=== PATIENT | female | born 1935 | race Caucasian/White ===

== ENCOUNTER 2019-08-03 08:54 | Outpatient (RCR) | payer MEDICARE, OTHER, SELFPAY ==
[2019-05-31 11:25] LABS: Basophils Percent Auto 0.6 % (0.2-1.2); Eosinophils Absolute Auto 0.3 K/mm3 (0-0.3); Eosinophils Percent Auto 3.8 % (0-4.4); Hematocrit 42.1 % (37.0-47.0); Hemoglobin 13.4 g/dL (12.0-15.0); Immature Granulocyte Absolute 0.04 K/mm3 (0.00-0.031); Immature Granulocyte Percent A 0.6 % (0-0.5); Lymphocytes Absolute Auto 0.43 K/mm3 (0.9-3.2); Lymphocytes Percent Auto 6.3 % (18.3-44.2); Mean Corpuscular HGB Conc 31.8 g/dl (32-36); Mean Corpuscular Hemoglobin 32.2 pg (26-34); Mean Corpuscular Volume 101.2 fl (80-100); Mean Platelet Volume 10.7 fl (7.4-10.4); Monocytes Absolute Auto 0.5 K/mm3 (0.1-0.6); Monocytes Percent Auto 7.6 % (2.6-8.5); Neutrophils Absolute Auto 5.6 K/mm3 (1.3-6.7); Neutrophils Percent Auto 81.1 % (45.5-73.1); Platelet Count Result 146 k/mm3 (150-375); Red Blood Count 4.16 M/mm3 (4.2-5.4); Red Cell Distribution Width 12.3 % (11.5-14.5); White Blood Count 6.9 K/mm3 (4.5-10.0)
[2019-05-31 11:32] LABS: Add Urine Microscopic? YES; Appearance Urine Cloudy (Clear); Bacteria Urine Trace /hpf; Bilirubin Urine Negative (Negative); Blood Urine Negative (Negative); Color Urine Yellow (Yellow); Glucose Urine UA Negative (Negative); Ketones Urine Negative (Negative); Leukocyte Esterase Ur 2+ LEU/UL (NEGATIVE); Mucus Urine Rare /lpf; Nitrate Urine Negative (Negative); Protein Urine 2+ mg/dL (Negative); Specific Grav Ur 1.023 (1.001-1.035); Squamous Epithelial Cell Urine Few /hpf (Few); Urobilinogen Urine Negative mg/dL (<2.0); WBC Urine >75 /hpf (0-3)
[2019-05-31 11:44] LABS: Albumin Level 3.9 g/dL (3.5-5.1); Blood Urea Nitrogen 22 mg/dL (7-17); Carbon Dioxide 28 mmol/L (22-30); Chloride 103 mmol/L (98-107); Estimated Glomerular Filt Rate > 60; Glucose 106 mg/dL (65-105); Phosphorus 3.6 mg/dL (2.5-4.5); Potassium 4.4 mmol/L (3.4-5.0); Sodium 138 mmol/L (137-145)
[2019-06-02 01:25] LABS: Tacrolimus Prograf 7.9 mcg/L
[2019-07-05 09:37] LABS: Basophils Percent Auto 0.6 % (0.2-1.2); Eosinophils Absolute Auto 0.2 K/mm3 (0-0.3); Eosinophils Percent Auto 2.4 % (0-4.4); Hemoglobin 13.5 g/dL (12.0-15.0); Immature Granulocyte Absolute 0.03 K/mm3 (0.00-0.031); Immature Granulocyte Percent A 0.4 % (0-0.5); Lymphocytes Absolute Auto 0.72 K/mm3 (0.9-3.2); Lymphocytes Percent Auto 10.3 % (18.3-44.2); Mean Corpuscular HGB Conc 32.1 g/dl (32-36); Mean Corpuscular Hemoglobin 32.8 pg (26-34); Mean Corpuscular Volume 101.9 fl (80-100); Mean Platelet Volume 10.9 fl (7.4-10.4); Monocytes Absolute Auto 0.7 K/mm3 (0.1-0.6); Monocytes Percent Auto 10.3 % (2.6-8.5); Neutrophils Absolute Auto 5.3 K/mm3 (1.3-6.7); Platelet Count Result 144 k/mm3 (150-375); Red Blood Count 4.12 M/mm3 (4.2-5.4); Red Cell Distribution Width 12.4 % (11.5-14.5)
[2019-07-05 09:52] LABS: Alanine Aminotransferase 15 U/L (4-35); Albumin Level 4.1 g/dL (3.5-5.1); Alkaline Phosphatase 164 U/L (38-126); Aspartate Amino Transferase 25 U/L (14-36); Bilirubin,Total 0.5 mg/dL (0.2-1.3); Blood Urea Nitrogen 23 mg/dL (7-17); Carbon Dioxide 25 mmol/L (22-30); Chloride 104 mmol/L (98-107); Cholesterol 140 mg/dL (0-200); Estimated Glomerular Filt Rate > 60; Glucose 88 mg/dL (65-105); HDL Direct 62 mg/dL; Phosphorus 3.3 mg/dL (2.5-4.5); Sodium 139 mmol/L (137-145); Triglycerides 126 mg/dL (<150)
[2019-07-05 10:04] LABS: LDL Cholesterol Direct 59 mg/dL
[2019-07-07 16:52] LABS: Tacrolimus Prograf 7.2 mcg/L
[2019-08-03 09:23] LABS: Basophils Absolute Auto 0.1 K/mm3 (0.0-0.1); Basophils Percent Auto 0.8 % (0.2-1.2); Eosinophils Absolute Auto 0.1 K/mm3 (0-0.3); Eosinophils Percent Auto 2.2 % (0-4.4); Hematocrit 41.1 % (37.0-47.0); Immature Granulocyte Absolute 0.03 K/mm3 (0.00-0.031); Immature Granulocyte Percent A 0.5 % (0-0.5); Lymphocytes Absolute Auto 0.75 K/mm3 (0.9-3.2); Lymphocytes Percent Auto 11.9 % (18.3-44.2); Mean Corpuscular HGB Conc 31.6 g/dl (32-36); Mean Corpuscular Hemoglobin 32.2 pg (26-34); Mean Corpuscular Volume 101.7 fl (80-100); Mean Platelet Volume 10.7 fl (7.4-10.4); Monocytes Absolute Auto 0.6 K/mm3 (0.1-0.6); Monocytes Percent Auto 9.4 % (2.6-8.5); Neutrophils Absolute Auto 4.7 K/mm3 (1.3-6.7); Neutrophils Percent Auto 75.2 % (45.5-73.1); Platelet Count Result 147 k/mm3 (150-375); Red Blood Count 4.04 M/mm3 (4.2-5.4); Red Cell Distribution Width 12.4 % (11.5-14.5); White Blood Count 6.3 K/mm3 (4.5-10.0)
[2019-08-03 09:43] LABS: Alanine Aminotransferase 14 U/L (4-35); Albumin Level 4.1 g/dL (3.5-5.1); Alkaline Phosphatase 133 U/L (38-126); Aspartate Amino Transferase 21 U/L (14-36); Bilirubin,Total 0.7 mg/dL (0.2-1.3); Blood Urea Nitrogen 25 mg/dL (7-17); Calcium 10.1 mg/dL (8.4-10.2); Carbon Dioxide 28 mmol/L (22-30); Chloride 103 mmol/L (98-107); Cholesterol 137 mg/dL (0-200); Estimated Glomerular Filt Rate > 60; Glucose 98 mg/dL (65-105); HDL Direct 61 mg/dL; Phosphorus 3.3 mg/dL (2.5-4.5); Potassium 4.5 mmol/L (3.4-5.0); Sodium 140 mmol/L (137-145); Triglycerides 107 mg/dL (<150)
[2019-08-03 09:54] LABS: LDL Cholesterol Direct 63 mg/dL
== END 2019-08-29 23:59 | disposition home or self-care (01) ==
LOC: ANHLAB 08:54
DX: Z94.0 Kidney transplant status (principal); Z79.899 Other long term (current) drug therapy; N30.80 Other cystitis without hematuria
CPT/HCPCS: 36415; 80053; 80061; 80069; 80197; 81001; 84100; 85025; 87077; 87086; 87088; 87186

== ENCOUNTER 2019-08-30 10:34 | Outpatient (RCR) | payer MEDICARE, OTHER, SELFPAY ==
[2019-08-30 11:33] LABS: Basophils Percent Auto 0.6 % (0.2-1.2); Eosinophils Absolute Auto 0.1 K/mm3 (0-0.3); Eosinophils Percent Auto 2.7 % (0-4.4); Hematocrit 39.5 % (37.0-47.0); Hemoglobin 12.7 g/dL (12.0-15.0); Immature Granulocyte Absolute 0.03 K/mm3 (0.00-0.031); Immature Granulocyte Percent A 0.6 % (0-0.5); Lymphocytes Absolute Auto 0.66 K/mm3 (0.9-3.2); Lymphocytes Percent Auto 12.9 % (18.3-44.2); Mean Corpuscular HGB Conc 32.2 g/dl (32-36); Mean Corpuscular Hemoglobin 32.3 pg (26-34); Mean Corpuscular Volume 100.5 fl (80-100); Mean Platelet Volume 11.1 fl (7.4-10.4); Monocytes Absolute Auto 0.6 K/mm3 (0.1-0.6); Monocytes Percent Auto 11.4 % (2.6-8.5); Neutrophils Absolute Auto 3.7 K/mm3 (1.3-6.7); Neutrophils Percent Auto 71.8 % (45.5-73.1); Platelet Count Result 143 k/mm3 (150-375); Red Blood Count 3.93 M/mm3 (4.2-5.4); Red Cell Distribution Width 12.8 % (11.5-14.5); White Blood Count 5.1 K/mm3 (4.5-10.0)
[2019-08-30 11:46] LABS: Albumin Level 4.1 g/dL (3.5-5.1); Blood Urea Nitrogen 26 mg/dL (7-17); Calcium 9.8 mg/dL (8.4-10.2); Carbon Dioxide 23 mmol/L (22-30); Chloride 103 mmol/L (98-107); Estimated Glomerular Filt Rate 53; Glucose 89 mg/dL (65-105); Phosphorus 3.7 mg/dL (2.5-4.5); Potassium 4.9 mmol/L (3.4-5.0); Sodium 137 mmol/L (137-145)
[2019-08-31 18:41] LABS: Tacrolimus Prograf 5.4 mcg/L
== END 2019-11-28 23:59 | disposition home or self-care (01) ==
LOC: ANHLAB 10:34
DX: E78.5 Hyperlipidemia, unspecified (principal); Z94.0 Kidney transplant status; Z79.899 Other long term (current) drug therapy
CPT/HCPCS: 36415; 80069; 80197; 85025

== ENCOUNTER 2020-01-31 09:54 | Outpatient (RCR) | payer MEDICARE, OTHER, SELFPAY ==
[2019-12-03 09:53] LABS: Basophils Percent Auto 0.6 % (0.2-1.2); Eosinophils Absolute Auto 0.2 K/mm3 (0-0.3); Eosinophils Percent Auto 3.3 % (0-4.4); Hematocrit 42.1 % (37.0-47.0); Hemoglobin 13.6 g/dL (12.0-15.0); Immature Granulocyte Absolute 0.02 K/mm3 (0.00-0.031); Immature Granulocyte Percent A 0.4 % (0-0.5); Lymphocytes Absolute Auto 0.53 K/mm3 (0.9-3.2); Lymphocytes Percent Auto 10.4 % (18.3-44.2); Mean Corpuscular HGB Conc 32.3 g/dl (32-36); Mean Corpuscular Hemoglobin 33.2 pg (26-34); Mean Corpuscular Volume 102.7 fl (80-100); Monocytes Absolute Auto 0.5 K/mm3 (0.1-0.6); Monocytes Percent Auto 10.2 % (2.6-8.5); Neutrophils Absolute Auto 3.8 K/mm3 (1.3-6.7); Neutrophils Percent Auto 75.1 % (45.5-73.1); White Blood Count 5.1 K/mm3 (4.5-10.0)
[2019-12-03 09:59] LABS: Alanine Aminotransferase 15 U/L (4-35); Alkaline Phosphatase 167 U/L (38-126); Aspartate Amino Transferase 27 U/L (14-36); Bilirubin,Total 0.7 mg/dL (0.2-1.3); Blood Urea Nitrogen 22 mg/dL (7-17); Calcium 9.7 mg/dL (8.4-10.2); Carbon Dioxide 24 mmol/L (22-30); Chloride 107 mmol/L (98-107); Cholesterol 141 mg/dL (0-200); Estimated Glomerular Filt Rate > 60; Glucose 87 mg/dL (65-105); HDL Direct 62 mg/dL; Phosphorus 2.8 mg/dL (2.5-4.5); Potassium 4.3 mmol/L (3.4-5.0); Sodium 138 mmol/L (137-145); Triglycerides 143 mg/dL (<150)
[2019-12-03 10:10] LABS: LDL Cholesterol Direct 56 mg/dL
[2019-12-06 06:29] LABS: Tacrolimus Prograf 5.5 mcg/L
[2019-12-31 10:23] LABS: Basophils Percent Auto 0.7 % (0.2-1.2); Eosinophils Absolute Auto 0.1 K/mm3 (0-0.3); Eosinophils Percent Auto 2.3 % (0-4.4); Hematocrit 40.2 % (37.0-47.0); Immature Granulocyte Absolute 0.03 K/mm3 (0.00-0.031); Immature Granulocyte Percent A 0.5 % (0-0.5); Lymphocytes Percent Auto 13.3 % (18.3-44.2); Mean Corpuscular HGB Conc 32.3 g/dl (32-36); Mean Corpuscular Hemoglobin 32.6 pg (26-34); Mean Corpuscular Volume 100.8 fl (80-100); Mean Platelet Volume 10.5 fl (7.4-10.4); Monocytes Absolute Auto 0.7 K/mm3 (0.1-0.6); Monocytes Percent Auto 11.3 % (2.6-8.5); Neutrophils Absolute Auto 4.3 K/mm3 (1.3-6.7); Neutrophils Percent Auto 71.9 % (45.5-73.1); Platelet Count Result 140 k/mm3 (150-375); Red Blood Count 3.99 M/mm3 (4.2-5.4); Red Cell Distribution Width 11.9 % (11.5-14.5)
[2019-12-31 10:32] LABS: Alanine Aminotransferase 13 U/L (4-35); Albumin Level 3.9 g/dL (3.5-5.1); Alkaline Phosphatase 135 U/L (38-126); Aspartate Amino Transferase 24 U/L (14-36); Bilirubin,Total 0.5 mg/dL (0.2-1.3); Blood Urea Nitrogen 27 mg/dL (7-17); Calcium 9.4 mg/dL (8.4-10.2); Carbon Dioxide 28 mmol/L (22-30); Chloride 105 mmol/L (98-107); Cholesterol 136 mg/dL (0-200); Estimated Glomerular Filt Rate 60; Glucose 96 mg/dL (65-105); HDL Direct 60 mg/dL; Phosphorus 3.4 mg/dL (2.5-4.5); Potassium 4.6 mmol/L (3.4-5.0); Sodium 136 mmol/L (137-145); Triglycerides 143 mg/dL (<150)
[2019-12-31 10:43] LABS: LDL Cholesterol Direct 56 mg/dL
[2020-01-04 00:10] LABS: Tacrolimus Prograf 5.2 mcg/L
[2020-01-31 10:37] LABS: Basophils Absolute Auto 0.1 K/mm3 (0.0-0.1); Basophils Percent Auto 1.4 % (0.2-1.2); Eosinophils Absolute Auto 0.1 K/mm3 (0-0.3); Eosinophils Percent Auto 2.3 % (0-4.4); Hematocrit 40.5 % (37.0-47.0); Hemoglobin 13.2 g/dL (12.0-15.0); Immature Granulocyte Absolute 0.03 K/mm3 (0.00-0.031); Immature Granulocyte Percent A 0.6 % (0-0.5); Immature Platelet Fraction Pct 3.3 % (0.9-11.2); Lymphocytes Absolute Auto 0.88 K/mm3 (0.9-3.2); Lymphocytes Percent Auto 17.1 % (18.3-44.2); Mean Corpuscular HGB Conc 32.6 g/dl (32-36); Mean Corpuscular Hemoglobin 32.9 pg (26-34); Monocytes Absolute Auto 0.6 K/mm3 (0.1-0.6); Monocytes Percent Auto 12.2 % (2.6-8.5); Neutrophils Absolute Auto 3.4 K/mm3 (1.3-6.7); Neutrophils Percent Auto 66.4 % (45.5-73.1); Platelet Count Result 137 k/mm3 (150-375); Red Blood Count 4.01 M/mm3 (4.2-5.4); Red Cell Distribution Width 12.2 % (11.5-14.5); White Blood Count 5.2 K/mm3 (4.5-10.0)
[2020-01-31 10:49] LABS: Alanine Aminotransferase 16 U/L (4-35); Albumin Level 3.8 g/dL (3.5-5.1); Alkaline Phosphatase 137 U/L (38-126); Anion Gap 10.3 mmol/L (7-16); Aspartate Amino Transferase 27 U/L (14-36); Bilirubin,Total 0.6 mg/dL (0.2-1.3); Blood Urea Nitrogen 27 mg/dL (7-17); Calcium 9.7 mg/dL (8.4-10.2); Carbon Dioxide 24 mmol/L (22-30); Chloride 106 mmol/L (98-107); Cholesterol 134 mg/dL (0-200); Estimated Glomerular Filt Rate > 60; Glucose 90 mg/dL (65-105); HDL Direct 61 mg/dL; Phosphorus 3.6 mg/dL (2.5-4.5); Potassium 4.3 mmol/L (3.4-5.0); Sodium 136 mmol/L (137-145); Triglycerides 117 mg/dL (<150)
[2020-01-31 11:00] LABS: LDL Cholesterol Direct 54 mg/dL
[2020-02-05 11:35] LABS: Tacrolimus Prograf 6.1 mcg/L
== END 2020-03-02 23:59 | disposition home or self-care (01) ==
LOC: ANHLAB 09:54
DX: E78.5 Hyperlipidemia, unspecified (principal); Z94.0 Kidney transplant status; Z79.899 Other long term (current) drug therapy
CPT/HCPCS: 36415; 80053; 80061; 80069; 80197; 84100; 85025; 85055

== ENCOUNTER 2020-03-03 09:13 | Outpatient (RCR) | payer MEDICARE, OTHER, SELFPAY ==
[2020-03-03 10:14] LABS: Basophils Percent Auto 0.7 % (0.2-1.2); Eosinophils Absolute Auto 0.2 K/mm3 (0-0.3); Immature Granulocyte Absolute 0.03 K/mm3 (0.00-0.031); Immature Granulocyte Percent A 0.5 % (0-0.5); Lymphocytes Absolute Auto 0.71 K/mm3 (0.9-3.2); Lymphocytes Percent Auto 12.5 % (18.3-44.2); Mean Corpuscular HGB Conc 33.3 g/dl (32-36); Mean Corpuscular Hemoglobin 33.5 pg (26-34); Mean Corpuscular Volume 100.5 fl (80-100); Mean Platelet Volume 9.9 fl (7.4-10.4); Monocytes Absolute Auto 0.7 K/mm3 (0.1-0.6); Monocytes Percent Auto 11.8 % (2.6-8.5); Neutrophils Percent Auto 71.5 % (45.5-73.1); Platelet Count Result 183 k/mm3 (150-375); Red Blood Count 3.88 M/mm3 (4.2-5.4); Red Cell Distribution Width 11.9 % (11.5-14.5); White Blood Count 5.7 K/mm3 (4.5-10.0)
[2020-03-03 10:26] LABS: Albumin Level 3.6 g/dL (3.5-5.1); Anion Gap 7 mmol/L (8-16); Blood Urea Nitrogen 24 mg/dL (7-17); Calcium 9.5 mg/dL (8.4-10.2); Carbon Dioxide 25 mmol/L (22-30); Chloride 105 mmol/L (98-107); Estimated Glomerular Filt Rate 60; Glucose 105 mg/dL (65-105); Phosphorus 3.1 mg/dL (2.5-4.5); Potassium 4.1 mmol/L (3.4-5.0); Sodium 137 mmol/L (137-145)
[2020-03-06 08:33] LABS: Tacrolimus Prograf 5.3 mcg/L
== END 2020-06-01 23:59 | disposition home or self-care (01) ==
LOC: ANHLAB 09:13
PROVIDERS: PCP Internal Medicine
DX: E78.5 Hyperlipidemia, unspecified (principal); Z94.0 Kidney transplant status; Z79.899 Other long term (current) drug therapy
CPT/HCPCS: 36415; 80069; 80197; 85025

== ENCOUNTER 2020-03-19 14:59 | Emergency (ER) | payer MEDICARE, OTHER, SELFPAY ==
--- NOTE | ~2020-03-19 | CT_ITS ---
EXAMINATION: CT cervical spine wo con EXAM DATE: 03/19/2020 15:49 INDICATION: Fall, neck pain. TECHNIQUE: Spiral CT of the cervical spine was performed without contrast. Axial images were reviewe d. Coronal and sagittal reformatted images were also reviewed. The dose-length product (DLP) for thi s examination was 151.29 mGy-cm. The exposure was tailored according to patient size (auto mA exposu re control), and iterative reconstruction (ASIR) was used as additional dose reduction technique. ere is no prior study for comparison. FINDINGS: There is acute C2 fracture extending from the left lateral mass inferiorly to the right proctor gustavo, with about 5 mm distraction at the left lateral mass. Fracture extends into the C2 right transve rse foramen, for which a CT angiogram carotid arteries is indicated to exclude vertebral artery injur y/dissection. C1 is intact, and there are no other cervical fractures identified. This is a closed po sttraumatic finding, unstable and neurosurgical consult is indicated. IMPRESSION: Acute C2 fracture from left lateral mass through the right lamina and into the right oquendo sverse foramina; unstable type injury. Neurosurgical consult and carotid CT angiogram indicated. I discussed these findings with Daisy Faith MD at 03/19/2020 16:01 CDT. Reviewed, dictated and finalized at location A. IMPRESSION: Acute C2 fracture from left lateral mass through the right lamina a nd into the right transverse foramina; unstable type injury. Neurosurgical cons ult and carotid CT angiogram indicated. I discussed these findings with Daisy Faith MD at 03/19/2020 16:01 CDT.
--- NOTE | ~2020-03-19 | CT_ITS ---
EXAMINATION: CT brain wo con DATE: 03/19/2020 15:49 INDICATION: Head and neck pain. Fall. TECHNIQUE: Computed tomography (CT) of the head was performed without intravenous contrast. The mA wa s adjusted according to patient size. Iterative reconstruction technique was employed. The dose-lengt h product was 605.33 mGy-cm. COMPARISON: Head CT 07/08/2012 FINDINGS: There is an old lacunar infarct in left caudate nucleus. There are scattered areas of low a ttenuation in the cerebral white matter. There is no intracranial hemorrhage, acute infarction, or ab normal intracranial mass lesion. The ventricles are normal in size. There are likely changes of ocula r lens replacement surgeries. There are bilateral optic nerve drusen. The paranasal sinuses are clear . The mastoid air cells are normal. IMPRESSION: 1. 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 2. Worsened moderate nonspecific cerebral white matter disease, which likely represents chronic small vessel ischemic disease. Reviewed, dictated and finalized at location A. IMPRESSION: 1. 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 2. Worsened moderate nonspecific cerebral white matter disease, which likely re presents chronic small vessel ischemic disease.
[2020-03-19 15:07] VITALS: BP 208/89; PULSE 68; RESP 20; TEMP 36.1; O2SAT 98
--- NOTE | 2020-03-19 16:27 | ED.GENADULT ---
HPI - General Adult General Chief complaint: Head Injury Stated complaint: fall/neck pain Time Seen by Provider: 03/19/20 15:59 Source: patient History of Present Illness HPI narrative: Patient is a 85 y/o female complaining of fall approximately 2 hours ago. She states that she fell in the bed room. She has some headache, neck pain and left hand pain. She describes her pain as aching and rates it as 7/10. There is no alleviating or exacerbating factor. She has has no focal weakness or numbness. She is able to ambulate after the fall. Related Data Home Medications Medication Instructions Recorded Confirmed acyclovir 200 mg capsule 200 mg PO DAILY cap 12/22/19 02/07/20 amlodipine 10 mg tablet 10 mg PO DAILY 12/22/19 02/07/20 ascorbic acid (vitamin C) 1,000 mg 1 gm PO DAILY 12/22/19 02/07/20 tablet aspirin 81 mg tablet,delayed 81 mg PO DAILY 12/22/19 02/07/20 release biotin 1,000 mcg chewable tablet 2,000 mcg PO DAILY tablet 12/22/19 02/07/20 cephalexin 500 mg tablet 500 mg PO DAILY tablet 12/22/19 02/07/20 denosumab 60 mg/mL subcutaneous 60 mg SUB-Q [id number] 12/22/19 02/07/20 syringe ergocalciferol (vitamin D2) 50 mcg 50 mcg PO DAILY 12/22/19 02/07/20 (2,000 unit) capsule levothyroxine 100 mcg tablet 100 mcg PO DAILY 12/22/19 02/07/20 lisinopril 10 mg tablet 10 mg PO DAILY 12/22/19 02/07/20 mecobalamin (vitamin B12) 1,000 1,000 mcg PO DAILY 12/22/19 02/07/20 mcg chewable tablet metoprolol tartrate 25 mg tablet 25 mg PO BID tablet 12/22/19 02/07/20 metoprolol tartrate 50 mg tablet 50 mg PO Q12H 12/22/19 02/07/20 oxybutynin chloride 10 mg 10 mg PO DAILY 12/22/19 02/07/20 tablet,extended release 24 hr prednisone 5 mg tablet 5 mg PO DAILY 12/22/19 02/07/20 sodium bicarbonate 325 mg tablet 325 mg PO DAILY 12/22/19 02/07/20 sulfamethoxazole 800 1 tablet PO DAILY tablet 12/22/19 02/07/20 mg-trimethoprim 160 mg tablet tacrolimus 1 mg capsule 2 mg PO DAILY cap 12/22/19 02/07/20 Allergies Allergy/AdvReac Type Severity Reaction Status Date / Time codeine Allergy Unknown Unknown Verified 03/19/20 15:59 nitrofurantoin Allergy Unknown Unknown Verified 03/19/20 15:59 tetracycline Allergy Unknown Dizziness Verified 03/19/20 15:59 CEPHALEXIN MONOHYDRATE Allergy Unknown Unknown Uncoded 03/19/20 15:59 NITROFURANTOIN MACROCRYSTAL Allergy Unknown Unknown Uncoded 03/19/20 15:59 Review of Systems Constitutional: Constitutional: Denies chills, Denies fever(s), Reports headache(s) and Denies weakness Eyes: Eyes: Denies blurry vision ENT: Reports headache(s) and Denies neck pain Cardiovascular: Cardiovascular: Denies chest pain and Denies dyspnea Respiratory: Respiratory: Denies cough and Denies dyspnea Gastrointestinal: Gastrointestinal: Denies abdominal pain, Denies diarrhea, Denies nausea and Denies vomiting Genitourinary: Genitourinary: Denies hematuria and Denies dysuria Musculoskeletal: Musculoskeletal: Denies back pain and Reports neck pain Neurologic: Reports headache(s) and Denies weakness PMFSH Past Medical History Medical History Blood clotting disorder Hyperlipidemia Hypertension Osteoporosis Surgical History Surgical History H/O cataract extraction Kidney replaced by transplant Family History Family History Mother , Age 67 Pancreatic Cancer No problems noted. Father , Age 63 OR No problems noted. Grandparent , Renal Disease No problems noted. Grandparent , Unknown No problems noted. Grandparent , Age 85 Stroke No problems noted. Grandparent , Age 84 Unknown Cause No problems noted. Sibling , Age 86 Stroke. No problems noted. Social History Social History (Reviewed 03/19/20
[2020-03-19 16:50] VITALS: BP 206/101; PULSE 88; RESP 22; O2SAT 98
[2020-03-19 16:59] LABS: Basophils Percent Auto 0.3 % (0.2-1.2); Eosinophils Percent Auto 0.3 % (0-4.4); Hematocrit 40.5 % (37.0-47.0); Hemoglobin 13.6 g/dL (12.0-15.0); Immature Granulocyte Absolute 0.04 K/mm3 (0.00-0.031); Immature Granulocyte Percent A 0.5 % (0-0.5); Lymphocytes Absolute Auto 0.43 K/mm3 (0.9-3.2); Lymphocytes Percent Auto 5.5 % (18.3-44.2); Mean Corpuscular HGB Conc 33.6 g/dl (32-36); Mean Corpuscular Hemoglobin 33.3 pg (26-34); Mean Platelet Volume 10.8 fl (7.4-10.4); Monocytes Absolute Auto 0.5 K/mm3 (0.1-0.6); Monocytes Percent Auto 5.7 % (2.6-8.5); Neutrophils Absolute Auto 6.9 K/mm3 (1.3-6.7); Neutrophils Percent Auto 87.7 % (45.5-73.1); Platelet Count Result 141 k/mm3 (150-375); Red Blood Count 4.09 M/mm3 (4.2-5.4); Red Cell Distribution Width 12.2 % (11.5-14.5); White Blood Count 7.8 K/mm3 (4.5-10.0)
[2020-03-19 17:08] LABS: INR 1.1
[2020-03-19 17:09] LABS: Partial Thromboplastin Time 27.7 SECONDS (22.3-36.8)
[2020-03-19 17:13] VITALS: BP 179/101; PULSE 81; RESP 14; O2SAT 97
[2020-03-19 17:13] LABS: Anion Gap 6 mmol/L (8-16); Blood Urea Nitrogen 27 mg/dL (7-17); Calcium 9.8 mg/dL (8.4-10.2); Carbon Dioxide 24 mmol/L (22-30); Chloride 105 mmol/L (98-107); Estimated CRCL calculation 37 ml/min; Estimated Glomerular Filt Rate > 60; Glucose 148 mg/dL (65-105); Potassium 4.7 mmol/L (3.4-5.0); Sodium 135 mmol/L (137-145)
--- NOTE | 2020-03-19 17:27 | PC.NURSE ---
contacted [facility] and [facility] for transportation. both declined. [facility] accepted and has an eta of 1830
[2020-03-19 17:53] VITALS: BP 189/75; PULSE 80; RESP 17; O2SAT 98
--- NOTE | 2020-03-19 18:16 | PC.NURSE ---
PT FAMILY AT DESK ASKING FOR MORE PAIN MEDICATION, SPOKE WITH OFE HERNANDEZ, VERBAL ORDER GIVEN FOR 25 MCG FENTANYL STAT.
[2020-03-19 18:54] VITALS: BP 180/83; PULSE 83; RESP 17; O2SAT 98
[2020-03-19 19:34] VITALS: BP 180/88; PULSE 87; RESP 17; O2SAT 98
== END 2020-03-19 20:05 | disposition short-term general hospital (02) ==
PROVIDERS: Emergency Provider Emergency Medicine; PCP Internal Medicine
DX: S12.101A Unspecified nondisplaced fracture of second cervical vertebra, initial encounter for closed fracture (principal); W19.XXXA Unspecified fall, initial encounter; S60.512A Abrasion of left hand, initial encounter; E78.5 Hyperlipidemia, unspecified; I10 Essential (primary) hypertension; M81.0 Age-related osteoporosis without current pathological fracture; D75.9 Disease of blood and blood-forming organs, unspecified; Z94.0 Kidney transplant status; Z98.49 Cataract extraction status, unspecified eye; Z79.82 Long term (current) use of aspirin
CPT/HCPCS: 36415; 70450; 72125; 80048; 85025; 85610; 85730; 96374; 96376; 99285; J3010; L0140

== ENCOUNTER 2020-03-28 14:55 | IRF | payer MEDICARE, OTHER, SELFPAY ==
--- NOTE | ~2020-03-28 | CT_ITS ---
EXAMINATION: CT cervical spine wo con DATE: 03/31/2020 10:42 INDICATION: Follow-up fracture TECHNIQUE: Computed tomography (CT) of the cervical spine was performed without intravenous contrast. The dose-length product was 100.44 mGy-cm. Automated exposure control and iterative reconstruction t echnique were employed. COMPARISON: CT dated 03/19/2020 FINDINGS: There is a subacute C2 fracture extending from the left lateral mass inferiorly into the ri ght lamina. Fracture extends into the right C2 transverse foramen. No significant change to alignment For differences of technique there is mild-moderate multilevel left-sided facet hypertrophy. C1 is in tact. Moderate degenerative changes at C5-6. Lung apices are unremarkable. Craniovertebral junction w ithin normal limits. IMPRESSION: 1. Stable alignment of subacute C2 fracture allowing for differences of technique. This is an unstabl e fracture. Consider correlation with carotid CT angiogram as clinically warranted. Reviewed, dictated and finalized at location A. IMPRESSION: 1. Stable alignment of subacute C2 fracture allowing for differences of techniq ue. This is an unstable fracture. Consider correlation with carotid CT angiogra m as clinically warranted.
--- NOTE | 2020-03-28 15:26 | ADMGEN ---
This patient, Juliet Dunlap, was admitted to [facility] Room 225-01. Patient/family oriented to hospital policies and general routines including ID bracelet, bed and alarms, visiting hours, pain management, procedures, bathroom and other care routines, personal items, smoking policy, room service/diet, and visiting hours. Valuables list has been completed. Information on how to activate the Rapid Response Team has been discussed. Patient/Family are encouraged to report perceived risks to care and to ask questions if they do not understand what they are told or what they should do. arrived via ambulance, report from drivers, patient stable during transport last b/p
[2020-03-28 16:12] VITALS: BP 144/65; PULSE 78; RESP 20; TEMP 36.2; O2SAT 97; BMI 24.7
[2020-03-28 20:05] VITALS: BMI 24.7
[2020-03-28 20:15] VITALS: PULSE 75; RESP 18; O2SAT 96
[2020-03-28] MEDS: ENOXAPARIN 30 MG/0.3 ML SYRINGE SUB-Q (21:06)
[2020-03-28 21:07] VITALS: PULSE 76
[2020-03-28] MEDS: METOPROLOL TARTRATE 25 MG TABLET 75 MG PO (21:07)
[2020-03-28] MEDS: PRAVASTATIN SODIUM 20 MG TABLET PO (21:09)
[2020-03-28] MEDS: TRIMETHOPRIM 100 MG TABLET PO (21:11)
[2020-03-28] MEDS: traMADol HCL (*CRX) 50 MG TABLET PO (21:17)
[2020-03-28 22:00] VITALS: BP 150/67; PULSE 75; RESP 18; TEMP 36.1; O2SAT 96
[2020-03-29] MEDS: ACETAMINOPHEN 500 MG TABLET 1000 MG PO ×4 (00:09→17:37)
[2020-03-29] MEDS: traMADol HCL (*CRX) 50 MG TABLET PO (02:44)
[2020-03-29 05:21] LABS: Basophils Absolute Auto 0.1 K/mm3 (0.0-0.1); Basophils Percent Auto 0.9 % (0.2-1.2); Eosinophils Absolute Auto 0.2 K/mm3 (0-0.3); Eosinophils Percent Auto 3.4 % (0-4.4); Hematocrit 43.6 % (37.0-47.0); Hemoglobin 14.3 g/dL (12.0-15.0); Immature Granulocyte Absolute 0.09 K/mm3 (0.00-0.031); Immature Granulocyte Percent A 1.4 % (0-0.5); Lymphocytes Absolute Auto 0.63 K/mm3 (0.9-3.2); Lymphocytes Percent Auto 9.9 % (18.3-44.2); Mean Corpuscular HGB Conc 32.8 g/dl (32-36); Mean Corpuscular Hemoglobin 33.3 pg (26-34); Mean Corpuscular Volume 101.4 fl (80-100); Mean Platelet Volume 10.6 fl (7.4-10.4); Monocytes Absolute Auto 0.8 K/mm3 (0.1-0.6); Monocytes Percent Auto 11.9 % (2.6-8.5); Neutrophils Absolute Auto 4.6 K/mm3 (1.3-6.7); Neutrophils Percent Auto 72.5 % (45.5-73.1); Platelet Count Result 161 k/mm3 (150-375); Red Cell Distribution Width 12.2 % (11.5-14.5); White Blood Count 6.4 K/mm3 (4.5-10.0)
[2020-03-29 05:39] LABS: Anion Gap 7 mmol/L (8-16); Blood Urea Nitrogen 35 mg/dL (7-17); Calcium 9.8 mg/dL (8.4-10.2); Carbon Dioxide 21 mmol/L (22-30); Chloride 104 mmol/L (98-107); Estimated CRCL calculation 33 ml/min; Estimated Glomerular Filt Rate 60; Glucose 90 mg/dL (65-105); Potassium 4.9 mmol/L (3.4-5.0); Sodium 132 mmol/L (137-145)
[2020-03-29 06:00] VITALS: BP 149/78; PULSE 74; RESP 20; TEMP 36.5; O2SAT 100
[2020-03-29] MEDS: LEVOTHYROXINE SODIUM 100 MCG TABLET PO (06:44)
[2020-03-29 09:30] VITALS: PULSE 86; RESP 18; O2SAT 96
[2020-03-29 09:35] VITALS: PULSE 72
[2020-03-29] MEDS: GABAPENTIN 300 MG CAPSULE PO ×2 (09:35→17:37)
[2020-03-29] MEDS: METOPROLOL TARTRATE 25 MG TABLET 75 MG PO ×2 (09:35→21:05)
[2020-03-29] MEDS: SENNA/DOCUSATE SODIUM TABLET 2 TAB PO ×2 (09:36→17:37)
[2020-03-29] MEDS: CHOLECALCIFEROL 1,000 UNITS TABLET 2000 UNITS PO (09:36)
[2020-03-29] MEDS: ENOXAPARIN 30 MG/0.3 ML SYRINGE SUB-Q ×2 (09:36→21:05)
[2020-03-29] MEDS: ACYCLOVIR 200 MG CAPSULE PO ×2 (09:37→17:36)
[2020-03-29] MEDS: lisinopriL 10 MG TABLET PO (09:37)
[2020-03-29] MEDS: ASPIRIN 81 MG ENTERIC TABLET PO (09:37)
[2020-03-29] MEDS: predniSONE 5 MG TABLET PO (09:37)
[2020-03-29] MEDS: LIDOCAINE 5% PATCH 2 PATCH TOPICAL (09:37)
[2020-03-29] MEDS: polyethylene glycoL 3350 17 GM POWD.PACK PO (09:38)
--- NOTE | 2020-03-29 11:02 | PM.IMHP ---
H&P: HPI History of Present Illness Date/Time: 03/29/20 11:02 Chief complaint: Cervical fracture Narrative: Juliet Dunlap is a 85 year old female very pleasant right-handed woman who is admitted because of spinal cord dysfunction/traumatic The etiologic diagnosis traumatic C2 comminuted vertebral body fracture with extension to bilateral masses and right pedicle. The patient was seen [id number] on March 29, 2020 at 10:00 a.m. 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 She was noted to be neurologically intact. Head CT reported no acute abnormality. Upon presentation the patient was evaluated by the orthopedic spine surgeon who recommended non operative management with a [place] J collar. She has been placed on strict cervical precautions. CTA demonstrated no large vessel occlusion or vascular injury. Renal transplant was consulted and home medications were continued. Medical complication including hypertension, hypoxemia, shortness of breath, positive urine culture / UTI in acute pain. Patient remains awake alert her well oriented and quite with it she will be discharged to [facility] on Lovenox for DVT prophylaxis. The patient is to follow up with the ortho spine in approximately 1 week for repeat his cervical spine CT. The patient has not traveled outside the [place] or had contact with someone who is ill that has traveled outside the use of the planned post past 21 days. The patient has not traveled an area of the [place] that is experiencing no transmission of the Coronavirus and has not had close personal contact with anyone that has. The patient does not have a fever. The patient is not experiencing lower respiratory symptoms. The therapy was initiated at the acute care facility and the patient transferred to from [facility] on March 28, 2020 The patient has had no major surgery in the 100 days prior to admission. The patient has had a fall in the past year. The patient has had fall with injury in the past year. Next Past medical history end-stage renal disease due to vasculitis status post donor transplant in February of 2013, coronary artery disease, hypertension, hyperlipidemia, hypothyroidism, and hepatitis-B. Past surgical history donor renal transplant in February of 2013 next Social history Patient lives with spouse in a 2 story home with the bed bath upstairs. There is to steps without 0s to enter the home and told to 15 steps to 2nd floor. Patient was independent with all ADLs and IADLs less and mobility without assistive device. The patient and her shared home making tasks. Have hired a clinic services twice a month. The patient patient was able to drive. 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 Patient had 1 fall out of bed resulting in current admission. Family history It will be obtained from talking to the family members at this time is not available Prior level function was independent in all spheres of life the patient is walking more than 100 more than 750 feet and walked independently stairs at home Current level function. Eating is set up, oral care is partial moderate, toileting hygiene is partial moderate, shower bath is partial moderate, Sineff bodies partial moderate, lower body substantial maximal, foot very substantial maximal, rolling left and right is partial moderate, sit to lying is partial moderate, lying to sitting is partial moderate, sit to stand is partial moderate, with to chair transfers is partial moderate, toilet transfers are partial moderate, the patien
[2020-03-29] MEDS: CYANOCOBALAMIN 250 MCG TABLET PO (12:54)
[2020-03-29 14:00] VITALS: BP 151/69; PULSE 89; RESP 18; TEMP 36.3; O2SAT 96
[2020-03-29 14:24] VITALS: BMI 24.7
[2020-03-29 21:05] VITALS: PULSE 88
[2020-03-29] MEDS: TRIMETHOPRIM 100 MG TABLET PO (21:06)
[2020-03-29] MEDS: PRAVASTATIN SODIUM 20 MG TABLET PO (21:06)
[2020-03-29 22:00] VITALS: BP 141/73; PULSE 70; RESP 16; TEMP 36.2; O2SAT 100
--- NOTE | 2020-03-29 23:40 | PC.NURSE ---
pt refused midnight tylenol at this time. states she is not hurting at this time. md updated. will continue to monitor.
[2020-03-30] MEDS: traMADol HCL (*CRX) 50 MG TABLET PO ×2 (02:59→09:10)
[2020-03-30] MEDS: LEVOTHYROXINE SODIUM 100 MCG TABLET PO (05:44)
[2020-03-30] MEDS: ACETAMINOPHEN 500 MG TABLET 1000 MG PO ×3 (05:44→17:44)
[2020-03-30 05:51] VITALS: BP 151/86; PULSE 80; RESP 16; TEMP 35.9; O2SAT 97
[2020-03-30] MEDS: ENOXAPARIN 30 MG/0.3 ML SYRINGE SUB-Q ×2 (09:06→20:01)
[2020-03-30 09:07] VITALS: PULSE 76
[2020-03-30] MEDS: polyethylene glycoL 3350 17 GM POWD.PACK PO (09:07)
[2020-03-30] MEDS: METOPROLOL TARTRATE 25 MG TABLET 75 MG PO ×2 (09:07→20:02)
[2020-03-30] MEDS: LIDOCAINE 5% PATCH 2 PATCH TOPICAL (09:07)
[2020-03-30] MEDS: SENNA/DOCUSATE SODIUM TABLET 2 TAB PO ×2 (09:07→17:44)
[2020-03-30] MEDS: ACYCLOVIR 200 MG CAPSULE PO ×2 (09:07→17:43)
[2020-03-30] MEDS: lisinopriL 10 MG TABLET PO (09:08)
[2020-03-30] MEDS: ASPIRIN 81 MG ENTERIC TABLET PO (09:08)
[2020-03-30] MEDS: predniSONE 5 MG TABLET PO (09:08)
[2020-03-30] MEDS: GABAPENTIN 300 MG CAPSULE PO ×2 (09:08→17:44)
[2020-03-30] MEDS: CYANOCOBALAMIN 250 MCG TABLET PO (09:08)
[2020-03-30] MEDS: CHOLECALCIFEROL 1,000 UNITS TABLET 2000 UNITS PO (09:08)
--- NOTE | 2020-03-30 10:35 | RPD ---
INDIVIDUALIZED PLAN OF CARE FOR Juliet Dunlap Brief Synthesis of Pre-Admission Screen, Post-Admission Evaluation and Therapy Evaluations: The patient presents to rehab with a traumatic C2 comminuted vertebral body fracture with extension to bilateral masses and right pedicle. Comorbidities include C1-C2 facet injury, C1-C2 interspinous ligament injury, T2/T3 vertebral body fracture, s/p fall, trace epidural hematoma, acute pain due to trauma, end-stage renal disease, history of p-ANCA vasculitis s/p -donor renal transplant (02/2013), UTI, hypertension, CAD, HLD, hypothyroidism, hepatitis B (HBV). The complexity of the patient's medical management, nursing, and therapy needs require an inpatient rehab hospital stay with a physician-led interdisciplinary team approach. The patient?s needs will be best met in an intensive program vs. at a lower level of care. The patient requires physician services for medical oversight, management of medical complications in setting of present comorbidities, and pain management. The patient requires nursing services for DVT prophylactics, infection protection, medication management and education, pressure relief, and wound care. Deficits include:ADLs, Balance, Endurance, Family Training/Education, Mobility, Pain Management, ROM, Safety, Strength, and Transfers. Aquac[employer] Worker Supervisor/Case Management for: Discharge Planning and Patient/Family Counseling Physical Therapy: 5 days per week for 75 minutes. Treatments may include: Therapeutic Exercise, Gait Training, Neuromuscular Re-education, Transfer Training, Community Reintegration, Bed Mobility, Patient/Family Education, Wheelchair Mobility Group Therapy/Concurrent Therapy Rationales: -Improve attention span during functional activities in a distracted environment. -Enhance problem solving and/or adequate judgment skills during functional activities in a distracted environment. -Promote increased safety awareness in a distracted environment to reduce fall risk with functional tasks, transfers, and ambulation to allow a more safe, self-sufficient return to the home environment. -Improve dynamic balance skills to promote safety and independence with functional activities in a distracted environment for maximum gain. Occupational Therapy: 5 days per week for 75 minutes. Treatments may include: Therapeutic Exercise, Therapeutic Activity, Cognitive Training, Self-Care Transfer Training, Community Reintegration, Home Management, Patient/Family Education, Wheelchair Mobility Training, Energy Conservation Training Group Therapy/Concurrent Therapy Rationales: -Allow therapist to observe and teach generalization and carry-over of skills learned in individual therapy. -Enhance problem solving and sequencing skills during therapeutic activities in a distracted environment. -Promote increased safety awareness in a realistic setting to reduce fall risk with functional tasks due to visual and verbal distractions. -Increase functional level with ADLs, ADL transfers and use of adaptive equipment through therapeutic activities with others while promoting safety to allow a more safe, self-sufficient return home. Speech Therapy: 5 days per week for 30 minutes. Treatments may include: Dysphasia Therapy, Speech/Language/Communication Therapy, Cognitive Training, Patient/Family Education Group Therapy/Concurrent Therapy - Rationale: -Allow therapist to observe and teach generalization and carry-over of skills learned in individual therapy. -Improve comprehension skills with complex or abstract ideas through discussion in a realistic setting. -Enhance problem solving skills with complex issues during activities in a distracted environment. -Promote increased memory skills and concentration in a distracted environment for a safe transition home. -Improve attention and focus with language/communication skills in a realistic and supportive therapeutic setting. -Allow for practice of expression of basic
--- NOTE | 2020-03-30 12:13 | PHAR ---
HOME MED VERIFIED TACROLIMUS 1MG CAPSULE TWICE DAILY
--- NOTE | 2020-03-30 12:38 | WPDNEURORHBP ---
Subjective Date/time seen: 03/30/20 12:38 Interval history: this 85-year-old woman is here status post cervical vertebral fractures with [place] J collar she is doing fairly decently and rehab The patient is status post renal transplant and is on immunosuppressive therapy including prednisone and Tacrolimus Our nurse has checked with [facility] they would like us to do the level of the immunosuppressive drug as above and go from there The patient denies any headache nausea vomiting chest pain shortness of breath she denies any paresthesias in upper lower extremities her weakness is improving and she is cooperative quite alert and engage in therapy Review of Systems Review of Systems: All systems reviewed & are unremarkable except as noted in HPI and below Functional Status Ambulation Ability Ability to Ambulate 10 Feet: Standby Assistance Ability to Ambulate 50 Feet With 2 Turns: Standby Assistance Ability to Ambulate 150 Feet: Contact Guard Ambulation Assistive Devices: Walker, Wheeled Transfers Ability Ability to Transfer In/Out of Chair: Contact Guard Exam Const: General: comfortable and no acute distress HENMT: General nose exam: Normal nares present Mouth: Yes moist mucous membranes Eyes: General: appearance normal, both eyes and all related structures Neck: Neck: supple and no JVD Other: she has a [place] J collar on and of course the limited range of motions of the neck as it is desirable and in fact imperative Resp: Effort & Inspection: normal respiratory effort Auscultation: clear to auscultation bilaterally Cardio: Rate: regular rate Rhythm: regular rhythm GI: GI Palp: Yes Soft to palpation Auscultation: normal bowel sounds Skin: General skin exam: normal color and no rashes or lesions noted Neuro: Other: patient is awake and alert well oriented follows all commands and apart from limited range of motions of the neck related to the cervical fractures mentioned above and generalized weakness she has decently intact from the neurological standpoint Extrem: General: normal to inspection Psych: Mental Status: mental status grossly normal Objective Data Vital Signs Vital Signs: Vital Signs - 24 hr 03/29/20 14:00 03/29/20 21:05 03/29/20 22:00 Temperature 36.3 C L 36.2 C L Pulse Rate 89 88 70 Respiratory Rate 18 16 Blood Pressure 151/69 H 141/73 H Pulse Oximetry 96 100 03/30/20 05:51 03/30/20 09:07 Temperature 35.9 C L Pulse Rate 80 76 Respiratory Rate 16 Blood Pressure 151/86 H Pulse Oximetry 97 Intake/Output Intake/Output: Intake & Output 03/27/20 03/28/20 03/29/20 03/30/20 23:59 23:59 23:59 23:59 Intake Total 240 720 240 Balance 240 720 240 Meds/Results Medications: Active Medications Generic Name Dose Route Start Last Admin Trade Name Freq PRN Reason Stop Dose Admin Acetaminophen 1,000 mg 03/29/20 00:00 03/30/20 12:06 Tylenol Tablet PO 1,000 mg Q6HR [facility] Administration Acyclovir 200 mg 03/29/20 09:00 03/30/20 09:07 Zovirax Po PO 200 mg BID [facility] Administration Aspirin 81 mg 03/29/20 09:00 03/30/20 09:08 Aspirin Ec PO 81 mg DAILY [facility] Administration Benzocaine 1 applic 03/28/20 20:47 Anbesol Maximum Strength Gel BY MOUTH TID PRN MOUTH IRRITATION Cyanocobalamin 250 mcg 03/29/20 12:05 03/30/20 09:08 Vitamin B-12 Tab PO 250 mcg QAM [facility] Administration Cyclobenzaprine HCl 5 mg 03/28/20 20:00 Flexeril PO TID PRN Muscle Spasm Enoxaparin Sodium 30 mg 03/28/20 21:00 03/30/20 09:06 Lovenox SUB-Q 30 mg Q12HR [facility] Administration Gabapentin 300 mg 03/29/20 09:00 03/30/20 09:08 Neurontin PO 300 mg BID [facility] Administration Levothyroxine Sodium 100 mcg 03/29/20 06:30 03/30/20 05:44 Synthroid PO 100 mcg DAILY@0630 [facility] Administration Lidocaine 2 patch 03/29/20 09:00 03/30/20 09:07 Lidoderm TOPICAL 2 patch DAILY [facility] Administration Lisinopril 1
[2020-03-30 14:00] VITALS: BP 178/81; PULSE 72; RESP 20; TEMP 37.1; O2SAT 97
[2020-03-30 20:02] VITALS: PULSE 72
[2020-03-30] MEDS: PRAVASTATIN SODIUM 20 MG TABLET PO (20:03)
[2020-03-30] MEDS: TRIMETHOPRIM 100 MG TABLET PO (20:03)
[2020-03-30 21:22] VITALS: BP 153/80; PULSE 71; RESP 18; TEMP 36.1; O2SAT 98
[2020-03-31] MEDS: ACETAMINOPHEN 500 MG TABLET 1000 MG PO ×5 (00:03→23:33)
[2020-03-31 05:52] VITALS: BP 150/69; PULSE 74; RESP 18; TEMP 35.9; O2SAT 98
[2020-03-31] MEDS: LEVOTHYROXINE SODIUM 100 MCG TABLET PO (05:59)
[2020-03-31] MEDS: traMADol HCL (*CRX) 50 MG TABLET PO (07:24)
[2020-03-31] MEDS: GABAPENTIN 300 MG CAPSULE PO ×2 (09:37→18:02)
[2020-03-31] MEDS: CYANOCOBALAMIN 250 MCG TABLET PO (09:37)
[2020-03-31] MEDS: SENNA/DOCUSATE SODIUM TABLET 2 TAB PO ×2 (09:37→18:01)
[2020-03-31] MEDS: CHOLECALCIFEROL 1,000 UNITS TABLET 2000 UNITS PO (09:37)
[2020-03-31] MEDS: lisinopriL 10 MG TABLET PO (09:37)
[2020-03-31] MEDS: ACYCLOVIR 200 MG CAPSULE PO ×2 (09:37→18:02)
[2020-03-31] MEDS: predniSONE 5 MG TABLET PO (09:37)
[2020-03-31 09:38] VITALS: PULSE 74
[2020-03-31] MEDS: ENOXAPARIN 30 MG/0.3 ML SYRINGE SUB-Q ×2 (09:38→20:51)
[2020-03-31] MEDS: ASPIRIN 81 MG ENTERIC TABLET PO (09:38)
[2020-03-31] MEDS: METOPROLOL TARTRATE 25 MG TABLET 75 MG PO ×2 (09:38→20:51)
[2020-03-31] MEDS: LIDOCAINE 5% PATCH 2 PATCH TOPICAL (09:38)
[2020-03-31] MEDS: polyethylene glycoL 3350 17 GM POWD.PACK PO (09:38)
--- NOTE | 2020-03-31 12:52 | WPDNEURORHBP ---
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, is status post donor renal transplant in February of 2013, coronary artery disease, hypertension, hyperlipidemia, hypothyroidism, and hepatitis B initially she was found to be neurologically intact was advised to have non operative management with Fisher J collar with strict cervical precautions CTA negative for large vessel occlusion or injury she be followed by the Ortho Spine surgeon in 1 week Review of Systems Review of Systems: All systems reviewed & are unremarkable except as noted in HPI and below Functional Status Ambulation Ability Ability to Ambulate 10 Feet: Standby Assistance Ability to Ambulate 50 Feet With 2 Turns: Standby Assistance Ability to Ambulate 150 Feet: Contact Guard Ambulation Assistive Devices: Walker, Wheeled Transfers Ability Ability to Transfer In/Out of Chair: Contact Guard Exam Narrative: Exam Narrative: examination reveals her to be awake alert in no obvious acute distress ear nose throat examination normal neck with no JVD Fisher J collar in place complains of no paresthesia or numbness but obviously she is weak in both upper and lower extremities respiration clear rhonchi or crepitation heart regular with no murmur abdomen is soft no tenderness normal bowel sounds neurologically she is awake alert oriented,cranial nerves examination is normal motor examination revealed decreased strength in the lower extremities more so than the upper mental status normal Objective Data Vital Signs Vital Signs: Vital Signs - 24 hr 03/30/20 14:00 03/30/20 20:02 03/30/20 21:22 Temperature 37.1 C 36.1 C L Pulse Rate 72 72 71 Respiratory Rate 20 18 Blood Pressure 178/81 H 153/80 H Pulse Oximetry 97 98 03/31/20 05:52 03/31/20 09:38 Temperature 35.9 C L Pulse Rate 74 74 Respiratory Rate 18 Blood Pressure 150/69 H Pulse Oximetry 98 Intake/Output Intake/Output: Intake & Output 03/28/20 03/29/20 03/30/20 03/31/20 23:59 23:59 23:59 23:59 Intake Total 240 720 720 240 Balance 240 720 720 240 Meds/Results Medications: Active Medications Generic Name Dose Route Start Last Admin Trade Name Freq PRN Reason Stop Dose Admin Acetaminophen 1,000 mg 03/29/20 00:00 03/31/20 05:58 Tylenol Tablet PO 1,000 mg Q6HR [facility] Administration Acyclovir 200 mg 03/29/20 09:00 03/31/20 09:37 Zovirax Po PO 200 mg BID [facility] Administration Aspirin 81 mg 03/29/20 09:00 03/31/20 09:38 Aspirin Ec PO 81 mg DAILY [facility] Administration Benzocaine 1 applic 03/28/20 20:47 Anbesol Maximum Strength Gel BY MOUTH TID PRN MOUTH IRRITATION Cyanocobalamin 250 mcg 03/29/20 12:05 03/31/20 09:37 Vitamin B-12 Tab PO 250 mcg QAM [facility] Administration Cyclobenzaprine HCl 5 mg 03/28/20 20:00 Flexeril PO TID PRN Muscle Spasm Enoxaparin Sodium 30 mg 03/28/20 21:00 03/31/20 09:38 Lovenox SUB-Q 30 mg Q12HR [facility] Administration Gabapentin 300 mg 03/29/20 09:00 03/31/20 09:37 Neurontin PO 300 mg BID [facility] Administration Levothyroxine Sodium 100 mcg 03/29/20 06:30 03/31/20 05:59 Synthroid PO 100 mcg DAILY@0630 [facility] Administration Lidocaine 2 patch 03/29/20 09:00 03/31/20 09:38 Lidoderm TOPICAL 2 patch DAILY [facility] Administration Lisinopril 10 mg 03/29/20 09:00 03/31/20 09:37 Prinivil PO 10 mg DAILY [facility] Administration Metoprolol Tartrate 75 mg 03/28/20 21:00 03/31/20 09:38 Lopressor PO 75 mg Q12HR [facility] Administration Polyethylene Glycol 17 gm 03/29/20 09:00 03/31/20 09:38 Miralax PO 17 gm DAILY [facility] Administration Pravastatin Sodium 20 mg 03/28/20 21:00
[2020-03-31 14:00] VITALS: BP 116/52; PULSE 70; RESP 14; TEMP 36.2; O2SAT 98
[2020-03-31 20:51] VITALS: PULSE 70
[2020-03-31] MEDS: PRAVASTATIN SODIUM 20 MG TABLET PO (20:51)
[2020-03-31] MEDS: TRIMETHOPRIM 100 MG TABLET PO (20:51)
[2020-03-31 21:09] VITALS: BP 138/63; PULSE 74; RESP 18; TEMP 36; O2SAT 98
[2020-04-01 05:14] VITALS: BP 150/54; PULSE 65; RESP 18; TEMP 35.8; O2SAT 98
[2020-04-01] MEDS: LEVOTHYROXINE SODIUM 100 MCG TABLET PO (06:17)
[2020-04-01] MEDS: ACETAMINOPHEN 500 MG TABLET 1000 MG PO ×3 (06:17→18:26)
[2020-04-01] MEDS: ACYCLOVIR 200 MG CAPSULE PO ×2 (09:09→18:27)
[2020-04-01] MEDS: traMADol HCL (*CRX) 50 MG TABLET PO ×2 (09:09→21:38)
[2020-04-01] MEDS: SENNA/DOCUSATE SODIUM TABLET 2 TAB PO ×2 (09:09→18:26)
[2020-04-01] MEDS: lisinopriL 10 MG TABLET PO (09:09)
[2020-04-01 09:11] VITALS: PULSE 65
[2020-04-01] MEDS: GABAPENTIN 300 MG CAPSULE PO ×2 (09:11→18:27)
[2020-04-01] MEDS: CYANOCOBALAMIN 250 MCG TABLET PO (09:11)
[2020-04-01] MEDS: METOPROLOL TARTRATE 25 MG TABLET 75 MG PO ×2 (09:11→21:41)
[2020-04-01] MEDS: predniSONE 5 MG TABLET PO (09:11)
[2020-04-01] MEDS: CHOLECALCIFEROL 1,000 UNITS TABLET 2000 UNITS PO (09:11)
[2020-04-01] MEDS: ASPIRIN 81 MG ENTERIC TABLET PO (09:11)
[2020-04-01] MEDS: LIDOCAINE 5% PATCH 2 PATCH TOPICAL (09:13)
[2020-04-01] MEDS: polyethylene glycoL 3350 17 GM POWD.PACK PO (09:14)
[2020-04-01] MEDS: ENOXAPARIN 30 MG/0.3 ML SYRINGE SUB-Q ×2 (09:15→21:43)
[2020-04-01 14:00] VITALS: BP 123/57; PULSE 64; RESP 18; TEMP 36.3; O2SAT 96
[2020-04-01] MEDS: TRIMETHOPRIM 100 MG TABLET PO (21:40)
[2020-04-01] MEDS: PRAVASTATIN SODIUM 20 MG TABLET PO (21:41)
[2020-04-01 22:00] VITALS: BP 147/70; PULSE 70; RESP 14; TEMP 36.1; O2SAT 98
[2020-04-02 06:00] VITALS: BP 151/60; PULSE 67; RESP 16; TEMP 36.1; O2SAT 99
[2020-04-02] MEDS: ACETAMINOPHEN 500 MG TABLET 1000 MG PO ×3 (06:13→17:45)
[2020-04-02] MEDS: LEVOTHYROXINE SODIUM 100 MCG TABLET PO (06:14)
[2020-04-02] MEDS: predniSONE 5 MG TABLET PO (09:56)
[2020-04-02] MEDS: ASPIRIN 81 MG ENTERIC TABLET PO (09:56)
[2020-04-02] MEDS: ACYCLOVIR 200 MG CAPSULE PO ×2 (09:56→17:45)
[2020-04-02] MEDS: GABAPENTIN 300 MG CAPSULE PO ×2 (09:57→17:45)
[2020-04-02] MEDS: CYANOCOBALAMIN 250 MCG TABLET PO (09:57)
[2020-04-02] MEDS: CHOLECALCIFEROL 1,000 UNITS TABLET 2000 UNITS PO (09:57)
[2020-04-02] MEDS: SENNA/DOCUSATE SODIUM TABLET 2 TAB PO ×2 (09:57→17:45)
[2020-04-02] MEDS: lisinopriL 10 MG TABLET PO (09:58)
--- NOTE | 2020-04-02 10:28 | WPDNEURORHBP ---
Subjective Date/time seen: 04/02/20 10:28 85 years old with spinal cord dysfunction traumatic in nature with etiological diagnosis of C2 Mayur muted vertebral body fracture extending to bilateral masses right pedicle in addition to comorbid condition of end-stage renal disease secondary to vasculitis also with history of donor renal transplant in February of 2013 coronary artery disease hypertension hyperlipidemia hypothyroidism and hepatitis B involving the physical therapy and occupational therapy is walking up to 150ft with a contact guard is standby assistance with a wheeled walker Review of Systems Review of Systems: All systems reviewed & are unremarkable except as noted in HPI and below Functional Status Ambulation Ability Ability to Ambulate 10 Feet: Standby Assistance Ability to Ambulate 50 Feet With 2 Turns: Standby Assistance Ability to Ambulate 150 Feet: Standby Assistance Ambulation Assistive Devices: Walker, Wheeled Transfers Ability Ability to Transfer In/Out of Chair: Contact Guard Exam Narrative: Exam Narrative: on examination today she is awake cooperative his speech nor dysphasic no dysarthric no dysphonic very pleasant complains of mild discomfort in the right paracervical area for which we discussed her neurological examination remains unchanged heart is regular lungs clear Objective Data Vital Signs Vital Signs: Vital Signs - 24 hr 04/01/20 14:00 04/01/20 22:00 04/02/20 06:00 Temperature 36.3 C L 36.1 C L 36.1 C L Pulse Rate 64 70 67 Respiratory Rate 18 14 16 Blood Pressure 123/57 L 147/70 H 151/60 H Pulse Oximetry 96 98 99 Intake/Output Intake/Output: Intake & Output 03/30/20 03/31/20 04/01/20 04/02/20 23:59 23:59 23:59 23:59 Intake Total 720 720 720 240 Balance 720 720 720 240 Meds/Results Medications: Active Medications Generic Name Dose Route Start Last Admin Trade Name Freq PRN Reason Stop Dose Admin Acetaminophen 1,000 mg 03/29/20 00:00 04/02/20 06:13 Tylenol Tablet PO 1,000 mg Q6HR [facility] Administration Acyclovir 200 mg 03/29/20 09:00 04/02/20 09:56 Zovirax Po PO 200 mg BID [facility] Administration Aspirin 81 mg 03/29/20 09:00 04/02/20 09:56 Aspirin Ec PO 81 mg DAILY [facility] Administration Benzocaine 1 applic 03/28/20 20:47 Anbesol Maximum Strength Gel BY MOUTH TID PRN MOUTH IRRITATION Cyanocobalamin 250 mcg 03/29/20 12:05 04/02/20 09:57 Vitamin B-12 Tab PO 250 mcg QAM [facility] Administration Cyclobenzaprine HCl 5 mg 03/28/20 20:00 Flexeril PO TID PRN Muscle Spasm Enoxaparin Sodium 30 mg 03/28/20 21:00 04/01/20 21:43 Lovenox SUB-Q 30 mg Q12HR [facility] Administration Gabapentin 300 mg 03/29/20 09:00 04/02/20 09:57 Neurontin PO 300 mg BID [facility] Administration Levothyroxine Sodium 100 mcg 03/29/20 06:30 04/02/20 06:14 Synthroid PO 100 mcg DAILY@0630 [facility] Administration Lidocaine 2 patch 03/29/20 09:00 04/01/20 09:13 Lidoderm TOPICAL 2 patch DAILY [facility] Administration Lisinopril 10 mg 03/29/20 09:00 04/02/20 09:58 Prinivil PO 10 mg DAILY [facility] Administration Metoprolol Tartrate 75 mg 03/28/20 21:00 04/01/20 21:41 Lopressor PO 75 mg Q12HR [facility] Administration Polyethylene Glycol 17 gm 03/29/20 09:00 04/01/20 09:14 Miralax PO 17 gm DAILY [facility] Administration Pravastatin Sodium 20 mg 03/28/20 21:00 04/01/20 21:41 Pravastatin Sodium PO 20 mg HS [facility] Administration Prednisone 5 mg 03/29/20 08:00 04/02/20 09:56 Prednisone PO 5 mg DAILY@0800 [facility] Administration Senna/Docusate Sodium 2 tab 03/29/20 09:00 04/02/20 09:57 Senokot S Tablet PO 2 tab BID [facility] Administration Tramadol HCl 50 mg 03/28/20 20:00 04/01/20 21:38 Ultram PO 50 mg Q6H PRN Administration Pain (Scale Score 4-6) Trimethoprim 100 mg 03/28/20 21:00 04/01/20 21:40 Proloprim PO 100 mg HS [facility] Administration Vitamin D 2,000 un
[2020-04-02] MEDS: LIDOCAINE 5% PATCH 2 PATCH TOPICAL (11:04)
[2020-04-02 11:05] VITALS: PULSE 67
[2020-04-02] MEDS: METOPROLOL TARTRATE 25 MG TABLET 75 MG PO ×2 (11:05→21:21)
[2020-04-02] MEDS: ENOXAPARIN 30 MG/0.3 ML SYRINGE SUB-Q ×2 (11:05→21:21)
[2020-04-02] MEDS: polyethylene glycoL 3350 17 GM POWD.PACK PO (11:05)
[2020-04-02 14:00] VITALS: BP 137/52; PULSE 60; RESP 16; TEMP 35.8; O2SAT 99
[2020-04-02 21:21] VITALS: PULSE 68
[2020-04-02] MEDS: TRIMETHOPRIM 100 MG TABLET PO (21:21)
[2020-04-02] MEDS: PRAVASTATIN SODIUM 20 MG TABLET PO (21:21)
[2020-04-02] MEDS: CYCLOBENZAPRINE HCL 5 MG TABLET PO (21:21)
[2020-04-02] MEDS: traMADol HCL (*CRX) 50 MG TABLET PO (21:22)
[2020-04-02 21:26] VITALS: BP 144/58; PULSE 69; RESP 18; TEMP 36.1; O2SAT 100
[2020-04-03 05:12] VITALS: BP 149/80; PULSE 69; RESP 18; TEMP 36.1; O2SAT 97
[2020-04-03] MEDS: LEVOTHYROXINE SODIUM 100 MCG TABLET PO (06:00)
[2020-04-03] MEDS: ACETAMINOPHEN 500 MG TABLET 1000 MG PO ×3 (06:00→17:39)
[2020-04-03] MEDS: traMADol HCL (*CRX) 50 MG TABLET PO ×2 (07:41→20:03)
[2020-04-03] MEDS: ASPIRIN 81 MG ENTERIC TABLET PO (07:42)
[2020-04-03] MEDS: predniSONE 5 MG TABLET PO (07:42)
[2020-04-03 07:43] VITALS: PULSE 69
[2020-04-03] MEDS: METOPROLOL TARTRATE 25 MG TABLET 75 MG PO ×2 (07:43→20:02)
[2020-04-03] MEDS: ACYCLOVIR 200 MG CAPSULE PO ×2 (07:43→17:39)
[2020-04-03] MEDS: GABAPENTIN 300 MG CAPSULE PO ×2 (07:44→17:39)
[2020-04-03] MEDS: CHOLECALCIFEROL 1,000 UNITS TABLET 2000 UNITS PO (07:44)
[2020-04-03] MEDS: LIDOCAINE 5% PATCH 2 PATCH TOPICAL (07:44)
[2020-04-03] MEDS: CYANOCOBALAMIN 250 MCG TABLET PO (07:45)
[2020-04-03] MEDS: ENOXAPARIN 30 MG/0.3 ML SYRINGE SUB-Q ×2 (07:45→20:08)
[2020-04-03] MEDS: lisinopriL 10 MG TABLET PO (07:46)
[2020-04-03] MEDS: SENNA/DOCUSATE SODIUM TABLET 2 TAB PO ×2 (07:46→17:39)
[2020-04-03] MEDS: polyethylene glycoL 3350 17 GM POWD.PACK PO (07:47)
[2020-04-03 14:00] VITALS: BP 149/80; PULSE 65; RESP 18; TEMP 36.2; O2SAT 100
--- NOTE | 2020-04-03 14:11 | PCDIET ---
Nutrition Follow-Up Complete: No nutrition diagnosis at this time. Nutrition Goal: Patient to consume 75% of meals or greater. Goal met. Patient consumed average of 86% of meals since 03/30/20. Diet is regular with Ensure Enlive TID. Last recorded weight is 61.3 kg. Recommend obtaining new weight. Bowel Motility: Last documented BM on 03/30/20. Labs Reviewed: No new labs available. Meds Noted: Acyclovir, Vitamin B12, Synthroid, Lisinopril, Miralax, Prednisone, Senna, Vitamin D Additional Notes: No documented skin breakdown. Will continue to monitor with same goal. Nutrition Monitoring and Evaluation: Follow up every 5 days.
--- NOTE | 2020-04-03 14:43 | WPDNEURORHBP ---
Subjective Date/time seen: 04/03/20 14:43 Interval history: this 85-year-old woman is here because of C2 cervical fracture wearing the collar she is doing fairly well CT scan of her neck was performed and it was sent to the Neurosurgery and we are waiting for their response she is making excellent progress in over rehab arm and walking more than 150 feet and we will discontinue the Lovenox which was for the DVT prophylaxis she denies any headache nausea vomiting chest pain shortness of breath fever chills or sore throat Review of Systems Review of Systems: All systems reviewed & are unremarkable except as noted in HPI and below Functional Status Ambulation Ability Ability to Ambulate 10 Feet: Standby Assistance Ability to Ambulate 50 Feet With 2 Turns: Standby Assistance Ability to Ambulate 150 Feet: Standby Assistance Ambulation Assistive Devices: Walker, Wheeled Transfers Ability Ability to Transfer In/Out of Chair: Contact Guard Exam Const: General: comfortable and no acute distress HENMT: General nose exam: Normal nares present Mouth: Yes moist mucous membranes Eyes: General: appearance normal, both eyes and all related structures Neck: Neck: supple and no JVD Other: wearing cervical, collar Resp: Effort & Inspection: normal respiratory effort Auscultation: clear to auscultation bilaterally Cardio: Rate: regular rate Rhythm: regular rhythm GI: GI Palp: Yes Soft to palpation Auscultation: normal bowel sounds Skin: General skin exam: normal color and no rashes or lesions noted Neuro: Other: patient is awake alert will mild short-term memory deficit making progress in the rehab walking quite a bit about 150 feet with a walker and making progress Extrem: General: normal to inspection Psych: Mental Status: mental status grossly normal Objective Data Vital Signs Vital Signs: Vital Signs - 24 hr 04/02/20 21:21 04/02/20 21:26 04/03/20 05:12 Temperature 36.1 C L 36.1 C L Pulse Rate 68 69 69 Respiratory Rate 18 18 Blood Pressure 144/58 H 149/80 H Pulse Oximetry 100 97 04/03/20 07:43 04/03/20 14:00 Temperature 36.2 C L Pulse Rate 69 65 Respiratory Rate 18 Blood Pressure 149/80 H Pulse Oximetry 100 Intake/Output Intake/Output: Intake & Output 09/26/20 09/27/20 09/28/20 09/29/20 23:59 23:59 23:59 23:59 Intake Total 720 720 720 440 Balance 720 720 720 440 Meds/Results Medications: Active Medications Generic Name Dose Route Start Last Admin Trade Name Freq PRN Reason Stop Dose Admin Acetaminophen 1,000 mg 03/29/20 00:00 04/03/20 12:49 Tylenol Tablet PO 1,000 mg Q6HR [facility] Administration Acyclovir 200 mg 03/29/20 09:00 04/03/20 07:43 Zovirax Po PO 200 mg BID [facility] Administration Aspirin 81 mg 03/29/20 09:00 04/03/20 07:42 Aspirin Ec PO 81 mg DAILY [facility] Administration Benzocaine 1 applic 03/28/20 20:47 Anbesol Maximum Strength Gel BY MOUTH TID PRN MOUTH IRRITATION Cyanocobalamin 250 mcg 03/29/20 12:05 04/03/20 07:45 Vitamin B-12 Tab PO 250 mcg QAM [facility] Administration Cyclobenzaprine HCl 5 mg 03/28/20 20:00 04/02/20 21:21 Flexeril PO 5 mg TID PRN Administration Muscle Spasm Enoxaparin Sodium 30 mg 03/28/20 21:00 04/03/20 07:45 Lovenox SUB-Q 30 mg Q12HR [facility] Administration Gabapentin 300 mg 03/29/20 09:00 04/03/20 07:44 Neurontin PO 300 mg BID [facility] Administration Levothyroxine Sodium 100 mcg 03/29/20 06:30 04/03/20 06:00 Synthroid PO 100 mcg DAILY@0630 [facility] Administration Lidocaine 2 patch 03/29/20 09:00 04/03/20 07:44 Lidoderm TOPICAL 2 patch DAILY [facility] Administration Lisinopril 10 mg 03/29/20 09:00 04/03/20 07:46 Prinivil PO 10 mg DAILY [facility] Administration Metoprolol Tartrate 75 mg 03/28/20 21:00 04/03/20 07:43 Lopressor PO 75 mg Q12HR [facility] Administration Polyethylene Glycol 17 gm 03/29/20 09:00 04/03/20 07:47 Miralax PO 17
[2020-04-03 20:02] VITALS: PULSE 68
[2020-04-03] MEDS: TRIMETHOPRIM 100 MG TABLET PO (20:02)
[2020-04-03] MEDS: PRAVASTATIN SODIUM 20 MG TABLET PO (20:02)
[2020-04-03] MEDS: CYCLOBENZAPRINE HCL 5 MG TABLET PO (20:03)
[2020-04-03 21:18] VITALS: BP 132/67; PULSE 73; RESP 18; TEMP 35.9; O2SAT 98
[2020-04-04] MEDS: LEVOTHYROXINE SODIUM 100 MCG TABLET PO (05:41)
[2020-04-04] MEDS: ACETAMINOPHEN 500 MG TABLET 1000 MG PO ×3 (05:41→17:57)
[2020-04-04 06:00] VITALS: BP 143/65; PULSE 63; RESP 18; TEMP 35.9; O2SAT 99
[2020-04-04] MEDS: ASPIRIN 81 MG ENTERIC TABLET PO (10:44)
[2020-04-04] MEDS: CHOLECALCIFEROL 1,000 UNITS TABLET 2000 UNITS PO (10:44)
[2020-04-04] MEDS: ACYCLOVIR 200 MG CAPSULE PO ×2 (10:44→17:57)
[2020-04-04] MEDS: predniSONE 5 MG TABLET PO (10:45)
[2020-04-04] MEDS: CYANOCOBALAMIN 250 MCG TABLET PO (10:45)
[2020-04-04] MEDS: ENOXAPARIN 30 MG/0.3 ML SYRINGE SUB-Q ×2 (10:45→21:15)
[2020-04-04] MEDS: SENNA/DOCUSATE SODIUM TABLET 2 TAB PO ×2 (10:45→17:57)
[2020-04-04] MEDS: GABAPENTIN 300 MG CAPSULE PO ×2 (10:46→17:57)
[2020-04-04] MEDS: LIDOCAINE 5% PATCH 2 PATCH TOPICAL (10:46)
[2020-04-04] MEDS: lisinopriL 10 MG TABLET PO (10:46)
[2020-04-04 10:48] VITALS: PULSE 63
[2020-04-04] MEDS: METOPROLOL TARTRATE 25 MG TABLET 75 MG PO ×2 (10:48→21:17)
[2020-04-04] MEDS: traMADol HCL (*CRX) 50 MG TABLET PO ×2 (10:49→21:17)
[2020-04-04 14:00] VITALS: BP 142/77; PULSE 67; RESP 18; TEMP 35.9; O2SAT 97
--- NOTE | 2020-04-04 15:12 | WPDNEURORHBP ---
Subjective Date/time seen: 04/04/20 15:12 Interval history: this 85-year-old woman is here with C2 fracture and [place] J collar she denies having any paresthesias either in the hands or the feet feet and as for as the fracture is consult she is doing her work very well we have received a note from the Neurosurgery at [facility] for her to be evaluated for probable surgery on her spine I shared this with her and they have given her appointment April 18 as I understand the patient has been neurologically intact throughout the course I have followed her here on the acute rehab and she has been doing very well and has improved overall as for as the weakness in the upper lower extremities are concerned but for the sake of fall prevention we need to keep her on the walker Review of Systems Review of Systems: All systems reviewed & are unremarkable except as noted in HPI and below Functional Status Ambulation Ability Ability to Ambulate 10 Feet: Independent Ability to Ambulate 50 Feet With 2 Turns: Independent Ability to Ambulate 150 Feet: Independent Ambulation Assistive Devices: Walker, Wheeled Transfers Ability Ability to Transfer In/Out of Chair: Contact Guard Exam Const: General: comfortable and no acute distress HENMT: General nose exam: Normal nares present Mouth: Yes moist mucous membranes Eyes: General: appearance normal, both eyes and all related structures Neck: Neck: supple and no JVD Other: wearing [place] J collar Resp: Effort & Inspection: normal respiratory effort Auscultation: clear to auscultation bilaterally Cardio: Rate: regular rate Rhythm: regular rhythm GI: GI Palp: Yes Soft to palpation Auscultation: normal bowel sounds Skin: General skin exam: normal color and no rashes or lesions noted Neuro: Other: patient is awake alert well oriented and has improvement overall as for the generalized weakness is concerned she has not regressed or showed any signs of worsening in her neurological state particularly denies any paresthesias and feels good Extrem: General: normal to inspection Psych: Mental Status: mental status grossly normal Objective Data Vital Signs Vital Signs: Vital Signs - 24 hr 04/03/20 20:02 04/03/20 21:18 04/04/20 06:00 Temperature 35.9 C L 35.9 C L Pulse Rate 68 73 63 Respiratory Rate 18 18 Blood Pressure 132/67 143/65 H Pulse Oximetry 98 99 04/04/20 10:48 Temperature Pulse Rate 63 Respiratory Rate Blood Pressure Pulse Oximetry Intake/Output Intake/Output: Intake & Output 04/01/20 04/02/20 04/03/20 04/04/20 23:59 23:59 23:59 23:59 Intake Total 720 720 680 480 Balance 720 720 680 480 Meds/Results Medications: Active Medications Generic Name Dose Route Start Last Admin Trade Name Freq PRN Reason Stop Dose Admin Acetaminophen 1,000 mg 03/29/20 00:00 04/04/20 15:08 Tylenol Tablet PO 1,000 mg Q6HR [facility] Administration Acyclovir 200 mg 03/29/20 09:00 04/04/20 10:44 Zovirax Po PO 200 mg BID [facility] Administration Aspirin 81 mg 03/29/20 09:00 04/04/20 10:44 Aspirin Ec PO 81 mg DAILY [facility] Administration Benzocaine 1 applic 03/28/20 20:47 Anbesol Maximum Strength Gel BY MOUTH TID PRN MOUTH IRRITATION Cyanocobalamin 250 mcg 03/29/20 12:05 04/04/20 10:45 Vitamin B-12 Tab PO 250 mcg QAM [facility] Administration Cyclobenzaprine HCl 5 mg 03/28/20 20:00 04/03/20 20:03 Flexeril PO 5 mg TID PRN Administration Muscle Spasm Enoxaparin Sodium 30 mg 03/28/20 21:00 04/04/20 10:45 Lovenox SUB-Q 30 mg Q12HR [facility] Administration Gabapentin 300 mg 03/29/20 09:00 04/04/20 10:46 Neurontin PO 300 mg BID [facility] Administration Levothyroxine Sodium 100 mcg 03/29/20 06:30 04/04/20 05:41 Synthroid PO 100 mcg DAILY@0630 [facility] Administration Lidocaine 2 patch 03/29/20 09:00 04/04/20 10:46 Lidoderm TOPICAL 2 patch DAILY [facility] Administration Li
[2020-04-04] MEDS: PRAVASTATIN SODIUM 20 MG TABLET PO (21:21)
[2020-04-04] MEDS: TRIMETHOPRIM 100 MG TABLET PO (21:21)
[2020-04-04 21:47] VITALS: BP 131/58; PULSE 69; RESP 18; TEMP 36; O2SAT 97
[2020-04-05 05:09] LABS: Basophils Absolute Auto 0.1 K/mm3 (0.0-0.1); Eosinophils Absolute Auto 0.2 K/mm3 (0-0.3); Eosinophils Percent Auto 3.9 % (0-4.4); Hematocrit 41.5 % (37.0-47.0); Hemoglobin 13.3 g/dL (12.0-15.0); Immature Granulocyte Absolute 0.06 K/mm3 (0.00-0.031); Lymphocytes Absolute Auto 0.77 K/mm3 (0.9-3.2); Lymphocytes Percent Auto 12.6 % (18.3-44.2); Mean Corpuscular Hemoglobin 33.3 pg (26-34); Mean Platelet Volume 10.4 fl (7.4-10.4); Monocytes Absolute Auto 0.6 K/mm3 (0.1-0.6); Monocytes Percent Auto 9.2 % (2.6-8.5); Neutrophils Absolute Auto 4.4 K/mm3 (1.3-6.7); Neutrophils Percent Auto 72.3 % (45.5-73.1); Platelet Count Result 203 k/mm3 (150-375); Red Blood Count 3.99 M/mm3 (4.2-5.4); Red Cell Distribution Width 12.6 % (11.5-14.5); White Blood Count 6.1 K/mm3 (4.5-10.0)
[2020-04-05 05:17] VITALS: BP 147/67; PULSE 63; RESP 18; TEMP 35.9; O2SAT 99
[2020-04-05 05:32] LABS: Anion Gap 7 mmol/L (8-16); Blood Urea Nitrogen 41 mg/dL (7-17); Calcium 9.9 mg/dL (8.4-10.2); Carbon Dioxide 23 mmol/L (22-30); Chloride 106 mmol/L (98-107); Estimated CRCL calculation 30 ml/min; Estimated Glomerular Filt Rate 53; Glucose 88 mg/dL (65-105); Potassium 5.3 mmol/L (3.4-5.0); Sodium 136 mmol/L (137-145)
[2020-04-05] MEDS: ACETAMINOPHEN 500 MG TABLET 1000 MG PO ×3 (06:20→17:22)
[2020-04-05] MEDS: LEVOTHYROXINE SODIUM 100 MCG TABLET PO (06:20)
[2020-04-05] MEDS: predniSONE 5 MG TABLET PO (10:50)
[2020-04-05] MEDS: ASPIRIN 81 MG ENTERIC TABLET PO (10:50)
[2020-04-05] MEDS: ACYCLOVIR 200 MG CAPSULE PO ×2 (10:50→17:21)
[2020-04-05] MEDS: CYANOCOBALAMIN 250 MCG TABLET PO (10:51)
[2020-04-05] MEDS: CHOLECALCIFEROL 1,000 UNITS TABLET 2000 UNITS PO (10:51)
[2020-04-05] MEDS: ENOXAPARIN 30 MG/0.3 ML SYRINGE SUB-Q ×2 (10:51→20:33)
[2020-04-05] MEDS: SENNA/DOCUSATE SODIUM TABLET 2 TAB PO (10:52)
[2020-04-05] MEDS: LIDOCAINE 5% PATCH 2 PATCH TOPICAL (10:52)
[2020-04-05] MEDS: GABAPENTIN 300 MG CAPSULE PO ×2 (10:52→17:22)
[2020-04-05] MEDS: lisinopriL 10 MG TABLET PO (10:53)
[2020-04-05] MEDS: polyethylene glycoL 3350 17 GM POWD.PACK PO (10:53)
[2020-04-05 10:54] VITALS: PULSE 63
[2020-04-05] MEDS: METOPROLOL TARTRATE 25 MG TABLET 75 MG PO ×2 (10:54→20:33)
[2020-04-05 14:00] VITALS: BP 145/63; PULSE 64; RESP 16; TEMP 37.1; O2SAT 98
[2020-04-05 17:09] LABS: Tacrolimus Prograf 7.2 mcg/L
[2020-04-05] MEDS: traMADol HCL (*CRX) 50 MG TABLET PO (20:32)
[2020-04-05 20:33] VITALS: PULSE 68
[2020-04-05] MEDS: PRAVASTATIN SODIUM 20 MG TABLET PO (20:35)
[2020-04-05] MEDS: TRIMETHOPRIM 100 MG TABLET PO (20:35)
[2020-04-05 22:00] VITALS: BP 137/73; PULSE 73; RESP 18; TEMP 36; O2SAT 96
[2020-04-06] MEDS: LEVOTHYROXINE SODIUM 100 MCG TABLET PO (05:50)
[2020-04-06] MEDS: ACETAMINOPHEN 500 MG TABLET 1000 MG PO ×4 (05:51→23:31)
[2020-04-06] MEDS: lisinopriL 10 MG TABLET PO (05:53)
[2020-04-06 06:00] VITALS: BP 184/72; PULSE 69; RESP 17; TEMP 36; O2SAT 99
[2020-04-06] MEDS: LIDOCAINE 5% PATCH 2 PATCH TOPICAL (09:32)
[2020-04-06] MEDS: ASPIRIN 81 MG ENTERIC TABLET PO (09:33)
[2020-04-06] MEDS: CYANOCOBALAMIN 250 MCG TABLET PO (09:33)
[2020-04-06] MEDS: ACYCLOVIR 200 MG CAPSULE PO ×2 (09:33→17:15)
[2020-04-06] MEDS: predniSONE 5 MG TABLET PO (09:33)
[2020-04-06] MEDS: CHOLECALCIFEROL 1,000 UNITS TABLET 2000 UNITS PO (09:33)
[2020-04-06] MEDS: GABAPENTIN 300 MG CAPSULE PO ×2 (09:33→17:15)
[2020-04-06 09:34] VITALS: PULSE 69
[2020-04-06] MEDS: ENOXAPARIN 30 MG/0.3 ML SYRINGE SUB-Q (09:34)
[2020-04-06] MEDS: METOPROLOL TARTRATE 25 MG TABLET 75 MG PO ×2 (09:34→21:14)
--- NOTE | 2020-04-06 12:58 | WPDNEURORHBP ---
Subjective Date/time seen: 04/06/20 12:58 Interval history: this 85-year-old woman status post kidney transplant primarily came because of C2 fracture with a [place] J collar she has done well in the rehab and is going to be discharged tomorrow with follow-up appointment with neurosurgeon to be evaluated for possible surgery for the above fracture In the past few days the patient's BUN has been trending up with creatinine being relatively stable I am little concerned about this and have requested our colleague Dr. Crawley to just see her and make sure prior to her discharge she goes on the same medication list she is already on The patient denies any headache nausea vomiting chest pain shortness of breath fever chills sore throat Review of Systems Review of Systems: All systems reviewed & are unremarkable except as noted in HPI and below Functional Status Ambulation Ability Ability to Ambulate 10 Feet: Independent Ability to Ambulate 50 Feet With 2 Turns: Independent Ability to Ambulate 150 Feet: Independent Ambulation Assistive Devices: Walker, Wheeled Transfers Ability Ability to Transfer In/Out of Chair: Contact Guard Exam Const: General: comfortable and no acute distress HENMT: General nose exam: Normal nares present Mouth: Yes moist mucous membranes Eyes: General: appearance normal, both eyes and all related structures Neck: Neck: supple and no JVD Other: the [place] J collar is on Resp: Effort & Inspection: normal respiratory effort Auscultation: clear to auscultation bilaterally Cardio: Rate: regular rate Rhythm: regular rhythm GI: GI Palp: Yes Soft to palpation Auscultation: normal bowel sounds Skin: General skin exam: normal color and no rashes or lesions noted Neuro: Other: the patient remains awake alert and well oriented follows all commands does not have any neurological symptoms in her arms and legs she is walking more than 150 feet couple of times a day and she would not require any DVT prophylaxis at this time Extrem: General: normal to inspection Psych: Mental Status: mental status grossly normal Objective Data Vital Signs Vital Signs: Vital Signs - 24 hr 04/05/20 14:00 04/05/20 20:33 04/05/20 22:00 Temperature 37.1 C 36.0 C L Pulse Rate 64 68 73 Respiratory Rate 16 18 Blood Pressure 145/63 H 137/73 Pulse Oximetry 98 96 04/06/20 06:00 04/06/20 09:34 Temperature 36.0 C L Pulse Rate 69 69 Respiratory Rate 17 Blood Pressure 184/72 H Pulse Oximetry 99 Intake/Output Intake/Output: Intake & Output 04/03/20 04/04/20 04/05/20 04/06/20 23:59 23:59 23:59 23:59 Intake Total 680 720 400 240 Balance 680 720 400 240 Meds/Results Medications: Active Medications Generic Name Dose Route Start Last Admin Trade Name Freq PRN Reason Stop Dose Admin Acetaminophen 1,000 mg 03/29/20 00:00 04/06/20 11:51 Tylenol Tablet PO 1,000 mg Q6HR [facility] Administration Acyclovir 200 mg 03/29/20 09:00 04/06/20 09:33 Zovirax Po PO 200 mg BID [facility] Administration Aspirin 81 mg 03/29/20 09:00 04/06/20 09:33 Aspirin Ec PO 81 mg DAILY [facility] Administration Benzocaine 1 applic 03/28/20 20:47 Anbesol Maximum Strength Gel BY MOUTH TID PRN MOUTH IRRITATION Cyanocobalamin 250 mcg 03/29/20 12:05 04/06/20 09:33 Vitamin B-12 Tab PO 250 mcg QAM [facility] Administration Cyclobenzaprine HCl 5 mg 03/28/20 20:00 04/03/20 20:03 Flexeril PO 5 mg TID PRN Administration Muscle Spasm Gabapentin 300 mg 03/29/20 09:00 04/06/20 09:33 Neurontin PO 300 mg BID [facility] Administration Levothyroxine Sodium 100 mcg 03/29/20 06:30 04/06/20 05:50 Synthroid PO 100 mcg DAILY@0630 [facility] Administration Lidocaine 2 patch 03/29/20 09:00 04/06/20 09:32 Lidoderm TOPICAL 2 patch DAILY [facility] Administration Lisinopril 10 mg 03/29/20 09:00 04/06/20 05:53 Prinivil PO 10 mg DAILY [facility] Administration Metoprolol Tartrate 75 mg
[2020-04-06 13:26] LABS: Anion Gap 9 mmol/L (8-16); Blood Urea Nitrogen 37 mg/dL (7-17); Calcium 10.6 mg/dL (8.4-10.2); Carbon Dioxide 25 mmol/L (22-30); Chloride 103 mmol/L (98-107); Estimated CRCL calculation 30 ml/min; Estimated Glomerular Filt Rate 53; Glucose 116 mg/dL (65-105); Potassium 4.8 mmol/L (3.4-5.0); Sodium 137 mmol/L (137-145)
--- NOTE | 2020-04-06 13:26 | PCDIET ---
Nutrition Follow-Up Complete: No nutrition diagnosis at this time. Nutrition Goal: Patient to consume 75% of meals or greater. Goal met. Patient consuming 75-100% of most meals on regular diet. Reports ordering smaller portions at times due to decreased appetite. Likes Ensure Enlive, but feels it is too much. Recommend changing to Ensure Compact (220kcal, 9g protein, 4oz fluid) at meals; patient feels this is a more appropriate size for her. Last recorded weight is 61.3 kg. Recommend obtaining new weight. Bowel Motility: +BM on 04/05/20. Labs Reviewed: BUN (41), K (5.3), Na (136) Meds Noted: Vitamin B12, Zovirax, Lisinopril, Lopressor, Prednisone, Vitamin D, Miralax Additional Notes: No documented skin breakdown. Will continue to monitor with same goal. Nutrition Monitoring and Evaluation: Follow up every 5 days.
[2020-04-06 14:00] VITALS: BP 111/59; PULSE 68; RESP 16; TEMP 36.3; O2SAT 100
--- NOTE | 2020-04-06 15:27 | PM.CNNEP ---
Assessment and Plan Assessment and plan (1) Renal transplant, status post: Code(s): Z94.0 - Kidney transplant status Status: Acute (2) Azotemia: Code(s): R79.89 - Other specified abnormal findings of blood chemistry Status: Acute (3) Hyperkalemia: Code(s): E87.5 - Hyperkalemia Status: Acute (4) Hypertension: Qualifiers: Hypertension type: essential hypertension Qualified Code(s): I10 - Essential (primary) hypertension Code(s): I10 - Essential (primary) hypertension Status: Acute (5) C2 cervical fracture: Code(s): S12.100A - Unspecified displaced fracture of second cervical vertebra, initial encounter for closed fracture Status: Acute Assessment and Plan: . Additional Plan Juliet has an elevated BUN/azotemia as noted by her recent labs. Next She is also status post renal transplant approximately seven years ago with relative stable kidney function with her creatinine running anywhere from 0.9-1.0 mg/dL. From review of her records, she has always had an elevated BUN to some degree ranging anywhere from 19-30 in the last two years. Her BUN was little higher in the last few days but I suspect is probably secondary to poor oral intake, particularly with regard to fluids, as she is somewhat limited by what she can do given the management of her cervical fracture with the use of a J collar in place. She freely admits that it is difficult to drink fluids with this device in place. I do not think her medications need to be adjusted and I suspect that her elevated BUN is somewhat appropriate in this setting and I suspect it will probably improve with time once she gets back to her normal ability to eat and drink despite the fact that she has the aforemention J collar in place. I discussed the case with the patient and her at bedside and she will try to push more oral fluid intake in the next few days. I will recheck a renal function panel tomorrow just to ensure that at least her kidney function BUN are relatively stable. I suspect her previous elevated potassium level also manifestation of her inability to take in adequate oral hydration as well. I will continue to follow patient with you while she remains hospitalized to make further recommendations during hospital course. Thank you for allowing me to participate in care this patient. History of Present Illness Reason for Consult Consult date: 04/06/20 Reason for consult: Other (1. History of renal transplant. 2.Azotemia) Chief Complaint Chief complaint: Cervical fracture History of Present Illness Narrative: The patient is a 85-year-old female with a past medical history as outlined below who was transferred from [facility] to the [facility] for ongoing physical/ occupational, rehab therapy. She was admitted to [facility] after sustaining an injury that led to the discovery of cervical and thoracic lumbar fractures. Ortho Spine was consulted during her hospital stay and recommended nonsurgical management and ongoing conservative therapy. I am I am e.g. a collar was placed on her neck to stabilize her cervical fracture and once she was medically stable, she was transferred to the rehab center [facility] for ongoing rehabilitative purposes. Since her admission to the [facility], she has been doing fairly well and is tensely scheduled for discharge tomorrow given her significant progress improvement with ongoing therapy. However, it was noted in the last few days that her BUN was running a bit higher than normal associated with some mild fluctuations in her potassium level. Renal consultation was requested due these laboratory abnormalities as well as the fact that she is status post renal transplant approximately seven years ago. From review of her records, her overall kidney function appears to be fairly well p
[2020-04-06 21:14] VITALS: PULSE 68
[2020-04-06] MEDS: CYCLOBENZAPRINE HCL 5 MG TABLET PO (21:14)
[2020-04-06] MEDS: TRIMETHOPRIM 100 MG TABLET PO (21:14)
[2020-04-06] MEDS: PRAVASTATIN SODIUM 20 MG TABLET PO (21:14)
[2020-04-06 22:00] VITALS: BP 131/57; PULSE 75; RESP 19; TEMP 36.1; O2SAT 98
[2020-04-06] MEDS: traMADol HCL (*CRX) 50 MG TABLET PO (23:31)
[2020-04-07 00:24] LABS: Creatinine Urine 97.4 mg/dL; Total Protein Urine Random 14 mg/dL
[2020-04-07 00:29] LABS: Sodium Urine Random 87 meq/L
[2020-04-07] MEDS: ACETAMINOPHEN 500 MG TABLET 1000 MG PO (05:43)
[2020-04-07] MEDS: LEVOTHYROXINE SODIUM 100 MCG TABLET PO (05:43)
[2020-04-07 06:00] VITALS: BP 156/59; PULSE 59; RESP 17; TEMP 36.4; O2SAT 98
[2020-04-07 07:12] LABS: Albumin Level 3.5 g/dL (3.5-5.1); Anion Gap 4 mmol/L (8-16); Blood Urea Nitrogen 41 mg/dL (7-17); Carbon Dioxide 26 mmol/L (22-30); Chloride 105 mmol/L (98-107); Estimated CRCL calculation 30 ml/min; Estimated Glomerular Filt Rate 53; Glucose 90 mg/dL (65-105); Phosphorus 3.6 mg/dL (2.5-4.5); Potassium 5.2 mmol/L (3.4-5.0); Sodium 135 mmol/L (137-145)
[2020-04-07] MEDS: predniSONE 5 MG TABLET PO (08:35)
[2020-04-07] MEDS: CHOLECALCIFEROL 1,000 UNITS TABLET 2000 UNITS PO (08:35)
[2020-04-07] MEDS: ACYCLOVIR 200 MG CAPSULE PO (08:35)
[2020-04-07] MEDS: ASPIRIN 81 MG ENTERIC TABLET PO (08:35)
[2020-04-07] MEDS: CYANOCOBALAMIN 250 MCG TABLET PO (08:36)
[2020-04-07] MEDS: lisinopriL 10 MG TABLET PO (08:36)
[2020-04-07] MEDS: GABAPENTIN 300 MG CAPSULE PO (08:36)
[2020-04-07 08:37] VITALS: PULSE 59
[2020-04-07] MEDS: METOPROLOL TARTRATE 25 MG TABLET 75 MG PO (08:37)
--- NOTE | 2020-04-09 12:26 | PM.DS ---
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 she was also seen by heavy truck driver during this hospitalization just prior to the discharge she was able to ambulate up to 150ft independently with the wheeled walker and was able to transfer in and out of chair with a contact guard most recent examination revealed her to be awake alert cooperative , head normocephalic, ears nose throat examination normal, Neck is supple with [place] J collar on, heart regular with no murmur. Lungs clear to auscultation with no rhonchi or crepitation, Abdomen soft with normal bowel sounds no hepatomegaly no tenderness and neurological E, she was quite normal walking more than 150ft 2l times a day. Most recent CBC revealed WBC 6.1 hemoglobin 13.3 but MCV of 104.0 basic metabolic panel fairly normal except GFR of only 53 BUN of 41 and creatinine of 1.0, was seen by the nephrologistwho attributed her elevated BUN somewhat appropriate in this setting and advised her to drink fluid over the next few days and elevated potassium was attributed to decreased oral hydration as well. At the time of discharge she was independent in eating, oral hygiene, toileting, bathing was setup, upper body dressing was partial assistance, lower body dressing was supervision, footwear was independent, rolling in bed, sit to lying independent lying to sit independent, [id number] independent ,chair transfer, toilet transfer, car transfer, walking 10ft 50ft, 2 turns walking 150ft 10ftonuneven surfaces, 4 steps 12 steps everything was independent and so as the picking up .wheelchair 50ft required only supervision and wheelchair 150ft she was unable to do so DS: Summary Time Spent with Patient Time attestation: Total time spent providing and/or coordinating discharge services: DS: Data Data Completed and Pending Labs on day of discharge: Labs from last 24 hours 04/06/20 23:33 Urine Eosinophils TNP Discharge Plan Discharge Attending physician on discharge: Jez Casanova Consulting providers: Brooklyn Crawley Discharging Clinician: Jez Casanova Anticipated Discharge Date/Time: 04/07/20 13:02 Patient Disposition: Home, Self-Care Activity: may shower and no driving Diet: as tolerated Wound Care Instructions: follow printed instructions Discharge Instructions: Per Care Coordination: Home Health services were arranged through [facility]. [facility] can be contacted at [phone]. Patient Instructions: Antibiotic Form, Enoxaparin (By injection) Stand Alone Forms: General Discharge Information Follow-up/Referrals: Kalyan [Other] ( follow up within one to two weeks after d/c from [facility]) Js Barahona MD [Other] (Call to reschedule Spine CT Scan With Contrast with [facility]. Previously scheduled for 03/30/2020 but cancelled due to rehabilitation hospitalization per [facility] Radiology Office [phone]) Discharge Medications: Continued Anbesol (benzocaine) 10 % Gel 1 applic MUCOUS MEMBRANE TID PRN (Reason: Mouth Irritation) RF: 0 cyanocobalamin (vitamin B-12) 100 mcg Tablet 100 mcg PO DAILY RF: 0 prednisone 5 mg Tablet 5 mg PO DAILY RF: 0 aspirin [Adult Low Dose Aspirin] 81 mg Tablet,Delayed Release (Dr/Ec) 81 mg PO DAILY RF: 0 acetaminophen [Tylenol Extra Strength] 500 mg Tablet 1,000 mg PO Q6H RF: 0 acyclovir 200 mg Capsule 200 mg PO BID RF: 0 tacrolimus 0.5 mg Capsule 0.5 mg PO Q12H RF: 0
[2020-04-11 23:25] LABS: Chloride Rand Ur 70 mmol/L (32-290); Chloride/Creatinine Rand Ur 69 (38-318); Creatinine Random Urine 102 mg/dL (20-275)
== END 2020-04-07 11:10 | disposition home health service (06) | DRG 559 ==
PROVIDERS: Internal Medicine Nephrology; Admitting Provider Psychiatry & Neurology Neurology; PCP Internal Medicine; Visit Provider Psychiatry & Neurology Neurology
DX: S12.100D Unspecified displaced fracture of second cervical vertebra, subsequent encounter for fracture with routine healing (principal); N18.6 End stage renal disease; I12.0 Hypertensive chronic kidney disease with stage 5 chronic kidney disease or end stage renal disease; Z94.0 Kidney transplant status; S22.029D Unspecified fracture of second thoracic vertebra, subsequent encounter for fracture with routine healing; S22.039D Unspecified fracture of third thoracic vertebra, subsequent encounter for fracture with routine healing; E87.5 Hyperkalemia; R79.89 Other specified abnormal findings of blood chemistry; D89.9 Disorder involving the immune mechanism, unspecified; E78.5 Hyperlipidemia, unspecified; E03.9 Hypothyroidism, unspecified; I77.6 Arteritis, unspecified; I25.10 Atherosclerotic heart disease of native coronary artery without angina pectoris; M43.12 Spondylolisthesis, cervical region; M81.8 Other osteoporosis without current pathological fracture; Z86.19 Personal history of other infectious and parasitic diseases; W19.XXXD Unspecified fall, subsequent encounter; Z92.25 Personal history of immunosuppression therapy
CPT/HCPCS: 36415; 72125; 80048; 80069; 80197; 81050; 82436; 82570; 84156; 84300; 85025; 85999; 92507; 92523; 97110; 97116; 97162; 97166; 97530; 97535; 97542; A9270; J1650; J7512

== ENCOUNTER 2020-04-13 10:29 | Outpatient (NON) | payer MEDICARE, OTHER, SELFPAY ==
[2020-04-13 11:20] LABS: Anion Gap 10 mmol/L (8-16); Blood Urea Nitrogen 31 mg/dL (7-17); Calcium 10.3 mg/dL (8.4-10.2); Carbon Dioxide 22 mmol/L (22-30); Chloride 107 mmol/L (98-107); Estimated Glomerular Filt Rate > 60; Glucose 99 mg/dL (65-105); Potassium 4.6 mmol/L (3.4-5.0); Sodium 139 mmol/L (137-145)
== END 2020-04-13 10:30 ==
LOC: HOME HLTH 10:42
PROVIDERS: PCP Internal Medicine; Visit Provider Internal Medicine
DX: I12.0 Hypertensive chronic kidney disease with stage 5 chronic kidney disease or end stage renal disease (principal); N18.5 Chronic kidney disease, stage 5; S22.029D Unspecified fracture of second thoracic vertebra, subsequent encounter for fracture with routine healing; S12.100D Unspecified displaced fracture of second cervical vertebra, subsequent encounter for fracture with routine healing; Z94.0 Kidney transplant status; X58.XXXD Exposure to other specified factors, subsequent encounter
CPT/HCPCS: 80048

== ENCOUNTER 2020-04-23 10:05 | Outpatient (NON) | payer MEDICARE, OTHER, SELFPAY ==
[2020-04-23 11:15] LABS: Anion Gap 6 mmol/L (8-16); Blood Urea Nitrogen 23 mg/dL (7-17); Calcium 9.8 mg/dL (8.4-10.2); Carbon Dioxide 26 mmol/L (22-30); Chloride 107 mmol/L (98-107); Cholesterol 122 mg/dL (0-200); Estimated Glomerular Filt Rate > 60; Glucose 94 mg/dL (65-105); HDL Direct 42 mg/dL; LDL Cholesterol Direct 55 mg/dL; Phosphorus 2.7 mg/dL (2.5-4.5); Potassium 3.9 mmol/L (3.4-5.0); Sodium 139 mmol/L (137-145); Triglycerides 166 mg/dL (<150)
[2020-04-23 11:16] LABS: Hematocrit 37.3 % (37.0-47.0); Immature Platelet Fraction Pct 3.4 % (0.9-11.2); Mean Corpuscular HGB Conc 32.2 g/dl (32-36); Mean Corpuscular Hemoglobin 33.2 pg (26-34); Mean Corpuscular Volume 103.3 fl (80-100); Mean Platelet Volume 11.3 fl (7.4-10.4); Platelet Count Result 131 k/mm3 (150-375); Red Blood Count 3.61 M/mm3 (4.2-5.4); Red Cell Distribution Width 13.6 % (11.5-14.5); White Blood Count 5.9 K/mm3 (4.5-10.0)
[2020-04-23 11:30] LABS: Alanine Aminotransferase 14 U/L (4-35); Albumin Level 3.4 g/dL (3.5-5.1); Alkaline Phosphatase 86 U/L (38-126); Aspartate Amino Transferase 21 U/L (14-36); Bilirubin,Total 0.6 mg/dL (0.2-1.3)
[2020-04-26 10:54] LABS: Tacrolimus Prograf 6.4 mcg/L
== END 2020-04-23 10:06 ==
PROVIDERS: PCP Internal Medicine; Visit Provider Internal Medicine
DX: I12.0 Hypertensive chronic kidney disease with stage 5 chronic kidney disease or end stage renal disease (principal); S22.039D Unspecified fracture of third thoracic vertebra, subsequent encounter for fracture with routine healing; S12.100D Unspecified displaced fracture of second cervical vertebra, subsequent encounter for fracture with routine healing; S22.029D Unspecified fracture of second thoracic vertebra, subsequent encounter for fracture with routine healing; X58.XXXD Exposure to other specified factors, subsequent encounter
CPT/HCPCS: 80053; 80061; 80197; 84100; 85027; 85055

== ENCOUNTER 2020-06-18 12:37 | Outpatient (CLI) | payer MEDICARE, OTHER, SELFPAY ==
--- NOTE | ~2020-06-18 | CT_ITS ---
EXAMINATION: CT cervical spine wo con EXAM DATE: 06/18/2020 13:09 INDICATION: Closed posttraumatic minimally displaced cervical spine fracture. Follow-up exam. TECHNIQUE: Spiral CT of the cervical spine was performed without contrast. Axial images were reviewe d. Coronal and sagittal reformatted images were also reviewed. The dose-length product (DLP) for thi s examination was 108.96 mGy-cm. The exposure was tailored according to patient size (auto mA exposu re control), and iterative reconstruction (ASIR) was used as additional dose reduction technique. Com parison is made to prior examination from 03/31/2020. FINDINGS: Again there is a fracture through the base of the odontoid process, but there is been devel opment of sclerosis of the fracture margin and evidence of routine healing. It is essentially nondisp laced and position unchanged. No other acute findings. Moderate to severe disc disease at C5-6. 3 mm anterolisthesis C4 on C5. Some advanced left-sided predominant cervical arthropathy. IMPRESSION: Subacute C2 fracture with continued evidence of routine healing. Cervical spondylosis un changed. Reviewed, dictated and finalized at location A. ALL FINISHER IMPRESSION: Subacute C2 fracture with continued evidence of routine healing. C ervical spondylosis unchanged.
== END 2020-06-18 12:38 | disposition home or self-care (01) ==
PROVIDERS: PCP Internal Medicine
DX: S12.100D Unspecified displaced fracture of second cervical vertebra, subsequent encounter for fracture with routine healing (principal)
CPT/HCPCS: 72125

== ENCOUNTER 2020-08-04 11:13 | Outpatient (RCR) | payer MEDICARE, OTHER, SELFPAY ==
[2020-07-03 10:54] LABS: Basophils Percent Auto 0.5 % (0.2-1.2); Eosinophils Absolute Auto 0.1 K/mm3 (0-0.3); Eosinophils Percent Auto 2.4 % (0-4.4); Hematocrit 41.4 % (37.0-47.0); Hemoglobin 13.4 g/dL (12.0-15.0); Immature Granulocyte Absolute 0.02 K/mm3 (0.00-0.031); Immature Granulocyte Percent A 0.3 % (0-0.5); Lymphocytes Absolute Auto 0.62 K/mm3 (0.9-3.2); Lymphocytes Percent Auto 10.8 % (18.3-44.2); Mean Corpuscular HGB Conc 32.4 g/dl (32-36); Mean Corpuscular Hemoglobin 33.4 pg (26-34); Mean Corpuscular Volume 103.2 fl (80-100); Mean Platelet Volume 10.6 fl (7.4-10.4); Monocytes Absolute Auto 0.7 K/mm3 (0.1-0.6); Monocytes Percent Auto 11.9 % (2.6-8.5); Neutrophils Absolute Auto 4.2 K/mm3 (1.3-6.7); Neutrophils Percent Auto 74.1 % (45.5-73.1); Platelet Count Result 128 k/mm3 (150-375); Red Blood Count 4.01 M/mm3 (4.2-5.4); White Blood Count 5.7 K/mm3 (4.5-10.0)
[2020-07-03 11:09] LABS: Alanine Aminotransferase 15 U/L (4-35); Albumin Level 3.8 g/dL (3.5-5.1); Alkaline Phosphatase 102 U/L (38-126); Anion Gap 8 mmol/L (8-16); Aspartate Amino Transferase 25 U/L (14-36); Bilirubin,Total 0.6 mg/dL (0.2-1.3); Blood Urea Nitrogen 25 mg/dL (7-17); Calcium 9.7 mg/dL (8.4-10.2); Carbon Dioxide 24 mmol/L (22-30); Chloride 107 mmol/L (98-107); Cholesterol 143 mg/dL (0-200); Estimated Glomerular Filt Rate 60; Glucose 99 mg/dL (65-105); HDL Direct 59 mg/dL; Phosphorus 3.9 mg/dL (2.5-4.5); Potassium 4.2 mmol/L (3.4-5.0); Sodium 139 mmol/L (137-145); Triglycerides 184 mg/dL (<150)
[2020-07-03 11:20] LABS: LDL Cholesterol Direct 55 mg/dL
[2020-07-06 00:05] LABS: Tacrolimus Prograf 5.2 mcg/L
[2020-08-04 11:44] LABS: Basophils Percent Auto 0.8 % (0.2-1.2); Eosinophils Absolute Auto 0.2 K/mm3 (0-0.3); Hematocrit 40.9 % (37.0-47.0); Hemoglobin 13.3 g/dL (12.0-15.0); Immature Granulocyte Absolute 0.02 K/mm3 (0.00-0.031); Immature Granulocyte Percent A 0.4 % (0-0.5); Immature Platelet Fraction Pct 3.4 % (0.9-11.2); Lymphocytes Absolute Auto 0.69 K/mm3 (0.9-3.2); Lymphocytes Percent Auto 13.8 % (18.3-44.2); Mean Corpuscular HGB Conc 32.5 g/dl (32-36); Mean Corpuscular Hemoglobin 33.5 pg (26-34); Mean Platelet Volume 10.6 fl (7.4-10.4); Monocytes Absolute Auto 0.6 K/mm3 (0.1-0.6); Monocytes Percent Auto 11.2 % (2.6-8.5); Neutrophils Absolute Auto 3.6 K/mm3 (1.3-6.7); Neutrophils Percent Auto 70.8 % (45.5-73.1); Platelet Count Result 128 k/mm3 (150-375); Red Blood Count 3.97 M/mm3 (4.2-5.4); Red Cell Distribution Width 12.1 % (11.5-14.5)
[2020-08-04 12:01] LABS: Alanine Aminotransferase 16 U/L (4-35); Albumin Level 3.8 g/dL (3.5-5.1); Alkaline Phosphatase 122 U/L (38-126); Anion Gap 1 mmol/L (8-16); Aspartate Amino Transferase 25 U/L (14-36); Bilirubin,Total 0.7 mg/dL (0.2-1.3); Blood Urea Nitrogen 26 mg/dL (7-17); Calcium 9.8 mg/dL (8.4-10.2); Carbon Dioxide 29 mmol/L (22-30); Chloride 107 mmol/L (98-107); Cholesterol 131 mg/dL (0-200); Estimated Glomerular Filt Rate > 60; Glucose 98 mg/dL (65-105); HDL Direct 69 mg/dL; Phosphorus 3.3 mg/dL (2.5-4.5); Potassium 4.2 mmol/L (3.4-5.0); Sodium 137 mmol/L (137-145); Triglycerides 121 mg/dL (<150)
[2020-08-04 12:11] LABS: LDL Cholesterol Direct 44 mg/dL
[2020-08-07 23:08] LABS: Tacrolimus Prograf 5.9 mcg/L
== END 2020-10-01 23:59 | disposition home or self-care (01) ==
LOC: ANHLAB 11:13
PROVIDERS: Internal Medicine Nephrology; PCP Internal Medicine
DX: E78.5 Hyperlipidemia, unspecified (principal); Z94.0 Kidney transplant status; Z79.899 Other long term (current) drug therapy
CPT/HCPCS: 36415; 80053; 80061; 80197; 84100; 85025; 85055

== ENCOUNTER 2020-10-23 09:39 | Outpatient (CLI) | payer MEDICARE, OTHER, SELFPAY ==
[2020-10-23 10:28] LABS: Basophils Percent Auto 0.7 % (0.2-1.2); Eosinophils Absolute Auto 0.1 K/mm3 (0-0.3); Eosinophils Percent Auto 2.5 % (0-4.4); Hematocrit 41.4 % (37.0-47.0); Hemoglobin 13.5 g/dL (12.0-15.0); Immature Granulocyte Absolute 0.02 K/mm3 (0.00-0.031); Immature Granulocyte Percent A 0.4 % (0-0.5); Immature Platelet Fraction Pct 3.7 % (0.9-11.2); Lymphocytes Absolute Auto 0.73 K/mm3 (0.9-3.2); Lymphocytes Percent Auto 12.8 % (18.3-44.2); Mean Corpuscular HGB Conc 32.6 g/dl (32-36); Mean Corpuscular Hemoglobin 33.2 pg (26-34); Mean Corpuscular Volume 101.7 fl (80-100); Mean Platelet Volume 10.3 fl (7.4-10.4); Monocytes Absolute Auto 0.6 K/mm3 (0.1-0.6); Monocytes Percent Auto 10.9 % (2.6-8.5); Neutrophils Absolute Auto 4.2 K/mm3 (1.3-6.7); Neutrophils Percent Auto 72.7 % (45.5-73.1); Platelet Count Result 147 k/mm3 (150-375); Red Blood Count 4.07 M/mm3 (4.2-5.4); Red Cell Distribution Width 12.2 % (11.5-14.5); White Blood Count 5.7 K/mm3 (4.5-10.0)
[2020-10-23 10:33] LABS: Alanine Aminotransferase 17 U/L (4-35); Albumin Level 4.2 g/dL (3.5-5.1); Alkaline Phosphatase 129 U/L (38-126); Anion Gap 7 mmol/L (8-16); Aspartate Amino Transferase 34 U/L (14-36); Bilirubin,Total 0.6 mg/dL (0.2-1.3); Blood Urea Nitrogen 24 mg/dL (7-17); Carbon Dioxide 27 mmol/L (22-30); Chloride 105 mmol/L (98-107); Cholesterol 138 mg/dL (0-200); Estimated Glomerular Filt Rate > 60; Glucose 86 mg/dL (65-105); HDL Direct 68 mg/dL; Phosphorus 3.2 mg/dL (2.5-4.5); Potassium 4.3 mmol/L (3.4-5.0); Sodium 139 mmol/L (137-145); Triglycerides 109 mg/dL (<150)
[2020-10-23 10:44] LABS: LDL Cholesterol Direct 54 mg/dL
[2020-10-25 16:07] LABS: Tacrolimus Prograf 5.2 mcg/L
== END 2020-10-23 09:40 | disposition home or self-care (01) ==
PROVIDERS: PCP Internal Medicine; Visit Provider Internal Medicine Nephrology
DX: Z94.0 Kidney transplant status (principal)
CPT/HCPCS: 36415; 80053; 80061; 80197; 84100; 85025; 85055

== ENCOUNTER 2021-01-22 10:56 | Outpatient (RCR) | payer MEDICARE, OTHER, SELFPAY ==
[2021-01-22 11:39] LABS: Basophils Absolute Auto 0.1 K/mm3 (0.0-0.1); Basophils Percent Auto 0.7 % (0.2-1.2); Eosinophils Absolute Auto 0.3 K/mm3 (0-0.3); Eosinophils Percent Auto 4.4 % (0-4.4); Hematocrit 40.1 % (37.0-47.0); Hemoglobin 12.8 g/dL (12.0-15.0); Immature Granulocyte Absolute 0.03 K/mm3 (0.00-0.031); Immature Granulocyte Percent A 0.4 % (0-0.5); Lymphocytes Absolute Auto 0.57 K/mm3 (0.9-3.2); Lymphocytes Percent Auto 8.1 % (18.3-44.2); Mean Corpuscular HGB Conc 31.9 g/dl (32-36); Mean Corpuscular Hemoglobin 31.4 pg (26-34); Mean Corpuscular Volume 98.5 fl (80-100); Mean Platelet Volume 10.4 fl (7.4-10.4); Monocytes Absolute Auto 0.7 K/mm3 (0.1-0.6); Monocytes Percent Auto 9.8 % (2.6-8.5); Neutrophils Absolute Auto 5.4 K/mm3 (1.3-6.7); Neutrophils Percent Auto 76.6 % (45.5-73.1); Platelet Count Result 156 k/mm3 (150-375); Red Blood Count 4.07 M/mm3 (4.2-5.4); Red Cell Distribution Width 12.1 % (11.5-14.5)
[2021-01-22 11:53] LABS: Alanine Aminotransferase 13 U/L (4-35); Albumin Level 4.1 g/dL (3.5-5.1); Alkaline Phosphatase 127 U/L (38-126); Anion Gap 8 mmol/L (8-16); Aspartate Amino Transferase 23 U/L (14-36); Bilirubin,Total 0.9 mg/dL (0.2-1.3); Blood Urea Nitrogen 24 mg/dL (7-17); Calcium 10.3 mg/dL (8.4-10.2); Carbon Dioxide 26 mmol/L (22-30); Chloride 104 mmol/L (98-107); Cholesterol 130 mg/dL (0-200); Estimated Glomerular Filt Rate > 60; Glucose 94 mg/dL (65-110); HDL Direct 57 mg/dL; Phosphorus 3.4 mg/dL (2.5-4.5); Potassium 4.5 mmol/L (3.4-5.0); Sodium 138 mmol/L (137-145); Triglycerides 89 mg/dL (<150)
[2021-01-22 12:03] LABS: LDL Cholesterol Direct 49 mg/dL
[2021-01-24 22:08] LABS: Tacrolimus Prograf 5.6 mcg/L
== END 2021-04-22 23:59 | disposition home or self-care (01) ==
LOC: ANHLAB 10:56
PROVIDERS: PCP Internal Medicine; Visit Provider Internal Medicine Nephrology
DX: E78.5 Hyperlipidemia, unspecified (principal); Z94.0 Kidney transplant status; Z79.899 Other long term (current) drug therapy
CPT/HCPCS: 36415; 80053; 80061; 80197; 84100; 85025

== ENCOUNTER 2021-03-20 13:44 | Outpatient (CLI) | payer MEDICARE, OTHER, SELFPAY | END 2021-03-20 13:45 | disposition home or self-care (01) | LOC: ANHLAB 15:59 | PROVIDERS: PCP Internal Medicine; Visit Provider Nurse Practitioner Adult Health | DX: R30.0 Dysuria (principal) | CPT/HCPCS: 87077; 87086; 87088; 87186 ==

== ENCOUNTER 2021-05-02 11:00 | Outpatient (RCR) | payer MEDICARE, OTHER, SELFPAY ==
[2021-05-02 12:10] LABS: Alanine Aminotransferase 22 U/L (4-35); Alkaline Phosphatase 100 U/L (38-126); Anion Gap 6 mmol/L (8-16); Aspartate Amino Transferase 26 U/L (14-36); Bilirubin,Total 0.8 mg/dL (0.2-1.3); Blood Urea Nitrogen 25 mg/dL (7-17); Calcium 9.9 mg/dL (8.4-10.2); Carbon Dioxide 26 mmol/L (22-30); Chloride 106 mmol/L (98-107); Cholesterol 127 mg/dL (0-200); Estimated Glomerular Filt Rate > 60; Glucose 99 mg/dL (65-110); HDL Direct 59 mg/dL; Phosphorus 3.6 mg/dL (2.5-4.5); Potassium 4.1 mmol/L (3.4-5.0); Sodium 138 mmol/L (137-145); Triglycerides 107 mg/dL (<150)
[2021-05-02 12:18] LABS: Basophils Percent Auto 0.7 % (0.2-1.2); Eosinophils Absolute Auto 0.1 K/mm3 (0-0.3); Eosinophils Percent Auto 2.4 % (0-4.4); Hematocrit 39.1 % (37.0-47.0); Hemoglobin 12.6 g/dL (12.0-15.0); Immature Granulocyte Absolute 0.01 K/mm3 (0.00-0.031); Immature Granulocyte Percent A 0.2 % (0-0.5); Immature Platelet Fraction Pct 4.5 % (0.9-11.2); Lymphocytes Absolute Auto 0.67 K/mm3 (0.9-3.2); Lymphocytes Percent Auto 12.5 % (18.3-44.2); Mean Corpuscular HGB Conc 32.2 g/dl (32-36); Mean Corpuscular Hemoglobin 32.5 pg (26-34); Mean Corpuscular Volume 100.8 fl (80-100); Monocytes Absolute Auto 0.6 K/mm3 (0.1-0.6); Monocytes Percent Auto 11.7 % (2.6-8.5); Neutrophils Absolute Auto 3.9 K/mm3 (1.3-6.7); Neutrophils Percent Auto 72.5 % (45.5-73.1); Platelet Count Result 118 k/mm3 (150-375); Red Blood Count 3.88 M/mm3 (4.2-5.4); White Blood Count 5.4 K/mm3 (4.5-10.0)
[2021-05-02 12:21] LABS: LDL Cholesterol Direct 47 mg/dL
[2021-05-06 08:59] LABS: Tacrolimus Prograf 5.3 mcg/L
== END 2021-07-31 23:59 | disposition home or self-care (01) ==
LOC: ANHLAB 11:00
PROVIDERS: PCP Internal Medicine; Visit Provider Internal Medicine Nephrology
DX: E78.5 Hyperlipidemia, unspecified (principal); Z94.0 Kidney transplant status; Z79.899 Other long term (current) drug therapy
CPT/HCPCS: 36415; 80053; 80061; 80197; 84100; 85025; 85055

== ENCOUNTER 2021-07-23 11:28 | Outpatient (RCR) | payer MEDICARE, OTHER, SELFPAY ==
[2021-07-23 12:33] LABS: Basophils Percent Auto 0.6 % (0.2-1.2); Eosinophils Absolute Auto 0.1 K/mm3 (0-0.3); Eosinophils Percent Auto 2.3 % (0-4.4); Hematocrit 42.2 % (37.0-47.0); Hemoglobin 13.6 g/dL (12.0-15.0); Immature Granulocyte Absolute 0.01 K/mm3 (0.00-0.031); Immature Granulocyte Percent A 0.2 % (0-0.5); Immature Platelet Fraction Pct 4.2 % (0.9-11.2); Lymphocytes Absolute Auto 0.61 K/mm3 (0.9-3.2); Lymphocytes Percent Auto 11.5 % (18.3-44.2); Mean Corpuscular HGB Conc 32.2 g/dl (32-36); Mean Corpuscular Volume 102.4 fl (80-100); Monocytes Absolute Auto 0.6 K/mm3 (0.1-0.6); Monocytes Percent Auto 11.3 % (2.6-8.5); Neutrophils Absolute Auto 3.9 K/mm3 (1.3-6.7); Neutrophils Percent Auto 74.1 % (45.5-73.1); Platelet Count Result 129 k/mm3 (150-375); Red Blood Count 4.12 M/mm3 (4.2-5.4); Red Cell Distribution Width 12.3 % (11.5-14.5); White Blood Count 5.3 K/mm3 (4.5-10.0)
[2021-07-23 12:48] LABS: Alanine Aminotransferase 18 U/L (4-35); Albumin Level 4.2 g/dL (3.5-5.1); Alkaline Phosphatase 118 U/L (38-126); Anion Gap 9 mmol/L (8-16); Aspartate Amino Transferase 26 U/L (14-36); Blood Urea Nitrogen 22 mg/dL (7-17); Calcium 10.2 mg/dL (8.4-10.2); Carbon Dioxide 24 mmol/L (22-30); Chloride 104 mmol/L (98-107); Cholesterol 146 mg/dL (0-200); Estimated Glomerular Filt Rate > 60; Glucose 108 mg/dL (65-110); HDL Direct 70 mg/dL; Phosphorus 3.2 mg/dL (2.5-4.5); Potassium 4.3 mmol/L (3.4-5.0); Sodium 137 mmol/L (137-145); Triglycerides 95 mg/dL (<150)
[2021-07-23 12:59] LABS: LDL Cholesterol Direct 54 mg/dL
[2021-07-26 01:07] LABS: Tacrolimus Prograf 5.4 mcg/L
== END 2021-10-21 23:59 | disposition home or self-care (01) ==
LOC: ANHLAB 11:28
PROVIDERS: PCP Internal Medicine; Visit Provider Internal Medicine Nephrology
DX: Z51.81 Encounter for therapeutic drug level monitoring (principal); E78.5 Hyperlipidemia, unspecified; Z94.0 Kidney transplant status; Z79.899 Other long term (current) drug therapy
CPT/HCPCS: 36415; 80061; 80069; 80076; 80197; 85025; 85055

== ENCOUNTER 2021-10-18 13:27 | Outpatient (CLI) | payer MEDICARE, OTHER, SELFPAY | END 2021-10-18 13:28 | disposition home or self-care (01) | PROVIDERS: PCP Internal Medicine; Visit Provider Nurse Practitioner Adult Health | DX: R30.0 Dysuria (principal) | CPT/HCPCS: 87086; 87147; 87181; 87186 ==

== ENCOUNTER 2021-11-09 10:32 | Outpatient (CLI) | payer MEDICARE, OTHER, SELFPAY ==
[2021-11-09 11:44] LABS: Albumin Level 3.7 g/dL (3.5-5.1); Anion Gap 5 mmol/L (8-16); Blood Urea Nitrogen 28 mg/dL (7-17); Calcium 9.6 mg/dL (8.4-10.2); Carbon Dioxide 27 mmol/L (22-30); Chloride 107 mmol/L (98-107); Estimated Glomerular Filt Rate > 60; Glucose 120 mg/dL (65-110); Phosphorus 3.9 mg/dL (2.5-4.5); Potassium 4.4 mmol/L (3.4-5.0); Sodium 139 mmol/L (137-145)
== END 2021-11-09 10:33 | disposition home or self-care (01) ==
LOC: ANHLAB 10:40
PROVIDERS: PCP Internal Medicine
DX: Z94.0 Kidney transplant status (principal)
CPT/HCPCS: 36415; 80069

== ENCOUNTER 2021-12-14 11:21 | Outpatient (CLI) | payer MEDICARE, OTHER, SELFPAY ==
[2021-12-14 12:36] LABS: Anion Gap 4 mmol/L (8-16); Blood Urea Nitrogen 21 mg/dL (7-17); Calcium 9.3 mg/dL (8.4-10.2); Carbon Dioxide 26 mmol/L (22-30); Chloride 109 mmol/L (98-107); Estimated Glomerular Filt Rate > 60; Glucose 92 mg/dL (65-110); Potassium 4.1 mmol/L (3.4-5.0); Sodium 139 mmol/L (137-145)
[2021-12-14 12:44] LABS: NT Pro B Type Natriuretic Pept 1130 pg/mL (5-100)
== END 2021-12-14 11:22 | disposition home or self-care (01) ==
LOC: ANHLAB 11:24
PROVIDERS: PCP Internal Medicine
DX: I82.90 Acute embolism and thrombosis of unspecified vein (principal); I70.203 Unspecified atherosclerosis of native arteries of extremities, bilateral legs; I50.32 Chronic diastolic (congestive) heart failure; I25.10 Atherosclerotic heart disease of native coronary artery without angina pectoris; I27.20 Pulmonary hypertension, unspecified; E78.5 Hyperlipidemia, unspecified; E03.9 Hypothyroidism, unspecified; I10 Essential (primary) hypertension; Z94.0 Kidney transplant status
CPT/HCPCS: 36415; 80048; 83880

== ENCOUNTER 2022-01-30 11:50 | Outpatient (RCR) | payer MEDICARE, OTHER, SELFPAY ==
[2021-11-02 11:45] LABS: Basophils Percent Auto 0.6 % (0.2-1.2); Eosinophils Absolute Auto 0.2 K/mm3 (0-0.3); Eosinophils Percent Auto 3.4 % (0-4.4); Hematocrit 40.3 % (37.0-47.0); Hemoglobin 12.6 g/dL (12.0-15.0); Immature Granulocyte Absolute 0.02 K/mm3 (0.00-0.031); Immature Granulocyte Percent A 0.4 % (0-0.5); Lymphocytes Absolute Auto 0.59 K/mm3 (0.9-3.2); Lymphocytes Percent Auto 11.6 % (18.3-44.2); Mean Corpuscular HGB Conc 31.3 g/dl (32-36); Mean Corpuscular Hemoglobin 32.7 pg (26-34); Mean Corpuscular Volume 104.7 fl (80-100); Mean Platelet Volume 10.4 fl (7.4-10.4); Monocytes Absolute Auto 0.6 K/mm3 (0.1-0.6); Monocytes Percent Auto 12.4 % (2.6-8.5); Neutrophils Absolute Auto 3.6 K/mm3 (1.3-6.7); Neutrophils Percent Auto 71.6 % (45.5-73.1); Platelet Count Result 140 k/mm3 (150-375); Red Blood Count 3.85 M/mm3 (4.2-5.4); Red Cell Distribution Width 12.5 % (11.5-14.5); White Blood Count 5.1 K/mm3 (4.5-10.0)
[2021-11-02 11:55] LABS: Alanine Aminotransferase 15 U/L (4-35); Albumin Level 4.1 g/dL (3.5-5.1); Alkaline Phosphatase 128 U/L (38-126); Anion Gap 7 mmol/L (8-16); Aspartate Amino Transferase 27 U/L (14-36); Bilirubin,Total 0.6 mg/dL (0.2-1.3); Blood Urea Nitrogen 27 mg/dL (7-17); Calcium 9.6 mg/dL (8.4-10.2); Carbon Dioxide 23 mmol/L (22-30); Chloride 108 mmol/L (98-107); Cholesterol 120 mg/dL (0-200); Estimated Glomerular Filt Rate 47; Glucose 94 mg/dL (65-110); HDL Direct 63 mg/dL; Phosphorus 3.8 mg/dL (2.5-4.5); Potassium 4.9 mmol/L (3.4-5.0); Sodium 138 mmol/L (137-145); Triglycerides 81 mg/dL (<150)
[2021-11-02 12:05] LABS: LDL Cholesterol Direct 37 mg/dL
[2021-11-05 21:05] LABS: Tacrolimus Prograf 5.3 mcg/L
[2022-01-30 12:53] LABS: Alanine Aminotransferase 15 U/L (6-35); Albumin Level 4.2 g/dL (3.5-5.1); Alkaline Phosphatase 116 U/L (38-126); Anion Gap 11 mmol/L (8-16); Aspartate Amino Transferase 25 U/L (14-36); Bilirubin,Total 0.8 mg/dL (0.2-1.3); Blood Urea Nitrogen 26 mg/dL (7-17); Calcium 9.5 mg/dL (8.4-10.2); Carbon Dioxide 22 mmol/L (22-30); Chloride 108 mmol/L (98-107); Cholesterol 141 mg/dL (0-200); Estimated Glomerular Filt Rate 53; Glucose 97 mg/dL (65-110); HDL Direct 57 mg/dL; Phosphorus 3.2 mg/dL (2.5-4.5); Potassium 4.5 mmol/L (3.4-5.0); Sodium 141 mmol/L (137-145); Triglycerides 170 mg/dL (<150)
[2022-01-30 12:54] LABS: Basophils Absolute Auto 0.1 K/mm3 (0.0-0.1); Basophils Percent Auto 1.2 % (0.2-1.2); Eosinophils Absolute Auto 0.2 K/mm3 (0-0.3); Eosinophils Percent Auto 2.8 % (0-4.4); Hematocrit 42.8 % (37.0-47.0); Hemoglobin 13.5 g/dL (12.0-15.0); Immature Granulocyte Absolute 0.02 K/mm3 (0.00-0.031); Immature Granulocyte Percent A 0.3 % (0-0.5); Lymphocytes Percent Auto 13.3 % (18.3-44.2); Mean Corpuscular HGB Conc 31.5 g/dl (32-36); Mean Corpuscular Hemoglobin 32.9 pg (26-34); Mean Corpuscular Volume 104.4 fl (80-100); Mean Platelet Volume 10.9 fl (7.4-10.4); Monocytes Absolute Auto 0.7 K/mm3 (0.1-0.6); Monocytes Percent Auto 11.4 % (2.6-8.5); Neutrophils Absolute Auto 4.3 K/mm3 (1.3-6.7); Platelet Count Result 137 k/mm3 (150-375); Red Cell Distribution Width 12.5 % (11.5-14.5)
[2022-01-30 13:04] LABS: LDL Cholesterol Direct 44 mg/dL
[2022-02-02 01:31] LABS: Tacrolimus Prograf 6.2 mcg/L
== END 2022-01-31 23:59 | disposition home or self-care (01) ==
LOC: ANHLAB 11:50
PROVIDERS: PCP Internal Medicine; Visit Provider Internal Medicine Nephrology
DX: E78.5 Hyperlipidemia, unspecified (principal); Z94.0 Kidney transplant status; Z79.899 Other long term (current) drug therapy
CPT/HCPCS: 36415; 80061; 80069; 80076; 80197; 85025

== ENCOUNTER 2022-02-11 09:34 | Outpatient (RCR) | payer MEDICARE, OTHER, SELFPAY ==
[2022-02-11] MEDS: ACETAMINOPHEN 325 MG TABLET 650 MG PO (14:25)
[2022-02-11] MEDS: diphenhydrAMINE HCl CAP 25 MG CAPSULE PO (14:25)
[2022-02-11] MEDS: FAMOTIDINE 20 MG TABLET PO (14:25)
[2022-02-11 14:28] VITALS: BP 114/55; PULSE 75; TEMP 36.2; O2SAT 100
[2022-02-11] MEDS: BEBTELOVIMAB 175 MG/2 ML VIAL IV PUSH (14:49)
[2022-02-11 15:32] VITALS: BP 145/57; PULSE 70; O2SAT 100
== END 2022-02-11 16:00 ==
LOC: AMCINF 09:34
PROVIDERS: PCP Family Medicine; Referring Provider Family Medicine; Visit Provider Internal Medicine Hematology & Oncology
DX: U07.1 COVID-19 (principal); I10 Essential (primary) hypertension; N18.9 Chronic kidney disease, unspecified; D84.9 Immunodeficiency, unspecified
CPT/HCPCS: A9270; M0222; Q0222

== ENCOUNTER → 2022-02-27 11:46 | Outpatient (CLI) | payer MEDICARE, OTHER, SELFPAY ==
--- NOTE | ~2022-02-27 | XR_ITS ---
XR hip LT min 2V 02/27/2022 12:05 Indication: Left hip pain Procedure: 2 views left hip Comparison: No prior studies for comparison. Findings: There is mild osteoarthritis of the left hip. No fracture or traumatic malalignment. No sig nificant soft tissue abnormality. There are vascular calcifications. Impression: 1: Mild osteoarthritis of the left hip. Reviewed, dictated and finalized at location A. Impression: 1: Mild osteoarthritis of the left hip.
== END ==
PROVIDERS: PCP Family Medicine; Visit Provider Family Medicine
DX: M25.552 Pain in left hip (principal); M16.12 Unilateral primary osteoarthritis, left hip
CPT/HCPCS: 73502

== ENCOUNTER 2022-05-08 13:15 | Outpatient (RCR) | payer MEDICARE, OTHER, SELFPAY ==
--- NOTE | 2022-04-24 11:39 | PTOPEVAL1 ---
Assessment and note entered by Vik Bhakta, PT Evaluation Information Assessment Status Evaluation Diagnosis L hip pain Onset 3 months ago Subjective Information Patient reports 3 months ago she started to have L hip pain which would radiate down from her low back to her knee. She has reported this last week to feeling better. Reported Pain Level Pain Score 1: Self Report Assessment PT Clinical Summary Magda is an 87 year old female coming into the clinic today for L hip pain. She has a positive scouring test, along with weakness in both hips and core, and tightness in YADIRA hamstrings and quads. Patient could benefit from skilled physical therapy to allow her to increase her strength of core and hips which may take pressure off her hip and back to minimize pain. Stretching should also put her body in better alignment. Plan of Care Interventions Electrical Stimulation,Gait Training,Hot Pack/Cold Pack,Manual Therapy,Mechanical Traction,Neuro Re- education,Patient/Caregiver Education,Therapeutic Activities,Therapeutic Exercise,Ultrasound PT Services Indicated Yes Treatment Frequency and 1x/wk for 4 weeks Duration These treatments will address the objective and functional deficits as defined above. The patient will be advanced safely and appropriately in order for the patient to progress towards his/her prior level of function. Additional exercises will be introduced and as well as a comprehensive home exercise program upon discharge, if needed, ?to ensure carryover of functional gains achieved in the clinic. This treatment plan has been reviewed and agreement upon by the patient.
--- NOTE | 2022-05-01 13:21 | PCPTNOTE ---
Patient called to cancel this date due to illness.
--- NOTE | 2022-05-15 11:06 | PCPTNOTE ---
Patient cancel due to having appointment with MD about kidneys.
--- NOTE | 2022-05-22 10:13 | PCPTNOTE ---
Patient called & cancelled scheduled appointment this date due to having to get a test done at the hospital.
--- NOTE | 2022-05-22 10:24 | PTOPDC ---
Assessment and note entered by Dacia Hay, PT, DPT Evaluation Information Assessment Status Discharge - Pt Not Present Diagnosis L hip pain Onset 3 months ago Subjective Information Pt called her scheduled re-evaluation this date due to getting test done at the hospital. Called patient to follow up on hip pain. She states she is doing better and has been doing her exercises at home. She states she is doing well and can continue her exercises at home without returning to therapy. Assessment PT Clinical Summary Juliet Man has completed 2 physical therapy visits from 04/24/22 to 05/08/22. She will be discharged from therapy services at this time. If she is to return to therapy at a later date, she will need a new order.
== END 2022-05-22 15:48 | disposition home or self-care (01) ==
LOC: ANHGOSHPT 13:15
PROVIDERS: PCP Family Medicine; Visit Provider Family Medicine
DX: M25.552 Pain in left hip (principal)
CPT/HCPCS: 97110; 97161

== ENCOUNTER 2022-05-22 14:15 | Outpatient (CLI) | payer MEDICARE, OTHER, SELFPAY ==
[2022-05-22 15:32] LABS: Appearance Urine Clear (Clear); Bilirubin Urine Negative (Negative); Blood Urine Negative (Negative); Color Urine Yellow (Yellow); Glucose Urine UA 3+ mg/dL (Negative); Ketones Urine Negative (Negative); Leukocyte Esterase Ur Negative LEU/UL (Negative); Nitrate Urine Negative (Negative); Protein Urine Negative (Negative); Urobilinogen Urine 0.2 mg/dL (<2.0)
[2022-05-22 15:35] LABS: Bacteria Urine Trace /hpf; Mucus Urine Rare /lpf; Squamous Epithelial Cell Urine Occasional /hpf (Few); WBC Urine 16-20 /hpf
[2022-05-22 15:36] LABS: Add Urine Microscopic? YES
[2022-05-22 15:51] LABS: Albumin Level 4.1 g/dL (3.5-5.1); Anion Gap 8 mmol/L (8-16); Blood Urea Nitrogen 29 mg/dL (7-17); Calcium 9.9 mg/dL (8.4-10.2); Carbon Dioxide 27 mmol/L (22-30); Chloride 102 mmol/L (98-107); Estimated Glomerular Filt Rate > 60; Glucose 113 mg/dL (65-110); Phosphorus 3.6 mg/dL (2.5-4.5); Potassium 4.3 mmol/L (3.4-5.0); Sodium 137 mmol/L (137-145)
== END 2022-05-22 14:16 | disposition home or self-care (01) ==
LOC: ANHLAB 14:17
PROVIDERS: PCP Family Medicine; Visit Provider Internal Medicine Nephrology
DX: Z94.0 Kidney transplant status (principal)
CPT/HCPCS: 36415; 80069; 81001; 87077; 87086; 87186

== ENCOUNTER 2022-07-05 10:39 | Outpatient (RCR) | payer MEDICARE, OTHER, SELFPAY ==
[2022-04-28 10:25] LABS: Basophils Percent Auto 0.5 % (0.2-1.2); Eosinophils Absolute Auto 0.3 K/mm3 (0-0.3); Hematocrit 38.5 % (37.0-47.0); Hemoglobin 12.6 g/dL (12.0-15.0); Immature Granulocyte Absolute 0.02 K/mm3 (0.00-0.031); Immature Granulocyte Percent A 0.3 % (0-0.5); Lymphocytes Absolute Auto 0.46 K/mm3 (0.9-3.2); Lymphocytes Percent Auto 7.4 % (18.3-44.2); Mean Corpuscular HGB Conc 32.7 g/dl (32-36); Mean Corpuscular Hemoglobin 33.2 pg (26-34); Mean Corpuscular Volume 101.6 fl (80-100); Mean Platelet Volume 10.4 fl (7.4-10.4); Monocytes Absolute Auto 0.8 K/mm3 (0.1-0.6); Monocytes Percent Auto 12.7 % (2.6-8.5); Neutrophils Absolute Auto 4.7 K/mm3 (1.3-6.7); Neutrophils Percent Auto 75.1 % (45.5-73.1); Platelet Count Result 145 k/mm3 (150-375); Red Blood Count 3.79 M/mm3 (4.2-5.4); Red Cell Distribution Width 12.5 % (11.5-14.5); White Blood Count 6.2 K/mm3 (4.5-10.0)
[2022-04-28 10:40] LABS: Alanine Aminotransferase 16 U/L (6-35); Albumin Level 3.9 g/dL (3.5-5.1); Alkaline Phosphatase 106 U/L (38-126); Anion Gap 11 mmol/L (8-16); Aspartate Amino Transferase 26 U/L (14-36); Bilirubin,Total 0.9 mg/dL (0.2-1.3); Blood Urea Nitrogen 23 mg/dL (7-17); Calcium 9.8 mg/dL (8.4-10.2); Carbon Dioxide 25 mmol/L (22-30); Chloride 103 mmol/L (98-107); Cholesterol 121 mg/dL (0-200); Estimated Glomerular Filt Rate 60; Glucose 97 mg/dL (65-110); HDL Direct 53 mg/dL; Phosphorus 3.2 mg/dL (2.5-4.5); Potassium 4.3 mmol/L (3.4-5.0); Sodium 139 mmol/L (137-145); Triglycerides 91 mg/dL (<150)
[2022-04-28 10:51] LABS: LDL Cholesterol Direct 51 mg/dL
[2022-05-01 07:07] LABS: Tacrolimus Prograf 6.8 mcg/L
[2022-07-05 11:27] LABS: Basophils Percent Auto 0.7 % (0.2-1.2); Eosinophils Absolute Auto 0.2 K/mm3 (0-0.3); Eosinophils Percent Auto 3.2 % (0-4.4); Hemoglobin 12.7 g/dL (12.0-15.0); Immature Granulocyte Absolute 0.02 K/mm3 (0.00-0.031); Immature Granulocyte Percent A 0.4 % (0-0.5); Lymphocytes Absolute Auto 0.66 K/mm3 (0.9-3.2); Lymphocytes Percent Auto 11.9 % (18.3-44.2); Mean Corpuscular HGB Conc 31.8 g/dl (32-36); Mean Corpuscular Hemoglobin 32.3 pg (26-34); Mean Corpuscular Volume 101.8 fl (80-100); Mean Platelet Volume 10.5 fl (7.4-10.4); Monocytes Absolute Auto 0.6 K/mm3 (0.1-0.6); Monocytes Percent Auto 11.2 % (2.6-8.5); Neutrophils Percent Auto 72.6 % (45.5-73.1); Platelet Count Result 150 k/mm3 (150-375); Red Blood Count 3.93 M/mm3 (4.2-5.4); Red Cell Distribution Width 12.4 % (11.5-14.5); White Blood Count 5.5 K/mm3 (4.5-10.0)
[2022-07-05 11:45] LABS: Alanine Aminotransferase 18 U/L (6-35); Albumin Level 3.8 g/dL (3.5-5.1); Alkaline Phosphatase 129 U/L (38-126); Anion Gap 3 mmol/L (8-16); Aspartate Amino Transferase 25 U/L (14-36); Bilirubin,Total 0.7 mg/dL (0.2-1.3); Blood Urea Nitrogen 21 mg/dL (7-17); Calcium 9.4 mg/dL (8.4-10.2); Carbon Dioxide 27 mmol/L (22-30); Chloride 107 mmol/L (98-107); Cholesterol 132 mg/dL (0-200); Estimated Glomerular Filt Rate > 60; Glucose 96 mg/dL (65-110); HDL Direct 55 mg/dL; Phosphorus 3.1 mg/dL (2.5-4.5); Potassium 4.1 mmol/L (3.4-5.0); Sodium 137 mmol/L (137-145); Triglycerides 109 mg/dL (<150)
[2022-07-05 11:56] LABS: LDL Cholesterol Direct 51 mg/dL
[2022-07-09 09:09] LABS: Tacrolimus Prograf 5.2 mcg/L
== END 2022-07-27 23:59 | disposition home or self-care (01) ==
LOC: ANHLAB 10:39
PROVIDERS: PCP Family Medicine; Visit Provider Internal Medicine Nephrology
DX: E78.5 Hyperlipidemia, unspecified (principal); Z94.0 Kidney transplant status; Z79.899 Other long term (current) drug therapy
CPT/HCPCS: 36415; 80061; 80069; 80076; 80197; 85025

== ENCOUNTER 2022-10-04 10:40 | Outpatient (RCR) | payer MEDICARE, OTHER, SELFPAY ==
[2022-09-06 12:21] LABS: Alanine Aminotransferase 20 U/L (6-35); Albumin Level 3.9 g/dL (3.5-5.1); Alkaline Phosphatase 123 U/L (38-126); Aspartate Amino Transferase 26 U/L (14-36); Bilirubin,Total 0.9 mg/dL (0.2-1.3)
[2022-10-04 11:57] LABS: Alanine Aminotransferase 18 U/L (6-35); Alkaline Phosphatase 99 U/L (38-126); Aspartate Amino Transferase 27 U/L (14-36); Bilirubin,Total 1.2 mg/dL (0.2-1.3)
== END 2022-12-05 23:59 | disposition home or self-care (01) ==
LOC: ANHLAB 10:40
PROVIDERS: PCP Family Medicine; Visit Provider Internal Medicine Nephrology
DX: Z94.0 Kidney transplant status (principal)
CPT/HCPCS: 36415; 80076

== ENCOUNTER 2022-11-07 01:37 | Inpatient (IN) | payer MEDICARE, OTHER, SELFPAY ==
[2022-11-07] VITALS (17 sets, daily range): BP systolic 134–199; BP diastolic 76–95; PULSE 68–82; RESP 18–28; TEMP 36.1–37; O2SAT 91–100; BMI 21.7
--- NOTE | 2022-11-07 | ECHO_ITS ---
Patient Info Name: Juliet Dunlap Age: 87 years : 1935 Gender: Female Ht: 67 in Wt: 119 lbs BSA: 1.59 m2 HR: 74 bpm BP: 141 / 84 mmHg Technical Quality: Poor Exam Date: 11/07/2022 11:34 AM Exam Location: [facility] Pulmonary Exam Room: 248 Patient Status: Inpatient Admit Date: 11/07/2022 Staff Ordering Physician: Albaro Richter Ball Winder: Bety Johnson RDCS Attending Provider: Adore Osborne MD Referring Physician: Rober LOCK; Exam Type: CA echo doppler color flow Study Info Indications - sob edema Complete two-dimensional, color flow and Doppler transthoracic echocardiogram is performed. Summary 1. Complete two-dimensional, color flow and Doppler transthoracic echocardiogram is performed. 2. Technically suboptimal study due to poor sonographic images. 3. Left ventricular chamber dimension is normal. 4. Left ventricular systolic function is normal, estimated at 60-65%. 5. There is moderate concentric increased left ventricular wall thickness. 6. The left ventricular diastolic function is abnormal. 7. E/e' 26 is elevated. 8. Global longitudinal strain is normal at -17.9%. 9. Left atrial chamber dimension is severely enlarged. 10. Right atrial chamber dimension is mildly enlarged. 11. The aortic valve is not well visualized. Cannot determine number of aortic valve leaflets. 12. There is mild aortic valve stenosis based on a peak velocity of 194 cm/s, mean gradient of 7 mmHg, and aortic valve area of 2.1 cm2. 13. There is moderate aortic valve sclerosis. 14. The mitral valve has not well visualized and severely calcified annulus. 15. There is mild tricuspid valve regurgitation. 16. Moderate pulmonary hypertension, estimated pulmonary arterial systolic pressure is 50 mmHg. Left Ventricle E/e' 26 is elevated. Global longitudinal strain is normal at -17.9%. Technically suboptimal study due to poor sonographic images. Left ventricular chamber dimension is normal. Left ventricular systolic function is normal, estimated at 60-65%. There is moderate concentric increased left ventricular wall thickness. The left ventricular diastolic function is abnormal. Right Ventricle Right ventricular systolic function is normal and with normal TAPSE 2.3 cm. Right ventricular chamber dimension is normal. Left Atria Left atrial chamber dimension is severely enlarged. Right Atria Right atrial chamber dimension is mildly enlarged. Aortic Valve The aortic valve is not well visualized. Cannot determine number of aortic valve leaflets. There is mild aortic valve stenosis based on a peak velocity of 194 cm/s, mean gradient of 7 mmHg, and aortic valve area of 2.1 cm2. There is moderate aortic valve sclerosis. There is no aortic valve regurgitation. Pulmonic Valve There is no pulmonic regurgitation. Mitral Valve The mitral valve has not well visualized and severely calcified annulus. There is no mitral valve stenosis. There is no mitral valve regurgitation. Tricuspid Valve There is mild tricuspid valve regurgitation. Moderate pulmonary hypertension, estimated pulmonary arterial systolic pressure is 50 mmHg. Pericardium/Pleural There is no pericardial effusion. Inferior Vena Cava Normal inferior vena cava with >50% collapse upon inspiration consistent with normal right atrial pressure, 5 mmHg. Aorta The aortic root size at the sinus of Valsalva is normal. Left Ventricular Outflow Tract Name Value Normal
--- NOTE | ~2022-11-07 | XR_ITS ---
XR chest 1V portable 11/13/2022 08:21 Indication: Covid pneumonia Procedure: AP portable chest Comparison: Comparison to multiple prior studies sequentially, with oldest reviewed study dated 11/2022. Findings: Cardiomegaly. Mild interstitial edema. Small pleural effusions. No pneumothorax. No acute o sseous abnormality. Impression: 1: Cardiomegaly with interstitial edema. 2: Small pleural effusions. Reviewed, dictated and finalized at location L. Impression: 1: Cardiomegaly with interstitial edema. 2: Small pleural effusions.
--- NOTE | ~2022-11-07 | CT_ITS ---
EXAMINATION: CTA chest PE protocol DATE: 11/08/2022 14:29 INDICATION: Shortness of breath. TECHNIQUE: Computed tomography angiography (CTA) of the chest was performed with 100 mL Omnipaque-350 intravenous contrast timed to evaluate the pulmonary arteries. Coronal maximum intensity projection 3D-reconstructions were created by the technologist. Automated exposure control and iterative reconst ruction technique were employed. The dose-length product was 290.85 mGy-cm. COMPARISON: None. FINDINGS: There is septal thickening in the lungs, consistent with pulmonary edema. There is a modera te-sized left pleural effusion. There is dependent atelectasis on the left. Cardiomegaly is noted. Th ere are coronary artery calcifications. No pericardial effusion. The central pulmonary arteries are e nlarged, consistent with pulmonary arterial hypertension. There is no pulmonary embolus. There is an umbilical hernia containing fat. There is severe atrophy of the kidneys. There is moderate thoracic s pondylosis and severe cervical spondylosis. There is a chronic compression fracture of T3. IMPRESSION: 1. No pulmonary embolus. 2. Mild pulmonary edema. 3. Moderate-sized left pleural effusion. Reviewed, dictated and finalized at location A.
--- NOTE | ~2022-11-07 | US_ITS ---
EXAMINATION: US venous doppler [facility] DATE: 11/10/2022 17:52 INDICATION: Right lower limb pain. Covid positive. TECHNIQUE: Grayscale images without and with compression and Doppler images of the bilateral lower ex tremity veins were obtained. COMPARISON: None FINDINGS: Acute deep venous thrombosis in the right mid peroneal veins. Greater saphenous vein not visualized. The right common femoral vein, profunda (deep) femoral vein, femoral vein, popliteal vein, posterior tibial veins, and gastrocnemius vein vein are patent. Greater saphenous vein not visualized. The left common femoral vein, profunda (deep) femoral vein, f emoral vein, popliteal vein, peroneal vein, posterior tibial veins, and gastrocnemius vein vein are p atent. IMPRESSION: 1. Acute deep venous thrombosis involving the peroneal veins in the right lower extremity. 2. Bilateral greater saphenous veins not visualized, presumably surgically absent. 3. Otherwise patent bilateral lower extremity veins. No evidence of deep venous thrombosis. Results reported telephonically to Debora Hernandez RN by Dr. Pleitez at 6:49 PM on 11/10/2022. Reviewed, dictated and finalized at location K. IMPRESSION: 1. Acute deep venous thrombosis involving the peroneal veins in the right lowe r extremity. 2. Bilateral greater saphenous veins not visualized, presumably surgically abse nt. 3. Otherwise patent bilateral lower extremity veins. No evidence of deep venous thrombosis. Results reported telephonically to Debora Hernandez RN by Dr. Pleitez at 6:49 PM on 11/10/2022.
--- NOTE | ~2022-11-07 | CT_ITS ---
EXAMINATION: CT brain wo con DATE: 11/08/2022 23:36 INDICATION: Headache. TECHNIQUE: Computed tomography (CT) of the head was performed without intravenous contrast. The mA wa s adjusted according to patient size. Iterative reconstruction technique was employed. The dose-lengt h product was 605.33 mGy-cm. COMPARISON: Head CT 03/19/2020 FINDINGS: There is a small old infarct in left cerebellum. There is an old lacunar infarct in the lef t caudate nucleus. There are scattered areas of low attenuation in the cerebral white matter. There i s no intracranial hemorrhage, acute infarction, or abnormal intracranial mass lesion. The ventricles are normal in size. There are likely changes of ocular lens replacement surgeries. 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 There is mild mucosal thickening in the ethmoid sinuses. The mastoid air cells are normal. IMPRESSION: 1. 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 2. Stable moderate nonspecific cerebral white matter disease, which likely represents chronic small v essel ischemic disease. Reviewed, dictated and finalized at location A. IMPRESSION: 1. 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 2. Stable moderate nonspecific cerebral white matter disease, which likely repr esents chronic small vessel ischemic disease.
--- NOTE | ~2022-11-07 | US_ITS ---
EXAMINATION: US renal BI DATE: 11/10/2022 13:22 INDICATION: Worsening kidney disease TECHNIQUE: Multiple ultrasound grayscale images of the kidneys were obtained. COMPARISON: None. FINDINGS: The [place] kidneys are not visualized at either the left or right renal fossae and appear severely at rophic on chest CT dated 11/08/2022. There is a transplant kidney in the right renal pelvis which measu res 8.9 x 4.7 x 4.4 cm. The transplant kidney demonstrates normal echogenicity. There is no hydroneph rosis or evident shadowing nephrolithiasis. Small amount of hyperechoic and shadowing likely intralum inal gas within the decompressed bladder with a Rosales catheter reportedly in place. The bladder decom pression limits further evaluation. IMPRESSION: 1. Normal right pelvic transplant kidney. 2. Severely atrophic bilateral [place] kidneys seen on prior CT are unable to be identified on ultraso und imaging. Reviewed, dictated and finalized at location A. IMPRESSION: 1. Normal right pelvic transplant kidney. 2. Severely atrophic bilateral [place] kidneys seen on prior CT are unable to be identified on ultrasound imaging.
--- NOTE | ~2022-11-07 | XR_ITS ---
Portable chest x-ray Comparison: 11/10/2022 Clinical History: Shortness of breath Findings: Small bilateral pleural effusions are present. There is mild pulmonary edema pattern. Poss ible underlying COPD. Cardiomediastinal silhouette is stable. Bones and soft tissues are unremarkabl e. Impression: Small bilateral pleural effusions with mild pulmonary edema pattern. Possible underlying COPD. Reviewed, dictated and finalized at location . Impression: Small bilateral pleural effusions with mild pulmonary edema pattern. Possible underlying COPD.
--- NOTE | ~2022-11-07 | US_ITS ---
EXAMINATION: US venous doppler [facility] DATE: 11/10/2022 17:52 INDICATION: Left humeral fistula. Covid positive. TECHNIQUE: Grayscale ultrasound images without and with compression and Doppler ultrasound images of the bilateral upper extremity veins were obtained. COMPARISON: None. FINDINGS: The visualized portions of the bilateral internal jugular vein, subclavian vein, axillary vein, brach ial veins, basilic vein, cephalic vein, radial vein, and ulnar vein are patent. Left upper extremity fistula is patent. IMPRESSION: 1. No deep venous thrombosis. Reviewed, dictated and finalized at location K.
--- NOTE | ~2022-11-07 | XR_ITS ---
EXAMINATION: XR chest 1V portable DATE: 11/08/2022 22:09 INDICATION: Shortness of breath. Increased oxygen requirement. TECHNIQUE: A single frontal view of the chest was obtained. COMPARISON: Chest 2 views 11/07/2022, chest CT 11/08/2022 FINDINGS: There is a moderate-sized left pleural effusion. There is a diffuse interstitial pattern in the lungs, consistent with pulmonary edema. No pneumothorax. Cardiomegaly is noted. IMPRESSION: 1. Mild pulmonary edema. 2. Stable moderate-sized left pleural effusion. 3. Cardiomegaly. Reviewed, dictated and finalized at location A.
--- NOTE | ~2022-11-07 | US_ITS ---
EXAMINATION: US thoracentesis DATE: 11/09/2022 16:02 INDICATION: pleural effusion TECHNIQUE: The procedure and its risks, benefits, and alternatives were discussed with the patient. P otential risks discussed included bleeding, infection, and pneumothorax. The patient understood the r isks and agreed to proceed. The skin was prepped and draped in sterile fashion. 1% lidocaine was used for local anesthesia. Under ultrasound guidance, a 5 Fr catheter with trochar was advanced into the left pleural effusion. Fluid was aspirated. The catheter was removed, and a dressing was applied. The re were no immediate complications. FINDINGS: Ultrasound images demonstrate a left pleural effusion and the catheter within the fluid. IMPRESSION: 1. Successful ultrasound-guided thoracentesis yielding 500 mL of yellow fluid. Reviewed, dictated and finalized at location A.
--- NOTE | ~2022-11-07 | XR_ITS ---
EXAMINATION: XR_[id number]_CR DATE: 11/09/2022 14:53 INDICATION: Left pleural effusion status post thoracentesis. TECHNIQUE: Frontal and lateral views of the chest were obtained. COMPARISON: Chest single view 11/08/2022 FINDINGS: There is mild atelectasis in left lower lung zone. No pleural effusion or pneumothorax. Car diomegaly is noted. IMPRESSION: 1. Mild atelectasis in left lower lung zone. 2. Cardiomegaly. Reviewed, dictated and finalized at location A.
--- NOTE | ~2022-11-07 | XR_ITS ---
Clinical Indication: Shortness of breath PA and lateral views of the chest: Comparison: None Findings: Moderate left pleural effusion is present. Probable COPD pattern of the lungs. Cardiomedia stinal silhouette is mildly prominent. Bones and soft tissues are unremarkable. Impression: Moderate left pleural effusion. COPD. Reviewed, dictated and finalized at [facility]. Impression: Moderate left pleural effusion. COPD.
--- NOTE | ~2022-11-07 | XR_ITS ---
EXAMINATION: XR chest 1V portable DATE: 11/10/2022 11:38 INDICATION: Shortness of breath. TECHNIQUE: A single frontal view of the chest was obtained. COMPARISON: Chest 2 views 11/09/22 FINDINGS: The patient is rotated to her right. There are airspace opacities in left mid and lower kaylah g zones and right lung base. Jillian B-lines are noted, consistent with pulmonary edema. There are sma ll pleural effusions. No pneumothorax. Cardiomegaly is noted. IMPRESSION: 1. Worsened diffuse lung disease, likely mild pulmonary edema and basilar atelectasis. Pneumonia cierra ot be excluded. 2. Worsened small pleural effusions. 3. Cardiomegaly. Reviewed, dictated and finalized at location A. IMPRESSION: 1. Worsened diffuse lung disease, likely mild pulmonary edema and basilar atele ctasis. Pneumonia cannot be excluded. 2. Worsened small pleural effusions. 3. Cardiomegaly.
--- NOTE | 2022-11-07 01:43 | ECG_ITS ---
Measurements Intervals [place] Rate: 77 P: 21 NE: 204 QRS: 3 QRSD: 90 T: 3 QT: 371 QTc: 422 Interpretive Statements SINUS RHYTHM WITH SINUS ARRHYTHMIA BORDERLINE AV CONDUCTION DELAY BORDERLINE R WAVE PROGRESSION, ANTERIOR LEADS BASELINE ARTIFACT- I, II, III, AVR, AVL, AVF, V6 BORDERLINE ECG NO PREVIOUS ECG AVAILABLE FOR COMPARISON Electronically Signed On 11-07-2022 6:48:54 CDT by Kyler Wright D.O.
--- NOTE | 2022-11-07 02:12 | ED.SOB ---
HPI - SOB/Dyspnea General Chief Complaint: Shortness of Breath/Dyspnea Stated Complaint: sob Time Seen by Provider: 11/07/22 01:44 History of Present Illness HPI Narrative: Patient is an 87-year-old female with a history of renal transplant, hypertension, hypothyroidism presenting with shortness of breath. Patient states that tonight she was unable to breathe while lying flat. States that her breathing improved if she sat up or stood up. States that she became concerned that she would worsen. She denies chest pain. Denies significant leg swelling. States that she has been feeling rundown since having COVID a couple months ago. States that she has been on ciprofloxacin for the last 10 days for a kidney infection. She denies headache, fevers, abdominal pain, nausea or vomiting, diarrhea, dysuria. Related Data Home Medications Medication Instructions Recorded Confirmed acyclovir 200 mg capsule 200 mg PO BID 03/28/20 11/07/22 aspirin 81 mg tablet,delayed 81 mg PO DAILY 03/28/20 11/07/22 release (Adult Low Dose Aspirin) cholecalciferol (vitamin D3) 50 50 mcg PO DAILY 03/28/20 11/07/22 mcg (2,000 unit) tablet cyanocobalamin (vitamin B-12) 100 1,000 mcg PO DAILY 03/28/20 11/07/22 mcg tablet levothyroxine 100 mcg tablet 100 mcg PO DAILY 03/28/20 11/07/22 lisinopril 10 mg tablet 10 mg PO DAILY 03/28/20 11/07/22 metoprolol tartrate 75 mg tablet 75 mg PO Q12H 03/28/20 11/07/22 prednisone 5 mg tablet 5 mg PO DAILY 03/28/20 11/07/22 tacrolimus 0.5 mg capsule, 1 mg PO Q12H 02/27/22 11/10/22 immediate-release amlodipine 10 mg tablet 10 mg PO DAILY 11/07/22 11/07/22 cephalexin 500 mg capsule 500 mg PO DAILY 11/07/22 11/07/22 Allergies Allergy/AdvReac Type Severity Reaction Status Date / Time codeine Allergy Intermediate Flushing Verified 02/27/22 11:35 nitrofurantoin Allergy Intermediate Rash on Verified 02/27/22 11:35 legs tetracycline Allergy Intermediate Rash Verified 02/27/22 11:35 CEPHALEXIN MONOHYDRATE Allergy Unknown Unknown Uncoded 02/27/22 11:02 NITROFURANTOIN MACROCRYSTAL Allergy Unknown Unknown Uncoded 02/27/22 11:02 Review of Systems Review of Systems: All systems reviewed & are unremarkable except as noted in HPI and below PMFSH Past Medical History Medical History Azotemia Blood clotting disorder C2 cervical fracture Contusion of right chest wall COVID-19 Fall down stairs Hyperkalemia Hyperlipidemia Hypertension Hypothyroidism (acquired) Immunosuppressed status Lack of appetite Osteoporosis Renal insufficiency Shingles Stage 5 chronic kidney disease Surgical History Surgical History H/O cataract extraction H/O parathyroidectomy Kidney replaced by transplant Renal transplant recipient Family History Family History Mother , Age 67 Pancreatic Cancer No problems noted. Father , Age 63 [place] Acute myocardial infarction Hypertension Grandparent , Renal Disease No problems noted. Grandparent , Unknown No problems noted. Grandparent , Age 85 Stroke No problems noted. Grandparent , Age 84 Unknown Cause No problems noted. Sibling , Age 86 Stroke. Diabetes mellitus Social History Social History Social History: patient currently lives with her Luis E. They had 2 daughters. Patient elects her son-in-law Tima who is a radiology resident to be her surrogate. 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 patient wishes to be a full code at this time however wants no heroic measures when it comes to length of time and does not want to live on machines Smoking status: Never smoker Alcohol intake: nev
[2022-11-07 02:18] LABS: Basophils Percent Auto 0.5 % (0.2-1.2); Eosinophils Absolute Auto 0.1 K/mm3 (0-0.3); Hematocrit 41.8 % (37.0-47.0); Hemoglobin 13.3 g/dL (12.0-15.0); Immature Granulocyte Absolute 0.02 K/mm3 (0.00-0.031); Immature Granulocyte Percent A 0.3 % (0-0.5); Immature Platelet Fraction Pct 4.3 % (0.9-11.2); Lymphocytes Absolute Auto 0.49 K/mm3 (0.9-3.2); Lymphocytes Percent Auto 8.3 % (18.3-44.2); Mean Corpuscular HGB Conc 31.8 g/dl (32-36); Mean Corpuscular Hemoglobin 33.5 pg (26-34); Mean Corpuscular Volume 105.3 fl (80-100); Mean Platelet Volume 10.6 fl (7.4-10.4); Monocytes Absolute Auto 0.7 K/mm3 (0.1-0.6); Monocytes Percent Auto 11.5 % (2.6-8.5); Neutrophils Absolute Auto 4.6 K/mm3 (1.3-6.7); Neutrophils Percent Auto 77.4 % (45.5-73.1); Platelet Count Result 138 k/mm3 (150-375); Red Blood Count 3.97 M/mm3 (4.2-5.4); Red Cell Distribution Width 13.6 % (11.5-14.5); White Blood Count 5.9 K/mm3 (4.5-10.0)
[2022-11-07 02:28] LABS: Alanine Aminotransferase 20 U/L (6-35); Alkaline Phosphatase 127 U/L (38-126); Anion Gap 8 mmol/L (8-16); Aspartate Amino Transferase 27 U/L (14-36); Bilirubin,Total 0.9 mg/dL (0.2-1.3); Blood Urea Nitrogen 27 mg/dL (7-17); Calcium 9.3 mg/dL (8.4-10.2); Carbon Dioxide 26 mmol/L (22-30); Chloride 104 mmol/L (98-107); Estimated CRCL calculation 37 ml/min; Estimated Glomerular Filt Rate > 60; Glucose 98 mg/dL (65-110); Potassium 4.2 mmol/L (3.4-5.0); Sodium 138 mmol/L (137-145)
[2022-11-07 02:54] LABS: Platelet Estimate Adequate (Adequate)
[2022-11-07 02:55] LABS: Poikilocytosis 2+ (NORMAL)
[2022-11-07 02:56] LABS: Anisocytosis 1+ (NORMAL); Crenated RBC 2+ (NORMAL)
[2022-11-07 02:57] LABS: Acanthocytes 1+ (NORMAL); Burr Cells 2+ (NORMAL); Schistocytes None Seen (NORMAL)
[2022-11-07 03:03] LABS: INR 1.2
[2022-11-07 03:04] LABS: Partial Thromboplastin Time 29.1 SECONDS (22.3-36.8)
[2022-11-07 03:05] LABS: Troponin I < 0.012 ng/mL (0.000-0.034)
--- NOTE | 2022-11-07 04:16 | PC.NURSE ---
Called Chemistry to add a BNP. Spoke with Maryann in the lab.
[2022-11-07 04:19] LABS: Influenza A QL RT-PCR Negative (Negative); Influenza B QL RT-PCR Negative (Negative); RSV RNA, RT-PCR Negative (Negative); SARS-CoV-2 RNA PCR Negative (Negative)
[2022-11-07 04:36] LABS: NT Pro B Type Natriuretic Pept 3420 pg/mL (19.9-100)
[2022-11-07 05:07] LABS: Troponin I < 0.012 ng/mL (0.000-0.034)
[2022-11-07] MEDS: FUROSEMIDE INJ 40 MG/4 ML VIAL IV PUSH ×2 (05:20→08:43)
[2022-11-07] MEDS: lisinopriL 10 MG TABLET PO ×2 (05:25→08:44)
[2022-11-07] MEDS: METOPROLOL TARTRATE TAB 25 MG, METOPROLOL TARTRATE TAB 50 MG 75 MG PO (05:25)
--- NOTE | 2022-11-07 06:37 | ADMGEN ---
This patient, Juliet Dunlap, was admitted to Medical Room 248-. Patient/family oriented to hospital policies and general routines including ID bracelet, bed and alarms, visiting hours, pain management, procedures, bathroom and other care routines, personal items, smoking policy, room service/diet, and visiting hours. Information on how to activate the Rapid Response Team has been discussed. Patient/Family are encouraged to report perceived risks to care and to ask questions if they do not understand what they are told or what they should do.
[2022-11-07] MEDS: TACROLIMUS 0.5 MG CAPSULE 2 MG PO ×2 (08:43→20:50)
[2022-11-07] MEDS: predniSONE 5 MG TABLET PO (08:44)
[2022-11-07] MEDS: ACYCLOVIR 200 MG CAPSULE PO ×2 (08:44→17:37)
[2022-11-07] MEDS: SERTRALINE HCL 50 MG TABLET PO (08:44)
[2022-11-07] MEDS: CHOLECALCIFEROL 1,000 UNITS TABLET 2000 UNITS PO (08:44)
[2022-11-07] MEDS: METOPROLOL TARTRATE 25 MG TABLET 75 MG PO ×2 (08:44→20:50)
[2022-11-07] MEDS: ASPIRIN 81 MG ENTERIC TABLET PO (08:44)
[2022-11-07] MEDS: amLODIPine BESYLATE 5 MG TABLET 10 MG PO (08:45)
[2022-11-07] MEDS: CYANOCOBALAMIN 1,000 MCG TABLET 1000 MCG PO (08:45)
[2022-11-07 09:13] LABS: Troponin I 0.016 ng/mL (0.000-0.034)
--- NOTE | 2022-11-07 10:00 | PM.IMHP ---
H&P: HPI History of Present Illness Date/Time: 11/07/22999 Chief Complaint: shortness of breath when laying flat Narrative: Patient is an 87 year old female with a past medical history of kidney transplant, HTN, HLD, hypothyroidism who presented to the ED with complaints of shortness of breath while laying flat, and urinary dysfunction. Patient stated that it all started around Smith time when she was noted to have a positive urine culture and the patient was given option of the infusion or ciprofloxacin or waited out as she was not having any symptoms. The patient did decide to have the ciprofloxacin even though she does have an allergy to it. Patient also stated that she in August had COVID and got an infusion or fluids on September 19. Upon review of her medical record and medicines patient was prescribed ciprofloxacin on 10/28/2022 for 5 days. However patient states that her last day of taking a pill was yesterday. Which would have been 10 days. Patient also stated that she is not able to urinate has not been able to urinate as much as she should for a really long time which she claims it to have started the end of August beginning of September. Patient did state that she leaks, however she stated that she does not feel that she is urinating enough like a normal person should or like she is used to. Patient stated that every morning when she wakes up that she is very weak and very tired does have any strength. She stated that she has felt like this and she has had COVID. Patient denies measuring her urine or even knowing what her output really is. patient also stated that she has been having some issues lying flat as she is unable to breathe. She stated that when she sits up the breathing gets better and she is able to do more. She also stated when she sits up she has been coughing up a thick white sputum. She has also been experiencing some dizziness lately and has had a recent fall but has been trying to be careful. She denies any chest pain, nausea, vomiting, headaches, lightheadedness, abnormal swelling the bilateral lower extremities. she did state that she has intermittent constipation intermittent diarrhea and goes either way at times. Upon arrival to the ED it was noted that the patient had a BNP of 3420. Chest x-ray showed a left moderate pleural effusion. BUN and creatinine are 27/0.80. Echo has been ordered and pending. Patient is being admitted to the hospitalist service and patient this time Review of Systems Review of Systems: All systems reviewed & are unremarkable except as noted in HPI and below PMFSH Past Medical History Medical History Azotemia Blood clotting disorder C2 cervical fracture Contusion of right chest wall COVID-19 Fall down stairs Hyperkalemia Hyperlipidemia Hypertension Hypothyroidism (acquired) Immunosuppressed status Lack of appetite Osteoporosis Renal insufficiency Shingles Stage 5 chronic kidney disease Surgical History Surgical History H/O cataract extraction H/O parathyroidectomy Kidney replaced by transplant Renal transplant recipient Family History Family History Mother , Age 67 Pancreatic Cancer No problems noted. Father , Age 63 [place] Acute myocardial infarction Hypertension Grandparent , Renal Disease No problems noted. Grandparent , Unknown No problems noted. Grandparent , Age 85 Stroke No problems noted. Grandparent , Age 84 Unknown Cause No problems noted. Sibling , Age 86 Stroke. Diabetes mellitus Social History Social History Social History: patient currently lives with her hus
[2022-11-07] MEDS: ACETAMINOPHEN 500 MG TABLET 1000 MG PO (12:31)
[2022-11-07] MEDS: DOCUSATE SODIUM 100 MG CAPSULE PO (17:37)
[2022-11-07] MEDS: PRAVASTATIN SODIUM 20 MG TABLET PO (20:50)
[2022-11-08] VITALS (13 sets, daily range): BP systolic 118–167; BP diastolic 57–73; PULSE 67–85; RESP 16–18; TEMP 36.4–36.7; O2SAT 90–98
[2022-11-08 05:16] LABS: Basophils Percent Auto 0.4 % (0.2-1.2); Eosinophils Absolute Auto 0.1 K/mm3 (0-0.3); Eosinophils Percent Auto 0.9 % (0-4.4); Hematocrit 41.1 % (37.0-47.0); Hemoglobin 13.2 g/dL (12.0-15.0); Immature Granulocyte Absolute 0.02 K/mm3 (0.00-0.031); Immature Granulocyte Percent A 0.4 % (0-0.5); Immature Platelet Fraction Pct 3.1 % (0.9-11.2); Lymphocytes Absolute Auto 0.34 K/mm3 (0.9-3.2); Lymphocytes Percent Auto 6.1 % (18.3-44.2); Mean Corpuscular HGB Conc 32.1 g/dl (32-36); Mean Corpuscular Hemoglobin 32.4 pg (26-34); Mean Platelet Volume 10.3 fl (7.4-10.4); Monocytes Absolute Auto 0.6 K/mm3 (0.1-0.6); Monocytes Percent Auto 10.4 % (2.6-8.5); Neutrophils Absolute Auto 4.6 K/mm3 (1.3-6.7); Neutrophils Percent Auto 81.8 % (45.5-73.1); Platelet Count Result 126 k/mm3 (150-375); Red Blood Count 4.07 M/mm3 (4.2-5.4); Red Cell Distribution Width 13.2 % (11.5-14.5); White Blood Count 5.6 K/mm3 (4.5-10.0)
[2022-11-08 05:38] LABS: Alanine Aminotransferase 17 U/L (6-35); Albumin Level 4.1 g/dL (3.5-5.1); Alkaline Phosphatase 75 U/L (38-126); Anion Gap 9 mmol/L (8-16); Aspartate Amino Transferase 26 U/L (14-36); Bilirubin,Total 1.3 mg/dL (0.2-1.3); Blood Urea Nitrogen 27 mg/dL (7-17); Calcium 9.5 mg/dL (8.4-10.2); Carbon Dioxide 26 mmol/L (22-30); Chloride 101 mmol/L (98-107); Estimated CRCL calculation 46 ml/min; Estimated Glomerular Filt Rate > 60; Glucose 105 mg/dL (65-110); Magnesium 1.3 mg/dL (1.6-2.3); Potassium 3.9 mmol/L (3.4-5.0); Sodium 136 mmol/L (137-145)
[2022-11-08] MEDS: LEVOTHYROXINE SODIUM 100 MCG TABLET PO (05:44)
[2022-11-08] MEDS: MAGNESIUM SULF 4 GM/WATER100ML 4 GM/100 ML BAG IVPB (07:49)
[2022-11-08] MEDS: amLODIPine BESYLATE 5 MG TABLET 10 MG PO (09:16)
[2022-11-08] MEDS: ENOXAPARIN 40 MG/0.4 ML SYRINGE SUB-Q (09:16)
[2022-11-08] MEDS: predniSONE 5 MG TABLET PO (09:17)
[2022-11-08] MEDS: ASPIRIN 81 MG ENTERIC TABLET PO (09:17)
[2022-11-08] MEDS: CYANOCOBALAMIN 1,000 MCG TABLET 1000 MCG PO (09:17)
[2022-11-08] MEDS: SERTRALINE HCL 50 MG TABLET PO (09:17)
[2022-11-08] MEDS: ACYCLOVIR 200 MG CAPSULE PO ×2 (09:17→16:55)
[2022-11-08] MEDS: CHOLECALCIFEROL 1,000 UNITS TABLET 2000 UNITS PO (09:17)
[2022-11-08] MEDS: METOPROLOL TARTRATE 25 MG TABLET 75 MG PO ×2 (09:18→20:54)
[2022-11-08] MEDS: TACROLIMUS 0.5 MG CAPSULE 2 MG PO ×2 (09:18→20:54)
[2022-11-08] MEDS: lisinopriL 10 MG TABLET PO (09:18)
[2022-11-08] MEDS: FUROSEMIDE INJ 40 MG/4 ML VIAL IV PUSH ×3 (09:19→22:52)
[2022-11-08 09:27] LABS: Vitamin D 25 Hydroxy 52.1 ng/mL
[2022-11-08 09:43] LABS: Folic Acid 16.8 ng/mL (2.76->20)
--- NOTE | 2022-11-08 10:15 | PM.IMPN ---
Progress Note: A&P Assessment and Plan (1) Diastolic heart failure: Qualifiers: Heart failure chronicity: acute on chronic Qualified Code(s): I50.33 - Acute on chronic diastolic (congestive) heart failure Code(s): I50.30 - Unspecified diastolic (congestive) heart failure Status: Acute Assessment and Plan: Presented to the ED with complaints of shortness of breath with laying flat and relieved with elevation Echo from 2021 showed EF of 70% appears to be an acute exacerbation of diastolic heart failure Echo EF of 60-65%, abnormal diastolic function H2FPEF score is 91.1% BNP elevated at 3420 trace edema noted daily weights Continue Lasix at 40mg IV intermittently need to trend renal function to avoid damage trend urine output Continue metoprolol, lisinopril CTA showed pulmonary edema and moderate size left pleural effusion family did provide me with the old echo which did pretty much match up with the echo done here. (2) Pulmonary hypertension: Code(s): I27.20 - Pulmonary hypertension, unspecified Status: Acute Assessment and Plan: Echo showed pulmonary hypertension at 50 Consult cardiology for further advise could be related to the heart failure D.Dimer 2.90 CTA no pulmonary embolus noted (3) Generalized weakness: Code(s): R53.1 - Weakness Status: Acute Assessment and Plan: Describes weakness as body aches, general malaise, lack of energy could be from a long stent covid B12 >1000, Folic acid 16.8, and Vit D 52.1 heart failure and pulmonary hypertension could also be contributing Encourage PO intake supplement changes as indicated (4) Dysuria: Code(s): R30.0 - Dysuria Status: Acute Assessment and Plan: Complaints of not being able to urinate trend urine output UA was neg Awaiting to be collected Trend symptoms (5) Renal transplant, status post: Code(s): Z94.0 - Kidney transplant status Status: Acute Assessment and Plan: S/P renal transplant in Feb 2013 Trend urine output continue home tacrolimus Consider pure wick to get accurate urine output (6) Hypertension: Qualifiers: Hypertension type: essential hypertension Qualified Code(s): I10 - Essential (primary) hypertension Code(s): I10 - Essential (primary) hypertension Status: Acute Assessment and Plan: Current blood pressure is 118/61 Could be elevated related to CHF, fluid overload Continue home lisinopril, metoprolol, amlodipine adjust therapy as indicated (7) Hyperlipidemia: Qualifiers: Hyperlipidemia type: pure hypercholesterolemia Qualified Code(s): E78.00 - Pure hypercholesterolemia, unspecified Code(s): E78.5 - Hyperlipidemia, unspecified Status: Acute Assessment and Plan: Continue simvastatin (8) Severe protein-calorie malnutrition: Code(s): E43 - Unspecified severe protein-calorie malnutrition Status: Acute Assessment and Plan: Lost about 30lbs since July she has no appetite eats possibly a meal daily will add supplement Unix Analyst consult (9) Pleural effusion on left: Code(s): J90 - Pleural effusion, not elsewhere classified Status: Acute Assessment and Plan: Chest xray and CTA take note of moderate left sided pleural effusion Most likely contributing to the shortness of breath Most likely related and collecting from the CHF exacerbation Consider thoracentesis, along with respective labs and testing Continue treatments as stated above Plan Family was present today when talking with the patient. They did provide me with records for [facility]. Echo did not appear to be much different. Upon walking into the room questions were made about the echo here being done and rep
--- NOTE | 2022-11-08 10:15 | P.PNIM_ITS ---
Progress Note: A&P Assessment and Plan (1) Diastolic heart failure: Qualifiers: Heart failure chronicity: acute on chronic Qualified Code(s): I50.33 - Acute on chronic diastolic (congestive) heart failure Code(s): I50.30 - Unspecified diastolic (congestive) heart failure Status: Acute Assessment and Plan: * Presented to the ED with complaints of shortness of breath with laying flat and relieved with elevation * Echo from 2021 showed EF of 70% * appears to be an acute exacerbation of diastolic heart failure * Echo EF of 60-65%, abnormal diastolic function * H2FPEF score is 91.1% * BNP elevated at 3420 * trace edema noted * daily weights * Continue Lasix at 40mg IV intermittently * need to trend renal function to avoid damage * trend urine output * Continue metoprolol, lisinopril * CTA showed pulmonary edema and moderate size left pleural effusion family did provide me with the old echo which did pretty much match up with the echo done here. (2) Pulmonary hypertension: Code(s): I27.20 - Pulmonary hypertension, unspecified Status: Acute Assessment and Plan: * Echo showed pulmonary hypertension at 50 * Consult cardiology for further advise * could be related to the heart failure * D.Dimer 2.90 * CTA no pulmonary embolus noted (3) Generalized weakness: Code(s): R53.1 - Weakness Status: Acute Assessment and Plan: * Describes weakness as body aches, general malaise, lack of energy * could be from a long stent covid * B12 >1000, Folic acid 16.8, and Vit D 52.1 * heart failure and pulmonary hypertension could also be contributing * Encourage PO intake * supplement changes as indicated (4) Dysuria: Code(s): R30.0 - Dysuria Status: Acute Assessment and Plan: * Complaints of not being able to urinate * trend urine output * UA was neg * Awaiting to be collected * Trend symptoms (5) Renal transplant, status post: Code(s): Z94.0 - Kidney transplant status Status: Acute Assessment and Plan: * S/P renal transplant in Feb 2013 * Trend urine output * continue home tacrolimus * Consider pure wick to get accurate urine output (6) Hypertension: Qualifiers: Hypertension type: essential hypertension Qualified Code(s): I10 - Essential (primary) hypertension Code(s): I10 - Essential (primary) hypertension Status: Acute Assessment and Plan: * Current blood pressure is 118/61 * Could be elevated related to CHF, fluid overload * Continue home lisinopril, metoprolol, amlodipine * adjust therapy as indicated (7) Hyperlipidemia: Qualifiers: Hyperlipidemia type: pure hypercholesterolemia Qualified Code(s): E78.00 - Pure hypercholesterolemia, unspecified Code(s): E78.5 - Hyperlipidemia, unspecified Status: Acute Assessment and Plan: * Continue simvastatin (8) Severe protein-calorie malnutrition: Code(s): E43 - Unspecified severe protein-calorie malnutrition Status: Acute Assessment and Plan: * Lost about 30lbs since July * she has no appetite * eats possibly a meal daily * will add supplement * Solar Power Installer consult (9) Pleural effusion on left: Code(s): J90
[2022-11-08 11:17] LABS: Vitamin B12 > 1000.0 pg/mL (239-931)
[2022-11-08 11:17] LABS: Appearance Urine Clear (Clear); Bilirubin Urine Negative (Negative); Blood Urine Negative (Negative); Color Urine Yellow (Yellow); Glucose Urine UA Negative (Negative); Ketones Urine Trace mg/dL (Negative); Leukocyte Esterase Ur Negative LEU/UL (Negative); Nitrate Urine Negative (Negative); Protein Urine Negative (Negative); Specific Grav Ur 1.012 (1.001-1.035); Urobilinogen Urine 0.2 mg/dL (<2.0); pH Urine 5.5 (5.0-9.0)
[2022-11-08 11:23] LABS: Add Urine Microscopic? NO
--- NOTE | 2022-11-08 16:05 | PM.CNCAR ---
Assessment and Plan Assessment and plan (1) Diastolic heart failure: Qualifiers: Heart failure chronicity: acute on chronic Qualified Code(s): I50.33 - Acute on chronic diastolic (congestive) heart failure Code(s): I50.30 - Unspecified diastolic (congestive) heart failure Status: Acute Plan Assesment Acute on chronic diastolic heart failure Left sided pleural effusion Frailty Possible chest infection Hx of kidney transplant HTN controlled Plan Lasix 40 mg IV BID Cont amlodipine, lisinopril and metoprolol F/U renal function History of Present Illness History of Present Illness Consult date/time: 11/08/22 16:05 Reason For Visit: CHF Narrative: patient presented with gradually but progressive worsening SOB that has been present for last 3 months. her SOB is worse with mild activity and lying flat. She also has cough but cant bring up any secrestions out. She had COVID infection in September and has been doing poorly since then. She noted decrease urine out put recently. work up revealed pulm congestion and left side effusion. Review of Systems Review of Systems: all negative except for stated above [facility] Past Medical History Medical History Azotemia Blood clotting disorder C2 cervical fracture Contusion of right chest wall COVID-19 Fall down stairs Hyperkalemia Hyperlipidemia Hypertension Hypothyroidism (acquired) Immunosuppressed status Lack of appetite Osteoporosis Renal insufficiency Shingles Stage 5 chronic kidney disease Surgical History Surgical History H/O cataract extraction H/O parathyroidectomy Kidney replaced by transplant Renal transplant recipient Family History Family History Mother , Age 67 Pancreatic Cancer No problems noted. Father , Age 63 [place] Acute myocardial infarction Hypertension Grandparent , Renal Disease No problems noted. Grandparent , Unknown No problems noted. Grandparent , Age 85 Stroke No problems noted. Grandparent , Age 84 Unknown Cause No problems noted. Sibling , Age 86 Stroke. Diabetes mellitus Social History Social History Social History: patient currently lives with her Luis E. They had 2 daughters. Patient elects her son-in-law Tima who is a compo caster to be her surrogate. 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 patient wishes to be a full code at this time however wants no heroic measures when it comes to length of time and does not want to live on machines Smoking status: Never smoker Alcohol intake: never Substance use: never Substance use type: does not use Lack of Transportation: No Lack of Food: Never True Current Housing: I Have Housing Concerned About Future Housing: No Difficulty Paying Gas/Electric Bills: No Difficulty Paying for Meds: No Currently Unemployed: No Education: Master's Degree or Higher Difficulty w/ Childcare or Family Care: No Living arrangements: with family Occupation/Education: retired 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
[2022-11-08] MEDS: DOCUSATE SODIUM 100 MG CAPSULE PO (16:59)
[2022-11-08] MEDS: PRAVASTATIN SODIUM 20 MG TABLET PO (20:54)
--- NOTE | 2022-11-08 21:51 | ECG_ITS ---
Measurements Intervals [place] Rate: 71 P: 63 [place]: 226 QRS: -6 QRSD: 94 T: 21 QT: 437 QTc: 478 Interpretive Statements SINUS RHYTHM WITH FIRST DEGREE AV BLOCK DELAYED PRECORDIAL R/S TRANSITION BASELINE ARTIFACT- I, II, AVR, AVL, AVF, V1-V6 BORDERLINE ECG COMPARED TO ECG 11/07/2022 01:47:11 NO SIGNIFICANT CHANGES Electronically Signed On 11-09-2022 7:58:59 CDT by Kyler Wright D.O.
[2022-11-08 22:17] LABS: Hematocrit 43.1 % (37.0-47.0); Hemoglobin 14.1 g/dL (12.0-15.0); Mean Corpuscular HGB Conc 32.7 g/dl (32-36); Mean Corpuscular Hemoglobin 33.1 pg (26-34); Mean Corpuscular Volume 101.2 fl (80-100); Mean Platelet Volume 10.1 fl (7.4-10.4); Platelet Count Result 137 k/mm3 (150-375); Red Blood Count 4.26 M/mm3 (4.2-5.4); Red Cell Distribution Width 13.3 % (11.5-14.5); White Blood Count 5.5 K/mm3 (4.5-10.0)
[2022-11-08 22:29] LABS: Anion Gap 10 mmol/L (8-16); Blood Urea Nitrogen 31 mg/dL (7-17); Calcium 9.8 mg/dL (8.4-10.2); Carbon Dioxide 26 mmol/L (22-30); Chloride 99 mmol/L (98-107); Estimated CRCL calculation 35 ml/min; Estimated Glomerular Filt Rate > 60; Glucose 133 mg/dL (65-110); Magnesium 2.2 mg/dL (1.6-2.3); Phosphorus 4.6 mg/dL (2.5-4.5); Potassium 3.9 mmol/L (3.4-5.0); Sodium 135 mmol/L (137-145)
[2022-11-08 22:41] LABS: Troponin I < 0.012 ng/mL (0.000-0.034)
[2022-11-08] MEDS: LEVALBUTEROL NEB 1.25 MG/3 ML INHALATION (22:41)
[2022-11-08] MEDS: IPRATROPIUM BR 0.02% INH SOLN 0.5 MG/2.5 ML VIAL INHALATION (22:41)
[2022-11-08] MEDS: PIPERACILLN/TAZ 3.375GM/NS50ML 3.375 GM/50 ML BAG IVPB (22:52)
[2022-11-09] VITALS (18 sets, daily range): BP systolic 65–123; BP diastolic 37–60; PULSE 52–78; RESP 12–18; TEMP 36.1–36.4; O2SAT 86–96
[2022-11-09] MEDS: PIPERACILLN/TAZ 3.375GM/NS50ML 3.375 GM/50 ML BAG IVPB (05:31)
[2022-11-09] MEDS: LEVOTHYROXINE SODIUM 100 MCG TABLET PO (05:31)
[2022-11-09 05:47] LABS: Basophils Percent Auto 0.3 % (0.2-1.2); Eosinophils Percent Auto 0.2 % (0-4.4); Hematocrit 42.1 % (37.0-47.0); Hemoglobin 13.6 g/dL (12.0-15.0); Immature Granulocyte Absolute 0.02 K/mm3 (0.00-0.031); Immature Granulocyte Percent A 0.3 % (0-0.5); Lymphocytes Absolute Auto 0.45 K/mm3 (0.9-3.2); Lymphocytes Percent Auto 6.9 % (18.3-44.2); Mean Corpuscular HGB Conc 32.3 g/dl (32-36); Mean Corpuscular Hemoglobin 33.1 pg (26-34); Mean Corpuscular Volume 102.4 fl (80-100); Mean Platelet Volume 10.7 fl (7.4-10.4); Monocytes Absolute Auto 0.6 K/mm3 (0.1-0.6); Monocytes Percent Auto 8.9 % (2.6-8.5); Neutrophils Absolute Auto 5.4 K/mm3 (1.3-6.7); Neutrophils Percent Auto 83.4 % (45.5-73.1); Platelet Count Result 137 k/mm3 (150-375); Red Blood Count 4.11 M/mm3 (4.2-5.4); Red Cell Distribution Width 13.3 % (11.5-14.5); White Blood Count 6.5 K/mm3 (4.5-10.0)
[2022-11-09] MEDS: ONDANSETRON INJ 4 MG/2 ML VIAL IV PUSH ×3 (05:51→23:13)
[2022-11-09 06:00] LABS: INR 1.1; Prothrombin Time 15.1 Seconds (11.1-14.7)
[2022-11-09 06:01] LABS: Partial Thromboplastin Time 30.1 SECONDS (22.3-36.8)
[2022-11-09 06:03] LABS: Alanine Aminotransferase 16 U/L (6-35); Albumin Level 4.3 g/dL (3.5-5.1); Alkaline Phosphatase 75 U/L (38-126); Anion Gap 9 mmol/L (8-16); Aspartate Amino Transferase 25 U/L (14-36); Bilirubin,Total 1.2 mg/dL (0.2-1.3); Blood Urea Nitrogen 34 mg/dL (7-17); Calcium 9.3 mg/dL (8.4-10.2); Carbon Dioxide 26 mmol/L (22-30); Chloride 99 mmol/L (98-107); Estimated CRCL calculation 32 ml/min; Estimated Glomerular Filt Rate 60; Glucose 115 mg/dL (65-110); Magnesium 2.1 mg/dL (1.6-2.3); Potassium 3.8 mmol/L (3.4-5.0); Sodium 134 mmol/L (137-145)
--- NOTE | 2022-11-09 09:30 | P.PNIM_ITS ---
Progress Note: A&P Assessment and Plan (1) Diastolic heart failure: Qualifiers: Heart failure chronicity: acute on chronic Qualified Code(s): I50.33 - Acute on chronic diastolic (congestive) heart failure Code(s): I50.30 - Unspecified diastolic (congestive) heart failure Status: Acute Assessment and Plan: * Presented to the ED with complaints of shortness of breath with laying flat and relieved with elevation * Echo from 2021 showed EF of 70% * appears to be an acute exacerbation of diastolic heart failure * Echo EF of 60-65%, abnormal diastolic function * H2FPEF score is 91.1% * BNP elevated at 3420 * trace edema noted * daily weights * Lasix changed to PO 20mg Daily per cardiology * need to trend renal function to avoid damage * trend urine output * Continue metoprolol, lisinopril * CTA showed pulmonary edema and moderate size left pleural effusion * Supplemental oxygen, wean to maintain saturation >90% family did provide me with the old echo which did pretty much match up with the echo done here. (2) Pleural effusion on left: Code(s): J90 - Pleural effusion, not elsewhere classified Status: Acute Assessment and Plan: * Chest xray and CTA take note of moderate left sided pleural effusion * Most likely contributing to the shortness of breath * Most likely related and collecting from the CHF exacerbation * Thoracentesis obtained, 500ml removed of clear yellow fluid * Gram stain found, few WBC, no organisms * Other lab testing pending (3) Pulmonary hypertension: Code(s): I27.20 - Pulmonary hypertension, unspecified Status: Acute Assessment and Plan: * Echo showed pulmonary hypertension at 50 * Consult cardiology for further advise * could be related to the heart failure * D.Dimer 2.90 * CTA no pulmonary embolus noted (4) Generalized weakness: Code(s): R53.1 - Weakness Status: Acute Assessment and Plan: * Describes weakness as body aches, general malaise, lack of energy * could be from a long stent covid * B12 >1000, Folic acid 16.8, and Vit D 52.1 * heart failure and pulmonary hypertension could also be contributing * Encourage PO intake * supplement changes as indicated (5) Dysuria: Code(s): R30.0 - Dysuria Status: Acute Assessment and Plan: * Complaints of not being able to urinate * trend urine output * UA was neg * Trend symptoms * Urinary catheter in place (6) Renal transplant, status post: Code(s): Z94.0 - Kidney transplant status Status: Acute Assessment and Plan: * S/P renal transplant in Feb 2013 * Trend urine output * continue home tacrolimus * Consider pure wick to get accurate urine output (7) Hypertension: Qualifiers: Hypertension type: essential hypertension Qualified Code(s): I10 - Essential (primary) hypertension Code(s): I10 - Essential (primary) hypertension Status: Acute Assessment and Plan: * Current blood pressure is 113/51 * Could be elevated related to CHF, fluid overload * Continue home lisinopril, metoprolol, amlodipine * adjust therapy as indicated (8) Hyperlipidemia: Qualifiers: Hyperlipidemia type: pure hypercholesterolemia Qualified Code(s): E78.00 - Pure hypercholesterolemia, unspecif
--- NOTE | 2022-11-09 09:30 | PM.IMPN ---
Progress Note: A&P Assessment and Plan (1) Diastolic heart failure: Qualifiers: Heart failure chronicity: acute on chronic Qualified Code(s): I50.33 - Acute on chronic diastolic (congestive) heart failure Code(s): I50.30 - Unspecified diastolic (congestive) heart failure Status: Acute Assessment and Plan: Presented to the ED with complaints of shortness of breath with laying flat and relieved with elevation Echo from 2021 showed EF of 70% appears to be an acute exacerbation of diastolic heart failure Echo EF of 60-65%, abnormal diastolic function H2FPEF score is 91.1% BNP elevated at 3420 trace edema noted daily weights Lasix changed to PO 20mg Daily per cardiology need to trend renal function to avoid damage trend urine output Continue metoprolol, lisinopril CTA showed pulmonary edema and moderate size left pleural effusion Supplemental oxygen, wean to maintain saturation >90% family did provide me with the old echo which did pretty much match up with the echo done here. (2) Pleural effusion on left: Code(s): J90 - Pleural effusion, not elsewhere classified Status: Acute Assessment and Plan: Chest xray and CTA take note of moderate left sided pleural effusion Most likely contributing to the shortness of breath Most likely related and collecting from the CHF exacerbation Thoracentesis obtained, 500ml removed of clear yellow fluid Gram stain found, few WBC, no organisms Other lab testing pending (3) Pulmonary hypertension: Code(s): I27.20 - Pulmonary hypertension, unspecified Status: Acute Assessment and Plan: Echo showed pulmonary hypertension at 50 Consult cardiology for further advise could be related to the heart failure D.Dimer 2.90 CTA no pulmonary embolus noted (4) Generalized weakness: Code(s): R53.1 - Weakness Status: Acute Assessment and Plan: Describes weakness as body aches, general malaise, lack of energy could be from a long stent covid B12 >1000, Folic acid 16.8, and Vit D 52.1 heart failure and pulmonary hypertension could also be contributing Encourage PO intake supplement changes as indicated (5) Dysuria: Code(s): R30.0 - Dysuria Status: Acute Assessment and Plan: Complaints of not being able to urinate trend urine output UA was neg Trend symptoms Urinary catheter in place (6) Renal transplant, status post: Code(s): Z94.0 - Kidney transplant status Status: Acute Assessment and Plan: S/P renal transplant in Feb 2013 Trend urine output continue home tacrolimus Consider pure wick to get accurate urine output (7) Hypertension: Qualifiers: Hypertension type: essential hypertension Qualified Code(s): I10 - Essential (primary) hypertension Code(s): I10 - Essential (primary) hypertension Status: Acute Assessment and Plan: Current blood pressure is 113/51 Could be elevated related to CHF, fluid overload Continue home lisinopril, metoprolol, amlodipine adjust therapy as indicated (8) Hyperlipidemia: Qualifiers: Hyperlipidemia type: pure hypercholesterolemia Qualified Code(s): E78.00 - Pure hypercholesterolemia, unspecified Code(s): E78.5 - Hyperlipidemia, unspecified Status: Acute Assessment and Plan: Continue simvastatin (9) Severe protein-calorie malnutrition: Code(s): E43 - Unspecified severe protein-calorie malnutrition Status: Acute Assessment and Plan: Lost about 30lbs since July she has no appetite eats possibly a meal daily will add supplement [employer] Glue Maker consult Plan Antibiotics were added at this time overnight, as there is thought of possible PNA, however, current results do not appear to point in
[2022-11-09] MEDS: CEFEPIME 1 GM/NS 50 ML 1 GM/50 ML BAG IVPB ×2 (09:37→21:46)
[2022-11-09] MEDS: FUROSEMIDE INJ 40 MG/4 ML VIAL IV PUSH (09:42)
[2022-11-09] MEDS: DOCUSATE SODIUM 100 MG CAPSULE PO ×2 (09:43→17:06)
[2022-11-09] MEDS: ENOXAPARIN 40 MG/0.4 ML SYRINGE SUB-Q (09:43)
[2022-11-09] MEDS: METOPROLOL TARTRATE 25 MG TABLET 75 MG PO ×2 (09:58→21:48)
[2022-11-09] MEDS: ASPIRIN 81 MG ENTERIC TABLET PO (09:58)
[2022-11-09] MEDS: SERTRALINE HCL 50 MG TABLET PO (09:59)
[2022-11-09] MEDS: predniSONE 5 MG TABLET PO (10:00)
[2022-11-09] MEDS: ACYCLOVIR 200 MG CAPSULE PO ×2 (10:00→17:06)
[2022-11-09] MEDS: TACROLIMUS 0.5 MG CAPSULE 2 MG PO ×2 (10:01→21:47)
--- NOTE | 2022-11-09 12:09 | PM.PNCARD ---
Progress Note: A&P Assessment and Plan (1) Diastolic heart failure: Qualifiers: Heart failure chronicity: acute on chronic Qualified Code(s): I50.33 - Acute on chronic diastolic (congestive) heart failure Code(s): I50.30 - Unspecified diastolic (congestive) heart failure Status: Acute Plan Assessment acute on chronic diastolic heart failure left side pleural effusion hx of renal transplant Plan D/C IV diuretic and start 20 mg daily Cont amlodipine and metoprolol Subjective Date/time seen: 11/09/22 12:09 Interval history: no acute events SOB improved but feels more dizzy standing today Review of Systems Review of Systems: 12 points review of system is negative except for stated above Objective Data Vital Signs Vital Signs: Vital Signs - 24 hr 11/08/22 14:00 11/08/22 16:00 11/08/22 20:45 Temperature 36.7 C 36.4 C L Pulse Rate 71 71 72 Respiratory Rate 16 18 Blood Pressure 118/61 129/57 L Pulse Oximetry 91 90 Oxygen Delivery Oxygen Flow Rate 11/08/22 20:54 11/08/22 22:45 11/08/22 22:43 Temperature Pulse Rate 71 85 Respiratory Rate 16 Blood Pressure Pulse Oximetry 98 Oxygen Delivery Nasal Cannula Oxygen Flow Rate 4 11/08/22 20:00 11/08/22 20:00 11/09/22 00:00 Temperature Pulse Rate 67 69 Respiratory Rate Blood Pressure Pulse Oximetry Oxygen Delivery Nasal Cannula Oxygen Flow Rate 2 11/09/22 04:00 11/09/22 05:33 11/09/22 08:00 Temperature 36.1 C L Pulse Rate 65 52 L 68 Respiratory Rate 18 Blood Pressure 113/51 L Pulse Oximetry 96 Oxygen Delivery Oxygen Flow Rate 11/09/22 09:58 11/09/22 10:06 Temperature Pulse Rate 73 71 Respiratory Rate 18 Blood Pressure 113/53 L Pulse Oximetry 90 Oxygen Delivery Oxygen Flow Rate Intake/Output Intake/Output: Intake & Output 11/06/22 11/07/22 11/08/22 11/09/22 23:59 23:59 23:59 23:59 Intake Total 610 570 600 Output Total 320 550 Balance 610 250 50 Meds/Results Medications: Active Medications Generic Name Dose Route Start Last Admin Trade Name Freq PRN Reason Stop Dose Admin Acetaminophen 1,000 mg 11/07/22 12:18 11/07/22 12:31 Acetaminophen 500 Mg Tablet PO 1,000 mg Q6H PRN Administration Mild Pain (1-3) or Fever Acyclovir 200 mg 11/07/22 09:00 11/09/22 10:00 Acyclovir 200 Mg Capsule PO 200 mg BID [facility] Administration Amlodipine Besylate 10 mg 11/07/22 09:00 11/09/22 10:08 Amlodipine Besylate 5 Mg Tablet PO Not Given DAILY [facility] Aspirin 81 mg 11/07/22 09:00 11/09/22 09:58 Aspirin 81 Mg Enteric Tablet PO 81 mg DAILY [facility] Administration Cyanocobalamin 1,000 mcg 11/07/22 09:00 11/09/22 09:41 Cyanocobalamin 1,000 Mcg Tablet PO 12/07/22 08:59 Not Given DAILY [facility] Docusate Sodium 100 mg 11/07/22 17:00 11/09/22 09:43 Docusate Sodium 100 Mg Capsule PO 100 mg BID [facility] Administration Enoxaparin Sodium 40 mg 11/08/22 09:00 11/09/22 09:43 Enoxaparin 40 Mg/0.4 Ml Syringe SUB-Q 40 mg DAILY [facility] Administration Vancomycin HCl 1,000 mg in 250 mls @ 250 mls/hr 11/09/22 23:00 Vancomycin 1,000 Mg/D5w 250 Ml IVPB Q24H [facility] Cefepime HCl 1 gm in 50 mls @ 100 mls/hr 11/09/22 09:00 11/09/22 10:10 Maxipime 1 Gm/Ns 50 Ml IVPB Infused Q12H [facility] Infusion Levothyroxine Sodium 100 mcg 11/08/22 06:30 11/09/22 05:31 Levothyroxine Sodium 100 Mcg Tablet PO 100 mcg DAILY@0630 [facility] Administration Lidocaine 2 patch 11/07/22 09:00 11/09/22 09:41 Lidocaine 5% Patch TOPICAL Not Given DAILY [facility] Lisinopril 10 mg 11/07/22 09:00 11/09/22 10:08 Lisinopril 10 Mg Tablet PO Not Given DAILY [facility] Metoprolol Tartrate 75 mg 11/07/22 09:00 11/09/22 09:58 Metoprolol Tartrate 25 Mg Tablet PO 75 mg Q12HR [facility] Administration Ondansetron HCl 4 mg 11/07/22 16:05 11/09/22 05:51 Ondansetron Inj 4 Mg/2 Ml Vial IV PUSH
[2022-11-09 12:50] LABS: Triglycerides 106 mg/dL (<150)
[2022-11-09 12:53] LABS: Amylase 58 U/L (30-110); Cholesterol 129 mg/dL (0-200); Lactate Dehydrogenase 242 U/L (120-246)
--- NOTE | 2022-11-09 14:05 | PC.NURSE ---
To ultrasound via bed for thoracentesis. Family at bedside.
[2022-11-09 16:05] LABS: Appearance Pleural Fluid Hazy (Clear); Color Pleural Fluid Yellow (Colorless); Lymphocytes Pleural Fluid 71 %; Neutrophils Pleural Fluid 21 % (0-25); Nucleated Cell Pleural Fluid 99 /uL (0-1000); Pleural fluid source Pleural fluid; RBC Pleural Fluid < 2000 /uL (0-0)
[2022-11-09 16:06] LABS: Macrophages Pleural Fluid 7 %; Mesothelial Cells Pleural Flui 1 %
[2022-11-09] MEDS: SODIUM CHLORIDE 0.9% IV 250 ML IV CONT (16:37)
[2022-11-09] MEDS: PRAVASTATIN SODIUM 20 MG TABLET PO (21:47)
[2022-11-10] VITALS (20 sets, daily range): BP systolic 131–150; BP diastolic 53–69; PULSE 52–79; RESP 16–24; TEMP 36.1–37.1; O2SAT 93–100; BMI 21.7
[2022-11-10] MEDS: SODIUM CHLORIDE 0.9% IV 1,000 ML 999 ML IV CONT (05:40)
[2022-11-10] MEDS: LEVOTHYROXINE SODIUM 100 MCG TABLET PO (05:41)
[2022-11-10 05:49] LABS: Estimated CRCL calculation 26 ml/min; Estimated Glomerular Filt Rate 47
--- NOTE | 2022-11-10 09:00 | PM.IMPN ---
Progress Note: A&P Assessment and Plan (1) Diastolic heart failure: Qualifiers: Heart failure chronicity: acute on chronic Qualified Code(s): I50.33 - Acute on chronic diastolic (congestive) heart failure Code(s): I50.30 - Unspecified diastolic (congestive) heart failure Status: Acute Assessment and Plan: Presented to the ED with complaints of shortness of breath with laying flat and relieved with elevation Echo from 2021 showed EF of 70% appears to be an acute exacerbation of diastolic heart failure Echo EF of 60-65%, abnormal diastolic function H2FPEF score is 91.1% BNP elevated at 3420 repeat BNP was 4090 trace edema noted daily weights Lasix changed to PO 20mg Daily per cardiology need to trend renal function to avoid damage trend urine output Continue metoprolol, lisinopril CTA showed pulmonary edema and moderate size left pleural effusion Supplemental oxygen, wean to maintain saturation >90% family did provide me with the old echo which did pretty much match up with the echo done here. (2) Pleural effusion on left: Code(s): J90 - Pleural effusion, not elsewhere classified Status: Acute Assessment and Plan: Chest xray and CTA take note of moderate left sided pleural effusion Most likely contributing to the shortness of breath Most likely related and collecting from the CHF exacerbation Thoracentesis obtained, 500ml removed of clear yellow fluid Gram stain found, few WBC, no organisms Other lab testing pending (3) Pulmonary hypertension: Code(s): I27.20 - Pulmonary hypertension, unspecified Status: Acute Assessment and Plan: Echo showed pulmonary hypertension at 50 Consult cardiology for further advise could be related to the heart failure D.Dimer 2.90 CTA no pulmonary embolus noted Pulmonology consulted (4) Generalized weakness: Code(s): R53.1 - Weakness Status: Acute Assessment and Plan: Describes weakness as body aches, general malaise, lack of energy could be from a long stent covid B12 >1000, Folic acid 16.8, and Vit D 52.1 heart failure and pulmonary hypertension could also be contributing Encourage PO intake supplement changes as indicated (5) Dysuria: Code(s): R30.0 - Dysuria Status: Acute Assessment and Plan: Complaints of not being able to urinate trend urine output UA was neg Trend symptoms Urinary catheter in place (6) Renal transplant, status post: Code(s): Z94.0 - Kidney transplant status Status: Acute Assessment and Plan: S/P renal transplant in Feb 2013 Trend urine output continue home tacrolimus Consider pure wick to get accurate urine output (7) Hypertension: Qualifiers: Hypertension type: essential hypertension Qualified Code(s): I10 - Essential (primary) hypertension Code(s): I10 - Essential (primary) hypertension Status: Acute Assessment and Plan: Current blood pressure is 113/51 Could be elevated related to CHF, fluid overload Continue home lisinopril, metoprolol, amlodipine adjust therapy as indicated (8) Hyperlipidemia: Qualifiers: Hyperlipidemia type: pure hypercholesterolemia Qualified Code(s): E78.00 - Pure hypercholesterolemia, unspecified Code(s): E78.5 - Hyperlipidemia, unspecified Status: Acute Assessment and Plan: Continue simvastatin (9) Severe protein-calorie malnutrition: Code(s): E43 - Unspecified severe protein-calorie malnutrition Status: Acute Assessment and Plan: Lost about 30lbs since July she has no appetite eats possibly a meal daily will add supplement [employer] consult (10) Respiratory failure with hypoxia: Code(s): J96.91 - Respiratory failure, unspe
--- NOTE | 2022-11-10 09:00 | P.PNIM_ITS ---
Progress Note: A&P Assessment and Plan (1) Diastolic heart failure: Qualifiers: Heart failure chronicity: acute on chronic Qualified Code(s): I50.33 - Acute on chronic diastolic (congestive) heart failure Code(s): I50.30 - Unspecified diastolic (congestive) heart failure Status: Acute Assessment and Plan: * Presented to the ED with complaints of shortness of breath with laying flat and relieved with elevation * Echo from 2021 showed EF of 70% * appears to be an acute exacerbation of diastolic heart failure * Echo EF of 60-65%, abnormal diastolic function * H2FPEF score is 91.1% * BNP elevated at 3420 repeat BNP was 4090 * trace edema noted * daily weights * Lasix changed to PO 20mg Daily per cardiology * need to trend renal function to avoid damage * trend urine output * Continue metoprolol, lisinopril * CTA showed pulmonary edema and moderate size left pleural effusion * Supplemental oxygen, wean to maintain saturation >90% family did provide me with the old echo which did pretty much match up with the echo done here. (2) Pleural effusion on left: Code(s): J90 - Pleural effusion, not elsewhere classified Status: Acute Assessment and Plan: * Chest xray and CTA take note of moderate left sided pleural effusion * Most likely contributing to the shortness of breath * Most likely related and collecting from the CHF exacerbation * Thoracentesis obtained, 500ml removed of clear yellow fluid * Gram stain found, few WBC, no organisms * Other lab testing pending (3) Pulmonary hypertension: Code(s): I27.20 - Pulmonary hypertension, unspecified Status: Acute Assessment and Plan: * Echo showed pulmonary hypertension at 50 * Consult cardiology for further advise * could be related to the heart failure * D.Dimer 2.90 * CTA no pulmonary embolus noted * Pulmonology consulted (4) Generalized weakness: Code(s): R53.1 - Weakness Status: Acute Assessment and Plan: * Describes weakness as body aches, general malaise, lack of energy * could be from a long stent covid * B12 >1000, Folic acid 16.8, and Vit D 52.1 * heart failure and pulmonary hypertension could also be contributing * Encourage PO intake * supplement changes as indicated (5) Dysuria: Code(s): R30.0 - Dysuria Status: Acute Assessment and Plan: * Complaints of not being able to urinate * trend urine output * UA was neg * Trend symptoms * Urinary catheter in place (6) Renal transplant, status post: Code(s): Z94.0 - Kidney transplant status Status: Acute Assessment and Plan: * S/P renal transplant in Feb 2013 * Trend urine output * continue home tacrolimus * Consider pure wick to get accurate urine output (7) Hypertension: Qualifiers: Hypertension type: essential hypertension Qualified Code(s): I10 - Essential (primary) hypertension Code(s): I10 - Essential (primary) hypertension Status: Acute Assessment and Plan: * Current blood pressure is 113/51 * Could be elevated related to CHF, fluid overload * Continue home lisinopril, metoprolol, amlodipine * adjust therapy as indicated (8) Hyperlipidemia: Qualifiers: Hyperlipidemia type: pure hypercholesterolemia
[2022-11-10 09:43] LABS: Basophils Percent Auto 0.2 % (0.2-1.2); Eosinophils Percent Auto 0.1 % (0-4.4); Hematocrit 44.5 % (37.0-47.0); Hemoglobin 14.1 g/dL (12.0-15.0); Immature Granulocyte Absolute 0.02 K/mm3 (0.00-0.031); Immature Granulocyte Percent A 0.2 % (0-0.5); Lymphocytes Absolute Auto 0.37 K/mm3 (0.9-3.2); Lymphocytes Percent Auto 4.5 % (18.3-44.2); Mean Corpuscular HGB Conc 31.7 g/dl (32-36); Mean Corpuscular Volume 104.2 fl (80-100); Mean Platelet Volume 11.2 fl (7.4-10.4); Monocytes Absolute Auto 0.7 K/mm3 (0.1-0.6); Monocytes Percent Auto 8.7 % (2.6-8.5); Neutrophils Absolute Auto 7.2 K/mm3 (1.3-6.7); Neutrophils Percent Auto 86.3 % (45.5-73.1); Platelet Count Result 142 k/mm3 (150-375); Red Blood Count 4.27 M/mm3 (4.2-5.4); Red Cell Distribution Width 13.4 % (11.5-14.5); White Blood Count 8.3 K/mm3 (4.5-10.0)
[2022-11-10 09:53] LABS: Alanine Aminotransferase 15 U/L (6-35); Alkaline Phosphatase 68 U/L (38-126); Anion Gap 9 mmol/L (8-16); Aspartate Amino Transferase 27 U/L (14-36); Blood Urea Nitrogen 47 mg/dL (7-17); Calcium 9.3 mg/dL (8.4-10.2); Carbon Dioxide 26 mmol/L (22-30); Chloride 100 mmol/L (98-107); Estimated CRCL calculation 26 ml/min; Estimated Glomerular Filt Rate 47; Glucose 119 mg/dL (65-110); Magnesium 2.1 mg/dL (1.6-2.3); Potassium 4.4 mmol/L (3.4-5.0); Sodium 135 mmol/L (137-145)
[2022-11-10] MEDS: predniSONE 5 MG TABLET PO (09:56)
[2022-11-10] MEDS: ASPIRIN 81 MG ENTERIC TABLET PO (09:56)
[2022-11-10] MEDS: CYANOCOBALAMIN 1,000 MCG TABLET 1000 MCG PO (09:56)
[2022-11-10] MEDS: DOCUSATE SODIUM 100 MG CAPSULE PO (09:56)
[2022-11-10] MEDS: CHOLECALCIFEROL 1,000 UNITS TABLET 2000 UNITS PO (09:56)
[2022-11-10] MEDS: TACROLIMUS 0.5 MG CAPSULE 2 MG PO (09:56)
[2022-11-10] MEDS: ACYCLOVIR 200 MG CAPSULE PO (09:56)
[2022-11-10] MEDS: METOPROLOL TARTRATE 25 MG TABLET 75 MG PO ×2 (09:57→21:55)
[2022-11-10] MEDS: SERTRALINE HCL 50 MG TABLET PO (09:57)
[2022-11-10] MEDS: ENOXAPARIN 40 MG/0.4 ML SYRINGE SUB-Q (09:58)
--- NOTE | 2022-11-10 10:36 | PM.PNCARD ---
Progress Note: A&P Assessment and Plan (1) Diastolic heart failure: Qualifiers: Heart failure chronicity: acute on chronic Qualified Code(s): I50.33 - Acute on chronic diastolic (congestive) heart failure Code(s): I50.30 - Unspecified diastolic (congestive) heart failure Status: Acute Assessment and Plan: Acute diastolic CHF. Bilateral pleural effusions status post thoracentesis. Feeling better from a respiratory perspective s/p thoracentesis. She has been shifted to p.o. furosemide at this point. Continue strict I&O Daily weights CHF counseling Subjective Date/time seen: 11/10/22 10:36 Cardiology follow up for CHF Interval history: She reports overall feeling worse today, non-specific complaint. She does state that her breathing has improved following thoracentesis yesterday. Review of Systems Review of Systems: 12 points review of system is negative except for stated above Exam Const: General: comfortable and no acute distress Other: Able to lie flat HENMT: Face/Nose/Sinus: Normal nares present and no epistaxis Mouth: Yes moist mucous membranes Eyes: Sclera: sclerae normal Pupils: Equal, round and reactive pupils present Neck: Neck: supple and JVD Carotids: no bruits Resp: Auscultation: rales bilateral and diffuse, rhonchi left lower and diminished lung sounds on the left and localized (basal) Other: No chest wall tenderness Cardio: Rate: regular rate Rhythm: regular rhythm Heart sounds: no gallops, no murmurs and no rubs GI: Auscultation: normal bowel sounds Skin: General skin exam: normal color, rashes and/or lesions noted and no erythema Other: Warm Neuro: Cranial nerves: Yes Equal, round and reactive pupils present Speech: normal speech Other: No obvious focal deficit or facial asymmetry Extrem: General: no edema Other: Normal capillary refills Intact distal pulses. Objective Data Vital Signs Vital Signs: Vital Signs - 24 hr 11/09/22 12:00 11/09/22 13:58 11/09/22 15:59 Temperature 36.4 C Pulse Rate 70 71 69 Respiratory Rate 16 Blood Pressure 112/53 L 121/53 L Pulse Oximetry 86 L 87 L Oxygen Delivery Oxygen Flow Rate 11/09/22 16:00 11/09/22 16:26 11/09/22 18:01 Temperature 36.4 C Pulse Rate 70 68 73 Respiratory Rate 16 Blood Pressure 111/57 L 118/50 L Pulse Oximetry 93 86 L Oxygen Delivery Oxygen Flow Rate 11/09/22 18:04 11/09/22 18:08 11/09/22 20:35 Temperature 36.4 C 36.4 C 36.4 C L Pulse Rate 78 78 71 Respiratory Rate 12 16 18 Blood Pressure 65/37 L 98/48 L 123/60 Pulse Oximetry 89 L 88 L 92 Oxygen Delivery Oxygen Flow Rate 11/09/22 21:48 11/09/22 20:00 11/09/22 20:00 Temperature Pulse Rate 75 68 Respiratory Rate Blood Pressure Pulse Oximetry 92 Oxygen Delivery Nasal Cannula Oxygen Flow Rate 2 11/10/22 00:00 11/10/22 04:00 11/10/22 05:15 Temperature 37.1 C Pulse Rate 66 68 70 Respiratory Rate 16 Blood Pressure 136/53 L Pulse Oximetry 96 Oxygen Delivery Oxygen Flow Rate 11/10/22 09:57 Temperature Pulse Rate 72 Respiratory Rate Blood Pressure Pulse Oximetry Oxygen Delivery Oxygen Flow Rate Intake/Output Intake/Output: Intake & Output 11/07/22 11/08/22 11/09/22 11/10/22 23:59 23:59 23:59 23:59 Intake Total 610 382 414 5602 Output Total 320 1400 100 Balance 610 250 -510 1150 Meds/Results Medications: Active Medications Generic Name Dose Route Start Last Admin Trade Name Brianq PRN Reason Stop Dose Admin Acetaminophen 1,000 mg 11/07/22 12:18 11/07/22 12:31 Acetaminophen 500 Mg Tablet PO 1,000 mg Q6H PRN Administration Mild Pain (1-3) or Fever Acyclovir 200 mg 11/07/22 09:00 11/10/22 09:56 Acyclovir 200 Mg Capsule PO 200 mg BID BLAINE Administration Amlodipine Besylate 10 mg 11/07/22 09:00 11/10/22 10:00 Amlodipine Besylate 5 Mg Tablet PO No
[2022-11-10 11:23] LABS: SARS-CoV-2 RNA PCR Positive (Negative)
--- NOTE | 2022-11-10 11:35 | ECG_ITS ---
Measurements Intervals [place] Rate: 71 P: 78 IA: 193 QRS: 7 QRSD: 98 T: 21 QT: 434 QTc: 472 Interpretive Statements SINUS RHYTHM ATRIAL COUPLET DELAYED PRECORDIAL R/S TRANSITION PEAKED T WAVES- CONSIDER HYPERKALEMIA BASELINE ARTIFACT- I, II, III, AVF ABNORMAL ECG COMPARED TO ECG 11/08/2022 22:08:21 PEAKED T WAVES NOW PRESENT Electronically Signed On 11-10-2022 12:19:30 CDT by Kyler Wright D.O.
[2022-11-10 11:42] LABS: Alveolar/Arterial O2 Gradient 617.5 mmHg; Base Excess ABG -1.7 mEq/l (+/-2.0); Fractional Inspired Oxygen 100 %; HCO3 ABG 24.5 mEq/l (22.0-26.0); Oxygen Content ABG 16.2 %vol (16.0-22.0); PCO2 ABG 47.4 mmHg (35.0-45.0); PO2 FiO2 Ratio Arterial Blood 0.48 %; Total Hemoglobin 14.3 g/dL (12.0-18.0); pH ABG 7.332 (7.350-7.450)
[2022-11-10 11:43] LABS: PO2 ABG 48.1 mmHg (80.0-100.0)
[2022-11-10 11:44] LABS: Device NON-REBREATHER MASK; Modified Allen's Test Unable to perform; Oxygen Saturation ABG 80.9 % (95.0-100.0); Oxyhemoglobin 80.9 % THb (90.0-100.0); Site Drawn RIGHT RADIAL
[2022-11-10] MEDS: FUROSEMIDE INJ 40 MG/4 ML VIAL IV PUSH (11:45)
[2022-11-10] MEDS: ONDANSETRON INJ 4 MG/2 ML VIAL IV PUSH (12:02)
[2022-11-10 12:15] LABS: Alanine Aminotransferase 14 U/L (6-35); Albumin Level 3.9 g/dL (3.5-5.1); Alkaline Phosphatase 62 U/L (38-126); Anion Gap 9 mmol/L (8-16); Aspartate Amino Transferase 29 U/L (14-36); Bilirubin,Total 1.3 mg/dL (0.2-1.3); Blood Urea Nitrogen 44 mg/dL (7-17); Calcium 9.1 mg/dL (8.4-10.2); Carbon Dioxide 23 mmol/L (22-30); Chloride 104 mmol/L (98-107); Estimated CRCL calculation 32 ml/min; Estimated Glomerular Filt Rate 60; Glucose 155 mg/dL (65-110); Potassium 4.3 mmol/L (3.4-5.0); Sodium 136 mmol/L (137-145)
[2022-11-10 12:26] LABS: NT Pro B Type Natriuretic Pept 4090 pg/mL (19.9-100); Troponin I 0.043 ng/mL (0.000-0.034)
[2022-11-10] MEDS: FAMOTIDINE 20 MG/2 ML VIAL IV PUSH (12:40)
[2022-11-10 13:00] LABS: Alanine Aminotransferase 15 U/L (6-35)
[2022-11-10 13:30] LABS: INR 1.2; Prothrombin Time 15.3 Seconds (11.1-14.7)
--- NOTE | 2022-11-10 13:44 | PC.NURSE ---
This patient, Juliet Trotteryer, was received from [[id number] ] on 11/10/22 at 1344. Patient/family oriented to unit policies and routines. Report received from DEREK Alexander @ [phone]
[2022-11-10] MEDS: REMDESIVIR 200 MG/NS 250 ML 200 MG/250 ML BAG 250 MG IVPB (13:50)
[2022-11-10 14:02] LABS: Alveolar/Arterial O2 Gradient 116.3 mmHg; Base Excess ABG -2.5 mEq/l (+/-2.0); Carboxyhemoglobin 0.2 % THb (0-2.0); Fractional Inspired Oxygen 40 %; HCO3 ABG 21.7 mEq/l (22.0-26.0); Methemoglobin ABG 0.4 %THb (0-1.5); Oxygen Content ABG 20.2 %vol (16.0-22.0); Oxygen Saturation ABG 98.5 % (95.0-100.0); Oxyhemoglobin 97.5 % THb (90.0-100.0); PCO2 ABG 36.2 mmHg (35.0-45.0); PO2 ABG 127.3 mmHg (80.0-100.0); PO2 FiO2 Ratio Arterial Blood 3.18 %; Reduced Hemoglobin 1.9 %THb (0-5.0); Total Hemoglobin 14.6 g/dL (12.0-18.0); pH ABG 7.396 (7.350-7.450)
[2022-11-10 14:03] LABS: Device NON-INVASIVE VENT; Modified Allen's Test Pass; Non-Invasive Vent Rate 12 /MIN; Site Drawn RIGHT RADIAL
[2022-11-10 14:04] LABS: Non-Invasive Expiratory Pressure 5 CMH2O; Non-Invasive Inspiratory Pressure 10 CMH2O
[2022-11-10 15:10] LABS: Troponin I 0.017 ng/mL (0.000-0.034)
--- NOTE | 2022-11-10 15:29 | PCRCNOTE ---
1440- RT called that Dr. Mejias was in pt's room wanting to switch pt from Vision to V60 unit so AVAPS could be initiated. 1450- RT switched Vision for V60, placed on pt and MD titrated AVAPS settings with pt. MD ended on AVAPS settings of VT 450/EPAP 5/RR 20/Min P 6/Max P 25/Fi02 100%. 1445- Pt was satting 100%, so MD asked for her to be switched to 15L NRB 1500- Still satting 100% on 15L NRB. MD asked for her to be switched to 10L HFNC. Pt satting 100%. 1510- MD titrated pt to 5L HFNC when pt suddenly dropped into the low 80's. Pt could not recover. 1515- AVAPS placed back on pt. Pt came up to 95%. RT titrated to 90%. Pt is currently satting 98% on 90%. Dr. Mejias wants to start pt on AIRVO 60L/90%. RT to start it MARYLOU.
--- NOTE | 2022-11-10 16:09 | PM.CNPUL ---
Assessment and Plan Assessment and plan (1) Pneumonia due to COVID-19 virus: Code(s): U07.1 - COVID-19; J12.82 - Pneumonia due to coronavirus disease 2018 Status: Acute Assessment and Plan: Patient tested positive for COVID-19 on 11/10/22 and started on remdesivir, dexamethasone on 11/10/22 and given tocilizumab on 11/10/22 as she required BiPAP support. The patient was initially treated with vancomycin 11/08/22 and Zosyn from 11/08/2022 through 11/09/2022 and placed on cefepime on 11/09. Remdesivir for 10 days unless he should recover and tolerate room air with rest, ambulation and while sleeping. - Dexamethasone 6 mg IV for 10 days - Continuous pulse oximetry - Avoid any fluid overload. - emperic Vancomycin (day 4) and cefepime (day 2). - Albuterol inhaler Q 4 for now, no wheezes. - influenza and RSV negative on 11/07/2022 - I have discontinue the tacrolimus to avoid additional immunosuppression. - I have ordered upper and lower extremity Dopplers to exclude DVT. Keep saturations are 90-94% with BiPAP. I did attempt to place her on 15 L nasal cannula with an overlying 15 L non-rebreather mask but she had desaturations into the mid 80s. We placed her back on BiPAP. We will try high-flow nasal cannula 60 L and 90% FiO2 to see if this can provide adequate oxygenation. The patient states the BiPAP mask is very uncomfortable. I asked the patient what her wishes were should she deteriorate regarding mechanical ventilation and she said she would like to speak with her about this. I spoke with the and the son-in-law who is a stock layer regarding mechanical ventilation and they will discuss this as a family. I told the that she has severe Covid pneumonia and that currently she is not doing well requiring very high levels of respiratory support and oxygent. Discussed with Albaro Richter, will follow with you (2) Respiratory failure with hypoxia: Code(s): J96.91 - Respiratory failure, unspecified with hypoxia Status: Acute Assessment and Plan: Etiology of hypoxic respiratory failure is likely COVID pneumonia. patient may also have a component of fluid overload and she has received Lasix. 11/07 1:45 a.m., room air saturation 99% 11/07 6:30 a.m. room air saturation 93% 11/08 7:30 a.m. room air saturation 93% 11/08 8:00 p.m. 2 L nasal cannula saturation 90%. 11/09 9:30 a.m. 2 L saturation 90%. 11/09 8:00 p.m. 2 L nasal cannula 92%. 11/10 5:15 a.m. 2 L nasal cannula saturation 96%. 11/10 12:20 BiPAP 10/5, 40% saturation 94%. 11/10 3:00 p.m. 15 L nasal cannula with overlying 15 L non-rebreather saturation 85% 11/10 3:20 p.m. a VATS rate of 20, tidal volume 450, EPAP 5, minimal inspiratory pressure 6, maximal inspiratory pressure 25 100% FiO2 with saturations 96% Keep saturations 90-94% with BiPAP for now and attempt Airvo high flow nasal cannula. if needed, intubation was discussed with patient, and son-in-law and they would like to discuss this prior to making further decisions. (3) Renal transplant, status post: Code(s): Z94.0 - Kidney transplant status Status: Acute Assessment and Plan: The hospitalist team has spoken with [facility] transfer center early during this hospitalization and the patient was not accepted for transfer. I have discontinue the tacrolimus to avoid further immunosuppression in the setting of an acute COVID infection. The hospitalist did reach out to local equipment sales specialist who had no further recommendations at this time. Creatinine today is 0.9. She diuresed 510 mL over last 24 hours and cumulative she is 1.5 L positive since admission. History of Present Illness History of Present Illness Consult date: 11/10/22 Chief complaint: CHF Narrative: 11/10/2022: This is a new pulmonary consult for [place] id pneumonia with respiratory failure. 87-year-old with a history of hypertension, hyperlipidemia, CKD status post renal transplant in February
[2022-11-10] MEDS: CEFEPIME 1 GM/NS 50 ML 1 GM/50 ML BAG IVPB (17:33)
--- NOTE | 2022-11-10 19:15 | PC.NURSE ---
This RN called Dr. Green to inform him of US results of: Acute deep venous thrombosis involving the peroneal veins in the right lower extremity. MD didn't answer phone. Message was left and results were passed onto night RN. Night RN stated he will pass it onto the accounts receivable specialist.
--- NOTE | 2022-11-10 20:55 | PC.NURSE ---
2044 Kristin Benjamin NP informed of venous doppler study results. Orders received.
[2022-11-10 21:54] LABS: Vancomycin Trough 14.2 ug/mL (10.0-20.0)
[2022-11-10] MEDS: PRAVASTATIN SODIUM 20 MG TABLET PO (21:55)
[2022-11-10] MEDS: ENOXAPARIN 60 MG/0.6 ML SYRINGE 54 MG SUB-Q (21:55)
[2022-11-10] MEDS: TACROLIMUS 0.5 MG CAPSULE 1 MG PO (22:21)
[2022-11-11] VITALS (31 sets, daily range): BP systolic 131–147; BP diastolic 63–82; PULSE 70–92; RESP 18–24; TEMP 36.8–37.1; O2SAT 72–100
[2022-11-11 05:06] LABS: INR 1.2; Prothrombin Time 15.6 Seconds (11.1-14.7)
[2022-11-11 05:08] LABS: Alanine Aminotransferase 14 U/L (6-35); Estimated CRCL calculation 26 ml/min; Estimated Glomerular Filt Rate 47
[2022-11-11] MEDS: LEVOTHYROXINE SODIUM 100 MCG TABLET PO (06:10)
[2022-11-11] MEDS: CEFEPIME 1 GM/NS 50 ML 1 GM/50 ML BAG IVPB ×2 (06:10→17:16)
[2022-11-11 07:15] LABS: Basophils Percent Auto 0.2 % (0.2-1.2); Hematocrit 44.4 % (37.0-47.0); Hemoglobin 14.1 g/dL (12.0-15.0); Immature Granulocyte Absolute 0.03 K/mm3 (0.00-0.031); Immature Granulocyte Percent A 0.6 % (0-0.5); Lymphocytes Absolute Auto 0.31 K/mm3 (0.9-3.2); Lymphocytes Percent Auto 6.1 % (18.3-44.2); Mean Corpuscular HGB Conc 31.8 g/dl (32-36); Monocytes Absolute Auto 0.3 K/mm3 (0.1-0.6); Monocytes Percent Auto 6.1 % (2.6-8.5); Neutrophils Absolute Auto 4.5 K/mm3 (1.3-6.7); Platelet Count Result 145 k/mm3 (150-375); Red Blood Count 4.27 M/mm3 (4.2-5.4); Red Cell Distribution Width 13.3 % (11.5-14.5); White Blood Count 5.1 K/mm3 (4.5-10.0)
[2022-11-11 07:36] LABS: Alanine Aminotransferase 14 U/L (6-35); Albumin Level 4.2 g/dL (3.5-5.1); Alkaline Phosphatase 69 U/L (38-126); Anion Gap 13 mmol/L (8-16); Aspartate Amino Transferase 24 U/L (14-36); Bilirubin,Total 0.8 mg/dL (0.2-1.3); Blood Urea Nitrogen 52 mg/dL (7-17); Calcium 9.7 mg/dL (8.4-10.2); Carbon Dioxide 21 mmol/L (22-30); Chloride 103 mmol/L (98-107); Estimated CRCL calculation 29 ml/min; Estimated Glomerular Filt Rate 53; Glucose 150 mg/dL (65-110); Potassium 4.4 mmol/L (3.4-5.0); Sodium 137 mmol/L (137-145)
--- NOTE | 2022-11-11 08:20 | PM.PNPUL ---
Progress Note: A&P Assessment and Plan (1) Pneumonia due to COVID-19 virus: Code(s): U07.1 - COVID-19; J12.82 - Pneumonia due to coronavirus disease 2019 Status: Acute Assessment and Plan: Patient tested positive for COVID-19 on 11/10/22 and started on remdesivir, dexamethasone on 11/10/22 and given tocilizumab on 11/10/22 as she required BiPAP support. The patient was initially treated with vancomycin 11/08/22 and Zosyn from 11/08/2022 through 11/09/2022 and placed on cefepime on 11/09. Remdesivir for 10 days unless he should recover and tolerate room air with rest, ambulation and while sleeping. - Dexamethasone 6 mg IV for 10 days - Continuous pulse oximetry - Avoid any fluid overload. - emperic Vancomycin (day 3) and cefepime (day 2). - Albuterol inhaler Q 4 for now, no wheezes. - influenza and RSV negative on 11/07/2022 - I have discontinue the tacrolimus to avoid additional immunosuppression. - I have ordered upper and lower extremity Dopplers to exclude DVT. Keep saturations are 90-94% with BiPAP. I did attempt to place her on 15 L nasal cannula with an overlying 15 L non-rebreather mask but she had desaturations into the mid 80s. We placed her back on BiPAP. We will try high-flow nasal cannula 60 L and 90% FiO2 to see if this can provide adequate oxygenation. The patient states the BiPAP mask is very uncomfortable. I asked the patient what her wishes were should she deteriorate regarding mechanical ventilation and she said she would like to speak with her about this. I spoke with the and the son-in-law who is a arrow point attacher regarding mechanical ventilation and they will discuss this as a family. I told the that she has severe Covid pneumonia and that currently she is not doing well requiring very high levels of respiratory support and oxygen. 11/11 Overall the patient states she feels slightly worse than yesterday. The mask is difficult to tolerate. She does have a cough with no wheezes. White blood cell count is 5.1, creatinine is 1.10. made 900 mL of urine yesterday. Per the bedside nurse the patient has been accepted for transfer to [facility] and we are awaiting a bed. Plan: continue remdesivir and dexamethasone both day 2. S/P tocilizumab on 11/10. empiric vancomycin, day 4 and cefepime, day 3. status post Zosyn from 11/08 through 11/09. Discussed with Albaro Richter, will follow with you (2) Respiratory failure with hypoxia: Code(s): J96.91 - Respiratory failure, unspecified with hypoxia Status: Acute Assessment and Plan: Etiology of hypoxic respiratory failure is likely COVID pneumonia. patient may also have a component of fluid overload and she has received Lasix. 11/10 blood gas on 100% non-rebreather was 7.33/47/48. Repeat blood gas on BiPAP 04/09 was 7.40/36/127. 11/07 1:45 a.m., room air saturation 99% 11/07 6:30 a.m. room air saturation 93% 11/08 7:30 a.m. room air saturation 93% 11/08 8:00 p.m. 2 L nasal cannula saturation 90%. 11/09 9:30 a.m. 2 L saturation 90%. 11/09 8:00 p.m. 2 L nasal cannula 92%. 11/10 5:15 a.m. 2 L nasal cannula saturation 96%. 11/10 12:20 BiPAP 04/09, 40% saturation 94%. 11/10 3:00 p.m. 15 L nasal cannula with overlying 15 L non-rebreather saturation 85% 11/10 3:20 p.m. AVAPS rate of 20, tidal volume 450, EPAP 5, minimal inspiratory pressure 6, maximal inspiratory pressure 25 100% FiO2 with saturations 96% 11/10 4:00 p.m. high-flow nasal cannula 60 L, 90% sats 100%. 11/10 8:00 p.m. high-flow nasal cannula 60 L, 75% sats 98%. 11/11 4:00 a.m. high-flow nasal cannula 35 L, 45% sats 95% 11/11 8:00 a.m. AVAPS rate of 20, tidal volume 450, EPAP 4, minimal inspiratory pressure 5, maximal inspiratory pressure 25 60% FiO2 with saturations 99% Keep saturations 90-94% with NIV for now and attempt Airvo high flow nasal cannula. if needed, intubation was discussed with patient, and son-in-law and they would like to discuss this prior to making furt
[2022-11-11] MEDS: SERTRALINE HCL 50 MG TABLET PO (09:09)
[2022-11-11] MEDS: ONDANSETRON INJ 4 MG/2 ML VIAL IV PUSH (09:09)
[2022-11-11] MEDS: METOPROLOL TARTRATE 25 MG TABLET 75 MG PO ×2 (09:09→20:56)
[2022-11-11] MEDS: TACROLIMUS 0.5 MG CAPSULE 1 MG PO ×2 (09:09→21:00)
[2022-11-11] MEDS: ENOXAPARIN 60 MG/0.6 ML SYRINGE 54 MG SUB-Q ×2 (09:09→20:56)
[2022-11-11] MEDS: ACYCLOVIR 200 MG CAPSULE PO ×2 (09:10→17:16)
[2022-11-11] MEDS: REMDESIVIR 100 MG/NS 250 ML 100 MG/250 ML BAG 250 MG IVPB (09:12)
--- NOTE | 2022-11-11 09:30 | PC.NURSE ---
0745: Pt oxygen dropping on monitor. This RN to room. Airvo in placed and working appropriately. Settings are 35L, 45%. RN increased O2 to 90% and called RT. RT to bedside to adjust flow on Airvo. Pt's oxygen still sating in the 80's, with increase of flow and FiO2 on Airvo. Airvo settings now are 60L 90%. RN and RT unable to get patient's oxygen sats above 84%. Pt placed on BiPAP with AVAPS settings, increased FiO2 to 100%. 0815: Dr. Mejias at bedside to assess patient. Dr. Mejias changed settings on BiPAP. New orders placed by . 0915: RN to room to reassess patient and administer morning medications. Pt states That machine makes me nausea. Can I keep it off? Pt not in distress at this time and O2 sats are 100%. RN placed patient back on Airvo with settings of 60L 70%. Pt's sats are 98% at this time. Will continue to monitor and titrate O2 as appropriate to maintain SpO2 of 90-94%
--- NOTE | 2022-11-11 09:46 | PC.NURSE ---
Pt oxygen sats dropping into the 70's. RN and RT to room. Pt placed on 60L 90% on Airvo. Oxygen sats remain in the 80's. Unable to get O2 sats above 82%. Pt placed back on BiPAP at this time with FiO2 increased to 80%
[2022-11-11] MEDS: FUROSEMIDE INJ 40 MG/4 ML VIAL IV PUSH (12:17)
--- NOTE | 2022-11-11 14:08 | PM.PNCARD ---
Progress Note: A&P Assessment and Plan (1) Diastolic heart failure: Qualifiers: Heart failure chronicity: acute on chronic Qualified Code(s): I50.33 - Acute on chronic diastolic (congestive) heart failure Code(s): I50.30 - Unspecified diastolic (congestive) heart failure Status: Acute Assessment and Plan: Acute diastolic CHF. Bilateral pleural effusions status post thoracentesis. Feeling better from a respiratory perspective s/p thoracentesis. She has been shifted to p.o. furosemide at this point. Continue strict I&O Daily weights Now on BiPAP, respiratory failure secondary to COVID [place]. Pulmonology is following. Diurese cautiously as able. Monitor renal function closely. Subjective Date/time seen: 11/11/22 11:45 Interval history: She has tested positive for COVID and is now in the IMU on BiPAP unable to answer any questions. Review of Systems Review of Systems: All systems reviewed & are unremarkable except as noted in HPI and below Neurologic: Denies confusion Psychiatric: Psychiatric: Denies confusion Exam Const: General: cooperative, comfortable and no acute distress; No healthy appearing or confusion Orientation/consciousness: oriented to person, patient oriented x3 and No confusion Other: Frail-appearing On BiPAP HENMT: Face/Nose/Sinus: Normal nares present and no epistaxis Mouth: Yes moist mucous membranes and Yes dry mucous membranes Eyes: Sclera: sclerae normal Pupils: Equal, round and reactive pupils present EOM: EOMs intact bilaterally Neck: Neck: supple, JVD and no JVD Carotids: no bruits Resp: Effort & Inspection: abnormal respiratory effort and other (noninvasive support with BiPAP) Auscultation: rales bilateral and diffuse, rhonchi left lower and diminished lung sounds on the left and localized (basal) Cardio: Rate: regular rate Rhythm: regular rhythm Heart sounds: no gallops, no murmurs and no rubs GI: Inspection: normal to inspection Auscultation: normal bowel sounds Skin: General skin exam: normal color, rashes and/or lesions noted and no erythema Other: Warm Neuro: General: oriented to person, patient oriented x3 and No confusion Cranial nerves: Yes Equal, round and reactive pupils present Speech: normal speech Other: No obvious focal deficit or facial asymmetry Extrem: General: no edema Right lower extremity: no edema Left lower extremity: no edema Psych: Appearance: grossly normal Mental Status: mental status grossly normal Objective Data Vital Signs Vital Signs: Vital Signs - 24 hr 11/10/22 14:15 11/10/22 15:26 11/10/22 16:00 Temperature Pulse Rate 78 71 69 Respiratory Rate 22 H Blood Pressure Pulse Oximetry 95 Oxygen Delivery BiPAP Oxygen Flow Rate Fraction of Inspired Oxygen 11/10/22 16:00 11/10/22 15:15 11/10/22 16:45 Temperature Pulse Rate Respiratory Rate Blood Pressure Pulse Oximetry 100 98 100 Oxygen Delivery High Flow Therapy with Na BiPAP High Flow Therapy with Na Oxygen Flow Rate 60 60 Fraction of Inspired Oxygen 90 90 90 11/10/22 17:57 11/10/22 17:59 11/10/22 18:00 Temperature Pulse Rate 77 Respiratory Rate Blood Pressure Pulse Oximetry 99 97 Oxygen Delivery High Flow Therapy with Na High Flow Therapy with Na Oxygen Flow Rate 60 60 Fraction of Inspired Oxygen 75 75 11/10/22 16:00 11/10/22 20:00 11/10/22 20:00 Temperature 36.8 C 36.8 C Pulse Rate 52 L 73 79 Respiratory Rate 22 H 20 Blood Pressure 135/66 140/56 L Pulse Oximetry 97 99 Oxygen Delivery Oxygen Flow Rate Fraction of Inspired Oxygen 11/10/22 20:00 11/10/22 22:00 11/10/22 21:55 Temperature Pulse Rate 79 79 Respiratory Rate Blood Pressure Pulse Oximetry 98 Oxygen Delivery High Flow Therapy with Na Oxygen Flow Rate 60 Fraction of Inspired Oxygen 75 11/10/22 23:43 11/11/22 00:00 11/11/22 00:00 [facility]
[2022-11-11] MEDS: IPRATROPIUM BR 0.02% INH SOLN 0.5 MG/2.5 ML VIAL INHALATION ×2 (14:17→19:56)
[2022-11-11] MEDS: LEVALBUTEROL NEB 1.25 MG/3 ML INHALATION ×2 (14:17→19:56)
--- NOTE | 2022-11-11 16:40 | P.PNIM_ITS ---
Progress Note: A&P Assessment and Plan (1) Diastolic heart failure: Qualifiers: Heart failure chronicity: acute on chronic Qualified Code(s): I50.33 - Acute on chronic diastolic (congestive) heart failure Code(s): I50.30 - Unspecified diastolic (congestive) heart failure Status: Acute Assessment and Plan: * Presented to the ED with complaints of shortness of breath with laying flat and relieved with elevation * Echo from 2021 showed EF of 70% * appears to be an acute exacerbation of diastolic heart failure with left pleural effusion * Echo EF of 60-65%, abnormal diastolic function * H2FPEF score is 91.1% * BNP elevated at 3420 repeat BNP was 4090 * trace edema noted * daily weights * Lasix changed to PO 20mg Daily per cardiology * need to trend renal function to avoid damage * trend urine output * Continue metoprolol, lisinopril * CTA showed pulmonary edema and moderate size left pleural effusion * Supplemental oxygen, wean to maintain saturation >90% Escalated oxygen need along with noninvasive ventilation. Suspected to be related to acute on chronic congestive heart failure versus PE versus COVID pneumonia Received tocilizumab x1 11/10/2022 Continue diuresis re-dose Lasix 40 mg IV x1 today (2) Pleural effusion on left: Code(s): J90 - Pleural effusion, not elsewhere classified Status: Acute Assessment and Plan: * Chest xray and CTA take note of moderate left sided pleural effusion * Most likely contributing to the shortness of breath * Most likely related and collecting from the CHF exacerbation * Thoracentesis obtained, 500ml removed of clear yellow fluid * Gram stain found, few WBC, no organisms * Other lab testing pending Continues to have left pleural effusion Continue IV diuresis as tolerated (3) Pulmonary hypertension: Code(s): I27.20 - Pulmonary hypertension, unspecified Status: Acute Assessment and Plan: * Echo showed pulmonary hypertension at 50 * Consult cardiology for further advise * could be related to the heart failure * D.Dimer 2.90 * CTA no pulmonary embolus noted * Pulmonology consulted (4) Generalized weakness: Code(s): R53.1 - Weakness Status: Acute Assessment and Plan: * Describes weakness as body aches, general malaise, lack of energy * could be from a long stent covid * B12 >1000, Folic acid 16.8, and Vit D 52.1 * heart failure and pulmonary hypertension could also be contributing * Encourage PO intake * supplement changes as indicated (5) Dysuria: Code(s): R30.0 - Dysuria Status: Acute Assessment and Plan: * Complaints of not being able to urinate * trend urine output * UA was neg * Trend symptoms * Urinary catheter in place (6) Renal transplant, status post: Code(s): Z94.0 - Kidney transplant status Status: Acute Assessment and Plan: * S/P renal transplant in Feb 2013 * Trend urine output * continue home tacrolimus * Consider pure wick to get accurate urine output (7) Hypertension: Qualifiers: Hypertension type: essential hypertension Qualified Code(s): I10 - Essential (primary) hypertension Code(s): I10 - Essential (primary) hypertension Status: Acute Assessment and Plan: * Current blood pressure is 113/51 * Could be elevated related to CHF,
--- NOTE | 2022-11-11 16:40 | PM.IMPN ---
Progress Note: A&P Assessment and Plan (1) Diastolic heart failure: Qualifiers: Heart failure chronicity: acute on chronic Qualified Code(s): I50.33 - Acute on chronic diastolic (congestive) heart failure Code(s): I50.30 - Unspecified diastolic (congestive) heart failure Status: Acute Assessment and Plan: Presented to the ED with complaints of shortness of breath with laying flat and relieved with elevation Echo from 2021 showed EF of 70% appears to be an acute exacerbation of diastolic heart failure with left pleural effusion Echo EF of 60-65%, abnormal diastolic function H2FPEF score is 91.1% BNP elevated at 3420 repeat BNP was 4090 trace edema noted daily weights Lasix changed to PO 20mg Daily per cardiology need to trend renal function to avoid damage trend urine output Continue metoprolol, lisinopril CTA showed pulmonary edema and moderate size left pleural effusion Supplemental oxygen, wean to maintain saturation >90% Escalated oxygen need along with noninvasive ventilation. Suspected to be related to acute on chronic congestive heart failure versus PE versus COVID pneumonia Received tocilizumab x1 11/10/2022 Continue diuresis re-dose Lasix 40 mg IV x1 today (2) Pleural effusion on left: Code(s): J90 - Pleural effusion, not elsewhere classified Status: Acute Assessment and Plan: Chest xray and CTA take note of moderate left sided pleural effusion Most likely contributing to the shortness of breath Most likely related and collecting from the CHF exacerbation Thoracentesis obtained, 500ml removed of clear yellow fluid Gram stain found, few WBC, no organisms Other lab testing pending Continues to have left pleural effusion Continue IV diuresis as tolerated (3) Pulmonary hypertension: Code(s): I27.20 - Pulmonary hypertension, unspecified Status: Acute Assessment and Plan: Echo showed pulmonary hypertension at 50 Consult cardiology for further advise could be related to the heart failure D.Dimer 2.90 CTA no pulmonary embolus noted Pulmonology consulted (4) Generalized weakness: Code(s): R53.1 - Weakness Status: Acute Assessment and Plan: Describes weakness as body aches, general malaise, lack of energy could be from a long stent covid B12 >1000, Folic acid 16.8, and Vit D 52.1 heart failure and pulmonary hypertension could also be contributing Encourage PO intake supplement changes as indicated (5) Dysuria: Code(s): R30.0 - Dysuria Status: Acute Assessment and Plan: Complaints of not being able to urinate trend urine output UA was neg Trend symptoms Urinary catheter in place (6) Renal transplant, status post: Code(s): Z94.0 - Kidney transplant status Status: Acute Assessment and Plan: S/P renal transplant in Feb 2013 Trend urine output continue home tacrolimus Consider pure wick to get accurate urine output (7) Hypertension: Qualifiers: Hypertension type: essential hypertension Qualified Code(s): I10 - Essential (primary) hypertension Code(s): I10 - Essential (primary) hypertension Status: Acute Assessment and Plan: Current blood pressure is 113/51 Could be elevated related to CHF, fluid overload Continue home lisinopril, metoprolol, amlodipine adjust therapy as indicated (8) Hyperlipidemia: Qualifiers: Hyperlipidemia type: pure hypercholesterolemia Qualified Code(s): E78.00 - Pure hypercholesterolemia, unspecified Code(s): E78.5 - Hyperlipidemia, unspecified Status: Acute Assessment and Plan: Continue simvastatin (9) Severe protein-calorie malnutrition: Code(s): E43 - Unspecified severe protein-calorie malnutrition Status: Acute Ass
[2022-11-11] MEDS: PRAVASTATIN SODIUM 20 MG TABLET PO (21:00)
[2022-11-12] VITALS (22 sets, daily range): BP systolic 121–159; BP diastolic 56–76; PULSE 71–86; RESP 16–20; TEMP 36.4–36.8; O2SAT 96–100
--- NOTE | 2022-11-12 06:32 | PC.NURSE ---
Paper documentation exists on this patient due to [facility] downtime on 11/12/22 from to [11/11/22 at 2000 to 11/12/22 at 0600] .
--- NOTE | 2022-11-12 06:40 | PCRCNOTE ---
RT did administer 0200 updraft treatment, someone else charted not given
--- NOTE | 2022-11-12 06:43 | PCRCNOTE ---
Patient refused use of the bipap last night. RT encouraged use several times along with the RN.
[2022-11-12] MEDS: LEVALBUTEROL NEB 1.25 MG/3 ML INHALATION (07:25)
[2022-11-12] MEDS: IPRATROPIUM BR 0.02% INH SOLN 0.5 MG/2.5 ML VIAL INHALATION (07:25)
[2022-11-12 07:30] LABS: Hematocrit 45.2 % (37.0-47.0); Hemoglobin 14.7 g/dL (12.0-15.0); Immature Granulocyte Absolute 0.05 K/mm3 (0.00-0.031); Immature Granulocyte Percent A 0.6 % (0-0.5); Lymphocytes Absolute Auto 0.32 K/mm3 (0.9-3.2); Lymphocytes Percent Auto 3.7 % (18.3-44.2); Mean Corpuscular HGB Conc 32.5 g/dl (32-36); Mean Corpuscular Volume 101.6 fl (80-100); Monocytes Absolute Auto 0.7 K/mm3 (0.1-0.6); Monocytes Percent Auto 7.6 % (2.6-8.5); Neutrophils Absolute Auto 7.5 K/mm3 (1.3-6.7); Neutrophils Percent Auto 88.1 % (45.5-73.1); Platelet Count Result 162 k/mm3 (150-375); Red Blood Count 4.45 M/mm3 (4.2-5.4); Red Cell Distribution Width 13.3 % (11.5-14.5); White Blood Count 8.6 K/mm3 (4.5-10.0)
[2022-11-12 07:46] LABS: Alanine Aminotransferase 14 U/L (6-35); Estimated CRCL calculation 26 ml/min; Estimated Glomerular Filt Rate 47
[2022-11-12 07:54] LABS: Alanine Aminotransferase 14 U/L (6-35); Albumin Level 4.1 g/dL (3.5-5.1); Alkaline Phosphatase 68 U/L (38-126); Anion Gap 11 mmol/L (8-16); Aspartate Amino Transferase 25 U/L (14-36); Bilirubin,Total 0.9 mg/dL (0.2-1.3); Blood Urea Nitrogen 71 mg/dL (7-17); Calcium 9.9 mg/dL (8.4-10.2); Carbon Dioxide 23 mmol/L (22-30); Chloride 103 mmol/L (98-107); Estimated CRCL calculation 22 ml/min; Estimated Glomerular Filt Rate 39; Glucose 138 mg/dL (65-110); Magnesium 2.3 mg/dL (1.6-2.3); Potassium 3.9 mmol/L (3.4-5.0); Sodium 137 mmol/L (137-145)
[2022-11-12] MEDS: ASPIRIN 81 MG ENTERIC TABLET PO (08:35)
[2022-11-12] MEDS: ENOXAPARIN 60 MG/0.6 ML SYRINGE 54 MG SUB-Q ×2 (08:35→20:50)
[2022-11-12] MEDS: DOCUSATE SODIUM 100 MG CAPSULE PO (08:36)
[2022-11-12] MEDS: SERTRALINE HCL 50 MG TABLET PO (08:36)
[2022-11-12 08:37] LABS: INR 1.2; Prothrombin Time 16.1 Seconds (11.1-14.7)
[2022-11-12] MEDS: CYANOCOBALAMIN 1,000 MCG TABLET 1000 MCG PO (08:37)
[2022-11-12] MEDS: CHOLECALCIFEROL 1,000 UNITS TABLET 2000 UNITS PO (08:37)
[2022-11-12] MEDS: METOPROLOL TARTRATE 25 MG TABLET 75 MG PO ×2 (08:37→20:49)
[2022-11-12] MEDS: ACYCLOVIR 200 MG CAPSULE PO ×2 (08:39→17:43)
--- NOTE | 2022-11-12 08:59 | PM.PNPUL ---
Progress Note: A&P Assessment and Plan (1) Pneumonia due to COVID-19 virus: Code(s): U07.1 - COVID-19; J12.82 - Pneumonia due to coronavirus disease 2019 Status: Acute Assessment and Plan: Patient tested positive for COVID-19 on 11/10/22 and started on remdesivir, dexamethasone on 11/10/22 and given tocilizumab on 11/10/22 as she required BiPAP support. The patient was initially treated with vancomycin 11/08/22 and Zosyn from 11/08/2022 through 11/09/2022 and placed on cefepime on 11/09. Remdesivir for 10 days unless he should recover and tolerate room air with rest, ambulation and while sleeping. - Dexamethasone 6 mg IV for 10 days - Continuous pulse oximetry - Avoid any fluid overload. - emperic Vancomycin (day 3) and cefepime (day 2). - Albuterol inhaler Q 4 for now, no wheezes. - influenza and RSV negative on 11/07/2022 - I have discontinue the tacrolimus to avoid additional immunosuppression. - I have ordered upper and lower extremity Dopplers to exclude DVT. Keep saturations are 90-94% with BiPAP. I did attempt to place her on 15 L nasal cannula with an overlying 15 L non-rebreather mask but she had desaturations into the mid 80s. We placed her back on BiPAP. We will try high-flow nasal cannula 60 L and 90% FiO2 to see if this can provide adequate oxygenation. The patient states the BiPAP mask is very uncomfortable. I asked the patient what her wishes were should she deteriorate regarding mechanical ventilation and she said she would like to speak with her about this. I spoke with the and the son-in-law who is a pararescue craftsman regarding mechanical ventilation and they will discuss this as a family. I told the that she has severe Covid pneumonia and that currently she is not doing well requiring very high levels of respiratory support and oxygen. 11/11 Overall the patient states she feels slightly worse than yesterday. The mask is difficult to tolerate. She does have a cough with no wheezes. White blood cell count is 5.1, creatinine is 1.10. made 900 mL of urine yesterday. tacrolimus restarted per hospitalist team. Per the bedside nurse the patient has been accepted for transfer to [facility] and we are awaiting a bed. Plan: continue remdesivir and dexamethasone both day 2. S/P tocilizumab on 11/10. empiric vancomycin, day 4 and cefepime, day 3. status post Zosyn from 11/08 through 11/09. 11/12 Patient states that her breathing is normal. She still has a cough with phlegm production. She still has fatigue and says that she just feels horrible. Plan: continue remdesivir and dexamethasone both day 3. S/P tocilizumab on 11/10. status post Zosyn from 11/08 through 11/09. empiric vancomycin, day 5 and cefepime, day 4. I will discontinue vancomycin with worsening renal function. I have discontinued tacrolimus as the patient has an acute Covid infection and possibly bacterial infection. Discussed with Dr. Scott, will follow with you (2) Respiratory failure with hypoxia: Code(s): J96.91 - Respiratory failure, unspecified with hypoxia Status: Acute Assessment and Plan: Etiology of hypoxic respiratory failure is likely COVID pneumonia. patient may also have a component of fluid overload and she has received Lasix. 11/10 blood gas on 100% non-rebreather was 7.33/47/48. Repeat blood gas on BiPAP 04/09 was 7.40/36/127. 11/07 1:45 a.m., room air saturation 99% 11/07 6:30 a.m. room air saturation 93% 11/08 7:30 a.m. room air saturation 93% 11/08 8:00 p.m. 2 L nasal cannula saturation 90%. 11/09 9:30 a.m. 2 L saturation 90%. 11/09 8:00 p.m. 2 L nasal cannula 92%. 11/10 5:15 a.m. 2 L nasal cannula saturation 96%. 11/10 12:20 BiPAP 04/09, 40% saturation 94%. 11/10 3:00 p.m. 15 L nasal cannula with overlying 15 L non-rebreather saturation 85% 11/10 3:20 p.m. AVAPS rate of 20, tidal volume 450, EPAP 5, minimal inspiratory pressure 6, maximal inspiratory pressure 25 100% FiO2 with saturations 96%
[2022-11-12 09:15] LABS: Burr Cells 2+ (NORMAL); Platelet Estimate Adequate (Adequate); Schistocytes None Seen (NORMAL)
[2022-11-12] MEDS: ONDANSETRON INJ 4 MG/2 ML VIAL IV PUSH (09:30)
[2022-11-12] MEDS: REMDESIVIR 100 MG/NS 250 ML 100 MG/250 ML BAG 250 MG IVPB (10:29)
--- NOTE | 2022-11-12 10:59 | PC.NURSE ---
Dr Mejias stopped the anti rejection medication while taking steroids due to immunosuppressant effects and Dr Scott made aware of this as well, family is demanding that pt stay on the drugs
[2022-11-12 11:33] LABS: Vancomycin Trough 23.6 ug/mL (10.0-20.0)
--- NOTE | 2022-11-12 12:57 | PM.IMPN ---
Progress Note: A&P Assessment and Plan (1) Diastolic heart failure: Qualifiers: Heart failure chronicity: acute on chronic Qualified Code(s): I50.33 - Acute on chronic diastolic (congestive) heart failure Code(s): I50.30 - Unspecified diastolic (congestive) heart failure Status: Acute Assessment and Plan: Appreciate cardiology and pulmonary input Received tocilizumab x1 11/10/2022 Continue diuresis (2) Pneumonia due to COVID-19 virus: Code(s): U07.1 - COVID-19; J12.82 - Pneumonia due to coronavirus disease 2018 Status: Acute Assessment and Plan: Covid retested and was positive Chest xray indicated pulmonary opacities Bipap added Remdesivir started Prednisone changed to dexamethasone Continue with supplemental oxygen Pulmonology consulted (3) Pleural effusion on left: Code(s): J90 - Pleural effusion, not elsewhere classified Status: Acute Assessment and Plan: Chest xray and CTA take note of moderate left sided pleural effusion Continues to have left pleural effusion Continue IV diuresis as tolerated (4) Pulmonary hypertension: Code(s): I27.20 - Pulmonary hypertension, unspecified Status: Acute Assessment and Plan: Echo showed pulmonary hypertension at 50 Consult cardiology for further advise could be related to the heart failure D.Dimer 2.90 CTA no pulmonary embolus noted Pulmonology consulted (5) Renal transplant, status post: Code(s): Z94.0 - Kidney transplant status Status: Acute Assessment and Plan: S/P renal transplant in Feb 2013 Trend urine output Hold tacrolimus to avoid further immune suppression since patient is already on steroids Consider pure wick to get accurate urine output (6) Hyperlipidemia: Qualifiers: Hyperlipidemia type: pure hypercholesterolemia Qualified Code(s): E78.00 - Pure hypercholesterolemia, unspecified Code(s): E78.5 - Hyperlipidemia, unspecified Status: Acute Assessment and Plan: Continue simvastatin Plan Patient accepted at [place] awaiting bed placement. Continue pulmonary treatment delineated above. Subjective Date/time seen: 11/12/22 12:57 Interval history: No changes overnight Review of Systems Review of Systems: All systems reviewed & are unremarkable except as noted in HPI and below Exam Narrative: General: well-nourished, frail appearing 87-year-old female, Lying in bed, not in acute distress Neuro: awake, alert and oriented x4, speech clear, no focal neuro deficits noted HEENMT: normocephalic, atraumatic, EOMI, sclerae anicteric, moist oral mucosa Respiratory: Diminished breath sounds bilaterally without wheezes, rhonchi, and crackles, nonlabored breathing Cardio: regular rate, regular rhythm with S1-S2 Abdomen: nondistended, normoactive bowel sounds, soft, nontender to palpation Extremities: 1+ pitting edema, erythema, or tenderness to palpation, DP pulses 2+ bilaterally Skin: no rashes or lesions, warm and dry Psych: appropriate mood and affect, judgment and insight intact Objective Data Vital Signs Vital Signs: Vital Signs - 24 hr 11/11/22 14:00 11/11/22 14:20 11/11/22 14:00 Temperature Pulse Rate 78 74 Respiratory Rate 18 18 Blood Pressure Pulse Oximetry 98 Oxygen Delivery High Flow Therapy with Na Oxygen Flow Rate 50 Fraction of Inspired Oxygen 55 11/11/22 14:00 11/11/22 13:00 11/11/22 14:53 Temperature Pulse Rate 77 Respiratory Rate Blood Pressure Pulse Oximetry 98 98 Oxygen Delivery High Flow Therapy with Na High Flow Therapy with Na Oxygen Flow Rate 55 50 Fraction of Inspired Oxygen 55 45 11/11/22 14:53 11/11/22 17:12 11/11/22 16:00 Temperature Pulse Rate Respiratory Rate Blood Pressure Pulse Oximetry 98 97 98 Oxygen Delivery High Flow Therapy with Na High
--- NOTE | 2022-11-12 14:38 | PM.PNCARD ---
Progress Note: A&P Assessment and Plan (1) Diastolic heart failure: Qualifiers: Heart failure chronicity: acute on chronic Qualified Code(s): I50.33 - Acute on chronic diastolic (congestive) heart failure Code(s): I50.30 - Unspecified diastolic (congestive) heart failure Status: Acute Assessment and Plan: Acute diastolic CHF. Bilateral pleural effusions status post thoracentesis. Diuretics on hold due to worsening renal function (though I wonder if some of the azotemia may be due to the steroids? ). Overall patient is improving, no longer short of breath and with less oxygen needs. Chest x-ray improved. --resume diuretics when renal function improves --wonder if patient may be a little intravascular depleted, since she has poor p.o. intake? Thus will not start an SGLT-2 inhibitor for her diastolic CHF at this point. (2) Hypertension: Qualifiers: Hypertension type: essential hypertension Qualified Code(s): I10 - Essential (primary) hypertension Code(s): I10 - Essential (primary) hypertension Status: Acute Assessment and Plan: Continue metoprolol and amlodipine. (3) Pneumonia due to COVID-19 virus: Code(s): U07.1 - COVID-19; J12.82 - Pneumonia due to coronavirus disease 2018 Status: Acute Assessment and Plan: On usual treatment. waiting for bed at [facility]. (4) Renal transplant, status post: Code(s): Z94.0 - Kidney transplant status Status: Acute Assessment and Plan: Waiting for a bed at [facility]. Subjective Date/time seen: 11/12/22 14:38 Interval history: Follow-up for diastolic CHF. Admitted with shortness of breath, positive for COVID pneumonia, on usual tx. Initially on BiPAP, now high-flow nasal oxygen. ProBNP 4100 on admission. H/O renal transplant. 11/07/2022 echo: EF 60-65%, diastolic dysfunction. RVSP 50 mmHg. 11/09/2022: Thoracentesis Date of service 11/12/2022: Patient complains of weakness but no shortness of breath. Patient feels she got sick because of the stress of having her daughter of cancer in September. Diuretics remain on hold; BUN up to 71 and creatinine up to 1.3. Blood pressure stable, 120-140 systolic. On 3 L high-flow nasal cannula. Chest x-ray yesterday showed bilateral infiltrates and mild to moderate effusions, but on my personal review it appeared improved.. Waiting for a bed at [facility]. Review of Systems Review of Systems: Patient's main complaint is that she is very weak, and not able to get out of bed. Poor appetite. No pain, no shortness of breath, not much of a cough, no chest pain. Exam Const: General: cooperative and comfortable; No healthy appearing or confusion Orientation/consciousness: oriented to person, patient oriented x3 and No confusion Other: Frail-appearing HENMT: Mouth: Yes dry mucous membranes Eyes: EOM: EOMs intact bilaterally Neck: Neck: no JVD Resp: Effort & Inspection: normal respiratory effort Auscultation: diminished lung sounds Cardio: Rate: regular rate Rhythm: regular rhythm Heart sounds: no murmurs GI: Inspection: normal to inspection GI Palp: No abdominal tenderness Skin: General skin exam: normal color Neuro: General: oriented to person, patient oriented x3 and No confusion Extrem: Right lower extremity: no edema Left lower extremity: no edema Psych: Appearance: grossly normal Mental Status: mental status grossly normal Objective Data Vital Signs Vital Signs: Vital Signs - 24 hr 11/11/22 14:53 11/11/22 14:53 11/11/22 17:12 Temperature Pulse Rate Respiratory Rate Blood Pressure Pulse Oximetry 98 98 97 Oxygen Delivery High Flow Therapy with Na High Flow Therapy with Na High Flow Nasal Cannula Oxygen Flow Rate 50 50 45 Fraction of Inspired Oxygen 45 45 40 11/11/22 16:00 11/11/22 17:15 11/11/22 16:00 Temperature 98.4 F Pulse Rate 78 Respir
[2022-11-12] MEDS: CEFEPIME 1 GM/NS 50 ML 1 GM/50 ML BAG IVPB (17:42)
[2022-11-12] MEDS: PRAVASTATIN SODIUM 20 MG TABLET PO (20:50)
[2022-11-13] VITALS (16 sets, daily range): BP systolic 128–173; BP diastolic 59–79; PULSE 52–85; RESP 16–20; TEMP 36.4–36.8; O2SAT 91–100
[2022-11-13 05:42] LABS: Alanine Aminotransferase 14 U/L (6-35); Estimated CRCL calculation 26 ml/min; Estimated Glomerular Filt Rate 47
[2022-11-13 05:46] LABS: INR 1.3; Prothrombin Time 16.7 Seconds (11.1-14.7)
[2022-11-13] MEDS: LEVOTHYROXINE SODIUM 100 MCG TABLET PO (05:47)
--- NOTE | 2022-11-13 06:03 | PC.NURSE ---
patient lost last vascular access. lt arm cannot be used, rt arm is black and blue . called alec gilliland who is covering for vascular access, dr palmer is aware and it is ok to wait on antibiotics until vascular access can be obtained.
[2022-11-13] MEDS: ACYCLOVIR 200 MG CAPSULE PO ×2 (08:55→17:37)
[2022-11-13] MEDS: ASPIRIN 81 MG ENTERIC TABLET PO (08:55)
[2022-11-13] MEDS: DOCUSATE SODIUM 100 MG CAPSULE PO ×2 (08:56→17:37)
[2022-11-13] MEDS: ENOXAPARIN 60 MG/0.6 ML SYRINGE 54 MG SUB-Q ×2 (08:56→20:41)
[2022-11-13] MEDS: CYANOCOBALAMIN 1,000 MCG TABLET 1000 MCG PO (08:56)
[2022-11-13] MEDS: METOPROLOL TARTRATE 25 MG TABLET 75 MG PO ×2 (08:56→20:42)
[2022-11-13] MEDS: SERTRALINE HCL 50 MG TABLET PO (08:56)
[2022-11-13] MEDS: CHOLECALCIFEROL 1,000 UNITS TABLET 2000 UNITS PO (08:56)
--- NOTE | 2022-11-13 11:29 | PM.IMPN ---
Progress Note: A&P Assessment and Plan (1) Diastolic heart failure: Qualifiers: Heart failure chronicity: acute on chronic Qualified Code(s): I50.33 - Acute on chronic diastolic (congestive) heart failure Code(s): I50.30 - Unspecified diastolic (congestive) heart failure Status: Acute Assessment and Plan: Appreciate cardiology and pulmonary input Received tocilizumab x1 11/10/2022 Continue diuresis (2) Pneumonia due to COVID-19 virus: Code(s): U07.1 - COVID-19; J12.82 - Pneumonia due to coronavirus disease 2018 Status: Acute Assessment and Plan: Covid retested and was positive Chest xray indicated pulmonary opacities Bipap added Remdesivir started Prednisone changed to dexamethasone Continue with supplemental oxygen Pulmonology consulted Oxygen recommend coming down (3) Pleural effusion on left: Code(s): J90 - Pleural effusion, not elsewhere classified Status: Acute Assessment and Plan: Chest xray and CTA take note of moderate left sided pleural effusion Continues to have left pleural effusion Continue IV diuresis as tolerated (4) Pulmonary hypertension: Code(s): I27.20 - Pulmonary hypertension, unspecified Status: Acute Assessment and Plan: Echo showed pulmonary hypertension at 50 Consult cardiology for further advise could be related to the heart failure D.Dimer 2.90 CTA no pulmonary embolus noted Pulmonology consulted (5) Renal transplant, status post: Code(s): Z94.0 - Kidney transplant status Status: Acute Assessment and Plan: S/P renal transplant in Feb 2013 Hold tacrolimus to avoid further immune suppression since patient is already on steroids (6) Hyperlipidemia: Qualifiers: Hyperlipidemia type: pure hypercholesterolemia Qualified Code(s): E78.00 - Pure hypercholesterolemia, unspecified Code(s): E78.5 - Hyperlipidemia, unspecified Status: Acute Assessment and Plan: Continue simvastatin Plan Transfer to [place] canceled since patient does not meet criteria to be admitted to the ICU anymore over there and they have a waiting list of 5 days for her to be admitted to medical bed Subjective Date/time seen: 11/13/22 11:29 Interval history: Patient states she is short of breath. Having difficulty breathing. Even though she is only on 2 L oxygen. Review of Systems Review of Systems: All systems reviewed & are unremarkable except as noted in HPI and below Exam Narrative: General: frail appearing 87-year-old female, Lying in bed, Neuro: awake, alert and oriented x4, speech clear, no focal neuro deficits noted HEENMT: normocephalic, atraumatic, EOMI, sclerae anicteric, moist oral mucosa Respiratory: Diminished breath sounds bilaterally without wheezes, rhonchi, and crackles, nonlabored breathing Cardio: regular rate, regular rhythm with S1-S2 Abdomen: nondistended, normoactive bowel sounds, soft, nontender to palpation Extremities: 1+ pitting edema, erythema, or tenderness to palpation, DP pulses 2+ bilaterally Skin: no rashes or lesions, warm and dry Psych: appropriate mood and affect, judgment and insight intact Objective Data Vital Signs Vital Signs: Vital Signs - 24 hr 11/12/22 12:00 11/12/22 12:38 11/12/22 12:00 Temperature 98.2 F Pulse Rate 75 Respiratory Rate 20 Blood Pressure 144/65 H Pulse Oximetry 96 100 Oxygen Delivery Nasal Cannula High Flow Nasal Cannula Oxygen Flow Rate 4 4 Fraction of Inspired Oxygen 30 11/12/22 12:00 11/12/22 13:30 11/12/22 14:00 Temperature Pulse Rate 81 72 72 Respiratory Rate 16 Blood Pressure Pulse Oximetry 97 Oxygen Delivery High Flow Nasal Cannula Oxygen Flow Rate 3 Fraction of Inspired Oxygen 11/12/22 16:00 11/12/22 16:00 11/12/22 18:00 Temperature 97.8 F Pulse Rate 76 85 Respiratory Rate 18 Blood Pressure 159/69 H Pu
--- NOTE | 2022-11-13 12:09 | PM.PNPUL ---
Progress Note: A&P Assessment and Plan (1) Pneumonia due to COVID-19 virus: Code(s): U07.1 - COVID-19; J12.82 - Pneumonia due to coronavirus disease 2019 Status: Acute Assessment and Plan: Patient tested positive for COVID-19 on 11/10/22 and started on remdesivir, dexamethasone on 11/10/22 and given tocilizumab on 11/10/22 as she required BiPAP support. The patient was initially treated with vancomycin 11/08/22 and Zosyn from 11/08/2022 through 11/09/2022 and placed on cefepime on 11/09. Remdesivir for 10 days unless he should recover and tolerate room air with rest, ambulation and while sleeping. - Dexamethasone 6 mg IV for 10 days - Continuous pulse oximetry - Avoid any fluid overload. - emperic Vancomycin (day 3) and cefepime (day 2). - Albuterol inhaler Q 4 for now, no wheezes. - influenza and RSV negative on 11/07/2022 - I have discontinue the tacrolimus to avoid additional immunosuppression. - I have ordered upper and lower extremity Dopplers to exclude DVT. Keep saturations are 90-94% with BiPAP. I did attempt to place her on 15 L nasal cannula with an overlying 15 L non-rebreather mask but she had desaturations into the mid 80s. We placed her back on BiPAP. We will try high-flow nasal cannula 60 L and 90% FiO2 to see if this can provide adequate oxygenation. The patient states the BiPAP mask is very uncomfortable. I asked the patient what her wishes were should she deteriorate regarding mechanical ventilation and she said she would like to speak with her about this. I spoke with the and the son-in-law who is a florist regarding mechanical ventilation and they will discuss this as a family. I told the that she has severe Covid pneumonia and that currently she is not doing well requiring very high levels of respiratory support and oxygen. 11/11 Overall the patient states she feels slightly worse than yesterday. The mask is difficult to tolerate. She does have a cough with no wheezes. White blood cell count is 5.1, creatinine is 1.10. made 900 mL of urine yesterday. tacrolimus restarted per hospitalist team. Per the bedside nurse the patient has been accepted for transfer to [facility] and we are awaiting a bed. Plan: continue remdesivir and dexamethasone both day 2. S/P tocilizumab on 11/10. empiric vancomycin, day 4 and cefepime, day 3. status post Zosyn from 11/08 through 11/09. 11/12 Patient states that her breathing is normal. She still has a cough with phlegm production. She still has fatigue and says that she just feels horrible. Plan: continue remdesivir and dexamethasone both day 3. S/P tocilizumab on 11/10. status post Zosyn from 11/08 through 11/09. empiric vancomycin, day 5 and cefepime, day 4. I will discontinue vancomycin with worsening renal function. I have discontinued tacrolimus as the patient has an acute Covid infection and possibly bacterial infection. 11/13 patient states she is having minimal shortness of breath but that she feels tired, aching and overall very very sick. She still has a cough with minimal phlegm production. Patient had a chest x-ray today with cardiomegaly, mild interstitial infiltrates and small pleural effusions left greater than right. Plan: continue remdesivir and dexamethasone both day 4. S/P tocilizumab on 11/10. I would continue Remdesivir and dexamethasone for 10 days or until the patient is on room air at rest, sitting and at night. status post Zosyn from 11/08 through 11/09. empiric vancomycin, day 5 and cefepime, day 4. I will discontinue vancomycin with worsening renal function. I have discontinued tacrolimus as the patient has an acute Covid infection and possibly bacterial infection. Today is day 5 of cefepime and day 6 total of antibiotics. I would discontinue the cefepime after her dose on 11/14/2022. patient should have a chest x-ray prior to discharge to serve as a new baseline. Patient should have a home O2 assessm
[2022-11-13] MEDS: REMDESIVIR 100 MG/NS 250 ML 100 MG/250 ML BAG 250 MG IVPB (13:02)
[2022-11-13] MEDS: guaiFENesin 12 HR 600 MG TABCR 1200 MG PO ×2 (13:02→20:41)
[2022-11-13] MEDS: ONDANSETRON INJ 4 MG/2 ML VIAL IV PUSH (13:03)
--- NOTE | 2022-11-13 14:07 | PCPTNOTE ---
Patient refused treatment this session. Attempted to see patient however patient declined PT stating she did not feel well. PT will continue to follow per plan of care.
[2022-11-13] MEDS: CEFEPIME 1 GM/NS 50 ML 1 GM/50 ML BAG IVPB (15:35)
--- NOTE | 2022-11-13 16:29 | PM.PNCARD ---
Progress Note: A&P Assessment and Plan (1) Diastolic heart failure: Qualifiers: Heart failure chronicity: acute on chronic Qualified Code(s): I50.33 - Acute on chronic diastolic (congestive) heart failure Code(s): I50.30 - Unspecified diastolic (congestive) heart failure Status: Acute Assessment and Plan: Acute diastolic CHF. Bilateral pleural effusions status post thoracentesis. Improving, now on room air. Diuretics on hold due to worsening renal function. Resume when renal function improves (worse today BUN/Cr 71/1.10) Can add SGLT-2 inhibitor for her diastolic CHF when renal function improves Will follow along on an as needed basis, please call with questions. Subjective Date/time seen: 11/13/22 16:29 Cardiology follow up for CHF Interval history: States she felt awful this morning but is doing better this afternoon. Unable to describe specifically how she was feeling earlier. She does note improved shortness of breath. Now on room air. No swelling. No chest pain. Review of Systems Neurologic: Denies confusion Psychiatric: Psychiatric: Denies confusion Exam Const: General: cooperative, comfortable and no acute distress; No healthy appearing or confusion Orientation/consciousness: oriented to person, patient oriented x3 and No confusion Other: Frail-appearing HENMT: Face/Nose/Sinus: Normal nares present and no epistaxis Mouth: Yes moist mucous membranes and Yes dry mucous membranes Eyes: Sclera: sclerae normal Pupils: Equal, round and reactive pupils present EOM: EOMs intact bilaterally Neck: Neck: supple, JVD and no JVD Carotids: no bruits Resp: Effort & Inspection: normal respiratory effort Auscultation: rales bilateral and diffuse, rhonchi left lower and diminished lung sounds on the left and localized (basal) Other: No chest wall tenderness Cardio: Rate: regular rate Rhythm: regular rhythm Heart sounds: no gallops, no murmurs and no rubs GI: Inspection: normal to inspection Auscultation: normal bowel sounds Skin: General skin exam: normal color, rashes and/or lesions noted and no erythema Other: Warm Neuro: General: oriented to person, patient oriented x3 and No confusion Cranial nerves: Yes Equal, round and reactive pupils present Speech: normal speech Other: No obvious focal deficit or facial asymmetry Extrem: General: no edema Right lower extremity: no edema Left lower extremity: no edema Other: Normal capillary refills Intact distal pulses. Psych: Appearance: grossly normal Mental Status: mental status grossly normal Objective Data Vital Signs Vital Signs: Vital Signs - 24 hr 11/12/22 18:00 11/12/22 19:56 11/12/22 20:49 Temperature 36.8 C Pulse Rate 85 86 80 Respiratory Rate 18 Blood Pressure 134/66 Pulse Oximetry 99 Oxygen Delivery Oxygen Flow Rate Fraction of Inspired Oxygen 11/12/22 20:00 11/12/22 20:00 11/12/22 22:00 Temperature Pulse Rate 80 80 73 Respiratory Rate 18 Blood Pressure Pulse Oximetry 99 Oxygen Delivery High Flow Nasal Cannula Oxygen Flow Rate 3 Fraction of Inspired Oxygen 30 11/12/22 23:47 11/13/22 00:00 11/13/22 00:00 Temperature 36.4 C Pulse Rate 76 75 75 Respiratory Rate 18 18 Blood Pressure 131/62 Pulse Oximetry 100 100 Oxygen Delivery High Flow Nasal Cannula Oxygen Flow Rate 3 Fraction of Inspired Oxygen 30 11/13/22 02:00 11/13/22 03:59 11/13/22 04:00 Temperature 36.8 C Pulse Rate 52 L 83 83 Respiratory Rate 18 18 Blood Pressure 128/65 Pulse Oximetry 97 97 Oxygen Delivery High Flow Nasal Cannula Oxygen Flow Rate 3 Fraction of Inspired Oxygen 30 11/13/22 04:00 11/13/22 06:00 11/13/22 08:56 Temperature Pulse Rate 80 80 80 Respiratory Rate Blood Pressure Pulse Oximetry Oxygen Delivery Oxygen Flow Rate Fraction of Inspired Oxygen 11/13/22 08:00 11/13/22 08:0
[2022-11-13 16:58] LABS: Tacrolimus Prograf 34.3 mcg/L
[2022-11-13 20:00] LABS: Glucose Pleural Fluid 129 mg/dL; LDH Pleural Fluid 67 U/L; Total Protein Pleural Fluid <3.0 g/dL
--- NOTE | 2022-11-13 20:20 | PC.NURSE ---
Family arrived to IMU nurses station this evening requesting improved communication between hospital providers and family. Patient son-in-law, Tima Chavez [phone], is patient's primary contact. Family requests daily phone calls from provider/hospitalist for improved communication regarding patient progress, plan, and medication administration - specifically regarding antirejection medication for renal transplant. Family expressed frustration at not receiving updates since Thursday or Thursday, and the decision by Dr. Mejias to discontinue Tacrolimus without advising the family. Family also requests removing patient from isolation as soon as possible, for improved patient mental well-being.
[2022-11-13] MEDS: TACROLIMUS 0.5 MG CAPSULE 1 MG PO (20:41)
[2022-11-13] MEDS: PRAVASTATIN SODIUM 20 MG TABLET PO (20:41)
[2022-11-13] MEDS: SALINE LOCK FLUSH 10 ML IV PUSH (23:10)
[2022-11-14] VITALS (19 sets, daily range): BP systolic 120–201; BP diastolic 57–92; PULSE 69–95; RESP 16–22; TEMP 35.9–36.8; O2SAT 88–100
[2022-11-14] MEDS: CEFEPIME 1 GM/NS 50 ML 1 GM/50 ML BAG IVPB (03:00)
[2022-11-14] MEDS: SALINE LOCK FLUSH 10 ML IV PUSH ×3 (05:45→23:01)
[2022-11-14 06:42] LABS: INR 1.3
[2022-11-14 06:45] LABS: Alanine Aminotransferase 16 U/L (6-35); Estimated CRCL calculation 29 ml/min; Estimated Glomerular Filt Rate 53
--- NOTE | 2022-11-14 08:56 | PCNFU ---
Nutrition Follow-Up Complete: Severe Protein Caloric Malnutrition as related to inadequate protein-energy intake with increased protein energy needs in setting of chronic disease (kidney transplant)as evidence by minimal oral intake > 1-2 months and significant weight loss of 20% in 4 months. Goal: Adequate intake of at least 75% of meals/supplements Patient is not progressing towards goal. We will continue current goal. Pt current nutrition is Heart Healthy. Last recorded weight is 54.2 kg. Bowel Motility: +Bm reported 11/10 Labs Reviewed:GFR 53 Meds Noted:Vit B 12, Vit D, Lopressor, Lovenox Skin:WNL Additional Notes: Patient COVID positive. Nursing states patient is lethargic today. No oral intake reported. Diet supplements of Ensure Enlive TID providing an additional 350 kcals and 20 gms protein. Agree with diet orders. PO intake encouraged. Monitoring: RD will monitor every 3 days.
[2022-11-14] MEDS: TACROLIMUS 0.5 MG CAPSULE 1 MG PO ×2 (09:27→22:59)
[2022-11-14] MEDS: METOPROLOL TARTRATE 25 MG TABLET 75 MG PO ×2 (09:28→22:59)
[2022-11-14] MEDS: CYANOCOBALAMIN 1,000 MCG TABLET 1000 MCG PO (09:29)
[2022-11-14] MEDS: guaiFENesin 12 HR 600 MG TABCR 1200 MG PO ×2 (09:29→22:59)
[2022-11-14] MEDS: ASPIRIN 81 MG ENTERIC TABLET PO (09:29)
[2022-11-14] MEDS: ENOXAPARIN 60 MG/0.6 ML SYRINGE 54 MG SUB-Q ×2 (09:29→22:56)
[2022-11-14] MEDS: DOCUSATE SODIUM 100 MG CAPSULE PO ×2 (09:30→19:33)
[2022-11-14] MEDS: CHOLECALCIFEROL 1,000 UNITS TABLET 2000 UNITS PO (09:31)
[2022-11-14] MEDS: ACYCLOVIR 200 MG CAPSULE PO ×2 (09:31→19:33)
[2022-11-14] MEDS: LIDOCAINE 5% PATCH 2 PATCH TOPICAL (09:31)
[2022-11-14] MEDS: SERTRALINE HCL 50 MG TABLET PO (09:31)
[2022-11-14] MEDS: REMDESIVIR 100 MG/NS 250 ML 100 MG/250 ML BAG 250 MG IVPB (10:38)
--- NOTE | 2022-11-14 11:16 | PM.IMPN ---
Progress Note: A&P Assessment and Plan (1) Diastolic heart failure: Qualifiers: Heart failure chronicity: acute on chronic Qualified Code(s): I50.33 - Acute on chronic diastolic (congestive) heart failure Code(s): I50.30 - Unspecified diastolic (congestive) heart failure Status: Acute Assessment and Plan: Appreciate cardiology and pulmonary input Received tocilizumab x1 11/10/2022 Continue diuresis with Lasix p.o.. Renal function normalizing (2) Pneumonia due to COVID-19 virus: Code(s): U07.1 - COVID-19; J12.82 - Pneumonia due to coronavirus disease 2019 Status: Acute Assessment and Plan: Covid retested and was positive Chest xray indicated pulmonary opacities Bipap added Remdesivir started Prednisone changed to dexamethasone Continue with supplemental oxygen Pulmonology consulted. They have signed off Oxygen requirement coming down. Now on 2 L oxygen Will do home O2 eval (3) Pleural effusion on left: Code(s): J90 - Pleural effusion, not elsewhere classified Status: Acute Assessment and Plan: Chest x-ray shows mild pulmonary edema Continue diuresis as tolerated (4) Pulmonary hypertension: Code(s): I27.20 - Pulmonary hypertension, unspecified Status: Acute Assessment and Plan: Echo showed pulmonary hypertension at 50 Consulted cardiology for further advise could be related to the heart failure D.Dimer 2.90 CTA no pulmonary embolus noted Pulmonology consulted (5) Renal transplant, status post: Code(s): Z94.0 - Kidney transplant status Status: Acute Assessment and Plan: S/P renal transplant in Feb 2013 Resumed tacrolimus (6) Hyperlipidemia: Qualifiers: Hyperlipidemia type: pure hypercholesterolemia Qualified Code(s): E78.00 - Pure hypercholesterolemia, unspecified Code(s): E78.5 - Hyperlipidemia, unspecified Status: Acute Assessment and Plan: Continue simvastatin Plan Transfer to [place] canceled since patient does not meet criteria to be admitted to the ICU anymore over there and they have a waiting list of 5 days for her to be admitted to medical bed Subjective Date/time seen: 11/14/22 11:16 Interval history: Patient states she feels weak and short of breath although she is saturating well on 2 L oxygen Patient's son-in-law luis Chavez [phone], would like daily communication from the medical team Review of Systems Review of Systems: All systems reviewed & are unremarkable except as noted in HPI and below Exam Narrative: General: frail appearing 87-year-old female, Lying in bed, Neuro: awake, alert and oriented x4, speech clear, no focal neuro deficits noted HEENMT: normocephalic, atraumatic, EOMI, sclerae anicteric, moist oral mucosa Respiratory: Diminished breath sounds bilaterally without wheezes, rhonchi, and crackles, nonlabored breathing Cardio: regular rate, regular rhythm with S1-S2 Abdomen: nondistended, normoactive bowel sounds, soft, nontender to palpation Extremities: 1+ pitting edema, erythema, or tenderness to palpation, DP pulses 2+ bilaterally Skin: no rashes or lesions, warm and dry Psych: appropriate mood and affect, judgment and insight intact Objective Data Vital Signs Vital Signs: Vital Signs - 24 hr 11/13/22 12:00 11/13/22 12:00 11/13/22 12:00 Temperature 97.5 F L Pulse Rate 77 77 Respiratory Rate 16 Blood Pressure 155/59 H Pulse Oximetry 93 94 Oxygen Delivery Room Air Oxygen Flow Rate 11/13/22 14:00 11/13/22 16:00 11/13/22 16:00 Temperature 98.0 F Pulse Rate 78 81 83 Respiratory Rate 16 Blood Pressure 142/67 H Pulse Oximetry 91 Oxygen Delivery Oxygen Flow Rate 11/13/22 18:00 11/13/22 16:00 11/13/22 20:00 Temperature 98.0 F Pulse Rate 77 85 Respiratory Rate 18 Blood Pressure Pulse Oximetry 95 93 Oxygen Delivery Room Air Oxygen Flow R
--- NOTE | 2022-11-14 13:48 | HOMEO2EVAL ---
Evaluation was performed at [facility] Home Oxygen Evaluation RC: Home Oxygen (O2) Evaluation Start: 11/14/22 09:18 Freq: ONCE Status: Active Protocol: RPE Activity Type Activity Date Activity User E-sign Co-sign Detail Recorded Client Recorded Date Recorded By Document 11/14/22 13:00 [email or web address] [email or web address] 11/14/22 13:48 DJO Document 11/14/22 13:05 [email or web address] [email or web address] 11/14/22 13:48 DJO Document 11/14/22 13:10 [email or web address] [email or web address] 11/14/22 13:48 DJO Document 11/14/22 13:15 [email or web address] [email or web address] 11/14/22 13:48 DJO Document 11/14/22 13:25 [email or web address] [email or web address] 11/14/22 13:48 DJO 11/14/22 11/14/22 11/14/22 13:00 13:05 13:10 Home O2 Evaluation [Oxygen] -Test Phase Resting Resting Exercise -Oxygen Delivery Room Air Nasal Cannula Nasal Cannula -Oxygen Flow Rate (L/min) 1 1 [Pulse Oximetry] -Pulse Oximetry (90-100 %) 88 L 90 88 L [Pulse Rate] -Pulse Rate (60-100 beats/min) 82 82 92 [Charges] -Treatment Charges O2 Evaluation - Inpatient 11/14/22 11/14/22 13:15 13:25 Home O2 Evaluation [Oxygen] -Test Phase Exercise Resting -Oxygen Delivery Nasal Cannula Nasal Cannula -Oxygen Flow Rate (L/min) 2 1 [Pulse Oximetry] -Pulse Oximetry (90-100 %) 91 90 [Pulse Rate] -Pulse Rate (60-100 beats/min) 95 84 [Charges] -Treatment Charges
--- NOTE | 2022-11-14 14:13 | PCRCNOTE ---
HOME O2 EVAL COMPLETE, 1 L AT REST AND 2 L WITH ACTIVITY. SET UP WITH IV& RESP CARE. PHONE NUMBER . TANK IN ROOM FOR DISCHARGE
[2022-11-14 16:35] LABS: Tacrolimus Prograf 31.4 mcg/L
[2022-11-14] MEDS: FUROSEMIDE 20 MG TABLET PO (19:33)
[2022-11-14] MEDS: PRAVASTATIN SODIUM 20 MG TABLET PO (22:59)
[2022-11-15] VITALS (11 sets, daily range): BP systolic 175–193; BP diastolic 64–98; PULSE 79–92; RESP 16–24; TEMP 35.9–36.4; O2SAT 96–100
[2022-11-15] MEDS: SALINE LOCK FLUSH 10 ML IV PUSH (04:23)
[2022-11-15] MEDS: SALINE LOCK FLUSH 20 ML IV PUSH (04:38)
[2022-11-15 05:22] LABS: Estimated CRCL calculation 26 ml/min; Estimated Glomerular Filt Rate 47
[2022-11-15] MEDS: LEVOTHYROXINE SODIUM 100 MCG TABLET PO (07:02)
--- NOTE | 2022-11-15 09:47 | PM.DS ---
DS: Admitting Diagnosis Discharge Date 11/15/22 Admitting Diagnosis COVID acute hypoxic respiratory failure DS: Discharge Diagnosis Discharge Diagnosis (1) Respiratory failure with hypoxia: Code(s): J96.91 - Respiratory failure, unspecified with hypoxia Status: Acute (2) Pneumonia due to COVID-19 virus: Code(s): U07.1 - COVID-19; J12.82 - Pneumonia due to coronavirus disease 2019 Status: Acute (3) Renal transplant, status post: Code(s): Z94.0 - Kidney transplant status Status: Acute (4) Hypertension: Qualifiers: Hypertension type: essential hypertension Qualified Code(s): I10 - Essential (primary) hypertension Code(s): I10 - Essential (primary) hypertension Status: Acute (5) Hyperlipidemia: Qualifiers: Hyperlipidemia type: pure hypercholesterolemia Qualified Code(s): E78.00 - Pure hypercholesterolemia, unspecified Code(s): E78.5 - Hyperlipidemia, unspecified Status: Acute DS: Summary Hospital Course Hospital Course: Assessment and Plan (1) Pneumonia due to COVID-19 virus: ?Code(s): U07.1 - COVID-19; J12.82 - Pneumonia due to coronavirus disease 2019 ?Status:?Acute ?Assessment and Plan: ?Patient tested positive for COVID-19 on 11/10/22 and started on remdesivir, dexamethasone on 11/10/22 and given tocilizumab on 11/10/22 as she required BiPAP support. ? The patient was initially treated with vancomycin 11/08/22 and Zosyn from 11/08/2022 through 11/09/2022 and placed on cefepime on 11/09. Remdesivir for 10 days unless he should recover and tolerate room air with rest, ambulation and while sleeping. - Dexamethasone 6 mg IV for 10 days - Continuous pulse oximetry - Avoid any fluid overload. - emperic ? Vancomycin (day 3) and cefepime (day 2). - Albuterol inhaler? Q 4 for now, no wheezes. -? influenza and RSV negative on 11/07/2022 -? I have discontinue the tacrolimus to avoid additional immunosuppression. -? I have ordered upper and lower extremity Dopplers to exclude DVT. Keep saturations are 90-94% with? BiPAP.? I did attempt to place her on 15 L nasal cannula with an overlying 15 L non-rebreather mask but she had desaturations into the mid 80s.? We placed her back on BiPAP.? We will try high-flow nasal cannula 60 L and 90% FiO2 to see if this can provide adequate oxygenation.? The patient states the BiPAP mask is very uncomfortable.? I asked the patient what her wishes were should she deteriorate regarding mechanical ventilation and she said she would like to speak with her about this.? I spoke with the and the son-in-law who is a ice rink attendant regarding mechanical ventilation and they will discuss this as a family. I told the ? that she has severe Covid pneumonia? and that currently she is not doing well requiring very high levels of? respiratory support and oxygen. 11/11 ? Overall the patient states she feels slightly worse than yesterday.? The mask is difficult to tolerate.? She does have a cough with no wheezes.? White blood cell count is 5.1, creatinine is 1.10.? made 900 mL of urine yesterday.? tacrolimus? restarted per hospitalist team.? Plan:? continue remdesivir and dexamethasone both day 2. S/P tocilizumab on 11/10.? empiric vancomycin, day 4 and cefepime, day 3.? status post Zosyn from 11/08 through 11/09. 11/12 ? Patient states that her breathing is normal.? She still has a cough with phlegm production.? She still has fatigue and says that she just feels horrible.? Plan: continue remdesivir and dexamethasone both day 3. S/P tocilizumab on 11/10.? status post Zosyn from 11/08 through 11/09. empiric vancomycin, day 5 and cefepime, day 4. ? I will discontinue vancomycin with worsening renal function. ? I have discontinued tacrolimus as the patient has an acute Covid infection and possibly bacterial infection. 11/13? patient states she is having minimal shortness of breath but that she feels tired, aching and overall very very
[2022-11-15] MEDS: FUROSEMIDE 20 MG TABLET PO ×2 (11:01→19:48)
[2022-11-15] MEDS: TACROLIMUS 0.5 MG CAPSULE 1 MG PO ×2 (11:01→21:09)
[2022-11-15] MEDS: SERTRALINE HCL 50 MG TABLET PO (11:01)
[2022-11-15] MEDS: ENOXAPARIN 60 MG/0.6 ML SYRINGE 54 MG SUB-Q ×2 (11:01→21:10)
[2022-11-15] MEDS: guaiFENesin 12 HR 600 MG TABCR 1200 MG PO ×2 (11:02→21:07)
[2022-11-15] MEDS: METOPROLOL TARTRATE 25 MG TABLET 75 MG PO ×2 (11:02→21:07)
[2022-11-15] MEDS: lisinopriL 10 MG TABLET PO (11:04)
[2022-11-15] MEDS: ASPIRIN 81 MG ENTERIC TABLET PO (11:04)
[2022-11-15] MEDS: CHOLECALCIFEROL 1,000 UNITS TABLET 2000 UNITS PO (11:04)
[2022-11-15] MEDS: ACYCLOVIR 200 MG CAPSULE PO ×2 (11:04→19:48)
[2022-11-15] MEDS: DOCUSATE SODIUM 100 MG CAPSULE PO ×2 (11:04→19:48)
[2022-11-15] MEDS: amLODIPine BESYLATE 5 MG TABLET 10 MG PO (11:06)
[2022-11-15] MEDS: CYANOCOBALAMIN 1,000 MCG TABLET 1000 MCG PO (11:06)
[2022-11-15] MEDS: PRAVASTATIN SODIUM 20 MG TABLET PO (21:08)
--- NOTE | 2022-11-15 22:26 | PC.NURSE ---
1999-Awaiting discharge until Pt can urinate. Discharge already completed and discharge instructions given to the family per previous RN. Right cephalic midline IV and urinary catheter previously removed per day shift RN. Rt upper arm found wrapped in a gauze dressing and remains dry and intact. 2119-Pt was incontinent of a large amount of urine. Pt cleaned up and dry linens provided. 2201-Pt discharged to home with provided home O2 tank. Personal belongings returned with family. Family states that they have previously received the discharge paperwork. Pt assisted to personal vehicle in a WC, accompanied by DENEEN Choi and family.
[2022-11-16 13:52] LABS: Amylase, Pleural Fluid 12 U/L
== END 2022-11-15 22:02 | disposition home health service (06) | DRG 177 ==
LOC: ANHED 02:31 → ANH2MED 05:50 → ANHIMU 11-10 13:50
PROVIDERS: Internal Medicine; Nurse Practitioner; Admitting Provider Internal Medicine; Emergency Provider Emergency Medicine; PCP Family Medicine; Visit Provider Hospitalist
DX: U07.1 COVID-19 (principal); E43 Unspecified severe protein-calorie malnutrition; J12.82 Pneumonia due to coronavirus disease 2019; I50.31 Acute diastolic (congestive) heart failure; J96.01 Acute respiratory failure with hypoxia; I82.451 Acute embolism and thrombosis of right peroneal vein; Z94.0 Kidney transplant status; I11.0 Hypertensive heart disease with heart failure; I27.20 Pulmonary hypertension, unspecified; R30.0 Dysuria; E03.9 Hypothyroidism, unspecified; E78.5 Hyperlipidemia, unspecified; M81.0 Age-related osteoporosis without current pathological fracture; Z79.82 Long term (current) use of aspirin; Z68.21 Body mass index [BMI] 21.0-21.9, adult
CPT/HCPCS: 32555; 36415; 36569; 36600; 70450; 71045; 71046; 71275; 76775; 80048; 80053; 80197; 80202; 81003; 82042; 82150; 82306; 82375; 82465; 82565; 82607; 82746; 82805; 82945; 83050; 83615; 83735; 83880; 84100; 84155; 84157; 84311; 84460; 84478; 84484; 85025; 85027; 85055; 85380; 85610; 85730; 87015; 87040; 87070; 87075; 87081; 87102; 87116; 87205; 87206; 87637; 88108; 88184; 88305; 89051; 93005; 93306; 93970; 94002; 94618; 94640; 96374; 97161; 97165; 97530; 99285; A9270; C1751; J0248; J0692; J1100; J1650; J1940; J2405; J2543; J3370; J3475; J7030; J7050; J7512; Q0249; Q9967; U0003; U0005

== ENCOUNTER 2023-01-01 10:31 | Outpatient (CLI) | payer MEDICARE, OTHER, SELFPAY ==
[2023-01-01 20:41] LABS: Thyroid Stimulating Hormone Reflex 0.043 uIU/mL (0.465-4.68)
[2023-01-01 21:28] LABS: Free T4 Free Thyroxine Reflex 1.69 ng/dL (0.78-2.19)
== END 2023-01-01 10:32 | disposition home or self-care (01) ==
LOC: ANHGOSHLAB 10:33
PROVIDERS: PCP Family Medicine; Visit Provider Family Medicine
DX: Z13.29 Encounter for screening for other suspected endocrine disorder (principal); Z09 Encounter for follow-up examination after completed treatment for conditions other than malignant neoplasm
CPT/HCPCS: 36415; 84439; 84443; 84480

== ENCOUNTER 2023-04-23 14:09 | Outpatient (CLI) | payer MEDICARE, OTHER, SELFPAY ==
[2023-04-23 19:40] LABS: Thyroid Stimulating Hormone Reflex 0.105 uIU/mL (0.465-4.68)
[2023-04-23 20:44] LABS: Free T4 Free Thyroxine Reflex 1.81 ng/dL (0.78-2.19)
[2023-04-23 22:22] LABS: Total Triiodothyronine (T3) 0.97 NG/ML (0.97-1.69)
== END 2023-04-23 14:10 | disposition home or self-care (01) ==
LOC: ANHGOSHLAB 14:10
PROVIDERS: PCP Family Medicine; Visit Provider Family Medicine
DX: E03.9 Hypothyroidism, unspecified (principal)
CPT/HCPCS: 36415; 84439; 84443; 84480

== ENCOUNTER 2023-05-06 21:36 | Outpatient (NON) | payer MEDICARE, OTHER, SELFPAY | END 2023-05-06 21:37 | disposition home or self-care (01) | LOC: ANHLAB 21:37 | PROVIDERS: PCP Family Medicine; Visit Provider Nurse Practitioner | DX: R82.90 Unspecified abnormal findings in urine (principal) | CPT/HCPCS: 87077; 87086; 87186 ==

== ENCOUNTER 2023-05-22 09:52 | Outpatient (RCR) | payer MEDICARE, OTHER, SELFPAY ==
[2023-05-22 10:44] LABS: Basophils Absolute Auto 0.1 K/mm3 (0.0-0.1); Eosinophils Absolute Auto 0.4 K/mm3 (0-0.3); Eosinophils Percent Auto 6.4 % (0-4.4); Hematocrit 37.9 % (37.0-47.0); Hemoglobin 11.8 g/dL (12.0-15.0); Immature Granulocyte Absolute 0.02 K/mm3 (0.00-0.031); Immature Granulocyte Percent A 0.3 % (0-0.5); Lymphocytes Absolute Auto 0.58 K/mm3 (0.9-3.2); Lymphocytes Percent Auto 9.7 % (18.3-44.2); Mean Corpuscular HGB Conc 31.1 g/dl (32-36); Mean Corpuscular Hemoglobin 32.6 pg (26-34); Mean Corpuscular Volume 104.7 fl (80-100); Mean Platelet Volume 10.1 fl (7.4-10.4); Monocytes Absolute Auto 0.8 K/mm3 (0.1-0.6); Monocytes Percent Auto 12.6 % (2.6-8.5); Neutrophils Absolute Auto 4.2 K/mm3 (1.3-6.7); Platelet Count Result 142 k/mm3 (150-375); Red Blood Count 3.62 M/mm3 (4.2-5.4); Red Cell Distribution Width 13.3 % (11.5-14.5)
[2023-05-22 11:01] LABS: Alanine Aminotransferase 17 U/L (6-35); Alkaline Phosphatase 125 U/L (38-126); Anion Gap 10 mmol/L (8-16); Aspartate Amino Transferase 25 U/L (14-36); Bilirubin,Total 0.6 mg/dL (0.2-1.3); Blood Urea Nitrogen 47 mg/dL (7-17); Calcium 10.1 mg/dL (8.4-10.2); Carbon Dioxide 24 mmol/L (22-30); Chloride 105 mmol/L (98-107); Cholesterol 146 mg/dL (0-200); Estimated Glomerular Filt Rate 39; Glucose 93 mg/dL (65-110); HDL Direct 55 mg/dL; Phosphorus 3.3 mg/dL (2.5-4.5); Potassium 4.8 mmol/L (3.4-5.0); Sodium 139 mmol/L (137-145); Triglycerides 96 mg/dL (<150)
[2023-05-22 11:12] LABS: LDL Cholesterol Direct 67 mg/dL
== END 2023-08-20 23:59 | disposition home or self-care (01) ==
LOC: ANHLAB 09:52
PROVIDERS: PCP Family Medicine; Visit Provider Internal Medicine Nephrology
DX: E78.5 Hyperlipidemia, unspecified (principal); Z94.0 Kidney transplant status; Z79.899 Other long term (current) drug therapy
CPT/HCPCS: 36415; 80061; 80069; 80076; 80197; 85025

== ENCOUNTER 2023-07-14 14:44 | Outpatient (CLI) | payer MEDICARE, OTHER, SELFPAY ==
[2023-07-14 19:26] LABS: Alanine Aminotransferase 17 U/L (6-35); Alkaline Phosphatase 115 U/L (38-126); Anion Gap 6 mmol/L (8-16); Aspartate Amino Transferase 27 U/L (14-36); Bilirubin,Total 0.8 mg/dL (0.2-1.3); Blood Urea Nitrogen 23 mg/dL (7-17); Calcium 9.7 mg/dL (8.4-10.2); Carbon Dioxide 29 mmol/L (22-30); Chloride 104 mmol/L (98-107); Estimated Glomerular Filt Rate 53; Glucose 103 mg/dL (65-110); Potassium 4.3 mmol/L (3.4-5.0); Sodium 139 mmol/L (137-145)
[2023-07-14 20:16] LABS: Basophils Absolute Auto 0.1 K/mm3 (0.0-0.1); Basophils Percent Auto 0.6 % (0.2-1.2); Eosinophils Absolute Auto 0.1 K/mm3 (0-0.3); Eosinophils Percent Auto 1.4 % (0-4.4); Hemoglobin 12.9 g/dL (12.0-15.0); Immature Granulocyte Absolute 0.02 K/mm3 (0.00-0.031); Immature Granulocyte Percent A 0.3 % (0-0.5); Lymphocytes Absolute Auto 0.35 K/mm3 (0.9-3.2); Lymphocytes Percent Auto 4.4 % (18.3-44.2); Mean Corpuscular HGB Conc 30.7 g/dl (32-36); Mean Corpuscular Hemoglobin 33.1 pg (26-34); Mean Corpuscular Volume 107.7 fl (80-100); Mean Platelet Volume 11.4 fl (7.4-10.4); Monocytes Absolute Auto 0.5 K/mm3 (0.1-0.6); Monocytes Percent Auto 6.2 % (2.6-8.5); Neutrophils Absolute Auto 6.9 K/mm3 (1.3-6.7); Neutrophils Percent Auto 87.1 % (45.5-73.1); Platelet Count Result 149 k/mm3 (150-375); Red Cell Distribution Width 12.4 % (11.5-14.5); White Blood Count 7.9 K/mm3 (4.5-10.0)
[2023-07-14 20:56] LABS: Macrocytosis 1+ (NORMAL); Ovalocytes 1+ (NORMAL); Platelet Estimate Adequate (Adequate); Schistocytes None Seen (NORMAL)
[2023-07-14 22:40] LABS: Add Urine Microscopic? YES
[2023-07-14 22:41] LABS: Bacteria Urine 1+ /hpf; RBC Urine 0-2 /hpf (0-2); Squamous Epithelial Cell Urine Few /hpf (Few)
[2023-07-14 22:42] LABS: Appearance Urine Clear (Clear); Blood Urine Trace-Intact (Negative); Color Urine Dark Yellow (Yellow); Glucose Urine UA Negative (Negative); Ketones Urine Trace mg/dL (Negative); Protein Urine Negative (Negative); Specific Grav Ur >= 1.030 (1.001-1.035)
[2023-07-14 22:43] LABS: Bilirubin Urine 1+ (Negative); Leukocyte Esterase Ur 1+ LEU/UL (Negative); Nitrate Urine Negative (Negative); Urobilinogen Urine 0.2 mg/dL (<2.0)
[2023-07-15 06:09] LABS: Free T4 Free Thyroxine Reflex 1.38 ng/dL (0.78-2.19)
[2023-07-15 07:17] LABS: Total Triiodothyronine (T3) 0.87 NG/ML (0.97-1.69)
== END 2023-07-14 14:45 | disposition home or self-care (01) ==
LOC: ANHGOSHLAB 14:45
PROVIDERS: PCP Family Medicine; Visit Provider Family Medicine
DX: R53.83 Other fatigue (principal); Z13.228 Encounter for screening for other metabolic disorders; Z13.29 Encounter for screening for other suspected endocrine disorder
CPT/HCPCS: 36415; 80053; 81001; 84439; 84443; 84480; 85025; 87086

== ENCOUNTER → 2023-07-14 15:14 | Outpatient (CLI) | payer MEDICARE, OTHER, SELFPAY ==
--- NOTE | ~2023-07-14 | XR_ITS ---
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 RESULT: Lines, tubes, and devices: None. Lungs and pleura: Moderate diffuse reticular opacities with vascular congestion. Moderate left costo phrenic angle blunting. Senescent/emphysematous change. Cardiomediastinal silhouette: Stable. Other: No acute osseous or upper abdominal finding. IMPRESSION: Moderate interstitial edema. Moderate left pleural effusion. Reviewed, dictated and finalized at location K. BILITATION ENGINEER
== END ==
PROVIDERS: PCP Family Medicine; Visit Provider Family Medicine
DX: J39.8 Other specified diseases of upper respiratory tract (principal)
CPT/HCPCS: 71046

== ENCOUNTER 2024-03-14 15:37 | Outpatient (CLI) | payer MEDICARE, OTHER, SELFPAY ==
--- NOTE | ~2024-03-14 | XR_ITS ---
EXAMINATION: XR chest 2V Exam Date/Time: 03/14/2024 15:40 CDT HISTORY: sob hx of chf Comparison: 07/14/2023. RESULT: Lines, tubes, and devices: None. Lungs and pleura: Emphysematous and senescent changes. Chronic moderate left costophrenic angle blun ting with chronic basilar airspace disease. Cardiomediastinal silhouette: Stable. Dilated central pulmonary arteries. Mitral annulus calcificati on Other: No acute osseous or upper abdominal finding. IMPRESSION: No acute cardiopulmonary process. Chronic moderate left pleural effusion with left basilar atelectasi s/consolidation. Emphysematous change. Findings suggestive of pulmonary arterial hypertension. Reviewed, dictated and finalized at location K. IMPRESSION: No acute cardiopulmonary process. Chronic moderate left pleural effusion with l eft basilar atelectasis/consolidation. Emphysematous change. Findings suggestiv e of pulmonary arterial hypertension.
== END 2024-03-14 15:38 | disposition home or self-care (01) ==
PROVIDERS: PCP Family Medicine; Visit Provider Family Medicine
DX: J39.8 Other specified diseases of upper respiratory tract (principal); J90 Pleural effusion, not elsewhere classified; J98.11 Atelectasis
CPT/HCPCS: 71046

== ENCOUNTER 2024-03-14 22:32 | Outpatient (NON) | payer MEDICARE, OTHER, SELFPAY | END 2024-03-14 22:33 | disposition home or self-care (01) | LOC: ANHLAB 22:36 | PROVIDERS: PCP Family Medicine; Visit Provider Family Medicine | DX: R30.0 Dysuria (principal) | CPT/HCPCS: 87077; 87086; 87088; 87186 ==

== ENCOUNTER 2024-04-26 11:31 | Outpatient (CLI) | payer MEDICARE, OTHER, SELFPAY ==
[2024-04-26 12:16] LABS: Basophils Percent Auto 0.6 % (0.2-1.2); Eosinophils Absolute Auto 0.1 K/mm3 (0-0.3); Eosinophils Percent Auto 1.5 % (0-4.4); Hematocrit 39.7 % (37.0-47.0); Hemoglobin 12.3 g/dL (12.0-15.0); Immature Granulocyte Absolute 0.03 K/mm3 (0.00-0.031); Immature Granulocyte Percent A 0.4 % (0-0.5); Immature Platelet Fraction Pct 4.3 % (0.9-11.2); Lymphocytes Absolute Auto 0.45 K/mm3 (0.9-3.2); Lymphocytes Percent Auto 6.6 % (18.3-44.2); Mean Corpuscular Volume 106.4 fl (80-100); Monocytes Absolute Auto 0.4 K/mm3 (0.1-0.6); Monocytes Percent Auto 6.5 % (2.6-8.5); Neutrophils Absolute Auto 5.7 K/mm3 (1.3-6.7); Neutrophils Percent Auto 84.4 % (45.5-73.1); Platelet Count Result 123 k/mm3 (150-375); Red Blood Count 3.73 M/mm3 (4.2-5.4); Red Cell Distribution Width 12.8 % (11.5-14.5); White Blood Count 6.8 K/mm3 (4.5-10.0)
[2024-04-26 12:43] LABS: Alanine Aminotransferase 23 U/L (6-35); Albumin Level 3.9 g/dL (3.5-5.1); Alkaline Phosphatase 136 U/L (38-126); Anion Gap 8 mmol/L (4-12); Aspartate Amino Transferase 28 U/L (14-36); Bilirubin,Total 1.2 mg/dL (0.2-1.3); Blood Urea Nitrogen 30 mg/dL (7-17); Calcium 9.7 mg/dL (8.4-10.2); Carbon Dioxide 25 mmol/L (22-30); Chloride 107 mmol/L (98-107); Estimated Glomerular Filt Rate 59; Glucose 100 mg/dL (65-110); Potassium 4.3 mmol/L (3.4-5.0); Sodium 140 mmol/L (137-145)
[2024-04-26 13:33] LABS: Macrocytosis 2+ (NORMAL); Platelet Estimate Slightly Decreased (Adequate); Schistocytes None Seen
[2024-04-26 14:22] LABS: Free T4 Free Thyroxine 1.87 ng/mL (0.78-2.19)
[2024-04-27 16:33] LABS: Tacrolimus Prograf 5.4 mcg/L
== END 2024-04-26 11:32 | disposition home or self-care (01) ==
PROVIDERS: PCP Family Medicine; Visit Provider Family Medicine
DX: E03.9 Hypothyroidism, unspecified (principal); R53.83 Other fatigue; Z94.0 Kidney transplant status; Z13.228 Encounter for screening for other metabolic disorders
CPT/HCPCS: 36415; 80053; 80197; 84439; 84443; 85025; 85055

== ENCOUNTER 2024-06-16 09:06 | Outpatient (CLI) | payer MEDICARE, OTHER, SELFPAY ==
--- NOTE | ~2024-06-16 | CT_ITS ---
CT Scan of the Chest without Contrast: Clinical Indication: Pleural effusion Technique: Contiguous sections were acquired throughout the chest without intravenous contrast. Dose reduction technique was used on this scan by utilizing automated exposure control and iterative recon struction technique. The dose-length product (DLP) was 146.06 mGy-cm. COMPARISON: 11/08/2022 Findings: There is no evidence of any significant mediastinal, hilar or axillary lymphadenopathy. There is card iomegaly with extensive coronary artery calcification. No pericardial effusion. No right pleural effusion. Moderate left pleural effusion present. There is extensive left lower lobe atelectasis. No other significant pulmonary abnormality seen. Images through the upper abdomen reveal no abnormalities. Impression: Moderate left pleural effusion with extensive left lower lobe atelectasis. Reviewed, dictated and finalized at [facility]. E INSURANCE SALES REPRESENTATIVE Impression: Moderate left pleural effusion with extensive left lower lobe atelectasis.
== END 2024-06-16 09:07 | disposition home or self-care (01) ==
PROVIDERS: PCP Family Medicine; Visit Provider Internal Medicine
DX: J90 Pleural effusion, not elsewhere classified (principal); J98.11 Atelectasis
CPT/HCPCS: 71250

== ENCOUNTER 2024-06-20 09:07 | Outpatient (CLI) | payer MEDICARE, OTHER, SELFPAY ==
[2024-06-20 09:47] LABS: Basophils Percent Auto 0.5 % (0.2-1.2); Eosinophils Absolute Auto 0.2 K/mm3 (0-0.3); Eosinophils Percent Auto 2.2 % (0-4.4); Hematocrit 41.1 % (37.0-47.0); Hemoglobin 13.2 g/dL (12.0-15.0); Immature Granulocyte Absolute 0.02 K/mm3 (0.00-0.031); Immature Granulocyte Percent A 0.3 % (0-0.5); Lymphocytes Absolute Auto 0.43 K/mm3 (0.9-3.2); Lymphocytes Percent Auto 5.9 % (18.3-44.2); Mean Corpuscular HGB Conc 32.1 g/dl (32-36); Mean Corpuscular Hemoglobin 33.4 pg (26-34); Mean Corpuscular Volume 104.1 fl (80-100); Mean Platelet Volume 10.3 fl (7.4-10.4); Monocytes Absolute Auto 0.6 K/mm3 (0.1-0.6); Neutrophils Absolute Auto 6.1 K/mm3 (1.3-6.7); Neutrophils Percent Auto 83.1 % (45.5-73.1); Platelet Count Result 133 k/mm3 (150-375); Red Blood Count 3.95 M/mm3 (4.2-5.4); Red Cell Distribution Width 13.3 % (11.5-14.5); White Blood Count 7.3 K/mm3 (4.5-10.0)
[2024-06-20 10:00] LABS: INR 1.1; Prothrombin Time 14.7 Seconds (11.1-14.7)
[2024-06-20 10:05] LABS: Anion Gap 4 mmol/L (4-12); Blood Urea Nitrogen 28 mg/dL (7-17); Calcium 9.9 mg/dL (8.4-10.2); Carbon Dioxide 29 mmol/L (22-30); Chloride 105 mmol/L (98-107); Estimated Glomerular Filt Rate 59; Glucose 102 mg/dL (65-110); Potassium 4.4 mmol/L (3.4-5.0); Sodium 138 mmol/L (137-145)
[2024-06-20 10:08] LABS: NT Pro B Type Natriuretic Pept 2240 pg/mL (19.9-100)
[2024-06-20 10:29] LABS: Total Triiodothyronine (T3) 0.82 NG/ML (0.97-1.69)
[2024-06-20 11:31] LABS: Free T4 Free Thyroxine 1.24 ng/dL (0.78-2.19)
--- OUTSIDE RECORDS SUMMARY | 2024-06-27 01:49 | XMS_ITS | Referral Summary ---
Author Organization [facility] Address [address] [place] [address] Care Team Providers Care Graduate Assistant Name Role Phone Fadi Clemons DO Primary Care Provider [phone] Source Comments [facility],non-owned Affiliates and Associated Physician Practices is amultiple site organization consisting of ambulatory clinics and hospital sitesin [place], [place], [place] and [place]. This disclosure is being madepursuant to the Care Everywhere program and may not contain all information available regarding this patient. Last updated 18.[facility] [employer] Allergies Active Allergy Reactions Criticality Noted Date Comments Cephalexin Other,Rash High 04/14/2011 Trouble with bladder Ciprofloxacin Unknown 06/03/2022 Levofloxacin Unknown 04/29/2018 Wound Dressing Adhesive Rash High 08/19/2018 Tetracyclines Rash High 04/30/2011 Medications * Be aware that medications may not be up to date on this document. Alwaysverify current medications with the patient. Medication Sig Dispensed Refills Start Date End Date Status metoprolol tartrate IR (Lopressor) 50 MG tabletIndications:Hy pertension Take 1.5 (one and one-half) tablets by mouth 2 times daily Reasons: High Blood Pressure Disorder Active lisinopril (Prinivil; Zestril) 10 MG tabletIndications:Hy pertension Take 1 (one) tablet by mouth once daily Reasons: High Blood Pressure Disorder Active aspirin EC (Ecotrin) 81 MG tablet Take 1 (one) tablet by mouth once Active predniSONE (Deltasone) 5 MG tablet Take 1 (one) tablet by mouth once daily 05/23/2022 Active levothyroxine (Synthroid) 100 MCG tablet Take 1 (one) tablet by mouth once daily 06/20/2021 Active cyanocobalamin 100 MCG tablet Take 1 (one) tablet by mouth once daily Active Cholecalciferol 50 MCG (2000 UT) Take 1 (one) tablet by mouth once daily 05/15/2022 Active biotin 2.5 MG capsule Take 1 (one) capsule by mouth once daily Active acyclovir (Zovirax) 200 MG capsule Take 1 (one) capsule by mouth 2 times daily 05/16/2022 Active trimethoprim (Trimpex) 100 MG tablet Take 0.5 (one-half) tablet by mouth at bedtime 07/03/2021 Active HYDROcodone-acetamin ophen (Tillson) 5-325 MG tabletIndications: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 Take 1 (one) tablet by mouth every 6 hours as needed for Pain 12 tablet 08/05/2022 Active docusate sodium (Colace) 100 MG capsule Take 1 (one) capsule by mouth 2 times daily 30 capsule 08/05/2022 Active Social History Tobacco Use Types Packs/Day Years Used Date Smoking Tobacco: Never Smokeless Tobacco: Never Tobacco Cessation:Counseling Given: Not Answered Alcohol Use Standard Drinks/Week Comments Never 0 (1 standard drink = 0.6 oz pur e alcohol) Sex and Gender Information Value Date Recorded Sex Assigned at Not on file Gender Identity Not on file Sexual Orientation Not on file Last Filed Vital Signs Vital Sign Reading Time Taken Comments Blood Pressure 128/74 08/05/2022 2:00 PM HAND LEATHER TRIMMER Pulse 94 08/05/2022 1:30 PM HAND LEATHER TRIMMER Temperature 36.3 ??C (97.3 ??F) 08/05/2022 2:00 PM CS T Respiratory Rate 17 08/05/2022 12:15 PM HAND LEATHER TRIMMER Oxygen Saturation 95% 08/05/2022 1:50 PM HAND LEATHER TRIMMER Inhaled Oxygen Concentration - - Weight 56.7 kg (125 lb) 08/05/2022 8:55 AM HAND LEATHER TRIMMER Height 158.8 cm (5' 2.5 ) 08/05/2022 8:55 AM HAND LEATHER TRIMMER Body Mass Index 22.5 08/05/2022 8:55 AM HAND LEATHER TRIMMER Functional Status Functional Status Response Date of Assess ment Is person deaf or have serious hearing difficult y? No 08/05/2022 Is person blind or have serious difficulty seein g? No 08/05/2022 Does person have serious dif ficulty walking/climbing stairs? No 08/05/2022 Does person have difficulty dressing/bathing? No 08/05/2022 Does person have difficulty doing errands alone? Yes 08/05/2022 Cognitive Status Response Date of Assessm ent Does person have difficulty concentrating/remembering/making decisions? No 08/05/2022 Plan of Treatment Not on file Care Teams Graduate Assistant Relationship Specialty Start Date End Date Fadi Clemons DO [facility] [place] [address] PCP - General Family Medicine 08/05/22
--- OUTSIDE RECORDS SUMMARY | 2024-06-27 01:49 | XMS_ITS | Clinical Summary ---
Author Organization [facility] Address [address] [place] [address] Care Team Providers Care Data Examination Clerk Name Role Phone Fadi Clemons DO Primary Care Provider [phone] Source Comments [facility] [employer],non-owned Affiliates and Associated Physician Practices is amultiple site organization consisting of ambulatory clinics and hospital sitesin [place], [place], [place]. This disclosure is being madepursuant to the Care Everywhere program and may not contain all information available regarding this patient. Last updated 18.[facility] [employer] Allergies Active Allergy Reactions Criticality Noted Date [...] mouth at bedtime 07/03/2021 Active HYDROcodone-acetamin ophen (Loda) 5-325 MG tabletIndications:Ba ute cell carcinoma (BCC) [...] Comments Blood Pressure 128/74 08/05/2022 2:00 PM OPEN DEVELOPER OPERATOR Pulse 94 08/05/2022 1:30 PM OPEN DEVELOPER OPERATOR Temperature 36.3 ??C (97.3 ??F) 08/05/2022 2:00 PM CS T Respiratory Rate 17 08/05/2022 12:15 PM OPEN DEVELOPER OPERATOR Oxygen Saturation 95% 08/05/2022 1:50 PM OPEN DEVELOPER OPERATOR Inhaled Oxygen Concentration - - Weight 56.7 kg (125 lb) 08/05/2022 8:55 AM OPEN DEVELOPER OPERATOR Height 158.8 cm (5' 2.5 ) 08/05/2022 8:55 AM OPEN DEVELOPER OPERATOR Body Mass Index 22.5 08/05/2022 8:55 AM OPEN DEVELOPER OPERATOR Plan of Treatment Health Maintenance Due Date Last Done Comments BONE DENSITY TESTING 1935 MEDICARE AWV ? 12 MONTHS 1935 PNEUMOCOCCAL VACCINE 65+ (1 of 2 - PCV) 1943 DTAP/TDAP/TD VACCINES (1 - Tdap) 1956 ZOSTER VACCINE (1 of 2) 1956 Respiratory Syncytial Virus (RSV) Vaccine Pt: or over 60 yrs (1 - 1-dose 75+ series) 2012 DEPRESSION SCREENING 07/06/2023 COVID-19 VACCINE (3 - 2023-2 5 season) 2024 07/01/2021, 09/07/2020 INFLUENZA VACCINE (#1) 2024 05/15/2022 HEPATITIS B VACCINE Aged Out No longe r eligible based on patient's age to complete this topic HIB VACCINE Aged Out No longer eligi ble based on patient's age to complete this topic HPV VACCINE Aged Out No longer eligi ble based on patient's age to complete this topic MENINGOCOCCAL VACCINE Aged Out No stefanie andrez eligible based on patient's age to complete this topic Care Teams Data Examination Clerk Relationship Specialty Start Date End Date Fadi Clemons DO [address] [place] [address] PCP - General Family Medicine 08/05/22
--- OUTSIDE RECORDS SUMMARY | 2024-06-27 01:49 | XMS_ITS | Patient Health Summary ---
Author Organization [facility] Address [address] [place] [place] [address] Care Team Providers Care Guzzler Builder Name Role Phone Fadi Clemons DO Primary Care Provider [phone] Note from [facility][note 3],non-owned Affiliates and Associated Physician Practices is amultiple site organization consisting of ambulatory clinics and hospital sitesin [place], [place], [place] and [place]. This disclosure is being madepursuant to the Care Everywhere program and may not contain all information available regarding this patient. Last updated 18.[facility] Allergies * Cephalexin(Other,Rash) -High Criticality * Ciprofloxacin(Unknown) * Levofloxacin(Unknown) * Wound Dressing Adhesive(Rash) -High Criticality * Tetracyclines(Rash) -High Criticality Medications * Be aware that medications may not be up to date on this document. Alwaysverify current medications with the patient. * metoprolol tartrate IR (Lopressor) 50 MG tablet Take 1.5 (one and one-half) tablets by mouth 2 times daily Reasons: High Blood Pressure Disorder * lisinopril (Prinivil; Zestril) 10 MG tablet Take 1 (one) tablet by mouth once daily Reasons: High Blood Pressure Disorder * aspirin EC (Ecotrin) 81 MG tablet Take 1 (one) tablet by mouth once * predniSONE (Deltasone) 5 MG tablet(Started 05/23/2022) Take 1 (one) tablet by mouth once daily * levothyroxine (Synthroid) 100 MCG tablet(Started 06/20/2021) Take 1 (one) tablet by mouth once daily * cyanocobalamin 100 MCG tablet Take 1 (one) tablet by mouth once daily * Cholecalciferol 50 MCG (2000 UT)(Started 05/15/2022) Take 1 (one) tablet by mouth once daily * biotin 2.5 MG capsule Take 1 (one) capsule by mouth once daily * acyclovir (Zovirax) 200 MG capsule(Started 05/16/2022) Take 1 (one) capsule by mouth 2 times daily * trimethoprim (Trimpex) 100 MG tablet(Started 07/03/2021) Take 0.5 (one-half) tablet by mouth at bedtime * HYDROcodone-acetaminophen ([place]) 5-325 MG tablet(Started 08/05/2022) Take 1 (one) tablet by mouth every 6 hours as needed for Pain * docusate sodium (Colace) 100 MG capsule(Started 08/05/2022) Take 1 (one) capsule by mouth 2 times daily Social History Tobacco Use Types Packs/Day Years [...] Comments Blood Pressure 128/74 08/05/2022 2:00 PM OPERATIONS MANAGER/COORDINATOR Pulse 94 08/05/2022 1:30 PM OPERATIONS MANAGER/COORDINATOR Temperature 36.3 ??C (97.3 ??F) 08/05/2022 2:00 PM CS T Respiratory Rate 17 08/05/2022 12:15 PM OPERATIONS MANAGER/COORDINATOR Oxygen Saturation 95% 08/05/2022 1:50 PM OPERATIONS MANAGER/COORDINATOR Inhaled Oxygen Concentration - - Weight 56.7 kg (125 lb) 08/05/2022 8:55 AM OPERATIONS MANAGER/COORDINATOR Height 158.8 cm (5' 2.5 ) 08/05/2022 8:55 AM OPERATIONS MANAGER/COORDINATOR Body Mass Index 22.5 08/05/2022 8:55 AM OPERATIONS MANAGER/COORDINATOR Procedures * FLAP TRANSFER ADJACENT TISSUE COMPLEX (ANY AREA)(Performed 08/05/2022) * DERMATOPATHOLOGY(Performed 08/28/2016) * DERMATOPATHOLOGY(Performed 07/17/2016) * CULTURE URINE(Performed 01/11/2014) * CULTURE URINE(Performed 12/10/2013) Results * PATHOLOGY TISSUE FOR DERMATOLOGY (08/28/2016 12:00 AM OPERATIONS MANAGER/COORDINATOR) Only the most recent of2 resultswithin the time period is included. 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 Check margins. Previous Bx: [id number]. GROSS DESCRIPTION: Received is one formalin filled container labeled with the patients name and designated right nasolabial. The specimen consists of a [id number] excision of skin. The margin is inked green. The specimen is bisected lengthwise and submitted in 1 cassette. Jar 0. MICROSCOPIC DESCRIPTION: Within the dermis there are aggregates of basaloid cells with a high nuclear to cytoplasmic ratio and peripheral palisading. This lesion is not present at the sampled margin of the specimen. There are fibroblasts and collagen bundles oriented parallel to the skin surface with elongated blood vessels, some of which are oriented perpendicular to the skin surface. Electronically signed out by Vanessa Ontiveros M.D. 09/01/2016 11:04:07AM [facility] Comment: Performed at: Dermatopathology Laboratory [facility] - Department of Dermatology [address] [place] [address] 5th [place] [address] Phone number: [phone] FAX: [phone] 08/28/2016 08/29/2016 Garth Ch MD LAB - PATHOLOGY/CYTO LOGY ORDERABLES [facility] [address] [place] [address]. 5th Floor Lab [address] [phone] * (ABNORMAL) CULTURE URINE (01/11/2014 12:00 PM CDT) Only the most recent of2 resultswithin the time period is included. Culture Urine ESCHERICHIA COLI(A) [facility] Comment:Greater than 1,000,0 00 CFU/ML Escherichia Coli Urine specimen (specimen) URINE SPECIMEN OBTAINED BY CLEAN CATCH PROCEDURE / Unknown 01/11/2014 12:00 PM CDT 01/12/2014 5:31 PM CDT Narrative [facility] - 01/15/2014 1:01 PM CDT AndersonSpecimen#[id number] [place] Loc/Rm/Bed: NONPATLAB// CLN CATCH U FAX TO DR FREEDMAN [phone] Organism Antibiotic Method Susceptibility Escherichia coli Amikacin SUSCEPTIBILITY <=2: Sensitive Escherichia coli Ampicillin SUSCEPTIBILITY 16: Intermediate Escherichia coli Ampicillin-sulbactam SUSCEPTIBILITY 4: Sensitive Escherichia coli Cefazolin SUSCEPTIBILITY <=4: Sensitive Escherichia coli Cefepime SUSCEPTIBILITY <=1: Sensitive Escherichia coli Ceftazidime SUSCEPTIBILITY <=1: Sensitive Escherichia coli Ceftriaxone SUSCEPTIBILITY <=1: Sensitive Escherichia coli Gentamicin SUSCEPTIBILITY <=1: Sensitive Escherichia coli Imipenem SUSCEPTIBILITY <=0.25: Sensitive Escherichia coli Levofloxacin SUSCEPTIBILITY <=0.12: Sensitive Escherichia coli Nitrofurantoin SUSCEPTIBILITY 32: Sensitive Escherichia coli Piperacillin-tazobactam SUSCEPTIBILIT Y <=4: Sensitive Escherichia coli Tobramycin SUSCEPTIBILITY <=1: Sensitive Escherichia coli Trimethoprim-sulfamethoxazole SUSCEPT IBILITY <=20: Sensitive Escherichia coli Extended-Spectrum Beta-Lactamase SUSC EPTIBILITY Neg: - Historical Provider MD LAB - MICROBIOLOG Y ORDERABLES [facility] [address] [phone] Care Teams Guzzler Builder Relationship Specialty Start Date End Date Fadi Clemons DO [address] [place] [address] PCP - General Family Medicine 08/05/22
--- OUTSIDE RECORDS SUMMARY | 2024-06-27 01:50 | XMS_ITS | Encounter Summary ---
Author Organization [facility] Healthcare Address [address] [place] [address] Care Team Providers Care Harness Fitter Name Role Phone Regina Contreras RN Unavailable [phone] Charly Biggs MD Unavailable [phone] Fadi Clemons DO Primary Care Provider [phone] Encounter Details Date Type Department Care Team (Late st Contact Info) Description 05/26/2024 Telephone [facility] and [facility] Transplant Kidney [address] [facility] [address] [phone] [place] [address] Regina Contreras, DEREK Social History Tobacco Use Types Packs/Day Years Used Date Smoking Tobacco: Never Smokeless Tobacco: Never Alcohol Use Standard Drinks/Week Comments No 0 (1 standard drink = 0.6 oz pur e alcohol) AUDIT-C Answer Date Recorded Q1: How often do you have a drink containing alcohol? Never 01/09/2023 Q2: How many drinks containi ng alcohol do you have on a typical day when you are drinking? Patient does not drink Q3: How often do you have si x or more drinks on one occasion? Never 01/09/2023 PHQ-2 Answer Date Recorded PHQ-2 Total Score 0 07/16/2023 Personal Safety Answer Date Recorded Have you ever been in or are you currently in a harmful physical or emotional relationship or is someone making you feel afraid or unsafe? Denies 07/16/2023 Comments No Sex and Gender Information Value Date Recorded Sex Assigned at Not on file Legal Sex 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 MOTOR BRAKEMAN Gender Identity Not on file Sexual Orientation Not on file documented as of this encounter Miscellaneous Notes * Telephone Encounter - Galina Sanchez - 05/27/2024 8:27 AM CST Updated SO, lab protocols, and faxed to [facility] [phone]. Lab results from 04/2024 will be sent via fax for processing, per Vika Butts in HIM at [facility]. Thank you R BRAKEMAN * Telephone Encounter - Regina Contreras RN - 05/26/2024 10:[address] Riya Mares requested me to call pt to discuss what meds she can take for a cold. Called pt todiscuss. Went through the list with her. Please reach out to [facility] for her labs from 2 weeks ago. Pt would like her orders updated for [facility] instead of [facility]. Thank you! R BRAKEMAN R BRAKEMAN documented in this encounter Plan of Treatment Not on file documented as of this encounter Visit Diagnoses Not on filedocumented in this encounter Care Teams Harness Fitter Relationship Specialty Start Date End Date Fadi Clemons DO [address] [address] PCP - General Family Medicine 11/03/22 Regina Contreras, RN Etched Circuit Processor 12/07/19 Charly Biggs MD [address] [address] Consulting Physician Internal Medicine 03/28/20 documented as of this encounter
--- OUTSIDE RECORDS SUMMARY | 2024-06-27 01:50 | XMS_ITS | Encounter Summary ---
Author Organization [facility] Healthcare Address [address] [place] [address] Care Team Providers Care Accounting Auditor Name Role Phone Regina Contrears RN Unavailable [phone] Charly Biggs MD Unavailable [phone] Fadi Clemons DO Primary Care Provider [phone] Encounter Details Date Type Department Care Team (Late st Contact Info) Description 05/22/2023 Telephone [facility] Transplant Kidney [address] [facility] [address] [phone] [place] [address] Regina Contreras, RN Social History Tobacco Use Types Packs/Day Years [...] more drinks on one occasion? Never 01/09/2023 Comments No Sex and Gender Information Value Date Recorded Sex Assigned at Not on file Legal Sex 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 LIQUEFACTION SUPERVISOR Gender Identity Not on file Sexual Orientation Not on file documented as of this encounter Ordered Prescriptions Prescription Sig Dispense Quantity Refills Last Filled Start Date End Date tacrolimus 0.5 mg immediate-release capsuleIndications :Kidney replaced by transplant Take 1 capsule (0.5 mg total) by mouth nightly 30 capsule 11 05/25/2023 tacrolimus 1 mg immediate-release capsuleIndications :Kidney replaced by transplant Take 1 capsule (1 mg total) by mouth every morning 30 capsule 11 05/25/2023 ciprofloxacin (Cipro) 500 mg tablet Take 1 tablet (500 mg total) by mouth daily for 7 days 7 tablet 05/25/2023 acyclovir (ZOVIRAX) 400 mg tablet Take 2 tablets (800 mg total) by mouth every 8 (eight) hours for 10 days 60 tablet 05/25/2023 3 documented in this encounter Miscellaneous Notes * Telephone Encounter - Regina Contreras RN - 05/22/2023 11:47 AM LIQUEFACTION SUPERVISOR Noted UA positive. Discussed with Dr. Hawkins who would like to wait for UC since pt was having no symptoms and is allergic to many abx. Will F/U on culture once resulted. Pt also having labs drawn today at local lab. Will F/U on this to determine treatment plan for ongoing Shingles. Dr. Hawkins: Acyclovir 800mg q8 hours for 10 days. For the UA, If she is having symptoms or very worried we can certainly treat. I've had a couple of tendon ruptures with cipro in elderly folk so if she's feeling perfectly fine otherwise I'm also ok holding off, but I've got a feeling she'll want something. thanks Cipro 500mg daily for 7 days. Decrease tacro to 1mg in am and 0.5mg nightly. Elida Contreras RN: Called pt to discuss. Is having burning on urination. Will send scripts to [facility]. Pt verbalizedunderstanding about meds. 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 documented in this encounter Discontinued Medications Medication Sig Discontinue Reason Start Date End Da te tacrolimus (PROGRAF) 1 mg immediate-release capsuleIndications:Billy y replaced by transplant Take 1 capsule (1 mg total) by mouth 2 (two) times a day 05/27/2022 05/25/2023 documented as of this encounter Care Teams Accounting Auditor Relationship Specialty Start Date End Date Fadi Clemons DO [address] [address] PCP - General Family Medicine 11/03/22 Regina Contreras, RN Biological Sciences Professor 12/07/19 Charly Biggs MD [address] [address] Consulting Physician Internal Medicine 03/28/20 documented as of this encounter
--- OUTSIDE RECORDS SUMMARY | 2024-06-27 01:50 | XMS_ITS | Encounter Summary ---
Author Organization [facility] Healthcare Address [address] [place] [address] Care Team Providers Care Structural Steel Painter Name Role Phone Regina Contreras RN Unavailable [phone] Charly Biggs MD Unavailable [phone] Fadi Clemons DO Primary Care Provider [phone] Encounter Details Date Type Department Care Team (Latest Contact Info) Description 05/21/2023 1:33 PM CLINICAL ALLERGIST - 05/21/2023 11:59 PM CLINICAL ALLERGIST Hospital Encounter [address] [address] Encounter for aftercare following kidney transplant Discharge Disposition: Discharge to home or self care Social History Tobacco Use Types Packs/Day Years [...] on file Legal Sex 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 CLINICAL ALLERGIST Gender Identity Not on file Sexual Orientation Not on file documented as of this encounter Medications at Time of Discharge cholecalciferol (VITAMIN D-3) 2000 unit tablet Take 1 tablet (2,000 Units total) by mouth daily 30 tablet 11 05/15/2022 cyanocobalamin (Vitamin B-12) 100 mcg tablet Take 1 tablet (100 mcg total) by mouth daily acyclovir (ZOVIRAX) 200 mg capsule Take 1 capsule (200 mg total) by mouth 2 (two) times a day 60 capsule 11 04/10/2023 4 sodium bicarbonate 650 mg tablet Take 1 tablet (650 mg total) by mouth daily 30 tablet 11 12/26/2022 4 biotin 2,500 mcg capsule Take 1 capsule by mouth daily 4 Eliquis 5 mg tablet Take 1 tablet (5 mg total) by mouth 2 (two) times a day 12/23/2022 4 levothyroxine (SYNTHROID) 100 mcg tablet Take 1 tablet (100 mcg total) by mouth rn call center before breakfast 30 tablet 11 10/17/2022 4 lisinopriL (PRINIVIL,ZESTRIL ) 10 mg tablet TAKE 1 TABLET(10 MG) BY MOUTH DAILY 90 tablet 3 05/07/2023 4 metoprolol tartrate (LOPRESSOR) 75 mg tablet immediate release tablet TAKE 1 TABLET(75 MG) BY MOUTH TWICE DAILY 180 tablet 3 09/25/2022 4 pravastatin (PRAVACHOL) 20 mg tablet Take 1 tablet (20 mg total) by mouth nightly 12/16/2016 4 predniSONE (DELTASONE) 5 mg tabletIndications :Kidney replaced by transplant Take 1 tablet (5 mg) by mouth daily 30 tablet 11 05/23/2022 4 tacrolimus (PROGRAF) 1 mg immediate-release capsuleIndication s:Kidney replaced by transplant Take 1 capsule (1 mg total) by mouth 2 (two) times a day 60 capsule 11 05/27/2022 3 trimethoprim (TRIMPEX) 100 mg tablet Take 0.5 tablets (50 mg total) by mouth nightly 07/03/2021 4 documented as of this encounter Discharge Disposition Disposition Code Departure Means Destination Discharge to home or self care documented in this encounter Plan of Treatment Not on file documented as of this encounter Procedures Procedure Name Priority Date/Time Associated Diagnosis Comments URINALYSIS AND REFLEX TO MICROSCOPIC AND CULTURE Routine 05/21/2023 11:35 AM CLINICAL ALLERGIST Encounter for aftercare following kidney transplant URINALYSIS, MICROSCOPIC ONLY Routine 05/21/2023 11:35 AM CLINICAL ALLERGIST Encounter for aftercare following kidney transplant URINE CULTURE Routine 05/21/2023 11:35 AM CLINICAL ALLERGIST documented in this encounter Results * (ABNORMAL) Urine culture Urine (05/21/2023 11:35 AM CLINICAL ALLERGIST) Report Final Report: Greater than or equal to 100,000 colonies/mL of Enterobacter cloacae complex (.) [facility] Organism ENTEROBACTER CLOACAE COMPLEX [facility] Urine 05/21/2023 11:3 5 AM CLINICAL ALLERGIST 05/21/2023 4:18 PM CLINICAL ALLERGIST Narrative [facility] - 05/23/2023 10:03 AM CLINICAL ALLERGIST Urine culture reflexed based upon urinalysis results. Testing performed by [facility] ([phone]) Organism Antibiotic Method Susceptibility Enterobacter cloacae complex Ampicillin INTERPRETATION Resistant Enterobacter cloacae complex Cefazolin INTERPRETATION Resistant Enterobacter cloacae complex Nitrofurantoin INTERPRETATION Intermediate Enterobacter cloacae complex Gentamicin INTERPRETATION Susceptible Enterobacter cloacae complex Trimethoprim with Sulfamethoxazole INTERPRETATION Resistant Enterobacter cloacae complex Meropenem INTERPRETATION Susceptible Enterobacter cloacae complex Cefepime INTERPRETATION Susceptible Enterobacter cloacae complex Ciprofloxacin INTERPRETATION Susceptible Enterobacter cloacae complex Ceftazidime INTERPRETATION Resistant Enterobacter cloacae complex Ceftriaxone INTERPRETATION Resistant Enterobacter cloacae complex Piperacillin/Tazobactam INTERPRETATION Resistant us Nixon Hawkins MD LAB MICROBIOLOGY - GENERAL O RDERABLES Final Result [facility] Department [place] [address] * (ABNORMAL) Urinalysis, microscopic only (05/21/2023 11:35 AM CLINICAL ALLERGIST) WBC, ur >50(A) 0 - 5 /HPF [facility] RBC, ur 21-50(A) 0 - 2 /HPF [facility] Epithelial cells, squamous, ur 1-5 0 - 5 /HPF [facility] Bacteria, ur 4+(A) [facility] Mucous, ur Present(A) [facility] Culture Reflex Comment Reflex to urine culture will be performed. [facility] Urine 05/21/2023 11:3 5 AM CLINICAL ALLERGIST 05/21/2023 2:30 PM CLINICAL ALLERGIST us Nixon Hawkins MD LAB URINE ORDERABLES Final R esult [facility] Department [place] [address] * (ABNORMAL) Urinalysis reflex to microscopic and culture Urine (05/21/2023 11:35 AM CLINICAL ALLERGIST) Color, ur Yellow Yellow [facility] Clarity, ur Turbid(A) Clear [facility] Specific gravity, ur 1.013 1.003 - 1.030 [facility] pH, urine 6.0 [facility] Comment: Interpretive Data ? Urine pH is affected by diet, medications, systemic acid-base disturbances, and renal tubular function. ??pH may affect urinary stone formation. ??For example, urine pH below 6.0 may help reduce the tendency for calcium phosphate stones and pH greater than 6.0 may reduce the tendency for uric acid stone formation. Source: [facility] Phytel Current Interpretive Data was last revised on 2017 Protein, ur ql 1+(A) Negative [facility] Glucose, ur ql Negative Negative [facility] Ketones, ur Negative Negative [facility] Bilirubin, ur Negative Negative [facility] Blood, ur 1+(A) Negative [facility] Urobilinogen, ur <2.0 <2.0 mg/dL [facility] Nitrite, ur Negative Negative [facility] Leukocyte esterase, ur 3+(A) Negative [facility] UA reflex comment Reflex to microscopic UA will be performed. [facility] Urine 05/21/2023 11:3 5 AM CLINICAL ALLERGIST 05/21/2023 2:30 PM CLINICAL ALLERGIST Nixon Hawkins MD LAB MICROBIOLOGY - GENERAL O RDERABLES Final Result [facility] Department [place] [address] documented in this encounter Visit Diagnoses Diagnosis Encounter for aftercare following kidney transplant documented in this encounter Care Teams Structural Steel Painter Relationship Specialty Start Date End Date Fadi Clemons DO [address] [address] PCP - General Family Medicine 11/03/22 Regina Contreras, DEREK Network Contract Manager 12/07/19 Charly Biggs MD [address] [address] Consulting Physician Internal Medicine 03/28/20 documented as of this encounter
--- OUTSIDE RECORDS SUMMARY | 2024-06-27 01:50 | XMS_ITS | Encounter Summary ---
Author Organization [facility] Healthcare Address [address] [place] [address] Care Team Providers Care Lead Qa Analyst Name Role Phone Regina Contreras RN Unavailable [phone] Charly Biggs MD Unavailable [phone] Fadi Clemons DO Primary Care Provider [phone] Encounter Details Date Type Department Care Team (Late st Contact Info) Description 05/26/2023 Telephone [facility] Transplant Kidney [address] [facility] [phone] [place] [address] Hernando Davila Social History Tobacco Use Types Packs/Day Years [...] on file 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 Please call to discuss. Is asking if form was rec'd. Elida Contreras RN: Called back to discuss, did not receive CMN form. They will call Medicare dept and ask them to sendit. I will look out for this. E BUILDER E BUILDER documented in this encounter Plan of Treatment Not on file documented as of this encounter Visit Diagnoses Not on filedocumented in this encounter Care Teams Lead Qa Analyst Relationship Specialty Start Date End Date Fadi Clemons DO [address] [address] PCP - General Family Medicine 11/03/22 Regina Contreras, DEREK Meat Inspector 12/07/19 Charly Biggs MD [address] [address] Consulting Physician Internal Medicine 03/28/20 documented as of this encounter
--- OUTSIDE RECORDS SUMMARY | 2024-06-27 01:50 | XMS_ITS | Encounter Summary ---
Author Organization [facility] Address [address] [place] [address] Phone Care Team Providers Care Getter Operator Name Role Phone Regina Contreras RN Unavailable [phone] Charly Biggs MD Unavailable [phone] Fadi Clemons DO Primary Care Provider [phone] Encounter Details Date Type Department Care Team (Late st Contact Info) Description 02/20/2023 Telephone 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 Gender Identity Not on file Sexual Orientation Not on file documented as of this encounter Miscellaneous Notes * Telephone Encounter - Galina Guevara RMA - 02/20/2023 2:01 PM CDT Spoke with Patient - patient states that she already was seen early and did not need to see SS documented in this encounter Plan of Treatment Not on file documented as of this encounter Visit Diagnoses Not on filedocumented in this encounter Care Teams Getter Operator Relationship Specialty Start Date End Date Fadi Clemons DO [address] [address] PCP - General Family Medicine 11/03/22 Regina Contreras RN Supervisor Concrete Block Plant 12/07/19 Charly Biggs MD [address] [address] Consulting Physician Internal Medicine 03/28/20 documented as of this encounter
--- OUTSIDE RECORDS SUMMARY | 2024-06-27 01:50 | XMS_ITS | Encounter Summary ---
Author Organization [facility] Address [address] [place] [address] Care Team Providers Care Lathe Operator Contact Lens Name Role Phone Fadi Clemons DO Primary Care Provider [phone] Reason for Visit * Auth/Cert (Routine) Specialty Diagnoses / Procedures Referred By Contac t Referred To Contact Procedures PROCEDURE NOT LISTED Referral ID Status Reason Start Date Expiration Date Visits Re quested Visits Authorized [id number] 1 1 Encounter Details Date Type Department Care Team (Late st Contact Info) Description 08/05/2022 9:21 AM DIVERSITY MANAGER Anesthesia Event [facility] - [facility] Op [address] [place] [address] [place] [address] [place] [address] Angelika Hope, METEOROLOGICAL TECHNICIAN-DIE FITTER [address] [place] [address] Anesthesia Record Procedure Summary Procedure Name Responsible Anesthesiologist Anesthesia Start Time Anesthesia Stop Time WOUND BED PREPARATION OF LEFT UPPER LIP, ADJACENT TISSUE TRANSFER OF LIP (Left: Mouth) Keshawn Jackson DO 08/05/22 0921 08/05/22 1212 Events Date Time Event Comment 08/05/2022 0909 0921 An Start 0921 An Start Data 0928 PT Reassessment 0928 An Induction 0928 An Intubation 0936 Timeout Anesthesia part icipated in timeout at the time documented in the record by nursing. 0950 Local Infiltration by Surgeo n 1021 Local Infiltration by Surgeo n 1156 An Emergence 1205 Extubation 1205 Electnc Sig This record is electronically signed by the providers listed under staff. 1205 PACU Orders Reviewed 1205 an stop data 1205 Handoff 1205 ANPTO2 1212 An Stop Meds Name Total fentaNYL 100 mcg/2mL injection 100 mcg lidocaine PF 1% injection (10 mg/mL) 50 mg propofol 200mg/20mL injection 80 mg rocuronium 10 mg/mL injection 40 mg ondansetron 2 mg/mL injection 8 mg dexamethasone 4 mg/mL injection 8 mg ceFAZolin (Ancef) 2,000 mg in 50 ml IVPB 2 g famotidine (Pepcid) injection 20 mg labetalol injection 5 mg/mL 10 mg sugammadex injection 200 mg/2 mL 200 mg lactated ringers infusion 100 mL 0.9% NaCl infusion 0 mL * Agents Name Insp. N2O Exp. Sevoflurane Exp. N2O O2 Air Insp. Sevoflurane N2O * Blood No blood administrations on file. Lines, Drains, and Airways Type Details Placement Removal Lower extremity ulcer wound Anterior, Left; [place]; 08/05/22; 203408/05/22 0859 by 08/05/222034 by Generic, Auto Release Peripheral IV Date: 08/05/22; Time : 0902; Orientation: Left, Posterior; Placed By: Dr Jackson 08/05/22 09 by Joycelyn Han, DEREK 08/05/22 143 by Denny Faustin, DEREK ETT Date: 08/05/22; Time : 0943; Placed By: Nikia Kramer CRNA; Vent: easy mask; Induction: Standard IV; Blade Type: Video; Blade Size: 3; Laryngoscopy View: Grade 1 (full cords); Tube: Marielle tube; Placement: Oral; Tube Type: Cuffed-inflated; Tube Size(mm): 6.5 MM; Depth of Insertion: 22 CM; Measured From: lips; Attempts: 1; Cuff Infated: Air; Cuff Vol(mL): 8 mL; Verified By: Direct visualization, Bilateral breath sounds, Chest Auscultation 08/05/22 0943 by Nikia Kramer APRN-CRNA 08/05/22 1205 by Nikia Kramer APRN-CRNA Procedural Site (Incision) 08/05/22; 0955; Left, Upper; Other (Comments) (lip); 08/05/22; 203408/05/22 0955 by Millie Flores RN 08/05/222034 by [place], Auto Release documented in this encounter Social History Tobacco Use Types Packs/Day Years Used Date Smoking Tobacco: Never Smokeless Tobacco: Never Alcohol Use Standard Drinks/Week Comments Never 0 (1 standard drink = 0.6 oz pur e alcohol) Sex and Gender Information Value Date Recorded Sex Assigned at Not on file Gender Identity Not on file Sexual Orientation Not on file documented as of this encounter Progress Notes * WilliamsNikia graham, METEOROLOGICAL TECHNICIAN-DIE FITTER - 08/05/2022 12:58 PM CST ANESTHESIA POSTOP EVALUATION NOTE Procedure: ADJACENT TISSUE TRANSFER OR REARRANGEMENT LIP 10.1 SQ CM- 30.0 SQ CM, ADJACENT TISSUE TRANSFER TO REARRANGEMENT L IP 30.1 SQ CM- 60.0 SQ CM, WOUND BED PREPARATION EXCISION OF LIP, FULL THICKNESS, RECONSTRUCTION WITH LOCAL FLAP (Left: Mouth) Juliet Dunlap is a 87 year old female Patient Vitals for the past 6 hrs: BP Temp Pulse Resp SpO2 Pain Rating Score #1 Pain Scale/Observation 08/05/22 0855 162/77 97.8 ??F (36.6 ??C) 65 16 99 % 3 N 08/05/22 1210 112/65 97.1 ??F (36.2 ??C) 79 19 97 % 0 N;B 08/05/22 1215 138/85 -- 94 17 (!) 89 % -- -- Anesthesia Type: general ETT * No Diagnosis Codes entered * Mental Status: awake, alert, oriented, sufficiently recovered from acute administration of anesthesia to participate in the evaluation, neurologic status has returned to preoperative level and neurologic status has returned to expected level of consciousness Neuro Status: No numbness, tingling or visual disturbances Respiratory Function: natural Cardiac Function: stable Postop Pain: adequate Postop Hydration: adequate Postop Nausea: none Assessment: no apparent anesthetic complications, patient tolerated procedure well and no evidence of recall Patient Disposition: Release from Anesthesia Care NOTABLE EVENTS: No notable events documented. RSITY MANAGER * Keshawn Jackson DO - 08/05/2022 9:08 AM CST ANESTHESIA PREOPERATIVE EVALUATION NOTE Procedure: ADJACENT TISSUE TRANSFER OR REARRANGEMENT LIP 10.1 SQ CM- 30.0 SQ CM, ADJACENT TISSUE TRANSFER TO REARRANGEMENT L IP 30.1 SQ CM- 60.0 SQ CM, WOUND BED PREPARATION EXCISION OF LIP, FULL THICKNESS, RECONSTRUCTION WITH LOCAL FLAP (Left) Vitals: Patient Vitals for the past 6 hrs: BP Temp Pulse Resp SpO2 Pain Rating Score #1 08/05/22 0855 162/77 97.8 ??F (36.6 ??C) 65 16 99 % 3 LMP: No LMP recorded. OB Status: unknown ANESTHESIA PRE-EVALUATION NOTE Physical Exam: Orientation X3 Airway/Mallampati Score: III Mouth Opening Distance: 2.5 fingerwidths Neck ROM: full TM Distance: > 3 FB Teeth: normal Heart: normal - S1 S2 Lungs: clear to ausculation bilaterally Physical Exam Additional Comments: S/p Kidney transplant ANESTHESIA PLAN ASA Score: 3 NPO Status: No solids since midnight Anesthesia Plan: general ETT Planned Induction: intravenous Planned Postop Destination: PACU Anesthetic plan was discussed with: patient Anesthetic Plan discussion was: Consented The patient's procedural Anesthetic Plan was discussed with the DIE FITTER. BMI, Height, Weight Tobacco History Estimated body mass index is 22.5 kg/m?? as calculated from the following: Height as of this encounter: 1.588 m (5' 2.5 ). Weight as of this encounter: 56.7 kg (125 lb). Social History Tobacco Use Smoking Status Never Smokeless Tobacco Never Alcohol History Drug History Social History Substance and Sexual Activity Alcohol Use Never Social History Substance and Sexual Activity Drug Use Never Outpatient Medications: Inpatient Medications: Outpatient Medications Marked as Taking for the 08/05/22 encounter (Hospital Encounter) Medication Sig Last Dose ??? acyclovir Take 1 (one) capsule by mouth 2 times daily 08/04/2022 ??? aspirin EC Take 1 (one) tablet by mouth once 08/03/2022 ??? biotin Take 1 (one) capsule by mouth once daily 08/04/2022 ??? Cholecalciferol Take 1 (one) tablet by mouth once daily 08/04/2022 ??? cyanocobalamin Take 1 (one) tablet by mouth once daily 08/04/2022 ??? levothyroxine Take 1 (one) tablet by mouth once daily 08/04/2022 ??? lisinopril Take 1 (one) tablet by mouth once daily Reasons: High Blood Pressure Disorder 08/04/2022 ??? metoprolol tartrate IR Take 1.5 (one and one-half) tablets by mouth 2 times daily Reasons: HighBlood Pressure Disorder 08/05/2022 at 530 ??? predniSONE Take 1 (one) tablet by mouth once daily 08/04/2022 ??? sodium bicarbonate Take 1 (one) tablet by mouth once daily 08/04/2022 ??? tacrolimus Take 1 (one) capsule by mouth 2 times daily 08/04/2022 ??? trimethoprim Take 0.5 (one-half) tablet by mouth at bedtime 08/03/2022 Current Facility-Administered Medications Medication Dose Last Admin ??? 0.9% NaCl IV ??? ceFAZolin 2 g ??? lactated ringers ??? lidocaine 0.2 mL Allergies: Allergies Allergen Reactions ??? Cephalexin Other and Rash Trouble with bladder ??? Tetracyclines Rash ??? Levofloxacin Unknown ??? Pedi-Pre Tape [place] [Wound Dressing Adhesive] Rash ??? Ciprofloxacin Unknown Relevant Problems No relevant active problems Problem List: There are no problems to display for this patient. Medical History: Past Medical History: Diagnosis Date ??? Chronic kidney disease ??? Disorder of thyroid ??? Kidney transplant recipient 2012 Surgical History: Past Surgical History: Procedure Laterality Date ??? Kidney Transplant Bilateral 2012 ??? 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 unknown OB History No obstetric history on file. Covid Vaccine: Lab Results: No results found for requested labs within last 120 days. No results found for requested labs within last 120 days. RSITY MANAGER documented in this encounter Miscellaneous Notes * Anesthesia Transfer of Care - Angelika Hope APRN-FLAKITA - 08/05/2022 12:12 PM CST ANESTHESIA TRANSFER OF CARE NOTE Today's Date: 08/05/2022 Date of : 1935 Patient: Juliet Dunlap Procedure(s): ADJACENT TISSUE TRANSFER OR REARRANGEMENT LIP 10.1 SQ CM- 30.0 SQ CM, ADJACENT TISSUE TRANSFER TO REARRANGEMENT L IP 30.1 SQ CM- 60.0 SQ CM, WOUND BED PREPARATION EXCISION OF LIP, FULL THICKNESS, RECONSTRUCTION WITH LOCAL FLAP Surgeon(s): Primary: Lety Rogers MD Preop Diagnosis: * No Diagnosis Codes entered * Pre-op Meds (From admission, onward) Start Stop Status Route Frequency Ordered 08/05/22 0845 0.9% NaCl infusion -- Verified IV PRE-OP CONTINUOUS 08/05/22 0837 08/05/22 0936 0.9% NaCl infusion -- Sent IV CONTINUOUS PRN 08/05/22 0947 08/05/22 1023 0.9% nacl irrigation solution 08/05 1023 Completed CONTINUOUS PRN 08/05/22 1023 08/05/22 0731 ceFAZolin (Ancef) 2,000 mg in 50 ml IVPB -- Dispensed IV PRE-OP MULTIPLE 08/05/22 0731 08/05/22 0928 dexAMETHasone (Decadron) injection -- Sent IV PRN 08/05/22 0946 08/05/22 0953 famotidine (Pepcid) injection -- Sent IV PRN 08/05/22 0954 08/05/22 0928 fentaNYL (PF) (Sublimaze) injection -- Sent IV PRN 08/05/22 0946 08/05/22 1206 fentaNYL (PF) (Sublimaze) injection 25 mcg -- Verified IV EVERY 10 MIN PRN 08/05/22 1206 08/05/22 1206 fentaNYL (PF) (Sublimaze) injection 37.5 mcg -- Verified IV EVERY 10 MIN PRN 08/05/22 1206 08/05/22 1047 labetalol (Normodyne; Trandate) injection -- Sent IV PRN 08/05/22 1047 08/05/22 0845 lactated ringers infusion -- Verified IV PRE-OP CONTINUOUS 08/05/22 0837 08/05/22 0836 lidocaine (Xylocaine) 1 % injection 0.2 mL -- Verified INFILTRATION PRE-OP MULTIPLE 08/05/22 0837 08/05/22 0928 lidocaine PF (Xylocaine MPF) 1 % injection -- Sent IV PRN 08/05/22 0946 08/05/22 1206 naloxone (Narcan) injection 0.04 mg -- Verified IV POST-OP MULTIPLE 08/05/22 1206 08/05/22 0953 ondansetron (Zofran) injection -- Sent IV PRN 08/05/22 0953 08/05/22 0928 propofol (Diprivan) injection -- Sent IV PRN 08/05/22 0946 08/05/22 0928 rocuronium (Zemuron) injection -- Sent IV PRN 08/05/22 0946 08/05/22 1157 sugammadex (Bridion) injection -- Sent IV PRN 08/05/22 1157 * No Diagnosis Codes entered * . Allergies Allergen Reactions ??? Cephalexin Other and Rash Trouble with bladder ??? Tetracyclines Rash ??? Levofloxacin Unknown ??? Pedi-Pre Tape [place] [Wound Dressing Adhesive] Rash ??? Ciprofloxacin Unknown Vitals: No data found. Lines, Drains, and Airways Type Details Placement Removal Peripheral IV Date: 08/05/22; Time: 901; Orientation: Left, Posterior; Location: Hand; Placed By: Dr Jackson; Gauge: 22 Gauge 08/05/22901 by Joycelyn Han RN ETT Date: 08/05/22; Time: 942; Placed By: Nikia Kramer CRNA; Vent: easy mask; Induction: Standard IV; Blade Type: Video; Blade Size: 3; Laryngoscopy View: Grade 1 (full cords); Tube: Marielle tube; Placement: Oral; Tube Type: Cuffed- inflated; Tube Size(mm): 6.5 MM; Depth of Insertion: 22 CM; MeasuredFrom: lips; Attempts: 1; Cuff Infated: Air; Cuff Vol(mL): 8 mL; Verified By: Direct visualization, Bilateral breath sounds, Chest Auscultation 08/05/22942 by Nikia Kramer APRN-CRNA 08/05/221204 by Nikia Kramer APRN-CRNA Intraprocedure I/O Totals Intake lactated ringers infusion 100.00 mL Total Intake 100 mL Patient Transfer Location: PACU Transport Airway: spontaneous respirations and supplemental O2 Complications: None Handoff Given? Yes Checklist or Protocol - The desouza handoff elements that must be included in the transfer of care checklist include: 1. Identification of patient. 2. Identification of responsible practitioner (PACU nurse or advanced practitioner). 3. Discussion of pertinent medical history. 4. Discussion of the surgical/procedure course (procedure, reason for surgery, procedure performed). 5. Intraoperative anesthetic management and issue/concerns. 6. Expectations/Plans for the early post-procedure period. 7. Opportunity for questions and acknowledgement of understanding of report from the receiving PACUteam. THOMPSON Chen RSITY MANAGER documented in this encounter Plan of Treatment Not on file documented as of this encounter Visit Diagnoses Not on filedocumented in this encounter Administered Medications Inactive Administered Medications - up to 3 most recent administrations Medication Order MAR Action Action Date Dose Rate Site 0.9% NaCl infusion Intravenous, CONTINUOUS PRN, Starting on Thu08/05/22 at 0936, Until Thu08/05/22 at 1212, Anesthesia Intra-op $ New Bag/Syringe 08/05/2022 9:36 AM DIVERSITY MANAGER ceFAZolin (Ancef) 2,000 mg in 50 ml IVPB 2,000 mg (2 g), at 100 mL/hr, Intravenous, PRE-OP MULTIPLE, Starting on Thu08/05/22 at 0731, Until Thu08/05/22 at 1535, Administer 30 minutes prior to surgical incision., Indication for anti-infective therapy: Surgical prophylaxis, Pre-op $ Given 08/05/2022 9:28 AM DIVERSITY MANAGER 2 g dexAMETHasone (Decadron) injection Intravenous, PRN, Starting on Thu08/05/22 at 0928, Until Thu08/05/22 at 1212, Anesthesia Intra-op $ Given 08/05/2022 9:28 AM DIVERSITY MANAGER 8 mg famotidine (Pepcid) injection Intravenous, PRN, Starting on Thu08/05/22 at 0953, Until Thu08/05/22 at 1212, Anesthesia Intra-op $ Given 08/05/2022 9:53 AM DIVERSITY MANAGER 20 mg fentaNYL (PF) (Sublimaze) injection Intravenous, PRN, Starting on Thu08/05/22 at 0928, Until Thu08/05/22 at 1212, Anesthesia Intra-op $ Given 08/05/2022 11:02 AM DIVERSITY MANAGER 25 mcg $ Given 08/05/2022 10:54 AM DIVERSITY MANAGER 25 mcg $ Given 08/05/2022 9:50 AM DIVERSITY MANAGER 25 mcg labetalol (Normodyne; Trandate) injection Intravenous, PRN, Starting on Thu08/05/22 at 1047, Until Thu08/05/22 at 1212, Anesthesia Intra-op $ Given 08/05/2022 11:16 AM DIVERSITY MANAGER 5 mg $ Given 08/05/2022 10:47 AM DIVERSITY MANAGER 5 mg lactated ringers infusion at 20 mL/hr, Intravenous, PRE-OP CONTINUOUS, Starting on Thu08/05/22 at 0845, Until Thu08/05/22 at 1535, Pre-op $ New Bag/Syringe 08/05/2022 9:21 AM DIVERSITY MANAGER lidocaine PF (Xylocaine MPF) 1 % injection Intravenous, PRN, Starting on Thu08/05/22 at 0928, Until Thu08/05/22 at 1212, Anesthesia Intra-op $ Given 08/05/2022 9:28 AM DIVERSITY MANAGER 50 mg ondansetron (Zofran) injection Intravenous, PRN, Starting on Thu08/05/22 at 0953, Until Thu08/05/22 at 1212, Anesthesia Intra-op $ Given 08/05/2022 11:57 AM DIVERSITY MANAGER 4 mg $ Given 08/05/2022 9:53 AM DIVERSITY MANAGER 4 mg propofol (Diprivan) injection Intravenous, PRN, Starting on Thu08/05/22 at 0928, Until Thu08/05/22 at 1212, Anesthesia Intra-op $ Given 08/05/2022 9:28 AM DIVERSITY MANAGER 80 mg rocuronium (Zemuron) injection Intravenous, PRN, Starting on Thu08/05/22 at 0928, Until Thu08/05/22 at 1212, Anesthesia Intra-op $ Given 08/05/2022 9:28 AM DIVERSITY MANAGER 40 mg sugammadex (Bridion) injection Intravenous, PRN, Starting on Thu08/05/22 at 1157, Until Thu08/05/22 at 1212, Anesthesia Intra-op $ Given 08/05/2022 11:57 AM DIVERSITY MANAGER 200 mg documented in this encounter Care Teams Lathe Operator Contact Lens Relationship Specialty Start Date End Date Fadi Clemons DO [address] [place] [address] PCP - General Family Medicine 08/05/22 documented as of this encounter
--- OUTSIDE RECORDS SUMMARY | 2024-06-27 01:50 | XMS_ITS | Encounter Summary ---
Author Organization [facility] Address [address] [place] [address] Phone Care Team Providers Care Process Engineer Name Role Phone Regina Contreras RN Unavailable [phone] Charly Biggs MD Unavailable [phone] Fadi Clemons DO Primary Care Provider [phone] Reason for Visit * Consultation (Routine) - Closed Specialty Diagnoses / Procedures Referred By Jairo t Referred To Contact Neurology Diagnoses Cerebrovascular accident (CVA), unspecified mechanism (HCC) Joann Garcia MD [address] [place] [address] Phone: tel: fax: [facility] [address] [facility] [address] [place] [phone] Phone: tel: fax: Referral ID Status Reason Start Date Expiration Date V isits Requested Visits Authorized [id number] Closed Specialty Services Required 07/18/2023 08/16/2024 1 1 Encounter Details Date Type Department Care Team (Late st Contact Info) Description 11/03/2023 9:30 AM CDT Office Visit [facility] [address] [facility] [address] [place] [phone] Adeline Colón MD [address] [place] [address] Late effect of stroke (Primary Dx); Hypertension, unspecified type; Lipid screening Social History Tobacco Use Types Packs/Day Years Used Date Smoking Tobacco: Never Smokeless Tobacco: Never Tobacco Cessation:Counseling Given: Not Answered Alcohol Use Standard Drinks/Week Comments No 0 [...] on file Legal Sex 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 [employer] Gender Identity Not on file Sexual Orientation Not on file documented as of this encounter Last Filed Vital Signs Vital Sign Reading Time Taken Comments Blood Pressure 157/86 11/03/2023 9:10 AM CDT Pulse 85 11/03/2023 9:10 AM CDT Temperature - - Respiratory Rate - - Oxygen Saturation - - Inhaled Oxygen Concentration - - Weight 56.7 kg (125 lb) 11/03/2023 9:10 AM CDT Height 157.5 cm (5' 2 ) 11/03/2023 9:10 AM CDT Body Mass Index 22.86 11/03/2023 9:10 AM CDT documented in this encounter Patient Instructions * Patient Instructions* Chi Akhtar MD - 11/03/2023 9:30 AM CDT We discussed the following plan: - Continue taking ASA 81 mg daily [with a full glass of water to minimize GI distress]. - Continue taking Lipitor daily. - Follow-up with register in chancery regarding the findings in the event monitor, heart rhythm, and blood pressure. - Follow-up with PCP and other specialists for management of comorbid conditions, including blood pressure (maintain BP normotensive with goal < 130/80 mmHg in accordance with AHA guidelines), dyslipidemia (maintain LDL-C < 70 mg/dl in accordance with AHA guidelines). - Exercise regularly (30 minutes three or more times per week), Minimize alcohol consumption, Eat healthy, Optimize weight, Learn how to cope with stress. - Call 911 immediately if any of these symptoms of stroke appear: Numbness or weakness in the face/arm/leg; Confusion or trouble speaking or understanding speech; Trouble seeing in one or both eyes; Trouble walking, dizziness, or problems with balance; severe headache with no known cause. - Feel free to contact our office with any questions or concerns. documented in this encounter Progress Notes * Chi Akhtar MD - 11/03/2023 9:30 AM CDT Images from the original note were not included. [facility] Patient Name: AMANDA MAKI Medical Record Number (MRN): [id number] Date of (): 1935 Encounter Date: 11/03/2023 Today, patient is accompanied by . Chief Complaint Amanda Maki is a 88 y.o. 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 Hx obtained via patient and (both reliable), and chart review. At baseline, patient is independent in ADLs/IADLs (does not need assistance with eating or getting dressed), ambulates without assistance, and has no baseline Neurologic deficits. Patient was LKN on Tuesday 07/11 in evening. On 07/12 upon awakening to go to bathroom she felt full body weakness and felt like her body going the opposite direction when she was trying to walk resulting in a fall and hurting her right hip. Her legs felt weak. She got up and stood, but continued to feelweakness then had another fall of similar occurrence later that day. She does not localize her weakness to one particular side. Denies lightheadedness, room spinning sensation. She has had falls in the past but they were from tripping over objects. She denies head strike. She reports she felt better the next day. She went to see her PCP. On 07/16 she woke up and finished eating breakfast with her when she suddenly had 10 minutes of difficulty speaking (words made no sense) but had no difficulty understanding her who was talking to her at the time. No other associated weakness or numbness or shaking at that time. They decided to go to [facility] and on the way had another episode lasting a few minutes. Denies history of stroke, seizures, heart attack. Reports family history of heart disease on father side but denies history of stroke, seizures, heart attack. Denies smoking, alcohol, drugs. She reports she used to be on Eliquis 5 BID until a few weeks prior to arrival when she was told tostop the Eliquis and restart taking Aspirin 81mg. Reports compliance with her medications. Upon arrival to [facility] ED, BP 164/82, BG 85. Initial NIHSS 1 (chronic asymmetric smile). Neurologic exam on presentation to [facility] significant for normal neurologic exam. HCT showed no acute hemorrhage. CTA demonstrated possible L M2 occlusion. Patient was a NOGO x2 due to no disabling deficits. Upon arrival to the floor, BP 181/78. NIHSS 2 (1 right facial droop, 1 right arm drift). Patient reports feeling back to baseline. She then reported right hand minor difficulty with fine hand movements. Workup was as the following: LDL 66, A1C 5.8, HCT/CTA showed left proximal M2 occlusion with [id number] cc perfusion defect (Tmax >4 seconds) within the left MCA territory in the frontal lobe measuring 14 mL. TTE revealed LA is markedly dilated. LV systolic function is normal without regional wall motion abnormalities. LVEF=71%. The mitral valve aparatusis thickened/calcified. No intrcardiac masses or thrombi were detected. The patient was started on atorvastatin 40 mg PO qHS. Additionally, the patient was given ASA 81 and Plavix 300 mg, and continued on aspirin 81 mg PO qD indefinitely andPlavix 75 mg PO qD x21 days for secondary prevention. The patient was discharged to home in Jul 18 with home health PT/OT. Interval History: This is the first post-hospital follow-up - Patient has been feeling tired since she had COVID infection in November 2022. Patient and denies speech issues, weakness, or any other neurological symptoms. - Patient denies any hospital admission since discharge. - Blood pressure is high in this encounter. Patient will contact her PCP regarding that. - Patient denies palpitations. Event monitor: Sinus Rhythm w/1st Degree AV Block The patient's monitoring period was 07/18/2023 - 07/20/2023. Patient mentions that she is following up with register in chancery, Dr. Mckeon. Last visit was 3 months ago. - Regarding the current medications for secondary stroke prevention: Patient is compliant with ASA 81 mg and Lipitor 40 mg and denies side effects (including bruising, bleeding, myalgia). Records Review: Allergies Allergen Reactions Cephalexin Other (See comments), Rash and Unknown Trouble with bladder Trouble with bladder Tape [Adhesive] Rash Tetracyclines Rash Nitrofurantoin Rash and Unknown Tetracycline Rash Levofloxacin Unknown Codeine Dizziness, Nausea & Vomiting, Nausea Only and Unknown Current Outpatient Medications on File Prior to Visit Medication Sig Dispense Refill acyclovir (ZOVIRAX) 200 mg capsule Take 1 capsule (200 mg total) by mouth 2 (two) times a day 60 capsule 11 aspirin 81 mg enteric coated tablet Take 1 tablet (81 mg total) by mouth daily atorvastatin (LIPITOR) 40 mg tablet Take 1 tablet (40 mg total) by mouth daily 30 tablet 11 cholecalciferol (VITAMIN D-3) 2000 unit tablet Take 1 tablet (2,000 Units total) by mouth daily 30 tablet 11 cyanocobalamin (Vitamin B-12) 100 mcg tablet Take 1 tablet (100 mcg total) by mouth daily furosemide (LASIX) 20 mg tablet Take 1 tablet (20 mg total) by mouth daily levothyroxine (SYNTHROID) 75 mcg tablet Take 1 tablet (75 mcg total) by mouth student union consultant before breakfast lisinopriL (PRINIVIL,ZESTRIL) 10 mg tablet TAKE 1 TABLET(10 MG) BY MOUTH DAILY 90 tablet 3 metoprolol tartrate (LOPRESSOR) 75 mg tablet immediate release tablet TAKE 1 TABLET(75 MG) BY MOUTHTWICE DAILY 180 tablet 3 predniSONE (DELTASONE) 5 mg tablet TAKE 1 TABLET(5 MG) BY MOUTH DAILY 30 tablet 11 sodium bicarbonate 650 mg tablet Take 1 tablet (650 mg total) by mouth daily 30 tablet 11 tacrolimus 0.5 mg immediate-release capsule Take 1 capsule (0.5 mg total) by mouth nightly 30 capsule 11 tacrolimus 1 mg immediate-release capsule Take 1 capsule (1 mg total) by mouth every morning 30 capsule 11 [DISCONTINUED] clopidogreL (PLAVIX) 75 mg tablet Take 1 tablet (75 mg total) by mouth daily for 19 doses 19 tablet 0 No current facility-administered medications on file prior to visit. Patient Active Problem List Diagnosis Vasculitis (CMS/HCC) ([facility]) History of kidney transplant Pseudophakia of both eyes Traumatic closed fracture of C2 vertebra with minimal displacement ([facility]) Injury to ligament of cervical spine Acute pain due to trauma HTN (hypertension) CAD (coronary artery disease) Hypothyroidism Chronic UTI Hordeolum internum of left lower eyelid Drusen of both optic discs Preseptal cellulitis of left upper eyelid Cerebrovascular accident (CVA), unspecified mechanism ([facility]) Past Medical History: Diagnosis Date Abdominal pain Bruising CAD (coronary artery disease) CAD (coronary artery disease) 03/21/2020 Chronic UTI 03/21/2020 Drusen of optic disc, bilateral Fatigue Frequent urination GERD (gastroesophageal reflux disease) Gout Heart murmur Hiatal hernia schatzki ring HL (hearing loss) Hyperlipidemia Hypertension Hypothyroidism Migraines Peritoneal dialysis status ([facility]) From 2009 to 2012 prior to transplant Postoperative delirium 02/2013 hallucinations s/p kidney transplant, saw flashes of color and puffs of smoke Renal failure received 1 episode chemo to try to save Kidney in 2008 [place]2008 Past Surgical History: Procedure Laterality Date AV FISTULA PLACEMENT Left with declotting CARDIAC CATHETERIZATION 10/2008 CATARACT EXTRACTION Left 05/05/2018 CATARACT EXTRACTION W/ INTRAOCULAR LENS IMPLANT Right CENTRAL LINE PLACEMENT > 5 YEARS N/A 02/16/2013 CYSTOSCOPY 08/2013 with placement of TVT-O midurethral ring HERNIA REPAIR 09/2008 with Schatzki's ring KIDNEY TRANSPLANT 02/2013 PARATHYROIDECTOMY 1994 RHINOPLASTY STRABISMUS SURGERY TONSILLECTOMY 194 VEIN LIGATION AND STRIPPING 1992 Family History Problem Relation Age of Onset Cancer Other Family history of Cancer; Kidney disease Other Family history of Renal disease; Stroke Other Family history of Stroke; Pancreatic cancer Mother Heart disease Father Social History Tobacco Use Smoking status: Never Smokeless tobacco: Never Substance and Sexual Activity Drug use: No Sexual activity: Defer Alcohol Use: Not At Risk (01/09/2023) AUDIT-C Frequency of Alcohol Consumption: Never Average Number of Drinks: Patient does not drink Frequency of Binge Drinking: Never Review of Systems Review of systems per HPI and otherwise all systems are negative Vital Signs Vitals: 11/03/23 0910 BP: 157/86 BP Location: Right arm Patient Position: Sitting Pulse: 85 Weight: 56.7 kg (125 lb) Height: 157.5 cm (5' 2 ) Physical Exam: GENERAL: Calm, cooperative, no acute distress Neck: Supple CARDIOVASCULAR: Regular rate and rhythm. RESPIRATORY: Normal work of breathing. EXTREMITIES: No edema or calf tenderness SKIN: No rashes, bruising or lesions. Neurologic Examination: MENTAL STATUS: -Level of alertness: Awake, Alert -Oriented to: person, place, time, situation, POTUS. -Attention: intact -Calculations: NL. -Follows simple and complex commands. LANGUAGE: -Naming: intact. -Fluency: normal rate, number of words in the sentence, ease of production, and use of grammar. -Comprehension: intact to conversation, following verbal and written commands. -Content: no paraphasic errors. -Repetition: intact. -Reading: intact. -Writing: intact. CRANIAL NERVES: -II: Pupils are equal and reactive, VF full to confrontation, -III, IV, : Exotropia since she was young, without having diplopia. -V1-3: SILT -VII: Face: asymmetry secondary to Mohs surgery on the left and there is very slight weakness in the right face of UMN pattern. -VIII: Hearing intact to finger rub bilaterally -IX,X: Palate elevates symmetrically -XI: SCMs and shoulder shrug strong bilaterally -XII: Tongue protrudes midline, no fasciculations or atrophy -Speech (including VII, IX, X, XII): intact MOTOR: Tone was normal throughout. No Drift. Forearm rolling test shows lesser excursion on the right. Strength testing: Right Left Shoulder Abduction 4+ 5 Elbow Flexion 5 5 Elbow Extension 5 5 Wrist Extension 5 5 Wrist Flexion 5 5 Hip Flexion 4+ 5 Hip Adduction 4+ 5 Hip Extension 4+ 5 Knee Extension 4+ 5 Knee Flexion 4+ 5 Ankle Dorsiflexion 4+ 5 Ankle Plantar Flexion 4+ 5 REFLEXES: Right Left Biceps 3 2 Brachioradialis 3 2 Triceps 3 2 Patella 3 2 Achilles 2 2 Plantars Mute DG SENSORY: -Temperature: Intact BL. CEREBELLAR/VESTIBULAR: -No Primary position or Gaze-evoked nystagmus. -Smooth pursuit, accurate saccades. -Intact Yyognl-Ywfa-Ugdsyw bilaterally. Intact Meow-Ricz-Qvog bilaterally. -No evidence of Truncal ataxia. GAIT: Slow narrow-based without ataxia and normal arm swing. Pertinent Investigations: See under HPI Impression/Plan: # Left MCA territory ischemic stroke in setting of Left M2 occlusion in July 2023 - Continue antithrombotic therapy with ASA 81 mg daily [with a full glass of water to minimize GI distress]. Benefits (secondary stroke prevention), risks (including but not limited to bleeding), andalternatives were discussed with the patient. - Continue antiatherogenic/lipid modifying agent: Lipitor daily. Benefits (including secondary stroke prevention - SPARCL study), risks (including but not limited to liver and muscle injury), and alternatives were discussed with the patient. - Follow-up with register in chancery regarding the findings in the event monitor, heart rhythm, and blood pressure. - Follow-up with PCP and other specialists for management of comorbid conditions, including blood pressure (maintain BP normotensive with goal < 130/80 mmHg in accordance with AHA guidelines), blood glucose (maintain A1c < 7.0%), dyslipidemia (maintain LDL-C < 70 mg/dl in accordance with AHA guidelines). Counseling: -Patient is counseled to: Exercise regularly (30 minutes three or more times per week) with fall precautions, Minimize alcohol consumption, Eat healthy, Optimize weight, Learn how to cope with stress, and medication compliance. -Patient is counseled on alarming neurological symptoms that should prompt urgent medical evaluation and informed to call 911 immediately if any of these symptoms of stroke appear: Numbness or weakness in the face/arm/leg; Confusion or trouble speaking or understanding speech; Trouble seeing in oneor both eyes; Trouble walking, dizziness, or problems with balance; severe headache with no known cause. Return to the clinic in 12 months (or sooner if any changes) to monitor symptoms and determine if additional medical management or diagnostic testing are necessary at that time. The patient expressed understanding, was comfortable and agreed with the overall plan, and all questions were answered to the patient's satisfaction. Thank you for the opportunity to participate in patient's care. Please feel free to contact my office with any questions, concerns, or input into patient's care. Sincerely, Chi kAhtar MD, MSc Vascular Neurology Fellow Case was discussed and seen in person with Dr. Adeline Colón MD Cosigned by Adeline Colón MD at 11/06/2023 10:29 AM CDT Associated attestation - Adeline Colón MD - 11/06/2023 10:29 AM CDT I have seen and examined the patient. I agree with the findings and plan of care as discussed with the resident/fellow. My total encounter time on 11/03/2023 was 25 minutes which was spent in the activities documented in the note. This includes time spent prior to the visit and after the visit in direct care of the patient. This time does not include time spent in any separately reportable services. documented in this encounter Plan of Treatment Not on file documented as of this encounter Visit Diagnoses Diagnosis Late effect of stroke- Primary Hypertension, unspecified type Lipid screening Screening for lipoid disorders documented in this encounter Discontinued Medications Medication Sig Discontinue Reason Start Date End Da te clopidogreL (PLAVIX) 75 mg tablet Take 1 tablet (75 mg total) by mouth daily for 19 doses No longer clinically indicated 07/19/2023 11/03/2023 documented as of this encounter Orders Outpatient Referral Count Last Ordered Date Fir st Ordered Date AMB REFERRAL TO NEUROLOGY 1 11/03/2023 documented in this encounter Care Teams Process Engineer Relationship Specialty Start Date End Date Fadi Clemons DO [address] [address] PCP - General Family Medicine 11/03/22 Regina Contreras, DEREK Captain/Check Airman 12/07/19 Charly Biggs MD [address] [address] Consulting Physician Internal Medicine 03/28/20 documented as of this encounter
--- OUTSIDE RECORDS SUMMARY | 2024-06-27 01:50 | XMS_ITS | Referral Summary ---
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); Immunosuppressive management encounter following kidney transplant; Hyperlipidemia, unspecified hyperlipidemia type 05/26/2024 Telephone [facility] Transplant Kidney [address] [facility] [address] [id number] [place] [address] Regina Contreras RN 05/25/2024 10:45 AM PST SUPERVISOR Office Visit [facility] 5th [place] [address] [place] [address] Layla Malloy MD Encounter for aftercare following kidney transplant (Primary Dx); Encounter for long-term (current) use of high-risk medication; Skin lesion of left lower extremity; Primary hypertension from Last 3 Months Allergies Active Allergy Reactions Criticality Noted Date Comments Cephalexin Other (See comments),Rash,Unknown High 04/14/2011 Trouble with bladder Trouble with bladder Codeine Dizziness,Nausea & Vomiting,Nausea Only,Unknown Low 04/30/2011 Levofloxacin Unknown 04/29/2018 Nitrofurantoin Rash,Unknown Medium 04/30/2011 Adhesive Rash High 08/19/2018 Tetracycline Rash Medium 04/30/2011 Tetracyclines Rash High 04/30/2011 Medications cyanocobalamin (Vitamin B-12) 100 mcg tablet Take 1 tablet (100 mcg total) by mouth daily Active cholecalciferol (VITAMIN D-3) 2000 unit tablet Take 1 tablet (2,000 Units total) by mouth daily 30 tablet 2 Active tacrolimus 1 mg immediate-relea se capsuleIndicati ons:Kidney replaced by transplant Take 1 capsule (1 mg total) by mouth every morning 30 capsule 3 Active tacrolimus 0.5 mg immediate-relea se capsuleIndicati ons:Kidney replaced by transplant Take 1 capsule (0.5 mg total) by mouth nightly 30 capsule 3 Active predniSONE (DELTASONE) 5 mg tabletIndicatio ns:Kidney replaced by transplant TAKE 1 TABLET(5 MG) BY MOUTH DAILY 30 tablet 4 Active furosemide (LASIX) 20 mg tablet Take 1 tablet (20 mg total) by mouth daily Active aspirin 81 mg enteric coated tablet Take 1 tablet (81 mg total) by mouth daily Active levothyroxine (SYNTHROID) 75 mcg tablet Take 1 tablet (75 mcg total) by mouth manager of tax before breakfast Active atorvastatin (LIPITOR) 40 mg tablet Take 1 tablet (40 mg total) by mouth daily 30 tablet 08/19/19 25 Active metoprolol tartrate (LOPRESSOR) 75 mg tablet immediate release tablet TAKE 1 TABLET(75 MG) BY MOUTH TWICE DAILY 180 tablet 4 Active sodium bicarbonate 650 mg tablet Take 1 tablet (650 mg total) by mouth daily 30 tablet 02/04/20 25 Active acyclovir (ZOVIRAX) 200 mg capsule Take 1 capsule (200 mg total) by mouth 2 (two) times a day 60 capsule 11 11/01/202 4 11/01/20 25 Active lisinopriL (PRINIVIL,ZESTR IL) 10 mg tablet Take 1 tablet (10 mg total) by mouth daily 90 tablet 3 4 06/13/20 25 Active lisinopriL (PRINIVIL,ZESTR IL) 10 mg tablet TAKE 1 TABLET(10 MG) BY MOUTH DAILY 90 tablet 3 3 06/13/20 24 Discontinu ed(Reorder ) Active Problems Patient Care Coordination No te Formatting of this note migh t be different from the original. Lab: 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 Exam is concerning for pre-septal cellulitis and warrants treatment. Pt has been prescribed PO cipro for a persistent UTI. This should be sufficient to treat her eyelid. It was also recommended last week that she be admitted for IV antibiotics for her UTI. I think her eyelid will clear with either of these treatments. I have recommended she reach out to her kidney specialist to get inpatient care as recommended in their note. 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 Observe. F/u annually. Assessment & Plan (11/03/2022 1:15 PM CDT): Stable exam and acuity OU. Observe. Hordeolum internum of left lower eyelid 07/04/20 20 Assessment & Plan (07/04/2020 12:10 PM PST SUPERVISOR): Start hot compresses bid OS. Start maxitrol pietro to eyelid bid x 2 weeks then stop. Call with any persistence at 2 weeks or any worsening. Keep annual f/u with [facility]. Traumatic closed fracture of C2 vertebra with minimal displacement 03/21/2020 Injury to ligament of cervical spine 03/21/2020 Acute pain due to trauma 03/21/2020 HTN (hypertension) 03/21/2020 CAD (coronary artery disease) 03/21/2020 Hypothyroidism 03/21/2020 Chronic UTI 03/21/2020 Pseudophakia of both eyes 04/11/2019 Assessment & Plan (11/09/2023 10:36 AM CDT): Stable. Observe. Assessment & Plan (11/03/2022 1:15 PM CDT): Stable. Observe. History of kidney transplant 05/17/2013 Overview (10/10/2016): Kidney transplanted Immunizations Name Administration Dates Next Due Influenza, Quadrivalent, Charmaine l Culture-based MDCK, Preservative Free, Antibiotic Free, Intramuscular 05/15/2022 [place] (J&J) SARS-CoV-2 Vaccination 09/07/2020 Pfizer SARS-CoV-2 Monovalent Vaccination (12+ Yrs) PURPLE 07/01/2021 Social History Tobacco Use Types Packs/Day Years [...] on file Legal Sex 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 PST SUPERVISOR Gender Identity Not on file Sexual Orientation Not on file Last Filed Vital Signs Vital Sign Reading Time Taken Comments Blood Pressure 148/83 05/25/2024 10:37 AM PST SUPERVISOR Pulse 75 05/25/2024 10:37 AM PST SUPERVISOR Temperature 36.4 ??C (97.6 ??F) 05/25/2024 10:[address] Respiratory Rate 16 07/18/2023 3:00 PM PST SUPERVISOR Oxygen Saturation 95% 07/18/2023 2:00 PM PST SUPERVISOR Inhaled Oxygen Concentration - - Weight 56.7 kg (125 lb) 05/25/2024 10:37 AM PST SUPERVISOR Height 157.5 cm (5' 2 ) 05/25/2024 10:37 AM PST SUPERVISOR Body Mass Index 22.86 05/25/2024 10:37 AM PST SUPERVISOR Plan of Treatment Not on file Medical Devices Implanted Type Area Research Associate Device Identifier Shelf Expiration Date Model / Serial / Lot Son Surgical [id number].295 Acrysof Iq Natural Stableforce Acrysert 6mm 13mm 1 Piece Foldable - [id number] - [id number] Implanted:Qty: 1 on 05/05/2018 by Butch Maria MD at [facility] Lens Left: Eye [employer] [id number] 05/05/2020 SN60WF.295 / [id number] 1 / 0 S[employer] [id number] .285 Acrysof Iq Natural Stableforce Acrysert 6mm 13mm 1 Piece Foldable - [id number] - [id number] Implanted:Qty: 1 on 04/11/2019 by Butch Maria MD at [facility] Right: Eye [employer] 01/02/2022 [id number] .285 / [id number] / Procedures Procedure Name Priority Date/Time Associated Diagnosis Comments POCT URINALYSIS DIPSTICK Routine 05/25/2024 11:42 AM PST SUPERVISOR Encounter for aftercare following kidney transplant CBC WITH AUTO DIFFERENTIAL Routine 04/26/2024 RENAL FUNCTION PANEL Routine 04/26/2024 HEPATIC FUNCTION PANEL Routine 04/26/2024 TSH Routine 04/26/2024 T4, FREE Routine 04/26/2024 TACROLIMUS LEVEL, TROUGH Routine 04/26/2024 from Last 3 Months Results * (ABNORMAL) POCT urinalysis dipstick (05/25/2024 11:42 AM PST SUPERVISOR) Glucose, ur, POC Negative Negative MG/DL Bilirubin, ur, POC Negative Negative, Small, Moderate, Large Ketones, ur, POC Negative Negative Specific [place], POC 1.020 1.003 - 1.030 Blood, ur, POC Small(A) Negative pH, ur, POC 6.0 5.0 - 8.0 Protein, ur, POC Negative Negative Urobilinogen, urine, POC 0.2 0.2 - 1.0 mg/dL Nitrite, ur, POC Negative Negative Leukocytes, ur, POC Small(A) Negative Lot Number [id number] Urine 05/25/2024 11:4 2 AM PST SUPERVISOR Layla Mares MD POINT OF CARE YAA T ORDERABLES Final Result * Tacrolimus level trough (04/26/2024) SCRIBED Tacrolimus, trough 5.4 5 - 20 mcg/L TXP NO LAB FOUND Blood 04/26/2024 Historical Provider LAB BLOOD ORDERABLES Paty l Result TXP NO LAB FOUND * (ABNORMAL) CBC with auto differential (04/26/2024) SCRIBED WBC 6.8 4.5 - 10 k/cumm TXP NO LAB FOUND SCRIBED Hemoglobin 12.3 12 - 15 g/dL TXP NO LAB FOUND SCRIBED Hematocrit 39.7 37 - 47 % TXP NO LAB FOUND SCRIBED Platelets 123(A) 150 - 375 k/cumm TXP NO LAB FOUND SCRIBED Lymphocytes Abs 0.45(A) 0.9 - 3.2 k/cumm TXP NO LAB FOUND Blood 04/26/2024 Result [facility] Provider LAB BLOOD ORDERABLES Edit ed Result - Final Performing Organization Address [facility] de Phone Number TXP NO LAB FOUND * TSH (04/26/2024) Scribed TSH 3.78 0.47 - 4.68 mcU/mL TXP NO LAB FOUND Blood 04/26/2024 Result [facility] Provider LAB BLOOD ORDERABLES Paty l Result Performing Organization Address [facility] de Phone Number TXP NO LAB FOUND * T4, free (04/26/2024) SCRIBED T4, Free 1.87 0.78 - 2.19 mcg/dL TXP NO LAB FOUND Blood 04/26/2024 Result [facility] Provider LAB BLOOD ORDERABLES Paty l Result Performing Organization Address [facility] de Phone Number TXP NO LAB FOUND * (ABNORMAL) Hepatic function panel (04/26/2024) SCRIBED Protein, Total, Serum 7 6.3 - 8.2 g/dL TXP NO LAB FOUND SCRIBED Albumin 3.9 3.5 - 5.1 g/dl TXP NO LAB FOUND SCRIBED Bilirubin, Total 1.2 0.2 - 1.3 mg/dL TXP NO LAB FOUND SCRIBED Alkaline Phosphatase 136(A) 38 - 126 Units/L TXP NO LAB FOUND SCRIBED Aspartate Transaminase (AST) 28 14 - 36 Units/L TXP NO LAB FOUND SCRIBED Alanine Transaminase (ALT) 23 6 - 35 Units/L TXP NO LAB FOUND Blood 04/26/2024 Result [facility] Provider LAB BLOOD ORDERABLES Paty l Result Performing Organization Address [facility] de Phone Number TXP NO LAB FOUND * (ABNORMAL) Renal function panel (04/26/2024) SCRIBED Calcium 9.7 8.4 - 10.2 mg/dl TXP NO LAB FOUND SCRIBED Albumin 3.9 3.5 - 5.1 g/dl TXP NO LAB FOUND SCRIBED Glucose 100 65 - 100 mg/dl TXP NO LAB FOUND SCRIBED Creatinine 0.90 0.7 - 1.0 mg/dl TXP NO LAB FOUND SCRIBED Sodium 140 137 - 145 mmol/L TXP NO LAB FOUND SCRIBED Potassium 4.3 3.4 - 5 mmol/L TXP NO LAB FOUND SCRIBED Chloride 107 98 - 107 mmol/L TXP NO LAB FOUND SCRIBED Carbon Dioxide 25 22 - 30 mmol/L TXP NO LAB FOUND SCRIBED eGFR in NonAfrican Welsh 59 N/A mL/min TXP NO LAB FOUND SCRIBED Urea Nitrogen (BUN) 30(A) 7 - 17 mg/dl TXP NO LAB FOUND Blood 04/26/2024 us Historical Provider LAB BLOOD ORDERABLES Edit ed Result - Final TXP NO LAB FOUND from Last 3 Months Insurance MEDICARE [facility] MEDICARE [facility] MEDICARE [facility] Advance Directives For more information, please contact: [phone] Documents on File Type Date Recorded Patient Shot Peening Operator Expl anation ADVANCE DIRECTIVE 08/27/2023 11:20 AM [facility] RN - MEDICAL * Full Code (Latest Code Status on File) Date Activated Date Inactivated Comments 07/16/2023 5:58 PM 07/18/2023 8:38 PM * Full Code Date Activated Date Inactivated Comments 01/26/2023 7:13 AM 01/27/2023 4:49 AM * Full Code Date Activated Date Inactivated Comments 01/01/2021 10:17 AM 01/01/2021 6:28 PM * LIMITED - No CPR Date Activated Date Inactivated Comments 03/20/2020 4:16 PM 03/28/2020 7:22 PM Question Answer Comments Provide aggressive medical m anagement before a full cardiopulmonary arrest occurs. Use antibiotics, IV Fluids, and medical treatment unless specifically selected below: No intubation * Full Code Date Activated Date Inactivated Comments 03/20/2020 2:39 PM 03/20/2020 4:16 PM Care Teams Preschool Assistant Teacher Relationship Specialty Start Date End Date Fadi Clemons DO [address] [address] PCP - General Family Medicine 11/03/22 Regina Contreras RN Electronic Parts Salesperson 12/07/19 Charly Biggs MD [address] [address] Consulting Physician Internal Medicine 03/28/20
--- OUTSIDE RECORDS SUMMARY | 2024-06-27 01:50 | XMS_ITS | Encounter Summary ---
Author Organization [facility] Healthcare Address [address] [place] [address] Care Team Providers Care Computer Applications Engineer Name Role Phone Regina Contreras RN Unavailable [phone] Charly Biggs MD Unavailable [phone] Fadi Clemons DO Primary Care Provider [phone] Encounter Details Date Type Department Care Team (Late st Contact Info) Description 05/04/2023 Orders Only [facility] Transplant Kidney [address] [facility] [address] [phone] [place] [address] Paola Guillory Kidney transplanted (Primary Dx); Hyperlipidemia, unspecified hyperlipidemia type; Encounter for long-term (current) use of medications Social History Tobacco Use Types Packs/Day Years [...] on file Legal Sex 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 QUALITY CONTROL HEAD Gender Identity Not on file Sexual Orientation Not on file documented as of this encounter Miscellaneous Notes * Addendum Note - Renetta Huynh - 05/04/2023 3:15 PM CDTAddended by: RENETTA HUYNH on: 11/20/2023 04:18 PM Modules accepted: Orders documented in this encounter Plan of Treatment Not on file documented as of this encounter Visit Diagnoses Diagnosis Kidney transplanted- Primary Kidney replaced by transplant Hyperlipidemia, unspecified hyperlipidemia type Encounter for long-term (current) use of medications Encounter for long-term (current) use of other medications documented in this encounter Care Teams Computer Applications Engineer Relationship Specialty Start Date End Date Fadi Clemons DO [address] [address] PCP - General Family Medicine 11/03/22 Regina Contreras, RN Assistant Public Defender 12/07/19 Charly Biggs MD [address] [address] Consulting Physician Internal Medicine 03/28/20 documented as of this encounter
--- OUTSIDE RECORDS SUMMARY | 2024-06-27 01:50 | XMS_ITS | Encounter Summary ---
Author Organization [facility] Address [address] [place] [address] Phone Care Team Providers Care Brim Molder Name Role Phone Regina Contreras RN Unavailable [phone] Charly Biggs MD Unavailable [phone] Fadi Clemons DO Primary Care Provider [phone] Reason for Visit * Reason Comments Blurred Vision Encounter Details Date Type Department Care Team (Late st Contact Info) Description 11/09/2023 10:00 AM CDT Office Visit [facility] Ophthalmology [address] [facility] 2nd Floor [address] [place] [address] Paul Bradley, OD [address] [facility] [address] [place] [address] Drusen of both optic discs (Primary Dx); Pseudophakia of both eyes Social History Tobacco Use Types Packs/Day Years [...] on file Legal Sex 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 Observe. F/u annually. Pseudophakia of both eyes Assessment & Plan: Stable. Observe. documented in this encounter Miscellaneous Notes * Assessment & Plan Note - Paul Bradley OD - 11/09/2023 10:36 AM CDT Associated Problem(s): Pseudophakia of both eyes Stable. Observe. * Assessment & Plan Note - Paul Bradley OD - 11/09/2023 10:36 AM CDT Associated Problem(s): Drusen of both optic discs Stable exam and acuity. Observe. F/u annually. documented in this encounter Plan of Treatment Not on file documented as of this encounter Visit Diagnoses Diagnosis Drusen of both optic discs- Primary Pseudophakia of both eyes Lens replaced by other means documented in this encounter Eye Exam Visual Acuity (Snellen - Linear) Right eye Left eye Dist cc 20/20 -2 20/20 -2 Correction: Glasses Tonometry (Applanation, 10:35 AM) Right eye Left eye Pressure 12 14 Pupils Dark Light Shape React APD Right eye 3 2 Round Minimal None Left eye 3 2 Round Minimal None Visual Hills (Counting fingers) Right eye Left eye Full Full Extraocular Movement Right eye Left eye Full Full Neuro/Psych Oriented x3: Yes Mood/Affect: Normal Dilation Both eyes: 1.0% Mydriacyl @ 10:05 AM External Exam Right eye Left eye External Normal Normal Slit Lamp Exam Right eye Left eye Lids/Lashes Dermatochalasis - up per lid w/hooding Dermatochalasis - upper lid w/hooding Conjunctiva/Sclera White and quiet White and lisandro et Cornea Clear Clear Anterior Chamber Deep and quiet Deep and quiet Iris Round and reactive Round and billy ctive Lens Posterior chamber in traocular lens, no Posterior capsular opacification Posterior chamber intraocular lens Anterior Vitreous Normal Normal Fundus Exam Right eye Left eye Posterior Vitreous Normal Normal Disc full rims, possible drusen full rims, possible drusen C/D Ratio 0.0 0.0 Macula Normal Normal Vessels Arteriolar narrowing Arteriolar narrowing Periphery RPE changes RPE changes Care Teams Brim Molder Relationship Specialty Start Date End Date Fadi Clemons DO [address] [address] PCP - General Family Medicine 11/03/22 Regina Contreras, RN Broom Machine Operator 12/07/19 Charly Biggs MD [address] [address] Consulting Physician Internal Medicine 03/28/20 documented as of this encounter
--- OUTSIDE RECORDS SUMMARY | 2024-06-27 01:50 | XMS_ITS | Encounter Summary ---
Author Organization [facility] Address [facility] [place] [address] Care Team Providers Care Composition Weatherboard Applier Name Role Phone Unavailable Primary Care Provider Unavailabl e Encounter Details Date Type Department Care Team (Latest Contact Info) Description 11/20/2020 Travel Social History Tobacco Use Types Packs/Day Years Used Date Smoking Tobacco: Never Assessed Sex and Gender Information Value Date Recorded Sex Assigned at Not on file Gender Identity Not on file Sexual Orientation Not on file COVID-19 Exposure Response Date Recorded In the last month, have you been in contact with someone who was confirmed or suspected to have Coronavirus / COVID-19? No / Unsure 11/20/2020 1:52 PM CDT documented as of this encounter Plan of Treatment Not on file documented as of this encounter Visit Diagnoses Not on filedocumented in this encounter
--- OUTSIDE RECORDS SUMMARY | 2024-06-27 01:50 | XMS_ITS | Encounter Summary ---
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) Social History Tobacco Use Types Packs/Day Years [...] on file Legal Sex 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 TABLE TENDER SLUDGE Gender Identity Not on file Sexual Orientation Not on file documented as of this encounter Plan of Treatment Not on file documented as of this encounter Visit Diagnoses Diagnosis Kidney replaced by transplant- Primary documented in this encounter Care Teams Swine Nutritionist Relationship Specialty Start Date End Date Fadi Clemons DO [address] [address] PCP - General Family Medicine 11/03/22 Regina Contreras, RN Corporate Auditor 12/07/19 Charly Biggs MD [address] [address] Consulting Physician Internal Medicine 03/28/20 documented as of this encounter
--- OUTSIDE RECORDS SUMMARY | 2024-06-27 01:50 | XMS_ITS | Encounter Summary ---
Author Organization [facility] Healthcare Address [address] [place] [address] Care Team Providers Care Auto Wrecker Name Role Phone Regina Contreras RN Unavailable [phone] Charly Biggs MD Unavailable [phone] Fadi Clemons DO Primary Care Provider [phone] Encounter Details Date Type Department Care Team (Late st Contact Info) Description 07/24/2023 [facility] Post Discharge Follow up phone call 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
--- OUTSIDE RECORDS SUMMARY | 2024-06-27 01:50 | XMS_ITS | CONTINUITY OF CARE DOCUMENT ---
Author Name southsebastienhenry Address Unknown Organization 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 Pablo Mckeon DO Dyspnea on exertion completed - Pablo Mckeon DO Ulcer, leg left non arterial completed 201 03/07/14 - Pablo Mckeon DO CAD active Pablo Mckeon DO CHF - diastolic active Pablo Mckeon DO PVD - unspecified active Pablo Mckeon DO Aortic atherosclerosis completed 3 - Pablo Mckeon DO DVT;left arm active Pablo Mckeon DO Pleural effusion active Pablo Mckeon DO CVA active Pablo Mckeon DO Balance problem check caroti d duplex completed - Pablo Mckeon DO Diastolic heart failure completed - Pablo Mckeon DO ENCOUNTERS Date Type Provider Location Encounter Diag nosis 06/13 - 06/13 In-person encounter Office Visit Pablo Mckeon DO [facility] 12/09 - 12/09 In-person encounter Office Visit Pablo Mckeon DO [facility] CVA 06/11 - 06/11 In-person encounter Office Visit Pablo Mckeon DO [facility] 03/02 - 03/02 In-person encounter Office Visit Pablo Mckeon DO [facility] Pleural effusion 02/05 - 02/05 [facility] encounter [facility] 10[facility]09 - 10/09 In-person encounter Office Visit Pablo Mckeon DO [facility] 04/08 - 04/08 In-person encounter Office Visit Pablo Mckeon DO [facility] 01/07 - 01/07 In-person encounter Office Visit Pablo Mckeon DO [facility] Balance problem check carotid duplex 12/10 - 12/10 In-person encounter Office Visit Pablo Mckeon DO [facility] 11/20 - 11/20 In-person encounter Office Visit Pablo Mckeon DO [facility] 01/03 - 01/03 In-person encounter Office Visit Pablo Mckeon DO [facility] 07/26 - 07/26 In-person encounter Office Visit Pablo Mckeon DO [facility] Ulcer, leg left non arterial 06/30 - 06/30 In-person encounter Office Visit Pablo Mckeon DO [facility] Aortic atherosclerosisDVT;left arm 06/27 - 06/27 In-person encounter Office Visit David Del Rio MD [facility] DVT;left arm 02/08 - 02/08 In-person encounter [facility] Visit [facility] Diastolic heart failure 09/30 - 09/30 In-person encounter Office Visit [facility] Cardiology examinationDyspnea on exertio nCHF - diastolicPVD - unspecified 09/14 - 09/14 In-person encounter Office Visit Pablo [facility] 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 08/19 - 08/19 In-person encounter Office Visit [facility] Kidney transplant 2013 BarnesHTN essentialHypothyroidismHypercholesterolemiaPulmonar y HTN secondary who 2Ulcer, leg left non arterialCAD VITAL SIGNS Date Observation Value Provider Body Mass Index (Ratio) 22.49 kg/m2 Prad thomas Shlomo Mike blood pressure, diastolic 85 mm[Hg[facility] systolic 165 mm[Hg] [facility], oximetry 95 % [facility] rate E&M 12 /min [facility] pulse rate 69 /min [facility] weight E&M 127 [lb_av] [facility] height E&M 63 [in_i] [facility] blood [facility], cuff size regular [facility] Body Mass Index (Ratio) 22.02 kg/m2 Prad eethomas Mckeon DO blood pressure, diastolic 70 mm[Hg] Li nkLogic blood pressure, systolic 110 mm[Hg] Lani kLogsuyapa blood pressure, cuff size regular Co ri Jerad blood pressure, diastolic 70 mm[Hg] Co ri Jerad blood pressure, systolic 110 mm[Hg] Cor i Jerad pulse rate 70 /min Ivis Mars oxygen saturation, oximetry 96 % Ivis Mars weight E&M 124.3 [lb_av] Ivis Mars respiratory rate E&M 18 /min Ivis Cunningham height E&M 63 [in_i] Ivis Mars Body Mass Index (Ratio) 21.25 kg/m2 Prad ee Shlomo Mike DO blood pressure, diastolic 77 mm[Hg] Li nkLogic blood pressure, systolic 119 mm[Hg] Lani kLogic blood pressure, diastolic 77 mm[Hg] Darleen orlando Yunior blood pressure, systolic 119 mm[Hg] Sonu henning Yunior oxygen saturation, oximetry 98 % Darlin Mojica pulse rate 75 /min Darlin lau weight E&M 120 [lb_av] Darlin lau blood pressure, cuff size large Darleen orlando Yunior respiratory rate E&M 14 /min Kalyn Mojica height E&M 63 [in_i] Darlin lau Body Mass Index (Ratio) 19.84 kg/m2 Prad thomas Mckeon DO blood pressure, diastolic 68 mm[Hg] St acdorina Lin blood pressure, systolic 127 mm[Hg] Paulo Lin oxygen saturation, oximetry 97 % Rhodaneelam Lin pulse rate 63 /min Rhoda Lin respiratory rate E&M 12 /min hRoda Lau geraldine weight E&M 112 [lb_av] Rhodaneelam Lin height E&M 63 [in_i] Rhodaneelam Lin Body Mass Index (Ratio) 20.37 kg/m2 Prad thomas Mckeon DO blood pressure, diastolic 73 mm[Hg] St acy Riley blood pressure, systolic 135 mm[Hg] Paulo Lin oxygen saturation, oximetry 90 % Rhoda Lin pulse rate 72 /min Rhoda Riley weight E&M 115 [lb_av] Rhoda Riley respiratory rate E&M 16 /min Rhoda Lau geraldine height E&M 63 [in_i] Rhoda Riley Body Mass Index (Ratio) 21.25 kg/m2 Prad [facility] Shlomo [facility] blood pressure, cuff size regular Ke rri Gruenenfelder blood pressure, diastolic 84 mm[Hg] Ke rri Gruenenfelder blood pressure, systolic 160 mm[Hg] Ker ri Gruenenfelder oxygen saturation, oximetry 96 % Debra Gruenenfelder respiratory rate E&M 14 /min Debra G ruenenfelder pulse rate 73 /min Debra Gruenenfe lder weight E&M 120 [lb_av] Debra Gruenenfe lder height E&M 63 [in_i] Debra Gruenenfe lder Body Mass Index (Ratio) 23.20 kg/m2 [facility] blood pressure, diastolic 80 mm[Hg] Tamanna nkLog blood pressure, systolic 130 mm[Hg] Lani kLogic blood pressure, cuff size regular Ke rri Gruenenfelder blood pressure, diastolic 80 mm[Hg] Ke rri Gruenenfelder blood pressure, systolic 130 mm[Hg] Ker ri Gruenenfelder oxygen saturation, oximetry 96 % Debra Gruenenfelder weight E&M 131 [lb_av] Debra Gruenenfe lder respiratory rate E&M 14 /min Debra G ruenenfelder pulse rate 74 /min Debra Gruenenfe lder height E&M 63 [in_i] Debra Gruenenfe lder Body Mass Index (Ratio) 23.03 kg/m2 Prad [facility] [place]lomo Mckeon DO blood pressure, diastolic 80 mm[Hg] Li nkLogic blood pressure, systolic 165 mm[Hg] Lani kLogic blood pressure, cuff size large Mi johanny [place] blood pressure, diastolic 80 mm[Hg] Mi johanny [place] blood pressure, systolic 165 mm[Hg] Sonu milady [place] oxygen saturation, oximetry 96 % Darlin Mojica respiratory rate E&M 16 /min Kalyn cesar [place] pulse rate 80 /min Darlin lau weight E&M 130 [lb_av] Darlin lau height E&M 63 [in_i] Darlin lau Body Mass Index (Ratio) 23.56 kg/m2 Prad ee Shlomo Mckeon DO blood pressure, cuff size regular Ke rri Gruenenfelder blood pressure, diastolic 85 mm[Hg] Ke rri Gruenenfelder blood pressure, systolic 165 mm[Hg] Ker ri Gruenenfelder oxygen saturation, oximetry 97 % Debra Gruenenfelder respiratory rate E&M 14 /min Debra G ruenenfelder pulse rate 69 /min Debra Gruenenfe lder weight E&M 133 [lb_av] Debra Gruenenfe lder height E&M 63 [in_i] Debra Gruenenfe lder Body Mass Index (Ratio) 23.73 kg/m2 Prad ee Shlomo Mckeon blood pressure, cuff size regular Medardo Hercules blood pressure, diastolic 70 mm[Hg] Medardo Pintoby blood pressure, systolic 140 mm[Hg] Mora Pintoby pulse rate 77 /min Cristiana Hercules oxygen saturation, oximetry 99 % Cristiana Hercules respiratory rate E&M 18 /min Cristiana Pintoby weight E&M 134 [lb_av] Cristiana Pintoby height E&M 63 [in_i] Cristiana Diomedes Body Mass Index (Ratio) 23.20 kg/m2 Prad [facility] [place]lomo Mckeon DO blood pressure, diastolic 73 mm[Hg] astity Tuan blood pressure, systolic 144 mm[Hg] Zainab stity Tuan oxygen saturation, oximetry 96 % [facility] rate E&M 16 /min Chastit y Tuan pulse rate 72 /min Chastity Tuan weight E&M 131 [lb_av] Chastity Tuan height E&M 63 [in_i] [facility] Body Mass Index (Ratio) 22.67 kg/m2 Prad [facility] Shlomo Mckeon pulse rate 74 /min Camille Block blood pressure, diastolic 80 mm[Hg] Annette it[facility]formerly [facility] Block blood pressure, systolic 130 mm[Hg] Tegan ttamt Block oxygen saturation, oximetry 97 % Camille Block weight E&M 128 [lb_av] Camille Block respiratory rate E&M 16 /min [facility] height E&M 63 [in_i] Camille Block Body Mass Index (Ratio) 23.20 kg/m2 [facility] Shlomo Mckeon blood pressure, diastolic 80 mm[Hg] Medardo Pintoby blood pressure, systolic 120 mm[Hg] Kri sty [place] oxygen saturation, oximetry 97 % Cristiana Diomedes pulse rate 70 /min Cristiana [place] respiratory rate E&M 18 /min Cristiana Diomedes blood pressure, cuff size regular Medardo jamilty Diomedes weight E&M 131 [lb_av] Cristiana Diomedes height E&M 63 [in_i] Cristiana [place] Body Mass Index (Ratio) 23.38 kg/m2 Shant Del Rio MD blood pressure, diastolic 80 mm[Hg] Medardo jamilty [place] blood pressure, systolic 142 mm[Hg] Medardoi sty Diomedes pulse rate 78 /min Cristiana [place] oxygen saturation, oximetry 95 % Cristiana Diomedes weight E&M 132 [lb_av] Cristiana [place] respiratory rate E&M 17 /min Cristiana Diomedes height E&M 63 [in_i] Cristiana [place] Body Mass Index (Ratio) 22.53 kg/m2 Krish Alason Mike MALDONADO blood pressure, diastolic 70 mm[Hg] Medardo jamilty [place] blood pressure, systolic 110 mm[Hg] Medardoi sty [place] oxygen saturation, oximetry 98 % Cristiana [place] pulse rate 75 /min Cristiana [place] respiratory rate E&M 18 /min Cristiana [place] weight E&M 127.2 [lb_av] Cristiana [place] blood pressure, cuff size regular Medardo jamilty Diomedes height E&M 63 [in_i] Cristiana Diomedes Body Mass Index (Ratio) 22.67 kg/m2 Krish Mckeon DO blood pressure, diastolic 80 mm[Hg] Medardo Pinto blood pressure, systolic 132 mm[Hg] Mora Pinto oxygen saturation, oximetry 96 % Cristiana Pinto pulse rate 76 /min Cristiana Pinto respiratory rate E&M 17 /min Cristiana blood pressure, cuff size regular Medardo knight weight E&M 128 [lb_av] Cristiana height E&M 63 [in_i] Cristiana Diomedes Body Mass Index (Ratio) 22.67 kg/m2 Prad eep Shlomo Mckeon DO blood pressure, resting Yes Emiliano tity Tuan oxygen saturation, oximetry 97 % Zainabadri Tuan respiratory rate E&M 16 /min Zainabstit y Tuan blood pressure, diastolic 72 mm[Hg] Ch astity Tuan blood pressure, systolic 142 mm[Hg] Zainab stity Tuan pulse rate 76 /min Zainabstity Tuan weight E&M 128 [lb_av] Zainabstity Tuan height E&M 63 [in_i] Zainabity Tuan ALLERGIES Allergy Name Onset Date Reaction Criticality Status CEPHALEXIN High Criticality active TETRACYCLINE High Criticality active CODEINE High Criticality active ADHESIVE TAPE High Criticality activ e RESULTS Date Observation Value Provider Reference Range Interpretation Location 4 prothrombin time (patient) 11.3 s [facility] 9.1-12.0 4 international normalized ratio (INR) 1.1 [facility] 0.8-1.2 4 lipoprotein, beta, serum, point, quantitative, calculated 49 mg/dL [facility] 0-99 4 very low density lipoproteins 14 mg/dL [facility] 5-40 4 HDL cholesterol, serum 62 mg/dL [facility] >39 4 triglyceride, serum, random 72 mg/dL [facility] 0-149 4 cholesterol, serum 125 mg/dL [facility] [phone]/12/2 4 calcium, serum 10.2 mg/dL [facility] 8.7-10.3 4 carbon dioxide, venous blood 22 mmol/L [facility] 20-29 4 chloride, serum 106 mmol/L [facility] 96-106 4 potassium, serum 4.8 mmol/L [facility] 3.5-5.2 4 sodium, serum 142 mmol/L [facility] 592-570 9040/12/2 4 urea nitrogen/creatinin e ratio, serum 26 [facility] 12-28 4 eGFR if 66 mL/min/{1. 73_m2} [facility] >59 4 eGFR if not 57 mL/min/{1. 73_m2} [facility] >59 Low 4 creatinine, serum 0.93 mg/dL [facility] 0.57-1.00 4 urea nitrogen, blood 24 mg/dL [facility] 8-27 4 blood glucose, random 112 mg/dL [facility] 65-99 High 4 basophil count, absolute 0.0 x10E3/uL [facility] 0.0-0.2 4 Eosinophil Absolute Count 0.2 X10E3/UL [facility] 0.0-0.4 4 monocyte count, blood, automated 0.4 X10E3/UL [facility] 0.1-0.9 4 lymphocyte count, blood, automated 0.4 X10E3/UL [facility] 0.7-3.1 Low 4 Absolute Neutrophils 6.2 X10E3/UL [facility] 1.4-7.0 4 basophils as percent of blood leukocytes 1 % [facility] Not Estab. 4 eosinophils as percent of blood leukocytes 3 % [facility] Not Estab. 4 monocytes as percent of blood leukocytes 6 % [facility] Not Estab. 4 lymphocytes as percent of blood leukocytes 6 % [facility] Not Estab. 2019/12/2 4 neutrophils as percent of blood leukocytes 84 % [facility] Not Estab. 4 platelet count 151 X10E3/UL [facility] [phone]/12/2 4 red blood cell distribution width 13.0 % [facility] 12.3-15.4 4 mean corpuscular hemoglobin concentration, RBC 32.4 G/DL [facility] 31.5-35.7 4 mean corpuscular hemoglobin, RBC 31.5 pg [facility] 26.6-33.0 4 mean corpuscular volume, RBC 97 fL [facility] 79-97 4 hematocrit, blood 39.2 % [facility] 34.0-46.6 4 hemoglobin, blood 12.7 g/dL [facility] 11.1-15.9 4 erythrocyte (RBC) count 4.03 X10E6/UL [facility] 3.77-5.28 4 leukocyte count, blood 7.3 X10E3/UL [facility] 3.4-10.8 5 pro brain natriuretic peptide 969 pg/mL [facility] 0-738 High 5 hemoglobin A1C, blood, as % of total hemoglobin 5.9 % [facility] 4.8-5.6 High 5 prothrombin time (patient) 10.7 s [facility] 9.1-12.0 5 international normalized ratio (INR) 1.0 [facility] 0.8-1.2 5 lipoprotein, beta, serum, point, quantitative, calculated 53 mg/dL [facility] 0-99 5 very low density lipoproteins 23 mg/dL [facility] 5-40 5 HDL cholesterol, serum 57 mg/dL [facility] >39 5 triglyceride, serum, random 113 mg/dL [facility] 0-149 5 cholesterol, serum 133 mg/dL [facility] 063-141 4070/02/1 5 calcium, serum 10.3 mg/dL [facility] 8.7-10.3 5 carbon dioxide, venous blood 24 mmol/L [facility] 20-29 5 chloride, serum 103 mmol/L [facility] 96-106 5 potassium, serum 4.9 mmol/L [facility] 3.5-5.2 5 sodium, serum 140 mmol/L [facility] [phone]/02/1 5 urea nitrogen/creatinin e ratio, serum 28 [facility] 12-28 5 eGFR if 78 mL/min/{1. 73_m2} [facility] >59 5 eGFR if not 67 mL/min/{1. 73_m2} [facility] >59 5 creatinine, serum 0.82 mg/dL [facility] 0.57-1.00 5 urea nitrogen, blood 23 mg/dL [facility] 8-27 5 blood glucose, random 111 mg/dL [facility] 65-99 High 5 basophil count, absolute 0.1 x10E3/uL [facility] 0.0-0.2 5 Eosinophil Absolute Count 0.1 X10E3/UL [facility] 0.0-0.4 5 monocyte count, blood, automated 0.6 X10E3/UL [facility] 0.1-0.9 5 lymphocyte count, blood, automated 0.4 X10E3/UL [facility] 0.7-3.1 Low 5 Absolute Neutrophils 6.4 X10E3/UL [facility] 1.4-7.0 5 basophils as percent of blood leukocytes 1 % [facility] Not Estab. 5 eosinophils as percent of blood leukocytes 2 % [facility] Not Estab. 5 monocytes as percent of blood leukocytes 7 % [facility] Not Estab. 5 lymphocytes as percent of blood leukocytes 6 % [facility] Not Estab. 5 neutrophils as percent of blood leukocytes 84 % [facility] Not Estab. 5 platelet count 215 X10E3/UL [facility] [phone]/02/1 5 red blood cell distribution width 13.2 % [facility] 12.3-15.4 5 mean corpuscular hemoglobin concentration, RBC 31.0 G/DL [facility] 31.5-35.7 Low 5 mean corpuscular hemoglobin, RBC 31.0 pg [facility] 26.6-33.0 5 mean corpuscular volume, RBC 100 fL [facility] 79-97 High 5 hematocrit, blood 41.9 % [facility] 34.0-46.6 5 hemoglobin, blood 13.0 g/dL [facility] 11.1-15.9 5 erythrocyte (RBC) count 4.20 X10E6/UL [facility] 3.77-5.28 5 leukocyte count, blood 7.5 X10E3/UL [facility] 3.4-10.8 HISTORY OF MEDICATION USE Medication Status Instructions Dates Provider Indications Com ments Jardiance 10 mg tablet active Take 1 tablet by mouth once a day Pablo Mckeon DO atorvastatin 40 mg tablet active Take 1 tablet by mouth once a day Ivis Mars Aspirin Childrens 81 mg tablet,chewable active Take 1 tablet by mouth once a day Pablo Mckeon DO Lasix 20 mg tablet active Take 1 tablet by mouth once a day Pablo Mckeon DO Eliquis 5 mg tablet completed Take 1 tablet by mouth twice a day - Pablo Mckeon DO trimethoprim 100 mg tablet active take a half at bedtime Rhoda Lin Jardiance 10 mg tablet completed Take 1 tablet by mouth once a day - Debra Molina Jardiance 10 mg tablet completed Take 1 tablet by mouth once a day - Debra Molina XARELTO 20 MG ORAL TABLET completed take one tablet once daily - Pablo Mckeon DO aspirin 81 mg tablet,delayed release (/EC) completed 1 once a day - Rhoda Lin 08/18/2019- XARELTO STARTER PACK 15 & 20 MG ORAL TABLET THERAPY PACK completed as directed - Pablo Mckeon DO LASIX 20 MG ORAL TABLET completed Take 1 Tab Daily as needed for fluid retention - Cristiana Hercules ASPIRIN EC 81 MG ORAL TABLET DELAYED RELEASE completed ONE TAB. DAILY - David Del Rio MD VITAMIN C TABLET completed Take 1 tablet by mouth once a day - Debra Molina biotin 1 mg tablet active Take 2 tablet by mouth once a day Debra Molina cyanocobalamin (vitamin B-12) 1,000 mcg tablet active Take 1 tablet by mouth once a day Cristiana Hrecules AMLODIPINE BESYLATE 10 MG ORAL TABLET completed take one tablet by mouth once daily - David Del Rio MD metoprolol tartrate 75 mg tablet active 1 tablet twice a day Pablo Mckeon DO Calcium 600 + D(3) 600 mg-5 mcg (200 unit) tablet completed Take 1 tablet by mouth once a day - Debra Molina ASPIRIN 81 MG ORAL TABLET (ASPIRIN) completed ONE TAB. DAILY - David Del Rio MD lisinopril 10 mg tablet active Take 1 tablet by mouth once a day Cristiana Hercules #90, 90 days supply, Prescribed by NATIVIDAD CALABRESE, Filled 06/11/2018 sodium bicarbonate 650 mg tablet active Take 1 tablet by mouth once a day Cristiana Hercules #90, 90 days supply, Filled 06/24/2018 pravastatin 20 mg tablet completed Take 1 tablet by mouth once a day - Ivis Mars #90, 90 days supply, Prescribed by MOHIT BARAHONA, Filled 06/24/2018 levothyroxine 100 mcg tablet active Take 1 tablet by mouth once a day Cristiana Hercules #30, 30 days supply, Prescribed by REUBEN TRACY, Filled 07/10/2018 tacrolimus 1 mg capsule active Take 1 capsule by mouth twice a day 2mg and 1mg evening Pablo Shlomo Mckeon DO #60, 30 days supply, Prescribed by NADEEM LAFLEUR, Filled 08/16/2018 ACYCLOVIR 200 MG CAPS active Take 1 capsule by mouth twice a day Cristiana Hercules #60, 30 days supply, Prescribed by NATIVIDAD CALABRESE, Filled 06/17/2018 prednisone 5 mg tablet active Take 1 tablet by mouth once a day Cristiana Pintoby #30, 30 days supply, Filled 07/22/2018 SOCIAL HISTORY Date Observation Value Provider smoking status Never smoker Pablo Shlomo Mckeon smoking status Never smoker Darlin Gibson and smoking status Never smoker Rhoda Lin smoking status Never smoker Rhoda Lin smoking status Never smoker Debra todd smoking status Never smoker Debra todd smoking status Never smoker Darlin Gibson and smoking status Never smoker Debra todd smoking status Never smoker Shani cesar smoking status Never smoker Camille hernandez smoking status Never smoker Cristiana Diomedes social history E&M S moking History: Thomas madrid has never smoked. David Del Rio MD social history revie wed E&M reviewed - no changes required David Del Rio MD smoking status Never smoker Cristianaeugene Hercules smoking status Never smoker Cristiana Diomedes smoking status Never smoker Shani Hernandez e FUNCTIONAL STATUS Date Observation Value Provider HRA, CV Assess/Plan, Angina (inactive) Management Plan continue current therapy Pablo Shlomo Mckeon DO HRA, CV Assess/Plan, Angina (inactive) Management Plan continue current therapy Pablo Shlomo Mckeon DO HRA, CV Assess/Plan, Angina (inactive) Management Plan continue current therapy Pablo Shlomo Singhra MALDONADO HRA, CV Assess/Plan, Angina (inactive) Management Plan continue current therapy Pabol Mckeon DO HRA, CV Assess/Plan, Angina (inactive) Management Plan continue current therapy David Del Rio MD HRA, CV Assess/Plan, Angina (inactive) Management Plan continue current therapy Pablo Mckeon DO HRA, CV Assess/Plan, Angina (inactive) Management Plan continue current therapy Pablo Mckeon DO HRA, CV Assess/Plan, Angina (inactive) Management Plan continue current therapy Pablo Shlomo Mckeon DO INSURANCE PROVIDERS Payer name Policy type / Coverage type [place] [employer] party ID [id number] [place] MEDICARE PART B Medicare [id number] ADVANCE DIRECTIVES Name Date 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 w as on jardiance but unable to afford so now off. l ow na diet. r estarted lasix summer i f lasix doesn't help will retry jardiance which she is comfortable with. currently clinically improved on lasix 20. Pablo Mckeon [id number],C, n ow on lasix p a on rhc 09/21 Pablo Mckeon [id number],C, m ild on cath 08/24 n ml lvef Pablo Mckeon [id number],C, a t goal LDL < 70 Her updated medication list for this problem includes: Pravastatin 20 Mg Tablet (Pravastatin) ..... Take 1 tablet by mouth once a day Pablo Mckeon [id number],C,l eft moderate 02/25 r epeat cxr post diuresis i f still present may need thoracentesis Pablo Mckeon [id number],C, H er updated medication list for this problem includes: Lasix 20 Mg Tablet (Furosemide) ..... Take 1 tablet by mouth once a day Metoprolol Tartrate 75 Mg Tablet (Metoprolol tartrate) ..... 1 tablet twice a day Lisinopril 10 Mg Tablet (Lisinopril) ..... Take 1 tablet by mouth once a day BP today: 127/68 P rior BP: 135/73 (02/05/2023) Labs Reviewed: C reat: 0.93 (06/28/2019) C hol: 125 (06/28/2019) HDL: 62 (06/28/2019) [facility] [id number],[facility], n ow on lasix p a 42 on rhc 09/21 [facility] Shlomo Mckeon [id number],C, [facility] Shlomo [facility] [id number],C, a t goal LDL < 70 Her updated medication list for this problem includes: Pravastatin 20 Mg Tablet (Pravastatin) ..... Take 1 tablet by mouth once a day Pabloramón Mckeon [id number],C, Her updated medication list for this problem includes: Metoprolol Tartrate 75 Mg Tablet (Metoprolol tartrate) ..... 1 tablet twice a day Lisinopril 10 Mg Tablet (Lisinopril) ..... Take 1 tablet by mouth once a day BP today: 135/73 P rior BP: 160/84 (10/09/2022) Labs Reviewed: C reat: 0.93 (06/28/2019) C hol: 125 (06/28/2019) HDL: 62 (06/28/2019) Pablo Shlomo Mckeon [id number],C, m ild on cath 08/24 n ml lvef [facility] Shlomo [facility] [id number],C, n yha2 s table volume status i n past struggles to take diuretic d/t incontinence w as on jardiance but unable to afford so now off. l ow na diet. i f lasix doesn't help will retry jardiance which she is comfortable with. The following medications were removed from the medication list: Aspirin 81 Mg Tablet,delayed Release (dr/ec) (Aspirin) ..... 1 once a day Her updated medication list for this problem includes: Lasix 20 Mg Tablet (Furosemide) ..... Take 1 tablet by mouth once a day Metoprolol Tartrate 75 Mg Tablet (Metoprolol tartrate) ..... 1 tablet twice a day Lisinopril 10 Mg Tablet (Lisinopril) ..... 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 nonocclusive on fu duplex 11/2020 h ad persistent swelling, better after dr morelos worked on it at [place] (fistulogram with user acceptance tester) b ack on oac eliquis due to dvt again in 23 range. Pablo Shlomo Mckeon [id number],C, m ild on angio 09/21 Pabloterrell Mckeon [id number],C, n yha2 s table volume status s truggles to take diuretic d/t incontinence w as on jardiance but unable to afford so now off. will get back on if no other option. l ow na diet. Her updated medication list for this problem includes: Metoprolol Tartrate 75 Mg Tablet (Metoprolol tartrate) ..... 1 tablet twice a day Lisinopril 10 Mg Tablet (Lisinopril) ..... Take 1 tablet by mouth once a day Aspirin 81 Mg Tablet,delayed Release (dr/ec) (Aspirin) ..... 1 once a day Pabloterrell Mckeon [id number],C, H er updated medication list for this problem includes: Metoprolol Tartrate 75 Mg Tablet (Metoprolol tartrate) ..... 1 tablet twice a day Lisinopril 10 Mg Tablet (Lisinopril) ..... Take 1 tablet by mouth once a day Aspirin 81 Mg Tablet,delayed Release (dr/ec) (Aspirin) ..... 1 once a day BP today: 160/84 P rior BP: 130/80 (04/08/2022) Labs Reviewed: C reat: 0.93 (06/28/2019) C hol: 125 (06/28/2019) HDL: 62 (06/28/2019) [facility] [id number],C, a t goal LDL < 70 H er updated medication list for this problem includes: Pravastatin Sodium 20 Mg Oral Tablet (Pravastatin sodium) ..... Take one tablet by mouth once daily C HOL: 125 (06/28/2019) HDL: 62 (06/28/2019) [facility] [id number],C, n ow on lasix p a on rhc 09/21 [facility] [id number],C, m ild on cath 08/24 n ml lvef [facility] [id number],C, m ild on angio 09/21 [facility] [id number],C, a t goal LDL < 70 H er updated medication list for this problem includes: Pravastatin Sodium 20 Mg Oral Tablet (Pravastatin sodium) ..... 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 off oac now n onocclusive on fu duplex 11/2020 h ad persistent swelling, better after dr morelos worked on it at [place] (fistulogram with user acceptance tester) Pablo Mckeon [id number],C, H er updated medication list for this problem includes: Metoprolol Tartrate 75 Mg Tablet (Metoprolol tartrate) ..... 1 tablet twice a day Lisinopril 10 Mg Tablet (Lisinopril) ..... Take 1 tablet by mouth once a day Aspirin 81 Mg Tablet,delayed Release (/ec) (Aspirin) ..... 1 once a day BP today: 130/80 P rior BP: 165/80 (01/07/2022) Labs Reviewed: C reat: 0.93 (06/28/2019) C hol: 125 (06/28/2019) HDL: 62 (06/28/2019) Pablo Mckeon [id number],C, m ild on cath 08/24 n ml lvef Pabloramón Keenan [facility] [id number],C, n yha2 s table volume status s truggles to take diuretic d/t incontinence on jardiance 10mg once a day, improved sx will cont to monitor. Pablo Mckeon [id number],C, n yha2 s table volume status s truggles to take diuretic d/t incontinence on jardiance 10mg once a day, improved sx will cont to monitor. await bmp. Pablo Mckeon [id number],C, a t goal LDL < 70 H er updated medication list for this problem includes: Pravastatin Sodium 20 Mg Oral Tablet (Pravastatin sodium) ..... Take one tablet by mouth once daily C HOL: 125 (06/28/2019) HDL: 62 (06/28/2019) Pablo Mckeon [id number],C, H er updated medication list for this problem includes: Metoprolol Tartrate 50 Mg Tablet (Metoprolol tartrate) ..... 1 tablet twice a day Lisinopril 10 Mg Tablet (Lisinopril) ..... Take 1 tablet by mouth once a day Aspirin 81 Mg Tablet,delayed Release (dr/ec) (Aspirin) ..... 1 once a day Metoprolol Tartrate 25 Mg Tablet (Metoprolol tartrate) ..... 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 off oac now n onocclusive on fu duplex 11/2020 h ad persistent swelling, better after dr morelos worked on it at [place] (fistulogram with user acceptance tester) Pablo Keenan [facility] [id number],C, a t goal LDL < 70 H er updated medication list for this problem includes: Pravastatin Sodium 20 Mg Oral Tablet (Pravastatin sodium) ..... Take one tablet by mouth once daily C HOL: 125 (06/28/2019) HDL: 62 (06/28/2019) Pablo Mckeon [id number],C, H er updated medication list for this problem includes: Metoprolol Tartrate 50 Mg Tablet (Metoprolol tartrate) ..... 1 tablet twice a day Lisinopril 10 Mg Tablet (Lisinopril) ..... Take 1 tablet by mouth once a day Aspirin 81 Mg Tablet,delayed Release (dr/ec) (Aspirin) ..... 1 once a day Metoprolol Tartrate 25 Mg Tablet (Metoprolol tartrate) ..... 1 tablet twice a day BP today: 165/85 P rior BP: 140/70 (11/20/2020) Labs Reviewed: C reat: 0.93 (06/28/2019) C hol: 125 (06/28/2019) HDL: 62 (06/28/2019) [facility] [id number],C, n ow on lasix p a on rhc 09/21 [facility] [id number],C, m ild on cath 08/24 n ml lvef [facility] [id number],C, n yha2 s table volume status s truggles to take diuretic d/t incontinence try jardiance 10mg once a day and see me back 1 mo [facility] [id number],C, m ild on angio 09/21 [facility] Cardiology: H er updated medication list for this problem includes: Aspirin Childrens 81 Mg Tablet,chewable (Aspirin) ..... Take 1 tablet by mouth once a day Lasix 20 Mg Tablet (Furosemide) ..... Take 1 tablet by mouth once a day Metoprolol Tartrate 75 Mg Tablet (Metoprolol tartrate) ..... 1 tablet twice a day Lisinopril 10 Mg Tablet (Lisinopril) ..... Take 1 tablet by mouth once a day BP today: 165/85 P rior BP: 110/70 (12/10/2023) Labs Reviewed: C reat: 0.93 (06/28/2019) C hol: 125 (06/28/2019) HDL: 62 (06/28/2019) LDL: 49 (06/28/2019) T (06/28/2019) Pablo Mckeon Cardiology: n ow on lasix p a 42/22 on rhc 09/21 Pablo Mckeon Cardiology: m ild on cath 08/24 n ml lvef Pablo Mckeon Cardiology: n yha2 volume status i n past struggles to take diuretic d/t incontinence but does well on lasix daily now, may de-escalalte to prn. w as on jardiance but unable to afford so now off. l ow na diet. r estarted lasix summer g et back on jardiance bc can't take lasix daily This visit has been a part of the consistent, comprehensive, and ongoing management of the chronic medical condition(s) listed above for patient. 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 o n atorva 40 (instead of prava) w as on short term plavix (CHANCE trial), now aspirin monotherpay Had a small cva in 07/29, hospitalized at [place]. Given short term plavix, now on aspirin 81 monotherpay. 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 o n atorva 40 (instead of prava) w as on short term plavix (CHANCE trial), no aspirin monotherpay I spent >40 minutes of direct professional time reviewing previous records, test results, patient histroy and review of systems, physical examination, formulating a plan and providing written correspondance to physicians on the care team. Medical decision making is complex due to the number of high acuity diagnoses and test review. Pablo Mckeon Cardiology: a t goal LDL < 70 L abs 07/29: LDL 66 The following medications were removed from the medication list: Pravastatin 20 Mg Tablet (Pravastatin) ..... Take 1 tablet by mouth once a day Her updated medication list for this problem includes: Atorvastatin 40 Mg Tablet (Atorvastatin) ..... Take 1 tablet by mouth once a day Pabloramón Mckeon Cardiology:remains o n tacrolimus/bactrim prophylaxis [facility]: H er updated medication list for this problem includes: Aspirin Childrens 81 Mg Tablet,chewable (Aspirin) ..... Take 1 tablet by mouth once a day Lasix 20 Mg Tablet (Furosemide) ..... Take 1 tablet by mouth once a day Metoprolol Tartrate 75 Mg Tablet (Metoprolol tartrate) ..... 1 tablet twice a day Lisinopril 10 Mg Tablet (Lisinopril) ..... Take 1 tablet by mouth once a day BP today: 110/70 P rior BP: 119/77 (06/11/2023) This visit has been a part of the consistent, comprehensive, and ongoing management of the chronic medical condition(s) listed above for patient. Labs Reviewed: C reat: 0.93 (06/28/2019) C hol: 125 (06/28/2019) HDL: 62 (06/28/2019) LDL: 49 (06/28/2019) T (06/28/2019) [facility] Shlomo Mckeon Cardiology: n ow on lasix p a 42/22 on rhc 09/21 [facility] Shlomo Mckeon Cardiology: m ild on cath 08/24 n ml lvef [facility] Shlomo Mckeon Cardiology: l eft moderate 02/25 r epeat cxr 03/02 improvement p ersistent moderate 06/27 cxr s mall on cxr 07/29 l asix daily Pabloramón Mckeon Cardiology: n yha2 volume status i n past struggles to take diuretic d/t incontinence but does well on lasix daily now, may de-escalalte to prn. w as on jardiance but unable to afford so now off. l ow na diet. r estarted lasix summer i f lasix doesn't help will retry jardiance which she is comfortable with. currently clinically improved on lasix 20 ok to not take on days when out and about. This visit has been a part of the consistent, comprehensive, and ongoing management of the chronic medical condition(s) listed above for patient. Pablo Mckeon DO Cardiology: H er updated medication list for this problem includes: Lasix 20 Mg Tablet (Furosemide) ..... Take 1 tablet by mouth once a day Metoprolol Tartrate 75 Mg Tablet (Metoprolol tartrate) ..... 1 tablet twice a day Lisinopril 10 Mg Tablet (Lisinopril) ..... Take 1 tablet by mouth once a day BP today: 119/77 P rior BP: 127/68 (03/02/2023) Labs Reviewed: C reat: 0.93 (06/28/2019) C hol: 125 (06/28/2019) HDL: 62 (06/28/2019) LDL: 49 (06/28/2019) T (06/28/2019) Pabloterrell Mckeon Cardiology: a t goal LDL < 70 Her updated medication list for this problem includes: Pravastatin 20 Mg Tablet (Pravastatin) ..... Take 1 tablet by mouth once a day Pablo Shlomo Mike MALDONADO Cardiology: n ow on lasix p a 42/ on rhc 09/21 Pablo Shlomo Mckeon DO Cardiology: n yha2 volume status i n past struggles to take diuretic d/t incontinence but does well on lasix daily now, may de-escalalte to prn. w as on jardiance but unable to afford so now off. l ow na diet. r estarted lasix summer i f lasix doesn't help will retry jardiance which she is comfortable with. currently clinically improved on lasix 20. 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 n onocclusive on fu duplex 11/2020 h ad persistent swelling, better after dr morelos worked on it at [place] (fistulogram with user acceptance tester) b ack on oac eliquis due to dvt again in 23 range. ok to stop eliquis. to aspirin daliy. Pablo Mckeon Cardiology: l eft moderate 02/25 r epeat cxr 03/02 improvement r epeat again today Pablo Mckeon Cardiology: n yha2 volume status i n past struggles to take diuretic d/t incontinence but does well on lasix daily now, may de-escalalte to prn. w as on jardiance but unable to afford so now off. l ow na diet. r estarted lasix summer i f lasix doesn't help will retry jardiance which she is comfortable with. currently clinically improved on lasix 20. Pablo Mckeon Cardiology: n ow on lasix p a on rhc 09/21 Pablo Mckeon Cardiology: m ild on cath 08/24 n ml lvef Pabloramón Mckeon Cardiology: a t goal LDL < 70 Her updated medication list for this problem includes: Pravastatin 20 Mg Tablet (Pravastatin) ..... Take 1 tablet by mouth once a day Pablo Mckeon Cardiology:left mode rate 02/25 r epeat cxr post diuresis i f still present may need thoracentesis Pablo Mckeon Cardiology: H er updated medication list for this problem includes: Lasix 20 Mg Tablet (Furosemide) ..... Take 1 tablet by mouth once a day Metoprolol Tartrate 75 Mg Tablet (Metoprolol tartrate) ..... 1 tablet twice a day Lisinopril 10 Mg Tablet (Lisinopril) ..... Take 1 tablet by mouth once a day BP today: 127/68 P rior BP: 135/73 (02/05/2023) Labs Reviewed: C reat: 0.93 (06/28/2019) C hol: 125 (06/28/2019) HDL: 62 (06/28/2019) Pablo Mckeon Cardiology: n ow on lasix p a 42/22 on rhc 09/21 [facility] Shlomo Mckeon Cardiology [facility] Shlomo maher Cardiology: a t goal LDL < 70 Her updated medication list for this problem includes: Pravastatin 20 Mg Tablet (Pravastatin) ..... Take 1 tablet by mouth once a day [facility]: Her updated medication list for this problem includes: Metoprolol Tartrate 75 Mg Tablet (Metoprolol tartrate) ..... 1 tablet twice a day Lisinopril 10 Mg Tablet (Lisinopril) ..... Take 1 tablet by mouth once a day BP today: 135/73 P rior BP: 160/84 (10/09/2022) Labs Reviewed: C reat: 0.93 (06/28/2019) C hol: 125 (06/28/2019) HDL: 62 (06/28/2019) [facility]: m ild on cath 08/24 n ml lvef [facility] Shlomo [facility] Cardiology: n yha2 s table volume status i n past struggles to take diuretic d/t incontinence w as on jardiance but unable to afford so now off. l ow na diet. i f lasix doesn't help will retry jardiance which she is comfortable with. The following medications were removed from the medication list: Aspirin 81 Mg Tablet,delayed Release (dr/ec) (Aspirin) ..... 1 once a day Her updated medication list for this problem includes: Lasix 20 Mg Tablet (Furosemide) ..... Take 1 tablet by mouth once a day Metoprolol Tartrate 75 Mg Tablet (Metoprolol tartrate) ..... 1 tablet twice a day Lisinopril 10 Mg Tablet (Lisinopril) ..... 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 n onocclusive on fu duplex 11/2020 h ad persistent swelling, better after dr morelos worked on it at [place] (fistulogram with user acceptance tester) b ack on oac eliquis due to dvt again in 23 range. Pabloterrell Mckeon Cardiology: m ild on angio 09/21 Pablo Shlomo Mckeon Cardiology: n yha2 s table volume status s truggles to take diuretic d/t incontinence w as on jardiance but unable to afford so now off. will get back on if no other option. l ow na diet. Her updated medication list for this problem includes: Metoprolol Tartrate 75 Mg Tablet (Metoprolol tartrate) ..... 1 tablet twice a day Lisinopril 10 Mg Tablet (Lisinopril) ..... Take 1 tablet by mouth once a day Aspirin 81 Mg Tablet,delayed Release (dr/ec) (Aspirin) ..... 1 once a day Pablo Mckeon Cardiology: H er updated medication list for this problem includes: Metoprolol Tartrate 75 Mg Tablet (Metoprolol tartrate) ..... 1 tablet twice a day Lisinopril 10 Mg Tablet (Lisinopril) ..... Take 1 tablet by mouth once a day Aspirin 81 Mg Tablet,delayed Release (dr/ec) (Aspirin) ..... 1 once a day BP today: 160/84 P rior BP: 130/80 (04/08/2022) Labs Reviewed: C reat: 0.93 (06/28/2019) C hol: 125 (06/28/2019) HDL: 62 (06/28/2019) Pabloterrell Mckeon Cardiology: a t goal LDL < 70 H er updated medication list for this problem includes: Pravastatin Sodium 20 Mg Oral Tablet (Pravastatin sodium) ..... Take one tablet by mouth once daily C HOL: 125 (06/28/2019) HDL: 62 (06/28/2019) Pablo Mckeon Cardiology: n ow on lasix p a 42 on rhc 09/21 Pablo Mckeon Cardiology: m ild on cath 08/24 n ml lvef [facility] Shlomo Mckeon Cardiology: m ild on angio 09/21 [facility] Shlomo Mckeon Cardiology: a t goal LDL < 70 H er updated medication list for this problem includes: Pravastatin Sodium 20 Mg Oral Tablet (Pravastatin sodium) ..... 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 off oac now n onocclusive on fu duplex 11/2020 h ad persistent swelling, better after dr morelos worked on it at [place] (fistulogram with user acceptance tester) Pablo Shlomo Mckeon Cardiology: H er updated medication list for this problem includes: Metoprolol Tartrate 75 Mg Tablet (Metoprolol tartrate) ..... 1 tablet twice a day Lisinopril 10 Mg Tablet (Lisinopril) ..... Take 1 tablet by mouth once a day Aspirin 81 Mg Tablet,delayed Release (dr/ec) (Aspirin) ..... 1 once a day BP today: 130/80 P rior BP: 165/80 (01/07/2022) Labs Reviewed: C reat: 0.93 (06/28/2019) C hol: 125 (06/28/2019) HDL: 62 (06/28/2019) Pabloramón Mckeon Cardiology: m ild on cath 08/24 n ml lvef Pabloramón Mckeon Cardiology: n yha2 s table volume status s truggles to take diuretic d/t incontinence on jardiance 10mg once a day, improved sx will cont to monitor. Pabloramón Mckeon Cardiology: n yha2 s table volume status s truggles to take diuretic d/t incontinence on jardiance 10mg once a day, improved sx will cont to monitor. await bmp. [facility]: a t goal LDL < 70 H er updated medication list for this problem includes: Pravastatin Sodium 20 Mg Oral Tablet (Pravastatin sodium) ..... Take one tablet by mouth once daily C HOL: 125 (06/28/2019) HDL: 62 (06/28/2019) [facility] Shlomo Mckeon Cardiology: H er updated medication list for this problem includes: Metoprolol Tartrate 50 Mg Tablet (Metoprolol tartrate) ..... 1 tablet twice a day Lisinopril 10 Mg Tablet (Lisinopril) ..... Take 1 tablet by mouth once a day Aspirin 81 Mg Tablet,delayed Release (dr/ec) (Aspirin) ..... 1 once a day Metoprolol Tartrate 25 Mg Tablet (Metoprolol tartrate) ..... 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 off oac now n onocclusive on fu duplex 11/2020 h ad persistent swelling, better after dr morelos worked on it at [place] (fistulogram with user acceptance tester) Pablo Mckeon Cardiology: a t goal LDL < 70 H er updated medication list for this problem includes: Pravastatin Sodium 20 Mg Oral Tablet (Pravastatin sodium) ..... Take one tablet by mouth once daily C HOL: 125 (06/28/2019) HDL: 62 (06/28/2019) Pabloramón Mckeon Cardiology: H er updated medication list for this problem includes: Metoprolol Tartrate 50 Mg Tablet (Metoprolol tartrate) ..... 1 tablet twice a day Lisinopril 10 Mg Tablet (Lisinopril) ..... Take 1 tablet by mouth once a day Aspirin 81 Mg Tablet,delayed Release (dr/ec) (Aspirin) ..... 1 once a day Metoprolol Tartrate 25 Mg Tablet (Metoprolol tartrate) ..... 1 tablet twice a day BP today: 165/85 P rior BP: 140/70 (11/20/2020) Labs Reviewed: C reat: 0.93 (06/28/2019) C hol: 125 (06/28/2019) HDL: 62 (06/28/2019) Pabloramón Mckeon Cardiology: n ow on lasix p a on rhc 09/21 [facility] Shlomo Mike Cardiology: m ild on cath 08/24 n ml lvef [facility] Shlomo [facility] Cardiology: n yha2 s table volume status s truggles to take diuretic d/t incontinence try jardiance 10mg once a day and see me back 1 mo Pablo Shlomo Mckeon Cardiology: m ild on angio 09/21 [facility] Shlomo Mckeon Cardiology: was found on venogram to have 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 off oac now n onocclusive on fu duplex 11/2020 h as persistent swelling again-needs fistulogram, dr morelos used to do whom she liked rec she see him again. Pabloramón Mckeon Cardiology: n ow on lasix p a 42 on c 09/21 Pablo Shlomo Mckeon Cardiology: H er updated medication list for this problem includes: Aspirin Ec 81 Mg Oral Tablet Delayed Release (Aspirin) ..... One daily Metoprolol Tartrate 25 Mg Oral Tablet (Metoprolol tartrate) ..... One tab. twice daily Lisinopril 10 Mg Oral Tablet (Lisinopril) ..... Take one tablet by mouth once daily Metoprolol Tartrate 50 Mg Oral Tablet (Metoprolol tartrate) ..... One tab. twice daily BP today: 140/70 P rior BP: 144/73 (01/04/2020) Labs Reviewed: C reat: 0.93 (06/28/2019) C hol: 125 (06/28/2019) HDL: 62 (06/28/2019) [facility] Shlomo [facility] Cardiology: n yha2 s table volume status s truggles to take diuretic d/t incontinence [facility]: m ild on cath 08/24 n [facility] Cardiology: m ild on angio 09/21 [facility] Shlomo [facility] Cardiology: n ow on lasix p a on c 09/21 [facility] Shlomo [facility] Cardiology: H er updated medication list for this problem includes: Aspirin Ec 81 Mg Oral Tablet Delayed Release (Aspirin) ..... Hold while on xarelto Metoprolol Tartrate 25 Mg Oral Tablet (Metoprolol tartrate) ..... One tab. twice daily Lisinopril 10 Mg Oral Tablet (Lisinopril) ..... Take one tablet by mouth once daily Metoprolol Tartrate 50 Mg Oral Tablet (Metoprolol tartrate) ..... One tab. twice daily BP today: 144/73 P rior BP: 130/80 (07/26/2019) Labs Reviewed: C reat: 0.93 (06/28/2019) C hol: 125 (06/28/2019) HDL: 62 (06/28/2019) Pabloramón Mckeon Cardiology: a t goal LDL < 70 H er updated medication list for this problem includes: Pravastatin Sodium 20 Mg Oral Tablet (Pravastatin sodium) ..... 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 off oac now Pabloterrell Keenan [facility] Cardiology: a t goal LDL < 70 H er updated medication list for this problem includes: Pravastatin Sodium 20 Mg Oral Tablet (Pravastatin sodium) ..... Take one tablet by mouth once daily C HOL: 125 (06/28/2019) HDL: 62 (06/28/2019) [facility] Shlomo [facility] Cardiology: H er updated medication list for this problem includes: Metoprolol Tartrate 25 Mg Oral Tablet (Metoprolol tartrate) ..... One tab. twice daily Lisinopril 10 Mg Oral Tablet (Lisinopril) ..... Take one tablet by mouth once daily Metoprolol Tartrate 50 Mg Oral Tablet (Metoprolol tartrate) ..... One tab. twice daily BP today: 130/80 P rior BP: 120/80 (06/30/2019) Labs Reviewed: C reat: 0.93 (06/28/2019) C hol: 125 (06/28/2019) HDL: 62 (06/28/2019) [facility] Cardiology: n ow on lasix p a on rhc 09/21 Pablo Mckeon DO Cardiology: n yha2 s table volume status s truggles to take diuretic d/t incontinence c onsidering hfpef trial wants to hold off deliver would prefer to go back on lasix once bladder issues better. 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 will recheck duplex stop oac if clot gone Pabloramón Mckeon Cardiology:at goal L DL < 70 H er updated medication list for this problem includes: Pravastatin Sodium 20 Mg Oral Tablet (Pravastatin sodium) ..... Take one tablet by mouth once daily C HOL: 125 (06/28/2019) HDL: 62 (06/28/2019) Pabloramón Mckeon Cardiology: H er updated medication list for this problem includes: Metoprolol Tartrate 25 Mg Oral Tablet (Metoprolol tartrate) ..... One tab. twice daily Lisinopril 10 Mg Oral Tablet (Lisinopril) ..... Take one tablet by mouth once daily Metoprolol Tartrate 50 Mg Oral Tablet (Metoprolol tartrate) ..... One tab. twice daily BP today: 120/80 P rior BP: 142/80 (06/27/2019) Labs Reviewed: C reat: 0.93 (06/28/2019) C hol: 125 (06/28/2019) HDL: 62 (06/28/2019) Pabloramón Mckeon Cardiology: n ow on lasix p a on rhc 09/21 Pablo Mckeon Cardiology: n yha2 s table volume status s truggles to take diuretic d/t incontinence c onsidering hfpef trial wants to hold off deliver would prefer to go back on lasix once bladder issues better. Pablo Shlomo Mike MALDONADO Cardiology: m ild on cath 08/24 n ml lvef [place] Mckeon Cardiology: m ild on angio 09/21 Pablo Shlomo Mike MALDONADO Cardiology:on oac xa relto 3 months but due to discomort and swelling will recommend a venogram to r/o more central obstruction. Pablo Mckeon DO Cardiology David Del Rio MD Cardiology: m ild on angio 09/21 David Del Rio MD Cardiology: H er updated medication list for this problem includes: Pravastatin Sodium 20 Mg Oral Tablet (Pravastatin sodium) ..... Take one tablet by mouth once daily C HOL: 133 (08/20/2018) HDL: 57 (08/20/2018) David Del Rio MD Cardiology:LEFT ARM LIKELY DUE T O VEINOUS STENOIS David Del Rio MD Cardiology: m ild on cath 08/24 n ml lvef David Del Rio MD Cardiology David Del Rio MD Cardiology:nyha2 s table volume status s truggles to take diuretic d/t incontinence c onsidering hfpef trial wants to hold off deliver would prefer to go back on lasix once bladder issues better. Pablo Mckeon DO Cardiology: T he following medications were removed from the medication list: Lasix 20 Mg Oral Tablet (Furosemide) ..... Take 1 tab daily as needed for fluid retention Her updated medication list for this problem includes: Aspirin Ec 81 Mg Oral Tablet Delayed Release (Aspirin) ..... One tab. daily Amlodipine Besylate 10 Mg Oral Tablet (Amlodipine besylate) ..... Take one tablet by mouth once daily Metoprolol Tartrate 25 Mg Oral Tablet (Metoprolol tartrate) ..... One tab. twice daily Lisinopril 10 Mg Oral Tablet (Lisinopril) ..... Take one tablet by mouth once daily Metoprolol Tartrate 50 Mg Oral Tablet (Metoprolol tartrate) ..... One tab. twice daily BP today: 110/70 P rior BP: 132/80 (09/30/2018) Labs Reviewed: C reat: 0.82 (08/20/2018) C hol: 133 (08/20/2018) HDL: 57 (08/20/2018) [facility] n [facility] on lasix p a 42/22 on rhc 09/21 [facility] Cardiology: m ild on cath 08/[facility]: [facility]:stable vo lume status s truggles to take diuretic d/t incontinence c onsidering emperor preserved or other research wants to wait for daughter to get better who injured her leg & #13;Her updated medication list for this problem includes: Lasix 20 Mg Oral Tablet (Furosemide) ..... Take 1 tab daily Aspirin Ec 81 Mg Oral Tablet Delayed Release (Aspirin) ..... One tab. daily Amlodipine Besylate 10 Mg Oral Tablet (Amlodipine besylate) ..... Take one tablet by mouth once daily Metoprolol Succinate Er 25 Mg Oral Tablet Extended Release 24 Hour (Metoprolol succinate) ..... Take one tablet by mouth once daily Lisinopril 10 Mg Oral Tablet (Lisinopril) ..... Take one tablet by mouth once daily Metoprolol Tartrate 50 Mg Oral Tablet (Metoprolol tartrate) ..... Take one tablet by mouth once daily Pablo [facility] Cardiology: o n immunosuppress[facility]ants [facility]:LDL 53 in 08/24 H er updated medication list for this problem includes: Pravastatin Sodium 20 Mg Oral Tablet (Pravastatin sodium) ..... Take one tablet by mouth once daily [facility] Cardiology: H er updated medication list for this problem includes: Lasix 20 Mg Oral Tablet (Furosemide) ..... Take 1 tab daily Aspirin Ec 81 Mg Oral Tablet Delayed Release (Aspirin) ..... One tab. daily Amlodipine Besylate 10 Mg Oral Tablet (Amlodipine besylate) ..... Take one tablet by mouth once daily Metoprolol Succinate Er 25 Mg Oral Tablet Extended Release 24 Hour (Metoprolol succinate) ..... Take one tablet by mouth once daily Lisinopril 10 Mg Oral Tablet (Lisinopril) ..... Take one tablet by mouth once daily Metoprolol Tartrate 50 Mg Oral Tablet (Metoprolol tartrate) ..... Take one tablet by mouth once daily BP today: 132/80 P rior BP: 142/72 (08/19/2018) Labs Reviewed: C reat: 0.82 (08/20/2018) C hol: 133 (08/20/2018) HDL: 57 (08/20/2018) Pablo [facility] Cardiology:now on la six p a on rhc 09/21 Pablo [facility] Cardiology:mild on angio 09/21 Pr adeep [facility] Cardiology:mild on c ath 08/24 n ml lvef [facility] Cardiology:moderate cad up to 40 % cath 2009 cne [facility] Cardiology:on immunosuppresssant s Pablo Shl[facility] Cardiology: H er updated medication list for this problem includes: Amlodipine Besylate 10 Mg Oral Tablet (Amlodipine besylate) ..... Take one tablet by mouth once daily Metoprolol Succinate Er 25 Mg Oral Tablet Extended Release 24 Hour (Metoprolol succinate) ..... Take one tablet by mouth once daily Lisinopril 10 Mg Oral Tablet (Lisinopril) ..... Take one tablet by mouth once daily Metoprolol Tartrate 50 Mg Oral Tablet (Metoprolol tartrate) ..... Take one tablet by mouth once daily BP today: 142/72 Pablo [facility] Cardiology: H er updated medication list for this problem includes: Pravastatin Sodium 20 Mg Oral Tablet (Pravastatin sodium) ..... Take one tablet by mouth once daily Pablo Shlomo Mike Cardiology:cardiac cath will be done. Pablo Shl[facility] Cardiology:unclear e tiology w ill recommend cath for hemodynamic assesment. Pablo Mckeon DO Date Name X-Ray, Chest 2 View TSH, free T4, total T3 PROTHROMBIN TIME WIT H INR CBC (INCLUDES DIFF/P LT) PROBNP, N TERMINAL BASIC METABOLIC PANE L W/EGFR Complete Echo X-Ray, Chest - Routi ne X-Ray, Chest - Routi ne X-Ray, Chest - Routi ne PROBNP, N TERMINAL BASIC METABOLIC PANE L W/EGFR Complete Echo Complete Echo Carotid Duplex Bilat eral PROBNP, N TERMINAL BASIC METABOLIC PANE L W/EGFR Complete Echo Venous Doppler Unila teral LUE Arterial Duplex LUE Venous Doppler Unila teral LUE PROTHROMBIN TIME WIT H INR LIPID PANEL CBC (INCLUDES DIFF/P LT) BASIC METABOLIC PANE L W/EGFR PROTHROMBIN TIME WIT H INR LIPID PANEL CBC (INCLUDES DIFF/P LT) BASIC METABOLIC PANE L W/EGFR CXR- PA/Lat Venous Doppler Unila teral LUE Complete Echo Arterial Duplex Bi-L ower EX X-Ray, Chest - Routi ne PROTHROMBIN TIME WIT H INR LIPID PANEL CBC (INCLUDES DIFF/P LT) HEMOGLOBIN A1c PROBNP, N TERMINAL BASIC METABOLIC PANE L W/EGFR Cardiac Cath - L/R- [facility] HISTORY OF PROCEDURES Procedure Date Procedure Name Provider Procedure Notes S tatus Complex e/m visit ad d on Pablo Shlomo Mike DO completed Complex e/m visit ad d on Pablo Shlomo Mike DO completed EKG Pablo Shlomo gunnar DO completed EKG Pablo Shlomo gunnar DO completed EKG Pablo Shlomo gunnar DO completed EKG Pablo Shlomo gunnar DO completed EKG Pablo Shlomo gunnar DO completed EKG Pablo Shlomo gunnar DO completed EKG Pablo Shlomo gunnar DO completed EKG Pablo Shlomo gunnar DO completed EKG Pablo Shlomo gunnar DO completed EKG Pablo Shlomo gunnar DO completed EKG Pablo Shlomo gunnar DO completed EKG Pablo Shlomo gunnar DO completed EKG Pablo Shlomo gunnar DO completed
--- OUTSIDE RECORDS SUMMARY | 2024-06-27 01:50 | XMS_ITS | Encounter Summary ---
Author Organization [facility] Address [address] [place] [address] Phone Care Team Providers Care Echo Tech Name Role Phone Regina Contreras RN Unavailable [phone] Charly Biggs MD Unavailable [phone] Fadi Clemons DO Primary Care Provider [phone] Reason for Referral * Consultation (Urgent) - Authorized Specialty Diagnoses / Procedures Referred By Jairo t Referred To Contact Dermatology Diagnoses Skin lesion of left lower extremity Layla Malloy MD [address] [facility] [address] [place] [address] Phone: tel: fax: [facility] Dermatology [address] [facility] [address] [place] [address] Phone: tel: fax: Referral ID Status Reason Start Date Expiration Date Visits Requested Visits Authorized [id number] Authorized Specialty Services Required 4 06/24/2025 1 1 Question Answer Please select the performing region: [facility] (All Locations) [[id number]] Please select the performing department: [facility] [id number] [[id number]] # of visits: 1 Comments Post kidney transplant patient, with lesions on the left leg that are recurrent. Please evaluate for possible infection vs other lesions. IGURATION MANAGEMENT ADVISOR Encounter Details Date Type Department Care Team (Late st Contact Info) Description 05/25/2024 10:45 AM CONFIGURATION MANAGEMENT ADVISOR Office Visit [facility] Nephrology [address] [facility] 5[address] [place] [address] [place] [address] Layla Malloy MD [address] [facility] [address] [place] [address] Encounter for aftercare following kidney transplant (Primary Dx); Encounter for long-term (current) use of high-risk medication; Skin lesion of left lower extremity; Primary hypertension Social History Tobacco Use Types Packs/Day Years [...] on file Legal Sex 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 CONFIGURATION MANAGEMENT ADVISOR Gender Identity Not on file Sexual Orientation Not on file documented as of this encounter Last Filed Vital Signs Vital Sign Reading Time Taken Comments Blood Pressure 148/83 05/25/2024 10:37 AM CONFIGURATION MANAGEMENT ADVISOR Pulse 75 05/25/2024 10:37 AM CONFIGURATION MANAGEMENT ADVISOR Temperature 36.4 ??C (97.6 ??F) 05/25/2024 10:[address] Respiratory Rate - - Oxygen Saturation - - Inhaled Oxygen Concentration - - Weight 56.7 kg (125 lb) 05/25/2024 10:37 AM CONFIGURATION MANAGEMENT ADVISOR Height 157.5 cm (5' 2 ) 05/25/2024 10:37 AM CONFIGURATION MANAGEMENT ADVISOR Body Mass Index 22.86 05/25/2024 10:37 AM CONFIGURATION MANAGEMENT ADVISOR documented in this encounter Patient Instructions * Patient Instructions* Layla Malloy MD - 05/25/2024 10:45 AM CONFIGURATION MANAGEMENT ADVISOR Shingrix vaccine is the only safe one to get for shingles. Check out your leg to make sure your legis not shingles IGURATION MANAGEMENT ADVISOR documented in this encounter Progress Notes * Layla Malloy MD - 05/25/2024 10:45 AM CST POST KIDNEY TRANSPLANT NOTE HISTORY OF PRESENT ILLNESS: Ms. Dunlap is an 89 y.o. 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 The patient is seen in clinic today for continued follow-up of her renal allograft, immunosuppression management, and other related medical issues. RENAL PROBLEM LIST: 1. 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 2. Status post a -donor renal transplant on February 10, 2013, pediatric kidney; 2A, 1B, 1DR mismatch; CMV positive into negative. Surgeon was Dr. Matheus Mahmood. Induction immunosuppression with Thymoglobulin 50 mg in the OR followed by 100 mg on postop days 1 and 2. She received CellCept one gram preoperatively as well as prednisone. She was transitioned to triple immunosuppression therapy with prednisone taper, tacrolimus and Myfortic. She had delayed graft function and post operative pneumonia. Her postop course was also complicated by acute anemia. 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 It was thought that hypertension, cefepime and/or Prograf could be contributingso cefepime was switched to moxifloxacin and Prograf was stopped. She was commenced on Belatacept. She did receive hemodialysis postoperatively, on February 23, 2013 for hyperkalemia, and plasmapheresis x 1 on February 24, 2013. Her first dose of Belatacept was February 22, 2013. She also received two units of fresh, frozen plasma with plasmapheresis. She received to units of packed red blood cells on A ug2012. She was discharged on February 25, 2013 with a creatinine of 1.29. At that time, she had good urine output. Stent removed 03/10/13. 3. Readmission to [facility] on March 08, 2013 for orthostatic hypertension and failure to thrive. She was found to have metabolic acidosis and commenced on sodium bicarbonate. Her urine pH was greater than 7 and she was thought to have some distal renal tubular acidosis. During her second hospitalization, the Belatacept was discontinued and she was commenced on Prograf. LDH was monitored closely with no evidence of hemolysis and no schistocytes appreciated. 4. Hypertension with significant hypertension during hospitalization post renal transplant. 5. Hypothyroidism, on levothyroxine replacement therapy. 6. Varicella zoster at the S1 dermatome with subsequent post-herpetic neuralgia for which she continues to take amitriptyline. 7. Coronary artery disease with a 30% circumflex lesion and 40% right coronary artery lesion per catheterization in October 2008 with normal ejection fraction. 8. Primary hyperparathyroidism, status post parathyroidectomy in 1994. 9. Left upper extremity AV graft, complicated by thrombosis, requiring thrombectomy and venous angioplasty. 10. Right lower leg vein ligation. 11. Plastic surgery for a fractured nose. 12. Positive Mycoplasma IgA antibody found during hospitalization for transplant. She received azithromycin. 13. Serologic evidence of prior hepatitis B infection per labs with positive hepatitis B core antibody. 14. Schatzki's ring and hiatal hernia per upper endoscopy September 2008 15. UTI with E. coli in December and January 2014. 16. 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 CVA July 2023. Ischemic stroke M2 18. Shingles 04/2023 -in the back/shoulder area and leg CURRENT VISIT/REVIEW OF SYSTEMS: Since our last clinic visit, Juliet Dunlap was having issues with CHF, and requires lasix for her volume. Has had shingles in 04/2023, back and left leg. Shewas on acyclovir for treatment, and continues on prophylaxis. She has had some CHF symptoms, and follows with cardiology for this. Somewhat limiting her activities, though takes lasix. No nausea, vomiting, diarrhea, abdominal pain, LUTS, swelling, fevers/chills/rigors. No side-effects of IMS reported such as tremors, headaches or insomnia. Reports compliance with immunosuppression. All other systems negative. CURRENT MEDICATIONS: Current Outpatient Medications: acyclovir (ZOVIRAX) 200 mg capsule, Take 1 capsule (200 mg total) by mouth 2 (two) times a day, Disp: 60 capsule, Rfl: 11 aspirin 81 mg enteric coated tablet, Take 1 tablet (81 mg total) by mouth daily, Disp: , Rfl: atorvastatin (LIPITOR) 40 mg tablet, Take 1 tablet (40 mg total) by mouth daily, Disp: 30 tablet, Rfl: 11 cholecalciferol (VITAMIN D-3) 2000 unit tablet, Take 1 tablet (2,000 Units total) by mouth daily, Disp: 30 tablet, Rfl: 11 cyanocobalamin (Vitamin B-12) 100 mcg tablet, Take 1 tablet (100 mcg total) by mouth daily, Disp: ,Rfl: furosemide (LASIX) 20 mg tablet, Take 1 tablet (20 mg total) by mouth daily, Disp: , Rfl: levothyroxine (SYNTHROID) 75 mcg tablet, Take 1 tablet (75 mcg total) by mouth waste management recycling technician beforebreakfast, Disp: , Rfl: lisinopriL (PRINIVIL,ZESTRIL) 10 mg tablet, TAKE 1 TABLET(10 MG) BY MOUTH DAILY, Disp: 90 tablet, Rfl: 3 metoprolol tartrate (LOPRESSOR) 75 mg tablet immediate release tablet, TAKE 1 TABLET(75 MG) BY MOUTH TWICE DAILY, Disp: 180 tablet, Rfl: 3 predniSONE (DELTASONE) 5 mg tablet, TAKE 1 TABLET(5 MG) BY MOUTH DAILY, Disp: 30 tablet, Rfl: 11 sodium bicarbonate 650 mg tablet, Take 1 tablet (650 mg total) by mouth daily, Disp: 30 tablet, Rfl: 11 tacrolimus 0.5 mg immediate-release capsule, Take 1 capsule (0.5 mg total) by mouth nightly, Disp: 30 capsule, Rfl: 11 tacrolimus 1 mg immediate-release capsule, Take 1 capsule (1 mg total) by mouth every morning, Disp: 30 capsule, Rfl: 11 Vitals BP 148/83 (BP Location: Right arm, Patient Position: Sitting) Pulse 75 Temp 36.4 ??C (97.6 ??F) (Oral) Ht 157.5 cm (5' 2 ) Wt 56.7 kg (125 lb) BMI 22.86 kg/m?? PHYSICAL EXAM Generally: no acute distress; breathing comfortably HEENT: sclera anicteric, mucus membranes moist, oropharynx no lesions or thrush. Neck: is supple, full range of motion without lymphadenopathy or thyromegaly. Lungs: clear bilaterally without wheezes, rales or rhonchi. Cardiovascular: regular rate and rhythm, normal S1S2 no rubs or gallops. Abdomen: soft and not tender, not distended, normal active bowel sounds. No rebound/guarding. Allograft is in the right lower quadrant without tenderness or bruit over the allograft site. Extremities are without clubbing, cyanosis or edema. Neurologically without significant tremor on exam. Psych: appropriate mood and affect. AV Fistula left upper extremity functional with positive bruit and thrill LLE with punctate 1-2 mm skin lesions present scattered throughout the pretibial surface, none in the back. Not tender no increased warmth LABORATORY VALUES Chemistries Lab Results Component Value Date SODIUM 141 12/18/2023 SCRNA 139 05/22/2023 POTASSIUM 5.3 (H) 12/18/2023 SCRK 4.8 05/22/2023 CHLORIDE 103 12/18/2023 CL 104 03/21/2013 SCRCL 105 05/22/2023 CO2 29 12/18/2023 SCRCO2 24 05/22/2023 Anemia eval: Lab Results Component Value Date WBC 6.3 12/18/2023 SCRWBC 6.0 05/22/2023 HGB 12.9 12/18/2023 SCRHGB 11.8 (A) 05/22/2023 LABPLAT 140 (L) 12/18/2023 SCRPLT 142 (A) 05/22/2023 SCRLAA 0.58 (A) 05/22/2023 RETIC 0.091 02/20/2013 IRON 46 08/30/2013 TRANSFERSAT 20 08/30/2013 FERRITIN 700 (H) 02/09/2013 FOLATE 12.6 02/20/2013 Renal Function Lab Results Component Value Date BUNSER 35 (H) 12/18/2023 BUNSER 21 07/17/2023 BUNSER 23 07/16/2023 SCRBUN 47 (A) 05/22/2023 SCRBUN 21 (A) 07/05/2022 SCRBUN 29 (A) 05/22/2022 CREATININE 0.95 12/18/2023 CREATININE 0.85 07/17/2023 CREATININE 0.84 07/16/2023 GFRAA 48 (L) 03/21/2013 Renal osteo eval: Lab Results Component Value Date CALCIUM 10.3 12/18/2023 SCRCA 10.1 05/22/2023 PHOS 3.4 05/15/2022 25HYDROVITD 42 05/15/2022 ALBUMIN 4.0 07/16/2023 SCRALB 4.0 05/22/2023 SCRALB 4.0 05/22/2023 Serologies: Lab Results Component Value Date HGBA1C 5.8 (H) 07/16/2023 HGBA1C 4.7 02/09/2013 LIGHTCHAIN 0.73 03/10/2013 HEPBSAG Negative 01/26/2013 HEPBSAB Positive (A) 01/26/2013 HEPBSAB 1047 01/26/2013 HEPBCAB Positive (A) 02/09/2013 HEPCAB Negative 02/09/2013 C3 110.0 02/21/2013 C4 23.3 02/21/2013 Lab Results Component Value Date TACRORDM 18.5 09/19/2022 TACRORDM 10.5 05/15/2022 SCRTACROTR 6.0 05/22/2023 SCRTACROTR 5.2 07/05/2022 SCRTACROTR 6.8 04/28/2022 TACROTR 4.4 12/18/2023 TACROTR 6.5 07/18/2023 TACROTR 6.3 03/28/2020 URINALYSIS: Lab Results Component Value Date PHURINE 6.0 12/18/2023 PROTURQL Negative 12/18/2023 GLUCOSEUR Negative 12/18/2023 BLOODUR Negative 12/18/2023 Spot Lab Results Component Value Date PROTUR Negative 11/19/2023 PROTUR Trace (A) 05/21/2023 PROTUR Trace (A) 10/23/2022 PROTCREAT 0.2 04/27/2013 No results found for: OSMOUR , UREAUR , SODIUMURR , KUR , CLUR , CALCIUMUR Lipids: Lab Results Component Value Date CHOL 146 07/16/2023 SCRTCHOL 146 05/22/2023 HDL 60 07/16/2023 SCRHDL 55 05/22/2023 LDL 70 02/09/2013 SCRLDL 67 05/22/2023 TRIG 99 07/16/2023 SCRTRIG 96 05/22/2023 LFTs: Lab Results Component Value Date SCRAST 25 05/22/2023 SCRALT 17 05/22/2023 SCRBILI 0.9 01/22/2021 Coags: Lab Results Component Value Date INR 0.9 07/16/2023 ASSESSMENT & PLAN: 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 Will ask our office staff to obtain for our records. Last labs in our system from December 2023 - At this time there does not appear to be recurrence of disease in the kidney transplant. - Continue to follow labs Qmonthly - We discussed with the patient the importance of medication compliance to decrease the risk of rejection. High risk immunosuppression medication for organ transplantation, requiring regular intensive follow-up and monitoring: Last FKL 4.4 on 12/18/23 -Needs updated labs. (Target 3-5 ng/ml) - To take Tacrolimus (Prograf) 1 mg BID, Prednisone 5 mg every day and MPA on- hold d/t infections and skin cancer - Patient is aware that tacrolimus levels significantly below the patient's target goal may increase the risk of rejection and may impose a risk of losing the kidney transplant graft. High risk immunosuppression medication for organ transplantation, requiring regular intensive follow-up and monitoring for toxicity. 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 S/p angioplasty with images showing a good response per report. 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 Continues on vitamin D Hyperlipidemia - Continue atorvastatin 40 mg daily CHF - follows with cardiology - continues on lasix H/o Shingles, now skin lesions persistent on L leg - Continue acyclovir prophylaxis - I referred to dermatology as the lesions on her left leg have been recurring over the last year. She remains on prophylaxis dose for shingles. Once cleared from dermatologic standpoint for these lesions, she can have shingrix vaccine History of Basal Cell Ca: - Continue follow up with dermatology - Given her overall stability on current immunosuppressive regimen and lack of recurrent SCC, will defer transitioning to mTORi based therapy at this time Hypertension BP Readings from Last 1 Encounters: 05/25/24 148/83 - BP normally controlled at home - To take Lisinopril 10 mg QD - continues on metoprolol 75mg bid Healthcare Maintenance - Annual dermatology visits advised , advised to stay up to date with influenza vaccine (NON-live vaccine) , and advised to stay up to date with Covid vaccination series and booster Has had flu vaccine this year. Ok to have covid vaccine as well. Disposition: Return to Clinic in 1 year, sooner if needed. F/u with pcp / pbx inspector / sap portal consultant every 3-6 months or as scheduled Communicated with [facility] transplant nurse coordinator regarding plan noted above. IGURATION MANAGEMENT ADVISOR documented in this encounter Plan of Treatment Scheduled Referrals Name Type Priority Associated Diagnoses Order Schedule Ambulatory referral to Dermatology Outpatient Referral Urgent Skin lesion of left lower extremity Expected: 06/08/2024 (Approximate), Expires: 05/25/2025 documented as of this encounter Procedures Procedure Name Priority Date/Time Associated Diagnosis Comments POCT URINALYSIS DIPSTICK Routine 05/25/2024 11:42 AM CONFIGURATION MANAGEMENT ADVISOR Encounter for aftercare following kidney transplant documented in this encounter Results * (ABNORMAL) POCT urinalysis dipstick (05/25/2024 11:42 AM CONFIGURATION MANAGEMENT ADVISOR) Glucose, ur, POC Negative Negative MG/DL Bilirubin, ur, POC Negative Negative, Small, Moderate, Large Ketones, ur, POC Negative Negative Specific [place], POC 1.020 1.003 - 1.030 Blood, ur, POC Small(A) Negative pH, ur, POC 6.0 5.0 - 8.0 Protein, ur, POC Negative Negative Urobilinogen, urine, POC 0.2 0.2 - 1.0 mg/dL Nitrite, ur, POC Negative Negative Leukocytes, ur, POC Small(A) Negative Lot Number [id number] Urine 05/25/2024 11:4 2 AM CONFIGURATION MANAGEMENT ADVISOR us Layla Mares MD POINT OF CARE YAA T ORDERABLES Final Result documented in this encounter Visit Diagnoses Diagnosis Encounter for aftercare following kidney transplant- Primary Encounter for long-term (current) use of high-risk medication Encounter for long-term (current) use of other medications Skin lesion of left lower extremity Primary hypertension Unspecified essential hypertension documented in this encounter Care Teams Echo Tech Relationship Specialty Start Date End Date Fadi Clemons DO [address] [address] PCP - General Family Medicine 11/03/22 Regina Contreras RN Wood S[employer] And Frame Carpenter 12/07/19 Charly Biggs MD [address] [address] Consulting Physician Internal Medicine 03/28/20 documented as of this encounter
--- OUTSIDE RECORDS SUMMARY | 2024-06-27 01:50 | XMS_ITS | Encounter Summary ---
Author Organization [facility] Address [address] [place] [address] Care Team Providers Care Mechanical Artist Name Role Phone Regina Calabrese RN Unavailable [phone] Charly Biggs MD Unavailable [phone] Fadi Clemons DO Primary Care Provider [phone] Encounter Details Date Type Department Care Team (Late st Contact Info) Description 03/26/2023 Telephone [facility] Transplant Kidney [address] [facility] [phone] [place] [address] Hernando Davila Social History Tobacco Use Types [...] on file 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 Gender Identity Not on file Sexual Orientation Not on file documented as of this encounter Ordered Prescriptions Prescription Sig Dispense Quantity Refills Last Filled Start Date End Date acyclovir (ZOVIRAX) 200 mg capsule Take 4 capsules (800 mg total) by mouth 5 (five) times a day for 7 days 140 capsule 03/26/2023 documented in this encounter Miscellaneous Notes * Addendum Note - Regina Calabrese RN - 03/26/2023 2:55 PM CDTAddended by: REGINA CALABRESE on: 03/26/2023 02:55 PM Modules accepted: Orders * Telephone Encounter - Hernando Davila - 03/26/2023 2:34 PM CDT Pt has been diagnosed with shingles on Thursday. PCP did not prescribe any medications. Pt cannot reach hearing aid technician and is asking if our office can increase acyclovir. Please advise. Elida Calabrese RN: Reviewed with team. Dr. Riya Mares: dose would be acyclovir 800mg 5x/day for 7 days. if she cannot take that much in a day, then it would be valacyclovir 1gm TID x 7 days. Elida Calabrese RN: Called pt to let her know, would like this sent to [facility], did this will start tomorrow. documented in this encounter Plan of Treatment Not on file documented as of this encounter Visit Diagnoses Not on filedocumented in this encounter Care Teams Mechanical Artist Relationship Specialty Start Date End Date Fadi Clemons DO [address] [address] PCP - General Family Medicine 11/03/22 Regina Calabrese, DEREK Coremaker Experimental 12/07/19 Charly Biggs MD [address] [address] Consulting Physician Internal Medicine 03/28/20 documented as of this encounter
--- OUTSIDE RECORDS SUMMARY | 2024-06-27 01:50 | XMS_ITS | Encounter Summary ---
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 Gender Identity Not on file Sexual Orientation Not on file documented as of this encounter Medications at Time of Discharge aspirin 81 mg enteric coated tablet Take 1 tablet (81 mg total) by mouth daily atorvastatin (LIPITOR) 40 mg tablet Take 1 tablet (40 mg total) by mouth daily 30 tablet 11 08/20/2023 5 cholecalciferol (VITAMIN D-3) 2000 unit tablet Take 1 tablet (2,000 Units total) by mouth daily 30 tablet 11 05/15/2022 cyanocobalamin (Vitamin B-12) 100 mcg tablet Take 1 tablet (100 mcg total) by mouth daily furosemide (LASIX) 20 mg tablet Take 1 tablet (20 mg total) by mouth daily levothyroxine (SYNTHROID) 75 mcg tablet Take 1 tablet (75 mcg total) by mouth cyber defense incident responder before breakfast metoprolol tartrate (LOPRESSOR) 75 mg tablet immediate release tablet TAKE 1 TABLET(75 MG) BY MOUTH TWICE DAILY 180 tablet 3 11/10/2023 predniSONE (DELTASONE) 5 mg tabletIndications :Kidney replaced by transplant TAKE 1 TABLET(5 MG) BY MOUTH DAILY 30 tablet 11 07/07/2023 tacrolimus 0.5 mg immediate-release capsuleIndication s:Kidney replaced by transplant Take 1 capsule (0.5 mg total) by mouth nightly 30 capsule 11 05/25/2023 tacrolimus 1 mg immediate-release capsuleIndication s:Kidney replaced by transplant Take 1 capsule (1 mg total) by mouth every morning 30 capsule 11 05/25/2023 acyclovir (ZOVIRAX) 200 mg capsule Take 1 capsule (200 mg total) by mouth 2 (two) times a day 60 capsule 11 04/10/2023 4 sodium bicarbonate 650 mg tablet Take 1 tablet (650 mg total) by mouth daily 30 tablet 11 12/26/2022 4 lisinopriL (PRINIVIL,ZESTRIL ) 10 mg tablet TAKE 1 TABLET(10 MG) BY MOUTH DAILY 90 tablet 3 05/07/2023 4 documented as of this encounter Discharge Disposition Disposition Code Departure Means Destination Discharge to home or self care documented in this encounter Plan of Treatment Not on file documented as of this encounter Procedures Procedure Name Priority Date/Time Associated Diagnosis Comments EGFR Routine 12/18/2023 8:15 PM CDT Kidney transplanted DIFFERENTIAL AUTO Routine 12/18/2023 8:1 5 PM CDT Kidney transplanted CBC WITH AUTO DIFFERENTIAL Routine 12/18/2023 8:15 PM CDT Kidney transplanted BASIC METABOLIC PANEL Routine 12/18/2023 8:15 PM CDT Kidney transplanted URINALYSIS AND REFLEX TO MICROSCOPIC Routine 12/18/2023 7:55 PM CDT Kidney transplanted URINALYSIS, MICROSCOPIC ONLY Routine 12/18/2023 7:55 PM CDT Kidney transplanted TACROLIMUS LEVEL, TROUGH Routine 12/18/2023 7:54 PM CDT Kidney transplanted documented in this encounter Results * (ABNORMAL) eGFR (12/18/2023 8:15 PM CDT) eGFR 58(L) >=60 mL/min/1. 73 m2 Comment: Interpretive Data Reference Interval Normal ?>/= 90 mL/min/1.73m2 Mildly decreased* ? 60 - 89 mL/min/1.73m2 Mildly to moderately decreased ?45 - 59 mL/min/1.73m2 Moderately to severely decreased ??30 - 44 mL/min/1.73m2 Severely decreased ?15 - 29 mL/min/1.73m2 Kidney Failure ?< 15 ??mL/min/1.73m2 *Relative to young adult level Estimated glomerular filtration rate is determined by the 2020 CKD-EPI equation recommended by the National Kid[employer] (A Unifying Approach to GFR Estimation: Recommendations of the NKF-ASK Task Force on Reassessing the Inclusion of Race in Diagnosing Kidney Disease, JASN 202). The CKD-EPI equation should not be used for patients with unstable renal function and has not been validated in children and those over 70. Current interpretive data was last reviewed 2021. Blood 12/18/2023 8:15 PM CDT 12/18/2023 8:15 PM CDT us Kirstin Mcqueen MD LAB BLOOD ORDERABLE S Final Result [facility] [id number] Department [place] [address] * (ABNORMAL) Differential, auto (12/18/2023 8:15 PM CDT) Neutrophil abs 4.9 1.5 - 6.5 K/cumm Imm gran abs 0.0 0.0 - 0.1 K/cumm [facility] Lymphocyte abs 0.5(L) 0.8 - 3.3 K/cumm [facility] Monocyte abs 0.5 0.2 - 0.8 K/cumm [facility] Eosinophil abs 0.2 0.0 - 0.5 K/cumm [facility] Basophil abs 0.1 0.0 - 0.1 K/cumm [facility] Neutrophil pct 78.7 % [facility] Comment: Interpretive Data Percent cell count reference ranges are not reported, since discordance with absolute values may lead to misinterpretation of CBC data. Current Interpretive Data was last revised on 2017. Imm gran pct 0.3 % [facility] Comment: Interpretive Data Percent cell count reference ranges are not reported, since discordance with absolute values may lead to misinterpretation of CBC data. Current Interpretive Data was last revised on 2017. Lymphocyte pct 8.6 % [facility] Comment: Interpretive Data Percent cell count reference ranges are not reported, since discordance with absolute values may lead to misinterpretation of CBC data. Current Interpretive Data was last revised on 2017. Monocyte pct 8.6 % [facility] Comment: Interpretive Data Percent cell count reference ranges are not reported, since discordance with absolute values may lead to misinterpretation of CBC data. Current Interpretive Data was last revised on 2017. Eosinophil pct 3.0 % [facility] Comment: Interpretive Data Percent cell count reference ranges are not reported, since discordance with absolute values may lead to misinterpretation of CBC data. Current Interpretive Data was last revised on 2017. Basophil pct 0.8 % [facility] Comment: Interpretive Data Percent cell count reference ranges are not reported, since discordance with absolute values may lead to misinterpretation of CBC data. Current Interpretive Data was last revised on 2017. Blood 12/18/2023 8:15 PM CDT 12/18/2023 8:15 PM CDT us Kirstin Mcqueen MD LAB BLOOD ORDERABLE S Final Result [facility] [address] Department [place] [address] * (ABNORMAL) Basic metabolic panel (12/18/2023 8:15 PM CDT) Sodium 141 135 - 145 mmol/L Potassium, pl 5.3(H) 3.3 - 4.9 mmol/L [facility] Chloride 103 97 - 110 mmol/L [facility] CO2 29 22 - 32 mmol/L [facility] Anion gap 9 2 - 15 mmol/L [facility] BUN 35(H) 6 - 25 mg/dL [facility] Creatinine 0.95 0.60 - 1.10 mg/dL [facility] Glucose 99 70 - 199 mg/dL [facility] Comment: Interpretive Data Fasting glucose >/= 126 mg/dl is diagnostic for diabetes. ?? Fasting is defined as no caloric intake for at least 8 hours. Fasting glucose between 100 mg/dl to 125 mg/dl is diagnostic of prediabetes. In a patient with classic symptoms of hyperglycemia or hyperglycemic crisis, a random glucose >/= 200 mg/dl is diagnostic for diabetes. In the absence of unequivocal hyperglycemia, results should be confirmed by repeat testing. The classification and Diagnosis of Diabetes Diabetes Care 2022; 46: S19-S40. Current interpretive data was last revised 2022. Calcium 10.3 8.5 - 10.3 mg/dL [facility] Blood 12/18/2023 8:15 PM CDT 12/18/2023 8:15 PM CDT Kirstin Mcqueen MD LAB BLOOD ORDERABLE S Final Result Performing Organization Address City/[facility]/ZIP Co de Phone Number STEVE WATSON [phone] [place] [address] * (ABNORMAL) CBC with auto differential (12/18/2023 8:15 PM CDT) WBC 6.3 3.8 - 9.9 K/cumm Hgb 12.9 11.9 - 15.5 g/dL [facility] Hct 40.8 35.6 - 45.5 % [facility] Plt 140(L) 150 - 400 K/cumm [facility] MPV 11.5 9.1 - 12.3 fL [facility] RBC 3.88(L) 3.90 - 5.20 M/cumm [facility] MCV 105.2(H) 81.3 - 96.4 fL [facility] MCH 33.2 27.1 - 33.3 pg [facility] MCHC 31.6(L) 32.3 - 35.7 g/dL [facility] RDW CV 12.9 11.1 - 14.9 % [facility] RDW SD 49.5(H) 35.7 - 48.1 fL [facility] NRBC abs 0.00 0.00 - 0.01 K/cumm [facility] Blood 12/18/2023 8:15 PM CDT 12/18/2023 8:15 PM CDT Kirstin Mcqueen MD LAB BLOOD ORDERABLE S Final Result Performing Organization Address City/[facility]/ZIP Co de Phone Number STEVE WATSON [address] [place] [address] * (ABNORMAL) Urinalysis, microscopic only (12/18/2023 7:55 PM CDT) WBC, ur >50(A) 0 - 5 /HPF RBC, ur 3-5(A) 0 - 2 /HPF [facility] Epithelial cells, squamous, ur 1-5 0 - 5 /HPF [facility] Bacteria, ur 3+(A) [facility] Urine 12/18/2023 7:55 PM CDT 12/18/2023 8:40 PM CDT us Kirstin Mcqueen MD LAB URINE ORDERABLE S Final Result [facility] [address] Department [place] [address] * (ABNORMAL) Urinalysis reflex to microscopic (12/18/2023 7:55 PM CDT) Color, ur Yellow Yellow Clarity, ur Cloudy(A) Clear [facility] Specific gravity, ur 1.020 1.003 - 1.030 [facility] pH, urine 6.0 [facility] Comment: Interpretive Data ? Urine pH is affected by diet, medications, systemic acid-base disturbances, and renal tubular function. ??pH may affect urinary stone formation. ??For example, urine pH below 6.0 may help reduce the tendency for calcium phosphate stones and pH greater than 6.0 may reduce the tendency for uric acid stone formation. Source: [facility] Current Interpretive Data was last revised on 2017 Protein, ur ql Negative Negative [facility] Glucose, ur ql Negative Negative [facility] Ketones, ur Negative Negative [facility] Bilirubin, ur Negative Negative [facility] Blood, ur Negative Negative [facility] Comment:Ascorbic acid identi fied in urine; possible false negative blood result. A microscopic exam will be added to identify RBCs. Urobilinogen, ur <2.0 <2.0 mg/dL [facility] Nitrite, ur Negative Negative [facility] Leukocyte esterase, ur 4+(A) Negative [facility] UA reflex comment Reflex to microscopic UA will be performed. [facility] Urine 12/18/2023 7:55 PM CDT 12/18/2023 8:40 PM CDT us Kirstin Mcqueen MD LAB URINE ORDERABLE S Final Result [facility] [address] Department [place] [address] * Tacrolimus level trough (12/18/2023 7:54 PM CDT) [facility] Signature Tacrolimus trough 4.4 ng/mL Comment: Interpretive Data Testing performed by liquid chromatography-tandem mass spectrometry. ??Therapeutic concentrations vary depending on type of transplanted organ and time elapsed since transplant. ??Typical trough concentrations range from 5-15 ng/mL. ??This test was developed and its performance characteristics determined by the [facility] consistent with CLIA requirements. ??This test has not been cleared or approved by the [place] Food and Drug administration. ??Current interpretive data last reviewed 2019. Testing performed by: 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
--- OUTSIDE RECORDS SUMMARY | 2024-06-27 01:50 | XMS_ITS | Encounter Summary ---
Author Organization [facility] Address [address] [place] [address] Care Team Providers Care Cream Maker Name Role Phone Regina Contreras RN Unavailable [phone] Charly Biggs MD Unavailable [phone] Fadi Clemons DO Primary Care Provider [phone] Reason for Referral * Diagnostic Imaging (Routine) - Closed Specialty Diagnoses / Procedures Referred By Contac t Referred To Contact Radiology Diagnoses ESRD (end stage renal disease) (CMS/HCC) (HCC) Procedures IR Dialysis Fistulagram W CAST IRON DRAIN PIPE LAYER Peripheral Segment Arturo Khan MD PhD [address] [address] Phone: tel: fax: [address] [phone] Referral ID Status Reason Start Date Expiration Date Visits Re quested Visits Authorized [id number] Closed 01/12/2023 02/11/2024 1 1 Reason for Visit * Diagnostic Imaging (Routine) - Closed Specialty Diagnoses / Procedures Referred By Contac t Referred To Contact Radiology Diagnoses ESRD (end stage renal disease) ([facility]/HCC) (HCC) Procedures IR Dialysis Fistulagram W CAST IRON DRAIN PIPE LAYER Peripheral Segment Arturo Khan MD PhD [address] [place] [address] Phone: tel: fax: [facility] [address] [place] [address] Referral ID Status Reason Start Date Expiration Date Visits Re quested Visits Authorized [id number] Closed 01/12/2023 02/11/2024 1 1 Encounter Details Date Type Department Care Team (Late st Contact Info) Description 01/26/2023 6:35 AM CDT - 01/26/2023 11:59 PM CDT Hospital Encounter 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 Gender Identity Not on file Sexual Orientation Not on file documented as of this encounter Last Filed Vital Signs Vital Sign Reading Time Taken Comments Blood Pressure 154/70 01/26/2023 9:35 AM CDT Pulse 55 01/26/2023 9:35 AM CDT Temperature 36.4 ??C (97.6 ??F) 01/26/2023 7:00 AM CD T Respiratory Rate 18 01/26/2023 9:35 AM CDT Oxygen Saturation 100% 01/26/2023 9:35 AM CDT Inhaled Oxygen Concentration - - Weight - - Height - - Body Mass Index - - documented in this encounter Discharge Instructions * Discharge Instructions* Saurabh Jordan MD - 01/26/2023 9:46 AM CDT Interventional Radiology Outpatient Discharge Instructions/Note Diagnosis:Left upper extremity swelling - central and peripheral stenoses Procedure:Fistulagram with angioplasty of central and peripheral stenoses Limitations: [] No lifting greater than 5 pounds with [] Right [] Left arm for 7 days. [] You received medication that may affect your judgement. Stay with a responsible person today. Do not drive, operate machinery, make any legal or important decisions, or drink alcohol until tomorrow. No smoking unless another adult is present. Other Diet: You may resume your previous diet. Medication: [x] Usual medications; check with your regular doctor for any questions. Do not take any new pain medicine, sleeping pills or sedatives unless approved by your doctor. [] Prescriptions given for: Procedure Site Care: [] teaching sheet given [x] Skin glue was used to close your incision. See teaching sheet. [x] You may shower tomorrow. [x] The dressing may be removed after 24 hours and you can shower and gently wash the area. Apply anew dressing or Band-aid daily until the site is healed. [x] If a suture was used to close the procedure site, it will dissolve with time and does not need to be removed. [] The suture at your dialysis access site may be removed by the dialysis staff on ___/___/___ (date). To contact an Interventional Radiologist at [facility] call [phone] Thursday through Thursday from 7:30am-4:30pm. At all other times call [phone] and ask that the Interventional Radiologist be paged. To contact an Interventional Radiologist at [facility] call [phone] Thursday through Thursday from 7:30am-3:30pm. To contact an Interventional Radiologist RN at [facility] call [phone] Thursday through Thursday from 7:00 am-5:00 pm. To schedule an appointment with Interventional Radiology at [facility] call [phone] Thursday through Thursday from 7:30 am-4:00 pm. For after hours, follow the telephone recording prompts to reach the on-call Interventional Radiology physician. Special instructions: Please call Interventional Radiology for any procedure related questions or problems including: Extreme swelling or bruising at the site. Unusual drainage or bleeding from procedure site. Fever of 101.5 F for more than 24 hours. Severe procedure related pain. Follow up care: [] Return to Interventional Radiology on at Please come to: [] 3rd Floor [facility] [] 4th floor [facility] [] [facility] [] [facility] Please call [phone] if you need to schedule a follow up appointment. documented in this encounter Medications at Time of Discharge cholecalciferol (VITAMIN D-3) 2000 unit tablet Take 1 tablet (2,000 Units total) by mouth daily 30 tablet 05/15/2022 cyanocobalamin (Vitamin B-12) 100 mcg tablet Take 1 tablet (100 mcg total) by mouth daily sodium bicarbonate 650 mg tablet Take 1 tablet (650 mg total) by mouth daily 30 tablet 12/26/2022 4 acyclovir (ZOVIRAX) 200 mg capsule Take 1 capsule (200 mg total) by mouth 2 (two) times a day 60 capsule 05/16/2022 3 biotin 2,500 mcg capsule Take 1 capsule by mouth daily 4 Eliquis 5 mg tablet Take 1 tablet (5 mg total) by mouth 2 (two) times a day 12/23/2022 4 levothyroxine (SYNTHROID) 100 mcg tablet Take 1 tablet (100 mcg total) by mouth meat cutting teacher before breakfast 30 tablet 11 10/17/2022 4 lisinopriL (PRINIVIL,ZESTRIL ) 10 mg tablet Take 1 tablet (10 mg total) by mouth daily 90 tablet 3 03/28/2022 3 metoprolol tartrate (LOPRESSOR) 75 mg tablet [...] or self care documented in this encounter Miscellaneous Notes * Post-Procedure Note - Saurabh Jordan MD - 01/26/2023 8:00 AM CDT Radiology Brief Post Procedure Note Attending: Carey Metal Tank Erector: Julian Sedation/Anesthesia: Min Sedation Pre-Op/Pre-Procedure Diagnosis: AV Graft with central stenosis Post-Op/Post-Procedure Diagnosis: Same as well as peripheral stenosis in the outflow vein Procedure Performed: Fistulagram with central and peripheral angioplasty Procedure Findings: 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 Successful balloon angioplasty of both centraland peripheral stenoses. Complications: None Estimated Blood Loss: < 30 ml Specimens: None Condition: Stable Full report to follow. * Pre-Procedure Note - Saurabh Jordan MD - 01/26/2023 8:00 AM CDT Radiology Long Sedation Form Indication: Left upper extremity edema, intermittent Planned Procedure: Fistulagram and angioplasty Planned Sedation/Anesthesia: minimal sedation History: 87F with ESRD s/p renal transplant (02/10/2013) with left upper arm AVG (2009) with previous angioplasty of central stenosis, presenting with left arm edema. Per Dr. Khan's note, dilation of AVG venous anastomotic stenosis should be avoided if present, asgraft flow volume is approximately 1L and is adequate. 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, bilateral Fatigue Frequent urination GERD (gastroesophageal reflux disease) Gout Heart murmur Hiatal hernia schatzki ring HL (hearing loss) Hyperlipidemia Hypertension Hypothyroidism Migraines Peritoneal dialysis status ([facility]) ([facility]) From 2009 to 2012 prior to transplant Postoperative delirium 02/2013 hallucinations s/p kidney transplant, saw flashes of color and puffs of smoke Renal failure received 1 episode chemo to try to save Kidney in 2008 [place] 2008 Past Surgical History: Procedure Laterality Date AV FISTULA PLACEMENT Left with declotting CARDIAC CATHETERIZATION 10/2008 CATARACT EXTRACTION Left 05/05/2018 CATARACT EXTRACTION W/ INTRAOCULAR LENS IMPLANT Right CENTRAL LINE PLACEMENT > 5 YEARS N/A 02/16/2013 CYSTOSCOPY 08/2013 with placement of TVT-O midurethral ring HERNIA REPAIR 09/2008 with Schatzki's ring KIDNEY TRANSPLANT 02/2013 PARATHYROIDECTOMY 1994 RHINOPLASTY STRABISMUS SURGERY TONSILLECTOMY 1943 VEIN LIGATION AND STRIPPING 1992 ROS: Review of systems per HPI and otherwise all other systems are negative Allergies: Cephalexin, Tape [adhesive], Tetracyclines, Nitrofurantoin, Tetracycline, Levofloxacin, and Codeine Current Meds: Current Outpatient Medications: acyclovir (ZOVIRAX) 200 mg capsule, Take 1 capsule (200 mg total) by mouth 2 (two) times a day, Disp: 60 capsule, Rfl: 11 biotin 2,500 mcg capsule, Take 1 capsule by mouth daily, Disp: , Rfl: cholecalciferol (VITAMIN D-3) 2000 unit tablet, Take 1 tablet (2,000 Units total) by mouth daily, Disp: 30 tablet, Rfl: 11 cyanocobalamin (Vitamin B-12) 100 mcg tablet, Take 1 tablet (100 mcg total) by mouth daily, Disp: ,Rfl: Eliquis 5 mg tablet, Take 1 tablet (5 mg total) by mouth 2 (two) times a day, Disp: , Rfl: levothyroxine (SYNTHROID) 100 mcg tablet, Take 1 tablet (100 mcg total) by mouth meat cutting teacher before breakfast, Disp: 30 tablet, Rfl: 11 lisinopriL (PRINIVIL,ZESTRIL) 10 mg tablet, Take 1 tablet (10 mg total) by mouth daily, Disp: 90 tablet, Rfl: 3 metoprolol tartrate (LOPRESSOR) 75 mg tablet immediate release tablet, TAKE 1 TABLET(75 MG) BY MOUTH TWICE DAILY, Disp: 180 tablet, Rfl: 3 pravastatin (PRAVACHOL) 20 mg tablet, Take 1 tablet (20 mg total) by mouth nightly, Disp: , Rfl: predniSONE (DELTASONE) 5 mg tablet, Take 1 tablet (5 mg) by mouth daily, Disp: 30 tablet, Rfl: 11 sodium bicarbonate 650 mg tablet, Take 1 tablet (650 mg total) by mouth daily, Disp: 30 tablet, Rfl: 11 tacrolimus (PROGRAF) 1 mg immediate-release capsule, Take 1 capsule (1 mg total) by mouth 2 (two) times a day, Disp: 60 capsule, Rfl: 11 trimethoprim (TRIMPEX) 100 mg tablet, Take 0.5 tablets (50 mg total) by mouth nightly, Disp: , Rfl: Current Facility-Administered Medications: Carrier Fluids for Secondary Infusion - 0.9% Sodium Chloride, 30 mL, intravenous, PRN, Saurabh Jordan MD sodium chloride 0.9% flush 0.5-20 mL, 0.5-20 mL, intra-catheter, Q8H BLAINE, Saurabh Jordan MD sodium chloride 0.9% flush 0.5-20 mL, 0.5-20 mL, intra-catheter, PRN, Saurabh Jordan MD sodium chloride 0.9% flush 10-20 mL, 10-20 mL, intra-catheter, PRN, Saurabh Jordan MD sodium chloride 0.9% flush 5-10 mL, 5-10 mL, intra-catheter, Q12H [facility], Saurabh Jordan MD sodium chloride 0.9% infusion, 30 mL/hr, intravenous, Continuous, Saurabh Jordan MD Physical exam: Gen: NAD CV: Regular rate, normal rhythm Pulm: Clear bilaterally Ext: LUE AV graft with thrill. 2+ pitting edema in left upper extremity, most pronounced over the dorsal aspect of the wrist. Most Recent Vitals: Vitals: 01/26/23 0717 BP: 170/73 Pulse: 71 Resp: 18 Temp: SpO2: 97% Airway Assessment: normal Labs/Imaging: Reviewed. Assessment: Appropriate candidate for minimal sedation. Plan for fistulagram with percutaneous transluminal angioplasty of central stenosis. Patient has been NPO since midnight. ASA Score: 2 NPO time: after midnight Benefits, risks and alternatives of procedure and planned sedation have been discussed with the patient and/or their technical support representative. All questions answered and they agree to proceed. documented in this encounter Plan of Treatment Not on file documented as of this encounter Procedures Procedure Name Priority Date/Time Associated Diagnosis Comments DIALYSIS FISTULAGRAM W CAST IRON DRAIN PIPE LAYER PERIPHERAL SEGMENT Schedule Routine, Read Routine (OP Routine) 01/26/2023 9:20 AM CDT ESRD (end stage renal disease) ([facility]) ([facility]) documented in this encounter Results * IR Dialysis Fistulagram W CAST IRON DRAIN PIPE LAYER Peripheral Segment (01/26/2023 9:20 AM CDT) Anatomical Region Laterality Modality N/A X-Ray Angiograph y 01/26/2023 9:44 AM CDT Impressions 01/26/2023 11:00 AM CDT 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 Successful angioplasty and drug coated balloon angioplasty as above. PLAN: The sutures are absorbable and do not need to be removed. ??Flow within the dialysis access should be monitored and used to guide decisions about the need for repeat intervention Dictated by: Saurabh Jordan M.D. The radiology attending physician has personally reviewed this study, and had reviewed and/or edited this written report and agrees with it. Electronically signed by: Stewart Patino M.D. Narrative 01/26/2023 11:00 AM CDT EXAMINATION: ??DIALYSIS FISTULAGRAM AND ANGIOPLASTY, Central CAST IRON DRAIN PIPE LAYER HISTORY/INDICATION: ??87F with ESRD s/p renal transplant (02/10/2013) with left upper arm AVG (2009) with previous angioplasty of central stenosis, presenting with left arm edema. ATTENDING PRESENCE: Stewart Patino M.D., the attending radiologist, was present from the beginning to the end of the procedure. SEDATION: Procedural sedation was administered under the attending physician's direction and continuous monitoring by a trained nurse specialist who was independent from those actually performing the procedure. ??Total monitored sedation time was 59 minutes. TECHNIQUE: ??The risks, benefits and alternatives were discussed and informed consent was obtained. Prior to beginning the procedure, [place] Protocol was performed to confirm the patient's identity and the planned procedure. ??The fluoroscopy time has been recorded in the electronic medical record. ??Maximum sterile barriers including cap, mask, hand hygiene, sterile gloves, sterile gown, large sterile drape and 2% chlorhexidine for cutaneous antisepsis were used. The skin over the left upper arm dialysis graft was infiltrated with 1% lidocaine. The graft was examined with ultrasound and an image of the patent vein was recorded. ??Using realtime ultrasound guidance a needle was advanced into the graft followed by placement of a 5 peruvian catheter. Fluoroscopy was used for all catheter and guidewire manipulations. Multiple DSA images were obtained to visualize the dialysis access from the arterial anastomosis through the vena cava. After identifying a stenosis a 8Fr sheath was placed. The patient was given 3000 units of heparin intravenously. The stenosis at the confluence of the left brachiocephalic vein and superior vena cava was sequentially dilated using a 10 mm and 12 mm high pressure balloon followed by a 12 mm drug-eluting balloon. Repeat venography was performed. The stenosis at the outflow vein was dilated using a 10 mm high-pressure balloon followed by a 10 mm drug-eluting balloon. Repeat venography was performed. At the end of the procedure, a purse string suture was placed around the entry site with overlying Dermabond and hemostasis was achieved. ESTIMATED BLOOD LOSS: Minimal. CONDITION: Stable DISCHARGED TO: ??outpatient recovery. 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 Post angioplasty images show a good response with a patent vein.. Reflux angiogram shows a patent anastomotic and proximal arterial segment. Procedure Note Stewart Patino MD - 01/26/2023 EXAMINATION: DIALYSIS FISTULAGRAM AND ANGIOPLASTY, Central CAST IRON DRAIN PIPE LAYER HISTORY/INDICATION: 87F with ESRD s/p renal transplant (02/10/2013) with left upper arm AVG (2009) with previous angioplasty of central stenosis, presenting with left arm edema. ATTENDING PRESENCE: Stewart Patino M.D., the attending radiologist, was present from the beginning to the end of the procedure. SEDATION: Procedural sedation was administered under the attending physician's direction and continuous monitoring by a trained nurse specialist who was independent from those actually performing the procedure. Total monitored sedation time was 59 minutes. TECHNIQUE: The risks, benefits and alternatives were discussed and informed consent was obtained. Prior to beginning the procedure, [place] Protocol was performed to confirm the patient's identity and the planned procedure. The fluoroscopy time has been recorded in the electronic medical record. Maximum sterile barriers including cap, mask, hand hygiene, sterile gloves, sterile gown, large sterile drape and 2% chlorhexidine for cutaneous antisepsis were used. The skin over the left upper arm dialysis graft was infiltrated with 1% lidocaine. The graft was examined with ultrasound and an image of the patent vein was recorded. Using realtime ultrasound guidance a needle was advanced into the graft followed by placement of a 5 peruvian catheter. Fluoroscopy was used for all catheter and guidewire manipulations. Multiple DSA images were obtained to visualize the dialysis access from the arterial anastomosis through the vena cava. After identifying a stenosis a 8Fr sheath was placed. The patient was given 3000 units of heparin intravenously. The stenosis at the confluence of the left brachiocephalic vein and superior vena cava was sequentially dilated using a 10 mm and 12 mm high pressure balloon followed by a 12 mm drug-eluting balloon. Repeat venography was performed. The stenosis at the outflow vein was dilated using a 10 mm high-pressure balloon followed by a 10 mm drug-eluting balloon. Repeat venography was performed. At the end of the procedure, a purse string suture was placed around the entry site with overlying Dermabond and hemostasis was achieved. ESTIMATED BLOOD LOSS: Minimal. CONDITION: Stable DISCHARGED TO: outpatient recovery. 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 Post angioplasty images show a good response with a patent vein.. Reflux angiogram shows a patent anastomotic and proximal arterial segment. 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 Successful angioplasty and drug coated balloon angioplasty as above. PLAN: The sutures are absorbable and do not need to be removed. Flow within the dialysis access should be monitored and used to guide decisions about the need for repeat intervention Dictated by: Saurabh Jordan M.D. The radiology attending physician has personally reviewed this study, and had reviewed and/or edited this written report and agrees with it. Electronically signed by: Stewart Patino M.D. Arturo Khan MD PhD IMG IR PROCEDURES Final R esult documented in this encounter Visit Diagnoses Diagnosis ESRD (end stage renal disease) ([facility]) ([facility]) End stage renal disease documented in this encounter Administered Medications Inactive Administered Medications - up to 3 most recent administrations Medication Order MAR Action Action Date Dose Rate Site fentaNYL (SUBLIMAZE) preservative free injection intravenous, As needed, Starting on Thu01/26/23 at 0835, Intra-Op Given 01/26/2023 8:35 AM CDT 25 mcg fentaNYL (SUBLIMAZE) preservative free injection intravenous, As needed, Starting on Thu01/26/23 at 0840, Intra-Op Given 01/26/2023 8:40 AM CDT 25 mcg fentaNYL (SUBLIMAZE) preservative free injection intravenous, As needed, Starting on Thu01/26/23 at 0846, Intra-Op Given 01/26/2023 8:46 AM CDT 25 mcg fentaNYL (SUBLIMAZE) preservative free injection intravenous, As needed, Starting on Thu01/26/23 at 0850, Intra-Op Given 01/26/2023 8:50 AM CDT 25 mcg heparin 1,000 unit/mL injection As needed, Starting on Thu01/26/23 at 0841, Intra-Op Given 01/26/2023 8:41 AM CDT 3,000 Units iodixanoL (VISIPAQUE) 320 mg iodine/mL injection As needed, Starting on Thu01/26/23 at 0927, Intra-Op Given 01/26/2023 9:27 AM CDT 80 mL lidocaine (XYLOCAINE) 10 mg/mL (1 %) injection As needed, Starting on Thu01/26/23 at 0835, Intra-Procedure (IR), Indications: Administration of Local AnesthesiaIndications:Admini stration of Local Anesthesia Given 01/26/2023 8:35 AM CDT 5 mL Left Arm lidocaine (XYLOCAINE) 10 mg/mL (1 %) injection As needed, Starting on Thu01/26/23 at 0915, Intra-Procedure (IR), Indications: Administration of Local AnesthesiaIndications:Admini stration of Local Anesthesia Given 01/26/2023 9:15 AM CDT 5 mL Left Arm midazolam (VERSED) 1 mg/mL injection As needed, Starting on Thu01/26/23 at 0835, Intra-Op Given 01/26/2023 8:35 AM CDT 0.5 mg midazolam (VERSED) 1 mg/mL injection As needed, Starting on Thu01/26/23 at 0840, Intra-Op Given 01/26/2023 8:40 AM CDT 0.5 mg midazolam (VERSED) 1 mg/mL injection As needed, Starting on Thu01/26/23 at 0845, Intra-Op Given 01/26/2023 8:45 AM CDT 0.5 mg midazolam (VERSED) 1 mg/mL injection As needed, Starting on Thu01/26/23 at 0850, Intra-Op Given 01/26/2023 8:50 AM CDT 0.5 mg documented in this encounter Orders Medications Ordered That Taras ht Not Have Been Administered Count Last Ordered Date First Ordered Date Carrier Fluids for Secondary Infusion - 0.9% Sodium Chloride 1 01/26/2023 sodium chloride 0.9% flush 0.5-20 mL 2 07/2 10/2022 sodium chloride 0.9% flush 10-20 mL 1 01/26 sodium chloride 0.9% flush 5-10 mL 1 2022 sodium chloride 0.9% infusion 1 01/26/2023 Discharge Count Last Ordered Date First Orde red Date DISCHARGE PATIENT 1 01/26/2023 documented in this encounter Care Teams Cream Maker Relationship Specialty Start Date End Date Fadi Clemons DO [address] [address] PCP - General Family Medicine 11/03/22 Regina Contreras, RN Liquefier 12/07/19 Charly Biggs MD [address] [address] Consulting Physician Internal Medicine 03/28/20 documented as of this encounter
--- OUTSIDE RECORDS SUMMARY | 2024-06-27 01:50 | XMS_ITS | Encounter Summary ---
Author Organization [facility] Healthcare Address [address] [place] [address] Care Team Providers Care Attorney Name Role Phone Regina Contreras RN Unavailable [phone] Charly Biggs MD Unavailable [phone] Fadi Clemons DO Primary Care Provider [phone] Encounter Details Date Type Department Care Team (Late st Contact Info) Description 05/27/2024 Orders Only 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 Gender Identity Not on file Sexual Orientation Not on file documented as of this encounter Plan of Treatment Scheduled Orders Name Type Priority Associated Diagnoses Orde r Schedule CBC with auto differential Lab Routine Kidney replaced by transplant Monthly for 12 Occurrences starting 05/27/2024 until 05/27/2025 Renal function panel Lab Routine Kidney replaced by transplant Monthly for 12 Occurrences starting 05/27/2024 until 05/27/2025 Tacrolimus level trough Lab Routine Kidney replaced by transplant Immunosuppressive management encounter following kidney transplant Monthly for 12 Occurrences starting 05/27/2024 until 05/27/2025 Hepatic function panel Lab Routine Kidney replaced by transplant Quarterly for 4 Occurrences starting 05/27/2024 until 05/27/2025 Lipid panel Lab Routine Kidney replaced by transplant Hyperlipidemia, unspecified hyperlipidemia type Quarterly for 4 Occurrences starting 05/27/2024 until 05/27/2025 documented as of this encounter Visit Diagnoses Diagnosis Kidney replaced by transplant- Primary Immunosuppressive management encounter following kidney transplant Encounter for long-term (current) use of other medications Hyperlipidemia, unspecified hyperlipidemia type documented in this encounter Care Teams Attorney Relationship Specialty Start Date End Date Fadi Clemons DO [address] [address] PCP - General Family Medicine 11/03/22 Regina Contreras RN Financial Assistance Specialist 12/07/19 Charly Biggs MD [address] [address] Consulting Physician Internal Medicine 03/28/20 documented as of this encounter
--- OUTSIDE RECORDS SUMMARY | 2024-06-27 01:50 | XMS_ITS | Encounter Summary ---
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 Name Role Phone Regina Contreras RN Unavailable [phone] Charly Biggs MD Unavailable [phone] Fadi Clemons DO Primary Care Provider [phone] Encounter Details Date Type Department Care Team (Late st Contact Info) Description 08/13/2023 Telephone [facility] Scheduling [address] [place] [address] Albert Valdez CMA Social History Tobacco Use Types Packs/Day Years [...] on file Legal Sex 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 HANDLER documented in this encounter Plan of Treatment Not on file documented as of this encounter Visit Diagnoses Not on filedocumented in this encounter Care Teams Machine Setter Sheet Metal Relationship Specialty Start Date End Date Fadi Clemons DO [address] [address] PCP - General Family Medicine 11/03/22 Regina Contreras RN Data Entry 12/07/19 Charly Biggs MD [address] [address] Consulting Physician Internal Medicine 03/28/20 documented as of this encounter
--- OUTSIDE RECORDS SUMMARY | 2024-06-27 01:50 | XMS_ITS | Encounter Summary ---
Author Organization [facility] Healthcare Address [address] [place] [address] Care Team Providers Care Deli/Bakery Associate Name Role Phone Regina Contreras RN Unavailable [phone] Charly Biggs MD Unavailable [phone] Fadi Clemons DO Primary Care Provider [phone] Reason for Referral * Consultation (Routine) - Closed Specialty Diagnoses / Procedures Referred By Contac t Referred To Contact Neurology Diagnoses Cerebrovascular accident (CVA), unspecified mechanism (HCC) Joann Garcia MD [address] [place] [address] Phone: tel: fax: [facility] Stroke [address] [place] [address] Phone: tel: fax: Referral ID Status Reason Start Date Expiration Date V isits Requested Visits Authorized [id number] Closed Specialty Services Required 07/18/2023 08/16/2024 1 1 Question Answer Please select the performing region: [facility] (All Locations) [167] # of visits: 1 Comments Please schedule patient for follow up appointment. Section: Stroke Provider: First available Time Frame: First available ONDITIONING ENGINEER Reason for Visit * Reason Comments Dizziness Fall * Auth/Cert (Routine) Specialty Diagnoses / Procedures Referred By Contac t Referred To Contact Diagnoses Cerebrovascular accident (CVA), unspecified mechanism (HCC) Procedures NA Referral ID Status Reason Start Date Expiration Date Visits Re quested Visits Authorized [id number] 1 1 Encounter Details Date Type Department Care Team (Latest Contact Info) Description 07/16/2023 12:34 PM AIRCONDITIONING ENGINEER - 07/18/2023 4:32 PM AIRCONDITIONING ENGINEER Hospital Encounter [facility] [address] [place] [address] Joann Garcia MD [address] [place], [place] [id number] Vik Shaver MD [address] [place], [place] [id number] Cerebrovascular accident (CVA), unspecified mechanism (HCC) (Primary Dx) Discharge Disposition: Discharge to home, home health skilled care Social History Tobacco Use Types Packs/Day [...] on file Legal Sex 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 AIRCONDITIONING ENGINEER Gender Identity Not on file Sexual Orientation Not on file documented as of this encounter Last Filed Vital Signs Vital Sign Reading Time Taken Comments Blood Pressure 126/98 07/18/2023 1:00 PM AIRCONDITIONING ENGINEER Pulse 93 07/18/2023 3:00 PM AIRCONDITIONING ENGINEER Temperature 36.5 ??C (97.7 ??F) 07/18/2023 1:24 PM CS T Respiratory Rate 16 07/18/2023 3:00 PM AIRCONDITIONING ENGINEER Oxygen Saturation 95% 07/18/2023 2:00 PM AIRCONDITIONING ENGINEER Inhaled Oxygen Concentration - - Weight 54.9 kg (121 lb 2 oz) 07/16/2023 5:17 PM AIRCONDITIONING ENGINEER Height 157.5 cm (5' 2 ) 07/16/2023 5:17 PM AIRCONDITIONING ENGINEER Body Mass Index 22.15 07/16/2023 5:17 PM AIRCONDITIONING ENGINEER documented in this encounter Discharge Summaries * Lex William MD - 07/18/2023 11:55 AM CST Inpatient Discharge Summary BRIEF OVERVIEW Admitting Provider: Vik Shaver MD Discharge Provider: Joann Garcia MD Primary Care Physician at Discharge: Fadi Clemons DO [phone] Admission Date: 07/16/2023 Discharge Date: 07/18/2023 Admission Location: [facility] Problems/Diagnoses: Principal Problem: Cerebrovascular accident (CVA), unspecified mechanism (HCC) Resolved Problems: No resolved hospital problems. DETAILS OF HOSPITAL STAY Presenting Problem/History of Present Illness: Juliet Dunlap is a 88 y.o. 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 Hx [...] She got up and stood, but continued tofeel weakness then had another fall of similar occurrence later that day. She does not localize herweakness to one particular side. Denies lightheadedness, room spinning sensation. She has had fallsin the past but they were from tripping [...] that time. They decided to go to [facility] and on the way had another episode lasting a few minutes. Denies history of stroke, seizures, heart attack. Reports family history ofheart disease on father side but denies history of stroke, seizures, heart attack. Denies smoking, alcohol, drugs. She reports she used to be on Eliquis 5 BID until a few weeks ago when she was told to stop the Eliquis and restart taking Aspirin 81mg. Reports compliance with her medications. Upon arrival to [facility] ED, BP 164/82, BG 85. Initial NIHSS 1 (chronicasymmetric smile). Neurologic exam on presentation to [facility] significant for normal neurologic exam. HCT showed no acute hemorrhage. CTAdemonstrated possible L M2 occlusion. Patient was a NOGO x2 due to no disabling deficits. Upon arrival to the floor, BP 181/78. NIHSS 2 (1 right facial droop, 1 right arm drift). Patient reports feeling back to baseline. She then reported right hand minor difficulty with fine hand movements. Hospital Course: #Acute Ischemic Stroke (Territory: Left M2) Juliet Dunlap was admitted with acute ischemic stroke attributed to Embolism affecting Middle Cerebral. Etiology: ESUS (favor cardioembolism) Neurologic exam on admission: Mental Status:The patient is alert and oriented to person, place, time and reason for visit. Attention is intact. DOTW backward without error. 7 quarters in $1.75. Language: The patient has fluent speech and follows commands. Cranial Nerves II-XII: Visual hidalgo are full to confrontation. R eyelid droop. PERRL. Extraocular movements are full and without sustained nystagmus. V1-3 is intact to light touch bilaterally. Face is asymmetric with right lower face NLFF, hearing is intact bilaterally to finger rub (L>R) and palate is up-going bilaterally. There is no dysarthria. Motor: Strength is 4+/5 BUE and 4+/5 RLE, 5/5 LLE. Paratonia BUE. There is right arm pronator drift. Left arm orbiting around right. Reflexes: Reflexes are 2+ at the biceps, brachioradialis and patellae. Sensation: Light touch is normal in all four extremities. Coordination: Finger to nose is normal bilaterally. HKS normal bilaterally. Ambulation:Gait is narrow-based with normal arm swing. 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 The current [place] Stroke Association guidelines recommend long-term treatment with a high-intensity statin even in patient's with LDL level <100, if tolerated. (The SPARCL trial, Prashanth et al. 2010, showed that statin treatment should not be titrated to LDL level.) Additionally, the patient was given ASA 81 and Plavix 300 mg, and continued on aspirin 81 mg PO qD indefinitely and Plavix 75 mg PO qD x21 days for secondary prevention (CHANCE trial: minor stroke NIHSS =< 3 or high-risk TIA ABCD2 >= 4). After the end-date (specified below), the patient should NOT be on dual- antiplatelet therapy. Accordingly her stroke regimen is summarized as the following: Medication Dosage Duration Clopidogrel (Plavix) 75 mg daily 21 days (end date 08/06/2023) Aspirin 81 mg daily Indefinitely, starting 07/16 Atorvastatin (Lipitor) 40 mg daily Indefinitely *Eliza SHEPPARD et al. Comparison of warfarin and aspirin for symptomatic intracranial arterial stenosis. N. Engl. J. Med. 2005. 352:1305-16. SMART Consult was performed and PT/OT recommended discharge to with family with PT/OT. Risk factors were optimized on discharge. Patient and family were advised regarding the risks of new stroke, signs and symptoms of stroke, and how best to avoid a further event. Disposition: Per PT/OT evaluation, the patient was discharged to home with family with home health PT/OT. Follow-up: The patient will follow-up in the outpatient [facility]. 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 s/p renal transplant - Prednisone 5 daily - Tacrolimus 1mg in morning, 0.5mg in evening - Acyclovir 200 BID - Renal transplant #HTN Restarted home medications Test Results Pending at Discharge: Pending Labs Order Current Status Tacrolimus level trough In process aPTT In process Discharge Details Physical Exam at Discharge: Discharge Condition: good Pulse: 76 Resp: 15 BP: 146/64 Temp: 36.3 ??C (97.4 ??F) Weight: 54.9 kg (121 lb 2 oz) Pertinent Exam Findings at Discharge: See progress note from day of discharge Discharge Disposition: Code Status at Discharge: Full Discharge Instructions: General Instructions: - Instructions as provided and reviewed in the After Visit Summary provided at discharge. - It is recommended that you follow up with your primary care provider within one week for further coordination and optimization of care and medication regimen. - It is recommended that you take your medications as prescribed and that you discuss any new medications with your outpatient providers.. Please reach out to your outpatient Providers with questionsor concerns or if you have any symptoms concerning for side-effects. Do not discontinue any medications without first speaking to your doctor. - If you have questions about your hospitalization after discharge then please contact us at [phone] and ask for Karishma Cruz MD MSc. Medication additions: - Atorvastatin 40 mg daily - Plavix 75 mg daily until you run out of pills (no need to continue after) Follow Ups: - You have been referred for follow-up at the: Stroke [facility]: [phone] located at [facility] ([facility]): [address] [place] [address], [place]. You can find more information about our Neurology Specialty Clinics here: [email or web address] Patientshould expect to be contacted with appointment details within the next week if their appointment has not already been finalized. If you have not heard from the office or if you need to change/cancel your appointment please contact the office at the telephone number provided. - It is recommended that you have a primary care provider for further coordination of care in the outpatient setting. If you do not have a primary care provider you could consider calling our PrimaryCare Clinic to schedule an appointment at [phone] OR reach out to the Community [facility]arinets at [facility] (Minal Fernandez [phone] ) if you would like assistance getting an appointment with a primary care provider. Diet Instructions You should follow a low salt diet meaning adding no salt to food and seeking out low salt food products in the grocery store. You should have plenty of vegetables, fruits, whole grains, and fat-free or low- fat dairy products.These foods contain nutrients that can help keep blood pressure under control. You should eat heart-healthy kinds of fat to reduce the buildup of plaque in your blood vessels. Salt: 1. Do not salt food at the table. Use very little salt, if any, when you cook. (This includes all forms of sodium chloride such as garlic salt, pink Himalayan salt, sea salt, kosher salt etc) 2. Choose carefully when you eat away from home. Restaurant foods can be very high in sodium. 3. Look at the back of labels and choose foods <240mg of sodium for the serving you would eat. 4. Eat plenty of fruits and vegetables that are high in potassium. Good fruit choices include bananas, apricots, oranges, cantaloupe, and apples. High- potassium vegetables include potatoes, sweet potatoes, spinach, zucchini, and tomatoes. Cholesterol 1. Eat very little saturated fat and trans fat. These types of fat can raise the low-density lipoprotein, or LDL (???bad?? ), cholesterol in your blood. Saturated fat is found in foods from animals, such as fatty meats, whole milk, butter, cream, and other dairy foods made with whole milk. It is also in tropical oils (palm, palm kernel, and coconut). It may be in fried foods, crackers, and chips so best to avoid these foods. 2. Choose unsaturated fats (heart-healthy fats), such as soybean, canola, olive, or sunflower oil. Liquid or soft tub margarines are also fine. Other Instructions Ambulatory referral to Home Health Service Line: Home Health Primary disciplines requested: Physical Therapy Secondary disciplines requested: Occupational Therapy Home Health Services: Therapy to Eval/Tx Therapy instructions: ADL/ ladl management Evaluation/treatment Home safety evaluation Requested Start of Care Date: 24-48 hours Physician to follow patient's care (the person listed here will be responsible for signing ongoing orders): PCP I attest that I or another qualified licensed provider saw the patient 90 days prior to or 30 days post admission and this face to face encounter meets the necessary Home Health requirements. The face to face encounter occurred on (date): 07/18/2023 The encounter with the patient was in whole, or in part, for the following medical condition, whichis the primary reason for home health care. (List medical condition): Stroke I certify that, based on my findings, the following services are medically necessary skilled home health services: Therapy to Eval/Tx Clinical findings that support the need for home care: Medical condition requiring skilled assessment/education Frequent falls requiring safety eval/therapy I certify that my clinical findings support patient's homebound status. Homebound criteria met because: Poor endurance Abnormal gait/unsteady balance resulting in fall risk Home Health: [facility] Contact number: [phone] Services: Physical therapy, occupational therapy, and Nursing The [employer] will be contacting you to set up a start of care date. If you have any questions, please contact the [employer] directly. The contact number is listed above. Thank you! Discharge Medications: Current Medications TAKE these medications predniSONE 5 mg tablet TAKE 1 TABLET(5 MG) BY MOUTH DAILY Commonly known as: DELTASONE This medication is very important: It prevents organ rejection. * tacrolimus 1 mg immediate-release capsule Take 1 capsule (1 mg total) by mouth every morning This medication is very important: It prevents organ rejection. * tacrolimus 0.5 mg immediate-release capsule Take 1 capsule (0.5 mg total) by mouth nightly This medication is very important: It prevents organ rejection. acyclovir 200 mg capsule Take 1 capsule (200 mg total) by mouth 2 (two) times a day Commonly known as: ZOVIRAX This medication is very important: It prevents dangerous infection. aspirin 81 mg enteric coated tablet Take 1 tablet (81 mg total) by mouth daily cholecalciferol 2000 unit tablet Take 1 tablet (2,000 Units total) by mouth daily Commonly known as: VITAMIN D-3 cyanocobalamin 100 mcg tablet Take 1 tablet (100 mcg total) by mouth daily For: prevention of vitamin B12 deficiency Commonly known as: Vitamin B-12 furosemide 20 mg tablet Take 1 tablet (20 mg total) by mouth daily Commonly known as: LASIX lisinopriL 10 mg tablet TAKE 1 TABLET(10 MG) BY MOUTH DAILY Commonly known as: PRINIVIL,ZESTRIL metoprolol tartrate 75 mg tablet immediate release tablet TAKE 1 TABLET(75 MG) BY MOUTH TWICE DAILY Commonly known as: LOPRESSOR sodium bicarbonate 650 mg tablet Take 1 tablet (650 mg total) by mouth daily * This list has 2 medication(s) that are the same as other medications prescribed for you. Read the directions carefully, and ask your doctor or other care provider to review them with you. ASK your doctor about these medications levothyroxine 75 mcg tablet Take 1 tablet (75 mcg total) by mouth cork floor installer before breakfast Commonly known as: SYNTHROID Ask about: Which instructions should I use? Outpatient Follow-Up: Future Appointments Date Time Provider Department Center 11/09/2023 10:00 AM Paul Bradley OD [facility] OP 11/19/2023 10:45 AM [facility]NAL [facility] Renal [facility] Contact Information for Follow-ups Fadi Clemons DO Specialty: Family Medicine Relationship: PCP - General [address] [place] [address] DR TORRES [address] [place] [id number] Next Steps: Schedule an appointment as soon as possible for a visit Instructions: It is important you call to schedule a follow up appointment once you get home from the hospital. [facility] Home Care Services Specialty: Home Health and Hospice [address] [address] Next Steps: Follow up Questions: Service Line: Home Health Primary disciplines requested: Physical Therapy Secondary disciplines requested: Occupational Therapy Home Health Services: Therapy to Eval/Tx Therapy instructions: ADL/ ladl management Evaluation/treatment Home safety evaluation Requested Start of Care Date: 24-48 hours Physician to follow patient's care (the person listed here will be responsible for signing ongoing orders): PCP I attest that I or another qualified licensed provider saw the patient 90 days prior to or 30 days post admission and this face to face encounter meets the necessary Home Health requirements. The face to face encounter occurred on (date): 07/18/2023 The encounter with the patient was in whole, or in part, for the following medical condition, whichis the primary reason for home health care. (List medical condition): Stroke I certify that, based on my findings, the following services are medically necessary skilled home health services: Therapy to Eval/Tx Clinical findings that support the need for home care: Medical condition requiring skilled assessment/education Frequent falls requiring safety eval/therapy I certify that my clinical findings support patient's homebound status. Homebound criteria met because: Poor endurance Abnormal gait/unsteady balance resulting in fall risk Referral Status: Pending Authorization Cosigned by Rashard Wilkes MD at 07/18/2023 3:13 PM AIRCONDITIONING ENGINEER ONDITIONING ENGINEER ONDITIONING ENGINEER Associated attestation - Rashard Wilkes MD - 07/18/2023 3:13 PM AIRCONDITIONING ENGINEER I have seen and examined the patient on 07/18/23. I agree with the findings and plan of care as documented in the resident's/fellow's note.. documented in this encounter Discharge Instructions * Discharge Instructions* Lex William MD - 07/17/2023 7:58 AM AIRCONDITIONING ENGINEER Thank you for choosing us for your care. You were admitted to the Stroke Service for acute stroke of the left side of your brain. You were started on medications for prevention of stroke. During your hospitalization you received Aspirin to help prevent new clot formation,, Plavix to help prevent new clot formation,, and a statin for lowering of your cholesterol. General Instructions: - Instructions as provided and reviewed in the After Visit Summary provided at discharge. - It is recommended that you follow up with your primary care provider within one week for further coordination and optimization of care and medication regimen. - It is recommended that you take your medications as prescribed and that you discuss any new medications with your outpatient providers.. Please reach out to your outpatient Providers with questionsor concerns or if you have any symptoms concerning for side-effects. Do not discontinue any medications without first speaking to your doctor. - If you have questions about your hospitalization after discharge then please contact us at [phone] and ask for Karishma Cruz MD MSc. Medication additions: - Atorvastatin 40 mg daily - Plavix 75 mg daily until you run out of pills (no need to continue after) Follow Ups: - You have been referred for follow-up at the: Stroke [facility]: [phone] located at [facility]): [address] [place] [address]. You can find more information about our Neurology Specialty Clinics here: [email or web address] Patientshould expect to be contacted with appointment details within the next week if their appointment has not already been finalized. If you have not heard from the office or if you need to change/cancel your appointment please contact the office at the telephone number provided. - It is recommended that you have a primary care provider for further coordination of care in the outpatient setting. If you do not have a primary care provider you could consider calling our PrimaryCare Clinic to schedule an appointment at [phone] OR reach out to the Community [employer] at [facility] ([place] Jim [phone] ) if you would like assistance getting an appointment with a primary care provider. Call Your Doctor If: CALL [phone] IF YOU HAVE NEW SIGNS OF A STROKE, SUCH : * Your arm, leg or face suddenly becomes weak; especially on one side of your body. * Your arm, leg or face suddenly becomes numb; especially on one side of your body. * You suddenly become confused or have a hard time talking. * You began having double vision or are not able to see in one or both eyes. * You have a hard time walking, become dizzy or feel like you may fall. * Your head begins to hurt very badly. Activity: Follow the instructions given to you by Physical Therapy and Occupational Therapy. Additional Information: LIFESTYLE CHANGES TO REDUCE STROKE / TIA RISK: * If you are a smoker, you are advised to stop - smoking doubles your risk of stroke. Discuss aids to quit smoking with your primary care doctor. * If you drink alcohol, no more than one drink per day - more than this increases your risk of stroke. (One drink means 1.5 ounces of hard liquor, 4 ounces of wine or 12 ounces of beer.) * High blood pressure is a leading cause of stroke. If you have hypertension, work with your doctorto optimize blood pressure control * Include exercise in your daily routine. Check with your primary doctor regarding exercise restrictions. * If you are overweight, please discuss weight loss with you primary doctor. This also helps control stroke risk factors: high blood pressure, diabetes, and high cholesterol. * Diet: Mediterranean or DASH diet is recommended Resources: Stroke Family Warmline: The Warmline connects stroke survivors and their families with an ASA project manager/team coach who can provide support, helpful information or just a listening ear. Call our Stroke Family Warmline at 4-345-6-STROKE ( ). [place] Stroke Association: They provide comprehensive resources and support for stroke survivors,including online support communities. Website: www.stroke.org National Stroke Association: They offer stroke support groups in various cities across the [place] andonline resources. Website: www.stroke.org Find local or online support groups here: https://www.stroke.org/en/mund-nmg-lveakdw/hmebfgq-ktwfj-y eader-resources/zavggdl-bkbdnuy-jufbvw or [employer]/strokeassist Stroke Support Group Finder: This online tool helps you find stroke support groups in any area. Website: www.strokesupport.org Stroke Club: This is a support group hosted by the [facility]. They meetmonthly and provide education and support for stroke survivors and their families. Contact: [facility] Stroke Support Group: This group provides monthly meetings for stroke survivors, their families, and caregivers. Contact: [facility] Stroke Support Group: This group is designed to provide emotional and educational support for stroke survivors and their families. Contact: ONDITIONING ENGINEER ONDITIONING ENGINEER ONDITIONING ENGINEER ONDITIONING ENGINEER ONDITIONING ENGINEER ONDITIONING ENGINEER * Discharge Instr - Diet* Amisha Larsen RD - 07/17/2023 1:11 PM AIRCONDITIONING ENGINEER You should follow a low salt diet meaning adding no salt to food and seeking out low salt food products in the grocery store. You should have plenty of vegetables, fruits, whole grains, and fat-free or low- fat dairy products.These foods contain nutrients that can help keep blood pressure under control. You should eat heart-healthy kinds of fat to reduce the buildup of plaque in your blood vessels. Salt: 1. Do not salt food at the table. Use very little salt, if any, when you cook. (This includes all forms of sodium chloride such as garlic salt, pink Himalayan salt, sea salt, kosher salt etc) 2. Choose carefully when you eat away from home. Restaurant foods can be very high in sodium. 3. Look at the back of labels and choose foods <240mg of sodium for the serving you would eat. 4. Eat plenty of fruits and vegetables that are high in potassium. Good fruit choices include bananas, apricots, oranges, cantaloupe, and apples. High- potassium vegetables include potatoes, sweet potatoes, spinach, zucchini, and tomatoes. Cholesterol 1. Eat very little saturated fat and trans fat. These types of fat can raise the low-density lipoprotein, or LDL (???bad?? ), cholesterol in your blood. Saturated fat is found in foods from animals, such as fatty meats, whole milk, butter, cream, and other dairy foods made with whole milk. It is also in tropical oils (palm, palm kernel, and coconut). It may be in fried foods, crackers, and chips so best to avoid these foods. 2. Choose unsaturated fats (heart-healthy fats), such as soybean, canola, olive, or sunflower oil. Liquid or soft tub margarines are also fine. ONDITIONING ENGINEER * Discharge Instr - Other Orders* Severino Teran RN - 07/18/2023 10:18 AM AIRCONDITIONING ENGINEER [facility]: Jose Guadalupe [facility] Contact number: [phone] Services: Physical therapy, occupational therapy, and Nursing The [employer] will be contacting you to set up a start of care date. If you have any questions, please contact the [employer] directly. The contact number is listed above. Thank you! It is important you call to schedule a follow up appointment once you get home from the hospital. Fadi Clemons DO [phone] ONDITIONING ENGINEER ONDITIONING ENGINEER ONDITIONING ENGINEER documented in this encounter Medications at Time of Discharge aspirin 81 mg enteric coated tablet Take 1 tablet (81 mg total) by mouth daily cholecalciferol (VITAMIN D-3) 2000 unit tablet Take 1 tablet (2,000 Units total) by mouth daily 30 tablet 11 05/15/2022 cyanocobalamin (Vitamin B-12) 100 mcg tablet Take 1 tablet (100 mcg total) by mouth daily furosemide (LASIX) 20 mg tablet Take 1 tablet (20 mg total) by mouth daily levothyroxine (SYNTHROID) 75 mcg tablet Take 1 tablet (75 mcg total) by mouth cork floor installer before breakfast predniSONE (DELTASONE) 5 mg tabletIndications :Kidney replaced by transplant TAKE 1 TABLET(5 MG) BY MOUTH DAILY 30 tablet 11 07/07/2023 tacrolimus 0.5 mg immediate-release capsuleIndication s:Kidney replaced by transplant Take 1 capsule (0.5 mg total) by mouth nightly 30 capsule 05/25/2023 tacrolimus 1 mg immediate-release capsuleIndication s:Kidney replaced by transplant Take 1 capsule (1 mg total) by mouth every morning 30 capsule 05/25/2023 acyclovir (ZOVIRAX) 200 mg capsule Take 1 capsule (200 mg total) by mouth 2 (two) times a day 60 capsule 11 04/10/2023 4 sodium bicarbonate 650 mg tablet Take 1 tablet (650 mg total) by mouth daily 30 tablet 11 12/26/2022 4 atorvastatin (LIPITOR) 40 mg tablet Take 1 tablet (40 mg total) by mouth daily 30 tablet 1 07/19/2023 4 clopidogreL (PLAVIX) 75 mg tablet Take 1 tablet (75 mg total) by mouth daily for 19 doses 19 tablet 07/19/2023 4 lisinopriL (PRINIVIL,ZESTRIL ) 10 mg tablet TAKE 1 TABLET(10 MG) BY MOUTH DAILY 90 tablet 3 05/07/2023 4 metoprolol tartrate (LOPRESSOR) 75 mg tablet immediate release tablet TAKE 1 TABLET(75 MG) BY MOUTH TWICE DAILY 180 tablet 3 09/25/2022 4 documented as of this encounter Ordered Prescriptions Prescription Sig Dispense Quantity Refills Last Filled Start Date End Date clopidogreL (PLAVIX) 75 mg tablet Take 1 tablet (75 mg total) by mouth daily for 19 doses 19 tablet 07/19/2023 11/03/2023 atorvastatin (LIPITOR) 40 mg tablet Take 1 tablet (40 mg total) by mouth daily 30 tablet 1 07/19/2023 08/20/2023 documented in this encounter Discharge Disposition Disposition Code Departure Means Destination Comment s Discharge to home, home health skilled care documented in this encounter Progress Notes * Severino Teran RN - 07/18/2023 12:11 PM CST 07/17/23 1234 Discharge Summary Discharge Disposition Private residence Equipment/Provider Needs Home Provider Services Needs Identified Home Care Agency Information Home Care Agency Type #1: Occupational Therapy;Physical Therapy;Long-Term Home Care Agency Name [facility] Home Care Agency Order Faxed to [facility] Home Care Agency Used? Not Needed Discharge Additional Assistance Does the patient need discharge transport arranged? No Post Discharge Care Provider Post Discharge Care Plan Next level of care provider has access to complete EMR Patient is medically stable to discharge home today. Patient will have transportation provided by the patient's family. CM made note in patient instructions to call PCP for follow up, and to call [facility] to inquire about referral. CM sent order/dc summary via [employer]. Referral not conf irmed accepted at this time. No additional needs noted at this time. ADELINA Quarles, signal intelligence analyst ONDITIONING ENGINEER * Lex William MD - 07/18/2023 9:04 AM CST Stroke Progress Note Patient Name: Juliet Dunlap Date of / Age: 9 1935 / 88 y.o. Gender: female Date of Service: 07/18/2023 SUBJECTIVE CHIEF COMPLAINT: Juliet Dunlap is a 88 y.o. 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 Interval History: - NAEON, intermittently hypertensive - Patient feels she is doing well, improving - Labs stable - TTE - EF 71%, no thrombi Plan: - Will restart Lisinopril 10 mg daily and Metoprolol 75 mg BID - Event monitor placement - Discharge with home health Medications Scheduled Medications: acyclovir, 200 mg, oral, BID aspirin, 81 mg, oral, Daily atorvastatin, 40 mg, oral, Daily clopidogreL, 75 mg, oral, Daily enoxaparin, 40 mg, subcutaneous, Daily-2100 furosemide, 20 mg, oral, Daily levothyroxine, 75 mcg, oral, Daily - 0600 lisinopriL, 10 mg, oral, Daily metoprolol tartrate, 75 mg, oral, BID predniSONE, 5 mg, oral, Daily tacrolimus, 0.5 mg, oral, Nightly tacrolimus, 1 mg, oral, QAM Continuous Medications: PRN Medications: acetaminophen perflutren lipid (DEFINITY) 1.5 mL in sodium chloride 0.9% 10 mL syringe Objective 24hr Min/Max: Temp Min: 36.4 ??C (97.5 ??F) Max: 36.9 ??C (98.4 ??F) Pulse Min: 76 Max: 95 BP Min: 135/72 Max: 180/80 Resp Min: 13 Max: 18 SpO2 Min: 93 % Max: 98 % I/O: Intake/Output Summary (Last 24 hours) at 07/18/2023 0908 Last data filed at 07/18/2023 0525 Gross per 24 hour Intake 150 ml Output 475 ml Net -325 ml Physical Exam GENERAL: appears stated age, sitting up comfortably in bed HEENT: NC/AT, MMM CV: regular rate and rhythm LUNGS: no increased work of breathing ABDOMEN: soft, nontender, nondistended EXTREMITIES: warm and well-perfused SKIN: warm and dry : incontinent Mental Status:The patient is alert and oriented to person, place, time and reason for visit. Attention is intact. DOTW backward without error. 7 quarters in $1.75. Language: The patient has fluent speech and follows commands. Cranial Nerves II-XII: Visual hidalgo are full to confrontation. R eyelid droop. PERRL. Extraocular movements are full and without sustained nystagmus. V1-3 is intact to light touch bilaterally. Face is asymmetric with right lower face NLFF, hearing is intact bilaterally to finger rub (L>R) and palate is up-going bilaterally. There is no dysarthria. Motor: Strength is 4+/5 BUE and 4+/5 RLE, 5/5 LLE. [place] BUE. There is right arm pronator drift. Left arm orbiting around right. Reflexes: Reflexes are 2+ at the biceps, brachioradialis and patellae. Sensation: Light touch is normal in all four extremities. Coordination: Finger to nose is normal bilaterally. HKS normal bilaterally. Ambulation:Gait is narrow-based with normal arm swing. Lab/Radiology/Diagnostic Review: Recent Labs Lab Units 07/17/232108 WBC K/cumm 5.9 HEMOGLOBIN g/dL 12.8 HEMATOCRIT % 39.2 PLATELETS K/cumm 129* Recent Labs Lab Units 07/16/23 1133 07/16/23 1108 APTT sec 28 -- INR -- 0.9 Recent Labs Lab Units 07/17/23 2109 07/16/23 2320 07/16/23 1133 SODIUM mmol/L 135 < > 139 POTASSIUM PLASMA mmol/L See Comment < > 4.7 CHLORIDE mmol/L 104 < > 104 CO2 mmol/L 23 < > 27 ANIONGAP mmol/L 8 < > 8 GLUCOSE mg/dL 101 < > 90 BUN SERUM mg/dL 21 < > 28* CREATININE mg/dL 0.85 < > 0.94 CALCIUM mg/dL 9.6 < > 9.9 ALBUMIN g/dL -- -- 4.0 ALK PHOS Units/L -- -- 113 ALT Units/L -- -- 16 AST Units/L -- -- 28 BILIRUBIN TOTAL mg/dL -- -- 0.6 < > = values in this interval not displayed. Recent Labs Lab Units 07/16/23 2320 HEMOGLOBIN A1C % 5.8* Recent Labs Lab Units 07/16/23 2320 CHOLESTEROL mg/dL 146 TRIGLYCERIDES mg/dL 99 HDL mg/dL 60 Neuro Imaging XR Chest 1 View Result Date: 07/17/2023 The patient is rotated. Small left-sided pleural effusion with associated partial left lower lobe collapse is slightly increased from prior radiograph. No pneumothorax. Cardiac silhouette is stable from prior radiograph. Mitral annular calcifications again noted. Dictated by: Ivan Rosado MD The radiology attending physician has personally reviewed this study, and had reviewed and/or edited thiswritten report and agrees with it. Electronically signed by: David Rubio M.D. CTA/CTP Rapid Stroke (C) Result Date: 07/16/2023 1. Acute left proximal M2 occlusion with subtle 14 cc perfusion defect (Tmax >4 seconds) within the left MCA territory in the frontal lobe measuring 14 mL. 2. No evidence of acute stroke or intracranial hemorrhage on noncontrast head CT. Periventricular white matter disease likely represent sequela of chronic small vessel disease. The Critical results were discussed with Dr Verduzco by Dr. Elinor martinez on 07/16/2023 at 11:[address] head CT 11:48 AM for CTA. Dictated by: Elinor Alford MD The radiology attending physician has personally reviewed this study, and had reviewed and/or edited this written report and agrees with it. Electronically signed by: Danna Ying M.D. I have reviewed the above imaging/diagnostic results and discussed with my attending. Assessment and Plan Juliet Dunlap is a 88 y.o. 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 Last known at baseline at on 07/16. NIHSS 1 (chronic facial droop) on initial assessment. NOGO for thrombolytics/thrombectomy. Impression/etiology: ESUS (favor cardioembolism) # Left M2 Ischemic Stroke Etiology: cardioembolism Risk Factors: Age > 55, hypertension, and coronary artery disease Work up: - LDL 66, a1C 5.8 - Troponins 8 -> 10 then stopped - Anti Xa <0.10 - EKG with twi lead III, sinus rhythm - HCT NAIA, a few small chronic lacunes - CTA shows L M2 occlusion - TTE - EF 71%, no thrombi - CXR with small pleural effusion and partial LLL collapse slightly increased - Loop on discharge: Yes Secondary Prevention: - ASA 81mg and Plavix 75mg for 21d per POINT/CHANCE - Atorvastatin 40mg Daily Blood Pressure: - Stroke BP Goal: SBP <220, DBP <120 for 24 hours, then gradual normotension - as managed under HTN Risk Factor/Etiology Work-up: - Monitor on telemetry Lifestyle modifications: Encourage smoking cessation if applicable, regular exercise, a healthy diet, and limited alcohol intake. 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 - Prednisone 5 daily - Tacrolimus 1mg in morning, 0.5mg in evening - Acyclovir 200 BID - Renal transplant c/s #HTN - Restarting home Lisinopril 10 mg daily and Metoprolol 75 mg BID - Lasix 20 #Hypothyroidism - Levothyroxine 0.75mcg Disposition: Home with Home Health Code Status: Full Code Diet: Adult Diet Regular, Restricted; 2 GM Sodium DVT Prophylaxis: Lovenox Lines/Tubes: Peripheral IV 07/17/23 22 G Left;Posterior Forearm (Active) Number of days: 1 Lex William MD Neurology Resident Physician, PGY-2 [facility] Stroke Neurology [phone] Cosigned by Rashard Wilkes MD at 07/18/2023 12:31 PM AIRCONDITIONING ENGINEER ONDITIONING ENGINEER ONDITIONING ENGINEER Associated attestation - Rashard Wilkes MD - 07/18/2023 12:31 PM AIRCONDITIONING ENGINEER I have seen and examined the patient on 07/18/23. I agree with the findings and plan of care as documented in the resident's/fellow's note.. * Darby Pride, OT - 07/17/2023 11:23 AM CST Occupational Therapy Occupational Therapy Initial Assessment NOTE:This is a summary note for the desouza assessments completed during the evaluation session. For full details, review chart review for all flowsheets documented on by this Occupational Therapist on this date. Vital signs documented in vital signs flowsheet. Assessment Plan Plan Plan: If this is the last note, consider this the discharge summary OT Recommendation and Plan Recommendation/Plan OT Recommendation: Home with family, Home with intermittent assist, Home Health OT OT Frequency during current admission: One-time visit (Discharge from this service) (0) OT - OK to Discharge: Yes OT Evaluation Complete: Yes General Information General Chart Reviewed: Yes Session Type: Evaluation (initial discharge) OT Received On: 07/17/23 Safe Environment: Arm band checked, Patient found in supine Subjective: Agreeable to Therapy Family/Caregiver Present: Yes Occupational Therapy-Patient Goal: pt indicate hopes her R hand returns to usual function Precautions Precautions Precautions: Fall risk Home Living Home Living Type of Home: House Home Layout: Bed/bath upstairs Bathroom Shower/Tub: Tub/shower unit Prior Function Prior Function Level of [place]: Independent functional transfers, Needs assistance with ADLs, Needs assistance with homemaking Lives With: Spouse Receives Help From: Spouse/Significant other Driving: Yes Vocational/Occupation: Retired Fall within the last 6 months: Yes Fall within the last 6 months comment: 2 falls in the past week Prior Function Comments: Pt. reports assists her in/out of shower for safety. Pt. reports that she does some cooking and homemaking; sets up her medication in a reminder box. Activities of Daily Living Grooming Grooming: Where assessed: Standing at sink Grooming: Level of assistance: Distant Supervision LE Dressing LE Dressing: Where assessed: Edge of bed LE Dressing: Level of assistance: Independent Toileting Toileting: Where assessed: Toilet Toileting: Level of assistance: Modified Independent Toilet Transfers Toilet Transfer From: Bed Toilet Transfer Type: To and from Toilet Transfer to: Standard toilet Toilet Transfers: Supervision Pain Pain Assessment Pain Assessment: No/denies pain Cognition Cognition Arousal/Alertness: Alert, Appropriate responses to stimuli Attention Span: Appears intact Memory: Appears intact Orientation : Oriented X4 (person, place, time, situation) Following Commands: Follows all commands and directions without difficulty Compliance/Behavior: Easy to engage Short Blessed Test What year is it now?: Correct What month is it now?: Correct Repeat this name and address after me: Sixto Long [address] [place] [address] Without looking at the clock, tell me what time it is: Correct-within one hour Count aloud backwards from 20-1: 0 Errors Say the months of the year backwards in reverse order: 0 Errors Repeat the name and address I asked you to remember: 0 Errors Short Blessed Total Score: 0 Trails A & B ([place] Making Test) Unable to complete Trails A due to: Does not have glasses (and dominant hand weakness) Unable to complete Trails B due to: Does not have glasses (and dominant hand weakness) Patient completed Trails B Verbal in (seconds): 35 Trails B Verbal # of errors: 0 Trails B Verbal score evaluation: WNL 6 Clicks Daily Activity - 6 Clicks Putting on and taking off regular lower body clothing: None Bathing: A little Toileting: None Putting on and taking off upper body clothing: None Personal Grooming: None Eating Meals: None Total Score (range 6-24): 23 Score Interpretation: 23 Balance Transfers Transfer 1 Transfer From 1: Sit Transfer Type 1: To and from Transfer to 1: Stand Transfer Level of Assistance 1: Distant supervision Bed Mobility Bed Mobility 1 Bed Mobility From 1: Supine Bed Mobility Type 1: To and from Bed Mobility to 1: Edge of bed Level of Assistance 1: Independent RUE Assessment RUE Assessment RUE Assessment: Exceptions to WFL (AROM WFL; incoordination as noted above) LUE Assessment LUE Assessment LUE Assessment: Within Functional Limits Safe Environment End of Session Safe Environment End of Therapy Session: Patient left supine in bed, Call light within reach, Overbed table within reach Other Comments OT Goals Multi-Disciplinary Problems (from Occupational Therapy) Active Problems Not on file ONDITIONING ENGINEER * Sal Leigh - 07/17/2023 9:20 AM CST Spiritual Care Note Post Tensioning Ironworker DONNA Durand, [facility] 07/17/23 0920 Time Spent Start Time 0920 Stop Time 0940 Time Calculation (min) 20 min Patient Spiritual Assessment Spirituality Assessed Focus of Care Clinical Encounter Type Visited With Patient Response Type Routine visit Routine Visit Introduction Reason for visit SMART (stroke team);Support Referral To Post Tensioning Ironworker Outcomes and Progress Demonstrating care and respect Achieved Establish rapport and connectedness Achieved Interventions Interventions Offer emotional support;Offer spiritual/anglican support;Prayer ONDITIONING ENGINEER * Kesha Farnsworth, PT - 07/17/2023 8:44 AM CST Physical Therapy Physical Therapy Initial Discharge NOTE: This is a summary note for the desouza assessments completed during the evaluation session. For full details, review chart review for all flowsheets documented on by this physical therapist on thisdate. Vital signs documented in vital signs flowsheet. Assessment Assessment Prognosis: Good Problem List: Decreased mobility Problem List Comments: PT Diagnosis: increased falls and intermittent aphasia results in above listed activity deficits and impairments which prevent full participation in home and community mobility Barriers to Discharge: None Plan Plan Plan : Discharge, If this is the last note, consider this the discharge summary PT Recommendation and Plan Recommendation/Plan PT Recommendation/Plan: Home with family, Home with intermittent assist, Home Health PT Patient at high risk for: Falls, Injury due to reduced functional status PT Recommendation/Plan Comments: Patient in agreement with current dispo. No further acute care PT indicated. PT Frequency during current admission: Discharge from this Service Treatment/Interventions during current admission: Balance Training, Bed mobility, Endurance training, Equipment eval/education, Functional activity, Functional transfer training, Gait training, Neuromuscular re-education, Stair training, Strengthening, Therapeutic activity, Therapeutic exercise, Transfer training PT Equipment Recommended: None Progress during current admission: Discontinue PT PT Evaluation Complete: Yes General Information General Chart Reviewed: Yes Session Type: Evaluation (Initial discharge) PT Received On: 07/17/23 Safe Environment: Arm band checked, Patient found sitting at edge of bed, Gait belt utilized for all out of bed mobility Subjective: Agreeable to Therapy Family/Caregiver Present: No Physical Therapy-Patient Goal: Move around and get stronger. Prior Function Prior Function Level of [place]: Independent functional transfers, Independent with ambulation, Needs assistance with ADLs, Needs assistance with homemaking Lives With: Spouse Receives Help From: Spouse/Significant other (time stamp assembler assist) Driving: Yes Fall within the last 6 months: Yes Fall within the last 6 months comment: 2; reports falling twice on Wednesday 07/12 when she stated mel was not doing what she told it to. Home Living Home Living Type of Home: House Home Layout: Two level, Bed/bath upstairs, Stairs with rails # of Steps-Railed: 12 (R railing) Home Access: Stairs to enter without rails Entrance Stairs-Rails: None Entrance Stairs-Number of Steps: 2 Home Mobility Equipment-Available: Wheeled walker Home Mobility Equipment-Currently Using: None Precautions Precautions Precautions: Fall risk, Obstructive sleep apnea Precaution Handout Issued: No Precaution Comments: Verbally reviewed precautions with patient prior to mobility Pain Pain Assessment Pain Assessment: 0-10 Pain Score: 3 Pain Location: Hip Pain Orientation: Right Pain Interventions: Repositioned, Rest Cognition Cognition Arousal/Alertness: Alert, Appropriate responses to stimuli Orientation : Oriented X4 (person, place, time, situation) Following Commands: Follows all commands and directions without difficulty Safety Judgment: Good awareness of safety precautions Compliance/Behavior: Easy to engage 6 Clicks Basic Mobility - 6 Click How much difficulty does the patient have: Turning over in bed: None How much difficulty does the patient currently have: Sitting down and standing up from a chair witharms?: None How much difficulty does the patient have: Moving from lying on back to sitting on the side of the bed?: None How much difficulty does the patient have: Moving to and from a bed to a chair including wheelchair?: None How much help does the patient currently need: Walk in hospital room?: None How much help from another person does the patient currently need: Climbing 3-5 steps with a railing?: A little Total 6 Click Score (range 6-24): 23 Score Interpretation: 23 Bed Mobility Bed Mobility Bed Mobility: Yes Bed Mobility 1 Bed Mobility From 1: Supine Bed Mobility Type 1: To and from Bed Mobility to 1: Edge of bed Level of Assistance 1: Modified Independent (increased time to complete transfer) Bed Mobility Comments 1: safety Transfers Transfers Transfer: Yes Transfer 1 Transfer From 1: Sit Transfer Type 1: To and from Transfer to 1: Stand Technique 1: Sit to stand, Stand to sit Transfer Device 1: No device Transfer Level of Assistance 1: Distant supervision Trials/Comments 1: safety Transfers 2 Transfer From 2: Bed Transfer Type 2: To Transfer to 2: Toilet Technique 2: Ambulation Transfer Device 2: No device Transfer Level of Assistance 2: Distant supervision Trials/Comments 2: safety Balance Static Sitting Balance Static Sitting-Balance Support: No upper extremity supported, Feet supported Static Sitting-Sitting Surface: Bed Static Sitting-Level of Assistance: Independent Dynamic Sitting Balance Dynamic Sitting-Balance Support: No upper extremity supported, Feet supported Dynamic Sitting-Balance: Lateral lean, Forward lean, Reaching for objects Dynamic Sitting-Sitting Surface: Bed Dynamic Sitting-Level of Assistance: Independent Static Standing Balance Static Standing-Balance Support: No upper extremity supported Static Standing-Standing Surface: Floor Static Standing-Level of Assistance: Distant supervision Static Standing-Comment/# of Minutes: safety Dynamic Standing Balance Dynamic Standing-Balance Support: No upper extremity supported Dynamic Standing-Balance: Lateral lean, Forward lean Dynamic Standing-Standing Surface: Floor Dynamic Standing-Level of Assistance: Distant supervision Dynamic Standing-Comments: safety Ambulation Ambulation Ambulation: Yes Ambulation 1 Distance (ft) 1: 150 Surface 1: Level tile Device 1: Wheeled walker Assistance 1: Distant supervision, Standby Assist Gait: Requires verbal cues to 1: Use assistive device safely, Pace activity Gait Deviations 1: Posture - flexed, Turns - difficulty Quality of Gait 1: Patient needed frequent verbal cueing to improve negotiation of WW. Ambulation 2 Distance (ft) 2: 100 Surface 2: Level tile Device 2: No device Assistance 2: Distant supervision Gait: Requires verbal cues to 2: Pace activity Quality of Gait 2: Patient demonstrates improvements in gait without use of WW. Demonstrates improved trunk posture. Verbal cueing given for patient to pace activity and slow down. Stairs Stairs Stairs: Yes Stairs Number of Stairs 1: 12 Rails 1: Right Device 1: No device Assistance 1: Standby Assist RLE Assessment RLE Assessment RLE Assessment: Exceptions to WFL Strength RLE R Hip Flexion: 4/5 R Knee Flexion: 3+/5 R Knee Extension: 4+/5 R Ankle Dorsiflexion: 3+/5 R Ankle Plantar Flexion: 3+/5 LLE Assessment LLE Assessment LLE Assessment: Exceptions to WFL Strength LLE L Hip Flexion: 4/5 L Knee Flexion: 4/5 L Knee Extension: 4+/5 L Ankle Dorsiflexion: 4-/5 L Ankle Plantar Flexion: 4-/5 Safe Environment End of Session Safe Environment End of Therapy Session: Patient left supine in bed, Call light within reach, Overbed table within reach PT Goals Multi-Disciplinary Problems (from Physical Therapy) Active Problems Not on file ONDITIONING ENGINEER * Fiona Khalil, [facility] - 07/16/2023 6:03 PM CST Images from the original note were not included. Transplant Pharmacist Medication Reconciliation The transplant clinical nanofabrication specialist has completed a medication review with the patient/caregiver and has made the following edits to the medication list Medication additions - Furosemide Medication deletions - Trimethoprim - Pravastatin - Biotin - Eliquis Medication alterations - Levothyroxine from 100 mcg to 75 mcg daily Additional Information - None Home medications - following pharmacist reconciliation Medication List TAKE these medications predniSONE 5 mg tablet Important: It prevents organ rejection. Commonly known as: DELTASONE TAKE 1 TABLET(5 MG) BY MOUTH DAILY Pharmacy Comments * tacrolimus 1 mg immediate-release capsule Important: It prevents organ rejection. Take 1 capsule (1 mg total) by mouth every morning Pharmacy Comments * tacrolimus 0.5 mg immediate-release capsule Important: It prevents organ rejection. Take 1 capsule (0.5 mg total) by mouth nightly Pharmacy Comments acyclovir 200 mg capsule Important: It prevents dangerous infection. Commonly known as: ZOVIRAX Take 1 capsule (200 mg total) by mouth 2 (two) times a day Pharmacy Comments cholecalciferol 2000 unit tablet Commonly known as: VITAMIN D-3 Take 1 tablet (2,000 Units total) by mouth daily Pharmacy Comments cyanocobalamin 100 mcg tablet Commonly known as: Vitamin B-12 Take 1 tablet (100 mcg total) by mouth daily Pharmacy Comments furosemide 20 mg tablet Commonly known as: LASIX Take 1 tablet (20 mg total) by mouth daily Pharmacy Comments levothyroxine 100 mcg tablet Commonly known as: SYNTHROID Take 1 tablet (100 mcg total) by mouth cork floor installer before breakfast Pharmacy Comments lisinopriL 10 mg tablet Commonly known as: PRINIVIL,ZESTRIL TAKE 1 TABLET(10 MG) BY MOUTH DAILY Pharmacy Comments metoprolol tartrate 75 mg tablet immediate release tablet Commonly known as: LOPRESSOR TAKE 1 TABLET(75 MG) BY MOUTH TWICE DAILY Pharmacy Comments sodium bicarbonate 650 mg tablet Take 1 tablet (650 mg total) by mouth daily Pharmacy Comments * This list has 2 medication(s) that are the same as other medications prescribed for you. Read thedirections carefully, and ask your doctor or other care provider to review them with you. Allergies - following pharmacist reconciliation Cephalexin, Tape [adhesive], Tetracyclines, Nitrofurantoin, Tetracycline, Levofloxacin, and Codeine Fiona Khalil, PharmD, BCPS, BCTXP Solid Organ Transplant Clinical Hydrogen Power Plant Manager ONDITIONING ENGINEER documented in this encounter H&P Notes * Manjula Portillo MD - 07/17/2023 7:54 AM CST Images from the original note were not included. STROKE ADMISSION HISTORY AND PHYSICAL Date: 07/16/23 CARE TEAM Patient: Juliet Dunlap Primary Care Physician: Fadi Clemons DO Room: [id number] Attending Physician: @ATTENDING@ Subjective SUBJECTIVE Juliet Dunlap is a 88 y.o. 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 Hx [...] She got up and stood, but continued tofeel weakness then had another fall of similar occurrence later that day. She does not localize herweakness to one particular side. Denies lightheadedness, room spinning sensation. She has had fallsin the past but they were from tripping [...] that time. They decided to go to [facility] and on the way had another episode lasting a few minutes. Denies history of stroke, seizures, heart attack. Reports family history ofheart disease on father side but denies history of stroke, seizures, heart attack. Denies smoking, alcohol, drugs. She reports she used to be on Eliquis 5 BID until a few weeks ago when she was told to stop the Eliquis and restart taking Aspirin 81mg. Reports compliance with her medications. Upon arrival to [facility] ED, BP 164/82, BG 85. Initial NIHSS 1 (chronicasymmetric smile). Neurologic exam on presentation to [facility] significant for normal neurologic exam. HCT showed no acute hemorrhage. CTAdemonstrated possible L M2 occlusion. Patient was a NOGO x2 due to no disabling deficits. Upon arrival to the floor, BP 181/78. NIHSS 2 (1 right facial droop, 1 right arm drift). Patient reports feeling back to baseline. Past Medical/Surgical History Past Medical History: Diagnosis Date Abdominal pain Bruising CAD (coronary artery disease) CAD (coronary artery disease) 03/21/2020 Chronic UTI 03/21/2020 Drusen of optic disc, bilateral Fatigue Frequent urination GERD (gastroesophageal reflux disease) Gout Heart murmur Hiatal hernia schatzki ring HL (hearing loss) Hyperlipidemia Hypertension Hypothyroidism Migraines Peritoneal dialysis status (HCC) From 2009 to 2012 prior to transplant Postoperative delirium 02/2013 hallucinations s/p kidney transplant, saw flashes of color and puffs of smoke Renal failure received 1 episode chemo to try to save Kidney in 2008 [place] 2008 Past Surgical History: Procedure Laterality Date AV FISTULA PLACEMENT Left with declotting CARDIAC CATHETERIZATION 10/2008 CATARACT EXTRACTION Left 05/05/2018 CATARACT EXTRACTION W/ INTRAOCULAR LENS IMPLANT Right CENTRAL LINE PLACEMENT > 5 YEARS N/A 02/16/2013 CYSTOSCOPY 08/2013 with placement of TVT-O midurethral ring HERNIA REPAIR 09/2008 with Schatzki's ring KIDNEY TRANSPLANT 02/2013 PARATHYROIDECTOMY 1995 RHINOPLASTY STRABISMUS SURGERY TONSILLECTOMY 1943 VEIN LIGATION AND STRIPPING 1992 Home Medications HOME MEDICATIONS : acyclovir (ZOVIRAX) 200 mg capsule biotin 2,500 mcg capsule cholecalciferol (VITAMIN D-3) 2000 unit tablet cyanocobalamin (Vitamin B-12) 100 mcg tablet Eliquis 5 mg tablet levothyroxine (SYNTHROID) 100 mcg tablet lisinopriL (PRINIVIL,ZESTRIL) 10 mg tablet metoprolol tartrate (LOPRESSOR) 75 mg tablet immediate release tablet pravastatin (PRAVACHOL) 20 mg tablet predniSONE (DELTASONE) 5 mg tablet sodium bicarbonate 650 mg tablet tacrolimus 0.5 mg immediate-release capsule tacrolimus 1 mg immediate-release capsule trimethoprim (TRIMPEX) 100 mg tablet No current facility-administered medications for this encounter. Allergies: Allergies Allergen Reactions Cephalexin Other (See comments), Rash and Unknown Trouble with bladder Trouble with bladder Tape [Adhesive] Rash Tetracyclines Rash Nitrofurantoin Rash and Unknown Tetracycline Rash Levofloxacin Unknown Codeine Dizziness, Nausea & Vomiting, Nausea Only and Unknown Social History Social History Tobacco Use Smoking status: Never Smokeless tobacco: Never Substance and Sexual Activity Drug use: No Sexual activity: Defer Alcohol Use: Not At Risk (01/09/2023) AUDIT-C Frequency of Alcohol Consumption: Never Average Number of Drinks: Patient does not drink Frequency of Binge Drinking: Never Family History Family History Problem Relation Age of Onset Cancer Other Family history of Cancer; Kidney disease Other Family history of Renal disease; Stroke Other Family history of Stroke; Pancreatic cancer Mother Heart disease Father Review of Systems All symptoms negative except as per HPI. Objective OBJECTIVE Vitals: Arrival Vitals Temp 07/16/23 1129 36.9 ??C (98.4 ??F) Pulse 07/16/23 1129 77 Resp 07/16/23 1129 18 BP 07/16/23 1105 164/82 SpO2 07/16/23 1129 95 % Temp src -- Heart Rate Source -- Patient Position -- BP Location -- FiO2 (%) -- 24hr Min/Max: Temp Min: 36.9 ??C (98.4 ??F) Max: 36.9 ??C (98.4 ??F) Pulse Min: 71 Max: 80 BP Min: 164/82 Max: 184/80 Resp Min: 16 Max: 20 SpO2 Min: 94 % Max: 96 % Most Recent : Vitals: 07/16/23 1630 BP: 167/76 Pulse: 71 Resp: 20 Temp: SpO2: 95% No intake or output data in the 24 hours ending 07/16/23 1714 Physical Exam GENERAL: appears stated age, sitting up comfortably in bed HEENT: NC/AT, MMM CV: regular rate and rhythm LUNGS: no increased work of breathing ABDOMEN: soft, nontender, nondistended EXTREMITIES: warm and well-perfused SKIN: warm and dry : incontinent Mental Status:The patient is alert and oriented to person, place, time and reason for visit. Attention is intact. DOTW backward without error. 7 quarters in $1.75. Language: The patient has fluent speech and follows commands. Cranial Nerves II-XII: Visual hidalgo are full to confrontation. R eyelid droop. PERRL. Extraocular movements are full and without sustained nystagmus. V1-3 is intact to light touch bilaterally. Face is asymmetric with right lower face NLFF, hearing is intact bilaterally to finger rub (L>R) and palate is up-going bilaterally. There is no dysarthria. Motor: Strength is 4+/5 BUE and 4+/5 RLE, 5/5 LLE. [place] BUE. There is right arm pronator drift. Left arm orbiting around right. Reflexes: Reflexes are 2+ at the biceps, brachioradialis and patellae. Sensation: Light touch is normal in all four extremities. Coordination: Finger to nose is normal bilaterally. HKS normal bilaterally. Ambulation:Gait is narrow-based with normal arm swing. Lab/Radiology/Diagnostic Review: Hematology Lab History Latest Ref Rng & Units 09/19/2022 12:40 01/23/2023 13:30 05/22/2023 00:00 07/16/2023 11:33 Labs - Hematology WBC 3.8 - 9.9 K/cumm 3.7 5.4 6.3 Total Hb, POC 11.9 - 15.5 g/dL 12.6 12.4 13.0 Hct 35.6 - 45.5 % 39.1 39.1 39.6 Plt 150 - 400 K/cumm 95 144 142 Neutrophil abs 1.5 - 6.5 K/cumm 3.1 3.9 4.8 Lymphocytes, abs 0.8 - 3.3 K/cumm 0.3 0.7 0.6 SCRIBED Hematocrit 37.0 - 47.0 % 37.9 SCRIBED Hemoglobin 12.0 - 15.0 g/dL 11.8 SCRIBED WBC 4.5 - 10.0 k/cumm 6.0 SCRIBED Platelets 150 - 375 k/cumm 142 Details This result is from an external source. Chem/LFT Lab History Latest Ref Rng & Units 10/04/2022 00:00 01/23/2023 13:30 05/22/2023 00:00 07/16/2023 11:33 Labs-Chem/LFT Sodium 135 - 145 mmol/L 141 139 Creatinine 0.60 - 1.10 mg/dL 1.01 0.94 Bilirubin, total 0.1 - 1.2 mg/dL 0.6 AST 10 - 45 Units/L 28 ALT 7 - 45 Units/L 16 Alk phos 40 - 130 Units/L 113 SCRIBED Alkaline Phosphatase 38 - 126 Units/L 99 125 SCRIBED Alanine Transaminase (ALT) 6 - 35 Units/L 18 17 SCRIBED Potassium 3.4 - 5.0 mmol/L 4.8 SCRIBED Creatinine 0.7 - 1.0 mg/dl 1.30 CrCl- Actual Body Weight (Cockcroft-Gault) 34.3 26.2 37.4 Details This result is from an external source. Results for orders placed or performed during the hospital encounter of 03/14/21 XR Spine Cervical Complete 4 or 5 Views Narrative EXAMINATION: Cervical spine 4 views HISTORY: C2 fracture FINDINGS: AP, lateral, flexion-extension and open-mouth views of the cervical spine were performed with comparison made to 09/14/2020. There is no prevertebral soft tissue swelling. The patient's C2 fracture is partially obscured. Alignment at C1-C3 is normal with flexion and extension without listhesis. Mild anterolisthesis of C3 on C4 and C4 on C5 develops with flexion and partially reduces on extension. There is severe C5-6 degenerative disc disease. Atherosclerosis of the carotids is redemonstrated. There is unchanged mild alignment of the left lateral mass of C1 on C2. Impression Partially obscured nondisplaced dens fracture. 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 Electronically signed by: Parvez Connor M.D. Results for orders placed or performed during the hospital encounter of 06/19/20 XR Spine Cervical 2 or 3 Views Narrative EXAMINATION: XR SPINE CERVICAL 2 OR 3 VIEWS HISTORY: C2 fracture FINDINGS: 2 views of the cervical spine are compared to radiographs dated 06/19/2020. There is an unchanged nondisplaced dens fracture. There is normal motion with bending. 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 Multiple facet and uncovertebral joint arthropathy is unchanged. No prevertebral soft tissue swelling. Impression Healing nondisplaced dens fracture. Electronically signed by: George Vicente M.D. Assessment/Plan ASSESSMENT AND PLAN Juliet Dunlap is a 88 y.o. 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 Last known at baseline at on 07/16. NIHSS 1 (chronic facial droop) on initial assessment. NOGO for thrombolytics/thrombectomy. Impression/etiology: ESUS (favor cardioembolism) # Left M2 Ischemic Stroke Etiology: cardioembolism Risk Factors: Age > 55, hypertension, and coronary artery disease Work up: - LDL 66, a1C 5.8 - Troponins 8 -> 10 then stopped - Anti Xa <0.10 - EKG with twi lead III, sinus rhythm - HCT NAIA, a few small chronic lacunes - CTA shows L M2 occlusion - TTE pending - CXR with small pleural effusion and partial LLL collapse slightly increased - Loop on discharge: Yes Secondary Prevention: - ASA 81mg and Plavix 75mg for 21d per POINT/CHANCE - Atorvastatin 40mg Daily Blood Pressure: - Stroke BP Goal: SBP <220, DBP <120 for 24 hours, then gradual normotension - as managed under HTN Risk Factor/Etiology Work-up: - Monitor on telemetry Lifestyle modifications: Encourage smoking cessation if applicable, regular exercise, a healthy diet, and limited alcohol intake. 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 Will pursue full code pending ACP documents which says he will bring in. Diet: Adult Diet Regular, Restricted; 2 GM Sodium DVT Prophylaxis: Lovenox Manjula Portillo MD Neurology PGY2 Cosigned by Joann Garcia MD at 07/17/2023 5:05 PM AIRCONDITIONING ENGINEER ONDITIONING ENGINEER ONDITIONING ENGINEER ONDITIONING ENGINEER ONDITIONING ENGINEER ONDITIONING ENGINEER ONDITIONING ENGINEER ONDITIONING ENGINEER ONDITIONING ENGINEER ONDITIONING ENGINEER ONDITIONING ENGINEER Associated attestation - Joann Garcia MD - 07/17/2023 5:05 PM AIRCONDITIONING ENGINEER I have seen and examined the patient on 07/17/23. I agree with the findings and plan of care as documented in the resident's/fellow's note.. Monitor neurological exam closely for further fluctuations. Secondary stroke prevention with maximal medical management. documented in this encounter Consult Notes * Amisha Larsen RD - 07/17/2023 1:11 PM CSTAssociated Order(s): IP CONSULT TO NUTRITION SERVICES NUTRITION ASSESSMENT Nutrition Status: Patient appears adequately nourished at this time. REASON FOR ASSESSMENT: Consult/Referral - Stroke Protocol Encounter Date: 07/17/23 1:11 PM Admission Date: 07/16/2023 LOS: 1 days HPI: Patient is a 88 y.o. 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 Objective Past Medical History: Diagnosis Date Abdominal pain Bruising CAD (coronary artery disease) CAD (coronary artery disease) 03/21/2020 Chronic UTI 03/21/2020 Drusen of optic disc, bilateral Fatigue Frequent urination GERD (gastroesophageal reflux disease) Gout Heart murmur Hiatal hernia schatzki ring HL (hearing loss) Hyperlipidemia Hypertension Hypothyroidism Migraines Peritoneal dialysis status (HCC) From 2009 to 2012 prior to transplant Postoperative delirium 02/2013 hallucinations s/p kidney transplant, saw flashes of color and puffs of smoke Renal failure received 1 episode chemo to try to save Kidney in 2008 [place] 2008 Past Surgical History: Procedure Laterality Date [...] TONSILLECTOMY 194 VEIN LIGATION AND STRIPPING 1992 Social History Tobacco Use Smoking status: Never Smokeless tobacco: Never Substance and Sexual Activity Drug use: No Sexual activity: Defer Alcohol Use: Not At Risk (01/09/2023) AUDIT-C Frequency of Alcohol Consumption: Never Average Number of Drinks: Patient does not drink Frequency of Binge Drinking: Never MEDICATION/LAB REVIEW: Scheduled Meds: acyclovir, 200 mg, oral, BID aspirin, 81 mg, oral, Daily atorvastatin, 40 mg, oral, Daily clopidogreL, 75 mg, oral, Daily enoxaparin, 40 mg, subcutaneous, Daily-2100 furosemide, 20 mg, oral, Daily levothyroxine, 75 mcg, oral, Daily - 0600 predniSONE, 5 mg, oral, Daily tacrolimus, 0.5 mg, oral, Nightly tacrolimus, 1 mg, oral, QAM Continuous Infusions: PRN Meds: acetaminophen Recent Labs Lab Units 07/16/230 07/16/23 1133 SODIUM mmol/L 141 139 POTASSIUM PLASMA mmol/L 4.3 4.7 CHLORIDE mmol/L 108 104 CO2 mmol/L 25 27 BUN SERUM mg/dL 23 28* CREATININE mg/dL 0.84 0.94 [id number] mL/min/1.73 m2 68 59* CALCIUM mg/dL 10.0 9.9 ALBUMIN g/dL -- 4.0 Recent Labs Lab Units 07/16/23 2320 07/16/23 1133 07/16/23 1106 GLUCOSE mg/dL 109 90 -- POC GLUCOSE MONITOR mg/dL -- -- 85 ALT Date Value Ref Range Status 07/16/2023 16 7 - 45 Units/L Final Comment: Code Blue Specimen AST Date Value Ref Range Status 07/16/2023 28 10 - 45 Units/L Final Comment: Code Blue Specimen Alk phos Date Value Ref Range Status 07/16/2023 113 40 - 130 Units/L Final Comment: Code Blue Specimen Lab Results Component Value Date HGBA1C 5.8 (H) 07/16/2023 HDL 60 07/16/2023 LDLCALC 66 07/16/2023 CHOL 146 07/16/2023 TRIG 99 07/16/2023 NURSING ASSESSMENT: Last BM Date: 07/16/23 Bowel Sounds (All Quadrants): Present Rafael Scale Score: 19 Skin Integrity: Scaling (healing scabs lle and mid lower back ; previous shingles outbreak) Vital Signs BP: 156/73 Temp: 36.4 ??C (97.5 ??F) Pulse: 88 Resp: 18 SpO2: 97 % No intake or output data in the 24 hours ending 07/17/23 1311 Adult Malnutrition Scoring Tool (MST) What diet do you follow at home?: regular Have You Recently Lost Weight Without Trying?: No Have you been eating poorly because of a decreased appetite?: No Malnutrition Screening Tool (MST) Score: 0 Anthropometrics Weight: 54.9 kg (121 lb 2 oz) Admission Weight : 54.9 kg Weight Change: -0.25 kg (-0.56 lbs) IBW/kg (Calculated) : 49.9 kg Height: 157.5 cm (5' 2 ) Weight in (lb) to have BMI = 25: 136.4 BMI (Calculated): 22.1 Wt Readings from Last 10 Encounters: 07/16/23 54.9 kg (121 lb 2 oz) 05/21/23 53.4 kg (117 lb 12.8 oz) 01/09/23 53.3 kg (117 lb 9.6 oz) 10/23/22 54.9 kg (121 lb) 05/15/22 57.2 kg (126 lb) 09/19/21 60.3 kg (133 lb) 06/06/21 60.6 kg (133 lb 9.6 oz) 01/01/21 59.9 kg (132 lb) 12/20/20 61.7 kg (136 lb) 09/14/20 56.7 kg (125 lb) ESTIMATED NEEDS: . Dietary Orders (From admission, onward) Start Ordered 07/16/231802 Adult Diet Regular, Restricted; 2 GM Sodium Diet effective now Question Answer Comment ([facility]) Diet type Regular ([facility]) Diet type Restricted Fat / Sodium Restriction: 2 GM Sodium 07/16/231801 Allergies: Reviewed. IMPRESSION: Patient states her appetite has always been minimal at home, she does not eat much (confirmed with patient's ) but she has not lost weight, and her clothes fit the same. Patient has remained on prednisone s/p her kidney transplant but A1c is 5.8. Patient ate about 1/3 of her lunch. Patient denies any difficulty chewing or swallowing. Patient last BM was last night. Patient otherwise eats avariety of foods at home. ASPEN MALNUTRITION ASSESSMENT: Date of completion: 07/17/2023 NUTRITION FOCUSED PHYSICAL EXAM: Completed, no signs of wasting noted.-appropriate for age NUTRITION DIAGNOSIS: Nutrition Diagnosis 1: No nutrition issue at this time INTERVENTION(S): Summary: Assess for nutrition changes Deferred stroke nutrition therapy at this time. Relayed stroke labs of A1c 5.8 and LDL 66. Patient does not meet for malnutrition Monitor for adequate PO intake GOAL(S): Adequate nutrition to meet estimated needs by next assessment MONITORING/EVALUATION: Appetite, PO intake, Discharge plans, I/O, Labs, Plan of care Diet Instructions You should follow a low salt diet meaning adding no salt to food and seeking out low salt food products in the grocery store. You should have plenty of vegetables, fruits, whole grains, and fat-free or low- fat dairy products.These foods contain nutrients that can help keep blood pressure under control. You should eat heart-healthy kinds of fat to reduce the buildup of plaque in your blood vessels. Salt: 1. Do not salt food at the table. Use very little salt, if any, when you cook. (This includes all forms of sodium chloride such as garlic salt, pink Himalayan salt, sea salt, kosher salt etc) 2. Choose carefully when you eat away from home. Restaurant foods can be very high in sodium. 3. Look at the back of labels and choose foods <240mg of sodium for the serving you would eat. 4. Eat plenty of fruits and vegetables that are high in potassium. Good fruit choices include bananas, apricots, oranges, cantaloupe, and apples. High- potassium vegetables include potatoes, sweet potatoes, spinach, zucchini, and tomatoes. Cholesterol 1. Eat very little saturated fat and trans fat. These types of fat can raise the low-density lipoprotein, or LDL (???bad?? ), cholesterol in your blood. Saturated fat is found in foods from animals, such as fatty meats, whole milk, butter, cream, and other dairy foods made with whole milk. It is also in tropical oils (palm, palm kernel, and coconut). It may be in fried foods, crackers, and chips so best to avoid these foods. 2. Choose unsaturated fats (heart-healthy fats), such as soybean, canola, olive, or sunflower oil. Liquid or soft tub margarines are also fine. ONDITIONING ENGINEER * Johnathon Orlando RN - 07/17/2023 10:10 AM CSTAssociated Order(s): COMBATANT DIVER OFFICER CONSULT Smart Note for Stroke Patient presents from: home Arriving by: private transportation To: ED Patient is an inpatient in division [id number] with a clinical stroke diagnosis of left ischemic Patient was last known well at July 16, 2023 when he/she was noted with symptoms starting on July 16, 2023 of: falls and speech disturbances IV TPA given: No Location: [place] intervention: No Patient stated goals: to be able to go home Recommendations: SMART to evaluate and develop appropriate rehabilitation plan SMART Education Stroke warning signs , Patient instructed regarding how to activate EMS/911 and voice understanding: Yes, Discussed need to follow up after discharge for , Taught about prescribed medications: , Discussed risk factors: , and Secondary stroke prevention instructions including: Discussed risk factors: hypertension inactivity/obesity age greater than 55 CAD Secondary stroke prevention instruction includes:Medication compliance Appropriate diet (diabetic, heart, renal etc.) Blood pressure monitoring Maintain regular physician appointments Stroke education provided to: patient DVT prophylaxis includes:heparinoid To contact the SMART nurse call [phone] Business cards left with education packet for additional questions Database consent information: asked, declined ONDITIONING ENGINEER * Kasie Guevara MD - 07/17/2023 9:06 AM CSTAssociated Order(s): IP CONSULT TO RENAL TRANSPLANT NEPHROLOGY INITIAL CONSULTATION NOTE REASON FOR CONSULT: No data found REQUESTING PROVIDER: Vik Shaver MD CHIEF COMPLAINT: HPI: Patient is 88 y.o. 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 Renal consultation is requested for the management of immunosuppression. Patient denies any shortness of breath, chest pain, nausea or vomiting. Past Medical History: Diagnosis Date Abdominal pain Bruising CAD (coronary artery disease) CAD (coronary artery disease) 03/21/2020 Chronic UTI 03/21/2020 Drusen of optic disc, bilateral Fatigue Frequent urination GERD (gastroesophageal reflux disease) Gout Heart murmur Hiatal hernia schatzki ring HL (hearing loss) Hyperlipidemia Hypertension Hypothyroidism Migraines Peritoneal dialysis status (HCC) From 2009 to 2012 prior to transplant Postoperative delirium 02/2013 hallucinations s/p kidney transplant, saw flashes of color and puffs of smoke Renal failure received 1 episode chemo to try to save Kidney in 2008 Shingles 2008 Past Surgical History: Procedure Laterality Date [...] TONSILLECTOMY 1943 VEIN LIGATION AND STRIPPING 1992 Medications Prior to Admission Medication Sig Dispense Refill Last Dose acyclovir (ZOVIRAX) 200 mg capsule Take 1 capsule (200 mg total) by mouth 2 (two) times a day 60 capsule 11 07/15/2023 cholecalciferol (VITAMIN D-3) 2000 unit tablet Take 1 tablet (2,000 Units total) by mouth daily 30 tablet 11 07/15/2023 cyanocobalamin (Vitamin B-12) 100 mcg tablet Take 1 tablet (100 mcg total) by mouth daily 07/15/2023 furosemide (LASIX) 20 mg tablet Take 1 tablet (20 mg total) by mouth daily 07/15/2023 levothyroxine (SYNTHROID) 100 mcg tablet Take 1 tablet (100 mcg total) by mouth cork floor installer before breakfast (Patient taking differently: Take 75 mcg by mouth cork floor installer before breakfast) 30 tablet 11 07/15/2023 lisinopriL (PRINIVIL,ZESTRIL) 10 mg tablet TAKE 1 TABLET(10 MG) BY MOUTH DAILY 90 tablet 3 07/15/2023 metoprolol tartrate (LOPRESSOR) 75 mg tablet immediate release tablet TAKE 1 TABLET(75 MG) BY MOUTHTWICE DAILY 180 tablet 3 07/15/2023 predniSONE (DELTASONE) 5 mg tablet TAKE 1 TABLET(5 MG) BY MOUTH DAILY 30 tablet 11 07/15/2023 sodium bicarbonate 650 mg tablet Take 1 tablet (650 mg total) by mouth daily 30 tablet 11 07/15/2023 tacrolimus 0.5 mg immediate-release capsule Take 1 capsule (0.5 mg total) by mouth nightly 30 capsule 11 07/15/2023 tacrolimus 1 mg immediate-release capsule Take 1 capsule (1 mg total) by mouth every morning 30 capsule 11 07/15/2023 acyclovir, 200 mg, oral, BID aspirin, 81 mg, oral, Daily atorvastatin, 40 mg, oral, Daily clopidogreL, 75 mg, oral, Daily enoxaparin, 40 mg, subcutaneous, Daily-2100 furosemide, 20 mg, oral, Daily levothyroxine, 75 mcg, oral, Daily - 0600 lisinopriL, 10 mg, oral, Daily predniSONE, 5 mg, oral, Daily tacrolimus, 0.5 mg, oral, Nightly tacrolimus, 1 mg, oral, QAM Allergies Allergen Reactions Cephalexin Other (See comments), Rash and Unknown Trouble with bladder Trouble with bladder Tape [Adhesive] Rash Tetracyclines Rash Nitrofurantoin Rash and Unknown Tetracycline Rash Levofloxacin Unknown Codeine Dizziness, Nausea & Vomiting, Nausea Only and Unknown Social History Socioeconomic History Marital status: Spouse name: Not on file Number of children: Not on file Years of education: Not on file Highest education level: Not on file Occupational History Not on file Tobacco Use Smoking status: Never Smokeless tobacco: Never Substance and Sexual Activity Alcohol use: No Drug use: No Sexual activity: Defer Other Topics Concern Not on file Social History Narrative Not on file Social Determinants of Health Financial Resource Strain: Not on file Food Insecurity: Not on file Transportation Needs: Not on file Physical Activity: Not on file Stress: Not on file Social Connections: Not on file Intimate Partner Violence: Not on file Housing Stability: Not on file Family History Problem Relation Age of Onset Cancer Other Family history of Cancer; Kidney disease Other Family history of Renal disease; Stroke Other Family history of Stroke; Pancreatic cancer Mother Heart disease Father REVIEW OF SYSTEMS: As per HPI. All other systems are negative. PHYSICAL EXAM: Vitals: 24hr Min/Max: Temp Min: 36.3 ??C (97.3 ??F) Max: 36.9 ??C (98.4 ??F) Pulse Min: 71 Max: 88 BP Min: 150/67 Max: 184/80 Resp Min: 16 Max: 20 SpO2 Min: 94 % Max: 100 % Most Recent: BP 156/73 (BP Location: Right arm, Patient Position: Sitting) Pulse 88 Temp 36.4 ??C (97.5 ??F)(Oral) Resp 18 Ht 157.5 cm (5' 2 ) Wt 54.9 kg (121 lb 2 oz) SpO2 97% BMI 22.15 kg/m?? No intake/output data recorded. No intake/output data recorded. General Awake, alert sitting in chair HEENT: moist oral mucosa CV: heart sounds RRR, no murmurs PULM: clear to auscultation, no rales. Abdomen: Soft, non-tender, BS present. MSK: no edema, symmetric LE SKIN: no rashes Neuro: AOx3, right facial droop possible Psych: appropriate affect Labs, vitas and imaging are reviewed Recent Labs Lab Units 07/16/23231907/16/23 1133 SODIUM mmol/L 141 139 POTASSIUM PLASMA mmol/L 4.3 4.7 CHLORIDE mmol/L 108 104 CO2 mmol/L 25 27 BUN SERUM mg/dL 23 28* CREATININE mg/dL 0.84 0.94 [id number] mL/min/1.73 m2 68 59* GLUCOSE mg/dL 109 90 CALCIUM mg/dL 10.0 9.9 ALBUMIN g/dL -- 4.0 Recent Labs Lab Units 07/16/23 23207/16/23 1133 WBC K/cumm 5.8 6.3 HEMOGLOBIN g/dL 12.6 13.0 HEMATOCRIT % 38.2 39.6 PLATELETS K/cumm 150 142* No results found for this or any previous visit. No results found for this or any previous visit. No results found for this or any previous visit. 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 Creatinine has been 0.84 stable with baseline around 0.9-1.0. We will continue to monitor. High risk immunosuppression medication for organ transplantation, requiring regular intensive follow-up and monitoring. Home regimen includes tacrolimus 1mg AM and 0.5mg PM (recently lowered in last couple months per patient and confirmed as was 1mg BID 05/2023), and prednisone 5mg. MPA on-hold d/t infections and skin cancer Trough level target of 3 to 5. Continue home regimen Attain a daily tacrolimus trough level around 5am ideally. Will adjust accordingly. H/o Shingles and Prophylaxis against opportunistic infections post-transplant - On 05/2023 Transplant Neph clinic note stated Depending on renal function on tomorrow's labs will contemplate another round of acyclovir 800 mg five times a day for 10 days (instead of 7 days) given that she still has some residual evidence of shingles and then subsequently continue acyclovir 200 mg BID preventatively pending shingrix vaccination - Previously referred to [facility] for recurrent UTIs, currently awaiting appt Hypertension Will defer to Neurology goals in first few days due to stroke eval BP 156/73 this AM History of Basal Cell Ca: - Continue follow up with dermatology per documentation - Given her overall stability on current immunosuppressive regimen and lack of recurrent cancer, wepreviously deferred transitioning to mTORi based therapy at this time 07/17/23 Kasie Rivers MD Nephrology Fellow, PGY-5 Transplant Nephrology Service Contact (phone): [phone] from 7am- 5pm Mon-Fri After hours and weekends: please page [phone] Cosigned by Nixon Hawkins MD at 07/17/2023 5:14 PM AIRCONDITIONING ENGINEER ONDITIONING ENGINEER ONDITIONING ENGINEER Associated attestation - Nixon Hawkins MD - 07/17/2023 5:14 PM AIRCONDITIONING ENGINEER I have seen and examined the patient on 07/17/2023. I agree with the findings and plan of care as documented in the resident's/fellow's note. Kidney function is stable. Kidney transplant recipient on 02/10/2013 (Kidney) on high risk immunosuppression medication for organ transplantation, requiring regular intensive follow-up and monitoring for toxicity including tacrolimus. Denies tremor We discussed the case with [facility] transplant pharmacist about the dosing and level of immunosuppression medications. We will continue prednisone 5 mg PO daily and holding MPA Continue tacrolimus 1mg AM and 0.5mg PM pending level. Goal tac level ( 3-5) ng/mL Tacrolimus levels significantly below the patient's target goal may increase the risk of rejection and may impose a risk of losing the kidney transplant graft. Supplemental Attestation: Today, I am treating the patient for immunosuppression management which is/are in severe exacerbation, progression, or experiencing treatment side effects as evidenced by recent concern for CVA, as described in the note. Nixon Hawkins MD * Caren Verduzco MD - 07/16/2023 11:27 AM CST Hyperacute Stroke Team - [facility] Consult Note Initial information: Narrative: Ms. Dunlap is a 88 y.o. female who presents as an acute stroke page. 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 Per , pt was in usual state of health until Thursday, when she had several falls and was not quite steady on her feet. In the interim, she returned to her baseline. Today on 07/16 at approx 0830, he noted that she had an episode of garbled speech to which pt had no insight. They called her doctor who recommended presentation to emergency department. En route to ED, pt had another episode of garbled speech that self-resolved. On arrival to ED, pt VSS in NAD. She was able to walk from wheelchair to scanner and lay down. NIHSS 1 for facial droop, at baseline. Given recurrent new symptoms, decision made to pursue CTA/CTP. Ptotherwise asymptomatic. Stroke risk factors: CAD, Hypertension, and transplant, vasculitis Notable home meds (i.e., anticoagulation): na (previously on apixaban, stopped in May per transplant team) Past medical history, past surgical history, current medications, allergies, family history and social history were reviewed, and are noted at the end of this note. Vitals: 07/16/23 1105 BP: 164/82 Desouza labs (FSBG, INR, platelets, Xa): Lab Results Lab Value Date/Time GLUCOSE 85 07/16/2023 1106 GLUCOSE 103 01/23/2023 1330 INR 1.1 01/01/2021 0937 HCT findings: 1. Acute left proximal M2 occlusion with subtle 14 cc perfusion defect (Tmax >4 seconds) within the left MCA territory in the frontal lobe measuring 14 mL. 2. No evidence of acute stroke or intracranial hemorrhage on noncontrast head CT. Periventricular white matter disease likely represent sequela of chronic small vessel disease. Thrombolytic (alteplase/tenecteplase) decision: Thrombolytic decision: NO GO. Rationale: Other low NIHSS, symptoms not clearly disabling Thrombolytic decision time (24 hour format): 1210 Thrombolytic bolus time (24 hour format): N/A, thrombolytics not given BP prior to thrombolytic bolus: N/A, thrombolytics not given Reason for thrombolytic delay (>30 mins [id number], if applicable): N/A, patient did not receive thrombolytics Thrombectomy decision: LVO on CTA?: Yes, Location: MCA, M2 segment CTA read time/fellow: time: 1114, fellow: Dr. Elinor Alford CTP: Core volume: 0 mL Penumbra volume: 0 mL Mismatch ratio: na Baseline functional status: MRS 1: The patient has symptoms but no significant disability; able to carry out all activities. Intervention: NO-GO: Rationale: NIHSS <6 Neuro-IR contact time: N/A, Patient NO-GO for intervention Reason for thrombectomy attempt delay (>90 minutes [id number], if applicable): N/A: Patient did not receive thrombectomy or no significant delays Hyperacute MRI: Hyperacute MRI Indication: Not performed Findings: N/A, not performed Wake-up stroke: Time of symptom discovery (24h format): N/A, patient not a candidate for WAKE-UP protocol DWI-FLAIR mismatch: N/A, patient not a candidate for protocol MRI read time/fellow: N/A, patient was not a candidate for protocol Physical Examination: BP 164/82 GEN: NAD HEENT: NC/AT, MMM CV: Regular rate and rhythm PULM: No increased work of breathing ABD: Soft, nontender, nondistended EXT: Warm and well-perfused SKIN: Warm and dry Neurologic Examination: Mental status: Awake, Alert, Oriented x 3 (person, place and time) Speech: Normal fluency, repetition, and comprehension. Cranial Nerves: CN II-XII intact and slight R NLFF, at baseline Motor: Normal bulk and tone of the four extremities. 5/5 strength in the bilateral upper and lower extremities, no pronator drift Reflexes: deferred Sensory: Normal sensation to light touch in the four extremities Coordination Gait: Finger to nose intact bilaterally without ataxia, Heel to pacheco intact bilaterally without ataxia, Normal gait and station Inattention: No extinction/inattention to double simultaneous tactile stimulation Other: pt asymptomatic on evaluation, not clearly positional Assessment & Plan: Ms. Dunlap is a 88 y.o. year old female w PMHx of renal transplant / p- ANCA vasculitis, HTN, CAD, previous DVT on apixaban discontinued 05/28 presenting with two distinct episodes of speech disturbances that self-resolved in the setting of recent gait instability found to have L M2 occlusion.NO GO for acute intervention due to lack of persistent deficits and low NIHSS. Given concern for possible progression of symptoms and interim resolution of symptoms, will recommend admission to Stroke service for further monitoring and evaluation for stroke etiology. Disposition: Stroke Neurology under Dr. Joann Garcia Case discussed with [facility] attending: Todd Flores MD The [facility] team will sign off due to patient admission to the stroke/NNICU service. For acute neurologic change and repeat stroke assessment, please activate the acute stroke pager at [phone]. For a non-emergent questions please call the inpatient stroke phone at [phone]. Caren Verduzco MD 07/16/2023, 11:28 AM Subjective Past Medical History: Past Medical History: Diagnosis Date Abdominal pain Bruising CAD (coronary artery disease) CAD (coronary artery disease) 03/21/2020 Drusen of optic disc, bilateral Fatigue Frequent urination GERD (gastroesophageal reflux disease) Gout Heart murmur Hiatal hernia schatzki ring HL (hearing loss) Hyperlipidemia Hypertension Hypothyroidism Migraines Peritoneal dialysis status (HCC) From 2009 to 2012 prior to transplant Postoperative delirium 02/2013 hallucinations s/p kidney transplant, saw flashes of color and puffs of smoke Renal failure received 1 episode chemo to try to save Kidney in 2008 Shingles 2008 Past Surgical History: Past Surgical History: Procedure Laterality Date AV FISTULA PLACEMENT Left with declotting CARDIAC CATHETERIZATION 10/2008 CATARACT EXTRACTION Left 05/05/2018 CATARACT EXTRACTION W/ INTRAOCULAR LENS IMPLANT Right CENTRAL LINE PLACEMENT > 5 YEARS N/A 02/16/2013 CYSTOSCOPY 08/2013 with placement of TVT-O midurethral ring HERNIA REPAIR 09/2008 with Schatzki's ring KIDNEY TRANSPLANT 02/2013 PARATHYROIDECTOMY 1994 RHINOPLASTY STRABISMUS SURGERY TONSILLECTOMY 1943 VEIN LIGATION AND STRIPPING 1992 Medications: No current facility-administered medications on file prior to encounter. Current Outpatient Medications on File Prior to Encounter Medication Sig Dispense Refill acyclovir (ZOVIRAX) 200 mg capsule Take 1 capsule (200 mg total) by mouth 2 (two) times a day 60 capsule 11 biotin 2,500 mcg capsule Take 1 capsule by mouth daily cholecalciferol (VITAMIN D-3) 2000 unit tablet Take 1 tablet (2,000 Units total) by mouth daily 30 tablet 11 cyanocobalamin (Vitamin B-12) 100 mcg tablet Take 1 tablet (100 mcg total) by mouth daily Eliquis 5 mg tablet Take 1 tablet (5 mg total) by mouth 2 (two) times a day levothyroxine (SYNTHROID) 100 mcg tablet Take 1 tablet (100 mcg total) by mouth cork floor installer before breakfast 30 tablet 11 lisinopriL (PRINIVIL,ZESTRIL) 10 mg tablet TAKE 1 TABLET(10 MG) BY MOUTH DAILY 90 tablet 3 metoprolol tartrate (LOPRESSOR) 75 mg tablet immediate release tablet TAKE 1 TABLET(75 MG) BY MOUTHTWICE DAILY 180 tablet 3 pravastatin (PRAVACHOL) 20 mg tablet Take 1 tablet (20 mg total) by mouth nightly predniSONE (DELTASONE) 5 mg tablet TAKE 1 [...] by mouth every morning 30 capsule 11 trimethoprim (TRIMPEX) 100 mg tablet Take 0.5 tablets (50 mg total) by mouth nightly Allergies: Allergies Allergen Reactions Cephalexin Other (See comments), Rash and Unknown Trouble with bladder Trouble with bladder Tape [Adhesive] Rash Tetracyclines Rash Nitrofurantoin Rash and Unknown Tetracycline Rash Levofloxacin Unknown Codeine Dizziness, Nausea & Vomiting, Nausea Only and Unknown Family History: Family History Problem Relation Age of Onset Cancer Other Family history of Cancer; Kidney disease Other Family history of Renal disease; Stroke Other Family history of Stroke; Pancreatic cancer Mother Heart disease Father Social History: Social History Tobacco Use Smoking status: Never Smokeless tobacco: Never Substance and Sexual Activity Drug use: No Sexual activity: Defer Alcohol Use: Not At Risk (01/09/2023) AUDIT-C Frequency of Alcohol Consumption: Never Average Number of Drinks: Patient does not drink Frequency of Binge Drinking: Never Review of Systems: A complete review of systems was performed including symptoms pertaining to the following systems: constitutional, cardiovascular, respiratory, gastrointestinal, genitourinary, musculoskeletal, neurological, psychiatric, endocrine, immunologic, integumentary, hematological, eyes, and ears, nose, ollie th, and throat. All systems were negative except as noted in the History of Presenting Illness (HPI). Cosigned by Todd Flores MD at 07/16/2023 2:46 PM AIRCONDITIONING ENGINEER ONDITIONING ENGINEER ONDITIONING ENGINEER Associated attestation - Flores, Todd Nathan MD - 07/16/2023 2:46 PM AIRCONDITIONING ENGINEER I have seen and examined the patient on 07/16/23. I agree with the findings and plan of care as documented in the resident's/fellow's note. Patient with several falls 4 days ago, unclear etiology (query in hindsight subtle right leg weakness in setting of left M2 occlusion?) now with transient speech deficits this morning before returning to speech baseline. NIHSS 1 for chronic left facial droop, no deficits in speech noted. CT head with no acute hemorrhage; CTA obtained given fluctuations shows possible left M2 occlusion (patient appears to have 3-4 M2 branches that are tortuous, there is also subtle hypoperfusion of the superior left MCA territory, not meeting criteria for Tmax >6 seconds. Query whether she had an occlusion 4 days ago that has had stuttering symptoms. In any event no disabling deficits to warrant lytics. Pa tient will benefit from admission to the stroke service for further workup. Recommend permissive hypertension. Recommend aspirin 81 and plavix 300 mg loading dose x 1 given low NIHSS (though questionable LKN possibly more than 72 hours) in absence of ipsilateral carotid stenosis. documented in this encounter Nursing Notes * Joann Guzman RN - 07/18/2023 4:32 PM CST PT discharged home with . Discharge paperwork covered with patient. PT left with coat, jeans, socks, shoes, sweatshirt, cell phone, cell phone workday director, lip stick, and person comb. ONDITIONING ENGINEER * Sixto Veras RN - 07/16/2023 6:[address] Chavez son in law [phone] ONDITIONING ENGINEER documented in this encounter ED Notes * Sangeetha Ward NP - 07/16/2023 12:33 PM CST HPI Chief Complaint Patient presents with Dizziness Fall 88 yr f with PMH of CAD, htn, kidney transplant in 2012 secondary to p-ANCA vasculitis, RLE DVT in 11/2022 presents to the ED after having balance issues yesterday and word finding issues today. Pt states that yesterday she was ambulating and felt like she couldn't control her body to go in the direction she wanted to go but that resolved. This AM, she noticed at 0800 word finding issues that resolved and then her spouse noted slurred speech on the way to the ED that resolved prior to arrival in the ED. Currently, denies any weakness, numbness or tingling, pain, shortness of breath. Pt was noted to have a DVT to the RLE during an admission 11/2022 for Covid. States that she was on Eliquis for a couple months and then was transitioned to an 81 mg ASA. History provided by: Patient, spouse and relative Patient History: Patient Active Problem List Diagnosis Date Noted Cerebrovascular accident (CVA), unspecified mechanism ([facility]) 07/16/2023 Preseptal cellulitis of left upper eyelid 11/03/2022 Drusen of both optic discs 09/14/2020 Hordeolum internum of left lower eyelid 07/04/2020 Traumatic closed fracture of C2 vertebra with minimal displacement ([facility]) 03/21/2020 Injury to ligament of cervical spine 03/21/2020 Acute pain due to trauma 03/21/2020 HTN (hypertension) 03/21/2020 CAD (coronary artery disease) 03/21/2020 Hypothyroidism 03/21/2020 Chronic UTI 03/21/2020 Pseudophakia of both eyes 04/11/2019 Vasculitis ([facility]) ([facility]) 11/19/2013 History of kidney transplant 05/17/2013 Past Medical History: Diagnosis Date Abdominal pain Bruising CAD (coronary artery disease) CAD (coronary artery disease) 03/21/2020 Chronic UTI 03/21/2020 Drusen of optic disc, bilateral Fatigue Frequent urination GERD (gastroesophageal reflux disease) Gout Heart murmur Hiatal hernia schatzki ring HL (hearing loss) Hyperlipidemia Hypertension Hypothyroidism Migraines Peritoneal dialysis status ([facility]) From 2009 to 2012 prior to transplant Postoperative delirium 02/2013 hallucinations s/p kidney transplant, saw flashes of color and puffs of smoke Renal failure received 1 episode chemo to try to save Kidney in 2008 Shingles 2008 Past Surgical History: Procedure Laterality Date [...] Smokeless tobacco: Never Substance and Sexual Activity Alcohol use: No Drug use: No Sexual activity: Defer Social History Social History Narrative Not on file Review of Systems Review of Systems Constitutional: Negative for chills and fever. Respiratory: Negative for cough and shortness of breath. Cardiovascular: Negative for chest pain and leg swelling. Gastrointestinal: Negative for abdominal pain, constipation, diarrhea, nausea and vomiting. Endocrine: Negative. Genitourinary: Negative for dysuria and urgency. Allergic/Immunologic: Negative. Neurological: Positive for speech difficulty. Negative for headaches. All other systems reviewed and are negative. Physical Exam ED Triage Vitals Temp Pulse Resp BP SpO2 07/16/23 1129 07/16/23 1129 07/16/23 1129 07/16/23 1105 07/16/23 1129 36.9 ??C (98.4 ??F) 77 18 164/82 95 % Temp src Heart Rate Source Patient Position BP Location FiO2 (%) 07/16/23 1721 07/16/23 1721 07/16/23 1717 07/16/23 1721 -- Oral Monitor Lying Right arm Height Height Method Weight Weight Method 07/16/23 1135 07/16/23 1135 07/16/23 1135 07/16/23 1135 1.575 m (5' 2 ) Stated 55.2 kg (121 lb 11.1 oz) Stated Physical Exam Vitals and nursing note reviewed. Constitutional: Appearance: Normal appearance. HENT: Head: Normocephalic and atraumatic. Mouth/Throat: Mouth: Mucous membranes are moist. Pharynx: Oropharynx is clear. Eyes: Extraocular Movements: Extraocular movements intact. Cardiovascular: Rate and Rhythm: Normal rate and regular rhythm. Pulses: Normal pulses. Heart sounds: Normal heart sounds. Pulmonary: Effort: Pulmonary effort is normal. Breath sounds: Normal breath sounds. Abdominal: Palpations: Abdomen is soft. Tenderness: There is no abdominal tenderness. There is no right CVA tenderness, left CVA tendernessor guarding. Musculoskeletal: General: Normal range of motion. Cervical back: Normal range of motion and neck supple. Right lower leg: No edema. Left lower leg: No edema. Skin: General: Skin is warm and dry. Capillary Refill: Capillary refill takes less than 2 seconds. Neurological: General: No focal deficit present. Mental Status: She is alert and oriented to person, place, and time. Mental status is at baseline. GCS: GCS eye subscore is 4. GCS verbal subscore is 5. GCS motor subscore is 6. Cranial Nerves: Cranial nerves 2-12 are intact. Sensory: Sensation is intact. Motor: Motor function is intact. No weakness. Coordination: Eqtkju-Ngrw-Szxtuj Test and Heel to Pacheco Test normal. Comments: Flattened nasolabial fold which is her baseline. Able to transfer from chair to stretcherwithout difficulty. Psychiatric: Mood and Affect: Mood normal. Behavior: Behavior normal. 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 Pt states that yesterday she was ambulating and felt like she couldn't control her body to go in the direction she wanted to go but that resolved. This AM, she noticed at 0800 word finding issues that resolved and then her spouse noted slurred speech on the way to the ED that resolved priorto arrival in the ED. Currently, denies any weakness, numbness or tingling, pain, shortness of breath. Pt was noted to have a DVT to the RLE during an admission 11/2022 for Covid. States that she was on Eliquis for a couple months and then was transitioned to an 81 mg ASA. On exam, pt is afebrile,a/o x 4. Lungs CTA. Respirations unlabored. Heart sounds normal. Good radial pulses. Abd soft, round, nontender. Cranial nerves 2-12 intact. Yadira sensation intact. Normal heel to pacheco. Normal finger to nose. Noted flattening to nasolabial fold which is her baseline. Plan: stroke pager activated from triage. Pt received labs, CTA, and rapid neurology evaluation. Concern for distal M2 occlusion. Plan for admission to neurology service. Pt and family in agreement with plan. Plan: Amount and/or Complexity of Data Reviewed Labs: Decision-making details documented in ED Course. Radiology: Decision-making details documented in ED Course. ECG/medicine tests: independent interpretation performed. Risk Decision regarding hospitalization. ED Course as of 07/16/23 1924 Time: 07/16 1110 Comment: LUIS 0800. NIHSS 1 for nasolabial fold flattening (which is baseline). Was having difficulty walking and was slurring speech this AM. Was falling on Thursday but resolved. Reports she otherwisehas felt like her normal self. Slurred speech resolved. No gait abnormality noted here. Per review of dedicated regional driver's license, nasolabial fold flattening is chronic. Neurology and I agree pt would not benefit from TNK and thrombectomy at this time as exam appears consistent with baseline. By: Les Winston MD Time: 07/16 1113 Comment: After review of CT head, neurology attending requesting CTA/CTP in light of concern for potential left MCA territory ischemic changes. By: Les Winston MD Time: 07/16 1211 Comment: Spoke with neurology. They see a distal left M2 occlusion. They will admit to their service. They do not feel thrombectomy or TNK are indicated at this time since pt is not symptomatic. By: Les Winston MD Time: 07/16 1505 Value: Trop I hs: 10 Comment: Insignificant By: Sangeetha Ward NP Final diagnoses: Cerebrovascular accident (CVA), unspecified mechanism (HCC) Sangeetha Ward NP 07/16/231923 ONDITIONING ENGINEER * Mihaela Conroy RN - 07/16/2023 10:51 AM CST Pt to ED from home with c/o increased falls and intermittent aphasia this morning starting around 0830. Pt states she could think of the word she was trying to say, but could not get it out. Pt's endorses she had slurred speech en route. Pt also endorsing that her gait is not normal but that has been that way since Thursday. PmHx: HTN, CAD, renal failure On arrival pt is A&Ox4, denies any CP/SOB/N/V/D. ONDITIONING ENGINEER documented in this encounter Miscellaneous Notes * Plan of Care - Ceci Ralph MD - 07/18/2023 3:52 PM AIRCONDITIONING ENGINEER Transplant nephrology note: Hemodynamically stable UOP 475 mL charted Cr 0.8 [place] trough 6.5 Plan: Decrease Tacrolimus to 0.5 mg BID Obtain Tacrolimus trough level tomorrow AM Discussed with the attending Dr. Hawkins. Ceci Ralph MD Transplant fellow PGY6 Cosigned by Nixon Hawkins MD at 07/18/2023 4:46 PM AIRCONDITIONING ENGINEER ONDITIONING ENGINEER ONDITIONING ENGINEER ONDITIONING ENGINEER * ECIN Note - Severino Teran RN - 07/18/2023 12:09 PM CST Patient Information: Referral Order Details (96h ago through 96h from now) Ordered Start 07/18/23 1144 Ambulatory referral to Home Health Electronically Signed By: Rashard Wilkes MD Question Answer Comment Service Line Home Health Primary disciplines requested: Physical Therapy Secondary disciplines requested: Occupational Therapy Home Health Services Therapy to Eval/Tx Therapy instructions: ADL/ ladl management Therapy instructions: Evaluation/treatment Therapy instructions: Home safety evaluation Requested Start of Care Date: 24-48 hours Physician to follow patient's care (the person listed here will be responsible for signing ongoing orders): PCP I attest that I or another qualified licensed provider saw the patient 90 days prior to or 30 days post admission and this face to face encounter meets the necessary Home Health requirements. The face to face encounter occurred on (date): 07/18/2023 The encounter with the patient was in whole, or in part, for the following medical condition, whichis the primary reason for home health care. (List medical condition): Stroke I certify that, based on my findings, the following services are medically necessary skilled home health services: Therapy to Eval/Tx Clinical findings that support the need for home care: Medical condition requiring skilled assessment/education Clinical findings that support the need for home care: Frequent falls requiring safety eval/therapy I certify that my clinical findings support patient's homebound status. Homebound criteria met because: Poor endurance I certify that my clinical findings support patient's homebound status. Homebound criteria met because: Abnormal gait/unsteady balance resulting in fall risk 07/18/23 0000 ONDITIONING ENGINEER * Plan of Care - Joann Guzman RN - 07/18/2023 10:44 AM CST Goals: Clinical Goals for the Shift: monitor vital signs and neuro exam, get out of bed to chair, promote comfort and saftey, remain free from falls, pain management Summary: Problem: Lack of Knowledge: Goal: Ability to state ways to decrease the risk of falls will improve Outcome: Progressing Problem: Safety: Goal: Will remain free from falls Outcome: Progressing Goal: Will remain free from injury from falls Outcome: Progressing Problem: Health Behavior: Goal: Understanding of discharge needs will improve Outcome: Progressing Problem: Lack of Knowledge: Goal: Ability to develop a pain control plan will improve Outcome: Progressing Goal: Ability to identify pain intensity on a pain scale and rate it consistently will improve Outcome: Progressing Problem: Medication: Goal: Satisfaction with pain management regimen will improve Outcome: Progressing Problem: Activity: Goal: Mobility will improve Outcome: Progressing Problem: Lack of Knowledge: Goal: Verbalization of understanding the information provided will improve Outcome: Progressing Problem: Nutritional: Goal: Dietary intake will improve Outcome: Progressing Problem: Self-Care: Goal: Ability to participate in self-care as condition permits will improve Outcome: Progressing Problem: Skin Integrity: Goal: Risk for impaired skin integrity will decrease Outcome: Progressing Problem: Physical Regulation: Goal: Ability to maintain continence will improve Outcome: Ongoing ONDITIONING ENGINEER * Plan of Care - Pranav Guerra RN - 07/17/2023 11:10 PM CST Problem: Lack of Knowledge: Goal: Ability to state ways to decrease the risk of falls will improve Outcome: Progressing Problem: Safety: Goal: Will remain free from falls Outcome: Progressing Goal: Will remain free from injury from falls Outcome: Progressing Goal: Will remain free from falls and injury in home environment Outcome: Progressing Problem: Health Behavior: Goal: Understanding of discharge needs will improve Outcome: Progressing Goals: Clinical Goals for the Shift: VSS, Q4 NC, comfort and safety ONDITIONING ENGINEER * Plan of Care - Umesh Berry RN - 07/17/2023 2:44 PM CST PT/OT rec HH. Patient is agreeable. Stated she used [facility] in past and would like to use again. Referral placed. ADD 07/18 ONDITIONING ENGINEER * ECIN Note - Umesh Berry RN - 07/17/2023 2:40 PM CST Images from the original note were not included. Patient Information: OT Eval and Treat Last 72 Hours OT Evaluation Row Name 07/17/23 1123 Chart Reviewed Yes -KG Session Type Evaluation initial discharge -KG OT Received On 07/17/23 -KG Safe Environment Arm band checked;Patient found in supine -KG Subjective Agreeable to Therapy -KG Family/Caregiver Present Yes -KG Occupational Therapy-Patient Goal pt indicate hopes her R hand returns to usual function -KG Precautions Fall risk -KG Type of Home House -KG Home Layout Bed/bath upstairs -KG Bathroom Shower/Tub Tub/shower unit -KG Level of [place] Independent functional transfers;Needs assistance with ADLs;Needs assistance with homemaking -KG Lives With Spouse -KG Receives Help From Spouse/Significant other -KG Driving Yes -KG Vocational/Occupation Retired -KG Fall within the last 6 months Yes -KG Fall within the last 6 months comment 2 falls in the past week -KG Prior Function Comments Pt. reports assists her in/out of shower for safety. Pt. reports that she does some cooking and homemaking; sets up her medication in a reminder box. -KG Grooming: Where assessed Standing at sink -KG Grooming: Level of assistance Distant Supervision -KG LE Dressing: Where assessed Edge of bed -KG LE Dressing: Level of assistance Independent -KG Toileting: Where assessed Toilet -KG Toileting: Level of assistance Modified Independent -KG Room Mobility: Level of Assistance Standby Assist -KG Toilet Transfer From Bed -KG Toilet Transfer Type To and from -KG Toilet Transfer to Standard toilet -KG Toilet Transfers Supervision -KG Pain Assessment No/denies pain -KG Current Vision Other (Comment) wears reading glasses which are not here -KG Arousal/Alertness Alert;Appropriate responses to stimuli -KG Attention Span Appears intact -KG Memory Appears intact -KG Orientation Oriented X4 (person, place, time, situation) -KG Following Commands Follows all commands and directions without difficulty -KG Compliance/Behavior Easy to engage -KG Light Touch WFL BUE -KG Numbness/Tingling Yes reports some tingling in L hand -KG Fine Motor -- Pt able to write name with fair legibility but very small. Some difficulty targeting with pen with right hand; some difficulty manipulating items in right hand -KG Serial Opposition -- good left, fair right -KG Hand Preference Right -KG Bed Mobility From 1 Supine -KG Bed Mobility Type 1 To and from -KG Bed Mobility to 1 Edge of bed -KG Level of Assistance 1 Independent -KG Transfer From 1 Sit -KG Transfer Type 1 To and from -KG Transfer to 1 Stand -KG Transfer Level of Assistance 1 Distant supervision -KG RUE Assessment X AROM WFL; incoordination as noted above -KG LUE Assessment WFL -KG Putting on and taking off regular lower body clothing 4 -KG Bathing 3 -KG Toileting 4 -KG Putting on and taking off upper body clothing 4 -KG Personal Grooming 4 -KG Eating Meals 4 -KG Total Score (range 6-24) 23 -KG Score Interpretation 51.12 -KG Safe Environment End of Therapy Session Patient left supine in bed;Call light within reach;Overbed table within reach -KG Plan If this is the last note, consider this the discharge summary -KG OT Recommendation Home with family;Home with intermittent assist;Home Health OT -KG OT Frequency during current admission One-time visit (Discharge from this service) 0 -KG OT - OK to Discharge Yes -KG OT Evaluation Complete Yes -KG User Desouza (r) = Recorded By, (t) = Taken By, (c) = Cosigned By Initials Name Effective Dates KG Darby Pride, OT 03/28/19 - OT Treatment No documentation. OT Notes 07/17/2023 12:56 PM Progress Notes signed by Darby Pride, OT , PT Eval and Treat Last 72 Hours PT Evaluation Row Name 07/17/23 0844 Chart Reviewed Yes -AR Session Type Evaluation Initial discharge -AR Safe Environment Arm band checked;Patient found sitting at edge of bed;Gait belt utilized for all out of bed mobility -AR Subjective Agreeable to Therapy -AR Family/Caregiver Present No -AR Physical Therapy-Patient Goal Move around and get stronger. -AR Precautions Fall risk;DANGELO -AR Precaution Handout Issued No -AR Precaution Comments Verbally reviewed precautions with patient prior to mobility -AR Type of Home House -AR Home Layout Two level;Bed/bath upstairs;Stairs with rails -AR # of Steps-Railed 12 R railing -AR Home Access Stairs to enter without rails -AR Entrance Stairs-Rails None -AR Entrance Stairs-Number of Steps 2 -AR Home Mobility Equipment-Available Wheeled walker -AR Home Mobility Equipment-Currently Using None -AR Level of [place] Independent functional transfers;Independent with ambulation;Needs assistancewith ADLs;Needs assistance with homemaking -AR Lives With Spouse -AR Receives Help From Spouse/Significant other time stamp assembler assist -AR Driving Yes -AR Fall within the last 6 months Yes -AR Fall within the last 6 months comment 2; reports falling twice on Wednesday 07/12 when she stated her body was not doing what she told it to. -AR Activity Tolerance Comments Meme: somewhat easy -AR Pain Assessment 0-10 -AR Pain Score 3 -AR Pain Location Hip -AR Pain Orientation Right -AR Pain Interventions Repositioned;Rest -AR Arousal/Alertness Alert;Appropriate responses to stimuli -AR Orientation Oriented X4 (person, place, time, situation) -AR Following Commands Follows all commands and directions without difficulty -AR Safety Judgment Good awareness of safety precautions -AR Compliance/Behavior Easy to engage -AR Light Touch WFL B LEs -AR Deep Pressure WFL B LEs -AR Numbness/Tingling Yes reports tingling in L hand -AR Balance Yes -AR Static Sitting-Balance Support No upper extremity supported;Feet supported -AR Static Sitting-Sitting Surface Bed -AR Static Sitting-Level of Assistance Independent -AR Dynamic Sitting-Balance Support No upper extremity supported;Feet supported -AR Dynamic Sitting-Balance Lateral lean;Forward lean;Reaching for objects -AR Dynamic Sitting-Sitting Surface Bed -AR Dynamic Sitting-Level of Assistance Independent -AR Static Standing-Balance Support No upper extremity supported -AR Static Standing-Standing Surface Floor -AR Static Standing-Level of Assistance Distant supervision -AR Static Standing-Comment/# of Minutes safety -AR Dynamic Standing-Balance Support No upper extremity supported -AR Dynamic Standing-Balance Lateral lean;Forward lean -AR Dynamic Standing-Standing Surface Floor -AR Dynamic Standing-Level of Assistance Distant supervision -AR Dynamic Standing-Comments safety -AR Bed Mobility Yes -AR Bed Mobility From 1 Supine -AR Bed Mobility Type 1 To and from -AR Bed Mobility to 1 Edge of bed -AR Level of Assistance 1 Modified Independent increased time to complete transfer -AR Bed Mobility Comments 1 safety -AR Transfer Yes -AR Transfer From 1 Sit -AR Transfer Type 1 To and from -AR Transfer to 1 Stand -AR Technique 1 Sit to stand;Stand to sit -AR Transfer Device 1 No device -AR Transfer Level of Assistance 1 Distant supervision -AR Trials/Comments 1 safety -AR Transfer From 2 Bed -AR Transfer Type 2 To -AR Transfer to 2 Toilet -AR Technique 2 Ambulation -AR Transfer Device 2 No device -AR Transfer Level of Assistance 2 Distant supervision -AR Trials/Comments 2 safety -AR Ambulation Yes -AR Distance (ft) 1 150 -AR Surface 1 Level tile -AR Device 1 Wheeled walker -AR Assistance 1 Distant supervision;Standby Assist -AR Gait: Requires verbal cues to 1 Use assistive device safely;Pace activity -AR Gait Deviations 1 Posture - flexed;Turns - difficulty -AR Quality of Gait 1 Patient needed frequent verbal cueing to improve negotiation of WW. -AR Distance (ft) 2 100 -AR Surface 2 Level tile -AR Device 2 No device -AR Assistance 2 Distant supervision -AR Gait: Requires verbal cues to 2 Pace activity -AR Quality of Gait 2 Patient demonstrates improvements in gait without use of WW. Demonstrates improved trunk posture. Verbal cueing given for patient to pace activity and slow down. -AR Stairs Yes -AR Number of Stairs 1 12 -AR Rails 1 Right -AR Device 1 No device -AR Assistance 1 Standby Assist -AR RLE Assessment X -AR R Hip Flexion 4/5 -AR R Knee Flexion 3+/5 -AR R Knee Extension 4+/5 -AR R Ankle Dorsiflexion 3+/5 -AR R Ankle Plantar Flexion 3+/5 -AR LLE Assessment X -AR L Hip Flexion 4/5 -AR L Knee Flexion 4/5 -AR L Knee Extension 4+/5 -AR L Ankle Dorsiflexion 4-/5 -AR L Ankle Plantar Flexion 4-/5 -AR How much difficulty does the patient have: Turning over in bed 4 -AR How much difficulty does the patient currently have: Sitting down and standing up from a chair witharms? 4 -AR How much difficulty does the patient have: Moving from lying on back to sitting on the side of the bed? 4 -AR How much difficulty does the patient have: Moving to and from a bed to a chair including wheelchair? 4 -AR How much help does the patient currently need: Walk in hospital room? 4 -AR How much help from another person does the patient currently need: Climbing 3-5 steps with a railing? 3 -AR Total 6 Click Score (range 6-24) 23 -AR Score Interpretation 50.88 -AR Safe Environment End of Therapy Session Patient left supine in bed;Call light within reach;Overbed table within reach -AR Prognosis Good -AR Problem List Decreased mobility -AR Problem List Comments PT Diagnosis: increased falls and intermittent aphasia results in above listed activity deficits and impairments which prevent full participation in home and community mobility -AR Barriers to Discharge None -AR Plan Discharge;If this is the last note, consider this the discharge summary -AR PT Recommendation/Plan Home with family;Home with intermittent assist;Home Health PT -AR Patient at high risk for Falls;Injury due to reduced functional status -AR PT Recommendation/Plan Comments Patient in agreement with current dispo. No further acute care PT indicated. -AR PT Frequency during current admission Discharge from this Service -AR Treatment/Interventions during current admission Balance Training;Bed mobility;Endurance training;Equipment eval/education;Functional activity;Functional transfer training;Gait training;Neuromuscularre- education;Stair training;Strengthening;Therapeutic activity;Therapeutic exercise;Transfer training -AR PT Equipment Recommended None -AR Progress during current admission Discontinue PT -AR PT Evaluation Complete Yes -AR User Desouza (r) = Recorded By, (t) = Taken By, (c) = Cosigned By Initials Name Effective Dates Kesha Garcia, PT 05/25/23 - PT TREATMENT (last 168 hours) PT Treatment No documentation. PT Notes 07/17/2023 1:34 PM Progress Notes signed by Kesha Farnsworth, PT ONDITIONING ENGINEER * Initial Assessments - Umesh Berry RN - 07/17/2023 12:36 PM AIRCONDITIONING ENGINEER CM Initial Assessment Interview Note Information Obtained From: Patient (07/17/231233) Admission Source: home, presented to ED Impression: 88 y/o female here for stroke Plan Includes: evaluation by medical team and in coordination with PT/OT, any other appropriate disciplines, will develop a safe dc plan to appropriate setting. Primary Source of Transportation: Does the patient need discharge transport arranged?: No (07/17/231233) Health Insurance Coverage: Medicare A/B Prescription Coverage: yes Pharmacy: [id number] [place], [place] - [address] & [address] [facility] [id number] [facility] [address] [place] [address] [id number] Primary Care Provider: Fadi Clemons DO Prior to Admission: Functional Status: Independent with ADLs Primary Caregiver: Self Support System: Spouse/Significant Other Home Care Services: No Durable Medical Equipment: None Living Arrangements: Spouse/significant other Type of Residence: Private residence Steps in home?: Yes, Outside of home, Yes, Inside home Number of steps inside: 12 steps Number of steps outside: 2 steps Medication management: Independent (07/17/231233) Potential discharge needs include: Home Health: [facility], Physical therapy, Occupational therapy (07/17/231233) Dialysis: Dialysis History Start End Type Center Comments 08/09/2009 02/10/2013 Hemo [facility] Information [facility] Address: [address] [place] [id number] Behavioral Health Services: Behavioral Health Services: No (07/17/23 1234) Patient expects to be Discharged to: Private residence, (07/17/23 1234) Additional Information: CM met with patient at bedside to complete initial assessment. Verified address, contact info., emergency contact info., insurance coverage, pharmacy, any DME use, current HH use, stairs outside and inside home, living arrangement, if needing a ride home and PCP. Patient's Identified Problem/Goal Problem: Ensure acute medical needs are met and that patient has a safe discharge plan. Goal: Secure a discharge plan that patient/family are agreeable with and ensure patient has continuum of care. Case management will follow for discharge planning and send referrals as needed. Goals include: To assure continuity of care, To maximize coping skills, To assure patient is in a safe environment and To assure access to community resources. Plan includes: 1. Collaboration with patient, MD, direct care nurse, Ticket Dispatcher, and other members of the health care team to assure needed interventions completed. 2. Return patient to optimal level of self-care post discharge. 3. Knock Up Assembler will follow for Discharge Planning - interventions as needed 4. Anticipated level of care at discharge 5. Planned Discharge Disposition Based on a comprehensive family assessment, assistance with instrumental activities of daily livingafter discharge will be provided by patient and family Through the course of our work I determined that the patient and family possesses the skill and ability to provide and monitor the care of the patient when he or she returns home. patient and family has the capacity to provide/monitor/arrange for the care of the patient. Finally, we determined that patient and family has the knowledge of available resources and that combining them with their existing resources will suffice to sustain and care for the patient when he or she returns home. The treatment team is aware of this information. All are in agreement with the aftercare plan. Umesh Berry RN ONDITIONING ENGINEER * Hospital Course - Lex William MD - 07/17/2023 7:59 AM AIRCONDITIONING ENGINEER Juliet Dunlap is a 88 y.o. 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 Hx [...] She got up and stood, but continued tofeel weakness then had another fall of similar occurrence later that day. She does not localize herweakness to one particular side. Denies lightheadedness, room spinning sensation. She has had fallsin the past but they were from tripping [...] that time. They decided to go to [facility] and on the way had another episode lasting a few minutes. Denies history of stroke, seizures, heart attack. Reports family history ofheart disease on father side but denies history of stroke, seizures, heart attack. Denies smoking, alcohol, drugs. She reports she used to be on Eliquis 5 BID until a few weeks ago when she was told to stop the Eliquis and restart taking Aspirin 81mg. Reports compliance with her medications. Upon arrival to [facility] ED, BP 164/82, BG 85. Initial NIHSS 1 (chronicasymmetric smile). Neurologic exam on presentation to [facility] significant for normal neurologic exam. HCT showed no acute hemorrhage. CTAdemonstrated possible L M2 occlusion. Patient was a NOGO x2 due to no disabling deficits. Upon arrival to the floor, BP 181/78. NIHSS 2 (1 right facial droop, 1 right arm drift). Patient reports feeling back to baseline. She then reported right hand minor difficulty with fine hand movements. Subsequently, the patient underwent TTE which showed an EF of 71% and no thrombi. Stroke risk factors: hypertension age greater than 55 CAD Notable home medications (i.e., anticoagulation): Aspirin 81 #Acute Ischemic Stroke (Territory: Left M2) Juliet Ashlee Mendesmeyer was admitted with acute ischemic stroke attributed to Embolism affecting Middle Cerebral. Etiology: ESUS (favor cardioembolism) Neurologic exam on admission: Mental Status:The patient is alert and oriented to person, place, time and reason for visit. Attention is intact. DOTW backward without error. 7 quarters in $1.75. Language: The patient has fluent speech and follows commands. Cranial Nerves II-XII: Visual hidalgo are full to confrontation. R eyelid droop. PERRL. Extraocular movements are full and without sustained nystagmus. V1-3 is intact to light touch bilaterally. Face is asymmetric with right lower face NLFF, hearing is intact bilaterally to finger rub (L>R) and palate is up-going bilaterally. There is no dysarthria. Motor: Strength is 4+/5 BUE and 4+/5 RLE, 5/5 LLE. [place] BUE. There is right arm pronator drift. Left arm orbiting around right. Reflexes: Reflexes are 2+ at the biceps, brachioradialis and patellae. Sensation: Light touch is normal in all four extremities. Coordination: Finger to nose is normal bilaterally. HKS normal bilaterally. Ambulation:Gait is narrow-based with normal arm swing. 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 The current [place] Stroke Association guidelines recommend long-term treatment with a high-intensity statin even in patient's with LDL level <100, if tolerated. (The SPARCL trial, Prashanth et al. 2010, showed that statin treatment should not be titrated to LDL level.) Additionally, the patient was given ASA 81 and Plavix 300 mg, and continued on aspirin 81 mg PO qD indefinitely and Plavix 75 mg PO qD x21 days for secondary prevention (CHANCE trial: minor stroke NIHSS =< 3 or high-risk TIA ABCD2 >= 4). After the end-date (specified below), the patient should NOT be on dual- antiplatelet therapy. Accordingly her stroke regimen is summarized as the following: Medication Dosage Duration Clopidogrel (Plavix) 75 mg daily 21 days (end date 08/06/2023) Aspirin 81 mg daily Indefinitely, starting 07/16 Atorvastatin (Lipitor) 40 mg daily Indefinitely *Eliza SHEPPARD et al. Comparison of warfarin and aspirin for symptomatic intracranial arterial stenosis. N. Engl. J. Med. 2005. 352:1305-16. SMART Consult was performed and PT/OT recommended discharge to with family with PT/OT. Risk factors were optimized on discharge. Patient and family were advised regarding the risks of new stroke, signs and symptoms of stroke, and how best to avoid a further event. Disposition: Per PT/OT evaluation, the patient was discharged to home with family with home health PT/OT. Follow-up: The patient will follow-up in the outpatient [facility]. 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 - Prednisone 5 daily - Tacrolimus 1mg in morning, 0.5mg in evening - Acyclovir 200 BID - Renal transplant #HTN Restarted home medications ONDITIONING ENGINEER ONDITIONING ENGINEER ONDITIONING ENGINEER ONDITIONING ENGINEER ONDITIONING ENGINEER ONDITIONING ENGINEER ONDITIONING ENGINEER ONDITIONING ENGINEER ONDITIONING ENGINEER ONDITIONING ENGINEER * Plan of Care - Sheri Hilliard RN - 07/17/2023 4:40 AM CST Goals: Clinical Goals for the Shift: Monitoring of neurological status, VS, comfort and safety Summary: Problem: Lack of Knowledge: Goal: Ability to state ways to decrease the risk of falls will improve Outcome: Ongoing Problem: Safety: Goal: Will remain free from falls Outcome: Ongoing Goal: Will remain free from injury from falls Outcome: Ongoing Goal: Will remain free from falls and injury in home environment Outcome: Ongoing Problem: Health Behavior: Goal: Understanding of discharge needs will improve Outcome: Ongoing ONDITIONING ENGINEER * Plan of Care - Sixto Veras RN - 07/16/2023 6:11 PM CST Problem: Lack of Knowledge: Goal: Ability to state ways to decrease the risk of falls will improve Outcome: Progressing Problem: Safety: Goal: Will remain free from falls Outcome: Progressing Goal: Will remain free from injury from falls Outcome: Progressing Goal: Will remain free from falls and injury in home environment Outcome: Progressing Problem: Health Behavior: Goal: Understanding of discharge needs will improve Outcome: Progressing Goals: further workup, keep safe and comfortable ONDITIONING ENGINEER * ED Procedure Note - Garth Vargas MD - 07/16/2023 11:56 AM AIRCONDITIONING ENGINEER Associated Order(s): ECG 12 lead Procedure ECG 12 lead Date/Time: 07/16/2023 11:56 AM Performed by: Garth Vargas MD Authorized by: Garth Vargas MD Rate: ECG rate: 74 ECG rate assessment: normal Rhythm: Rhythm: sinus rhythm Ectopy: Ectopy: none QRS: QRS axis: Normal QRS intervals: Normal Conduction: Conduction: normal ST segments: ST segments: Normal T waves: T waves: inverted Inverted: III Previous ECG: Previous ECG: Compared to current Date of previous EC09/19/2022 Similarity: No change Interpretation: Interpretation: No significant change Garth Vargas MD 07/16/23 1157 ONDITIONING ENGINEER documented in this encounter Plan of Treatment Pending Results Name Type Priority Associated Diagnoses Date /Time aPTT Lab STAT 07/16/2023 11: 33 AM AIRCONDITIONING ENGINEER Scheduled Orders Name Type Priority Associated Diagnoses Orde r Schedule aPTT Lab STAT Once for 1 Occurrences starting 07/16/2023 until 07/16/2023 Urinalysis reflex to microscopic and culture Urine Microbiology Routine Once for 1 Occurrences starting 07/16/2023 until 07/16/2023 Scheduled Referrals Name Type Priority Associated Diagnoses Orde r Schedule Ambulatory referral to Neurology Outpatient Referral Routine Cerebrovascular accident (CVA), unspecified mechanism (HCC) Expected: 08/01/2023 (Approximate), Expires: 07/18/2024 documented as of this encounter Procedures Procedure Name Priority Date/Time Associated Diagnosis Comments EVENT MONITOR Routine 07/18/2023 11:44 AM AIRCONDITIONING ENGINEER TACROLIMUS LEVEL, TROUGH Routine 07/18/2023 5:08 AM AIRCONDITIONING ENGINEER EGFR Routine 07/17/2023 9:09 PM AIRCONDITIONING ENGINEER DIFFERENTIAL AUTO Routine 07/17/2023 9:0 9 PM AIRCONDITIONING ENGINEER CBC WITH AUTO DIFFERENTIAL Routine 07/17/2023 9:09 PM AIRCONDITIONING ENGINEER BASIC METABOLIC PANEL Routine 07/17/2023 9:09 PM AIRCONDITIONING ENGINEER TRANSTHORACIC ECHO (TTE) COMPLETE W DOPPLER/CF WO CONTRAST Routine 07/17/2023 4:01 PM AIRCONDITIONING ENGINEER EGFR Routine 07/16/2023 11:20 PM AIRCONDITIONING ENGINEER DIFFERENTIAL AUTO Routine 07/16/2023 11: 20 PM AIRCONDITIONING ENGINEER CBC WITH AUTO DIFFERENTIAL Routine 07/16/2023 11:20 PM AIRCONDITIONING ENGINEER HEMOGLOBIN A1C Routine 07/16/2023 11:20 PM AIRCONDITIONING ENGINEER LIPID PANEL Routine 07/16/2023 11:20 PM AIRCONDITIONING ENGINEER BASIC METABOLIC PANEL Routine 07/16/2023 11:20 PM AIRCONDITIONING ENGINEER XR CHEST 1 VIEW IP Routine 07/16/2023 10:12 PM AIRCONDITIONING ENGINEER TROPONIN I HIGH-SENSITIVITY 2-HOUR Timed 07/16/2023 1:51 PM AIRCONDITIONING ENGINEER ECG 12-LEAD STAT 07/16/2023 11:56 AM AIRCONDITIONING ENGINEER TROPONIN I HIGH-SENSITIVITY SERIES (BASELINE, 2HR, 4HR, 6HR) STAT 07/16/2023 11:33 AM AIRCONDITIONING ENGINEER EGFR STAT 07/16/2023 11:33 AM AIRCONDITIONING ENGINEER DIFFERENTIAL AUTO STAT 07/16/2023 11: 33 AM AIRCONDITIONING ENGINEER HEPARIN ANTI FACTOR XA ACTIVITY STAT 07/16/2023 11:33 AM AIRCONDITIONING ENGINEER CBC WITH AUTO DIFFERENTIAL STAT 07/16/2023 11:33 AM AIRCONDITIONING ENGINEER APTT STAT 07/16/2023 11:33 AM AIRCONDITIONING ENGINEER COMPREHENSIVE METABOLIC PANEL STAT 07/16/2023 11:33 AM AIRCONDITIONING ENGINEER CTA/CTP RAPID STROKE Critical/Life-T hreatening 07/16/2023 11:29 AM AIRCONDITIONING ENGINEER POCT PROTHROMBIN TIME, WHOLE BLOOD Routine 07/16/2023 11:08 AM AIRCONDITIONING ENGINEER POCT PROTHROMBIN TIME, WHOLE BLOOD Routine 07/16/2023 11:07 AM AIRCONDITIONING ENGINEER POCT GLUCOSE DEVICE Routine 07/16/2023 1 1:06 AM AIRCONDITIONING ENGINEER documented in this encounter Results * Event Monitor (07/18/2023 11:44 AM AIRCONDITIONING ENGINEER) Anatomical Region Laterality Modality Electrocardiogra phy 07/18/2023 11:1 0 AM AIRCONDITIONING ENGINEER Narrative 07/26/2023 11:55 PM AIRCONDITIONING ENGINEER Patient name: Juliet Dunlap Date of test: 07/18/2023 Type of Test: Event Monitor ([facility]) [facility] #: 0 ?Location: [facility] : 1935 ??Age: 88 ??Sex: F Ref Physician(s): JOANN GARCIA MD Interpreted by: Adonis Castro MD Hook-Up Tech: Jaquelin Castellano Diagnosis: Monitoring Service: Preventice Reason for Test: R00.2: Palpitations Monitor Used: Body Guardian Heart ([facility]) ??[id number] Enrollment Period: Jul 18 - Jul 20, 2023 Hook-Up Tech comments: Patient Instructions: Understood directions and use of equipment. Number of Transmissions Sent During Enrollment Period: 1 To obtain transmission tracing contact: Rhythm Summary: Mean heart rate: 81 Pauses >= 3 seconds: 0 Tachycardia avg rate: 108 Tachycardia longest duration: 00:37:47 Tachycardia longest episode: 07/19/2023 07:34:00 Tachycardia shortest duration: 00:00:06 Tachycardia shortest episode: 07/18/2023 17:44:00 Cardiologis Review of Transmissions: 3 day study of 121,943 beats. 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 There were 0 critical, 0 serious, and 1 stable events that occurred. , I have reviewed the findings on the individual tracings for the dates noted below and I agree., The full scanned/data report is available in [employer]. labeled MONITOR STRIPS PDF . This study was interpreted by Adonis Castro MD Confirmed on ??07/26/2023 - 23:55:16 by Adonis Castro MD Summary of Transmitted Events: # ??Date ? Time ?HR ?Symptoms/Rhythm ? 1 ??07/18/23 11:35 ?? 72.8 ?Auto Trigger-Baseline ? 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 I have personally reviewed and interpreted this study. Procedure Note Adonis Castro MD PhD - 07/26/2023 Patient name: Juliet Dunlap Date of test: 07/18/2023 Type of Test: Event Monitor ([facility]) Hospital #: 0 Location: [facility] : 1935 Age: 88 Sex: F Ref Physician(s): JOANN GARCIA MD Interpreted by: Adonis Castro MD [employer] Tech: Jaquelin Castellano Diagnosis: Monitoring Service: Preventice Reason for Test: R00.2: Palpitations Monitor Used: Body Guardian Heart ([facility]) [id number] Enrollment Period: Jul 18 - Jul 20, 2023 AFTER-MOUSEUp VIPTALON comments: Patient Instructions: Understood directions and use of equipment. Number of Transmissions Sent During Enrollment Period: 1 To obtain transmission tracing contact: Rhythm Summary: Mean heart rate: 81 Pauses >= 3 seconds: 0 Tachycardia avg rate: 108 Tachycardia longest duration: 00:37:47 Tachycardia longest episode: 07/19/2023 07:34:00 Tachycardia shortest duration: 00:00:06 Tachycardia shortest episode: 07/18/2023 17:44:00 Cardiologis Review of Transmissions: 3 day study of 121,943 beats. 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 There were 0 critical, 0 serious, and 1 stable events that occurred. , I have reviewed the findings on the individual tracings for the dates noted below and I agree., The full scanned/data report is available in [employer]. labeled MONITOR STRIPS PDF . 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 us Joann Garcia MD CV CARDIAC SERVICES PROCEDURE S Final Result * Tacrolimus level trough (07/18/2023 5:08 AM AIRCONDITIONING ENGINEER) Pathologist [facility] [place] Tacrolimus trough 6.5 ng/mL STEVE RAY Comment: Interpretive Data Testing performed by liquid chromatography-tandem mass spectrometry. ??Therapeutic concentrations vary depending on type of transplanted organ and time elapsed since transplant. ??Typical trough concentrations range from 5-15 ng/mL. ??This test was developed and its performance characteristics determined by the [facility] consistent with CLIA requirements. ??This test has not been cleared or approved by the [place] Food and Drug administration. ??Current interpretive data last reviewed 2019. Blood 07/18/2023 5:08 AM AIRCONDITIONING ENGINEER 07/18/2023 6:35 AM AIRCONDITIONING ENGINEER Kasie Rivers MD LAB BLOOD ORDERABLES Fin al Result [facility] Department [place] [address] * eGFR (07/17/2023 9:09 PM AIRCONDITIONING ENGINEER) Pathologist [facility] [place] eGFR 67 >=60 mL/min/1. 73 m2 STEVE RAY Comment: Interpretive Data Reference Interval Normal ?>/= [...] of Race in Diagnosing Kidney Disease, JASN 2020). The CKD-EPI equation should not be used for patients with unstable renal function and has not been validated in children and those over 70. Current interpretive data was last reviewed 2021. Blood 07/17/2023 9:09 PM AIRCONDITIONING ENGINEER 07/17/2023 9:51 PM AIRCONDITIONING ENGINEER us Joann Garcia MD LAB BLOOD ORDERABLES Final Re sult [facility] Department [place] [address] * (ABNORMAL) Differential, auto (07/17/2023 9:09 PM AIRCONDITIONING ENGINEER) Neutrophil abs 4.8 1.5 - 6.5 K/cumm [facility] Imm gran abs 0.0 0.0 - 0.1 K/cumm [facility] Lymphocyte abs 0.5(L) 0.8 - 3.3 K/cumm [facility] Monocyte abs 0.5 0.2 - 0.8 K/cumm [facility] Eosinophil abs 0.1 0.0 - 0.5 K/cumm [facility] Basophil abs 0.0 0.0 - 0.1 K/cumm [facility] Neutrophil pct 81.6 % [facility] Comment: Interpretive Data Percent cell count reference ranges are not reported, since discordance with absolute values may lead to misinterpretation of CBC data. Current Interpretive Data was last revised on 2017. Imm gran pct 0.3 % [facility] Comment: Interpretive Data Percent cell count reference ranges are not reported, since discordance with absolute values may lead to misinterpretation of CBC data. Current Interpretive Data was last revised on 2017. Lymphocyte pct 7.6 % [facility] Comment: Interpretive Data Percent cell count reference ranges are not reported, since discordance with absolute values may lead to misinterpretation of CBC data. Current Interpretive Data was last revised on 2017. Monocyte pct 9.0 % [facility] Comment: Interpretive Data Percent cell count reference ranges are not reported, since discordance with absolute values may lead to misinterpretation of CBC data. Current Interpretive Data was last revised on 2017. Eosinophil pct 0.8 % [facility] Comment: Interpretive Data Percent cell count reference ranges are not reported, since discordance with absolute values may lead to misinterpretation of CBC data. Current Interpretive Data was last revised on 2017. Basophil pct 0.7 % [facility] Comment: Interpretive Data Percent cell count reference ranges are not reported, since discordance with absolute values may lead to misinterpretation of CBC data. Current Interpretive Data was last revised on 2017. Blood 07/17/2023 9:09 PM AIRCONDITIONING ENGINEER 07/17/2023 9:51 PM AIRCONDITIONING ENGINEER us Joann Garcia MD LAB BLOOD ORDERABLES Final Re sult [facility] Department [place] [address] * Basic metabolic panel (07/17/2023 9:09 PM AIRCONDITIONING ENGINEER) Sodium 135 135 - 145 mmol/L [facility] Potassium, pl See Comment 3.3 - 4.9 mmol/L [facility] Comment:Credited; Hemolyzed Specimen Chloride 104 97 - 110 mmol/L [facility] CO2 23 22 - 32 mmol/L [facility] Anion gap 8 2 - 15 mmol/L [facility] BUN 21 6 - 25 mg/dL [facility] Creatinine 0.85 0.60 - 1.10 mg/dL [facility] Glucose 101 70 - 199 mg/dL [facility] Comment: Interpretive Data Fasting glucose >/= 126 [...] classification and Diagnosis of Diabetes Diabetes Care 2021; 46: S19-S40. Current interpretive data was last revised 2022. Calcium 9.6 8.5 - 10.3 mg/dL [facility] Blood 07/17/2023 9:09 PM AIRCONDITIONING ENGINEER 07/17/2023 9:51 PM AIRCONDITIONING ENGINEER us Joann Garcia MD LAB BLOOD ORDERABLES Final Re sult [facility] Department [place] [address] * (ABNORMAL) CBC with auto differential (07/17/2023 9:09 PM AIRCONDITIONING ENGINEER) Pathologist [facility] [place] WBC 5.9 3.8 - 9.9 K/cumm [facility] Hgb 12.8 11.9 - 15.5 g/dL [facility] Hct 39.2 35.6 - 45.5 % [facility] Plt 129(L) 150 - 400 K/cumm [facility] MPV 10.9 9.1 - 12.3 fL [facility] RBC 3.87(L) 3.90 - 5.20 M/cumm [facility] MCV 101.3(H) 81.3 - 96.4 fL [facility] MCH 33.1 27.1 - 33.3 pg [facility] MCHC 32.7 32.3 - 35.7 g/dL [facility] RDW CV 12.7 11.1 - 14.9 % [facility] RDW SD 47.0 35.7 - 48.1 fL [facility] NRBC abs 0.00 0.00 - 0.01 K/cumm [facility] Blood 07/17/2023 9:09 PM AIRCONDITIONING ENGINEER 07/17/2023 9:51 PM AIRCONDITIONING ENGINEER us Joann Garcia MD LAB BLOOD ORDERABLES Final Re sult [facility] Department [place] [address] * TRANSTHORACIC ECHO (TTE) COMPLETE W DOPPLER/CF WO CONTRAST (07/17/2023 4:01 PM AIRCONDITIONING ENGINEER) LV EF 71 % CARDIOREPORT Anatomical Region Laterality Modality Ultrasound 07/17/2023 2:00 PM AIRCONDITIONING ENGINEER Narrative 07/17/2023 6:57 PM AIRCONDITIONING ENGINEER Patient name: Juliet Dunlap Date of test: 07/17/2023 Type of test: TTE w/Doppler Hospital #: 0 Date of : 1935 (F) Protective Signal Installer: Fadi Stearns RDCS Referring Physician: JOANN GARCIA MD Contrast Agent: Unable to obtain IV access for contrast administration. Contrast Administered by: Supervised/Interpreted by: Chaparro Wen MD Diagnosis: Location: [facility] Reason for test: post stroke evaluation MV Structure: moderately thickened, ?MV Motion: mildly restricted, ?? Mitral Annulus: markedly calcified AV Structure: tricuspid and is moderately thickened, ?? AV Motion: minimally restricted Aotic root: normal, ?TM: normal, ?? PV: Valvular Vegetations: none seen, ?Mass/Thrombi: not seen RA: normal Measurements: ?M-Mode ?Normal ? Aotic Root: ? <3.8 ? LA: ? <3.8 ? RV: ? <2.8 ? LV(ED): ? <5.7 ? LV(ES): ? Variable ?2D Linear Normal ? Aotic Root: ? <3.6 ? Ao Indexed: ? <2.0 ? LA: ? <3.8 ? RV: ? 3.7 cm ?<4.2 ? LV(ED): ? 3.3 cm ?<5.3 ? LV(ES): ? 2.0 cm ?<3.5 ?2D Vol. ?? Normal ?Indexed ?? Indexed Normal RA: ? 38.0 ml ? 24.6 ml/M2 ?9-33 ? LA: ? 75.0 ml ? 48.6 ml/M2 ?16-34 ? RV: ? <11.6 ? LV(ED): ? 38.0 ml ?? 46-106 ?24.6 ml/M2 ?<62 ? LV(ES): ? 11.0 ml ?? 14-42 ? 7.1 ml/M2 ? <25 ?3D Vol. ? Indexed Normal LV(ED): ?<62 ? LV(ES): ?<24 ? LV EF: 71 % ?? (Normal: >=54%) ?? LV Septum: 1.1 cm ?(Normal: <0.9 cm) Wall Motion Scoring (1=Normal 2=Hypo 3=Akinetic 4=Dyskin./Aneurysm 0=Not visualized) Parasternal Long [place]:MAS=1 BAS=1 MIL=1 YADIRA=1 Parasternal Short [place]:MAS=1 MIS=1 ID=1 MIL=1 MAL=1 MA=1 Apical 4 Chambers:=1 MIS=1 BIS=1 BAL=1 MAL=1 AL=1 AC=1 Apical 2 Chambers:AI=1 ID=1 BI=1 BA=1 MA=1 AA=1 AC=1 LV Global Longitudinal Strain: -13% ??(Normal <-17%) RV Global Longitudinal Strain: -20% ??(Normal <-17%) LV Function: Normal LV Ejection Fraction, ??(EF=54-74%) RV Function: Normal Septal Motion: normal Pericardial Effusion: none seen Atrial Septum: Normal DOPPLER/COLOR FLOW DOPPLER RESULTS: Diastolic Function: indeterminate Tricuspid Valve: mild TV regurgitation Pulmonic Valve: AV Regurgitation: No AR seen AV Stenosis: no AV Area: ??cm2 AV Pressure Gradient (mmHg): Mean: 10, Peak:16 MV Regurgitation: No MR seen MV Stenosis: mild MS MV Area: ??cm2 MV Pressure Gradient (mmHg): Mean: 5.8 MV ERO: ??cm Regurg. Vol.: ??ml/beat Regurg. Frac.: ??% PA Pressure: 38 mmHg DOPPLER/COLOR FOLOW DOPPLER COMMENTS: No AR seen, No MR seen, no , mild MS, mild TV regurgitation, . Diastolic function: indeterminate ??30 mmHg sub aortic gradient which incrdases to 59 with Valsalva LVOT VTI=23.0 30 mmHg sub aortic gradient which incrdases to 59 with Valsalva LVOT VTI=23.0 ?? CONTRAST: Unable to obtain IV access for contrast administration. SUMMARY: LA is markedly dilated. Normal RV cavity size. LV cavity size is normal. Mild concentric LV hypertrophy. Normal aorta. ??LV systolic function is normal without regional wall motion abnormalities. ??LVEF=71%. ??RV systolic function is normal. ??The aortic valve is mildy thicked but not stenotic. ??There is a mid to sub valvular systolic gradient of 30 mm baseline that increases to 60 mmHg with Valsalva. The mitral valve aparatusis thickened/calcifiedwith a mean gradient of 5.8 mmHg. No intrcardiac masses or thrombi were detected. Confirmed on ??07/17/2023 - 18:57:41 by Chaparro Wen MD By signing this report, the attending director style certifies that he or she has personally supervised and interpreted the echocardiogram and has reviewed and or edited and agrees with the written comments contained within the report. Procedure Note Chaparro Wen MD - 07/17/2023 Patient name: Juliet Dunlap Date of test: 07/17/2023 Type of test: TTE w/Doppler [facility] #: [id number] Date of : 1935 (F) Protective Signal Installer: Fadi Stearns RDCS Referring Physician: JOANN GARCIA MD Contrast Agent: Unable to obtain IV access for contrast administration. Contrast Administered by: Supervised/Interpreted by: Chaparro Wen MD Diagnosis: Location: [facility] Reason for test: post stroke evaluation MV Structure: moderately thickened, MV Motion: mildly restricted, Mitral Annulus: markedly calcified AV Structure: tricuspid and is moderately thickened, AV Motion: minimally restricted Aotic root: normal, TM: normal, PV: Valvular Vegetations: none seen, Mass/Thrombi: not seen RA: normal Measurements: M-Mode Normal Aotic Root: <3.8 LA: <3.8 RV: <2.8 LV(ED): <5.7 LV(ES): Variable 2D Linear Normal Aotic Root: <3.6 Ao Indexed: <2.0 LA: <3.8 RV: 3.7 cm <4.2 LV(ED): 3.3 cm <5.3 LV(ES): 2.0 cm <3.5 2D Vol. Normal Indexed Indexed Normal RA: 38.0 ml 24.6 ml/M2 9-33 LA: 75.0 ml 48.6 ml/M2 16-34 RV: <11.6 LV(ED): 38.0 ml 46-106 24.6 ml/M2 <62 LV(ES): 11.0 ml 14-42 7.1 ml/M2 <25 3D Vol. Indexed Normal LV(ED): <62 LV(ES): <24 LV EF: 71 % (Normal: >=54%) LV Septum: 1.1 cm (Normal: <0.9 cm) Wall Motion Scoring (1=Normal 2=Hypo 3=Akinetic 4=Dyskin./Aneurysm 0=Not visualized) Parasternal Long [place]:MAS=1 BAS=1 MIL=1 YADIRA=1 Parasternal Short [place]:MAS=1 MIS=1 ID=1 MIL=1 MAL=1 MA=1 Apical 4 Chambers:=1 MIS=1 BIS=1 BAL=1 MAL=1 AL=1 AC=1 Apical 2 Chambers:AI=1 ID=1 BI=1 BA=1 MA=1 AA=1 AC=1 LV Global Longitudinal Strain: -13% (Normal <-17%) RV Global Longitudinal Strain: -20% (Normal <-17%) LV Function: Normal LV Ejection Fraction, (EF=54-74%) RV Function: Normal Septal Motion: normal Pericardial Effusion: none seen Atrial Septum: Normal DOPPLER/COLOR FLOW DOPPLER RESULTS: Diastolic Function: indeterminate Tricuspid Valve: mild TV regurgitation Pulmonic Valve: AV Regurgitation: No AR seen AV Stenosis: no AV Area: cm2 AV Pressure Gradient (mmHg): Mean: 10, Peak:16 MV Regurgitation: No MR seen MV Stenosis: mild MS MV Area: cm2 MV Pressure Gradient (mmHg): Mean: 5.8 MV ERO: cm Regurg. Vol.: ml/beat Regurg. Frac.: % PA Pressure: 38 mmHg DOPPLER/COLOR FOLOW DOPPLER COMMENTS: No AR seen, No MR seen, no , mild MS, mild TV regurgitation, . Diastolic function: indeterminate 30 mmHg sub aortic gradient which incrdases to 59 with Valsalva LVOT VTI=23.0 30 mmHg sub aortic gradient which incrdases to 59 with Valsalva LVOT VTI=23.0 CONTRAST: Unable to obtain IV access for contrast administration. SUMMARY: LA is markedly dilated. Normal RV cavity size. LV cavity size is normal. Mild concentric LV hypertrophy. Normal aorta. LV systolic function is normal without regional wall motion abnormalities. LVEF=71%. RV systolic function is normal. The aortic valve is mildy thicked but not stenotic. There is a mid to sub valvular systolic gradient of 30 mm baseline that increases to 60 mmHg with Valsalva. The mitral valve aparatusis thickened/calcifiedwith a mean gradient of 5.8 mmHg. No intrcardiac masses or thrombi were detected. Confirmed on 07/17/2023 - 18:57:41 by Chaparro Wen MD By signing this report, the attending director style certifies that he or she has personally supervised and interpreted the echocardiogram and has reviewed and or edited and agrees with the written comments contained within the report. us Joann Garcia MD CV ECHO PROCEDURES Final Resu lt * eGFR (07/16/2023 11:20 PM AIRCONDITIONING ENGINEER) eGFR 68 >=60 mL/min/1. 73 m2 [facility] Comment: Interpretive Data Reference Interval Normal ?>/= [...] interpretive data was last reviewed 2021. Blood 07/16/2023 11:2 0 PM AIRCONDITIONING ENGINEER 07/16/2023 11:47 PM AIRCONDITIONING ENGINEER us Joann Garcia MD LAB BLOOD ORDERABLES Final Re sult [facility] Department [place] [address] * (ABNORMAL) Differential, auto (07/16/2023 11:20 PM AIRCONDITIONING ENGINEER) Neutrophil abs 4.3 1.5 - 6.5 K/cumm [facility] Imm gran abs 0.0 0.0 - 0.1 K/cumm [facility] Lymphocyte abs 0.5(L) 0.8 - 3.3 K/cumm [facility] Monocyte abs 0.6 0.2 - 0.8 K/cumm [facility] Eosinophil abs 0.2 0.0 - 0.5 K/cumm [facility] Basophil abs 0.0 0.0 - 0.1 K/cumm [facility] Neutrophil pct 75.1 % [facility] Comment: Interpretive Data Percent cell count reference ranges are not reported, since discordance with absolute values may lead to misinterpretation of CBC data. Current Interpretive Data was last revised on 2017. Imm gran pct 0.5 % [facility] Comment: Interpretive Data Percent cell count reference ranges are not reported, since discordance with absolute values may lead to misinterpretation of CBC data. Current Interpretive Data was last revised on 2017. Lymphocyte pct 9.2 % [facility] Comment: Interpretive Data Percent cell count reference ranges are not reported, since discordance with absolute values may lead to misinterpretation of CBC data. Current Interpretive Data was last revised on 2017. Monocyte pct 11.0 % [facility] Comment: Interpretive Data Percent cell count reference ranges are not reported, since discordance with absolute values may lead to misinterpretation of CBC data. Current Interpretive Data was last revised on 2017. Eosinophil pct 3.7 % [facility] Comment: Interpretive Data Percent cell count reference ranges are not reported, since discordance with absolute values may lead to misinterpretation of CBC data. Current Interpretive Data was last revised on 2017. Basophil pct 0.5 % [facility] Comment: Interpretive Data Percent cell count reference ranges are not reported, since discordance with absolute values may lead to misinterpretation of CBC data. Current Interpretive Data was last revised on 2017. Blood 07/16/2023 11:2 0 PM AIRCONDITIONING ENGINEER 07/16/2023 11:48 PM AIRCONDITIONING ENGINEER us Joann Garcia MD LAB BLOOD ORDERABLES Final Re sult [facility] Department [place] [address] * Basic metabolic panel (07/16/2023 11:20 PM AIRCONDITIONING ENGINEER) Sodium 141 135 - 145 mmol/L [facility] Potassium, pl 4.3 3.3 - 4.9 mmol/L [facility] Chloride 108 97 - 110 mmol/L [facility] CO2 25 22 - 32 mmol/L [facility] Anion gap 8 2 - 15 mmol/L [facility] BUN 23 6 - 25 mg/dL [facility] Creatinine 0.84 0.60 - 1.10 mg/dL [facility] Glucose 109 70 - 199 mg/dL [facility] Comment: Interpretive Data Fasting glucose >/= 126 [...] classification and Diagnosis of Diabetes Diabetes Care 2021; 46: S19-S40. Current interpretive data was last revised 2022. Calcium 10.0 8.5 - 10.3 mg/dL [facility] Blood 07/16/2023 11:2 0 PM AIRCONDITIONING ENGINEER 07/16/2023 11:47 PM AIRCONDITIONING ENGINEER Joann Garcia MD LAB BLOOD ORDERABLES Final Re sult Performing Organization Address City/[facility]/ZIP Co de Phone Number [facility] Department [place] [address] * (ABNORMAL) CBC with auto differential (07/16/2023 11:20 PM AIRCONDITIONING ENGINEER) Pathologist [facility] [place] WBC 5.8 3.8 - 9.9 K/cumm [facility] Hgb 12.6 11.9 - 15.5 g/dL [facility] Hct 38.2 35.6 - 45.5 % [facility] Plt 150 150 - 400 K/cumm [facility] MPV 10.8 9.1 - 12.3 fL [facility] RBC 3.77(L) 3.90 - 5.20 M/cumm [facility] MCV 101.3(H) 81.3 - 96.4 fL [facility] MCH 33.4(H) 27.1 - 33.3 pg [facility] MCHC 33.0 32.3 - 35.7 g/dL [facility] RDW CV 12.6 11.1 - 14.9 % [facility] RDW SD 46.8 35.7 - 48.1 fL [facility] NRBC abs 0.00 0.00 - 0.01 K/cumm [facility] Blood 07/16/2023 11:2 0 PM AIRCONDITIONING ENGINEER 07/16/2023 11:48 PM AIRCONDITIONING ENGINEER us Joann Garcia MD LAB BLOOD ORDERABLES Final Re sult [facility] Department [place] [address] * Lipid panel (07/16/2023 11:20 PM AIRCONDITIONING ENGINEER) Pathologist [facility] [place] Cholesterol 146 30 - 199 mg/dL [facility] Comment: Interpretive Data Ages < or = 19 years ??Acceptable: ? <170 mg/dL ??Borderline high: ??170-199 mg/dL ??High: ? >or= 200 mg/dL Ages > or = 20 years ??Desirable: ?<200 mg/dL ??Borderline high: ??200-239 mg/dL ??High: ? >or= 240 mg/dL Literature References: 1. Expert Panel on Integrated Guidelines for Cardiovascular Health and Risk Reduction in Children and Adolescents. Pediatrics 2011;128:S213 2. NCEP Expert Panel. Circulation 2004;110:227 Current Interpretive Data was last revised on 2018. Triglycerides 99 <=149 mg/dL [facility] Comment: Interpretive Data Ages < or = 9 years ??Acceptable: ? <75 mg/dL ??Borderline high: ??75-99 mg/dL ??High: ? >or= 100 mg/dL Ages 10 to 20 years ??Acceptable: ? <90 mg/dL ??Borderline high: ??90-129 mg/dL ??High: ? >or= 130 mg/dL Ages > or = 20 years ??Desirable: ?<150 mg/dL ??Borderline high: ??150-199 mg/dL ??High: ? 200-499 mg/dL ?Very high: ?? >or= 499 mg/dL Literature References: 1. Expert Panel on Integrated Guidelines for Cardiovascular Health and Risk Reduction in Children and Adolescents. Pediatrics 2011;128:S213 2. NCEP Expert Panel. Circulation 2004;110:227 Current Interpretive Data was last revised on 2018. HDL 60 >=40 mg/dL [facility] Comment: Interpretive Data Ages < or = 19 years ??Acceptable: ? >45 mg/dL ??Borderline low: ?? 40-45 mg/dL ??Low: ? <40 mg/dL Ages > or = 20 years ??Desirable: ?>or= 60 mg/dL ??Low: ? <40 mg/dL Literature References: 1. Expert Panel on Integrated Guidelines for Cardiovascular Health and Risk Reduction in Children and Adolescents. Pediatrics 2011;128:S213 2. NCEP Expert Panel. Circulation 2004;110:227 Current Interpretive Data was last revised on 2018. LDL, calculated 66 <=129 mg/dL [facility] Comment: Interpretive Data Ages < or = 19 years ??Acceptable: ? <110 mg/dL ??Borderline high: ??110-129 mg/dL ??High: ?>or= 130 mg/dL Ages > or = 20 years ??Optimal: ? <100 mg/dL ??Near optimal: ?100-129 mg/dL ??Borderline high: ?? 130-159 mg/dL ??High: ?>160 mg/dL Literature References: 1. Expert Panel on Integrated Guidelines for Cardiovascular Health and Risk Reduction in Children and Adolescents. Pediatrics 2011;128:S213 2. NCEP Expert Panel. Circulation 2004;110:227 Current Interpretive Data was last revised on 2018. Non-HDL Cholesterol 86 mg/dL [facility] Comment: Interpretive Data Ages < or = 19 years ??Acceptable: ?<120 mg/dL ??Borderline high: ??120-144 mg/dL ??High: ?>145 mg/dL Ages > or = 20 years ??When triglycerides are >200 mg/dL, Non-HDL cholesterol is a secondary target of ? therapy with treatment goals that are 30 mg/dL greater than the LDL cholesterol target. ? Literature References: 1. Expert Panel on Integrated Guidelines for Cardiovascular Health and Risk Reduction in Children and Adolescents. Pediatrics 2011;128:S213 2. NCEP Expert Panel. Circulation 2004;110:227 Current Interpretive Data was last revised on 2018. Chol/HDL ratio 2 [facility] Blood 07/16/2023 11:2 0 PM AIRCONDITIONING ENGINEER 07/16/2023 11:47 PM AIRCONDITIONING ENGINEER us Joann Garcia MD LAB BLOOD ORDERABLES Final Re sult [facility] Department [place] [address] * (ABNORMAL) Hemoglobin A1c (07/16/2023 11:20 PM AIRCONDITIONING ENGINEER) Hgb A1C 5.8(H) 4.0 - 5.6 % [facility] Estimated Average Glucose 120 mg/dL [facility] Comment: The ADA recommends reporting an estimated Average Glucose (eAG) with all Hemoglobin A1c results using the equation derived from a study of 507 normal and diabetic adults. ??Minority populations were underrepresented and children were not included. ?? (Diabetes Care 2020; 43(S1): S66-S76). ??The eAG is not equivalent to a fasting glucose. Blood 07/16/2023 11:2 0 PM AIRCONDITIONING ENGINEER 07/16/2023 11:47 PM AIRCONDITIONING ENGINEER us Joann Garcia MD LAB BLOOD ORDERABLES Final Re sult [facility] Department [place] [address] * XR Chest 1 View (07/16/2023 10:12 PM AIRCONDITIONING ENGINEER) Anatomical Region Laterality Modality Body, Chest N/A Computed Radiogr aphy 07/17/2023 9:01 AM AIRCONDITIONING ENGINEER Impressions 07/17/2023 9:23 AM AIRCONDITIONING ENGINEER The patient is rotated. ??Small left-sided pleural effusion with associated partial left lower lobe collapse is slightly increased from prior radiograph. ??No pneumothorax. Cardiac silhouette is stable from prior radiograph. ??Mitral annular calcifications again noted. Dictated by: Ivan Rosado MD The radiology attending physician has personally reviewed this study, and had reviewed and/or edited this written report and agrees with it. Electronically signed by: David Rubio M.D. Narrative 07/17/2023 9:23 AM AIRCONDITIONING ENGINEER EXAMINATION: 1 view chest radiograph Comparison to chest radiograph from 09/13/2022 at 3:24 PM Procedure Note David Rubio MD - 07/17/2023 EXAMINATION: 1 view chest radiograph Comparison to chest radiograph from 09/13/2022 at 3:24 PM IMPRESSION: The patient is rotated. Small left-sided pleural effusion with associated partial left lower lobe collapse is slightly increased from prior radiograph. No pneumothorax. Cardiac silhouette is stable from prior radiograph. Mitral annular calcifications again noted. Dictated by: Ivan Rosado MD The radiology attending physician has personally reviewed this study, and had reviewed and/or edited this written report and agrees with it. Electronically signed by: David Rubio M.D. us Joann Garcia MD IMG XR PROCEDURES Final Resul t * Troponin I high-sensitivity 2-hour (07/16/2023 1:51 PM AIRCONDITIONING ENGINEER) Trop I hs 10 <=17 ng/L [facility] Comment: Interpretive Data For further hscTnI resources including the diagnostic algorithm and an aid in interpretation, copy and paste this link: https://bjhlab.testcatalog.org/show/[email or web address] Current Interpretive Data last revised 2020. Trop I hs delta 2 ng/L [facility] Trop I hs interp Insignificant [facility] Blood 07/16/2023 1:51 PM AIRCONDITIONING ENGINEER 07/16/2023 2:14 PM AIRCONDITIONING ENGINEER us Garth Vargas MD LAB BLOOD ORDERABLES Final Result [facility] [place] [address] * ECG 12-LEAD (07/16/2023 11:56 AM AIRCONDITIONING ENGINEER) Narrative [facility] - 07/16/2023 11:56 AM AIRCONDITIONING ENGINEER Garth Vargas MD ? 07/16/2023 11:57 AM ECG 12 lead Date/Time: 07/16/2023 11:56 AM Performed by: Garth Vargas MD Authorized by: Garth Vargas MD ?? Rate: ??ECG rate: ??74 ??ECG rate assessment: normal ?? Rhythm: ??Rhythm: sinus rhythm ?? Ectopy: ??Ectopy: none ?? QRS: ??QRS axis: ??Normal ??QRS intervals: ??Normal Conduction: ??Conduction: normal ?? ST segments: ??ST segments: ??Normal T waves: ??T waves: inverted ?Inverted: ??III Previous ECG: ??Previous ECG: ??Compared to current ??Date of previous ECG: ??09/19/2022 ??Similarity: ??No change Interpretation: ??Interpretation: No significant change ?? Joann Garcia MD ECG ORDERABLES Final Result [facility] * (ABNORMAL) eGFR (07/16/2023 11:33 AM AIRCONDITIONING ENGINEER) eGFR 59(L) >=60 mL/min/1. 73 m2 [facility] Comment: Interpretive Data Reference Interval Normal ?>/= [...] of Race in Diagnosing Kidney Disease, JASN 2020). The CKD-EPI equation should not be used for patients with unstable renal function and has not been validated in children and those over 70. Current interpretive data was last reviewed 2021. Blood 07/16/2023 11:3 3 AM AIRCONDITIONING ENGINEER 07/16/2023 11:40 AM AIRCONDITIONING ENGINEER Joann Garcia MD LAB BLOOD ORDERABLES Final Re sult Performing Organization Address [facility] Co de Phone Number [facility] Department [place] [address] * aPTT (07/16/2023 11:33 AM AIRCONDITIONING ENGINEER) aPTT 28 28 - 38 sec [facility] Comment: Code Blue Specimen Interpretive Data Heparin therapeutic range: 66.0 - 100.0 seconds. Range based on correlation with therapeutic heparin activity range of 0.3 - 0.7 Units/mL. Current interpretive data was last revised on 2023. Blood 07/16/2023 11:3 3 AM AIRCONDITIONING ENGINEER 07/16/2023 11:40 AM AIRCONDITIONING ENGINEER [facility] LAB BLOOD ORDERABLES Edited Resu lt - Final Performing Organization Address [facility] de Phone Number [facility] Department [place] [address] * (ABNORMAL) Differential, auto (07/16/2023 11:33 AM AIRCONDITIONING ENGINEER) Neutrophil abs 4.8 1.5 - 6.5 K/cumm [facility] Imm gran abs 0.0 0.0 - 0.1 K/cumm [facility] Lymphocyte abs 0.6(L) 0.8 - 3.3 K/cumm [facility] Monocyte abs 0.6 0.2 - 0.8 K/cumm [facility] Eosinophil abs 0.2 0.0 - 0.5 K/cumm [facility] Basophil abs 0.1 0.0 - 0.1 K/cumm [facility] Neutrophil pct 77.0 % [facility] Comment: Interpretive Data Percent cell count reference ranges are not reported, since discordance with absolute values may lead to misinterpretation of CBC data. Current Interpretive Data was last revised on 2017. Imm gran pct 0.3 % [facility] Comment: Interpretive Data Percent cell count reference ranges are not reported, since discordance with absolute values may lead to misinterpretation of CBC data. Current Interpretive Data was last revised on 2017. Lymphocyte pct 9.4 % [facility] Comment: Interpretive Data Percent cell count reference ranges are not reported, since discordance with absolute values may lead to misinterpretation of CBC data. Current Interpretive Data was last revised on 2017. Monocyte pct 9.9 % [facility] Comment: Interpretive Data Percent cell count reference ranges are not reported, since discordance with absolute values may lead to misinterpretation of CBC data. Current Interpretive Data was last revised on 2017. Eosinophil pct 2.6 % [facility] Comment: Interpretive Data Percent cell count reference ranges are not reported, since discordance with absolute values may lead to misinterpretation of CBC data. Current Interpretive Data was last revised on 2017. Basophil pct 0.8 % [facility] Comment: Interpretive Data Percent cell count reference ranges are not reported, since discordance with absolute values may lead to misinterpretation of CBC data. Current Interpretive Data was last revised on 2017. Blood 07/16/2023 11:3 3 AM AIRCONDITIONING ENGINEER 07/16/2023 11:40 AM AIRCONDITIONING ENGINEER us Joann Garcia MD LAB BLOOD ORDERABLES Final Re sult [facility] Department [place] [address] * Heparin anti factor Xa activity (07/16/2023 11:33 AM AIRCONDITIONING ENGINEER) Anti Factor Xa <0.10 IUnits/mL [facility] Comment: Code Blue Specimen Interpretive Data Enoxaparin therapeutic range (peak): VTE treatment, Q12hr dosin.60-1.00 IUnits/mL VTE treatment, Q24hr dosin.00-2.00 IUnits/mL Q24hr dosing for renal impairment (CrCl <30 mL/min): 0.60-1.00 IUnits/mL VTE prevention: 0.10-0.40 IUnits/mL - Anti-Xa therapeutic ranges apply to blood samples drawn 4 hours after last dose (peak). - Unfractionated heparin (UFH) therapeutic range: 0.30-0.70 IUnits/mL - Direct factor Xa inhibitors (rivaroxaban, apixaban): Results must be interpreted qualitatively. No activity detected suggests little anticoagulant activity. - In severe antithrombin deficiency, anti-Xa measurement may be inaccurate. - Interpretive guidelines developed in adult populations. Interpretive guidelines for pediatric patients have not been rigorously defined. - Current interpretive data was last revised on 2019. Blood 07/16/2023 11:3 3 AM AIRCONDITIONING ENGINEER 07/16/2023 11:40 AM AIRCONDITIONING ENGINEER us Vik Shaver MD LAB BLOOD ORDERABLES Edit ed Result - Final [facility] Department [place] [address] * Troponin I high-sensitivity series (baseline, 2hr, 4hr, 6hr) (07/16/2023 11:33 AM AIRCONDITIONING ENGINEER) Trop I hs 8 <=17 ng/L [facility] Comment: Code Blue Specimen Interpretive Data For further hscTnI resources including the diagnostic algorithm and an aid in interpretation, copy and paste this link: [email or web address]/[email or web address] Current Interpretive Data last revised 2020. Blood 07/16/2023 11:3 3 AM AIRCONDITIONING ENGINEER 07/16/2023 11:40 AM AIRCONDITIONING ENGINEER us Joann Garcia MD LAB BLOOD ORDERABLES Final Re sult [facility] Department [place] [address] * (ABNORMAL) Comprehensive metabolic panel (07/16/2023 11:33 AM AIRCONDITIONING ENGINEER) Sodium 139 135 - 145 mmol/L [facility] Comment:Code Blue Specimen Potassium, pl 4.7 3.3 - 4.9 mmol/L [facility] Comment:Code Blue Specimen Chloride 104 97 - 110 mmol/L [facility] Comment:Code Blue Specimen CO2 27 22 - 32 mmol/L [facility] Comment:Code Blue Specimen Anion gap 8 2 - 15 mmol/L [facility] Comment:Code Blue Specimen BUN 28(H) 6 - 25 mg/dL [facility] Comment:Code Blue Specimen Creatinine 0.94 0.60 - 1.10 mg/dL [facility] Comment:Code Blue Specimen Glucose 90 70 - 199 mg/dL [facility] Comment: Code Blue Specimen Interpretive Data Fasting glucose >/= 126 mg/dl [...] classification and Diagnosis of Diabetes Diabetes Care 2021; 46: S19-S40. Current interpretive data was last revised 2022. Calcium 9.9 8.5 - 10.3 mg/dL [facility] Comment:Code Blue Specimen Bilirubin, total 0.6 0.1 - 1.2 mg/dL [facility] Comment:Code Blue Specimen Protein, pl 6.9 6.5 - 8.5 g/dL [facility] Comment:Code Blue Specimen Albumin 4.0 3.5 - 5.0 g/dL [facility] Comment:Code Blue Specimen Alk phos 113 40 - 130 Units/L [facility] Comment:Code Blue Specimen ALT 16 7 - 45 Units/L [facility] Comment:Code Blue Specimen AST 28 10 - 45 Units/L [facility] Comment:Code Blue Specimen Blood (Blood, Venous) 07/16/2023 11:33 AM AIRCONDITIONING ENGINEER 07/16/2023 11:40 AM AIRCONDITIONING ENGINEER Narrative [facility] - 07/16/2023 12:00 PM AIRCONDITIONING ENGINEER Potential Stroke Patient us Joann Garcia MD LAB BLOOD ORDERABLES Final Re sult [facility] Department [place] [address] * (ABNORMAL) CBC with auto differential (07/16/2023 11:33 AM AIRCONDITIONING ENGINEER) WBC 6.3 3.8 - 9.9 K/cumm [facility] Comment:Code Blue Specimen Hgb 13.0 11.9 - 15.5 g/dL [facility] Hct 39.6 35.6 - 45.5 % [facility] [place] [address] 142(L) 150 - 400 K/cumm [facility] [place] MPV 10.6 9.1 - 12.3 fL [facility] [place] RBC 3.82(L) 3.90 - 5.20 M/cumm [facility] [place] MCV 103.7(H) 81.3 - 96.4 fL [facility] [place] MCH 34.0(H) 27.1 - 33.3 pg [facility] [place] MCHC 32.8 32.3 - 35.7 g/dL [facility] [place] RDW CV 12.4 11.1 - 14.9 % [facility] [place] RDW SD 46.5 35.7 - 48.1 fL [facility] [place] NRBC abs 0.00 0.00 - 0.01 K/cumm [facility] [place] Blood (Blood, Venous) 07/16/2023 11:33 AM AIRCONDITIONING ENGINEER 07/16/2023 11:40 AM AIRCONDITIONING ENGINEER Narrative [facility] [place] - 07/16/2023 11:46 AM AIRCONDITIONING ENGINEER Potential Stroke Patient us Joann Garcia MD LAB BLOOD ORDERABLES Final Re sult Performing Organization Address City/[facility]/ZIP Co de Phone Number [facility] Department [place] [address] * CTA/CTP Rapid Stroke (C) (07/16/2023 11:29 AM AIRCONDITIONING ENGINEER) Anatomical Region Laterality Modality Head and Neck N/A Computed Tomogra phy 07/16/2023 12:0 4 PM AIRCONDITIONING ENGINEER Impressions 07/16/2023 12:14 PM AIRCONDITIONING ENGINEER 1. ??Acute left proximal M2 occlusion with subtle 14 cc perfusion defect (Tmax >4 seconds) within the left MCA territory in the frontal lobe measuring 14 mL. 2. ??No evidence of acute stroke or intracranial hemorrhage on noncontrast head CT. ??Periventricular white matter disease likely represent sequela of chronic small vessel disease. The Critical results were discussed with Dr Verduzco by Dr. Elinor Alford on 07/16/2023 at 11:14 AM for noncontrast head CT 11:48 AM for CTA. Dictated by: Elinor Alford MD The radiology attending physician has personally reviewed this study, and had reviewed and/or edited this written report and agrees with it. Electronically signed by: Danna Ying M.D. Narrative 07/16/2023 12:14 PM AIRCONDITIONING ENGINEER EXAMINATION: 1. Computed tomography angiography (CTA) of the head without and with contrast 2. Computed tomography angiography (CTA) of the neck with contrast 3. CT perfusion imaging of the head with contrast HISTORY: Slurred speech, gait ataxia. TECHNIQUE: CT of the head was performed with images acquired from skull base to vertex without intravenous contrast. Computed tomographic angiography was then obtained from the aortic arch to the vertex following the uneventful administration of intravenous contrast. 3D images were generated on a dedicated workstation. CT perfusion of the brain was performed with intravenous contrast using a separate data acquisition. The data was transmitted to a separate workstation for processing by RAPID software ([employer]) to produce automated calculations of the estimated cerebral blood flow and Tmax. Contrast information: 120 mL Optiray-350 COMPARISON: Head CT 03/31/2020, CTA head and neck 03/20/2020 FINDINGS: HEAD CT FINDINGS: There is no acute intracranial hemorrhage. There is no noncontrast evidence of acute stroke. There is no vascular hyperdensity of the M1 segments or basilar artery. Periventricular white matter disease is noted. 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 Mild atrophy. Ventricles are of normal size and morphology. There is no mass effect or midline shift. ANGIOGRAPHIC FINDINGS: The visualized aortic arch appears normal with normal configuration of the great vessels. There is no significant stenosis of the origins of the great vessels. Left anterior circulation: L CCA: no occlusion or significant stenosis L carotid bifurcation: Mild calcified atherosclerotic disease. ??No occlusion or significant stenosis L ICA proximal: no occlusion or significant stenosis L ICA distal: no occlusion or significant stenosis L ICA terminus: no occlusion or significant stenosis L M1: no occlusion or significant stenosis L M2 branches: Occlusion of the left M2 branch. L A2: no occlusion or significant stenosis Right anterior circulation: R CCA: no occlusion or significant stenosis R carotid bifurcation: Mild calcified atherosclerotic disease. ??no occlusion or significant stenosis R ICA proximal: no occlusion or significant stenosis R ICA distal: no occlusion or significant stenosis R ICA terminus: no occlusion or significant stenosis R M1: no occlusion or significant stenosis R M2 branches: no occlusion or significant stenosis R A2: no occlusion or significant stenosis Posterior circulation: L Vertebral Artery: no occlusion or significant stenosis R Vertebral Artery: no occlusion or significant stenosis Basilar Artery: no occlusion or significant stenosis L INTERNATIONAL PROJECT ENGINEER: origin of the left INTERNATIONAL PROJECT ENGINEER. ??Mild beading of the INTERNATIONAL PROJECT ENGINEER without evidence of occlusion. R INTERNATIONAL PROJECT ENGINEER: origin of the right INTERNATIONAL PROJECT ENGINEER. ??The junction of the right posterior to indicating artery and right P2 segment is somewhat bulbous/ectatic in appearance. ??There is no focality to suggest aneurysm. ??Mild beading without evidence of occlusion. No cerebral aneurysm is seen. There is no evidence for an arteriovenous malformation. There is no suspicious cervical lymphadenopathy. Multilevel degenerative disc and joint disease. ??No evidence of high-grade neural foraminal or canal stenosis Limited views of the lung apices shows a left pleural effusion with subtle line thickening, concerning for pulmonary edema. PERFUSION FINDINGS: Estimated ischemic core volume (rCBF < 0.3): 0 mL Estimated hypoperfusion volume (Tmax > 6 sec): 0 mL Subtle perfusion defect within the left MCA territory with greater than 4 seconds to Tmax within the left MCA territory measuring 14 mL. Procedure Note Danna Ying MD - 07/16/2023 EXAMINATION: 1. Computed tomography angiography (CTA) of the head without and with contrast 2. Computed tomography angiography (CTA) of the neck with contrast 3. CT perfusion imaging of the head with contrast HISTORY: Slurred speech, gait ataxia. TECHNIQUE: CT of the head was performed with images acquired from skull base to vertex without intravenous contrast. Computed tomographic angiography was then obtained from the aortic arch to the vertex following the uneventful administration of intravenous contrast. 3D images were generated on a dedicated workstation. CT perfusion of the brain was performed with intravenous contrast using a separate data acquisition. The data was transmitted to a separate workstation for processing by RAPID software ([employer]) to produce automated calculations of the estimated cerebral blood flow and Tmax. Contrast information: 120 mL Optiray-350 COMPARISON: Head CT 03/31/2020, CTA head and neck 03/20/2020 FINDINGS: HEAD CT FINDINGS: There is no acute intracranial hemorrhage. There is no noncontrast evidence of acute stroke. There is no vascular hyperdensity of the M1 segments or basilar artery. Periventricular white matter disease is noted. 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 Mild atrophy. Ventricles are of normal size and morphology. There is no mass effect or midline shift. ANGIOGRAPHIC FINDINGS: The visualized aortic arch appears normal with normal configuration of the great vessels. There is no significant stenosis of the origins of the great vessels. Left anterior circulation: L CCA: no occlusion or significant stenosis L carotid bifurcation: Mild calcified atherosclerotic disease. No occlusion or significant stenosis L ICA proximal: no occlusion or significant stenosis L ICA distal: no occlusion or significant stenosis L ICA terminus: no occlusion or significant stenosis L M1: no occlusion or significant stenosis L M2 branches: Occlusion of the left M2 branch. L A2: no occlusion or significant stenosis Right anterior circulation: R CCA: no occlusion or significant stenosis R carotid bifurcation: Mild calcified atherosclerotic disease. no occlusion or significant stenosis R ICA proximal: no occlusion or significant stenosis R ICA distal: no occlusion or significant stenosis R ICA terminus: no occlusion or significant stenosis R M1: no occlusion or significant stenosis R M2 branches: no occlusion or significant stenosis R A2: no occlusion or significant stenosis Posterior circulation: L Vertebral Artery: no occlusion or significant stenosis R Vertebral Artery: no occlusion or significant stenosis Basilar Artery: no occlusion or significant stenosis L INTERNATIONAL PROJECT ENGINEER: origin of the left INTERNATIONAL PROJECT ENGINEER. Mild beading of the INTERNATIONAL PROJECT ENGINEER without evidence of occlusion. R INTERNATIONAL PROJECT ENGINEER: origin of the right INTERNATIONAL PROJECT ENGINEER. The junction of the right posterior to indicating artery and right P2 segment is somewhat bulbous/ectatic in appearance. There is no focality to suggest aneurysm. Mild beading without evidence of occlusion. No cerebral aneurysm is seen. There is no evidence for an arteriovenous malformation. There is no suspicious cervical lymphadenopathy. Multilevel degenerative disc and joint disease. No evidence of high-grade neural foraminal or canal stenosis Limited views of the lung apices shows a left pleural effusion with subtle line thickening, concerning for pulmonary edema. PERFUSION FINDINGS: Estimated ischemic core volume (rCBF < 0.3): 0 mL Estimated hypoperfusion volume (Tmax > 6 sec): 0 mL Subtle perfusion defect within the left MCA territory with greater than 4 seconds to Tmax within the left MCA territory measuring 14 mL. IMPRESSION: 1. Acute left proximal M2 occlusion with subtle 14 cc perfusion defect (Tmax >4 seconds) within the left MCA territory in the frontal lobe measuring 14 mL. 2. No evidence of acute stroke or intracranial hemorrhage on noncontrast head CT. Periventricular white matter disease likely represent sequela of chronic small vessel disease. The Critical results were discussed with Dr Verduzco by Dr. Elinor Alford on 07/16/2023 at 11:14 AM for noncontrast head CT 11:48 AM for CTA. Dictated by: Elinor Alford MD The radiology attending physician has personally reviewed this study, and had reviewed and/or edited this written report and agrees with it. Electronically signed by: Danna Ying M.D. Garth Vargas MD IMG CT PROCEDURES Fin al Result * POCT prothrombin time, whole blood (07/16/2023 11:08 AM AIRCONDITIONING ENGINEER) PT, POC 10.8 10.6 - 13.5 sec [facility] INR, bld, POC 0.9 0.8 - 1.2 [facility] Blood 07/16/2023 11:0 8 AM AIRCONDITIONING ENGINEER 07/16/2023 11:08 AM AIRCONDITIONING ENGINEER Notinfile Unknown LAB POCT ORDERABLES - DEVICE F inal Result [facility] Department [place] [address] * POCT prothrombin time, whole blood (07/16/2023 11:07 AM AIRCONDITIONING ENGINEER) PT, POC 10.6 10.6 - 13.5 sec [facility] [place] INR, bld, POC 0.9 0.8 - 1.2 [facility] [place] Blood 07/16/2023 11:0 7 AM AIRCONDITIONING ENGINEER 07/16/2023 11:07 AM AIRCONDITIONING ENGINEER Notinfile Unknown LAB POCT ORDERABLES - DEVICE F inal Result Performing Organization Address [facility] Co de Phone Number [facility] [place] [address] * POCT glucose (07/16/2023 11:06 AM AIRCONDITIONING ENGINEER) Glucose, POC 85 70 - 199 mg/dL [facility] [place] Blood 07/16/2023 11:0 6 AM AIRCONDITIONING ENGINEER 07/16/2023 11:06 AM AIRCONDITIONING ENGINEER Notinfile Unknown LAB POCT ORDERABLES - DEVICE F inal Result Performing Organization Address [facility] de Phone Number [facility] [place] [address] documented in this encounter Visit Diagnoses Diagnosis Cerebrovascular accident (CVA), unspecified mechanism (HCC)- Primary Cerebrovascular accident (CVA), unspecified mechanism (HCC) documented in this encounter Admitting Diagnoses Diagnosis Cerebrovascular accident (CVA), unspecified mechanism (HCC) documented in this encounter Administered Medications Inactive Administered Medications - up to 3 most recent administrations Medication Order MAR Action Action Date Dose Rate Site acetaminophen (TYLENOL) tablet 650 mg 650 mg, oral, Every 6 hours PRN, 1st line for pain, Starting on Thu07/17/23 at 0204 Given 07/17/2023 10:28 PM AIRCONDITIONING ENGINEER 650 mg Given 07/17/2023 2:27 AM AIRCONDITIONING ENGINEER 650 mg acyclovir (ZOVIRAX) capsule 200 mg 200 mg, oral, 2 times daily, First dose on Thu07/16/23 at 2100, For 268 days, Indications: Prophylaxis, MedicalIndications:Prophylaxis, Medical Given 07/18/2023 8:49 AM AIRCONDITIONING ENGINEER 200 mg Given 07/17/2023 8:08 PM AIRCONDITIONING ENGINEER 200 mg Given 07/17/2023 8:41 AM AIRCONDITIONING ENGINEER 200 mg aspirin enteric coated tablet 81 mg 81 mg, oral, Daily, First dose on Shabana 07/16/23 at 1830, Do not crush, chew, cut, dissolve, open or otherwise manipulate tablet/capsule., Indications: cerebral ischemiaIndications:cerebral ischemia Given 07/18/2023 8:50 AM AIRCONDITIONING ENGINEER 81 mg Given 07/17/2023 8:41 AM AIRCONDITIONING ENGINEER 81 mg Given 07/16/2023 6:42 PM AIRCONDITIONING ENGINEER 81 mg atorvastatin (LIPITOR) tablet 40 mg 40 mg, oral, Daily, First dose on Shabana 07/16/23 at 2045 Given 07/18/2023 8:49 AM AIRCONDITIONING ENGINEER 40 mg Given 07/17/2023 8:40 AM AIRCONDITIONING ENGINEER 40 mg Given 07/16/2023 10:20 PM AIRCONDITIONING ENGINEER 40 mg clopidogreL (PLAVIX) tablet 300 mg 300 mg, oral, Once, On Shabana 07/16/23 at 1830, For 1 dose, Indications: cerebral ischemiaIndications:cerebral ischemia Given 07/16/2023 10:20 PM AIRCONDITIONING ENGINEER 300 m g clopidogreL (PLAVIX) tablet 75 mg 75 mg, oral, Daily, First dose (after last modification) on Thu07/17/23 at 0900, For 21 doses Given 07/18/2023 8:49 AM AIRCONDITIONING ENGINEER 75 mg Given 07/17/2023 8:40 AM AIRCONDITIONING ENGINEER 75 mg enoxaparin (LOVENOX) syringe 40 mg 40 mg, subcutaneous, Daily (for enoxaparin), First dose on Shabana 07/16/23 at 2100, Indications: Deep Vein Thrombosis PreventionIndications:Deep Vein Thrombosis Prevention Given 07/17/2023 8:08 PM AIRCONDITIONING ENGINEER 40 mg Right Lower Abdomen Given 07/16/2023 10:20 PM AIRCONDITIONING ENGINEER 40 mg L eft Lower Abdomen furosemide (LASIX) tablet 20 mg 20 mg, oral, Daily, First dose on Thu07/17/23 at 0900 Given 07/18/2023 8:49 AM AIRCONDITIONING ENGINEER 20 mg Given 07/17/2023 11:14 PM AIRCONDITIONING ENGINEER 20 mg ioversoL (OPTIRAY 350) syringe 125 mL 125 mL, intravenous, Once in imaging, contrast, Starting on Shabana 07/16/23 at 1121, For 1 dose Contrast Given 07/16/2023 11:21 AM AIRCONDITIONING ENGINEER 120 mL levothyroxine (SYNTHROID) tablet 75 mcg 75 mcg, oral, Daily (early AM), First dose on Thu07/17/23 at 0600, Administer on an empty stomach, preferably 30 minutes before breakfast. Take 4 hours apart from antacids, iron and calcium products. Separate from tube feeds, if applicable. Given 07/18/2023 5:09 AM AIRCONDITIONING ENGINEER 75 mcg Given 07/17/2023 5:34 AM AIRCONDITIONING ENGINEER 75 mcg lisinopriL (PRINIVIL,ZESTRIL) tablet 10 mg 10 mg, oral, Daily, First dose on Thu07/17/23 at 0830 Given 07/17/2023 8:41 AM AIRCONDITIONING ENGINEER 10 mg lisinopriL (PRINIVIL,ZESTRIL) tablet 10 mg 10 mg, oral, Daily, First dose on 07/18/23 at 0930 Given 07/18/2023 9:02 AM AIRCONDITIONING ENGINEER 10 mg metoprolol tartrate (LOPRESSOR) immediate release tablet 75 mg 75 mg, oral, 2 times daily, First dose on 07/18/23 at 0930 Given 07/18/2023 9:02 AM AIRCONDITIONING ENGINEER 75 mg perflutren lipid (DEFINITY) 1.5 mL in sodium chloride 0.9% 10 mL syringe 1-10 mL, intravenous, Once in imaging, contrast, Starting on Thu07/17/23 at 1507, For 1 dose, Intra-Procedure (CV) predniSONE (DELTASONE) tablet 5 mg 5 mg, oral, Daily, First dose on Thu07/17/23 at 0900 Given 07/18/2023 8:49 AM AIRCONDITIONING ENGINEER 5 mg Given 07/17/2023 8:40 AM AIRCONDITIONING ENGINEER 5 mg tacrolimus immediate-release capsule 0.5 mg 0.5 mg, oral, Nightly, First dose on Thu07/16/23 at 2100, Avoid grapefruit juice Given 07/17/2023 8:07 PM AIRCONDITIONING ENGINEER 0.5 mg Given 07/17/2023 12:13 AM AIRCONDITIONING ENGINEER 0.5 mg tacrolimus immediate-release capsule 1 mg 1 mg, oral, Every morning, First dose on Thu07/17/23 at 0900, Avoid grapefruit juice Given 07/18/2023 8:48 AM AIRCONDITIONING ENGINEER 1 mg Given 07/17/2023 8:40 AM AIRCONDITIONING ENGINEER 1 mg documented in this encounter Discontinued Medications Medication Sig Discontinue Reason Start Date End Da te Eliquis 5 mg tablet Take 1 tablet (5 mg total) by mouth 2 (two) times a day 12/23/2022 07/16/2023 biotin 2,500 mcg capsule Take 1 capsule by mouth daily Error 07/16/2023 pravastatin (PRAVACHOL) 20 mg tablet Take 1 tablet (20 mg total) by mouth nightly Error 12/16/2016 07/16/2023 trimethoprim (TRIMPEX) 100 mg tablet Take 0.5 tablets (50 mg total) by mouth nightly Error 07/03/2021 07/16/2023 levothyroxine (SYNTHROID) 100 mcg tablet Take 1 tablet (100 mcg total) by mouth 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 levothyroxine (SYNTHROID) 75 mcg tablet Take 1 tablet (75 mcg total) by mouth cork floor installer before breakfast aspirin 81 mg enteric coated tablet Take 1 tablet (81 mg total) by mouth daily furosemide (LASIX) 20 mg tablet Take 1 tablet (20 mg total) by mouth daily added in this encounter Active and Recently Administered Medications Times are shown in AIRCONDITIONING ENGINEER. Scheduled Medication Order 07/16/2023 07/17/2023 07/18/2023 acyclovir (ZOVIRAX) capsule 200 mg 200 mg, oral, 2 times daily, First dose on Thu07/16/23 at 2100, For 268 days, Indications: Prophylaxis, Medical 222 (Given - Provider: Sheri Hilliard RN) 0841 (Given - Provider: Luisana London RN)2007 (Given - Provider: Sheri Hilliard RN) 0849 (Given - Provider: Joann Guzman RN) aspirin enteric coated tablet 81 mg 81 mg, oral, Daily, First dose on Shabana 07/16/23 at 1830, Do not crush, chew, cut, dissolve, open or otherwise manipulate tablet/capsule., Indications: cerebral ischemia 1841 (Given - Provider: Sixto Veras RN) 0841 (Given - Provider: Luisana London RN) 0850 (Given - Provider: Joann Guzman RN) atorvastatin (LIPITOR) tablet 40 mg 40 mg, oral, Daily, First dose on Shabana 07/16/23 at 2045 2220 (Given - Provider: Sheri Hilliard RN) 0840 (Given - Provider: Luisana London RN) 0849 (Given - Provider: Joann Guzman RN) clopidogreL (PLAVIX) tablet 300 mg (COMPLETED) 300 mg, oral, Once, On Shabana 07/16/23 at 1830, For 1 dose, Indications: cerebral ischemia 2220 (Given - Provider: Sheri Hilliard RN) clopidogreL (PLAVIX) tablet 75 mg 75 mg, oral, Daily, First dose (after last modification) on Thu07/17/23 at 0900, For 21 doses 0840 (Given - Provider: Luisana London RN) 0849 (Given - Provider: Joann Guzman RN) enoxaparin (LOVENOX) syringe 40 mg 40 mg, subcutaneous, Daily (for enoxaparin), First dose on Shabana 07/16/23 at 2100, Indications: Deep Vein Thrombosis Prevention 2220 (Given - Provider: Sheri Hilliard RN) 2007 (Given - Provider: Sheri Hilliard RN) furosemide (LASIX) tablet 20 mg 20 mg, oral, Daily, First dose on Thu07/17/23 at 0900 1130 (Not Given - Provider: Luisana London RN - Reason: Other - Comment: MEDICATION WASNT AVAILABLE)2314 (Given - Provider: Pranav Guerra RN) 0849 (Given - Provider: Joann Guzman RN) levothyroxine (SYNTHROID) tablet 75 mcg 75 mcg, oral, Daily (early AM), First dose on Thu07/17/23 at 0600, Administer on an empty stomach, preferably 30 minutes before breakfast. Take 4 hours apart from antacids, iron and calcium products. Separate from tube feeds, if applicable. 0534 (Given - Provider: Sheri Hilliard RN) 0509 (Given - Provider: Pranav Guerra, DEREK) lisinopriL (PRINIVIL,ZESTRIL) tablet 10 mg (CANCELED) 10 mg, oral, Daily, First dose on Thu07/17/23 at 0830 0841 (Given - Provider: Luisana London RN) lisinopriL (PRINIVIL,ZESTRIL) tablet 10 mg 10 mg, oral, Daily, First dose on Thu07/18/23 at 0930 0902 (Given - Provider: Joann Guzman RN) metoprolol tartrate (LOPRESSOR) immediate release tablet 75 mg 75 mg, oral, 2 times daily, First dose on 07/18/23 at 0930 0902 (Given - Provider: Joann Guzman, DEREK) predniSONE (DELTASONE) tablet 5 mg 5 mg, oral, Daily, First dose on Thu07/17/23 at 0900 0840 (Given - Provider: Luisana London RN) 0849 (Given - Provider: Joann Guzman RN) tacrolimus immediate-release capsule 0.5 mg 0.5 mg, oral, Nightly, First dose on Thu07/16/23 at 2100, Avoid grapefruit juice 0013 (Given - Provider: Sheri Hilliard RN)2007 (Given - Provider: Sheri Hilliard RN) tacrolimus immediate-release capsule 1 mg 1 mg, oral, Every morning, First dose on Thu07/17/23 at 0900, Avoid grapefruit juice 0840 (Given - Provider: Luisana London RN) 0848 (Given - Provider: Joann Guzman RN) PRN Medication Order 07/16/2023 07/17/2023 07/18/2023 acetaminophen (TYLENOL) tablet 650 mg 650 mg, oral, Every 6 hours PRN, 1st line for pain, Starting on Thu07/17/23 at 0204 0227 (Given - Provider: Sheri Hilliard RN)2228 (Given - Provider: Pranav Guerra, DEREK) ioversoL (OPTIRAY 350) syringe 125 mL (COMPLETED) 125 mL, intravenous, Once in imaging, contrast, Starting on Shabana 07/16/23 at 1121, For 1 dose 1121 (Contrast Given - Provider: Zi Velasquez RT) perflutren lipid (DEFINITY) 1.5 mL in sodium chloride 0.9% 10 mL syringe 1-10 mL, intravenous, Once in imaging, contrast, Starting on Thu07/17/23 at 1507, For 1 dose, Intra-Procedure (CV) documented in this encounter Orders Medications Ordered That Taras ht Not Have Been Administered Count Last Ordered Date First Ordered Date clopidogreL (PLAVIX) tablet 75 mg 1 024 perflutren lipid (DEFINITY) 1.5 mL in sodium chloride 0.9% 10 mL syringe 1 07/17/2023 Lab Orders Without Results Count Last Ordered D ate First Ordered Date POCT GLUCOSE DEVICE 1 07/16/2023 POCT PROTHROMBIN TIME, WHOLE BLOOD 1 2023 EKG Orders Without Results Count Last Ordered D ate First Ordered Date ECG 12-LEAD 1 07/16/2023 Nursing Count Last Ordered Date First Orde red Date APPLY EXTERNAL FEMALE CATHETER 1 07/17/2023 CARDIORESPIRATORY MONITOR 1 07/16/2023 DEPRESSION SCREENING 1 07/16/2023 NURSING COMMUNICATION 1 07/16/2023 NURSING SWALLOW ASSESSMENT 2 07/16/2023 TELEMETRY MONITORING 1 07/16/2023 WEIGH PATIENT 1 07/16/2023 Consult Count Last Ordered Date First Orde red Date IP CONSULT TO NUTRITION SERVICES 1 07/16/19 IP CONSULT TO RENAL TRANSPLANT 1 07/16/2023 IP CONSULT TO SPIRITUAL CARE 1 07/16/2023 COMBATANT DIVER OFFICER CONSULT 1 07/16/2023 IV Count Last Ordered Date First Orde red Date SALINE LOCK IV 2 07/16/2023 Admission Count Last Ordered Date First Orde red Date ADMIT TO INPATIENT 1 07/16/2023 Transfer Count Last Ordered Date First Orde red Date TRANSFER PATIENT TO NEW UNIT 1 07/17/2023 Discharge Count Last Ordered Date First Orde red Date DISCHARGE PATIENT 1 07/18/2023 CORE MEASURES Count Last Ordered Date First Ord ered Date REASON FOR NOT INITIATING IV THROMBOLYTIC 1 07/16/2023 documented in this encounter Care Teams Deli/Bakery Associate Relationship Specialty Start Date End Date Fadi Clemons DO [address] [address] PCP - General Family Medicine 11/03/22 Regina Contreras, RN [employer] Drawer 12/07/19 Charly Biggs MD [address] [address] Consulting Physician Internal Medicine 03/28/20 documented as of this encounter
--- OUTSIDE RECORDS SUMMARY | 2024-06-27 01:50 | XMS_ITS | Encounter Summary ---
Author Organization [facility] Address [address] [place] [address] Care Team Providers Care Aviation Project Manager Name Role Phone Fadi Clemons DO Primary Care Provider [phone] Reason for Visit * Auth/Cert (Routine) Specialty Diagnoses / Procedures Referred By Contac t Referred To Contact Procedures PROCEDURE NOT LISTED Referral ID Status Reason Start Date Expiration Date Visits Re quested Visits Authorized [id number] 1 1 Encounter Details Date Type Department Care Team (Latest Contact Info) Description 08/05/2022 7:00 AM SCIENTIFIC RESEARCH ASSOCIATE - 08/05/2022 2:35 PM SCIENTIFIC RESEARCH ASSOCIATE Hospital Encounter [facility] [address] [place] [address] [place] [id number] [address] Surgery General Discharge Disposition: Home or Self Care Social History Tobacco Use Types Packs/Day Years [...] Comments Blood Pressure 128/74 08/05/2022 2:00 PM SCIENTIFIC RESEARCH ASSOCIATE Pulse 94 08/05/2022 1:30 PM SCIENTIFIC RESEARCH ASSOCIATE Temperature 36.3 ??C (97.3 ??F) 08/05/2022 2:00 PM CS T Respiratory Rate 17 08/05/2022 12:15 PM SCIENTIFIC RESEARCH ASSOCIATE Oxygen Saturation 95% 08/05/2022 1:50 PM SCIENTIFIC RESEARCH ASSOCIATE Inhaled Oxygen Concentration - - Weight 56.7 kg (125 lb) 08/05/2022 8:55 AM SCIENTIFIC RESEARCH ASSOCIATE Height 158.8 cm (5' 2.5 ) 08/05/2022 8:55 AM SCIENTIFIC RESEARCH ASSOCIATE Body Mass Index 22.5 08/05/2022 8:55 AM SCIENTIFIC RESEARCH ASSOCIATE documented in this encounter Functional Status Functional Status Response Date of [...] person have difficulty concentrating/remembering/making decisions? No 08/05/2022 documented as of this encounter Medications at Time of Discharge Medication Sig Dispensed Refills Start Date End Date acyclovir (Zovirax) 200 MG capsule Take 1 (one) capsule by mouth 2 times daily 05/16/2022 aspirin EC (Ecotrin) 81 MG tablet Take 1 (one) tablet by mouth once biotin 2.5 MG capsule Take 1 (one) capsule by mouth once daily Cholecalciferol 50 MCG (2000 UT) Take 1 (one) tablet by mouth once daily 05/15/2022 cyanocobalamin 100 MCG tablet Take 1 (one) tablet by mouth once daily docusate sodium (Colace) 100 MG capsule Take 1 (one) capsule by mouth 2 times daily 30 capsule 08/05/2022 HYDROcodone-acetaminoph en (Jessup) 5-325 MG tabletIndications: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 Take 1 (one) tablet by mouth every 6 hours as needed for Pain 12 tablet 08/05/2022 levothyroxine (Synthroid) 100 MCG tablet Take 1 (one) tablet by mouth once daily 06/20/2021 lisinopril (Prinivil; Zestril) 10 MG tabletIndications:Hyper tension Take 1 (one) tablet by mouth once daily Reasons: High Blood Pressure Disorder metoprolol tartrate IR (Lopressor) 50 MG tabletIndications:Hyper tension Take 1.5 (one and one-half) tablets by mouth 2 times daily Reasons: High Blood Pressure Disorder predniSONE (Deltasone) 5 MG tablet Take 1 (one) tablet by mouth once daily 05/23/2022 trimethoprim (Trimpex) 100 MG tablet Take 0.5 (one-half) tablet by mouth at bedtime 07/03/2021 amoxicillin-clavulanate (Augmentin) 500-125 MG tablet Take 1 (one) tablet by mouth 2 times daily with morning and evening meal for 7 days 14 tablet 08/05/2022 08/12/2022 sodium bicarbonate 650 MG tablet Take 1 (one) tablet by mouth once daily 30 tablet 11 11/13/2021 11/13/2022 tacrolimus (Prograf) 1 MG capsule Take 1 (one) capsule by mouth 2 times daily 60 capsule 05/27/2022 05/27/2023 documented as of this encounter H&P Notes * Lety Rogers MD - 08/04/2022 9:31 PM CST History and Physical Patient's Primary Care Physician: No primary care provider on file. Name: Juliet Maki Age: [age] year old Sex: female Chief Complaint/History of Present Illness Pt is an 87-year-old lady with a large left upper lip defect from mohs surgery last week. She presents for repair Past Medical History: Diagnosis Date ??? Chronic kidney disease ??? Disorder of thyroid ??? Kidney transplant recipient 2012 Past Surgical History: Procedure Laterality Date ??? Kidney Transplant Bilateral 2012 No family history on file. Social History Occupational History ??? Not on file Tobacco Use ??? Smoking status: Never ??? Smokeless tobacco: Never Vaping Use ??? Vaping Use: Unknown Substance and Sexual Activity ??? Alcohol use: Never ??? Drug use: Never ??? Sexual activity: Not on file No medications prior to admission. No Known Allergies Review of Systems A comprehensive review of systems was negative except as described in HPI. Exam Vitals: 08/04/22 1654 Weight: 56.7 kg (125 lb) Height: 1.575 m (5' 2 ) General appearance: alert, cooperative, no distress Ears: canals clear, tympanic membranes normal, hearing intact to voice Nasal: midline septum, no masses, no bleeding, no pus Oral Cavity: Left upper lip defect Oropharynx: no abnormalities Neck: no masses, thyroid not enlarged, no adenopathy Heart: regular rhythm, normal S1 and S2, without murmurs, rubs or gallops Lungs: breath sounds normal and symmetric; no rales or wheezes Abdomen: soft without mass, non-tender, with normal bowel sounds Extremities: no clubbing, cyanosis or edema Data No results for input(s): WBC, HGB, HCT, PLTCOUNT in the last 68201 hours. No results for input(s): SODIUM, POTASSIUM, CHLORIDE, CO2, BUN, CREATININE, GLUCOSE, CALCIUM in thelast 63646 hours. Assessment and Plan Left upper left defect from Mohs resection -> To OR for wound bed preparation of left upper lip, possible wedge excision of lip, Adjacent tissue transfer of lip No further updates NTIFIC RESEARCH ASSOCIATE documented in this encounter OR Notes * Brief Op Note - Lety Rogers MD - 08/05/2022 12:09 PM CST Brief Op Note Procedure: ADJACENT TISSUE TRANSFER OR REARRANGEMENT LIP 10.1 SQ CM- 30.0 SQ CM, ADJACENT TISSUE TRANSFER TO REARRANGEMENT L IP 30.1 SQ CM- 60.0 SQ CM, WOUND BED PREPARATION EXCISION OF LIP, FULL THICKNESS, RECONSTRUCTION WITH LOCAL FLAP Patient Name: Juliet Maki Date of Service: 08/05/2022 Pre-Op Diagnosis:Left upper lip defect Post-Op Diagnosis: same Surgeon(s) and Role: * Lety Rogers MD - Primary Anesthesia Type: general ETT Complications: none Findings: 2.5 x 3.5 cm left upper lip defect involving jose EBL: minimal blood loss Drains: * No LDAs found * Specimen(s): * No specimens in log * Implant(s): * No implants in log * Lety Rogers MD NTIFIC RESEARCH ASSOCIATE * Operative - Lety Rogers MD - 08/05/2022 9:55 AM CST [facility] OPERATIVE REPORT PATIENT NAME: JULIET MAKI MR#: [id number] ROOM #: [facility]: [id number] : 1935 ADMIT: 08/05/2022 SURGEON: Lety Rogers MD SURGERY DATE: 08/05/2022 SURGEON: Lety Rogers MD ANESTHESIA: General. PREOPERATIVE DIAGNOSIS: Massive left upper lip defect from Mohs resection of basal cell carcinoma. POSTOPERATIVE DIAGNOSIS: Massive left upper lip defect from Mohs resection of basal cell carcinoma. OPERATIVE PROCEDURES: 1. Wound bed preparation of left upper lip. 2. Adjacent tissue transfer from left medial cheek to left upper lip defect, total area of elevation 100 sq cm. INDICATIONS: Juliet Maki is an 87-year-old lady with a history of large cutaneous malignancy of the upper lip, for which she underwent Mohs resection. This resulted in a very large defect of the left upper lip measuring 4 cm x 3 cm. This involved the vermilion as well as some of the pink lip. She was recommended to undergo adjacent tissue transfer for closure of the defect. We discussed specific risks of bleeding, infection, need for additional surgery, scar asymmetry, lip asymmetry, lip eversion, lip elevation, wound dehiscence, flap necrosis, hematoma, and need for subsequent procedures if desired. She expressed her understanding and her desire to proceed. OPERATIVE PROCEDURE IN DETAIL: The patient was identified in the holding room, informed consent was obtained. She was brought to the operating room, placed on the operating table in a supine position. The anesthesia was induced and she was intubated. Bed was rotated to 180 degrees. The face was then prepped and draped in the normal sterile fashion. 1% lidocaine with epinephrine 1:100,000 was injected diffusely into the left medial cheek, right upper lip, and around the wound. I then began by preparing the wound bed. Specifically, over the prior 14 days, there was already scar contracture occurring with healing of the peripheral edge of the wound. I did need to create the recipient site by excising the open wound and eschar as well as some subcutaneous tissue. The total area that needed to be prepared was 12 sq cm with entire depth of the wound. The orbicularis musculature was noted to be intact underneath this. I then designed a crescentic advancement flap to recruit skin laxity from the medial cheek, the nasolabial region, as well as the cheek tissue just lateral to the ala. I then sharply incised over a length of 10 cm. I excised a crescent of skin adjacent to the left alar base. I then widely undermined under the medial laterally based cheek advancement flap. The total area of elevation including the crescentic advancement was 10 cm x 10 cm for total elevation of 100 sq cm. I then advanced the flap medially into the upper lip defect carefully trimming and thinning it so as to precisely fit the defect. There had been loss of some of the pink of the upper lip. I then performed a small mucosal advancement flap using labial mucosa. I elevated along the mucosal surface and orally and then advanced this flap upward toward the junction of the skin flap. Then, I meticulously closed the wound in layers. The deep layers were secured using 4-0 Vicryl suture in the subcutaneous tissue. Along the upper lip, the flap was closed using 5-0 Monocryl suture. Along the mucosal advancement flap and mucosal surface closed using 5-0 chromic suture. Finally, the skin was closed using a combination of 6-0 nylon and 5-0 fast-absorbing gut suture. The wounds were then cleansed, dressed with bacitracin ointment, Telfa, and tape. Patient was then returned to anesthesia, extubated without incident, brought to recovery room in stable condition. COMPLICATIONS: None. BLOOD LOSS: 15 mL. 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 Use 500 ml bag and micro drip tubing, Pre-op ceFAZolin (Ancef) 2,000 mg in 50 ml IVPB 2,000 mg (2 g), at 100 mL/hr, Intravenous, PRE-OP MULTIPLE, Starting on Thu08/05/22 at 0731, Until Thu08/05/22 at 1535, Administer 30 minutes prior to surgical incision., Indication for anti-infective therapy: Surgical prophylaxis, Pre-op $ Given 08/05/2022 9:28 AM SCIENTIFIC RESEARCH ASSOCIATE 2 g fentaNYL (PF) (Sublimaze) injection 25 mcg 25 mcg, Intravenous, EVERY 10 MIN PRN, Mild Pain, 4 doses, Starting on Thu08/05/22 at 1206, Until Thu08/05/22 at 1535, Maximum total of 4 doses. If patient reaches max total dose, please consult anesthesiologist prior to further administration of pain meds. Hold pain meds if there are signs of hypoventilation. Patient preference for lesser PRN pain meds may be honored when the patient requests a less strong medication, a lower dose, or a less intrusive route of administration when the lesser drug, dose and route have been ordered for the patient. This patient request must be documented in the MAR., PACU fentaNYL (PF) (Sublimaze) injection 37.5 mcg 37.5 mcg, Intravenous, EVERY 10 MIN PRN, Moderate Pain, 4 doses, Starting on Thu08/05/22 at 1206, Until Thu08/05/22 at 1535, Maximum total of 4 doses. If patient reaches max total dose, please consult anesthesiologist prior to further administration of pain meds. Hold pain meds if there are signs of hypoventilation. Patient preference for lesser PRN pain meds may be honored when the patient requests a less strong medication, a lower dose, or a less intrusive route of administration when the lesser drug, dose and route have been ordered for the patient. This patient request must be documented in the MAR., PACU HYDROcodone-acetaminophen (Jessup) 5-325 MG tablet 1 tablet 1 tablet, Oral, POST-OP ONCE, 1 dose, On Thu08/05/22 at 1300, Patient preference for lesser PRN pain meds may be honored when the patient requests a less strong medication, a lower dose, or a less intrusive route of administration when the lesser drug, dose and route have been ordered for the patient. This patient request must be documented in the MAR., PACU $ Given 08/05/2022 1:28 PM SCIENTIFIC RESEARCH ASSOCIATE 1 tablet lactated ringers infusion at 20 mL/hr, Intravenous, PRE-OP CONTINUOUS, Starting on Thu08/05/22 at 0845, Until Thu08/05/22 at 1535, Pre-op $ New Bag/Syringe 08/05/2022 9:21 AM SCIENTIFIC RESEARCH ASSOCIATE lidocaine (Xylocaine) 1 % injection 0.2 mL 0.2 mL, Infiltration, PRE-OP MULTIPLE, 3 doses, Starting on Thu08/05/22 at 0836, Until Thu08/05/22 at 1535, May be used (0.2 ml locally to anesthetize prior to insertion)., Pre-op naloxone (Narcan) injection 0.04 mg 0.04 mg, Intravenous, POST-OP MULTIPLE, Starting on Thu08/05/22 at 1206, Until Thu08/05/22 at 1535, If respirations are less than 8 per minute and O2 sat is less than 90%, bag/mask patient and notify anesthesia immediately. If directed to administer naloxone, dilute 0.4mg in 9mL normal saline for dilution of 0.04mg/mL. Administer 1mL over 30 seconds while observing the patient response and titrating to effect. If no response, continue IV naloxone at the same rate up to a total of 0.8 mg of diluted naloxone., PACU documented in this encounter Active and Recently Administered Medications Times are shown in SCIENTIFIC RESEARCH ASSOCIATE. Scheduled Medication Order 08/03/2022 08/04/2022 08/05/2022 ceFAZolin (Ancef) 2,000 mg in 50 ml IVPB 2,000 mg (2 g), at 100 mL/hr, Intravenous, PRE-OP MULTIPLE, Starting on Thu08/05/22 at 0731, Until Thu08/05/22 at 1535, Administer 30 minutes prior to surgical incision., Indication for anti-infective therapy: Surgical prophylaxis, Pre-op 0928 ($ Given - Prov ider: Nikia Kramer, IMAGING ASSISTANT-ORGANIZATION DEVELOPMENT CONSULTANT) HYDROcodone-acetaminophen (Jessup) 5-325 MG tablet 1 tablet (COMPLETED) 1 tablet, Oral, POST-OP ONCE, 1 dose, On Thu08/05/22 at 1300, Patient preference for lesser PRN pain meds may be honored when the patient requests a less strong medication, a lower dose, or a less intrusive route of administration when the lesser drug, dose and route have been ordered for the patient. This patient request must be documented in the MAR., PACU 1328 ($ Given - Prov ider: Gabby Brian RN) lidocaine (Xylocaine) 1 % injection 0.2 mL 0.2 mL, Infiltration, PRE-OP MULTIPLE, 3 doses, Starting on Thu08/05/22 at 0836, Until Thu08/05/22 at 1535, May be used (0.2 ml locally to anesthetize prior to insertion)., Pre-op naloxone (Narcan) injection 0.04 mg 0.04 mg, Intravenous, POST-OP MULTIPLE, Starting on Thu08/05/22 at 1206, Until Thu08/05/22 at 1535, If respirations are less than 8 per minute and O2 sat is less than 90%, bag/mask patient and notify anesthesia immediately. If directed to administer naloxone, dilute 0.4mg in 9mL normal saline for dilution of 0.04mg/mL. Administer 1mL over 30 seconds while observing the patient response and titrating to effect. If no response, continue IV naloxone at the same rate up to a total of 0.8 mg of diluted naloxone., PACU Continuous Medication Order 08/03/2022 08/04/2022 08/05/2022 0.9% NaCl infusion at 20 mL/hr, Intravenous, PRE-OP CONTINUOUS, Starting on Thu08/05/22 at 0845, Until Thu08/05/22 at 1535, For Dialysis or Chronic Renal Failure patients. Use 500 ml bag and micro drip tubing, Pre-op 0845 (Due) lactated ringers infusion at 20 mL/hr, Intravenous, PRE-OP CONTINUOUS, Starting on Thu08/05/22 at 0845, Until Thu08/05/22 at 1535, Pre-op 0921 ($ New Bag/Syri nge - Provider: THOMPSON Menezes)0936 (Stopped - Provider: THOMPSON Menezes) PRN Medication Order 08/03/2022 08/04/2022 08/05/2022 0.9% nacl irrigation solution (COMPLETED) CONTINUOUS PRN, Starting on Thu08/05/22 at 1023, Until Thu08/05/22 at 1023, Intra-op 1023 ($ New Bag/Syri nge - Provider: Lety Rogers MD) bupivacaine 0.5% - EPINEPHrine 1:200,000 (PF) injection PRN, Starting on Thu08/05/22 at 1139, Until Thu08/05/22 at 1440, Intra-op 1139 ($ Given - Prov ider: Lety Rogers MD) fentaNYL (PF) (Sublimaze) injection 25 mcg 25 mcg, Intravenous, EVERY 10 MIN PRN, Mild Pain, 4 doses, Starting on Thu08/05/22 at 1206, Until Thu08/05/22 at 1535, Maximum total of 4 doses. If patient reaches max total dose, please consult anesthesiologist prior to further administration of pain meds. Hold pain meds if there are signs of hypoventilation. Patient preference for lesser PRN pain meds may be honored when the patient requests a less strong medication, a lower dose, or a less intrusive route of administration when the lesser drug, dose and route have been ordered for the patient. This patient request must be documented in the MAR., PACU fentaNYL (PF) (Sublimaze) injection 37.5 mcg 37.5 mcg, Intravenous, EVERY 10 MIN PRN, Moderate Pain, 4 doses, Starting on Thu08/05/22 at 1206, Until Thu08/05/22 at 1535, Maximum total of 4 doses. If patient reaches max total dose, please consult anesthesiologist prior to further administration of pain meds. Hold pain meds if there are signs of hypoventilation. Patient preference for lesser PRN pain meds may be honored when the patient requests a less strong medication, a lower dose, or a less intrusive route of administration when the lesser drug, dose and route have been ordered for the patient. This patient request must be documented in the MAR., PACU lidocaine 1% (Xylocaine-MPF) - EPINEPHrine 1:100,000 injection (CANCELED) PRN, Starting on Thu08/05/22 at 0937, Until Thu08/05/22 at 1202, Intra-op 0937 ($ Given - Prov ider: Lety Rogers MD - Comment: Dr. Rogers mixed epinephrine (1mg/mL) with lidocaine 1% to a concentration of 1% lidocaine with epinephrine 1:100,000. She injected 10 mL of this mixture off the sterile field after a mini timeout.) lidocaine 1% (Xylocaine-MPF) - EPINEPHrine 1:100,000 injection PRN, Starting on Thu08/05/22 at 1138, Until Thu08/05/22 at 1440, Intra-op 1138 ($ Given - Prov ider: Lety Rogers MD) [id number] (Neosporin) topical ointment PRN, Starting on Thu08/05/22 at 1437, Until Thu08/05/22 at 1438, Intra-op 1158 ($ Given - Prov ider: Lety Rogers MD) documented in this encounter Care Teams Aviation Project Manager Relationship Specialty Start Date End Date Fadi Clemons DO [facility] [place] [id number] PCP - General Family Medicine 08/05/22 documented as of this encounter
--- OUTSIDE RECORDS SUMMARY | 2024-06-27 01:50 | XMS_ITS | Encounter Summary ---
Author Organization [facility] Address [address] [place] [address] Phone Care Team Providers Care Refrigerated Cargo Clerk Name Role Phone Regina Contreras RN Unavailable [phone] Charly Biggs MD Unavailable [phone] Fadi Clemons DO Primary Care Provider [phone] Encounter Details Date Type Department Care Team (Late st Contact Info) Description 05/21/2023 10:45 AM TOBACCO WEIGHER Office Visit [facility] [address] [facility] Advanced Medicine 5th [place] [address] [place] [address] Nixon Hawkins MD [address] [place] [address] Encounter for aftercare following kidney transplant; Dysuria-frequency syndrome Social History Tobacco Use Types Packs/Day Years [...] on file Legal Sex 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 TOBACCO WEIGHER Gender Identity Not on file Sexual Orientation Not on file documented as of this encounter Last Filed Vital Signs Vital Sign Reading Time Taken Comments Blood Pressure 146/76 05/21/2023 10:59 AM TOBACCO WEIGHER Pulse 66 05/21/2023 10:59 AM TOBACCO WEIGHER Temperature 36.4 ??C (97.6 ??F) 05/21/2023 1 0:59 AM TOBACCO WEIGHER Respiratory Rate - - Oxygen Saturation - - Inhaled Oxygen Concentration - - Weight 53.4 kg (117 lb 12.8 oz) 023 10:59 AM TOBACCO WEIGHER Height 157.5 cm (5' 2 ) 05/21/2023 10:5 9 AM TOBACCO WEIGHER Body Mass Index 21.55 05/21/2023 10:59 AM TOBACCO WEIGHER documented in this encounter Patient Instructions * Patient Instructions* Nixon Hawkins MD - 05/21/2023 10:45 AM TOBACCO WEIGHER No changes to your medications as of NOW. Please get labwork tomorrow morning but don't take your tacrolimus until AFTER your blood work. We will follow-up the results of your urine culture and advise accordingly. We will get back to you regarding the Shingles vaccine. We will see you again in 6 months. CCO WEIGHER CCO WEIGHER CCO WEIGHER documented in this encounter Progress Notes * Nixon Hawkins MD - 05/21/2023 10:45 AM CST POST KIDNEY TRANSPLANT NOTE HISTORY OF PRESENT ILLNESS: Ms. Dunlap is an 88 y.o. female with end-stage renal disease secondary [...] output. Stent removed 03/10/13. 3. 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 PHYSICAL EXAM Generally: no acute distress; [...] Psych: appropriate mood and affect. AV Fistula right upper extremity functional with positive bruit and thrill LABORATORY VALUES Chemistries Lab Results Component Value Date SODIUM 141 01/23/2023 SCRNA 137 07/05/2022 POTASSIUM 5.3 (H) 01/23/2023 SCRK 4.1 07/05/2022 CHLORIDE 108 01/23/2023 CL 104 03/21/2013 SCRCL 107 07/05/2022 CO2 24 01/23/2023 SCRCO2 27 07/05/2022 Anemia eval: Lab Results Component Value Date WBC 5.4 01/23/2023 SCRWBC 5.5 07/05/2022 HGB 12.4 01/23/2023 SCRHGB 12.7 07/05/2022 LABPLAT 144 (L) 01/23/2023 SCRPLT 150 07/05/2022 SCRLAA 0.66 (A) 07/05/2022 RETIC 0.091 02/20/2013 IRON 46 08/30/2013 TRANSFERSAT 20 08/30/2013 FERRITIN 700 (H) 02/09/2013 FOLATE 12.6 02/20/2013 Renal Function Lab Results Component Value Date BUNSER 26 (H) 01/23/2023 BUNSER 25 09/19/2022 BUNSER 26 (H) 05/15/2022 SCRBUN 21 (A) 07/05/2022 SCRBUN 29 (A) 05/22/2022 SCRBUN 23 (A) 04/28/2022 CREATININE 1.01 01/23/2023 CREATININE 0.95 09/19/2022 CREATININE 0.70 07/05/2022 GFRAA 48 (L) 03/21/2013 Renal osteo eval: Lab Results Component Value Date CALCIUM 10.4 (H) 01/23/2023 SCRCA 9.4 07/05/2022 PHOS 3.4 05/15/2022 25HYDROVITD 42 05/15/2022 ALBUMIN 3.4 (L) 09/19/2022 SCRALB 4.0 10/04/2022 Serologies: Lab Results Component Value Date HGBA1C 4.7 02/09/2013 LIGHTCHAIN 0.73 03/10/2013 HEPBSAG Negative 01/26/2013 HEPBSAB Positive (A) 01/26/2013 HEPBSAB 1047 01/26/2013 HEPBCAB Positive (A) 02/09/2013 HEPCAB Negative 02/09/2013 C3 110.0 02/21/2013 C4 23.3 02/21/2013 Lab Results Component Value Date TACRORDM 18.5 09/19/2022 TACRORDM 10.5 05/15/2022 SCRTACROTR 5.2 07/05/2022 SCRTACROTR 6.8 04/28/2022 SCRTACROTR 6.2 01/30/2022 TACROTR 6.3 03/28/2020 TACROTR 5.7 03/27/2020 TACROTR 6.7 03/26/2020 URINALYSIS: Lab Results Component Value Date PHURINE 6.0 10/23/2022 PROTURQL Trace 10/23/2022 GLUCOSEUR Negative 10/23/2022 BLOODUR Negative 10/23/2022 Spot Lab Results Component Value Date PROTUR Trace (A) 10/23/2022 PROTUR Negative 05/15/2022 PROTUR 3+ (A) 06/06/2021 PROTCREAT 0.2 04/27/2013 No results found for: OSMOUR , UREAUR , SODIUMURR , KUR , CLUR , CALCIUMUR Lipids: Lab Results Component Value Date CHOL 140 03/19/2020 SCRTCHOL 132 07/05/2022 HDL 70 03/19/2020 SCRHDL 55 07/05/2022 LDL 70 02/09/2013 SCRLDL 51 07/05/2022 TRIG 64 03/19/2020 SCRTRIG 109 07/05/2022 She had COVID in September LFTs: Lab Results Component Value Date SCRAST 27 10/04/2022 SCRALT 18 10/04/2022 SCRBILI 0.9 01/22/2021 Coags: Lab Results Component Value Date INR 1.1 01/01/2021 ASSESSMENT & PLAN: 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 - UA: positive for WBC's, positive for RBC's, and positive for protein on 05/21/23 thus requested be sent for UCx as well (order placed and MA's notified to send down sample) - Offered to place orders for blood work today but patient prefers to go tomorrow as already took her tac dose which is reasonable - Continue to follow labs Qmonthly - We discussed with the patient the importance of medication compliance to decrease the risk of rejection. High risk immunosuppression medication for organ transplantation, requiring regular intensive follow-up and monitoring: - FK level to be checked tomorrow (Target 3-5 ng/ml) - To take Tacrolimus [...] images showing a good response per report. 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/23 - Will check PTH & 25-vit-D with next set of labs - Continue Vitamin D3 2000 units daily for now but if Ca still high tomorrow will need to hold Hyperlipidemia - Last cholesterol panel reviewed from 07/05/22 - Due for another fasting lipid panel with next labs, along with screening A1c - Continue Pravastatin 20 mg daily H/o Shingles and Prophylaxis against opportunistic infections post-transplant - Depending on renal function on tomorrow's labs will contemplate another round of acyclovir 800 mgfive times a day for 10 days (instead of 7 days) given that she still has some residual evidence ofshingles and then subsequently continue acyclovir 200 mg BID preventatively pending shingrix vaccination - Previously referred to [facility] for recurrent UTIs, currently awaiting appt History of Basal Cell Ca: - Continue follow up with dermatology - Given her overall stability on current immunosuppressive regimen and lack of recurrent SCC, will defer transitioning to mTORi based therapy at this time Hypertension - BP controlled at home - To take Lisinopril 10 mg QD Healthcare Maintenance - Annual dermatology visits advised , advised to stay up to date with influenza vaccine (NON-live vaccine) , and advised to stay up to date with Covid vaccination series and booster Disposition: Return to Clinic in 6 months Activities related to this clinical encounter included review of internal and external records (outside of [facility]) in the form of clinic notes, laboratory data and imaging. As part of this visit, lab tests including CBC, CMP and therapeutic drug monitoring were ordered/recommended. I have communicated my recommendations from today's visit to the patient's PCP and housekeeping coordinator. CCO WEIGHER documented in this encounter Plan of Treatment Not on file documented as of this encounter Procedures Procedure Name Priority Date/Time Associated Diagnosis Comments POCT URINALYSIS DIPSTICK Routine 05/21/2023 11:32 AM TOBACCO WEIGHER Encounter for aftercare following kidney transplant documented in this encounter Results * (ABNORMAL) Urinalysis reflex to microscopic and culture Urine (05/21/2023 11:35 AM TOBACCO WEIGHER) Color, ur Yellow Yellow [facility] Clarity, ur Turbid(A) Clear [facility] Specific gravity, ur 1.013 1.003 - 1.030 [facility] pH, urine 6.0 [facility] Comment: Interpretive Data ? Urine pH is affected by diet, medications, systemic acid-base disturbances, and renal tubular function. ??pH may affect urinary stone formation. ??For example, urine pH below 6.0 may help reduce the tendency for calcium phosphate stones and pH greater than 6.0 may reduce the tendency for uric acid stone formation. Source: [facility] [employer] Current Interpretive Data was last revised on 2017 Protein, ur ql 1+(A) Negative [facility] Glucose, ur ql Negative Negative [facility] Ketones, ur Negative Negative [facility] Bilirubin, ur Negative Negative [facility] Blood, ur 1+(A) Negative [facility] Urobilinogen, ur <2.0 <2.0 mg/dL [facility] Nitrite, ur Negative Negative [facility] Leukocyte esterase, ur 3+(A) Negative [facility] UA reflex comment Reflex to microscopic UA will be performed. [facility] Urine 05/21/2023 11:3 5 AM TOBACCO WEIGHER 05/21/2023 2:30 PM TOBACCO WEIGHER us Nixon Hawkins MD LAB MICROBIOLOGY - GENERAL O RDERABLES Final Result [facility] Department [place] [address] * (ABNORMAL) POCT urinalysis dipstick (05/21/2023 11:32 AM TOBACCO WEIGHER) Glucose, ur, POC Negative Negative MG/DL [facility] NO LAB FOUND Bilirubin, ur, POC Negative Negative, Small, Moderate, Large [facility] NO [facility] FOUND Ketones, ur, POC Negative Negative [facility] NO LAB FOUND Specific [place], POC 1.015 1.003 - 1.030 [facility] NO LAB FOUND Blood, ur, POC Small(A) Negative [facility] N O LAB FOUND pH, ur, POC 5.5 5.0 - 8.0 [facility] NO L AB FOUND Protein, ur, POC Trace(A) Negative [facility] FOUND Urobilinogen, urine, POC 0.2 0.2 - 1.0 mg/dL [facility] NO [facility] FOUND Nitrite, ur, POC Negative Negative [facility] NO LAB FOUND Leukocytes, ur, POC Negative Negative [facility] NO LAB FOUND Lot Number [id number] [facility] NO LA B FOUND Urine 05/21/2023 11:3 2 AM TOBACCO WEIGHER Alma Trevizo AUTHORIZATION REP POINT OF CARE TEST ORDERAB LES Final Result [facility] NO [facility] FOUND documented in this encounter Visit Diagnoses Diagnosis 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
--- OUTSIDE RECORDS SUMMARY | 2024-06-27 01:50 | XMS_ITS | Encounter Summary ---
Author Organization [facility] Healthcare Address [address] [place] [address] Care Team Providers Care Cold Storage Superintendent Name Role Phone Regina Contreras RN Unavailable [phone] Charly Biggs MD Unavailable [phone] Fadi Clemons DO Primary Care Provider [phone] Encounter Details Date Type Department Care Team (Late st Contact Info) Description 05/25/2023 Orders Only [facility] Health Information Management [address] [place] [address] Scanning, Provider Social History Tobacco Use Types Packs/Day Years [...] on file Legal Sex 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 TAKE DOWN INSPECTOR Gender Identity Not on file Sexual Orientation Not on file documented as of this encounter Plan of Treatment Not on file documented as of this encounter Procedures Procedure Name Priority Date/Time Associated Diagnosis Comments SCAN - LABS 05/25/2023 2:07 AM TAKE DOWN INSPECTOR documented in this encounter Results * SCAN - LABS (05/25/2023 2:07 AM TAKE DOWN INSPECTOR) us Provider Scanning Final Result documented in this encounter Visit Diagnoses Not on filedocumented in this encounter Care Teams Cold Storage Superintendent Relationship Specialty Start Date End Date Fadi Clemons DO [address] [address] PCP - General Family Medicine 11/03/22 Regina Contreras, RN Major Assembly Lineman 12/07/19 Charly Biggs MD [address] [address] Consulting Physician Internal Medicine 03/28/20 documented as of this encounter
--- OUTSIDE RECORDS SUMMARY | 2024-06-27 01:50 | XMS_ITS | Encounter Summary ---
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 Gender Identity Not on file Sexual Orientation Not on file documented as of this encounter Plan of Treatment Not on file documented as of this encounter Procedures Procedure Name Priority Date/Time Associated Diagnosis Comments SCAN - LABS 05/22/2023 2:52 PM TIMBER TREATMENT PLANT OPERATOR SCAN - LABS 05/22/2023 11:21 AM TIMBER TREATMENT PLANT OPERATOR documented in this encounter Results * SCAN - LABS (05/22/2023 2:52 PM TIMBER TREATMENT PLANT OPERATOR) us Provider Scanning Final Result * SCAN - LABS (05/22/2023 11:21 AM TIMBER TREATMENT PLANT OPERATOR) us Provider Scanning Final Result documented in this encounter Visit Diagnoses Not on filedocumented in this encounter Care Teams Hot Wort Settler Relationship Specialty Start Date End Date Fadi Clemons DO [address] [address] PCP - General Family Medicine 11/03/22 Regina Contreras, RN Food Court Team Member 12/07/19 Charly Biggs MD [address] [address] Consulting Physician Internal Medicine 03/28/20 documented as of this encounter
--- OUTSIDE RECORDS SUMMARY | 2024-06-27 01:50 | XMS_ITS | Encounter Summary ---
Author Organization [facility] Address [address] [place] [address] Phone Care Team Providers Care Regional Airline Pilot Name Role Phone Regina Contreras RN Unavailable [phone] Charly Biggs MD Unavailable [phone] Fadi Clemons DO Primary Care Provider [phone] Encounter Details Date Type Department Care Team (Late st Contact Info) Description 11/19/2023 10:45 AM CDT Office Visit [facility] Nephrology [address] [address] 5th [place] [address] [place] [address] Kirstin Mcqueen MD [address] [place] [address] Kidney transplanted (Primary Dx); Encounter for aftercare following kidney transplant; Encounter for long-term (current) use of high-risk medication Social History Tobacco Use Types Packs/Day Years [...] on file 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 Gender Identity Not on file Sexual Orientation Not on file documented as of this encounter Last Filed Vital Signs Vital Sign Reading Time Taken Comments Blood Pressure 169/87 11/19/2023 10:46 AM CDT Pulse 71 11/19/2023 10:46 AM CDT Temperature 36.3 ??C (97.3 ??F) 11/19/2023 10:46 AM C DT Respiratory Rate - - Oxygen Saturation - - Inhaled Oxygen Concentration - - Weight 56 kg (123 lb 6.4 oz) 11/19/2023 10:46 AM CDT Height 157.5 cm (5' 2 ) 11/19/2023 10:46 AM CDT Body Mass Index 22.57 11/19/2023 10:46 AM CDT documented in this encounter Patient Instructions * Patient Instructions* Kirstin Mcqueen MD - 11/19/2023 10:45 AM CDT Have your labs checked Your can ask your primary care about Shingrix See your dispatcher refinery for skin cancer screening, Shingles documented in this encounter Progress Notes * Kirstin Mcqueen MD - 11/19/2023 10:45 AM CDT POST KIDNEY TRANSPLANT NOTE HISTORY OF PRESENT [...] of packed red blood cells on A 2012. She was discharged on February 25, 2013 with a creatinine of 1.29. At that time, she had good urine output. Stent removed 03/10/13. 3. Readmission to [facility] on March 08, 2013 for orthostatic hypertension [...] 17. CVA July 2023. Ischemic stroke M2 CURRENT VISIT/REVIEW OF SYSTEMS: Since our last clinic visit, Juliet Dunlap was admitted for CVA in July 2023,. Fortunately, she has no residual deficits. Today she denies SOB, chest pain, nausea, [...] 1 tablet (75 mcg total) by mouth broacher beforebreakfast, Disp: , Rfl: lisinopriL (PRINIVIL,ZESTRIL) 10 [...] Disp: 30 capsule, Rfl: 11 Vitals BP 169/87 Pulse 71 Temp 36.3 ??C (97.3 ??F) Ht 157.5 cm (5' 2 ) Wt 56 kg (123 lb 6.4 oz) BMI 22.57 kg/m?? PHYSICAL EXAM Generally: no acute distress; [...] Chemistries Lab Results Component Value Date SODIUM 135 07/17/2023 SCRNA 139 05/22/2023 POTASSIUM See Comment 07/17/2023 SCRK 4.8 05/22/2023 CHLORIDE 104 07/17/2023 CL 104 03/21/2013 SCRCL 105 05/22/2023 CO2 23 07/17/2023 SCRCO2 24 05/22/2023 Anemia eval: Lab Results Component Value Date WBC 5.9 07/17/2023 SCRWBC 6.0 05/22/2023 HGB 12.8 07/17/2023 SCRHGB 11.8 (A) 05/22/2023 LABPLAT 129 (L) 07/17/2023 SCRPLT 142 (A) 05/22/2023 SCRLAA 0.58 (A) 05/22/2023 RETIC 0.091 02/20/2013 IRON 46 08/30/2013 TRANSFERSAT 20 08/30/2013 FERRITIN 700 (H) 02/09/2013 FOLATE 12.6 02/20/2013 Renal Function Lab Results Component Value Date BUNSER 21 07/17/2023 BUNSER 23 07/16/2023 BUNSER 28 (H) 07/16/2023 SCRBUN 47 (A) 05/22/2023 SCRBUN 21 (A) 07/05/2022 SCRBUN 29 (A) 05/22/2022 CREATININE 0.85 07/17/2023 CREATININE 0.84 07/16/2023 CREATININE 0.94 07/16/2023 GFRAA 48 (L) 03/21/2013 Renal osteo eval: Lab Results Component Value Date CALCIUM 9.6 07/17/2023 SCRCA 10.1 05/22/2023 PHOS 3.4 05/15/2022 25HYDROVITD [...] SCRTACROTR 5.2 07/05/2022 SCRTACROTR 6.8 04/28/2022 TACROTR 6.5 07/18/2023 TACROTR 6.3 03/28/2020 TACROTR 5.7 03/27/2020 URINALYSIS: Lab Results Component Value Date PHURINE 6.0 05/21/2023 PROTURQL 1+ (A) 05/21/2023 GLUCOSEUR Negative 11/19/2023 BLOODUR 1+ (A) 05/21/2023 Spot Lab Results Component Value Date PROTUR [...] 05/22/2023 TRIG 99 07/16/2023 SCRTRIG 96 05/22/2023 She had COVID in September LFTs: Lab Results Component Value Date SCRAST 25 05/22/2023 SCRALT 17 05/22/2023 SCRBILI 0.9 01/22/2021 Coags: Lab Results Component Value Date INR 0.9 07/16/2023 ASSESSMENT & PLAN: 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 Last labs were in July 2023 - At this time there does not appear to be recurrence of disease in the kidney transplant. - Continue to follow labs Qmonthly - We discussed with the patient the importance of medication compliance to decrease the risk of rejection. High risk immunosuppression medication for organ transplantation, requiring regular intensive follow-up and monitoring: Last FKL 6.5 on 07/18/23 -Needs updated labs. (Target 3-5 ng/ml) - [...] showing a good response per report. CKD-MBD Lab Results Component Value Date CALCIUM 9.6 07/17/2023 PHOS 3.4 05/15/2022 ALBUMIN 4.0 07/16/2023 MAGNESIUM 1.7 05/15/2022 Hyperlipidemia Lab Results Component Value Date LDL 70 02/09/2013 HDL 60 07/16/2023 TRIG 99 07/16/2023 CHOL 146 07/16/2023 - Continue Pravastatin 20 mg daily H/o Shingles and Prophylaxis against opportunistic infections post-transplant - Continue acyclovir prophylaxis -recommended dermatology follow up History of Basal Cell Ca: - Continue follow up with dermatology - Given her overall stability on current immunosuppressive regimen and lack of recurrent SCC, will defer transitioning to mTORi based therapy at this time Hypertension BP Readings from Last 1 Encounters: 11/19/23 169/87 - BP controlled at home - To [...] of internal and external records (outside of [facility]) in the form of clinic notes, laboratory data and imaging. As part of this visit, lab tests including CBC, CMP and therapeutic drug monitoring were ordered/recommended. I have communicated my recommendations from today's visit to the patient's PCP and marketing communications coordinator. documented in this encounter Miscellaneous Notes * Addendum Note - Ana Sands CLT - 11/19/2023 10:45 AM CDTAddended by: ANA SANDS on: 12/18/2023 01:36 PM Modules accepted: Orders documented in this encounter Plan of Treatment Not on file documented as of this encounter Procedures Procedure Name Priority Date/Time Associated Diagnosis Comments POCT URINALYSIS DIPSTICK Routine 11/19/2023 11:24 AM CDT Encounter for aftercare following kidney transplant documented in this encounter Results * (ABNORMAL) CBC with auto differential (12/18/2023 8:15 PM CDT) WBC 6.3 3.8 - 9.9 K/cumm Hgb 12.9 11.9 - 15.5 g/dL CERNER Hct 40.8 35.6 - 45.5 % CERNER Plt 140(L) 150 - 400 K/cumm CERNER MPV 11.5 9.1 - 12.3 fL CERNER RBC 3.88(L) 3.90 - 5.20 M/cumm CERNER MCV 105.2(H) 81.3 - 96.4 fL CERNER MCH 33.2 27.1 - 33.3 pg CERNER MCHC 31.6(L) 32.3 - 35.7 g/dL CERNER CH RDW CV 12.9 11.1 - 14.9 % CERNER CH RDW SD 49.5(H) 35.7 - 48.1 fL CERNER NRBC abs 0.00 0.00 - 0.01 K/cumm CERNER CH Blood 12/18/2023 8:15 PM CDT 12/18/2023 8:15 PM CDT us Kirstin Mcqueen MD LAB BLOOD ORDERABLE S Final Result [facility] [address] Department [place] [address] * (ABNORMAL) Basic metabolic panel (12/18/2023 8:15 PM CDT) Sodium 141 135 - 145 mmol/L Potassium, pl 5.3(H) 3.3 - 4.9 mmol/L C[facility]ER CH Chloride 103 97 - 110 mmol/L [facility] CH CO2 29 22 - 32 mmol/L [facility] CH Anion gap 9 2 - 15 mmol/L C[facility] CH BUN 35(H) 6 - 25 mg/dL [facility] CH Creatinine 0.95 0.60 - 1.10 mg/dL [facility] CH Glucose 99 70 - 199 mg/dL CERNER CH Comment: Interpretive Data Fasting glucose >/= 126 [...] 2022. Calcium 10.3 8.5 - 10.3 mg/dL [facility] Blood 12/18/2023 8:15 PM CDT 12/18/2023 8:15 PM CDT us Kirstin Mcqueen MD LAB BLOOD ORDERABLE S Final Result [facility] [address] Department [place] [address] * (ABNORMAL) Urinalysis reflex to microscopic (12/18/2023 [...] tendency for uric acid stone formation. Source: [facility] Current Interpretive Data was last revised on [...] to microscopic UA will be performed. CERNER Urine 12/18/2023 7:55 PM CDT 12/18/2023 8:40 PM CDT Kirstin Mcqueen MD LAB URINE ORDERABLE S Final Result [facility] [address] Department [place] [address] * Tacrolimus level trough (12/18/2023 7:54 PM CDT) Tacrolimus trough 4.4 ng/mL Comment: Interpretive Data Testing performed by liquid chromatography-tandem mass spectrometry. ??Therapeutic concentrations vary depending on type of transplanted organ and time elapsed since transplant. ??Typical trough concentrations range from 5-15 ng/mL. ??This test was developed and its performance characteristics determined by the [facility] consistent with CLIA requirements. ??This test has not been cleared or approved by the [place] Food and Drug administration. ??Current interpretive data last reviewed 2019. Testing performed by: [facility], [address] [place]., [address] Blood 12/18/2023 7:54 PM CDT 12/18/2023 9:54 PM CDT Kirstin Mcqueen MD LAB BLOOD ORDERABLE S Final Result [facility] [address] Department [place] [address] * (ABNORMAL) POCT urinalysis dipstick (11/19/2023 11:24 AM CDT) Glucose, ur, POC Negative Negative MG/DL Bilirubin, ur, POC Negative Negative, Small, Moderate, Large Ketones, ur, POC Negative Negative Specific [place], POC 1.025 1.003 - 1.030 Blood, ur, POC Small(A) Negative pH, ur, POC 6.0 5.0 - 8.0 Protein, ur, POC Negative Negative Urobilinogen, urine, POC 1.0 0.2 - 1.0 mg/dL Nitrite, ur, POC Negative Negative Leukocytes, ur, POC Small(A) Negative Lot Number [id number] Urine 11/19/2023 11:2 4 AM CDT Result [facility] Alma Trevizo NAIL SETTER POINT OF CARE TEST ORDERAB LES Final Result documented in this encounter Visit Diagnoses Diagnosis Kidney transplanted- Primary Kidney replaced by transplant Encounter for aftercare following kidney transplant Encounter for long-term (current) use of high-risk medication Encounter for long-term (current) use of other medications documented in this encounter Care Teams Regional Airline Pilot Relationship Specialty Start Date End Date Fadi Clemons DO [address] [address] PCP - General Family Medicine 11/03/22 Regina Contreras, DEREK Monomer Recovery Supervisor 12/07/19 [place] [address] [place] [address] Consulting Physician Internal Medicine 03/28/20 documented as of this encounter
--- OUTSIDE RECORDS SUMMARY | 2024-06-27 01:50 | XMS_ITS | Clinical Summary ---
Author Organization [facility] Address [address] [place] [address] Care Team Providers Care De Icer Element Winder Name Role Phone Regina Contreras RN Unavailable [phone] Charly Biggs MD Unavailable [phone] Fadi Clemons DO Primary Care Provider [phone] Allergies Active Allergy Reactions Criticality Noted Date [...] total) by mouth daily 30 tablet 11 2 Active tacrolimus 1 mg immediate-relea se capsuleIndicati ons:Kidney replaced by transplant Take 1 capsule (1 mg total) by mouth every morning 30 capsule 11 3 Active tacrolimus 0.5 mg immediate-relea se capsuleIndicati ons:Kidney replaced by transplant Take 1 capsule (0.5 mg total) by mouth nightly 30 capsule 11 3 Active predniSONE (DELTASONE) 5 mg tabletIndicatio ns:Kidney replaced by transplant TAKE 1 TABLET(5 MG) BY MOUTH DAILY 30 tablet 11 4 Active furosemide (LASIX) 20 mg tablet Take 1 tablet (20 mg total) by mouth daily Active aspirin 81 mg enteric coated tablet Take 1 tablet (81 mg total) by mouth daily Active levothyroxine (SYNTHROID) 75 mcg tablet Take 1 tablet (75 mcg total) by mouth physical therapy resident before breakfast Active atorvastatin (LIPITOR) 40 mg tablet Take 1 tablet (40 mg total) by mouth daily 30 tablet 11 4 08/19/19 25 Active metoprolol tartrate (LOPRESSOR) 75 mg tablet immediate release tablet TAKE 1 TABLET(75 MG) BY MOUTH TWICE DAILY 180 tablet 3 4 Active sodium bicarbonate 650 mg tablet Take 1 tablet (650 mg total) by mouth daily 30 tablet 11 4 02/04/20 25 Active acyclovir (ZOVIRAX) 200 mg capsule Take 1 capsule (200 mg total) by mouth 2 (two) times a day 60 capsule 11 4 05/06/20 25 Active lisinopriL (PRINIVIL,ZESTR IL) 10 mg [...] t be different from the original. 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 Start maxitrol [...] Assessment & Plan (11/03/2022 1:15 PM CDT): Audie. Observe. History of kidney transplant 05/17/2013 Overview (10/10/2016): Kidney transplanted Encounters Date Type Department Care Team Description 05/27/2024 Orders Only [facility] Transplant Kidney [address] [facility] [address] [phone] [place] [address] Galina Sanchez Kidney replaced by transplant (Primary Dx); Immunosuppressive management encounter following kidney transplant; Hyperlipidemia, unspecified hyperlipidemia type 05/26/2024 Telephone [facility] Transplant Kidney [address] [phone] [place] [address] Regina Contreras RN 05/25/2024 10:45 AM FARM MECHANIC Office Visit [facility] Nephrology [address] [place] [address] [place] [id number] Layla Malloy MD Encounter for aftercare following kidney transplant (Primary Dx); Encounter for long-term (current) use of high-risk medication; Skin lesion of left lower extremity; Primary hypertension from Last 3 Months Immunizations Name Administration Dates Next Due Influenza, Quadrivalent, Charmaine l Culture-based MDCK, Preservative Free, Antibiotic Free, Intramuscular 05/15/2022 [employer] (J&J) SARS-CoV-2 Vaccination 09/07/2020 [email or web address] SARS-CoV-2 Monovalent Vaccination (12+ Yrs) PURPLE 07/01/2021 Surgical History Surgery Date Site/Laterality Comments CENTRAL LINE PLACEMENT > 5 YEARS 02/16/2013 N/A KIDNEY TRANSPLANT 02/03/2013 - 03/05/2013 TONSILLECTOMY 07/06/1943 - 07/05/1944 VEIN LIGATION AND STRIPPING 07/06/1992 - 07/05/1993 PARATHYROIDECTOMY 07/06/1994 - 07/05/1995 AV FISTULA PLACEMENT Left with declotting CYSTOSCOPY 08/06/2013 - 09/02/2013 with placement of TVT-O midurethral ring CARDIAC CATHETERIZATION 10/04/2008 - 11/02/2008 HERNIA REPAIR 09/03/2008 - 10/03/2008 with Schatzki's ring RHINOPLASTY CATARACT EXTRACTION 05/05/2018 Left CATARACT EXTRACTION W/ INTRAOCULAR LENS IMPLANT Right STRABISMUS SURGERY Medical History Medical History Date Comments Fatigue Frequent urination Bruising Abdominal pain Renal failure received 1 episo de chemo to try to save Kidney in 2008 Peritoneal dialysis status (HCC) From 2009 to 2012 prior to transplant Migraines Shingles 2008 Postoperative delirium 02/2013 hallucina tions s/p kidney transplant, saw flashes of color and puffs of smoke GERD (gastroesophageal reflu x disease) Hypothyroidism Hiatal hernia schatzki ring Hypertension Hyperlipidemia CAD (coronary artery disease) HL (hearing loss) CAD (coronary artery disease) 03/21/2020 Gout Heart murmur Drusen of optic disc, bilateral Chronic UTI 03/21/2020 Stroke (HCC) Family History Medical History Relation Name Comments Heart disease Father Pancreatic cancer Mother Cancer Other 1 Family history of Cancer; Kidney disease Other 2 Family histor y of Renal disease; Stroke Other 3 Family history of Stroke; Relation Name Status Comments Father (Age 63) Mother (Age 67) Other 1 Other 2 Other 3 Social History Tobacco Use Types Packs/Day Years [...] on file 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 Gender Identity Not on file Sexual Orientation Not on file Obstetrics History Last Filed Vital Signs Vital Sign Reading Time Taken Comments Blood Pressure 148/83 05/25/2024 10:37 AM FARM MECHANIC Pulse 75 05/25/2024 10:37 AM FARM MECHANIC Temperature 36.4 ??C (97.6 ??F) 05/25/2024 10:[address] Respiratory Rate 16 07/18/2023 3:00 PM FARM MECHANIC Oxygen Saturation 95% 07/18/2023 2:00 PM FARM MECHANIC Inhaled Oxygen Concentration - - Weight 56.7 kg (125 lb) 05/25/2024 10:37 AM FARM MECHANIC Height 157.5 cm (5' 2 ) 05/25/2024 10:37 AM FARM MECHANIC Body Mass Index 22.86 05/25/2024 10:37 AM FARM MECHANIC Plan of Treatment Health Maintenance Due Date Last Done Comments DTaP/Tdap/Td Vaccine (1 - Tdap) 1946 Zoster Vaccine (1 of 2) 1954 Well Visit 65+ 2002 Pneumococcal vaccine 65+ (2 of 2 - PCV) 04/01/2011 04/01/2010 Covid-19 Vaccine (3 - 2023-2 5 season) 2024 07/01/2021, 09/07/2020 Depression Screening 07/16/2024 07/16/2023, 07/16/19 24 Fall Risk Assessment 07/18/2024 07/18/2023 Hepatitis B Screening Completed 08/23/2013 Influenza Vaccine Completed 04/14/2024, , 05/15/2022, Additional history exists Medical Devices Implanted Type Area Retail Administrative Assistant Device Identifier Shelf Expiration Date Model / Serial / Lot [employer] [id number].295 Acrysof Iq Natural Stableforce Acrysert 6mm 13mm 1 Piece Foldable - [id number] - [id number] Implanted:Qty: 1 on 05/05/2018 by Butch Maria MD at [facility] Lens Left: Eye [employer] [id number] 05/05/2020 [id number].295 / [id number] 1 / 0 [employer] [id number] .285 Acrysof Iq Natural Stableforce Acrysert 6mm 13mm 1 Piece Foldable - [id number] - [id number] Implanted:Qty: 1 on 04/11/2019 by Butch Maria MD at [facility] Right: Eye [employer] 01/02/2022 [id number] .285 / [id number] 1 / Procedures Procedure Name Priority Date/Time Associated Diagnosis Comments POCT URINALYSIS DIPSTICK Routine 05/25/2024 11:42 AM FARM MECHANIC Encounter for aftercare following kidney transplant CBC WITH AUTO DIFFERENTIAL Routine 04/26/2024 RENAL FUNCTION PANEL Routine 04/26/2024 HEPATIC FUNCTION PANEL Routine 04/26/2024 TSH Routine 04/26/2024 T4, FREE Routine 04/26/2024 TACROLIMUS LEVEL, TROUGH Routine 04/26/2024 from Last 3 Months Results * (ABNORMAL) POCT urinalysis dipstick (05/25/2024 11:42 AM FARM MECHANIC) Pathologist [facility] Glucose, ur, POC Negative Negative MG/DL Bilirubin, ur, POC Negative Negative, Small, Moderate, Large Ketones, ur, POC Negative Negative Specific [place], POC 1.020 1.003 - 1.030 Blood, ur, POC Small(A) Negative pH, ur, POC 6.0 5.0 - 8.0 Protein, ur, POC Negative Negative Urobilinogen, urine, POC 0.2 0.2 - 1.0 mg/dL Nitrite, ur, POC Negative Negative Leukocytes, ur, POC Small(A) Negative Lot Number [id number] Urine 05/25/2024 11:4 2 AM FARM MECHANIC Layla Mares MD POINT OF CARE YAA T ORDERABLES Final Result * Tacrolimus level trough (04/26/2024) Pathologist [facility] SCRIBED Tacrolimus, trough 5.4 5 - 20 mcg/L TXP NO LAB FOUND Blood 04/26/2024 Historical Provider LAB BLOOD ORDERABLES Paty l Result TXP NO LAB FOUND * (ABNORMAL) CBC with auto differential (04/26/2024) Pathologist [facility] SCRIBED WBC 6.8 4.5 - 10 k/cumm TXP NO LAB FOUND SCRIBED Hemoglobin 12.3 12 - 15 g/dL TXP NO LAB FOUND SCRIBED Hematocrit 39.7 37 - 47 % TXP NO LAB FOUND SCRIBED Platelets 123(A) 150 - 375 k/cumm TXP NO LAB FOUND SCRIBED Lymphocytes Abs 0.45(A) 0.9 - 3.2 k/cumm TXP NO LAB FOUND Blood 04/26/2024 Result [facility] Provider MD LAB BLOOD ORDERABLES Edit ed Result - Final Performing Organization Address [facility] de Phone Number TXP NO LAB FOUND * TSH (04/26/2024) Scribed TSH 3.78 0.47 - 4.68 mcU/mL TXP NO LAB FOUND Blood 04/26/2024 Result [facility] Provider MD LAB BLOOD ORDERABLES Paty l Result Performing Organization Address [facility] Phone Number TXP NO LAB FOUND * T4, free (04/26/2024) SCRIBED T4, Free 1.87 0.78 - 2.19 mcg/dL TXP NO LAB FOUND Blood 04/26/2024 Result [facility] Provider MD LAB BLOOD ORDERABLES Paty l Result Performing Organization Address [facility] de Phone Number TXP NO LAB FOUND [...] Units/L TXP NO LAB FOUND Blood 04/26/2024 Historical Provider LAB BLOOD ORDERABLES Paty l Result TXP NO LAB FOUND * (ABNORMAL) Renal [...] NO LAB FOUND SCRIBED eGFR in NonAfrican Maltese 59 N/A mL/min TXP NO LAB FOUND SCRIBED Urea Nitrogen (BUN) 30(A) 7 - 17 mg/dl TXP NO LAB FOUND Blood 04/26/2024 Historical Provider LAB BLOOD ORDERABLES Edit ed Result - Final TXP NO LAB FOUND from Last 3 Months Insurance MEDICARE [facility] [place] [address] [facility] [place] [address] [facility] Advance Directives For more information, please contact: [phone] Documents on File Type Date Recorded Patient Field Cane Scale Clerk Expl anation ADVANCE DIRECTIVE 08/27/2023 11:20 AM ALBERTINA R OF AGRICULTURAL EDUCATION PROFESSOR - MEDICAL * Full Code (Latest Code [...] 2:39 PM 03/20/2020 4:16 PM Care Teams De Icer Element Winder Relationship Specialty Start Date End Date Fadi Clemons DO [address] [address] PCP - General Family Medicine 11/03/22 Regina Contreras, DEREK Attendant [facility] 12/07/19 Charly Biggs MD [address] [address] Consulting Physician Internal Medicine 03/28/20
--- OUTSIDE RECORDS SUMMARY | 2024-06-27 01:50 | XMS_ITS | Encounter Summary ---
Author Organization [facility] Address [address] [place] [address] Care Team Providers Care Car Hiker Name Role Phone Fadi Clemons Primary Care Provider Reason for Visit * Auth/Cert (Routine) Specialty Diagnoses / Procedures Referred By Contac t Referred To Contact Procedures PROCEDURE NOT LISTED Referral ID Status Reason Start Date Expiration Date Visits Re quested Visits Authorized [id number] 1 1 Encounter Details Date Type Department Care Team (Late st Contact Info) Description 08/05/2022 9:00 AM CHANGE ATTENDANT - 08/05/2022 11:50 AM CHANGE ATTENDANT Surgery [facility] - [facility] Op [address] [place] [address] [place] [id number] [address] WOUND BED PREPARATION OF LEFT UPPER LIP, ADJACENT TISSUE TRANSFER OF LIP Surgery Details Date/Time Status Location OR Service Patient Class Case Class Case Type Trauma Case? 08/05/2022 9:00 AM Posted [facility] MAIN OR OR 07 ENT Surgery Day Care Work Ins >24 Hrs to 5 Days Panel 1 Procedure LRB Anes Op Region Wound Class Comments WOUND BED PREPARATION OF LEF T UPPER LIP, ADJACENT TISSUE TRANSFER OF LIP Left General Mouth Clean Contaminated Surgeon Surgeon Role Service Panel Lety Rogers MD Primary ENT 1 Special Needs 120 MINS documented in this encounter Social History Tobacco [...] Sign Reading Time Taken Comments Blood Pressure 162/77 08/05/2022 8:55 AM CHANGE ATTENDANT Pulse 65 08/05/2022 8:55 AM CHANGE ATTENDANT Temperature 36.6 ??C (97.8 ??F) 08/05/2022 8:55 AM CS T Respiratory Rate 16 08/05/2022 8:55 AM CHANGE ATTENDANT Oxygen Saturation 99% 08/05/2022 8:55 AM CHANGE ATTENDANT Inhaled Oxygen Concentration - - Weight 56.7 kg (125 lb) 08/05/2022 8:55 AM CHANGE ATTENDANT Height 158.8 cm (5' 2.5 ) 08/05/2022 8:55 AM CHANGE ATTENDANT Body Mass Index 22.5 08/05/2022 8:55 AM CHANGE ATTENDANT documented in this encounter Functional Status Functional [...] times daily 30 capsule 08/05/2022 HYDROcodone-acetaminoph en (Glencoe) 5-325 MG tabletIndications:Basal cell carcinoma (BCC) of [...] No primary care provider on file. Name: Juilet Maki Age: [age] year old Sex: female [...] WBC, HGB, HCT, PLTCOUNT in the last 07473 hours. No results for input(s): SODIUM, POTASSIUM, CHLORIDE, CO2, BUN, CREATININE, GLUCOSE, CALCIUM in thelast 53415 hours. Assessment and Plan Left upper left defect from Mohs resection -> To OR for wound bed preparation of left upper lip, possible wedge excision of lip, Adjacent tissue transfer of lip No further updates GE ATTENDANT documented in this encounter OR Notes * [...] implants in log * Lety Rogers MD GE ATTENDANT * Operative - Lety Rogers MD - 08/05/2022 9:55 AM CST [facility] OPERATIVE REPORT PATIENT NAME: JULIET MAKI MR#: [id number] ROOM #: [facility]: [id number] : 1935 ADMIT: 08/05/2022 SURGEON: Lety Rogers [...] condition. COMPLICATIONS: None. BLOOD LOSS: 15 mL. MD BEBE Ryan/YAIMA /[id number] OPERATIVE REPORT - GE ATTENDANT documented in this encounter Plan of Treatment Not on file documented as of this encounter Procedures Procedure Name Priority Date/Time Associated Diagnosis Comments FLAP TRANSFER ADJACENT TISSUE COMPLEX (ANY AREA) 08/05/2022 9:20 AM CHANGE ATTENDANT Special Needs 120 MINS documented in this encounter Visit Diagnoses Not [...] ml bag and micro drip tubing, Pre-op 0.9% nacl irrigation solution CONTINUOUS PRN, Starting on Thu08/05/22 at 1023, Until Thu08/05/22 at 1023, Intra-op $ New Bag/Syringe 08/05/2022 10:23 AM CHANGE ATTENDANT 500 mL Operative Site bupivacaine 0.5% - EPINEPHrine 1:200,000 (PF) injection PRN, Starting on Thu08/05/22 at 1139, Until Thu08/05/22 at 1440, Intra-op $ Given 08/05/2022 11:39 AM CHANGE ATTENDANT 4 mL Operative Site ceFAZolin (Ancef) 2,000 mg in 50 ml IVPB 2,000 mg (2 g), at 100 mL/hr, Intravenous, PRE-OP MULTIPLE, Starting on Thu08/05/22 at 0731, Until Thu08/05/22 at 1535, Administer 30 minutes prior to surgical incision., Indication for anti-infective therapy: Surgical prophylaxis, Pre-op $ Given 08/05/2022 9:28 AM CHANGE ATTENDANT 2 g fentaNYL (PF) (Sublimaze) injection 25 [...] be documented in the MAR., PACU HYDROcodone-acetaminophen (Glencoe) 5-325 MG tablet 1 tablet 1 tablet, [...] MAR., PACU $ Given 08/05/2022 1:28 PM CHANGE ATTENDANT 1 tablet lactated ringers infusion at 20 mL/hr, Intravenous, PRE-OP CONTINUOUS, Starting on Thu08/05/22 at 0845, Until Thu08/05/22 at 1535, Pre-op $ New Bag/Syringe 08/05/2022 9:21 AM CHANGE ATTENDANT lidocaine (Xylocaine) 1 % injection 0.2 mL 0.2 mL, Infiltration, PRE-OP MULTIPLE, 3 doses, Starting on Thu08/05/22 at 0836, Until Thu08/05/22 at 1535, May be used (0.2 ml locally to anesthetize prior to insertion)., Pre-op lidocaine 1% (Xylocaine-MPF) - EPINEPHrine 1:100,000 injection PRN, Starting on Thu08/05/22 at 0937, Until Thu08/05/22 at 1202, Intra-op $ Given 08/05/2022 9:37 AM CHANGE ATTENDANT 10 mL lidocaine 1% (Xylocaine-MPF) - EPINEPHrine 1:100,000 injection PRN, Starting on Thu08/05/22 at 1138, Until Thu08/05/22 at 1440, Intra-op $ Given 08/05/2022 11:38 AM CHANGE ATTENDANT 2 mL Operative Site naloxone (Narcan) injection 0.04 mg 0.04 mg, [...] of 0.8 mg of diluted naloxone., PACU frhohsoi-oaiqooitzp-mxmmif brennen (Neosporin) topical ointment PRN, Starting on Thu08/05/22 at 1437, Until Thu08/05/22 at 1438, Intra-op $ Given 08/05/2022 11:58 AM CHANGE ATTENDANT 1 Each Operative Site documented in this encounter Active and Recently Administered Medications Times are shown in CHANGE ATTENDANT. Scheduled Medication Order 08/03/2022 08/04/2022 08/05/2022 ceFAZolin (Ancef) 2,000 mg in 50 ml IVPB 2,000 mg (2 g), at 100 mL/hr, Intravenous, PRE-OP MULTIPLE, Starting on Thu08/05/22 at 0731, Until Thu08/05/22 at 1535, Administer 30 minutes prior to surgical incision., Indication for anti-infective therapy: Surgical prophylaxis, Pre-op 0928 ($ Given - Prov ider: Nikia Kramer, VOCATIONAL REHABILITATION TECHNICIAN-GENERAL EDUCATION PROFESSOR) HYDROcodone-acetaminophen (Glencoe) 5-325 MG tablet 1 tablet (COMPLETED) 1 [...] Given - Prov ider: Lety Rogers MD) fyaunytb-imgymzyjgl-zfkmehumq (Neosporin) topical ointment PRN, Starting on Thu08/05/22 at 1437, Until Thu08/05/22 at 1438, Intra-op 1158 ($ Given - Prov ider: Lety Rogers MD) documented in this encounter Care Teams Car Hiker Relationship Specialty Start Date End Date Fadi Clemons DO [address] [place] [phone] PCP - General Family Medicine 08/05/22 documented as of this encounter
--- OUTSIDE RECORDS SUMMARY | 2024-06-27 01:51 | XMS_ITS | Encounter Summary ---
Author Organization [facility] Address [address] [place] [address] Phone Care Team Providers Care Tractor Expert Name Role Phone Regina Contreras RN Unavailable [phone] Charly Biggs MD Unavailable [phone] Fadi Clemons DO Primary Care Provider [phone] Reason for Visit * Reason Comments possible eye infectiom Encounter Details Date Type Department Care Team (Late st Contact Info) Description 11/03/2022 9:30 AM CDT Office Visit [facility] Ophthalmology [address] 2nd [address] [place] [address] Paul Bradley, OD [address] [facility] [address] [place], [place] [id number] Preseptal cellulitis of left upper eyelid (Primary Dx); Drusen of both optic discs; Pseudophakia of both eyes Social History Tobacco Use Types Packs/Day Years Used Date Smoking Tobacco: Never Smokeless Tobacco: Never Alcohol Use Standard Drinks/Week Comments No 0 (1 standard drink = 0.6 oz pur e alcohol) Comments No Sex and Gender Information Value Date Recorded Sex Assigned at Not on file Legal Sex 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 OB NURSE Gender Identity Not on file Sexual Orientation Not on file documented as of this encounter Progress Notes * Paul Bradley, RIANNA - 11/03/2022 9:30 AM CDT Assessment/Plan Diagnoses and all orders for this visit: Preseptal cellulitis of left upper eyelid (Primary) Assessment & Plan: Pt presents with a painful swollen left [...] their note. Drusen of both optic discs Assessment & Plan: Stable exam and acuity OU. Observe. Pseudophakia of both eyes Assessment & Plan: Stable. Observe. documented in this encounter Miscellaneous Notes * Assessment & Plan Note - Paul Bradley, RIANNA - 11/03/2022 1:15 PM CDT Associated Problem(s): Drusen of both optic discs Stable exam and acuity OU. Observe. * Assessment & Plan Note - Paul Bradley, RIANNA - 11/03/2022 1:15 PM CDT Associated Problem(s): Pseudophakia of both eyes Stable. Observe. * Assessment & Plan Note - Paul Bradley OD - 11/03/2022 1:12 PM CDT Associated Problem(s): Preseptal cellulitis of left upper eyelid Pt presents with a painful swollen left [...] inpatient care as recommended in their note. 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 10/09/2022 10/17/2022 01/07/2023 3:05 AM C DT documented as of this encounter Eye Exam Visual Acuity (Snellen - Linear) Right eye Left eye Dist cc 20/25 -2 20/30 +2 Dist ph cc ni 20/25 -1 Correction: Glasses Tonometry (Applanation, 10:15 AM) Right eye Left eye Pressure [address] 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
--- OUTSIDE RECORDS SUMMARY | 2024-06-27 01:51 | XMS_ITS | Encounter Summary ---
Author Organization [facility] Address [address] [place] [address] Care Team Providers Care Emergency Room Physician Assistant Name Role Phone Regina Contreras RN Unavailable [phone] Charly Biggs MD Unavailable [phone] Fadi Clemons DO Primary Care Provider [phone] Encounter Details Date Type Department Care Team (Late st Contact Info) Description 11/12/2022 Orders Only [facility] Cardiology [address] [facility] [address] [place] [address] Jane Graff MD [address] [place] [address] Social History Tobacco Use Types Packs/Day Years Used Date Smoking Tobacco: Never Smokeless Tobacco: Never Alcohol Use Standard Drinks/Week Comments No 0 (1 standard drink = 0.6 oz pur e alcohol) Comments No Sex and Gender Information Value Date Recorded Sex Assigned at Not on file 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 Sex 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 Gender Identity Not on file Sexual Orientation Not on file documented as of this encounter Plan of Treatment Not on file documented as of this encounter Procedures Procedure Name Priority Date/Time Associated Diagnosis Comments CARDIOLOGY DOCUMENT SCAN Routine 11/12/2022 documented in this encounter Results * Cardiology Document Scan (11/12/2022) Anatomical Region Laterality Modality Other Jane Graff MD CV CARDIAC SERVICES PROCEDU RES Final Result documented in this encounter Visit Diagnoses Not on filedocumented in this encounter Additional Health Concerns Infection Onset Date Last Indicated Resolved Time COVID: Recovered Comment:Added based on recent COVID infection. 10/09/2022 10/17/2022 01/07/2023 3:05 AM C DT documented as of this encounter Care Teams Emergency Room Physician Assistant Relationship Specialty Start Date End Date Fadi Clemons DO [address] [address] PCP - General Family Medicine 11/03/22 Regina Contreras, RN Copyholder 12/07/19 Charly Biggs MD [address] [address] Consulting Physician Internal Medicine 03/28/20 documented as of this encounter
--- OUTSIDE RECORDS SUMMARY | 2024-06-27 01:51 | XMS_ITS | Encounter Summary ---
Author Organization [facility] Healthcare Address [address] [place] [address] Care Team Providers Care Manager Inpatient Name Role Phone Regina Contreras RN Unavailable [phone] Charly Biggs MD Unavailable [phone] Fadi Clemons DO Primary Care Provider [phone] Encounter Details Date Type Department Care Team (Latest Contact Info) Description 01/23/2023 1:30 PM CDT - 01/23/2023 11:59 PM CDT Hospital Encounter [id number] [place], [place] [id number] ESRD (end stage renal disease) ([facility]) ([facility]) Discharge Disposition: Discharge to home or self [...] on file 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 [employer] Gender Identity Not on file Sexual Orientation [...] mouth daily 30 tablet 11 12/26/2022 4 acyclovir (ZOVIRAX) 200 mg capsule Take 1 capsule (200 mg total) by mouth 2 (two) times a day 60 capsule 11 05/16/2022 3 biotin 2,500 mcg capsule Take 1 capsule by mouth daily 4 Eliquis 5 mg tablet Take 1 tablet (5 mg total) by mouth 2 (two) times a day 12/23/2022 4 levothyroxine (SYNTHROID) 100 mcg tablet Take 1 tablet (100 mcg total) by mouth catechist before breakfast 30 tablet 11 10/17/2022 4 [...] Priority Date/Time Associated Diagnosis Comments EGFR Routine 01/23/2023 1:30 PM CDT ESRD (end stage renal disease) ([facility]/HCC) ([facility]) DIFFERENTIAL AUTO Routine 01/23/2023 1:3 0 PM CDT ESRD (end stage renal disease) (CMS/HCC) ([facility]) CBC WITH AUTO DIFFERENTIAL Routine 01/23/2023 1:30 PM CDT ESRD (end stage renal disease) (CMS/HCC) (HCC) BASIC METABOLIC PANEL Routine 01/23/2023 1:30 PM CDT ESRD (end stage renal disease) ([facility]/HCC) ([facility]) documented in this encounter Results * eGFR (01/23/2023 1:30 PM CDT) [facility] eGFR 55 mL/min/1. 73 m2 [facility]E [facility] Comment: Interpretive Data Reference Interval Normal ?>/= [...] interpretive data was last reviewed 2021. Blood 01/23/2023 1:30 PM CDT 01/23/2023 7:27 PM CDT Stewart Patino MD LAB BLOOD ORDERABLES Final Result [facility] [address] Department [place] [address] * (ABNORMAL) Differential, auto (01/23/2023 1:30 PM CDT) Neutrophil abs 3.9 1.7 - 6.5 K/cumm [facility] Imm gran abs 0.0 0.0 - 0.1 K/cumm [facility] Lymphocyte abs 0.7(L) 0.8 - 3.3 K/cumm [facility] Monocyte abs 0.7 0.2 - 0.8 K/cumm [facility] Eosinophil abs 0.1 0.0 - 0.5 K/cumm [facility] Basophil abs 0.0 0.0 - 0.1 K/cumm [facility] Neutrophil pct 71.9 % [facility] Comment: Interpretive Data Percent cell count reference ranges are not reported, since discordance with absolute values may lead to misinterpretation of CBC data. Current Interpretive Data was last revised on 2017. Imm gran pct 0.6 % [facility] Comment: Interpretive Data Percent cell count reference ranges are not reported, since discordance with absolute values may lead to misinterpretation of CBC data. Current Interpretive Data was last revised on 2017. Lymphocyte pct 12.2 % [facility] Comment: Interpretive Data Percent cell count reference ranges are not reported, since discordance with absolute values may lead to misinterpretation of CBC data. Current Interpretive Data was last revised on 2017. Monocyte pct 12.2 % [facility] Comment: Interpretive Data Percent cell count reference ranges are not reported, since discordance with absolute values may lead to misinterpretation of CBC data. Current Interpretive Data was last revised on 2017. Eosinophil pct 2.4 % [facility] Comment: Interpretive Data Percent cell count reference ranges are not reported, since discordance with absolute values may lead to misinterpretation of CBC data. Current Interpretive Data was last revised on 2017. Basophil pct 0.7 % [facility] Comment: Interpretive Data Percent cell count reference ranges are not reported, since discordance with absolute values may lead to misinterpretation of CBC data. Current Interpretive Data was last revised on 2017. Blood 01/23/2023 1:30 PM CDT 01/23/2023 7:18 PM CDT us Stewart Patino MD LAB BLOOD ORDERABLES Final Result [facility] [address] Department [place] [address] * (ABNORMAL) Basic metabolic panel (01/23/2023 1:30 PM CDT) Sodium 141 135 - 145 mmol/L [facility] Potassium, pl 5.3(H) 3.3 - 4.9 mmol/L [facility] Chloride 108 97 - 110 mmol/L [facility] CO2 24 22 - 32 mmol/L [facility] Anion gap 9 2 - 15 mmol/L [facility] BUN 26(H) 6 - 25 mg/dL [facility] Creatinine 1.01 0.60 - 1.10 mg/dL [facility] Glucose 103 70 - 199 mg/dL [facility] Comment: Interpretive Data Fasting glucose >/= 126 [...] classification and Diagnosis of Diabetes Diabetes Care 202; 46: S19-S40. Current interpretive data was last revised 2022. Calcium 10.4(H) 8.5 - 10.3 mg/dL [facility] Blood 01/23/2023 1:30 PM CDT 01/23/2023 7:18 PM CDT Stewart Patino MD LAB BLOOD ORDERABLES Final Result Performing Organization Address City/[facility]/ZIP Co de Phone Number STEVE [address] [place] [address] * (ABNORMAL) CBC with auto differential (01/23/2023 1:30 PM CDT) Pathologist [facility] WBC 5.4 3.8 - 9.9 K/cumm [facility] Hgb 12.4 11.9 - 15.5 g/dL [facility] Hct 39.1 35.6 - 45.5 % [facility] Plt 144(L) 150 - 400 K/cumm [facility] MPV 11.0 9.1 - 12.3 fL [facility] RBC 3.67(L) 3.90 - 5.20 M/cumm [facility] MCV 106.5(H) 81.3 - 96.4 fL [facility] MCH 33.8(H) 27.1 - 33.3 pg [facility] MCHC 31.7(L) 32.3 - 35.7 g/dL [facility] RDW CV 13.2 11.1 - 14.9 % [facility] RDW SD 52.8(H) 35.7 - 48.1 fL [facility] NRBC abs 0.00 0.00 - 0.01 K/cumm [facility] Blood 01/23/2023 1:30 PM CDT 01/23/2023 7:18 PM CDT Stewart Patino MD LAB BLOOD ORDERABLES Final Result [facility] [address] [place] [address] documented in this encounter Visit Diagnoses Diagnosis ESRD (end stage renal disease) (CMS/HCC) (HCC) End stage renal disease documented in this encounter Care Teams Manager Inpatient Relationship Specialty Start Date End Date Fadi Clemons DO [address] [address] PCP - General Family Medicine 11/03/22 Regina Contreras, RN Reverse Unit Operator 12/07/19 Charly Biggs MD [address] [address] Consulting Physician Internal Medicine 03/28/20 documented as of this encounter
--- OUTSIDE RECORDS SUMMARY | 2024-06-27 01:51 | XMS_ITS | Encounter Summary ---
Author Organization [facility] Healthcare Address [address] [place] [address] Care Team Providers Care Bag Press Operator Name Role Phone Regina Contreras RN Unavailable [phone] Charly Biggs MD Unavailable [phone] Fadi Clemons DO Primary Care Provider [phone] Encounter Details Date Type Department Care Team (Late st Contact Info) Description 11/13/2022 Telephone [facility] Transplant Kidney [address] [facility] [phone] [place] [address] Liss Huynh Social History Tobacco Use Types Packs/Day Years Used Date Smoking Tobacco: Never Smokeless Tobacco: Never Alcohol Use Standard Drinks/Week Comments No 0 (1 standard drink = 0.6 oz pur e alcohol) Comments No Sex and Gender Information Value Date Recorded Sex Assigned at Not on file 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 Please call her back. Elida Contreras RN: Called pt back to discuss. States she has Covid and they took her off of [place] for a few days. States that they are going to restart her on the home dose of 1mg BID. They are waiting for a bed here at [facility]. They would like to leave AMA and come to the ER here to get better care but they know they would not have their admission covered by medicare if they do that. They are going to wait for a bed. documented in this encounter Plan of Treatment Not on file documented as of this encounter Visit Diagnoses Not on filedocumented in this encounter Additional Health Concerns Infection Onset Date Last Indicated Resolved Time COVID: Recovered Comment:Added based on recent COVID infection. 10/09/2022 10/17/2022 01/07/2023 3:05 AM C DT documented as of this encounter Care Teams Bag Press Operator Relationship Specialty Start Date End Date Fadi Clemons DO [address] [employer] [address] [address] PCP - General Family Medicine 11/03/22 Regina Contreras, RN Machine Assistant 12/07/19 Charly Biggs MD [address] [address] Consulting Physician Internal Medicine 03/28/20 documented as of this encounter
--- OUTSIDE RECORDS SUMMARY | 2024-06-27 01:51 | XMS_ITS | Encounter Summary ---
Author Organization [facility] Address [address] [place] [address] Care Team Providers Care Music Department Chair Name Role Phone Regina Contreras RN Unavailable [phone] Charly Biggs MD Unavailable [phone] Fadi Clemons DO Primary Care Provider [phone] Encounter Details Date Type Department Care Team (Late st Contact Info) Description 01/23/2023 1:30 PM CDT Lab [facility] Medical [facility] Outpatient Lab at [address] [address] HTN (hypertension) (Primary Dx) Social History Tobacco Use Types [...] on file 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 Gender Identity Not on file Sexual Orientation Not on file documented as of this encounter Plan of Treatment Not on file documented as of this encounter Visit Diagnoses Diagnosis HTN (hypertension)- Primary Unspecified essential hypertension documented in this encounter Care Teams Music Department Chair Relationship Specialty Start Date End Date Fadi Clemons DO [address] [address] PCP - General Family Medicine 11/03/22 Regina Contreras, RN Director Funds Development 12/07/19 Charly Biggs MD [address] [address] Consulting Physician Internal Medicine 03/28/20 documented as of this encounter
--- OUTSIDE RECORDS SUMMARY | 2024-06-27 01:51 | XMS_ITS | Encounter Summary ---
Author Organization [facility] Address [address] [place] [address] Phone Care Team Providers Care Family Practice Doctor Name Role Phone Regina Contreras RN Unavailable [phone] Charly Biggs MD Unavailable [phone] Fadi Clemons DO Primary Care Provider [phone] Reason for Referral * Diagnostic Imaging (Routine) - Closed Specialty Diagnoses / Procedures Referred By Jairo meyer Referred To Contact Radiology Diagnoses ESRD (end stage renal disease) (CMS/HCC) (HCC) Procedures IR Dialysis Fistulagram W WIND POWER PROJECT MANAGER Peripheral Segment Arturo Khan MD PhD 1 [facility] [address] [place] [address] Phone: tel: fax: [address] [address] Referral ID Status Reason Start Date Expiration Date Visits Re quested Visits Authorized [id number] Closed 01/12/2023 02/11/2024 1 1 Encounter Details Date Type Department Care Team (Late st Contact Info) Description 01/12/2023 Orders Only [facility] Surgery [address] [facility] 12th [place] [address] [place] [address] Arturo Khan MD PhD 1 [facility] [address] [place] [address] ESRD (end stage renal disease) (CMS/HCC) (HCC) (Primary Dx) Social History Tobacco Use Types [...] on file 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 Prior to beginning the procedure, [place] Protocol was performed to confirm the patient's [...] graft followed by placement of a 5 greek catheter. 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 Prior to beginning the procedure, [place] Protocol was performed to confirm the patient's [...] graft followed by placement of a 5 greek catheter. Fluoroscopy was used for all catheter [...] Diagnoses Diagnosis ESRD (end stage renal disease) (CMS/[facility]) ([facility])- Primary End stage renal disease ESRD (end stage renal disease) (CMS/[facility]) ([facility]) End stage renal disease documented in this encounter Care Teams Family Practice Doctor Relationship Specialty Start Date End Date Fadi Clemons DO [address] [address] PCP - General Family Medicine 11/03/22 Regina Contreras, RN Chief Mate 12/07/19 Charly Biggs MD [address] [address] Consulting Physician Internal Medicine 03/28/20 documented as of this encounter
--- OUTSIDE RECORDS SUMMARY | 2024-06-27 01:51 | XMS_ITS | Encounter Summary ---
Author Organization [facility] Healthcare Address [address] [place] [address] Care Team Providers Care Utilities And Maintenance Supervisor Name Role Phone Regina Calabrese RN Unavailable [phone] Merlin Biggs MD Primary Care Provider [phone] Charly Biggs MD Unavailable [phone] Encounter Details Date Type Department Care Team (Late st Contact Info) Description 10/27/[address] 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 Called and thinks she may have a UTI, please call her to discuss. Urgency. Not sure if she needs antibx. Elida Calabrese RN: Shared UC ordered in clinic with Dr. Mcqueen, awaiting response. Discussed with Dr. Babb: Nothing oral is an option. Pt needs IV antibiotics, she needs to be admitted for treatment if she is really allergic to all of these things. Elida Calabrese RN: Called pt back to discuss. States that since she had Covid she was dehydrated. Since then she has had issues with UTI's. States that she does have UTI symptoms, frequency and urgency. She has had this going on since she had Covid. She says that she would rather not be directly admitted, and that she is not really allergic to everything listed in her allergy list, but she is definitely allergic toCipro. She has a urologist, Dr. Natalie Mcgraw who has treated her UTIs in the past. Will reachout to her to see if she has any suggestions to avoid admission for this pt. If we prescribe something, would like a script sent to [facility]. Will await response from Urologist. Per urologist the Cipro is the only option that would be oral, unclear if pt has a true allergy to this. Discussed with pt, she states that last time she took Cipro it made her UTI worse, but she didnot have a rash or any other allergic reaction symptoms after taking it. Is agreeable to taking Cipro. Urology recommends 500mg BID for 5 days. Will verify with our team that this is okay and send topharmacy. Dr. Hawkins: I'm not thrilled with the plan but if she's refusing and if QTc is ok, then do Cipro 250 BID x 5 days. Warn her about risk of tendon rupture please. Elida Calabrese RN: Called pt back and let her know about these side effects. Sent script. documented in this encounter Plan of Treatment Not on file documented as of this encounter Visit Diagnoses Not on filedocumented in this encounter Additional Health Concerns Infection Onset Date Last Indicated Resolved Time COVID: Recovered Comment:Added based on recent COVID infection. 10/09/2022 10/17/2022 01/07/2023 3:05 AM C DT documented as of this encounter Care Teams Utilities And Maintenance Supervisor Relationship Specialty Start Date End Date Merlin Biggs MD [address] [place] [address] PCP - General Internal Medicine 02/20/20 11/02/22 Regina Calabrese RN Manufacturing Finance Manager 12/07/19 Charly Biggs MD [address] [address] Consulting Physician Internal Medicine 03/28/20 documented as of this encounter
--- OUTSIDE RECORDS SUMMARY | 2024-06-27 01:51 | XMS_ITS | Encounter Summary ---
Author Organization [facility] Healthcare Address [address] [place] [address] Care Team Providers Care Polysomnography Technician Name Role Phone Regina Conrteras RN Unavailable [phone] Charly Biggs MD Unavailable [phone] Fadi Clemons DO Primary Care Provider [phone] Encounter Details Date Type Department Care Team (Late st Contact Info) Description 11/04/2022 Telephone [facility] Transplant Kidney [address] [facility] [address] Mailstop [phone] [place] [address] Liss Huynh Social History Tobacco Use Types Packs/Day Years Used Date Smoking Tobacco: Never Smokeless Tobacco: Never Alcohol Use Standard Drinks/Week Comments No 0 (1 standard drink = 0.6 oz pur e alcohol) Comments No Sex and Gender Information Value Date Recorded Sex Assigned at Not on file 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 Is returning call regarding UTI and possible admit for IV antibx. Please call her back. Elida Contreras RN: Called pt back, states she did not finish her Cipro, she said she had swelling in her eye and so she stopped. Her pathological technician said that she should resume it, it does not appear to be a reaction to the Cipro. Pt states she has no symptoms of a UTI. Will complete the Cipro and let me know it she develops any UTI symptoms. documented in this encounter Plan of Treatment Not on file documented as of this encounter Visit Diagnoses Not on filedocumented in this encounter Additional Health Concerns Infection Onset Date Last Indicated Resolved Time COVID: Recovered Comment:Added based on recent COVID infection. 10/09/2022 10/17/2022 01/07/2023 3:05 AM C DT documented as of this encounter Care Teams Polysomnography Technician Relationship Specialty Start Date End Date Fadi Clemons DO [address] [address] PCP - General Family Medicine 11/03/22 Regina Contreras, RN Granite Block Paver 12/07/19 Charly Biggs MD [address] [address] Consulting Physician Internal Medicine 03/28/20 documented as of this encounter
--- OUTSIDE RECORDS SUMMARY | 2024-06-27 01:51 | XMS_ITS | Encounter Summary ---
Author Organization [facility] Address [address] [place] [address] Care Team Providers Care Dry Wall Sprayer Name Role Phone Regina Contreras RN Unavailable [phone] Charly Biggs MD Unavailable [phone] Fadi Clemons DO Primary Care Provider [phone] Encounter Details Date Type Department Care Team (Late st Contact Info) Description 11/11/2022 Orders Only [facility] Cardiology [address] [place] [address] Anjali Lambert NP [address] [place] [address] Social History Tobacco Use Types [...] on file 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 Gender Identity Not on file Sexual Orientation Not on file documented as of this encounter Plan of Treatment Not on file documented as of this encounter Procedures Procedure Name Priority Date/Time Associated Diagnosis Comments CARDIOLOGY DOCUMENT SCAN Routine 11/11/2022 documented in this encounter Results * Cardiology Document Scan (11/11/2022) Anatomical Region Laterality Modality Other Anjali Lambert NP CV CARDIAC SERVICES PROCEDUR ES Final Result documented in this encounter Visit Diagnoses Not on filedocumented in this encounter Additional Health Concerns Infection Onset Date Last Indicated Resolved Time COVID: Recovered Comment:Added based on recent COVID infection. 10/09/2022 10/17/2022 01/07/2023 3:05 AM C DT documented as of this encounter Care Teams Dry Wall Sprayer Relationship Specialty Start Date End Date Fadi Clemons DO [address] [address] PCP - General Family Medicine 11/03/22 Regina Contreras, DEREK Circuit Breaker Mechanic 12/07/19 Charly Biggs MD [address] [address] Consulting Physician Internal Medicine 03/28/20 documented as of this encounter
--- OUTSIDE RECORDS SUMMARY | 2024-06-27 01:51 | XMS_ITS | Encounter Summary ---
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 She was getting scheduled 3 monthly studies on the fistula prior to her transplant in January 2013. I saw her for the 1st time in March 2015 with some complaints related to the graft. She has not had a single intervention on this graft since her transplant in 2012. Her only intervention which I had requested was performed on 01/01/2021 for symptoms suggestive of venous hypertension. 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 She is not been seen in the clinic since. She was seen in the clinic today with a history of 3 week and swelling. Her symptoms are clearly suggestive of recurrence of venous hypertension though they are not very bad. Her flow volume in the access is around 1 L.. I am setting her up for a fistulogram with the intention of dilating her central stenosis. Even if you find a graft vein anastomotic site stenosis in the axillary vein please avoid dilating that as her graft flow is adequate and graft vein anastomotic site stenosis in the axilla we will not give her symptoms of venous hypertension. I will continue to follow her. Thank you Arturo Khan fistulagram / dilation central stenosis Scheduled 01/26/23 @ 0800, [facility], Dr. Patino Arrival 0700, npo, w/ delivery driver assistant. Pt aware and agreeable to plan as she doesn't have dialysis unit currently. Pt to have labs drawn prior to procedure. documented in this encounter Plan of Treatment Not on file documented as of this encounter Visit Diagnoses Not on filedocumented in this encounter Care Teams Nurse Assistant Relationship Specialty Start Date End Date Fadi Clemons DO [address] [address] PCP - General Family Medicine 11/03/22 Regina Contreras, DEREK Power House Control Room Operator 12/07/19 Charly Biggs MD [address] [address] Consulting Physician Internal Medicine 03/28/20 documented as of this encounter
--- OUTSIDE RECORDS SUMMARY | 2024-06-27 01:51 | XMS_ITS | Encounter Summary ---
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 documented in this encounter Plan of Treatment Not on file documented as of this encounter Visit Diagnoses Not on filedocumented in this encounter Care Teams Punching Machine Operator Relationship Specialty Start Date End Date Fadi Clemons DO [address] [address] PCP - General Family Medicine 11/03/22 Regina Contreras, RN Overhead Crane Inspector 12/07/19 Charly Biggs MD [address] [address] Consulting Physician Internal Medicine 03/28/20 documented as of this encounter
--- OUTSIDE RECORDS SUMMARY | 2024-06-27 01:51 | XMS_ITS | Encounter Summary ---
Author Organization [facility] Healthcare Address [address] [place] [address] Care Team Providers Care Director Corporate Security Name Role Phone Regina Contreras RN Unavailable Merlin Biggs MD Primary Care Provider [phone] Charly Biggs MD Unavailable [phone] Encounter Details Date Type Department Care Team (Late st Contact Info) Description 10/04/2022 Orders Only [facility] Health Information Management [address] [place] [address] Scanning, Provider Social History Tobacco Use Types Packs/Day Years Used Date Smoking Tobacco: Never Smokeless Tobacco: Never Alcohol Use Standard Drinks/Week Comments No 0 (1 standard drink = 0.6 oz pur e alcohol) Comments No Sex and Gender Information Value Date Recorded Sex Assigned at Not on file 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 Gender Identity Not on file Sexual Orientation Not on file documented as of this encounter Plan of Treatment Not on file documented as of this encounter Procedures Procedure Name Priority Date/Time Associated Diagnosis Comments SCAN - LABS 10/04/2022 3:41 PM CDT documented in this encounter Results * SCAN - LABS (10/04/2022 3:41 PM CDT) us Provider Scanning Final Result documented in this encounter Visit Diagnoses Not on filedocumented in this encounter Additional Health Concerns Infection Onset Date Last Indicated Resolved Time COVID19 09/19/2022 09/19/2022 10/09/2022 3:05 AM CDT documented as of this encounter Care Teams Director Corporate Security Relationship Specialty Start Date End Date Merlin iBggs MD [address] [place] [address] PCP - General Internal Medicine 02/20/20 11/02/22 Regina Contreras, DEREK Network Relay Tester 12/07/19 Charly Biggs MD [address] [address] Consulting Physician Internal Medicine 03/28/20 documented as of this encounter
--- OUTSIDE RECORDS SUMMARY | 2024-06-27 01:51 | XMS_ITS | Encounter Summary ---
Author Organization [facility] Address [address] [place] [address] Care Team Providers Care Floor Installation Mechanic Name Role Phone Regina Contreras RN Unavailable [phone] Charly Biggs MD Unavailable [phone] Fadi Clemons DO Primary Care Provider [phone] Encounter Details Date Type Department Care Team (Late st Contact Info) Description 11/13/2022 Orders Only [facility] Cardiology [address] [place] [address] Anjali Lambert NP [address] [place] [address] Social History Tobacco Use Types Packs/Day Years Used Date Smoking Tobacco: Never Smokeless Tobacco: Never Alcohol Use Standard Drinks/Week Comments No 0 (1 standard drink = 0.6 oz pur e alcohol) Comments No Sex and Gender Information Value Date Recorded Sex Assigned at Not on file 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 Gender Identity Not on file Sexual Orientation Not on file documented as of this encounter Plan of Treatment Not on file documented as of this encounter Procedures Procedure Name Priority Date/Time Associated Diagnosis Comments CARDIOLOGY DOCUMENT SCAN Routine 11/13/2022 documented in this encounter Results * Cardiology Document Scan (11/13/2022) Anatomical Region Laterality Modality Other us Anjali Lambert INFORMATION BROKER CV CARDIAC SERVICES PROCEDUR ES Final Result documented in this encounter Visit Diagnoses Not on filedocumented in this encounter Additional Health Concerns Infection Onset Date Last Indicated Resolved Time COVID: Recovered Comment:Added based on recent COVID infection. 10/09/2022 10/17/2022 01/07/2023 3:05 AM C DT documented as of this encounter Care Teams Floor Installation Mechanic Relationship Specialty Start Date End Date Fadi Clemons DO [address] [address] PCP - General Family Medicine 11/03/22 Regina Contreras, RN Cpht 12/07/19 Charly Biggs MD [address] [address] Consulting Physician Internal Medicine 03/28/20 documented as of this encounter
--- OUTSIDE RECORDS SUMMARY | 2024-06-27 01:51 | XMS_ITS | Encounter Summary ---
Author Organization [facility] Healthcare Address [address] [place] [address] Care Team Providers Care Hearing Care Practitioner Name Role Phone Regina Contreras RN Unavailable [phone] Charly Biggs MD Unavailable [phone] Fadi Clemons DO Primary Care Provider [phone] Encounter Details Date Type Department Care Team (Late st Contact Info) Description 11/07/2022 Telephone [facility] Transplant Kidney [address] [facility] [address] [phone] [place] [address] Arabella Hartman Social History Tobacco Use Types Packs/Day Years Used Date Smoking Tobacco: Never Smokeless Tobacco: Never Alcohol Use Standard Drinks/Week Comments No 0 (1 standard drink = 0.6 oz pur e alcohol) Comments No Sex and Gender Information Value Date Recorded Sex Assigned at Not on file 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 Elida Contreras RN: Called pt back to discuss. States she was admitted with CHF and SOB. Would like to transfer to [facility].Provided them DA line phone number to see if their physician team could call our team to facilitatetransfer. Let them know this is not really a transplant issue so they will more than likely have them speak with her cardiology team. documented in this encounter Plan of Treatment Not on file documented as of this encounter Visit Diagnoses Not on filedocumented in this encounter Additional Health Concerns Infection Onset Date Last Indicated Resolved Time COVID: Recovered Comment:Added based on recent COVID infection. 10/09/2022 10/17/2022 01/07/2023 3:05 AM C DT documented as of this encounter Care Teams Hearing Care Practitioner Relationship Specialty Start Date End Date Fadi Clemons DO [address] [address] PCP - General Family Medicine 11/03/22 Regina Contreras, RN Bill Distributor 12/07/19 Charly Biggs MD [address] [address] Consulting Physician Internal Medicine 03/28/20 documented as of this encounter
--- OUTSIDE RECORDS SUMMARY | 2024-06-27 01:51 | XMS_ITS | Encounter Summary ---
Author Organization [facility] Address [address] [place] [address] Phone Care Team Providers Care Quality Control Analyst Name Role Phone Regina Contreras RN Unavailable [phone] Charly Biggs MD Unavailable [phone] Fadi Clemons DO Primary Care Provider [phone] Encounter Details Date Type Department Care Team (Late st Contact Info) Description 11/10/2022 Documentation [facility] Nephrology [facility] Advanced Medicine 5th [place] [address] [place] [address] Layla Malloy MD [address] [facility] [address] [place] [address] Social History Tobacco Use Types Packs/Day Years Used Date Smoking Tobacco: Never Smokeless Tobacco: Never Alcohol Use Standard Drinks/Week Comments No 0 (1 standard drink = 0.6 oz pur e alcohol) Comments No Sex and Gender Information Value Date Recorded Sex Assigned at Not on file 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 Richter at [facility] re: patient. Initially was admitted for SOB suspected CHF exacerbation. However today, decompensated and now requiring BiPAP. Found to now have COVIDinfection. He asked if remdesivir, dex, toci are ok with transplant patients, and they would be if it is needed in the setting of COVID infection. In addition, our usual management regarding IMS is to hold the antimetabolite (she has already been off this post transplant) and to continue on FK (check trough levels) and prednisone. In her case they would like to transition to dexamethasone, which would be ok from transplant standpoint. He plans to call to discuss with our medical ICU for possible transfer. documented in this encounter Plan of Treatment Not on file documented as of this encounter Visit Diagnoses Not on filedocumented in this encounter Additional Health Concerns Infection Onset Date Last Indicated Resolved Time COVID: Recovered Comment:Added based on recent COVID infection. 10/09/2022 10/17/2022 01/07/2023 3:05 AM C DT documented as of this encounter Care Teams Quality Control Analyst Relationship Specialty Start Date End Date Fadi Clemons DO [address] [address] PCP - General Family Medicine 11/03/22 Regina Contreras, DEREK Oyster Picker 12/07/19 Charly Biggs MD [address] [address] Consulting Physician Internal Medicine 03/28/20 documented as of this encounter
--- OUTSIDE RECORDS SUMMARY | 2024-06-27 01:51 | XMS_ITS | Encounter Summary ---
Author Organization [facility] Address [address] [facility] [address] [place] [address] Care Team Providers Care Jd Edwards Name Role Phone Regina Contreras RN Unavailable [phone] Charly Biggs MD Unavailable [phone] Fadi Clemons DO Primary Care Provider [phone] Encounter Details Date Type Department Care Team (Late st Contact Info) Description 11/10/2022 Orders Only [facility] Cardiology [address] [place] [address] Anjali Lambert NP [address] [place] [address] Social History Tobacco Use Types [...] on file Legal Sex 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 Gender Identity Not on file Sexual Orientation Not on file documented as of this encounter Plan of Treatment Not on file documented as of this encounter Procedures Procedure Name Priority Date/Time Associated Diagnosis Comments CARDIOLOGY DOCUMENT SCAN Routine 11/10/2022 documented in this encounter Results * Cardiology Document Scan (11/10/2022) Anatomical Region Laterality Modality Other Anjali Lambert NP CV CARDIAC SERVICES PROCEDUR ES Final Result documented in this encounter Visit Diagnoses Not on filedocumented in this encounter Additional Health Concerns Infection Onset Date Last Indicated Resolved Time COVID: Recovered Comment:Added based on recent COVID infection. 10/09/2022 10/17/2022 01/07/2023 3:05 AM C DT documented as of this encounter Care Teams Jd Edwards Relationship Specialty Start Date End Date Fadi Clemons DO [address] [address] PCP - General Family Medicine 11/03/22 Regina Contreras, DEREK Television Program Director 12/07/19 Charly Biggs MD [address] [address] Consulting Physician Internal Medicine 03/28/20 documented as of this encounter
--- OUTSIDE RECORDS SUMMARY | 2024-06-27 01:51 | XMS_ITS | Encounter Summary ---
Author Organization [facility] Address [address] [place] [address] Phone Care Team Providers Care Nail Maker Name Role Phone Regina Contreras RN Unavailable Merlin Biggs MD Primary Care Provider [phone] Charly Biggs MD Unavailable [phone] Encounter Details Date Type Department Care Team (Late st Contact Info) Description 10/23/2022 10:45 AM CDT Office Visit [facility] Nephrology [address] [facility] Advanced Medicine 5th [place] [address] [place] [address] Kirstin Mcqueen MD [address] [place] [address] Kidney replaced by transplant (Primary Dx); Acute cystitis without hematuria; Encounter for aftercare following kidney transplant Social History Tobacco Use Types Packs/Day Years Used Date Smoking Tobacco: Never Smokeless Tobacco: Never Tobacco Cessation:Counseling Given: Not Answered Alcohol Use Standard Drinks/Week Comments No 0 (1 standard drink = 0.6 oz pur e alcohol) Comments No Sex and Gender Information Value Date Recorded Sex Assigned at Not on file 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 Gender Identity Not on file Sexual Orientation Not on file documented as of this encounter Last Filed Vital Signs Vital Sign Reading Time Taken Comments Blood Pressure 161/76 10/23/2022 10:54 AM CDT Pulse 76 10/23/2022 10:54 AM CDT Temperature 36.7 ??C (98 ??F) 10/23/2022 10:54 AM CDT Respiratory Rate - - Oxygen Saturation - - Inhaled Oxygen Concentration - - Weight 54.9 kg (121 lb) 10/23/2022 10:54 AM CDT Height 157.5 cm (5' 2 ) 10/23/2022 10:54 AM CDT Body Mass Index 22.13 10/23/2022 10:54 AM CDT documented in this encounter Patient Instructions * Patient Instructions* Kirstin Mcqueen MD - 10/23/2022 10:45 AM CDT Your offensive coordinator is Elida Contreras Will check your urine culture Will try to reach your urologist, Dr Mcgraw You will receive a call about scheduling for a visit with Transplant Infectious Disease documented in this encounter Progress Notes * Kirstin Mcqueen MD - 10/23/2022 10:45 AM CDT POST KIDNEY TRANSPLANT NOTE HISTORY OF PRESENT ILLNESS: Ms. Dunlap is an 87 y.o. female with end-stage renal disease secondary [...] output. Stent removed 03/10/13. 3. Readmission to [facility] on March 08, 2013 for [...] Since our last clinic visit, Juliet Dunlap has had no acute hospitalizations but did have COVID several months ago. She was accompanied to visit by her . She appears comfortable during visit and denies major complaints other than feeling a little more tired than usual, and mostly since her COVID infection which she otherwise recovered from subjectively. Today she denies cough, chest pain, dyspnea. Denies fevers, dysuria, urgency, or frequency. Reports compliance with immunosuppression. All other systems negative. CURRENT MEDICATIONS: Current Outpatient Medications: acyclovir (ZOVIRAX) 200 mg capsule, Take 1 capsule (200 mg total) by mouth 2 (two) times a day, Disp: 60 capsule, Rfl: 11 aspirin 81 mg tablet, Take 81 mg by mouth every morning. , Disp: , Rfl: biotin 2,500 mcg capsule, Take 1 capsule by mouth daily, Disp: , Rfl: cholecalciferol (VITAMIN D-3) 2000 unit tablet, Take 1 tablet (2,000 Units total) by mouth daily, Disp: 30 tablet, Rfl: 11 cyanocobalamin (Vitamin B-12) 100 mcg tablet, Take 100 mcg by mouth daily , Disp: , Rfl: Jardiance 10 mg tablet, Take 10 mg by mouth daily, Disp: , Rfl: levothyroxine (SYNTHROID) 100 mcg tablet, Take 1 tablet (100 mcg total) by mouth stencil typist before breakfast, Disp: 30 tablet, Rfl: 11 lisinopriL (PRINIVIL,ZESTRIL) 10 mg tablet, Take 1 tablet (10 mg total) by mouth daily, Disp: 90 tablet, Rfl: 3 metoprolol tartrate (LOPRESSOR) 75 mg tablet immediate release tablet, TAKE 1 TABLET(75 MG) BY MOUTH TWICE DAILY, Disp: 180 tablet, Rfl: 3 pravastatin (PRAVACHOL) 20 mg tablet, Take 20 mg by mouth nightly. , Disp: , Rfl: predniSONE (DELTASONE) 5 mg [...] 11 trimethoprim (TRIMPEX) 100 mg tablet, Take 50 mg by mouth nightly , Disp: , Rfl: There were no vitals taken for this visit. PHYSICAL EXAM Generally: no acute distress; breathing [...] Chemistries Lab Results Component Value Date SODIUM 138 09/19/2022 SCRNA 137 07/05/2022 POTASSIUM 4.7 09/19/2022 SCRK 4.1 07/05/2022 CHLORIDE 102 09/19/2022 CL 104 03/21/2013 SCRCL 107 07/05/2022 CO2 25 09/19/2022 SCRCO2 27 07/05/2022 Anemia eval: Lab Results Component Value Date WBC 3.7 (L) 09/19/2022 SCRWBC 5.5 07/05/2022 HGB 12.6 09/19/2022 SCRHGB 12.7 07/05/2022 LABPLAT 95 (L) 09/19/2022 SCRPLT 150 07/05/2022 RETIC 0.091 02/20/2013 IRON 46 08/30/2013 TRANSFERSAT 20 08/30/2013 FERRITIN 700 (H) 02/09/2013 FOLATE 12.6 02/20/2013 Renal Function Lab Results Component Value Date BUNSER 25 09/19/2022 BUNSER 26 (H) 05/15/2022 BUNSER 24 01/01/2021 SCRBUN 21 (A) 07/05/2022 SCRBUN 29 (A) 05/22/2022 SCRBUN 23 (A) 04/28/2022 CREATININE 0.95 09/19/2022 CREATININE 0.70 07/05/2022 CREATININE 0.80 05/22/2022 GFRAA 48 (L) 03/21/2013 Renal osteo eval: Lab Results Component Value Date CALCIUM 9.8 09/19/2022 SCRCA 9.4 07/05/2022 PHOS 3.4 05/15/2022 25HYDROVITD 42 05/15/2022 ALBUMIN 3.4 (L) 09/19/2022 SCRALB 4.0 10/04/2022 Serologies: Lab Results Component Value Date HGBA1C 4.7 02/09/2013 HEPCAB Negative 02/09/2013 Lab Results Component Value Date TACRORDM 18.5 09/19/2022 TACRORDM 10.5 05/15/2022 TACROTR 6.3 03/28/2020 TACROTR 5.7 03/27/2020 TACROTR 6.7 03/26/2020 URINALYSIS: Lab Results Component Value Date PHURINE 6.5 09/19/2022 PROTURQL Trace 09/19/2022 GLUCOSEUR Negative 09/19/2022 BLOODUR Negative 09/19/2022 Spot Lab Results Component Value Date PROTUR Negative 05/15/2022 PROTUR 3+ (A) 06/06/2021 PROTUR Negative 05/24/2020 PROTCREAT 0.2 04/27/2013 No results found for: OSMOUR, UREAUR, SODIUMURR, KUR, CLUR, CALCIUMUR Lipids: Lab Results Component Value Date CHOL 140 03/19/2020 SCRTCHOL 132 07/05/2022 HDL 70 03/19/2020 LDL 70 02/09/2013 SCRLDL 51 07/05/2022 TRIG 64 03/19/2020 SCRTRIG 109 07/05/2022 She had COVID in September LFTs: Lab Results Component Value Date SCRAST 27 10/04/2022 SCRALT 18 10/04/2022 SCRBILI 0.9 01/22/2021 Coags: Lab Results Component Value Date INR 1.1 01/01/2021 ASSESSMENT & PLAN: 1. 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 Will start course of Ciprofloxacin based on sensitivity results 2. High risk medication/Immunosuppression: - The patient remains on dual immunosuppression and most recent FK level was 18.5 - She will continue her tacrolimus and prednisone as prescribed. - She is to remain off Myfortic due to a prior history of leukopenia, and additionally her history of UTIs and shingles. 3. Infectious disease prophylaxis: - The patient is also on acyclovir 200 mg b.i.d. due to a history of shingles. -She has recurrent UTI -I referred her to Transplant Infectious Disease 5. Hypertension: - Blood pressures generally well controlled on current regimen of lisinopril 10 mg every day and metoprolol 75 mg BID. 6. Hyperlipidemia - Total cholesterol 132, HDL 55, LDL 51, TG 109 (07/05/22) - Monitor lipid panel annually - Continue pravastatin 20 mg QD 7. 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 - She reports that she has received the Flu Vaccine and Bivalent covalent vaccine 8. History of Basal Cell Ca: - Continue follow up with dermatology - Given her overall stability on current immunosuppressive regimen and lack of recurrent SCC, will defer transitioning to mTORi based therapy at this time DISPOSITION: Return to clinic in 1 year. documented in this encounter Plan of Treatment Not on file documented as of this encounter Procedures Procedure Name Priority Date/Time Associated Diagnosis Comments POCT URINALYSIS DIPSTICK Routine 10/23/2022 11:24 AM CDT Encounter for aftercare following kidney transplant documented in this encounter Results * (ABNORMAL) Urinalysis reflex to microscopic and culture Urine, clean voided (10/23/2022 12:46 PM CDT) Color, ur Yellow Yellow [facility] Clarity, ur Clear Clear [facility] Specific gravity, ur 1.025 1.003 - 1.030 [facility] pH, urine 6.0 [facility] Protein, ur ql Trace Negative [facility] Glucose, ur ql Negative Negative [facility] Ketones, ur Negative Negative [facility] Bilirubin, ur Negative Negative [facility] Blood, ur Negative Negative [facility] Urobilinogen, ur <2.0 <2.0 mg/dL [facility] Nitrite, ur Positive(A) Negative [facility] Leukocyte esterase, ur 3+(A) Negative [facility] UA reflex comment Reflex to microscopic UA will be performed. [facility] Urine, clean voided 10/23/2022 12:46 PM CDT 10/23/2022 1:36 PM CDT Narrative [facility] - 10/23/2022 1:52 PM CDT ?? Urine pH is affected by diet, medications, systemic acid-base disturbances, and renal tubular function. ??pH may affect urinary stone formation. ??For example, urine pH below 6.0 may help reduce the tendency for calcium phosphate stones and pH greater than 6.0 may reduce the tendency for uric acid stone formation. Source: [place] [employer]. Last revised 07-16-2017 us Kirstin Mcqueen MD LAB MICROBIOLOGY - GENERAL ORDERABLES Final Result [facility] Department [place] [address] * (ABNORMAL) POCT urinalysis dipstick (10/23/2022 11:24 AM CDT) Glucose, ur, POC Negative Negative MG/DL [facility]OUND Bilirubin, ur, POC Negative Negative, Small, Moderate, Large [facility] Ketones, ur, POC Trace(A) Negative [facility] Specific [place], POC 1.025 1.005 - 1.030 [facility] Blood, ur, POC Trace(A) Negative [facility] pH, ur, POC 5.0 5.0 - 8.0 [facility] NO L AB FOUND Protein, ur, POC Trace(A) Negative [facility] Urobilinogen, urine, POC 0.2 0.2 - 1.0 mg/dL [facility]OUND Nitrite, ur, POC Positive(A) Negative [facility]OUND Leukocytes, ur, POC Trace(A) Negative [facility] NO [facility] FOUND Lot Number [id number] [facility] NO LA B FOUND Urine 10/23/2022 11:2 4 AM CDT Alma Trevizo CATEGORY DIRECTOR POINT OF CARE TEST ORDERAB LES Final Result [facility] documented in this encounter Visit Diagnoses Diagnosis Kidney replaced by transplant- Primary Acute cystitis without hematuria Encounter for aftercare following kidney transplant Kidney replaced by transplant Acute cystitis without hematuria documented in this encounter Discontinued Medications Medication Sig Discontinue Reason Start Date End Da te Jardiance 10 mg tablet Take 10 mg by mouth daily 04/08/2022 10/23/2022 documented as of this encounter Orders Consult Count Last Ordered Date First Orde red Date CONSULT TO TRANSPLANT INFECTIOUS DISEASE 1 10/23/2022 documented in this encounter Additional Health Concerns Infection Onset Date Last Indicated Resolved Time COVID: Recovered Comment:Added based on recent COVID infection. 10/09/2022 10/17/2022 01/07/2023 3:05 AM C DT documented as of this encounter Care Teams Nail Maker Relationship Specialty Start Date End Date Merlin Biggs MD [address] [place] [address] PCP - General Internal Medicine 02/20/20 11/02/22 Regina Contreras, RN Clinical Psychologist 12/07/19 Charly Biggs MD [address] [address] Consulting Physician Internal Medicine 03/28/20 documented as of this encounter
--- OUTSIDE RECORDS SUMMARY | 2024-06-27 01:51 | XMS_ITS | Encounter Summary ---
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 Gender Identity Not on file Sexual Orientation Not on file documented as of this encounter Plan of Treatment Not on file documented as of this encounter Results * (ABNORMAL) CBC with auto differential (01/23/2023 1:30 PM CDT) Pathologist [facility] WBC 5.4 3.8 - 9.9 K/cumm [facility] [...] Patino MD LAB BLOOD ORDERABLES Final Result [facility] [address] [address] Department [place] [address] * (ABNORMAL) Basic metabolic panel (01/23/2023 1:30 PM CDT) Pathologist [facility] Sodium 141 135 - 145 mmol/L [facility] Potassium, pl 5.3(H) 3.3 - 4.9 mmol/L [facility] Chloride 108 97 - 110 mmol/L [facility] CO2 24 22 - 32 mmol/L [facility] Anion gap 9 2 - 15 mmol/L [facility] BUN 26(H) 6 - 25 mg/dL [facility] Creatinine 1.01 0.60 - 1.10 mg/dL [facility] Glucose 103 70 - 199 mg/dL [facility] Comment: [...] 2022. Calcium 10.4(H) 8.5 - 10.3 mg/dL [facility] Blood 01/23/2023 1:30 PM CDT 01/23/2023 7:18 PM CDT us Stewart Patino MD LAB BLOOD ORDERABLES Final Result [facility] [address] Department [place] [address] documented in this encounter Visit Diagnoses Diagnosis ESRD (end stage renal disease) (CMS/HCC) (HCC)- Primary End stage renal disease documented in this encounter Care Teams Public Finance Specialist Relationship Specialty Start Date End Date Fadi Clemons DO [address] [address] PCP - General Family Medicine 11/03/22 Regina Contreras RN Napping Machine Operator 12/07/19 Charly Biggs MD [address] [address] Consulting Physician Internal Medicine 03/28/20 documented as of this encounter
--- OUTSIDE RECORDS SUMMARY | 2024-06-27 01:51 | XMS_ITS | Encounter Summary ---
Author Organization [facility] Address [address] [place] [address] Phone Care Team Providers Care Hydraulic Assembler Name Role Phone Regina Contreras RN Unavailable [phone] Merlin Biggs MD Primary Care Provider [phone] Charly Biggs MD Unavailable [phone] Encounter Details Date Type Department Care Team (Late st Contact Info) Description 10/31/2022 Telephone [facility] Ophthalmology [address] [place] [address] Butch Maria MD [address] [place] [address] Social History Tobacco Use Types Packs/Day Years Used Date Smoking Tobacco: Never Smokeless Tobacco: Never Alcohol Use Standard Drinks/Week Comments No 0 (1 standard drink = 0.6 oz pur e alcohol) Comments No Sex and Gender Information Value Date Recorded Sex Assigned at Not on file 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 Maria or one of the shake cutter. * Telephone Encounter - EthanCeci RMA - 10/31/2022 8:49 AM CDT Pt called w/questions regarding re-establishing care. She currently has a poss bladder/kidney infection & is concerned about her eyes as there is redness around her eyelid. Please return her call w/advice. PT#: [phone] documented in this encounter Plan of Treatment Not on file documented as of this encounter Visit Diagnoses Not on filedocumented in this encounter Additional Health Concerns Infection Onset Date Last Indicated Resolved Time COVID: Recovered Comment:Added based on recent COVID infection. 10/09/2022 10/17/2022 01/07/2023 3:05 AM C DT documented as of this encounter Care Teams Hydraulic Assembler Relationship Specialty Start Date End Date Merlin Biggs MD [address] [place] [address] PCP - General Internal Medicine 02/20/20 11/02/22 Regina Contreras, RN Business Investor 12/07/19 Charly Biggs MD [address] [address] Consulting Physician Internal Medicine 03/28/20 documented as of this encounter
--- OUTSIDE RECORDS SUMMARY | 2024-06-27 01:51 | XMS_ITS | Encounter Summary ---
Author Organization [facility] Address [address] [place] [address] Care Team Providers Care Library Cataloging Technician Name Role Phone Regina Contreras RN Unavailable [phone] Charly Biggs MD Unavailable [phone] Fadi Clemons DO Primary Care Provider [phone] Encounter Details Date Type Department Care Team (Late st Contact Info) Description 01/01/2023 Telephone [facility] Transplant Kidney [address] 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 Updated her med list. documented in this encounter Plan of Treatment Not on file documented as of this encounter Visit Diagnoses Not on filedocumented in this encounter Discontinued Medications Medication Sig Discontinue Reason Start Date End Da te aspirin 81 mg tabletIndications:prevent ion of thrombosis Take 81 mg by mouth every morning. Therapy completed 01/01/2023 documented as of this encounter Additional Health Concerns Infection Onset Date Last Indicated Resolved Time COVID: Recovered Comment:Added based on recent COVID infection. 10/09/2022 10/17/2022 01/07/2023 3:05 AM C DT documented as of this encounter Care Teams Library Cataloging Technician Relationship Specialty Start Date End Date Fadi Clemons DO [address] [address] PCP - General Family Medicine 11/03/22 Regina Contreras RN Delivery Rep 12/07/19 Charly Biggs MD [address] [address] Consulting Physician Internal Medicine 03/28/20 documented as of this encounter
--- OUTSIDE RECORDS SUMMARY | 2024-06-27 01:51 | XMS_ITS | Encounter Summary ---
Author Organization [facility] Address [address] [place] [address] Phone Care Team Providers Care Engineering Operator Name Role Phone Regina Contreras RN Unavailable [phone] Charly Biggs MD Unavailable [phone] Fadi Clemons DO Primary Care Provider [phone] Encounter Details Date Type Department Care Team (Late st Contact Info) Description 01/09/2023 2:15 PM CDT Office Visit [facility] Surgery [address] [facility] Advanced Medicine 12th [place] [address] [place] [address] Social History Tobacco Use Types Packs/Day Years [...] on file 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 ??Please refer to the physician's procedure / OR operative note. us Arturo Khan MD PhD POCUS ORDERABLES Final Re sult TXP NO LAB FOUND documented in this encounter Visit Diagnoses Not on filedocumented in this encounter Care Teams Engineering Operator Relationship Specialty Start Date End Date Fadi Clemons DO [address] [address] PCP - General Family Medicine 11/03/22 Regina Contreras, DEREK Hhas 12/07/19 Charly Biggs MD [address] [address] Consulting Physician Internal Medicine 03/28/20 documented as of this encounter
--- OUTSIDE RECORDS SUMMARY | 2024-06-27 01:51 | XMS_ITS | Encounter Summary ---
Author Organization [facility] Address [address] [place] [address] Care Team Providers Care Beam Warper Name Role Phone Regina Contreras RN Unavailable [phone] Charly Biggs MD Unavailable [phone] Fadi Clemons DO Primary Care Provider [phone] Encounter Details Date Type Department Care Team (Late st Contact Info) Description 12/29/2022 Telephone [facility] Transplant Kidney [address] [facility] [address] [phone] [place] [address] Hernando Davila Social History Tobacco Use Types Packs/Day Years Used Date Smoking Tobacco: Never Smokeless Tobacco: Never Alcohol Use Standard Drinks/Week Comments No 0 (1 standard drink = 0.6 oz pur e alcohol) Comments No Sex and Gender Information Value Date Recorded Sex Assigned at Not on file 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 There is a known blockage. Pt was advised that theprocedure for relief is to be performed again. Pt doesn't know who the physician was that performedthe procedure. Please call to discuss as pt is attempting to make appt for this. Elida Contreras RN: Called pt back to discuss,looks like she saw Dr. Khan and then he referred her to IR for a fistulae in 2020. Provided her with Dr. Khan's number to call him to scheduled this procedure. Pt will call him now. documented in this encounter Plan of Treatment Not on file documented as of this encounter Visit Diagnoses Not on filedocumented in this encounter Additional Health Concerns Infection Onset Date Last Indicated Resolved Time COVID: Recovered Comment:Added based on recent COVID infection. 10/09/2022 10/17/2022 01/07/2023 3:05 AM C DT documented as of this encounter Care Teams Beam Warper Relationship Specialty Start Date End Date Fadi Clemons DO [address] [address] PCP - General Family Medicine 11/03/22 Regina Contreras, RN Internal Audit Manager 12/07/19 Charly Biggs MD [address] [address] Consulting Physician Internal Medicine 03/28/20 documented as of this encounter
--- OUTSIDE RECORDS SUMMARY | 2024-06-27 01:51 | XMS_ITS | Encounter Summary ---
Author Organization [facility] Address [address] [place] [address] Care Team Providers Care Prepress Supervisor Name Role Phone Regina Contreras RN Unavailable [phone] Charly Biggs MD Unavailable [phone] Fadi Clemons DO Primary Care Provider [phone] Encounter Details Date Type Department Care Team (Late st Contact Info) Description 01/05/2023 Telephone [facility] Transplant Kidney [address] [facility] [address] Mail[address] [phone] [place] [address] Liss Huynh Social History Tobacco Use Types Packs/Day Years Used Date Smoking Tobacco: Never Smokeless Tobacco: Never Alcohol Use Standard Drinks/Week Comments No 0 (1 standard drink = 0.6 oz pur e alcohol) Comments No Sex and Gender Information Value Date Recorded Sex Assigned at Not on file 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 Called regarding surgeon appt. Confirmed appt. Day and time. documented in this encounter Plan of Treatment Not on file documented as of this encounter Visit Diagnoses Not on filedocumented in this encounter Additional Health Concerns Infection Onset Date Last Indicated Resolved Time COVID: Recovered Comment:Added based on recent COVID infection. 10/09/2022 10/17/2022 01/07/2023 3:05 AM C DT documented as of this encounter Care Teams Prepress Supervisor Relationship Specialty Start Date End Date Fadi Clemons DO [address] [address] PCP - General Family Medicine 11/03/22 Regina Contreras, RN Multi Sensor Operator 12/07/19 Charly Biggs MD [address] [address] Consulting Physician Internal Medicine 03/28/20 documented as of this encounter
--- OUTSIDE RECORDS SUMMARY | 2024-06-27 01:51 | XMS_ITS | Encounter Summary ---
Author Organization [facility] Address [address] [place] [address] Phone Care Team Providers Care Taste Tester Name Role Phone Regina Contreras RN Unavailable [phone] Charly Biggs MD Unavailable [phone] Fadi Clemons DO Primary Care Provider [phone] Reason for Visit * Reason Comments End-Stage Renal Disease * Consultation (Routine) - Closed Specialty Diagnoses / Procedures Referred By Contac t Referred To Contact Transplant Diagnoses ESRD (end stage renal disease) ([facility]) ([facility]) Charly Biggs MD [address] [address] Phone: tel: fax: [facility] Transplant Kidney [address] [facility] [address] Mail[address] [phone] [place] [address] Phone: tel: fax: Referral ID Status Reason Start Date Expiration Date V isits Requested Visits Authorized [id number] Closed Specialty Services Required 12/29/2022 01/28/2024 1 1 Encounter Details Date Type Department Care Team (Late st Contact Info) Description 01/09/2023 2:30 PM CDT Office Visit [facility] Surgery [facility] 12th [place] [address] [place] [address] Arturo Khan MD PhD [address] [facility] [address] [place] [address] ESRD (end stage renal disease) (CMS/HCC) (HCC) Social History Tobacco Use Types Packs/Day Years [...] file 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 Gender Identity Not on file Sexual Orientation Not on file documented as of this encounter Last Filed Vital Signs Vital Sign Reading Time Taken Comments Blood Pressure 126/74 01/09/2023 2:40 PM CDT Pulse 70 01/09/2023 2:40 PM CDT Temperature 36.7 ??C (98 ??F) 01/09/2023 2:40 PM CDT Respiratory Rate - - Oxygen Saturation 96% 01/09/2023 2:40 PM CDT Inhaled Oxygen Concentration - - Weight 53.3 kg (117 lb 9.6 oz) 01/09/2023 2:40 P M CDT Height 157.5 cm (5' 2 ) 01/09/2023 2:40 PM CDT Body Mass Index 21.51 01/09/2023 2:40 PM CDT documented in this encounter Progress Notes * Arturo Khan MD PhD - 01/09/2023 2:30 PM CDT 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 Reason for visit: Patient has noticed some hand edema in the last 3-4 weeks History of present illness: Juliet Dunlap is a 87 y.o. 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 She is s/p left upper arm AVG (4-7 mm [place] graft) placement in [address] Dye, which remains open. She was 1st seen by us with nonspecific complaints of pain and discomfort on the left side on 03/29/2015. She is since was seen 1 more time in the clinic on 12/20/2020 with a history of mild edema arm edema suggestive of venous hypertension. She was set up for interventional radiology for a central vein evaluation and dilations. She was not followed up since. Patient says she started noticing some and edema which waxes and veins for last 2-3 weeks. She said she is able to do all work and it is not hurting. Past medical and surgical history, medications, allergies, family and social history have been reviewed and are part of EMR under my previous note ROS All other systems negative. Exam Vitals: There were no vitals taken for this visit. General: Appears comfortable. No acute distress. Alert and oriented x 3 Psych: Normal affect. Extremities warm and well perfused. CVS: Peripheral pulses are palpable Access evaluation Patient has a patent access. There is minimum pulsatility in the outflow. Her hand edema is suggestive of venous hypertension there is increased red issue in the hand compared to the opposite side. Color Doppler Duplex Ultra Sound Findings Her last measured flow volume was between 771 mL/min to 1029 mL/min. In December 20, 2020. I discussed and reviewed the imaging with the interventionalist involved at that time. I have also independentlyreviewed them again. 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 She also had a stenosis of the graft vein anastomosis. The central stenosis was dilated with a 12 mm balloon and the peripheral stenosis was dilated with 10 mm balloon. Her flow volume measured today is between 961-1001 mL/min. Diagnostic findings We would the Discussed above Assessment: Juliet Dunlap is a 87 y.o. female who has not been seen for quite some time. Her rested onphysical exam today suggests that she is probably has a recurrence of her central stenosis. I told her that we will plan on setting her up with the interventional radiology for evaluation soon. If she indeed has recurrence her central stenosis will be dilated at the same setting. We will plan on seeing her in the follow-up clinic thereafter. If he has any issues in the interim she needs to call our office. P.S. Voice recognition software Blaze DFM Direct was used dictate and transcribe this document. Land Management Supervisor variances may occur. Despite proofreading, typographical errors may occur. Arturo Khan MD. PhD 02/01/2023 I discussed the situation with my interventional colleagues and set her up for a procedure which was done on 01/26/2023. I discussed the procedure with the interventionalist involved and independently reviewed them. She had a stenosis of the brachiocephalic at the confluence of SVC which was successfully dilated with a 12 mm balloon and a DCB was applied. She had also a secondary stenosis at the swing point area which was dilated with a 10 mm balloon with a 10 mm DCB. The radiological imaging outcome appeared very good at the end of the procedure documented in this encounter Plan of Treatment Not on file documented as of this encounter Procedures Procedure Name Priority Date/Time Associated Diagnosis Comments POCUS DUPLEX SCAN OF HD ACCESS Schedule Routine, Read Routine (OP Routine) 01/09/2023 2:10 PM CDT ESRD (end stage renal disease) (CMS/HCC) ([facility]) documented in this encounter Results * POCUS [...] stage renal disease documented in this encounter Historical Medications * This list may reflect changes made after this encounter. Eliquis 5 mg tablet Take 1 tablet (5 mg total) by mouth 2 (two) times a day 12/23/2022 07/16/2023 added in this encounter Orders Outpatient Referral Count Last Ordered Date Fir st Ordered Date AMB REFERRAL TO ADULT KIDNEY TRANSPLANT 1 0 01/09/2023 documented in this encounter Care Teams Taste Tester Relationship Specialty Start Date End Date Fadi Clemons DO [address] [address] PCP - General Family Medicine 11/03/22 Regina Contreras, RN Port Cdl A Driver 12/07/19 Charly Biggs MD [address] [address] Consulting Physician Internal Medicine 03/28/20 documented as of this encounter
--- OUTSIDE RECORDS SUMMARY | 2024-06-27 01:51 | XMS_ITS | Encounter Summary ---
Author Organization [facility] Address [address] [place] [address] Care Team Providers Care Customer Solutions Specialist Name Role Phone Regina Contreras RN Unavailable [phone] Charly Biggs MD Unavailable [phone] Fadi Clemons DO Primary Care Provider [phone] Encounter Details Date Type Department Care Team (Late st Contact Info) Description 11/03/2022 Telephone [facility] Transplant Kidney [address] [facility] [address] Mail[address] [phone] [place] [address] Regina Contreras, DEREK Social History Tobacco Use Types Packs/Day Years Used Date Smoking Tobacco: Never Smokeless Tobacco: Never Alcohol Use Standard Drinks/Week Comments No 0 (1 standard drink = 0.6 oz pur e alcohol) Comments No Sex and Gender Information Value Date Recorded Sex Assigned at Not on file 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 She wanted me to reach out to your team and let you know she's willing to be admitted for IV antibiotics as recommended by her doctor for her UTI. She'd appreciate a call back from someone on your team to discuss how to proceed. Thank you! Elida Contreras RN: Pt should have taken Cipro for her UTI. Called pt to discuss. States she is still taking her Cipro,will complete course and let me know if she develops UTI symptoms. documented in this encounter Plan of Treatment Not on file documented as of this encounter Visit Diagnoses Not on filedocumented in this encounter Additional Health Concerns Infection Onset Date Last Indicated Resolved Time COVID: Recovered Comment:Added based on recent COVID infection. 10/09/2022 10/17/2022 01/07/2023 3:05 AM C DT documented as of this encounter Care Teams Customer Solutions Specialist Relationship Specialty Start Date End Date Fadi Clemons DO [address] [address] PCP - General Family Medicine 11/03/22 Regina Contreras RN President Trust Company 12/07/19 Charly Biggs MD [address] [address] Consulting Physician Internal Medicine 03/28/20 documented as of this encounter
--- OUTSIDE RECORDS SUMMARY | 2024-06-27 01:51 | XMS_ITS | Encounter Summary ---
Author Organization [facility] Address [address] [place] [address] Care Team Providers Care Media Job Titles Name Role Phone Regina Contreras RN Unavailable [phone] Charly Biggs MD Unavailable [phone] Fadi Clemons DO Primary Care Provider [phone] Encounter Details Date Type Department Care Team (Late st Contact Info) Description 11/18/2022 Telephone [facility] and [facility] Transplant Kidney [address] [facility] [address] Mail[address] [phone] [place] [address] Liss Huynh Social History Tobacco Use Types Packs/Day Years Used Date Smoking Tobacco: Never Smokeless Tobacco: Never Alcohol Use Standard Drinks/Week Comments No 0 (1 standard drink = 0.6 oz pur e alcohol) Comments No Sex and Gender Information Value Date Recorded Sex Assigned at Not on file 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 is now home furosemide and eliquis are both of these okay for her to use. Elida Contreras RN: Called them to let her know those were fine. Asked for her to let me know about her doses so I can add them to her med list. Will let me know once she has them in front of her. documented in this encounter Plan of Treatment Not on file documented as of this encounter Visit Diagnoses Not on filedocumented in this encounter Additional Health Concerns Infection Onset Date Last Indicated Resolved Time COVID: Recovered Comment:Added based on recent COVID infection. 10/09/2022 10/17/2022 01/07/2023 3:05 AM C DT documented as of this encounter Care Teams Media Job Titles Relationship Specialty Start Date End Date Fadi Clemons DO [address] [address] PCP - General Family Medicine 11/03/22 Regina Contreras, RN Forger Helper 12/07/19 Charly Biggs MD [address] [address] Consulting Physician Internal Medicine 03/28/20 documented as of this encounter
--- OUTSIDE RECORDS SUMMARY | 2024-06-27 01:51 | XMS_ITS | Encounter Summary ---
Author Organization [facility] Address [address] [place] [address] Care Team Providers Care Med Spa Manager Name Role Phone Regina Contreras RN Unavailable [phone] Merlin Biggs MD Primary Care Provider [phone] Charly Biggs MD Unavailable [phone] Encounter Details Date Type Department Care Team (Late st Contact Info) Description 10/06/2022 Telephone [facility] Transplant Kidney [address] [address] Mail[address] [phone] [place] [address] Paola Guillory Social History Tobacco Use Types Packs/Day Years Used Date Smoking Tobacco: Never Smokeless Tobacco: Never Alcohol Use Standard Drinks/Week Comments No 0 (1 standard drink = 0.6 oz pur e alcohol) Comments No Sex and Gender Information Value Date Recorded Sex Assigned at Not on file 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 documented in this encounter Plan of Treatment Not on file documented as of this encounter Visit Diagnoses Not on filedocumented in this encounter Additional Health Concerns Infection Onset Date Last Indicated Resolved Time COVID19 09/19/2022 09/19/2022 10/09/2022 3:05 AM CDT documented as of this encounter Care Teams Med Spa Manager Relationship Specialty Start Date End Date Merlin Biggs MD [address] [place] [address] PCP - General Internal Medicine 02/20/20 11/02/22 Regina Contreras, RN Crotch Piece Baster 12/07/19 Charly Biggs MD [address] [address] Consulting Physician Internal Medicine 03/28/20 documented as of this encounter
--- OUTSIDE RECORDS SUMMARY | 2024-06-27 01:51 | XMS_ITS | Encounter Summary ---
Author Organization [facility] Address [address] [place] [address] Care Team Providers Care Sales Representative Girls' Apparel Name Role Phone Regina Contreras RN Unavailable [phone] Merlin Biggs MD Primary Care Provider [phone] Charly Biggs MD Unavailable [phone] Encounter Details Date Type Department Care Team (Latest Contact Info) Description 10/23/2022 11:20 AM CDT - 10/23/2022 11:59 PM CDT Hospital Encounter [address] [address] Kidney replaced by transplant; Acute cystitis without hematuria Discharge Disposition: Discharge to home or self care Social History Tobacco Use Types Packs/Day Years Used Date Smoking Tobacco: Never Smokeless Tobacco: Never Alcohol Use Standard Drinks/Week Comments No 0 (1 standard drink = 0.6 oz pur e alcohol) Comments No Sex and Gender Information Value Date Recorded Sex Assigned at Not on file 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 3 biotin 2,500 mcg capsule Take 1 capsule by mouth daily 4 levothyroxine (SYNTHROID) 100 mcg tablet Take 1 tablet (100 mcg total) by mouth obstetrician gynecologist before breakfast 30 tablet 11 10/17/2022 4 [...] AND REFLEX TO MICROSCOPIC AND CULTURE Routine 10/23/2022 12:46 PM CDT Kidney replaced by transplant Acute cystitis without hematuria URINALYSIS, MICROSCOPIC ONLY Routine 10/23/2022 12:46 PM CDT Kidney replaced by transplant Acute cystitis without hematuria URINE CULTURE Routine 10/23/2022 12:46 PM CDT documented in this encounter Results * (ABNORMAL) Urine culture Urine, clean voided (10/23/2022 12:46 PM CDT) Report Final Report: Greater than or equal to 100,000 colonies/mL of Pseudomonas aeruginosa Plus growth of clinically insignificant bacterial zander. (.) [facility] Organism PSEUDOMONAS AERUGINOSA [facility] Organism PLUS GROWTH OF CLINICALLY INSIGNIFICANT ZANDER. [facility] Urine, clean voided 10/23/2022 12:46 PM CDT 10/23/2022 3:32 PM CDT Narrative [facility] - 10/26/2022 12:35 PM CDT Urine culture reflexed based upon urinalysis results. Testing performed by [facility] ([phone]) Organism Antibiotic Method Susceptibility Pseudomonas aeruginosa Aztreonam INTERPRETATION Susceptible Pseudomonas aeruginosa Ceftazidime INTERPRETATION Susceptible Pseudomonas aeruginosa Ciprofloxacin INTERPRETATION Susceptible Pseudomonas aeruginosa Cefepime INTERPRETATION Susceptible Pseudomonas aeruginosa Gentamicin INTERPRETATION Susceptible Pseudomonas aeruginosa Imipenem INTERPRETATION Susceptible Pseudomonas aeruginosa Meropenem INTERPRETATION Susceptible Pseudomonas aeruginosa Piperacillin/Tazobactam INTERPR ETATION Susceptible Pseudomonas aeruginosa Tobramycin INTERPRETATION Susceptible Pseudomonas aeruginosa Cefiderocol INTERPRETATION Intermediate us Kirstin Mcqueen MD LAB MICROBIOLOGY - GENERAL ORDERABLES Final Result [facility] Department [place] [address] * (ABNORMAL) Urinalysis, microscopic only (10/23/2022 12:46 PM CDT) WBC, ur >50(A) 0 - 5 /HPF [facility] RBC, ur 3-5(A) 0 - 2 /HPF [facility] Epithelial cells, squamous, ur 1-5 0 - 5 /HPF [facility] Mucous, ur Present(A) [facility] Culture Reflex Comment Reflex to urine culture will be performed. [facility] Urine, clean voided 10/23/2022 12:46 PM CDT 10/23/2022 1:36 PM CDT Kirstin Mcqueen MD LAB URINE ORDERABLE S Final Result Performing Organization Address [facility]/ZIP Co de Phone Number [facility] Department [place] [address] * (ABNORMAL) Urinalysis reflex to microscopic and culture Urine, clean voided (10/23/2022 12:46 PM CDT) Color, ur Yellow Yellow [facility] Clarity, ur Clear Clear [facility] Specific gravity, ur 1.025 1.003 - 1.030 [facility] pH, urine 6.0 [facility] Protein, ur ql Trace Negative [facility] Glucose, ur ql Negative Negative [facility] Ketones, ur Negative Negative [facility] Bilirubin, ur Negative Negative [facility] Blood, ur Negative Negative [facility] Urobilinogen, ur <2.0 <2.0 mg/dL [facility] Nitrite, ur Positive(A) Negative [facility] Leukocyte esterase, ur 3+(A) Negative [facility] UA reflex comment Reflex to microscopic UA will be performed. [facility] Urine, clean voided 10/23/2022 12:46 PM CDT 10/23/2022 1:36 PM CDT Narrative [facility] - 10/23/2022 1:52 PM CDT ?? Urine pH is affected by diet, medications, systemic acid-base disturbances, and renal tubular function. ??pH may affect urinary stone formation. ??For example, urine pH below 6.0 may help reduce the tendency for calcium phosphate stones and pH greater than 6.0 may reduce the tendency for uric acid stone formation. Source: [employer]. Last revised 07-16-2017 Kirstin Mcqueen MD LAB MICROBIOLOGY - GENERAL ORDERABLES Final Result Performing Organization Address [facility] Co de Phone Number [facility] Department [place] [address] documented in this encounter Visit Diagnoses Diagnosis Kidney replaced by transplant Acute cystitis without hematuria documented in this encounter Additional Health Concerns Infection Onset Date Last Indicated Resolved Time COVID: Recovered Comment:Added based on recent COVID infection. 10/09/2022 10/17/2022 01/07/2023 3:05 AM C DT documented as of this encounter Care Teams Sales Representative Girls' Apparel Relationship Specialty Start Date End Date Merlin Biggs MD [address] [place] [address] PCP - General Internal Medicine 02/20/20 11/02/22 Regina Contreras, RN Sparker And Patcher 12/07/19 Charly Biggs MD [address] [address] Consulting Physician Internal Medicine 03/28/20 documented as of this encounter
--- OUTSIDE RECORDS SUMMARY | 2024-06-27 01:52 | XMS_ITS | Encounter Summary ---
Author Organization [facility] Address [address] [place] [address] Phone Care Team Providers Care Chief Learning Officer Name Role Phone Regina Contreras RN Unavailable [phone] Merlin Biggs MD Primary Care Provider [phone] Charly Biggs MD Unavailable [phone] Encounter Details Date Type Department Care Team (Late st Contact Info) Description 05/16/2022 Documentation [facility] Nephrology [address] [facility] 5th [place] [address] [place] [address] Nixon Hawkins MD [address] [place] [address] Social History Tobacco Use Types Packs/Day Years Used Date Smoking Tobacco: Never Smokeless Tobacco: Never Alcohol Use Standard Drinks/Week Comments No 0 (1 standard drink = 0.6 oz pur e alcohol) Comments No Sex and Gender Information Value Date Recorded Sex Assigned at Not on file 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 Pt will hydrate, hold her Vit D3, and go to labfor UCx given nitrites in urine. Continues to deny LUTS or fever but as still having some JUSTYN, willwork-up for possible infection now in case the event that febrile sx evolve. Pt verbalized understanding. E LINING DRILLER documented in this encounter Plan of Treatment Not on file documented as of this encounter Visit Diagnoses Not on filedocumented in this encounter Care Teams Chief Learning Officer Relationship Specialty Start Date End Date Merlin Biggs MD [address] [place] [address] PCP - General Internal Medicine 02/20/20 11/02/22 Regina Contreras, RN Underwriting Clerk 12/07/19 Charly Biggs MD [address] [address] Consulting Physician Internal Medicine 03/28/20 documented as of this encounter
--- OUTSIDE RECORDS SUMMARY | 2024-06-27 01:52 | XMS_ITS | Encounter Summary ---
Author Organization [facility] Address [address] [place] [address] Care Team Providers Care University Internship Name Role Phone Regina Contreras RN Unavailable [phone] Merlin Biggs MD Primary Care Provider [phone] Charly Biggs MD Unavailable [phone] Encounter Details Date Type Department Care Team (Late st Contact Info) Description 07/09/2022 Orders Only [facility] Information Management [address] [place] [address] Scanning, Provider Social History Tobacco Use Types Packs/Day Years Used Date Smoking Tobacco: Never Smokeless Tobacco: Never Alcohol Use Standard Drinks/Week Comments No 0 (1 standard drink = 0.6 oz pur e alcohol) Comments No Sex and Gender Information Value Date Recorded Sex Assigned at Not on file Legal Sex 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 MEDICAL RECORDS FIELD TECHNICIAN Gender Identity Not on file Sexual Orientation Not on file documented as of this encounter Plan of Treatment Not on file documented as of this encounter Procedures Procedure Name Priority Date/Time Associated Diagnosis Comments SCAN - LABS 07/09/2022 11:08 AM MEDICAL RECORDS FIELD TECHNICIAN documented in this encounter Results * SCAN - LABS (07/09/2022 11:08 AM MEDICAL RECORDS FIELD TECHNICIAN) us Provider Scanning Final Result documented in this encounter Visit Diagnoses Not on filedocumented in this encounter Care Teams University Internship Relationship Specialty Start Date End Date Merlin Biggs MD [address] [place] [address] PCP - General Internal Medicine 02/20/20 11/02/22 Regina Contreras, RN Production Laborer 12/07/19 Charly Biggs MD [address] [address] Consulting Physician Internal Medicine 03/28/20 documented as of this encounter
--- OUTSIDE RECORDS SUMMARY | 2024-06-27 01:52 | XMS_ITS | Encounter Summary ---
Author Organization [facility] Address [address] [place] [address] Care Team Providers Care Coin Machine Assembler Name Role Phone Regina Contreras RN Unavailable [phone] Merlin Biggs MD Primary Care Provider [phone] Charly Biggs MD Unavailable [phone] Encounter Details Date Type Department Care Team (Late st Contact Info) Description 09/06/2022 Orders Only [facility] Information Management [address] [place] [address] Scanning, Provider Social History Tobacco Use Types Packs/Day Years Used Date Smoking Tobacco: Never Smokeless Tobacco: Never Alcohol Use Standard Drinks/Week Comments No 0 (1 standard drink = 0.6 oz pur e alcohol) Comments No Sex and Gender Information Value Date Recorded Sex Assigned at Not on file Legal Sex 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 PAYROLL TAX SPECIALIST Gender Identity Not on file Sexual Orientation Not on file documented as of this encounter Plan of Treatment Not on file documented as of this encounter Procedures Procedure Name Priority Date/Time Associated Diagnosis Comments SCAN - LABS 09/06/2022 3:38 PM PAYROLL TAX SPECIALIST documented in this encounter Results * SCAN - LABS (09/06/2022 3:38 PM PAYROLL TAX SPECIALIST) us Provider Scanning Final Result documented in this encounter Visit Diagnoses Not on filedocumented in this encounter Care Teams Coin Machine Assembler Relationship Specialty Start Date End Date Merlin Biggs MD [address] [place] [address] PCP - General Internal Medicine 02/20/20 11/02/22 Regina Contreras, RN Diversity Manager 12/07/19 Charly Biggs MD [address] [address] Consulting Physician Internal Medicine 03/28/20 documented as of this encounter
--- OUTSIDE RECORDS SUMMARY | 2024-06-27 01:52 | XMS_ITS | Encounter Summary ---
Author Organization [facility] Address [address] [place] [address] Care Team Providers Care Gift Manager Name Role Phone Regina Calabrese RN Unavailable Merlin Biggs MD Primary Care Provider [phone] Charly Biggs MD Unavailable [phone] Encounter Details Date Type Department Care Team (Late st Contact Info) Description 05/23/2022 Telephone [facility] Transplant Kidney [address] [address] [phone] [place] [address] Liss Huynh Social History Tobacco Use Types Packs/Day Years Used Date Smoking Tobacco: Never Smokeless Tobacco: Never Alcohol Use Standard Drinks/Week Comments No 0 (1 standard drink = 0.6 oz pur e alcohol) Comments No Sex and Gender Information Value Date Recorded Sex Assigned at Not on file Legal Sex 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 BUDGET CONSULTANT Gender Identity Not on file Sexual Orientation Not on file documented as of this encounter Ordered Prescriptions Prescription Sig Dispense Quantity Refills Last Filled Start Date End Date predniSONE (DELTASONE) 5 mg tabletIndications: Kidney replaced by transplant Take 1 tablet (5 mg) by mouth daily 30 tablet 11 05/23/2022 07/07/2023 documented in this encounter Miscellaneous Notes * Addendum Note - Regina Calabrese RN - 05/23/2022 10:49 AM CSTAddended by: REGINA CALABRESE on: 05/23/2022 10:49 AM Modules accepted: Orders ET CONSULTANT * Telephone Encounter - Liss Huynh - 05/23/2022 10:44 AM CST Alena called needing refill on Pred 5 mg, 30 day supply with refills. Please send. 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
--- OUTSIDE RECORDS SUMMARY | 2024-06-27 01:52 | XMS_ITS | Encounter Summary ---
Author Organization [facility] Address [address] [facility] [place] [address] Care Team Providers Care Clinical Services Director Name Role Phone Regina Contreras RN Unavailable [phone] Merlin Biggs MD Primary Care Provider [phone] Charly Biggs MD Unavailable [phone] Reason for Visit * Reason Onset Date Comments Covid-19 Home Monitoring 09/25/2022 Encounter Details Date Type Department Care Team (Late st Contact Info) Description 09/25/2022 Telephone [facility] Accountable Care Organization [address] [place] [address] Thelma Santos MA [address] [place] [address] [address] [place] [address] Covid-19 Home Monitoring Social History Tobacco Use Types Packs/Day Years Used Date Smoking Tobacco: Never Smokeless Tobacco: Never Alcohol Use Standard Drinks/Week Comments No 0 (1 standard drink = 0.6 oz pur e alcohol) Comments No Sex and Gender Information Value Date Recorded Sex Assigned at Not on file Legal Sex 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 ACADEMIC ADVISOR Gender Identity Not on file Sexual Orientation Not on file documented as of this encounter Miscellaneous Notes * Telephone Encounter - Thelma Santos MA - 09/25/2022 9:12 AM CDT This patient has enrolled in the PHONE ONLY version of COVID-19 Home Monitoring Program. COVID-19 Symptom questionnaire was completed today. Symptoms were addressed to be Mild. Escalation was not needed. COVID-19 Home Monitoring Flowsheet Answers: Temp/Pulse Ox Temp: (no fever) Symptom Monitoring Are you feeling short of breath today?: No Are you having a cough today?: No Are you experiencing weakness today?: Yes Weakness Details:: Better How is your appetite compared to yesterday?: Unchanged Are you vomiting?: No Are you experiencing diarrhea? : No This patient is being disenrolled from the phone-only version of the COVID-19 home monitoring program for the following reason: Complete The patient has either completed the full 14-day program or has expressed 3 days of improved or no symptoms and 7 days since initial onset. We recommend that they are scheduled for a telemedicine evaluation with a primary care provider within 3 days of completion of the program. For questions or concerns about the home monitoring program, please contact . documented in this encounter Plan of Treatment Not on file documented as of this encounter Visit Diagnoses Not on filedocumented in this encounter Additional Health Concerns Infection Onset Date Last Indicated Resolved Time COVID19 09/19/2022 09/19/2022 10/09/2022 3:05 AM CDT documented as of this encounter Care Teams Clinical Services Director Relationship Specialty Start Date End Date Merlin Biggs MD [address] [place] [address] PCP - General Internal Medicine 02/20/20 11/02/22 Regina Contreras, DEREK Automotive Painter Helper 12/07/19 Charly Biggs MD [address] [address] Consulting Physician Internal Medicine 03/28/20 documented as of this encounter
--- OUTSIDE RECORDS SUMMARY | 2024-06-27 01:52 | XMS_ITS | Encounter Summary ---
Author Organization [facility] Address [address] [place] [address] Care Team Providers Care Surgical Training Specialist Name Role Phone Regina Contreras RN Unavailable [phone] Merlin Biggs MD Primary Care Provider [phone] Charly Biggs MD Unavailable [phone] Encounter Details Date Type Department Care Team (Late st Contact Info) Description 09/08/2022 Telephone [facility] Transplant Kidney [address] [address] Mailstop [phone] [place] [address] Arabella Hartman Social History Tobacco Use Types Packs/Day Years Used Date Smoking Tobacco: Never Smokeless Tobacco: Never Alcohol Use Standard Drinks/Week Comments No 0 (1 standard drink = 0.6 oz pur e alcohol) Comments No Sex and Gender Information Value Date Recorded Sex Assigned at Not on file Legal Sex 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 FASHION COORDINATOR Gender Identity Not on file Sexual Orientation Not on file documented as of this encounter Miscellaneous Notes * Telephone Encounter - Arabella Hartman - 09/08/2022 10:34 AM CST When pt called in today and left her vitals on the machine she also advised that she had to have emergency plastic surgery and that is why she hasn't gotten her labs done the last couple of months. She hasn't felt very well. Elida Contreras RN: Called pt back to discuss. States she had labs drawn on Wednesday 09/06 and wanted to know if she needs to have labs drawn before October or if she can wait until October. Let her know she can go in October and get back on track for monthly labs. Will be on the look out for labs from Thursday pt states she was not drinking much water after her recent surgery. ION COORDINATOR ION COORDINATOR documented in this encounter Plan of Treatment Not on file documented as of this encounter Visit Diagnoses Not on filedocumented in this encounter Care Teams Surgical Training Specialist Relationship Specialty Start Date End Date Merlin Biggs MD [address] [place] [address] PCP - General Internal Medicine 02/20/20 11/02/22 Regina Contreras RN Transplanter 12/07/19 Charly Biggs MD [address] [address] Consulting Physician Internal Medicine 03/28/20 documented as of this encounter
--- OUTSIDE RECORDS SUMMARY | 2024-06-27 01:52 | XMS_ITS | Encounter Summary ---
Author Organization [facility] Address [address] [place] [address] Care Team Providers Care Income Tax Preparer Name Role Phone Regina Calabrese RN Unavailable Merlin Biggs MD Primary Care Provider [phone] Charly Biggs MD Unavailable [phone] Encounter Details Date Type Department Care Team (Late st Contact Info) Description 05/15/2022 Telephone [facility] Transplant Kidney [address] [address] Mailstop [phone] [place] [address] Hernando Davila Social History Tobacco Use Types Packs/Day Years Used Date Smoking Tobacco: Never Smokeless Tobacco: Never Alcohol Use Standard Drinks/Week Comments No 0 (1 standard drink = 0.6 oz pur e alcohol) Comments No Sex and Gender Information Value Date Recorded Sex Assigned at Not on file Legal Sex 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 RADIOLOGIC TECHNICIAN Gender Identity Not on file Sexual Orientation Not on file documented as of this encounter Ordered Prescriptions Prescription Sig Dispense Quantity Refills Last Filled Start Date End Date acyclovir (ZOVIRAX) 200 mg capsule Take 1 capsule (200 mg total) by mouth 2 (two) times a day 60 capsule 11 05/16/2022 3 documented in this encounter Miscellaneous Notes * Telephone Encounter - Paola Guillory - 05/16/2022 11:05 AM CST Standing orders updated to monthly and quarterly, faxed to [facility]. OLOGIC TECHNICIAN * Addendum Note - Regina Calabrese RN - 05/16/2022 9:13 AM CSTAddended by: REGINA CALABRESE on: 05/16/2022 09:13 AM Modules accepted: Orders OLOGIC TECHNICIAN * Telephone Encounter - Hernando Davila - 05/15/2022 3:57 PM CST Pt was advised by Manuel in [place], [place] that acyclovir has been discontinued. Was not advised to stop taking this medication. Please call to discuss. Pt has few pills remaining. Elida Calabrese RN: Called pt to discuss. Would like new script sent to Acyclovir. Pt should continue this. Pt will also return to the lab for the UA. Sent order to local lab. Pt also needs standing order updated for monthly and quarterly lab orders. 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
--- OUTSIDE RECORDS SUMMARY | 2024-06-27 01:52 | XMS_ITS | Encounter Summary ---
Author Organization [facility] Address [address] [facility] [address] [place] [address] Care Team Providers Care Sign Writer Letterer Or Painter Name Role Phone Regina Contreras RN Unavailable Merlin Biggs MD Primary Care Provider [phone] Charly Biggs MD Unavailable [phone] Reason for Visit * Reason Onset Date Comments Covid-19 Home Monitoring 09/21/2022 Encounter Details Date Type Department Care Team (Late st Contact Info) Description 09/21/2022 Telephone [facility] Accountable Care Organization [address] [place] [address] Rebecca Philip LPN [address] [place] [address] Covid-19 Home Monitoring Social History Tobacco Use Types Packs/Day Years Used Date Smoking Tobacco: Never Smokeless Tobacco: Never Alcohol Use Standard Drinks/Week Comments No 0 (1 standard drink = 0.6 oz pur e alcohol) Comments No Sex and Gender Information Value Date Recorded Sex Assigned at Not on file Legal Sex 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 OIL TRANSPORT DRIVER Gender Identity Not on file Sexual Orientation Not on file documented as of this encounter Miscellaneous Notes * Telephone Encounter - Rebecac Ortiz LPN - 09/21/2022 9:42 AM CDT COVID-19 Home Monitoring Flowsheet Answers: Temp/Pulse Ox Symptom Monitoring Are you feeling short of breath today?: No Are you having a cough today?: Yes Cough Details:: Same Are you experiencing weakness today?: Yes Weakness Details:: Same How is your appetite compared to yesterday?: Worse Are you vomiting?: No Are you experiencing diarrhea? : No This patient has enrolled in the PHONE ONLY version of COVID-19 Home Monitoring Program. COVID-19 Symptom questionnaire was completed today. Symptoms were addressed to be Mild. Escalation was not needed. Next Program Call Due: 09/22 documented in this encounter Plan of Treatment Not on file documented as of this encounter Visit Diagnoses Not on filedocumented in this encounter Additional Health Concerns Infection Onset Date Last Indicated Resolved Time COVID19 09/19/2022 09/19/2022 10/09/2022 3:05 AM CDT documented as of this encounter Care Teams Sign Writer Letterer Or Painter Relationship Specialty Start Date End Date Merlin Biggs MD [address] [place] [address] PCP - General Internal Medicine 02/20/20 11/02/22 Regina Contreras, RN Supervisor Contact Lens 12/07/19 Charly Biggs MD [address] [address] Consulting Physician Internal Medicine 03/28/20 documented as of this encounter
--- OUTSIDE RECORDS SUMMARY | 2024-06-27 01:52 | XMS_ITS | Encounter Summary ---
Author Organization [facility] Medical [facility] Address [address] [facility] [address] [place] [address] Care Team Providers Care Glass Cut Off Tender Name Role Phone Regina Contreras RN Unavailable [phone] Merlin Biggs MD Primary Care Provider [phone] Charly Biggs MD Unavailable [phone] Encounter Details Date Type Department Care Team (Late st Contact Info) Description 06/13/2022 1:45 PM ASSOCIATE BROKER Lab [facility] Medical [facility] Outpatient Lab at [address] [address] Type 2 diabetes mellitus with diabetic polyneuropathy, with long-term current use of insulin ([facility]/HCC) (HCC) Social History Tobacco Use Types Packs/Day Years Used Date Smoking Tobacco: Never Smokeless Tobacco: Never Alcohol Use Standard Drinks/Week Comments No 0 (1 standard drink = 0.6 oz pur e alcohol) Comments No Sex and Gender Information Value Date Recorded Sex Assigned at Not on file Legal Sex 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 ASSOCIATE BROKER Gender Identity Not on file Sexual Orientation Not on file documented as of this encounter Plan of Treatment Not on file documented as of this encounter Visit Diagnoses Diagnosis Type 2 diabetes mellitus with diabetic polyneuropathy, with long-term current use of insulin (HCC) documented in this encounter Care Teams Glass Cut Off Tender Relationship Specialty Start Date End Date Merlin Biggs MD [address] [place] [address] PCP - General Internal Medicine 02/20/20 11/02/22 Regina Contreras, DEREK Slip Mixer 12/07/19 Charly Biggs MD [address] [address] Consulting Physician Internal Medicine 03/28/20 documented as of this encounter
--- OUTSIDE RECORDS SUMMARY | 2024-06-27 01:52 | XMS_ITS | Encounter Summary ---
Author Organization [facility] Healthcare Address [address] [place] [address] Care Team Providers Care Fitter Machinist Name Role Phone Regina Calabrese RN Unavailable Merlin Biggs MD Primary Care Provider [phone] Charly Biggs MD Unavailable [phone] Encounter Details Date Type Department Care Team (Late st Contact Info) Description 06/03/2022 Telephone [facility] Transplant Kidney [address] [address] Mailstop [phone] [place] [address] Paola Guillory Social History Tobacco Use Types Packs/Day Years Used Date Smoking Tobacco: Never Smokeless Tobacco: Never Alcohol Use Standard Drinks/Week Comments No 0 (1 standard drink = 0.6 oz pur e alcohol) Comments No Sex and Gender Information Value Date Recorded Sex Assigned at Not on file Legal Sex 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 INHALATION THERAPY TEACHER Gender Identity Not on file Sexual Orientation Not on file documented as of this encounter Miscellaneous Notes * Addendum Note - Radha Johnson - 06/13/2022 1:44 PM CSTAddended by: RADHA JOHNSON on: 06/13/2022 01:44 PM Modules accepted: Orders LATION THERAPY TEACHER * Addendum Note - Regina Calabrese RN - 06/03/2022 11:50 AM CSTAddended by: REGINA CALABRESE on: 06/03/2022 11:50 AM Modules accepted: Orders LATION THERAPY TEACHER * Addendum Note - Regina Calabrese RN - 06/03/2022 10:28 AM CSTAddended by: REGINA CALABRESE on: 06/03/2022 10:28 AM Modules accepted: Orders LATION THERAPY TEACHER * Telephone Encounter - Paola Guillory - 06/03/2022 10:19 AM CST Patient called to speak with you. However, she stated she didn't know who her Coordinator is and hasn't spoken with you before. Although it's noted in the chart that she has. Patient also stated that she didn't know what to do about infection discussed with Dr. Hawkins. She was advised that antibiotic was sent to the pharmacy. Patient stated that she's allergic to Cipro and didn't obtain Rx. Elida Calabrese RN: Called pt back to discuss. States that she is allergic to Cipro, Alena has it on her Allergies list. Let her know that it is not listed in her allergies. States she is not having any symptoms at all of a UTI. States she usually is very sick when she has a UTI. Wanted to know how to proceed and if she needs another treatment, never started the Cipro. Will discuss with team. Will also add Ciproto allergies list. Pt is unsure what her reaction is to Cipro. Dr. Mota: Repeat UA/UC at [facility], they will be able to run for more antibiotic options. If she develops symptoms make sure she let's us know. Elida Calabrese RN: Called pt to let her know. States she will go this week. Placed order at [facility] outpatient center in [place]. Faxed order as well as entered in [employer] as I could not find this location in [employer]. Will await results. LATION THERAPY TEACHER LATION THERAPY TEACHER LATION THERAPY TEACHER LATION THERAPY TEACHER LATION THERAPY TEACHER documented in this encounter Plan of Treatment Not on file documented as of this encounter Results * (ABNORMAL) Urinalysis reflex to microscopic and culture Urine, clean voided (06/13/2022 1:44 PM INHALATION THERAPY TEACHER) Color, ur Yellow Yellow [facility] Clarity, ur Clear Clear [facility] CH Specific gravity, ur 1.027 1.003 - 1.030 CERNER CH pH, urine 5.5 [facility]ER CH Protein, ur ql Negative Negative [facility] Glucose, ur ql 3+(A) Negative [facility] CH Ketones, ur Negative Negative [facility] Bilirubin, ur Negative Negative [facility] CH Blood, ur Trace(A) Negative [facility] Urobilinogen, ur 1.0 <2.0 mg/dL [facility] Nitrite, ur Positive(A) Negative [facility] Leukocyte esterase, ur Negative Negative [facility] CH UA reflex comment Reflex to microscopic UA will be performed. CERNER Urine, clean voided 06/13/2022 1:44 PM INHALATION THERAPY TEACHER 06/13/2022 6:30 PM INHALATION THERAPY TEACHER Narrative CERNER - 06/13/2022 7:45 PM INHALATION THERAPY TEACHER ?? Urine pH is affected by diet, medications, systemic acid-base disturbances, and renal tubular function. ??pH may affect urinary stone formation. ??For example, urine pH below 6.0 may help reduce the tendency for calcium phosphate stones and pH greater than 6.0 may reduce the tendency for uric acid stone formation. Source: [employer] 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 by transplant documented in this encounter Discontinued Medications Medication Sig Discontinue Reason Start Date End Da te ciprofloxacin (Cipro) 500 mg tablet Take 1 tablet (500 mg total) by mouth 2 (two) times a day for 10 days Therapy completed 05/26/2022 06/03/2022 documented as of this encounter Care Teams Fitter Machinist Relationship Specialty Start Date End Date Merlin Biggs MD [address] [place] [address] PCP - General Internal Medicine 02/20/20 11/02/22 Regina Calabrese, RN Service Car Operator 12/07/19 Charly Biggs MD [address] [address] Consulting Physician Internal Medicine 03/28/20 documented as of this encounter
--- OUTSIDE RECORDS SUMMARY | 2024-06-27 01:52 | XMS_ITS | Encounter Summary ---
Author Organization [facility] Medical [facility] Address [address] [facility] [address] [place] [address] Care Team Providers Care Drug Enforcement Agent Name Role Phone Regina Contreras RN Unavailable [phone] Merlin Biggs MD Primary Care Provider [phone] Charly Biggs MD Unavailable [phone] Reason for Visit * Reason Onset Date Comments Covid-19 Home Monitoring 09/22/2022 Encounter Details Date Type Department Care Team (Late st Contact Info) Description 09/22/2022 Telephone [facility] Accountable Care Organization [address] [place] [address] Thelma Santos MA [address] [place] [address] [address] [place] [address] Covid-19 Home Monitoring Social History Tobacco Use Types Packs/Day Years Used Date Smoking Tobacco: Never Smokeless Tobacco: Never Alcohol Use Standard Drinks/Week Comments No 0 (1 standard drink = 0.6 oz pur e alcohol) Comments No Sex and Gender Information Value Date Recorded Sex Assigned at Not on file 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 COVID-19 Symptom questionnaire was completed today. Symptoms were addressed to be Mild. Escalation was not needed. Next Program Call Due: 09/23 COVID-19 Home Monitoring Flowsheet Answers: Temp/Pulse Ox Temp: (no fever) Symptom Monitoring Are you feeling short of breath today?: No Are you having a cough today?: No Are you experiencing weakness today?: Yes Weakness Details:: Same How is your appetite compared to yesterday?: Unchanged Are you vomiting?: No Are you experiencing diarrhea? : No Patient is concerned with her kidney function, she has been drinking lots of water but not urinating much. Advised patient to keep track of how much she is drinking and contact her transplant team with any concerns with her kidneys or urination. Patient voices understanding. documented in this encounter Plan of Treatment Not on file documented as of this encounter Visit Diagnoses Not on filedocumented in this encounter Additional Health Concerns Infection Onset Date Last Indicated Resolved Time COVID19 09/19/2022 09/19/2022 10/09/2022 3:05 AM CDT documented as of this encounter Care Teams Drug Enforcement Agent Relationship Specialty Start Date End Date Merlin Biggs MD [address] [place] [address] PCP - General Internal Medicine 02/20/20 11/02/22 Regina Contreras, DEREK Senior Pensions Administrator 12/07/19 Charly Biggs MD [address] [address] Consulting Physician Internal Medicine 03/28/20 documented as of this encounter
--- OUTSIDE RECORDS SUMMARY | 2024-06-27 01:52 | XMS_ITS | Encounter Summary ---
Author Organization 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) Social History Tobacco Use Types Packs/Day Years Used Date Smoking Tobacco: Never Smokeless Tobacco: Never Alcohol Use Standard Drinks/Week Comments No 0 (1 standard drink = 0.6 oz pur e alcohol) Comments No Sex and Gender Information Value Date Recorded Sex Assigned at Not on file 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 Gender Identity Not on file Sexual Orientation Not on file documented as of this encounter Plan of Treatment Scheduled Orders Name Type Priority Associated Diagnoses Orde r Schedule Calcium level Lab Routine Kidney replaced by transplant Expected: 05/16/2022, Expires: 05/16/2023 Renal function panel Lab Routine Kidney replaced by transplant Expected: 05/16/2022, Expires: 05/16/2023 documented as of this encounter Visit Diagnoses Diagnosis Kidney replaced by transplant- Primary documented in this encounter Care Teams Slurry Tank Operator Relationship Specialty Start Date End Date Merlin Biggs MD [address] [place] [address] PCP - General Internal Medicine 02/20/20 11/02/22 Regina Contreras, RN Solar/Renewable Energy Sales 12/07/19 Charly Biggs MD [address] [address] Consulting Physician Internal Medicine 03/28/20 documented as of this encounter
--- OUTSIDE RECORDS SUMMARY | 2024-06-27 01:52 | XMS_ITS | Encounter Summary ---
Author Organization [facility] Address [address] [place] [address] Care Team Providers Care Nursery Nurse Name Role Phone Regina Contreras RN Unavailable [phone] Merlin Biggs MD Primary Care Provider [phone] Charly Biggs MD Unavailable [phone] Encounter Details Date Type Department Care Team (Late st Contact Info) Description 07/05/2022 Orders Only [facility] Health Information Management [address] [place] [address] Scanning, Provider Social History Tobacco Use Types Packs/Day Years Used Date Smoking Tobacco: Never Smokeless Tobacco: Never Alcohol Use Standard Drinks/Week Comments No 0 (1 standard drink = 0.6 oz pur e alcohol) Comments No Sex and Gender Information Value Date Recorded Sex Assigned at Not on file Legal Sex 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 FISH AND WILDLIFE WARDEN Gender Identity Not on file Sexual Orientation Not on file documented as of this encounter Plan of Treatment Not on file documented as of this encounter Procedures Procedure Name Priority Date/Time Associated Diagnosis Comments SCAN - LABS 07/05/2022 3:37 PM FISH AND WILDLIFE WARDEN SCAN - LABS 07/05/2022 11:58 AM FISH AND WILDLIFE WARDEN documented in this encounter Results * SCAN - LABS (07/05/2022 3:37 PM FISH AND WILDLIFE WARDEN) us Provider Scanning Final Result * SCAN - LABS (07/05/2022 11:58 AM FISH AND WILDLIFE WARDEN) us Provider Scanning Final Result documented in this encounter Visit Diagnoses Not on filedocumented in this encounter Care Teams Nursery Nurse Relationship Specialty Start Date End Date Merlin Biggs MD [address] [place] [address] PCP - General Internal Medicine 02/20/20 11/02/22 Regina Contreras, RN Hospice Massage Therapist 12/07/19 Charly Biggs MD [address] [address] Consulting Physician Internal Medicine 03/28/20 documented as of this encounter
--- OUTSIDE RECORDS SUMMARY | 2024-06-27 01:52 | XMS_ITS | Encounter Summary ---
Author Organization [facility] Medical Group Address [address] [facility] [address] [place] [address] Care Team Providers Care Molding Room Supervisor Name Role Phone Regina Contreras RN Unavailable [phone] Merlin Biggs MD Primary Care Provider [phone] Charly Biggs MD Unavailable [phone] Reason for Visit * Reason Onset Date Comments Covid-19 Home Monitoring 09/23/2022 Encounter Details Date Type Department Care Team (Late st Contact Info) Description 09/23/[address] 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 COVID-19 Symptom questionnaire was completed today. Symptoms were addressed to be Mild. Escalation was not needed. Next Program Call Due: 09/24 COVID-19 Home Monitoring Flowsheet Answers: Temp/Pulse Ox Temp: (no fever) Symptom Monitoring Are you feeling short of breath today?: No Are you having a cough today?: No Are you experiencing weakness today?: Yes Weakness Details:: Better How is your appetite compared to yesterday?: Unchanged Are you vomiting?: No Are you experiencing diarrhea? : No documented in this encounter Plan of Treatment Not on file documented as of this encounter Visit Diagnoses Not on filedocumented in this encounter Additional Health Concerns Infection Onset Date Last Indicated Resolved Time COVID19 09/19/2022 09/19/2022 10/09/2022 3:05 AM CDT documented as of this encounter Care Teams Molding Room Supervisor Relationship Specialty Start Date End Date Merlin Biggs MD [address] [place] [address] PCP - General Internal Medicine 02/20/20 11/02/22 Regina Contreras, RN Nick Setter 12/07/19 Charly Biggs MD [address] [address] Consulting Physician Internal Medicine 03/28/20 documented as of this encounter
--- OUTSIDE RECORDS SUMMARY | 2024-06-27 01:52 | XMS_ITS | Encounter Summary ---
Author Organization [facility] Address [address] [place] [address] Care Team Providers Care Business Banking Officer Name Role Phone Regina Contreras RN Unavailable Merlin Biggs MD Primary Care Provider [phone] Charly Biggs MD Unavailable [phone] Encounter Details Date Type Department Care Team (Late st Contact Info) Description 05/24/2022 Orders Only [facility] Health Information Management [address] [place] [address] Scanning, Provider Social History Tobacco Use Types Packs/Day Years Used Date Smoking Tobacco: Never Smokeless Tobacco: Never Alcohol Use Standard Drinks/Week Comments No 0 (1 standard drink = 0.6 oz pur e alcohol) Comments No Sex and Gender Information Value Date Recorded Sex Assigned at Not on file 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 Sex 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 Gender Identity Not on file Sexual Orientation Not on file documented as of this encounter Plan of Treatment Not on file documented as of this encounter Procedures Procedure Name Priority Date/Time Associated Diagnosis Comments SCAN - LABS 05/24/2022 3:41 PM BUTCHER 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 documented in this encounter Results * SCAN - LABS (05/24/2022 3:41 PM BUTCHER 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) us Provider Scanning Final Result documented in this encounter Visit Diagnoses Not on filedocumented in this encounter Care Teams Business Banking Officer Relationship Specialty Start Date End Date Merlin Biggs MD [address] [place] [address] PCP - General Internal Medicine 02/20/20 11/02/22 Regina Contreras, RN Hydraulic Oil Tool Operator 12/07/19 Charly Biggs MD [address] [address] Consulting Physician Internal Medicine 03/28/20 documented as of this encounter
--- OUTSIDE RECORDS SUMMARY | 2024-06-27 01:52 | XMS_ITS | Encounter Summary ---
Author Organization [facility] Medical Group Address [address] [facility] [address] [place] [address] Care Team Providers Care Activity Therapist Name Role Phone Regina Contreras RN Unavailable Merlin Biggs MD Primary Care Provider [phone] Charly Biggs MD Unavailable [phone] Reason for Visit * Reason Onset Date Comments Covid-19 Home Monitoring 09/20/2022 Enrollm ent day 1 Encounter Details Date Type Department Care Team (Late st Contact Info) Description 09/20/2022 Telephone [facility] Accountable Care Organization [address] [place] [address] Nadine Dowd LPN [address] [place] [address] [address] [place] [address] Covid-19 Home Monitoring (Enrollment day 1 ) Social History Tobacco Use Types Packs/Day Years Used Date Smoking Tobacco: Never Smokeless Tobacco: Never Alcohol Use Standard Drinks/Week Comments No 0 (1 standard drink = 0.6 oz pur e alcohol) Comments No Sex and Gender Information Value Date Recorded Sex Assigned at Not on file 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 : Yes Diarrhea Details:: Same This patient was identified as a candidate for the [facility] COVID home monitoring program. The patient was contacted via phone for enrollment in the program. The patient has declined to participate in the automated MyChart Optometric Aide Program, but has verbally agreed to the Phone Only Home Monitoring Program, which includes being contacted for a daily phone assessment by a [facility] staff member. The patient was informed that members of the healthcare team will contact them depending on the symptoms that they report. This call could come from a variety of phone numbers depending on which member of the healthcare team is contacting the patient, and the patient should be prepared to answer calls from a variety of phone numbers. If the patient is unable to be reached for 3 days, they will be disenrolled from the program. Patient is aware that we will try and reach them at every available phone number, including HIPAA contacts. After review, the patient agreed to participate. The ???COVID19 Home Monitoring?? order was placedto enroll the patient in the phone only version of the program. documented in this encounter Plan of Treatment Not on file documented as of this encounter Visit Diagnoses Not on filedocumented in this encounter Additional Health Concerns Infection Onset Date Last Indicated Resolved Time COVID19 09/19/2022 09/19/2022 10/09/2022 3:05 AM CDT documented as of this encounter Care Teams Activity Therapist Relationship Specialty Start Date End Date Merlin Biggs MD [address] [place] [address] PCP - General Internal Medicine 02/20/20 11/02/22 Regina Contreras, RN Residential Instructor 12/07/19 Charly Biggs MD [address] [address] Consulting Physician Internal Medicine 03/28/20 documented as of this encounter
--- OUTSIDE RECORDS SUMMARY | 2024-06-27 01:52 | XMS_ITS | Encounter Summary ---
Author Organization [facility] Healthcare Address [address] [place] [address] Care Team Providers Care Brick And Block Mason Name Role Phone Regina Contreras RN Unavailable [phone] Merlin Biggs MD Primary Care Provider [phone] Charly Biggs MD Unavailable [phone] Fadi Clemons DO Primary Care Provider [phone] Encounter Details Date Type Department Care Team (Late st Contact Info) Description 05/16/2022 Orders Only [facility] Transplant Kidney [address] [facility] [address] Mailstop [id number] [place] [address] Paola Guillory Kidney transplanted (Primary Dx); Hyperlipidemia, [...] file 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 Gender Identity Not on file Sexual Orientation Not on file documented as of this encounter Miscellaneous Notes * Addendum Note - Emily Lorenz CLT - 05/16/2022 11:02 AM CSTAddended by: EMILY LORENZ on: 01/23/2023 01:29 PM Modules accepted: Orders * Addendum Note - Emily Lorenz CLT - 05/16/2022 11:02 AM CSTAddended by: EMILY LORENZ on: 01/23/2023 01:29 PM Modules accepted: Orders documented in this encounter Plan of Treatment Not on file documented as of this encounter Visit Diagnoses Diagnosis Kidney transplanted- Primary Kidney replaced by transplant Hyperlipidemia, unspecified hyperlipidemia type Encounter for long-term (current) use of medications Encounter for long-term (current) use of other medications documented in this encounter Additional Health Concerns Infection Onset Date Last Indicated Resolved Time COVID19 09/19/2022 09/19/2022 10/09/2022 3:05 AM CDT COVID: Recovered Comment:Added based on recent COVID infection. 10/09/2022 10/17/2022 01/07/2023 3:05 AM C DT documented as of this encounter Care Teams Brick And Block Mason Relationship Specialty Start Date End Date Merlin Biggs MD [address] [place] [address] PCP - General Internal Medicine 02/20/20 11/02/22 Fadi Clemons DO [address] [address] PCP - General Family Medicine 11/03/22 Regina Contreras, DEREK Semiconductor Packages Leak Tester 12/07/19 Charly Biggs MD [address] [address] Consulting Physician Internal Medicine 03/28/20 documented as of this encounter
--- OUTSIDE RECORDS SUMMARY | 2024-06-27 01:52 | XMS_ITS | Encounter Summary ---
Author Organization [facility] Address [address] [place] [address] Care Team Providers Care Ladle Filler Name Role Phone Regina Contreras RN Unavailable [phone] Merlin Biggs MD Primary Care Provider [phone] Charly Biggs MD Unavailable [phone] Encounter Details Date Type Department Care Team (Late st Contact Info) Description 07/31/2022 Telephone [facility] Transplant Kidney [address] [facility] 340 Mailstop [id number] [place], [place] [id number] Liss Huynh Social History Tobacco Use Types Packs/Day Years Used Date Smoking Tobacco: Never Smokeless Tobacco: Never Alcohol Use Standard Drinks/Week Comments No 0 (1 standard drink = 0.6 oz pur e alcohol) Comments No Sex and Gender Information Value Date Recorded Sex Assigned at Not on file Legal Sex 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 AGRICULTURAL EXTENSION OFFICER Gender Identity Not on file Sexual Orientation Not on file documented as of this encounter Miscellaneous Notes * Telephone Encounter - Liss Huynh - 07/31/2022 9:01 AM CST Pt. Called and said that she had skin cancer removed, she will have another procedure with plastic surgery. She has been give pain medication acetaminophen with codeine. She wants to make sure this is okay to use. Also She will not be able to get labs this month. Plastic surgeon is Dr. Pang. Nikia Martinez RN: Called pt back she states she had some placed on her face she had it done a week ago today, he would need some plastic surgery, she is having a lot of pain, and so they prescribed her tylenol with codeine, told her she can take this. She also states she normally gets her blood drawn the last week and because she has had so much pain she hasn't been able to go for blood work. Told her she can get them drawn when she is feeling better. She verbalized understanding. She also states when she had the surgery on her face for the skin cancer, the doctor was leaning on her fistula, and now her fingers are a little numb so she thinks she may need that looked at after all this skin cancer is taken care. Noted surgery clearance for MOHS procedure, faxed over clearance from a kidney transplant stand point. CULTURAL EXTENSION OFFICER CULTURAL EXTENSION OFFICER documented in this encounter Plan of Treatment Not on file documented as of this encounter Visit Diagnoses Not on filedocumented in this encounter Care Teams Ladle Filler Relationship Specialty Start Date End Date Merlin Biggs MD [address] [place] [address] PCP - General Internal Medicine 02/20/20 11/02/22 Regina Contreras RN Investor Relations Manager 12/07/19 Charly Biggs MD [address] [address] Consulting Physician Internal Medicine 03/28/20 documented as of this encounter
--- OUTSIDE RECORDS SUMMARY | 2024-06-27 01:52 | XMS_ITS | Encounter Summary ---
Author Organization [facility] Healthcare Address [address] [place] [address] Care Team Providers Care Clinical Unit Educator Name Role Phone Regina Contreras RN Unavailable Merlin Biggs MD Primary Care Provider [phone] Charly Biggs MD Unavailable [phone] Encounter Details Date Type Department Care Team (Late st Contact Info) Description 05/16/2022 Telephone [facility] Transplant Kidney [address] [address] Mailstop [phone] [place] [address] Regina Contreras, DEREK Social History Tobacco Use Types Packs/Day Years Used Date Smoking Tobacco: Never Smokeless Tobacco: Never Alcohol Use Standard Drinks/Week Comments No 0 (1 standard drink = 0.6 oz pur e alcohol) Comments No Sex and Gender Information Value Date Recorded Sex Assigned at Not on file Legal Sex 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 LINING LAYER Gender Identity Not on file Sexual Orientation Not on file documented as of this encounter Miscellaneous Notes * Telephone Encounter - Regina Contreras RN - 05/16/2022 8:50 AM LINING LAYER Noted FKL 10. Pt had labs drawn after taking meds/clinic apt. Will await next true level. NG LAYER documented in this encounter Plan of Treatment Not on file documented as of this encounter Visit Diagnoses Not on filedocumented in this encounter Care Teams Clinical Unit Educator Relationship Specialty Start Date End Date Merlin Biggs MD [address] [place] [address] PCP - General Internal Medicine 02/20/20 11/02/22 Regina Contreras RN Vice President Research 12/07/19 Charly Biggs MD [address] [address] Consulting Physician Internal Medicine 03/28/20 documented as of this encounter
--- OUTSIDE RECORDS SUMMARY | 2024-06-27 01:52 | XMS_ITS | Encounter Summary ---
Author Organization [facility] Healthcare Address [address] [place] [address] Care Team Providers Care Digital Account Manager Name Role Phone Regina Contreras RN Unavailable Merlin Biggs MD Primary Care Provider [phone] Charly Biggs MD Unavailable [phone] Encounter Details Date Type Department Care Team (Late st Contact Info) Description 06/16/2022 Telephone [facility] Transplant Kidney [address] [address] Mailstop [phone] [place] [address] Regina Contreras, DEREK Social History Tobacco Use Types Packs/Day Years Used Date Smoking Tobacco: Never Smokeless Tobacco: Never Alcohol Use Standard Drinks/Week Comments No 0 (1 standard drink = 0.6 oz pur e alcohol) Comments No Sex and Gender Information Value Date Recorded Sex Assigned at Not on file Legal Sex 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 PRODUCTION ASSOCIATE Gender Identity Not on file Sexual Orientation Not on file documented as of this encounter Miscellaneous Notes * Telephone Encounter - Regina Contreras RN - 06/16/2022 10:20 AM PRODUCTION ASSOCIATE Rev'd repeated urine culture and susceptibilities with team. Dr. Babb: There are no oral options that she is not allergic to. Ask her to monitor her symptoms and if she develops any to let us know. If she does not develop any symptoms then we will not treat. Elida Contreras RN: Called pt to let her know. States she does not have any symptoms at all. Will continue to monitor and if she develops any symptoms of a UTI will let me know right away. UCTION ASSOCIATE UCTION ASSOCIATE UCTION ASSOCIATE documented in this encounter Plan of Treatment Not on file documented as of this encounter Visit Diagnoses Not on filedocumented in this encounter Care Teams Digital Account Manager Relationship Specialty Start Date End Date Merlin Biggs MD [address] [place] [address] PCP - General Internal Medicine 02/20/20 11/02/22 Regina Contreras RN Mule Operator 12/07/19 Charly Biggs MD [address] [address] Consulting Physician Internal Medicine 03/28/20 documented as of this encounter
--- OUTSIDE RECORDS SUMMARY | 2024-06-27 01:52 | XMS_ITS | Encounter Summary ---
Author Organization [facility] Medical Group Address [address] [facility] [address] [place] [address] Care Team Providers Care Reed Press Feeder Name Role Phone Regina Contreras RN Unavailable [phone] Merlin Biggs MD Primary Care Provider [phone] Charly Biggs MD Unavailable [phone] Reason for Visit * Reason Onset Date Comments Covid-19 Home Monitoring 09/24/2022 Encounter Details Date Type Department Care Team (Late st Contact Info) Description 09/24/2022 Telephone [facility] Accountable Care Organization [address] [place] [address] Thelma Santos MA [address] [place] [address] [address] [place] [address] Covid-19 Home Monitoring Social History Tobacco Use Types Packs/Day Years Used Date Smoking Tobacco: Never Smokeless Tobacco: Never Alcohol Use Standard Drinks/Week Comments No 0 (1 standard drink = 0.6 oz pur e alcohol) Comments No Sex and Gender Information Value Date Recorded Sex Assigned at Not on file 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 COVID-19 Symptom questionnaire was not completed today, patient was not available at the moment, states she will call back in a bit. Next Program Call Due: 09/25 * Telephone Encounter - Thelma Santos MA - 09/24/2022 9:10 AM CDT [place] Home Monitoring Unable to Reach Called patient for home monitoring MARA assessment Unable to reach patient. Patient will receive follow up call today documented in this encounter Plan of Treatment Not on file documented as of this encounter Visit Diagnoses Not on filedocumented in this encounter Additional Health Concerns Infection Onset Date Last Indicated Resolved Time COVID19 09/19/2022 09/19/2022 10/09/2022 3:05 AM CDT documented as of this encounter Care Teams Reed Press Feeder Relationship Specialty Start Date End Date Merlin Biggs MD [address] [place] [address] PCP - General Internal Medicine 02/20/20 11/02/22 Regina Contreras, DEREK Foundry Helper 12/07/19 Charly Biggs MD [address] [address] Consulting Physician Internal Medicine 03/28/20 documented as of this encounter
--- OUTSIDE RECORDS SUMMARY | 2024-06-27 01:52 | XMS_ITS | Encounter Summary ---
Author Organization [facility] Healthcare Address [address] [place] [address] Care Team Providers Care Assembler Installer Structures Name Role Phone Regina Contreras RN Unavailable [phone] Merlin Biggs MD Primary Care Provider [phone] Charly Biggs MD Unavailable [phone] Encounter Details Date Type Department Care Team (Late st Contact Info) Description 09/19/2022 Telephone [facility] Transplant Kidney [address] [address] Mailstop [phone] [place] [address] Arabella Hartman Social History Tobacco Use Types Packs/Day Years Used Date Smoking Tobacco: Never Smokeless Tobacco: Never Alcohol Use Standard Drinks/Week Comments No 0 (1 standard drink = 0.6 oz pur e alcohol) Comments No Sex and Gender Information Value Date Recorded Sex Assigned at Not on file 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 Elida Contreras RN: Called pt back to discuss. States she has had trouble going to the bathroom. Statesshe has not urinated in one week. Feels like she has to go and then she goes to the bathroom, a fewdrops come out and then she cannot get any more out. No RFP since June 2022. Asked pt to go to ER right away. Pt agreed and will head there now. Will await update, pt may go to Local ED at [facility] or to [facility]. Will let me know where she decides to go. documented in this encounter Plan of Treatment Not on file documented as of this encounter Visit Diagnoses Not on filedocumented in this encounter Care Teams Assembler Installer Structures Relationship Specialty Start Date End Date Merlin Biggs MD [address] [place] [address] PCP - General Internal Medicine 02/20/20 11/02/22 Regina Contreras RN Director Of Safety And Security 12/07/19 Charly Biggs MD [address] [address] Consulting Physician Internal Medicine 03/28/20 documented as of this encounter
--- OUTSIDE RECORDS SUMMARY | 2024-06-27 01:52 | XMS_ITS | Encounter Summary ---
Author Organization [facility] Healthcare Address [address] [place] [address] Care Team Providers Care Manager Grant Name Role Phone Regina Contreras RN Unavailable Merlin Biggs MD Primary Care Provider [phone] Charly Biggs MD Unavailable [phone] Encounter Details Date Type Department Care Team (Late st Contact Info) Description 05/26/[address] 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 Ordered in clinic for + nitrates. Reviewed with team. Dr. Man: I would do Cipro 500 mg BID for 10 days. Thanks Elida Contreras RN: Called pt to let her know, will start Cipro today. Sent to pharmacy. CAL NURSE CAL NURSE documented in this encounter Plan of Treatment Not on file documented as of this encounter Visit Diagnoses Not on filedocumented in this encounter Care Teams Manager Grant Relationship Specialty Start Date End Date Merlin Biggs MD [address] [place] [address] PCP - General Internal Medicine 02/20/20 11/02/22 Regina Contreras RN Director Data 12/07/19 Charly Biggs MD [address] [address] Consulting Physician Internal Medicine 03/28/20 documented as of this encounter
--- OUTSIDE RECORDS SUMMARY | 2024-06-27 01:52 | XMS_ITS | Encounter Summary ---
Author Organization [facility] Address [address] [place] [address] Care Team Providers Care Lithographers Printer Name Role Phone Regina Contreras RN Unavailable [phone] Merlin Biggs MD Primary Care Provider [phone] Charly Biggs MD Unavailable Encounter Details Date Type Department Care Team (Late st Contact Info) Description 05/22/2022 Orders Only [facility] Health Information Management [address] [place] [address] Scanning, Provider Social History Tobacco Use Types Packs/Day Years Used Date Smoking Tobacco: Never Smokeless Tobacco: Never Alcohol Use Standard Drinks/Week Comments No 0 (1 standard drink = 0.6 oz pur e alcohol) Comments No Sex and Gender Information Value Date Recorded Sex Assigned at Not on file 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 Gender Identity Not on file Sexual Orientation Not on file documented as of this encounter Plan of Treatment Not on file documented as of this encounter Procedures Procedure Name Priority Date/Time Associated Diagnosis Comments SCAN - LABS 05/22/2022 4:58 PM SENIOR BEHAVIORAL SCIENTIST documented in this encounter Results * SCAN - LABS (05/22/2022 4:58 PM SENIOR BEHAVIORAL SCIENTIST) us Provider Scanning Final Result documented in this encounter Visit Diagnoses Not on filedocumented in this encounter Care Teams Lithographers Printer Relationship Specialty Start Date End Date Merlin Biggs MD [address] [place] [address] PCP - General Internal Medicine 02/20/20 11/02/22 Regina Contreras, RN Distribution Center Assistant 12/07/19 Charly Biggs MD [address] [address] Consulting Physician Internal Medicine 03/28/20 documented as of this encounter
--- OUTSIDE RECORDS SUMMARY | 2024-06-27 01:52 | XMS_ITS | Encounter Summary ---
Author Organization [facility] Address [address] [place] [address] Care Team Providers Care Mathematics Technician Name Role Phone Regina Contreras RN Unavailable [phone] Merlin Biggs MD Primary Care Provider [phone] Charly Biggs MD Unavailable [phone] Encounter Details Date Type Department Care Team (Latest Contact Info) Description 06/13/2022 1:44 PM CONTENT DESIGNER - 06/13/2022 11:59 PM CONTENT DESIGNER Hospital Encounter [address] [id number] Kidney replaced by transplant Discharge Disposition: Discharge to home or self care Social History Tobacco Use Types Packs/Day Years Used Date Smoking Tobacco: Never Smokeless Tobacco: Never Alcohol Use Standard Drinks/Week Comments No 0 (1 standard drink = 0.6 oz pur e alcohol) Comments No Sex and Gender Information Value Date Recorded Sex Assigned at Not on file 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 Gender Identity Not on file Sexual Orientation [...] Take 1 capsule by mouth daily 4 Jardiance 10 mg tablet Take 10 mg by mouth daily 04/08/2022 3 levothyroxine (SYNTHROID) 100 mcg tablet Take 1 tablet (100 mcg total) by mouth 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 30 tablet 11 06/20/2021 3 lisinopriL (PRINIVIL,ZESTRIL ) 10 mg tablet Take 1 tablet (10 mg total) by mouth daily 90 tablet 3 03/28/2022 3 metoprolol tartrate (LOPRESSOR) 75 mg tablet immediate release tablet Take 1 tablet (75 mg total) by mouth 2 (two) times a day 180 tablet 3 09/06/2021 3 pravastatin (PRAVACHOL) 20 mg tablet Take [...] AND REFLEX TO MICROSCOPIC AND CULTURE Routine 06/13/2022 1:44 PM CONTENT DESIGNER Kidney replaced by transplant URINALYSIS, MICROSCOPIC ONLY Routine 06/13/2022 1:44 PM CONTENT DESIGNER Kidney replaced by transplant URINE CULTURE Routine 06/13/2022 1:44 PM CONTENT DESIGNER documented in this encounter Results * (ABNORMAL) Urine culture Urine, clean voided (06/13/2022 1:44 PM CONTENT DESIGNER) Report Final Report: Greater than or equal to 100,000 colonies/mL of Pseudomonas aeruginosa Greater than or equal to 100,000 colonies/mL of Pseudomonas aeruginosa #2 (.) STEVE WATSON Comment:Testing performed by : [facility], [address] [place]., [address] Organism PSEUDOMONAS AERUGINOSA STEVE Organism PSEUDOMONAS AERUGINOSA STEVE Urine, clean voided 06/13/2022 1:44 PM CONTENT DESIGNER 06/14/2022 1:41 AM CONTENT DESIGNER Narrative STEVE - 06/16/2022 1:53 PM CONTENT DESIGNER Urine culture reflexed based upon urinalysis results. Testing performed by [facility] ([phone]) Organism Antibiotic Method Susceptibility Pseudomonas aeruginosa Aztreonam INTERPRETATION Susceptible Pseudomonas aeruginosa Ceftazidime INTERPRETATION Susceptible Pseudomonas aeruginosa Ciprofloxacin INTERPRETATION Susceptible Pseudomonas aeruginosa Cefepime INTERPRETATION Susceptible Pseudomonas aeruginosa Gentamicin INTERPRETATION Susceptible Pseudomonas aeruginosa Imipenem INTERPRETATION Susceptible Pseudomonas aeruginosa Meropenem INTERPRETATION Susceptible Pseudomonas aeruginosa Piperacillin/Tazobactam INTERPR ETATION Susceptible Pseudomonas aeruginosa Tobramycin INTERPRETATION Susceptible Pseudomonas aeruginosa Aztreonam INTERPRETATION Susceptible Pseudomonas aeruginosa Ceftazidime INTERPRETATION Susceptible Pseudomonas aeruginosa Ciprofloxacin INTERPRETATION Susceptible Pseudomonas aeruginosa Cefepime INTERPRETATION Susceptible Pseudomonas aeruginosa Gentamicin INTERPRETATION Susceptible Pseudomonas aeruginosa Imipenem INTERPRETATION Susceptible Pseudomonas aeruginosa Meropenem INTERPRETATION Susceptible Pseudomonas aeruginosa Piperacillin/Tazobactam INTERPR ETATION Susceptible Pseudomonas aeruginosa Tobramycin INTERPRETATION Susceptible us Jessie Man MD LAB MICROBIOLOGY - GENERAL MIKAYLA ATWOOD Final Result STEVE WATSON [address] Department [place] [address] * (ABNORMAL) Urinalysis, microscopic only (06/13/2022 1:44 PM CONTENT DESIGNER) WBC, ur >50(A) 0 - 5 /HPF CERNER CH RBC, ur 3-5(A) 0 - 2 /HPF CERNER CH Epithelial cells, squamous, ur 1-5 0 - 5 /HPF CERNER CH Mucous, ur Present(A) CERNER CH Culture Reflex Comment Reflex to urine culture will be performed. [facility] Urine, clean voided 06/13/2022 1:44 PM CONTENT DESIGNER 06/13/2022 6:36 PM CONTENT DESIGNER us Jessie Man MD LAB URINE ORDERABLES Final Resu lt [facility] [address] Department [place] [address] * (ABNORMAL) Urinalysis reflex to microscopic and culture Urine, clean voided (06/13/2022 1:44 PM CONTENT DESIGNER) Color, ur Yellow Yellow CERNER CH Clarity, ur Clear Clear CERNER Specific gravity, ur 1.027 1.003 - 1.030 CERNER CH pH, urine 5.5 CERNER Protein, ur ql Negative Negative CERNER CH Glucose, ur ql 3+(A) Negative CERNER CH Ketones, ur Negative Negative [facility]ERNER CH Bilirubin, ur Negative Negative CERNER CH Blood, ur Trace(A) Negative [facility] CH Urobilinogen, ur 1.0 <2.0 mg/dL [facility] Nitrite, ur Positive(A) Negative [facility]ERNER CH Leukocyte esterase, ur Negative Negative [facility]ER CH UA reflex comment Reflex to microscopic UA will be performed. [facility] Urine, clean voided 06/13/2022 1:44 PM CONTENT DESIGNER 06/13/2022 6:30 PM CONTENT DESIGNER Narrative CERNER CH - 06/13/2022 7:45 PM CONTENT DESIGNER ?? Urine pH is affected by diet, medications, systemic acid-base disturbances, and renal tubular function. ??pH may affect urinary stone formation. ??For example, urine pH below 6.0 may help reduce the tendency for calcium phosphate stones and pH greater than 6.0 may reduce the tendency for uric acid stone formation. Source: [employer]. Last revised 07-16-2017 us Jessie Man MD LAB MICROBIOLOGY - GENERAL MIKAYLA ATWOOD Final Result STEVE [address] Department [place] [address] documented in this encounter Visit Diagnoses Diagnosis Kidney replaced by transplant documented in this encounter Care Teams Mathematics Technician Relationship Specialty Start Date End Date Merlin Biggs MD [address] [place] [address] PCP - General Internal Medicine 02/20/20 11/02/22 Regina Contreras, RN Securities Consultant 12/07/19 Charly Biggs MD [address] [address] Consulting Physician Internal Medicine 03/28/20 documented as of this encounter
--- OUTSIDE RECORDS SUMMARY | 2024-06-27 01:52 | XMS_ITS | Encounter Summary ---
Author Organization [facility] Healthcare Address [address] [place] [address] Care Team Providers Care Security Consultant Name Role Phone Regina Contreras RN Unavailable [phone] Merlin Biggs MD Primary Care Provider [phone] Charly Biggs MD Unavailable [phone] Reason for Visit * Reason Comments Urinary Problem Encounter Details Date Type Department Care Team (Late st Contact Info) Description 09/19/2022 11:11 AM CDT - 09/19/2022 5:02 PM CDT Emergency [facility] Emergency Department [address] [place] [address] Burke Banda MD [address] [facility] [address] [place] [address] COVID-19 (Primary Dx); Urinary tract infection in female; Dehydration Discharge Disposition: Discharge to home or self care Social History Tobacco Use Types Packs/Day Years Used Date Smoking Tobacco: Never Smokeless Tobacco: Never Alcohol Use Standard Drinks/Week Comments No 0 (1 standard drink = 0.6 oz pur e alcohol) Comments No Sex and Gender Information Value Date Recorded Sex Assigned at Not on file Legal Sex 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 [employer]IE[employer] Gender Identity Not on file Sexual Orientation Not on file documented as of this encounter Last Filed Vital Signs Vital Sign Reading Time Taken Comments Blood Pressure 141/65 09/19/2022 2:00 PM CDT Pulse 75 09/19/2022 2:00 PM CDT Temperature 37.2 ??C (99 ??F) 09/19/2022 11:01 AM CDT Respiratory Rate 18 09/19/2022 11:01 AM CDT Oxygen Saturation 94% 09/19/2022 2:00 PM CDT Inhaled Oxygen Concentration - - Weight - - Height - - Body Mass Index - - documented in this encounter Discharge Instructions * Discharge Instructions* Sharyn Bradley MD - 09/19/2022 2:28 PM CDT You have COVID-19. Your symptoms are likely due to a viral illness that your body will fight off intime. Take ibuprofen or tylenol as needed for pain and/or fever, drink plenty of clear fluids and avoid any strenuous activity until you are feeling better. If you develop unbearable sore throat even with medications, change in your voice, inability to swallow fluids, severe nausea and vomiting and are unable to stay hydrated, or other concerning symptoms, you may be developing a serious infection and should call your doctor, and if he/she cannot see you the same day return to the ER. As discussed, your urine studies today were concerning for urinary tract infection. However, as youremain asymptomatic, in discussion with transplant nephrology, antibiotic treatment is deferred at this time pending your urine culture results. If you develop any of your typical UTI symptoms, fever, vomiting, or other symptom concerning for worsening infection, call your it coordinator celso to the Emergency Department. * Attachments The following attachments cannot be sent through Care Everywhere. 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 Patient reports that she has not been able to urinate forthe past several days. When she attempts to, very few drops of urine come out. No fever or chills Denies any abdominal pain, diarrhea, constipation. Denies any recent illness. Denies any genitourinary symptoms. Only reporting decreased urine. Has had increased stress recently in his had decreasedp.o. 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 Hordeolum internum of left lower eyelid 07/04/2020 Traumatic closed fracture of C2 vertebra with minimal displacement ([facility]) 03/21/2020 Injury to ligament of cervical spine 03/21/2020 Acute pain due to trauma 03/21/2020 HTN (hypertension) 03/21/2020 CAD (coronary artery disease) 03/21/2020 Hypothyroidism 03/21/2020 Chronic UTI 03/21/2020 Pseudophakia of both eyes 04/11/2019 Vasculitis ([facility]) ([facility]) 11/19/2013 History of kidney transplant 05/17/2013 Past Medical History: Diagnosis Date Abdominal pain Bruising CAD (coronary artery disease) CAD (coronary artery disease) 03/21/2020 Drusen of optic disc, bilateral Fatigue Frequent urination GERD (gastroesophageal reflux disease) Gout Heart murmur Hiatal hernia schatzki ring HL (hearing loss) Hyperlipidemia Hypertension Hypothyroidism Migraines Peritoneal dialysis status ([facility]) ([facility]) From 2009 to 2012 prior to transplant [...] ring KIDNEY TRANSPLANT 02/2013 PARATHYROIDECTOMY 1994 RHINOPLASTY TONSILLECTOMY 194 VEIN LIGATION AND STRIPPING 1992 [...] Systems Constitutional: Negative for chills and fever. HENT: Negative for ear pain and sore throat. Eyes: Negative for pain and visual disturbance. Respiratory: Negative for cough, choking and shortness of breath. Cardiovascular: Negative for chest pain, palpitations and leg swelling. Gastrointestinal: Negative for abdominal pain, blood in stool, diarrhea, nausea and vomiting. Genitourinary: Positive for decreased urine volume and vaginal bleeding. Negative for dysuria and hematuria. Musculoskeletal: Negative for arthralgias, back pain and neck pain. Skin: Negative for color change and rash. Neurological: Negative for seizures and syncope. All other systems reviewed and are negative. Physical Exam ED Triage Vitals [09/19/22 1101] Temp Pulse Resp BP SpO2 37.2 ??C (99 ??F) 79 18 135/92 99 % Temp src Heart Rate Source Patient Position BP Location FiO2 (%) Skin -- -- -- -- Height Height Method Weight Weight Method -- -- -- -- Physical Exam Vitals and nursing note reviewed. Constitutional: General: She is not in acute distress. Appearance: She is well-developed. HENT: Head: Normocephalic and atraumatic. Eyes: Conjunctiva/sclera: Conjunctivae normal. Cardiovascular: Rate and Rhythm: Normal rate and regular rhythm. Pulses: Normal pulses. Heart sounds: Normal heart sounds. No murmur heard. Pulmonary: Effort: Pulmonary effort is normal. No respiratory distress. Breath sounds: Normal breath sounds. Abdominal: General: Abdomen is flat. Bowel sounds are normal. Palpations: Abdomen is soft. Tenderness: There is no abdominal tenderness. Musculoskeletal: General: No swelling. Cervical back: Neck supple. Skin: General: Skin is warm and dry. Capillary Refill: Capillary refill takes less than 2 seconds. Neurological: General: No focal deficit present. Mental Status: She is alert and oriented to person, place, and time. Psychiatric: Mood and Affect: Mood normal. 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 Patient reports that she has not been able to urinate forthe past several days. When she attempts to, very few drops of urine come out. No fever or chills Denies any abdominal pain, diarrhea, constipation. Denies any recent illness. Denies any genitourinary symptoms. Vital signs stable. PVR of about 30 cc only. Differential diagnosis includes dehydration, renal failure,UTI, lytes imbalance Plan for labs, dispo pending workup. Amount and/or Complexity of Data Reviewed Labs: ordered. Decision-making details documented in ED Course. Radiology: ordered. ECG/medicine tests: ordered. Risk Decision regarding hospitalization. Attending Summary of Care ED Course as of 09/20/22 1439 Time: 09/19 1211 Comment: Attg note: Pt with renal transplant 10 years ago and with 5 days of decreased urine output. Also associated with decreased po intake. Does not feel full or like she needs to urinate. Will check to see if bladder is full or not and then check labs for renal failure By: Burke Banda MD Time: 09/19 1331 Value: Creatinine: 0.95 Comment: (Reviewed) By: Pam Carney MD Time: 09/19 1425 Value: COVID-19 RNA(!): Detected Comment: (Reviewed) By: Pam Carney MD Time: 09/19 1507 Comment: RESIDENT PHYSICIAN SIGN-OUT: 87 yo F with h/o kidney transplant on tacrolimus, CAD, and HTN presented with decreased UOP x4-5 days. PVR wnl. Cr at baseline. Receiving IVF hydration. Found to be covid+ but not endorsing respiratory sxs. Dispo pending UA, CXR, and ambulatory trial. By: Sharyn Bradley MD Time: 09/19 1639 Comment: Re-evaluated pt. She successfully voided after IVF hydration. She feels well enough for discharge. ED RN ambulated patient and she maintained SpO2 >96% on RA with ambulation. We discussedher positive covid-19 result and option of paxlovid given her immunocompromised state and sxs onsetabout 5 days ago. She declined paxlovid today. Her UA today is c/w UTI. Review of prior urine cxs re veals pt grew pseudomonas on urine cx in Jun 2022. Per ID transplant note from that time, there were no oral options that she is not allergic to. Pt was asked to monitor her symptoms and if she develops any to let them know. She never developed any symptoms thus was not treated. She continues to deny any of her typical lower urinary tract symptoms today, which in the past have presented as dysuria. Discussed UA results with transplant nephrology fellow over telephone today. As pt remains asymptomatic, strongly desires discharge home, and has foregone tx in past without worsening, okay with deferring tx today. Pt again should monitor for symptoms at home and call her transplant team or return to the ED if she develops any. By: Sharyn Bradley MD COVID-19 Urinary tract infection in female Dehydration Pam Carney MD Resident 09/19/22 0616 I have seen and examined the patient on 09/19/2022. I agree with the findings and plan of care as documented in the resident's note. Burke Banda MD 09/20/22 1439 * Sallie Shepherd RN - 09/19/2022 11:11 AM CDT Bed: ED1-10 Expected date: Expected time: Means of arrival: Car Comments: Sallie Shepherd RN 09/19/22 1111 * Sallie Shepherd RN - 09/19/2022 11:00 AM CDT Pt presents with several day of not being able to urinate, +dehydration d/t reduced po intake, hx of kidney transplant in 2012 documented in this encounter Miscellaneous Notes * ED Procedure Note - Burke Banda MD - 09/19/2022 12:36 PM CDTAssociated Order(s): ECG 12 lead Procedure ECG 12 lead Date/Time: 09/19/2022 12:36 PM Performed by: Burke Banda MD Authorized by: Pam Carney MD Rate: ECG rate: 79 ECG rate assessment: normal Rhythm: Rhythm: sinus rhythm Ectopy: Ectopy: none QRS: QRS axis: Normal QRS intervals: Normal Conduction: Conduction: normal ST segments: ST segments: Normal T waves: T waves: normal Previous ECG: Previous ECG: Compared to current Date of previous EC03/19/2020 Interpretation: Interpretation: normal Recommended Follow-up: Recommended follow up: further workup in the ED Burke Banda MD 09/19/22 1237 documented in this encounter Plan of Treatment Not on file documented as of this encounter Procedures Procedure Name Priority Date/Time Associated Diagnosis Comments URINALYSIS AND REFLEX TO MICROSCOPIC AND CULTURE Routine 09/19/2022 5:50 PM CDT URINALYSIS, MICROSCOPIC ONLY Routine 09/19/2022 5:50 PM CDT URINE CULTURE Routine 09/19/2022 5:50 PM CDT XR CHEST PA LATERAL 2 VIEWS ED 09/19/2022 3:27 PM CDT TROPONIN I HIGH-SENSITIVITY 2-HOUR Timed 09/19/2022 2:35 PM CDT URINALYSIS AND REFLEX TO MICROSCOPIC AND CULTURE Routine 09/19/2022 2:35 PM CDT URINALYSIS, MICROSCOPIC ONLY Routine 09/19/2022 2:35 PM CDT URINE CULTURE Routine 09/19/2022 2:35 PM CDT TROPONIN I HIGH-SENSITIVITY SERIES (BASELINE, 2HR, 4HR, 6HR) STAT 09/19/2022 12:40 PM CDT EGFR STAT 09/19/2022 12:40 PM CDT DIFFERENTIAL AUTO STAT 09/19/2022 12: 40 PM CDT RESPIRATORY PATHOGEN PANEL Routine 09/19/2022 12:40 PM CDT CBC WITH AUTO DIFFERENTIAL STAT 09/19/2022 12:40 PM CDT TACROLIMUS LEVEL, RANDOM STAT 09/19/2022 12:40 PM CDT COMPREHENSIVE METABOLIC PANEL STAT 09/19/2022 12:40 PM CDT ECG 12-LEAD Routine 09/19/2022 12:36 PM CDT documented in this encounter Results * (ABNORMAL) Urine culture Urine (09/19/2022 5:50 PM CDT) Report Final Report: Greater than or equal to 100,000 colonies/mL of Pseudomonas aeruginosa Greater than or equal to 100,000 colonies/mL of Pseudomonas aeruginosa #2 (.) [facility] Organism PSEUDOMONAS AERUGINOSA [facility] Organism PSEUDOMONAS AERUGINOSA [facility] Urine 09/19/2022 5:50 PM CDT 09/19/2022 7:01 PM CDT Narrative [facility] - 09/22/2022 2:56 PM CDT Urine culture reflexed based upon urinalysis results. Testing performed by [facility] ([phone]) Organism Antibiotic Method Susceptibility Pseudomonas aeruginosa Aztreonam [...] Susceptible Pseudomonas aeruginosa Tobramycin INTERPRETATION Susceptible us Burke Banda MD LAB MICROBIOLOGY - GENERAL ORD ERABLES Final Result [facility] Department [place] [address] * (ABNORMAL) Urinalysis, microscopic only (09/19/2022 5:50 PM CDT) WBC, ur 11-20(A) 0 - 5 /HPF [facility] RBC, ur 3-5(A) 0 - 2 /HPF [facility] Epithelial cells, squamous, ur 1-5 0 - 5 /HPF [facility] Bacteria, ur 1+(A) [facility] Mucous, ur Present(A) [facility] Culture Reflex Comment Reflex to urine culture will be performed. [facility] Urine 09/19/2022 5:50 PM CDT 09/19/2022 5:55 PM CDT Burke Banda MD LAB URINE ORDERABLES Final Res ult [facility] [address] [facility] Department [place] [address] * (ABNORMAL) Urinalysis reflex to microscopic and culture Urine (09/19/2022 5:50 PM CDT) Color, ur Yellow Yellow [facility] Clarity, ur Cloudy(A) Clear [facility] Specific gravity, ur 1.020 1.003 - 1.030 [facility] pH, urine 6.5 [facility] Protein, ur ql Trace Negative [facility] Glucose, ur ql Negative Negative [facility] Ketones, ur Trace Negative [facility] Bilirubin, ur Negative Negative [facility] Blood, ur Negative Negative [facility] Urobilinogen, ur <2.0 <2.0 mg/dL [facility] Nitrite, ur Positive(A) Negative [facility] Leukocyte esterase, ur 2+(A) Negative [facility] UA reflex comment Reflex to microscopic UA will be performed. [facility] Urine 09/19/2022 5:50 PM CDT 09/19/2022 5:55 PM CDT Narrative [facility] - 09/19/2022 6:03 PM CDT ?? Urine pH is affected by diet, medications, systemic acid-base disturbances, and renal tubular function. ??pH may affect urinary stone formation. ??For example, urine pH below 6.0 may help reduce the tendency for calcium phosphate stones and pH greater than 6.0 may reduce the tendency for uric acid stone formation. Source: [employer]. Last revised 07-16-2017 Burke Banda MD LAB MICROBIOLOGY - GENERAL ORD ERABLES Final Result [facility] Department [place] [address] * XR Chest PA Lateral 2 Views (09/19/2022 3:27 PM CDT) Anatomical Region Laterality Modality Body, Chest N/A Computed Radiogr aphy 09/19/2022 3:38 PM CDT Impressions 09/19/2022 3:41 PM CDT Comparison is made to chest radiograph dated 03/20/2020. New, mild pulmonary edema. Left ??subsegmental basilar atelectasis with small left effusion. ??No right pleural effusion. ??No pneumothorax. Stable, mildly enlarged cardiomediastinal silhouette. Dictated by: Saurabh Jordan M.D. The radiology attending physician has personally reviewed this study, and had reviewed and/or edited this written report and agrees with it. Electronically signed by: Isiah Jacome M.D. Narrative 09/19/2022 3:41 PM CDT EXAMINATION: 2 view chest radiograph Procedure Note Isiah Jacome MD - 09/19/2022 EXAMINATION: 2 view chest radiograph IMPRESSION: Comparison is made to chest radiograph dated 03/20/2020. New, mild pulmonary edema. Left subsegmental basilar atelectasis with small left effusion. No right pleural effusion. No pneumothorax. Stable, mildly enlarged cardiomediastinal silhouette. Dictated by: Saurabh Jordan M.D. The radiology attending physician has personally reviewed this study, and had reviewed and/or edited this written report and agrees with it. Electronically signed by: Isiah Jacome M.D. Pam Carney MD IMG XR PROCEDURES Final Resu lt * (ABNORMAL) Urine culture Urine (09/19/2022 2:35 PM CDT) Report Final Report: Greater than or equal to 100,000 colonies/mL of Pseudomonas aeruginosa For susceptibility results, refer to accession number [id number] on the urine culture from 09/19/2022 Plus growth of clinically insignificant bacterial momo. (.) [facility] Organism PSEUDOMONAS AERUGINOSA [facility] Organism PLUS GROWTH OF CLINICALLY INSIGNIFICANT MOMO. [facility] Urine 09/19/2022 2:35 PM CDT 09/19/2022 7:01 PM CDT Narrative [facility] - 09/21/2022 7:39 AM CDT Urine culture reflexed based upon urinalysis results. Testing performed by [facility] ([phone]) Pam Carney MD LAB MICROBIOLOGY - GENERAL O RDERABLES Final Result Performing Organization Address [facility] Co de Phone Number [facility] Department of [employer] ([employer]) [place] [address] * (ABNORMAL) Urinalysis, microscopic only (09/19/2022 2:35 PM CDT) WBC, ur 11-20(A) 0 - 5 /HPF [facility] RBC, ur 6-10(A) 0 - 2 /HPF [facility] Epithelial cells, squamous, ur 1-5 0 - 5 /HPF [facility] Bacteria, ur 1+(A) [facility] Mucous, ur Present(A) [facility] Culture Reflex Comment Reflex to urine culture will be performed. [facility] Urine 09/19/2022 2:35 PM CDT 09/19/2022 3:06 PM CDT us Pam Carney MD LAB URINE ORDERABLES Final R esult Performing Organization Address [facility]/ZIP Co de Phone Number [facility] Department [place] [address] * Troponin I high-sensitivity 2-hour (09/19/2022 2:35 PM CDT) Trop I hs 15 <=17 ng/L [facility] Comment: Interpretive Data For further hscTnI resources including the diagnostic algorithm and an aid in interpretation, copy and paste this link: [email or web address]/[email or web address] Current Interpretive Data last revised 2020. Trop I hs delta 1 ng/L [facility] Trop I hs interp Insignificant [facility] Blood 09/19/2022 2:35 PM CDT 09/19/2022 2:47 PM CDT Pam Carney MD LAB BLOOD ORDERABLES Final R esult [facility] Department [place] [address] * (ABNORMAL) Urinalysis reflex to microscopic and culture Urine (09/19/2022 2:35 PM CDT) Color, ur Yellow Yellow [facility] Clarity, ur Clear Clear [facility] Specific gravity, ur 1.020 1.003 - 1.030 [facility] pH, urine 6.5 [facility] Protein, ur ql Trace Negative [facility] Glucose, ur ql Negative Negative [facility] Ketones, ur Trace Negative [facility] Bilirubin, ur Negative Negative [facility] Blood, ur Negative Negative [facility] Urobilinogen, ur <2.0 <2.0 mg/dL [facility] Nitrite, ur Positive(A) Negative [facility] Leukocyte esterase, ur 2+(A) Negative [facility] UA reflex comment Reflex to microscopic UA will be performed. [facility] Urine 09/19/2022 2:35 PM CDT 09/19/2022 3:06 PM CDT Narrative [facility] - 09/19/2022 3:27 PM CDT ?? Urine pH is affected by diet, medications, systemic acid-base disturbances, and renal tubular function. ??pH may affect urinary stone formation. ??For example, urine pH below 6.0 may help reduce the tendency for calcium phosphate stones and pH greater than 6.0 may reduce the tendency for uric acid stone formation. Source: [employer]. Last revised 07-16-2017 Pam Carney MD LAB MICROBIOLOGY - GENERAL O RDERABLES Final Result Performing Organization Address [facility] Co de Phone Number [facility] Department [place] [address] * (ABNORMAL) eGFR (09/19/2022 12:40 PM CDT) eGFR 59(L) 90 - 130 mL/min/1. 73 m2 [facility] Comment: Interpretive Data Reference Interval Normal ?>/= [...] interpretive data was last reviewed 2021. Blood 09/19/2022 12:4 0 PM CDT 09/19/2022 12:54 PM CDT Pam Carney MD LAB BLOOD ORDERABLES Final R esult Performing Organization Address City/[facility] Co de Phone Number [facility] Department [place] [address] * (ABNORMAL) Differential, auto (09/19/2022 12:40 PM CDT) Neutrophil abs 3.1 1.7 - 6.5 K/cumm [facility] Imm gran abs 0.0 0.0 - 0.1 K/cumm [facility] Lymphocyte abs 0.3(L) 0.8 - 3.3 K/cumm [facility] Monocyte abs 0.3 0.2 - 0.8 K/cumm [facility] Eosinophil abs 0.0 0.0 - 0.5 K/cumm [facility] Basophil abs 0.0 0.0 - 0.1 K/cumm [facility] Neutrophil pct 82.9 % [facility] Comment: Interpretive Data Percent cell count reference ranges are not reported, since discordance with absolute values may lead to misinterpretation of CBC data. Current Interpretive Data was last revised on 2017. Imm gran pct 0.5 % [facility] Comment: Interpretive Data Percent cell count reference ranges are not reported, since discordance with absolute values may lead to misinterpretation of CBC data. Current Interpretive Data was last revised on 2017. Lymphocyte pct 7.2 % [facility] Comment: Interpretive Data Percent cell count reference ranges are not reported, since discordance with absolute values may lead to misinterpretation of CBC data. Current Interpretive Data was last revised on 2017. Monocyte pct 8.8 % [facility] Comment: Interpretive Data Percent cell count reference ranges are not reported, since discordance with absolute values may lead to misinterpretation of CBC data. Current Interpretive Data was last revised on 2017. Eosinophil pct 0.3 % [facility] Comment: Interpretive Data Percent cell count reference ranges are not reported, since discordance with absolute values may lead to misinterpretation of CBC data. Current Interpretive Data was last revised on 2017. Basophil pct 0.3 % [facility] Comment: Interpretive Data Percent cell count reference ranges are not reported, since discordance with absolute values may lead to misinterpretation of CBC data. Current Interpretive Data was last revised on 2017. Blood 09/19/2022 12:4 0 PM CDT 09/19/2022 12:54 PM CDT Pam Carney MD LAB BLOOD ORDERABLES Final R esult [facility] Department [place] [address] * (ABNORMAL) Respiratory pathogen panel Nasopharyngeal (09/19/2022 12:40 PM CDT) [facility] Influenza A RNA Not Detected Not Detected [facility] Influenza B RNA Not Detected Not Detected [facility] RSV RNA Not Detected Not Detected [facility] COVID-19 RNA Detected(A) Not Detected [facility] Coronavirus 229E RNA Not Detected Not Detected [facility] [facility] Coronavirus HKU1 RNA Not Detected Not Detected [facility] Coronavirus NL63 RNA Not Detected Not Detected [facility] Coronavirus OC43 RNA Not Detected Not Detected [facility] Adenovirus DNA Not Detected Not Detected [facility] Metapneumovirus RNA Not Detected Not Detected [facility] Rhinovirus/Enterov irus RNA Not Detected Not Detected [facility] Parainfluenza 1 RNA Not Detected Not Detected [facility] Parainfluenza 2 RNA Not Detected Not Detected [facility] Parainfluenza 3 RNA Not Detected Not Detected [facility] Parainfluenza 4 RNA Not Detected Not Detected [facility] B. pertussis DNA Not Detected Not Detected [facility] B. parapertussis DNA Not Detected Not Detected [facility] C. pneumoniae DNA Not Detected Not Detected [facility] M. pneumoniae DNA Not Detected Not Detected [facility] Nasopharyngeal 09/19/2022 12 :40 PM CDT 09/19/2022 12:51 PM CDT Narrative [facility] - 09/19/2022 2:02 PM CDT Is the Patient experiencing symptoms consistent with COVID?->No Reason for testing?->Bed placement or semi-private room Surveillance testing for transplant patient?->No ??Interpretive Data The [employer] FilmArray Respiratory Panel (RP2.1) assay is a multiplexed real-time PCR based nucleic acid test capable of simultaneous qualitative detection and identification of multiple respiratory viral and bacterial nucleic acids, including SARS Coronavirus 2 (the causative agent of COVID-19). The following bacteria, viruses and virus subtypes can be identified using the FilmArray RP2.1 assay: Bordetella pertussis, Bordetella parapertussis, Chlamydia pneumoniae, Mycoplasma pneumoniae, Adenovirus, SARS Coronavirus 2, seasonal coronaviruses (Coronavirus HKU1, Coronavirus NL63, Coronavirus 229E, and Coronavirus OC43), Influenza A, Influenza A subtype H1, Influenza A subtype H3, Influenza A subtype 2009 H1, Influenza B, Metapneumovirus, Parainfluenza 1, Parainfluenza 2, Parainfluenza 3, Parainfluenza 4, RSV, Rhinovirus/Enterovirus. Due to the genetic similarity between human Rhinovirus and Enterovirus, the FilmArray RP2.1 assay cannot reliably differentiate them. Coronavirus OC43 may cross-react with some isolates of Coronavirus HKU1. ??A dual positive result may be due to cross-reactivity or may indicate a co-infection. The detection and identification of specific viral and bacterial nucleic acids from individuals exhibiting signs and symptoms of a respiratory infection aids in the diagnosis of respiratory infection if used in conjunction with other clinical and epidemiological information. ??The results of this test should not be used as the sole basis for diagnosis, treatment, or other management decisions. ??Negative results in the setting of a respiratory illness may be due to infection with pathogens that are not detected by this test. ??Positive results do not rule out infection/co-infection with other organisms. ??The agent(s) detected by the FilmArray RP2.1 may not be the definite cause of disease. ??Additional testing (lab, imaging, etc.) may be necessary when evaluating a patient with possible respiratory tract infection. The FilmArray RP2.1 assay has FDA clearance for testing of SENIOR NET C DEVELOPER swabs. ??The performance of additional specimen types has been assessed by the performing laboratory. ??The performance characteristics of this assay have been determined by [facility]. Current interpretive data was last revised on 22. Pam Carney MD LAB MICROBIOLOGY - GENERAL O RDERABLES Final Result Performing Organization Address [facility] de Phone Number [facility] [place] [address] * Tacrolimus level random (09/19/2022 12:40 PM CDT) Tacrolimus random 18.5 ng/mL [facility] Comment: Interpretive Data Testing performed by liquid chromatography-tandem mass spectrometry. ??Therapeutic concentrations vary depending on type of transplanted organ and time elapsed since transplant. ??Typical trough concentrations range from 5-15 ng/mL. ??This test was developed and its performance characteristics determined by the [facility] consistent with CLIA requirements. ??This test has not been cleared or approved by the [place] Food and Drug administration. ??Current interpretive data last reviewed 2019. Blood 09/19/2022 12:4 0 PM CDT 09/19/2022 12:55 PM CDT Pam Carney MD LAB BLOOD ORDERABLES Final R esult Performing Organization Address [facility] de Phone Number [facility] Department [place] [address] * Troponin I high-sensitivity series (baseline, 2hr, 4hr, 6hr) (09/19/2022 12:40 PM CDT) Trop I hs 14 <=17 ng/L [facility] Comment: Interpretive Data For further hscTnI resources including the diagnostic algorithm and an aid in interpretation, copy and paste this link: [email or web address]://bjhlab.testcatalog.org/show/[email or web address] Current Interpretive Data last revised 2020. Blood 09/19/2022 12:4 0 PM CDT 09/19/2022 12:54 PM CDT Pam Carney MD LAB BLOOD ORDERABLES Final R esult Performing Organization Address [facility] Co de Phone Number [facility] Department [place] [address] * (ABNORMAL) Comprehensive metabolic panel (09/19/2022 12:40 PM CDT) Sodium 138 135 - 145 mmol/L [facility] Potassium, pl 4.7 3.3 - 4.9 mmol/L [facility] Chloride 102 97 - 110 mmol/L [facility] CO2 25 22 - 32 mmol/L [facility] Anion gap 11 2 - 15 mmol/L [facility] BUN 25 8 - 25 mg/dL [facility] Creatinine 0.95 0.60 - 1.10 mg/dL [facility] Glucose 114 70 - 199 mg/dL [facility] Comment: Interpretive Data Fasting glucose >/= 126 [...] interpretive data was last revised 2022. Calcium 9.8 8.5 - 10.3 mg/dL [facility] Bilirubin, total 0.7 0.1 - 1.2 mg/dL [facility] Protein, pl 6.2(L) 6.5 - 8.5 g/dL [facility] Albumin 3.4(L) 3.5 - 5.0 g/dL [facility] Alk phos 81 40 - 130 Units/L [facility] ALT 14 7 - 45 Units/L [facility] AST 27 10 - 45 Units/L [facility] Blood 09/19/2022 12:4 0 PM CDT 09/19/2022 12:54 PM CDT Pam Carney MD LAB BLOOD ORDERABLES Final R esult [facility] [place] [address] * (ABNORMAL) CBC with auto differential (09/19/2022 12:40 PM CDT) WBC 3.7(L) 3.8 - 9.9 K/cumm [facility] Hgb 12.6 11.9 - 15.5 g/dL [facility] Hct 39.1 35.6 - 45.5 % [facility] Plt 95(L) 150 - 400 K/cumm [facility] MPV 10.9 9.1 - 12.3 fL [facility] RBC 3.95 3.90 - 5.20 M/cumm [facility] MCV 99.0(H) 81.3 - 96.4 fL [facility] MCH 31.9 27.1 - 33.3 pg [facility] MCHC 32.2(L) 32.3 - 35.7 g/dL [facility] RDW CV 12.5 11.1 - 14.9 % [facility] RDW SD 45.3 35.7 - 48.1 fL [facility] NRBC abs 0.00 0.00 - 0.01 K/cumm [facility] Blood 09/19/2022 12:4 0 PM CDT 09/19/2022 12:54 PM CDT Pam Carney MD LAB BLOOD ORDERABLES Final R esult [facility] Department [place] [address] * ECG 12-LEAD (09/19/2022 12:36 PM CDT) Narrative [facility] - 09/19/2022 12:36 PM CDT Burke Banda MD ? 09/19/2022 12:37 PM ECG 12 lead Date/Time: 09/19/2022 12:36 PM Performed by: Burke Banda MD Authorized by: Pam Carney MD Rate: ??ECG rate: ??79 ??ECG rate assessment: normal ?? Rhythm: ??Rhythm: sinus rhythm ?? Ectopy: ??Ectopy: none ?? QRS: ??QRS axis: ??Normal ??QRS intervals: ??Normal Conduction: ??Conduction: normal ?? ST segments: ??ST segments: ??Normal T waves: ??T waves: normal ?? Previous ECG: ??Previous ECG: ??Compared to current ??Date of previous ECG: ??03/19/2020 Interpretation: ??Interpretation: normal ?? Recommended Follow-up: ??Recommended follow up: further workup in the ED ?? Procedure Note Burke Banda MD - 09/19/2022 12:36 PM CDT Procedure ECG 12 lead Date/Time: 09/19/2022 12:36 PM Performed by: Burke Banda MD Authorized by: Pam Carney MD Rate: ECG rate: 79 ECG rate assessment: normal Rhythm: Rhythm: sinus rhythm Ectopy: Ectopy: none QRS: QRS axis: Normal QRS intervals: Normal Conduction: Conduction: normal ST segments: ST segments: Normal T waves: T waves: normal Previous ECG: Previous ECG: Compared to current Date of previous EC03/19/2020 Interpretation: Interpretation: normal Recommended Follow-up: Recommended follow up: further workup in the ED Burke Banda MD 09/19/22 1237 Result [facility] Pam Carney MD ECG ORDERABLES Final Result Performing Organization Address City/State/ZIP Co oh Phone Number [facility] documented in this encounter Visit Diagnoses Diagnosis COVID-19- Primary Urinary tract infection in female Dehydration documented in this encounter Administered Medications Inactive Administered Medications - up to 3 most recent administrations Medication Order MAR Action Action Date Dose Rate Site Lactated Ringer's (LR) bolus 1,000 mL 1,000 mL, intravenous, Once, On Thu09/19/22 at 1428, For 1 dose New Bag 09/19/2022 2:36 PM CDT 1,000 mL documented in this encounter Active and Recently Administered Medications Times are shown in CDT. Scheduled Medication Order 09/17/2022 09/18/2022 09/19/2022 Lactated Ringer's (LR) bolus 1,000 mL (COMPLETED) 1,000 mL, intravenous, Once, On Thu09/19/22 at 1428, For 1 dose 1436 (New Bag - Prov ider: Adelina Escobedo RN)1614 (Stopped - Provider: Adelina Escobedo RN) documented in this encounter Orders Medications Ordered That Taras ht Not Have Been Administered Count Last Ordered Date First Ordered Date Lactated Ringer's (LR) bolus 1,000 mL 1 documented in this encounter Additional Health Concerns Infection Onset Date Last Indicated Resolved Time COVID19 09/19/2022 09/19/2022 10/09/2022 3:05 AM CDT documented as of this encounter Care Teams Security Consultant Relationship Specialty Start Date End Date Merlin Biggs MD [address] [place] [address] PCP - General Internal Medicine 02/20/20 11/02/22 Regina Contreras, DEREK Quality Assurance Project Manager 12/07/19 Charly Biggs MD [address] [address] Consulting Physician Internal Medicine 03/28/20 documented as of this encounter
--- OUTSIDE RECORDS SUMMARY | 2024-06-27 01:52 | XMS_ITS | Encounter Summary ---
Author Organization [facility] Address [address] [place] [address] Care Team Providers Care Manganese Heater Name Role Phone Regina Contreras RN Unavailable Merlin Biggs MD Primary Care Provider [phone] Charly Biggs MD Unavailable [phone] Encounter Details Date Type Department Care Team (Late st Contact Info) Description 05/23/2022 Orders Only [facility] Health Information Management [address] [place] [address] Scanning, Provider Social History Tobacco Use Types Packs/Day Years Used Date Smoking Tobacco: Never Smokeless Tobacco: Never Alcohol Use Standard Drinks/Week Comments No 0 (1 standard drink = 0.6 oz pur e alcohol) Comments No Sex and Gender Information Value Date Recorded Sex Assigned at Not on file 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 Gender Identity Not on file Sexual Orientation Not on file documented as of this encounter Plan of Treatment Not on file documented as of this encounter Procedures Procedure Name Priority Date/Time Associated Diagnosis Comments SCAN - LABS 05/23/2022 4:51 PM STALLION KEEPER documented in this encounter Results * SCAN - LABS (05/23/2022 4:51 PM STALLION KEEPER) us Provider Scanning Final Result documented in this encounter Visit Diagnoses Not on filedocumented in this encounter Care Teams Manganese Heater Relationship Specialty Start Date End Date Merlin Biggs MD [address] [place] [address] PCP - General Internal Medicine 02/20/20 11/02/22 Regina Contreras, RN Systems Development Consultant 12/07/19 Charly Biggs MD [address] [address] Consulting Physician Internal Medicine 03/28/20 documented as of this encounter
--- OUTSIDE RECORDS SUMMARY | 2024-06-27 01:53 | XMS_ITS | Encounter Summary ---
Author Organization [facility] Address [address] [place] [address] Phone Care Team Providers Care Transplanter Name Role Phone Gregg Peace RN Unavailable [phone] Regina Contreras RN Unavailable [phone] Merlin Biggs MD Primary Care Provider [phone] Charly Biggs MD Unavailable [phone] Reason for Referral * Diagnostic Imaging (Routine) - Closed Specialty Diagnoses / Procedures Referred By Contac t Referred To Contact Radiology Diagnoses ESRD (end stage renal disease) (CMS/HCC) (HCC) Procedures IR Dialysis Fistulagram W PRINCIPAL EXAMINER Peripheral Segment Arturo Khan MD PhD Phone: tel: fax: [address] [address] Referral ID Status Reason Start Date Expiration Date Visits Re quested Visits Authorized [id number] Closed 12/21/2020 01/20/2022 1 1 Encounter Details Date Type Department Care Team (Late st Contact Info) Description 12/21/2020 Orders Only [facility] Surgery [address] [facility] 8th [place] [address] [place] [address] Arturo Khan MD PhD [address] [facility] [address] [place] [address] ESRD (end stage renal disease) ([facility]) (Primary Dx) Social History Tobacco Use Types Packs/Day Years Used Date Smoking Tobacco: Never Smokeless Tobacco: Never Alcohol Use Standard Drinks/Week Comments No 0 (1 standard drink = 0.6 oz pur e alcohol) Comments No Sex and Gender Information Value Date Recorded Sex Assigned at Not on file 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 Successful angioplasty as described above. PLAN: The sutures are absorbable and do not need to be removed. ??Flow within the dialysis access should be monitored and used to guide decisions about the need for repeat intervention intervention on the juxta anastomotic segment was not performed as the fistula was not currently in use and the primary indication was for arm swelling. Electronically signed by: Stewart Patino M.D. 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 She presents for worsening arm swelling. The fistula is not currently in use. ATTENDING PRESENCE: Stewart Patino M.D., the attending radiologist, was present from the beginning to the end of the procedure. SEDATION: Procedural sedation was administered under the attending physician's direction and continuous monitoring by a trained nurse specialist who was independent from those actually performing the procedure. ??Total monitored sedation time was 45 minutes. TECHNIQUE: ??The risks, benefits and alternatives were discussed and informed consent was obtained. Prior to beginning the procedure, [place] Protocol was performed to confirm the patient's identity and the planned procedure. ??The fluoroscopy time has been recorded in the electronic medical record. ??Maximum sterile barriers including cap, mask, hand hygiene, sterile gloves, sterile gown, large sterile drape and 2% chlorhexidine for cutaneous antisepsis were used. The skin over the left upper arm dialysis fistula was infiltrated with 1% lidocaine. The graft was examined with ultrasound and an image of the patent vein was recorded. ??Using realtime ultrasound guidance a needle was advanced into the graft followed by placement of a 5 american catheter. Fluoroscopy was used for all catheter and guidewire manipulations. Multiple DSA images were obtained to visualize the dialysis access from the arterial anastomosis through the vena cava. After identifying a stenosis a 8 sheath was placed. The patient was given 3000 units of heparin intravenously. The stenosis of the left brachiocephalic SVC junction was dilated using a 10 followed by a 12 mm high pressure balloon. Repeat venography was performed after each angioplasty. Stenosis of the outflow vein was angioplastied with a 10 mm balloon. At the end of the procedure, a purse string suture was placed around the entry site ??and hemostasis was achieved. ESTIMATED BLOOD LOSS: Minimal. 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 The reflux run demonstrates juxta anastomotic stenosis with a widely patent anastomosis. Post angioplasty images show a good response with a patent vein and resolution of collaterals. 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 She presents for worsening arm swelling. The fistula is not currently in use. ATTENDING PRESENCE: Stewart Patino M.D., the attending radiologist, was present from the beginning to the end of the procedure. SEDATION: Procedural sedation was administered under the attending physician's direction and continuous monitoring by a trained nurse specialist who was independent from those actually performing the procedure. Total monitored sedation time was 45 minutes. TECHNIQUE: The risks, benefits and alternatives were discussed and informed consent was obtained. Prior to beginning the procedure, [place] Protocol was performed to confirm the patient's identity and the planned procedure. The fluoroscopy time has been recorded in the electronic medical record. Maximum sterile barriers including cap, mask, hand hygiene, sterile gloves, sterile gown, large sterile drape and 2% chlorhexidine for cutaneous antisepsis were used. The skin over the left upper arm dialysis fistula was infiltrated with 1% lidocaine. The graft was examined with ultrasound and an image of the patent vein was recorded. Using realtime ultrasound guidance a needle was advanced into the graft followed by placement of a 5 american catheter. Fluoroscopy was used for all catheter and guidewire manipulations. Multiple DSA images were obtained to visualize the dialysis access from the arterial anastomosis through the vena cava. After identifying a stenosis a 8 sheath was placed. The patient was given 3000 units of heparin intravenously. The stenosis of the left brachiocephalic SVC junction was dilated using a 10 followed by a 12 mm high pressure balloon. Repeat venography was performed after each angioplasty. Stenosis of the outflow vein was angioplastied with a 10 mm balloon. At the end of the procedure, a purse string suture was placed around the entry site and hemostasis was achieved. ESTIMATED BLOOD LOSS: Minimal. 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 The reflux run demonstrates juxta anastomotic stenosis with a widely patent anastomosis. Post angioplasty images show a good response with a patent vein and resolution of collaterals. 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 Successful angioplasty as described above. PLAN: The sutures are absorbable and do not need to be removed. Flow within the dialysis access should be monitored and used to guide decisions about the need for repeat intervention intervention on the juxta anastomotic segment was not performed as the fistula was not currently in use and the primary indication was for arm swelling. Electronically signed by: Stewart Patino M.D. Arturo Khan MD PhD IMG IR PROCEDURES Final R esult documented in this encounter Visit Diagnoses Diagnosis ESRD (end stage renal disease) (CMS/HCC) (HCC)- Primary End stage renal disease ESRD (end stage renal disease) ([facility]/HCC) (HCC) End stage renal disease documented in this encounter Care Teams Transplanter Relationship Specialty Start Date End Date Merlin Biggs MD [address] [place] [address] PCP - General Internal Medicine 02/20/20 11/02/22 Gregg Peace, DEREK Party Plan Sales Unit Advisor Transplant 01/26/1907/04 Regina Contreras RN Party Plan Sales Unit Advisor 12/07/19 Charly Biggs MD [address] [address] Consulting Physician Internal Medicine 03/28/20 documented as of this encounter
--- OUTSIDE RECORDS SUMMARY | 2024-06-27 01:53 | XMS_ITS | Encounter Summary ---
Author Organization [facility] Healthcare Address [address] [place] [address] Care Team Providers Care Pie Icer Machine Name Role Phone Regina Contreras RN Unavailable [phone] Merlin Biggs MD Primary Care Provider [phone] Charly Biggs MD Unavailable [phone] Encounter Details Date Type Department Care Team (Late st Contact Info) Description 05/15/2022 12:50 PM AGRICULTURAL SPECIALIST Lab [facility] Advanced [facility] Advanced [facility] ([facility]) [address] [place] [address] [phone] Other specified hypothyroidism; Kidney replaced by transplant; Chronic kidney disease-mineral and bone disorder Social History Tobacco Use Types Packs/Day Years Used Date Smoking Tobacco: Never Smokeless Tobacco: Never Alcohol Use Standard Drinks/Week Comments No 0 (1 standard drink = 0.6 oz pur e alcohol) Comments No Sex and Gender Information Value Date Recorded Sex Assigned at Not on file Legal Sex 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 AGRICULTURAL SPECIALIST Gender Identity Not on file Sexual Orientation Not on file documented as of this encounter Plan of Treatment Not on file documented as of this encounter Procedures Procedure Name Priority Date/Time Associated Diagnosis Comments EGFR Routine 05/15/2022 12:01 PM AGRICULTURAL SPECIALIST Kidney replaced by transplant DIFFERENTIAL AUTO Routine 05/15/2022 12: 01 PM AGRICULTURAL SPECIALIST Kidney replaced by transplant CBC WITH AUTO DIFFERENTIAL Routine 05/15/2022 12:01 PM AGRICULTURAL SPECIALIST Kidney replaced by transplant TACROLIMUS LEVEL, RANDOM Routine 05/15/2022 12:01 PM AGRICULTURAL SPECIALIST Kidney replaced by transplant VITAMIN D 25 HYDROXY Routine 05/15/2022 12:01 PM AGRICULTURAL SPECIALIST Chronic kidney disease-mineral and bone disorder TSH Routine 05/15/2022 12:01 PM AGRICULTURAL SPECIALIST Other specified hypothyroidism PHOSPHORUS Routine 05/15/2022 12:01 PM AGRICULTURAL SPECIALIST Chronic kidney disease-mineral and bone disorder MAGNESIUM Routine 05/15/2022 12:01 PM AGRICULTURAL SPECIALIST Kidney replaced by transplant COMPREHENSIVE METABOLIC PANEL Routine 05/15/2022 12:01 PM AGRICULTURAL SPECIALIST Kidney replaced by transplant documented in this encounter Results * (ABNORMAL) eGFR (05/15/2022 12:01 PM AGRICULTURAL SPECIALIST) [facility] eGFR 61(L) 90 - 130 mL/min/1. 73 m2 [facility] Comment: Interpretive Data Reference Interval Normal ?>/= [...] interpretive data was last reviewed 2021. Blood 05/15/2022 12:0 1 PM AGRICULTURAL SPECIALIST 05/15/2022 12:31 PM AGRICULTURAL SPECIALIST us Nixon Hawkins MD LAB BLOOD ORDERABLES Final R esult [facility] Department [place] [address] * (ABNORMAL) Differential, auto (05/15/2022 12:01 PM AGRICULTURAL SPECIALIST) Neutrophil abs 7.0(H) 1.7 - 6.5 K/cumm [facility] Imm gran abs 0.1 0.0 - 0.1 K/cumm [facility] Lymphocyte abs 0.4(L) 0.8 - 3.3 K[facility] Monocyte abs 0.6 0.2 - 0.8 K/cumm [facility] Eosinophil abs 0.2 0.0 - 0.5 K/cumm [facility] Basophil abs 0.1 0.0 - 0.1 K/cumm [facility] Neutrophil pct 84.7 % [facility] Comment: Interpretive Data Percent cell count reference ranges are not reported, since discordance with absolute values may lead to misinterpretation of CBC data. Current Interpretive Data was last revised on 2017. Imm gran pct 0.6 % [facility] Comment: Interpretive Data Percent cell count reference ranges are not reported, since discordance with absolute values may lead to misinterpretation of CBC data. Current Interpretive Data was last revised on 2017. Lymphocyte pct 4.3 % [facility] Comment: Interpretive Data Percent cell count reference ranges are not reported, since discordance with absolute values may lead to misinterpretation of CBC data. Current Interpretive Data was last revised on 2017. Monocyte pct 7.0 % [facility] Comment: Interpretive Data Percent cell count reference ranges are not reported, since discordance with absolute values may lead to misinterpretation of CBC data. Current Interpretive Data was last revised on 2017. Eosinophil pct 2.8 % [facility] Comment: Interpretive Data Percent cell count reference ranges are not reported, since discordance with absolute values may lead to misinterpretation of CBC data. Current Interpretive Data was last revised on 2017. Basophil pct 0.6 % [facility] Comment: Interpretive Data Percent cell count reference ranges are not reported, since discordance with absolute values may lead to misinterpretation of CBC data. Current Interpretive Data was last revised on 2017. Blood 05/15/2022 12:0 1 PM AGRICULTURAL SPECIALIST 05/15/2022 12:23 PM AGRICULTURAL SPECIALIST us Nixon Hawkins MD LAB BLOOD ORDERABLES Final R esult [facility] Department [place] [address] * (ABNORMAL) CBC with auto differential (05/15/2022 12:01 PM AGRICULTURAL SPECIALIST) WBC 8.2 3.8 - 9.9 K/cumm [facility] Hgb 13.6 11.9 - 15.5 g/dL [facility] Hct 42.3 35.6 - 45.5 % [facility] Plt 184 150 - 400 K/cumm [facility] MPV 10.4 9.1 - 12.[address] [facility] RBC 4.18 3.90 - 5.20 M/cumm [facility] MCV 101.2(H) 81.3 - 96.[address] [facility] MCH 32.5 27.1 - 33.[address] [facility] MCHC 32.2(L) 32.3 - 35.7 g/dL [facility] RDW CV 12.0 11.1 - 14.9 % [facility] RDW SD 45.1 35.7 - 48.[address] [facility] NRBC abs 0.00 0.00 - 0.01 K/cumm [facility] Blood 05/15/2022 12:0 1 PM AGRICULTURAL SPECIALIST 05/15/2022 12:23 PM AGRICULTURAL SPECIALIST us Nixon Hawkins MD LAB BLOOD ORDERABLES Final R esult [facility] Department [place] [address] * (ABNORMAL) Comprehensive metabolic panel (05/15/2022 12:01 PM AGRICULTURAL SPECIALIST) Pathologist [facility] Sodium 138 135 - 145 mmol/L [facility] Potassium, pl 5.2(H) 3.3 - 4.9 mmol/L [facility] Chloride 102 97 - 110 mmol/L [facility] CO2 28 22 - 32 mmol/L [facility] Anion gap 8 2 - 15 mmol/L [facility] BUN 26(H) 8 - 25 mg/dL [facility] Creatinine 0.92 0.60 - 1.10 mg/dL [facility] Glucose 129 70 - 199 mg/dL [facility] Comment: Interpretive Data Fasting glucose >/= [...] classification and Diagnosis of Diabetes Diabetes Care 2017;40 (Suppl. 1):S11. Current interpretive data was last revised 2017. Calcium 10.9(H) 8.5 - 10.3 mg/dL [facility] Bilirubin, total 0.5 0.1 - 1.2 mg/dL [facility] Protein, pl 7.4 6.5 - 8.5 g/dL [facility] Albumin 4.2 3.5 - 5.0 g/dL [facility] Alk phos 120 40 - 130 Units/L [facility] ALT 12 7 - 45 Units/L [facility] AST 19 10 - 45 Units/L [facility] Blood 05/15/2022 12:0 1 PM AGRICULTURAL SPECIALIST 05/15/2022 12:23 PM AGRICULTURAL SPECIALIST Nixon Hawkins MD LAB BLOOD ORDERABLES Final R esult Performing Organization Address [facility] Co de Phone Number [facility] Department [place] [address] * Tacrolimus level random (05/15/2022 12:01 PM AGRICULTURAL SPECIALIST) Pathologist [facility] Tacrolimus random 10.5 ng/mL [facility] Comment: Interpretive Data Testing performed by liquid chromatography-tandem mass spectrometry. ??Therapeutic concentrations vary depending on type of transplanted organ and time elapsed since transplant. ??Typical trough concentrations range from 5-15 ng/mL. ??This test was developed and its performance characteristics determined by the [facility] consistent with CLIA requirements. ??This test has not been cleared or approved by the [place] Food and Drug administration. ??Current interpretive data last reviewed 2019. Blood 05/15/2022 12:0 1 PM AGRICULTURAL SPECIALIST 05/15/2022 12:23 PM AGRICULTURAL SPECIALIST Result [facility] Nixon Hawkins MD LAB BLOOD ORDERABLES Final R esult Performing Organization Address [facility] de Phone Number [facility] Department [place] [place] [place] [address] * Vitamin D 25 hydroxy (05/15/2022 12:01 PM AGRICULTURAL SPECIALIST) Pathologist [facility] Vitamin D 25-OH 42 30 - 80 ng/mL [facility] Blood 05/15/2022 12:0 1 PM AGRICULTURAL SPECIALIST 05/15/2022 12:23 PM AGRICULTURAL SPECIALIST Result [facility] Nixon Hawkins MD LAB BLOOD ORDERABLES Final R esult Performing Organization Address [facility] Co de Phone Number [facility] Department [place] [address] * Phosphorus (05/15/2022 12:01 PM AGRICULTURAL SPECIALIST) Phosphorus, pl 3.4 2.3 - 4.5 mg/dL [facility] Blood 05/15/2022 12:0 1 PM AGRICULTURAL SPECIALIST 05/15/2022 12:23 PM AGRICULTURAL SPECIALIST us Nixon Hawkins MD LAB BLOOD ORDERABLES Final R esult [facility] [place] [address] * Magnesium (05/15/2022 12:01 PM AGRICULTURAL SPECIALIST) Magnesium 1.7 1.4 - 2.5 mg/dL [facility] Blood 05/15/2022 12:0 1 PM AGRICULTURAL SPECIALIST 05/15/2022 12:23 PM AGRICULTURAL SPECIALIST us Nixon Hawkins MD LAB BLOOD ORDERABLES Final R esult Performing Organization Address City/[facility]/ZIP Co de Phone Number [facility] [place] [address] * TSH (05/15/2022 12:01 PM AGRICULTURAL SPECIALIST) Thyroid Stimulating Hormone 0.31 0.30 - 4.20 mcIUnit/mL 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
--- OUTSIDE RECORDS SUMMARY | 2024-06-27 01:53 | XMS_ITS | Encounter Summary ---
Author Organization [facility] Healthcare Address [address] [place] [address] Care Team Providers Care Medicare Contact Specialist Name Role Phone Regina Contreras RN Unavailable Merlin Biggs MD Primary Care Provider [phone] Charly Biggs MD Unavailable [phone] Encounter Details Date Type Department Care Team (Late st Contact Info) Description 05/01/2022 Orders Only [facility] Health Information Management [address] [place] [address] Scanning, Provider Social History Tobacco Use Types Packs/Day Years Used Date Smoking Tobacco: Never Smokeless Tobacco: Never Alcohol Use Standard Drinks/Week Comments No 0 (1 standard drink = 0.6 oz pur e alcohol) Comments No Sex and Gender Information Value Date Recorded Sex Assigned at Not on file 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 Gender Identity Not on file Sexual Orientation Not on file documented as of this encounter Plan of Treatment Not on file documented as of this encounter Procedures Procedure Name Priority Date/Time Associated Diagnosis Comments SCAN - LABS 05/01/2022 8:39 AM CDT documented in this encounter Results * SCAN - LABS (05/01/2022 8:39 AM CDT) us Provider Scanning Final Result documented in this encounter Visit Diagnoses Not on filedocumented in this encounter Care Teams Medicare Contact Specialist Relationship Specialty Start Date End Date Merlin Biggs MD [address] [place] [address] PCP - General Internal Medicine 02/20/20 11/02/22 Regina Contreras, RN Outpatient Program Coordinator 12/07/19 Charly Biggs MD [address] [address] Consulting Physician Internal Medicine 03/28/20 documented as of this encounter
--- OUTSIDE RECORDS SUMMARY | 2024-06-27 01:53 | XMS_ITS | Encounter Summary ---
Author Organization [facility] Address [address] [place] [address] Phone Care Team Providers Care Icu Staff Nurse Name Role Phone Regina Conterras RN Unavailable [phone] Merlin Biggs MD Primary Care Provider [phone] Charly Biggs MD Unavailable [phone] Encounter Details Date Type Department Care Team (Late st Contact Info) Description 05/15/2022 10:15 AM CREATIVE WRITING ENGLISH PROFESSOR Office Visit [facility] [address] [facility] Advanced Medicine 5th [place] [address] [place] [address] Nixon Hawkins MD [address] [place] [address] Kidney replaced by transplant (Primary Dx); Chronic kidney disease-mineral and bone disorder; Other specified hypothyroidism; Encounter for aftercare following kidney transplant Social History Tobacco Use Types Packs/Day Years Used Date Smoking Tobacco: Never Smokeless Tobacco: Never Tobacco Cessation:Counseling Given: Not Answered Alcohol Use Standard Drinks/Week Comments No 0 (1 standard drink = 0.6 oz pur e alcohol) Comments No Sex and Gender Information Value Date Recorded Sex Assigned at Not on file Legal Sex 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 CREATIVE WRITING ENGLISH PROFESSOR Gender Identity Not on file Sexual Orientation Not on file documented as of this encounter Last Filed Vital Signs Vital Sign Reading Time Taken Comments Blood Pressure 145/84 05/15/2022 10:21 AM CREATIVE WRITING ENGLISH PROFESSOR Pulse 77 05/15/2022 10:21 AM CREATIVE WRITING ENGLISH PROFESSOR Temperature 36.4 ??C (97.5 ??F) 05/15/2022 10:[address] Respiratory Rate - - Oxygen Saturation - - Inhaled Oxygen Concentration - - Weight 57.2 kg (126 lb) 05/15/2022 10:21 AM CREATIVE WRITING ENGLISH PROFESSOR Height 157.5 cm (5' 2 ) 05/15/2022 10:21 AM CREATIVE WRITING ENGLISH PROFESSOR Body Mass Index 23.05 05/15/2022 10:21 AM CREATIVE WRITING ENGLISH PROFESSOR documented in this encounter Progress Notes * Nixon Hawkins MD - 05/15/2022 10:15 AM CST POST KIDNEY TRANSPLANT NOTE HISTORY [...] Stent removed 03/10/13. 3. Readmission to [facility] on March 08, 2013 for orthostatic [...] Outpatient Medications: acyclovir (ZOVIRAX) 200 mg capsule, TAKE 1 CAPSULE(200 MG) BY MOUTH TWICE DAILY, Disp: 60 capsule, Rfl: 11 aspirin 81 mg tablet, Take 81 mg by mouth every morning. , Disp: , Rfl: biotin 2,500 mcg capsule, Take 1 capsule by mouth daily, Disp: , Rfl: cholecalciferol (VITAMIN D-3) 2,000 unit tablet, Take 1 tablet (2,000 Units total) by mouth daily. (Patient taking differently: Take 2,000 Units by mouth table tender sludge before breakfast. ), Disp: 30 tablet, Rfl: 11 cyanocobalamin (Vitamin B-12) 100 mcg tablet, Take 100 mcg by mouth daily , Disp: , Rfl: hydrocortisone (Proctozone-HC) 2.5 % rectal cream, 1 application to affected area, Disp: , Rfl: levothyroxine (SYNTHROID) 100 mcg tablet, Take 1 tablet (100 mcg total) by mouth table tender sludge before breakfast, Disp: 30 tablet, Rfl: 11 lisinopriL (PRINIVIL,ZESTRIL) 10 mg tablet, Take 1 tablet (10 mg total) by mouth daily, Disp: 90 tablet, Rfl: 3 metoprolol tartrate (LOPRESSOR) 75 mg tablet immediate release tablet, Take 1 tablet (75 mg total) by mouth 2 (two) times a day, Disp: 180 tablet, Rfl: 3 pravastatin (PRAVACHOL) 20 mg tablet, Take 20 mg by mouth nightly. , Disp: , Rfl: predniSONE (DELTASONE) 5 mg tablet, TAKE 1 [...] 11 trimethoprim (TRIMPEX) 100 mg tablet, Take by mouth nightly, Disp: , Rfl: Vitals BP 145/84 (BP Location: Right arm, Patient Position: Sitting) Pulse 77 Temp 36.4 ??C (97.5 ??F) Ht 157.5 cm (5' 2 ) Wt 57.2 kg (126 lb) BMI 23.05 kg/m?? PHYSICAL EXAM Generally: no acute distress; [...] Chemistries Lab Results Component Value Date SODIUM 143 01/01/2021 SCRNA 139 04/28/2022 POTASSIUM 4.0 01/01/2021 SCRK 4.3 04/28/2022 CHLORIDE 108 01/01/2021 CL 104 03/21/2013 SCRCL 103 04/28/2022 CO2 25 01/01/2021 SCRCO2 25 04/28/2022 Anemia eval: Lab Results Component Value Date WBC 5.8 01/01/2021 SCRWBC 6.2 04/28/2022 HGB 13.3 01/01/2021 SCRHGB 12.6 04/28/2022 LABPLAT 137 (L) 01/01/2021 SCRPLT 145 (A) 04/28/2022 RETIC 0.091 02/20/2013 IRON 46 08/30/2013 TRANSFERSAT 20 08/30/2013 FERRITIN 700 (H) 02/09/2013 FOLATE 12.6 02/20/2013 Renal Function Lab Results Component Value Date BUNSER 24 01/01/2021 BUNSER 27 (H) 03/28/2020 BUNSER 27 (H) 03/26/2020 SCRBUN 23 (A) 04/28/2022 SCRBUN 26 (A) 01/30/2022 SCRBUN 28 (A) 11/09/2021 CREATININE 0.90 04/28/2022 CREATININE 1.00 01/30/2022 CREATININE 0.80 11/09/2021 GFRAA 48 (L) 03/21/2013 Renal osteo eval: Lab Results Component Value Date CALCIUM 10.2 01/01/2021 SCRCA 9.8 04/28/2022 PHOS 1.8 (L) 03/21/2013 ALBUMIN 4.1 03/19/2020 SCRALB 3.9 04/28/2022 SCRALB 3.9 04/28/2022 Serologies: Lab Results Component Value Date HGBA1C 4.7 02/09/2013 HEPCAB Negative 02/09/2013 Lab Results Component Value Date TACROTR 6.3 03/28/2020 TACROTR 5.7 03/27/2020 TACROTR 6.7 03/26/2020 URINALYSIS: Lab Results Component Value Date PHURINE 7 03/19/2020 PROTURQL 2+ (A) 03/19/2020 GLUCOSEUR Negative 06/06/2021 BLOODUR Negative 03/19/2020 Spot Lab Results Component Value Date PROTUR 3+ (A) 06/06/2021 PROTUR Negative 05/24/2020 PROTUR Negative 05/26/2019 PROTCREAT 0.2 04/27/2013 No results found for: OSMOUR, UREAUR, SODIUMURR, KUR, CLUR, CALCIUMUR Lipids: Lab Results Component Value Date CHOL 140 03/19/2020 SCRTCHOL 121 04/28/2022 HDL 70 03/19/2020 LDL 70 02/09/2013 SCRLDL 51 04/28/2022 TRIG 64 03/19/2020 SCRTRIG 91 04/28/2022 LFTs: Lab Results Component Value Date SCRAST 26 04/28/2022 SCRALT 16 04/28/2022 SCRBILI 0.9 01/22/2021 Coags: Lab Results Component Value Date INR 1.1 01/01/2021 ASSESSMENT & PLAN: 1. 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 High risk medication/Immunosuppression: - The patient remains on dual immunosuppression and most recent FK level was 6.8 mg/ml on 04/28/22. - She will continue her tacrolimus and prednisone as prescribed. - She is to remain off Myfortic due to a prior history of leukopenia, and additionally her history of UTIs and shingles. 3. Lack of energy - Constitutionally intact with stable weight and without B-symptoms or infectious prodrome based ontoday's assessment - Pt was recently started on Jiardiance by her truck driver teamster and advised to self- monitor for UTI like symptoms - Will check TSH, Phos level and 25-vit-D - For now, continue levothyroxine 100 mcg QD 4. Infectious disease prophylaxis: - The patient is also on acyclovir 200 mg b.i.d. due to a history of shingles. 5. Hypertension: - Blood pressures generally well controlled on current regimen of lisinopril 10 mg every day and metoprolol 75 mg BID. 6. Hyperlipidemia - Chol 121 HDL 53 LDL 57 TG 73 ~ at goal on 06/14/21 - Monitor lipid panel annually - Continue pravastatin 20 mg QD 7. 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 - Due for flu vaccine today - Patient follows with outpatient PT and denies recent falls - Will check 25-vit-D per above 8. History of Basal Cell Ca: - Continue follow up with dermatology - Given her overall stability on current immunosuppressive regimen and lack of recurrent SCC, will defer transitioning to mTORi based therapy at this time DISPOSITION: Return to clinic in 1 year. TIVE WRITING ENGLISH PROFESSOR * Bobby Shepherd, [facility] - 05/15/2022 10:15 AM CST Abdominal Transplant Pharmacist Post-Transplant Clinic Note Changes made to Medication List on reconciliation in Clinic - Removed hydrocortisone cream - Updated dose to trimethoprim (taking as 1/2 tab nightly) - Added Jardiance 10 mg daily Additional Concerns/Issues Identified and Addressed by Clinical Turbo Generator Oiler 87 yo CF ESRD 2/2 p-ANCA vasculitis s/p DDRT 02/10/2013 ( MM, pediatric, c/b DGF and TMA- switched to nereyda, changed back to tac 2012) PMH: [place], HTN, Hypothyroidism, Shingles, CAD, Parathyroidectomy 1994, Schatzki's ring hiatal hernia Tacrolimus trough 6.8 ng/mL on 1 mg BID. If next level remains above 6, consider reducing to 1 mg AM and 0.5 mg PM to target goal 3-5 ng/mL. Off Myfortic for history of recurrent UTIs, leukopenia, Shingles On acyclovir 200 mg BID prophylaxis due to history of Shingles infection. Recommended patient receive Shingrix vaccine series. Recommend annual flut shot and COVID bivalent booster. Had COVID infection 02/2022 and treated with mAB infusion. Concerned with increased fatigue and lack of energy throughout the day. She has noticed this more since having COVID. Will check thyroid studies and Vitamin D level. Reports was recently started on Jardiance 10 mg daily over the summer. Will monitoring closely for UTIs due to history, however patient states she has not had any issues with this since starting the medication. Blood pressures controlled on lisinopril 10 mg daily and metoprolol tartrate 75 mg BID. New blue card provided to patient in clinic today. Juliet Dunlap is a 87 y.o. female transplanted on 02/10/2013 who is POD [id number] from transplantation presenting to post-transplant clinic appointment on 05/15/2022 to meet with the solid organ transplant clinical pharmacy resource tech. The clinical pharmacy resource tech reviewed the current medication list, medication timing/administration, and post-transplant log sheets with the patient and caregiver(s). Additional medication education was provided where needed. Allergies Tape [adhesive], Nitrofurantoin, Tetracycline, Tetracyclines, Levofloxacin, Codeine, and Keflex [cephalexin] Current Home Medication List Prior to Admission medications Medication Sig Start Date End Date Taking? Authorizing Provider acyclovir (ZOVIRAX) 200 mg capsule Take 1 capsule (200 mg total) by mouth 2 (two) times a day 05/15/22 Nixon Hawkins MD aspirin 81 mg tablet Take 81 mg by mouth every morning. Rahul Contreras MD biotin 2,500 mcg capsule Take 1 capsule by mouth daily Provider, MD Diego cholecalciferol (VITAMIN D-3) 2000 unit tablet Take 1 tablet (2,000 Units total) by mouth daily 05/15/22 Nixon Hawkins MD cyanocobalamin (Vitamin B-12) 100 mcg tablet Take 100 mcg by mouth daily Rahul Contreras MD Jardiance 10 mg tablet Take 10 mg by mouth daily 04/08/22 Diego Perkins MD levothyroxine (SYNTHROID) 100 mcg tablet Take 1 tablet (100 mcg total) by mouth table tender sludge before breakfast 06/20/21 06/20/22 Layla Malloy MD lisinopriL (PRINIVIL,ZESTRIL) 10 mg tablet Take 1 tablet (10 mg total) by mouth daily 03/28/22 03/28/23 Jessie Man MD metoprolol tartrate (LOPRESSOR) 75 mg tablet immediate release tablet Take 1 tablet (75 mg total) by mouth 2 (two) times a day 09/06/21 09/06/22 Valeriano Mota MD pravastatin (PRAVACHOL) 20 mg tablet Take 20 mg by mouth nightly. 12/16/16 Rahul Contreras MD predniSONE (DELTASONE) 5 mg tablet Take 1 tablet (5 mg) by mouth daily 05/15/22 Nixon Hawkins MD sodium bicarbonate 650 mg tablet Take 1 tablet (650 mg total) by mouth daily 11/13/21 11/13/22 Jessie Man MD tacrolimus (PROGRAF) 1 mg immediate-release capsule Take 1 capsule (1 mg total) by mouth 2 (two) times a day 06/04/21 06/04/22 Jessie Man MD trimethoprim (TRIMPEX) 100 mg tablet Take 50 mg by mouth nightly 07/03/21 Diego Perkins MD acyclovir (ZOVIRAX) 200 mg capsule TAKE 1 CAPSULE(200 MG) BY MOUTH TWICE DAILY 06/27/21 05/15/22 Valeriano Mota MD cholecalciferol (VITAMIN D-3) 2,000 unit tablet Take 1 tablet (2,000 Units total) by mouth daily. Patient taking differently: Take 2,000 Units by mouth table tender sludge before breakfast. 02/18/18 05/15/22 Layla Malloy MD hydrocortisone (Proctozone-HC) 2.5 % rectal cream 1 application to affected area 05/15/22 Diego Perkins MD predniSONE (DELTASONE) 5 mg tablet TAKE 1 TABLET(5 MG) BY MOUTH DAILY 09/02/21 05/15/22 Valeriano Mota MD Signed, Bobby Shepherd PharmD Clinical Specialist - Solid Organ Transplant TIVE WRITING ENGLISH PROFESSOR TIVE WRITING ENGLISH PROFESSOR documented in this encounter Plan of Treatment Not on file documented as of this encounter Procedures Procedure Name Priority Date/Time Associated Diagnosis Comments POCT URINALYSIS DIPSTICK Routine 05/15/2022 11:19 AM CREATIVE WRITING ENGLISH PROFESSOR Encounter for aftercare following kidney transplant documented in this encounter Results * TSH (05/15/2022 12:01 PM CREATIVE WRITING ENGLISH PROFESSOR) Thyroid Stimulating Hormone 0.31 0.30 - 4.20 mcIUnit/mL [facility] Blood 05/15/2022 12:0 1 PM CREATIVE WRITING ENGLISH PROFESSOR 05/15/2022 12:23 PM CREATIVE WRITING ENGLISH PROFESSOR us Nixon Hawkins MD LAB BLOOD ORDERABLES Final R esult Performing Organization Address City/[facility]/ZIP Co de Phone Number [facility] [place] [address] * Magnesium (05/15/2022 12:01 PM CREATIVE WRITING ENGLISH PROFESSOR) Pathologist [facility] Magnesium 1.7 1.4 - 2.5 mg/dL [facility] Blood 05/15/2022 12:0 1 PM CREATIVE WRITING ENGLISH PROFESSOR 05/15/2022 12:23 PM CREATIVE WRITING ENGLISH PROFESSOR us Nixon Hawkins MD LAB BLOOD ORDERABLES Final R esult [facility] [place] [address] * Phosphorus (05/15/2022 12:01 PM CREATIVE WRITING ENGLISH PROFESSOR) Phosphorus, pl 3.4 2.3 - 4.5 mg/dL [facility] Blood 05/15/2022 12:0 1 PM CREATIVE WRITING ENGLISH PROFESSOR 05/15/2022 12:23 PM CREATIVE WRITING ENGLISH PROFESSOR Nixon Hawkins MD LAB BLOOD ORDERABLES Final R esult Performing Organization Address [facility] de Phone Number [facility] Department [place] [address] * Vitamin D 25 hydroxy (05/15/2022 12:01 PM CREATIVE WRITING ENGLISH PROFESSOR) Pathologist [facility] Vitamin D 25-OH 42 30 - 80 ng/mL [facility] Blood 05/15/2022 12:0 1 PM CREATIVE WRITING ENGLISH PROFESSOR 05/15/2022 12:23 PM CREATIVE WRITING ENGLISH PROFESSOR Result [facility] Nixon Hawkins MD LAB BLOOD ORDERABLES Final R esult Performing Organization Address [facility] de Phone Number [facility] Department [place] [address] * Tacrolimus level random (05/15/2022 12:01 PM CREATIVE WRITING ENGLISH PROFESSOR) Pathologist [facility] Tacrolimus random 10.5 ng/mL [facility] Comment: Interpretive Data Testing performed by liquid chromatography-tandem mass spectrometry. ??Therapeutic concentrations vary depending on type of transplanted organ and time elapsed since transplant. ??Typical trough concentrations range from 5-15 ng/mL. ??This test was developed and its performance characteristics determined by the [facility] consistent with CLIA requirements. ??This test has not been cleared or approved by the [place] Food and Drug administration. ??Current interpretive data last reviewed 2019. Blood 05/15/2022 12:0 1 PM CREATIVE WRITING ENGLISH PROFESSOR 05/15/2022 12:23 PM CREATIVE WRITING ENGLISH PROFESSOR Result [facility] Nixon Hawkins MD LAB BLOOD ORDERABLES Final R esult Performing Organization Address [facility] de Phone Number [facility]ERNER [facility] [place] [address] * (ABNORMAL) Comprehensive metabolic panel (05/15/2022 12:01 PM CREATIVE WRITING ENGLISH PROFESSOR) Sodium 138 135 - 145 mmol/L [facility] Potassium, pl 5.2(H) 3.3 - 4.9 mmol/L [facility] Chloride 102 97 - 110 mmol/L [facility] CO2 28 22 - 32 mmol/L [facility] Anion gap 8 2 - 15 mmol/L [facility] BUN 26(H) 8 - 25 mg/dL [facility] Creatinine 0.92 0.60 - 1.10 mg/dL [facility] Glucose 129 70 - 199 mg/dL [facility] Comment: Interpretive Data Fasting glucose >/= [...] 2017. Calcium 10.9(H) 8.5 - 10.3 mg/dL [facility] Bilirubin, total 0.5 0.1 - 1.2 mg/dL [facility] Protein, pl 7.4 6.5 - 8.5 g/dL [facility] Albumin 4.2 3.5 - 5.0 g/dL [facility] Alk phos 120 40 - 130 Units/L [facility] ALT 12 7 - 45 Units/L [facility] AST 19 10 - 45 Units/L [facility] Blood 05/15/2022 12:0 1 PM CREATIVE WRITING ENGLISH PROFESSOR 05/15/2022 12:23 PM CREATIVE WRITING ENGLISH PROFESSOR us Nixon Hawkins MD LAB BLOOD ORDERABLES Final R esult [facility] [place] [address] * (ABNORMAL) CBC with auto differential (05/15/2022 12:01 PM CREATIVE WRITING ENGLISH PROFESSOR) [facility] WBC 8.2 3.8 - 9.9 K/cumm [facility] Hgb 13.6 11.9 - 15.5 g/dL [facility] Hct 42.3 35.6 - 45.5 % [facility] Plt 184 150 - 400 K/cumm [facility] MPV 10.4 9.1 - 12.3 fL [facility] RBC 4.18 3.90 - 5.20 M/cumm [facility] MCV 101.2(H) 81.3 - 96.4 fL [facility] MCH 32.5 27.1 - 33.3 pg [facility] MCHC 32.2(L) 32.3 - 35.7 g/dL [facility] RDW CV 12.0 11.1 - 14.9 % [facility] RDW SD 45.1 35.7 - 48.1 fL [facility] NRBC abs 0.00 0.00 - 0.01 K/cumm [facility] Blood 05/15/2022 12:0 1 PM CREATIVE WRITING ENGLISH PROFESSOR 05/15/2022 12:23 PM CREATIVE WRITING ENGLISH PROFESSOR us Nixon Hawkins MD LAB BLOOD ORDERABLES Final R esult [facility] [place] [address] * (ABNORMAL) POCT urinalysis dipstick (05/15/2022 11:19 AM CREATIVE WRITING ENGLISH PROFESSOR) [facility] Glucose, ur, POC 500.(A) Negative MG/DL [facility] NO LAB FOUND Bilirubin, ur, POC Negative Negative, Small, Moderate, Large [facility] NO [facility] FOUND Ketones, ur, POC Negative Negative [facility] NO LAB FOUND Specific [place], POC 1.025 1.005 - 1.030 [facility] NO LAB FOUND Blood, ur, POC Trace(A) Negative [facility] NO LAB FOUND pH, ur, POC 5.5 5.0 - 8.0 TX[facility] NO L AB FOUND Protein, ur, POC Negative Negative [facility] NO LAB FOUND Urobilinogen, urine, POC 0.2 0.2 - 1.0 mg/dL [facility] NO [facility] FOUND Nitrite, ur, POC Positive(A) Negative [facility] NO LAB FOUND Leukocytes, ur, POC Negative Negative [facility] NO LAB FOUND Lot Number [id number] TX[facility] NO LA B FOUND Urine 05/15/2022 11:1 9 AM CREATIVE WRITING ENGLISH PROFESSOR us Alma Trevizo NP POINT OF CARE TEST ORDERAB LES Final Result [facility] NO LAB FOUND documented in this encounter Visit Diagnoses Diagnosis Kidney replaced by transplant- Primary Chronic kidney disease-mineral and bone disorder Other specified hypothyroidism Encounter for aftercare following kidney transplant documented in this encounter Discontinued Medications Medication Sig Discontinue Reason Start Date End Da te predniSONE (DELTASONE) 5 mg tablet TAKE 1 TABLET(5 MG) BY MOUTH DAILY 09/02/2021 05/15/2022 cholecalciferol (VITAMIN D-3) 2,000 unit tablet Take 1 tablet (2,000 Units total) by mouth daily. 02/18/2018 05/15/2022 acyclovir (ZOVIRAX) 200 mg capsule TAKE 1 CAPSULE(200 MG) BY MOUTH TWICE DAILY 06/27/2021 05/15/2022 hydrocortisone (Proctozone-HC) 2.5 % rectal cream 1 application to affected area 05/15/2022 documented as of this encounter Historical Medications * This list may reflect changes made after this encounter. cholecalciferol (VITAMIN D-3) 2000 unit tablet Take 1 tablet (2,000 Units total) by mouth daily 30 tablet 11 05/15/2022 acyclovir (ZOVIRAX) 200 mg capsule Take 1 capsule (200 mg total) by mouth 2 (two) times a day 60 capsule 05/15/2022 05/16/2022 Jardiance 10 mg tablet Take 10 mg by mouth daily 04/08/2022 10/23/2022 predniSONE (DELTASONE) 5 mg tablet Take 1 tablet (5 mg) by mouth daily 30 tablet 11 05/15/2022 05/23/2022 added in this encounter Orders Immunization/Injection Count Last Ordered Date First Ordered Date FLU VACCINE MDCK QUAD PF 2Y+ IM - FLUCELVAX 1 05/15/2022 documented in this encounter Care Teams Icu Staff Nurse Relationship Specialty Start Date End Date Merlin Biggs MD [address] [place] [address] PCP - General Internal Medicine 02/20/20 11/02/22 Regina Contreras, RN Addiction Specialist 12/07/19 Charly Biggs MD [address] [address] Consulting Physician Internal Medicine 03/28/20 documented as of this encounter
--- OUTSIDE RECORDS SUMMARY | 2024-06-27 01:53 | XMS_ITS | Encounter Summary ---
Author Organization [facility] Address [address] [place] [address] Phone Care Team Providers Care Oncology Physician Name Role Phone Gregg Peace RN Unavailable [phone] Regina Contreras RN Unavailable [phone] Merlin Biggs MD Primary Care Provider [phone] Charly Biggs MD Unavailable [phone] Reason for Referral * (Routine) - Closed Specialty Diagnoses / Procedures Referred By Contac t Referred To Contact Diagnoses Drusen of both optic discs Procedures OCT, Optic Nerve - OU - Both Eyes Butch Maria MD [address] [facility] [address] [place] [address] Phone: tel: fax: [facility] (All Locations) Referral ID Status Reason Start Date Expiration Date Visits Re quested Visits Authorized [id number] Closed 09/14/2020 10/14/2021 1 1 SH PAINTER Encounter Details Date Type Department Care Team (Late st Contact Info) Description 09/20/2020 10:30 AM CDT Office Visit [facility] Ophthalmology [address] [facility] 2nd Floor [address] [place] [id number] Butch Maria MD [address] [facility] [address] [place] [address] Pseudophakia of both eyes (Primary Dx); Drusen of both optic discs Social History Tobacco Use Types Packs/Day Years Used Date Smoking Tobacco: Never Smokeless Tobacco: Never Alcohol Use Standard Drinks/Week Comments No 0 (1 standard drink = 0.6 oz pur e alcohol) Comments No Sex and Gender Information Value Date Recorded Sex Assigned at Not on file Legal Sex 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 FINISH PAINTER Gender Identity Not on file Sexual Orientation Not on file documented as of this encounter Progress Notes * Butch Maria MD - 09/20/2020 10:30 AM CDT Impression: Stable IOLs both eyes (OU) Optic nerve drusen OU - unchanged; baseline OCT done today Plan: Continue observation. Return in one year or prn. documented in this encounter Plan of Treatment Not on file documented as of this encounter Procedures Procedure Name Priority Date/Time Associated Diagnosis Comments OCT, OPTIC NERVE - OU - BOTH EYES Routine 09/20/2020 11:07 AM CDT Drusen of both optic discs documented in this encounter Results * OCT, Optic Nerve - OU - Both Eyes (09/20/2020 11:07 AM CDT) RNFL OS 69 micrometers RNFL OD 63 micrometers Anatomical Region Laterality Modality Head Optical Coherenc e Tomography Narrative 09/20/2020 11:07 AM CDT Right Eye Reliability was borderline. Temporal thickness was normal. Superior thickness was showing abnormal thinning. Nasal thickness was normal. Inferior thickness was showing abnormal thinning. Average RNFL thickness 63 micrometers. Left Eye Reliability was borderline. Temporal thickness was normal. Superior thickness was normal. Nasal thickness was normal. Inferior thickness was showing abnormal thinning. Average RNFL thickness 69 micrometers. Notes Baseline study OU Borderline reliable OU Optic nerve drusen OU us Butch Maria MD OPHTH TOMOGRAPHY Edited Res ult - Final documented in this encounter Visit Diagnoses Diagnosis Pseudophakia of both eyes- Primary Lens replaced by other means Drusen of both optic discs documented in this encounter Eye Exam Visual Acuity (Snellen - Linear) Right eye Left eye Both eyes Dist cc 20/25 20/20 -2 20/20 Correction: Glasses Tonometry (Applanation, 10:46 AM) Right eye Left eye Pressure 13 13 Pupils Dark Light Shape APD Right eye 2 1 Round None Left eye 2 1 Round None Visual Hills (Counting fingers) Right eye Left eye Full Full Extraocular Movement Right eye Left eye Full, Ortho Full, Ortho Neuro/Psych Oriented x3: Yes Mood/Affect: Normal Dilation Both eyes: 1.0% Mydriacyl @ 10:47 AM External Exam Right eye Left eye [...] Posterior capsular opacification Posterior chamber intraocular lens Vitreous Normal Normal Fundus Exam Right eye Left eye Disc full rims, possible drusen full rims, possible drusen C/D Ratio 0.0 0.0 Macula Normal Normal Vessels Arteriolar narrowing Arteriolar narrowing Periphery RPE changes RPE changes Wearing Rx Sphere Cylinder [place] Add Right eye -0.25 +0.75 180 +2.50 Left eye -0.50 Sphere +2.50 Manifest Refraction Pt defers Care Teams Oncology Physician Relationship Specialty Start Date End Date Merlin Biggs MD [address] [place] [address] PCP - General Internal Medicine 02/20/20 11/02/22 Gregg Peace RN Medicare Sales Executive Transplant 01/26/1907/04 Regina Contreras RN Medicare Sales Executive 12/07/19 Charly Biggs MD [address] [place] [id number] Consulting Physician Internal Medicine 03/28/20 documented as of this encounter
--- OUTSIDE RECORDS SUMMARY | 2024-06-27 01:53 | XMS_ITS | Encounter Summary ---
Author Organization [facility] Healthcare Address [address] [place] [address] Care Team Providers Care Floor Covering Installer Name Role Phone Gregg Peace RN Unavailable [phone] Regina Contreras RN Unavailable [phone] Merlin Biggs MD Primary Care Provider [phone] Charly Biggs MD Unavailable [phone] Encounter Details Date Type Department Care Team (Late st Contact Info) Description 11/26/2020 Telephone [facility] Transplant Kidney [address] [facility] [phone] [place] [address] Hernando Davila Social History Tobacco Use Types Packs/Day Years Used Date Smoking Tobacco: Never Smokeless Tobacco: Never Alcohol Use Standard Drinks/Week Comments No 0 (1 standard drink = 0.6 oz pur e alcohol) Comments No Sex and Gender Information Value Date Recorded Sex Assigned at Not on file 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 Please call to discuss. Elida Contreras RN: Called pt back to discuss. 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 Went to her creative technologist and he told her she should be seen by someone at [facility] within the next month of so for Believes she needs to see someone for this. Will e-mail Erin's scheduler maintenance Eyad to ask her to get pt scheduled. Pt will be looking out for her call. Eyad: Patient wanted to do 12/27. I tried to offer something sooner but she declined. I left her with my number and told her if things get worse to call me. Elida Contreras RN: Will continue to monitor. documented in this encounter Plan of Treatment Not on file documented as of this encounter Visit Diagnoses Not on filedocumented in this encounter Care Teams Floor Covering Installer Relationship Specialty Start Date End Date Merlin Biggs MD [address] [place] [address] PCP - General Internal Medicine 02/20/20 11/02/22 Gregg Peace RN Shredding Machine Knife Changer Transplant 01/26/1907/04 Regina Contreras RN Shredding Machine Knife Changer 12/07/19 Charly Biggs MD [address] [address] Consulting Physician Internal Medicine 03/28/20 documented as of this encounter
--- OUTSIDE RECORDS SUMMARY | 2024-06-27 01:53 | XMS_ITS | Encounter Summary ---
Author Organization [facility] Healthcare Address [address] [place] [address] Care Team Providers Care Artificial Cherry Maker Name Role Phone Gregg Peace RN Unavailable [phone] Regina Calabrese RN Unavailable [phone] Merlin Biggs MD Primary Care Provider [phone] Charly Biggs MD Unavailable [phone] Encounter Details Date Type Department Care Team (Late st Contact Info) Description 06/04/2021 Telephone [facility] Kidney [address] [facility] [phone] [place] [address] Liss Huynh Social History Tobacco Use Types Packs/Day Years Used Date Smoking Tobacco: Never Smokeless Tobacco: Never Alcohol Use Standard Drinks/Week Comments No 0 (1 standard drink = 0.6 oz pur e alcohol) Comments No Sex and Gender Information Value Date Recorded Sex Assigned at Not on file Legal Sex 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 PEOPLESOFT HRMS DEVELOPER Gender Identity Not on file Sexual Orientation Not on file documented as of this encounter Ordered Prescriptions Prescription Sig Dispense Quantity Refills Last Filled Start Date End Date tacrolimus (PROGRAF) 1 mg immediate-release capsuleIndications :Kidney replaced by transplant Take 1 capsule (1 mg total) by mouth 2 (two) times a day 60 capsule 11 06/04/2021 2 documented in this encounter Miscellaneous Notes * Addendum Note - Regina Calabrese RN - 06/04/2021 9:43 AM CSTAddended by: REGINA CALABRESE on: 06/04/2021 09:43 AM Modules accepted: Orders LESOFT HRMS DEVELOPER * Telephone Encounter - Lino Liss - 06/04/2021 9:28 AM CST Alena called needing refill on Tacro 1 mg, 30 day supply with refills. Elida Calabrese RN: Done. 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 tacrolimus (PROGRAF) 1 mg immediate-release capsule Take 1 mg by mouth 2 (two) times a day 04/29/2021 06/04/2021 added in this encounter Care Teams Artificial Cherry Maker Relationship Specialty Start Date End Date Merlin Biggs MD [address] [place] [address] PCP - General Internal Medicine 02/20/20 11/02/22 Gregg Peace RN Development Expert Transplant 01/26/1907/04 Regina Calabrese RN Development Expert 12/07/19 Charly Biggs MD [address] [address] Consulting Physician Internal Medicine 03/28/20 documented as of this encounter
--- OUTSIDE RECORDS SUMMARY | 2024-06-27 01:53 | XMS_ITS | Encounter Summary ---
Author Organization [facility] Address [address] [place] [address] Care Team Providers Care Oven Worker Name Role Phone Gregg Peace RN Unavailable [phone] Regina Contreras RN Unavailable [phone] Merlin Biggs MD Primary Care Provider [phone] Charly Biggs MD Unavailable [phone] Encounter Details Date Type Department Care Team (Late st Contact Info) Description 10/23/2020 Orders Only 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 OPERATOR Gender Identity Not on file Sexual Orientation Not on file documented as of this encounter Plan of Treatment Not on file documented as of this encounter Procedures Procedure Name Priority Date/Time Associated Diagnosis Comments SCAN - LABS 10/23/2020 11:21 AM CDT documented in this encounter Results * SCAN - LABS (10/23/2020 11:21 AM CDT) us Provider Scanning Final Result documented in this encounter Visit Diagnoses Not on filedocumented in this encounter Care Teams Oven Worker Relationship Specialty Start Date End Date Merlin Biggs MD [address] [place] [address] PCP - General Internal Medicine 02/20/20 11/02/22 Gregg Peace, DEREK Watchguard Transplant 01/26/1907/04 Regina Contreras RN Watchguard 12/07/19 Charly Biggs MD [address] [address] Consulting Physician Internal Medicine 03/28/20 documented as of this encounter
--- OUTSIDE RECORDS SUMMARY | 2024-06-27 01:53 | XMS_ITS | Encounter Summary ---
Author Organization [facility] Address [address] [place] [address] Care Team Providers Care Music Engineer Name Role Phone Gregg Peace RN Unavailable [phone] Regina Contreras RN Unavailable [phone] Merlin Biggs MD Primary Care Provider [phone] Charly Biggs MD Unavailable [phone] Encounter Details Date Type Department Care Team (Late st Contact Info) Description 05/07/2021 Orders Only [facility] Health Information Management [address] [place] [address] Scanning, Provider Social History Tobacco Use Types Packs/Day Years Used Date Smoking Tobacco: Never Smokeless Tobacco: Never Alcohol Use Standard Drinks/Week Comments No 0 (1 standard drink = 0.6 oz pur e alcohol) Comments No Sex and Gender Information Value Date Recorded Sex Assigned at Not on file Legal Sex 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 CASE LINER Gender Identity Not on file Sexual Orientation Not on file documented as of this encounter Plan of Treatment Not on file documented as of this encounter Procedures Procedure Name Priority Date/Time Associated Diagnosis Comments SCAN - LABS 05/07/2021 2:46 PM CDT documented in this encounter Results * SCAN - LABS (05/07/2021 2:46 PM CDT) us Provider Scanning Final Result documented in this encounter Visit Diagnoses Not on filedocumented in this encounter Care Teams Music Engineer Relationship Specialty Start Date End Date Merlin Biggs MD [address] [place] [address] PCP - General Internal Medicine 02/20/20 11/02/22 Gregg Peace, DEREK Cordage Sales Representative Transplant 01/26/1907/04 Regina Contreras RN Cordage Sales Representative 12/07/19 Charly Biggs MD [address] [address] Consulting Physician Internal Medicine 03/28/20 documented as of this encounter
--- OUTSIDE RECORDS SUMMARY | 2024-06-27 01:53 | XMS_ITS | Encounter Summary ---
Author Organization [facility] Address [address] [place] [address] Care Team Providers Care Kitchen Food Assembler Name Role Phone Gregg Peace RN Unavailable [phone] Regina Contreras RN Unavailable [phone] Merlin Biggs MD Primary Care Provider [phone] Charly Biggs MD Unavailable [phone] Encounter Details Date Type Department Care Team (Late st Contact Info) Description 01/22/2021 Orders Only [facility] Health Information Management [address] [place] [address] Scanning, Provider Social History Tobacco Use Types Packs/Day Years Used Date Smoking Tobacco: Never Smokeless Tobacco: Never Alcohol Use Standard Drinks/Week Comments No 0 (1 standard drink = 0.6 oz pur e alcohol) Comments No Sex and Gender Information Value Date Recorded Sex Assigned at Not on file Legal Sex 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 COMPUTER ANIMATOR Gender Identity Not on file Sexual Orientation Not on file documented as of this encounter Plan of Treatment Not on file documented as of this encounter Procedures Procedure Name Priority Date/Time Associated Diagnosis Comments SCAN - LABS 01/22/2021 2:52 PM CDT documented in this encounter Results * SCAN - LABS (01/22/2021 2:52 PM CDT) us Provider Scanning Final Result documented in this encounter Visit Diagnoses Not on filedocumented in this encounter Care Teams Kitchen Food Assembler Relationship Specialty Start Date End Date Merlin Biggs MD [address] [place] [address] PCP - General Internal Medicine 02/20/20 11/02/22 Gregg Peace, DEREK Assessment Nurse Practitioner Transplant 01/26/1907/04 Regina Contreras RN Assessment Nurse Practitioner 12/07/19 Charly Biggs MD [address] [address] Consulting Physician Internal Medicine 03/28/20 documented as of this encounter
--- OUTSIDE RECORDS SUMMARY | 2024-06-27 01:53 | XMS_ITS | Encounter Summary ---
Author Organization [facility] Healthcare Address [address] [place] [address] Care Team Providers Care Covered Buckle Assembler Name Role Phone Regina Contreras RN Unavailable Merlin Biggs MD Primary Care Provider [phone] Charly Biggs MD Unavailable [phone] Encounter Details Date Type Department Care Team (Late st Contact Info) Description 11/02/2021 Orders Only [facility] Health Information Management [address] [place] [address] Scanning, Provider Social History Tobacco Use Types Packs/Day Years Used Date Smoking Tobacco: Never Smokeless Tobacco: Never Alcohol Use Standard Drinks/Week Comments No 0 (1 standard drink = 0.6 oz pur e alcohol) Comments No Sex and Gender Information Value Date Recorded Sex Assigned at Not on file Legal Sex 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 PHOTOGRAPHY 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 Gender Identity Not on file Sexual Orientation Not on file documented as of this encounter Plan of Treatment Not on file documented as of this encounter Procedures Procedure Name Priority Date/Time Associated Diagnosis Comments SCAN - LABS 11/02/2021 3:44 PM CDT documented in this encounter Results * SCAN - LABS (11/02/2021 3:44 PM CDT) us Provider Scanning Final Result documented in this encounter Visit Diagnoses Not on filedocumented in this encounter Care Teams Covered Buckle Assembler Relationship Specialty Start Date End Date Merlin Biggs MD [address] [place] [address] PCP - General Internal Medicine 02/20/20 11/02/22 Regina Contreras, RN Internet Project Manager 12/07/19 Charly Biggs MD [address] [address] Consulting Physician Internal Medicine 03/28/20 documented as of this encounter
--- OUTSIDE RECORDS SUMMARY | 2024-06-27 01:53 | XMS_ITS | Encounter Summary ---
Author Organization [facility] Address [address] [place] [address] Care Team Providers Care Filer Helper Name Role Phone Gregg Peace RN Unavailable [phone] Regina Contreras RN Unavailable [phone] Merlin Biggs MD Primary Care Provider [phone] Charly Biggs MD Unavailable [phone] Encounter Details Date Type Department Care Team (Late st Contact Info) Description 10/25/2020 Orders Only [facility] Health Information Management [address] [place] [address] Scanning, Provider Social History Tobacco Use Types Packs/Day Years Used Date Smoking Tobacco: Never Smokeless Tobacco: Never Alcohol Use Standard Drinks/Week Comments No 0 (1 standard drink = 0.6 oz pur e alcohol) Comments No Sex and Gender Information Value Date Recorded Sex Assigned at Not on file Legal Sex 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 PAINTER SHIPYARD Gender Identity Not on file Sexual Orientation Not on file documented as of this encounter Plan of Treatment Not on file documented as of this encounter Procedures Procedure Name Priority Date/Time Associated Diagnosis Comments SCAN - LABS 10/25/2020 4:55 PM CDT documented in this encounter Results * SCAN - LABS (10/25/2020 4:55 PM CDT) us Provider Scanning Final Result documented in this encounter Visit Diagnoses Not on filedocumented in this encounter Care Teams Filer Helper Relationship Specialty Start Date End Date Merlin Biggs MD [address] [place] [address] PCP - General Internal Medicine 02/20/20 11/02/22 Gregg Peace, DEREK Manager Commercial Transplant 01/26/1907/04 Regina Contreras RN Manager Commercial 12/07/19 Charly Biggs MD [address] [address] Consulting Physician Internal Medicine 03/28/20 documented as of this encounter
--- OUTSIDE RECORDS SUMMARY | 2024-06-27 01:53 | XMS_ITS | Encounter Summary ---
Author Organization [facility] Healthcare Address [address] [place] [address] Care Team Providers Care Claims Coordinator Name Role Phone Regina Contreras RN Unavailable [phone] Merlin Biggs MD Primary Care Provider [phone] Charly Biggs MD Unavailable [phone] Encounter Details Date Type Department Care Team (Late st Contact Info) Description 11/09/2021 Orders Only [facility] Health Information Management [address] [place] [address] Scanning, Provider Social History Tobacco Use Types Packs/Day Years Used Date Smoking Tobacco: Never Smokeless Tobacco: Never Alcohol Use Standard Drinks/Week Comments No 0 (1 standard drink = 0.6 oz pur e alcohol) Comments No Sex and Gender Information Value Date Recorded Sex Assigned at Not on file Legal Sex 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 FITNESS AND WELLNESS MANAGER Gender Identity Not on file Sexual Orientation Not on file documented as of this encounter Plan of Treatment Not on file documented as of this encounter Procedures Procedure Name Priority Date/Time Associated Diagnosis Comments SCAN - LABS 11/09/2021 12:08 PM CDT documented in this encounter Results * SCAN - LABS (11/09/2021 12:08 PM CDT) us Provider Scanning Final Result documented in this encounter Visit Diagnoses Not on filedocumented in this encounter Care Teams Claims Coordinator Relationship Specialty Start Date End Date Merlin Biggs MD [address] [place] [address] PCP - General Internal Medicine 02/20/20 11/02/22 Regina Contreras, RN Embroidery Worker 12/07/19 Charly Biggs MD [address] [address] Consulting Physician Internal Medicine 03/28/20 documented as of this encounter
--- OUTSIDE RECORDS SUMMARY | 2024-06-27 01:53 | XMS_ITS | Encounter Summary ---
Author Organization [facility] Healthcare Address [address] [place] [address] Care Team Providers Care Chute Builder Name Role Phone Gregg Peace RN Unavailable [phone] Regina Contreras RN Unavailable [phone] Merlin Biggs MD Primary Care Provider [phone] Charly Biggs MD Unavailable [phone] Encounter Details Date Type Department Care Team (Late st Contact Info) Description 12/27/2020 Telephone [facility] Radiology [address] [place] [address] Jazlyn Slade RN Social History Tobacco Use Types Packs/Day Years Used Date Smoking Tobacco: Never Smokeless Tobacco: Never Alcohol Use Standard Drinks/Week Comments No 0 (1 standard drink = 0.6 oz pur e alcohol) Comments No Sex and Gender Information Value Date Recorded Sex Assigned at Not on file Legal Sex 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 CUSTODIAL AIDE Gender Identity Not on file Sexual Orientation Not on file documented as of this encounter Miscellaneous Notes * Telephone Encounter - Jazlyn Slade RN - 12/27/2020 4:45 PM CDT Preprocedure Phone Call Procedure Time Verified: Yes Arrival Time Verified: Yes Procedure Location Verified: Yes Medical History Reviewed: Yes NPO Status Reinforced: Yes Ride and Caregiver Arranged: Yes Ride Caregiver Provider: Patient Knows to Bring Current Medications: Yes Patient Knows to Bring CPAP: No Is Patient on Home Ventilator?: No Is Patient on Blood Thinners?: No Discharge Planning Living Arrangements: Spouse/significant other Support Systems: Spouse/significant other Type of Residence: Private residence Patient expects to be discharged to:: Private residence Pre op phone call completed at this time. documented in this encounter Plan of Treatment Not on file documented as of this encounter Visit Diagnoses Not on filedocumented in this encounter Care Teams Chute Builder Relationship Specialty Start Date End Date Merlin Biggs MD [address] [place] [address] PCP - General Internal Medicine 02/20/20 11/02/22 Gregg Peace RN Food And Drug Research Scientist Transplant 01/26/1907/04 Regina Contreras RN Food And Drug Research Scientist 12/07/19 Charly Biggs MD [address] [address] Consulting Physician Internal Medicine 03/28/20 documented as of this encounter
--- OUTSIDE RECORDS SUMMARY | 2024-06-27 01:53 | XMS_ITS | Encounter Summary ---
Author Organization [facility] Address [address] [place] [address] Care Team Providers Care Decorative Engraver Apprentice Name Role Phone Gregg Peace RN Unavailable [phone] Regina Contreras RN Unavailable [phone] Merlin Biggs MD Primary Care Provider [phone] Charly Biggs MD Unavailable [phone] Encounter Details Date Type Department Care Team (Late st Contact Info) Description 05/13/2021 Orders Only [facility] Transplant Kidney [address] [address] Mailstop [phone] [place] [address] Paola Guillory Kidney transplanted (Primary Dx); Encounter for long-term (current) use of medications; Hyperlipidemia, unspecified hyperlipidemia type Social History Tobacco Use Types Packs/Day Years Used Date Smoking Tobacco: Never Smokeless Tobacco: Never Alcohol Use Standard Drinks/Week Comments No 0 (1 standard drink = 0.6 oz pur e alcohol) Comments No Sex and Gender Information Value Date Recorded Sex Assigned at Not on file 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 Sex 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 Gender Identity Not on file Sexual Orientation Not on file documented as of this encounter Plan of Treatment Not on file documented as of this encounter Visit Diagnoses Diagnosis Kidney transplanted- Primary Kidney replaced by transplant Encounter for long-term (current) use of medications Encounter for long-term (current) use of other medications Hyperlipidemia, unspecified hyperlipidemia type documented in this encounter Care Teams Decorative Engraver Apprentice Relationship Specialty Start Date End Date Merlin Biggs MD [address] [place] [address] PCP - General Internal Medicine 02/20/20 11/02/22 Gregg Peace, DEREK Tobacco Sizer Transplant 01/26/1907/04 Regina Contreras RN Tobacco Sizer 12/07/19 Charly Biggs MD [address] [address] Consulting Physician Internal Medicine 03/28/20 documented as of this encounter
--- OUTSIDE RECORDS SUMMARY | 2024-06-27 01:53 | XMS_ITS | Encounter Summary ---
Author Organization [facility] Healthcare Address [address] [place] [address] Care Team Providers Care Acquisition Marketing Coordinator Name Role Phone Regina Contreras RN Unavailable Merlin Biggs MD Primary Care Provider [phone] Charly Biggs MD Unavailable [phone] Encounter Details Date Type Department Care Team (Late st Contact Info) Description 07/23/2021 Orders Only [facility] Information Management [address] [place] [address] Scanning, Provider Social History Tobacco Use Types Packs/Day Years Used Date Smoking Tobacco: Never Smokeless Tobacco: Never Alcohol Use Standard Drinks/Week Comments No 0 (1 standard drink = 0.6 oz pur e alcohol) Comments No Sex and Gender Information Value Date Recorded Sex Assigned at Not on file Legal Sex 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 INK MAKER Gender Identity Not on file Sexual Orientation Not on file documented as of this encounter Plan of Treatment Not on file documented as of this encounter Procedures Procedure Name Priority Date/Time Associated Diagnosis Comments SCAN - LABS 07/23/2021 3:34 PM INK MAKER documented in this encounter Results * SCAN - LABS (07/23/2021 3:34 PM INK MAKER) us Provider Scanning Final Result documented in this encounter Visit Diagnoses Not on filedocumented in this encounter Care Teams Acquisition Marketing Coordinator Relationship Specialty Start Date End Date Merlin Biggs MD [address] [place] [address] PCP - General Internal Medicine 02/20/20 11/02/22 Regina Contreras, RN Rose Grower 12/07/19 Charly Biggs MD [address] [address] Consulting Physician Internal Medicine 03/28/20 documented as of this encounter
--- OUTSIDE RECORDS SUMMARY | 2024-06-27 01:53 | XMS_ITS | Encounter Summary ---
Author Organization [facility] Address [address] [place] [address] Phone Care Team Providers Care Quarter Doper Name Role Phone Gregg Peace RN Unavailable [phone] Regina Contreras RN Unavailable [phone] Merlin Biggs MD Primary Care Provider [phone] Charly Biggs MD Unavailable [phone] Encounter Details Date Type Department Care Team (Late st Contact Info) Description 06/06/2021 10:45 AM LAN MANAGER Office Visit [facility] Advanced Medicine 5th [place] [address] [place] [address] Encounter for aftercare following kidney transplant Social History Tobacco Use Types Packs/Day Years Used Date Smoking Tobacco: Never Smokeless Tobacco: Never Alcohol Use Standard Drinks/Week Comments No 0 (1 standard drink = 0.6 oz pur e alcohol) Comments No Sex and Gender Information Value Date Recorded Sex Assigned at Not on file Legal Sex 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 LAN MANAGER Gender Identity Not on file Sexual Orientation Not on file documented as of this encounter Last Filed Vital Signs Vital Sign Reading Time Taken Comments Blood Pressure 170/72 06/06/2021 11:01 AM LAN MANAGER Pulse 73 06/06/2021 11:01 AM LAN MANAGER Temperature 36.4 ??C (97.5 ??F) 06/06/2021 11:[address] Respiratory Rate - - Oxygen Saturation - - Inhaled Oxygen Concentration - - Weight 60.6 kg (133 lb 9.6 oz) 06/06/2021 11:01 AM LAN MANAGER Height 157.5 cm (5' 2 ) 06/06/2021 11:01 AM LAN MANAGER Body Mass Index 24.44 06/06/2021 11:01 AM LAN MANAGER documented in this encounter Progress Notes * Belle Samaniego, [facility] - 06/06/2021 10:45 AM CST Abdominal Transplant Pharmacist Post-Transplant Clinic Note 86 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 ( MM, pediatric, c/b DGF and TMA- switched to nereyda) PMH: OH, HTN, Hypothyroidism, Shingles, CAD, Parathyroidectomy 1994, Schatzki's ring hiatal hernia Changes made to Medication List on reconciliation in Clinic - DC calcium, amlodipine, B complex, Trimethoprim, Metronidazole cream, Maxitrol, Benzocaine - Add acyclovir, biotin Additional Concerns/Issues Identified and Addressed by Clinical Screedman/Laborer - Encouraged patient to get Shingrix vaccine, 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 - Patient to get COVID booster this weekend - Needs new lab work order for 2021Jose Guadalupe in [place], [place] - BPs in 140-150s in doctors office normally 130-140s, could increase lisinopril for proteinuira - Discussed safe medications to take OTC for cold/flu symptoms - Discussed non-pharmacologic options for memory - Seeing MD this month for denosumab potentially- hasn't received dose in over 2 years - Can potentially stop sodium bicarbonate- has trouble swallowing - UA looks like possible infection- could send for culture, patient not complaining of any symptoms, will watch protein in urine - Maintain tacrolimus 1 mg BID and prednisone 5 mg daily Juliet Dunlap is a 86 y.o. female transplanted on 02/10/2013 (Kidney) who is POD 3038 from transplantation presenting to post-transplant clinic appointment on @TDATE@ to meet with the solid organ transplant clinical pharmacy general manager. The clinical pharmacy general manager reviewed the current medication list, medication timing/administration, and post-transplant log sheets with the patient and caregiver(s). Additional medication education was provided where needed. Allergies Allergies Allergen Reactions ??? Nitrofurantoin Rash ??? Tetracycline Rash ??? Tetracyclines Rash ??? Levofloxacin Unknown ? ? Codeine Dizziness, Nausea & Vomiting and Nausea Only ??? Keflex [Cephalexin] Other (See comments) Trouble with bladder Current Home Medication List Prior to Admission medications Medication Sig Start Date End Date Taking? Authorizing Provider amLODIPine (NORVASC) 10 mg tablet daily Diego Perkins MD aspirin 81 mg tablet Take 81 mg by mouth every morning. Rahul Contreras MD benzocaine (ORAJEL) 10 % mucosal gel Apply to the mouth or throat 3 (three) times a day as needed for mucositis 03/28/20 Laurie Gracia MD calcium carbonate-vitamin D3 (Calcium 600 + D,3,) 1500 mg (600 mg elemental) - 200 units per tablet CALCIUM 600+D TABLET 08/19/18 Diego Perkins MD cholecalciferol (VITAMIN D-3) 2,000 unit tablet Take 1 tablet (2,000 Units total) by mouth daily. 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 02/18/18 03/29/19 Layla Malloy MD cyanocobalamin (Vitamin B-12) 100 mcg tablet Take 100 mcg by mouth daily Rahul Contreras MD levothyroxine (SYNTHROID) 100 mcg tablet Take 1 tablet (100 mcg total) by mouth fuel distribution system operator before breakfast 08/27/20 08/27/21 Valeriano Mota MD lisinopriL (PRINIVIL,ZESTRIL) 10 mg tablet TAKE 1 TABLET BY MOUTH EARLY IN THE MORNING WITH BREAKFAST 03/01/21 Patience Pfeiffer MD metoprolol tartrate (LOPRESSOR) 75 mg tablet immediate release tablet Take 1 tablet (75 mg total) by mouth 2 (two) times a day 05/22/20 05/22/21 Layla Malloy MD metroNIDAZOLE (METROCREAM) 0.75 % cream 03/07/21 ProviderDigeo MD neomycin-polymyxin B-dexAMETHasone (Maxitrol) 3.5 mg/g-10,000 unit/g-0.1 % ointment Apply a thin film to left lower eyelid twice daily. 07/04/20 Paul Bradley, RIANNA pravastatin (PRAVACHOL) 20 mg tablet Take 20 mg by mouth nightly. 12/16/16 Rahul Contreras MD predniSONE (DELTASONE) 5 mg tablet Take 1 tablet (5 mg) by mouth daily 08/23/20 Ritchie Rodriguez MD sodium bicarbonate 650 mg tablet Take 1 tablet (650 mg total) by mouth daily 11/09/20 11/09/21 Valeriano Mota MD tacrolimus (PROGRAF) 1 mg immediate-release capsule Take 1 capsule (1 mg total) by mouth 2 (two) times a day 06/04/21 06/04/22 Jessie Man MD trimethoprim (TRIMPEX) 100 mg tablet TAKE 1/2 TABLET BY MOUTH AT BEDTIME 01/02/21 ProviderDiego MD vitamin B complex with vitamin C tablet VITAMIN C TABLET 08/19/18 Diego Perkins MD Kristin Progar, PharmD, BCPS Abdominal Transplant Clinical Specialist MANAGER * Clem Valderrama MD - 06/06/2021 10:45 AM CST POST KIDNEY TRANSPLANT NOTE HISTORY OF PRESENT ILLNESS: Ms. Dunlap is an 86 y.o. female with end-stage renal disease secondary [...] output. Stent removed 03/10/13. 3. Readmission to [facility] on March 08, 2013 for orthostatic hypertension [...] clinic visit, Juliet Dunlap has had no major hospitalizations this year and no falls. She underwent a fistulogram with angioplasty after follow up with Dr Khan. No plan to tie down the fistula at this time. Denies cough, chest pain, dyspnea. Denies fevers, dysuria, urgency, or frequency. Reports compliance with immunosuppression. All other systems negative. CURRENT MEDICATIONS: Current Outpatient Medications: ??? acyclovir (ZOVIRAX) 200 mg capsule, Take 200 mg by mouth 2 (two) times a day, Disp: , Rfl: ??? biotin 2,500 mcg capsule, Take 1 capsule by mouth daily, Disp: , Rfl: ??? amLODIPine (NORVASC) 10 mg tablet, daily, Disp: , Rfl: ??? aspirin 81 mg tablet, Take 81 mg by mouth every morning. , Disp: , Rfl: ??? benzocaine (ORAJEL) 10 % mucosal gel, Apply to the mouth or throat 3 (three) times a day as needed for mucositis, Disp: 5.3 g, Rfl: 0 ??? calcium carbonate-vitamin D3 (Calcium 600 + D,3,) 1500 mg (600 mg elemental) -200 units per tablet, CALCIUM 600+D TABLET, Disp: , Rfl: ??? cholecalciferol (VITAMIN D-3) 2,000 unit tablet, Take 1 tablet (2,000 Units total) by mouth daily. 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 ), Disp: 30 tablet, Rfl: 11 ??? cyanocobalamin (Vitamin B-12) 100 mcg tablet, Take 100 mcg by mouth daily , Disp: , Rfl: ??? levothyroxine (SYNTHROID) 100 mcg tablet, Take 1 tablet (100 mcg total) by mouth fuel distribution system operator before breakfast, Disp: 30 tablet, Rfl: 11 ??? lisinopriL (PRINIVIL,ZESTRIL) 10 mg tablet, TAKE 1 TABLET BY MOUTH EARLY IN THE MORNING WITH BREAKFAST, Disp: 90 tablet, Rfl: 3 ??? metoprolol tartrate (LOPRESSOR) 75 mg tablet immediate release tablet, Take 1 tablet (75 mg total) by mouth 2 (two) times a day, Disp: 180 tablet, Rfl: 3 ??? metroNIDAZOLE (METROCREAM) 0.75 % cream, , Disp: , Rfl: ??? neomycin-polymyxin B-dexAMETHasone (Maxitrol) 3.5 mg/g-10,000 unit/g-0.1 % ointment, Apply a thin film to left lower eyelid twice daily., Disp: 1 Tube, Rfl: 0 ??? pravastatin (PRAVACHOL) 20 mg tablet, Take 20 mg by mouth nightly. , Disp: , Rfl: ??? predniSONE (DELTASONE) 5 mg tablet, Take 1 tablet (5 mg) by mouth daily, Disp: 30 tablet, Rfl: 11 ??? sodium bicarbonate 650 mg tablet, Take 1 tablet (650 mg total) by mouth daily, Disp: 90 tablet,Rfl: 3 ??? tacrolimus (PROGRAF) 1 mg immediate-release capsule, Take 1 capsule (1 mg total) by mouth 2 (two) times a day, Disp: 60 capsule, Rfl: 11 ??? trimethoprim (TRIMPEX) 100 mg tablet, TAKE 1/2 TABLET BY MOUTH AT BEDTIME, Disp: , Rfl: ??? vitamin B complex with vitamin C tablet, VITAMIN C TABLET, Disp: , Rfl: Vitals BP 170/72 Pulse 73 Temp 36.4 ??C (97.5 ??F) Ht 157.5 cm (5' 2 ) Wt 60.6 kg (133 lb 9.6 oz) BMI 24.44 kg/m?? PHYSICAL EXAM Generally: no acute distress; [...] Component Value Date SODIUM 143 01/01/2021 SCRNA 138 05/02/2021 POTASSIUM 4.0 01/01/2021 SCRK 4.1 05/02/2021 CHLORIDE 108 01/01/2021 CL 104 03/21/2013 SCRCL 106 05/02/2021 CO2 25 01/01/2021 SCRCO2 26 05/02/2021 Anemia eval: Lab Results Component Value Date WBC 5.8 01/01/2021 SCRWBC 5.4 05/02/2021 HGB 13.3 01/01/2021 SCRHGB 12.6 05/02/2021 LABPLAT 137 (L) 01/01/2021 SCRPLT 118 (A) 05/02/2021 RETIC 0.091 02/20/2013 IRON 46 08/30/2013 TRANSFERSAT 20 08/30/2013 FERRITIN 700 (H) 02/09/2013 FOLATE 12.6 02/20/2013 Renal Function Lab Results Component Value Date BUNSER 24 01/01/2021 BUNSER 27 (H) 03/28/2020 BUNSER 27 (H) 03/26/2020 SCRBUN 25 (A) 05/02/2021 SCRBUN 24 (A) 01/22/2021 SCRBUN 24 (A) 10/23/2020 CREATININE 0.70 05/02/2021 CREATININE 0.80 01/22/2021 CREATININE 0.83 01/01/2021 GFRAA 48 (L) 03/21/2013 Renal osteo eval: Lab Results Component Value Date CALCIUM 10.2 01/01/2021 SCRCA 9.9 05/02/2021 PHOS 1.8 (L) 03/21/2013 ALBUMIN 4.1 03/19/2020 SCRALB 4.0 05/02/2021 SCRALB 4.0 05/02/2021 Serologies: Lab Results Component Value Date HGBA1C [...] Component Value Date CHOL 140 03/19/2020 SCRTCHOL 127 05/02/2021 HDL 70 03/19/2020 LDL 70 02/09/2013 SCRLDL 41 05/02/2021 TRIG 64 03/19/2020 SCRTRIG 107 05/02/2021 LFTs: Lab Results Component Value Date SCRAST 26 05/02/2021 SCRALT 22 05/02/2021 SCRBILI 0.9 01/22/2021 Coags: Lab Results Component Value Date INR 1.1 01/01/2021 ASSESSMENT & PLAN: 1. 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 High risk medication/Immunosuppression: The patient is currently on dual immunosuppression therapy most recent FKL was 5.3. She will continue her tacrolimus and prednisone as prescribed. She is toremain off Myfortic due to a history of leukopenia. 3. Infectious disease prophylaxis: The patient is also on acyclovir 200 mg b.i.d. due to a history of shingles. 4. Hypertension: Blood pressures well controlled at home 130s/80s 5. Health maintenance: She received her flu shot for fall 2019, is uptodate on cancer screening, and is planning on dermatology follow up 6. History of Basal Cell Ca: Continue follow up with dertmatology 7.. Healthcare Maintenance: Patient to get COVID booster this weekend. Will follow regarding osteoporosis. Needs new lab work order for 2021Jose Guadalupe in [place], [place] DISPOSITION: Return to clinic in 1 year. MANAGER documented in this encounter Plan of Treatment Not on file documented as of this encounter Procedures Procedure Name Priority Date/Time Associated Diagnosis Comments POCT URINALYSIS DIPSTICK Routine 06/06/2021 11:09 AM LAN MANAGER Encounter for aftercare following kidney transplant documented in this encounter Results * (ABNORMAL) POCT urinalysis dipstick (06/06/2021 11:09 AM LAN MANAGER) Glucose, ur, POC Negative Negative mg/dL TXP NO LAB FOUND Bilirubin, ur, POC Negative Negative, Small, Moderate, Large TXP NO LAB FOUND Ketones, ur, POC Negative Negative TXP NO LAB FOUND Specific [place], POC 1.030 1.005 - 1.030 TXP NO LAB FOUND Blood, ur, POC Negative Negative TXP NO LAB FOUND pH, ur, POC 5.5 5.0 - 8.0 TXP NO L AB FOUND Protein, ur, POC 3+(A) Negative TXP NO LAB FOUND Urobilinogen, urine, POC 0.2 0.2 - 1.0 mg/dL TXP NO LAB FOUND Nitrite, ur, POC Positive(A) Negative TXP NO LAB FOUND Leukocytes, ur, POC Trace(A) Negative TXP NO LAB FOUND Lot Number [id number] TXP NO LA B FOUND Urine 06/06/2021 11:0 9 AM LAN MANAGER Alma Trevizo NP POINT OF CARE TEST ORDERAB LES Final Result TXP NO LAB FOUND documented in this encounter Visit Diagnoses Diagnosis Encounter for aftercare following kidney transplant documented in this encounter Discontinued Medications Medication Sig Discontinue Reason Start Date End Da te calcium carbonate-vitamin D3 (Calcium 600 + D,3,) 1500 mg (600 mg elemental) -200 units per tablet CALCIUM 600+D TABLET 08/19/2018 06/06/2021 amLODIPine (NORVASC) 10 mg tablet daily 06/06/2021 vitamin B complex with vitamin C tablet VITAMIN C TABLET 08/19/2018 06/06/2021 trimethoprim (TRIMPEX) 100 mg tablet TAKE 1/2 TABLET BY MOUTH AT BEDTIME 01/02/2021 06/06/2021 neomycin-polymyxin B-dexAMETHasone (Maxitrol) 3.5 mg/g-10,000 unit/g-0.1 % ointment Apply a thin film to left lower eyelid twice daily. 07/04/2020 06/06/2021 metroNIDAZOLE (METROCREAM) 0.75 % cream 03/07/2021 06/06/2021 benzocaine (ORAJEL) 10 % mucosal gel Apply to the mouth or throat 3 (three) times a day as needed for mucositis 03/28/2020 06/06/2021 documented as of this encounter Historical Medications * This list may reflect changes made after this encounter. biotin 2,500 mcg capsule Take 1 capsule by mouth daily 07/16/2023 acyclovir (ZOVIRAX) 200 mg capsule Take 200 mg by mouth 2 (two) times a day 06/27/2021 added in this encounter Care Teams Quarter Doper Relationship Specialty Start Date End Date Merlin Biggs MD [address] [place] [address] PCP - General Internal Medicine 02/20/20 11/02/22 Gregg Peace RN [facility] Transplant 01/26/1907/04 Regina Contreras RN [facility] 12/07/19 Charly Biggs MD [address] [address] Consulting Physician Internal Medicine 03/28/20 documented as of this encounter
--- OUTSIDE RECORDS SUMMARY | 2024-06-27 01:53 | XMS_ITS | Encounter Summary ---
Author Organization [facility] Address [address] [place] [address] Phone Care Team Providers Care Residential Youth Counselor Name Role Phone Regina Contreras RN Unavailable [phone] Merlin Biggs MD Primary Care Provider [phone] Charly Biggs MD Unavailable [phone] Reason for Referral * Diagnostic Imaging (Routine) - Closed Specialty Diagnoses / Procedures Referred By Jairo meyer Referred To Contact Diagnoses Cervical spondylosis with myelopathy Procedures XR Spine Cervical W Flexion And Extension 6 or More Views Srinivasa Gimenez MD Phone: tel: fax: [facility] [address] [place] [id number] Phone: tel: Referral ID Status Reason Start Date Expiration Date Visits Re quested Visits Authorized [id number] Closed 09/17/2021 10/17/2022 1 1 Reason for Visit * Reason Comments Follow-up Encounter Details Date Type Department Care Team (Late st Contact Info) Description 09/19/2021 11:20 AM CDT Office Visit [facility] Orthopaedic Surgery [address] [place] [address] Medical Office Building [address] [place] [id number] Srinivasa Gimenez MD [address] [facility] [address] [place] [address] Fusion of spine of cervical region (Primary Dx); Cervical spondylosis with myelopathy Social History Tobacco Use Types Packs/Day Years Used Date Smoking Tobacco: Never Smokeless Tobacco: Never Alcohol Use Standard Drinks/Week Comments No 0 (1 standard drink = 0.6 oz pur e alcohol) Comments No Sex and Gender Information Value Date Recorded Sex Assigned at Not on file Legal Sex 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 [employer] Gender Identity Not on file Sexual Orientation Not on file documented as of this encounter Last Filed Vital Signs Vital Sign Reading Time Taken Comments Blood Pressure - - Pulse - - Temperature - - Respiratory Rate - - Oxygen Saturation - - Inhaled Oxygen Concentration - - Weight 60.3 kg (133 lb) 09/19/2021 11:46 AM CDT Height 157.5 cm (5' 2 ) 09/19/2021 11:46 AM CDT Body Mass Index 24.33 09/19/2021 11:46 AM CDT documented in this encounter Patient Instructions * Patient Instructions* Leah Mcgraw RN - 09/19/2021 11:20 AM CDT Thank you for your visit today. Dr. Srinivasa Gimenez has recommended the following treatment: Follow up at needed. Please let me know if you have any questions. Leah Mcgraw RN, ONC Clinical Nurse Coordinator to Dr. Srinivasa Gimenez Visit: [email or web address] [phone] [email or web address] documented in this encounter Progress Notes * Srinivasa Gimenez MD - 09/19/2021 11:20 AM CDT Established Patient Visit Chief Complaint Follow-up for fracture History of Present Illness This is a very pleasant 85-year-old female who sustained an atypical hangman's fracture on 03/19/2020 that was treated non operatively. 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 She presents today for clinical check in. She presents today with her today. She has reports that she is actually improving. She reports that her balance is the same she is not using a cane or walker. She reports that she is better buttoning buttons. She then reports that her handwriting is still not great. Past Medical History, Past Surgical History, Initial Review of Medications, Drug Allergies, Social History, Family History, and Review of Systems Past Medical History: Diagnosis Date ??? Abdominal pain ??? Bruising ??? CAD (coronary artery disease) ??? CAD (coronary artery disease) 03/21/2020 ??? Drusen of optic disc, bilateral ??? Fatigue ??? Frequent urination ??? GERD (gastroesophageal reflux disease) ??? Gout ??? Heart murmur ??? Hiatal hernia schatzki ring ??? HL (hearing loss) ??? Hyperlipidemia ??? Hypertension ??? Hypothyroidism ??? Migraines ??? Peritoneal dialysis status ([facility] ([facility]) From 2009 to 2012 prior to transplant ??? Postoperative delirium 02/2013 hallucinations s/p kidney transplant, saw flashes of color and puffs of smoke ??? Renal failure received 1 episode chemo to try to save Kidney in 2008 ??? Shingles 2008 Past Surgical History: Procedure Laterality Date ??? AV FISTULA PLACEMENT Left with declotting ??? CARDIAC CATHETERIZATION 10/2008 ??? CATARACT EXTRACTION Left 05/05/2018 ??? CATARACT EXTRACTION W/ INTRAOCULAR LENS IMPLANT Right ? ? CENTRAL LINE PLACEMENT > 5 YEARS N/A 02/16/2013 ??? CYSTOSCOPY 08/2013 with placement of TVT-O midurethral ring ??? HERNIA REPAIR 09/2008 with Schatzki's ring ??? KIDNEY TRANSPLANT 02/2013 ??? PARATHYROIDECTOMY 1994 ??? RHINOPLASTY ??? TONSILLECTOMY 1943 ??? VEIN LIGATION AND STRIPPING 1992 Current Outpatient Medications Medication Sig Dispense Refill ??? acyclovir (ZOVIRAX) 200 mg capsule Take 1 capsule (200 mg total) by mouth 2 (two) times a day 60 capsule 11 ??? aspirin 81 mg tablet Take 81 mg by mouth every morning. ??? benzocaine (ORAJEL) 10 % mucosal gel Apply to the mouth or throat 3 (three) times a day as needed for mucositis 5.3 g 0 ??? cholecalciferol (VITAMIN D-3) 2,000 unit tablet Take 1 tablet (2,000 Units total) by mouth daily. 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 ) 30 tablet 11 ??? cyanocobalamin (Vitamin B-12) 100 mcg tablet Take 100 mcg by mouth daily ??? levothyroxine (SYNTHROID) 100 mcg tablet Take 1 tablet (100 mcg total) by mouth horse racing analyst before breakfast 30 tablet 11 ??? lisinopriL (PRINIVIL,ZESTRIL) 10 mg tablet Take 1 tablet (10 mg total) by mouth horse racing analyst before breakfast 90 tablet 3 ??? metoprolol tartrate (LOPRESSOR) 75 mg tablet immediate release tablet Take 1 tablet (75 mg total) by mouth 2 (two) times a day 180 tablet 3 ??? neomycin-polymyxin B-dexAMETHasone (Maxitrol) 3.5 mg/g-10,000 unit/g-0.1 % ointment Apply a thin film to left lower eyelid twice daily. 1 Tube 0 ??? pravastatin (PRAVACHOL) 20 mg tablet Take 20 mg by mouth nightly. ??? predniSONE (DELTASONE) 5 mg tablet Take 1 tablet (5 mg) by mouth daily 30 tablet 11 ??? tacrolimus (PROGRAF) 0.5 mg capsule Take 1 capsule (0.5 mg total) by mouth every 12 (twelve) hours 60 capsule 0 No current facility-administered medications for this visit. Allergies Allergen Reactions ??? Nitrofurantoin Rash ??? Tetracycline Rash ??? Tetracyclines Rash ??? Levofloxacin Unknown ? ? Codeine Dizziness, Nausea & Vomiting and Nausea Only ??? Keflex [Cephalexin] Other (See comments) Trouble with bladder Social History Socioeconomic History ??? Marital status: Spouse name: Not on file ??? Number of children: Not on file ??? Years of education: Not on file ??? Highest education level: Not on file Occupational History ??? Not on file Tobacco Use ??? Smoking status: Never Smoker ??? Smokeless tobacco: Never Used Substance and Sexual Activity ??? Alcohol use: No ??? Drug use: No ??? Sexual activity: Defer Other Topics Concern ??? Not on file Social History Narrative ??? Not on file Social Determinants of Health Financial Resource Strain: Not on file Food Insecurity: Not on file Transportation Needs: Not on file Physical Activity: Not on file Stress: Not on file Social Connections: Not on file Intimate Partner Violence: Not on file Housing Stability: Not on file Family History Problem Relation Age of Onset ??? Cancer Other Family history of Cancer; ??? Kidney disease Other Family history of Renal disease; ??? Stroke Other Family history of Stroke; ??? Pancreatic cancer Mother ??? Heart disease Father Review of Systems Review of Systems Physical Examination WEIGHT/BMI: Estimated body mass index is 24.33 kg/m?? as calculated from the following: Height as of this encounter: 157.5 cm (5' 2 ). Weight as of this encounter: 60.3 kg (133 lb). Constitutional: Oriented to person, place, and time and well-developed, well- nourished, and in no distress. HENT: Neck symmetric without obvious masses. Head: Normocephalic and atraumatic. Right Ear: External ear normal. Left Ear: External ear normal. Eyes: Pupils are equal, round, and reactive to light. Conjunctivae and EOM are normal. Cardiovascular: extremities WWP. Pulmonary/Chest: Effort normal. Abdominal: Soft. Exhibits no distension. Neurological: Alert and oriented to person, place, and time. Skin: Skin is warm and dry. Psychiatric: Mood, memory, affect and judgment normal. Spine Exam: The patient ambulates with a normal gait. She is able to stand on her toes, stand on her heels, andis able to stand on each leg independently. The patient can perform a tandem heel to toe gait. The patient is able to squat down and rise back up. She stands in normal coronal and sagittal alignment. Neurologic: Motor strength examination demonstrates normal motor strength throughout the upper and lower extremities. Sensation to light touch is intact. She has 2+ biceps reflexes on the right 1+ on the left. She has 3+ patellar reflexes bilaterally. Shine sign is negative bilaterally. Babinski sign is downgoing bilaterally. She has 2-3 beats of clonus bilaterally. Review of Plain Radiographs/Studies X-rays of her cervical spine demonstrate no evidence of instability on flexion- extension for prior and from today. Her prior imaging was reviewed. She has a CT scan at the time of her original injury in March of 2020 that demonstrates the atypical hangman's fracture. The report was reviewed. She has a repeat CT scan in June of 2020 that demonstrates routine healing. On 1 side the hangman's fracture looks healed. On the other side there is still persistent fracture line. The report was reviewed. MRI from 03/20/2020 was reviewed. She has mild canal stenosis C5-C6. Impression/Diagnosis Atypical hangman's fracture, treated non operatively with routine healing over 1 year out. Signs and symptoms consistent with mild cervical myelopathy without severe stenosis on imaging. Treatment Plan I discussed with the patient my impression, the imaging findings, and treatment plan in detail witha focus on the etiology, natural history, and management of her symptoms. Regarding her fracture she is doing well. I think the patient is stable. Her compression on imaging is mild. There is fluid around the thecalsac. As such I think we can follow her on a p.r.n. basis. She knows to come see me if her balance and coordination becomes worse. Srinivasa Gimenez MD Appeals Officer of Orthopaedic Vp Of Customer Experience StrategyAppeals Officer of Neurological Surgery [facility] in [facility], [place] [employer] done by [employer]; therefore, variances and inaccuracies may occur. I reviewed the patient problem list pertinent to the visit today, but the entire patient problem list was not reviewed today. documented in this encounter Plan of Treatment Not on file documented as of this encounter Results * XR Spine Cervical W Flexion And Extension 6 or More Views (09/19/2021 11:34 AM CDT) Anatomical Region Laterality Modality Spine N/A Computed Radiogr aphy 09/19/2021 11:4 2 AM CDT Impressions 09/19/2021 11:42 AM CDT Poor visualization of the patient's C2 fracture. Multilevel cervical spine degenerative disc disease worst and severe C5-6. Electronically signed by: Parvez Connor M.D. Narrative 09/19/2021 11:42 AM CDT EXAMINATION: Cervical spine 6 views HISTORY: C2 fracture, cervical spondylosis FINDINGS: 6 views of the cervical spine were performed with comparison made to 03/14/2021. There is mild anterolisthesis of C4 on C5 and C6 on C7. This does not change with flexion or extension. There is multilevel degenerative disc disease worst and severe at C5-6. Carotid atherosclerosis is noted. The patient's nondisplaced dens fracture is not well seen. No listhesis is noted at C1-C2. Procedure Note Parvez Connor MD PhD - 09/19/2021 EXAMINATION: Cervical spine 6 views HISTORY: C2 fracture, cervical spondylosis FINDINGS: 6 views of the cervical spine were performed with comparison made to 03/14/2021. There is mild anterolisthesis of C4 on C5 and C6 on C7. This does not change with flexion or extension. There is multilevel degenerative disc disease worst and severe at C5-6. Carotid atherosclerosis is noted. The patient's nondisplaced dens fracture is not well seen. No listhesis is noted at C1-C2. IMPRESSION: Poor visualization of the patient's C2 fracture. Multilevel cervical spine degenerative disc disease worst and severe C5-6. Electronically signed by: Parvez Connor M.D. 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 trimethoprim (TRIMPEX) 100 mg tablet Take 0.5 tablets (50 mg total) by mouth nightly 07/03/2021 4 hydrocortisone (Proctozone-HC) 2.5 % rectal cream 1 application to affected area 2 amLODIPine (NORVASC) 10 mg tablet 1 tablet 2 added in this encounter Care Teams Residential Youth Counselor Relationship Specialty Start Date End Date Merlin Biggs MD [address] [place] [address] PCP - General Internal Medicine 02/20/20 11/02/22 Regina Contreras, RN Knot Borer 12/07/19 Charly Biggs MD [address] [address] Consulting Physician Internal Medicine 03/28/20 documented as of this encounter
--- OUTSIDE RECORDS SUMMARY | 2024-06-27 01:53 | XMS_ITS | Encounter Summary ---
Author Organization [facility] Address [address] [place] [address] Care Team Providers Care Bleach Machine Operator Name Role Phone Gregg Peace RN Unavailable [phone] Regina Contreras RN Unavailable [phone] Merlin Biggs MD Primary Care Provider [phone] Charly Biggs MD Unavailable [phone] Reason for Referral * Diagnostic Imaging (Routine) - Closed Specialty Diagnoses / Procedures Referred By Jairo meyer Referred To Contact Radiology Diagnoses ESRD (end stage renal disease) (CMS/HCC) (HCC) Procedures IR Dialysis Fistulagram W CONTROL MANAGER Peripheral Segment Arturo Khan MD PhD Phone: tel: fax: [address] [address] Referral ID Status Reason Start Date Expiration Date Visits Re quested Visits Authorized [id number] Closed 12/21/2020 01/20/2022 1 1 Reason for Visit * Diagnostic Imaging (Routine) - Closed Specialty Diagnoses / Procedures Referred By Jairo meyer Referred To Contact Radiology Diagnoses ESRD (end stage renal disease) (CMS/HCC) (HCC) Procedures IR Dialysis Fistulagram W CONTROL MANAGER Peripheral Segment Arturo Khan MD PhD Phone: tel: fax: [facility] [address] [place] [address] Referral ID Status Reason Start Date Expiration Date Visits Re quested Visits Authorized [id number] Closed 12/21/2020 01/20/2022 1 1 Encounter Details Date Type Department Care Team (Late st Contact Info) Description 01/01/2021 9:32 AM CDT - 01/01/2021 2:27 PM CDT Hospital Encounter [facility] Radiology [address] [place] [address] Arturo Khan MD PhD 1 [facility] [address] [place] [place] [id number] Stewart Patino MD [address] [facility] [address] [place], [place] [id number] ESRD (end stage renal disease) ([facility]) Discharge Disposition: Discharge to home or self care Social History Tobacco Use Types Packs/Day Years Used Date Smoking Tobacco: Never Smokeless Tobacco: Never Alcohol Use Standard Drinks/Week Comments No 0 (1 standard drink = 0.6 oz pur e alcohol) Comments No Sex and Gender Information Value Date Recorded Sex Assigned at Not on file Legal Sex 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 Gender Identity Not on file Sexual Orientation Not on file documented as of this encounter Last Filed Vital Signs Vital Sign Reading Time Taken Comments Blood Pressure 147/73 01/01/2021 1:50 PM CDT Pulse 71 01/01/2021 1:50 PM CDT Temperature 36.6 ??C (97.8 ??F) 01/01/2021 10:19 AM C DT Respiratory Rate 18 01/01/2021 1:50 PM CDT Oxygen Saturation 92% 01/01/2021 1:50 PM CDT Inhaled Oxygen Concentration - - Weight 59.9 kg (132 lb) 01/01/2021 10:19 AM CDT Height 157.5 cm (5' 2 ) 01/01/2021 10:19 AM CDT Body Mass Index 24.14 01/01/2021 10:19 AM CDT documented in this encounter Discharge Diagnoses Diagnosis Stenosis of other vascular prosthetic devices, implants and grafts, initial encounter ([facility]) - STENOSIS OF OTHER VASCULAR PROSTHETIC DEVICES, IMPLANTS AND GRAFTS, INITIAL ENCOUNTER Surgical operation with anastomosis, bypass or graft as the cause of abnormal reaction of the patient, or of later complication, without mention of misadventure at the time of the procedure - SURGICAL OPERATION WITH ANASTOMOSIS, BYPASS OR GRAFT THE CAUSE OF ABNORMAL REACTION OF THE PATIEN Unspecified place or not applicable - UNSPECIFIED PLACE OR NOT APPLICABLE Hypertensive chronic kidney disease with stage 5 chronic kidney disease or end stage renal disease ([facility]) - HYPERTENSIVE CHRONIC KIDNEY DISEASE WITH STAGE 5 CHRONIC KIDNEY DISEASE OR END STAGE RENAL DISEASE End stage renal disease ([facility]) ([facility]) - END STAGE RENAL DISEASE End stage renal disease Kidney transplant status - KIDNEY TRANSPLANT STATUS Dependence on renal dialysis ([facility]) ([facility]) - DEPENDENCE ON RENAL DIALYSIS Renal dialysis status Atherosclerotic heart disease of [place] coronary artery without angina pectoris - ATHEROSCLEROTIC HEART DISEASE OF [place] CORONARY ARTERY WITHOUT ANGINA PECTORIS Gastro-esophageal reflux disease without esophagitis - GASTRO-ESOPHAGEAL REFLUX DISEASE WITHOUT ESOPHAGITIS Hyperlipidemia, unspecified - HYPERLIPIDEMIA, UNSPECIFIED Hypothyroidism, unspecified - HYPOTHYROIDISM, UNSPECIFIED Allergy status to other antibiotic agents - ALLERGY STATUS TO OTHER ANTIBIOTIC AGENTS Allergy status to narcotic agent - ALLERGY STATUS TO NARCOTIC AGENT documented in this encounter Discharge Instructions * Discharge Instructions* Stewart Patino MD - 01/01/2021 1:34 PM CDT Interventional Radiology Outpatient Discharge Instructions/Note Diagnosis:Fistula malfunction Procedure:Fistulagram Limitations: [] No lifting greater than 5 pounds with [] Right [] Left arm for 7 days. [x] You received medication that may affect your judgement. ?? Stay with a responsible person today. ?? Do not drive, operate machinery, make any legal or important decisions, or drink alcohol until tomorrow. ?? No smoking unless another adult is present. [...] close your incision. See teaching sheet. [x] Keep site clean and dry. [] You may bathe or shower tomorrow. [] Change the dressing daily and if it becomes wet or dirty. [] Cover entire area with plastic and tape down edges before showering to keep site clean and dry. [] The suture at your dialysis access site may be removed by the dialysis staff on ___/___/___ (date). Drainage Tube Care: [] Flush tube with [] 5ml Normal Saline [] 10 ml Normal Saline [] Other: [] Flush tube [] once a day [] Other: [] Record drainage output every day. [] Your tube is capped. Uncap the tube after or if severe pain or fever develops. (Please see teaching sheet). [] Call Interventional Radiology if there is leakage around the tube or the tube stops draining. To contact an Interventional Radiologist at [facility] call [phone] Thursday through Thursday from 7:30am-4:30pm. At all other times call [phone] and ask that the Interventional Radiologist be paged. To contact an Interventional Radiologist at [facility] call [phone] Thursday through Thursday from 7:30am-3:30pm. Special instructions: Please call Interventional Radiology for any procedure related questions or problems including: ?? Extreme swelling or bruising at the site. ?? Unusual drainage or bleeding from procedure site. ?? Fever of 101.5 F for more than 24 hours. ?? Severe procedure related pain. Follow up care: [] Return to Interventional Radiology on at Please come to: [] 3rd Floor [facility] [] 4th floor [facility] [] [facility] [] [facility] Please call [phone] to schedule a follow up appointment. You need to return in documented in this encounter Medications at Time of Discharge cyanocobalamin (Vitamin B-12) 100 mcg tablet Take 1 tablet (100 mcg total) by mouth daily acyclovir (ZOVIRAX) 200 mg capsule Take 1 capsule (200 mg total) by mouth 2 (two) times a day 60 capsule 11 06/04/2020 1 sodium bicarbonate 650 mg tablet Take 1 tablet (650 mg total) by mouth daily 90 tablet 3 11/09/2020 2 aspirin 81 mg tabletIndications :prevention of thrombosis Take 81 mg by mouth every morning. 3 benzocaine (ORAJEL) 10 % mucosal gel Apply to the mouth or throat 3 (three) times a day as needed for mucositis 5.3 g 03/28/2020 1 levothyroxine (SYNTHROID) 100 mcg tablet Take 1 tablet (100 mcg total) by mouth porter head before breakfast 30 tablet 11 08/27/2020 1 lisinopriL (PRINIVIL,ZESTRIL ) 10 mg tabletIndications :hypertension Take 1 tablet (10 mg total) by mouth porter head before breakfast 90 tablet 3 01/09/2020 1 metoprolol tartrate (LOPRESSOR) 75 mg tablet immediate release tablet Take 1 tablet (75 mg total) by mouth 2 (two) times a day 180 tablet 3 05/22/2020 2 neomycin-polymyxi n B-dexAMETHasone (Maxitrol) 3.5 mg/g-10,000 unit/g-0.1 % ointment Apply a thin film to left lower eyelid twice daily. 1 Tube 07/04/2020 1 pravastatin (PRAVACHOL) 20 mg tablet Take 1 tablet (20 mg total) by mouth nightly 12/16/2016 4 predniSONE (DELTASONE) 5 mg tabletIndications :Organ Transplant Rejection Take 1 tablet (5 mg) by mouth daily 30 tablet 11 08/23/2020 2 calcium carbonate-vitamin D3 (Calcium 600 + D,3,) 1500 mg (600 mg elemental) -200 units per tablet CALCIUM 600+D TABLET 08/19/2018 1 cholecalciferol (VITAMIN D-3) 2,000 unit tablet Take 1 tablet (2,000 Units total) by mouth daily. 30 tablet 11 02/18/2018 2 tacrolimus (PROGRAF) 0.5 mg capsuleIndication s:immunosuppressi on Take 1 capsule (0.5 mg total) by mouth every 12 (twelve) hours 60 capsule 03/28/2020 1 vitamin B complex with vitamin C tablet VITAMIN C TABLET 08/19/2018 1 documented as of this encounter Discharge Disposition Disposition Code Departure Means Destination Discharge to home or self care documented in this encounter Nursing Notes * Tram Villeda RN - 01/01/2021 2:24 PM CDT Patient awake and alert. No acute distress noted. Patient endorsed dizziness, discussed with MD, per MD Patino ok to discharge home. IV removed intact. Patient given written and verbal discharge instructions. Patient verbalized understanding. Patient wheelchair to patient drop off area, discharged to home with . Discharge instructions shared with . 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 Angioplasty of BCV to 12 mm and outflow to 10mm with improved flow. Complications: None Estimated Blood Loss: < 30 ml Specimens: None Condition: Stable Full report to follow. * Pre-Procedure Note - Gunnar Shaikh MD - 01/01/2021 11:00 AM CDT Radiology Long Sedation Form Indication: LUE swelling Planned Procedure: L AVG fistulogram Planned Sedation/Anesthesia: minimal sedation History: 85F w ESRD sp kidney transplant in 2012, who also has a LUE arteriovenous graft placed in 2007 complicated by venous hypertension. Flow in the left brachial artery is 760 mL - 1 L. She reports left arm swelling for 3-4 weeks. No discoloration. No arm pain or numbness. PMH/PSH: Past Medical History: Diagnosis Date ??? Abdominal pain ??? Bruising ??? CAD (coronary artery disease) ??? CAD (coronary artery disease) 03/21/2020 ??? Drusen of optic disc, bilateral ??? Fatigue ??? Frequent urination ??? GERD (gastroesophageal reflux disease) ??? Gout ??? Heart murmur ??? Hiatal hernia schatzki ring ??? HL (hearing loss) ??? Hyperlipidemia ??? Hypertension ??? Hypothyroidism ??? Migraines ??? Peritoneal dialysis status ([facility]) From 2009 to 2012 prior to [...] ??? PARATHYROIDECTOMY 1994 ??? RHINOPLASTY ??? TONSILLECTOMY 1944 ??? VEIN LIGATION AND STRIPPING 1992 ROS: Review of systems per HPI and otherwise all other systems are negative Allergies: Nitrofurantoin, Tetracycline, Tetracyclines, Levofloxacin, Codeine, and Keflex [cephalexin] Current Meds: No outpatient medications have been marked as taking for the 01/01/21 encounter (Appointment) with DAVID Sahu IR 404. Physical exam: Gen: AAOx3 Heart: RRR. NR&R Pulm: CTA bl GI: Soft, NT, ND, normal bowel sounds LUE: Swollen compared to left. Normal sensation. No pain. Palpable pulsatile thrill. Audible pulsatile bruit. Collateral veins noted tracking up to the central left chest. Most Recent Vitals: There were no vitals filed for this visit. Airway Assessment: normal Labs/Imaging: Laboratory review: reviewed the laboratory result(s) which demonstrate normal platelets of 147. No recent coags. Assessment: 85F w ESRD sp kidney transplant in 2012, who also has a LUE arteriovenous graft placed in 2007 complicated by venous hypertension. Flow in the left brachial artery is 760 mL - 1 L. She reports left arm swelling for 3-4 weeks. Pt cleared for procedure. ASA Score: ASA 3 - Patient with moderate systemic disease with functional limitations NPO time: after midnight Benefits, risks and alternatives of procedure and planned sedation have been discussed with the patient and/or their public health representative. All questions answered and they agree to proceed. documented in this encounter Plan of Treatment Not on file documented as of this encounter Procedures Procedure Name Priority Date/Time Associated Diagnosis Comments DIALYSIS FISTULAGRAM W CONTROL MANAGER PERIPHERAL SEGMENT Schedule Routine, Read Routine (OP Routine) 01/01/2021 1:35 PM CDT ESRD (end stage renal disease) ([facility]) documented in this encounter Results * IR Dialysis Fistulagram W CONTROL MANAGER Peripheral Segment (01/01/2021 1:35 PM CDT) Anatomical [...] was obtained. Prior to beginning the procedure, Maribel Protocol was performed to confirm the patient's [...] graft followed by placement of a 5 danish catheter. Fluoroscopy was used for all catheter [...] was obtained. Prior to beginning the procedure, Maribel Protocol was performed to confirm the patient's [...] graft followed by placement of a 5 danish catheter. Fluoroscopy was used for all catheter [...] Diagnoses Diagnosis ESRD (end stage renal disease) ([facility]) ([facility]) End stage renal disease documented in this encounter Administered Medications Inactive Administered Medications - up to 3 most recent administrations Medication Order MAR Action Action Date Dose Rate Site fentaNYL (SUBLIMAZE) preservative free injection intravenous, Code/trauma/sedation medication, Starting on Thu01/01/21 at 1245 Given 01/01/2021 1:08 PM CDT 25 mcg Given 01/01/2021 1:03 PM CDT 25 mcg Given 01/01/2021 12:56 PM CDT 25 mcg heparin 1,000 unit/mL injection Code/trauma/sedation medication, Starting on Thu01/01/21 at 1251 Given 01/01/2021 12:51 PM CDT 3,000 Units lidocaine PF (XYLOCAINE) 10 mg/mL (1 %) preservative free injection Code/trauma/sedation medication, Starting on Thu01/01/21 at 1247, Intra-Procedure (IR), Indications: Administration of Local AnesthesiaIndications:Administrati on of Local Anesthesia Given 01/01/2021 1:20 PM CDT 5 mL Left Arm Given 01/01/2021 12:47 PM CDT 5 mL L eft Arm midazolam (VERSED) 1 mg/mL preservative free injection intravenous, Administer over 2 Minutes, Code/trauma/sedation medication, Starting on Thu01/01/21 at 1245, Intra-Procedure (IR) Given 01/01/2021 1:08 PM CDT 0. 5 mg Given 01/01/2021 12:56 PM CDT 0.5 mg Given 01/01/2021 12:45 PM CDT 0.5 mg sodium chloride 0.9% flush 0.5-20 mL 0.5-20 mL, intra-catheter, Every 8 hours scheduled, First dose on Thu01/01/21 at 1400, Pre-Procedure (IR), Flush volume based on line type and size. sodium chloride 0.9% flush 0.5-20 mL 0.5-20 mL, intra-catheter, As needed, line care, Starting on Thu01/01/21 at 1017, Pre-Procedure (IR), Flush volume based on line type and size. Flush before and after each use. Given 01/01/2021 10:22 AM CDT 10 mL sodium chloride 0.9% flush 10-20 mL 10-20 mL, intra-catheter, As needed, line care, with each use, Starting on Thu01/01/21 at 1017, Pre-Procedure (IR), Flush volume based on line type, size, and protocol. sodium chloride 0.9% flush 5-10 mL 5-10 mL, intra-catheter, Every 12 hours scheduled, First dose on Thu01/01/21 at 1100, Pre-Procedure (IR), Flush volume based on line type, size, and protocol. sodium chloride 0.9% infusion 30 mL/hr, intravenous, Continuous, Starting on Thu01/01/21 at 1100, Pre-Procedure (IR) New Bag 01/01/2021 10:22 AM CDT 30 mL/hr 30 mL/hr documented in this encounter Active and Recently Administered Medications Times are shown in CDT. Scheduled Medication Order 12/30/2020 12/31/2020 01/01/2021 sodium chloride 0.9% flush 0.5-20 mL 0.5-20 mL, intra-catheter, Every 8 hours scheduled, First dose on Thu01/01/21 at 1400, Pre-Procedure (IR), Flush volume based on line type and size. 1400 (Due) sodium chloride 0.9% flush 5-10 mL 5-10 mL, intra-catheter, Every 12 hours scheduled, First dose on Thu01/01/21 at 1100, Pre-Procedure (IR), Flush volume based on line type, size, and protocol. 1100 (Due) Continuous Medication Order 12/30/2020 12/31/2020 01/01/2021 sodium chloride 0.9% infusion 30 mL/hr, intravenous, Continuous, Starting on Thu01/01/21 at 1100, Pre-Procedure (IR) 1022 (New Bag - Prov ider: Nato Vargas RN) PRN Medication Order 12/30/2020 12/31/2020 01/01/2021 fentaNYL (SUBLIMAZE) preservative free injection (COMPLETED) intravenous, Code/trauma/sedation medication, Starting on Thu01/01/21 at 1245 1245 (Given - Provid er: Katharina Gonzales RN)1256 (Given - Provider: Katharina Gonzales RN)1303 (Given - Provider: Katharina Gonzales RN)1308 (Given - Provider: Katharina Gonzales RN) heparin 1,000 unit/mL injection (COMPLETED) Code/trauma/sedation medication, Starting on Thu01/01/21 at 1251 1251 (Given - Provid er: Katharina Gonzales RN) lidocaine PF (XYLOCAINE) 10 mg/mL (1 %) preservative free injection (COMPLETED) Code/trauma/sedation medication, Starting on Thu01/01/21 at 1247, Intra-Procedure (IR), Indications: Administration of Local Anesthesia 1247 (Given - Provid er: Katharina Gonzales RN)1320 (Given - Provider: Stewart Patino MD) midazolam (VERSED) 1 mg/mL preservative free injection (COMPLETED) intravenous, Administer over 2 Minutes, Code/trauma/sedation medication, Starting on Thu01/01/21 at 1245, Intra-Procedure (IR) 1245 (Given - Provid er: Katharina Gonzales RN)1256 (Given - Provider: Katharina Gonzales RN)1308 (Given - Provider: Katharina Gonzales RN) sodium chloride 0.9% flush 0.5-20 mL 0.5-20 mL, intra-catheter, As needed, line care, Starting on 01/01/21 at 1017, Pre-Procedure (IR), Flush volume based on line type and size. Flush before and after each use. 1022 (Given - Provid er: Nato Vargas, RN) sodium chloride 0.9% flush 10-20 mL 10-20 mL, intra-catheter, As needed, line care, with each use, Starting on Thu01/01/21 at 1017, Pre-Procedure (IR), Flush volume based on line type, size, and protocol. documented in this encounter Orders Medications Ordered That Taras ht Not Have Been Administered Count Last Ordered Date First Ordered Date sodium chloride 0.9% flush 0.5-20 mL 1 12/05 sodium chloride 0.9% flush 10-20 mL 1 01/01 sodium chloride 0.9% flush 5-10 mL 1 2020 documented in this encounter Care Teams Bleach Machine Operator Relationship Specialty Start Date End Date Merlin Biggs MD [address] [place] [address] PCP - General Internal Medicine 02/20/20 11/02/22 Gregg Peace, DEREK Complex Case Manager Transplant 01/26/1907/04 Regina Contreras RN Complex Case Manager 12/07/19 Charly Biggs MD [address] [address] Consulting Physician Internal Medicine 03/28/20 documented as of this encounter
--- OUTSIDE RECORDS SUMMARY | 2024-06-27 01:53 | XMS_ITS | Encounter Summary ---
Author Organization [facility] Address [address] [place] [address] Care Team Providers Care Health Plan Specialist Name Role Phone Regina Contreras RN Unavailable [phone] Merlin Biggs MD Primary Care Provider [phone] Charly Biggs MD Unavailable [phone] Encounter Details Date Type Department Care Team (Late st Contact Info) Description 07/26/2021 Orders Only [facility] Health Information Management [address] [place] [address] Scanning, Provider Social History Tobacco Use Types Packs/Day Years Used Date Smoking Tobacco: Never Smokeless Tobacco: Never Alcohol Use Standard Drinks/Week Comments No 0 (1 standard drink = 0.6 oz pur e alcohol) Comments No Sex and Gender Information Value Date Recorded Sex Assigned at Not on file Legal Sex 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 HYPO DIPPER Gender Identity Not on file Sexual Orientation Not on file documented as of this encounter Plan of Treatment Not on file documented as of this encounter Procedures Procedure Name Priority Date/Time Associated Diagnosis Comments SCAN - LABS 07/26/2021 2:09 AM HYPO DIPPER documented in this encounter Results * SCAN - LABS (07/26/2021 2:09 AM HYPO DIPPER) us Provider Scanning Final Result documented in this encounter Visit Diagnoses Not on filedocumented in this encounter Care Teams Health Plan Specialist Relationship Specialty Start Date End Date Merlin Biggs MD [address] [place] [address] PCP - General Internal Medicine 02/20/20 11/02/22 Regina Contreras, RN Medical Educator 12/07/19 Charly Biggs MD [address] [address] Consulting Physician Internal Medicine 03/28/20 documented as of this encounter
--- OUTSIDE RECORDS SUMMARY | 2024-06-27 01:53 | XMS_ITS | Encounter Summary ---
Author Organization Formerly [facility] Address [address] [place] [address] Care Team Providers Care Spanish Professor Name Role Phone Gregg Peace RN Unavailable [phone] Regina Contreras RN Unavailable [phone] Merlin Biggs MD Primary Care Provider [phone] Charly Biggs MD Unavailable [phone] Encounter Details Date Type Department Care Team (Late st Contact Info) Description 01/01/2021 9:45 AM CDT Lab [facility] 1st [place] [address] ESRD (end stage renal disease) ([facility]) Social History Tobacco Use Types Packs/Day Years Used Date Smoking Tobacco: Never Smokeless Tobacco: Never Alcohol Use Standard Drinks/Week Comments No 0 (1 standard drink = 0.6 oz pur e alcohol) Comments No Sex and Gender Information Value Date Recorded Sex Assigned at Not on file 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 Gender Identity Not on file Sexual Orientation Not on file documented as of this encounter Plan of Treatment Not on file documented as of this encounter Procedures Procedure Name Priority Date/Time Associated Diagnosis Comments DIFFERENTIAL AUTO Routine 01/01/2021 9:3 7 AM CDT ESRD (end stage renal disease) ([facility]) CBC WITH AUTO DIFFERENTIAL Routine 01/01/2021 9:37 AM CDT ESRD (end stage renal disease) ([facility]) PROTIME-INR Routine 01/01/2021 9:37 AM CDT ESRD (end stage renal disease) ([facility]) BASIC METABOLIC PANEL Routine 01/01/2021 9:37 AM CDT ESRD (end stage renal disease) ([facility]) documented in this encounter Results * (ABNORMAL) Differential, auto (01/01/2021 9:37 AM CDT) Neutrophil abs 4.3 1.7 - 6.5 K/cumm [facility] Imm gran abs 0.0 0.0 - 0.1 K/cumm [facility] Lymphocyte abs 0.6(L) 0.8 - 3.3 K/cumm [facility] Monocyte abs 0.6 0.2 - 0.8 K/cumm [facility] Eosinophil abs 0.3 0.0 - 0.5 K/cumm [facility] Basophil abs 0.0 0.0 - 0.1 K/cumm [facility] Neutrophil pct 73.2 % [facility] Comment: Interpretive Data Percent cell count reference ranges are not reported, since discordance with absolute values may lead to misinterpretation of CBC data. Current Interpretive Data was last revised on 2017. Imm gran pct 0.3 % [facility] Comment: Interpretive Data Percent cell count reference ranges are not reported, since discordance with absolute values may lead to misinterpretation of CBC data. Current Interpretive Data was last revised on 2017. Lymphocyte pct 9.8 % [facility] Comment: Interpretive Data Percent cell count reference ranges are not reported, since discordance with absolute values may lead to misinterpretation of CBC data. Current Interpretive Data was last revised on 2017. Monocyte pct 11.0 % [facility] Comment: Interpretive Data Percent cell count reference ranges are not reported, since discordance with absolute values may lead to misinterpretation of CBC data. Current Interpretive Data was last revised on 2017. Eosinophil pct 5.0 % [facility] Comment: Interpretive Data Percent cell count reference ranges are not reported, since discordance with absolute values may lead to misinterpretation of CBC data. Current Interpretive Data was last revised on 2017. Basophil pct 0.7 % [facility] Comment: Interpretive Data Percent cell count reference ranges are not reported, since discordance with absolute values may lead to misinterpretation of CBC data. Current Interpretive Data was last revised on 2017. Blood specimen (specimen) 01/01/2021 9:37 AM CDT 01/01/2021 10:04 AM CDT Stewart Patino MD LAB BLOOD ORDERABLES Final Result Performing Organization Address [facility] Co de Phone Number [facility] [place] [address] * Protime-INR (01/01/2021 9:37 AM CDT) PT 12.4 9.5 - 13.6 sec [facility] INR 1.1 0.9 - 1.2 [facility] Comment: Interpretive data Oral anticoagulant therapeutic ranges: Venous thromboembolism prophylaxis or treatment: 2.0-3.0 CARDIOLOGY Standard range: 2.0-3.0 High-intensity range: 2.5-3.5 Refer to indication-specific guidelines for appropriate target ranges for prosthetic heart valve replacement. Current interpretive data was last revised on 2019. Blood specimen (specimen) 01/01/2021 9:37 AM CDT 01/01/2021 10:06 AM CDT Stewart Patino MD LAB BLOOD ORDERABLES Final Result Performing Organization Address [facility] Co de Phone Number [facility] [place] [place] [address] * (ABNORMAL) CBC with auto differential (01/01/2021 9:37 AM CDT) WBC 5.8 3.8 - 9.9 K/cumm [facility] Hgb 13.3 11.9 - 15.5 g/dL [facility] Hct 40.0 35.6 - 45.5 % [facility] Plt 137(L) 150 - 400 K/cumm [facility] MPV 10.6 9.1 - 12.3 fL [facility] RBC 4.00 3.90 - 5.20 M/cumm [facility] MCV 100.0(H) 81.3 - 96.4 fL [facility] MCH 33.3 27.1 - 33.3 pg [facility] MCHC 33.3 32.3 - 35.7 g/dL [facility] RDW CV 12.4 11.1 - 14.9 % [facility] RDW SD 45.1 35.7 - 48.1 fL [facility] NRBC abs 0.00 0.00 - 0.01 K/cumm [facility] Blood specimen (specimen) 01/01/2021 9:37 AM CDT 01/01/2021 10:04 AM CDT us Stewart Patino MD LAB BLOOD ORDERABLES Final Result [facility] Department [place] [address] * Basic metabolic panel (01/01/2021 9:37 AM CDT) Sodium 143 135 - 145 mmol/L [facility] Potassium, pl 4.0 3.3 - 4.9 mmol/L [facility] Chloride 108 97 - 110 mmol/L [facility] CO2 25 22 - 32 mmol/L [facility] Anion gap 10 2 - 15 mmol/L [facility] BUN 24 8 - 25 mg/dL [facility] Creatinine 0.83 0.60 - 1.10 mg/dL [facility] Glucose 87 70 - 199 mg/dL [facility] Comment: Interpretive Data Fasting glucose >/= [...] interpretive data was last revised 2017. Calcium 10.2 8.5 - 10.3 mg/dL [facility] Blood specimen (specimen) 01/01/2021 9:37 AM CDT 01/01/2021 10:04 AM CDT us Stewart Patino MD LAB BLOOD ORDERABLES Final Result [facility] Department [place] [address] documented in this encounter Visit Diagnoses Diagnosis ESRD (end stage renal disease) (CMS/HCC) ([facility]) End stage renal disease documented in this encounter Care Teams Spanish Professor Relationship Specialty Start Date End Date Merlin Biggs MD [address] [place] [address] PCP - General Internal Medicine 02/20/20 11/02/22 Gregg Peace RN Emergency Department Nurse Transplant 01/26/1907/04 Regina Contreras RN Emergency Department Nurse 12/07/19 Charly Biggs MD [address] [address] Consulting Physician Internal Medicine 03/28/20 documented as of this encounter
--- OUTSIDE RECORDS SUMMARY | 2024-06-27 01:53 | XMS_ITS | Encounter Summary ---
Author Organization [facility] Address [address] [place] [address] Care Team Providers Care Facility Manager Name Role Phone Gregg Peace RN Unavailable [phone] Regina Contreras RN Unavailable [phone] Merlin Biggs MD Primary Care Provider [phone] hCarly Biggs MD Unavailable [phone] Reason for Referral * Diagnostic Imaging (Routine) - Closed Specialty Diagnoses / Procedures Referred By Contac t Referred To Contact Diagnoses Closed traumatic minimally displaced fracture of second cervical vertebra, initial encounter (HCC) Procedures XR Spine Cervical Complete 4 or 5 Views Srinivasa Gimenez MD Phone: tel: fax: [facility] Radiology [address] [place] [address] [place] [phone] Phone: tel: Referral ID Status Reason Start Date Expiration Date Visits Re quested Visits Authorized [id number] Closed 01/25/2021 02/24/2022 1 1 Reason for Visit * Diagnostic Imaging (Routine) - Closed Specialty Diagnoses / Procedures Referred By Contac t Referred To Contact Diagnoses Closed traumatic minimally displaced fracture of second cervical vertebra, initial encounter (HCC) Procedures XR Spine Cervical Complete 4 or 5 Views Srinivasa Gimenez MD Phone: tel: fax: [facility] [address] [address] Phone: tel: Referral ID Status Reason Start Date Expiration Date Visits Re quested Visits Authorized [id number] Closed 01/25/2021 02/24/2022 1 1 Encounter Details Date Type Department Care Team (Latest Contact Info) Description 03/14/2021 9:56 AM CDT - 03/14/2021 11:59 PM CDT Hospital Encounter [id number] [address] [place] [address] [address] [address] Srinivasa Gimenez MD [address] [address] Closed traumatic minimally displaced fracture of second cervical vertebra, initial encounter (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 3 benzocaine (ORAJEL) 10 % mucosal gel Apply to the mouth or throat 3 (three) times a day as needed for mucositis 5.3 g 03/28/2020 1 calcium carbonate-vitamin D3 (Calcium 600 + D,3,) 1500 mg (600 mg elemental) -200 units per tablet CALCIUM 600+D TABLET 08/19/2018 1 cholecalciferol (VITAMIN D-3) 2,000 unit tablet Take 1 tablet (2,000 Units total) by mouth daily. 30 tablet 11 02/18/2018 2 levothyroxine (SYNTHROID) 100 mcg tablet Take 1 tablet (100 mcg total) by mouth sales marketing coordinator before breakfast 30 tablet 11 08/27/2020 1 lisinopriL (PRINIVIL,ZESTRIL ) 10 mg tablet TAKE 1 TABLET BY MOUTH EARLY IN THE MORNING WITH BREAKFAST 90 tablet 3 03/01/2021 2 metoprolol tartrate (LOPRESSOR) 75 mg tablet immediate release tablet Take 1 tablet (75 mg total) by mouth 2 (two) times a day 180 tablet 3 05/22/2020 2 metroNIDAZOLE (METROCREAM) 0.75 % cream 03/07/2021 1 neomycin-polymyxi n B-dexAMETHasone (Maxitrol) 3.5 mg/g-10,000 unit/g-0.1 % ointment Apply a thin film to left lower eyelid twice daily. 1 Tube 07/04/2020 1 pravastatin (PRAVACHOL) 20 mg tablet Take 1 tablet (20 mg total) by mouth nightly 12/16/2016 4 predniSONE (DELTASONE) 5 mg tabletIndications :Organ Transplant Rejection Take 1 tablet (5 mg) by mouth daily 30 tablet 11 08/23/2020 2 tacrolimus (PROGRAF) 0.5 mg capsuleIndication s:immunosuppressi on Take 1 capsule (0.5 mg total) by mouth every 12 (twelve) hours 60 capsule 03/28/2020 1 trimethoprim (TRIMPEX) 100 mg tablet TAKE 1/2 TABLET BY MOUTH AT BEDTIME 01/02/2021 1 vitamin B complex with vitamin C tablet VITAMIN C TABLET 08/19/2018 1 documented as of this encounter Discharge Disposition Disposition Code Departure Means Destination Discharge to home or self care documented in this encounter Plan of Treatment Not on file documented as of this encounter Procedures Procedure Name Priority Date/Time Associated Diagnosis Comments XR SPINE CERVICAL COMPLETE 4 OR 5 VW Schedule Routine, Read Routine (OP Routine) 03/14/2021 10:15 AM CDT Closed traumatic minimally displaced fracture of second cervical vertebra, initial encounter (HCC) documented in this encounter Results * XR Spine Cervical Complete 4 or 5 Views (03/14/2021 10:15 AM CDT) Anatomical Region Laterality Modality Spine N/A Computed Radiogr aphy 03/14/2021 10:3 1 AM CDT Impressions 03/14/2021 10:31 AM CDT Partially obscured nondisplaced dens fracture. 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 Electronically signed by: Parvez Connor M.D. Narrative 03/14/2021 10:31 AM CDT EXAMINATION: Cervical spine 4 views HISTORY: C2 [...] left lateral mass of C1 on C2. Procedure Note Parvez Connor MD PhD - 03/14/2021 EXAMINATION: Cervical spine 4 views HISTORY: C2 [...] left lateral mass of C1 on C2. IMPRESSION: Partially obscured nondisplaced dens fracture. 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 Electronically signed by: Parvez Connor M.D. Srinivasa Gimenez MD IMG XR PROCEDURES Final Result documented in this encounter Visit Diagnoses Diagnosis Closed traumatic minimally displaced fracture of second cervical vertebra, initial encounter (HCC) documented in this encounter Care Teams Facility Manager Relationship Specialty Start Date End Date Merlin Biggs MD [address] [place] [address] PCP - General Internal Medicine 02/20/20 11/02/22 Gregg Peace RN Recycling Director Transplant 01/26/1907/04 Regina Contreras RN Recycling Director 12/07/19 Charly Biggs MD [address] [address] Consulting Physician Internal Medicine 03/28/20 documented as of this encounter
--- OUTSIDE RECORDS SUMMARY | 2024-06-27 01:53 | XMS_ITS | Encounter Summary ---
Author Organization [facility] Address [address] [place] [address] Care Team Providers Care Buzzle Buffer Name Role Phone Gregg Peace RN Unavailable [phone] Regina Contreras RN Unavailable [phone] Merlin Biggs MD Primary Care Provider [phone] Charly Biggs MD Unavailable [phone] Reason for Referral * Diagnostic Imaging (Routine) - Closed Specialty Diagnoses / Procedures Referred By Jairo t Referred To Contact Diagnoses Closed displaced fracture of second cervical vertebra with routine healing, unspecified fracture morphology, subsequent encounter Procedures XR Spine Cervical Complete 4 or 5 Views Srinivasa Gimenez MD Phone: tel: fax: [facility] [id number] [place] [phone] Referral ID Status Reason Start Date Expiration Date Visits Re quested Visits Authorized [id number] Closed 09/13/2020 10/13/2021 1 1 GATION SYSTEM OPERATOR Reason for Visit * Diagnostic Imaging (Routine) - Closed Specialty Diagnoses / Procedures Referred By Jairo meyer Referred To Contact Diagnoses Closed displaced fracture of second cervical vertebra with routine healing, unspecified fracture morphology, subsequent encounter Procedures XR Spine Cervical Complete 4 or 5 Views Srinivasa Gimenez MD Phone: tel: fax: [facility] [address] [address] Referral ID Status Reason Start Date Expiration Date Visits Re quested Visits Authorized [id number] Closed 09/13/2020 10/13/2021 1 1 Encounter Details Date Type Department Care Team (Latest Contact Info) Description 09/14/2020 10:00 AM IRRIGATION SYSTEM OPERATOR - 09/14/2020 11:59 PM IRRIGATION SYSTEM OPERATOR Hospital Encounter [facility] [address] [facility] [address] [address] Srinivasa Gimenez MD [address] [address] Closed displaced fracture of second cervical vertebra with routine healing, unspecified fracture morphology, subsequent encounter Discharge Disposition: Discharge to home or self care Social History Tobacco Use Types Packs/Day Years Used Date Smoking Tobacco: Never Smokeless Tobacco: Never Alcohol Use Standard Drinks/Week Comments No 0 (1 standard drink = 0.6 oz pur e alcohol) Comments No Sex and Gender Information Value Date Recorded Sex Assigned at Not on file 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 Sex 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 SYSTEM 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 Gender Identity Not on file Sexual Orientation Not on file documented as of this encounter Medications at Time of Discharge cyanocobalamin (Vitamin B-12) 100 mcg tablet Take 1 tablet (100 mcg total) by mouth daily acyclovir (ZOVIRAX) 200 mg capsule Take 1 capsule (200 mg total) by mouth 2 (two) times a day 60 capsule 11 06/04/2020 1 aspirin 81 mg tabletIndications :prevention of [...] 1 tablet (100 mcg total) by mouth tutor coordinator before breakfast 30 tablet 11 08/27/2020 1 lisinopriL (PRINIVIL,ZESTRIL ) 10 mg tabletIndications :hypertension Take 1 tablet (10 mg total) by mouth tutor coordinator before breakfast 90 tablet 3 01/09/2020 1 [...] mouth daily 30 tablet 11 08/23/2020 2 sodium bicarbonate 650 mg tablet Take by mouth 06/24/2018 1 tacrolimus (PROGRAF) 0.5 mg capsuleIndication s:immunosuppressi on [...] VW Schedule Routine, Read Routine (OP Routine) 09/14/2020 10:43 AM IRRIGATION SYSTEM OPERATOR Closed displaced fracture of second cervical vertebra with routine healing, unspecified fracture morphology, subsequent encounter documented in this encounter Results * XR Spine Cervical Complete 4 or 5 Views (09/14/2020 10:43 AM IRRIGATION SYSTEM OPERATOR) Anatomical Region Laterality Modality Spine N/A Computed Radiogr aphy 09/14/2020 10:4 9 AM IRRIGATION SYSTEM OPERATOR Impressions 09/14/2020 10:49 AM IRRIGATION SYSTEM OPERATOR 1. Healing nondisplaced dens fracture. 2. Multilevel degenerative disc disease of the cervical spine. Electronically signed by: Candace Doe M.D. Narrative 09/14/2020 10:49 AM IRRIGATION SYSTEM OPERATOR EXAMINATION: XR SPINE CERVICAL COMPLETE 4 OR 5 VW HISTORY: C2 fracture FINDINGS: 6 radiographs of the cervical spine are compared to radiographs dated 06/19/2020. There is an unchanged nondisplaced dens fracture. There is normal motion with bending. 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 Multiple facet and uncovertebral joint arthropathy is unchanged. There is mild anterolisthesis of C4 on C5 and C6 on C7, which do not change with bending. There is mild anterolisthesis C3 on C4, seen only with flexion. No prevertebral soft tissue swelling. Procedure Note Candace Doe MD - 09/14/2020 EXAMINATION: XR SPINE CERVICAL COMPLETE 4 OR 5 VW HISTORY: C2 fracture FINDINGS: 6 radiographs of the cervical spine are compared to radiographs dated 06/19/2020. There is an unchanged nondisplaced dens fracture. There is normal motion with bending. 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 Multiple facet and uncovertebral joint arthropathy is unchanged. There is mild anterolisthesis of C4 on C5 and C6 on C7, which do not change with bending. There is mild anterolisthesis C3 on C4, seen only with flexion. No prevertebral soft tissue swelling. IMPRESSION: 1. Healing nondisplaced dens fracture. 2. Multilevel degenerative disc disease of the cervical spine. Electronically signed by: Candace Doe M.D. Srinivasa Gimenez MD IMG XR PROCEDURES Final Result documented in this encounter Visit Diagnoses Diagnosis Closed displaced fracture of second cervical vertebra with routine healing, unspecified fracture morphology, subsequent encounter documented in this encounter Care Teams Buzzle Buffer Relationship Specialty Start Date End Date Merlin Biggs MD [address] [place] [address] PCP - General Internal Medicine 02/20/20 11/02/22 Gregg Peace, DEREK Soft Crab Shedder Transplant 01/26/1907/04 Regina Contreras RN Soft Crab Shedder 12/07/19 Charly Biggs MD [address] [address] Consulting Physician Internal Medicine 03/28/20 documented as of this encounter
--- OUTSIDE RECORDS SUMMARY | 2024-06-27 01:53 | XMS_ITS | Encounter Summary ---
Author Organization [facility] Address [address] [place] [address] Care Team Providers Care Trader Name Role Phone Regina Contreras RN Unavailable [phone] Merlin Biggs MD Primary Care Provider [phone] Charly Biggs MD Unavailable [phone] Reason for Referral * Diagnostic Imaging (Routine) - Closed Specialty Diagnoses / Procedures Referred By Contac t Referred To Contact Diagnoses Cervical spondylosis with myelopathy Procedures XR Spine Cervical W Flexion And Extension 6 or More Views Srinivasa Gimenez MD Phone: tel: fax: [facility] Radiology [address] [place] [id number] Phone: tel: Referral ID Status Reason Start Date Expiration Date Visits Re quested Visits Authorized [id number] Closed 09/17/2021 10/17/2022 1 1 Reason for Visit * Diagnostic Imaging (Routine) - Closed Specialty Diagnoses / Procedures Referred By Contac t Referred To Contact Diagnoses Cervical spondylosis with myelopathy Procedures XR Spine Cervical W Flexion And Extension 6 or More Views Srinivasa Gimenez MD Phone: tel: fax: [facility] [address] [facility] [address] [place] [address] Phone: tel: Referral ID Status Reason Start Date Expiration Date Visits Re quested Visits Authorized [id number] Closed 09/17/2021 10/17/2022 1 1 Encounter Details Date Type Department Care Team (Latest Contact Info) Description 09/19/2021 11:25 AM CDT - 09/19/2021 11:59 PM CDT Hospital Encounter [id number] [address] [facility] [address] [place] [address] Srinivasa Gimenez MD [address] [address] Cervical spondylosis with myelopathy Discharge Disposition: Discharge to home or self care Social History Tobacco Use Types Packs/Day Years Used Date Smoking Tobacco: Never Smokeless Tobacco: Never Alcohol Use Standard Drinks/Week Comments No 0 (1 standard drink = 0.6 oz pur e alcohol) Comments No Sex and Gender Information Value Date Recorded Sex Assigned at Not on file 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 3 biotin 2,500 mcg capsule Take 1 capsule by mouth daily 4 cholecalciferol (VITAMIN D-3) 2,000 unit tablet Take 1 tablet (2,000 Units total) by mouth daily. 30 tablet 11 02/18/2018 2 hydrocortisone (Proctozone-HC) 2.5 % rectal cream 1 application to affected area 2 levothyroxine (SYNTHROID) 100 mcg tablet Take 1 tablet (100 mcg total) by mouth licensed investment sales assistant before breakfast 30 tablet 11 06/20/2021 3 lisinopriL (PRINIVIL,ZESTRIL ) 10 mg tablet TAKE [...] nightly 12/16/2016 4 predniSONE (DELTASONE) 5 mg tablet TAKE 1 TABLET(5 MG) BY MOUTH DAILY 30 tablet 11 09/02/2021 2 tacrolimus (PROGRAF) 1 mg immediate-release capsuleIndication s:Kidney replaced by transplant Take 1 capsule (1 mg total) by mouth 2 (two) times a day 60 capsule 11 06/04/2021 2 trimethoprim (TRIMPEX) 100 mg tablet Take 0.5 tablets (50 mg total) by mouth nightly 07/03/2021 4 documented as of this encounter Discharge Disposition Disposition Code Departure Means Destination Discharge to home or self care documented in this encounter Plan of Treatment Not on file documented as of this encounter Procedures Procedure Name Priority Date/Time Associated Diagnosis Comments XR SPINE CERVICAL W FLEXION AND EXTENSION 6 OR MORE VIEWS Schedule Routine, Read Routine (OP Routine) 09/19/2021 11:34 AM CDT Cervical spondylosis with myelopathy documented in this encounter Results * XR Spine Cervical W Flexion And Extension 6 or More Views (09/19/2021 11:34 AM CDT) Anatomical Region Laterality Modality Spine N/A Computed Radiogr aphy 09/19/2021 11:4 2 AM CDT Impressions 09/19/2021 11:42 AM CDT Poor visualization of the patient's C2 fracture. Multilevel cervical spine degenerative disc disease worst and severe C5-6. Electronically signed by: Areli Shaver 09/19/2021 11:42 AM CDT EXAMINATION: Cervical spine [...] documented in this encounter Visit Diagnoses Diagnosis Cervical spondylosis with myelopathy documented in this encounter Care Teams Trader Relationship Specialty Start Date End Date Merlin Biggs MD [address] [place] [address] PCP - General Internal Medicine 02/20/20 11/02/22 Regina Contreras, RN Family Nurse 12/07/19 Charly Biggs MD [address] [address] Consulting Physician Internal Medicine 03/28/20 documented as of this encounter
--- OUTSIDE RECORDS SUMMARY | 2024-06-27 01:53 | XMS_ITS | Encounter Summary ---
Author Organization [facility] Address [address] [place] [address] Care Team Providers Care Sprigger Name Role Phone Gregg Peace RN Unavailable [phone] Regina Contreras RN Unavailable [phone] Merlin Biggs MD Primary Care Provider [phone] Charly Biggs MD Unavailable [phone] Encounter Details Date Type Department Care Team (Late st Contact Info) Description 01/25/2021 Orders Only [facility] Health Information Management [address] [place] [address] Scanning, Provider Social History Tobacco Use Types Packs/Day Years Used Date Smoking Tobacco: Never Smokeless Tobacco: Never Alcohol Use Standard Drinks/Week Comments No 0 (1 standard drink = 0.6 oz pur e alcohol) Comments No Sex and Gender Information Value Date Recorded Sex Assigned at Not on file 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 Gender Identity Not on file Sexual Orientation Not on file documented as of this encounter Plan of Treatment Not on file documented as of this encounter Procedures Procedure Name Priority Date/Time Associated Diagnosis Comments SCAN - LABS 01/25/2021 8:47 AM CDT documented in this encounter Results * SCAN - LABS (01/25/2021 8:47 AM CDT) us Provider Scanning Final Result documented in this encounter Visit Diagnoses Not on filedocumented in this encounter Care Teams Sprigger Relationship Specialty Start Date End Date Merlin Biggs MD [address] [place] [address] PCP - General Internal Medicine 02/20/20 11/02/22 Gregg Peace, DEREK Upholsterer Outside Transplant 01/26/1907/04 Regina Contreras RN Upholsterer Outside 12/07/19 Charly Biggs MD [address] [address] Consulting Physician Internal Medicine 03/28/20 documented as of this encounter
--- OUTSIDE RECORDS SUMMARY | 2024-06-27 01:53 | XMS_ITS | Encounter Summary ---
Author Organization [facility] Address [address] [place] [address] Care Team Providers Care Pre Assembly Wirer Name Role Phone Regina Contreras RN Unavailable [phone] Merlin Biggs MD Primary Care Provider [phone] Charly Biggs MD Unavailable [phone] Encounter Details Date Type Department Care Team (Late st Contact Info) Description 04/28/2022 Orders Only [facility] Transplant Kidney [address] [address] [phone] [place] [address] Paola Guillory Kidney transplanted (Primary Dx); Hyperlipidemia, [...] on file 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 Gender Identity Not on file Sexual Orientation Not on file documented as of this encounter Plan of Treatment Not on file documented as of this encounter Visit Diagnoses Diagnosis Kidney transplanted- Primary Kidney replaced by transplant Hyperlipidemia, unspecified hyperlipidemia type Encounter for long-term (current) use of medications Encounter for long-term (current) use of other medications documented in this encounter Care Teams Pre Assembly Wirer Relationship Specialty Start Date End Date Merlin Biggs MD [address] [place] [address] PCP - General Internal Medicine 02/20/20 11/02/22 Regina Contreras, RN Human Resources Professional 12/07/19 Charly Biggs MD [address] [address] Consulting Physician Internal Medicine 03/28/20 documented as of this encounter
--- OUTSIDE RECORDS SUMMARY | 2024-06-27 01:53 | XMS_ITS | Encounter Summary ---
Author Organization [facility] Address [address] [place] [address] Phone Care Team Providers Care Schedule Manager Name Role Phone Gregg Peace RN Unavailable [phone] Regina Contreras RN Unavailable [phone] Merlin Biggs MD Primary Care Provider [phone] Charly Biggs MD Unavailable [phone] Reason for Referral * Diagnostic Imaging (Routine) - Closed Specialty Diagnoses / Procedures Referred By Contac t Referred To Contact Diagnoses Closed displaced fracture of second cervical vertebra with routine healing, unspecified fracture morphology, subsequent encounter Procedures XR Spine Cervical Complete 4 or 5 Views Srinivasa Gimenez MD Phone: tel: fax: [facility] [address] [place] [address] Referral ID Status Reason Start Date Expiration Date Visits Re quested Visits Authorized [id number] Closed 09/13/2020 10/13/2021 1 1 AL ARTIST Reason for Visit * Reason Comments New Patient Encounter Details Date Type Department Care Team (Late st Contact Info) Description 09/14/2020 10:40 AM VISUAL ARTIST Office Visit [facility] Orthopaedic Surgery [address] [facility] [address] [place] [address] Srinivasa Gimenez MD [address] [facility] [address] [place] [address] Closed displaced fracture of second cervical vertebra with routine healing, unspecified fracture morphology, subsequent encounter (Primary Dx) Social History Tobacco Use Types Packs/Day Years Used Date Smoking Tobacco: Never Smokeless Tobacco: Never Alcohol Use Standard Drinks/Week Comments No 0 (1 standard drink = 0.6 oz pur e alcohol) Comments No Sex and Gender Information Value Date Recorded Sex Assigned at Not on file Legal Sex 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 VISUAL ARTIST Gender Identity Not on file Sexual Orientation Not on file documented as of this encounter Last Filed Vital Signs Vital Sign Reading Time Taken Comments Blood Pressure - - Pulse - - Temperature - - Respiratory Rate - - Oxygen Saturation - - Inhaled Oxygen Concentration - - Weight 56.7 kg (125 lb) 09/14/2020 10:48 AM VISUAL ARTIST Height 157.5 cm (5' 2 ) 09/14/2020 10:48 AM VISUAL ARTIST Body Mass Index 22.86 09/14/2020 10:48 AM VISUAL ARTIST documented in this encounter Patient Instructions * Patient Instructions* Leah Mcgraw RN - 09/14/2020 10:40 AM VISUAL ARTIST Thank you for your visit today. Dr. Srinivasa Gimenez has recommended the following treatment: Follow up in 6 months for cervical myelopathy assessment. Appointment scheduled. Please let me know if you have any questions. Leah Mcgraw RN, ONC Clinical Nurse Coordinator to Dr. Srinivasa Gimenez Visit: [email or web address] [phone] [email or web address] AL ARTIST documented in this encounter Progress Notes * Srinivasa Gimenez MD - 09/14/2020 10:40 AM CST New Patient Visit Chief Complaint Follow-up for fracture History of Present Illness This is a very pleasant 85-year-old female who sustained an atypical hangman's fracture on 03/19/2020. She was treated non operatively. She was previously seen by Dr. Barahona and Marilu conrad, nurse practitioner. She presents today routine follow-up. She reports that she has very minimal neck pain.She has not been wearing a cervical collar recently. She does report that she has some minor balance issues. He does report that she has some difficultybuttoning buttons. 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 And has not been getting worse since then. She presents today with her . She takes Tylenol for pain. She has had physical therapy. Past Medical History, Past Surgical History, Initial Review of Medications, Drug Allergies, Social History, Family History, and Review of Systems Past Medical History: Diagnosis Date ??? Abdominal pain ??? Bruising ??? CAD (coronary artery disease) ??? CAD (coronary artery disease) 03/21/2020 ??? Fatigue ??? Frequent urination ??? GERD (gastroesophageal reflux disease) ??? Gout ??? Heart murmur ??? Hiatal hernia schatzki ring ??? HL (hearing loss) ??? Hyperlipidemia ??? Hypertension ??? Hypothyroidism ??? Migraines ??? Peritoneal dialysis status ([facility]) From 2009 to 2012 prior [...] CATHETERIZATION 10/2008 ??? CATARACT EXTRACTION Left 05/05/2018 ? ? CENTRAL LINE PLACEMENT > 5 [...] taking differently: Take 2,000 Units by mouth supervisor paste plant before breakfast. ) 30 tablet 11 ??? cyanocobalamin (Vitamin B-12) 100 mcg tablet Take 100 mcg by mouth daily ??? levothyroxine (SYNTHROID) 100 mcg tablet Take 1 tablet (100 mcg total) by mouth supervisor paste plant before breakfast 30 tablet 11 ??? lisinopriL (PRINIVIL,ZESTRIL) 10 mg tablet Take 1 tablet (10 mg total) by mouth supervisor paste plant before breakfast 90 tablet 3 ??? metoprolol [...] Social Determinants of Health Financial Resource Strain: ??? Difficulty of Paying Living Expenses: Food Insecurity: ??? Worried About Running Out of Food in the Last Year: ??? Ran Out of Food in the Last Year: Transportation Needs: ??? Lack of Transportation (Medical): ??? Lack of Transportation (Non-Medical): Physical Activity: ??? Days of Exercise per Week: ??? Minutes of Exercise per Session: Stress: ??? Feeling of Stress : Social Connections: ??? Frequency of Communication with Friends and Family: ??? Frequency of Social Gatherings with Friends and Family: ??? Attends [employer] Services: ??? Active Member of Clubs or Organizations: ??? Attends Club or Organization Meetings: ??? Marital Status: Intimate Partner Violence: ??? Fear of Current or Ex-Partner: ??? Emotionally Abused: ??? Physically Abused: ??? Sexually Abused: Family History Problem Relation Age of Onset ??? Cancer Other Family history of Cancer; ??? Kidney disease Other Family history of Renal disease; ??? Stroke Other Family history of Stroke; ??? Pancreatic cancer Mother ??? Heart disease Father Review of Systems Review of Systems Physical Examination WEIGHT/BMI: Estimated body mass index is 22.86 kg/m?? as calculated from the following: Height as of this encounter: 157.5 cm (5' 2 ). Weight as of this encounter: 56.7 kg (125 lb). Constitutional: Oriented to person, place, and [...] spine demonstrate no evidence of instability on flexion-extension. Her prior imaging was reviewed. She has [...] MRI from 03/20/2020 was reviewed. She has canal stenosis at C5-C6. Impression/Diagnosis Atypical hangman's fracture, treated non operatively with routine healing. 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 Treatment Plan I discussed with the patient my impression, the imaging findings, and treatment plan in detail witha focus on the etiology, natural history, and management of her symptoms. Regarding her fracture, she is doing well. There has been 6 months and she is relatively asymptomatic I think she can go on with her life regarding her C2 fracture. She does however have signs and symptoms of myelopathy. However this is mild. It is also stable. I do not think we should arevalo operate on it. She is older very medically complex. As such I think we should observe it. I will see the patient back in 6 months. Srinivasa Gimenez MD Manufacturing Supervisor of Orthopaedic Automotive PainterManufacturing Supervisor of Neurological Surgery [facility] [place] Assistant Terminal Manager done by [employer]; therefore, variances and inaccuracies may occur. I reviewed the patient problem list pertinent to the visit today, but the entire patient problem list was not reviewed today. AL ARTIST documented in this encounter Plan of Treatment Not on file documented as of this encounter Results * XR Spine Cervical Complete 4 or 5 Views (09/14/2020 10:43 AM VISUAL ARTIST) Anatomical Region Laterality Modality Spine N/A Computed Radiogr aphy 09/14/2020 10:4 9 AM VISUAL ARTIST Impressions 09/14/2020 10:49 AM VISUAL ARTIST 1. Healing nondisplaced dens fracture. 2. Multilevel degenerative disc disease of the cervical spine. Electronically signed by: Candace Doe M.D. Narrative 09/14/2020 10:49 AM VISUAL ARTIST EXAMINATION: XR SPINE CERVICAL COMPLETE 4 OR [...] with routine healing, unspecified fracture morphology, subsequent encounter- Primary Closed displaced fracture of second cervical vertebra with routine healing, unspecified fracture morphology, subsequent encounter documented in this encounter Care Teams Schedule Manager Relationship Specialty Start Date End Date Merlin Biggs MD [address] [place] [address] PCP - General Internal Medicine 02/20/20 11/02/22 Gregg Peace, RN Floor Press Operator Transplant 01/26/1907/04 Regina Contreras RN Floor Press Operator 12/07/19 Charly Biggs MD [address] [address] Consulting Physician Internal Medicine 03/28/20 documented as of this encounter
--- OUTSIDE RECORDS SUMMARY | 2024-06-27 01:53 | XMS_ITS | Encounter Summary ---
Author Organization [facility] Healthcare Address [address] [place] [address] Care Team Providers Care Chip Crusher Operator Name Role Phone Regina Contreras RN Unavailable Merlin Biggs MD Primary Care Provider [phone] Charly Biggs MD Unavailable [phone] Encounter Details Date Type Department Care Team (Late st Contact Info) Description 04/28/2022 Orders Only [facility] Health Information Management [address] [place] [address] Scanning, Provider Social History Tobacco Use Types Packs/Day Years Used Date Smoking Tobacco: Never Smokeless Tobacco: Never Alcohol Use Standard Drinks/Week Comments No 0 (1 standard drink = 0.6 oz pur e alcohol) Comments No Sex and Gender Information Value Date Recorded Sex Assigned at Not on file 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 Gender Identity Not on file Sexual Orientation Not on file documented as of this encounter Plan of Treatment Not on file documented as of this encounter Procedures Procedure Name Priority Date/Time Associated Diagnosis Comments SCAN - LABS 04/28/2022 11:23 AM CDT documented in this encounter Results * SCAN - LABS (04/28/2022 11:23 AM CDT) us Provider Scanning Final Result documented in this encounter Visit Diagnoses Not on filedocumented in this encounter Care Teams Chip Crusher Operator Relationship Specialty Start Date End Date Merlin Biggs MD [address] [place] [address] PCP - General Internal Medicine 02/20/20 11/02/22 Regina Contreras, RN Hot Box Operator 12/07/19 Charly Biggs MD [address] [address] Consulting Physician Internal Medicine 03/28/20 documented as of this encounter
--- OUTSIDE RECORDS SUMMARY | 2024-06-27 01:53 | XMS_ITS | Encounter Summary ---
Author Organization [facility] Healthcare Address [address] [place] [address] Care Team Providers Care Licensed Optician Name Role Phone Regina Contreras RN Unavailable Merlin Biggs MD Primary Care Provider [phone] Charly Biggs MD Unavailable [phone] Encounter Details Date Type Department Care Team (Late st Contact Info) Description 11/05/2021 Orders Only [facility] Health Information Management [address] [place] [address] Scanning, Provider Social History Tobacco Use Types Packs/Day Years Used Date Smoking Tobacco: Never Smokeless Tobacco: Never Alcohol Use Standard Drinks/Week Comments No 0 (1 standard drink = 0.6 oz pur e alcohol) Comments No Sex and Gender Information Value Date Recorded Sex Assigned at Not on file 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 Gender Identity Not on file Sexual Orientation Not on file documented as of this encounter Plan of Treatment Not on file documented as of this encounter Procedures Procedure Name Priority Date/Time Associated Diagnosis Comments SCAN - LABS 11/05/2021 10:09 PM CDT documented in this encounter Results * SCAN - LABS (11/05/2021 10:09 PM CDT) us Provider Scanning Final Result documented in this encounter Visit Diagnoses Not on filedocumented in this encounter Care Teams Licensed Optician Relationship Specialty Start Date End Date Merlin Biggs MD [address] [place] [address] PCP - General Internal Medicine 02/20/20 11/02/22 Regina Contreras, RN Line Tender Flakeboard 12/07/19 Charly Biggs MD [address] [address] Consulting Physician Internal Medicine 03/28/20 documented as of this encounter
--- OUTSIDE RECORDS SUMMARY | 2024-06-27 01:53 | XMS_ITS | Encounter Summary ---
Author Organization [facility] Healthcare Address [address] [place] [address] Care Team Providers Care Warp Scouring Vat Tender Name Role Phone Regina Contreras RN Unavailable Merlin Biggs MD Primary Care Provider [phone] Charly Biggs MD Unavailable Encounter Details Date Type Department Care Team (Late st Contact Info) Description 01/30/2022 Orders Only [facility] Health Information Management [address] [place] [address] Scanning, Provider Social History Tobacco Use Types Packs/Day Years Used Date Smoking Tobacco: Never Smokeless Tobacco: Never Alcohol Use Standard Drinks/Week Comments No 0 (1 standard drink = 0.6 oz pur e alcohol) Comments No Sex and Gender Information Value Date Recorded Sex Assigned at Not on file 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 Gender Identity Not on file Sexual Orientation Not on file documented as of this encounter Plan of Treatment Not on file documented as of this encounter Procedures Procedure Name Priority Date/Time Associated Diagnosis Comments SCAN - LABS 01/30/2022 4:13 PM CDT documented in this encounter Results * SCAN - LABS (01/30/2022 4:13 PM CDT) us Provider Scanning Final Result documented in this encounter Visit Diagnoses Not on filedocumented in this encounter Care Teams Warp Scouring Vat Tender Relationship Specialty Start Date End Date Merlin Biggs MD [address] [place] [address] PCP - General Internal Medicine 02/20/20 11/02/22 Regina Contreras, RN Discharge Rn 12/07/19 Charly Biggs MD [address] [address] Consulting Physician Internal Medicine 03/28/20 documented as of this encounter
--- OUTSIDE RECORDS SUMMARY | 2024-06-27 01:53 | XMS_ITS | Encounter Summary ---
Author Organization [facility] Healthcare Address [address] [place] [address] Care Team Providers Care Airline Dispatcher Name Role Phone Gregg Peace RN Unavailable [phone] Regina Contreras RN Unavailable [phone] Merlin Biggs MD Primary Care Provider [phone] Charly Biggs MD Unavailable [phone] Encounter Details Date Type Department Care Team (Late st Contact Info) Description 12/26/2020 Orders Only [facility] Radiology [address] [place] [address] Darlin Saucedo, DEREK ESRD (end stage renal disease) (CMS/HCC) (Primary Dx) Social History Tobacco Use Types Packs/Day Years Used Date Smoking Tobacco: Never Smokeless Tobacco: Never Alcohol Use Standard Drinks/Week Comments No 0 (1 standard drink = 0.6 oz pur e alcohol) Comments No Sex and Gender Information Value Date Recorded Sex Assigned at Not on file 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 Gender Identity Not on file Sexual Orientation Not on file documented as of this encounter Plan of Treatment Not on file documented as of this encounter Results * Protime-INR (01/01/2021 9:37 AM CDT) PT 12.4 9.5 - 13.6 sec [facility] INR 1.1 0.9 - 1.2 [facility] Comment: Interpretive data Oral anticoagulant therapeutic ranges: Venous thromboembolism prophylaxis or treatment: 2.0-3.0 CARDIOLOGY Standard range: 2.0-3.0 High-intensity range: 2.5-3.5 Refer to indication-specific guidelines for appropriate target ranges for prosthetic heart valve replacement. Current interpretive data was last revised on 2019. Blood specimen (specimen) 01/01/2021 9:37 AM CDT 01/01/2021 10:06 AM CDT Stewart Patino MD LAB BLOOD ORDERABLES Final Result [facility] Department [place] [address] * (ABNORMAL) CBC with auto differential (01/01/2021 9:37 AM CDT) WBC 5.8 3.8 - 9.9 K/cumm [facility] Hgb 13.3 11.9 - 15.5 g/dL [facility] Hct 40.0 35.6 - 45.5 % [facility] Plt 137(L) 150 - 400 K/cumm [facility] MPV 10.6 9.1 - 12.3 fL [facility] RBC 4.00 3.90 - 5.20 M/cumm [facility] MCV 100.0(H) 81.3 - 96.4 fL [facility] MCH 33.3 27.1 - 33.3 pg [facility] MCHC 33.3 32.3 - 35.7 g/dL [facility] RDW CV 12.4 11.1 - 14.9 % [facility] RDW SD 45.1 35.7 - 48.1 fL [facility] NRBC abs 0.00 0.00 - 0.01 K/cumm [facility] Blood specimen (specimen) 01/01/2021 9:37 AM CDT 01/01/2021 10:04 AM CDT Stewart Patino MD LAB BLOOD ORDERABLES Final Result [facility] Department [place] [address] * Basic metabolic panel (01/01/2021 9:37 AM CDT) Sodium 143 135 - 145 mmol/L [facility] Potassium, pl 4.0 3.3 - 4.9 mmol/L [facility] Chloride 108 97 - 110 mmol/L [facility] CO2 25 22 - 32 mmol/L [facility] Anion gap 10 2 - 15 mmol/L [facility] BUN 24 8 - 25 mg/dL [facility] Creatinine 0.83 0.60 - 1.10 mg/dL [facility] Glucose 87 70 - 199 mg/dL [facility] Comment: Interpretive Data Fasting glucose >/= 126 [...] 2017. Calcium 10.2 8.5 - 10.3 mg/dL [facility] Blood specimen (specimen) 01/01/2021 9:37 AM CDT 01/01/2021 10:04 AM CDT Stewart Patino MD LAB BLOOD ORDERABLES Final Result Performing Organization Address City/[facility]/ZIP Co de Phone Number [facility] Department [place] [employer] [place] [address] documented in this encounter Visit Diagnoses Diagnosis ESRD (end stage renal disease) (CMS/HCC) (HCC)- Primary End stage renal disease documented in this encounter Care Teams Airline Dispatcher Relationship Specialty Start Date End Date Merlin Biggs MD [address] [place] [address] PCP - General Internal Medicine 02/20/20 11/02/22 Gregg Peace, DEREK Workforce Services Representative Transplant 01/26/1907/04 Regina Contreras RN Workforce Services Representative 12/07/19 Charly Biggs MD [address] [address] Consulting Physician Internal Medicine 03/28/20 documented as of this encounter
--- OUTSIDE RECORDS SUMMARY | 2024-06-27 01:53 | XMS_ITS | Encounter Summary ---
Author Organization [facility] Healthcare Address [address] [place] [address] Care Team Providers Care Educational Psychology Professor Name Role Phone Regina Contreras RN Unavailable [phone] Merlin Biggs MD Primary Care Provider [phone] Charly Biggs MD Unavailable [phone] Encounter Details Date Type Department Care Team (Late st Contact Info) Description 02/10/2022 Telephone [facility] Transplant Kidney [address] [address] Mailstop [phone] [place] [address] Liss Huynh Social History Tobacco Use Types Packs/Day Years Used Date Smoking Tobacco: Never Smokeless Tobacco: Never Alcohol Use Standard Drinks/Week Comments No 0 (1 standard drink = 0.6 oz pur e alcohol) Comments No Sex and Gender Information Value Date Recorded Sex Assigned at Not on file 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 Called and said that she has tested positive for covid as of today, she has been sick since yesterday, please call her back. She is getting antibody injection tomorrow. Elida Contreras RN: Called back to discuss. States she will have the infusion tomorrow. Advised her to take tylenol andMucinex if she needs them. Pt will stay hydrated. documented in this encounter Plan of Treatment Not on file documented as of this encounter Visit Diagnoses Not on filedocumented in this encounter Care Teams Educational Psychology Professor Relationship Specialty Start Date End Date Merlin Biggs MD [address] [place] [address] PCP - General Internal Medicine 02/20/20 11/02/22 Regina Contreras, RN Entry Level Software Engineer 12/07/19 Charly Biggs MD [address] [address] Consulting Physician Internal Medicine 03/28/20 documented as of this encounter
--- OUTSIDE RECORDS SUMMARY | 2024-06-27 01:53 | XMS_ITS | Encounter Summary ---
Author Organization [facility] Healthcare Address [address] [place] [address] Care Team Providers Care Finger Buff Sewer Name Role Phone Regina Contreras RN Unavailable [phone] Merlin Biggs MD Primary Care Provider [phone] Charly Biggs MD Unavailable [phone] Encounter Details Date Type Department Care Team (Late st Contact Info) Description 04/28/2022 Telephone 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 S/O will before she comes in next month, please send new orders, fax [phone]. documented in this encounter Plan of Treatment Not on file documented as of this encounter Visit Diagnoses Not on filedocumented in this encounter Care Teams Finger Buff Sewer Relationship Specialty Start Date End Date Merlin Biggs MD [address] [place] [address] PCP - General Internal Medicine 02/20/20 11/02/22 Regina Contreras, RN Paving Bed Maker 12/07/19 Charly Biggs MD [address] [address] Consulting Physician Internal Medicine 03/28/20 documented as of this encounter
--- OUTSIDE RECORDS SUMMARY | 2024-06-27 01:53 | XMS_ITS | Encounter Summary ---
Author Organization [facility] Healthcare Address [address] [place] [address] Care Team Providers Care Brass Roller Name Role Phone Gregg Peace RN Unavailable [phone] Regina Contreras RN Unavailable [phone] Merlin Biggs MD Primary Care Provider [phone] Charly Biggs MD Unavailable [phone] Encounter Details Date Type Department Care Team (Late st Contact Info) Description 06/07/2021 Telephone [facility] Transplant Kidney [address] [address] Mailstop [phone] [place] [address] Regina Contreras, DEREK Social History Tobacco Use Types Packs/Day Years Used Date Smoking Tobacco: Never Smokeless Tobacco: Never Alcohol Use Standard Drinks/Week Comments No 0 (1 standard drink = 0.6 oz pur e alcohol) Comments No Sex and Gender Information Value Date Recorded Sex Assigned at Not on file Legal Sex 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 MINISTER HELPER Gender Identity Not on file Sexual Orientation Not on file documented as of this encounter Miscellaneous Notes * Telephone Encounter - Liss Huynh - 06/07/2021 5:42 PM CST Refaxed Standing orders to [facility]. STER HELPER * Telephone Encounter - Regina Contreras RN - 06/07/2021 11:17 AM MINISTER HELPER Pt seen in clinic and states she needs new S/Os, please update, thank you! STER HELPER documented in this encounter Plan of Treatment Not on file documented as of this encounter Visit Diagnoses Not on filedocumented in this encounter Care Teams Brass Roller Relationship Specialty Start Date End Date Merlin Biggs MD [address] [place] [address] PCP - General Internal Medicine 02/20/20 11/02/22 Gregg Peace RN Consumer Sales Representative Transplant 01/26/1907/04 Regina Contreras RN Consumer Sales Representative 12/07/19 Charly Biggs MD [address] [address] Consulting Physician Internal Medicine 03/28/20 documented as of this encounter
--- OUTSIDE RECORDS SUMMARY | 2024-06-27 01:53 | XMS_ITS | Encounter Summary ---
Author Organization [facility] Address [address] [place] [address] Care Team Providers Care Abstract Checker Name Role Phone Gregg Peace RN Unavailable [phone] Regina Contreras RN Unavailable [phone] Merlin Biggs MD Primary Care Provider [phone] Charly Biggs MD Unavailable [phone] Encounter Details Date Type Department Care Team (Late st Contact Info) Description 05/06/2021 Orders Only [facility] Health Information Management [address] [place] [address] Scanning, Provider Social History Tobacco Use Types Packs/Day Years Used Date Smoking Tobacco: Never Smokeless Tobacco: Never Alcohol Use Standard Drinks/Week Comments No 0 (1 standard drink = 0.6 oz pur e alcohol) Comments No Sex and Gender Information Value Date Recorded Sex Assigned at Not on file Legal Sex 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 DIRECTOR CHILD 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 CENTER Gender Identity Not on file Sexual Orientation Not on file documented as of this encounter Plan of Treatment Not on file documented as of this encounter Procedures Procedure Name Priority Date/Time Associated Diagnosis Comments SCAN - LABS 05/06/2021 2:05 PM CDT documented in this encounter Results * SCAN - LABS (05/06/2021 2:05 PM CDT) us Provider Scanning Final Result documented in this encounter Visit Diagnoses Not on filedocumented in this encounter Care Teams Abstract Checker Relationship Specialty Start Date End Date Merlin Biggs MD [address] [place] [address] PCP - General Internal Medicine 02/20/20 11/02/22 Gregg Peace, DEREK Pipe Finishing Supervisor Transplant 01/26/1907/04 Regina Contreras RN Pipe Finishing Supervisor 12/07/19 Charly Biggs MD [address] [address] Consulting Physician Internal Medicine 03/28/20 documented as of this encounter
--- OUTSIDE RECORDS SUMMARY | 2024-06-27 01:53 | XMS_ITS | Encounter Summary ---
Author Organization [facility] Healthcare Address [address] [place] [address] Care Team Providers Care Cigar Head Holer Name Role Phone Regina Contreras RN Unavailable Merlin Biggs MD Primary Care Provider [phone] Charly Biggs MD Unavailable [phone] Encounter Details Date Type Department Care Team (Late st Contact Info) Description 02/10/2022 Orders Only [facility] Health Information Management [address] [place] [address] Scanning, Provider Social History Tobacco Use Types Packs/Day Years Used Date Smoking Tobacco: Never Smokeless Tobacco: Never Alcohol Use Standard Drinks/Week Comments No 0 (1 standard drink = 0.6 oz pur e alcohol) Comments No Sex and Gender Information Value Date Recorded Sex Assigned at Not on file Legal Sex 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 Gender Identity Not on file Sexual Orientation Not on file documented as of this encounter Plan of Treatment Not on file documented as of this encounter Procedures Procedure Name Priority Date/Time Associated Diagnosis Comments SCAN - LABS 02/10/2022 1:34 PM CDT documented in this encounter Results * SCAN - LABS (02/10/2022 1:34 PM CDT) us Provider Scanning Final Result documented in this encounter Visit Diagnoses Not on filedocumented in this encounter Care Teams Cigar Head Holer Relationship Specialty Start Date End Date Merlin Biggs MD [address] [place] [address] PCP - General Internal Medicine 02/20/20 11/02/22 Regina Contreras, RN Gis Instructor 12/07/19 Charly Biggs MD [address] [address] Consulting Physician Internal Medicine 03/28/20 documented as of this encounter
--- OUTSIDE RECORDS SUMMARY | 2024-06-27 01:53 | XMS_ITS | Encounter Summary ---
Author Organization [facility] Healthcare Address [address] [place] [address] Care Team Providers Care Vending Machine Assembler Name Role Phone Regina Contreras RN Unavailable [phone] Merlin Biggs MD Primary Care Provider [phone] Charly Biggs MD Unavailable [phone] Encounter Details Date Type Department Care Team (Late st Contact Info) Description 11/06/2021 Telephone [facility] Transplant Kidney [address] [address] Mailstop [phone] [place] [address] Regina Contreras, DEREK Social History Tobacco Use Types Packs/Day Years Used Date Smoking Tobacco: Never Smokeless Tobacco: Never Alcohol Use Standard Drinks/Week Comments No 0 (1 standard drink = 0.6 oz pur e alcohol) Comments No Sex and Gender Information Value Date Recorded Sex Assigned at Not on file Legal Sex 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 INVERTER AND CLIPPER Gender Identity Not on file Sexual Orientation Not on file documented as of this encounter Miscellaneous Notes * Telephone Encounter - Regina Contreras RN - 11/06/2021 9:44 AM CDT Noted Scr increased to 1.1 from baseline of 0.8, will call pt to discuss. States she has been dealing with a bladder infection about 1 week before she had her labs drawn. Will ask her to repeat labs in 1 week. Sent order. Pt verbalized understanding. documented in this encounter Plan of Treatment Not on file documented as of this encounter Procedures Procedure Name Priority Date/Time Associated Diagnosis Comments RENAL FUNCTION PANEL Routine 11/09/2021 Kidney replaced by transplant documented in this encounter Results * (ABNORMAL) Renal function panel (11/09/2021) SCRIBED Calcium 9.6 8.4 - 10.2 mg/dl EXTERNAL LAB SCRIBED Phosphorus 3.9 2.5 - 4.5 mg/dl EXTERNAL LAB SCRIBED Albumin 3.7 3.5 - 5.1 g/dl EXTERNAL LAB SCRIBED Glucose 120(A) 85 - 110 mg/dl EXTERNAL LAB SCRIBED Creatinine 0.80 0.7 - 1.0 mg/dl EXTERNAL LAB SCRIBED Sodium 139 137 - 145 mmol/L EXTERNAL LAB SCRIBED Potassium 4.4 3.4 - 5.0 mmol/L EXTERNAL LAB SCRIBED Chloride 107 98 - 107 mmol/L EXTERNAL LAB SCRIBED Carbon Dioxide 27 22 - 30 mmol/L EXTERNAL LAB SCRIBED eGFR in NonAfrican [place] Citizen >60 >60 EXTERNAL LAB SCRIBED Urea Nitrogen (BUN) 28(A) 7 - 17 mg/dl EXTERNAL LAB Blood specimen (specimen) 11/09/2021 us Layla Mares MD LAB BLOOD ORDERAB LES Final Result EXTERNAL LAB documented in this encounter Visit Diagnoses Diagnosis Kidney replaced by transplant- Primary documented in this encounter Care Teams Vending Machine Assembler Relationship Specialty Start Date End Date Merlin Biggs MD [address] [place] [address] PCP - General Internal Medicine 02/20/20 11/02/22 Regina Contreras RN Technical Planner 12/07/19 Charly Biggs MD [address] [address] Consulting Physician Internal Medicine 03/28/20 documented as of this encounter
--- OUTSIDE RECORDS SUMMARY | 2024-06-27 01:53 | XMS_ITS | Encounter Summary ---
Author Organization [facility] Address [address] [place] [address] Phone Care Team Providers Care Educational Interpreter Name Role Phone Gregg Peace RN Unavailable [phone] Regina Contreras RN Unavailable [phone] Merlin Biggs MD Primary Care Provider [phone] Charly Biggs MD Unavailable [phone] Reason for Referral * Diagnostic Imaging (Routine) - Closed Specialty Diagnoses / Procedures Referred By Contac t Referred To Contact Diagnoses Closed traumatic minimally displaced fracture of second cervical vertebra, initial encounter ([facility]) Procedures XR Spine Cervical Complete 4 or 5 Views Srinivasa Gimenez MD Phone: tel: fax: [facility] [address] [facility] [address] [place] [phone] Phone: tel: Referral ID Status Reason Start Date Expiration Date Visits Re quested Visits Authorized [id number] Closed 01/25/2021 02/24/2022 1 1 Reason for Visit * Reason Comments Fracture Follow-up Encounter Details Date Type Department Care Team (Late st Contact Info) Description 03/14/2021 10:20 AM CDT Office Visit [facility] Orthopaedic Surgery [address] [address] [place] [phone] Srinivasa Gimenez MD [address] [address] Closed traumatic minimally displaced fracture of second cervical vertebra, initial encounter ([facility]) (Primary Dx); Fusion of spine of cervical region; Closed displaced fracture of second cervical vertebra with routine healing, unspecified fracture morphology, subsequent encounter Social History Tobacco Use Types Packs/Day Years Used Date Smoking Tobacco: Never Smokeless Tobacco: Never Alcohol Use Standard Drinks/Week Comments No 0 (1 standard drink = 0.6 oz pur e alcohol) Comments No Sex and Gender Information Value Date Recorded Sex Assigned at Not on file Legal Sex 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 She presents today for clinical check in. She does report that she has some minor balance issues. He does report that she has some difficultybuttoning buttons. 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 And has not been getting worse since then. She reports she has no changes since her last visit. She presents today with her . Past Medical History, Past Surgical History, Initial [...] Hypothyroidism ??? Migraines ??? Peritoneal dialysis status (CMS/HCC) (HCC) From 2009 to 2012 prior to [...] ??? PARATHYROIDECTOMY 1994 ??? RHINOPLASTY ??? TONSILLECTOMY 194 ??? VEIN LIGATION AND STRIPPING 1992 Current [...] taking differently: Take 2,000 Units by mouth show host/hostess before breakfast. ) 30 tablet 11 ??? cyanocobalamin (Vitamin B-12) 100 mcg tablet Take 100 mcg by mouth daily ??? levothyroxine (SYNTHROID) 100 mcg tablet Take 1 tablet (100 mcg total) by mouth show host/hostess before breakfast 30 tablet 11 ??? lisinopriL (PRINIVIL,ZESTRIL) 10 mg tablet Take 1 tablet (10 mg total) by mouth show host/hostess before breakfast 90 tablet 3 ??? metoprolol [...] Strain: ??? Difficulty of Paying Living Expenses: Not on file Food Insecurity: ??? Worried About Running Out of Food in the Last Year: Not on file ??? Ran Out of Food in the Last Year: Not on file Transportation Needs: ??? Lack of Transportation (Medical): Not on file ??? Lack of Transportation (Non-Medical): Not on file Physical Activity: ??? Days of Exercise per Week: Not on file ??? Minutes of Exercise per Session: Not on file Stress: ??? Feeling of Stress : Not on file Social Connections: ??? Frequency of Communication with Friends and Family: Not on file ??? Frequency of Social Gatherings with Friends and Family: Not on file ??? Attends Yazdanism Services: Not on file ??? Active Member of Clubs or Organizations: Not on file ??? Attends Club or Organization Meetings: Not on file ??? Marital Status: Not on file Intimate Partner Violence: ??? Fear of Current or Ex-Partner: Not on file ??? Emotionally Abused: Not on file ??? Physically Abused: Not on file ??? Sexually Abused: Not on file Family History Problem Relation Age of Onset ??? Cancer Other Family history of Cancer; ??? Kidney disease Other Family history of Renal disease; ??? Stroke Other Family history of Stroke; ??? Pancreatic cancer Mother ??? Heart disease Father Review of Systems Review of Systems Physical Examination WEIGHT/BMI: Estimated body mass index is 24.14 kg/m?? as calculated from the following: Height as of 01/01/21: 157.5 cm (5' 2 ). Weight as of 01/01/21: 59.9 kg (132 lb). Constitutional: Oriented to person, place, and [...] fracture, treated non operatively with routine healing now 1 year out. 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 Treatment Plan I discussed with the patient my impression, the imaging findings, and treatment plan in detail witha focus on the etiology, natural history, and management of her symptoms. Regarding her fracture she is doing well. She does however have signs and symptoms of myelopathy. However this is mild. It is also stable andshe has not progressed past 6 months. I do not think we should arevalo operate on it. She is older andvery medically complex. As such I think we should observe it. I will see the patient back in 6 months. She and her were counseled that should she develop worsening symptoms of myelopathy she should come back and see me. Srinivasa Gimenez MD Rn Cardiovascular Icu of Orthopaedic Proposal EngineerRn Cardiovascular Icu of Neurological Surgery [facility] in [place], [place] Cutting Machine Tender Decorative done by [employer]; therefore, variances and [...] mass of C1 on C2. Procedure Note aPrvez Connor MD PhD - 03/14/2021 EXAMINATION: Cervical [...] fracture of second cervical vertebra, initial encounter (HCC)- Primary Fusion of spine of cervical region Closed displaced fracture of second cervical vertebra with routine healing, unspecified fracture morphology, subsequent encounter Closed traumatic minimally displaced fracture of second cervical vertebra, initial encounter ([facility]) documented in this encounter Historical Medications * This list may reflect changes made after this encounter. trimethoprim (TRIMPEX) 100 mg tablet TAKE 1/2 TABLET BY MOUTH AT BEDTIME 01/02/2021 06/06/2021 metroNIDAZOLE (METROCREAM) 0.75 % cream 03/07/2021 06/06/2021 calcium carbonate-vitamin D3 (Calcium 600 + D,3,) 1500 mg (600 mg elemental) -200 units per tablet CALCIUM 600+D TABLET 08/19/2018 06/06/2021 amLODIPine (NORVASC) 10 mg tablet daily 06/06/2021 vitamin B complex with vitamin C tablet VITAMIN C TABLET 08/19/2018 06/06/2021 added in this encounter Care Teams Educational Interpreter Relationship Specialty Start Date End Date Merlin Biggs MD [address] [place] [address] PCP - General Internal Medicine 02/20/20 11/02/22 Gregg Peace RN Wheel Borer Transplant 01/26/1907/04 Regina Contreras RN Wheel Borer 12/07/19 Charly Biggs MD [address] [address] Consulting Physician Internal Medicine 03/28/20 documented as of this encounter
--- OUTSIDE RECORDS SUMMARY | 2024-06-27 01:53 | XMS_ITS | Encounter Summary ---
Author Organization [facility] Address [address] [place] [address] Phone Care Team Providers Care Obstetric Anaesthetist Name Role Phone Gregg Peace RN Unavailable [phone] Regina Contreras RN Unavailable [phone] Merlin Biggs MD Primary Care Provider [phone] Charly Biggs MD Unavailable [phone] Encounter Details Date Type Department Care Team (Late st Contact Info) Description 12/26/2020 Telephone [facility] Advanced Medicine 8th [place] [address] [place] [address] Adriane Genao Ashlee Social History Tobacco Use Types Packs/Day Years Used Date Smoking Tobacco: Never Smokeless Tobacco: Never Alcohol Use Standard Drinks/Week Comments No 0 (1 standard drink = 0.6 oz pur e alcohol) Comments No Sex and Gender Information Value Date Recorded Sex Assigned at Not on file 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, Dr. Hunter Arrival 0930, [facility], admitting, npo, w/driver lifter of sanitation truck. Labs ordered day of procedure as labs are >3 months. Please reach out to patient with instructions. documented in this encounter Plan of Treatment Not on file documented as of this encounter Visit Diagnoses Not on filedocumented in this encounter Care Teams Obstetric Anaesthetist Relationship Specialty Start Date End Date Merlin Biggs MD [address] [place] [address] PCP - General Internal Medicine 02/20/20 11/02/22 Gregg Peace RN Sprigger Transplant 01/26/1907/04 Regina Contreras RN Sprigger 12/07/19 Charly Biggs MD [address] [address] Consulting Physician Internal Medicine 03/28/20 documented as of this encounter
--- OUTSIDE RECORDS SUMMARY | 2024-06-27 01:53 | XMS_ITS | Encounter Summary ---
Author Organization [facility] Address [address] [place] [address] Phone Care Team Providers Care Bottom Buffer Name Role Phone Gregg Peace RN Unavailable [phone] Regina Contreras RN Unavailable [phone] Merlin Biggs MD Primary Care Provider [phone] Charly Biggs MD Unavailable [phone] Encounter Details Date Type Department Care Team (Late st Contact Info) Description 12/20/2020 1:00 PM CDT Office Visit [facility] Surgery [address] [facility] Advanced Medicine 8th [place] [address] [place] [address] Arturo Khan MD PhD [address] [facility] [address] [place] [address] Status post kidney transplant (Primary Dx) Social History Tobacco Use Types Packs/Day Years Used Date Smoking Tobacco: Never Smokeless Tobacco: Never Alcohol Use Standard Drinks/Week Comments No 0 (1 standard drink = 0.6 oz pur e alcohol) Comments No Sex and Gender Information Value Date Recorded Sex Assigned at Not on file 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 Gender Identity Not on file Sexual Orientation Not on file documented as of this encounter Last Filed Vital Signs Vital Sign Reading Time Taken Comments Blood Pressure 156/79 12/20/2020 1:30 PM CDT Pulse 88 12/20/2020 1:30 PM CDT Temperature 35.7 ??C (96.3 ??F) 12/20/2020 1:30 PM CD T Respiratory Rate - - Oxygen Saturation - - Inhaled Oxygen Concentration - - Weight 61.7 kg (136 lb) 12/20/2020 1:30 PM CDT Height 157.5 cm (5' 2 ) 12/20/2020 1:30 PM CDT Body Mass Index 24.87 12/20/2020 1:30 PM CDT documented in this encounter Progress Notes * Alma Garrett PA - 12/20/2020 1:00 PM CDT PATIENT NAME: Juliet Dunlap : 1935 12/20/2020 Requesting Physician: Merlin Biggs MD CHIEF COMPLAINT: arm swelling s/p AVG, s/p kidney transplant HISTORY OF PRESENT ILLNESS: Ms. Dunlap is a 85 y.o. 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 She is s/p left upper arm AVG placement in 2007 which remains open; however, she reports left arm swelling for the past 3-4 weeks. She reports a similar prior episode of left arm swelling in July of 2019. She reports that she underwent a fistulagram at an outside facility at that time and her swelling resolved and did not recur until recently. She denies left hand pain, but does report some discomfort secondary to her swelling. PAST MEDICAL HISTORY: Past Medical History: Diagnosis Date ??? Abdominal pain ??? Bruising ??? CAD (coronary artery disease) ??? Drusen of optic disc, bilateral ??? Fatigue ??? Frequent urination ??? GERD (gastroesophageal reflux disease) ??? Gout ??? Heart murmur ??? Hiatal hernia schatzki ring ??? HL (hearing loss) ??? Hyperlipidemia ??? Hypertension ??? Hypothyroidism ??? Migraines ??? Peritoneal dialysis status ([facility]) From 2009 to 2012 prior to transplant ??? Postoperative delirium 02/2013 hallucinations s/p kidney transplant, saw flashes of color and puffs of smoke ??? Renal failure received 1 episode chemo to try to save Kidney in 2008 ??? Shingles 2008 PAST SURGICAL HISTORY: Past Surgical History: Procedure Laterality Date ??? [...] 1943 ??? VEIN LIGATION AND STRIPPING 1992 CURRENT MEDICATIONS: Current Outpatient Medications: ??? acyclovir (ZOVIRAX) 200 mg capsule, Take 1 capsule (200 mg total) by mouth 2 (two) times a day,Disp: 60 capsule, Rfl: 11 ??? aspirin 81 mg tablet, Take 81 mg by mouth every morning. , Disp: , Rfl: ??? benzocaine (ORAJEL) 10 % mucosal gel, Apply to the mouth or throat 3 (three) times a day as needed for mucositis, Disp: 5.3 g, Rfl: 0 ??? cyanocobalamin (Vitamin B-12) 100 mcg tablet, Take 100 mcg by mouth daily , Disp: , Rfl: ??? levothyroxine (SYNTHROID) 100 mcg tablet, Take 1 tablet (100 mcg total) by mouth wharfinger chief before breakfast, Disp: 30 tablet, Rfl: 11 ??? lisinopriL (PRINIVIL,ZESTRIL) 10 mg tablet, Take 1 tablet (10 mg total) by mouth wharfinger chief before breakfast, Disp: 90 tablet, Rfl: 3 ??? metoprolol tartrate (LOPRESSOR) 75 mg tablet immediate release tablet, Take 1 tablet (75 mg total) by mouth 2 (two) times a day, Disp: 180 tablet, Rfl: 3 ??? neomycin-polymyxin B-dexAMETHasone (Maxitrol) 3.5 mg/g-10,000 [...] mouth daily, Disp: 90 tablet,Rfl: 3 ??? cholecalciferol (VITAMIN D-3) 2,000 unit tablet, Take 1 tablet (2,000 Units total) by mouth daily. (Patient taking differently: Take 2,000 Units by mouth wharfinger chief before breakfast. ), Disp: 30 tablet, Rfl: 11 ??? tacrolimus (PROGRAF) 0.5 mg capsule, Take 1 capsule (0.5 mg total) by mouth every 12 (twelve) hours, Disp: 60 capsule, Rfl: 0 ALLERGIES: Allergies Allergen Reactions ??? Nitrofurantoin Rash ??? Tetracycline Rash ??? Tetracyclines Rash ??? Levofloxacin Unknown ? ? Codeine Dizziness, Nausea & Vomiting and Nausea Only ??? Keflex [Cephalexin] Other (See comments) Trouble with bladder SOCIAL HISTORY: Social History Tobacco Use Smoking Status Never Smoker Smokeless Tobacco Never Used , presents to clinic with her today FAMILY HISTORY: Family History Problem Relation Age of Onset ??? Cancer Other Family history of Cancer; ??? Kidney disease Other Family history of Renal disease; ??? Stroke Other Family history of Stroke; ??? Pancreatic cancer Mother ??? Heart disease Father REVIEW OF SYSTEMS: Reports left arm swelling All other systems were reviewed and are negative. PHYSICAL EXAM: Constitutional: -Vitals: Patient Vital Signs for the past 24 hrs: BP Temp Pulse Height Weight 12/20/20 1330 156/79 (!) 35.7 ??C (96.3 ??F) 88 157.5 cm (5' 2 ) 61.7 kg (136 lb) -General: awake, alert, oriented x3, in no acute distress Eyes: EOMI and Sclera nonicteric Neck: supple, trachea midline Respiratory: normal respiratory effort, chest symmetrical Heart: Heart regular rate and rhythm, No lower extremity edema bilaterally. Musculoskeletal: Strength and motor function grossly intact. Gait normal. -Left upper extremity: moderate pitting edema to left upper arm, forearm and hand. Radial pulse 2+ -Right upper extremity: no edema. Skin: there are no suspicious lesions, rashes or jaundice Neurologic: Cranial nerves 2-12 grossly intact. Sensation intact. ASSESSMENT: 85 y.o. female with a history of renal failure s/p kidney transplant in 2012 with normal graft function s/p left upper arm AVG in 2007 c/b venous HTN An ultrasound was personally performed in clinic which reveals left brachial artery flow of approx 760ml-1L. The right forearm has a diminutive cephalic vein, right upper arm with decent cephalic vein. Plan: We will refer her to interventional radiology for a fistulagram in the near future. We will obtain her OSH records from her prior fistulagram. I, Alma Garrett PA-C, [facility], have personally taken a history, examined the patient, and documented the assessment and plan as noted. The patient was [facility]. lAma Garrett PA-C, [facility] Patient Care Team: Merlin Biggs MD as PCP - General (Internal Medicine) Gregg Peace RN as Crop Pest Control Specialist (Transplant) Regina Contreras RN as Crop Pest Control Specialist Charly Biggs MD as Consulting Physician (Internal Medicine) Cosigned by Arturo Khan MD PhD at 12/24/2020 6:38 PM CDT documented in this encounter Plan of Treatment Not on file documented as of this encounter Visit Diagnoses Diagnosis Status post kidney transplant- Primary documented in this encounter Care Teams Bottom Buffer Relationship Specialty Start Date End Date Merlin Biggs MD [address] [place] [address] PCP - General Internal Medicine 02/20/20 11/02/22 Gregg Peace RN Crop Pest Control Specialist Transplant 01/26/1907/04 Regina Contreras RN Crop Pest Control Specialist 12/07/19 Charly Biggs MD [address] [address] Consulting Physician Internal Medicine 03/28/20 documented as of this encounter
--- OUTSIDE RECORDS SUMMARY | 2024-06-27 01:54 | XMS_ITS | Encounter Summary ---
Author Organization [facility] Address [address] [place] [address] Care Team Providers Care Television Program Director Name Role Phone Gregg Peace RN Unavailable [phone] Regina Contreras RN Unavailable [phone] Merlin Biggs MD Primary Care Provider [phone] Charly Biggs MD Unavailable [phone] Encounter Details Date Type Department Care Team (Late st Contact Info) Description 05/24/2020 Orders Only [facility] Transplant Kidney [address] [address] [phone] [place] [address] Paola Guillory Kidney transplanted (Primary Dx); Encounter [...] on file 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 Gender Identity Not on file Sexual Orientation Not on file documented as of this encounter Plan of Treatment Not on file documented as of this encounter Visit Diagnoses Diagnosis Kidney transplanted- Primary Kidney replaced by transplant Encounter for long-term (current) use of medications Encounter for long-term (current) use of other medications Hyperlipidemia, unspecified hyperlipidemia type documented in this encounter Care Teams Television Program Director Relationship Specialty Start Date End Date Merlin Biggs MD [address] [place] [address] PCP - General Internal Medicine 02/20/20 11/02/22 Gregg Peace, DEREK Safety Admin Assistant Transplant 01/26/1907/04 Regina Contreras RN Safety Admin Assistant 12/07/19 Charly Biggs MD [address] [address] Consulting Physician Internal Medicine 03/28/20 documented as of this encounter
--- OUTSIDE RECORDS SUMMARY | 2024-06-27 01:54 | XMS_ITS | Encounter Summary ---
Author Organization [facility] Address [address] [place] [address] Care Team Providers Care Raisin Washer Name Role Phone Gregg Peace RN Unavailable [phone] Regina Contreras RN Unavailable [phone] Merlin Biggs MD Primary Care Provider [phone] Charly Biggs MD Unavailable [phone] Encounter Details Date Type Department Care Team (Late st Contact Info) Description 05/22/2020 Telephone 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 Gender Identity Not on file Sexual Orientation Not on file documented as of this encounter Ordered Prescriptions Prescription Sig Dispense Quantity Refills Last Filled Start Date End Date metoprolol tartrate (LOPRESSOR) 75 mg tablet immediate release tablet Take 1 tablet (75 mg total) by mouth 2 (two) times a day 180 tablet 3 05/22/2020 09/06/2021 documented in this encounter Miscellaneous Notes * Telephone Encounter - Diane Renee - 05/22/2020 10:03 AM CST Date/Time Type Contact Phone/Fax 05/22/2020 10:03 AM Phone (Incoming) Juliet Dunlap (Self) [phone] (H) Left message on afterhours line, Thursday 8:02pm- the message was very broken up, could not hear nature of call Elida Contreras RN: Called pt back to discuss, states that she was calling to verify her apt on at 9:45am. Said no one had called her about this. Let her know this was still scheduled. States she will be there. CARE COORDINATOR CARE COORDINATOR documented in this encounter Plan of Treatment Not on file documented as of this encounter Visit Diagnoses Not on filedocumented in this encounter Discontinued Medications Medication Sig Discontinue Reason Start Date End Da te metoprolol tartrate (LOPRESSOR) 75 mg tablet immediate release tablet Take 1 tablet (75 mg total) by mouth 2 (two) times a day Reorder 05/18/2020 05/22/2020 documented as of this encounter Care Teams Raisin Washer Relationship Specialty Start Date End Date Merlin Biggs MD [address] [place] [address] PCP - General Internal Medicine 02/20/20 11/02/22 Gregg Peace RN Cooker Sulfite Transplant 01/26/1907/04 Regina Contreras, DEREK Cooker Sulfite 12/07/19 Charly Biggs MD [address] [address] Consulting Physician Internal Medicine 03/28/20 documented as of this encounter
--- OUTSIDE RECORDS SUMMARY | 2024-06-27 01:54 | XMS_ITS | Encounter Summary ---
Author Organization [facility] Address [address] [place] [address] Care Team Providers Care Reinforcing Steel Worker Name Role Phone Gregg Peace RN Unavailable [phone] Regina Contreras RN Unavailable [phone] Merlin Biggs MD Primary Care Provider [phone] Charly Biggs MD Unavailable [phone] Encounter Details Date Type Department Care Team (Late st Contact Info) Description 09/13/2020 Telephone [facility] Transplant Kidney [address] [address] Mailstop [phone] [place] [address] Paola Guillory Social History Tobacco Use Types Packs/Day Years Used Date Smoking Tobacco: Never Smokeless Tobacco: Never Alcohol Use Standard Drinks/Week Comments No 0 (1 standard drink = 0.6 oz pur e alcohol) Comments No Sex and Gender Information Value Date Recorded Sex Assigned at Not on file 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 Elida Contreras RN: Updated immunization record. L SUPPLIES SALESPERSON L SUPPLIES SALESPERSON documented in this encounter Plan of Treatment Not on file documented as of this encounter Visit Diagnoses Not on filedocumented in this encounter Care Teams Reinforcing Steel Worker Relationship Specialty Start Date End Date Merlin Biggs MD [address] [place] [address] PCP - General Internal Medicine 02/20/20 11/02/22 Gregg Peace RN Automobile Leasing Supervisor Transplant 01/26/1907/04 Regina Contreras RN Automobile Leasing Supervisor 12/07/19 Charly Biggs MD [address] [address] Consulting Physician Internal Medicine 03/28/20 documented as of this encounter
--- OUTSIDE RECORDS SUMMARY | 2024-06-27 01:54 | XMS_ITS | Encounter Summary ---
Author Organization [facility] Address [address] [place] [address] Phone Care Team Providers Care Senior Business Development Manager Name Role Phone Gregg Peace RN Unavailable [phone] Regina Contreras RN Unavailable [phone] Merlin Biggs MD Primary Care Provider [phone] Charly Biggs MD Unavailable [phone] Reason for Visit * Reason Onset Date Comments Home Health/Cervical Collar 04/19/2020 Encounter Details Date Type Department Care Team (Late st Contact Info) Description 04/19/2020 Telephone [facility] Orthopaedic Surgery [facility] Medical Office Building [address] [place] [address] Js Barahona MD [address] [place] [address] Home Health/Cervical Collar Social History Tobacco Use Types Packs/Day Years Used Date Smoking Tobacco: Never Smokeless Tobacco: Never Alcohol Use Standard Drinks/Week Comments No 0 (1 standard drink = 0.6 oz pur e alcohol) Comments No Sex and Gender Information Value Date Recorded Sex Assigned at Not on file 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 I returned her call and told her that Dr. Barahona met with her yesterday and based on imaging (CT and radiographs) she is to continue to wear the c-collar for an additional 2months (3 mo from injury date - 03/19/20). She can remove the collar to wash/eat only. An updated CT scan will be ordered for [facility] in mid-June. Further instructions/carewill be based on the results of the CT scan. If Juliet develops any pain, weakness or gait disturbance she should contact our office. documented in this encounter Plan of Treatment Not on file documented as of this encounter Visit Diagnoses Not on filedocumented in this encounter Care Teams Senior Business Development Manager Relationship Specialty Start Date End Date Merlin Biggs MD [address] [place] [address] PCP - General Internal Medicine 02/20/20 11/02/22 Gregg Peace RN Kohinoor Operator Transplant 01/26/1907/04 Regina Contreras RN Kohinoor Operator 12/07/19 Charly Biggs MD [address] [address] Consulting Physician Internal Medicine 03/28/20 documented as of this encounter
--- OUTSIDE RECORDS SUMMARY | 2024-06-27 01:54 | XMS_ITS | Encounter Summary ---
Author Organization [facility] Address [address] [place] [address] Phone Care Team Providers Care Inshore Undersea Warfare Officer Name Role Phone Gregg Peace RN Unavailable [phone] Regina Contreras RN Unavailable [phone] Merlin Biggs MD Primary Care Provider [phone] Charly Biggs MD Unavailable [phone] Reason for Visit * Reason Onset Date Comments Cervical CT/Follow Up Apt 04/26/2020 Encounter Details Date Type Department Care Team (Late st Contact Info) Description 04/26/2020 Telephone [facility] Orthopaedic Surgery [facility] Medical Office Building [address] [place] [address] Js Barahona MD [address] [place] [address]/Follow Up Apt Social History Tobacco Use Types Packs/Day Years Used Date Smoking Tobacco: Never Smokeless Tobacco: Never Alcohol Use Standard Drinks/Week Comments No 0 (1 standard drink = 0.6 oz pur e alcohol) Comments No Sex and Gender Information Value Date Recorded Sex Assigned at Not on file 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 She needs to arrive at 12:40pm and call [phone] from the parking lot before coming into the office. She will then be seen on 06/19/2020 at 11a- (arrival 1030a) with Marilu at [facility] [address] for review and determine if she can remove the collar. 04/18/2020- Dr. Barahona Office Note She will need to remain in a cervical collar for a total of 3 months from the date of injury. In another 2 months from now, she will need to obtain a CT scan of the cervical spine closer to home. She can send that CT scan to our office, and we will evaluate it and call her regarding the results. The patient and her understood and agreed with treatment plan. They are son-in-law, who is a physician, was also on the phone today and understood and agreed with the treatment plan. All questions were answered. documented in this encounter Plan of Treatment Not on file documented as of this encounter Visit Diagnoses Not on filedocumented in this encounter Care Teams Inshore Undersea Warfare Officer Relationship Specialty Start Date End Date Merlin Biggs MD [address] [place] [address] PCP - General Internal Medicine 02/20/20 11/02/22 Gregg Peace RN Drug Abuse Social Worker Transplant 01/26/1907/04 Regina Contreras RN Drug Abuse Social Worker 12/07/19 Charly Bgigs MD [address] [address] Consulting Physician Internal Medicine 03/28/20 documented as of this encounter
--- OUTSIDE RECORDS SUMMARY | 2024-06-27 01:54 | XMS_ITS | Encounter Summary ---
Author Organization [facility] Address [address] [place] [address] Phone Care Team Providers Care Electrical Solderer Name Role Phone Gregg Peace RN Unavailable [phone] Regina Contreras RN Unavailable [phone] Merlin Biggs MD Primary Care Provider [phone] Charly Biggs MD Unavailable [phone] Encounter Details Date Type Department Care Team (Late st Contact Info) Description 05/24/2020 9:45 AM JUVENILE PROBATION OFFICER Office Visit [facility] Nephrology [address] [facility] Advanced Medicine 5th [place] [address] [place] [address] Alma Trevizo NP [address] [place] [address] Encounter for aftercare following kidney transplant (Primary Dx); Hypertension, unspecified type; Encounter for long-term (current) use of high-risk medication; ESRD (end stage renal disease) (CMS/HCC); Encounter for long-term (current) use of antibiotics Social History Tobacco Use Types Packs/Day Years Used Date Smoking Tobacco: Never Smokeless Tobacco: Never Alcohol Use Standard Drinks/Week Comments No 0 (1 standard drink = 0.6 oz pur e alcohol) Comments No Sex and Gender Information Value Date Recorded Sex Assigned at Not on file Legal Sex 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 JUVENILE PROBATION OFFICER Gender Identity Not on file Sexual Orientation Not on file documented as of this encounter Last Filed Vital Signs Vital Sign Reading Time Taken Comments Blood Pressure 152/88 05/24/2020 10:10 AM JUVENILE PROBATION OFFICER Pulse 75 05/24/2020 10:10 AM JUVENILE PROBATION OFFICER Temperature 36.6 ??C (97.8 ??F) 05/24/2020 10:[address] Respiratory Rate - - Oxygen Saturation - - Inhaled Oxygen Concentration - - Weight 57.3 kg (126 lb 6.4 oz) 05/24/2020 10:10 AM JUVENILE PROBATION OFFICER Height 158.8 cm (5' 2.5 ) 05/24/2020 10:10 AM CS T Body Mass Index 22.75 05/24/2020 10:10 AM JUVENILE PROBATION OFFICER documented in this encounter Progress Notes * Alma Trevizo, GENEVIEVE - 05/24/2020 9:45 AM CST POST KIDNEY TRANSPLANT NOTE HISTORY OF PRESENT ILLNESS: Ms. Dunlap is an 85 y.o. female with end-stage renal disease secondary [...] Stent removed 03/10/13. 3. Readmission to [facility] on March 08, 2013 for orthostatic hypertension [...] E. coli in December and January 2014. CURRENT VISIT/REVIEW OF SYSTEMS: Since our last clinic visit, Juliet uDnlap has had a recent hospitalization 03/28/20 after sustaining a fall at home and getting a C2 vertebral fracture, being followed by orthopedics. Denies cough, chest pain, dyspnea. Denies fevers, dysuria, urgency, or frequency. Reports compliance with immunosuppression. All other systems negative. CURRENT MEDICATIONS: Current Outpatient Medications: ??? acyclovir (ZOVIRAX) 200 mg capsule, Take 200 mg by mouth 2 (two) times a day, Disp: , Rfl: ??? aspirin 81 mg tablet, Take 81 mg by mouth every morning. , Disp: , Rfl: ??? benzocaine (ORAJEL) 10 % mucosal gel, Apply to the mouth or throat 3 (three) times a day as needed for mucositis, Disp: 5.3 g, Rfl: 0 ??? cholecalciferol (VITAMIN D-3) 2,000 unit tablet, Take 1 tablet (2,000 Units total) by mouth daily. (Patient taking differently: Take 2,000 Units by mouth block making machine operator before breakfast. ), Disp: 30 tablet, Rfl: 11 ??? cyanocobalamin (Vitamin B-12) 100 mcg tablet, Take 100 mcg by mouth daily , Disp: , Rfl: ??? levothyroxine (SYNTHROID) 100 mcg tablet, TAKE 1 TABLET(100 MCG) BY MOUTH HAT AND CAP PARTS CUTTER HAND AND BEFORE BREAKFAST, Disp: 30 tablet, Rfl: 11 ??? lisinopriL (PRINIVIL,ZESTRIL) 10 mg tablet, Take 1 tablet (10 mg total) by mouth block making machine operator before breakfast, Disp: 90 tablet, Rfl: 3 ??? metoprolol tartrate (LOPRESSOR) 75 mg tablet immediate release tablet, Take 1 tablet (75 mg total) by mouth 2 (two) times a day, Disp: 180 tablet, Rfl: 3 ??? pravastatin (PRAVACHOL) 20 mg tablet, Take 20 mg by mouth nightly. , Disp: , Rfl: ??? predniSONE (DELTASONE) 5 mg tablet, Take 1 tablet (5 mg) by mouth block making machine operator before breakfast, Disp: 30 tablet, Rfl: 11 ??? tacrolimus (PROGRAF) 0.5 mg capsule, Take 1 capsule (0.5 mg total) by mouth every 12 (twelve) hours, Disp: 60 capsule, Rfl: 0 There were no vitals taken for this [...] Chemistries Lab Results Component Value Date SODIUM 134 (L) 03/28/2020 SCRNA 139 04/23/2020 POTASSIUM 5.1 (H) 03/28/2020 SCRK 3.9 04/23/2020 CHLORIDE 101 03/28/2020 CL 104 03/21/2013 SCRCL 107 04/23/2020 CO2 22 03/28/2020 SCRCO2 26 04/23/2020 Anemia eval: Lab Results Component Value Date WBC 5.8 03/28/2020 SCRWBC 5.9 04/23/2020 HGB 14.2 03/28/2020 SCRHGB 12.0 04/23/2020 LABPLAT 190 03/28/2020 SCRPLT 131 (A) 04/23/2020 RETIC 0.091 02/20/2013 IRON 46 08/30/2013 TRANSFERSAT 20 08/30/2013 FERRITIN 700 (H) 02/09/2013 FOLATE 12.6 02/20/2013 Renal Function Lab Results Component Value Date BUNSER 27 (H) 03/28/2020 BUNSER 27 (H) 03/26/2020 BUNSER 32 (H) 03/21/2020 SCRBUN 23 (A) 04/23/2020 SCRBUN 31 (A) 04/13/2020 SCRBUN 24 (A) 03/03/2020 CREATININE 0.70 04/23/2020 CREATININE 0.80 04/13/2020 CREATININE 0.80 03/28/2020 GFRAA 48 (L) 03/21/2013 Renal osteo eval: Lab Results Component Value Date CALCIUM 10.2 03/28/2020 SCRCA 9.8 04/23/2020 PHOS 1.8 (L) 03/21/2013 ALBUMIN 4.1 03/19/2020 SCRALB 3.4 (A) 04/23/2020 Serologies: Lab Results Component Value Date HGBA1C 4.7 02/09/2013 HEPCAB Negative 02/09/2013 Lab Results Component Value Date TACROTR 6.3 03/28/2020 TACROTR 5.7 03/27/2020 TACROTR 6.7 03/26/2020 URINALYSIS: Lab Results Component Value Date PHURINE 7 03/19/2020 PROTURQL 2+ (A) 03/19/2020 GLUCOSEUR Negative 03/19/2020 BLOODUR Negative 03/19/2020 Spot Lab Results Component Value Date PROTUR Negative 05/26/2019 PROTUR Negative 06/09/2018 PROTUR 12.2 04/27/2013 PROTCREAT 0.2 04/27/2013 No results found for: OSMOUR, UREAUR, SODIUMURR, KUR, CLUR, CALCIUMUR Lipids: Lab Results Component Value Date CHOL 140 03/19/2020 SCRTCHOL 122 04/23/2020 HDL 70 03/19/2020 LDL 70 02/09/2013 SCRLDL 55 04/23/2020 TRIG 64 03/19/2020 SCRTRIG 166 04/23/2020 tremethozone LFTs: Lab Results Component Value Date SCRAST 21 04/23/2020 SCRALT 14 04/23/2020 SCRBILI 0.6 04/23/2020 Coags: Lab Results Component Value Date INR 1.1 03/19/2020 ASSESSMENT & PLAN: 1. End-stage renal disease [...] dual immunosuppression therapy most recent FKL was 6.4. She will continue her tacrolimus and prednisone [...] and is planning on dermatology follow up DISPOSITION: Return to clinic in 1 year. NILE PROBATION OFFICER NILE PROBATION OFFICER documented in this encounter Plan of Treatment Scheduled Orders Name Type Priority Associated Diagnoses Order Schedule POCT urinalysis dipstick Point of Care Testing Routine Encounter for aftercare following kidney transplant 8 Occurrences starting 05/24/2020 until 11/21/2024, 6 completed documented as of this encounter Procedures Procedure Name Priority Date/Time Associated Diagnosis Comments POCT URINALYSIS DIPSTICK Routine 05/24/2020 10:18 AM JUVENILE PROBATION OFFICER Encounter for aftercare following kidney transplant documented in this encounter Results * (ABNORMAL) POCT urinalysis dipstick (11/19/2023 11:24 AM CDT) Glucose, ur, POC Negative Negative MG/DL Bilirubin, ur, POC Negative Negative, Small, Moderate, Large Ketones, ur, POC Negative Negative Specific [place], POC 1.025 1.003 - 1.030 Blood, ur, POC Small(A) Negative pH, ur, POC 6.0 5.0 - 8.0 Protein, ur, POC Negative Negative Urobilinogen, urine, POC 1.0 0.2 - 1.0 mg/dL Nitrite, ur, POC Negative Negative Leukocytes, ur, POC Small(A) Negative Lot Number [id number] Urine 11/19/2023 11:2 4 AM CDT Alma Trevizo HYDROELECTRIC PLANT MECHANICAL ENGINEER POINT OF CARE TEST ORDERAB LES Final Result * (ABNORMAL) POCT urinalysis dipstick (05/21/2023 11:32 AM JUVENILE PROBATION OFFICER) Glucose, ur, POC Negative Negative MG/DL TXP NO LAB FOUND Bilirubin, ur, POC Negative Negative, Small, Moderate, Large TXP NO LAB FOUND Ketones, ur, POC Negative Negative TXP NO LAB FOUND Specific [place], POC 1.015 1.003 - 1.030 TXP NO [...] Negative TXP NO LAB FOUND Lot Number [id number] TXP NO LA B FOUND Urine 05/21/2023 11:3 2 AM JUVENILE PROBATION OFFICER Alma Trevizo HYDROELECTRIC PLANT MECHANICAL ENGINEER POINT OF CARE TEST ORDERAB LES Final Result Performing Organization Address [facility] Co de Phone Number TXP NO LAB FOUND * (ABNORMAL) POCT urinalysis dipstick (10/23/2022 11:24 AM CDT) Glucose, ur, POC Negative Negative MG/DL TXP NO LAB FOUND Bilirubin, ur, POC Negative Negative, Small, Moderate, Large TXP NO LAB FOUND Ketones, ur, POC Trace(A) Negative TXP NO LAB FOUND Specific [place], POC 1.025 1.005 - 1.030 TXP NO [...] Negative TXP NO LAB FOUND Lot Number [id number] TXP NO LA B FOUND Urine 10/23/2022 11:2 4 AM CDT Alma Bondgentry [place] POINT OF CARE TEST ORDERAB LES Final Result Performing Organization Address [facility] Co de Phone Number TXP NO LAB FOUND * (ABNORMAL) POCT urinalysis dipstick (05/15/2022 11:19 AM JUVENILE PROBATION OFFICER) Glucose, ur, POC 500.(A) Negative MG/DL TXP NO LAB FOUND Bilirubin, ur, POC Negative Negative, Small, Moderate, Large TXP NO LAB FOUND Ketones, ur, POC Negative Negative TXP NO LAB FOUND Specific [place], POC 1.025 1.005 - 1.030 TXP NO [...] Negative TXP NO LAB FOUND Lot Number [id number] TXP NO LA B FOUND Urine 05/15/2022 11:1 9 AM JUVENILE PROBATION OFFICER Alma Trevizo NP POINT OF CARE TEST ORDERAB LES Final Result Performing Organization Address City/[facility]/ZIP Co de Phone Number [place] NO LAB FOUND * (ABNORMAL) POCT urinalysis dipstick (06/06/2021 11:09 AM JUVENILE PROBATION OFFICER) [facility] Glucose, ur, POC Negative Negative mg/dL TXP NO LAB FOUND Bilirubin, ur, POC Negative Negative, Small, Moderate, Large TXP NO LAB FOUND Ketones, ur, POC Negative Negative TXP NO LAB FOUND Specific [place], POC 1.030 1.005 - 1.030 TXP NO [...] Negative TXP NO LAB FOUND Lot Number [id number] TXP NO LA B FOUND Urine 06/06/2021 11:0 9 AM JUVENILE PROBATION OFFICER Alma Trevizo NP POINT OF CARE TEST ORDERAB LES Final Result [place] NO LAB FOUND * (ABNORMAL) POCT urinalysis dipstick (05/24/2020 10:18 AM JUVENILE PROBATION OFFICER) Glucose, ur, POC Negative Negative mg/dL TXP NO LAB FOUND Bilirubin, ur, POC Negative Negative, Small, Moderate, Large TXP NO LAB FOUND Ketones, ur, POC Negative Negative TXP NO LAB FOUND Specific [place], POC TXP NO LAB FOUND Comment:>=1.030 Blood, ur, POC Negative Negative TXP N O LAB FOUND pH, ur, POC 6.0 5.0 - 8.0 TXP NO L AB FOUND Protein, ur, POC Negative Negative TXP NO LAB FOUND Urobilinogen, urine, POC 0.2 0.2 - 1.0 mg/dL TXP NO LAB FOUND Nitrite, ur, POC Negative Negative TXP NO LAB FOUND Leukocytes, ur, POC 2+(A) Negative TXP NO LAB FOUND Lot Number [id number] TXP NO LA B FOUND Urine 05/24/2020 10:1 8 AM JUVENILE PROBATION OFFICER Alma Trevizo HYDROELECTRIC PLANT MECHANICAL ENGINEER POINT OF CARE TEST ORDERAB LES Final Result TXP NO LAB FOUND documented in this encounter Visit Diagnoses Diagnosis Encounter for aftercare following kidney transplant- Primary Hypertension, unspecified type Encounter for long-term (current) use of high-risk medication Encounter for long-term (current) use of other medications ESRD (end stage renal disease) (CMS/HCC) ([facility]) End stage renal disease Encounter for long-term (current) use of antibiotics documented in this encounter Care Teams Electrical Solderer Relationship Specialty Start Date End Date Merlin Biggs MD [address] [place] [address] PCP - General Internal Medicine 02/20/20 11/02/22 Gregg Peace RN Stockroom Worker Transplant 01/26/1907/04 Regina Contreras RN Stockroom Worker 12/07/19 Charly Biggs MD [address] [address] Consulting Physician Internal Medicine 03/28/20 documented as of this encounter
--- OUTSIDE RECORDS SUMMARY | 2024-06-27 01:54 | XMS_ITS | Encounter Summary ---
Author Organization [facility] Address [address] [place] [address] Phone Care Team Providers Care Property Management Assistant Name Role Phone Gregg Peace RN Unavailable [phone] Regina Contreras RN Unavailable [phone] Merlin Biggs MD Primary Care Provider [phone] Charly Biggs MD Unavailable [phone] Encounter Details Date Type Department Care Team (Late st Contact Info) Description 07/27/2020 Orders Only [facility] Js Barahona MD [address] [address] Closed traumatic minimally displaced fracture of second cervical vertebra, initial encounter ([facility]) Social History Tobacco Use Types Packs/Day Years Used Date Smoking Tobacco: Never Smokeless Tobacco: Never Alcohol Use Standard Drinks/Week Comments No 0 (1 standard drink = 0.6 oz pur e alcohol) Comments No Sex and Gender Information Value Date Recorded Sex Assigned at Not on file Legal Sex 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 MARKETING SERVICES COORDINATOR Gender Identity Not on file Sexual Orientation Not on file documented as of this encounter Plan of Treatment Not on file documented as of this encounter Procedures Procedure Name Priority Date/Time Associated Diagnosis Comments CT CERVICAL SPINE WO CONTRAST Schedule Routine, Read Routine (OP Routine) 07/26/2020 4:28 PM MARKETING SERVICES COORDINATOR Closed traumatic minimally displaced fracture of second cervical vertebra, initial encounter ([facility]) documented in this encounter Results * CT Cervical Spine WO Contrast (07/26/2020 4:28 PM MARKETING SERVICES COORDINATOR) Anatomical Region Laterality Modality Spine N/A Computed Tomogra phy Js Barahona MD IMG CT PROCEDURES Final Re sult documented in this encounter Visit Diagnoses Diagnosis Closed traumatic minimally displaced fracture of second cervical vertebra, initial encounter ([facility]) documented in this encounter Care Teams Property Management Assistant Relationship Specialty Start Date End Date Merlin Biggs MD [address] [place] [address] PCP - General Internal Medicine 02/20/20 11/02/22 Gregg Peace RN Relay Operator Transplant 01/26/1907/04 Regina Contreras RN Relay Operator 12/07/19 Charly Biggs MD [address] [address] Consulting Physician Internal Medicine 03/28/20 documented as of this encounter
--- OUTSIDE RECORDS SUMMARY | 2024-06-27 01:54 | XMS_ITS | Encounter Summary ---
Author Organization [facility] Address [address] [place] [address] Phone Care Team Providers Care Steward/Stewardess Economy Class Name Role Phone Gregg Peace RN Unavailable [phone] Regina Contreras RN Unavailable [phone] Merlin Biggs MD Primary Care Provider [phone] Charly Biggs MD Unavailable [phone] Reason for Referral * Diagnostic Imaging (Routine) - Closed Specialty Diagnoses / Procedures Referred By Contac t Referred To Contact Diagnoses Closed traumatic minimally displaced fracture of second cervical vertebra, initial encounter (HCC) Procedures CT Cervical Spine WO Contrast Js Barahona MD Phone: tel: fax: External Order Referral ID Status Reason Start Date Expiration Date Visits Re quested Visits Authorized [id number] Closed 03/30/2020 04/29/2021 1 1 Reason for Visit * Reason Onset Date Comments Cspine CT and Apt with STEFANIA 03/29/2020 Encounter Details Date Type Department Care Team (Late st Contact Info) Description 03/29/2020 Telephone [facility] Orthopaedic Surgery [address] [place] [address] Medical Office Building [address] [place] [address] Js Barahona MD [address] [facility] [address] [place] [address] and A[address] with STEFANIA Social History Tobacco Use Types Packs/Day Years Used Date Smoking Tobacco: Never Smokeless Tobacco: Never Alcohol Use Standard Drinks/Week Comments No 0 (1 standard drink = 0.6 oz pur e alcohol) Comments No Sex and Gender Information Value Date Recorded Sex Assigned at Not on file Legal Sex 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 BOMB TECHNICIAN Gender Identity Not on file Sexual Orientation Not on file documented as of this encounter Miscellaneous Notes * Telephone Encounter - Leah Willson RN - 04/04/2020 2:16 PM CDT Suzanne returned my call at 1:24p and left a message after reviewing the letter and asked that I speak to Juliet's about coordinating an apt. She put him on the phone. He states her neck pain is intermittent. She is wearing the collar at all times. He will check his calender when he gets home and will call me back to schedule a visit. * Telephone Encounter - Leah Willson RN - 04/04/2020 12:37 PM CDT I called today and left a message for Ced () to update him on the results of the CT scan. * Telephone Encounter - Leah Willson RN - 04/04/2020 12:15 PM CDT Images from the original note were not included. MD Leah Hickey RN ?? In comparing the March [address] scan, the C2 fracture alignment looks unchanged, but is certainly a fracture pattern that we could fix with surgery based on the patient's level of pain and disability. ??At some point, she should come and be seen clinically. I called today to talk to the nurse caring for Juliet today. I spoke with Suzanne. She didn't wantthe results via phone and requested that we fax a note to her at [phone] so that she can provide the results to the onsite physician. * Telephone Encounter - Leah Willson RN - 04/03/2020 9:[address] has been received via [facility] and pushed to [facility]. I have sent a message to Dr. Barahona to review. * Telephone Encounter - Leah Willson RN - 04/03/2020 8:06 AM CDT Suzanne left a message yesterday at 4:3p that they faxed the CT report to our office and requested a return call. I called back this morning and spoke to Herbie. She states that the imaging was pushed to [facility] and I requested that she fax the report to our office at [phone]. I was not able to view the imaging in [facility]. I called radiology at [facility] - [phone] and spoke to Jun. Per their policy we have to fax a request for continuation of care . I toldhim that Dr. Barahona is the ordering provider and he states that Dr. Story is the ordering provider on the report. The only explanation that I have is that the rehab provider transcribed Dr. Barahona's order that was provided to them on 03/30/2020 and didn't give the information to have the imaging sentto our office. I have faxed this request. * Telephone Encounter - Leah Willson RN - 03/30/2020 3:41 PM CDT Gaby left a message that they have not received the CT order yet. She asked that I fax it to her [phone]. I have done that again. I also asked Herbie to try faxing it to Gaby from the office since I am working remotely. Gaby can be reached at [phone]. * Addendum Note - Leah Willson RN - 03/30/2020 1:04 PM CDTAddended by: LEAH WILLSON on: 03/30/2020 01:04 PM Modules accepted: Orders * Telephone Encounter - Leah Willson RN - 03/30/2020 12:59 PM CDT I called and spoke to Gaby, the nurse taking care of Juliet at the rehab in [place], [place] ([facility]). She reports Juliet does have her c-collar on and I explained that Dr. Barahona wantsher to have an updated cervical CT scan completed next week (okay to remove the collar for the scanas long as the patient is able to lay still). Gaby asked that I fax the order to her at [phone]. This has been completed. She will have the CT completed next week and send the images via push . * Telephone Encounter - Leah Willson RN - 03/29/2020 8:39 AM CDT Patient's left a message a moment ago and I returned his call. He states that Juliet wasdischarged from [facility] yesterday and was transferred to [facility] in [place], [place]. He is requesting to cancel the appointment with STEFANIA on 03/30 and he already called and canceled the CT scan. I told him that I can talk to Dr. Barahona and plan to order the CT scan to be completed at [facility] and have the imaging sent to our office for review to check on her cervical injury. I will reach out to Dr. Barahona and update the family with the plan. documented in this encounter Plan of Treatment Not on file documented as of this encounter Results * CT Cervical Spine WO Contrast (04/03/2020 11:59 AM CDT) Anatomical Region Laterality Modality Spine N/A Computed Tomogra phy Js Gerber Barahona MD IMG CT PROCEDURES Final Re sult documented in this encounter Visit Diagnoses Diagnosis Closed traumatic minimally displaced fracture of second cervical vertebra, initial encounter (HCC)- Primary documented in this encounter Care Teams Steward/Stewardess Economy Class Relationship Specialty Start Date End Date Merlin Biggs MD [address] [place] [address] PCP - General Internal Medicine 02/20/20 11/02/22 Gregg Peace RN Plant Mechanic Transplant 01/26/1907/04 Regina Contreras RN Plant Mechanic 12/07/19 Charly Biggs MD [address] [address] Consulting Physician Internal Medicine 03/28/20 documented as of this encounter
--- OUTSIDE RECORDS SUMMARY | 2024-06-27 01:54 | XMS_ITS | Encounter Summary ---
Author Organization [facility] Address [address] [place] [address] Care Team Providers Care Paper Finisher Name Role Phone Gregg Peace RN Unavailable [phone] Regina Contreras RN Unavailable [phone] Merlin Biggs MD Primary Care Provider [phone] Charly Biggs MD Unavailable [phone] Encounter Details Date Type Department Care Team (Latest Contact Info) Description 04/03/2020 11:50 AM CDT - 04/03/2020 11:59 PM CDT Hospital Encounter [facility] [address] [place] [address] Discharge Disposition: Discharge to home or self care Social History Tobacco Use Types Packs/Day Years Used Date Smoking Tobacco: Never Smokeless Tobacco: Never Alcohol Use Standard Drinks/Week Comments No 0 (1 standard drink = 0.6 oz pur e alcohol) Comments No Sex and Gender Information Value Date Recorded Sex Assigned at Not on file 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 Gender Identity Not on file Sexual Orientation Not on file documented as of this encounter Medications at Time of Discharge cyanocobalamin (Vitamin B-12) 100 mcg tablet Take 1 tablet (100 mcg total) by mouth daily acetaminophen 500 mg capsule Take 2 capsules (1,000 mg total) by mouth every 6 (six) hours 240 tablet 03/28/2020 0 enoxaparin (LOVENOX) 30 mg/0.3 mL syringeIndication s:Deep Vein Thrombosis Prevention Inject 0.3 mL (30 mg total) under the skin every 12 (twelve) hours 18 mL 03/28/2020 0 lidocaine (LIDODERM) 5 % Place 2 patches on the skin daily Remove & discard patch within 12 hours or as directed by . 60 patch 03/29/2020 0 polyethylene glycol (MIRALAX) 17 gram packetIndications :constipation Take 1 packet (17 g total) by mouth daily 30 packet 03/29/2020 0 predniSONE (DELTASONE) 5 mg tabletIndications :Organ Transplant Rejection Take 1 tablet (5 mg) by mouth media arts professor before breakfast 30 tablet 11 06/16/2019 0 trimethoprim (TRIMPEX) 100 mg tabletIndications :Prevention of Bacterial Urinary Tract Infection Take 1 tablet (100 mg total) by mouth nightly 30 tablet 03/28/2020 0 acyclovir (ZOVIRAX) 200 mg capsule Take 200 mg by mouth 2 (two) times a day 0 aspirin 81 mg tabletIndications :prevention of thrombosis [...] mouth daily. 30 tablet 11 02/18/2018 2 cyclobenzaprine (FLEXERIL) 5 mg tablet Take 1 tablet (5 mg total) by mouth 3 (three) times a day as needed for muscle spasms 30 tablet 03/28/2020 0 gabapentin (NEURONTIN) 300 mg capsule Take 1 capsule (300 mg total) by mouth 2 (two) times a day 60 capsule 03/28/2020 0 levothyroxine (SYNTHROID) 100 mcg tablet TAKE 1 TABLET(100 MCG) BY MOUTH PET FEEDER AND BEFORE BREAKFAST 30 tablet 11 07/11/2019 1 lisinopriL (PRINIVIL,ZESTRIL ) 10 mg tabletIndications :hypertension Take 1 tablet (10 mg total) by mouth media arts professor before breakfast 90 tablet 3 01/09/2020 1 metoprolol tartrate (LOPRESSOR) 75 mg tablet immediate release tablet Take 1 tablet (75 mg total) by mouth 2 (two) times a day 60 tablet 03/28/2020 0 pravastatin (PRAVACHOL) 20 mg tablet Take 1 tablet (20 mg total) by mouth nightly 12/16/2016 4 senna-docusate (PERICOLACE) 8.6-50 mg Take 2 tablets by mouth 2 (two) times a day 120 tablet 03/28/2020 0 sodium bicarbonate 650 mg tablet Take by mouth 06/24/2018 1 tacrolimus (PROGRAF) 0.5 mg capsuleIndication s:immunosuppressi on Take 1 capsule (0.5 mg total) by mouth every 12 (twelve) hours 60 capsule 03/28/2020 1 traMADoL (ULTRAM) 50 mg tablet Take 1 tablet (50 mg total) by mouth 4 (four) times a day as needed for pain 30 tablet 03/28/2020 0 vitamin B complex with vitamin C tablet VITAMIN C TABLET 08/19/2018 1 documented as of this encounter Discharge Disposition Disposition Code Departure Means Destination Discharge to home or self care documented in this encounter Plan of Treatment Not on file documented as of this encounter Procedures Procedure Name Priority Date/Time Associated Diagnosis Comments NEURO CT MR OUTSIDE REFERENCE Routine 04/03/2020 11:50 AM CDT Diagnosis unknown documented in this encounter Results * Neuro CT MR Outside Reference (04/03/2020 11:50 AM CDT) Impressions [facility] - 04/03/2020 11:50 AM CDT These images are for Reference purposes only and have not been reviewed by [facility] Radiology. ??There will be no report generated by a [facility] Radiologist. Narrative [facility] - 04/03/2020 11:50 AM CDT EXAMINATION: ??Images For Reference Purposes Only sJ Barahona MD IMG CT PROCEDURES Final Re sult [facility] documented in this encounter Visit Diagnoses Not on filedocumented in this encounter Care Teams Paper Finisher Relationship Specialty Start Date End Date Merlin Biggs MD [address] [place] [address] PCP - General Internal Medicine 02/20/20 11/02/22 Gregg Peace RN Vessel Manager Transplant 01/26/1907/04 Regina Contreras RN Vessel Manager 12/07/19 Charly Biggs MD [address] [address] Consulting Physician Internal Medicine 03/28/20 documented as of this encounter
--- OUTSIDE RECORDS SUMMARY | 2024-06-27 01:54 | XMS_ITS | Encounter Summary ---
Author Organization [facility] Address [address] [place] [address] Phone Care Team Providers Care Gun Striper Name Role Phone Gregg Peace RN Unavailable [phone] Regina Contreras RN Unavailable [phone] Merlin Biggs MD Primary Care Provider [phone] Charly Biggs MD Unavailable [phone] Reason for Referral * Diagnostic Imaging (Routine) - Closed Specialty Diagnoses / Procedures Referred By Contac t Referred To Contact Radiology Diagnoses Closed traumatic minimally displaced fracture of second cervical vertebra, initial encounter (HCC) Procedures CT Cervical Spine WO Contrast Js Barahona MD Phone: tel: fax: External Order Referral ID Status Reason Start Date Expiration Date Visits Re quested Visits Authorized [id number] Closed 04/18/2020 05/18/2021 1 1 * Diagnostic Imaging (Routine) - Closed Specialty Diagnoses / Procedures Referred By Contac t Referred To Contact Diagnoses Closed traumatic minimally displaced fracture of second cervical vertebra, initial encounter (HCC) Procedures XR Spine Cervical 2 or 3 Views Js Barahona MD Phone: tel: fax: [facility] [address] [place] [address] Referral ID Status Reason Start Date Expiration Date Visits Re quested Visits Authorized [id number] Closed 04/09/2020 05/09/2021 1 1 Reason for Visit * Reason Comments New Patient Pain Encounter Details Date Type Department Care Team (Late st Contact Info) Description 04/18/2020 10:30 AM CDT Office Visit [facility] Orthopaedic Surgery [address] [facility] Medical Office Building [address] [place] [address] Js Barahona MD [address] [address] Closed traumatic minimally displaced fracture of second cervical vertebra, initial encounter (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 Gender Identity Not on file Sexual Orientation Not on file documented as of this encounter Last Filed Vital Signs Vital Sign Reading Time Taken Comments Blood Pressure - - Pulse - - Temperature - - Respiratory Rate - - Oxygen Saturation - - Inhaled Oxygen Concentration - - Weight 55.3 kg (122 lb) 04/18/2020 10:28 AM CDT Height 157.5 cm (5' 2 ) 04/18/2020 10:28 AM CDT Body Mass Index 22.31 04/18/2020 10:28 AM CDT documented in this encounter Progress Notes * Js Barahona MD - 04/18/2020 10:30 AM CDT NEW PATIENT VISIT CHIEF COMPLAINT C2 fracture, date of injury: 03/19/2020 HISTORY OF PRESENT ILLNESS 85-year-old female who presents as a new patient evaluation after being seen in the [facility] ED for a A2glalmxtm sustained on 03/19/2020. Please refer to prior orthopedic spine surgery consult note for further details. Briefly, the patient sustained a fall from standing when getting out of her bed. Shewas diagnosed with an isolated C2 fracture and was evaluated by our team in the ED. She was neurologically intact. There is a plan for non operative management in a Robinson J cervical collar. She has been wearing her cervical collar at all times as instructed for the past month. She was recently discharged from a rehab facility approximately 1.5 weeks ago. She denies any weakness, numbness, tingling in her bilateral upper and bilateral lower extremities. She ambulates without an assistive device.She has returned to playing piano without any difficulties. Denies any significant neck pain. She is now 4 weeks into nonoperative management of her C2 fracture. She did have a repeat cervical spine CT done on 04/03/2020 while she was still at her rehab facility. This demonstrated no significant changes from her initial imaging and was reviewed by Dr. Barahona at that time. PAST MEDICAL HISTORY ESRD status post renal transplant 2012 Gout Vasculitis Heart murmur Parathyroidectomy 1994 PAST SURGICAL HISTORY Renal transplant, 2012 Parathyroidectomy, 1994 INITIAL REVIEW OF MEDICATIONS She has a current medication list which includes the following prescription(s): acetaminophen, acyclovir, aspirin, benzocaine, cholecalciferol, cyanocobalamin, enoxaparin, levothyroxine, lidocaine, lisinopril, metoprolol tartrate, polyethylene glycol, pravastatin, prednisone, tacrolimus, and trimethoprim. 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 Enjoys playing piano. She is . She has 2 children. She lives with her . Never smoker. Never alcohol use. Denies illicit drug use. REVIEW OF SYSTEMS Please see review of systems noted in the patient questionnaire. Reviewed and signed by me 04/18/20. Otherwise negative other than as noted in the HPI. PHYSICAL EXAMINATION Alert and oriented x3, cooperative with exam Wearing Robinson J cervical collar Ambulates with a nonantalgic gait without assist device 5/5 strength in the deltoids, biceps, triceps, wrist extensors, wrist flexors, sales service manager strength, interossei in the bilateral upper extremities Sensation intact to light touch in the C5-T1 distributions in the bilateral upper extremities Negative Saloni bilaterally Grossly intact strength in the bilateral lower extremities REVIEW OF X-RAY/STUDIES Plain films of the cervical spine were obtained in Robinson J collar today. These films were reviewed.They demonstrate no significant displacement of previously noted C2 vertebral body fracture. Degenerative changes throughout the cervical spine. CT scan of the cervical spine from 04/03/2020 was again reviewed and compared to initial CT scan ofthe cervical spine from date of injury 03/19/2020. This demonstrated no significant interval changeof previously noted C2 vertebral body fracture. The fracture involves the C2 vertebral body, bilateral lateral masses (more on the right side), and right pedicle. No central canal stenosis. ASSESSMENT AND PLAN 85-year-old female who is status post renal transplant who presents approximately 4 weeks after sustaining a C2 vertebral body fracture. She is being non operatively managed in a Robinson J cervical collar. She has been compliant with wearing her cervical collar at all times. Neurologically intact. Nolong tract signs. Plain films from today and CT scan from 2 weeks after injury were again reviewed in the office. No significant changes from her injury films. Plan will be for continued non operative management in a Robinson J cervical collar. She will need to remain in a cervical collar for a total of 3 months from the date of injury. In another 2 months from now, she will need to obtain a CT scanof the cervical spine closer to home. She can send that CT scan to our office, and we will evaluateit and call her regarding the results. The patient and her understood and agreed with treatment plan. They are son-in-law, who is a physician, was also on the phone today and understood and agreed with the treatment plan. All questions were answered. The patient was seen and examined with Dr. Barahona, who agrees with the treatment plan as stated above. --- Butch Fernandez MD Fellow, Spine Surgery Department of Orthopaedic Surgery Pager: ATTENDING ADDENDUM The patient was seen and examined with the spine fellow, and I agree with the above assessment and plan. Js Barahona MD Electrical Tester Battery [facility] Orthopedics Spine Surgery Division documented in this encounter Plan of Treatment Not on file documented as of this encounter Results * CT Cervical Spine WO Contrast (07/26/2020 4:28 PM FACULTY I ON CALL MEDICAL ASSISTANT) Anatomical Region Laterality Modality Spine N/A Computed Tomogra phy Js Barahona MD IMG CT PROCEDURES Final Re sult * XR Spine Cervical 2 or 3 Views (04/18/2020 10:22 AM CDT) Anatomical Region Laterality Modality Spine N/A Computed Radiogr aphy 04/18/2020 11:5 6 AM CDT Impressions 04/18/2020 12:19 PM CDT 1. ??Healing, nondisplaced fracture of the dens with interval resolution of mild associated prevertebral soft tissue swelling. Dictated by: Raghav Hayden M.D. The radiology attending physician has personally reviewed this study, and had reviewed and/or edited this written report and agrees with it. Electronically signed by: Juan F Lees MD, PHD Narrative 04/18/2020 12:19 PM CDT EXAMINATION: XR SPINE CERVICAL 2 OR 3 VIEWS HISTORY: ??Minimally displaced fracture of the C2. COMPARISON: Plain radiographs of the cervical spine dated 03/21/[address] of the cervical spine dated 03/31/2020. FINDINGS: 2 views of the cervical spine are submitted for interpretation. The patient is imaged and a cervical spine collar. Interval healing of a nondisplaced fracture of the dens without of bilateral dental widening. ??There is been interval resolution of the mild associated prevertebral soft tissue swelling. ??The fracture is obscured on the frontal view. There is mild anterolisthesis of C3 on C4 and C4 on C5. ??The vertebral heights are otherwise normal. ??There is multilevel cervical degenerative disc disease, greatest and severe at C5-C6. ??There is also multi segmental facet joint and uncovertebral osteoarthritis. There is calcified atherosclerosis of the carotid arteries. Procedure Note Juan F Lees MD PhD - 04/18/2020 EXAMINATION: XR SPINE CERVICAL 2 OR 3 VIEWS HISTORY: Minimally displaced fracture of the C2. COMPARISON: Plain radiographs of the cervical spine dated 03/21/[address] of the cervical spine dated 03/31/2020. FINDINGS: 2 views of the cervical spine are submitted for interpretation. The patient is imaged and a cervical spine collar. Interval healing of a nondisplaced fracture of the dens without of bilateral dental widening. There is been interval resolution of the mild associated prevertebral soft tissue swelling. The fracture is obscured on the frontal view. There is mild anterolisthesis of C3 on C4 and C4 on C5. The vertebral heights are otherwise normal. There is multilevel cervical degenerative disc disease, greatest and severe at C5-C6. There is also multi segmental facet joint and uncovertebral osteoarthritis. There is calcified atherosclerosis of the carotid arteries. IMPRESSION: 1. Healing, nondisplaced fracture of the dens with interval resolution of mild associated prevertebral soft tissue swelling. Dictated by: Raghav Hayden M.D. The radiology attending physician has personally reviewed this study, and had reviewed and/or edited this written report and agrees with it. Electronically signed by: Juan F Lees MD, PHD Js Gerber Barahona MD IMG XR PROCEDURES Final Re sult documented in this encounter Visit Diagnoses Diagnosis Closed traumatic minimally displaced fracture of second cervical vertebra, initial encounter (HCC)- Primary Closed traumatic minimally displaced fracture of second cervical vertebra, initial encounter (HCC) documented in this encounter Discontinued Medications Medication Sig Discontinue Reason Start Date End Da te traMADoL (ULTRAM) 50 mg tablet Take 1 tablet (50 mg total) by mouth 4 (four) times a day as needed for pain Therapy completed 03/28/2020 04/18/2020 senna-docusate (PERICOLACE) 8.6-50 mg Take 2 tablets by mouth 2 (two) times a day Therapy completed 03/28/2020 04/18/2020 gabapentin (NEURONTIN) 300 mg capsule Take 1 capsule (300 mg total) by mouth 2 (two) times a day Therapy completed 03/28/2020 04/18/2020 cyclobenzaprine (FLEXERIL) 5 mg tablet Take 1 tablet (5 mg total) by mouth 3 (three) times a day as needed for muscle spasms Therapy completed 03/28/2020 04/18/2020 documented as of this encounter Care Teams Gun Striper Relationship Specialty Start Date End Date Merlin Biggs MD [address] [place] [address] PCP - General Internal Medicine 02/20/20 11/02/22 Gregg Peace RN Batch Plant Supervisor Transplant 01/26/1907/04 Regina Contreras RN Batch Plant Supervisor 12/07/19 Charly Biggs MD [address] [address] Consulting Physician Internal Medicine 03/28/20 documented as of this encounter
--- OUTSIDE RECORDS SUMMARY | 2024-06-27 01:54 | XMS_ITS | Encounter Summary ---
Author Organization [facility] Address [address] [place] [address] Phone Care Team Providers Care Crozer Name Role Phone Gregg Peace RN Unavailable [phone] Regina Contreras RN Unavailable [phone] Merlin Biggs MD Primary Care Provider [phone] Charly Biggs MD Unavailable [phone] Reason for Referral * Diagnostic Imaging (Routine) - Closed Specialty Diagnoses / Procedures Referred By Contac t Referred To Contact Diagnoses Closed traumatic minimally displaced fracture of second cervical vertebra, initial encounter (HCC) Procedures XR Spine Cervical 2 or 3 Views Marilu Rosenberg CNS Phone: tel: fax: [facility] [address] [place] [address] Referral ID Status Reason Start Date Expiration Date Visits Re quested Visits Authorized [id number] Closed 06/19/2020 07/19/2021 1 1 SIFICATION OPERATOR * Diagnostic Imaging (Routine) - Closed Specialty Diagnoses / Procedures Referred By Contac t Referred To Contact Diagnoses Closed traumatic minimally displaced fracture of second cervical vertebra, initial encounter (HCC) Procedures XR Spine Cervical 2 or 3 Views Marilu Rosenberg CNS Phone: tel: fax: [facility] [address] [place] [address] Referral ID Status Reason Start Date Expiration Date Visits Re quested Visits Authorized [id number] Closed 06/15/2020 07/15/2021 1 1 SIFICATION OPERATOR Reason for Visit * Reason Comments New Patient Encounter Details Date Type Department Care Team (Late st Contact Info) Description 06/19/2020 11:00 AM EMULSIFICATION OPERATOR Office Visit [facility] Orthopaedic Surgery [address] [place] [id number] Marilu Rosenberg CNS [address] [facility] [address] [place] [address] Closed displaced fracture of second cervical vertebra [...] on file Legal Sex 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 EMULSIFICATION OPERATOR Gender Identity Not on file Sexual Orientation Not on file documented as of this encounter Last Filed Vital Signs Vital Sign Reading Time Taken Comments Blood Pressure - - Pulse - - Temperature - - Respiratory Rate - - Oxygen Saturation - - Inhaled Oxygen Concentration - - Weight 56.7 kg (125 lb) 06/19/2020 11:02 AM EMULSIFICATION OPERATOR Height 157.5 cm (5' 2 ) 06/19/2020 11:02 AM EMULSIFICATION OPERATOR Body Mass Index 22.86 06/19/2020 11:02 AM EMULSIFICATION OPERATOR documented in this encounter Progress Notes * Marilu Rosenberg CNS - 06/19/2020 11:00 AM CST ESTABLISHED PATIENT VISIT HISTORY OF PRESENT ILLNESS: Ms. Dunlap presents to office today for follow-up of her cervical fracture. She sustained a C2 fracture approximately 3 months ago following a fall. She was discharged to home in a [place] cervical collar. She saw Dr. Barahona in follow- up. He continue the [place] cervical collar and ordered a CTscan for 3 months post injury. She is here today for follow-up. She reports mild neck discomfort. She does not have any radiating arm pain. She denies hand numbness. She denies changes in hand coordination and alterations in gait. PAST MEDICAL/SURGICAL/SOCIAL/FAMILY HISTORY/DRUG ALLERIGES/MEDICATIONS/REVIEW OF SYSTEMS The patient questionnaire was updated by the patient and reviewed by me today. PHYSICAL EXAMINATION: General appearance: In no acute distress, well developed, well nourished Gait: Appears normal, no use of assist devices Head: Normocephalic, atraumatic Oral Cavity: Mucosa moist Skin: Warm and dry, normal turgor and color Vascular: Peripheral pulses palpable in both wrists and both feet Extremities: No cyanosis, clubbing or edema noted Musculoskeletal: No atrophy noted. General Neurological: Cranial Nerves: II-XII normal bilaterally Speech: Normal Involuntary movements: no tremors seen Cervical Spine Exam: Inspection: There are no skin lesions. There is no visible deformity Palpation: There is mild tenderness to palpation directly over the cervical spine Range of Motion of the Neck: We did perform gentle range of motion. She reported stiffness but no real pain Range of Motion of the Shoulders: Full and nontender bilaterally Motor Strength: 5/5 in both upper and lower extremities Reflexes: Symmetrical in both upper and lower extremities Hoffmans sign: Negative bilaterally Sensation: Intact to light touch REVIEW OF X-RAY/STUDIES: Imaging studies of the cervical spine were ordered and reviewed by me today. There is an unchanged nondisplaced dens fracture. There is normal motion with bending. 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 Multiple facet and uncovertebral joint arthropathy is unchanged. Noprevertebral soft tissue swelling. I do not see any evidence of instability on the flexion-extension x-rays. I reviewed a CT scan which was performed on June 18. It shows a nondisplaced fracture throughthe base of the odontoid process. There is sclerosis indicating evidence of routine healing. I do not think the fracture has healed completely. ASSESSMENT/PLAN: Ms. Dunlap continues to improve with conservative management of her cervical fracture. As she continues to have some discomfort to palpation I would like to transition her to a soft cervical collar to wear when she is up and out of bed. I think she can sleep without the collar. She will follow up in my office in 2 months time. I am hopeful we will wean her from the collar entirely. She voices understanding of the plan. She knows to contact my office with questions or concerns. FOLLOW-UP: 2 months and as needed Marilu Rosenberg RN, MSN, HIGH SCHOOL BIOLOGY TEACHER Spine Service [facility] Collaborative practice with Dr. Js Rosenberg RN, MSN, HIGH SCHOOL BIOLOGY TEACHER dictating using [employer] Direct Software. Rodeo Performer variances may occur. SIFICATION OPERATOR documented in this encounter Plan of Treatment Not on file documented as of this encounter Results * XR Spine Cervical 2 or 3 Views (06/19/2020 11:58 AM EMULSIFICATION OPERATOR) Anatomical Region Laterality Modality Spine N/A Computed Radiogr aphy 06/19/2020 12:1 7 PM EMULSIFICATION OPERATOR Impressions 06/19/2020 12:17 PM EMULSIFICATION OPERATOR Healing nondisplaced dens fracture. Electronically signed by: George Vicente M.D. Narrative 06/19/2020 12:17 PM EMULSIFICATION OPERATOR EXAMINATION: XR SPINE CERVICAL 2 OR 3 VIEWS HISTORY: C2 fracture FINDINGS: 2 views of the cervical spine are compared to radiographs dated 06/19/2020. There is an unchanged nondisplaced dens fracture. There is normal motion with bending. 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 Multiple facet and uncovertebral joint arthropathy is unchanged. No prevertebral soft tissue swelling. Procedure Note George Vicente MD - 06/19/2020 EXAMINATION: XR SPINE CERVICAL 2 OR 3 VIEWS HISTORY: C2 fracture FINDINGS: 2 views of the cervical spine are compared to radiographs dated 06/19/2020. There is an unchanged nondisplaced dens fracture. There is normal motion with bending. 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 Multiple facet and uncovertebral joint arthropathy is unchanged. No prevertebral soft tissue swelling. IMPRESSION: Healing nondisplaced dens fracture. Electronically signed by: George Vicente M.D. Marilu Rosenberg [facility] IMG XR PROCEDURES Final Res ult * XR Spine Cervical 2 or 3 Views (06/19/2020 11:00 AM EMULSIFICATION OPERATOR) Anatomical Region Laterality Modality Spine N/A Computed Radiogr aphy 06/19/2020 11:0 9 AM EMULSIFICATION OPERATOR Impressions 06/19/2020 11:09 AM EMULSIFICATION OPERATOR 1. ??Unchanged healing nondisplaced dens fracture. 2. 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 Electronically signed by: Lj Pina M.D. Narrative 06/19/2020 11:09 AM EMULSIFICATION OPERATOR XR SPINE CERVICAL 2 OR 3 VIEWS HISTORY: ??Cervical fracture. FINDINGS: ??2 views of the cervical spine are obtained and compared with 04/18/2020. Redemonstrated is a healing nondisplaced dens fracture. Alignment is unchanged. Multilevel degenerative disc disease is present, most severe at C5-6. Minimal anterolisthesis of C4 on 5 is present which is unchanged. Vertebral body heights are preserved. The soft tissues are normal. Procedure Note Lj Pina MD - 06/19/2020 XR SPINE CERVICAL 2 OR 3 VIEWS HISTORY: Cervical fracture. FINDINGS: 2 views of the cervical spine are obtained and compared with 04/18/2020. Redemonstrated is a healing nondisplaced dens fracture. Alignment is unchanged. Multilevel degenerative disc disease is present, most severe at C5-6. Minimal anterolisthesis of C4 on 5 is present which is unchanged. Vertebral body heights are preserved. The soft tissues are normal. IMPRESSION: 1. Unchanged healing nondisplaced dens fracture. 2. Multilevel degenerative disc and facet disease of the cervical spine. Electronically signed by: Lj Pina M.D. Marilu Rosenberg [facility] IMG XR PROCEDURES Final Res ult documented in this encounter Visit Diagnoses Diagnosis Closed displaced fracture of second cervical vertebra with routine healing, unspecified fracture morphology, subsequent encounter- Primary Closed traumatic minimally displaced fracture of second cervical vertebra, initial encounter ([facility]) Closed traumatic minimally displaced fracture of second cervical vertebra, initial encounter (HCC) documented in this encounter Care Teams Crozer Relationship Specialty Start Date End Date Merlin Biggs MD [address] [place] [address] PCP - General Internal Medicine 02/20/20 11/02/22 Gregg Peace, DEREK U.S. Commissioner Transplant 01/26/1907/04 Regina Contreras RN U.S. Commissioner 12/07/19 Charly Biggs MD [address] [address] Consulting Physician Internal Medicine 03/28/20 documented as of this encounter
--- OUTSIDE RECORDS SUMMARY | 2024-06-27 01:54 | XMS_ITS | Encounter Summary ---
Author Organization [facility] Healthcare Address [address] [place] [address] Care Team Providers Care Arborer Name Role Phone Gregg Peace RN Unavailable [phone] Regina Contreras RN Unavailable [phone] Merlin Biggs MD Primary Care Provider [phone] Charly Biggs MD Unavailable [phone] Encounter Details Date Type Department Care Team (Late st Contact Info) Description 06/13/2020 Telephone [facility] Transplant Kidney [address] [address] [phone] [place] [address] Liss Huynh Social History Tobacco Use Types Packs/Day Years Used Date Smoking Tobacco: Never Smokeless Tobacco: Never Alcohol Use Standard Drinks/Week Comments No 0 (1 standard drink = 0.6 oz pur e alcohol) Comments No Sex and Gender Information Value Date Recorded Sex Assigned at Not on file Legal Sex 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 EXPORT FREIGHT MANAGER Gender Identity Not on file Sexual Orientation Not on file documented as of this encounter Miscellaneous Notes * Telephone Encounter - Liss Huynh - 06/13/2020 9:46 AM CST Please call pt. She has a ? Regarding the COVID vaccine. Elida Contreras RN: Called pt to discuss. States that she was curious about taking the vaccine and the age of her kidney. Let her know that we do not have enough information on the vaccine at this time. Pt verbalized understanding and will not get the vaccine until she hears that is it is approved by our team. RT FREIGHT MANAGER RT FREIGHT MANAGER documented in this encounter Plan of Treatment Not on file documented as of this encounter Visit Diagnoses Not on filedocumented in this encounter Care Teams Arborer Relationship Specialty Start Date End Date Merlin Biggs MD [address] [place] [address] PCP - General Internal Medicine 02/20/20 11/02/22 Gregg Peace RN Stove Mounter Transplant 01/26/1907/04 Regina Contreras RN Stove Mounter 12/07/19 Charly Biggs MD [address] [address] Consulting Physician Internal Medicine 03/28/20 documented as of this encounter
--- OUTSIDE RECORDS SUMMARY | 2024-06-27 01:54 | XMS_ITS | Encounter Summary ---
Author Organization [facility] Address [address] [place] [address] Care Team Providers Care Well Drill Operator Name Role Phone Gregg Peace RN Unavailable [phone] Regina Contreras RN Unavailable [phone] Merlin Biggs MD Primary Care Provider [phone] Charly Biggs MD Unavailable [phone] Encounter Details Date Type Department Care Team (Late st Contact Info) Description 04/26/2020 Orders Only [facility] Health Information Management [address] [place] [address] Scanning, Provider Social History Tobacco Use Types Packs/Day Years Used Date Smoking Tobacco: Never Smokeless Tobacco: Never Alcohol Use Standard Drinks/Week Comments No 0 (1 standard drink = 0.6 oz pur e alcohol) Comments No Sex and Gender Information Value Date Recorded Sex Assigned at Not on file Legal Sex 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 SENIOR PROJECT MANAGER Gender Identity Not on file Sexual Orientation Not on file documented as of this encounter Plan of Treatment Not on file documented as of this encounter Procedures Procedure Name Priority Date/Time Associated Diagnosis Comments SCAN - LABS 04/26/2020 11:31 AM CDT documented in this encounter Results * SCAN - LABS (04/26/2020 11:31 AM CDT) us Provider Scanning Final Result documented in this encounter Visit Diagnoses Not on filedocumented in this encounter Care Teams Well Drill Operator Relationship Specialty Start Date End Date Merlin Biggs MD [address] [place] [address] PCP - General Internal Medicine 02/20/20 11/02/22 Gregg Peace, DEREK Label Rewinder Transplant 01/26/1907/04 Regina Contreras RN Label Rewinder 12/07/19 Charly Biggs MD [address] [address] Consulting Physician Internal Medicine 03/28/20 documented as of this encounter
--- OUTSIDE RECORDS SUMMARY | 2024-06-27 01:54 | XMS_ITS | Encounter Summary ---
Author Organization [facility] Address [address] [place] [address] Care Team Providers Care Retail Bakery Manager Name Role Phone Gregg Peace RN Unavailable [phone] Regina Contreras RN Unavailable [phone] Merlin Bgigs MD Primary Care Provider [phone] Charly Biggs MD Unavailable [phone] Encounter Details Date Type Department Care Team (Late st Contact Info) Description 08/08/2020 Orders Only [facility] Health Information Management [address] [place] [address] Scanning, Provider Social History Tobacco Use Types Packs/Day Years Used Date Smoking Tobacco: Never Smokeless Tobacco: Never Alcohol Use Standard Drinks/Week Comments No 0 (1 standard drink = 0.6 oz pur e alcohol) Comments No Sex and Gender Information Value Date Recorded Sex Assigned at Not on file Legal Sex 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 HOT BREAD BAKER Gender Identity Not on file Sexual Orientation Not on file documented as of this encounter Plan of Treatment Not on file documented as of this encounter Procedures Procedure Name Priority Date/Time Associated Diagnosis Comments SCAN - LABS 08/08/2020 8:39 AM HOT BREAD BAKER documented in this encounter Results * SCAN - LABS (08/08/2020 8:39 AM HOT BREAD BAKER) us Provider Scanning Final Result documented in this encounter Visit Diagnoses Not on filedocumented in this encounter Care Teams Retail Bakery Manager Relationship Specialty Start Date End Date Merlin Biggs MD [address] [place] [address] PCP - General Internal Medicine 02/20/20 11/02/22 Gregg Peace, DEREK Venetian Blind Mechanic Transplant 01/26/1907/04 Regina Contreras RN Venetian Blind Mechanic 12/07/19 Charly Biggs MD [address] [address] Consulting Physician Internal Medicine 03/28/20 documented as of this encounter
--- OUTSIDE RECORDS SUMMARY | 2024-06-27 01:54 | XMS_ITS | Encounter Summary ---
Author Organization [facility] Address [address] [place] [address] Care Team Providers Care Intervention Manager Name Role Phone Gregg Peace RN Unavailable [phone] Regina Contreras RN Unavailable [phone] Merlin Biggs MD Primary Care Provider [phone] Charly Biggs MD Unavailable [phone] Encounter Details Date Type Department Care Team (Late st Contact Info) Description 07/03/2020 Orders Only [facility] Health Information Management [address] [place] [address] Scanning, Provider Social History Tobacco Use Types Packs/Day Years Used Date Smoking Tobacco: Never Smokeless Tobacco: Never Alcohol Use Standard Drinks/Week Comments No 0 (1 standard drink = 0.6 oz pur e alcohol) Comments No Sex and Gender Information Value Date Recorded Sex Assigned at Not on file Legal Sex 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 SAMPLE STITCHER Gender Identity Not on file Sexual Orientation Not on file documented as of this encounter Plan of Treatment Not on file documented as of this encounter Procedures Procedure Name Priority Date/Time Associated Diagnosis Comments SCAN - LABS 07/03/2020 3:26 PM SAMPLE STITCHER documented in this encounter Results * SCAN - LABS (07/03/2020 3:26 PM SAMPLE STITCHER) us Provider Scanning Final Result documented in this encounter Visit Diagnoses Not on filedocumented in this encounter Care Teams Intervention Manager Relationship Specialty Start Date End Date Merlin Biggs MD [address] [place] [address] PCP - General Internal Medicine 02/20/20 11/02/22 Gregg Peace, DEREK Support Merchandiser Transplant 01/26/1907/04 Regina Contreras RN Support Merchandiser 12/07/19 Charly Biggs MD [address] [address] Consulting Physician Internal Medicine 03/28/20 documented as of this encounter
--- OUTSIDE RECORDS SUMMARY | 2024-06-27 01:54 | XMS_ITS | Encounter Summary ---
Author Organization [facility] Address [address] [place] [address] Care Team Providers Care Traffic Officer Name Role Phone Gregg Peace RN Unavailable [phone] Regina Contreras RN Unavailable [phone] Merlin Biggs MD Primary Care Provider [phone] Charly Biggs MD Unavailable [phone] Encounter Details Date Type Department Care Team (Late st Contact Info) Description 04/13/[address] [facility] Health Information Management [address] [place] [address] Scanning, Provider Social History Tobacco Use Types Packs/Day Years Used Date Smoking Tobacco: Never Smokeless Tobacco: Never Alcohol Use Standard Drinks/Week Comments No 0 (1 standard drink = 0.6 oz pur e alcohol) Comments No Sex and Gender Information Value Date Recorded Sex Assigned at Not on file Legal Sex 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 TREE DOCTOR Gender Identity Not on file Sexual Orientation Not on file documented as of this encounter Plan of Treatment Not on file documented as of this encounter Procedures Procedure Name Priority Date/Time Associated Diagnosis Comments SCAN - LABS 04/13/2020 12:22 PM CDT documented in this encounter Results * SCAN - LABS (04/13/2020 12:22 PM CDT) us Provider Scanning Final Result documented in this encounter Visit Diagnoses Not on filedocumented in this encounter Care Teams Traffic Officer Relationship Specialty Start Date End Date Merlin Biggs MD [address] [place] [address] PCP - General Internal Medicine 02/20/20 11/02/22 Gregg Peace, DEREK Pitching Coach Transplant 01/26/1907/04 Regina Contreras RN Pitching Coach 12/07/19 Charly Biggs MD [address] [address] Consulting Physician Internal Medicine 03/28/20 documented as of this encounter
--- OUTSIDE RECORDS SUMMARY | 2024-06-27 01:54 | XMS_ITS | Encounter Summary ---
Author Organization [facility] Address [address] [place] [address] Care Team Providers Care Meat Processor Name Role Phone Gregg Peace RN Unavailable [phone] Regina Contreras RN Unavailable [phone] Merlin Biggs MD Primary Care Provider [phone] Charly Biggs MD Unavailable [phone] Encounter Details Date Type Department Care Team (Late st Contact Info) Description 08/04/2020 Orders Only [facility] Health Information Management [address] [place] [address] Scanning, Provider Social History Tobacco Use Types Packs/Day Years Used Date Smoking Tobacco: Never Smokeless Tobacco: Never Alcohol Use Standard Drinks/Week Comments No 0 (1 standard drink = 0.6 oz pur e alcohol) Comments No Sex and Gender Information Value Date Recorded Sex Assigned at Not on file Legal Sex 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 NURSING HOME PHYSICIAN Gender Identity Not on file Sexual Orientation Not on file documented as of this encounter Plan of Treatment Not on file documented as of this encounter Procedures Procedure Name Priority Date/Time Associated Diagnosis Comments SCAN - LABS 08/04/2020 3:48 PM NURSING HOME PHYSICIAN SCAN - LABS 08/04/2020 12:01 PM NURSING HOME PHYSICIAN documented in this encounter Results * SCAN - LABS (08/04/2020 3:48 PM NURSING HOME PHYSICIAN) us Provider Scanning Final Result * SCAN - LABS (08/04/2020 12:01 PM NURSING HOME PHYSICIAN) us Provider Scanning Final Result documented in this encounter Visit Diagnoses Not on filedocumented in this encounter Care Teams Meat Processor Relationship Specialty Start Date End Date Merlin Biggs MD [address] [place] [address] PCP - General Internal Medicine 02/20/20 11/02/22 Gregg Peace RN Driver Recruiter Transplant 01/26/1907/04 Regina Contreras, DEREK Driver Recruiter 12/07/19 Charly Biggs MD [address] [address] Consulting Physician Internal Medicine 03/28/20 documented as of this encounter
--- OUTSIDE RECORDS SUMMARY | 2024-06-27 01:54 | XMS_ITS | Encounter Summary ---
Author Organization [facility] Address [address] [place] [address] Care Team Providers Care Maintenance And Engineering Manager Name Role Phone Gregg Peace RN Unavailable [phone] Regina Contreras RN Unavailable [phone] Merlin Biggs MD Primary Care Provider [phone] Charly Biggs MD Unavailable [phone] Encounter Details Date Type Department Care Team (Late st Contact Info) Description 04/23/2020 Orders Only [facility] Health Information Management [address] [place] [address] Scanning, Provider Social History Tobacco Use Types Packs/Day Years Used Date Smoking Tobacco: Never Smokeless Tobacco: Never Alcohol Use Standard Drinks/Week Comments No 0 (1 standard drink = 0.6 oz pur e alcohol) Comments No Sex and Gender Information Value Date Recorded Sex Assigned at Not on file Legal Sex 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 INCOME TAX ANALYST Gender Identity Not on file Sexual Orientation Not on file documented as of this encounter Plan of Treatment Not on file documented as of this encounter Procedures Procedure Name Priority Date/Time Associated Diagnosis Comments SCAN - LABS 04/23/2020 12:33 PM CDT documented in this encounter Results * SCAN - LABS (04/23/2020 12:33 PM CDT) us Provider Scanning Final Result documented in this encounter Visit Diagnoses Not on filedocumented in this encounter Care Teams Maintenance And Engineering Manager Relationship Specialty Start Date End Date Merlin Biggs MD [address] [place] [address] PCP - General Internal Medicine 02/20/20 11/02/22 Gregg Peace, DEREK Seafood Service Team Member Transplant 01/26/1907/04 Regina Contreras RN Seafood Service Team Member 12/07/19 Charly Biggs MD [address] [address] Consulting Physician Internal Medicine 03/28/20 documented as of this encounter
--- OUTSIDE RECORDS SUMMARY | 2024-06-27 01:54 | XMS_ITS | Encounter Summary ---
Author Organization [facility] Address [address] [place] [address] Care Team Providers Care Market Consultant Name Role Phone Gregg Peace RN Unavailable [phone] Regina Contreras RN Unavailable [phone] Merlin Biggs MD Primary Care Provider [phone] Charly Biggs MD Unavailable [phone] Encounter Details Date Type Department Care Team (Late st Contact Info) Description 03/30/2020 Telephone [facility] Transplant Kidney [address] [facility] [phone] [place] [address] Dianne Howard Social History Tobacco Use Types Packs/Day Years Used Date Smoking Tobacco: Never Smokeless Tobacco: Never Alcohol Use Standard Drinks/Week Comments No 0 (1 standard drink = 0.6 oz pur e alcohol) Comments No Sex and Gender Information Value Date Recorded Sex Assigned at Not on file 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 Unsure if pt was changed in hospital to 0.5 BID of FK. Pt states she has been taking 1mg BID forever. Note from 2019 has 1mg BID. Asked them to check FKL aftergiving 1mg and check FKL on Thursday. States they will. Looks like FKL has been appropriate and not too elevated. Gave my direct number to call me after FKL has resulted. States they will. documented in this encounter Plan of Treatment Not on file documented as of this encounter Visit Diagnoses Not on filedocumented in this encounter Care Teams Market Consultant Relationship Specialty Start Date End Date Merlin Biggs MD [address] [place] [address] PCP - General Internal Medicine 02/20/20 11/02/22 Gregg Peace RN Senior Care Specialist Transplant 01/26/1907/04 Regina Contreras RN Senior Care Specialist 12/07/19 Charly Biggs MD [address] [address] Consulting Physician Internal Medicine 03/28/20 documented as of this encounter
--- OUTSIDE RECORDS SUMMARY | 2024-06-27 01:54 | XMS_ITS | Encounter Summary ---
Author Organization [facility] Address [address] [place] [address] Phone Care Team Providers Care Casework Manager Name Role Phone Gregg Peace RN Unavailable [phone] Regina Contreras RN Unavailable [phone] Merlin Biggs MD Primary Care Provider [phone] Charly Biggs MD Unavailable [phone] Reason for Visit * Reason Onset Date Comments Appt Question 04/13/2020 Encounter Details Date Type Department Care Team (Late st Contact Info) Description 04/13/2020 Telephone [facility] Orthopaedic [facility] Building [address] [address] Js Barahona MD [address] [place] [address] Appt Question Social History Tobacco Use Types Packs/Day Years Used Date Smoking Tobacco: Never Smokeless Tobacco: Never Alcohol Use Standard Drinks/Week Comments No 0 (1 standard drink = 0.6 oz pur e alcohol) Comments No Sex and Gender Information Value Date Recorded Sex Assigned at Not on file 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 He had lvm asking if his daughter and soninlaw could also accompany them to Magda's appt next week. I called and spoke with the daughter, as Luis E and Magda were not available. She said her is a physician. She and he would like to attend the appt to see what Dr. Barahona says. I unfortunately explained that due to the COVID guidelines, only one visitor can accompany the patient in the building. She understands but is upset as she wants her to be there. I explained that he can come but then the others must stay out in the car. She asked if at the appointment that they call her and have him on the phone to listen to the appt? I told her that that may be possible. We would have to ask Dr. Barahona's permission at the appointment. She is fine with this plan. documented in this encounter Plan of Treatment Not on file documented as of this encounter Visit Diagnoses Not on filedocumented in this encounter Care Teams Casework Manager Relationship Specialty Start Date End Date Merlin Biggs MD [address] [place] [address] PCP - General Internal Medicine 02/20/20 11/02/22 Gregg Peace RN Engraver Hand Soft Metals Transplant 01/26/1907/04 Regina Contreras RN Engraver Hand Soft Metals 12/07/19 Charly Biggs MD [address] [address] Consulting Physician Internal Medicine 03/28/20 documented as of this encounter
--- OUTSIDE RECORDS SUMMARY | 2024-06-27 01:54 | XMS_ITS | Encounter Summary ---
Author Organization [facility] Address [address] [place] [address] Care Team Providers Care Lens Generating Machine Tender Name Role Phone Gregg Peace RN Unavailable [phone] Regina Contreras RN Unavailable [phone] Merlin Biggs MD Primary Care Provider [phone] Charly Biggs MD Unavailable [phone] Reason for Referral * Diagnostic Imaging (Routine) - Closed Specialty Diagnoses / Procedures Referred By Contac t Referred To Contact Diagnoses Closed traumatic minimally displaced fracture of second cervical vertebra, initial encounter (HCC) Procedures XR Spine Cervical 2 or 3 Views Js Barahona MD Phone: tel: fax: [facility] [id number] [place] [phone] Referral ID Status Reason Start Date Expiration Date Visits Re quested Visits Authorized [id number] Closed 04/09/2020 05/09/2021 1 1 Reason for Visit * Diagnostic Imaging (Routine) - Closed Specialty Diagnoses / Procedures Referred By Contac t Referred To Contact Diagnoses Closed traumatic minimally displaced fracture of second cervical vertebra, initial encounter (HCC) Procedures XR Spine Cervical 2 or 3 Views Js Barahona MD Phone: tel: fax: [facility] [address] [phone] Referral ID Status Reason Start Date Expiration Date Visits Re quested Visits Authorized [id number] Closed 04/09/2020 05/09/2021 1 1 Encounter Details Date Type Department Care Team (Latest Contact Info) Description 04/18/2020 9:45 AM CDT - 04/18/2020 11:59 PM CDT Hospital Encounter [id number] Radiology [address] [facility] [address] [place] [address] Js Barahona MD [address] [facility] [address] [place] [address] Closed traumatic minimally displaced fracture of second cervical vertebra, initial encounter (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 Gender Identity Not on file Sexual [...] Take 1 tablet (5 mg) by mouth third rail installer before breakfast 30 tablet 11 06/16/2019 0 [...] 02/18/2018 2 levothyroxine (SYNTHROID) 100 mcg tablet TAKE 1 TABLET(100 MCG) BY MOUTH HAIR SAMPLE MATCHER AND BEFORE BREAKFAST 30 tablet 11 07/11/2019 1 lisinopriL (PRINIVIL,ZESTRIL ) 10 mg tabletIndications :hypertension Take 1 tablet (10 mg total) by mouth third rail installer before breakfast 90 tablet 3 01/09/2020 1 metoprolol tartrate (LOPRESSOR) 75 mg tablet immediate release tablet Take 1 tablet (75 mg total) by mouth 2 (two) times a day 60 tablet 03/28/2020 0 pravastatin (PRAVACHOL) 20 mg tablet Take 1 tablet (20 mg total) by mouth nightly 12/16/2016 4 sodium bicarbonate 650 mg tablet Take by [...] Date/Time Associated Diagnosis Comments XR SPINE CERVICAL 2 OR 3 VIEWS Schedule Routine, Read Routine (OP Routine) 04/18/2020 10:22 AM CDT Closed traumatic minimally displaced fracture of second cervical vertebra, initial encounter ([facility]) documented in this encounter Results * XR [...] signed by: Juan F Lees MD, PHD [facility] Gerber Barahona MD IMG XR PROCEDURES Final Re sult documented in this encounter Visit Diagnoses Diagnosis Closed traumatic minimally displaced fracture of second cervical vertebra, initial encounter (HCC) documented in this encounter Care Teams Lens Generating Machine Tender Relationship Specialty Start Date End Date Merlin Biggs MD [address] [place] [address] PCP - General Internal Medicine 02/20/20 11/02/22 Gregg Peace RN Fig Washer Transplant 01/26/1907/04 Regina Contreras RN Fig Washer 12/07/19 Charly Biggs MD [address] [address] Consulting Physician Internal Medicine 03/28/20 documented as of this encounter
--- OUTSIDE RECORDS SUMMARY | 2024-06-27 01:54 | XMS_ITS | Encounter Summary ---
Author Organization [facility] Address [address] [place] [address] Care Team Providers Care Armhole Sewer Name Role Phone Gregg Peace RN Unavailable [phone] Regina Contreras RN Unavailable [phone] Merlin Biggs MD Primary Care Provider [phone] Charly Biggs MD Unavailable [phone] Encounter Details Date Type Department Care Team (Latest Contact Info) Description 06/19/2020 11:16 AM TECHNICAL DATA ANALYST - 06/19/2020 11:48 AM TECHNICAL DATA ANALYST Hospital Encounter [facility]iology [facility] [address] [place] [address] Discharge Disposition: Discharge to home or self care Social History Tobacco Use Types Packs/Day Years Used Date Smoking Tobacco: Never Smokeless Tobacco: Never Alcohol Use Standard Drinks/Week Comments No 0 (1 standard drink = 0.6 oz pur e alcohol) Comments No Sex and Gender Information Value Date Recorded Sex Assigned at Not on file Legal Sex 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 TECHNICAL DATA ANALYST Gender Identity Not on file Sexual [...] tablet TAKE 1 TABLET(100 MCG) BY MOUTH INSTRUMENT MAKER APPRENTICE AND BEFORE BREAKFAST 30 tablet 11 07/11/2019 1 lisinopriL (PRINIVIL,ZESTRIL ) 10 mg tabletIndications :hypertension Take 1 tablet (10 mg total) by mouth deck specialist before breakfast 90 tablet 3 01/09/2020 1 metoprolol tartrate (LOPRESSOR) 75 mg tablet immediate release tablet Take 1 tablet (75 mg total) by mouth 2 (two) times a day 180 tablet 3 05/22/2020 2 pravastatin (PRAVACHOL) 20 mg tablet Take 1 [...] Comments NEURO CT MR OUTSIDE REFERENCE Routine 06/19/2020 11:16 AM TECHNICAL DATA ANALYST Diagnosis unknown documented in this encounter Results * Neuro CT MR Outside Reference (06/19/2020 11:16 AM TECHNICAL DATA ANALYST) Impressions [facility] - 06/19/2020 11:16 AM TECHNICAL DATA ANALYST These images are for Reference purposes only and have not been reviewed by [facility]. ??There will be no report generated by a [facility]iologist. Narrative [facility] - 06/19/2020 11:16 AM TECHNICAL DATA ANALYST EXAMINATION: ??Images For Reference Purposes Only us Marilu Rosenberg RESEARCH RECRUITER IMG CT PROCEDURES Final Res ult [facility] documented in this encounter Visit Diagnoses Not on filedocumented in this encounter Care Teams Armhole Sewer Relationship Specialty Start Date End Date Merlin Biggs MD [address] [place] [address] PCP - General Internal Medicine 02/20/20 11/02/22 Gregg Peace RN Paper Grader Transplant 01/26/1907/04 Regina Contreras, RN Paper Grader 12/07/19 Charly Biggs MD [address] [address] Consulting Physician Internal Medicine 03/28/20 documented as of this encounter
--- OUTSIDE RECORDS SUMMARY | 2024-06-27 01:54 | XMS_ITS | Encounter Summary ---
Author Organization [facility] Address [address] [place] [address] Phone Care Team Providers Care Flight Test Shop Mechanic Name Role Phone Gregg Peace RN Unavailable [phone] Regina Contreras RN Unavailable [phone] Merlin Biggs MD Primary Care Provider [phone] Charly Biggs MD Unavailable [phone] Reason for Referral * (Routine) - Closed Specialty Diagnoses / Procedures Referred By Contac t Referred To Contact Diagnoses Hordeolum internum of left lower eyelid Procedures External Photography - OS - Left Eye Paul Bradley, RIANNA [address] [facility] [place] [address] Phone: tel: fax: [facility] (All Locations) Referral ID Status Reason Start Date Expiration Date Visits Re quested Visits Authorized [id number] Closed 07/04/2020 08/03/2021 1 1 ONAL RETAIL SALES MANAGER Encounter Details Date Type Department Care Team (Late st Contact Info) Description 07/04/2020 11:00 AM REGIONAL RETAIL SALES MANAGER Office Visit [facility] Ophthalmology [address] [facility] 2nd Floor [address] [place] [address] Paul Bradley, RIANNA [address] [facility] [address] [place] [address] Hordeolum internum of left lower eyelid (Primary Dx) Social History Tobacco Use Types Packs/Day Years Used Date Smoking Tobacco: Never Smokeless Tobacco: Never Alcohol Use Standard Drinks/Week Comments No 0 (1 standard drink = 0.6 oz pur e alcohol) Comments No Sex and Gender Information Value Date Recorded Sex Assigned at Not on file Legal Sex 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 REGIONAL RETAIL SALES MANAGER Gender Identity Not on file Sexual Orientation Not on file documented as of this encounter Ordered Prescriptions Prescription Sig Dispense Quantity Refills Last Filled Start Date End Date neomycin-polymyxin B-dexAMETHasone (Maxitrol) 3.5 mg/g-10,000 unit/g-0.1 % ointment Apply a thin film to left lower eyelid twice daily. 1 Tube 07/04/2020 06/06/2021 documented in this encounter Progress Notes * Paul Bradley, RIANNA - 07/04/2020 11:00 AM CST Assessment/Plan Diagnoses and all orders for this visit: Hordeolum internum of left lower eyelid (Primary) Assessment & Plan: Start hot compresses bid OS. Start maxitrol pietro to eyelid bid x 2 weeks then stop. Call with any persistence at 2 weeks or any worsening. Keep annual f/u with [facility]. Other orders - neomycin-polymyxin B-dexAMETHasone (Maxitrol) 3.5 mg/g-10,000 unit/g-0.1 % ointment; Apply a thinfilm to left lower eyelid twice daily. ONAL RETAIL SALES MANAGER documented in this encounter Miscellaneous Notes * Assessment & Plan Note - Paul Bradley OD - 07/04/2020 12:09 PM REGIONAL RETAIL SALES MANAGER Associated Problem(s): Hordeolum internum of left lower eyelid Start hot compresses bid OS. Start maxitrol pietro to eyelid bid x 2 weeks then stop. Call with any persistence at 2 weeks or any worsening. Keep annual f/u with [facility]. ONAL RETAIL SALES MANAGER documented in this encounter Plan of Treatment Not on file documented as of this encounter Procedures Procedure Name Priority Date/Time Associated Diagnosis Comments EXTERNAL PHOTOGRAPHY - OS - LEFT EYE Routine 07/04/2020 12:11 PM REGIONAL RETAIL SALES MANAGER Hordeolum internum of left lower eyelid documented in this encounter Results * External Photography - OS - Left Eye (07/04/2020 12:11 PM REGIONAL RETAIL SALES MANAGER) Anatomical Region Laterality Modality Head Other Narrative 07/04/2020 12:11 PM REGIONAL RETAIL SALES MANAGER Findings include eyelid lesion/mass. Notes Paul Bradley OD OPHTH PHOTOGRAPHY Final Res ult documented in this encounter Visit Diagnoses Diagnosis Hordeolum internum of left lower eyelid- Primary documented in this encounter Eye Exam Visual Acuity (Snellen - Linear) Right eye Left eye Dist cc 20/20 20/20 -2 Correction: Glasses Tonometry (Applanation, 11:39 AM) Right eye Left eye Pressure [address] Pupils Dark Light Shape APD Right eye 4 2 Round None Left eye 4 2 Round None Visual Hills (Counting fingers) Right eye Left eye Full Full Extraocular Movement Right eye Left eye Full , Ortho Full, Ortho Neuro/Psych Oriented x3: Yes Mood/Affect: Normal External Exam Right eye Left eye External Normal Normal Slit Lamp Exam Right eye Left eye Lids/Lashes Dermatochalasis - up per lid w/hooding Dermatochalasis - upper lid w/hooding, Hordeolum - lower lid Conjunctiva/Sclera White and quiet White and lisandro et Cornea Clear Clear Anterior Chamber Shallow, Quiet Deep and quiet Iris Round and reactive Round and billy ctive Lens Posterior chamber in traocular lens, no Posterior capsular opacification Posterior chamber intraocular lens Care Teams Flight Test Shop Mechanic Relationship Specialty Start Date End Date Merlin Biggs MD [address] [place] [address] PCP - General Internal Medicine 02/20/20 11/02/22 Gregg Peace RN Research Chemical Engineer Transplant 01/26/1907/04 Regina Contreras, DEREK Research Chemical Engineer 12/07/19 Charly Biggs MD [address] [address] Consulting Physician Internal Medicine 03/28/20 documented as of this encounter
--- OUTSIDE RECORDS SUMMARY | 2024-06-27 01:54 | XMS_ITS | Encounter Summary ---
Author Organization [facility] Address [address] [place] [address] Care Team Providers Care Automobile Mechanic Motor Name Role Phone Gregg Peace RN Unavailable [phone] Regina Contreras RN Unavailable [phone] Merlin Biggs MD Primary Care Provider [phone] Charly Biggs MD Unavailable [phone] Reason for Referral * Diagnostic Imaging (Routine) - Closed Specialty Diagnoses / Procedures Referred By Contac t Referred To Contact Diagnoses Closed traumatic minimally displaced fracture of second cervical vertebra, initial encounter (HCC) Procedures XR Spine Cervical 2 or 3 Views Marilu Rosenberg CNS Phone: tel: fax: [address] [address] Referral ID Status Reason Start Date Expiration Date Visits Re quested Visits Authorized [id number] Closed 06/15/2020 07/15/2021 1 1 [facility] Reason for Visit * Diagnostic Imaging (Routine) - Closed Specialty Diagnoses / Procedures Referred By Miac mitch Referred To Contact Diagnoses Closed traumatic minimally displaced fracture of second cervical vertebra, initial encounter (HCC) Procedures XR Spine Cervical 2 or 3 Views Marilu Rosenberg CNS Phone: tel: fax: [facility] [address] [place] [address] Referral ID Status Reason Start Date Expiration Date Visits Re quested Visits Authorized [id number] Closed 06/15/2020 07/15/2021 1 1 Encounter Details Date Type Department Care Team (Latest Contact Info) Description 06/19/2020 10:15 AM TYPE PHOTOGRAPHY SUPERVISOR - 06/19/2020 11:15 AM [facility] Hospital Encounter [id number] Radiology [address] [facility] [address] [place] [address] Js Barahona MD [address] [facility] [address] [place], [place] [id number] Marilu Rosenberg, [facility] [address] [facility] [address] [place] [address] Closed traumatic minimally displaced fracture of second cervical vertebra, initial encounter ([facility]) Discharge Disposition: Discharge to home or self care Social History Tobacco Use Types Packs/Day Years Used Date Smoking Tobacco: Never Smokeless Tobacco: Never Alcohol Use Standard Drinks/Week Comments No 0 (1 standard drink = 0.6 oz pur e alcohol) Comments No Sex and Gender Information Value Date Recorded Sex Assigned at Not on file Legal Sex 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 [facility] Gender Identity Not on file Sexual [...] tablet TAKE 1 TABLET(100 MCG) BY MOUTH ENVIRONMENTAL COMPLIANCE SPECIALIST AND BEFORE BREAKFAST 30 tablet 11 07/11/2019 1 lisinopriL (PRINIVIL,ZESTRIL ) 10 mg tabletIndications :hypertension Take 1 tablet (10 mg total) by mouth early years teacher before breakfast 90 tablet 3 01/09/2020 1 [...] VIEWS Schedule Routine, Read Routine (OP Routine) 06/19/2020 11:00 AM TYPE PHOTOGRAPHY SUPERVISOR Closed traumatic minimally displaced fracture of second cervical vertebra, initial encounter ([facility]) documented in this encounter Results * XR Spine Cervical 2 or 3 Views (06/19/2020 11:00 AM TYPE PHOTOGRAPHY SUPERVISOR) Anatomical Region Laterality Modality Spine N/A Computed Radiogr aphy 06/19/2020 11:0 9 AM TYPE PHOTOGRAPHY SUPERVISOR Impressions 06/19/2020 11:09 AM TYPE PHOTOGRAPHY SUPERVISOR 1. ??Unchanged healing nondisplaced dens fracture. 2. 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 Electronically signed by: Lj Pina M.D. Narrative 06/19/2020 11:09 AM TYPE PHOTOGRAPHY SUPERVISOR XR SPINE CERVICAL 2 OR 3 VIEWS [...] signed by: Lj Pina M.D. Marilu Rosenberg DIRECTOR OF TEACHER EDUCATION IMG XR PROCEDURES Final Res ult documented in this encounter Visit Diagnoses Diagnosis Closed traumatic minimally displaced fracture of second cervical vertebra, initial encounter (HCC) documented in this encounter Care Teams Automobile Mechanic Motor Relationship Specialty Start Date End Date Merlin Biggs MD [address] [place] [address] PCP - General Internal Medicine 02/20/20 11/02/22 Gregg Peace RN Senior Game Developer Transplant 01/26/1907/04 Regina Contreras RN Senior Game Developer 12/07/19 Charly Biggs MD [address] [address] Consulting Physician Internal Medicine 03/28/20 documented as of this encounter
--- OUTSIDE RECORDS SUMMARY | 2024-06-27 01:54 | XMS_ITS | Encounter Summary ---
Author Organization [facility] Address [address] [place] [address] Care Team Providers Care Web Assistant Name Role Phone Gregg Peace RN Unavailable [phone] Regina Contreras RN Unavailable [phone] Merlin Biggs MD Primary Care Provider [phone] Charly Biggs MD Unavailable [phone] Reason for Referral * Diagnostic Imaging (Routine) - Closed Specialty Diagnoses / Procedures Referred By Contac t Referred To Contact Diagnoses Closed traumatic minimally displaced fracture of second cervical vertebra, initial encounter (HCC) Procedures XR Spine Cervical 2 or 3 Views Marilu Rosenberg CNS Phone: tel: fax: [address] [address] Referral ID Status Reason Start Date Expiration Date Visits Re quested Visits Authorized [id number] Closed 06/19/2020 07/19/2021 1 1 SPRING WINDER Reason for Visit * Diagnostic Imaging (Routine) - Closed Specialty Diagnoses / Procedures Referred By Jairo meyer Referred To Contact Diagnoses Closed traumatic minimally displaced fracture of second cervical vertebra, initial encounter (HCC) Procedures XR Spine Cervical 2 or 3 Views Marilu Rosenberg CNS Phone: tel: fax: [facility] [address] [address] [phone] Referral ID Status Reason Start Date Expiration Date Visits Re quested Visits Authorized [id number] Closed 06/19/2020 07/19/2021 1 1 Encounter Details Date Type Department Care Team (Latest Contact Info) Description 06/19/2020 11:49 AM HAIR SPRING WINDER - 06/19/2020 11:59 PM HAIR SPRING WINDER Hospital Encounter [id number] Radiology [address] [facility] [address] [place] [id number] Js Barahona MD [address] [facility] [address] [place] [address] Marilu Rosenberg [facility] [address] [facility] [address] [place] [address] Closed traumatic minimally displaced fracture of second cervical vertebra, initial encounter ([facility]) Discharge Disposition: Discharge to home or self care Social History Tobacco Use Types Packs/Day Years Used Date Smoking Tobacco: Never Smokeless Tobacco: Never Alcohol Use Standard Drinks/Week Comments No 0 (1 standard drink = 0.6 oz pur e alcohol) Comments No Sex and Gender Information Value Date Recorded Sex Assigned at Not on file Legal Sex 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 HAIR SPRING WINDER Gender Identity Not on file Sexual Orientation [...] tablet TAKE 1 TABLET(100 MCG) BY MOUTH ELECTRONIC SCALE ASSEMBLER AND TESTER AND BEFORE BREAKFAST 30 tablet 11 07/11/2019 1 lisinopriL (PRINIVIL,ZESTRIL ) 10 mg tabletIndications :hypertension Take 1 tablet (10 mg total) by mouth neon tube bender before breakfast 90 tablet 3 01/09/2020 1 [...] Schedule Routine, Read Routine (OP Routine) 06/19/2020 11:58 AM HAIR SPRING WINDER Closed traumatic minimally displaced fracture of second cervical vertebra, initial encounter ([facility]) documented in this encounter Results * XR Spine Cervical 2 or 3 Views (06/19/2020 11:58 AM HAIR SPRING WINDER) Anatomical Region Laterality Modality Spine N/A Computed Radiogr aphy 06/19/2020 12:1 7 PM HAIR SPRING WINDER Impressions 06/19/2020 12:17 PM HAIR SPRING WINDER Healing nondisplaced dens fracture. Electronically signed by: George Vicente M.D. Narrative 06/19/2020 12:17 PM HAIR SPRING WINDER EXAMINATION: XR SPINE CERVICAL 2 OR 3 [...] signed by: George Vicente M.D. Marilu Rosenberg SILVER CLEANER IMG XR PROCEDURES Final Res ult documented in this encounter Visit Diagnoses Diagnosis Closed traumatic minimally displaced fracture of second cervical vertebra, initial encounter (HCC) documented in this encounter Care Teams Web Assistant Relationship Specialty Start Date End Date Merlin Biggs MD [address] [place] [address] PCP - General Internal Medicine 02/20/20 11/02/22 Gregg Peace RN Manager Completions Transplant 01/26/1907/04 Regina Contreras RN Manager Completions 12/07/19 Charly Biggs MD [address] [address] Consulting Physician Internal Medicine 03/28/20 documented as of this encounter
--- OUTSIDE RECORDS SUMMARY | 2024-06-27 01:54 | XMS_ITS | Encounter Summary ---
Author Organization [facility] Address [address] [place] [address] Care Team Providers Care Research Chef Name Role Phone Gregg Peace RN Unavailable [phone] Regina Contreras RN Unavailable [phone] Merlin Biggs MD Primary Care Provider [phone] Charly Biggs MD Unavailable [phone] Encounter Details Date Type Department Care Team (Late st Contact Info) Description 05/24/2020 Telephone [facility] Transplant Kidney [address] [address] Mailstop [phone] [place] [address] Regina Contreras, DEREK Social History Tobacco Use Types Packs/Day Years Used Date Smoking Tobacco: Never Smokeless Tobacco: Never Alcohol Use Standard Drinks/Week Comments No 0 (1 standard drink = 0.6 oz pur e alcohol) Comments No Sex and Gender Information Value Date Recorded Sex Assigned at Not on file Legal Sex 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 SECURITY GUARD SUPERVISOR Gender Identity Not on file Sexual Orientation Not on file documented as of this encounter Miscellaneous Notes * Telephone Encounter - Paola Guillory - 05/24/2020 3:40 PM CST Standing orders for every 3 months sent to [facility] RITY GUARD SUPERVISOR * Telephone Encounter - Regina Contreras RN - 05/24/2020 10:59 AM SECURITY GUARD SUPERVISOR Rec'd SM from [place] stating pt can to go 3 month labs. Please update S/Os thank you! RITY GUARD SUPERVISOR documented in this encounter Plan of Treatment Not on file documented as of this encounter Visit Diagnoses Not on filedocumented in this encounter Care Teams Research Chef Relationship Specialty Start Date End Date Merlin Biggs MD [address] [place] [address] PCP - General Internal Medicine 02/20/20 11/02/22 Gregg Peace RN Bullet Swaging Machine Adjuster Transplant 01/26/1907/04 Regina Contreras RN Bullet Swaging Machine Adjuster 12/07/19 Charly Biggs MD [address] [address] Consulting Physician Internal Medicine 03/28/20 documented as of this encounter
--- OUTSIDE RECORDS SUMMARY | 2024-06-27 01:54 | XMS_ITS | Encounter Summary ---
Author Organization [facility] Address [address] [place] [address] Phone Care Team Providers Care Ocean Fishing Guide Name Role Phone Gregg Peace RN Unavailable [phone] Regina Contreras RN Unavailable [phone] Merlin Biggs MD Primary Care Provider [phone] Charly Biggs MD Unavailable [phone] Encounter Details Date Type Department Care Team (Late st Contact Info) Description 04/03/2020 Orders Only [facility] Orthopaedic Surgery [address] [facility] Advanced Medicine [address]th [place] [address] [place] [address] Js Barahona MD [address] [facility] [address] [place] [address] Closed traumatic minimally displaced fracture of second cervical vertebra, initial encounter ([facility]) Social History Tobacco Use Types Packs/Day Years Used Date Smoking Tobacco: Never Smokeless Tobacco: Never Alcohol Use Standard Drinks/Week Comments No 0 (1 standard drink = 0.6 oz pur e alcohol) Comments No Sex and Gender Information Value Date Recorded Sex Assigned at Not on file Legal Sex 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 SANIPRACTIC PHYSICIAN Gender Identity Not on file Sexual Orientation Not on file documented as of this encounter Plan of Treatment Not on file documented as of this encounter Procedures Procedure Name Priority Date/Time Associated Diagnosis Comments CT CERVICAL SPINE WO CONTRAST Schedule Routine, Read Routine (OP Routine) 04/03/2020 11:59 AM CDT Closed traumatic minimally displaced fracture of second cervical vertebra, initial encounter ([facility]) documented in this encounter Results * CT Cervical Spine WO Contrast (04/03/2020 11:59 AM CDT) Anatomical Region Laterality Modality Spine N/A Computed Tomogra phy Js Barahona MD IMG CT PROCEDURES Final Re sult documented in this encounter Visit Diagnoses Diagnosis Closed traumatic minimally displaced fracture of second cervical vertebra, initial encounter ([facility]) documented in this encounter Care Teams Ocean Fishing Guide Relationship Specialty Start Date End Date Merlin Biggs MD [address] [place] [address] PCP - General Internal Medicine 02/20/20 11/02/22 Gregg Peace, RN Dining Service Supervisor Transplant 01/26/1907/04 Regina Contreras, RN Dining Service Supervisor 12/07/19 Charly Biggs MD [address] [address] Consulting Physician Internal Medicine 03/28/20 documented as of this encounter
--- OUTSIDE RECORDS SUMMARY | 2024-06-27 01:55 | XMS_ITS | Encounter Summary ---
Author Organization [facility] Address [address] [place] [address] Care Team Providers Care Academic Services Coordinator Name Role Phone Burke Rosenberg DO Primary Care Provider Gregg Peace RN Unavailable [phone] Regina Contreras RN Unavailable [phone] Encounter Details Date Type Department Care Team (Late st Contact Info) Description 12/31/2019 Orders Only [facility] Health Information Management [address] [place] [address] Scanning, Provider Social History Tobacco Use Types Packs/Day Years Used Date Smoking Tobacco: Never Smokeless Tobacco: Never Alcohol Use Standard Drinks/Week Comments No 0 (1 standard drink = 0.6 oz pur e alcohol) Comments No Sex and Gender Information Value Date Recorded Sex Assigned at Not on file Legal Sex 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 MUCK OPERATOR Gender Identity Not on file Sexual Orientation Not on file documented as of this encounter Plan of Treatment Not on file documented as of this encounter Procedures Procedure Name Priority Date/Time Associated Diagnosis Comments SCAN - LABS 12/31/2019 11:57 AM CDT documented in this encounter Results * SCAN - LABS (12/31/2019 11:57 AM CDT) us Provider Scanning Final Result documented in this encounter Visit Diagnoses Not on filedocumented in this encounter Care Teams Academic Services Coordinator Relationship Specialty Start Date End Date Burke Rosenberg, [address] [place] [address] PCP - General 10/09/16 02/19/20 Gregg Peace RN [address] [facility] [address] [place], [place] [id number] Senior Talent Management Consultant Transplant 01/26/1907/04 Regina Contreras RN Senior Talent Management Consultant 12/07/19 documented as of this encounter
--- OUTSIDE RECORDS SUMMARY | 2024-06-27 01:55 | XMS_ITS | Encounter Summary ---
Author Organization [facility] Address [address] [place] [address] Care Team Providers Care Social Worker Name Role Phone Gregg Peace RN Unavailable [phone] Regina Contreras RN Unavailable [phone] Merlin Biggs MD Primary Care Provider [phone] Encounter Details Date Type Department Care Team (Latest Contact Info) Description 03/19/2020 9:32 PM CDT - 03/19/2020 11:59 PM CDT Hospital Encounter [facility] [address] [place] [address] Discharge Disposition: Discharge to home or self care Social History Tobacco Use Types Packs/Day Years Used Date Smoking Tobacco: Never Smokeless Tobacco: Never Alcohol Use Standard Drinks/Week Comments No 0 (1 standard drink = 0.6 oz pur e alcohol) Comments No Sex and Gender Information Value Date Recorded Sex Assigned at Not on file Legal Sex 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 PHOTOGRAPHER Gender Identity Not on file Sexual Orientation [...] Take 1 tablet (5 mg) by mouth ornamental metal worker before breakfast 30 tablet 11 06/16/2019 0 [...] needed for mucositis 5.3 g 03/28/2020 1 biotin 1 mg tablet Take 2 tablets by mouth daily before breakfast 0 calcium carbonate-vitamin D3 (Calcium 600 + D,3,) [...] tablet TAKE 1 TABLET(100 MCG) BY MOUTH CHIEF OF STAFF DOCTOR AND BEFORE BREAKFAST 30 tablet 11 07/11/2019 1 lisinopriL (PRINIVIL,ZESTRIL ) 10 mg tabletIndications :hypertension Take 1 tablet (10 mg total) by mouth ornamental metal worker before breakfast 90 tablet 3 01/09/2020 1 metoprolol (LOPRESSOR) 50 mg tablet Take 1 tablet (50 mg total) by mouth 2 (two) times a day 180 tablet 3 12/09/2018 0 metoprolol tartrate (LOPRESSOR) 25 mg immediate release tablet Take 1 tablet (25 mg total) by mouth 2 (two) times a day 60 tablet 11 12/26/2019 0 metoprolol tartrate (LOPRESSOR) 75 mg tablet immediate release tablet Take 1 tablet (75 mg total) by mouth 2 (two) times a day 60 tablet 03/28/2020 0 pravastatin (PRAVACHOL) 20 mg tablet Take 1 tablet (20 mg total) by mouth nightly 12/16/2016 4 rivaroxaban (XARELTO) 10 mg tablet Take 10 mg by mouth daily 0 senna-docusate (PERICOLACE) 8.6-50 mg Take 2 tablets by mouth 2 (two) times a day 120 tablet 03/28/2020 0 sodium bicarbonate 325 mg tablet Take 2 tablets (650 mg total) by mouth daily 180 tablet 3 10/04/2019 0 sodium bicarbonate 650 mg tablet Take by mouth 06/24/2018 1 tacrolimus (PROGRAF) 0.5 mg capsuleIndication s:immunosuppressi on Take 1 capsule (0.5 mg total) by mouth every 12 (twelve) hours 60 capsule 03/28/2020 1 tacrolimus (PROGRAF) 1 mg capsuleIndication s:Kidney replaced by transplant Take 1 capsule (1 mg total) by mouth 2 (two) times a day 60 capsule 11 01/05/2019 0 tobramycin (TOBREX) 0.3 % ophthalmic solution Instill 1 drop into surgical eye three times daily starting two days before surgery 5 mL 1 03/29/2019 0 traMADoL (ULTRAM) 50 mg tablet Take 1 tablet (50 mg total) by mouth 4 (four) times a day as needed for pain 30 tablet 03/28/2020 0 trimethoprim (TRIMPEX) 100 mg tabletIndications :Prevention of Bacterial Urinary Tract Infection Take 50 mg by mouth nightly 0 vitamin B complex with vitamin C tablet VITAMIN C TABLET 08/19/2018 1 documented as of this encounter Discharge Disposition Disposition Code Departure Means Destination Discharge to home or self care documented in this encounter Plan of Treatment Not on file documented as of this encounter Procedures Procedure Name Priority Date/Time Associated Diagnosis Comments NEURO CT MR OUTSIDE CONSULT Routine 03/19/2020 9:32 PM CDT Diagnosis unknown documented in this encounter Results * Neuro CT MR Outside Consult (03/19/2020 9:32 PM CDT) Anatomical Region Laterality Modality N/A Computed Tomogra phy 03/20/2020 3:38 AM CDT Impressions 03/20/2020 9:21 AM CDT 1. ??Unstable comminuted C2 body fracture with extension into the lateral masses and probable involvement of the right foramen transversarium. ??Recommend CTA head and neck to evaluate for possible arterial injury. The Critical results were discussed with Dr. Mcelroy by Dr. Hameed on 03/20/2020 at 3:37 AM The findings, conclusions and recommendations within this report do not replace the initial findings, conclusions ??and recommendations made at the facility where the study was performed based upon the imaging and clinical condition at that time. ??Comparison with the prior report and clinical history is necessary. ??The provided images may or may not represent the [place] source data set and thus may contain changes that may lower the accuracy of this second-opinion interpretation. Dictated by: Alice Hameed M.D. The radiology attending physician has personally reviewed this study, and had reviewed and/or edited this written report and agrees with it. Electronically signed by: Danna Ying M.D. Narrative 03/20/2020 9:21 AM CDT EXAMINATION: RADIOLOGY CONSULTATION ON OUTSIDE IMAGING STUDY STUDY INITIALLY PERFORMED: 03/19/2020 at [facility]. TYPE OF STUDY: Multiple CT images of the head and cervical spine without contrast are provided at the time of this interpretation. CONTRAST ROUTE: No contrast was administered. The protocol was adequate to address the clinical question. The outside final report was not available at the time of this second opinion interpretation. TYPE OF CONSULTATION: Consult on outside imaging study with images submitted through [facility] DATE OF CONSULTATION: 03/20/2020 2:41 AM HISTORY: Trauma COMPARISON: None available. FINDINGS: Generalized cerebral atrophy with ex vacuo ventricular dilatation. Periventricular white matter hypoattenuation compatible with chronic small vessel ischemic disease. ??Chronic left basal ganglia infarct.. There is no acute intracranial hemorrhage. No mass effect or midline shift is present. The berry-white matter differentiation is normal. The visualized portions of the orbits are normal. The visualized portions of the mastoids are normal. The visualized portions of the paranasal sinuses are normal. No fractures are identified. Minimal C4 on C5 anterolisthesis. Comminuted C2 body fracture with fragmentation of the right lateral mass and possible extension into the right foramen transversarium. ??Additionally, there is a displaced oblique fracture extending between the dens and C2 left lateral mass. Severe degenerative disc disease at C5-C6. No significant spinal canal stenosis. The craniocervical junction is normal. There is bilateral uncovertebral and facet arthropathy. The uncovertebral joints are normal without foraminal stenosis. Emphysematous changes are seen in the apices of the lungs. Procedure Note VoDanna MD - 03/20/2020 EXAMINATION: RADIOLOGY CONSULTATION ON OUTSIDE IMAGING STUDY STUDY INITIALLY PERFORMED: 03/19/2020 at [facility]. TYPE OF STUDY: Multiple CT images of the head and cervical spine without contrast are provided at the time of this interpretation. CONTRAST ROUTE: No contrast was administered. The protocol was adequate to address the clinical question. The outside final report was not available at the time of this second opinion interpretation. TYPE OF CONSULTATION: Consult on outside imaging study with images submitted through [facility] DATE OF CONSULTATION: 03/20/2020 2:41 AM HISTORY: Trauma COMPARISON: None available. FINDINGS: Generalized cerebral atrophy with ex vacuo ventricular dilatation. Periventricular white matter hypoattenuation compatible with chronic small vessel ischemic disease. Chronic left basal ganglia infarct.. There is no acute intracranial hemorrhage. No mass effect or midline shift is present. The berry-white matter differentiation is normal. The visualized portions of the orbits are normal. The visualized portions of the mastoids are normal. The visualized portions of the paranasal sinuses are normal. No fractures are identified. Minimal C4 on C5 anterolisthesis. Comminuted C2 body fracture with fragmentation of the right lateral mass and possible extension into the right foramen transversarium. Additionally, there is a displaced oblique fracture extending between the dens and C2 left lateral mass. Severe degenerative disc disease at C5-C6. No significant spinal canal stenosis. The craniocervical junction is normal. There is bilateral uncovertebral and facet arthropathy. The uncovertebral joints are normal without foraminal stenosis. Emphysematous changes are seen in the apices of the lungs. IMPRESSION: 1. Unstable comminuted C2 body fracture with extension into the lateral masses and probable involvement of the right foramen transversarium. Recommend CTA head and neck to evaluate for possible arterial injury. The Critical results were discussed with Dr. Mcelroy by Dr. Hameed on 03/20/2020 at 3:37 AM The findings, conclusions and recommendations within this report do not replace the initial findings, conclusions and recommendations made at the facility where the study was performed based upon the imaging and clinical condition at that time. Comparison with the prior report and clinical history is necessary. The provided images may or may not represent the [place] source data set and thus may contain changes that may lower the accuracy of this second-opinion interpretation. Dictated by: Alice Hameed M.D. The radiology attending physician has personally reviewed this study, and had reviewed and/or edited this written report and agrees with it. Electronically signed by: Danna Ying M.D. Jessi Aldana MD IMG CT PROCEDURES Fi nal Result documented in this encounter Visit Diagnoses Not on filedocumented in this encounter Care Teams Social Worker Relationship Specialty Start Date End Date Merlin Biggs MD [address] [place] [address] PCP - General Internal Medicine 02/20/20 11/02/22 Gregg Peace RN Home Economics Teacher Transplant 01/26/1907/04 Regina Contreras, RN Home Economics Teacher 12/07/19 documented as of this encounter
--- OUTSIDE RECORDS SUMMARY | 2024-06-27 01:55 | XMS_ITS | Encounter Summary ---
Author Organization [facility] Healthcare Address [address] [place] [address] Care Team Providers Care Child Development Consultant Name Role Phone Burke Rosenberg DO Primary Care Provider [phone] Gregg Peace RN Unavailable [phone] Encounter Details Date Type Department Care Team (Late st Contact Info) Description 08/03/2019 Orders Only [facility] Health Information Management [address] [place] [address] Scanning, Provider Social History Tobacco Use Types Packs/Day Years Used Date Smoking Tobacco: Never Smokeless Tobacco: Never Alcohol Use Standard Drinks/Week Comments No 0 (1 standard drink = 0.6 oz pur e alcohol) Comments No Sex and Gender Information Value Date Recorded Sex Assigned at Not on file Legal Sex 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 TRIGONOMETRY TEACHER Gender Identity Not on file Sexual Orientation Not on file documented as of this encounter Plan of Treatment Not on file documented as of this encounter Procedures Procedure Name Priority Date/Time Associated Diagnosis Comments SCAN - LABS 08/03/2019 11:16 AM TRIGONOMETRY TEACHER documented in this encounter Results * SCAN - LABS (08/03/2019 11:16 AM TRIGONOMETRY TEACHER) us Provider Scanning Final Result documented in this encounter Visit Diagnoses Not on filedocumented in this encounter Care Teams Child Development Consultant Relationship Specialty Start Date End Date Burke Rosenberg DO [address] [address] PCP - General 10/09/16 02/19/20 Gregg Peace RN [address] [address] Journeyman Apprentice Electricians Transplant 01/26/1907/04 documented as of this encounter
--- OUTSIDE RECORDS SUMMARY | 2024-06-27 01:55 | XMS_ITS | Encounter Summary ---
Author Organization [facility] Healthcare Address [address] [place] [address] Care Team Providers Care Tin Can Feeder Name Role Phone Burke Rosenberg DO Primary Care Provider [phone] Gregg Peace RN Unavailable [phone] Encounter Details Date Type Department Care Team (Late st Contact Info) Description 07/05/2019 Orders Only [facility] Health Information Management [address] [place] [address] Scanning, Provider Social History Tobacco Use Types Packs/Day Years Used Date Smoking Tobacco: Never Smokeless Tobacco: Never Alcohol Use Standard Drinks/Week Comments No 0 (1 standard drink = 0.6 oz pur e alcohol) Comments No Sex and Gender Information Value Date Recorded Sex Assigned at Not on file Legal Sex 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 HOME CARE AND HOME HEALTH AIDES TEACHER Gender Identity Not on file Sexual Orientation Not on file documented as of this encounter Plan of Treatment Not on file documented as of this encounter Procedures Procedure Name Priority Date/Time Associated Diagnosis Comments SCAN - LABS 07/05/2019 11:20 AM HOME CARE AND HOME HEALTH AIDES TEACHER documented in this encounter Results * SCAN - LABS (07/05/2019 11:20 AM HOME CARE AND HOME HEALTH AIDES TEACHER) us Provider Scanning Final Result documented in this encounter Visit Diagnoses Not on filedocumented in this encounter Care Teams Tin Can Feeder Relationship Specialty Start Date End Date Burke Rosenberg DO [address] [address] PCP - General 10/09/16 02/19/20 Gregg Peace RN [address] [address] Rod Cup Filler Transplant 01/26/1907/04 documented as of this encounter
--- OUTSIDE RECORDS SUMMARY | 2024-06-27 01:55 | XMS_ITS | Encounter Summary ---
Author Organization [facility] Address [address] [place] [address] Phone Care Team Providers Care Position Classification Manager Name Role Phone Gregg Peace RN Unavailable Regina Contreras RN Unavailable Merlin Biggs MD Primary Care Provider [phone] Encounter Details Date Type Department Care Team (Late st Contact Info) Description 03/22/2020 Orders Only [facility] Orthopaedic Surgery [facility] Medical Office Building [address] [place] [address] Js Barahona MD [address] [address] Closed nondisplaced fracture of second cervical vertebra, unspecified fracture morphology, initial encounter ([facility]) (Primary Dx) Social History Tobacco Use Types Packs/Day Years Used Date Smoking Tobacco: Never Smokeless Tobacco: Never Alcohol Use Standard Drinks/Week Comments No 0 (1 standard drink = 0.6 oz pur e alcohol) Comments No Sex and Gender Information Value Date Recorded Sex Assigned at Not on file Legal Sex 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 POSSUM TRAPPER Gender Identity Not on file Sexual Orientation Not on file documented as of this encounter Plan of Treatment Not on file documented as of this encounter Visit Diagnoses Diagnosis Closed nondisplaced fracture of second cervical vertebra, unspecified fracture morphology, initial encounter (HCC)- Primary documented in this encounter Care Teams Position Classification Manager Relationship Specialty Start Date End Date Merlin Biggs MD [address] [place] [address] PCP - General Internal Medicine 02/20/20 11/02/22 Gregg Peace RN Supervisor Safety Deposit Transplant 01/26/1907/04 Regina Contreras RN Supervisor Safety Deposit 12/07/19 documented as of this encounter
--- OUTSIDE RECORDS SUMMARY | 2024-06-27 01:55 | XMS_ITS | Encounter Summary ---
Author Organization [facility] Healthcare Address [address] [place] [address] Care Team Providers Care Director Plans Name Role Phone Burke Rosenberg DO Primary Care Provider Gregg Peace RN Unavailable [phone] Encounter Details Date Type Department Care Team (Late st Contact Info) Description 06/03/2019 Orders Only [facility] Health Information Management 1 [place] [address] Scanning, Provider Social History Tobacco Use Types Packs/Day Years Used Date Smoking Tobacco: Never Smokeless Tobacco: Never Alcohol Use Standard Drinks/Week Comments No 0 (1 standard drink = 0.6 oz pur e alcohol) Comments No Sex and Gender Information Value Date Recorded Sex Assigned at Not on file Legal Sex 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 INSOLE DOUBLER Gender Identity Not on file Sexual Orientation Not on file documented as of this encounter Plan of Treatment Not on file documented as of this encounter Procedures Procedure Name Priority Date/Time Associated Diagnosis Comments SCAN - LABS 06/03/2019 4:55 PM INSOLE DOUBLER documented in this encounter Results * SCAN - LABS (06/03/2019 4:55 PM INSOLE DOUBLER) us Provider Scanning Final Result documented in this encounter Visit Diagnoses Not on filedocumented in this encounter Care Teams Director Plans Relationship Specialty Start Date End Date Burke Rosenberg DO [address] [address] PCP - General 10/09/16 02/19/20 Gregg Peace RN [address] [address] Antique Furniture Reproducer Transplant 01/26/1907/04 documented as of this encounter
--- OUTSIDE RECORDS SUMMARY | 2024-06-27 01:55 | XMS_ITS | Encounter Summary ---
Author Organization [facility] Healthcare Address [address] [place] [address] Care Team Providers Care Food And Beverage Director Name Role Phone Burke Rosenberg DO Primary Care Provider Gregg Peace RN Unavailable [phone] Encounter Details Date Type Department Care Team (Late st Contact Info) Description 06/02/2019 Orders Only [facility] Health Information Management 1 [place] [address] Scanning, Provider Social History Tobacco Use Types Packs/Day Years Used Date Smoking Tobacco: Never Smokeless Tobacco: Never Alcohol Use Standard Drinks/Week Comments No 0 (1 standard drink = 0.6 oz pur e alcohol) Comments No Sex and Gender Information Value Date Recorded Sex Assigned at Not on file Legal Sex 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 SPOT WASHER Gender Identity Not on file Sexual Orientation Not on file documented as of this encounter Plan of Treatment Not on file documented as of this encounter Procedures Procedure Name Priority Date/Time Associated Diagnosis Comments SCAN - LABS 06/02/2019 8:44 AM SPOT WASHER documented in this encounter Results * SCAN - LABS (06/02/2019 8:44 AM SPOT WASHER) us Provider Scanning Final Result documented in this encounter Visit Diagnoses Not on filedocumented in this encounter Care Teams Food And Beverage Director Relationship Specialty Start Date End Date Burke Rosenberg DO [address] [address] PCP - General 10/09/16 02/19/20 Gregg Peace RN [address] [address] Basin Tender Transplant 01/26/1907/04 documented as of this encounter
--- OUTSIDE RECORDS SUMMARY | 2024-06-27 01:55 | XMS_ITS | Encounter Summary ---
Author Organization [facility] Healthcare Address [address] [place] [address] Care Team Providers Care Regional Cra Name Role Phone Burke Rosenberg DO Primary Care Provider Gregg Peace RN Unavailable Encounter Details Date Type Department Care Team (Late st Contact Info) Description 08/30/2019 Orders Only [facility] Health Information Management [address] [place] [address] Scanning, Provider Social History Tobacco Use Types Packs/Day Years Used Date Smoking Tobacco: Never Smokeless Tobacco: Never Alcohol Use Standard Drinks/Week Comments No 0 (1 standard drink = 0.6 oz pur e alcohol) Comments No Sex and Gender Information Value Date Recorded Sex Assigned at Not on file Legal Sex 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 AGRICULTURAL EQUIPMENT SALESPERSON Gender Identity Not on file Sexual Orientation Not on file documented as of this encounter Plan of Treatment Not on file documented as of this encounter Procedures Procedure Name Priority Date/Time Associated Diagnosis Comments SCAN - LABS 08/30/2019 5:07 PM AGRICULTURAL EQUIPMENT SALESPERSON documented in this encounter Results * SCAN - LABS (08/30/2019 5:07 PM AGRICULTURAL EQUIPMENT SALESPERSON) us Provider Scanning Final Result documented in this encounter Visit Diagnoses Not on filedocumented in this encounter Care Teams Regional Cra Relationship Specialty Start Date End Date Burke Rosenberg DO [address] [address] PCP - General 10/09/16 02/19/20 Gregg Peace RN [address] [address] Regional Engineer Transplant 01/26/1907/04 documented as of this encounter
--- OUTSIDE RECORDS SUMMARY | 2024-06-27 01:55 | XMS_ITS | Encounter Summary ---
Author Organization [facility] Healthcare Address [address] [place] [address] Care Team Providers Care Field Counsel Name Role Phone Burke Rosenberg DO Primary Care Provider [phone] Gregg Peace RN Unavailable [phone] Regina Contreras RN Unavailable [phone] Encounter Details Date Type Department Care Team (Late st Contact Info) Description 02/08/2020 Orders Only [facility] Health Information Management [address] [place] [address] Scanning, Provider Social History Tobacco Use Types Packs/Day Years Used Date Smoking Tobacco: Never Smokeless Tobacco: Never Alcohol Use Standard Drinks/Week Comments No 0 (1 standard drink = 0.6 oz pur e alcohol) Comments No Sex and Gender Information Value Date Recorded Sex Assigned at Not on file Legal Sex 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 FLATWORK FEEDER Gender Identity Not on file Sexual Orientation Not on file documented as of this encounter Plan of Treatment Not on file documented as of this encounter Procedures Procedure Name Priority Date/Time Associated Diagnosis Comments SCAN - LABS 02/08/2020 8:33 PM CDT documented in this encounter Results * SCAN - LABS (02/08/2020 8:33 PM CDT) us Provider Scanning Final Result documented in this encounter Visit Diagnoses Not on filedocumented in this encounter Care Teams Field Counsel Relationship Specialty Start Date End Date Burke Rosenberg, [address] [place] [address] PCP - General 10/09/16 02/19/20 Gregg Peace RN [address] [facility] [address] [place], [place] [id number] Style Advisor Transplant 01/26/1907/04 Regina Contreras RN Style Advisor 12/07/19 documented as of this encounter
--- OUTSIDE RECORDS SUMMARY | 2024-06-27 01:55 | XMS_ITS | Encounter Summary ---
Author Organization [facility] Address [address] [place] [address] Care Team Providers Care Wheel Setter Name Role Phone Gregg Peace RN Unavailable [phone] Regina Contreras RN Unavailable [phone] Merlin Biggs MD Primary Care Provider [phone] Encounter Details Date Type Department Care Team (Late st Contact Info) Description 03/03/[address] [facility] Health Information Management [address] [place] [address] Scanning, Provider Social History Tobacco Use Types Packs/Day Years Used Date Smoking Tobacco: Never Smokeless Tobacco: Never Alcohol Use Standard Drinks/Week Comments No 0 (1 standard drink = 0.6 oz pur e alcohol) Comments No Sex and Gender Information Value Date Recorded Sex Assigned at Not on file 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 SAWING AND ASSEMBLY Gender Identity Not on file Sexual Orientation Not on file documented as of this encounter Plan of Treatment Not on file documented as of this encounter Procedures Procedure Name Priority Date/Time Associated Diagnosis Comments SCAN - LABS 03/03/2020 12:01 PM CDT documented in this encounter Results * SCAN - LABS (03/03/2020 12:01 PM CDT) us Provider Scanning Final Result documented in this encounter Visit Diagnoses Not on filedocumented in this encounter Care Teams Wheel Setter Relationship Specialty Start Date End Date Merlin Biggs MD [address] [place] [address] PCP - General Internal Medicine 02/20/20 11/02/22 Gregg Peace RN Director Of It Operations Transplant 01/26/1907/04 Regina Contreras RN Director Of It Operations 12/07/19 documented as of this encounter
--- OUTSIDE RECORDS SUMMARY | 2024-06-27 01:55 | XMS_ITS | Encounter Summary ---
Author Organization [facility] Healthcare Address [address] [place] [address] Care Team Providers Care Damage Assessor Name Role Phone Burke Rosenberg DO Primary Care Provider Gregg Peace RN Unavailable [phone] Encounter Details Date Type Department Care Team (Late st Contact Info) Description 05/05/2019 Orders Only [facility] Health Information Management [address] [place] [address] Scanning, Provider Social History Tobacco Use Types Packs/Day Years Used Date Smoking Tobacco: Never Smokeless Tobacco: Never Alcohol Use Standard Drinks/Week Comments No 0 (1 standard drink = 0.6 oz pur e alcohol) Comments No Sex and Gender Information Value Date Recorded Sex Assigned at Not on file Legal Sex 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 CENTRIFUGAL WAX MOLDER Gender Identity Not on file Sexual Orientation Not on file documented as of this encounter Plan of Treatment Not on file documented as of this encounter Procedures Procedure Name Priority Date/Time Associated Diagnosis Comments SCAN - LABS 05/05/2019 10:49 AM CDT documented in this encounter Results * SCAN - LABS (05/05/2019 10:49 AM CDT) us Provider Scanning Final Result documented in this encounter Visit Diagnoses Not on filedocumented in this encounter Care Teams Damage Assessor Relationship Specialty Start Date End Date Burke Rosenberg DO [address] [address] PCP - General 10/09/16 02/19/20 Gregg Peace, DEREK [address] [address] Oyster Floater Transplant 01/26/1907/04 documented as of this encounter
--- OUTSIDE RECORDS SUMMARY | 2024-06-27 01:55 | XMS_ITS | Encounter Summary ---
Author Organization [facility] Address [address] [place] [address] Care Team Providers Care Windows System Admin Name Role Phone Gregg Peace RN Unavailable [phone] Regina Contreras RN Unavailable [phone] Merlin Biggs MD Primary Care Provider [phone] Encounter Details Date Type Department Care Team (Latest Contact Info) Description 03/19/2020 9:31 PM CDT Hospital Encounter [facility] [address] [place] [address] Discharge Disposition: Discharge to home or self care Social History Tobacco Use Types Packs/Day Years Used Date Smoking Tobacco: Never Smokeless Tobacco: Never Alcohol Use Standard Drinks/Week Comments No 0 (1 standard drink = 0.6 oz pur e alcohol) Comments No Sex and Gender Information Value Date Recorded Sex Assigned at Not on file Legal Sex 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 SERVICE CENTER TECHNICIAN Gender Identity Not on file Sexual [...] Take 1 tablet (5 mg) by mouth laboratory manager before breakfast 30 tablet 11 06/16/2019 0 [...] tablet TAKE 1 TABLET(100 MCG) BY MOUTH OTHER SPORTS OFFICIAL AND BEFORE BREAKFAST 30 tablet 11 07/11/2019 1 lisinopriL (PRINIVIL,ZESTRIL ) 10 mg tabletIndications :hypertension Take 1 tablet (10 mg total) by mouth laboratory manager before breakfast 90 tablet 3 01/09/2020 1 [...] images may or may not represent the kasaan source data set and thus may contain [...] IMAGING STUDY STUDY INITIALLY PERFORMED: 03/19/2020 at [facility]. TYPE OF STUDY: Multiple CT images [...] the apices of the lungs. Procedure Note Danna Ying MD - 03/20/2020 EXAMINATION: RADIOLOGY CONSULTATION ON OUTSIDE IMAGING STUDY STUDY INITIALLY PERFORMED: 03/19/2020 at [facility]. TYPE OF STUDY: Multiple CT images [...] images may or may not represent the kasaan source data set and thus may contain [...] on filedocumented in this encounter Care Teams Windows System Admin Relationship Specialty Start Date End Date Merlin Biggs MD [address] [place] [address] PCP - General Internal Medicine 02/20/20 11/02/22 Gregg Peace RN Director Television Transplant 01/26/1907/04 Regina Contreras RN Director Television 12/07/19 documented as of this encounter
--- OUTSIDE RECORDS SUMMARY | 2024-06-27 01:55 | XMS_ITS | Encounter Summary ---
Author Organization [facility] Healthcare Address [address] [place] [address] Care Team Providers Care Manager Safe Name Role Phone Burke Rosenberg DO Primary Care Provider Gregg Peace RN Unavailable [phone] Regina Contreras RN Unavailable [phone] Encounter Details Date Type Department Care Team (Late st Contact Info) Description 01/04/2020 Orders Only [facility] Health Information Management [address] [place] [address] Scanning, Provider Social History Tobacco Use Types Packs/Day Years Used Date Smoking Tobacco: Never Smokeless Tobacco: Never Alcohol Use Standard Drinks/Week Comments No 0 (1 standard drink = 0.6 oz pur e alcohol) Comments No Sex and Gender Information Value Date Recorded Sex Assigned at Not on file Legal Sex 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 THEATRE DIRECTOR Gender Identity Not on file Sexual Orientation Not on file documented as of this encounter Plan of Treatment Not on file documented as of this encounter Procedures Procedure Name Priority Date/Time Associated Diagnosis Comments SCAN - LABS 01/04/2020 8:43 AM CDT documented in this encounter Results * SCAN - LABS (01/04/2020 8:43 AM CDT) us Provider Scanning Final Result documented in this encounter Visit Diagnoses Not on filedocumented in this encounter Care Teams Manager Safe Relationship Specialty Start Date End Date Burke Rosenberg, [address] [place] [address] PCP - General 10/09/16 02/19/20 Gregg Peace RN [address] [facility] [address] [place], [place] [id number] Quality Process Engineer Transplant 01/26/1907/04 Regina Contreras RN Quality Process Engineer 12/07/19 documented as of this encounter
--- OUTSIDE RECORDS SUMMARY | 2024-06-27 01:55 | XMS_ITS | Encounter Summary ---
Author Organization [facility] Address [address] [place] [address] Phone Care Team Providers Care Practice Advisor Name Role Phone Burke Rosenberg DO Primary Care Provider [phone] Gregg Peace RN Unavailable [phone] Encounter Details Date Type Department Care Team (Late st Contact Info) Description 06/16/2019 11:15 AM MACHINE MAINTENANCE SERVICER Office Visit [facility] Ophthalmology [address] [place] [address] Butch Maria MD [address] [facility] [address] [address] [place] [address] Pseudophakia of both eyes (Primary Dx) Social History Tobacco Use Types Packs/Day Years Used Date Smoking Tobacco: Never Smokeless Tobacco: Never Alcohol Use Standard Drinks/Week Comments No 0 (1 standard drink = 0.6 oz pur e alcohol) Comments No Sex and Gender Information Value Date Recorded Sex Assigned at Not on file Legal Sex 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 MACHINE MAINTENANCE SERVICER Gender Identity Not on file Sexual Orientation Not on file documented as of this encounter Progress Notes * Butch Maria MD - 06/16/2019 11:15 AM CST Imp: 2 months status post (s/p) phaco/IOL OD - doing well with resolved corneal edema P: Stop William 128 drops. Rx given for new bifocals. Return in 2-3 months - dilated exam. INE MAINTENANCE SERVICER documented in this encounter Plan of Treatment Not on file documented as of this encounter Visit Diagnoses Diagnosis Pseudophakia of both eyes- Primary Lens replaced by other means documented in this encounter Eye Exam Visual Acuity (Snellen - Linear) Right eye Left eye Dist sc 20/25 20/25 Tonometry (Applanation, 11:52 AM) Right eye Left eye Pressure 16 16 Pupils Pupils Dark Light Shape APD Right eye PERRL 3 2 Round None Left eye PERRL 3 2 Round None Visual Hills Right eye Left eye Full Full Extraocular Movement Right eye Left eye Full Full Neuro/Psych Oriented x3: Yes Mood/Affect: Normal Slit Lamp Exam Right eye Left eye Lids/Lashes Dermatochalasis - upper lid Conjunctiva/Sclera White and quiet Cornea Clear Anterior Chamber Deep and quiet Iris Round and reactive Lens Posterior chamber in traocular lens, no Posterior capsular opacification Manifest Refraction Sphere Cylinder [place] Dist [place] Add Right eye -0.25 +0.75 180 20/20 +2.50 Left eye -0.50 Sphere 20/20 +2.50 Final Rx Sphere Cylinder [place] Dist [place] Add Right eye -0.25 +0.75 180 20/20 +2.50 Left eye -0.50 Sphere 20/20 +2.50 Type: Bifocal Expiration Date: 06/16/2020 Comments: Cataract surgery O D - 04/11/19 Care Teams Practice Advisor Relationship Specialty Start Date End Date Burke Rosenberg DO [address] [facility] [address] [place] [address] PCP - General 10/09/16 02/19/20 Gregg Peace RN [address] [facility] [address] [place] [address] Social Work Lecturer Transplant 01/26/1907/04 documented as of this encounter
--- OUTSIDE RECORDS SUMMARY | 2024-06-27 01:55 | XMS_ITS | Encounter Summary ---
Author Organization [facility] Healthcare Address [address] [place] [address] Care Team Providers Care Speech And Hearing Clinic Director Name Role Phone Burke Rosenberg DO Primary Care Provider [phone] Gregg Peace RN Unavailable [phone] Regina Contreras RN Unavailable [phone] Encounter Details Date Type Department Care Team (Late st Contact Info) Description 12/06/2019 Orders Only Health Information Management [address] [place] [address] Scanning, Provider Social History Tobacco Use Types Packs/Day Years Used Date Smoking Tobacco: Never Smokeless Tobacco: Never Alcohol Use Standard Drinks/Week Comments No 0 (1 standard drink = 0.6 oz pur e alcohol) Comments No Sex and Gender Information Value Date Recorded Sex Assigned at Not on file Legal Sex 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 DIRECTOR OF OUTPATIENT SERVICES Gender Identity Not on file Sexual Orientation Not on file documented as of this encounter Plan of Treatment Not on file documented as of this encounter Procedures Procedure Name Priority Date/Time Associated Diagnosis Comments SCAN - LABS 12/06/2019 10:00 AM CDT documented in this encounter Results * SCAN - LABS (12/06/2019 10:00 AM CDT) us Provider Scanning Final Result documented in this encounter Visit Diagnoses Not on filedocumented in this encounter Care Teams Speech And Hearing Clinic Director Relationship Specialty Start Date End Date Burke oRsenberg, [address] [place] [address] PCP - General 10/09/16 02/19/20 Gregg Peace RN [address] [facility] [address] [place], [place] [id number] Press Operator Carbon Blocks Transplant 01/26/1907/04 Regina Contreras RN Press Operator Carbon Blocks 12/07/19 documented as of this encounter
--- OUTSIDE RECORDS SUMMARY | 2024-06-27 01:55 | XMS_ITS | Encounter Summary ---
Author Organization [facility] Healthcare Address [address] [place] [address] Care Team Providers Care Software Development Advisor Name Role Phone Burke Rosenberg DO Primary Care Provider [phone] Gregg Peace RN Unavailable [phone] Encounter Details Date Type Department Care Team (Late st Contact Info) Description 07/05/2019 Orders Only [facility] Transplant Kidney [address] [facility] [phone] [place] [address] Hernando Davila Kidney transplanted (Primary Dx); Encounter for long-term (current) use of other medications; Hyperlipidemia, unspecified hyperlipidemia type Social History Tobacco Use Types Packs/Day Years Used Date Smoking Tobacco: Never Smokeless Tobacco: Never Alcohol Use Standard Drinks/Week Comments No 0 (1 standard drink = 0.6 oz pur e alcohol) Comments No Sex and Gender Information Value Date Recorded Sex Assigned at Not on file Legal Sex 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 CUTTER OPERATOR BRICK Gender Identity Not on file Sexual Orientation Not on file documented as of this encounter Plan of Treatment Not on file documented as of this encounter Visit Diagnoses Diagnosis Kidney transplanted- Primary Kidney replaced by transplant Encounter for long-term (current) use of other medications Hyperlipidemia, unspecified hyperlipidemia type documented in this encounter Care Teams Software Development Advisor Relationship Specialty Start Date End Date Burke Rosenberg DO [address] [address] PCP - General 10/09/16 02/19/20 Gregg Peace, RN [address] [place] [id number] Gluing Machine Operator Automatic Transplant 01/26/1907/04 documented as of this encounter
--- OUTSIDE RECORDS SUMMARY | 2024-06-27 01:55 | XMS_ITS | Encounter Summary ---
Author Organization [facility] Facility Care Team Providers Care Store Mgr Name Role Phone Burke Rosenberg DO Primary Care Provider Gregg Peace RN Unavailable Encounter Details Date Type Department Care Team (Latest Contact Info) Description 09/15/2019 Travel Social History Tobacco Use Types Packs/Day Years Used Date Smoking Tobacco: Never Smokeless Tobacco: Never Alcohol Use Standard Drinks/Week Comments No 0 (1 standard drink = 0.6 oz pur e alcohol) Comments No Sex and Gender Information Value Date Recorded Sex Assigned at Not on file Legal Sex 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 DATA ENTRY ASSOCIATE Gender Identity Not on file Sexual Orientation Not on file COVID-19 Exposure Response Date Recorded In the last month, have you been in contact with someone who was confirmed or suspected to have Coronavirus / COVID-19? No / Unsure 09/15/2019 10:10 AM CDT documented as of this encounter Plan of Treatment Not on file documented as of this encounter Visit Diagnoses Not on filedocumented in this encounter Care Teams Store Mgr Relationship Specialty Start Date End Date Burke Rosenberg DO [address] [place] [address] PCP - General 10/09/16 02/19/20 Gregg Peace, DEREK [address] [place] [address] Rotary Cutter Transplant 01/26/1907/04 documented as of this encounter
--- OUTSIDE RECORDS SUMMARY | 2024-06-27 01:55 | XMS_ITS | Encounter Summary ---
Author Organization [facility] Healthcare Address [address] [place] [address] Care Team Providers Care Family Consumer Science Teacher Name Role Phone Burke Rosenberg DO Primary Care Provider [phone] Gregg Peace RN Unavailable [phone] Encounter Details Date Type Department Care Team (Late st Contact Info) Description 06/08/2019 Telephone [facility] Transplant Kidney [address] [facility] [address] [phone] [place], [place] [id number] Nikia Martinez RN [address] [facility] [address] [place], [place] [id number] Social History Tobacco Use Types Packs/Day Years Used Date Smoking Tobacco: Never Smokeless Tobacco: Never Alcohol Use Standard Drinks/Week Comments No 0 (1 standard drink = 0.6 oz pur e alcohol) Comments No Sex and Gender Information Value Date Recorded Sex Assigned at Not on file Legal Sex 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 BUTTON BREAKER OPERATOR Gender Identity Not on file Sexual Orientation Not on file documented as of this encounter Miscellaneous Notes * Telephone Encounter - Nikia Martinez RN - 06/08/2019 10:11 AM BUTTON BREAKER OPERATOR Sent UCx results to Dr. Valderrama, will wait for response on whether or not pt needs tx. Nikia Martinez RN: Rec'd email from Dr. Valderrama, if pt is not symptomatic, no need to treat. Will continue to monitor. ON BREAKER OPERATOR ON BREAKER OPERATOR documented in this encounter Plan of Treatment Not on file documented as of this encounter Visit Diagnoses Not on filedocumented in this encounter Care Teams Family Consumer Science Teacher Relationship Specialty Start Date End Date Burke Rosenberg DO [address] [address] PCP - General 10/09/16 02/19/20 Gregg Peace RN [address] [address] Golf Course Designer Transplant 01/26/1907/04 documented as of this encounter
--- OUTSIDE RECORDS SUMMARY | 2024-06-27 01:55 | XMS_ITS | Encounter Summary ---
Author Organization [facility] Healthcare Address [address] [place] [address] Care Team Providers Care Party Plan Sales Director Name Role Phone Burke Rosenberg DO Primary Care Provider [phone] Gregg Peace RN Unavailable [phone] Encounter Details Date Type Department Care Team (Late st Contact Info) Description 07/07/2019 Orders Only [facility] Health Information Management [address] [place] [address] Scanning, Provider Social History Tobacco Use Types Packs/Day Years Used Date Smoking Tobacco: Never Smokeless Tobacco: Never Alcohol Use Standard Drinks/Week Comments No 0 (1 standard drink = 0.6 oz pur e alcohol) Comments No Sex and Gender Information Value Date Recorded Sex Assigned at Not on file Legal Sex 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 ACADEMIC ADVISEMENT DIRECTOR Gender Identity Not on file Sexual Orientation Not on file documented as of this encounter Plan of Treatment Not on file documented as of this encounter Procedures Procedure Name Priority Date/Time Associated Diagnosis Comments SCAN - LABS 07/07/2019 6:03 PM ACADEMIC ADVISEMENT DIRECTOR SCAN - LABS 07/07/2019 8:44 AM ACADEMIC ADVISEMENT DIRECTOR documented in this encounter Results * SCAN - LABS (07/07/2019 6:03 PM ACADEMIC ADVISEMENT DIRECTOR) us Provider Scanning Final Result * SCAN - LABS (07/07/2019 8:44 AM ACADEMIC ADVISEMENT DIRECTOR) us Provider Scanning Final Result documented in this encounter Visit Diagnoses Not on filedocumented in this encounter Care Teams Party Plan Sales Director Relationship Specialty Start Date End Date Burke Rosenberg DO [address] [facility] [address] [place] [address] PCP - General 10/09/16 02/19/20 Gregg Peace, DEREK [address] [facility] [address] [place] [address] Yard Conductor Transplant 01/26/1907/04 documented as of this encounter
--- OUTSIDE RECORDS SUMMARY | 2024-06-27 01:55 | XMS_ITS | Encounter Summary ---
Author Organization [facility] Address [address] [place] [address] Phone Care Team Providers Care Certified Real Estate Appraiser Name Role Phone Burke Rosenberg DO Primary Care Provider [phone] Gregg Peace RN Unavailable [phone] Reason for Visit * Renal Disease (Routine) - Closed Specialty Diagnoses / Procedures Referred By Jairo t Referred To Contact Transplant Diagnoses CKD Procedures TRANSPLANT RETURN Referral, Self [facility] 5th [place] [address] [place] [address] Phone: tel: fax: Referral ID Status Reason Start Date Expiration Date Visits Re quested Visits Authorized [id number] Closed 05/20/2018 11/29/2019 50 50 Encounter Details Date Type Department Care Team (Late st Contact Info) Description 05/26/2019 9:30 AM PATROL CONDUCTOR Office Visit [facility] 5th [place] [address] [place] [address] Clem Valderrama MD [address] [place] [address] Encounter for long-term (current) use of high-risk medication (Primary Dx); Encounter for aftercare following kidney transplant Social History Tobacco Use Types Packs/Day Years Used Date Smoking Tobacco: Never Smokeless Tobacco: Never Alcohol Use Standard Drinks/Week Comments No 0 (1 standard drink = 0.6 oz pur e alcohol) Comments No Sex and Gender Information Value Date Recorded Sex Assigned at Not on file Legal Sex 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 PATROL CONDUCTOR Gender Identity Not on file Sexual Orientation Not on file documented as of this encounter Last Filed Vital Signs Vital Sign Reading Time Taken Comments Blood Pressure 146/85 05/26/2019 9:34 AM PATROL CONDUCTOR Pulse 85 05/26/2019 9:34 AM PATROL CONDUCTOR Temperature - - Respiratory Rate - - Oxygen Saturation - - Inhaled Oxygen Concentration - - Weight 59 kg (130 lb) 05/26/2019 9:34 AM PATROL CONDUCTOR Height 157.5 cm (5' 2 ) 05/26/2019 9:34 AM PATROL CONDUCTOR Body Mass Index 23.78 05/26/2019 9:34 AM PATROL CONDUCTOR documented in this encounter Progress Notes * Clem Valderrama MD - 05/26/2019 9:30 AM CST POST KIDNEY TRANSPLANT NOTE HISTORY OF PRESENT ILLNESS: Ms. Dunlap is an 84 y.o. female with end-stage renal disease secondary [...] output. Stent removed 03/10/13. 3. Readmission to [facility] on March 08, 2013 for orthostatic hypertension [...] last clinic visit, Juliet Dunlap has had cardiac cath 2018 that did not show evidence of disease that would need intervention, she was told she hassome decrease in EF and was started on diuretics however she did not tolerate them because of incontinence. She mostly notes ongoing fatigue, but denies shortness of breath, orthopnea or PND. She hasnot had recurrent falls. She recently had eye surgery after some delay for slowly healing lower extwound. Denies cough, chest pain, dyspnea. Denies fevers, dysuria, urgency, or frequency. Reports compliance with immunosuppression. All other systems negative. CURRENT MEDICATIONS: Current Outpatient Medications: ??? acyclovir (ZOVIRAX) 200 mg capsule, Take 1 capsule (200 mg total) by mouth 2 (two) times a day (Patient taking differently: Take 200 mg by mouth head animal keeper before breakfast ), Disp: 60 capsule, Rfl: 11 ??? amLODIPine (NORVASC) 10 mg tablet, daily, Disp: , Rfl: ??? aspirin 81 mg tablet, Take 81 mg by mouth every morning. , Disp: , Rfl: ??? biotin 1 mg tablet, Take 1 tablet by mouth daily before breakfast. , Disp: , Rfl: ??? cholecalciferol (VITAMIN D-3) 2,000 unit tablet, Take 1 tablet (2,000 Units total) by mouth daily. (Patient taking differently: Take 2,000 Units by mouth head animal keeper before breakfast. ), Disp: 30 tablet, Rfl: 11 ??? cyanocobalamin (Vitamin B-12) 100 mcg tablet, Take 100 mcg by mouth head animal keeper before breakfast. , Disp: , Rfl: ??? estradiol (ESTRACE) 0.01 % (0.1 mg/gram) vaginal cream, , Disp: , Rfl: 2 ??? fluticasone (FLONASE) 50 mcg/actuation nasal spray, SHAKE LQ AND U 1 SPR IEN QD, Disp: , Rfl: 3 ??? hydrocortisone (PROCTOZONE-HC) 2.5 % rectal cream, 1 application to affected area, Disp: , Rfl: ??? ketorolac (ACULAR LS) 0.4 % drops, Instill 1 drop into surgical eye three times daily starting two days before surgery, Disp: 5 mL, Rfl: 1 ??? levothyroxine (SYNTHROID) 100 mcg tablet, TAKE 1 TABLET(100 MCG) BY MOUTH SCHEDULE ANALYST AND BEFORE BREAKFAST, Disp: 90 tablet, Rfl: 7 ??? lisinopril (PRINIVIL,ZESTRIL) 10 mg tablet, Take 1 tablet (10 mg total) by mouth daily (Patienttaking differently: Take 10 mg by mouth head animal keeper before breakfast ), Disp: 90 tablet, Rfl: 3 ??? metoprolol (LOPRESSOR) 25 mg tablet, Take 1 tablet (25 mg total) by mouth 2 (two) times a day, Disp: 60 tablet, Rfl: 11 ??? metoprolol (LOPRESSOR) 50 mg tablet, Take 1 tablet (50 mg total) by mouth 2 (two) times a day, Disp: 180 tablet, Rfl: 3 ??? ondansetron ODT (ZOFRAN-ODT) 4 mg disintegrating tablet, , Disp: , Rfl: ??? oxybutynin XL (DITROPAN-XL) 10 mg 24 hr tablet, Take 10 mg by mouth daily, Disp: , Rfl: ??? pravastatin (PRAVACHOL) 20 mg tablet, Take 20 mg by mouth nightly. , Disp: , Rfl: ??? prednisoLONE acetate (PRED FORTE) 1 % ophthalmic suspension, Instill 1 drop into surgical eye three times daily starting after surgery, Disp: 5 mL, Rfl: 1 ??? sodium bicarbonate 325 mg tablet, TAKE 2 TABLET BY MOUTH ONCE DAILY, Disp: 180 tablet, Rfl: 0 ??? tacrolimus (PROGRAF) 1 mg capsule, Take 1 capsule (1 mg total) by mouth 2 (two) times a day, Disp: 60 capsule, Rfl: 11 ??? tobramycin (TOBREX) 0.3 % ophthalmic solution, Instill 1 drop into surgical eye three times daily starting two days before surgery, Disp: 5 mL, Rfl: 1 ??? trimethoprim (TRIMPEX) 100 mg tablet, Take 100 mg by mouth nightly, Disp: , Rfl: Vitals BP 146/85 Pulse 85 Ht 157.5 cm (5' 2 ) Wt 59 kg (130 lb) BMI 23.78 kg/m?? PHYSICAL EXAM Generally: no acute distress; [...] Results Component Value Date SODIUM 134 (L) 08/30/2013 SCRNA 139 05/03/2019 POTASSIUM 4.7 08/30/2013 SCRK 3.9 05/03/2019 CHLORIDE 104 08/30/2013 CL 104 03/21/2013 SCRCL 107 05/03/2019 CO2 23 08/30/2013 SCRCO2 26 05/03/2019 Anemia eval: Lab Results Component Value Date WBC 3.2 (L) 03/21/2013 SCRWBC 7.1 05/03/2019 HGB 11.0 (L) 03/21/2013 SCRHGB 12.8 05/03/2019 LABPLAT 141 03/11/2013 SCRPLT 116 (A) 05/03/2019 RETIC 0.091 02/20/2013 IRON 46 08/30/2013 TRANSFERSAT 20 08/30/2013 FERRITIN 700 (H) 02/09/2013 FOLATE 12.6 02/20/2013 Renal Function Lab Results Component Value Date BUNSER 15 08/30/2013 BUNSER 22 03/21/2013 BUNSER 20 03/11/2013 SCRBUN 23 (A) 05/03/2019 SCRBUN 26 (A) 04/02/2019 SCRBUN 21 (A) 03/02/2019 CREATININE 0.80 05/03/2019 CREATININE 0.80 04/02/2019 CREATININE 0.90 03/02/2019 GFRAA 48 (L) 03/21/2013 Renal osteo eval: Lab Results Component Value Date CALCIUM 9.1 08/30/2013 SCRCA 9.7 05/03/2019 PHOS 1.8 (L) 03/21/2013 SCRALB 3.7 05/03/2019 Serologies: Lab Results Component Value Date HGBA1C 4.7 02/09/2013 HEPCAB Negative 02/09/2013 No results found for: TACRORDM, TACROLIHS, TACROTR URINALYSIS: Lab Results Component Value Date PHURINE 6.0 08/31/2017 PROTURQL Trace 04/27/2013 GLUCOSEUR Negative 05/26/2019 BLOODUR Negative 08/31/2017 Spot Lab Results Component Value Date PROTUR Negative 05/26/2019 PROTUR Negative 06/09/2018 PROTUR 12.2 04/27/2013 PROTCREAT 0.2 04/27/2013 No results found for: OSMOUR, UREAUR, SODIUMURR, KUR, CLUR, CALCIUMUR Lipids: Lab Results Component Value Date CHOL 151 02/09/2013 HDL 69 02/09/2013 LDL 70 02/09/2013 TRIG 62 02/09/2013 LFTs: Lab Results Component Value Date SCRAST 18 08/03/2018 SCRALT 12 08/03/2018 SCRBILI 0.5 08/03/2018 Coags: Lab Results Component Value Date INR 1.00 03/08/2013 ASSESSMENT & PLAN: 1. 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 The patient's serum creatinine remains lateral and stable. Urinalysis in the office today did show 1+ leukocytes 2. High risk medication/Immunosuppression: The patient is currently on dual immunosuppression therapy and last tacrolimus trough level was not available. She will continue her tacrolimus and prednisone as prescribed. She is to remain off Myfortic due to a history of leukopenia. 3. Infectious disease prophylaxis: The patient is also on acyclovir 200 mg b.i.d. due to a history of shingles. 4. Hypertension: Patient has reasonable BP control 5. Health maintenance: She received her flu shot, is uptodate on cancer screening, and is planning on dermatology follow up DISPOSITION: Return to clinic in 1 year. OL CONDUCTOR documented in this encounter Plan of Treatment Not on file documented as of this encounter Procedures Procedure Name Priority Date/Time Associated Diagnosis Comments POCT URINALYSIS DIPSTICK Routine 05/26/2019 10:28 AM PATROL CONDUCTOR Encounter for aftercare following kidney transplant documented in this encounter Results * (ABNORMAL) POCT urinalysis dipstick (05/26/2019 10:28 AM PATROL CONDUCTOR) Glucose, ur, POC Negative Negative mg/dL Bilirubin, ur, POC Negative Negative, Small, Moderate, Large Ketones, ur, POC Negative Negative Specific [place], POC 1.025 1.005 - 1.030 Blood, ur, POC Negative Negative pH, ur, POC 7.0 5.0 - 8.0 Protein, ur, POC Negative Negative Urobilinogen, urine, POC 0.2 0.2 - 1.0 mg/dL Nitrite, ur, POC Negative Negative Leukocytes, ur, POC 1+(A) Negative Lot Number [id number] Urine 05/26/2019 10:2 8 AM PATROL CONDUCTOR Jessie Man MD POINT OF CARE TEST ORDERABLES F inal Result documented in this encounter Visit Diagnoses Diagnosis Encounter for long-term (current) use of high-risk medication- Primary Encounter for long-term (current) use of other medications Encounter for aftercare following kidney transplant documented in this encounter Discontinued Medications Medication Sig Discontinue Reason Start Date End Da te amLODIPine (NORVASC) 10 mg tablet daily 05/26/2019 estradiol (ESTRACE) 0.01 % (0.1 mg/gram) vaginal cream 12/24/2018 05/26/2019 fluticasone (FLONASE) 50 mcg/actuation nasal spray SHAKE LQ AND U 1 SPR IEN QD 03/19/2018 05/26/2019 hydrocortisone (PROCTOZONE-HC) 2.5 % rectal cream 1 application to affected area 05/26/2019 ketorolac (ACULAR LS) 0.4 % drops Instill 1 drop into surgical eye three times daily starting two days before surgery 03/29/2019 05/26/2019 metoprolol (LOPRESSOR) 25 mg tablet Take 1 tablet (25 mg total) by mouth 2 (two) times a day 12/16/2018 05/26/2019 ondansetron ODT (ZOFRAN-ODT) 4 mg disintegrating tablet 05/26/2019 oxybutynin XL (DITROPAN-XL) 10 mg 24 hr tablet Take 10 mg by mouth daily 05/26/2019 prednisoLONE acetate (PRED FORTE) 1 % ophthalmic suspension Instill 1 drop into surgical eye three times daily starting after surgery 03/29/2019 05/26/2019 documented as of this encounter Historical Medications * This list may reflect changes made after this encounter. predniSONE (DELTASONE) 5 mg tablet Take 5 mg by mouth daily 06/16/2019 metoprolol (LOPRESSOR) 25 mg tablet Take 25 mg by mouth 2 (two) times a day 12/26/2019 added in this encounter Care Teams Certified Real Estate Appraiser Relationship Specialty Start Date End Date Burke Rosenberg DO [address] [facility] [address] [place] [address] PCP - General 10/09/16 02/19/20 Gregg Peace, DEREK [address] [facility] [address] [place] [address] Curbstone Setter Transplant 01/26/1907/04 documented as of this encounter
--- OUTSIDE RECORDS SUMMARY | 2024-06-27 01:55 | XMS_ITS | Encounter Summary ---
Author Organization [facility] Healthcare Address [address] [place] [address] Care Team Providers Care Roofing Contractor Name Role Phone Burke Rosenberg DO Primary Care Provider [phone] Gregg Peace RN Unavailable [phone] Encounter Details Date Type Department Care Team (Late st Contact Info) Description 07/07/2019 Telephone [facility] Transplant Kidney [address] [facility] [address] [phone] [place], [place] [phone] Gregg ePace RN [address] [facility] [address] [place], [place] [id number] Social History Tobacco Use Types Packs/Day Years Used Date Smoking Tobacco: Never Smokeless Tobacco: Never Alcohol Use Standard Drinks/Week Comments No 0 (1 standard drink = 0.6 oz pur e alcohol) Comments No Sex and Gender Information Value Date Recorded Sex Assigned at Not on file Legal Sex 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 DELIVERY AND INSTALLATION SUBCONTRACTOR Gender Identity Not on file Sexual Orientation Not on file documented as of this encounter Ordered Prescriptions Prescription Sig Dispense Quantity Refills Last Filled Start Date End Date amoxicillin-clavul anate (AUGMENTIN) 500-125 mg per tablet Take 1 tablet by mouth 2 (two) times a day for 10 days 20 tablet 07/07/2019 07/17/2019 documented in this encounter Miscellaneous Notes * Telephone Encounter - Gregg Peace RN - 07/07/2019 4:27 PM DELIVERY AND INSTALLATION SUBCONTRACTOR Noted UCx, pt is symptomatic. Revd w/Dr. Wynn Plan for augmentin 500mg BID x10d. Spoke to pt, verbalizes understanding. VERY AND INSTALLATION SUBCONTRACTOR documented in this encounter Plan of Treatment Not on file documented as of this encounter Visit Diagnoses Not on filedocumented in this encounter Care Teams Roofing Contractor Relationship Specialty Start Date End Date Burke Rosenberg DO [address] [facility] [address] [place] [address] PCP - General 10/09/16 02/19/20 Gregg Peace RN [address] [facility] [address] [place] [address] Manager Environmental Transplant 01/26/1907/04 documented as of this encounter
--- OUTSIDE RECORDS SUMMARY | 2024-06-27 01:55 | XMS_ITS | Encounter Summary ---
Author Organization [facility] Address [address] [place] [address] Care Team Providers Care Firer Locomotive Name Role Phone Gregg Peace RN Unavailable [phone] Regina Contreras RN Unavailable [phone] Merlin Biggs MD Primary Care Provider [phone] Encounter Details Date Type Department Care Team (Late st Contact Info) Description 02/20/2020 Telephone [facility] Transplant Kidney [address] [address] [address] [phone] [place] [address] Liss Huynh Social History Tobacco Use Types Packs/Day Years Used Date Smoking Tobacco: Never Smokeless Tobacco: Never Alcohol Use Standard Drinks/Week Comments No 0 (1 standard drink = 0.6 oz pur e alcohol) Comments No Sex and Gender Information Value Date Recorded Sex Assigned at Not on file Legal Sex 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 CRITICAL CARE PHYSICIAN ASSISTANT Gender Identity Not on file Sexual Orientation Not on file documented as of this encounter Miscellaneous Notes * Telephone Encounter - Paola Guillory - 02/20/2020 1:27 PM CDT Done * Telephone Encounter - Liss Huynh - 02/20/2020 10:31 AM CDT Pt. Called said that her PCP has changed to Dr. Merlin Biggs phone no. [phone], fax [phone] please update. documented in this encounter Plan of Treatment Not on file documented as of this encounter Visit Diagnoses Not on filedocumented in this encounter Care Teams Firer Locomotive Relationship Specialty Start Date End Date Merlin Biggs MD [address] [place] [address] PCP - General Internal Medicine 02/20/20 11/02/22 Gregg Peace, RN Printed Circuit Boards Contact Printer Transplant 01/26/1907/04 Regina Contreras RN Printed Circuit Boards Contact Printer 12/07/19 documented as of this encounter
--- OUTSIDE RECORDS SUMMARY | 2024-06-27 01:55 | XMS_ITS | Encounter Summary ---
Author Organization [facility] Healthcare Address [address] [place] [address] Care Team Providers Care Web Services Professional Name Role Phone Burke Rosenberg DO Primary Care Provider [phone] Gregg Peace RN Unavailable [phone] Encounter Details Date Type Department Care Team (Late st Contact Info) Description 10/31/2019 Telephone [facility] Transplant Kidney [address] [facility] [address] [phone] [place] [address] Hernando Davila Social History Tobacco Use Types Packs/Day Years Used Date Smoking Tobacco: Never Smokeless Tobacco: Never Alcohol Use Standard Drinks/Week Comments No 0 (1 standard drink = 0.6 oz pur e alcohol) Comments No Sex and Gender Information Value Date Recorded Sex Assigned at Not on file Legal Sex 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 INSTRUCTIONAL DESIGN SPECIALIST Gender Identity Not on file Sexual Orientation Not on file documented as of this encounter Miscellaneous Notes * Telephone Encounter - Hernando Davila - 10/31/2019 1:55 PM CDT Mon 10:52 pt LM stating that she did not go to lab last month. Wants to know if she should go for October draw. Does not want to go. Please advise. Elida Contreras RN: Called pt back and let her know that she can wait until November, ask that when so go to her lab to makean appointment, ask for them to draw her quarterly labs and wear a mask. She states she will. documented in this encounter Plan of Treatment Not on file documented as of this encounter Visit Diagnoses Not on filedocumented in this encounter Care Teams Web Services Professional Relationship Specialty Start Date End Date Burke Rosenberg DO [address] [facility] [address] [place] [address] PCP - General 10/09/16 02/19/20 Gregg Peace RN [address] [facility] [address] [place] [address] Vp Of Marketing Transplant 01/26/1907/04 documented as of this encounter
--- OUTSIDE RECORDS SUMMARY | 2024-06-27 01:55 | XMS_ITS | Encounter Summary ---
Author Organization [facility] Address [address] [place] [address] Phone Care Team Providers Care Portfolio Management Marketing Name Role Phone Burke Rosenberg DO Primary Care Provider Gregg Peace RN Unavailable [phone] Reason for Visit * Reason Comments Follow-up Encounter Details Date Type Department Care Team (Late st Contact Info) Description 09/15/2019 10:15 AM CDT Office Visit [facility] Ophthalmology [address] [place] [address] Butch Maria MD [address] [place] [address] Pseudophakia of both eyes (Primary Dx) Social History Tobacco Use Types Packs/Day Years Used Date Smoking Tobacco: Never Smokeless Tobacco: Never Alcohol Use Standard Drinks/Week Comments No 0 (1 standard drink = 0.6 oz pur e alcohol) Comments No Sex and Gender Information Value Date Recorded Sex Assigned at Not on file Legal Sex 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 SEWAGE PLANT OPERATOR Gender Identity Not on file Sexual Orientation Not on file COVID-19 Exposure Response Date Recorded In the last month, have you been in contact with someone who was confirmed or suspected to have Coronavirus / COVID-19? 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 Return in 1 year or prn. documented in this encounter Plan of Treatment Not on file documented as of this encounter Visit Diagnoses Diagnosis Pseudophakia of both eyes- Primary Lens replaced by other means documented in this encounter Historical Medications * This list may reflect changes made after this encounter. rivaroxaban (XARELTO) 10 mg tablet Take 10 mg by mouth daily 03/20/2020 added in this encounter Eye Exam Visual Acuity (Snellen - Linear) Right eye Left eye Dist sc 20/25 20/20 -1 Dist cc 20/25 20/25 + Correction: Glasses Tonometry (Tonopen, 10:50 AM) Right eye Left eye Pressure 23 22 PATIENT HAS VASCULITIS HURTS TO PUT HER CHIN IN THE SLITLAMP Pupils Dark Light Shape APD Right eye 3 2 Round None Left eye 3 2 Round None Extraocular Movement Right eye Left eye Full, Ortho Full, Ortho Neuro/Psych Oriented x3: Yes Mood/Affect: Normal Dilation Both eyes: 1.0% Mydriacyl @ 10:50 AM External Exam Right eye Left eye [...] Ratio 0.0 0.0 Macula Normal Normal Vessels Normal Normal Periphery RPE changes RPE changes Care Teams Portfolio Management Marketing Relationship Specialty Start Date End Date Burke Rosenberg DO [address] [facility] [address] [place] [id number] PCP - General 10/09/16 02/19/20 Gregg Peace, RN [address] [place] [address] Channel Cementer Outsole Machine Transplant 01/26/1907/04 documented as of this encounter
--- OUTSIDE RECORDS SUMMARY | 2024-06-27 01:55 | XMS_ITS | Encounter Summary ---
Author Organization [facility] Address [address] [place] [address] Care Team Providers Care Pick Up Driver Name Role Phone Gregg Peace RN Unavailable [phone] Regina Contreras RN Unavailable Merlin Biggs MD Primary Care Provider [phone] Encounter Details Date Type Department Care Team (Late st Contact Info) Description 03/06/2020 Orders Only [facility] Health Information Management [address] [place] [address] Scanning, Provider Social History Tobacco Use Types Packs/Day Years Used Date Smoking Tobacco: Never Smokeless Tobacco: Never Alcohol Use Standard Drinks/Week Comments No 0 (1 standard drink = 0.6 oz pur e alcohol) Comments No Sex and Gender Information Value Date Recorded Sex Assigned at Not on file 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 Gender Identity Not on file Sexual Orientation Not on file documented as of this encounter Plan of Treatment Not on file documented as of this encounter Procedures Procedure Name Priority Date/Time Associated Diagnosis Comments SCAN - LABS 03/06/2020 11:10 AM CDT documented in this encounter Results * SCAN - LABS (03/06/2020 11:10 AM CDT) us Provider Scanning Final Result documented in this encounter Visit Diagnoses Not on filedocumented in this encounter Care Teams Pick Up Driver Relationship Specialty Start Date End Date Merlin Biggs MD [address] [place] [address] PCP - General Internal Medicine 02/20/20 11/02/22 Gregg Peace RN Wrist Liner Transplant 01/26/1907/04 Regina Contreras RN Wrist Liner 12/07/19 documented as of this encounter
--- OUTSIDE RECORDS SUMMARY | 2024-06-27 01:55 | XMS_ITS | Encounter Summary ---
Author Organization [facility] Healthcare Address [address] [place] [address] Care Team Providers Care Meat Carver Name Role Phone Burke Rosenberg DO Primary Care Provider Gregg Peace RN Unavailable [phone] Encounter Details Date Type Department Care Team (Late st Contact Info) Description 10/04/2019 Telephone [facility] Kidney [phone] [place] [address] Hernando Davila Social History Tobacco Use Types Packs/Day Years Used Date Smoking Tobacco: Never Smokeless Tobacco: Never Alcohol Use Standard Drinks/Week Comments No 0 (1 standard drink = 0.6 oz pur e alcohol) Comments No Sex and Gender Information Value Date Recorded Sex Assigned at Not on file Legal Sex 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 BOTTLE BLOWER Gender Identity Not on file Sexual Orientation Not on file COVID-19 Exposure Response Date Recorded In the last month, have you been in contact with someone who was confirmed or suspected to have Coronavirus / COVID-19? No / Unsure 09/15/2019 10:10 AM CDT documented as of this encounter Miscellaneous Notes * Telephone Encounter - Hernando Davila - 10/04/2019 1:46 PM CDT error documented in this encounter Plan of Treatment Not on file documented as of this encounter Visit Diagnoses Not on filedocumented in this encounter Care Teams Meat Carver Relationship Specialty Start Date End Date Burke Rosenberg DO [address] [facility] [address] [place] [address] PCP - General 10/09/16 02/19/20 Gregg Peace RN [address] [facility] [address] [place] [address] Dater Assembler Transplant 01/26/1907/04 documented as of this encounter
--- OUTSIDE RECORDS SUMMARY | 2024-06-27 01:55 | XMS_ITS | Encounter Summary ---
Author Organization [facility] Healthcare Address [address] [place] [address] Care Team Providers Care Electromagnet Crane Operator Name Role Phone Burke Rosenberg DO Primary Care Provider [phone] rGegg Peace RN Unavailable [phone] Regina Contreras RN Unavailable [phone] Encounter Details Date Type Department Care Team (Late st Contact Info) Description 12/05/2019 Telephone [facility] Transplant Kidney [phone] [place] [address] Margaret Szymanski Social History Tobacco Use Types Packs/Day Years Used Date Smoking Tobacco: Never Smokeless Tobacco: Never Alcohol Use Standard Drinks/Week Comments No 0 (1 standard drink = 0.6 oz pur e alcohol) Comments No Sex and Gender Information Value Date Recorded Sex Assigned at Not on file 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 Sex 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 REAL 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 - 12/05/2019 8:59 AM CDT Labs 12/03/2019. Vitals entered. documented in this encounter Plan of Treatment Not on file documented as of this encounter Visit Diagnoses Not on filedocumented in this encounter Care Teams Electromagnet Crane Operator Relationship Specialty Start Date End Date Burke Rosenberg DO [address] [place] [address] PCP - General 10/09/16 02/19/20 Gregg Peace RN [address] [place] [address] Gullet Slitter Transplant 01/26/1907/04 Regina Contreras, DEREK Gullet Slitter 12/07/19 documented as of this encounter
--- OUTSIDE RECORDS SUMMARY | 2024-06-27 01:55 | XMS_ITS | Encounter Summary ---
Author Organization [facility] Healthcare Address [address] [place] [address] Care Team Providers Care Electronic Video Games Servicer Name Role Phone Burke Rosenberg DO Primary Care Provider Gregg Peace RN Unavailable [phone] Encounter Details Date Type Department Care Team (Late st Contact Info) Description 09/19/2019 Orders Only [facility] Health Information Management [address] [place] [address] Scanning, Provider Social History Tobacco Use Types Packs/Day Years Used Date Smoking Tobacco: Never Smokeless Tobacco: Never Alcohol Use Standard Drinks/Week Comments No 0 (1 standard drink = 0.6 oz pur e alcohol) Comments No Sex and Gender Information Value Date Recorded Sex Assigned at Not on file 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
--- OUTSIDE RECORDS SUMMARY | 2024-06-27 01:55 | XMS_ITS | Encounter Summary ---
Author Organization [facility] Healthcare Address [address] [place] [address] Care Team Providers Care Estimator Printing Name Role Phone Burke Rosenberg DO Primary Care Provider Gregg Peace RN Unavailable [phone] Encounter Details Date Type Department Care Team (Late st Contact Info) Description 05/31/2019 Orders Only [facility] Health Information Management [address] [place] [address] Scanning, Provider Social History Tobacco Use Types Packs/Day Years Used Date Smoking Tobacco: Never Smokeless Tobacco: Never Alcohol Use Standard Drinks/Week Comments No 0 (1 standard drink = 0.6 oz pur e alcohol) Comments No Sex and Gender Information Value Date Recorded Sex Assigned at Not on file Legal Sex 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 CLAIM CLERK Gender Identity Not on file Sexual Orientation Not on file documented as of this encounter Plan of Treatment Not on file documented as of this encounter Procedures Procedure Name Priority Date/Time Associated Diagnosis Comments SCAN - LABS 05/31/2019 5:02 PM CLAIM CLERK documented in this encounter Results * SCAN - LABS (05/31/2019 5:02 PM CLAIM CLERK) us Provider Scanning Final Result documented in this encounter Visit Diagnoses Not on filedocumented in this encounter Care Teams Estimator Printing Relationship Specialty Start Date End Date Burke Rosenberg DO [address] [address] PCP - General 10/09/16 02/19/20 Gregg Peace RN [address] [address] Fish Hatchery Superintendent Transplant 01/26/1907/04 documented as of this encounter
--- OUTSIDE RECORDS SUMMARY | 2024-06-27 01:55 | XMS_ITS | Encounter Summary ---
Author Organization [facility] Healthcare Address [address] [place] [address] Care Team Providers Care Architectural Examiner Name Role Phone Burke Rosenberg DO Primary Care Provider [phone] Gregg Peace RN Unavailable [phone] Regina Contreras RN Unavailable [phone] Encounter Details Date Type Department Care Team (Late st Contact Info) Description 01/31/2020 Orders Only [facility] Health Information Management [address] [place] [address] Scanning, Provider Social History Tobacco Use Types Packs/Day Years Used Date Smoking Tobacco: Never Smokeless Tobacco: Never Alcohol Use Standard Drinks/Week Comments No 0 (1 standard drink = 0.6 oz pur e alcohol) Comments No Sex and Gender Information Value Date Recorded Sex Assigned at Not on file Legal Sex 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 CNC MILL OPERATOR Gender Identity Not on file Sexual Orientation Not on file documented as of this encounter Plan of Treatment Not on file documented as of this encounter Procedures Procedure Name Priority Date/Time Associated Diagnosis Comments SCAN - LABS 01/31/2020 2:44 PM CDT documented in this encounter Results * SCAN - LABS (01/31/2020 2:44 PM CDT) us Provider Scanning Final Result documented in this encounter Visit Diagnoses Not on filedocumented in this encounter Care Teams Architectural Examiner Relationship Specialty Start Date End Date Burke Rosenberg, [address] [place] [address] PCP - General 10/09/16 02/19/20 Gregg Peace RN [address] [facility] [address] [place], [place] [id number] Commercial Front Load Driver Transplant 01/26/1907/04 Regina Contreras RN Commercial Front Load Driver 12/07/19 documented as of this encounter
--- OUTSIDE RECORDS SUMMARY | 2024-06-27 01:55 | XMS_ITS | Encounter Summary ---
Author Organization [facility] Healthcare Address [address] [place] [address] Care Team Providers Care Bottle House Quality Control Technician Name Role Phone Burke Rosenberg DO Primary Care Provider Gregg Peace RN Unavailable [phone] Encounter Details Date Type Department Care Team (Late st Contact Info) Description 09/01/2019 Orders Only [facility] Health Information Management [address] [place] [address] Scanning, Provider Social History Tobacco Use Types Packs/Day Years Used Date Smoking Tobacco: Never Smokeless Tobacco: Never Alcohol Use Standard Drinks/Week Comments No 0 (1 standard drink = 0.6 oz pur e alcohol) Comments No Sex and Gender Information Value Date Recorded Sex Assigned at Not on file Legal Sex 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 EXECUTIVE SALES MANAGER Gender Identity Not on file Sexual Orientation Not on file documented as of this encounter Plan of Treatment Not on file documented as of this encounter Procedures Procedure Name Priority Date/Time Associated Diagnosis Comments SCAN - LABS 09/01/2019 8:43 AM EXECUTIVE SALES MANAGER documented in this encounter Results * SCAN - LABS (09/01/2019 8:43 AM EXECUTIVE SALES MANAGER) us Provider Scanning Final Result documented in this encounter Visit Diagnoses Not on filedocumented in this encounter Care Teams Bottle House Quality Control Technician Relationship Specialty Start Date End Date Burke Rosenberg DO [address] [address] PCP - General 10/09/16 02/19/20 Gregg Peace RN [address] [address] Water Treatment Operator Transplant 01/26/1907/04 documented as of this encounter
--- OUTSIDE RECORDS SUMMARY | 2024-06-27 01:55 | XMS_ITS | Encounter Summary ---
Author Organization [facility] Address [address] [place] [address] Care Team Providers Care Mortgage Field Inspector Name Role Phone Gregg Peace RN Unavailable Regina Contreras RN Unavailable Merlin Nunez MD Primary Care Provider [phone] Rosana Nunez MD Unavailable [phone] Reason for Visit * Reason Comments Fall Transfer - Unstable C2 Fracture Encounter Details Date Type Department Care Team (Latest Contact Info) Description 03/19/2020 8:19 PM CDT - 03/28/2020 2:15 AM CDT Hospital Encounter [facility] [address] [place] [address] Garth Vargas MD [address] [facility] [address] [place] [address] Giselle Wiley MD [address] [facility] [address] [place] [address] Deacon Shashi Alegre MD [address] [place] [address] Pedro Salmon MD [address] [place] [address] Fall, initial encounter (Primary Dx); Closed nondisplaced fracture of second cervical vertebra, unspecified fracture morphology, initial encounter (CMS/[facility]); Diagnosis unknown; Closed traumatic minimally displaced fracture of second cervical vertebra, initial encounter (CMS/[facility]); Injury to ligament of cervical spine, initial encounter; Acute pain due to trauma Discharge Disposition: Discharge to an Rehab facility Social History Tobacco Use Types Packs/Day Years Used Date Smoking Tobacco: Never Smokeless Tobacco: Never Alcohol Use Standard Drinks/Week Comments No 0 (1 standard drink = 0.6 oz pur e alcohol) Comments No Sex and Gender Information Value Date Recorded Sex Assigned at Not on file 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 Gender Identity Not on file Sexual Orientation Not on file documented as of this encounter Last Filed Vital Signs Vital Sign Reading Time Taken Comments Blood Pressure 162/85 03/27/2020 11:19 PM CDT Pulse 71 03/27/2020 11:19 PM CDT Temperature 36.4 ??C (97.6 ??F) 03/27/2020 11:19 PM C DT Respiratory Rate 16 03/27/2020 11:19 PM CDT Oxygen Saturation 97% 03/27/2020 11:19 PM CDT Inhaled Oxygen Concentration - - Weight 60 kg (132 lb 4.4 oz) 03/19/2020 8:28 PM CDT Height 157.5 cm (5' 2 ) 03/19/2020 8:28 PM CDT Body Mass Index 24.19 03/19/2020 8:28 PM CDT documented in this encounter Discharge Diagnoses Diagnosis Other displaced fracture of second cervical vertebra, initial encounter for closed fracture (HCC) - OTHER DISPLACED FRACTURE OF SECOND CERVICAL VERTEBRA, INITIAL ENCOUNTER FOR CLOSED FRACTURE Kidney transplant status - KIDNEY TRANSPLANT STATUS Atelectasis - ATELECTASIS Pulmonary collapse Urinary tract infection, site not specified - URINARY TRACT INFECTION, SITE NOT SPECIFIED Other fracture of second thoracic vertebra, initial encounter for closed fracture (HCC) - OTHER FRACTURE OF SECOND THORACIC VERTEBRA, INITIAL ENCOUNTER FOR CLOSED FRACTURE Other fracture of third thoracic vertebra, initial encounter for closed fracture (HCC) - OTHER FRACTURE OF THIRD THORACIC VERTEBRA, INITIAL ENCOUNTER FOR CLOSED FRACTURE Fall from bed, initial encounter - FALL FROM BED, INITIAL ENCOUNTER Do not resuscitate - DO NOT RESUSCITATE Laceration without foreign body of left hand, initial encounter - LACERATION WITHOUT FOREIGN BODY OF LEFT HAND, INITIAL ENCOUNTER Striking against other object with subsequent fall, initial encounter - STRIKING AGAINST OTHER OBJECT WITH SUBSEQUENT FALL, INITIAL ENCOUNTER Bedroom in other non-institutional residence as the place of occurrence of the external cause - BEDROOM IN OTHER NON-INSTITUTIONAL RESIDENCE THE PLACE OF OCCURRENCE OF THE EXTERNAL CAUSE Atherosclerotic heart disease of [place] coronary artery without angina pectoris - ATHEROSCLEROTIC HEART DISEASE OF [place] CORONARY ARTERY WITHOUT ANGINA PECTORIS Gastro-esophageal reflux disease without esophagitis - GASTRO-ESOPHAGEAL REFLUX DISEASE WITHOUT ESOPHAGITIS Hyperlipidemia, unspecified - HYPERLIPIDEMIA, UNSPECIFIED Hypothyroidism, unspecified - HYPOTHYROIDISM, UNSPECIFIED Essential (primary) hypertension - ESSENTIAL (PRIMARY) HYPERTENSION Unspecified essential hypertension Spinal instabilities, cervical region - SPINAL INSTABILITIES, CERVICAL REGION Hyperkalemia - HYPERKALEMIA Hyperpotassemia Acute pain due to trauma - ACUTE PAIN DUE TO TRAUMA Unspecified hearing loss, unspecified ear - UNSPECIFIED HEARING LOSS, UNSPECIFIED EAR Diaphragmatic hernia without obstruction or gangrene - DIAPHRAGMATIC HERNIA WITHOUT OBSTRUCTION OR GANGRENE Diaphragmatic hernia without mention of obstruction or gangrene 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 - OTHER CERVICAL DISC DEGENERATION AT C4-C5 LEVEL Personal history of other infectious and parasitic diseases - PERSONAL HISTORY OF OTHER INFECTIOUS AND PARASITIC DISEASES Personal history of urinary (tract) infections - PERSONAL HISTORY OF URINARY (TRACT) INFECTIONS Other intermediate frame tender (current) drug therapy - OTHER LONG-TERM (CURRENT) DRUG THERAPY Hormone replacement therapy - HORMONE REPLACEMENT THERAPY intermediate (current) use of anticoagulants - LONG-TERM (CURRENT) USE OF ANTICOAGULANTS Long-term (current) use of anticoagulants intermediate frame tender (current) use of aspirin - LONG-TERM (CURRENT) USE OF ASPIRIN intermediate (current) use of systemic steroids - MARKET DEVELOPMENT SPECIALIST (CURRENT) USE OF SYSTEMIC STEROIDS Contact with and (suspected) exposure to other viral communicable diseases - CONTACT WITH AND (SUSPECTED) EXPOSURE TO OTHER VIRAL COMMUNICABLE DISEASES documented in this encounter Discharge Summaries * Jocelynn Otero NP - 03/28/2020 1:27 PM CDT [facility] Geriatric Trauma Surgery Inpatient Discharge Summary This is a clinical resume for patient Juliet A Biesemeyer for attending Deacon Shashi Alegre MD Admission Date: 03/19/2020 Admitting Provider: Deacon Shashi Alegre MD Discharge Date: 03/28/2020 Hospitalization: Total duration of encounter: 9 days Team: Geriatric Trauma Surgery Primary Care Provider: Merlin Nunez MD Discharge Diagnosis(es): Principal Problem: Traumatic closed fracture of C2 vertebra with minimal displacement (CMS/HCC) Active Problems: History of kidney transplant Injury to ligament of cervical spine Acute pain due to trauma HTN (hypertension) CAD (coronary artery disease) Hypothyroidism Chronic UTI Resolved Problems: No resolved hospital problems. Hospital Course: Clinical Course: improved History of Present Illness: Juliet Dunlap??is a 85 y.o.??female??with a past medical history??kidney transplant in 2012,??CAD, HTN, hypothyroidism, HBV, GERD, hiatal hernia, HLD??who presented as a transfer??from[facility]??with C2 comminuted??vertebral body fracture??with extension to bilateral??masses and r ight foramen, C4/5 anterolisthesis. She??was noted to be??neuro intact. Head CT scan reportedly without acute abnormality. There was no other??concern for other injury based on exam. Patient ambulated after the??event.??Upon presentation the patient was evaluated by orthopedic spine surgery who recommended non operative management in a Alutiiq J collar. CTA demonstrated no large vessel occlusion or vascular injury.??Renal transplant was consulted and home medications were continued. Patient was admitted to the floor for therapy evaluation.??Patient progressed and now medically ready to discharge to Inpatient Rehab. Active Issues Requiring Follow Up: #C2 vertebral body fx extending into the pedicle/transverse foramen and C1-C2 facet joint #C2 anterolateral ligament injury + trace epidural hematoma - Ortho-Spine consulted - CTA Head and Neck neg for vascular injury - Nonoperative management - Strict cervical precautions- given - Alutiiq J collar placed, removed daily for skin checks and hygiene - Uprights completed - PT/OT - Pain control - Follow up with Ortho spine Dr. Barahona in 1 week for repeat C-spine CT ?? #T2/T3 vertebral body fractures - Ortho-Spine consulted - CT T/L spine- likely chronic ?? #Acute pain due to trauma - APAP q6 and - oxy PRN (decreased to 2.5mg), dc'd - started Tramadol - flexeril PRN ?? #Kidney transplant - Renal Transplant consulted - 03/21: Tacrolimus level 17.6-9.1-5.9-6.0-7.0-6.9 - 03/28 Tac level 6.3 - Daily??AM tacrolimus level - restarted Tacrolimus 0.5mg q 12hrs - Continue??prednisone??5 mg daily - Continue acyclovir 200 mg BID for history of shingles - head start coordinator to contact patient and rehab with follow appointment and labs ## Patient instructed to follow up with PCP in 1-2 weeks for hospital follow up and medication review ?? #HTN - Continue home metop 50 BID, lisinopril 10 - 03/21: Increased metoprolol to 75mg BID - vitals q4h ?? #CAD - ASA 81 - Continue home lipitor ?? #hypothyroidism - Continue home synthroid 100 ?? #h/o multiple UTIs - Continue home trimethoprim 100 - UA +, Culture from 03/19 Coag negative staph - Culture 03/21 NGTD ?? #DVT PPx: Lovenox Operative Procedures Performed: Procedure name not found. Extraction Cataract - Phacoemulsification And Lens Implant - Right Consultations: Orthopedic Spine Surgery Discharge Physical Exam: Discharge Condition: good Pulse: 71 Resp: 16 BP: 154/71 Temp: 37 ??C (98.6 ??F) Weight: 60 kg (132 lb 4.4 oz) Constitutional: well developed, well nourished, cooperative and no apparent distress Head: normocephalic, without obvious abnormality, atraumatic Neurologic: alert and oriented x4 sensation intact all extremities motor 5/5 all extremities Eyes: conjunctivae/corneas clear. PERRL, EOMs intact HENT: mucous membranes moist and lips, mucosa, and tongue normal Neck: c-collar in place Chest: normal appearance, no masses or tenderness Respiratory: clear to auscultation bilaterally and normal chest rise and fall Cardiovascular: regular rate, regular rhythm and systolic murmur Gastrointestinal: bowel sounds present, non-distended and soft non-tender Musculoskeletal: extremities normal, warm and well-perfused and no edema Pulses: radial: bilateral normal and DP: bilateral normal Skin: skin color, texture, turgor normal. No rashes or lesions or ecchymosis noted to right distal neck Diet: Diet Instructions Adult Discharge Diet Diet Type: Return to previous diet Regular diet. Add nutrition supplements (ensure, boost, instant carnation breakfast) two to three times daily until appetite returns. Discharge Disposition: Discharge to home or self care Code Status at Discharge: Partial Activity: Activity Instructions Discharge Activity: Additional Activity Restrictions: Cervical Spine Precautions- No range of motion at the neck. No pulling with upper extremities. No lifting more than 5-10lbs. No pillows causing neck flexion. Discharge Activity: Driving restrictions -Do not drive. Discharge Activity: Lifting restrictions -Do NOT lift greater than 10 pounds until cleared by orthospine . Discharge Activity: Stairs -You may climb stairs as tolerated with assist Discharge Activity: Walking -You may walk as tolerated. Keep Cervical collar on at all times. -Continue exercises and safety precaution instructed by PT/OT -Walk three times daily and as tolerated. -Up to the chair three times daily and as tolerated. -Up for all meals Weight bearing status Restrictions RUE: Weight Bearing as Tolerated Restrictions LUE: Weight Bearing as Tolerated Restrictions RLE: Weight Bearing as Tolerated Restrictions LLE: Weight Bearing as Tolerated no lifting, Driving, or Strenuous exercise for until cleared by Orthopedic Spine Right Upper ExtremityWeight bearing as tolerated Left Upper ExtremityWeight bearing as tolerated Right Lower ExtremityWeight bearing as tolerated Left Lower ExtremityWeight bearing as tolerated Wound Care: Carries out hygiene routine on a regular basis Discharge Medications: Your medication list START taking these medications acetaminophen 500 mg capsule Take 2 capsules (1,000 mg total) by mouth every 6 (six) hours benzocaine 10 % mucosal gel Apply to the mouth or throat 3 (three) times a day as needed for mucositis Commonly known as: ORAJEL cyclobenzaprine 5 mg tablet Take 1 tablet (5 mg total) by mouth 3 (three) times a day as needed for muscle spasms Commonly known as: FLEXERIL enoxaparin 30 mg/0.3 mL syringe Inject 0.3 mL (30 mg total) under the skin every 12 (twelve) hours Commonly known as: LOVENOX gabapentin 300 mg capsule Take 1 capsule (300 mg total) by mouth 2 (two) times a day Commonly known as: NEURONTIN lidocaine 5 % Place 2 patches on the skin daily Remove & discard patch within 12 hours or as directed by MD. Commonly known as: LIDODERM Start taking on: March 29, 2020 polyethylene glycol 17 gram packet Take 1 packet (17 g total) by mouth daily Commonly known as: MIRALAX Start taking on: March 29, 2020 senna-docusate 8.6-50 mg Take 2 tablets by mouth 2 (two) times a day Commonly known as: PERICOLACE traMADoL 50 mg tablet Take 1 tablet (50 mg total) by mouth 4 (four) times a day as needed for pain Commonly known as: ULTRAM CHANGE how you take these medications cholecalciferol 2000 unit tablet Take 1 tablet (2,000 Units total) by mouth daily. Commonly known as: VITAMIN D-3 What changed: when to take this metoprolol tartrate 75 mg tablet immediate release tablet Take 1 tablet (75 mg total) by mouth 2 (two) times a day Commonly known as: LOPRESSOR What changed: medication strength how much to take tacrolimus 0.5 mg capsule Take 1 capsule (0.5 mg total) by mouth every 12 (twelve) hours Commonly known as: PROGRAF What changed: medication strength how much to take when to take this trimethoprim 100 mg tablet Take 1 tablet (100 mg total) by mouth nightly Commonly known as: TRIMPEX What changed: how much to take CONTINUE taking these medications acyclovir 200 mg capsule Commonly known as: ZOVIRAX aspirin 81 mg enteric coated tablet cyanocobalamin 100 mcg tablet Commonly known as: Vitamin B-12 levothyroxine 100 mcg tablet TAKE 1 TABLET(100 MCG) BY MOUTH MACHINE OR MACHINERY MECHANIC AND BEFORE BREAKFAST Commonly known as: SYNTHROID lisinopriL 10 mg tablet Take 1 tablet (10 mg total) by mouth property management intern before breakfast Commonly known as: PRINIVIL,ZESTRIL pravastatin 20 mg tablet Commonly known as: PRAVACHOL predniSONE 5 mg tablet Take 1 tablet (5 mg) by mouth property management intern before breakfast Commonly known as: DELTASONE STOP taking these medications biotin 1 mg tablet tobramycin 0.3 % ophthalmic solution Commonly known as: TOBREX Discharge Instructions: Other Instructions Ambulatory referral to Home Health Service Line: Home Health Primary disciplines requested: [facility] Physical Therapy Home Health Services: Therapy to Eval/ Treat Wound/ Ostomy Care Evaluate Physician to follow patient's care (the person listed here will be responsible for signing ongoing orders): PCP Requested Start of Care Date: Within 2 - 3 Days I attest that I or another qualified licensed provider saw the patient 90 days prior to or 30 days post admission and this face to face encounter meets the necessary Home Health requirements. The face to face encounter occurred on (date): 03/22/2020 The encounter with the patient was in whole, or in part, for the following medical condition, whichis the primary reason for home health care. (List medical condition): cervical fracture, hx renal transplant with multiple UTI I certify that, based on my findings, the following services are medically necessary skilled home health services: Therapy to Eval/ Treat Wound/ Ostomy Care Evaluate Clinical findings that support the need for home care: Medical condition requiring skilled assessment/education Frequent falls requiring safety eval/therapy I certify that my clinical findings support patient's homebound status. Homebound criteria met because: Poor endurance Requires assistance of another to leave home safely Pain with minimal activity or rest Abnormal gait/unsteady balance resulting in fall risk Brace Brace to be on: at all times Location/type: Other Explanatory Comment: Neck Call provider for: Please contact the Trauma Department if any problems develop, please call the Trauma phone [phone] during the week or after hours, and ask to speak to the Trauma [employer] or resident trigonometry teacher. Please be aware all medications including narcotic pain medications cannot be called in over the phone. To refill, an appointment will need to be made with the appropriate medical or surgical service. You mayfollow up with your primary care physician for long-term management of medications and long-term medical conditions. For an appointment with the Trauma Clinic, Please call [phone] during normal business hours. Call provider for: increased temperature -Temperature greater than 101 degrees F Call provider for: nausea, vomiting, diarrhea -If you have persistent nausea, vomiting or diarrhea that does not stop Call provider for: redness, tenderness, or signs of infection (pain, swelling, redness, odor or green/yellow discharge around incision site) Call provider for: severe uncontrolled pain Call provider for: any other concerns or questions For any questions or concerns about Neck fracture please call Orthopedic Spine Surgery [phone] For any questions or concerns about her Kidneys, labs or immunosuppression medication [facility] [phone] Call provider if: you feel dizzy, very tired or like you may faint Care Instructions: You will need to wear your cervical collar brace on your neck for several weeks, until you have been cleared by your Neurosurgery/ Orthopedic Spine Surgery to have it removed. This may be for 6-8 weeks. Keep brace fasten properly for snug fit. Do not remove your brace for any reason other than cleaning the pads and checking the skin of the neck to assess for breakdown. To clean the pads, you mustlay flat, without a pillow under your head and have another person assist you. 1.Undue the velcro straps, and detach the front piece, keeping the back piece in place. 2. Have your partner remove the pads 3. Replace the pads with extra pad set, and then replace front piece of the collar to the frontof your neck for stability. 4. Log roll your body to the side and have your partner repeat this same process for the back piece of the brace. 5.Close velcro straps. 5. Clean soiled used pads with soap and water, allowing the pads to air dry. DO NOT PUT IN THE WASHING MACHINE OR VETERINARY MEDICINE TEACHER, IT WILL DESTROY THEM. Care Instructions: Incentive Spirometer - Continue to use your incentive spirometer Care Instructions: Incisions -Keep incisions clean and dry Care Instructions: No tub baths -No tub baths, whirlpools or swimming until your provider says it's ok. Care Instructions: Shower -You may shower in Cervical Collar. -Shower daily. Remove dressings and allow soapy water to rinse over wounds. Rinse and pat dry. Re- apply dressings as directed. Use new clean washcloth daily, and start with cleansing wounds first then the rest of body. Care order/instruction - Braces Continue cervical spine precautions Cervical collar at all times unless otherwise clarified by medical team Ok to remove for groom and hygeine NO range of motion at neck No pulling with upper extremities No pillow causing neck flexion. Pillows should be placed in cross shapr pattern to ensure the neck does not bend forward Keep brace fasten properly for snug fit. Do not remove your brace for any reason other than cleaning the pads and checking the skin of the neck to assess for breakdown. To clean the pads, you must lay flat, without a pillow under your head and have another person assist you. 1.Undue the velcro straps, and detach the front piece, keeping the back piece in place. 2. Have your partner remove the pads 3. Replace the pads with extra pad set, and then replace front piece of the collar to the front ofyour neck for stability. 4. Log roll your body to the side and have your partner repeat this same process for the back piece of the brace. 5.Close velcro straps. 5. Clean soiled used pads with soap and water, allowing the pads to air dry. DO NOT PUT IN THE WASHING MACHINE OR VETERINARY MEDICINE TEACHER, IT WILL DESTROY THEM. Dwight [phone] RN and PT. Please call for date and time of visit if you do not hear from them within 48 hours of d/c Call your Surgeon???s office from 8:00am-3:30pm at for the following: * You have a fever of more than 101.5 degrees. * You have nausea, vomiting or diarrhea that does not stop. * You have pus or bad smelling drainage from your wound. * The pain in your stomach is very bad or gets a lot worse. * You feel dizzy, very tired or like you may faint. * You have hard time breathing. * You have any other concerns or questions Follow up Contact Information for Follow-ups [facility] Home Care Services Specialty: Home Health and Hospice [address] [place] [id number] Next Steps: Follow up Questions: Service Line: Home Health Primary disciplines requested: [facility] Physical Therapy Home Health Services: Therapy to Eval/ Treat Wound/ Ostomy Care Evaluate Physician to follow patient's care (the person listed here will be responsible for signing ongoing orders): PCP Requested Start of Care Date: Within 2 - 3 Days I attest that I or another qualified licensed provider saw the patient 90 days prior to or 30 days post admission and this face to face encounter meets the necessary Home Health requirements. The face to face encounter occurred on (date): 03/22/2020 The encounter with the patient was in whole, or in part, for the following medical condition, whichis the primary reason for home health care. (List medical condition): cervical fracture, hx renal transplant with multiple UTI I certify that, based on my findings, the following services are medically necessary skilled home health services: Therapy to Eval/ Treat Wound/ Ostomy Care Evaluate Clinical findings that support the need for home care: Medical condition requiring skilled assessment/education Frequent falls requiring safety eval/therapy I certify that my clinical findings support patient's homebound status. Homebound criteria met because: Poor endurance Requires assistance of another to leave home safely Pain with minimal activity or rest Abnormal gait/unsteady balance resulting in fall risk Referral Status: Pending Authorization External Order Next Steps: Follow up Questions: Reason for Referral: OT Evaluate and Treat Therapy options discussed with patient?: Yes Location provided for therapy services is: Patient requested/Patient preferred Please select the performing region: External Order Referral Status: External - Ready to Schedule Rosana Nunez MD Specialty: Internal Medicine Relationship: Consulting Physician [address] [place] [address] Next Steps: Follow up Instructions: Call for follow up appointment with Dr. Nunez in 1-2 weeks for hospital follow up,and medication review Questions: To provider: ROSANA NUNEZ Instructions for follow-up (appointment date and time): Call for follow up appointment with Dr. Nunez in 1-2 weeks for hospital follow up, and medication review Other Follow-up Next Steps: Follow up Instructions: Please have CT Scan at 8:20am prior OrthoSpine appointment on 3rd floor CAM Questions: Instructions for follow-up (appointment date and time): Please have CT Scan at 8:20am prior OrthoSpine appointment on 3rd floor CAM Future Appointments Date Time Provider Department Center 03/30/2020 8:20 AM BJ BCT2 [facility]J N [facility] Main IMG 03/30/2020 8:45 AM Js Barahona MD OS SPN CAM6B OS 05/24/2020 9:45 AM [facility] Renal TX[facility] Ne[facility] 09/20/2020 10:30 AM Butch Maria MD GEN [facility] OP I spent 45 minutes completing this hospital discharge. Jocelynn Otero NP 03/28/20 CC: Merlin Nunez MD Cosigned by Deacon Shashi Alegre MD at 03/29/2020 8:14 AM CDT documented in this encounter Discharge Instructions * Discharge Instr - Other Orders* Idalia Verduzco RN - 03/22/2020 3:08 PM [phone] and PT. Please call for date and time of visit if you do not hear from them within 48 hours of d/c documented in this encounter Medications at Time of Discharge cyanocobalamin (Vitamin B-12) 100 mcg tablet Take 1 tablet (100 mcg total) by mouth daily acyclovir (ZOVIRAX) 200 mg capsule Take 200 mg by mouth 2 (two) times a day 0 acetaminophen 500 mg capsule Take 2 capsules [...] within 12 hours or as directed by MD. 60 patch 03/29/2020 0 polyethylene glycol (MIRALAX) 17 gram packetIndications :constipation Take 1 packet (17 g total) by mouth daily 30 packet 03/29/2020 0 predniSONE (DELTASONE) 5 mg tabletIndications :Organ Transplant Rejection Take 1 tablet (5 mg) by mouth property management intern before breakfast 30 tablet 11 06/16/2019 0 trimethoprim (TRIMPEX) 100 mg tabletIndications :Prevention of Bacterial Urinary Tract Infection Take 1 tablet (100 mg total) by mouth nightly 30 tablet 03/28/2020 0 aspirin 81 mg tabletIndications :prevention of [...] tablet TAKE 1 TABLET(100 MCG) BY MOUTH MACHINE OR MACHINERY MECHANIC AND BEFORE BREAKFAST 30 tablet 11 07/11/2019 1 lisinopriL (PRINIVIL,ZESTRIL ) 10 mg tabletIndications :hypertension Take 1 tablet (10 mg total) by mouth property management intern before breakfast 90 tablet 3 01/09/2020 1 [...] 08/19/2018 1 documented as of this encounter Ordered Prescriptions Prescription Sig Dispense Quantity Refills Last Filled Start Date End Date traMADoL (ULTRAM) 50 mg tablet Take 1 tablet (50 mg total) by mouth 4 (four) times a day as needed for pain 30 tablet 03/28/2020 0 senna-docusate (PERICOLACE) 8.6-50 mg Take 2 tablets by mouth 2 (two) times a day 120 tablet 03/28/2020 0 polyethylene glycol (MIRALAX) 17 gram packetIndications: constipation Take 1 packet (17 g total) by mouth daily 30 packet 03/29/2020 0 lidocaine (LIDODERM) 5 % Place 2 patches on the skin daily Remove & discard patch within 12 hours or as directed by . 60 patch 03/29/2020 0 gabapentin (NEURONTIN) 300 mg capsule Take 1 capsule (300 mg total) by mouth 2 (two) times a day 60 capsule 03/28/2020 0 enoxaparin (LOVENOX) 30 mg/0.3 mL syringeIndications :Deep Vein Thrombosis Prevention Inject 0.3 mL (30 mg total) under the skin every 12 (twelve) hours 18 mL 03/28/2020 0 cyclobenzaprine (FLEXERIL) 5 mg tablet Take 1 tablet (5 mg total) by mouth 3 (three) times a day as needed for muscle spasms 30 tablet 03/28/2020 0 benzocaine (ORAJEL) 10 % mucosal gel Apply to the mouth or throat 3 (three) times a day as needed for mucositis 5.3 g 03/28/2020 1 acetaminophen 500 mg capsule Take 2 capsules (1,000 mg total) by mouth every 6 (six) hours 240 tablet 03/28/2020 0 trimethoprim (TRIMPEX) 100 mg tabletIndications: Prevention of Bacterial Urinary Tract Infection Take 1 tablet (100 mg total) by mouth nightly 30 tablet 03/28/2020 0 tacrolimus (PROGRAF) 0.5 mg capsuleIndications :immunosuppression Take 1 capsule (0.5 mg total) by mouth every 12 (twelve) hours 60 capsule 03/28/2020 1 metoprolol tartrate (LOPRESSOR) 75 mg tablet immediate release tablet Take 1 tablet (75 mg total) by mouth 2 (two) times a day 60 tablet 03/28/2020 0 documented in this encounter Discharge Disposition Disposition Code Departure Means Destination Discharge to an Rehab [facility] documented in this encounter Progress Notes * Lilly Landeros LCSW - 03/28/2020 12:01 PM CDT 03/28/20 1155 Discharge Summary Chart reviewed For Medical Necessity Does patient have a planned readmission to hospital planned? No Discharge Disposition Inpatient (Acute) Rehab Hospital Specify Facility [facility] Contact Number [phone] Casanova Discharge Records Transfer Form Completed;Chart Copied Equipment/Provider Needs No Home Needs Identified Discharge Additional Assistance Does the patient need discharge transport arranged? Yes Has discharge transport been arranged? Yes Details of Transportation [facility] [phone] What day is the transport expected? 03/29/20 What time is the transport expected? 1000 Discharge Transportation Communication Mode of transport has been discussed with the patient/family. All are agreeable to the plan and understand their responsibilities to ensure the safe transfer. No further CM/SW intervention is anticipated at this time. Post Discharge Care Provider Post Discharge Care Plan DC Summary has been faxed to next level of care provider (see Follow Up Providers) Certificate of Medical necessity completed due to requires assist with transfers, a high fall risk and is frail. No further SW needs at this time. Patient/family informed that while medical team will do everything possible for Medicare to pay forthe ambulance there is a chance that Medicare will not pay, as Medicare's criteria for ambulances are often stricter than the medical team. Social work informed patient/family that even if Medicare does pay, it may not cover the full cost of the trip as Medicare is now only covering the cost to nearest available facility. Social work informed patient/family that they will be responsible for the remainder of the bill. Patient/family voiced understanding. Patient, her daughter Kristin, and spouse agreed to d/c plan. Patient accepted placement Facility accepted placement Patient is medically stable, chart copied, insurance approved, Facility willing to take patient, Transfer paperwork completed Patient agrees with placement, DPOA agrees with placement, Designated decision- maker agrees with placement Date and time of transportation: March 28 at 2pm * Natalya Frank MD - 03/28/2020 2:15 AM CDT TRANSPLANT NEPHROLOGY CONSULT SUBSEQUENT VISIT NOTE INTERVAL HISTORY: No acute overnight events. Discharge planning underway REVIEW OF SYSTEMS: As per HPI. All other systems are negative. CURRENT MEDICATIONS: acetaminophen, 1,000 mg, oral, Q6H BLAINE acyclovir, 200 mg, oral, BID enoxaparin, 30 mg, subcutaneous, Q12H BLAINE gabapentin, 300 mg, oral, BID levothyroxine, 100 mcg, oral, Daily - 0600 lidocaine, 2 patch, transdermal, Daily lisinopriL, 10 mg, oral, Daily - 0600 metoprolol tartrate, 75 mg, oral, BID polyethylene glycol, 17 g, oral, Daily pravastatin, 20 mg, oral, Nightly predniSONE, 5 mg, oral, Daily senna-docusate, 2 tablet, oral, BID tacrolimus, 0.5 mg, oral, Q12H BLAINE trimethoprim, 100 mg, oral, Nightly PHYSICAL EXAMINATION: VITALS: BP 160/78 (BP Location: Right arm, Patient Position: Lying) Pulse 76 Temp 37 ??C (98.6 ??F) (Oral) Resp 16 Ht 157.5 cm (5' 2 ) Wt 60 kg (132 lb 4.4 oz) SpO2 98% BMI 24.19 kg/m?? Temp: [36.1 ??C (96.9 ??F)-37 ??C (98.6 ??F)] 37 ??C (98.6 ??F) Pulse: [54-82] 76 BP: (153-186)/(76-94) 160/78 Resp: [16-18] 16 SpO2: [95 %-98 %] 98 % Temp Min: 36.1 ??C (96.9 ??F) Max: 37 ??C (98.6 ??F) Pulse Min: 54 Max: 82 BP Min: 153/84 Max: 186/84 Resp Min: 16 Max: 18 SpO2 Min: 95 % Max: 98 % General: No acute distress CVS: Regular rate. S1 S2 heard. Respiratory: Diminished at base.No wheeze rhonchi crackle heard. Abdomen: Soft and +ve Bowel sounds Neuro: Alert. MSK: Neck collar. Date 03/27/20699 - 03/28/20 0659 03/28/20 07 - 03/29/20 0659 Shift [id number] 7462-5917 24 Hour Total 6357-9364 8663-4792 24 Hour Total INTAKE P.O. 660 660 Shift Total(mL/kg) 660(11) 660(11) OUTPUT Urine(mL/kg/hr) 100(0.1) 100(0.1) Shift Total(mL/kg) 100(1.7) 100(1.7) NET 560 560 Weight (kg) 60 60 60 60 60 60 LABORATORY DATA: Recent Labs Lab Units 03/28/20 0500 WBC K/cumm 5.8 HEMOGLOBIN g/dL 14.2 PLATELETS K/cumm 190 Recent Labs Lab Units 03/28/20 0500 03/26/20 0346 SODIUM mmol/L 134* 138 POTASSIUM PLASMA mmol/L 5.1* 4.6 CHLORIDE mmol/L 101 105 CO2 mmol/L 22 24 BUN SERUM mg/dL 27* 27* CREATININE mg/dL 0.80 0.88 CALCIUM mg/dL 10.2 10.1 Lab Results Component Value Date CALCIUM 10.2 03/28/2020 PHOS 1.8 (L) 03/21/2013 Lab Results Component Value Date IRON 46 08/30/2013 TIBC 231 08/30/2013 TRANSFERSAT 20 08/30/2013 FERRITIN 700 (H) 02/09/2013 ASSESSMENT AND PLAN 85 YO F with 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 Renal consultation is requested for management of inpatient immunosuppression. ? 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 Graft function -baseline serum creatinine. Mild Hyperkalemia. Low K Diet. ?? Recommendations -Continue Tacrolimus at current dose -continue??prednisone??5 mg daily -continue acyclovir 200 mg BID for history of shingles ? #Acute Pain from Trauma and C2 fracture: On Flexeril and Acetaminophen. ? Natalya Frank Nephrology Fellow ?? Transplant Nephrology Service Please call [phone] from 7am- 5pm Mon-Fri After hours and weekends: please page [phone] ? Cosigned by Ritchie Rodriguez MD at 03/29/2020 1:20 PM CDT Associated attestation - Ritchie Rodriguez MD - 03/29/2020 1:20 PM CDT The resident/fellow saw and examined the patient, we discussed their findings, and I am in agreement with the plan based on the discussion with the resident/fellow. I did not personally examine the patient since she had left by the time I arrived. * Jocelynn Otero NP - 03/27/2020 9:48 AM CDT [facility] Geriatric Trauma Surgery Daily Progress Note Admit: 03/19/2020 8:19 PM Date: March 27, 2020 Length of Stay: 7 Attending: Deacon Shashi Alegre MD POD:* No surgery found * History: Juliet Dunlap is a 85 y.o. female with a past medical history kidney transplant in 2012,??CAD, HTN, hypothyroidism, HBV, GERD, hiatal hernia, HLD??who presented as a transfer from [facility] with C2 comminuted vertebral body fracture with extension to bilateral masses and right foramen, C4/5 anterolisthesis. She was noted to be neuro intact. Head CT scan reportedly without acute abnormality. There was no other concern for other injury based on exam. Patient ambulated after the event. Upon presentation the patient was evaluated by orthopedic spine surgery who recommended non operative management in a Alutiiq J collar. CTA demonstrated no large vessel occlusion or vascular injury. Renal transplant was consulted and home medications were continued. Patient was admitted to the floor for therapy evaluation. ?? Interval History: 03/27: Patient wanting to discharge to rehab. Family agreeable. Will discuss with SW placement options 03/26: Patient up and more alert. Pain controlled. PT/OT for safe home discharge. Continue dischargeplanning. 03/25: patient currently unable to ambulate or complete her ADLs. Will need to work with PT/OT. Patient may require rehab versus SNF depending on her ability to perform PT/OT. No acute events over night. 03/24: no acute events over night. tacro level yesterday was 5.9 from 9.1. follow up am level and recs from onc. dispo planning already in progress 03/23: Pending disposition. Will follow up with SW. Tacrolimus level 9.1. 03/22: Alutiiq J and uprights completed. AM tacro level 9. Increased metoprolol to 75mg BID for HTN. Added flexeril for muscle tightness. 03/21:Spoke with pt's at bedside last night. Will await Alutiiq J today and then obtain upright xrays.Rosales removed and labs pending 03/20- New admit to floor ?? Pain:controlled Nausea: No Flatus: Yes Bowel Movement: Yes Medications: Current Facility-Administered Medications: ??? acetaminophen (TYLENOL) tablet 1,000 mg, 1,000 mg, oral, Q6H [facility], Jose So MD, 1,000 mg at 03/27/20 1436 ??? acyclovir (ZOVIRAX) capsule 200 mg, 200 mg, oral, BID, Mikayla Jimenez MD, 200 mg at 03/27/20 0834 ??? benzocaine (ORAJEL) 10 % mucosal gel, , mouth/throat, TID PRN, Sammie Santiago [employer] ??? cyclobenzaprine (FLEXERIL) tablet 5 mg, 5 mg, oral, TID PRN, Jocelynn Otero NP, 5 mg at 03/26/20 2211 ??? enoxaparin (LOVENOX) syringe 30 mg, 30 mg, subcutaneous, Q12H BLAINE, Samia Thompson NP, 30 mg at 03/27/20 0834 ??? gabapentin (NEURONTIN) capsule 300 mg, 300 mg, oral, BID, Marianne Valle NP, 300mg at 03/27/20 0834 ??? levothyroxine (SYNTHROID) tablet 100 mcg, 100 mcg, oral, Daily - 0600, Jose So MD, 100 mcg at 03/27/20 0559 ??? lidocaine (LIDODERM) 5 % patch 2 patch, 2 patch, transdermal, Daily, Marianne Valle NP, Last Rate: 0 mL/hr at 03/26/202041, 2 patch at 03/27/2034 ??? lisinopriL (PRINIVIL,ZESTRIL) tablet 10 mg, 10 mg, oral, Daily - 0600, Jose So MD, 10 mg at 03/27/20 0559 ??? metoprolol tartrate (LOPRESSOR) immediate release tablet 75 mg, 75 mg, oral, BID, Kesha Maurice NP, 75 mg at 03/27/20 0834 ??? polyethylene glycol (MIRALAX) packet 17 g, 17 g, oral, Daily, Kesha Lawrence NP, 17 g at03/26/20 0826 ??? pravastatin (PRAVACHOL) tablet 20 mg, 20 mg, oral, Nightly, Jose So MD, 20 mg at03/26/202039 ??? predniSONE (DELTASONE) tablet 5 mg, 5 mg, oral, Daily, Jose So MD, 5 mg at 03/27/20 0834 ??? senna-docusate (PERICOLACE) 8.6-50 mg per tablet 2 tablet, 2 tablet, oral, BID, Kesha Lawrence NP, 2 tablet at 03/27/20 0834 ??? tacrolimus (PROGRAF) capsule 0.5 mg, 0.5 mg, oral, Q12H BLAINE, Mikayla Jimenez MD, 0.5 mg at 03/27/20 0834 ??? traMADoL (ULTRAM) tablet 50 mg, 50 mg, oral, QID PRN, Samia Thompson NP, 50 mg at 03/27/20 1722 ??? trimethoprim (TRIMPEX) tablet 100 mg, 100 mg, oral, Nightly, Jose So MD, 100 mg at 03/26/202057 Diet: Dietary Orders (From admission, onward) Start Ordered 03/26/20 1557 Oral Nutrition Supplements Select Supplement: Ensure - Van; Quantity (# of cans): 1 can All Meals Question Answer Comment Select Supplement: Ensure - Van Quantity (# of cans): 1 can 03/26/20 1556 03/20/20 1615 Adult Diet Regular Diet effective now Question: ([facility]) Diet type Answer: Regular 03/20/20 1614 Activity: As tolerated Is&Os: No intake/output data recorded. No intake/output data recorded. Physical Exam: 24hr Min/Max: Temp Min: 36.6 ??C (97.8 ??F) Max: 36.9 ??C (98.4 ??F) Pulse Min: 54 Max: 90 BP Min: 148/88 Max: 186/84 Resp Min: 16 Max: 18 SpO2 Min: 95 % Max: 98 % Vitals: 03/27/20 1509 BP: 166/82 Pulse: 68 Resp: 16 Temp: 36.8 ??C (98.3 ??F) SpO2: 97% Constitutional: well developed, well nourished, cooperative and no apparent distress Head: normocephalic, without obvious abnormality, atraumatic Neurologic: alert and oriented x4 sensation intact all extremities motor 5/5 all extremities Eyes: conjunctivae/corneas clear. PERRL, EOMs intact HENT: mucous membranes moist and lips, mucosa, and tongue normal Neck: c-collar in place Chest: normal appearance, no masses or tenderness Respiratory: clear to auscultation bilaterally and normal chest rise and fall Cardiovascular: regular rate, regular rhythm and systolic murmur Gastrointestinal: bowel sounds present, non-distended and soft non-tender Musculoskeletal: extremities normal, warm and well-perfused and no edema Pulses: radial: bilateral normal and DP: bilateral normal Skin: skin color, texture, turgor normal. No rashes or lesions or ecchymosis noted to right distal neck Labs/Imaging: Recent Results (from the past 72 hour(s)) Tacrolimus level trough Collection Time: 03/25/20 6:37 AM Result Value Ref Range Tacrolimus trough 7.0 ng/mL Tacrolimus level trough Collection Time: 03/26/20 3:46 AM Result Value Ref Range Tacrolimus trough 6.9 ng/mL Basic metabolic panel Collection Time: 03/26/20 3:46 AM Result Value Ref Range Sodium 138 135 - 145 mmol/L Potassium, pl 4.6 3.3 - 4.9 mmol/L Chloride 105 97 - 110 mmol/L CO2 24 22 - 32 mmol/L Anion gap 9 2 - 15 mmol/L BUN 27 (H) 8 - 25 mg/dL Creatinine 0.88 0.60 - 1.10 mg/dL Glucose 94 70 - 199 mg/dL Calcium 10.1 8.5 - 10.3 mg/dL POCT glucose Collection Time: 03/26/20 8:14 PM Result Value Ref Range Glucose, POC 131 70 - 199 mg/dL Tacrolimus level trough Collection Time: 03/26/20 10:33 PM Result Value Ref Range Tacrolimus trough 6.7 ng/mL POCT glucose Collection Time: 03/27/20 12:17 AM Result Value Ref Range Glucose, POC 107 70 - 199 mg/dL POCT glucose Collection Time: 03/27/20 4:05 AM Result Value Ref Range Glucose, POC 95 70 - 199 mg/dL Xr Chest 2 Views Result Date: 03/20/2020 Comparison is made to prior study performed earlier today at 3:15 AM. In the interval, there has been no change in mild blunting of the costophrenic angles which may represent tiny pleural effusions.Heart size is moderately enlarged. Mild basilar atelectasis is seen. On the lateral projection noteis made of mild basilar pulmonary edema. No pneumothorax is seen. Previously seen upper lung airspace opacities note not seen. Electronically signed by: Melecio Holland M.D. Xr Spine Cervical 2 Or 3 Views Result Date: 03/20/2020 Cervical spine: 4 views were submitted. Study is limited due to a poor open- mouth view. There is prevertebral soft tissue swelling. Patient's known C2 fracture is better demonstrated on the CT. Severe degenerative disc disease at C4-C5. Heavy calcification of the carotid bulbs is noted. Thoracic spine: 4 views were submitted. Alignment is normal. There is very mild age indeterminant wedging at the mid thoracic spine. Otherwise, the vertebral body heights are normal. Lumbar spine: 3 views were submitted. Alignment is normal. Vertebral body heights are normal. No acute fractures. Chest: There is diffuse opacity bilaterally, which are favored to be due to overlying soft tissue. However, if clinically concern for acute pulmonary processes, finding could be further evaluated with a two-view chest radiograph. There is no pneumothorax. Mediastinal contours are normal. Mitral annulus calcifications noted ADDENDUM - This addendum is being placed on the report for a time dependent finding on a p atient who is admitted to the hospital (2B). There is left upper lobe opacity, which could be due to asymmetric pulmonary edema. If clinically indicated, 2 view chest radiograph or chest CT can be ordered for further evaluation. These findings were communicated to Dr. Regina Zaldivar by Deepti Mesa at 7:21AM on 03/20/2020. Dictated by: Deepti Mesa M.D. The radiology attending physician has personally reviewed this study, and had reviewed and/or edited this written report and agrees with it. Electronically signed by: Melecio Holland M.D. Xr Spine Thoracic 3 Vw Result Date: 03/20/2020 Cervical spine: 4 views were submitted. Study is limited due to a poor open- mouth view. There is prevertebral soft tissue swelling. Patient's known C2 fracture is better demonstrated on the CT. Severe degenerative disc disease at C4-C5. Heavy calcification of the carotid bulbs is noted. Thoracic spine: 4 views were submitted. Alignment is normal. There is very mild age indeterminant wedging at the mid thoracic spine. Otherwise, the vertebral body heights are normal. Lumbar spine: 3 views were submitted. Alignment is normal. Vertebral body heights are normal. No acute fractures. Chest: There is diffuse opacity bilaterally, which are favored to be due to overlying soft tissue. However, if clinically concern for acute pulmonary processes, finding could be further evaluated with a two-view chest radiograph. There is no pneumothorax. Mediastinal contours are normal. Mitral annulus calcifications noted ADDENDUM - This addendum is being placed on the report for a time dependent finding on a p atient who is admitted to the hospital (2B). There is left upper lobe opacity, which could be due to asymmetric pulmonary edema. If clinically indicated, 2 view chest radiograph or chest CT can be ordered for further evaluation. These findings were communicated to Dr. Regina Zaldivar by Deepti Mesa at 7:21AM on 03/20/2020. Dictated by: Deepti Mesa M.D. The radiology attending physician has personally reviewed this study, and had reviewed and/or edited this written report and agrees with it. Electronically signed by: Melecio Holland M.D. Xr Spine Lumbar 2 Or 3 Views Result Date: 03/20/2020 Cervical spine: 4 views were submitted. Study is limited due to a poor open- mouth view. There is prevertebral soft tissue swelling. Patient's known C2 fracture is better demonstrated on the CT. Severe degenerative disc disease at C4-C5. Heavy calcification of the carotid bulbs is noted. Thoracic spine: 4 views were submitted. Alignment is normal. There is very mild age indeterminant wedging at the mid thoracic spine. Otherwise, the vertebral body heights are normal. Lumbar spine: 3 views were submitted. Alignment is normal. Vertebral body heights are normal. No acute fractures. Chest: There is diffuse opacity bilaterally, which are favored to be due to overlying soft tissue. However, if clinically concern for acute pulmonary processes, finding could be further evaluated with a two-view chest radiograph. There is no pneumothorax. Mediastinal contours are normal. Mitral annulus calcifications noted ADDENDUM - This addendum is being placed on the report for a time dependent finding on a p atient who is admitted to the hospital (2B). There is left upper lobe opacity, which could be due to asymmetric pulmonary edema. If clinically indicated, 2 view chest radiograph or chest CT can be ordered for further evaluation. These findings were communicated to Dr. Regina Zaldivar by Deepti Mesa at 7:21AM on 03/20/2020. Dictated by: Deepti Mesa M.D. The radiology attending physician has personally reviewed this study, and had reviewed and/or edited this written report and agrees with it. Electronically signed by: Melecio Holland M.D. Xr Chest 1 Vw Portable Result Date: 03/20/2020 Cervical spine: 4 views were submitted. Study is limited due to a poor open- mouth view. There is prevertebral soft tissue swelling. Patient's known C2 fracture is better demonstrated on the CT. Severe degenerative disc disease at C4-C5. Heavy calcification of the carotid bulbs is noted. Thoracic spine: 4 views were submitted. Alignment is normal. There is very mild age indeterminant wedging at the mid thoracic spine. Otherwise, the vertebral body heights are normal. Lumbar spine: 3 views were submitted. Alignment is normal. Vertebral body heights are normal. No acute fractures. Chest: There is diffuse opacity bilaterally, which are favored to be due to overlying soft tissue. However, if clinically concern for acute pulmonary processes, finding could be further evaluated with a two-view chest radiograph. There is no pneumothorax. Mediastinal contours are normal. Mitral annulus calcifications noted ADDENDUM - This addendum is being placed on the report for a time dependent finding on a p atient who is admitted to the hospital (2B). There is left upper lobe opacity, which could be due to asymmetric pulmonary edema. If clinically indicated, 2 view chest radiograph or chest CT can be ordered for further evaluation. These findings were communicated to Dr. Regina Zaldivar by Deepti Mesa at 7:21AM on 03/20/2020. Dictated by: Deepti Mesa M.D. The radiology attending physician has personally reviewed this study, and had reviewed and/or edited this written report and agrees with it. Electronically signed by: Melecio Holland M.D. Mri Spine Cervical And Thoracic Wo Contrast Result Date: 03/20/2020 1. Acute comminuted C2 vertebral body fracture extending to the right pedicle and transverse foramen, and left superior articular facet. Associated left C1-C2 facet joint injury and C1-C2 interspinous ligamentous injury. No cord signal abnormality. 2. Additional nondisplaced fracture versus bone contusion of the left lateral mass of C1. 3. Focal disruption of the anterolateral ligament at C2 level, with prevertebral hematoma/edema and trace epidural hematoma. 4. Acute compression fractures of T2 and T3 vertebral bodies, with mild height loss. 5. Degenerative changes of cervical spine as detailed above. Dictated by: Ari Navarro M.D. The radiology attending physician has personallyreviewed this study, and had reviewed and/or edited this written report and agrees with it. Electronically signed by: Danna Ying M.D. Cta Head Neck W Wo Contrast Result Date: 03/20/2020 1. No acute intracranial abnormality. 2. No large vessel occlusion or vascular injury. 3. C2 vertebral body fracture extending into the lateral masses and right pedicle. Dictated by: Gerber Cruz M.D. The radiology attending physician has personally reviewed this study, and had reviewed and/or edited this written report and agrees with it. Electronically signed by: Danna Ying M.D. Ct Thoracic And Lumbar Spine Wo Contrast Result Date: 03/20/2020 1. C2 comminuted vertebral body fracture with involvement of the lateral masses and right pedicle. 2. No acute fracture the thoracic or lumbar spine. Mild T3 vertebral body height loss, likely chronic given absence of edema on the contemporaneous MRI. Addendum: there is T3 edema on the MR suggestive of an acute compression fracture. AlthoughT2 vertebral body and left lateral mass of C1 have marrow edema as seen on MR, no fracture is clearly seen on the CT suggestive of occult fractures. Dictated by: Gerber Cruz M.D. The radiology attending physician has personally reviewed this study, and had reviewed and/or edited this written report and agrees with it. Electronically signed by: Danna Ying M.D. Neuro Ct Mr Outside Consult Result Date: 03/20/2020 1. Unstable comminuted C2 body fracture with [...] facility where the study was performed based uponthe imaging and clinical condition at that time. Comparison with the prior report and clinical history is necessary. The provided images may or may not represent the [place] source data set and thus may contain changes that may lower the accuracy of this second-opinion interpretation. Dictated by: Alice Hameed M.D. The radiology attending physician has personally reviewed this study, and had reviewed and/or edited this written report and agrees with it. Electronically signed by: Danna Ying M.D. Neuro Ct Mr Outside Consult Result Date: 03/20/2020 1. Unstable comminuted C2 body fracture with extension into the lateral masses and probable involvement of the right foramen transversarium. Recommend CTA head and neck to evaluate for possible arterial injury. The Critical results were discussed with Dr. Mcelroy by Dr. Hameed on 03/20/2020 at 3:37AM The findings, conclusions and recommendations within this report do not replace the initial findings, conclusions and recommendations made at the facility where the study was performed based upon the imaging and clinical condition at that time. Comparison with the prior report and clinical history is necessary. The provided images may or may not represent the [place] source data set and thus may contain changes that may lower the accuracy of this second-opinion interpretation. Dictated by: Alice Hameed M.D. The radiology attending physician has personally reviewed this study, and had reviewed and/or edited this written report and agrees with it. Electronically signed by: KatieD. Stepan M.D. Ct Recon Cervical Spine W Contrast Result Date: 03/20/2020 1. C2 comminuted vertebral body fracture with involvement of the lateral masses and right pedicle. 2. No acute fracture the thoracic or lumbar spine. Mild T3 vertebral body height loss, likely chronic given absence of edema on the contemporaneous MRI. Addendum: there is T3 edema on the MR suggestive of an acute compression fracture. AlthoughT2 vertebral body and left lateral mass of C1 have marrow edema as seen on MR, no fracture is clearly seen on the CT suggestive of occult fractures. Dictated by: Gerber Cruz M.D. The radiology attending physician has personally reviewed this study, and had reviewed and/or edited this written report and agrees with it. Electronically signed by: Danna Ying M.D. Assessment and Plan: Principal Problem: Traumatic closed fracture of C2 vertebra with minimal displacement (CMS/HCC) Active Problems: History of kidney transplant Injury to ligament of cervical spine Acute pain due to trauma HTN (hypertension) CAD (coronary artery disease) Hypothyroidism Chronic UTI #C2 vertebral body fx extending into the pedicle/transverse foramen and C1-C2 facet joint #C2 anterolateral ligament injury + trace epidural hematoma - Ortho-Spine consulted - CTA Head and Neck neg for vascular injury - Nonoperative management - Strict cervical precautions - Alutiiq J collar - Uprights completed - PT/OT - Pain control - Follow up with Ortho spine Dr. Barahona in 1 week for repeat C-spine CT #T2/T3 vertebral body fractures - Ortho-Spine consulted - CT T/L spine- likely chronic #Acute pain due to trauma - APAP q6 and - oxy PRN (decreased to 2.5mg), dc'd - started Tramadol - flexeril PRN #Kidney transplant - Renal Transplant consulted - 03/21: Tacrolimus level 17.6-9.1-5.9-6.0-7.0-6.9 - Daily AM tacrolimus level - restarted Tacrolimus 0.5mg q 12hrs - Continue prednisone 5 mg daily - Continue acyclovir 200 mg BID for history of shingles #HTN - Continue home metop 50 BID, lisinopril - 03/21: Increased metoprolol to 75mg BID - vitals q4h #CAD - Hold ASA 81 - Continue home lipitor #hypothyroidism - Continue home synthroid 100 #h/o multiple UTIs - Continue home trimethoprim 100 - UA +, Culture from 03/19 Coag negative staph - Culture 03/21 NGTD #DVT PPx: Lovenox #Dispo: Rehab vs home Jocelynn Otero NP Section of Acute and Critical Care Surgery Cosigned by Tom Bernard MD at 05/02/2020 8:16 AM CDT Associated attestation - Tom Bernard MD - 05/02/2020 8:16 AM CDT I have seen and examined the patient on 03/27/2020 in conjunction with the non- physician provider. History: Trauma Physical Exam: Awake alert Lab/Radiology/Diagnostics Review: Assessment/Plan C-spine fracture: Continue Alutiiq J collar PT OT Pain control Rehab planning * Natalya Frank MD - 03/27/2020 8:14 AM CDT TRANSPLANT NEPHROLOGY CONSULT SUBSEQUENT VISIT NOTE INTERVAL HISTORY: No acute overnight events. REVIEW OF SYSTEMS: As per HPI. All other systems are negative. CURRENT MEDICATIONS: acetaminophen, 1,000 mg, oral, Q6H BLAINE acyclovir, 200 mg, oral, BID enoxaparin, 30 mg, subcutaneous, Q12H BLAINE gabapentin, 300 mg, oral, BID levothyroxine, 100 mcg, oral, Daily - 0600 lidocaine, 2 patch, transdermal, Daily lisinopriL, 10 mg, oral, Daily - 0600 metoprolol tartrate, 75 mg, oral, BID polyethylene glycol, 17 g, oral, Daily pravastatin, 20 mg, oral, Nightly predniSONE, 5 mg, oral, Daily senna-docusate, 2 tablet, oral, BID tacrolimus, 0.5 mg, oral, Q12H BLAINE trimethoprim, 100 mg, oral, Nightly PHYSICAL EXAMINATION: VITALS: BP 160/88 (BP Location: Left arm, Patient Position: Lying) Pulse 71 Temp 36.9 ??C (98.4??F) (Oral) Resp 18 Ht 157.5 cm (5' 2 ) Wt 60 kg (132 lb 4.4 oz) SpO2 97% BMI 24.19 kg/m?? Temp: [36.6 ??C (97.8 ??F)-36.9 ??C (98.4 ??F)] 36.9 ??C (98.4 ??F) Pulse: [71-96] 71 BP: (148-178)/(76-95) 160/88 Resp: [18] 18 SpO2: [95 %-99 %] 97 % Temp Min: 36.6 ??C (97.8 ??F) Max: 36.9 ??C (98.4 ??F) Pulse Min: 71 Max: 96 BP Min: 148/88 Max: 178/88 Resp Min: 18 Max: 18 SpO2 Min: 95 % Max: 99 % General: No acute distress CVS: Regular rate. S1 S2 heard. Respiratory: Diminished at base.No wheeze rhonchi crackle heard. Abdomen: Soft and +ve Bowel sounds LABORATORY DATA: Recent Labs Lab Units 03/21/20 0505 WBC K/cumm 9.5 HEMOGLOBIN g/dL 13.2 PLATELETS K/cumm 121* Recent Labs Lab Units 03/26/20 0346 03/21/20 0505 SODIUM mmol/L 138 137 POTASSIUM PLASMA mmol/L 4.6 4.9 CHLORIDE mmol/L 105 106 CO2 mmol/L 24 21* BUN SERUM mg/dL 27* 32* CREATININE mg/dL 0.88 0.86 CALCIUM mg/dL 10.1 9.9 MAGNESIUM mg/dL -- 1.7 Lab Results Component Value Date CALCIUM 10.1 03/26/2020 PHOS 1.8 (L) 03/21/2013 Lab Results Component Value Date IRON 46 08/30/2013 TIBC 231 08/30/2013 TRANSFERSAT 20 08/30/2013 FERRITIN 700 (H) 02/09/2013 ASSESSMENT AND PLAN 85 YO F with 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 Renal consultation is requested for management of inpatient immunosuppression. ? 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 Graft function -baseline serum creatinine -caution with using NSAIDs for pain ?? Recommendations -Continue Tacrolimus at current dose -daily??AM tacrolimus level -continue??prednisone??5 mg daily -continue acyclovir 200 mg BID for history of shingles ? #Acute Pain from Trauma and C2 fracture: On Flexeril and Acetaminophen. ? Natalya Frank Nephrology Fellow ?? Transplant Nephrology Service Please call [phone] from 7am- 5pm Mon-Fri After hours and weekends: please page [phone] ? Cosigned by Ritchie Rodriguez MD at 03/27/2020 1:39 PM CDT * Mine Hand RD - 03/26/2020 9:40 PM CDT Nutrition Screen Note Pt. Screened for nutritional assessment secondary to LOS. Pt presented as a transfer??from??[facility]??with C2 comminuted??vertebral body fracture??with extension to bilateral??masses and right foramen, C4/5 anterolisthesis. past medical history??kidney transplant in 2012,??CAD, HTN, hypothyroidism, HBV, GERD, hiatal hernia, HLD?? Past Medical History: Diagnosis Date ??? Abdominal pain ??? Bruising ??? CAD (coronary artery disease) ??? CAD (coronary artery disease) 03/21/2020 ??? Fatigue ??? Frequent urination ??? GERD (gastroesophageal reflux disease) ??? Hiatal hernia schatzki ring ??? HL (hearing loss) ??? Hyperlipidemia ??? Hypertension ??? Hypothyroidism ??? Migraines ??? Peritoneal dialysis status ([facility]) From 2009 to 2012 prior to transplant [...] 194 ??? VEIN LIGATION AND STRIPPING 1992 Anthropometrics Weight: 60 kg (132 lb 4.4 oz) Admission Weight : 60 kg Weight Change: 1.03 kg (2.27 lbs) IBW/kg (Calculated) : 49.9 kg Height: 157.5 cm (5' 2 ) Weight in (lb) to have BMI = 25: 136.4 BMI (Calculated): 24.2 Dietary Orders (From admission, onward) Start Ordered 03/26/20 1557 Oral Nutrition Supplements Select Supplement: Ensure - Van; Quantity (# of cans): 1 can All Meals Question Answer Comment Select Supplement: Ensure - Van Quantity (# of cans): 1 can 03/26/20 1556 03/20/20 1615 Adult Diet Regular Diet effective now Question: ([facility]) Diet type Answer: Regular 03/20/20 1614 Assessment / Impression: Pt reports her usual weight is around 120#, currently around 130#. Pt reports no N/V. She is eating okay, consuming 50% of meals which is a little less than normal. Pt reports she is hungry now, eating better. Pt willing to drink ensure vanilla which is ordered, does not want ensure clear. +BM yesterday. Encouraged PO intake. RD following. Mine Hand MS RD LD #[phone] Wt Readings from Last 15 Encounters: 03/19/20 60 kg (132 lb 4.4 oz) 12/03/19 59 kg (130 lb) 05/26/19 59 kg (130 lb) 03/15/19 56.7 kg (125 lb) 12/16/18 57.6 kg (127 lb) 06/14/18 59 kg (130 lb) 06/09/18 59.4 kg (130 lb 14.4 oz) 04/06/18 59 kg (130 lb) 08/31/17 60.1 kg (132 lb 6.9 oz) 05/25/17 59.9 kg (132 lb 0.2 oz) 05/14/17 60.1 kg (132 lb 7.9 oz) 06/05/16 59.4 kg (131 lb) 11/15/15 58.5 kg (128 lb 15.9 oz) 05/17/15 57.7 kg (127 lb 4 oz) 03/29/15 58.1 kg (128 lb 2.1 oz) * Jocelynn Otero, [employer] - 03/26/2020 12:36 PM CDT [facility] Geriatric Trauma Surgery Daily Progress Note Admit: 03/19/2020 8:19 PM Date: March 26, 2020 Length of Stay: 6 Attending: Deacon Shashi Alegre MD POD:* No surgery found * History: Juliet Dunlap is a 85 y.o. female with a past medical history kidney transplant in 2012,??CAD, HTN, hypothyroidism, HBV, GERD, hiatal hernia, HLD??who presented as a transfer from [facility] with C2 comminuted vertebral body fracture with extension to bilateral masses and right foramen, C4/5 anterolisthesis. She was noted to be neuro intact. Head CT scan reportedly without acute abnormality. There was no other concern for other injury based on exam. Patient ambulated after the event. Upon presentation the patient was evaluated by orthopedic spine surgery who recommended non operative management in a Alutiiq J collar. CTA demonstrated no large vessel occlusion or vascular injury. Renal transplant was consulted and home medications were continued. Patient was admitted to the floor for therapy evaluation. ?? Interval History: 03/26: Patient up and more alert. Pain controlled. PT/OT for safe home discharge. Continue dischargeplanning. 03/25: patient currently unable to ambulate or complete her ADLs. Will need to work with PT/OT. Patient may require rehab versus SNF depending on her ability to perform PT/OT. No acute events over night. 03/24: no acute events over night. tacro level yesterday was 5.9 from 9.1. follow up am level and recs from onc. dispo planning already in progress 03/23: Pending disposition. Will follow up with SW. Tacrolimus level 9.1. 03/22: Alutiiq J and uprights completed. AM tacro level 9. Increased metoprolol to 75mg BID for HTN. Added flexeril for muscle tightness. 03/21:Spoke with pt's at bedside last night. Will await Alutiiq J today and then obtain upright xrays.Rosales removed and labs pending 03/20- New admit to floor ?? Pain:controlled Nausea: No Flatus: Yes Bowel Movement: No Medications: Current Facility-Administered Medications: ??? acetaminophen (TYLENOL) tablet 1,000 mg, 1,000 mg, oral, Q6H BLAINE, Jose So MD, 1,000 mg at 03/26/20 1421 ??? acyclovir (ZOVIRAX) capsule 200 mg, 200 mg, oral, BID, Mikayla Jimenez MD, 200 mg at 03/26/20 0825 ??? cyclobenzaprine (FLEXERIL) tablet 5 mg, 5 mg, oral, TID, Jocelynn Otero NP, 5 mg at 03/26/20 08 ??? enoxaparin (LOVENOX) syringe 30 mg, 30 mg, subcutaneous, Q12H BLAINE, Samia Thompson NP, 30 mg at 03/26/20 0826 ??? gabapentin (NEURONTIN) capsule 300 mg, 300 mg, oral, BID, Marianne Valle NP, 300mg at 03/26/20 0825 ??? levothyroxine (SYNTHROID) tablet 100 mcg, 100 mcg, oral, Daily - 0600, Jose So MD, 100 mcg at 03/26/20 0530 ??? lidocaine (LIDODERM) 5 % patch 2 patch, 2 patch, transdermal, Daily, Marianne Valle NP, Last Rate: 0 mL/hr at 03/25/20 0817, 2 patch at 03/26/20 08 ??? lisinopriL (PRINIVIL,ZESTRIL) tablet 10 mg, 10 mg, oral, Daily - 0600, Jose So MD, 10 mg at 03/26/20 0530 ??? metoprolol tartrate (LOPRESSOR) immediate release tablet 75 mg, 75 mg, oral, BID, Kesha Maurice NP, 75 mg at 03/26/20 0825 ??? polyethylene glycol (MIRALAX) packet 17 g, 17 g, oral, Daily, Kesha Lawrence NP, 17 g at03/26/20 0826 ??? pravastatin (PRAVACHOL) tablet 20 mg, 20 mg, oral, Nightly, Jose So MD, 20 mg at03/25/202039 ??? predniSONE (DELTASONE) tablet 5 mg, 5 mg, oral, Daily, Jose So MD, 5 mg at 03/26/20 08 ??? senna-docusate (PERICOLACE) 8.6-50 mg per tablet 2 tablet, 2 tablet, oral, BID, Kesha Lawrence NP, 2 tablet at 03/25/20 0816 ??? tacrolimus (PROGRAF) capsule 0.5 mg, 0.5 mg, oral, Q12H BLAINE, Mikayla Jimenez MD, 0.5 mg at 03/26/20 08 ??? traMADoL (ULTRAM) tablet 50 mg, 50 mg, oral, QID PRN, Samia Thompson NP ??? trimethoprim (TRIMPEX) tablet 100 mg, 100 mg, oral, Nightly, Jose So MD, 100 mg at 03/25/202039 Diet: Dietary Orders (From admission, onward) Start Ordered 03/22/20 1700 Oral Nutrition Supplements Select Supplement: Ensure - Jeffery; Quantity (# of cans): 1 can All Meals Question Answer Comment Select Supplement: Ensure - Jeffery Quantity (# of cans): 1 can 03/22/20 1634 03/22/201699 Oral Nutrition Supplements Select Supplement: Ensure Clear - Apple; Quantity (# of cans): 1 can All Meals Question Answer Comment Select Supplement: Ensure Clear - Apple Quantity (# of cans): 1 can 03/22/20 1634 03/20/20 1615 Adult Diet Regular Diet effective now Question: ([facility]) Diet type Answer: Regular 03/20/20 1614 Activity: As tolerated Is&Os: No intake/output data recorded. No intake/output data recorded. Physical Exam: 24hr Min/Max: Temp Min: 36.4 ??C (97.5 ??F) Max: 37.1 ??C (98.8 ??F) Pulse Min: 71 Max: 94 BP Min: 151/78 Max: 178/88 Resp Min: 16 Max: 19 SpO2 Min: 94 % Max: 99 % Vitals: 03/26/20 1146 BP: 151/78 Pulse: 94 Resp: 18 Temp: 36.8 ??C (98.2 ??F) SpO2: 96% Constitutional: well developed, well nourished, cooperative and no apparent distress Head: normocephalic, without obvious abnormality, atraumatic Neurologic: alert and oriented x4 sensation intact all extremities motor 5/5 all extremities Eyes: conjunctivae/corneas clear. PERRL, EOMs intact HENT: mucous membranes moist and lips, mucosa, and tongue normal Neck: c-collar in place Chest: normal appearance, no masses or tenderness Respiratory: clear to auscultation bilaterally and normal chest rise and fall Cardiovascular: regular rate, regular rhythm and systolic murmur Gastrointestinal: bowel sounds present, non-distended and soft non-tender Musculoskeletal: extremities normal, warm and well-perfused and no edema Pulses: radial: bilateral normal and DP: bilateral normal Skin: skin color, texture, turgor normal. No rashes or lesions or ecchymosis noted to right distal neck Labs/Imaging: Recent Results (from the past 72 hour(s)) Tacrolimus level trough Collection Time: 03/24/20 6:30 AM Result Value Ref Range Tacrolimus trough 6.0 ng/mL Tacrolimus level trough Collection Time: 03/25/20 6:37 AM Result Value Ref Range Tacrolimus trough 7.0 ng/mL Tacrolimus level trough Collection Time: 03/26/20 3:46 AM Result Value Ref Range Tacrolimus trough 6.9 ng/mL Basic metabolic panel Collection Time: 03/26/20 3:46 AM Result Value Ref Range Sodium 138 135 - 145 mmol/L Potassium, pl 4.6 3.3 - 4.9 mmol/L Chloride 105 97 - 110 mmol/L CO2 24 22 - 32 mmol/L Anion gap 9 2 - 15 mmol/L BUN 27 (H) 8 - 25 mg/dL Creatinine 0.88 0.60 - 1.10 mg/dL Glucose 94 70 - 199 mg/dL Calcium 10.1 8.5 - 10.3 mg/dL Xr Chest 2 Views Result Date: 03/20/2020 Comparison is made to prior study performed earlier today at 3:15 AM. In the interval, there has been no change in mild blunting of the costophrenic angles which may represent tiny pleural effusions.Heart size is moderately enlarged. Mild basilar atelectasis is seen. On the lateral projection noteis made of mild basilar pulmonary edema. No pneumothorax is seen. Previously seen upper lung airspace opacities note not seen. Electronically signed by: Melecio Holland M.D. Xr Spine Cervical 2 Or 3 Views Result Date: 03/20/2020 Cervical spine: 4 views were submitted. Study is limited due to a poor open- mouth view. There is prevertebral soft tissue swelling. Patient's known C2 fracture is better demonstrated on the CT. Severe degenerative disc disease at C4-C5. Heavy calcification of the carotid bulbs is noted. Thoracic spine: 4 views were submitted. Alignment is normal. There is very mild age indeterminant wedging at the mid thoracic spine. Otherwise, the vertebral body heights are normal. Lumbar spine: 3 views were submitted. Alignment is normal. Vertebral body heights are normal. No acute fractures. Chest: There is diffuse opacity bilaterally, which are favored to be due to overlying soft tissue. However, if clinically concern for acute pulmonary processes, finding could be further evaluated with a two-view chest radiograph. There is no pneumothorax. Mediastinal contours are normal. Mitral annulus calcifications noted ADDENDUM - This addendum is being placed on the report for a time dependent finding on a p atient who is admitted to the hospital (2B). There is left upper lobe opacity, which could be due to asymmetric pulmonary edema. If clinically indicated, 2 view chest radiograph or chest CT can be ordered for further evaluation. These findings were communicated to Dr. Regina Zaldivar by Deepti Mesa at 7:21AM on 03/20/2020. Dictated by: Deepti Mesa M.D. The radiology attending physician has personally reviewed this study, and had reviewed and/or edited this written report and agrees with it. Electronically signed by: Melecio Holland M.D. Xr Spine Thoracic 3 Vw Result Date: 03/20/2020 Cervical spine: 4 views were submitted. Study is limited due to a poor open- mouth view. There is prevertebral soft tissue swelling. Patient's known C2 fracture is better demonstrated on the CT. Severe degenerative disc disease at C4-C5. Heavy calcification of the carotid bulbs is noted. Thoracic spine: 4 views were submitted. Alignment is normal. There is very mild age indeterminant wedging at the mid thoracic spine. Otherwise, the vertebral body heights are normal. Lumbar spine: 3 views were submitted. Alignment is normal. Vertebral body heights are normal. No acute fractures. Chest: There is diffuse opacity bilaterally, which are favored to be due to overlying soft tissue. However, if clinically concern for acute pulmonary processes, finding could be further evaluated with a two-view chest radiograph. There is no pneumothorax. Mediastinal contours are normal. Mitral annulus calcifications noted ADDENDUM - This addendum is being placed on the report for a time dependent finding on a patient who is admitted to the hospital (2B). There is left upper lobe opacity, which could be due to asymmetric pulmonary edema. If clinically indicated, 2 view chest radiograph or chest CT can be ordered for further evaluation. These findings were communicated to Dr. Regina Zaldivar by Deepti Mesa at 7:21 AM on 03/20/2020. Dictated by: Deepti Mesa M.D. The radiology attending physician has personally reviewed this study, and had reviewed and/or edited this written report and agrees with it. Electronically signed by: Melecio Holland M.D. Xr Spine Lumbar 2 Or 3 Views Result Date: 03/20/2020 Cervical spine: 4 views were submitted. Study is limited due to a poor open- mouth view. There is prevertebral soft tissue swelling. Patient's known C2 fracture is better demonstrated on the CT. Severe degenerative disc disease at C4-C5. Heavy calcification of the carotid bulbs is noted. Thoracic spine: 4 views were submitted. Alignment is normal. There is very mild age indeterminant wedging at the mid thoracic spine. Otherwise, the vertebral body heights are normal. Lumbar spine: 3 views were submitted. Alignment is normal. Vertebral body heights are normal. No acute fractures. Chest: There is diffuse opacity bilaterally, which are favored to be due to overlying soft tissue. However, if clinically concern for acute pulmonary processes, finding could be further evaluated with a two-view chest radiograph. There is no pneumothorax. Mediastinal contours are normal. Mitral annulus calcifications noted ADDENDUM - This addendum is being placed on the report for a time dependent finding on a p atient who is admitted to the hospital (2B). There is left upper lobe opacity, which could be due to asymmetric pulmonary edema. If clinically indicated, 2 view chest radiograph or chest CT can be ordered for further evaluation. These findings were communicated to Dr. Regina Zaldivar by Deepti Mesa at 7:21AM on 03/20/2020. Dictated by: Deepti Mesa M.D. The radiology attending physician has personally reviewed this study, and had reviewed and/or edited this written report and agrees with it. Electronically signed by: Melecio Holland M.D. Xr Chest 1 Vw Portable Result Date: 03/20/2020 Cervical spine: 4 views were submitted. Study is limited due to a poor open- mouth view. There is prevertebral soft tissue swelling. Patient's known C2 fracture is better demonstrated on the CT. Severe degenerative disc disease at C4-C5. Heavy calcification of the carotid bulbs is noted. Thoracic spine: 4 views were submitted. Alignment is normal. There is very mild age indeterminant wedging at the mid thoracic spine. Otherwise, the vertebral body heights are normal. Lumbar spine: 3 views were submitted. Alignment is normal. Vertebral body heights are normal. No acute fractures. Chest: There is diffuse opacity bilaterally, which are favored to be due to overlying soft tissue. However, if clinically concern for acute pulmonary processes, finding could be further evaluated with a two-view chest radiograph. There is no pneumothorax. Mediastinal contours are normal. Mitral annulus calcifications noted ADDENDUM - This addendum is being placed on the report for a time dependent finding on a p atient who is admitted to the hospital (2B). There is left upper lobe opacity, which could be due to asymmetric pulmonary edema. If clinically indicated, 2 view chest radiograph or chest CT can be ordered for further evaluation. These findings were communicated to Dr. Regina Zaldivar by Deepti Mesa at 7:21AM on 03/20/2020. Dictated by: Deepti Mesa M.D. The radiology attending physician has personally reviewed this study, and had reviewed and/or edited this written report and agrees with it. Electronically signed by: Melecio Holland M.D. Mri Spine Cervical And Thoracic Wo Contrast Result Date: 03/20/2020 1. Acute comminuted C2 vertebral body fracture extending to the right pedicle and transverse foramen, and left superior articular facet. Associated left C1- C2 facet joint injury and C1-C2 interspinous ligamentous injury. No cord signal abnormality. 2. Additional nondisplaced fracture versus bone contusion of the left lateral mass of C1. 3. Focal disruption of the anterolateral ligament at C2 level, with prevertebral hematoma/edema and trace epidural hematoma. 4. Acute compression fractures of T2 and T3 vertebral bodies, with mild height loss. 5. Degenerative changes of cervical spine as detailed above. Dictated by: Ari Navarro M.D. The radiology attending physician has personally reviewed this study, and had reviewed and/or edited this written report and agrees with it. Electronically signed by: Danna Ying M.D. Cta Head Neck W Wo Contrast Result Date: 03/20/2020 1. No acute intracranial abnormality. 2. No large vessel occlusion or vascular injury. 3. C2 vertebral body fracture extending into the lateral masses and right pedicle. Dictated by: Gerber Cruz M.D. The radiology attending physician has personally reviewed this study, and had reviewed and/or edited this written report and agrees with it. Electronically signed by: Danna Ynig M.D. Ct Thoracic And Lumbar Spine Wo Contrast Result Date: 03/20/2020 1. C2 comminuted vertebral body fracture with involvement of the lateral masses and right pedicle. 2. No acute fracture the thoracic or lumbar spine. Mild T3 vertebral body height loss, likely chronic given absence of edema on the contemporaneous MRI. Addendum: there is T3 edema on the MR suggestive of an acute compression fracture. AlthoughT2 vertebral body and left lateral mass of C1 have marrow edema as seen on MR, no fracture is clearly seen on the CT suggestive of occult fractures. Dictated by: Gerber Cruz M.D. The radiology attending physician has personally reviewed this study, and had reviewed and/or edited this written report and agrees with it. Electronically signed by: Danna Ying M.D. Neuro Ct Mr Outside Consult Result Date: 03/20/2020 1. Unstable comminuted C2 body fracture with extension into the lateral masses and probable involvement of the right foramen transversarium. Recommend CTA head and neck to evaluate for possible arterial injury. The Critical results were discussed with Dr. Mcelroy by Dr. Hameed on 03/20/2020 at 3:37AM The findings, conclusions and recommendations within this report do not replace the initial findings, conclusions and recommendations made at the facility where the study was performed based upon the imaging and clinical condition at that time. Comparison with the prior report and clinical history is necessary. The provided images may or may not represent the [place] source data set and thus may contain changes that may lower the accuracy of this second-opinion interpretation. Dictated by: Alice Hameed M.D. The radiology attending physician has personally reviewed this study, and had reviewed and/or edited this written report and agrees with it. Electronically signed by: KatieD. Stepan M.D. Neuro Ct Mr Outside Consult Result Date: 03/20/2020 1. Unstable comminuted C2 body fracture with extension into the lateral masses and probable involvement of the right foramen transversarium. Recommend CTA head and neck to evaluate for possible arterial injury. The Critical results were discussed with Dr. Mcelroy by Dr. Hameed on 03/20/2020 at 3:37AM The findings, conclusions and recommendations within this report do not replace the initial findings, conclusions and recommendations made at the facility where the study was performed based upon the imaging and clinical condition at that time. Comparison with the prior report and clinical history is necessary. The provided images may or may not represent the [place] source data set and thus may contain changes that may lower the accuracy of this second-opinion interpretation. Dictated by: Alice Hameed M.D. The radiology attending physician has personally reviewed this study, and had reviewed and/or edited this written report and agrees with it. Electronically signed by: KatieD. Stepan M.D. Ct Recon Cervical Spine W Contrast Result Date: 03/20/2020 1. C2 comminuted vertebral body fracture with involvement of the lateral masses and right pedicle. 2. No acute fracture the thoracic or lumbar spine. Mild T3 vertebral body height loss, likely chronic given absence of edema on the contemporaneous MRI. Addendum: there is T3 edema on the MR suggestive of an acute compression fracture. AlthoughT2 vertebral body and left lateral mass of C1 have marrow edema as seen on MR, no fracture is clearly seen on the CT suggestive of occult fractures. Dictated by: Gerber Cruz M.D. The radiology attending physician has personally reviewed this study, and had reviewed and/or edited this written report and agrees with it. Electronically signed by: Danna Ying M.D. Assessment and Plan: Principal Problem: Traumatic closed fracture of C2 vertebra with minimal displacement (CMS/HCC) Active Problems: History of kidney transplant Injury to ligament of cervical spine Acute pain due to trauma HTN (hypertension) CAD (coronary artery disease) Hypothyroidism Chronic UTI #C2 vertebral body fx extending into the pedicle/transverse foramen and C1-C2 facet joint #C2 anterolateral ligament injury + trace epidural hematoma - Ortho-Spine consulted - CTA Head and Neck neg for vascular injury - Nonoperative management - Strict cervical precautions - Alutiiq J collar - Uprights completed - PT/OT - Pain control - Follow up with Ortho spine Dr. Barahona in 1 week for repeat C-spine CT #T2/T3 vertebral body fractures - Ortho-Spine consulted - CT T/L spine- likely chronic #Acute pain due to trauma - APAP q6 and - oxy PRN (decreased to 2.5mg), dc'd - started Tramadol #Kidney transplant - Renal Transplant consulted - 03/21: Tacrolimus level 17.6-9.1-5.9-6.0-7.0-6.9 - Daily AM tacrolimus level - restarted Tacrolimus 0.5mg q 12hrs - Continue prednisone 5 mg daily - Continue acyclovir 200 mg BID for history of shingles #HTN - Continue home metop 50 BID, lisinopril - 03/21: Increased metoprolol to 75mg BID - vitals q4h #CAD - Hold ASA 81 - Continue home lipitor #hypothyroidism - Continue home synthroid 100 #h/o multiple UTIs - Continue home trimethoprim 100 - UA +, Culture from 03/19 Coag negative staph - Culture 03/21 NGTD #DVT PPx: Lovenox #Dispo: Rehab vs home Jocelynn Otero NP Section of Acute and Critical Care Surgery Cosigned by Tom Bernard MD at 05/02/2020 8:15 AM CDT Associated attestation - Tom Bernard MD - 05/02/2020 8:15 AM CDT I have seen and examined the patient on 03/26/2020 in conjunction with the non- physician provider. History: Trauma Physical Exam: Awake alert Lab/Radiology/Diagnostics Review: Assessment/Plan C-spine fracture: Continue Alutiiq J collar PT OT Pain control Disposition planning * Natalya Frank MD - 03/26/2020 9:14 AM CDT NEPHROLOGY CONSULT SUBSEQUENT VISIT NOTE INTERVAL HISTORY: No acute overnight events.Cr stable. REVIEW OF SYSTEMS: As per HPI. All other systems are negative. CURRENT MEDICATIONS: acetaminophen, 1,000 mg, oral, Q6H BLAINE acyclovir, 200 mg, oral, BID cyclobenzaprine, 5 mg, oral, TID enoxaparin, 30 mg, subcutaneous, Q12H BLAINE gabapentin, 300 mg, oral, BID levothyroxine, 100 mcg, oral, Daily - 0600 lidocaine, 2 patch, transdermal, Daily lisinopriL, 10 mg, oral, Daily - 0600 metoprolol tartrate, 75 mg, oral, BID polyethylene glycol, 17 g, oral, Daily pravastatin, 20 mg, oral, Nightly predniSONE, 5 mg, oral, Daily senna-docusate, 2 tablet, oral, BID tacrolimus, 0.5 mg, oral, Q12H BLAINE trimethoprim, 100 mg, oral, Nightly PHYSICAL EXAMINATION: VITALS: BP (!) 178/88 (BP Location: Right arm, Patient Position: Lying) Comment: Pt reported havinghigh BP whenever getting OOB. Pulse 71 Temp 36.4 ??C (97.5 ??F) (Oral) Resp 19 Ht 157.5 cm (5' 2 ) Wt 60 kg (132 lb 4.4 oz) SpO2 96% BMI 24.19 kg/m?? Temp: [36.4 ??C (97.5 ??F)-37.1 ??C (98.8 ??F)] 36.4 ??C (97.5 ??F) Pulse: [71-86] 71 BP: (142-178)/(79-91) 178/88 Resp: [16-19] 19 SpO2: [94 %-99 %] 96 % Temp Min: 36.4 ??C (97.5 ??F) Max: 37.1 ??C (98.8 ??F) Pulse Min: 71 Max: 86 BP Min: 142/86 Max: 178/88 Resp Min: 16 Max: 19 SpO2 Min: 94 % Max: 99 % General: No acute distress CVS: Regular rate. S1 S2 heard. Respiratory: Diminished at base.No wheeze rhonchi crackle heard. Abdomen: Soft and +ve Bowel sounds LABORATORY DATA: Recent Labs Lab Units 03/21/20 0505 03/19/20 2044 WBC K/cumm 9.5 8.5 HEMOGLOBIN g/dL 13.2 13.6 PLATELETS K/cumm 121* 121* Recent Labs Lab Units 03/26/20 0346 03/21/20 0505 03/19/20 2044 SODIUM mmol/L 138 137 139 POTASSIUM PLASMA mmol/L 4.6 4.9 5.0* CHLORIDE mmol/L 105 106 105 CO2 mmol/L 24 21* 25 BUN SERUM mg/dL 27* 32* 27* CREATININE mg/dL 0.88 0.86 0.84 ALBUMIN g/dL -- -- 4.1 CALCIUM mg/dL 10.1 9.9 10.2 MAGNESIUM mg/dL -- 1.7 -- Lab Results Component Value Date CALCIUM 10.1 03/26/2020 PHOS 1.8 (L) 03/21/2013 Lab Results Component Value Date IRON 46 08/30/2013 TIBC 231 08/30/2013 TRANSFERSAT 20 08/30/2013 FERRITIN 700 (H) 02/09/2013 ASSESSMENT AND PLAN 85 YO F with 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 Renal consultation is requested for management of inpatient immunosuppression. ?? 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 #Acute Pain from Trauma and C2 fracture: On Flexeril and Acetaminophen. Natalya Frank Nephrology Fellow Transplant Nephrology Service Please call [phone] from 7am- 5pm Mon-Fri After hours and weekends: please page [phone] Cosigned by Ritchie Rodriguez MD at 03/26/2020 2:50 PM CDT Associated attestation - Ritchie Rodriguez MD - 03/26/2020 2:50 PM CDT I have seen and examined the patient on 03/26/20. I agree with the findings and plan of care as documented in the resident's/fellow's note.. Physical exam: Gen: Asleep, NAD Neck: Supple Chest: Unlabored breathing, no wheezing Cardiac: normotensive, normal HR and rhythm Abdomen: Soft, no distension, non tender Ext: No edema, no deformities Neuro: no tremors, no involuntary movements Cr stable, continue Tac 0.5mg BID * Baltazar Whitten MD - 03/25/2020 2:44 PM CDT Labs, vitas and imaging are reviewed No am lab Tac--7 Will consider to adjust tac as per tomorrow level Recommend BMP Continue current tx for now. * Marainne Valle NP - 03/25/2020 12:18 AM CDT [facility] Geriatric Trauma Surgery Daily Progress Note Admit: 03/19/2020 8:19 PM Date: March 25, 2020 Length of Stay: 5 Attending: Deacon Shashi Alegre MD POD:* No surgery found * History: Juliet Dunlap is a 85 y.o. female with a past medical history kidney transplant in 2013,??CAD, HTN, hypothyroidism, HBV, GERD, hiatal hernia, HLD??who presented as a transfer from [facility] with C2 comminuted vertebral body fracture with extension to bilateral masses and right foramen, C4/5 anterolisthesis. She was noted to be neuro intact. Head CT scan reportedly without acute abnormality. There was no other concern for other injury based on exam. Patient ambulated after the event. Upon presentation the patient was evaluated by orthopedic spine surgery who recommended non operative management in a Alutiiq J collar. CTA demonstrated no large vessel occlusion or vascular injury. Renal transplant was consulted and home medications were continued. Patient was admitted to the floor for therapy evaluation. ?? Interval History: 03/25: patient currently unable to ambulate or complete her ADLs. Will need to work with PT/OT. Patient may require rehab versus SNF depending on her ability to perform PT/OT. No acute events over night. 03/24: no acute events over night. tacro level yesterday was 5.9 from 9.1. follow up am level and recs from onc. dispo planning already in progress 03/23: Pending disposition. Will follow up with SW. Tacrolimus level 9.1. 03/22: Alutiiq J and uprights completed. AM tacro level 9. Increased metoprolol to 75mg BID for HTN. Added flexeril for muscle tightness. 03/21:Spoke with pt's at bedside last night. Will await Alutiiq J today and then obtain upright xrays.Rosales removed and labs pending 03/20- New admit to floor ?? Pain:controlled Nausea: No Flatus: Yes Bowel Movement: No Medications: Current Facility-Administered Medications: ??? acetaminophen (TYLENOL) tablet 1,000 mg, 1,000 mg, oral, Q6H [facility], Jose So MD, 1,000 mg at 03/24/202029 ??? acyclovir (ZOVIRAX) capsule 200 mg, 200 mg, oral, BID, Mikayla Jimenez MD, 200 mg at 03/24/202029 ??? cyclobenzaprine (FLEXERIL) tablet 5 mg, 5 mg, oral, TID, Jocelynn Otero NP, 5 mg at 03/24/202029 ??? enoxaparin (LOVENOX) syringe 30 mg, 30 mg, subcutaneous, Q12H BLAINE, Samia Thompson NP, 30 mg at 03/24/202029 ??? gabapentin (NEURONTIN) capsule 300 mg, 300 mg, oral, BID, Marianne Valle NP, 300mg at 03/24/202030 ??? levothyroxine (SYNTHROID) tablet 100 mcg, 100 mcg, oral, Daily - 0600, Jose oS MD, 100 mcg at 03/24/20 0531 ??? lidocaine (LIDODERM) 5 % patch 2 patch, 2 patch, transdermal, Daily, Marianne Valle NP, Last Rate: 0 mL/hr at 03/23/202041, 2 patch at 03/24/20 1011 ??? lisinopriL (PRINIVIL,ZESTRIL) tablet 10 mg, 10 mg, oral, Daily - 0600, Jose So MD, 10 mg at 03/24/20530 ??? metoprolol tartrate (LOPRESSOR) immediate release tablet 75 mg, 75 mg, oral, BID, Kesha Maurice NP, 75 mg at 03/24/202030 ??? oxyCODONE (ROXICODONE) tablet 2.5 mg, 2.5 mg, oral, Q4H PRN, Samia Thompson NP, 2.5 mg at 03/24/202029 ??? polyethylene glycol (MIRALAX) packet 17 g, 17 g, oral, Daily, Kesha Lawrence NP, 17 g at03/24/20 0957 ??? pravastatin (PRAVACHOL) tablet 20 mg, 20 mg, oral, Nightly, Jose So MD, 20 mg at03/24/202029 ??? predniSONE (DELTASONE) tablet 5 mg, 5 mg, oral, Daily, Jose So MD, 5 mg at 03/24/20 0959 ??? senna-docusate (PERICOLACE) 8.6-50 mg per tablet 2 tablet, 2 tablet, oral, BID, Kesha Lawrence NP, 2 tablet at 03/24/20 2030 ??? tacrolimus (PROGRAF) capsule 0.5 mg, 0.5 mg, oral, Q12H BLAINE, Mikayla Jimenez MD, 0.5 mg at 03/24/202029 ??? trimethoprim (TRIMPEX) tablet 100 mg, 100 mg, oral, Nightly, Jose So MD, 100 mg at 03/24/202029 Diet: Dietary Orders (From admission, onward) Start Ordered 03/22/20 1700 Oral Nutrition Supplements Select Supplement: Ensure - Jeffery; Quantity (# of cans): 1 can All Meals Question Answer Comment Select Supplement: Ensure - Jeffery Quantity (# of cans): 1 can 03/22/20 1634 03/22/20 1700 Oral Nutrition Supplements Select Supplement: Ensure Clear - Apple; Quantity (# of cans): 1 can All Meals Question Answer Comment Select Supplement: Ensure Clear - Apple Quantity (# of cans): 1 can 03/22/20 1634 03/20/20 1615 Adult Diet Regular Diet effective now Question: ([facility]) Diet type Answer: Regular 03/20/20 161 Activity: As tolerated Is&Os: I/O last 2 completed shifts: In: - Out: 250 [Urine:250] No intake/output data recorded. Physical Exam: 24hr Min/Max: Temp Min: 36.3 ??C (97.3 ??F) Max: 36.9 ??C (98.5 ??F) Pulse Min: 85 Max: 107 BP Min: 137/85 Max: 167/89 Resp Min: 16 Max: 18 SpO2 Min: 95 % Max: 97 % Vitals: 03/24/20 2337 BP: 167/89 Pulse: 85 Resp: 16 Temp: SpO2: 96% Constitutional: well developed, well nourished, cooperative and no apparent distress Head: normocephalic, without obvious abnormality, atraumatic Neurologic: alert and oriented x4 sensation intact all extremities motor 5/5 all extremities Eyes: conjunctivae/corneas clear. PERRL, EOMs intact HENT: mucous membranes moist and lips, mucosa, and tongue normal Neck: c-collar in place Chest: normal appearance, no masses or tenderness Respiratory: clear to auscultation bilaterally and normal chest rise and fall Cardiovascular: regular rate, regular rhythm and systolic murmur Gastrointestinal: bowel sounds present, non-distended and soft non-tender Musculoskeletal: extremities normal, warm and well-perfused and no edema Pulses: radial: bilateral normal and DP: bilateral normal Skin: skin color, texture, turgor normal. No rashes or lesions or ecchymosis noted to right distal neck Labs/Imaging: Recent Results (from the past 72 hour(s)) Tacrolimus level trough Collection Time: 03/22/20 6:48 AM Result Value Ref Range Tacrolimus trough 9.1 ng/mL Tacrolimus level trough Collection Time: 03/23/20 6:46 AM Result Value Ref Range Tacrolimus trough 5.9 ng/mL Tacrolimus level trough Collection Time: 03/24/20 6:30 AM Result Value Ref Range Tacrolimus trough 6.0 ng/mL Xr Chest 2 Views Result Date: 03/20/2020 Comparison is made to prior study performed earlier today at 3:15 AM. In the interval, there has been no change in mild blunting of the costophrenic angles which may represent tiny pleural effusions.Heart size is moderately enlarged. Mild basilar atelectasis is seen. On the lateral projection noteis made of mild basilar pulmonary edema. No pneumothorax is seen. Previously seen upper lung airspace opacities note not seen. Electronically signed by: Melecio Holland M.D. Xr Spine Cervical 2 Or 3 Views Result Date: 03/20/2020 Cervical spine: 4 views were submitted. Study is limited due to a poor open- mouth view. There is prevertebral soft tissue swelling. Patient's known C2 fracture is better demonstrated on the CT. Severe degenerative disc disease at C4-C5. Heavy calcification of the carotid bulbs is noted. Thoracic spine: 4 views were submitted. Alignment is normal. There is very mild age indeterminant wedging at the mid thoracic spine. Otherwise, the vertebral body heights are normal. Lumbar spine: 3 views were submitted. Alignment is normal. Vertebral body heights are normal. No acute fractures. Chest: There is diffuse opacity bilaterally, which are favored to be due to overlying soft tissue. However, if clinically concern for acute pulmonary processes, finding could be further evaluated with a two-view chest radiograph. There is no pneumothorax. Mediastinal contours are normal. Mitral annulus calcifications noted ADDENDUM - This addendum is being placed on the report for a time dependent finding on a p atient who is admitted to the hospital (2B). There is left upper lobe opacity, which could be due to asymmetric pulmonary edema. If clinically indicated, 2 view chest radiograph or chest CT can be ordered for further evaluation. These findings were communicated to Dr. Regina Zaldivar by Deepti Mesa at 7:21AM on 03/20/2020. Dictated by: Deepti Mesa M.D. The radiology attending physician has personally reviewed this study, and had reviewed and/or edited this written report and agrees with it. Electronically signed by: Melecio Holland M.D. Xr Spine Thoracic 3 Vw Result Date: 03/20/2020 Cervical spine: 4 views were submitted. Study is limited due to a poor open- mouth view. There is prevertebral soft tissue swelling. Patient's known C2 fracture is better demonstrated on the CT. Severe degenerative disc disease at C4-C5. Heavy calcification of the carotid bulbs is noted. Thoracic spine: 4 views were submitted. Alignment is normal. There is very mild age indeterminant wedging at the mid thoracic spine. Otherwise, the vertebral body heights are normal. Lumbar spine: 3 views were submitted. Alignment is normal. Vertebral body heights are normal. No acute fractures. Chest: There is diffuse opacity bilaterally, which are favored to be due to overlying soft tissue. However, if clinically concern for acute pulmonary processes, finding could be further evaluated with a two-view chest radiograph. There is no pneumothorax. Mediastinal contours are normal. Mitral annulus calcifications noted ADDENDUM - This addendum is being placed on the report for a time dependent finding on a p atient who is admitted to the hospital (2B). There is left upper lobe opacity, which could be due to asymmetric pulmonary edema. If clinically indicated, 2 view chest radiograph or chest CT can be ordered for further evaluation. These findings were communicated to Dr. eRgina Zaldivar by Deepti Mesa at 7:21AM on 03/20/2020. Dictated by: Deepti Mesa M.D. The radiology attending physician has personally reviewed this study, and had reviewed and/or edited this written report and agrees with it. Electronically signed by: Melecio Holland M.D. Xr Spine Lumbar 2 Or 3 Views Result Date: 03/20/2020 Cervical spine: 4 views were submitted. Study is limited due to a poor open- mouth view. There is prevertebral soft tissue swelling. Patient's known C2 fracture is better demonstrated on the CT. Severe degenerative disc disease at C4-C5. Heavy calcification of the carotid bulbs is noted. Thoracic spine: 4 views were submitted. Alignment is normal. There is very mild age indeterminant wedging at the mid thoracic spine. Otherwise, the vertebral body heights are normal. Lumbar spine: 3 views were submitted. Alignment is normal. Vertebral body heights are normal. No acute fractures. Chest: There is diffuse opacity bilaterally, which are favored to be due to overlying soft tissue. However, if clinically concern for acute pulmonary processes, finding could be further evaluated with a two-view chest radiograph. There is no pneumothorax. Mediastinal contours are normal. Mitral annulus calcifications noted ADDENDUM - This addendum is being placed on the report for a time dependent finding on a p atient who is admitted to the hospital (2B). There is left upper lobe opacity, which could be due to asymmetric pulmonary edema. If clinically indicated, 2 view chest radiograph or chest CT can be ordered for further evaluation. These findings were communicated to Dr. Regina Zaldivar by Deepti Mesa at 7:21AM on 03/20/2020. Dictated by: Deepti Mesa M.D. The radiology attending physician has personally reviewed this study, and had reviewed and/or edited this written report and agrees with it. Electronically signed by: Melecio Holland M.D. Xr Chest 1 Vw Portable Result Date: 03/20/2020 Cervical spine: 4 views were submitted. Study is limited due to a poor open- mouth view. There is prevertebral soft tissue swelling. Patient's known C2 fracture is better demonstrated on the CT. Severe degenerative disc disease at C4-C5. Heavy calcification of the carotid bulbs is noted. Thoracic spine: 4 views were submitted. Alignment is normal. There is very mild age indeterminant wedging at the mid thoracic spine. Otherwise, the vertebral body heights are normal. Lumbar spine: 3 views were submitted. Alignment is normal. Vertebral body heights are normal. No acute fractures. Chest: There is diffuse opacity bilaterally, which are favored to be due to overlying soft tissue. However, if clinically concern for acute pulmonary processes, finding could be further evaluated with a two-view chest radiograph. There is no pneumothorax. Mediastinal contours are normal. Mitral annulus calcifications noted ADDENDUM - This addendum is being placed on the report for a time dependent finding on a p atient who is admitted to the hospital (2B). There is left upper lobe opacity, which could be due to asymmetric pulmonary edema. If clinically indicated, 2 view chest radiograph or chest CT can be ordered for further evaluation. These findings were communicated to Dr. Regina Zaldivar by Deepti Mesa at 7:21AM on 03/20/2020. Dictated by: Deepti Mesa M.D. The radiology attending physician has personally reviewed this study, and had reviewed and/or edited this written report and agrees with it. Electronically signed by: Melecio Holland M.D. Mri Spine Cervical And Thoracic Wo Contrast Result Date: 03/20/2020 1. Acute comminuted C2 vertebral body fracture extending to the right pedicle and transverse foramen, and left superior articular facet. Associated left C1-C2 facet joint injury and C1-C2 interspinous ligamentous injury. No cord signal abnormality. 2. Additional nondisplaced fracture versus bone contusion of the left lateral mass of C1. 3. Focal disruption of the anterolateral ligament at C2 level, with prevertebral hematoma/edema and trace epidural hematoma. 4. Acute compression fractures of T2 and T3 vertebral bodies, with mild height loss. 5. Degenerative changes of cervical spine as detailed above. Dictated by: Ari Navarro M.D. The radiology attending physician has personallyreviewed this study, and had reviewed and/or edited this written report and agrees with it. Electronically signed by: Danna Ying M.D. Cta Head Neck W Wo Contrast Result Date: 03/20/2020 1. No acute intracranial abnormality. 2. No large vessel occlusion or vascular injury. 3. C2 vertebral body fracture extending into the lateral masses and right pedicle. Dictated by: Gerber Cruz M.D. The radiology attending physician has personally reviewed this study, and had reviewed and/or edited this written report and agrees with it. Electronically signed by: Danna Ying M.D. Ct Thoracic And Lumbar Spine Wo Contrast Result Date: 03/20/2020 1. C2 comminuted vertebral body fracture with involvement of the lateral masses and right pedicle. 2. No acute fracture the thoracic or lumbar spine. Mild T3 vertebral body height loss, likely chronic given absence of edema on the contemporaneous MRI. Addendum: there is T3 edema on the MR suggestive of an acute compression fracture. AlthoughT2 vertebral body and left lateral mass of C1 have marrow edema as seen on MR, no fracture is clearly seen on the CT suggestive of occult fractures. Dictated by: Gerber Cruz M.D. The radiology attending physician has personally reviewed this study, and had reviewed and/or edited this written report and agrees with it. Electronically signed by: Danna Ying M.D. Neuro Ct Mr Outside Consult Result Date: 03/20/2020 1. Unstable comminuted C2 body fracture with extension into the lateral masses and probable involvement of the right foramen transversarium. Recommend CTA head and neck to evaluate for possible arterial injury. The Critical results were discussed with Dr. Mcelroy by Dr. Hameed on 03/20/2020 at 3:37AM The findings, conclusions and recommendations within this report do not replace the initial findings, conclusions and recommendations made at the facility where the study was performed based upon the imaging and clinical condition at that time. Comparison with the prior report and clinical history is necessary. The provided images may or may not represent the [place] source data set and thus may contain changes that may lower the accuracy of this second-opinion interpretation. Dictated by: Alice Hameed M.D. The radiology attending physician has personally reviewed this study, and had reviewed and/or edited this written report and agrees with it. Electronically signed by: KatieD. Stepan M.D. Neuro Ct Mr Outside Consult Result Date: 03/20/2020 1. Unstable comminuted C2 body fracture with extension into the lateral masses and probable involvement of the right foramen transversarium. Recommend CTA head and neck to evaluate for possible arterial injury. The Critical results were discussed with Dr. Mcelroy by Dr. Hameed on 03/20/2020 at 3:37AM The findings, conclusions and recommendations within this report do not replace the initial findings, conclusions and recommendations made at the facility where the study was performed based upon the imaging and clinical condition at that time. Comparison with the prior report and clinical history is necessary. The provided images may or may not represent the [place] source data set and thus may contain changes that may lower the accuracy of this second-opinion interpretation. Dictated by: Alice Hameed M.D. The radiology attending physician has personally reviewed this study, and had reviewed and/or edited this written report and agrees with it. Electronically signed by: KatieD. Stepan M.D. Ct Recon Cervical Spine W Contrast Result Date: 03/20/2020 1. C2 comminuted vertebral body fracture with involvement of the lateral masses and right pedicle. 2. No acute fracture the thoracic or lumbar spine. Mild T3 vertebral body height loss, likely chronic given absence of edema on the contemporaneous MRI. Addendum: there is T3 edema on the MR suggestive of an acute compression fracture. AlthoughT2 vertebral body and left lateral mass of C1 have marrow edema as seen on MR, no fracture is clearly seen on the CT suggestive of occult fractures. Dictated by: Gerber Cruz M.D. The radiology attending physician has personally reviewed this study, and had reviewed and/or edited this written report and agrees with it. Electronically signed by: Danna Ying M.D. Assessment and Plan: Principal Problem: Traumatic closed fracture of C2 vertebra with minimal displacement (CMS/HCC) Active Problems: History of kidney transplant Injury to ligament of cervical spine Acute pain due to trauma HTN (hypertension) CAD (coronary artery disease) Hypothyroidism Chronic UTI #C2 vertebral body fx extending into the pedicle/transverse foramen and C1-C2 facet joint #C2 anterolateral ligament injury + trace epidural hematoma - Ortho-Spine consulted - CTA Head and Neck neg for vascular injury - Nonoperative management - Strict cervical precautions - Alutiiq J collar - Uprights completed - PT/OT - Pain control - Follow up with Ortho spine Dr. Barahona in 1 week for repeat C-spine CT #T2/T3 vertebral body fractures - Ortho-Spine consulted - CT T/L spine- likely chronic #Acute pain due to trauma - APAP q6 and oxy PRN (decreased to 2.5mg) #Kidney transplant - Renal Transplant consulted - 03/21: Tacrolimus level 17.6- hold dosing - Daily AM tacrolimus level - Continue prednisone 5 mg daily - Continue acyclovir 200 mg BID for history of shingles #HTN - Continue home metop 50 BID, lisinopril 10 - 03/21: Increased metoprolol to 75mg BID - vitals q4h #CAD - Hold ASA 81 - Continue home lipitor #hypothyroidism - Continue home synthroid 100 #h/o multiple UTIs - Continue home trimethoprim 100 - UA +, Culture from 03/19 Coag negative staph - Culture 03/21 NGTD #DVT PPx: Lovenox #Dispo: Rehab vs home Marianne Valle NP Section of Acute and Critical Care Surgery I have seen and examined this patient in conjunction with the non-physician provider on the date ofservice as documented on the NPP note and have reviewed and confirmed the history.My Exam: Patient awake and alert. Continues to complain of neck pain. Has been OOB to chair but has not ambulated Assessment and Plan: Need PT/OT eval. Suspect patient may need to discharge to inpatient facility Yenny Baugh MD Section of Acute and Critical Care Surgery Cosigned by iSxto Navarrete III, MD at 03/27/2020 8:54 AM CDT * Darlin Burgos MD PhD - 03/24/2020 10:18 AM CDT Orthopaedic Spine Surgery Daily Progress Note 85 y/o F p/w C2 comminuted vertebral body fx with extension to bilateral lateral masses and right pedicle, left C1-C2 facet injury and C1-C2 interspinous ligament injury. Subjective NAEO. Exam unchanged. Objective MOST RECENT VITALS: 24hr Min/Max: Temp Min: 36.3 ??C (97.3 ??F) Max: 36.8 ??C (98.2 ??F) Pulse Min: 84 Max: 103 BP Min: 137/85 Max: 188/99 Resp Min: 16 Max: 18 SpO2 Min: 93 % Max: 97 % Most Recent: Vitals: 03/24/20 0729 BP: 137/85 Pulse: 97 Resp: 16 Temp: 36.6 ??C (97.8 ??F) SpO2: 97% Intake/Output Summary (Last 24 hours) at 03/24/2020 1018 Last data filed at 03/23/2020 2315 Gross per 24 hour Intake -- Output 250 ml Net -250 ml Date 03/23/20699 - 03/24/20 0603/24/20699 - 03/25/20 0659 Shift 1488-4613 2547-0657 24 Hour Total 5080-7307 1113-5429 24 Hour Total INTAKE Shift Total(mL/kg) OUTPUT Urine(mL/kg/hr) 250(0.3) 250(0.2) Shift Total(mL/kg) 250(4.2) 250(4.2) NET -250 -250 Weight (kg) 60 60 60 60 60 60 Physical Exam: General: NAD, well-developed well-nourished Lungs: Unlabored breathing Cardiac: Regular rate Abdomen: Soft, nontender, nondistended Extremities: Warm and well perfused Spine: BUE: 11/07 D/B/T/WE/WF/IO/Dial Maker, SILT throughout BLE: 11/07 I/Q/H/TA/G/EHL/FHL, SILT throughout No clonus (-) Babinski (-) Shine's Lab/Diagnostic Review: Recent Labs Lab Units 03/21/20 0505 03/19/20 2044 SODIUM mmol/L 137 139 POTASSIUM PLASMA mmol/L 4.9 5.0* CHLORIDE mmol/L 106 105 CO2 mmol/L 21* 25 ANIONGAP mmol/L 10 9 GLUCOSE mg/dL 124 129 BUN SERUM mg/dL 32* 27* CREATININE mg/dL 0.86 0.84 CALCIUM mg/dL 9.9 10.2 ALBUMIN g/dL -- 4.1 ALK PHOS Units/L -- 115 ALT Units/L -- 17 AST Units/L -- 24 BILIRUBIN TOTAL mg/dL -- 0.8 WBC K/cumm 9.5 8.5 HEMOGLOBIN g/dL 13.2 13.6 HEMATOCRIT % 40.4 40.3 PLATELETS K/cumm 121* 121* NEUTROS PCT % -- 88.6 LYMPHS PCT % -- 4.7 MONOS PCT % -- 5.9 EOS PCT % -- 0.0 APTT sec -- 26 INR -- 1.1 Radiology Review: Xr Spine Cervical 2 Or 3 Views Result Date: 03/21/2020 Nondisplaced fracture of the dens, better seen on prior CT, with mild prevertebral soft tissue swelling Electronically signed by: Diane Moreno M.D. Assessment/Plan - Plan for non-operative management - Imaging studies: upright C-spine XRs in Alutiiq J completed - Brace: Alutiiq J C-collar, should be removed twice daily for skin checks and hygiene - Neurochecks: q4 hours - Spinal Precautions: strict C-spine precautions - Activity: OOB, up to chair - Diet: per primary team - DVT prophylaxis: per primary team - Follow-up scheduled w/ Dr. Barahona on 03/30 Ortho Spine signing off at this time. Please call Ortho Spine if the patient develops any concerning changes to their neurologic exam such as new weakness or loss of bowel/bladder function. Darlin Burgos MD Orthopaedic Surgery Resident [phone] ?? If you have questions, please call the Orthopaedic Spine Consult Pager [phone] to be directed to the correct Orthopaedic Surgery resident. ?? If you know the resident's name on the appropriate orthopaedic surgery team, please use [email or web address] to page resident directly. * Marianne Valle, GENEVIEVE - 03/24/2020 5:36 AM CDT [facility] Geriatric Trauma Surgery Daily Progress Note Admit: 03/19/2020 8:19 PM Date: March 24, 2020 Length of Stay: 4 Attending: Deacon Shashi Alegre MD POD:* No surgery found * History: Juliet Dunlap is a 85 y.o. female with a past medical history kidney transplant in 2012,??CAD, HTN, hypothyroidism, HBV, GERD, hiatal hernia, HLD??who presented as a transfer from [facility] with C2 comminuted vertebral body fracture with extension to bilateral masses and right foramen, C4/5 anterolisthesis. She was noted to be neuro intact. Head CT scan reportedly without acute abnormality. There was no other concern for other injury based on exam. Patient ambulated after the event. Upon presentation the patient was evaluated by orthopedic spine surgery who recommended non operative management in a Alutiiq J collar. CTA demonstrated no large vessel occlusion or vascular injury. Renal transplant was consulted and home medications were continued. Patient was admitted to the floor for therapy evaluation. ?? Interval History: 03/24: no acute events over night. tacro level yesterday was 5.9 from 9.1. follow up am level and recs from onc. dispo planning already in progress 03/23: Pending disposition. Will follow up with SW. Tacrolimus level 9.1. 03/22: Alutiiq J and uprights completed. AM tacro level 9. Increased metoprolol to 75mg BID for HTN. Added flexeril for muscle tightness. 03/21:Spoke with pt's at bedside last night. Will await Alutiiq J today and then obtain upright xrays.Rosales removed and labs pending 03/20- New admit to floor ?? Pain:controlled Nausea: No Flatus: Yes Bowel Movement: No Medications: Current Facility-Administered Medications: ??? acetaminophen (TYLENOL) tablet 1,000 mg, 1,000 mg, oral, Q6H [facility], Jose So MD, 1,000 mg at 03/24/20 0240 ??? acyclovir (ZOVIRAX) capsule 200 mg, 200 mg, oral, BID, Mikayla Jimenez MD, 200 mg at 03/23/202035 ??? cyclobenzaprine (FLEXERIL) tablet 5 mg, 5 mg, oral, TID, Jocelynn Otero NP, 5 mg at 03/23/202128 ??? enoxaparin (LOVENOX) syringe 30 mg, 30 mg, subcutaneous, Q12H [facility], Samia Thompson NP, 30 mg at 03/23/202033 ??? gabapentin (NEURONTIN) capsule 300 mg, 300 mg, oral, BID, Marianne Valle NP, 300mg at 03/23/202035 ??? levothyroxine (SYNTHROID) tablet 100 mcg, 100 mcg, oral, Daily - 0600, Jose So MD, 100 mcg at 03/24/20 0531 ??? lidocaine (LIDODERM) 5 % patch 2 patch, 2 patch, transdermal, Daily, Marianne Valle NP, Stopped at 03/23/202041 ??? lisinopriL (PRINIVIL,ZESTRIL) tablet 10 mg, 10 mg, oral, Daily - 0600, Jose So MD, 10 mg at 03/24/20 0531 ??? metoprolol tartrate (LOPRESSOR) immediate release tablet 75 mg, 75 mg, oral, BID, Kesha Maurice NP, 75 mg at 03/23/202038 ??? oxyCODONE (ROXICODONE) tablet 2.5 mg, 2.5 mg, oral, Q4H PRN, Samia Thompson NP, 2.5 mg at 03/24/20 0240 ??? polyethylene glycol (MIRALAX) packet 17 g, 17 g, oral, Daily, Kesha Lawrence NP, 17 g at03/23/20 0854 ??? pravastatin (PRAVACHOL) tablet 20 mg, 20 mg, oral, Nightly, Jose So MD, 20 mg at03/23/202035 ??? predniSONE (DELTASONE) tablet 5 mg, 5 mg, oral, Daily, Jose So MD, 5 mg at 03/23/20 0853 ??? senna-docusate (PERICOLACE) 8.6-50 mg per tablet 2 tablet, 2 tablet, oral, BID, Kesha Lawrence NP, 2 tablet at 03/23/202033 ??? tacrolimus (PROGRAF) capsule 0.5 mg, 0.5 mg, oral, Q12H BLAIEN, Mikayla Jimenez MD, 0.5 mg at 03/23/202035 ??? trimethoprim (TRIMPEX) tablet 100 mg, 100 mg, oral, Nightly, Jose So MD, 100 mg at 03/23/202034 Diet: Dietary Orders (From admission, onward) Start Ordered 03/22/20 1700 Oral Nutrition Supplements Select Supplement: Ensure - Jeffery; Quantity (# of cans): 1 can All Meals Question Answer Comment Select Supplement: Ensure - Jeffery Quantity (# of cans): 1 can 03/22/20 1634 03/22/20 1700 Oral Nutrition Supplements Select Supplement: Ensure Clear - Apple; Quantity (# of cans): 1 can All Meals Question Answer Comment Select Supplement: Ensure Clear - Apple Quantity (# of cans): 1 can 03/22/20 1634 03/20/20 1615 Adult Diet Regular Diet effective now Question: ([facility]) Diet type Answer: Regular 03/20/20 1614 Activity: As tolerated Is&Os: No intake/output data recorded. I/O this shift: In: - Out: 250 [Urine:250] Physical Exam: 24hr Min/Max: Temp Min: 36.3 ??C (97.3 ??F) Max: 36.8 ??C (98.2 ??F) Pulse Min: 84 Max: 103 BP Min: 137/95 Max: 188/99 Resp Min: 16 Max: 18 SpO2 Min: 93 % Max: 95 % Vitals: 03/24/20 0425 BP: 152/79 Pulse: 92 Resp: 16 Temp: 36.3 ??C (97.3 ??F) SpO2: 95% Constitutional: well developed, well nourished, cooperative and no apparent distress Head: normocephalic, without obvious abnormality, atraumatic Neurologic: alert and oriented x4 sensation intact all extremities motor 5/5 all extremities Eyes: conjunctivae/corneas clear. PERRL, EOMs intact HENT: mucous membranes moist and lips, mucosa, and tongue normal Neck: c-collar in place, right distal neck bruising Chest: normal appearance, no masses or tenderness Respiratory: clear to auscultation bilaterally and normal chest rise and fall Cardiovascular: regular rate, regular rhythm and systolic murmur Gastrointestinal: bowel sounds present, non-distended and soft non-tender Musculoskeletal: extremities normal, warm and well-perfused and no edema Pulses: radial: bilateral normal Skin: skin color, texture, turgor normal. No rashes or lesions Labs/Imaging: Recent Results (from the past 72 hour(s)) Urine culture Urine, clean voided Collection Time: 03/21/20 3:36 PM Specimen: Urine, clean voided Result Value Ref Range Report Final Report: Less than 100,000 colonies/mL (clinically insignificant growth based on current clinical standards) Organism (CLINICALLY INSIGNIFICANT GROWTH Tacrolimus level trough Collection Time: 03/22/20 6:48 AM Result Value Ref Range Tacrolimus trough 9.1 ng/mL Tacrolimus level trough Collection Time: 03/23/20 6:46 AM Result Value Ref Range Tacrolimus trough 5.9 ng/mL Xr Chest 2 Views Result Date: 03/20/2020 Comparison is made to prior study performed earlier today at 3:15 AM. In the interval, there has been no change in mild blunting of the costophrenic angles which may represent tiny pleural effusions.Heart size is moderately enlarged. Mild basilar atelectasis is seen. On the lateral projection noteis made of mild basilar pulmonary edema. No pneumothorax is seen. Previously seen upper lung airspace opacities note not seen. Electronically signed by: Melecio Holland M.D. Xr Spine Cervical 2 Or 3 Views Result Date: 03/20/2020 Cervical spine: 4 views were submitted. Study is limited due to a poor open- mouth view. There is prevertebral soft tissue swelling. Patient's known C2 fracture is better demonstrated on the CT. Severe degenerative disc disease at C4-C5. Heavy calcification of the carotid bulbs is noted. Thoracic spine: 4 views were submitted. Alignment is normal. There is very mild age indeterminant wedging at the mid thoracic spine. Otherwise, the vertebral body heights are normal. Lumbar spine: 3 views were submitted. Alignment is normal. Vertebral body heights are normal. No acute fractures. Chest: There is diffuse opacity bilaterally, which are favored to be due to overlying soft tissue. However, if clinically concern for acute pulmonary processes, finding could be further evaluated with a two-view chest radiograph. There is no pneumothorax. Mediastinal contours are normal. Mitral annulus calcifications noted ADDENDUM - This addendum is being placed on the report for a time dependent finding on a p atient who is admitted to the hospital (2B). There is left upper lobe opacity, which could be due to asymmetric pulmonary edema. If clinically indicated, 2 view chest radiograph or chest CT can be ordered for further evaluation. These findings were communicated to Dr. Regina Zaldivar by Deepti Mesa at 7:21AM on 03/20/2020. Dictated by: Deepti Mesa M.D. The radiology attending physician has personally reviewed this study, and had reviewed and/or edited this written report and agrees with it. Electronically signed by: Melecio Holland M.D. Xr Spine Thoracic 3 Vw Result Date: 03/20/2020 Cervical spine: 4 views were submitted. Study is limited due to a poor open- mouth view. There is prevertebral soft tissue swelling. Patient's known C2 fracture is better demonstrated on the CT. Severe degenerative disc disease at C4-C5. Heavy calcification of the carotid bulbs is noted. Thoracic spine: 4 views were submitted. Alignment is normal. There is very mild age indeterminant wedging at the mid thoracic spine. Otherwise, the vertebral body heights are normal. Lumbar spine: 3 views were submitted. Alignment is normal. Vertebral body heights are normal. No acute fractures. Chest: There is diffuse opacity bilaterally, which are favored to be due to overlying soft tissue. However, if clinically concern for acute pulmonary processes, finding could be further evaluated with a two-view chest radiograph. There is no pneumothorax. Mediastinal contours are normal. Mitral annulus calcifications noted ADDENDUM - This addendum is being placed on the report for a time dependent finding on a p atient who is admitted to the hospital (2B). There is left upper lobe opacity, which could be due to asymmetric pulmonary edema. If clinically indicated, 2 view chest radiograph or chest CT can be ordered for further evaluation. These findings were communicated to Dr. Regina Zaldivar by Deepti Mesa at 7:21AM on 03/20/2020. Dictated by: Deepti Mesa M.D. The radiology attending physician has personally reviewed this study, and had reviewed and/or edited this written report and agrees with it. Electronically signed by: Melecio Holland M.D. Xr Spine Lumbar 2 Or 3 Views Result Date: 03/20/2020 Cervical spine: 4 views were submitted. Study is limited due to a poor open- mouth view. There is prevertebral soft tissue swelling. Patient's known C2 fracture is better demonstrated on the CT. Severe degenerative disc disease at C4-C5. Heavy calcification of the carotid bulbs is noted. Thoracic spine: 4 views were submitted. Alignment is normal. There is very mild age indeterminant wedging at the mid thoracic spine. Otherwise, the vertebral body heights are normal. Lumbar spine: 3 views were submitted. Alignment is normal. Vertebral body heights are normal. No acute fractures. Chest: There is diffuse opacity bilaterally, which are favored to be due to overlying soft tissue. However, if clinically concern for acute pulmonary processes, finding could be further evaluated with a two-view chest radiograph. There is no pneumothorax. Mediastinal contours are normal. Mitral annulus calcifications noted ADDENDUM - This addendum is being placed on the report for a time dependent finding on a p atient who is admitted to the hospital (2B). There is left upper lobe opacity, which could be due to asymmetric pulmonary edema. If clinically indicated, 2 view chest radiograph or chest CT can be ordered for further evaluation. These findings were communicated to Dr. Regina Zaldivar by Deepti Mesa at 7:21AM on 03/20/2020. Dictated by: Deepti Mesa M.D. The radiology attending physician has personally reviewed this study, and had reviewed and/or edited this written report and agrees with it. Electronically signed by: Melecio Holland M.D. Xr Chest 1 Vw Portable Result Date: 03/20/2020 Cervical spine: 4 views were submitted. Study is limited due to a poor open- mouth view. There is prevertebral soft tissue swelling. Patient's known C2 fracture is better demonstrated on the CT. Severe degenerative disc disease at C4-C5. Heavy calcification of the carotid bulbs is noted. Thoracic spine: 4 views were submitted. Alignment is normal. There is very mild age indeterminant wedging at the mid thoracic spine. Otherwise, the vertebral body heights are normal. Lumbar spine: 3 views were submitted. Alignment is normal. Vertebral body heights are normal. No acute fractures. Chest: There is diffuse opacity bilaterally, which are favored to be due to overlying soft tissue. However, if clinically concern for acute pulmonary processes, finding could be further evaluated with a two-view chest radiograph. There is no pneumothorax. Mediastinal contours are normal. Mitral annulus calcifications noted ADDENDUM - This addendum is being placed on the report for a time dependent finding on a p atient who is admitted to the hospital (2B). There is left upper lobe opacity, which could be due to asymmetric pulmonary edema. If clinically indicated, 2 view chest radiograph or chest CT can be ordered for further evaluation. These findings were communicated to Dr. Regina Zaldivar by Deepti Mesa at 7:21AM on 03/20/2020. Dictated by: Deepti Mesa M.D. The radiology attending physician has personally reviewed this study, and had reviewed and/or edited this written report and agrees with it. Electronically signed by: Melecio Holland M.D. Mri Spine Cervical And Thoracic Wo Contrast Result Date: 03/20/2020 1. Acute comminuted C2 vertebral body fracture extending to the right pedicle and transverse foramen, and left superior articular facet. Associated left C1-C2 facet joint injury and C1-C2 interspinous ligamentous injury. No cord signal abnormality. 2. Additional nondisplaced fracture versus bone contusion of the left lateral mass of C1. 3. Focal disruption of the anterolateral ligament at C2 level, with prevertebral hematoma/edema and trace epidural hematoma. 4. Acute compression fractures of T2 and T3 vertebral bodies, with mild height loss. 5. Degenerative changes of cervical spine as detailed above. Dictated by: Ari Navarro M.D. The radiology attending physician has personallyreviewed this study, and had reviewed and/or edited this written report and agrees with it. Electronically signed by: Danna Ying M.D. Cta Head Neck W Wo Contrast Result Date: 03/20/2020 1. No acute intracranial abnormality. 2. No large vessel occlusion or vascular injury. 3. C2 vertebral body fracture extending into the lateral masses and right pedicle. Dictated by: Gerber Cruz M.D. The radiology attending physician has personally reviewed this study, and had reviewed and/or edited this written report and agrees with it. Electronically signed by: Danna Ying M.D. Ct Thoracic And Lumbar Spine Wo Contrast Result Date: 03/20/2020 1. C2 comminuted vertebral body fracture with involvement of the lateral masses and right pedicle. 2. No acute fracture the thoracic or lumbar spine. Mild T3 vertebral body height loss, likely chronic given absence of edema on the contemporaneous MRI. Addendum: there is T3 edema on the MR suggestive of an acute compression fracture. AlthoughT2 vertebral body and left lateral mass of C1 have marrow edema as seen on MR, no fracture is clearly seen on the CT suggestive of occult fractures. Dictated by: Gerber Cruz M.D. The radiology attending physician has personally reviewed this study, and had reviewed and/or edited this written report and agrees with it. Electronically signed by: Danna Ying M.D. Neuro Ct Mr Outside Consult Result Date: 03/20/2020 1. Unstable comminuted C2 body fracture with extension into the lateral masses and probable involvement of the right foramen transversarium. Recommend CTA head and neck to evaluate for possible arterial injury. The Critical results were discussed with Dr. Mcelroy by Dr. Hameed on 03/20/2020 at 3:37AM The findings, conclusions and recommendations within this report do not replace the initial findings, conclusions and recommendations made at the facility where the study was performed based upon the imaging and clinical condition at that time. Comparison with the prior report and clinical history is necessary. The provided images may or may not represent the [place] source data set and thus may contain changes that may lower the accuracy of this second-opinion interpretation. Dictated by: Alice Hameed M.D. The radiology attending physician has personally reviewed this study, and had reviewed and/or edited this written report and agrees with it. Electronically signed by: KatieD. Stepan M.D. Neuro Ct Mr Outside Consult Result Date: 03/20/2020 1. Unstable comminuted C2 body fracture with extension into the lateral masses and probable involvement of the right foramen transversarium. Recommend CTA head and neck to evaluate for possible arterial injury. The Critical results were discussed with Dr. Mcelroy by Dr. Hameed on 03/20/2020 at 3:37AM The findings, conclusions and recommendations within this report do not replace the initial findings, conclusions and recommendations made at the facility where the study was performed based upon the imaging and clinical condition at that time. Comparison with the prior report and clinical history is necessary. The provided images may or may not represent the [place] source data set and thus may contain changes that may lower the accuracy of this second-opinion interpretation. Dictated by: Alice Hameed M.D. The radiology attending physician has personally reviewed this study, and had reviewed and/or edited this written report and agrees with it. Electronically signed by: KatieD. Stepan M.D. Ct Recon Cervical Spine W Contrast Result Date: 03/20/2020 1. C2 comminuted vertebral body fracture with involvement of the lateral masses and right pedicle. 2. No acute fracture the thoracic or lumbar spine. Mild T3 vertebral body height loss, likely chronic given absence of edema on the contemporaneous MRI. Addendum: there is T3 edema on the MR suggestive of an acute compression fracture. AlthoughT2 vertebral body and left lateral mass of C1 have marrow edema as seen on MR, no fracture is clearly seen on the CT suggestive of occult fractures. Dictated by: Gerber Cruz M.D. The radiology attending physician has personally reviewed this study, and had reviewed and/or edited this written report and agrees with it. Electronically signed by: Danna Ying M.D. Assessment and Plan: Principal Problem: Traumatic closed fracture of C2 vertebra with minimal displacement (CMS/HCC) Active Problems: History of kidney transplant Injury to ligament of cervical spine Acute pain due to trauma HTN (hypertension) CAD (coronary artery disease) Hypothyroidism Chronic UTI #C2 vertebral body fx extending into the pedicle/transverse foramen and C1-C2 facet joint #C2 anterolateral ligament injury + trace epidural hematoma - Ortho-Spine consulted - CTA Head and Neck neg for vascular injury - Nonoperative management - Strict cervical precautions - Alutiiq J collar - Uprights completed - PT/OT - Pain control - Follow up with Ortho spine Dr. Barahona in 1 week for repeat C-spine CT #T2/T3 vertebral body fractures - Ortho-Spine consulted - CT T/L spine- likely chronic #Acute pain due to trauma - APAP q6 and oxy PRN (decreased to 2.5mg) #Kidney transplant - Renal Transplant consulted - 03/21: Tacrolimus level 17.6- hold dosing - Daily AM tacrolimus level - Continue prednisone 5 mg daily - Continue acyclovir 200 mg BID for history of shingles #HTN - Continue home metop 50 BID, lisinopril 10 - 03/21: Increased metoprolol to 75mg BID - vitals q4h #CAD - Hold ASA 81 - Continue home lipitor #hypothyroidism - Continue home synthroid 100 #h/o multiple UTIs - Continue home trimethoprim 100 - UA +, Culture from 03/19 Coag negative staph - Culture 03/21 NGTD #DVT PPx: Lovenox #Dispo: Rehab Marianne Valle NP I have seen and examined this patient in conjunction with the non-physician provider on the date ofservice as documented on the NPP note and have reviewed and confirmed the history.My Exam: Patient is awake and alert. Continues to complain of pain in her neck. She reports that she hasnt ambulated since admission due to concern for pain Assessment and Plan: Patient with C2 fracture managed with Alutiiq J collar. Patient's family would like her to return home, but may not be a safe option if patient is unable to ambulate or complete her ADLs. Will need to work with PT/OT. Patient may require rehab versus SNF depending on her ability to perform PT/OT Yenny Baugh MD Section of Acute and Critical Care Surgery Cosigned by Sixto Navarrete III, MD at 03/25/2020 8:56 AM CDT * Chaz Bedoya - 03/23/2020 4:33 PM CDT Spiritual Care Note Respiratory Physician: Eugene Kinney, [facility] Date: 03/23/2020 Time: 1450 03/23/20 1400 Time Spent Start Time 1450 Stop Time 1510 Time Calculation (min) 20 min Patient Spiritual Assessment Spirituality Assessed Yes Gnosticism Affiliation Buddhist Active in Yarsanism Yes Spiritual Needs Prayer Clinical Encounter Type Visited With Patient and family together Response Type Routine visit Routine Visit Introduction Reason for visit Support Referral From Family Outcomes and Interventions Outcomes Preserve dignity and respect;Demonstrating care and respect;Elvia affirmation;Establish rapport and connectedness Interventions Active listening;Explore cultural values;Explore elvia and values;Offer emotional support;Offer spiritual/quaker support * Mikayla Jimenez MD - 03/23/2020 1:30 PM CDT Brief TXP Nephrology Note 1) Patient remains hypertensive - recommend increasing Metoprolol to 100 mg BID this PM. 2) Continue tacrolimus 0.5 mg BID, level down from 17.6 to 9.1 this morning. 3) Urine culture negative. Continue UTI-ppx with trimethoprim 100 mg qHS. Unable to contact primary team. Additional dose of 25 mg x1 ordered for now. HR stable. D/w RN 03/23/20 Mikayla Jimenez MD Nephrology Fellow, PGY-V Transplant Nephrology Service After hours and weekends: please page [phone] * Samia Thompson NP - 03/23/2020 8:23 AM CDT [facility] Geriatric Trauma Surgery Daily Progress Note Admit: 03/19/2020 8:19 PM Date: March 23, 2020 Length of Stay: 3 Attending: Deacon Shashi Alegre MD POD:* No surgery found * History: Juliet Dunlap is a 85 y.o. female with a past medical history kidney transplant in 2012,??CAD, HTN, hypothyroidism, HBV, GERD, hiatal hernia, HLD??who presented as a transfer from [facility] with C2 comminuted vertebral body fracture with extension to bilateral masses and right foramen, C4/5 anterolisthesis. She was noted to be neuro intact. Head CT scan reportedly without acute abnormality. There was no other concern for other injury based on exam. Patient ambulated after the event. Upon presentation the patient was evaluated by orthopedic spine surgery who recommended non operative management in a Alutiiq J collar. CTA demonstrated no large vessel occlusion or vascular injury. Renal transplant was consulted and home medications were continued. Patient was admitted to the floor for therapy evaluation. ?? Interval History: 03/23: Pending disposition. Will follow up with SW. Tacrolimus level 9.1. 03/22: Alutiiq J and uprights completed. AM tacro level 9. Increased metoprolol to 75mg BID for HTN. Added flexeril for muscle tightness. 03/21:Spoke with pt's at bedside last night. Will await Alutiiq J today and then obtain upright xrays.Rosales removed and labs pending 03/20- New admit to floor ?? Pain:controlled Nausea: No Flatus: Yes Bowel Movement: No Medications: Current Facility-Administered Medications: ??? acetaminophen (TYLENOL) tablet 1,000 mg, 1,000 mg, oral, Q6H [facility], Jose So MD, 1,000 mg at 03/22/202044 ??? acyclovir (ZOVIRAX) capsule 200 mg, 200 mg, oral, BID, Mikayla Jimenez MD, 200 mg at 03/22/202045 ??? cyclobenzaprine (FLEXERIL) tablet 5 mg, 5 mg, oral, TID, Jocelynn Otero, GENEVIEVE, 5 mg at 03/22/202045 ??? enoxaparin (LOVENOX) syringe 30 mg, 30 mg, subcutaneous, Q12H BLAINE, Samia Thompson NP, 30 mg at 03/22/202044 ??? gabapentin (NEURONTIN) capsule 300 mg, 300 mg, oral, BID, Marianne Valle NP, 300mg at 03/23/20633 ??? levothyroxine (SYNTHROID) tablet 100 mcg, 100 mcg, oral, Daily - 0600, Jose So MD, 100 mcg at 03/23/20633 ??? lidocaine (LIDODERM) 5 % patch 2 patch, 2 patch, transdermal, Daily, Marianne Valle NP ??? lisinopriL (PRINIVIL,ZESTRIL) tablet 10 mg, 10 mg, oral, Daily - 0600, Jose So MD, 10 mg at 03/23/20633 ??? metoprolol tartrate (LOPRESSOR) immediate release tablet 75 mg, 75 mg, oral, BID, Kesha Maurice NP, 75 mg at 03/22/202045 ??? oxyCODONE (ROXICODONE) tablet 5 mg, 5 mg, oral, Q4H PRN, Jose So MD, 5 mg at 03/23/20456 ??? polyethylene glycol (MIRALAX) packet 17 g, 17 g, oral, Daily, Kesha Lawrence NP ??? pravastatin (PRAVACHOL) tablet 20 mg, 20 mg, oral, Nightly, Jose So MD, 20 mg at03/22/202045 ??? predniSONE (DELTASONE) tablet 5 mg, 5 mg, oral, Daily, Jose So MD, 5 mg at 03/22/20913 ??? senna-docusate (PERICOLACE) 8.6-50 mg per tablet 2 tablet, 2 tablet, oral, BID, Kesha Lawrence NP, 2 tablet at 03/22/20913 ??? tacrolimus (PROGRAF) capsule 0.5 mg, 0.5 mg, oral, Q12H BLAINE, Mikayla Jimenez MD, 0.5 mg at 03/22/202045 ??? trimethoprim (TRIMPEX) tablet 100 mg, 100 mg, oral, Nightly, Jose So MD, 100 mg at 03/22/202044 Diet: Dietary Orders (From admission, onward) Start Ordered 03/22/20 1700 Oral Nutrition Supplements Select Supplement: Ensure - Jeffery; Quantity (# of cans): 1 can All Meals Question Answer Comment Select Supplement: Ensure - Jeffery Quantity (# of cans): 1 can 03/22/20 1634 03/22/20 1700 Oral Nutrition Supplements Select Supplement: Ensure Clear - Apple; Quantity (# of cans): 1 can All Meals Question Answer Comment Select Supplement: Ensure Clear - Apple Quantity (# of cans): 1 can 03/22/20 1634 03/20/20 161 Adult Diet Regular Diet effective now Question: ([facility]) Diet type Answer: Regular 03/20/201613 Activity: As tolerated Is&Os: No intake/output data recorded. No intake/output data recorded. Physical Exam: 24hr Min/Max: Temp Min: 36.4 ??C (97.5 ??F) Max: 36.6 ??C (97.9 ??F) Pulse Min: 87 Max: 97 BP Min: 161/96 Max: 189/96 Resp Min: 16 Max: 18 SpO2 Min: 93 % Max: 96 % Vitals: 03/23/20 0739 BP: 161/96 Pulse: 95 Resp: 18 Temp: 36.6 ??C (97.9 ??F) SpO2: 95% Constitutional: well developed, well nourished, cooperative and no apparent distress Head: normocephalic, without obvious abnormality, atraumatic Neurologic: alert and oriented x4 sensation intact all extremities motor 5/5 all extremities Eyes: conjunctivae/corneas clear. PERRL, EOMs intact HENT: mucous membranes moist Neck: c-collar in place, right distal neck bruising Chest: normal appearance, no masses or tenderness Respiratory: clear to auscultation bilaterally and normal chest rise and fall Cardiovascular: regular rate, regular rhythm and systolic murmur Gastrointestinal: non-distended and soft non-tender Musculoskeletal: extremities normal, warm and well-perfused and no edema Pulses: radial: bilateral normal Skin: skin color, texture, turgor normal. No rashes or lesions Labs/Imaging: Recent Results (from the past 72 hour(s)) Basic metabolic panel Collection Time: 03/21/20 5:05 AM Result Value Ref Range Sodium 137 135 - 145 mmol/L Potassium, pl 4.9 3.3 - 4.9 mmol/L Chloride 106 97 - 110 mmol/L CO2 21 (L) 22 - 32 mmol/L Anion gap 10 2 - 15 mmol/L BUN 32 (H) 8 - 25 mg/dL Creatinine 0.86 0.60 - 1.10 mg/dL Glucose 124 70 - 199 mg/dL Calcium 9.9 8.5 - 10.3 mg/dL CBC without differential Collection Time: 03/21/20 5:05 AM Result Value Ref Range WBC 9.5 3.8 - 9.9 K/cumm Hgb 13.2 11.9 - 15.5 g/dL Hct 40.4 35.6 - 45.5 % Plt 121 (L) 150 - 400 K/cumm MPV 10.8 9.1 - 12.3 fL RBC 4.03 3.90 - 5.20 M/cumm MCV 100.2 (H) 81.3 - 96.4 fL MCH 32.8 27.1 - 33.3 pg MCHC 32.7 32.3 - 35.7 g/dL RDW CV 12.4 11.1 - 14.9 % RDW SD 46.5 35.7 - 48.1 fL NRBC abs 0.00 0.00 - 0.01 K/cumm Magnesium Collection Time: 03/21/20 5:05 AM Result Value Ref Range Magnesium 1.7 1.4 - 2.5 mg/dL Tacrolimus level trough Collection Time: 03/21/20 5:05 AM Result Value Ref Range Tacrolimus trough 17.6 ng/mL Urine culture Urine, clean voided Collection Time: 03/21/20 3:36 PM Specimen: Urine, clean voided Result Value Ref Range Report Preliminary Report - Final Review Pending: Less than 100,000 colonies/mL (clinically insignificant growth based on current clinical standards) Organism (CLINICALLY INSIGNIFICANT GROWTH Tacrolimus level trough Collection Time: 03/22/20 6:48 AM Result Value Ref Range Tacrolimus trough 9.1 ng/mL Xr Chest 2 Views Result Date: 03/20/2020 Comparison is made to prior study performed earlier today at 3:15 AM. In the interval, there has been no change in mild blunting of the costophrenic angles which may represent tiny pleural effusions.Heart size is moderately enlarged. Mild basilar atelectasis is seen. On the lateral projection noteis made of mild basilar pulmonary edema. No pneumothorax is seen. Previously seen upper lung airspace opacities note not seen. Electronically signed by: Melecio Holland M.D. Xr Spine Cervical 2 Or 3 Views Result Date: 03/20/2020 Cervical spine: 4 views were submitted. Study is limited due to a poor open- mouth view. There is prevertebral soft tissue swelling. Patient's known C2 fracture is better demonstrated on the CT. Severe degenerative disc disease at C4-C5. Heavy calcification of the carotid bulbs is noted. Thoracic spine: 4 views were submitted. Alignment is normal. There is very mild age indeterminant wedging at the mid thoracic spine. Otherwise, the vertebral body heights are normal. Lumbar spine: 3 views were submitted. Alignment is normal. Vertebral body heights are normal. No acute fractures. Chest: There is diffuse opacity bilaterally, which are favored to be due to overlying soft tissue. However, if clinically concern for acute pulmonary processes, finding could be further evaluated with a two-view chest radiograph. There is no pneumothorax. Mediastinal contours are normal. Mitral annulus calcifications noted ADDENDUM - This addendum is being placed on the report for a time dependent finding on a p atient who is admitted to the hospital (2B). There is left upper lobe opacity, which could be due to asymmetric pulmonary edema. If clinically indicated, 2 view chest radiograph or chest CT can be ordered for further evaluation. These findings were communicated to Dr. Regina Zaldivar by Deepti Mesa at 7:21AM on 03/20/2020. Dictated by: Deepti Mesa M.D. The radiology attending physician has personally reviewed this study, and had reviewed and/or edited this written report and agrees with it. Electronically signed by: Melecio Holland M.D. Xr Spine Thoracic 3 Vw Result Date: 03/20/2020 Cervical spine: 4 views were submitted. Study is limited due to a poor open- mouth view. There is prevertebral soft tissue swelling. Patient's known C2 fracture is better demonstrated on the CT. Severe degenerative disc disease at C4-C5. Heavy calcification of the carotid bulbs is noted. Thoracic spine: 4 views were submitted. Alignment is normal. There is very mild age indeterminant wedging at the mid thoracic spine. Otherwise, the vertebral body heights are normal. Lumbar spine: 3 views were submitted. Alignment is normal. Vertebral body heights are normal. No acute fractures. Chest: There is diffuse opacity bilaterally, which are favored to be due to overlying soft tissue. However, if clinically concern for acute pulmonary processes, finding could be further evaluated with a two-view chest radiograph. There is no pneumothorax. Mediastinal contours are normal. Mitral annulus calcifications noted ADDENDUM - This addendum is being placed on the report for a time dependent finding on a p atient who is admitted to the hospital (2B). There is left upper lobe opacity, which could be due to asymmetric pulmonary edema. If clinically indicated, 2 view chest radiograph or chest CT can be ordered for further evaluation. These findings were communicated to Dr. Regina Zaldivar by Deepti Mesa at 7:21AM on 03/20/2020. Dictated by: Deepti Mesa M.D. The radiology attending physician has personally reviewed this study, and had reviewed and/or edited this written report and agrees with it. Electronically signed by: Melecio Holland M.D. Xr Spine Lumbar 2 Or 3 Views Result Date: 03/20/2020 Cervical spine: 4 views were submitted. Study is limited due to a poor open- mouth view. There is prevertebral soft tissue swelling. Patient's known C2 fracture is better demonstrated on the CT. Severe degenerative disc disease at C4-C5. Heavy calcification of the carotid bulbs is noted. Thoracic spine: 4 views were submitted. Alignment is normal. There is very mild age indeterminant wedging at the mid thoracic spine. Otherwise, the vertebral body heights are normal. Lumbar spine: 3 views were submitted. Alignment is normal. Vertebral body heights are normal. No acute fractures. Chest: There is diffuse opacity bilaterally, which are favored to be due to overlying soft tissue. However, if clinically concern for acute pulmonary processes, finding could be further evaluated with a two-view chest radiograph. There is no pneumothorax. Mediastinal contours are normal. Mitral annulus calcifications noted ADDENDUM - This addendum is being placed on the report for a time dependent finding on a p atient who is admitted to the hospital (2B). There is left upper lobe opacity, which could be due to asymmetric pulmonary edema. If clinically indicated, 2 view chest radiograph or chest CT can be ordered for further evaluation. These findings were communicated to Dr. Regina Zaldivar by Deepti Mesa at 7:21AM on 03/20/2020. Dictated by: Deepti Mesa M.D. The radiology attending physician has personally reviewed this study, and had reviewed and/or edited this written report and agrees with it. Electronically signed by: Melecio Holland M.D. Xr Chest 1 Vw Portable Result Date: 03/20/2020 Cervical spine: 4 views were submitted. Study is limited due to a poor open- mouth view. There is prevertebral soft tissue swelling. Patient's known C2 fracture is better demonstrated on the CT. Severe degenerative disc disease at C4-C5. Heavy calcification of the carotid bulbs is noted. Thoracic spine: 4 views were submitted. Alignment is normal. There is very mild age indeterminant wedging at the mid thoracic spine. Otherwise, the vertebral body heights are normal. Lumbar spine: 3 views were submitted. Alignment is normal. Vertebral body heights are normal. No acute fractures. Chest: There is diffuse opacity bilaterally, which are favored to be due to overlying soft tissue. However, if clinically concern for acute pulmonary processes, finding could be further evaluated with a two-view chest radiograph. There is no pneumothorax. Mediastinal contours are normal. Mitral annulus calcifications noted ADDENDUM - This addendum is being placed on the report for a time dependent finding on a p atient who is admitted to the hospital (2B). There is left upper lobe opacity, which could be due to asymmetric pulmonary edema. If clinically indicated, 2 view chest radiograph or chest CT can be ordered for further evaluation. These findings were communicated to Dr. Regina Zaldivar by Deepti Mesa at 7:21AM on 03/20/2020. Dictated by: Deepti Mesa M.D. The radiology attending physician has personally reviewed this study, and had reviewed and/or edited this written report and agrees with it. Electronically signed by: Melecio Holland M.D. Mri Spine Cervical And Thoracic Wo Contrast Result Date: 03/20/2020 1. Acute comminuted C2 vertebral body fracture extending to the right pedicle and transverse foramen, and left superior articular facet. Associated left C1-C2 facet joint injury and C1-C2 interspinous ligamentous injury. No cord signal abnormality. 2. Additional nondisplaced fracture versus bone contusion of the left lateral mass of C1. 3. Focal disruption of the anterolateral ligament at C2 level, with prevertebral hematoma/edema and trace epidural hematoma. 4. Acute compression fractures of T2 and T3 vertebral bodies, with mild height loss. 5. Degenerative changes of cervical spine as detailed above. Dictated by: Ari Navarro M.D. The radiology attending physician has personally reviewed this study, and had reviewed and/or edited this written report and agrees with it. Electronically signed by: Danna Yign M.D. Cta Head Neck W Wo Contrast Result Date: 03/20/2020 1. No acute intracranial abnormality. 2. No large vessel occlusion or vascular injury. 3. C2 vertebral body fracture extending into the lateral masses and right pedicle. Dictated by: Gerber Cruz M.D. The radiology attending physician has personally reviewed this study, and had reviewed and/or edited this written report and agrees with it. Electronically signed by: Danna Ying M.D. Ct Thoracic And Lumbar Spine Wo Contrast Result Date: 03/20/2020 1. C2 comminuted vertebral body fracture with involvement of the lateral masses and right pedicle. 2. No acute fracture the thoracic or lumbar spine. Mild T3 vertebral body height loss, likely chronic given absence of edema on the contemporaneous MRI. Addendum: there is T3 edema on the MR suggestive of an acute compression fracture. AlthoughT2 vertebral body and left lateral mass of C1 have marrow edema as seen on MR, no fracture is clearly seen on the CT suggestive of occult fractures. Dictated by: Gerber Cruz M.D. The radiology attending physician has personally reviewed this study, and had reviewed and/or edited this written report and agrees with it. Electronically signed by: Danna Ying M.D. Neuro Ct Mr Outside Consult Result Date: 03/20/2020 1. Unstable comminuted C2 body fracture with extension into the lateral masses and probable involvement of the right foramen transversarium. Recommend CTA head and neck to evaluate for possible arterial injury. The Critical results were discussed with Dr. Mcelroy by Dr. Hameed on 03/20/2020 at 3:37AM The findings, conclusions and recommendations within this report do not replace the initial findings, conclusions and recommendations made at the facility where the study was performed based upon the imaging and clinical condition at that time. Comparison with the prior report and clinical history is necessary. The provided images may or may not represent the [place] source data set and thus may contain changes that may lower the accuracy of this second-opinion interpretation. Dictated by: Alice Hameed M.D. The radiology attending physician has personally reviewed this study, and had reviewed and/or edited this written report and agrees with it. Electronically signed by: KatieD. Stepan M.D. Neuro Ct Mr Outside Consult Result Date: 03/20/2020 1. Unstable comminuted C2 body fracture with extension into the lateral masses and probable involvement of the right foramen transversarium. Recommend CTA head and neck to evaluate for possible arterial injury. The Critical results were discussed with Dr. Mcelroy by Dr. Hameed on 03/20/2020 at 3:37AM The findings, conclusions and recommendations within this report do not replace the initial findings, conclusions and recommendations made at the facility where the study was performed based upon the imaging and clinical condition at that time. Comparison with the prior report and clinical history is necessary. The provided images may or may not represent the [place] source data set and thus may contain changes that may lower the accuracy of this second-opinion interpretation. Dictated by: Alice Hameed M.D. The radiology attending physician has personally reviewed this study, and had reviewed and/or edited this written report and agrees with it. Electronically signed by: KatieD. Stepan M.D. Ct Recon Cervical Spine W Contrast Result Date: 03/20/2020 1. C2 comminuted vertebral body fracture with involvement of the lateral masses and right pedicle. 2. No acute fracture the thoracic or lumbar spine. Mild T3 vertebral body height loss, likely chronic given absence of edema on the contemporaneous MRI. Addendum: there is T3 edema on the MR suggestive of an acute compression fracture. AlthoughT2 vertebral body and left lateral mass of C1 have marrow edema as seen on MR, no fracture is clearly seen on the CT suggestive of occult fractures. Dictated by: Gerber Cruz M.D. The radiology attending physician has personally reviewed this study, and had reviewed and/or edited this written report and agrees with it. Electronically signed by: Danna iYng M.D. Assessment and Plan: Principal Problem: Traumatic closed fracture of C2 vertebra with minimal displacement (CMS/HCC) Active Problems: History of kidney transplant Injury to ligament of cervical spine Acute pain due to trauma HTN (hypertension) CAD (coronary artery disease) Hypothyroidism Chronic UTI #C2 vertebral body fx extending into the pedicle/transverse foramen and C1-C2 facet joint #C2 anterolateral ligament injury + trace epidural hematoma - Ortho-Spine consulted - CTA Head and Neck neg for vascular injury - Nonoperative management - Strict cervical precautions - Alutiiq J collar - Uprights completed - PT/OT - Pain control - Follow up with Ortho spine Dr. Barahona in 1 week for repeat C-spine CT #T2/T3 vertebral body fractures - Ortho-Spine consulted - CT T/L spine- likely chronic #Acute pain due to trauma - APAP q6 and oxy PRN #Kidney transplant - Renal Transplant consulted - 03/21: Tacrolimus level 17.6- hold dosing - Daily AM tacrolimus level - Continue prednisone 5 mg daily - Continue acyclovir 200 mg BID for history of shingles #HTN - Continue home metop 50 BID, lisinopril 10 - 03/21: Increased metoprolol to 75mg BID #CAD - Hold ASA 81 - Continue home lipitor #hypothyroidism - Continue home synthroid 100 #h/o multiple UTIs - Continue home trimethoprim 100 - UA +, Culture from 03/19 Coag negative staph - Culture 03/21 NGTD #DVT PPx: Lovenox #Dispo: Rehab Kirstie Thompson NP Cosigned by Deacon Shashi Alegre MD at 03/23/2020 7:30 PM CDT Associated attestation - Deacon Shashi Alegre MD - 03/23/2020 7:30 PM CDT I have seen and examined the patient on 03/23/20 in conjunction with the [employer] [facility] [employer] [facility]. I agree with evaluation, assessment and plan as documented. My additions are below: History: Fall out of bed Injuries: C2 vertebral body fx extending into lateral mass & R pedicle T2/T3 vert body fx C2 ALL injury Physical Exam: Interactive, AAOx4 Alutiiq J collar in place Sclera anicteric, no jaundice Respirations even, unlabored Abdomen soft, NTND Extremities: QUINTERO, warm Labs reviewed Assessment/Plan 85 y.o female s.p fall with injuries as listed - Patient is DNR/DNI - Appreciate ortho spine recs, non-op mgmt in [facility] - Home transplant meds - HTN meds, adjusting as per renal transplant recs - DVT ppx - Dispo planning Deacon Mer Alegre MD [employer] Division of Acute and Critical Care Surgery * Natalie Majano MD - 03/23/2020 7:30 AM CDT Orthopaedic Spine Surgery Daily Progress Note 85 y/o F p/w C2 comminuted vertebral body fx with extension to bilateral lateral masses and right pedicle, left C1-C2 facet injury and C1-C2 interspinous ligament injury. Subjective AF, HTN to 160s-180s systolic, AOVSS. Exam unchanged. Objective MOST RECENT VITALS: 24hr Min/Max: Temp Min: 36.4 ??C (97.5 ??F) Max: 36.9 ??C (98.5 ??F) Pulse Min: 87 Max: 102 BP Min: 154/76 Max: 189/96 Resp Min: 16 Max: 18 SpO2 Min: 93 % Max: 96 % Most Recent: Vitals: 03/23/20 0508 BP: (!) 189/96 Pulse: Resp: Temp: SpO2: No intake or output data in the 24 hours ending 03/23/20 0730 Physical Exam: General: NAD, well-developed well-nourished Lungs: Unlabored breathing Cardiac: Regular rate Abdomen: Soft, nontender, nondistended Extremities: Warm and well perfused Spine: BUE: 11/07 D/B/T/WE/WF/IO/Dial Maker, SILT throughout BLE: 11/07 I/Q/H/TA/G/EHL/FHL, SILT throughout No clonus (-) Babinski (-) Shine's Lab/Diagnostic Review: Recent Labs Lab Units 03/21/20 0505 03/19/20 2044 SODIUM mmol/L 137 139 POTASSIUM PLASMA mmol/L 4.9 5.0* CHLORIDE mmol/L 106 105 CO2 mmol/L 21* 25 ANIONGAP mmol/L 10 9 GLUCOSE mg/dL 124 129 BUN SERUM mg/dL 32* 27* CREATININE mg/dL 0.86 0.84 CALCIUM mg/dL 9.9 10.2 ALBUMIN g/dL -- 4.1 ALK PHOS Units/L -- 115 ALT Units/L -- 17 AST Units/L -- 24 BILIRUBIN TOTAL mg/dL -- 0.8 WBC K/cumm 9.5 8.5 HEMOGLOBIN g/dL 13.2 13.6 HEMATOCRIT % 40.4 40.3 PLATELETS K/cumm 121* 121* NEUTROS PCT % -- 88.6 LYMPHS PCT % -- 4.7 MONOS PCT % -- 5.9 EOS PCT % -- 0.0 APTT sec -- 26 INR -- 1.1 Radiology Review: Xr Spine Cervical 2 Or 3 Views Result Date: 03/21/2020 Nondisplaced fracture of the dens, better seen on prior CT, with mild prevertebral soft tissue swelling Electronically signed by: Diane Moreno M.D. Assessment/Plan - Plan for non-operative management - Imaging studies: upright C-spine XRs in [facility] completed - Brace: Alutiiq J C-collar, should be removed twice daily for skin checks and hygiene - Neurochecks: q4 hours - Spinal Precautions: strict C-spine precautions - Activity: OOB, up to chair - Diet: per primary team - DVT prophylaxis: per primary team - Follow-up scheduled w/ Dr. Barahona on 03/30 Ortho Spine signing off at this time. Please call Ortho Spine if the patient develops any concerning changes to their neurologic exam such as new weakness or loss of bowel/bladder function. Natalie Majano MD Department of Orthopaedic Surgery, PGY-2 [facility] in [place] [phone] ?? If you have questions, please call the Orthopaedic Spine Consult Pager [phone] to be directed to the correct Orthopaedic Surgery resident. ?? If you know the resident's name on the appropriate orthopaedic surgery team, please use [email or web address] to page resident directly. * Kesha Lawrence NP - 03/22/2020 5:37 PM CDT [facility] Geriatric Trauma Surgery Daily Progress Note Admit: 03/19/2020 8:19 PM Date: March 21, 2020 Length of Stay: 1 Attending: Deacon Shashi Alegre MD POD:* No surgery found * History: Juliet Dunlap is a 85 y.o. female with a past medical history kidney transplant in 2012,??CAD, HTN, hypothyroidism, HBV, GERD, hiatal hernia, HLD??who presented as a transfer from [facility] with C2 comminuted vertebral body fracture with extension to bilateral masses and right foramen, C4/5 anterolisthesis. She was noted to be neuro intact. Head CT scan reportedly without acute abnormality. There was no other concern for other injury based on exam. Patient ambulated after the event. Upon presentation the patient was evaluated by orthopedic spine surgery who recommended non operative management in a Alutiiq J collar. CTA demonstrated no large vessel occlusion or vascular injury. Renal transplant was consulted and home medications were continued. Patient was admitted to the floor for therapy evaluation. ?? Interval History: Alutiiq J and uprights completed. AM tacro level 9. Increased metoprolol to 75mg BID for HTN. Added flexeril for muscle tightness. 03/21:Spoke with pt's at bedside last night. Will await Alutiiq J today and then obtain upright xrays.Rosales removed and labs pending 03/20- New admit to floor ?? Pain:controlled Nausea: No Flatus: Yes Bowel Movement: No Medications: Current Facility-Administered Medications: ??? acetaminophen (TYLENOL) tablet 1,000 mg, 1,000 mg, oral, Q6H BLAINE, Jose So MD, 1,000 mg at 03/21/202041 ??? acyclovir (ZOVIRAX) capsule 200 mg, 200 mg, oral, BID, Mikayla Jimenez MD, 200 mg at 03/21/202041 ??? enoxaparin (LOVENOX) syringe 30 mg, 30 mg, subcutaneous, Q12H BLAINE, Samia Thompson NP, 30 mg at 03/21/202040 ??? levothyroxine (SYNTHROID) tablet 100 mcg, 100 mcg, oral, Daily - 0600, Jose So MD, 100 mcg at 03/21/20 06 ??? lisinopriL (PRINIVIL,ZESTRIL) tablet 10 mg, 10 mg, oral, Daily - 0600, Jose So MD, 10 mg at 03/21/20 06 ??? metoprolol tartrate (LOPRESSOR) immediate release tablet 50 mg, 50 mg, oral, BID, Jose So MD, 50 mg at 03/21/202041 ??? oxyCODONE (ROXICODONE) tablet 5 mg, 5 mg, oral, Q4H PRN, Jose So MD, 5 mg at 03/21/20 1830 ??? pravastatin (PRAVACHOL) tablet 20 mg, 20 mg, oral, Nightly, Jose So MD, 20 mg at03/21/202041 ??? predniSONE (DELTASONE) tablet 5 mg, 5 mg, oral, Daily, Jose So MD, 5 mg at 03/21/20 0905 ??? senna-docusate (PERICOLACE) 8.6-50 mg per tablet 1 tablet, 1 tablet, oral, BID, Sammie Santiago NP, 1 tablet at 03/21/202041 ??? [Held by Provider] tacrolimus (PROGRAF) capsule 1 mg, 1 mg, oral, Q12H BLAINE, Jose So MD, 1 mg at 03/20/20 2250 ??? trimethoprim (TRIMPEX) tablet 100 mg, 100 mg, oral, Nightly, Jose So MD, 100 mg at 03/21/202041 Diet: Dietary Orders (From admission, onward) Start Ordered 03/20/20 1615 Adult Diet Regular Diet effective now Question: ([facility]) Diet type Answer: Regular 03/20/20 1614 Activity: As tolerated Is&Os: I/O last 2 completed shifts: In: - Out: 500 [Urine:500] No intake/output data recorded. Physical Exam: 24hr Min/Max: Temp Min: 36.3 ??C (97.4 ??F) Max: 36.9 ??C (98.4 ??F) Pulse Min: 79 Max: 97 BP Min: 156/82 Max: 188/82 Resp Min: 16 Max: 18 SpO2 Min: 93 % Max: 96 % Vitals: 03/21/202040 BP: 156/82 Pulse: 97 Resp: 18 Temp: 36.6 ??C (97.9 ??F) SpO2: 94% Constitutional: well developed, well nourished, cooperative and no apparent distress Head: normocephalic, without obvious abnormality, atraumatic Neurologic: alert and oriented x4 sensation intact all extremities motor 5/5 all extremities Eyes: conjunctivae/corneas clear. PERRL, EOMs intact HENT: mucous membranes moist Neck: c-collar in place, right distal neck bruising Chest: normal appearance, no masses or tenderness Respiratory: clear to auscultation bilaterally and normal chest rise and fall Cardiovascular: regular rate, regular rhythm and systolic murmur Gastrointestinal: non-distended and soft non-tender Musculoskeletal: extremities normal, warm and well-perfused and no edema Pulses: radial: bilateral normal Skin: skin color, texture, turgor normal. No rashes or lesions Labs/Imaging: Recent Results (from the past 72 hour(s)) CBC with auto differential Collection Time: 03/19/20 8:44 PM Result Value Ref Range WBC 8.5 3.8 - 9.9 K/cumm Hgb 13.6 11.9 - 15.5 g/dL Hct 40.3 35.6 - 45.5 % Plt 121 (L) 150 - 400 K/cumm MPV 10.9 9.1 - 12.3 fL RBC 4.11 3.90 - 5.20 M/cumm MCV 98.1 (H) 81.3 - 96.4 fL MCH 33.1 27.1 - 33.3 pg MCHC 33.7 32.3 - 35.7 g/dL RDW CV 12.2 11.1 - 14.9 % RDW SD 44.0 35.7 - 48.1 fL NRBC abs 0.00 0.00 - 0.01 K/cumm Comprehensive metabolic panel Collection Time: 03/19/20 8:44 PM Result Value Ref Range Sodium 139 135 - 145 mmol/L Potassium, pl 5.0 (H) 3.3 - 4.9 mmol/L Chloride 105 97 - 110 mmol/L CO2 25 22 - 32 mmol/L Anion gap 9 2 - 15 mmol/L BUN 27 (H) 8 - 25 mg/dL Creatinine 0.84 0.60 - 1.10 mg/dL Glucose 129 70 - 199 mg/dL Calcium 10.2 8.5 - 10.3 mg/dL Bilirubin, total 0.8 0.1 - 1.2 mg/dL Protein, pl 7.3 6.5 - 8.5 g/dL Albumin 4.1 3.5 - 5.0 g/dL Alk phos 115 40 - 130 Units/L ALT 17 7 - 45 Units/L AST 24 10 - 45 Units/L Protime-INR Collection Time: 03/19/20 8:44 PM Result Value Ref Range PT 11.9 8.6 - 13.0 sec INR 1.1 0.8 - 1.2 aPTT Collection Time: 03/19/20 8:44 PM Result Value Ref Range aPTT 26 25 - 37 sec Type and screen Collection Time: 03/19/20 8:44 PM Result Value Ref Range Emerita, indirect Negative ABO Rh B Positive Differential, auto Collection Time: 03/19/20 8:44 PM Result Value Ref Range Neutrophil abs 7.5 (H) 1.7 - 6.5 K/cumm Imm gran abs 0.1 0.0 - 0.1 K/cumm Lymphocyte abs 0.4 (L) 0.8 - 3.3 K/cumm Monocyte abs 0.5 0.2 - 0.8 K/cumm Eosinophil abs 0.0 0.0 - 0.5 K/cumm Basophil abs 0.0 0.0 - 0.1 K/cumm Neutrophil pct 88.6 % Imm gran pct 0.6 % Lymphocyte pct 4.7 % Monocyte pct 5.9 % Eosinophil pct 0.0 % Basophil pct 0.2 % Lipid panel Collection Time: 03/19/20 8:44 PM Result Value Ref Range Cholesterol 140 30 - 199 mg/dL Triglycerides 64 <=149 mg/dL HDL 70 >=40 mg/dL LDL, calculated 57 <=129 mg/dL Non-HDL Cholesterol 70 mg/dL Chol/HDL ratio 2 Urinalysis reflex to microscopic and culture Urine Collection Time: 03/19/20 10:46 PM Specimen: Urine Result Value Ref Range Color, ur Sangeetha Yellow Clarity, ur Cloudy (A) Clear Specific gravity, ur 1.029 (H) 1.010 - 1.025 pH, urine 7 Protein, ur ql 2+ (A) Negative Glucose, ur ql Negative Negative Ketones, ur 1+ (A) Negative Bilirubin, ur Negative Negative Blood, ur Negative Negative Urobilinogen, ur <2.0 <2.0 mg/dL Nitrite, ur Positive (A) Negative Leukocyte esterase, ur 3+ (A) Negative UA reflex comment Reflex to microscopic UA will be performed. COVID-19 Coronavirus RNA Nasopharyngeal Collection Time: 03/19/20 10:46 PM Specimen: Nasopharyngeal Result Value Ref Range COVID-19 Coronavirus RNA Not Detected Urinalysis, microscopic only Collection Time: 03/19/20 10:46 PM Result Value Ref Range WBC, ur 21-50 (A) 0 - 5 /HPF RBC, ur 0-2 0 - 2 /HPF Bacteria, ur 1+ (A) Mucous, ur Present (A) Amorphous crystals, ur 2+ (A) Culture Reflex Comment Reflex to urine culture will be performed. Urine culture Urine Collection Time: 03/19/20 10:46 PM Specimen: Urine Result Value Ref Range Report (.) Final Report: Greater than or equal to 100,000 colonies/mL of Coagulase negative Staphylococcus species not S. lugdunensis or S. saprophyticus Plus growth of clinically insignificant bacterial momo. Organism COAGULASE NEGATIVE STAPHYLOCOCCUS SPECIES Organism PLUS GROWTH OF CLINICALLY INSIGNIFICANT MOMO. Basic metabolic panel Collection Time: 03/21/20 5:05 AM Result Value Ref Range Sodium 137 135 - 145 mmol/L Potassium, pl 4.9 3.3 - 4.9 mmol/L Chloride 106 97 - 110 mmol/L CO2 21 (L) 22 - 32 mmol/L Anion gap 10 2 - 15 mmol/L BUN 32 (H) 8 - 25 mg/dL Creatinine 0.86 0.60 - 1.10 mg/dL Glucose 124 70 - 199 mg/dL Calcium 9.9 8.5 - 10.3 mg/dL CBC without differential Collection Time: 03/21/20 5:05 AM Result Value Ref Range WBC 9.5 3.8 - 9.9 K/cumm Hgb 13.2 11.9 - 15.5 g/dL Hct 40.4 35.6 - 45.5 % Plt 121 (L) 150 - 400 K/cumm MPV 10.8 9.1 - 12.3 fL RBC 4.03 3.90 - 5.20 M/cumm MCV 100.2 (H) 81.3 - 96.4 fL MCH 32.8 27.1 - 33.3 pg MCHC 32.7 32.3 - 35.7 g/dL RDW CV 12.4 11.1 - 14.9 % RDW SD 46.5 35.7 - 48.1 fL NRBC abs 0.00 0.00 - 0.01 K/cumm Magnesium Collection Time: 03/21/20 5:05 AM Result Value Ref Range Magnesium 1.7 1.4 - 2.5 mg/dL Tacrolimus level trough Collection Time: 03/21/20 5:05 AM Result Value Ref Range Tacrolimus trough 17.6 ng/mL Xr Chest 2 Views Result Date: 03/20/2020 Comparison is made to prior study performed earlier today at 3:15 AM. In the interval, there has been no change in mild blunting of the costophrenic angles which may represent tiny pleural effusions.Heart size is moderately enlarged. Mild basilar atelectasis is seen. On the lateral projection noteis made of mild basilar pulmonary edema. No pneumothorax is seen. Previously seen upper lung airspace opacities note not seen. Electronically signed by: Melecio Holland M.D. Xr Spine Cervical 2 Or 3 Views Result Date: 03/20/2020 Cervical spine: 4 views were submitted. Study is limited due to a poor open- mouth view. There is prevertebral soft tissue swelling. Patient's known C2 fracture is better demonstrated on the CT. Severe degenerative disc disease at C4-C5. Heavy calcification of the carotid bulbs is noted. Thoracic spine: 4 views were submitted. Alignment is normal. There is very mild age indeterminant wedging at the mid thoracic spine. Otherwise, the vertebral body heights are normal. Lumbar spine: 3 views were submitted. Alignment is normal. Vertebral body heights are normal. No acute fractures. Chest: There is diffuse opacity bilaterally, which are favored to be due to overlying soft tissue. However, if clinically concern for acute pulmonary processes, finding could be further evaluated with a two-view chest radiograph. There is no pneumothorax. Mediastinal contours are normal. Mitral annulus calcifications noted ADDENDUM - This addendum is being placed on the report for a time dependent finding on a p atient who is admitted to the hospital (2B). There is left upper lobe opacity, which could be due to asymmetric pulmonary edema. If clinically indicated, 2 view chest radiograph or chest CT can be ordered for further evaluation. These findings were communicated to Dr. Regina Zaldivar by Deepti Mesa at 7:21AM on 03/20/2020. Dictated by: Deepit Mesa M.D. The radiology attending physician has personally reviewed this study, and had reviewed and/or edited this written report and agrees with it. Electronically signed by: Melecio Holland M.D. Xr Spine Thoracic 3 Vw Result Date: 03/20/2020 Cervical spine: 4 views were submitted. Study is limited due to a poor open- mouth view. There is prevertebral soft tissue swelling. Patient's known C2 fracture is better demonstrated on the CT. Severe degenerative disc disease at C4-C5. Heavy calcification of the carotid bulbs is noted. Thoracic spine: 4 views were submitted. Alignment is normal. There is very mild age indeterminant wedging at the mid thoracic spine. Otherwise, the vertebral body heights are normal. Lumbar spine: 3 views were submitted. Alignment is normal. Vertebral body heights are normal. No acute fractures. Chest: There is diffuse opacity bilaterally, which are favored to be due to overlying soft tissue. However, if clinically concern for acute pulmonary processes, finding could be further evaluated with a two-view chest radiograph. There is no pneumothorax. Mediastinal contours are normal. Mitral annulus calcifications noted ADDENDUM - This addendum is being placed on the report for a time dependent finding on a p atient who is admitted to the hospital (2B). There is left upper lobe opacity, which could be due to asymmetric pulmonary edema. If clinically indicated, 2 view chest radiograph or chest CT can be ordered for further evaluation. These findings were communicated to Dr. Regina Zaldivar by Deepti Mesa at 7:21AM on 03/20/2020. Dictated by: Deepti Mesa M.D. The radiology attending physician has personally reviewed this study, and had reviewed and/or edited this written report and agrees with it. Electronically signed by: Melecio Holland M.D. Xr Spine Lumbar 2 Or 3 Views Result Date: 03/20/2020 Cervical spine: 4 views were submitted. Study is limited due to a poor open- mouth view. There is prevertebral soft tissue swelling. Patient's known C2 fracture is better demonstrated on the CT. Severe degenerative disc disease at C4-C5. Heavy calcification of the carotid bulbs is noted. Thoracic spine: 4 views were submitted. Alignment is normal. There is very mild age indeterminant wedging at the mid thoracic spine. Otherwise, the vertebral body heights are normal. Lumbar spine: 3 views were submitted. Alignment is normal. Vertebral body heights are normal. No acute fractures. Chest: There is diffuse opacity bilaterally, which are favored to be due to overlying soft tissue. However, if clinically concern for acute pulmonary processes, finding could be further evaluated with a two-view chest radiograph. There is no pneumothorax. Mediastinal contours are normal. Mitral annulus calcifications noted ADDENDUM - This addendum is being placed on the report for a time dependent finding on a patient who is admitted to the hospital (2B). There is left upper lobe opacity, which could be due to asymmetric pulmonary edema. If clinically indicated, 2 view chest radiograph or chest CT can be ordered for further evaluation. These findings were communicated to Dr. Regina Zaldivar by Deepti Mesa at 7:21 AM on 03/20/2020. Dictated by: Deepti Mesa M.D. The radiology attending physician has personally reviewed this study, and had reviewed and/or edited this written report and agrees with it. Electronically signed by: Melecio Holland M.D. Xr Chest 1 Vw Portable Result Date: 03/20/2020 Cervical spine: 4 views were submitted. Study is limited due to a poor open- mouth view. There is prevertebral soft tissue swelling. Patient's known C2 fracture is better demonstrated on the CT. Severe degenerative disc disease at C4-C5. Heavy calcification of the carotid bulbs is noted. Thoracic spine: 4 views were submitted. Alignment is normal. There is very mild age indeterminant wedging at the mid thoracic spine. Otherwise, the vertebral body heights are normal. Lumbar spine: 3 views were submitted. Alignment is normal. Vertebral body heights are normal. No acute fractures. Chest: There is diffuse opacity bilaterally, which are favored to be due to overlying soft tissue. However, if clinically concern for acute pulmonary processes, finding could be further evaluated with a two-view chest radiograph. There is no pneumothorax. Mediastinal contours are normal. Mitral annulus calcifications noted ADDENDUM - This addendum is being placed on the report for a time dependent finding on a p atient who is admitted to the hospital (2B). There is left upper lobe opacity, which could be due to asymmetric pulmonary edema. If clinically indicated, 2 view chest radiograph or chest CT can be ordered for further evaluation. These findings were communicated to Dr. Regina Zaldivar by Deepti Mesa at 7:21AM on 03/20/2020. Dictated by: Deepti eMsa M.D. The radiology attending physician has personally reviewed this study, and had reviewed and/or edited this written report and agrees with it. Electronically signed by: Melecio Hollnad M.D. Mri Spine Cervical And Thoracic Wo Contrast Result Date: 03/20/2020 1. Acute comminuted C2 vertebral body fracture extending to the right pedicle and transverse foramen, and left superior articular facet. Associated left C1-C2 facet joint injury and C1-C2 interspinous ligamentous injury. No cord signal abnormality. 2. Additional nondisplaced fracture versus bone contusion of the left lateral mass of C1. 3. Focal disruption of the anterolateral ligament at C2 level, with prevertebral hematoma/edema and trace epidural hematoma. 4. Acute compression fractures of T2 and T3 vertebral bodies, with mild height loss. 5. Degenerative changes of cervical spine as detailed above. Dictated by: Ari Navarro M.D. The radiology attending physician has personallyreviewed this study, and had reviewed and/or edited this written report and agrees with it. Electronically signed by: Danna Ying M.D. Cta Head Neck W Wo Contrast Result Date: 03/20/2020 1. No acute intracranial abnormality. 2. No large vessel occlusion or vascular injury. 3. C2 vertebral body fracture extending into the lateral masses and right pedicle. Dictated by: Gerber Cruz M.D. The radiology attending physician has personally reviewed this study, and had reviewed and/or edited this written report and agrees with it. Electronically signed by: Danna Ying M.D. Ct Thoracic And Lumbar Spine Wo Contrast Result Date: 03/20/2020 1. C2 comminuted vertebral body fracture with involvement of the lateral masses and right pedicle. 2. No acute fracture the thoracic or lumbar spine. Mild T3 vertebral body height loss, likely chronic given absence of edema on the contemporaneous MRI. Addendum: there is T3 edema on the MR suggestive of an acute compression fracture. AlthoughT2 vertebral body and left lateral mass of C1 have marrow edema as seen on MR, no fracture is clearly seen on the CT suggestive of occult fractures. Dictated by: Gerber Cruz M.D. The radiology attending physician has personally reviewed this study, and had reviewed and/or edited this written report and agrees with it. Electronically signed by: Danna Ying M.D. Neuro Ct Mr Outside Consult Result Date: 03/20/2020 1. Unstable comminuted C2 body fracture with extension into the lateral masses and probable involvement of the right foramen transversarium. Recommend CTA head and neck to evaluate for possible arterial injury. The Critical results were discussed with Dr. Mcelroy by Dr. Hameed on 03/20/2020 at 3:37AM The findings, conclusions and recommendations within this report do not replace the initial findings, conclusions and recommendations made at the facility where the study was performed based upon the imaging and clinical condition at that time. Comparison with the prior report and clinical history is necessary. The provided images may or may not represent the [place] source data set and thus may contain changes that may lower the accuracy of this second-opinion interpretation. Dictated by: Alice Hameed M.D. The radiology attending physician has personally reviewed this study, and had reviewed and/or edited this written report and agrees with it. Electronically signed by: KatieD. Stepan M.D. Neuro Ct Mr Outside Consult Result Date: 03/20/2020 1. Unstable comminuted C2 body fracture with extension into the lateral masses and probable involvement of the right foramen transversarium. Recommend CTA head and neck to evaluate for possible arterial injury. The Critical results were discussed with Dr. Mcelroy by Dr. Hameed on 03/20/2020 at 3:37AM The findings, conclusions and recommendations within this report do not replace the initial findings, conclusions and recommendations made at the facility where the study was performed based upon the imaging and clinical condition at that time. Comparison with the prior report and clinical history is necessary. The provided images may or may not represent the [place] source data set and thus may contain changes that may lower the accuracy of this second-opinion interpretation. Dictated by: Alice Hameed M.D. The radiology attending physician has personally reviewed this study, and had reviewed and/or edited this written report and agrees with it. Electronically signed by: KatieD. Stepan M.D. Ct Recon Cervical Spine W Contrast Result Date: 03/20/2020 1. C2 comminuted vertebral body fracture with involvement of the lateral masses and right pedicle. 2. No acute fracture the thoracic or lumbar spine. Mild T3 vertebral body height loss, likely chronic given absence of edema on the contemporaneous MRI. Addendum: there is T3 edema on the MR suggestive of an acute compression fracture. AlthoughT2 vertebral body and left lateral mass of C1 have marrow edema as seen on MR, no fracture is clearly seen on the CT suggestive of occult fractures. Dictated by: Gerber Cruz M.D. The radiology attending physician has personally reviewed this study, and had reviewed and/or edited this written report and agrees with it. Electronically signed by: Danna Ying M.D. Assessment and Plan: Principal Problem: Traumatic closed fracture of C2 vertebra with minimal displacement (CMS/HCC) Active Problems: History of kidney transplant Injury to ligament of cervical spine Acute pain due to trauma HTN (hypertension) CAD (coronary artery disease) Hypothyroidism Chronic UTI #C2 vertebral body fx extending into the pedicle/transverse foramen and C1-C2 facet joint #C2 anterolateral ligament injury + trace epidural hematoma - Ortho-Spine consulted - CTA Head and Neck neg for vascular injury - Nonoperative management - Strict cervical precautions - Alutiiq J collar - Uprights completed - PT/OT - Pain control #T2/T3 vertebral body fractures - Ortho-Spine consulted - CT T/L spine- likely chronic #Acute pain due to trauma - APAP q6 and oxy PRN #Kidney transplant - Renal Transplant consulted - 03/21: Tacrolimus level 17.6- hold dosing - Daily AM tacrolimus level - Continue prednisone 5 mg daily - Continue acyclovir 200 mg BID for history of shingles #HTN - Continue home metop 50 BID, lisinopril - 03/21: Increased metoprolol to 75mg BID #CAD - Hold ASA 81 - Continue home lipitor #hypothyroidism - Continue home synthroid 100 #h/o multiple UTIs - Continue home trimethoprim 100 - UA +, cx pending #DVT PPx: Lovenox #Dispo: Pending therapy baljeet Lawrence NP Cosigned by Deacon Shashi Alegre MD at 03/22/2020 11:00 PM CDT Associated attestation - Deacon Shashi Alegre MD - 03/22/2020 11:00 PM CDT I have seen and examined the patient on 03/22/20 in conjunction with the [employer]. I agree with evaluation, assessment and plan as documented. My additions are below: History: Fall out of bed Injuries: C2 vertebral body fx extending into lateral mass & R pedicle T2/T3 vert body fx C2 ALL injury Physical Exam: Interactive, AAOx4 Alutiiq J collar in place Sclera anicteric, no jaundice Respirations even, unlabored Abdomen soft, NTND Extremities: QUINTERO, warm Labs reviewed Assessment/Plan 85 y.o female s.p fall with injuries as listed - Patient is DNR/DNI - Appreciate ortho spine recs, non-op mgmt in [facility] - Home transplant meds - HTN meds - DVT ppx - Dispo planning Deacon Mer Alegre MD Adjunct Hand Straightener Division of Acute and Critical Care Surgery * Mikayla Jimenez MD - 03/22/2020 12:16 PM CDT Hypertensive, but metoprolol already increased from 50 mg BID to 75 mg BID this morning. Continue lisinopril 10 mg daily. Tacrolimus level down from 17 rto 9.1. Will resume tacrolimus at 0.5 mg BID -first dose starting this evening. Change made on Epic. Repeat urine culture is in process, will follow. 03/22/20 Mikayla Jimenez MD Nephrology Fellow, PGY-V Transplant Nephrology Service Please call [phone] from 7am- 5pm Mon-Fri After hours and weekends: please page [phone] * Natalie Majano MD - 03/22/2020 8:00 AM CDT Orthopaedic Spine Surgery Daily Progress Note 85 y/o F p/w C2 comminuted vertebral body fx with extension to bilateral lateral masses and right pedicle, left C1-C2 facet injury and C1-C2 interspinous ligament injury. Subjective No acute events overnight. AF, hypertensive to 160s-170s systolic, AOVSS. Has Alutiiq J C-collar. No new numbness/tingling/weakness in extremities. Upright x- rays in collar completed with grade 1 spondylolisthesis C4-C5, otherwise maintained alignment. Objective MOST RECENT VITALS: 24hr Min/Max: Temp Min: 36.6 ??C (97.9 ??F) Max: 36.9 ??C (98.5 ??F) Pulse Min: 79 Max: 109 BP Min: 154/76 Max: 179/80 Resp Min: 16 Max: 18 SpO2 Min: 92 % Max: 95 % Most Recent: Vitals: 03/22/20 0801 BP: 154/76 Pulse: 102 Resp: 17 Temp: 36.9 ??C (98.5 ??F) SpO2: 95% No intake or output data in the 24 hours ending 03/22/20 0859 Physical Exam: General: NAD, well-developed well-nourished Lungs: Unlabored breathing Cardiac: Regular rate Abdomen: Soft, nontender, nondistended Extremities: Warm and well perfused Spine: BUE: / D/B/T/WE/WF/IO/Dial Maker, SILT throughout BLE: 11/07 I/Q/H/TA/G/EHL/FHL, SILT throughout No clonus (-) Babinski (-) Shine's Lab/Diagnostic Review: Recent Labs Lab Units 03/21/20 0505 03/19/20 2044 SODIUM mmol/L 137 139 POTASSIUM PLASMA mmol/L 4.9 5.0* CHLORIDE mmol/L 106 105 CO2 mmol/L 21* 25 ANIONGAP mmol/L 10 9 GLUCOSE mg/dL 124 129 BUN SERUM mg/dL 32* 27* CREATININE mg/dL 0.86 0.84 CALCIUM mg/dL 9.9 10.2 ALBUMIN g/dL -- 4.1 ALK PHOS Units/L -- 115 ALT Units/L -- 17 AST Units/L -- 24 BILIRUBIN TOTAL mg/dL -- 0.8 WBC K/cumm 9.5 8.5 HEMOGLOBIN g/dL 13.2 13.6 HEMATOCRIT % 40.4 40.3 PLATELETS K/cumm 121* 121* NEUTROS PCT % -- 88.6 LYMPHS PCT % -- 4.7 MONOS PCT % -- 5.9 EOS PCT % -- 0.0 APTT sec -- 26 INR -- 1.1 Radiology Review: Xr Spine Cervical 2 Or 3 Views Result Date: 03/21/2020 Nondisplaced fracture of the dens, better seen on prior CT, with mild prevertebral soft tissue swelling Electronically signed by: Diane Moreno M.D. Assessment/Plan - Plan for non-operative management - Imaging studies: upright C-spine XRs in [facility] completed - Brace: Alutiiq J C-collar, should be removed twice daily for skin checks and hygiene - Neurochecks: q4 hours - Spinal Precautions: strict C-spine precautions - Activity: OOB, up to chair - Diet: per primary team - DVT prophylaxis: per primary team - Will plan for pt to follow up with Dr. Barahona in 1 week for repeat C-spine CT Ortho Spine signing off at this time. Please call Ortho Spine if the patient develops any concerning changes to their neurologic exam such as new weakness or loss of bowel/bladder function. Natalie Majano MD Department of Orthopaedic Surgery, PGY-2 [facility] in [place]/[facility] [phone] ?? If you have questions, please call the Orthopaedic Spine Consult Pager [phone] to be directed to the correct Orthopaedic Surgery resident. ?? If you know the resident's name on the appropriate orthopaedic surgery team, please use [email or web address] to page resident directly. * Giana Hanks, PT - 03/21/2020 1:53 PM CDT Physical Therapy As supervising physical therapist, I agree with and cosign all documentation provided on this date by TITA Cha for PT documentation/care for this patient. Giana Hanks, PT 03/21/20 * Viridiana Koo RN - 03/21/2020 9:36 AM CDT 03/21/20 0900 Information Information Obtained From Adult child Name Kristin Referral Data Referral Source Other (Comment) Referral Reason Discharge Planning Prior to Admission Primary Caregiver Self Support System Spouse/Significant Other;Children Support system contact info (name, phone, availablity) patient's Ced [phone] and daphnie's daughter Kristin [phone] Home Care Services No Durable Medical Equipment None Living Arrangements Spouse/significant other Type of Residence Private residence Steps in home? Yes, Inside home Number of steps inside: 10 steps Financial Resource Payor Source Medicare;Supplemental Potential Discharge Needs Anticipated discharge level of care Private residence Pt/Family agrees with Anticipated Level of Care Yes Patient expects to be discharged to: Private residence Dialysis No Behavioral Health Services No Chart reviewed for: Medical Necessity Patient admitted for: fall Information obtained from: patient's daughter Kristin over the phone Role of CM explained/additional information & options discussed Phone/Address Verified Plan includes: Patient to discharge from the hospital when medically stable. Discharge needs to be determined at this time. Patient's daughter requesting a medical update. CM spoke with [facility] [employer] who states she will call patient's daughter. Patient's daughter states patient lives at home with her and both are very independent. Patient's daughter states patient's works for her husbandbut hours are flexible and he can be home with patient as needed. Patient's daughter voiced concerns regarding discharge planning with [facility] since patient has a transplant history. Discharge needs mariano determined at this time Insurances verified as: Medicare A/B and [facility] Prescription coverage verified Admission Source: OSH PCP Confirmed: Merlin Nunez MD Referrals initiated to: none at this time Transportation at discharge: patient's family Plan of Care: 1. Collaboration with patient/spouse, MD, direct care nurse, Mri Assistant, and other members of the health care team to assure needed interventions completed. 2. Return patient to baseline post discharge. 3. Vocational Examiner will follow along with SW for Discharge Planning - Interventions as needed. 4. Anticipated level of care at discharge: Return home when medically stable for discharge. 5. Planned Discharge Disposition: Return home when medically stable for discharge. Patient and family agree with plan. Base on a comprehensive family assessment, assistance with instrumental activities of daily living after discharge will be provided by patient's family. Through the course of our work I determined that patient's family possesses the skill and ability to provide and monitor the care of the patient when he or she returns home. patient's family has the capacity to provide/monitor/arrange for the care of the patient. Finally, we determined that patient's family has the knowledge of available resources and that combining them with their existing resources will suffice to sustain and care for the patient when he or she returns home. The treatment team is aware of this information. All are in agreement with the aftercare plan. Case management will continue to follow for discharge planning and referrals as needed. Please call if I may be of any assistance. [phone] * Mikayla Jimenez MD - 03/21/2020 8:39 AM CDT Tacrolimus held, level of 17.6 this AM. * Darlin Burgos MD PhD - 03/21/2020 7:03 AM CDT Orthopaedic Spine Surgery Daily Progress Note March 21, 2020 7:04 AM Subjective Juliet Dunlap is a 85 y.o. female with C2 comminuted VB fx with extension to b/l lat. masses and right foramen, left C1-C2 facet injury and C1- C2 interspinous ligament injury. No acute events overnight. No new numbness or tingling in the extremities. C- collar in place. Objective MOST RECENT VITALS: 24hr Min/Max: Temp Min: 36 ??C (96.8 ??F) Max: 36.6 ??C (97.9 ??F) Pulse Min: 83 Max: 103 BP Min: 174/91 Max: 188/82 Resp Min: 16 Max: 18 SpO2 Min: 95 % Max: 98 % Most Recent: Vitals: 03/21/20 0435 BP: (!) 181/89 Pulse: 86 Resp: 16 Temp: 36.6 ??C (97.9 ??F) SpO2: 96% Intake/Output Summary (Last 24 hours) at 03/21/2020 0704 Last data filed at 03/21/2020 0050 Gross per 24 hour Intake -- Output 950 ml Net -950 ml Date 03/20/20699 - 03/21/20 0603/21/20699 - 03/22/20 0659 Shift [id number] 5039-2896 24 Hour Total 0575-7872 0079-7704 24 Hour Total INTAKE Shift Total(mL/kg) OUTPUT Urine(mL/kg/hr) 450(0.6) 500(0.7) 950(0.7) Shift Total(mL/kg) 450(7.5) 500(8.3) 950(15.8) NET -450 -500 -950 Weight (kg) 60 60 60 60 60 60 Physical Exam: General: NAD, well-developed well-nourished Eyes: sclera nonicteric ENT: NCAT, dentition intact Lungs: Unlabored breathing Cardiac: Regular rate Abdomen: Soft, nontender, nondistended. Psychiatric: Normal mood and affect. Extremities: WWP Spine: BUE: 11/07 D/B/T/WE/WF/IO/Dial Maker, SILT throughout BLE: 5/5 I/Q/H/TA/G/EHL/FHL, SILT throughout No clonus (-) Babinski (-) Shine's Lab/Diagnostic Review: Recent Labs Lab Units 03/21/20 0505 03/19/20 2044 SODIUM mmol/L 137 139 POTASSIUM PLASMA mmol/L 4.9 5.0* CHLORIDE mmol/L 106 105 CO2 mmol/L 21* 25 ANIONGAP mmol/L 10 9 GLUCOSE mg/dL 124 129 BUN SERUM mg/dL 32* 27* CREATININE mg/dL 0.86 0.84 CALCIUM mg/dL 9.9 10.2 ALBUMIN g/dL -- 4.1 ALK PHOS Units/L -- 115 ALT Units/L -- 17 AST Units/L -- 24 BILIRUBIN TOTAL mg/dL -- 0.8 WBC K/cumm 9.5 8.5 HEMOGLOBIN g/dL 13.2 13.6 HEMATOCRIT % 40.4 40.3 PLATELETS K/cumm 121* 121* NEUTROS PCT % -- 88.6 LYMPHS PCT % -- 4.7 MONOS PCT % -- 5.9 EOS PCT % -- 0.0 APTT sec -- 26 INR -- 1.1 Radiology Review: I have reviewed the imaging studies obtained to date, and agree with the official radiology reads. Assessment/Plan - Nonoperative injury - Imaging Studies Pending: Needs Upright C-spine XRs in Alutiiq J - Brace: Alutiiq J to be fitted today - Neurochecks: q4 hours - Spinal Precautions: Strict C-spine precautions - Activity: OOB, up to chair - Diet: will notify team if needs to be NPO from an Ortho Spine standpoint - DVT prophylaxis: will notify team if anticoagulation needs to be held from an Ortho Spine standpoint - Ortho Spine to follow closely. Please call ortho spine if patient develops any concerning changesto their neurologic exam such as new weakness or loss of bowel/bladder function - Will plan for pt to follow up with Dr. Barahona in 1 week for repeat C spine CT ?? If you have questions, please call the Orthopaedic Surgery Consult Pager [phone] to be directed to the correct Orthopaedic Surgery resident. ?? If you know the resident's name on the appropriate orthopaedic surgery team, please use [email or web address] to page resident directly. Darlin Burgos MD Orthopaedic Surgery Resident [phone] [facility] in [place] * Sammie Santiago NP - 03/21/2020 3:27 AM CDT [facility] Geriatric Trauma Surgery Daily Progress Note Admit: 03/19/2020 8:19 PM Date: March 21, 2020 Length of Stay: 1 Attending: Deacon Shashi Alegre MD POD:* No surgery found * History: Juliet Dunlap is a 85 y.o. female with a past medical history kidney transplant in 2012,??CAD, HTN, hypothyroidism, HBV, GERD, hiatal hernia, HLD??who presented as a transfer from [facility] with C2 comminuted vertebral body fracture with extension to bilateral masses and right foramen, C4/5 anterolisthesis. She was noted to be neuro intact. Head CT scan reportedly without acute abnormality. There was no other concern for other injury based on exam. Patient ambulated after the event. Upon presentation the patient was evaluated by orthopedic spine surgery who recommended non operative management in a Alutiiq J collar. CTA demonstrated no large vessel occlusion or vascular injury. Renal transplant was consulted and home medications were continued. Patient was admitted to the floor for therapy evaluation. ?? Interval History: 03/21:Spoke with pt's at bedside last night. Will await Alutiiq J today and then obtain upright xrays.Rosales removed and labs pending 03/20- New admit to floor ?? Pain:controlled Nausea: No Flatus: Yes Bowel Movement: No Medications: Current Facility-Administered Medications: ??? acetaminophen (TYLENOL) tablet 1,000 mg, 1,000 mg, oral, Q6H BLAINE, Jose So MD, 1,000 mg at 03/21/20213 ??? acyclovir (ZOVIRAX) capsule 200 mg, 200 mg, oral, BID, Mikayla Jimenez MD, 200 mg at 03/20/202120 ??? enoxaparin (LOVENOX) syringe 30 mg, 30 mg, subcutaneous, Q12H BLAINE, Samia Thompson NP, 30 mg at 03/20/202119 ??? levothyroxine (SYNTHROID) tablet 100 mcg, 100 mcg, oral, Daily - 0600, Jose So MD ??? lisinopriL (PRINIVIL,ZESTRIL) tablet 10 mg, 10 mg, oral, Daily - 0600, Jose So MD ??? metoprolol tartrate (LOPRESSOR) immediate release tablet 25 mg, 25 mg, oral, BID, Jose So MD, 25 mg at 03/20/202120 ??? metoprolol tartrate (LOPRESSOR) immediate release tablet 50 mg, 50 mg, oral, BID, Jose So MD, 50 mg at 03/20/202120 ??? oxyCODONE (ROXICODONE) tablet 5 mg, 5 mg, oral, Q4H PRN, Jose So MD, 5 mg at 03/21/20 0215 ??? pravastatin (PRAVACHOL) tablet 20 mg, 20 mg, oral, Nightly, Jose So MD, 20 mg at03/20/202120 ??? predniSONE (DELTASONE) tablet 5 mg, 5 mg, oral, Daily, Jose So MD, 5 mg at 03/20/20 0852 ??? senna-docusate (PERICOLACE) 8.6-50 mg per tablet 1 tablet, 1 tablet, oral, BID, Sammie Santiago, [employer], 1 tablet at 03/20/202120 ??? tacrolimus (PROGRAF) capsule 1 mg, 1 mg, oral, Q12H BLAINE, Jose So MD, 1 mg at 03/20/20 2250 ??? trimethoprim (TRIMPEX) tablet 100 mg, 100 mg, oral, Nightly, Jose So MD, 100 mg at 03/20/202120 Diet: Dietary Orders (From admission, onward) Start Ordered 03/20/20 1615 Adult Diet Regular Diet effective now Question: ([facility]) Diet type Answer: Regular 03/20/20 1614 Activity: As tolerated Is&Os: I/O last 2 completed shifts: In: - Out: 450 [Urine:450] I/O this shift: In: - Out: 500 [Urine:500] Physical Exam: 24hr Min/Max: Temp Min: 36 ??C (96.8 ??F) Max: 36.6 ??C (97.9 ??F) Pulse Min: 83 Max: 103 BP Min: 167/75 Max: 188/82 Resp Min: 15 Max: 18 SpO2 Min: 95 % Max: 100 % Vitals: 03/21/20 0048 BP: (!) 188/82 Pulse: 83 Resp: Temp: 36.3 ??C (97.4 ??F) SpO2: 95% Constitutional: well developed, well nourished, cooperative and no apparent distress Head: normocephalic, without obvious abnormality, atraumatic Neurologic: alert and oriented x4 sensation intact all extremities motor 5/5 all extremities Eyes: conjunctivae/corneas clear. PERRL, EOMs intact HENT: mucous membranes moist Neck: c-collar in place Chest: normal appearance, no masses or tenderness Respiratory: clear to auscultation bilaterally and normal chest rise and fall Cardiovascular: regular rate, regular rhythm and systolic murmur Gastrointestinal: non-distended and soft non-tender Musculoskeletal: extremities normal, warm and well-perfused and no edema Pulses: radial: bilateral normal Skin: skin color, texture, turgor normal. No rashes or lesions Labs/Imaging: Recent Results (from the past 72 hour(s)) CBC with auto differential Collection Time: 03/19/20 8:44 PM Result Value Ref Range WBC 8.5 3.8 - 9.9 K/cumm Hgb 13.6 11.9 - 15.5 g/dL Hct 40.3 35.6 - 45.5 % Plt 121 (L) 150 - 400 K/cumm MPV 10.9 9.1 - 12.3 fL RBC 4.11 3.90 - 5.20 M/cumm MCV 98.1 (H) 81.3 - 96.4 fL MCH 33.1 27.1 - 33.3 pg MCHC 33.7 32.3 - 35.7 g/dL RDW CV 12.2 11.1 - 14.9 % RDW SD 44.0 35.7 - 48.1 fL NRBC abs 0.00 0.00 - 0.01 K/cumm Comprehensive metabolic panel Collection Time: 03/19/20 8:44 PM Result Value Ref Range Sodium 139 135 - 145 mmol/L Potassium, pl 5.0 (H) 3.3 - 4.9 mmol/L Chloride 105 97 - 110 mmol/L CO2 25 22 - 32 mmol/L Anion gap 9 2 - 15 mmol/L BUN 27 (H) 8 - 25 mg/dL Creatinine 0.84 0.60 - 1.10 mg/dL Glucose 129 70 - 199 mg/dL Calcium 10.2 8.5 - 10.3 mg/dL Bilirubin, total 0.8 0.1 - 1.2 mg/dL Protein, pl 7.3 6.5 - 8.5 g/dL Albumin 4.1 3.5 - 5.0 g/dL Alk phos 115 40 - 130 Units/L ALT 17 7 - 45 Units/L AST 24 10 - 45 Units/L Protime-INR Collection Time: 03/19/20 8:44 PM Result Value Ref Range PT 11.9 8.6 - 13.0 sec INR 1.1 0.8 - 1.2 aPTT Collection Time: 03/19/20 8:44 PM Result Value Ref Range aPTT 26 25 - 37 sec Type and screen Collection Time: 03/19/20 8:44 PM Result Value Ref Range Emerita, indirect Negative ABO Rh B Positive Differential, auto Collection Time: 03/19/20 8:44 PM Result Value Ref Range Neutrophil abs 7.5 (H) 1.7 - 6.5 K/cumm Imm gran abs 0.1 0.0 - 0.1 K/cumm Lymphocyte abs 0.4 (L) 0.8 - 3.3 K/cumm Monocyte abs 0.5 0.2 - 0.8 K/cumm Eosinophil abs 0.0 0.0 - 0.5 K/cumm Basophil abs 0.0 0.0 - 0.1 K/cumm Neutrophil pct 88.6 % Imm gran pct 0.6 % Lymphocyte pct 4.7 % Monocyte pct 5.9 % Eosinophil pct 0.0 % Basophil pct 0.2 % Lipid panel Collection Time: 03/19/20 8:44 PM Result Value Ref Range Cholesterol 140 30 - 199 mg/dL Triglycerides 64 <=149 mg/dL HDL 70 >=40 mg/dL LDL, calculated 57 <=129 mg/dL Non-HDL Cholesterol 70 mg/dL Chol/HDL ratio 2 Urinalysis reflex to microscopic and culture Urine Collection Time: 03/19/20 10:46 PM Specimen: Urine Result Value Ref Range Color, ur Sangeetha Yellow Clarity, ur Cloudy (A) Clear Specific gravity, ur 1.029 (H) 1.010 - 1.025 pH, urine 7 Protein, ur ql 2+ (A) Negative Glucose, ur ql Negative Negative Ketones, ur 1+ (A) Negative Bilirubin, ur Negative Negative Blood, ur Negative Negative Urobilinogen, ur <2.0 <2.0 mg/dL Nitrite, ur Positive (A) Negative Leukocyte esterase, ur 3+ (A) Negative UA reflex comment Reflex to microscopic UA will be performed. COVID-19 Coronavirus RNA Nasopharyngeal Collection Time: 03/19/20 10:46 PM Specimen: Nasopharyngeal Result Value Ref Range COVID-19 Coronavirus RNA Not Detected Urinalysis, microscopic only Collection Time: 03/19/20 10:46 PM Result Value Ref Range WBC, ur 21-50 (A) 0 - 5 /HPF RBC, ur 0-2 0 - 2 /HPF Bacteria, ur 1+ (A) Mucous, ur Present (A) Amorphous crystals, ur 2+ (A) Culture Reflex Comment Reflex to urine culture will be performed. Urine culture Urine Collection Time: 03/19/20 10:46 PM Specimen: Urine Result Value Ref Range Report (.) Preliminary Report: Greater than or equal to 100,000 colonies/mL of Coagulase negative Staphylococcus species not S. lugdunensis or S. saprophyticus Organism COAGULASE NEGATIVE STAPHYLOCOCCUS SPECIES Xr Chest 2 Views Result Date: 03/20/2020 Comparison is made to prior study performed earlier today at 3:15 AM. In the interval, there has been no change in mild blunting of the costophrenic angles which may represent tiny pleural effusions.Heart size is moderately enlarged. Mild basilar atelectasis is seen. On the lateral projection noteis made of mild basilar pulmonary edema. No pneumothorax is seen. Previously seen upper lung airspace opacities note not seen. Electronically signed by: Melecio Holland M.D. Xr Spine Cervical 2 Or 3 Views Result Date: 03/20/2020 Cervical spine: 4 views were submitted. Study is limited due to a poor open- mouth view. There is prevertebral soft tissue swelling. Patient's known C2 fracture is better demonstrated on the CT. Severe degenerative disc disease at C4-C5. Heavy calcification of the carotid bulbs is noted. Thoracic spine: 4 views were submitted. Alignment is normal. There is very mild age indeterminant wedging at the mid thoracic spine. Otherwise, the vertebral body heights are normal. Lumbar spine: 3 views were submitted. Alignment is normal. Vertebral body heights are normal. No acute fractures. Chest: There is diffuse opacity bilaterally, which are favored to be due to overlying soft tissue. However, if clinically concern for acute pulmonary processes, finding could be further evaluated with a two-view chest radiograph. There is no pneumothorax. Mediastinal contours are normal. Mitral annulus calcifications noted ADDENDUM - This addendum is being placed on the report for a time dependent finding on a p atient who is admitted to the hospital (2B). There is left upper lobe opacity, which could be due to asymmetric pulmonary edema. If clinically indicated, 2 view chest radiograph or chest CT can be ordered for further evaluation. These findings were communicated to Dr. Regina Zaldivar by Deepti Mesa at 7:21AM on 03/20/2020. Dictated by: Deepti Mesa M.D. The radiology attending physician has personally reviewed this study, and had reviewed and/or edited this written report and agrees with it. Electronically signed by: Melecio Holland M.D. Xr Spine Thoracic 3 Vw Result Date: 03/20/2020 Cervical spine: 4 views were submitted. Study is limited due to a poor open- mouth view. There is prevertebral soft tissue swelling. Patient's known C2 fracture is better demonstrated on the CT. Severe degenerative disc disease at C4-C5. Heavy calcification of the carotid bulbs is noted. Thoracic spine: 4 views were submitted. Alignment is normal. There is very mild age indeterminant wedging at the mid thoracic spine. Otherwise, the vertebral body heights are normal. Lumbar spine: 3 views were submitted. Alignment is normal. Vertebral body heights are normal. No acute fractures. Chest: There is diffuse opacity bilaterally, which are favored to be due to overlying soft tissue. However, if clinically concern for acute pulmonary processes, finding could be further evaluated with a two-view chest radiograph. There is no pneumothorax. Mediastinal contours are normal. Mitral annulus calcifications noted ADDENDUM - This addendum is being placed on the report for a time dependent finding on a p atient who is admitted to the hospital (2B). There is left upper lobe opacity, which could be due to asymmetric pulmonary edema. If clinically indicated, 2 view chest radiograph or chest CT can be ordered for further evaluation. These findings were communicated to Dr. Regina Zaldivar by Deepti Mesa at 7:21AM on 03/20/2020. Dictated by: Deepti Mesa M.D. The radiology attending physician has personally reviewed this study, and had reviewed and/or edited this written report and agrees with it. Electronically signed by: Melecio Holland M.D. Xr Spine Lumbar 2 Or 3 Views Result Date: 03/20/2020 Cervical spine: 4 views were submitted. Study is limited due to a poor open- mouth view. There is prevertebral soft tissue swelling. Patient's known C2 fracture is better demonstrated on the CT. Severe degenerative disc disease at C4-C5. Heavy calcification of the carotid bulbs is noted. Thoracic spine: 4 views were submitted. Alignment is normal. There is very mild age indeterminant wedging at the mid thoracic spine. Otherwise, the vertebral body heights are normal. Lumbar spine: 3 views were submitted. Alignment is normal. Vertebral body heights are normal. No acute fractures. Chest: There is diffuse opacity bilaterally, which are favored to be due to overlying soft tissue. However, if clinically concern for acute pulmonary processes, finding could be further evaluated with a two-view chest radiograph. There is no pneumothorax. Mediastinal contours are normal. Mitral annulus calcifications noted ADDENDUM - This addendum is being placed on the report for a time dependent finding on a p atient who is admitted to the hospital (2B). There is left upper lobe opacity, which could be due to asymmetric pulmonary edema. If clinically indicated, 2 view chest radiograph or chest CT can be ordered for further evaluation. These findings were communicated to Dr. Regina Zaldivar by Deepti Mesa at 7:21AM on 03/20/2020. Dictated by: Deepti Mesa M.D. The radiology attending physician has personally reviewed this study, and had reviewed and/or edited this written report and agrees with it. Electronically signed by: Melecio Holland M.D. Xr Chest 1 Vw Portable Result Date: 03/20/2020 Cervical spine: 4 views were submitted. Study is limited due to a poor open- mouth view. There is prevertebral soft tissue swelling. Patient's known C2 fracture is better demonstrated on the CT. Severe degenerative disc disease at C4-C5. Heavy calcification of the carotid bulbs is noted. Thoracic spine: 4 views were submitted. Alignment is normal. There is very mild age indeterminant wedging at the mid thoracic spine. Otherwise, the vertebral body heights are normal. Lumbar spine: 3 views were submitted. Alignment is normal. Vertebral body heights are normal. No acute fractures. Chest: There is diffuse opacity bilaterally, which are favored to be due to overlying soft tissue. However, if clinically concern for acute pulmonary processes, finding could be further evaluated with a two-view chest radiograph. There is no pneumothorax. Mediastinal contours are normal. Mitral annulus calcifications noted ADDENDUM - This addendum is being placed on the report for a time dependent finding on a p atient who is admitted to the hospital (2B). There is left upper lobe opacity, which could be due to asymmetric pulmonary edema. If clinically indicated, 2 view chest radiograph or chest CT can be ordered for further evaluation. These findings were communicated to Dr. Regina Zaldivar by Deepti Mesa at 7:21AM on 03/20/2020. Dictated by: Deepti Mesa M.D. The radiology attending physician has personally reviewed this study, and had reviewed and/or edited this written report and agrees with it. Electronically signed by: Melecio Holland M.D. Mri Spine Cervical And Thoracic Wo Contrast Result Date: 03/20/2020 1. Acute comminuted C2 vertebral body fracture extending to the right pedicle and transverse foramen, and left superior articular facet. Associated left C1-C2 facet joint injury and C1-C2 interspinous ligamentous injury. No cord signal abnormality. 2. Additional nondisplaced fracture versus bone contusion of the left lateral mass of C1. 3. Focal disruption of the anterolateral ligament at C2 level, with prevertebral hematoma/edema and trace epidural hematoma. 4. Acute compression fractures of T2 and T3 vertebral bodies, with mild height loss. 5. Degenerative changes of cervical spine as detailed above. Dictated by: Ari Navarro M.D. The radiology attending physician has personallyreviewed this study, and had reviewed and/or edited this written report and agrees with it. Electronically signed by: Danna Ying M.D. Cta Head Neck W Wo Contrast Result Date: 03/20/2020 1. No acute intracranial abnormality. 2. No large vessel occlusion or vascular injury. 3. C2 vertebral body fracture extending into the lateral masses and right pedicle. Dictated by: Gerber Cruz M.D. The radiology attending physician has personally reviewed this study, and had reviewed and/or edited this written report and agrees with it. Electronically signed by: Danna Ying M.D. Ct Thoracic And Lumbar Spine Wo Contrast Result Date: 03/20/2020 1. C2 comminuted vertebral body fracture with involvement of the lateral masses and right pedicle. 2. No acute fracture the thoracic or lumbar spine. Mild T3 vertebral body height loss, likely chronic given absence of edema on the contemporaneous MRI. Addendum: there is T3 edema on the MR suggestive of an acute compression fracture. AlthoughT2 vertebral body and left lateral mass of C1 have marrow edema as seen on MR, no fracture is clearly seen on the CT suggestive of occult fractures. Dictated by: Gerber Cruz M.D. The radiology attending physician has personally reviewed this study, and had reviewed and/or edited this written report and agrees with it. Electronically signed by: Danna Ying M.D. Neuro Ct Mr Outside Consult Result Date: 03/20/2020 1. Unstable comminuted C2 body fracture with extension into the lateral masses and probable involvement of the right foramen transversarium. Recommend CTA head and neck to evaluate for possible arterial injury. The Critical results were discussed with Dr. Mcelroy by Dr. Hameed on 03/20/2020 at 3:37AM The findings, conclusions and recommendations within this report do not replace the initial findings, conclusions and recommendations made at the facility where the study was performed based upon the imaging and clinical condition at that time. Comparison with the prior report and clinical history is necessary. The provided images may or may not represent the [place] source data set and thus may contain changes that may lower the accuracy of this second-opinion interpretation. Dictated by: Alice Hameed M.D. The radiology attending physician has personally reviewed this study, and had reviewed and/or edited this written report and agrees with it. Electronically signed by: KatieD. Stepan M.D. Neuro Ct Mr Outside Consult Result Date: 03/20/2020 1. Unstable comminuted C2 body fracture with extension into the lateral masses and probable involvement of the right foramen transversarium. Recommend CTA head and neck to evaluate for possible arterial injury. The Critical results were discussed with Dr. Mcelroy by Dr. Hameed on 03/20/2020 at 3:37AM The findings, conclusions and recommendations within this report do not replace the initial findings, conclusions and recommendations made at the facility where the study was performed based upon the imaging and clinical condition at that time. Comparison with the prior report and clinical history is necessary. The provided images may or may not represent the [place] source data set and thus may contain changes that may lower the accuracy of this second-opinion interpretation. Dictated by: Alice Hameed M.D. The radiology attending physician has personally reviewed this study, and had reviewed and/or edited this written report and agrees with it. Electronically signed by: KatieD. Stepan M.D. Ct Recon Cervical Spine W Contrast Result Date: 03/20/2020 1. C2 comminuted vertebral body fracture with involvement of the lateral masses and right pedicle. 2. No acute fracture the thoracic or lumbar spine. Mild T3 vertebral body height loss, likely chronic given absence of edema on the contemporaneous MRI. Addendum: there is T3 edema on the MR suggestive of an acute compression fracture. AlthoughT2 vertebral body and left lateral mass of C1 have marrow edema as seen on MR, no fracture is clearly seen on the CT suggestive of occult fractures. Dictated by: Gerber Cruz M.D. The radiology attending physician has personally reviewed this study, and had reviewed and/or edited this written report and agrees with it. Electronically signed by: Danna Ying M.D. Assessment and Plan: Principal Problem: Traumatic closed fracture of C2 vertebra with minimal displacement (CMS/HCC) Active Problems: History of kidney transplant Injury to ligament of cervical spine Acute pain due to trauma HTN (hypertension) CAD (coronary artery disease) Hypothyroidism Chronic UTI #C2 vertebral body fx extending into the pedicle/transverse foramen and C1-C2 facet joint #C2 anterolateral ligament injury + trace epidural hematoma -ortho spine c/s -CTA Head and Neck neg for vascular injury -NON op -Alutiiq J collar (needed) -Uprights pending Alutiiq J -PT/OT -Pain control #T2/T3 vertebral body fractures -ortho spine c/s -CT T/L spine- likely chronic #Acute pain due to trauma -APAP q6 and oxy PRN #h/o kidney transplant -renal transplant c/s- She is on their list to track labs -0500 labs -continue pred 5 and tac 1 BID #HTN -continue home metop 75 BID, lisinopril 10 #CAD -hold ASA 81 -continue home lipitor #hypothyroidism -continue home synthroid 100 #h/o multiple UTIs -continue home trimethoprim 100 -UA +, cx pending---- DVT ppx -Lovenox Dispo -Pending therapy baljeet Santiago NP Cosigned by Deacon Shashi Alegre MD at 03/21/2020 5:24 PM CDT Associated attestation - Deacon Shashi Alegre MD - 03/21/2020 5:24 PM CDT I have seen and examined the patient on 03/21/20 in conjunction with the [employer]. I agree with evaluation, assessment and plan as documented. My additions are below: History: Fall out of bed Injuries: C2 vertebral body fx extending into lateral mass & R pedicle T2/T3 vert body fx C2 ALL injury Physical Exam: Interactive, AAOx4 Alutiiq J collar in place Sclera anicteric, no jaundice Respirations even, unlabored Abdomen soft, NTND Extremities: QUINTERO, warm Labs reviewed Assessment/Plan 85 y.o female s.p fall with injuries as listed - Patient is DNR/DNI - Appreciate nephro recs, tac level high - Appreciate ortho spine recs, non-op mgmt in [facility] - Home transplant meds - HTN meds - DVT ppx Deacon Mer Alegre MD Adjunct Hand Straightener Division of Acute and Critical Care Surgery * Raghav Blakely, [facility] - 03/20/2020 5:18 PM CDT Transplant Pharmacist Medication Reconciliation The transplant clinical pharmacy clinical coordinator has completed a medication review with the patient/caregiver and has made the following edits to the medication list Medication additions Acyclovir Medication deletions Metoprolol 25 mg BID (takes 50 mg BID) Medication alterations Trimethoprim 50 mg HS (previously 100 mg) Home medications - following pharmacist reconciliation Juliet Dunlap Home Medication Instructions ELOISE:[id number] Printed on:03/20/20 1408 Medication Information 08 AM 10 AM 12 Noon 06 PM 08 PM 10 PM Bed time acyclovir (ZOVIRAX) 200 mg capsule Take 200 mg by mouth 2 (two) times a day aspirin 81 mg tablet Take 81 mg by mouth every morning. biotin 1 mg tablet Take 2 tablets by mouth daily before breakfast cholecalciferol (VITAMIN D-3) 2,000 unit tablet Take 1 tablet (2,000 Units total) by mouth daily. cyanocobalamin (Vitamin B-12) 100 mcg tablet Take 100 mcg by mouth daily levothyroxine (SYNTHROID) 100 mcg tablet TAKE 1 TABLET(100 MCG) BY MOUTH MACHINE OR MACHINERY MECHANIC AND BEFORE BREAKFAST lisinopriL (PRINIVIL,ZESTRIL) 10 mg tablet Take 1 tablet (10 mg total) by mouth property management intern before breakfast metoprolol (LOPRESSOR) 50 mg tablet Take 1 tablet (50 mg total) by mouth 2 (two) times a day pravastatin (PRAVACHOL) 20 mg tablet Take 20 mg by mouth nightly. predniSONE (DELTASONE) 5 mg tablet Take 1 tablet (5 mg) by mouth property management intern before breakfast tacrolimus (PROGRAF) 1 mg capsule Take 1 capsule (1 mg total) by mouth 2 (two) times a day tobramycin (TOBREX) 0.3 % ophthalmic solution Instill 1 drop into surgical eye three times daily starting two days before surgery trimethoprim (TRIMPEX) 100 mg tablet Take 50 mg by mouth nightly Allergies - following pharmacist reconciliation Nitrofurantoin, Tetracycline, Tetracyclines, Levofloxacin, Codeine, and Keflex [cephalexin] Raghav Blakely, [facility] Clinical Commercial Driver * Mikayla Jimenez MD - 03/20/2020 4:30 PM CDT Admitted s/p fall, found to have C2 vertebral body fracture 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 -continue home IS regimen -will follow up on AM tacrolimus level -continue acyclovir 200 mg BID for history of shingles Others: -UA with proteinuria, also leukocyte esterase and nitrite positive - culture in process, will follow -hypertension, confounded by pain - home lisinopril and metoprolol resumed, can up-titrate as needed 03/20/20 Mikayla Jimenez MD Nephrology Fellow, PGY-V Transplant Nephrology Service Please call [phone] from 7am- 5pm Mon-Fri After hours and weekends: please page [phone] * Samia Thompson NP - 03/20/2020 3:40 PM CDT [facility] Geriatric Trauma Surgery Daily Progress Note Admit: 03/19/2020 8:19 PM Date: March 20, 2020 Length of Stay: 0 Attending: Deacon Shashi Alegre MD POD:* No surgery found * History: Juliet Dunlap is a 85 y.o. female with a past medical history kidney transplant in 2012, CAD, HTN, hypothyroidism, HBV, GERD, hiatal hernia, HLD who presented as a transfer from [facility] with C2 comminuted vertebral body fracture with extension to bilateral masses and right foramen, C4/5 anterolisthesis. She was noted to be neuro intact. Head CT scan reportedly without acute abnormality. There was no other concern for other injury based on exam. Patient ambulated after the event. Upon presentation the patient was evaluated by orthopedic spine surgery who recommended non operative management in a Alutiiq J collar. CTA demonstrated no large vessel occlusion or vascular injury.Renal transplant was consulted and home medications were continued. Patient was admitted to the floor for therapy evaluation. Interval History: 03/20- New admit to floor Pain:controlled Nausea: No Flatus: Yes Bowel Movement: No Medications: Current Facility-Administered Medications: ??? acetaminophen (TYLENOL) tablet 1,000 mg, 1,000 mg, oral, Q6H Jose VALLADARES MD ??? HYDROmorphone (DILAUDID) injection 0.2 mg, 0.2 mg, intravenous, Q4H PRN, Jose So MD ??? [START ON 03/21/2020] levothyroxine (SYNTHROID) tablet 100 mcg, 100 mcg, oral, Daily - 0600, Jose So MD ??? [START ON 03/21/2020] lisinopriL (PRINIVIL,ZESTRIL) tablet 10 mg, 10 mg, oral, Daily - 0600, Jose So MD ??? metoprolol tartrate (LOPRESSOR) immediate release tablet 25 mg, 25 mg, oral, BID, Jose So MD ??? metoprolol tartrate (LOPRESSOR) immediate release tablet 50 mg, 50 mg, oral, BID, Jose So MD ??? oxyCODONE (ROXICODONE) tablet 5 mg, 5 mg, oral, Q4H PRN, Jose So MD ??? pravastatin (PRAVACHOL) tablet 20 mg, 20 mg, oral, Nightly, Jose So MD ??? predniSONE (DELTASONE) tablet 5 mg, 5 mg, oral, Daily, Jose So MD, 5 mg at 03/20/20 0852 ??? sodium chloride 0.9% infusion, 50 mL/hr, intravenous, Continuous, Jose So MD, Last Rate: 50 mL/hr at 03/20/20 1510, 50 mL/hr at 03/20/20 1510 ??? tacrolimus (PROGRAF) capsule 1 mg, 1 mg, oral, Q12H BLAINE, Jose So MD, 1 mg at 03/20/20 0852 ??? trimethoprim (TRIMPEX) tablet 100 mg, 100 mg, oral, Nightly, Jose So MD Diet: Activity: As tolerated Is&Os: No intake/output data recorded. I/O this shift: In: - Out: 450 [Urine:450] Physical Exam: 24hr Min/Max: Temp Min: 36.6 ??C (97.9 ??F) Max: 36.9 ??C (98.4 ??F) Pulse Min: 87 Max: 94 BP Min: 152/106 Max: 180/86 Resp Min: 15 Max: 20 SpO2 Min: 95 % Max: 100 % Vitals: 03/20/20 1504 BP: (!) 175/87 Pulse: 94 Resp: 18 Temp: 36.6 ??C (97.9 ??F) SpO2: 98% Constitutional: well developed, well nourished and no apparent distress Head: normocephalic, without obvious abnormality Neurologic: alert and oriented x4 numbness to right index finger Eyes: lids and lashes normal, conjunctiva normal HENT: mucous membranes moist Neck: C collar in place, Ecchymosis to right lower neck Chest: normal appearance, no masses or tenderness Respiratory: normal chest rise and fall Cardiovascular: regular rate and regular rhythm Gastrointestinal: non-distended and no masses palpable Musculoskeletal: extremities normal, warm and well-perfused Skin: skin color, texture, turgor normal. No rashes or lesions Rosales- clear/yellow urine Labs/Imaging: Recent Results (from the past 72 hour(s)) CBC with auto differential Collection Time: 03/19/20 8:44 PM Result Value Ref Range WBC 8.5 3.8 - 9.9 K/cumm Hgb 13.6 11.9 - 15.5 g/dL Hct 40.3 35.6 - 45.5 % Plt 121 (L) 150 - 400 K/cumm MPV 10.9 9.1 - 12.3 fL RBC 4.11 3.90 - 5.20 M/cumm MCV 98.1 (H) 81.3 - 96.4 fL MCH 33.1 27.1 - 33.3 pg MCHC 33.7 32.3 - 35.7 g/dL RDW CV 12.2 11.1 - 14.9 % RDW SD 44.0 35.7 - 48.1 fL NRBC abs 0.00 0.00 - 0.01 K/cumm Comprehensive metabolic panel Collection Time: 03/19/20 8:44 PM Result Value Ref Range Sodium 139 135 - 145 mmol/L Potassium, pl 5.0 (H) 3.3 - 4.9 mmol/L Chloride 105 97 - 110 mmol/L CO2 25 22 - 32 mmol/L Anion gap 9 2 - 15 mmol/L BUN 27 (H) 8 - 25 mg/dL Creatinine 0.84 0.60 - 1.10 mg/dL Glucose 129 70 - 199 mg/dL Calcium 10.2 8.5 - 10.3 mg/dL Bilirubin, total 0.8 0.1 - 1.2 mg/dL Protein, pl 7.3 6.5 - 8.5 g/dL Albumin 4.1 3.5 - 5.0 g/dL Alk phos 115 40 - 130 Units/L ALT 17 7 - 45 Units/L AST 24 10 - 45 Units/L Protime-INR Collection Time: 03/19/20 8:44 PM Result Value Ref Range PT 11.9 8.6 - 13.0 sec INR 1.1 0.8 - 1.2 aPTT Collection Time: 03/19/20 8:44 PM Result Value Ref Range aPTT 26 25 - 37 sec Type and screen Collection Time: 03/19/20 8:44 PM Result Value Ref Range Emerita, indirect Negative ABO Rh B Positive Differential, auto Collection Time: 03/19/20 8:44 PM Result Value Ref Range Neutrophil abs 7.5 (H) 1.7 - 6.5 K/cumm Imm gran abs 0.1 0.0 - 0.1 K/cumm Lymphocyte abs 0.4 (L) 0.8 - 3.3 K/cumm Monocyte abs 0.5 0.2 - 0.8 K/cumm Eosinophil abs 0.0 0.0 - 0.5 K/cumm Basophil abs 0.0 0.0 - 0.1 K/cumm Neutrophil pct 88.6 % Imm gran pct 0.6 % Lymphocyte pct 4.7 % Monocyte pct 5.9 % Eosinophil pct 0.0 % Basophil pct 0.2 % Urinalysis reflex to microscopic and culture Urine Collection Time: 03/19/20 10:46 PM Specimen: Urine Result Value Ref Range Color, ur Sangeetha Yellow Clarity, ur Cloudy (A) Clear Specific gravity, ur 1.029 (H) 1.010 - 1.025 pH, urine 7 Protein, ur ql 2+ (A) Negative Glucose, ur ql Negative Negative Ketones, ur 1+ (A) Negative Bilirubin, ur Negative Negative Blood, ur Negative Negative Urobilinogen, ur <2.0 <2.0 mg/dL Nitrite, ur Positive (A) Negative Leukocyte esterase, ur 3+ (A) Negative UA reflex comment Reflex to microscopic UA will be performed. COVID-19 Coronavirus RNA Nasopharyngeal Collection Time: 03/19/20 10:46 PM Specimen: Nasopharyngeal Result Value Ref Range COVID-19 Coronavirus RNA Not Detected Urinalysis, microscopic only Collection Time: 03/19/20 10:46 PM Result Value Ref Range WBC, ur 21-50 (A) 0 - 5 /HPF RBC, ur 0-2 0 - 2 /HPF Bacteria, ur 1+ (A) Mucous, ur Present (A) Amorphous crystals, ur 2+ (A) Culture Reflex Comment Reflex to urine culture will be performed. Xr Chest 2 Views Result Date: 03/20/2020 Comparison is made to prior study performed earlier today at 3:15 AM. In the interval, there has been no change in mild blunting of the costophrenic angles which may represent tiny pleural effusions.Heart size is moderately enlarged. Mild basilar atelectasis is seen. On the lateral projection noteis made of mild basilar pulmonary edema. No pneumothorax is seen. Previously seen upper lung airspace opacities note not seen. Electronically signed by: Melecio Holland M.D. Xr Spine Cervical 2 Or 3 Views Result Date: 03/20/2020 Cervical spine: 4 views were submitted. Study is limited due to a poor open- mouth view. There is prevertebral soft tissue swelling. Patient's known C2 fracture is better demonstrated on the CT. Severe degenerative disc disease at C4-C5. Heavy calcification of the carotid bulbs is noted. Thoracic spine: 4 views were submitted. Alignment is normal. There is very mild age indeterminant wedging at the mid thoracic spine. Otherwise, the vertebral body heights are normal. Lumbar spine: 3 views were submitted. Alignment is normal. Vertebral body heights are normal. No acute fractures. Chest: There is diffuse opacity bilaterally, which are favored to be due to overlying soft tissue. However, if clinically concern for acute pulmonary processes, finding could be further evaluated with a two-view chest radiograph. There is no pneumothorax. Mediastinal contours are normal. Mitral annulus calcifications noted ADDENDUM - This addendum is being placed on the report for a time dependent finding on a p atient who is admitted to the hospital (2B). There is left upper lobe opacity, which could be due to asymmetric pulmonary edema. If clinically indicated, 2 view chest radiograph or chest CT can be ordered for further evaluation. These findings were communicated to Dr. Regina Zalidvar by Deepti Mesa at 7:21AM on 03/20/2020. Dictated by: Deepti Mesa M.D. The radiology attending physician has personally reviewed this study, and had reviewed and/or edited this written report and agrees with it. Electronically signed by: Melecio Holland M.D. Xr Spine Thoracic 3 Vw Result Date: 03/20/2020 Cervical spine: 4 views were submitted. Study is limited due to a poor open- mouth view. There is prevertebral soft tissue swelling. Patient's known C2 fracture is better demonstrated on the CT. Severe degenerative disc disease at C4-C5. Heavy calcification of the carotid bulbs is noted. Thoracic spine: 4 views were submitted. Alignment is normal. There is very mild age indeterminant wedging at the mid thoracic spine. Otherwise, the vertebral body heights are normal. Lumbar spine: 3 views were submitted. Alignment is normal. Vertebral body heights are normal. No acute fractures. Chest: There is diffuse opacity bilaterally, which are favored to be due to overlying soft tissue. However, if clinically concern for acute pulmonary processes, finding could be further evaluated with a two-view chest radiograph. There is no pneumothorax. Mediastinal contours are normal. Mitral annulus calcifications noted ADDENDUM - This addendum is being placed on the report for a time dependent finding on a p atient who is admitted to the hospital (2B). There is left upper lobe opacity, which could be due to asymmetric pulmonary edema. If clinically indicated, 2 view chest radiograph or chest CT can be ordered for further evaluation. These findings were communicated to Dr. Regina Zaldivar by Deepti Mesa at 7:21AM on 03/20/2020. Dictated by: Deepti Mesa M.D. The radiology attending physician has personally reviewed this study, and had reviewed and/or edited this written report and agrees with it. Electronically signed by: Melecio Holland M.D. Xr Spine Lumbar 2 Or 3 Views Result Date: 03/20/2020 Cervical spine: 4 views were submitted. Study is limited due to a poor open- mouth view. There is prevertebral soft tissue swelling. Patient's known C2 fracture is better demonstrated on the CT. Severe degenerative disc disease at C4-C5. Heavy calcification of the carotid bulbs is noted. Thoracic spine: 4 views were submitted. Alignment is normal. There is very mild age indeterminant wedging at the mid thoracic spine. Otherwise, the vertebral body heights are normal. Lumbar spine: 3 views were submitted. Alignment is normal. Vertebral body heights are normal. No acute fractures. Chest: There is diffuse opacity bilaterally, which are favored to be due to overlying soft tissue. However, if clinically concern for acute pulmonary processes, finding could be further evaluated with a two-view chest radiograph. There is no pneumothorax. Mediastinal contours are normal. Mitral annulus calcifications noted ADDENDUM - This addendum is being placed on the report for a time dependent finding on a p atient who is admitted to the hospital (2B). There is left upper lobe opacity, which could be due to asymmetric pulmonary edema. If clinically indicated, 2 view chest radiograph or chest CT can be ordered for further evaluation. These findings were communicated to Dr. Regina Zaldivar by Deepti Mesa at 7:21AM on 03/20/2020. Dictated by: Deepti Mesa M.D. The radiology attending physician has personally reviewed this study, and had reviewed and/or edited this written report and agrees with it. Electronically signed by: Melecio Holland M.D. Xr Chest 1 Vw Portable Result Date: 03/20/2020 Cervical spine: 4 views were submitted. Study is limited due to a poor open- mouth view. There is prevertebral soft tissue swelling. Patient's known C2 fracture is better demonstrated on the CT. Severe degenerative disc disease at C4-C5. Heavy calcification of the carotid bulbs is noted. Thoracic spine: 4 views were submitted. Alignment is normal. There is very mild age indeterminant wedging at the mid thoracic spine. Otherwise, the vertebral body heights are normal. Lumbar spine: 3 views were submitted. Alignment is normal. Vertebral body heights are normal. No acute fractures. Chest: There is diffuse opacity bilaterally, which are favored to be due to overlying soft tissue. However, if clinically concern for acute pulmonary processes, finding could be further evaluated with a two-view chest radiograph. There is no pneumothorax. Mediastinal contours are normal. Mitral annulus calcifications noted ADDENDUM - This addendum is being placed on the report for a time dependent finding on a patient who is admitted to the hospital (2B). There is left upper lobe opacity, which could be due to asymmetric pulmonary edema. If clinically indicated, 2 view chest radiograph or chest CT can be ordered for further evaluation. These findings were communicated to Dr. Regina Zaldivar by Deepti Mesa at 7:21 AM on 03/20/2020. Dictated by: Deepti Mesa M.D. The radiology attending physician has personally reviewed this study, and had reviewed and/or edited this written report and agrees with it. Electronically signed by: Melecio Holland M.D. Mri Spine Cervical And Thoracic Wo Contrast Result Date: 03/20/2020 1. Acute comminuted C2 vertebral body fracture extending to the right pedicle and transverse foramen, and left superior articular facet. Associated left C1-C2 facet joint injury and C1-C2 interspinous ligamentous injury. No cord signal abnormality. 2. Additional nondisplaced fracture versus bone contusion of the left lateral mass of C1. 3. Focal disruption of the anterolateral ligament at C2 level, with prevertebral hematoma/edema and trace epidural hematoma. 4. Acute compression fractures of T2 and T3 vertebral bodies, with mild height loss. 5. Degenerative changes of cervical spine as detailed above. Dictated by: Ari Navarro M.D. The radiology attending physician has personallyreviewed this study, and had reviewed and/or edited this written report and agrees with it. Electronically signed by: Danna Ying M.D. Cta Head Neck W Wo Contrast Result Date: 03/20/2020 1. No acute intracranial abnormality. 2. No large vessel occlusion or vascular injury. 3. C2 vertebral body fracture extending into the lateral masses and right pedicle. Dictated by: Gerber Cruz M.D. The radiology attending physician has personally reviewed this study, and had reviewed and/or edited this written report and agrees with it. Electronically signed by: Danna Ying M.D. Ct Thoracic And Lumbar Spine Wo Contrast Result Date: 03/20/2020 1. C2 comminuted vertebral body fracture with involvement of the lateral masses and right pedicle. 2. No acute fracture the thoracic or lumbar spine. Mild T3 vertebral body height loss, likely chronic given absence of edema on the contemporaneous MRI. Addendum: there is T3 edema on the MR suggestive of an acute compression fracture. AlthoughT2 vertebral body and left lateral mass of C1 have marrow edema as seen on MR, no fracture is clearly seen on the CT suggestive of occult fractures. Dictated by: Gerber Cruz M.D. The radiology attending physician has personally reviewed this study, and had reviewed and/or edited this written report and agrees with it. Electronically signed by: Danna Ying M.D. Neuro Ct Mr Outside Consult Result Date: 03/20/2020 1. Unstable comminuted C2 body fracture with extension into the lateral masses and probable involvement of the right foramen transversarium. Recommend CTA head and neck to evaluate for possible arterial injury. The Critical results were discussed with Dr. Mcelroy by Dr. Hameed on 03/20/2020 at 3:37AM The findings, conclusions and recommendations within this report do not replace the initial findings, conclusions and recommendations made at the facility where the study was performed based upon the imaging and clinical condition at that time. Comparison with the prior report and clinical history is necessary. The provided images may or may not represent the [place] source data set and thus may contain changes that may lower the accuracy of this second-opinion interpretation. Dictated by: Alice Hmaeed M.D. The radiology attending physician has personally reviewed this study, and had reviewed and/or edited this written report and agrees with it. Electronically signed by: KatieD. Stepan M.D. Neuro Ct Mr Outside Consult Result Date: 03/20/2020 1. Unstable comminuted C2 body fracture with extension into the lateral masses and probable involvement of the right foramen transversarium. Recommend CTA head and neck to evaluate for possible arterial injury. The Critical results were discussed with Dr. Mcelroy by Dr. Hameed on 03/20/2020 at 3:37AM The findings, conclusions and recommendations within this report do not replace the initial findings, conclusions and recommendations made at the facility where the study was performed based upon the imaging and clinical condition at that time. Comparison with the prior report and clinical history is necessary. The provided images may or may not represent the [place] source data set and thus may contain changes that may lower the accuracy of this second-opinion interpretation. Dictated by: Alice Hameed M.D. The radiology attending physician has personally reviewed this study, and had reviewed and/or edited this written report and agrees with it. Electronically signed by: KatieD. Stepan M.D. Ct Recon Cervical Spine W Contrast Result Date: 03/20/2020 1. C2 comminuted vertebral body fracture with involvement of the lateral masses and right pedicle. 2. No acute fracture the thoracic or lumbar spine. Mild T3 vertebral body height loss, likely chronic given absence of edema on the contemporaneous MRI. Addendum: there is T3 edema on the MR suggestive of an acute compression fracture. AlthoughT2 vertebral body and left lateral mass of C1 have marrow edema as seen on MR, no fracture is clearly seen on the CT suggestive of occult fractures. Dictated by: Gerber Cruz M.D. The radiology attending physician has personally reviewed this study, and had reviewed and/or edited this written report and agrees with it. Electronically signed by: Danna Ying M.D. Assessment and Plan: Active Problems: No Active Problems: There are no active problems currently on the Problem List. Please update the Problem List and refresh. #C2 vertebral body fx extending into the pedicle/transverse foramen and C1-C2 facet joint #C2 anterolateral ligament injury + trace epidural hematoma -ortho spine c/s -CTA Head and Neck neg for vascular injury -NON op -Alutiiq J collar -PT/OT #T2/T3 vertebral body fractures -ortho spine c/s -CT T/L spine- likely chronic #h/o kidney transplant -renal transplant c/s- She is on their list to track labs -0500 labs -continue pred 5 and tac 1 BID #HTN -continue home metop 75 BID, lisinopril 10 #CAD -hold ASA 81 -continue home lipitor #hypothyroidism -continue home synthroid 100 #h/o multiple UTIs -continue home trimethoprim 100 DVT ppx- Lovenox PT/OT pending Kirstie Thompson NP Cosigned by Deacon Shashi Alegre MD at 03/20/2020 9:00 PM CDT documented in this encounter Consult Notes * Mikayla Jimenez MD - 03/21/2020 1:02 PM CDT NEPHROLOGY INITIAL CONSULT NOTE Reason for Consult: No data found Requesting Provider: Deacon Shashi Alegre MD Chief Complaint: S/p fall History of Presenting Illness: Juliet Dunlap is 85 y.o. 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 Renal consultation is requested for management ofinpatient immunosuppression. At the time of my evaluation, the patient is resting comfortably in bed. She remains with a C-collar. Denies focal motor deficits. Is concerned about impact of pain medications on her kidney function. ROS: As per HPI. All other systems are negative. Past Medical History: Diagnosis Date ??? Abdominal pain ??? Bruising ??? CAD (coronary artery disease) ??? CAD (coronary artery disease) 03/21/2020 ??? Fatigue ??? Frequent urination ??? GERD (gastroesophageal reflux disease) ??? Hiatal hernia schatzki ring ??? HL (hearing loss) ??? Hyperlipidemia ??? Hypertension ??? Hypothyroidism ??? Migraines ??? Peritoneal dialysis status ([facility]) From 2009 to 2012 prior to transplant [...] 1941 ??? VEIN LIGATION AND STRIPPING 1992 Social History Socioeconomic History ??? Marital status: Spouse name: Not on file ??? Number of children: Not on file ??? Years of education: Not on file ??? Highest education level: Not on file Occupational History ??? Not on file Social Needs ??? Financial resource strain: Not on file ??? Food insecurity Worry: Not on file Inability: Not on file ??? Transportation needs Medical: Not on file Non-medical: Not on file Tobacco Use ??? Smoking status: Never Smoker ??? Smokeless tobacco: Never Used Substance and Sexual Activity ??? Alcohol use: No ??? Drug use: No ??? Sexual activity: Defer Lifestyle ??? Physical activity Days per week: Not on file Minutes per session: Not on file ??? Stress: Not on file Relationships ??? Social connections Talks on phone: Not on file Gets together: Not on file Attends quaker service: Not on file Active member of club or organization: Not on file Attends meetings of clubs or organizations: Not on file Relationship status: Not on file ??? Intimate partner violence Fear of current or ex partner: Not on file Emotionally abused: Not on file Physically abused: Not on file Forced sexual activity: Not on file Other Topics Concern ??? Not on file Social History Narrative ??? Not on file Family History Problem Relation Age of Onset ??? Cancer Other Family history of Cancer; ??? Kidney disease Other Family history of Renal disease; ??? Stroke Other Family history of Stroke; ??? Pancreatic cancer Mother ??? Heart disease Father Allergies Allergen Reactions ??? Nitrofurantoin Rash ??? Tetracycline Rash ??? Tetracyclines Rash ??? Levofloxacin Unknown ? ? Codeine Dizziness, Nausea & Vomiting and Nausea Only ??? Keflex [Cephalexin] Other (See comments) Trouble with bladder Medications Prior to Admission Medication Sig Dispense Refill Last Dose ??? acyclovir (ZOVIRAX) 200 mg capsule Take 200 mg by mouth 2 (two) times a day ??? aspirin 81 mg tablet Take 81 mg by mouth every morning. ??? biotin 1 mg tablet Take 2 tablets by mouth daily before breakfast ??? cholecalciferol (VITAMIN D-3) 2,000 unit tablet Take 1 tablet (2,000 Units total) by mouth daily. (Patient taking differently: Take 2,000 Units by mouth property management intern before breakfast. ) 30 tablet 11 ??? cyanocobalamin (Vitamin B-12) 100 mcg tablet Take 100 mcg by mouth daily ??? levothyroxine (SYNTHROID) 100 mcg tablet TAKE 1 TABLET(100 MCG) BY MOUTH MACHINE OR MACHINERY MECHANIC AND BEFORE BREAKFAST 30 tablet 11 ??? lisinopriL (PRINIVIL,ZESTRIL) 10 mg tablet Take 1 tablet (10 mg total) by mouth property management intern before breakfast 90 tablet 3 ??? metoprolol (LOPRESSOR) 50 mg tablet Take 1 tablet (50 mg total) by mouth 2 (two) times a day 180 tablet 3 ??? pravastatin (PRAVACHOL) 20 mg tablet Take 20 mg by mouth nightly. ??? predniSONE (DELTASONE) 5 mg tablet Take 1 tablet (5 mg) by mouth property management intern before [id number] tablet 11 ??? tacrolimus (PROGRAF) 1 mg capsule Take 1 capsule (1 mg total) by mouth 2 (two) times a day 60 capsule 11 ??? tobramycin (TOBREX) 0.3 % ophthalmic solution Instill 1 drop into surgical eye three times daily starting two days before surgery (Patient not taking: Reported on 09/15/2019) 5 mL 1 ??? trimethoprim (TRIMPEX) 100 mg tablet Take 50 mg by mouth nightly Medications A) Scheduledacetaminophen, 1,000 mg, oral, Q6H BLAINE acyclovir, 200 mg, oral, BID enoxaparin, 30 mg, subcutaneous, Q12H BLAINE levothyroxine, 100 mcg, oral, Daily - 0600 lisinopriL, 10 mg, oral, Daily - 0600 metoprolol tartrate, 50 mg, oral, BID pravastatin, 20 mg, oral, Nightly predniSONE, 5 mg, oral, Daily senna-docusate, 1 tablet, oral, BID tacrolimus, 1 mg, oral, Q12H BLAINE trimethoprim, 100 mg, oral, Nightly B) Infusions, if prescribed C) PRN, if prescribed oxyCODONE Intake and Output Intake/Output Summary (Last 24 hours) at 03/21/2020 1302 Last data filed at 03/21/2020 0050 Gross per 24 hour Intake -- Output 950 ml Net -950 ml Vital Signs Vitals: 03/21/20 1004 03/21/20 1055 03/21/20 1129 BP: (!) 176/83 Comment: DEREK Torres notified 161/82 170/81 Pulse: 93 Comment: post-mobility 79 Resp: 16 Temp: 36.9 ??C (98.4 ??F) SpO2: 93% 94% Physical Examination BP 170/81 (BP Location: Right arm, Patient Position: Lying) Pulse 79 Temp 36.9 ??C (98.4 ??F) (Oral) Resp 16 Ht 157.5 cm (5' 2 ) Wt 60 kg (132 lb 4.4 oz) SpO2 94% BMI 24.19 kg/m?? Physical Exam Constitutional: She is oriented to person, place, and time and well-developed, well-nourished, and in no distress. HENT: Head: Normocephalic and atraumatic. Mouth/Throat: Oropharynx is clear and moist. C-collar Eyes: No scleral icterus. Cardiovascular: Normal rate, regular rhythm, normal heart sounds and intact distal pulses. Exam reveals no gallop and no friction rub. No murmur heard. Pulmonary/Chest: Effort normal and breath sounds normal. No respiratory distress. She has no wheezes. She has no rales. Abdominal: Soft. She exhibits no distension. There is no abdominal tenderness. There is no rebound and no guarding. Musculoskeletal: Normal range of motion. General: No edema. Neurological: She is alert and oriented to person, place, and time. Skin: Skin is warm and dry. Psychiatric: Affect and judgment normal. Nursing note and vitals reviewed. 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 and lisinopril 10 mg daily -can uptitrate as needed -confounded by pain Thank you for your consult. 03/21/20 Mikayla Jimenez MD Nephrology Fellow, PGY-V Transplant Nephrology Service Please call [phone] from 7am- 5pm Mon-Fri After hours and weekends: please page [phone] Cosigned by Ritchie Rodriguez MD at 03/21/2020 1:30 PM CDT Associated attestation - Ritchie Rodriguez MD - 03/21/2020 1:30 PM CDT I have seen and examined the patient on 03/21/20. I agree with the findings and plan of care as documented in the resident's/fellow's note.. Agree with holding Tac, will follow tomorrows levels Please repeat a UA with reflex Cx to make sure we are not dealing with a jovanni milagro UTI * Jose So MD - 03/19/2020 10:57 PM CDTAssociated Order(s): IP CONSULT TO GENERAL SURGERY [facility] Trauma Surgery History and Physical Date of Evaluation: 03/19/20 Sex: female Date of : 1935 Consulting provider: Consult to General Surgery Consult performed by: Jose So MD Consult ordered by: Jessi Aldana MD Trauma Level Consult Assessment: 85yoF with PMH kidney transplant in 2013, CAD, HTN, hypothyroidism presenting from OSH with C2 fracture following fall today. She is neuro intact. Head CT scan reportedly without acute abnormality. Low concern for other injury based on exam. Patient ambulated after event. IP CONSULT TO ORTHO SPINE IP CONSULT TO GENERAL SURGERY Plan: -upload OSH scans and nominate for radiology read -ortho spine consult -CXR -CTA head and neck -will plan to admit to GTS, dispo pending spine recs -will consult renal transplant in the am Jose So Trauma Surgery March 19, 2020 10:57 PM Discussed with attending: Sherri Azar at 2300 (time). Physician requesting consult: Garth Vargas,* with the emergency department has asked that we see Juliet Dunlap for evaluation following traumatic injury. Method of transport: Ambulance Transported: from Outside hospital: [facility] History of Injury/Accident, Subjective: Pre Hospital (events preceding injury, mechanism, treatments, clinical course): 85yoF with history of renal transplant 2012 for ESRD 2/2 vasculitis, CAD, HTN, hypothyroidism, hyperparathyroidism s/p parathyroidectomy 1994, and hiatal hernia trasnferred from an OSH with a C2 fx following fall today. Patient fell out of bed this morning. When she went to stand up she slipped andhit her head on her night stand. She had immediate neck pain. Her had to help her up but she was able to ambulate down the stairs to the car to go to the OSH. She denies any weakness, numbness, or tingling. Xarelto listed in home meds, but she has not been on any anticoagulation since October(was being worked up for IJ clot given history of HD lines). Per OSH report, no intracranial injuryon CT scan, but does have a C2 fracture. Patient transferred to [facility] for further management. She has no complaints apart from neck pain. She has a skin tear to her left hand but no bony tenderness. She is neuro intact, A&O x4, GCS 15. No chest wall, abdomen, or pelvic pain. Allergies: Allergies Allergen Reactions ??? Nitrofurantoin Rash ??? Tetracycline Rash ??? Tetracyclines Rash ??? Levofloxacin Unknown ? ? Codeine Dizziness, Nausea & Vomiting and Nausea Only ??? Keflex [Cephalexin] Other (See comments) Trouble with bladder Medications: No current facility-administered medications on file prior to encounter. Current Outpatient Medications on File Prior to Encounter Medication Sig Dispense Refill ??? aspirin 81 mg tablet Take 81 mg by mouth every morning. ??? biotin 1 mg tablet Take 2 tablets by mouth daily before breakfast ??? cholecalciferol (VITAMIN D-3) 2,000 unit tablet Take 1 tablet (2,000 Units total) by mouth daily. (Patient taking differently: Take 2,000 Units by mouth property management intern before breakfast. ) 30 tablet 11 ??? cyanocobalamin (Vitamin B-12) 100 mcg tablet Take 100 mcg by mouth daily ??? levothyroxine (SYNTHROID) 100 mcg tablet TAKE 1 TABLET(100 MCG) BY MOUTH MACHINE OR MACHINERY MECHANIC AND BEFORE BREAKFAST 30 tablet 11 ??? lisinopriL (PRINIVIL,ZESTRIL) 10 mg tablet Take 1 tablet (10 mg total) by mouth property management intern before breakfast 90 tablet 3 ??? metoprolol (LOPRESSOR) 50 mg tablet Take 1 tablet (50 mg total) by mouth 2 (two) times a day 180 tablet 3 ??? metoprolol tartrate (LOPRESSOR) 25 mg immediate release tablet Take 1 tablet (25 mg total) by mouth 2 (two) times a day 60 tablet 11 ??? pravastatin (PRAVACHOL) 20 mg tablet Take 20 mg by mouth nightly. ??? predniSONE (DELTASONE) 5 mg tablet Take 1 tablet (5 mg) by mouth property management intern before [id number] tablet 11 ??? rivaroxaban (XARELTO) 10 mg tablet Take 10 mg by mouth daily ??? sodium bicarbonate 325 mg tablet Take 2 tablets (650 mg total) by mouth daily 180 tablet 3 ??? tacrolimus (PROGRAF) 1 mg capsule Take 1 capsule (1 mg total) by mouth 2 (two) times a day 60 capsule 11 ??? tobramycin (TOBREX) 0.3 % ophthalmic solution Instill 1 drop into surgical eye three times daily starting two days before surgery (Patient not taking: Reported on 09/15/2019) 5 mL 1 ??? trimethoprim (TRIMPEX) 100 mg tablet Take 100 mg by mouth nightly Immunizations: There is no immunization history on file for this patient. Past Medical History: Past Medical History: Diagnosis Date ??? Abdominal pain ??? Bruising ??? CAD (coronary artery disease) ??? Fatigue ??? Frequent urination ??? GERD (gastroesophageal reflux disease) ??? Hiatal hernia schatzki ring ??? HL (hearing loss) ??? Hyperlipidemia ??? Hypertension ??? Hypothyroidism ??? Migraines ??? Peritoneal dialysis status ([facility]) From 2009 to 2012 prior to transplant ??? Postoperative delirium 02/2013 hallucinations s/p kidney transplant, saw flashes of color and puffs of smoke ??? Renal failure received 1 episode chemo to try to save Kidney in 2008 ??? Shingles 2008 Surgical History: Past Surgical History: Procedure Laterality [...] 1944 ??? VEIN LIGATION AND STRIPPING 1992 Family History: Family History Problem Relation Age of Onset ??? Cancer Other Family history of Cancer; ??? Kidney disease Other Family history of Renal disease; ??? Stroke Other Family history of Stroke; ??? Pancreatic cancer Mother ??? Heart disease Father Social: Social History Socioeconomic History ??? Marital status: Spouse name: Not on file ??? Number of children: Not on file ??? Years of education: Not on file ??? Highest education level: Not on file Occupational History ??? Not on file Social Needs ??? Financial resource strain: Not on file ??? Food insecurity Worry: Not on file Inability: Not on file ??? Transportation needs Medical: Not on file Non-medical: Not on file Tobacco Use ??? Smoking status: Never Smoker ??? Smokeless tobacco: Never Used Substance and Sexual Activity ??? Alcohol use: No ??? Drug use: No ??? Sexual activity: Defer Lifestyle ??? Physical activity Days per week: Not on file Minutes per session: Not on file ??? Stress: Not on file Relationships ??? Social connections Talks on phone: Not on file Gets together: Not on file Attends quaker service: Not on file Active member of club or organization: Not on file Attends meetings of clubs or organizations: Not on file Relationship status: Not on file ??? Intimate partner violence Fear of current or ex partner: Not on file Emotionally abused: Not on file Physically abused: Not on file Forced sexual activity: Not on file Other Topics Concern ??? Not on file Social History Narrative ??? Not on file SURVEY Primary Assessment Eye Opening: Spontaneous Best Verbal Response: Oriented Best Motor Response: Obeys commands [place] Coma Scale Score: 15 Resuscitation Phase & Emergency Treatments Pt received pain medication Trauma Team: Attending: Sherri Azar Jose: Jose So Consultants: (name of attending) IP CONSULT TO ORTHO SPINE IP CONSULT TO GENERAL SURGERY REVIEW OF SYSTEMS General- no fevers, chills HEENT- no changes in vision, hearing, congestion CV- no chest pain or palpitations Resp- no shortness of breath, no cough GI- no abdominal pain, nausea, vomiting, diarrhea, constipation - no pain with urination, urinary frequency or urgency MSK- no changes in strength, extremity swelling Integument- no new rashes, lumps, or bumps Heme- no easy bruising Endo- no significant changes in weight, no heat or cold intolerance Neuro- No changes in memory or balance Psych- No changes in mood Vitals Temp: 36.9 ??C (98.4 ??F) Pulse: 88 Resp: 16 BP: (!) 172/83 SpO2: 96 % Physical Exam Constitutional: Interventions: Cervical collar in place. HENT: Head: Normocephalic and atraumatic. Mouth/Throat: Pharynx: Oropharynx is clear. Eyes: Extraocular Movements: Extraocular movements intact. Pupils: Pupils are equal, round, and reactive to light. Cardiovascular: Rate and Rhythm: Normal rate and regular rhythm. Pulses: Radial pulses are 2+ on the right side and 2+ on the left side. Dorsalis pedis pulses are 2+ on the right side and 2+ on the left side. Arteriovenous access: left arteriovenous access is present. Pulmonary: Effort: Pulmonary effort is normal. Breath sounds: Normal breath sounds. Chest: Chest wall: No tenderness. Abdominal: General: There is no distension. Palpations: Abdomen is soft. Tenderness: There is no abdominal tenderness. There is no guarding or rebound. Comments: Well healed incision from prior transplant. Musculoskeletal: Normal range of motion. General: No tenderness or deformity. Neurological: General: No focal deficit present. Mental Status: She is alert and oriented to person, place, and time. GCS: GCS eye subscore is 4. GCS verbal subscore is 5. GCS motor subscore is 6. Sensory: Sensation is intact. Motor: Motor function is intact. Data Review: Lab Results Component Value Date WBC 8.5 03/19/2020 HGB 13.6 03/19/2020 HCT 40.3 03/19/2020 MCV 98.1 (H) 03/19/2020 LABPLAT 121 (L) 03/19/2020 Lab Results Component Value Date GLUCOSE 129 03/19/2020 CALCIUM 10.2 03/19/2020 SODIUM 139 03/19/2020 POTASSIUM 5.0 (H) 03/19/2020 CO2 25 03/19/2020 CHLORIDE 105 03/19/2020 BUNSER 27 (H) 03/19/2020 CREATININE 0.84 03/19/2020 Recent Labs Lab Units 03/19/20 2044 APTT sec 26 PROTIME (PT) sec 11.9 INR 1.1 Recent Results (from the past 36 hour(s)) CBC with auto differential Collection Time: 03/19/20 8:44 PM Result Value Ref Range WBC 8.5 3.8 - 9.9 K/cumm Hgb 13.6 11.9 - 15.5 g/dL Hct 40.3 35.6 - 45.5 % Plt 121 (L) 150 - 400 K/cumm MPV 10.9 9.1 - 12.3 fL RBC 4.11 3.90 - 5.20 M/cumm MCV 98.1 (H) 81.3 - 96.4 fL MCH 33.1 27.1 - 33.3 pg MCHC 33.7 32.3 - 35.7 g/dL RDW CV 12.2 11.1 - 14.9 % RDW SD 44.0 35.7 - 48.1 fL NRBC abs 0.00 0.00 - 0.01 K/cumm Comprehensive metabolic panel Collection Time: 03/19/20 8:44 PM Result Value Ref Range Sodium 139 135 - 145 mmol/L Potassium, pl 5.0 (H) 3.3 - 4.9 mmol/L Chloride 105 97 - 110 mmol/L CO2 25 22 - 32 mmol/L Anion gap 9 2 - 15 mmol/L BUN 27 (H) 8 - 25 mg/dL Creatinine 0.84 0.60 - 1.10 mg/dL Glucose 129 70 - 199 mg/dL Calcium 10.2 8.5 - 10.3 mg/dL Bilirubin, total 0.8 0.1 - 1.2 mg/dL Protein, pl 7.3 6.5 - 8.5 g/dL Albumin 4.1 3.5 - 5.0 g/dL Alk phos 115 40 - 130 Units/L ALT 17 7 - 45 Units/L AST 24 10 - 45 Units/L Protime-INR Collection Time: 03/19/20 8:44 PM Result Value Ref Range PT 11.9 8.6 - 13.0 sec INR 1.1 0.8 - 1.2 aPTT Collection Time: 03/19/20 8:44 PM Result Value Ref Range aPTT 26 25 - 37 sec Type and screen Collection Time: 03/19/20 8:44 PM Result Value Ref Range Emerita, indirect Negative ABO Rh B Positive Differential, auto Collection Time: 03/19/20 8:44 PM Result Value Ref Range Neutrophil abs 7.5 (H) 1.7 - 6.5 K/cumm Imm gran abs 0.1 0.0 - 0.1 K/cumm Lymphocyte abs 0.4 (L) 0.8 - 3.3 K/cumm Monocyte abs 0.5 0.2 - 0.8 K/cumm Eosinophil abs 0.0 0.0 - 0.5 K/cumm Basophil abs 0.0 0.0 - 0.1 K/cumm Neutrophil pct 88.6 % Imm gran pct 0.6 % Lymphocyte pct 4.7 % Monocyte pct 5.9 % Eosinophil pct 0.0 % Basophil pct 0.2 % Imaging: No results found. Cervical Spine: C2 dens fx per OSH report Assessment: 85yoF with [facility] kidney transplant 2012, CAD, HTN, hypothyroidism presenting from OSH with C2 fracture following fall today. She is neuro intact. Head CT scan reportedly without acute abnormality. Low concern for other injury based on exam. Patient ambulated after event. IP CONSULT TO ORTHO SPINE IP CONSULT TO GENERAL SURGERY Plan: -upload OSH scans and nominate for radiology read -ortho spine consult -CXR -CTA head and neck -will plan to admit to GTS, dispo pending spine recs -will consult renal transplant in the am Jose So Trauma Surgery March 19, 2020 10:57 PM Discussed with attending: Sherri Azar at 2300 (time). Cosigned by Deacon Shashi Alegre MD at 03/21/2020 5:19 PM CDT Associated attestation - Deacon Shashi Alegre MD - 03/21/2020 5:19 PM CDT I have seen and examined the patient on 03/19/2020. I agree with the findings and plan of care as documented in the resident's/fellow's note. * Nilam Lange MD - 03/19/2020 10:43 PM CDTAssociated Order(s): IP CONSULT TO ORTHO SPINE Orthopaedic Spine Surgery Consult March 19, 2020 10:43 PM Reason for Consult: C2 comminuted VB fx with extension to b/l lat. masses and right foramen,,C4/5 anterolisthesis, Requesting Provider: ED Consulting Provider: Resident - Anisa/Attending - [place] Patient (home) Insurance: Payor: MEDICARE / Plan: MEDICARE PART B / Product Type: *No Product type* / Note: This is the primary coverage, but no account was found for this location or the patient's primary location. HPI: Juliet Dunlap is a 85 y.o. female s/p MSLF p/w CC2 comminuted VB fx with extension to b/l lat. masses and right foramen,,C4/5 anterolisthesis, Fell as she was getting in the bed. OI: none. Exam: - n/t/loss of BB fxn. Exam: 5/5 and SILT throughout. 2+ reflexes throughout. - clonus, - Babinski, - Shine's. +rectal tone. PMH: ESRD s/p kidney transplant, HTN, HLD, CAD, HBV, GERD, hiatal hernia, Hypothyroid. SH: denies tobacco, ETOH, and drugs Pain is located around site of injury, is sharp and doesn't radiate. Pain is mild in severity. Painis made worse with movement, and better with rest. Past Medical History: Diagnosis Date ??? Abdominal pain ??? Bruising ??? CAD (coronary artery disease) ??? Fatigue ??? Frequent urination ??? GERD (gastroesophageal reflux disease) ??? Hiatal hernia schatzki ring ??? HL (hearing loss) ??? Hyperlipidemia ??? Hypertension ??? Hypothyroidism ??? Migraines ??? Peritoneal dialysis status ([facility]) From 2009 to 2012 prior to transplant [...] 1943 ??? VEIN LIGATION AND STRIPPING 1992 Prior to Admission medications Medication Sig Start Date End Date Taking? Authorizing Provider aspirin 81 mg tablet Take 81 mg by mouth every morning. Rahul Contreras MD biotin 1 mg tablet Take 2 tablets by mouth daily before breakfast Rahul Contreras MD cholecalciferol (VITAMIN D-3) 2,000 unit tablet Take 1 tablet (2,000 Units total) by mouth daily. Patient taking differently: Take 2,000 Units by mouth property management intern before breakfast. 02/18/18 03/29/19 Layla Mares MD cyanocobalamin (Vitamin B-12) 100 mcg tablet Take 100 mcg by mouth daily Rahul Contreras MD levothyroxine (SYNTHROID) 100 mcg tablet TAKE 1 TABLET(100 MCG) BY MOUTH MACHINE OR MACHINERY MECHANIC AND BEFORE BREAKFAST 07/11/19 07/10/20 Jessie Man MD lisinopriL (PRINIVIL,ZESTRIL) 10 mg tablet Take 1 tablet (10 mg total) by mouth property management intern before breakfast 01/09/20 01/08/21 Peter Babb MD metoprolol (LOPRESSOR) 50 mg tablet Take 1 tablet (50 mg total) by mouth 2 (two) times a day Peter Babb MD metoprolol tartrate (LOPRESSOR) 25 mg immediate release tablet Take 1 tablet (25 mg total) by mouth2 (two) times a day 12/26/19 12/25/20 Ritchie Rodriguez MD pravastatin (PRAVACHOL) 20 mg tablet Take 20 mg by mouth nightly. 12/16/16 Rahul Contreras MD predniSONE (DELTASONE) 5 mg tablet Take 1 tablet (5 mg) by mouth property management intern before breakfast 06/16/19 06/15/20 Jessie Man MD rivaroxaban (XARELTO) 10 mg tablet Take 10 mg by mouth daily Historical Provider, sodium bicarbonate 325 mg tablet Take 2 tablets (650 mg total) by mouth daily 10/04/19 10/03/20 Trung Rodriguez MD tacrolimus (PROGRAF) 1 mg capsule Take 1 capsule (1 mg total) by mouth 2 (two) times a day 01/05/19 03/29/19 Peter Babb MD tobramycin (TOBREX) 0.3 % ophthalmic solution Instill 1 drop into surgical eye three times daily starting two days before surgery Patient not taking: Reported on 09/15/2019 03/29/19 Butch Maria MD trimethoprim (TRIMPEX) 100 mg tablet Take 100 mg by mouth nightly Historical Provider, Allergies Allergen Reactions ??? Nitrofurantoin Rash ??? Tetracycline Rash ??? Tetracyclines Rash ??? Levofloxacin Unknown ? ? Codeine Dizziness, Nausea & Vomiting and Nausea Only ??? Keflex [Cephalexin] Other (See comments) Trouble with bladder Social History Tobacco Use ??? Smoking status: Never Smoker ??? Smokeless tobacco: Never Used Substance Use Topics ??? Alcohol use: No Family History Problem Relation Age of Onset ??? Cancer Other Family history of Cancer; ??? Kidney disease Other Family history of Renal disease; ??? Stroke Other Family history of Stroke; ??? Pancreatic cancer Mother ??? Heart disease Father Review of Systems: Constitutional: Negative for chills and fever. HENT: Negative for acute hearing loss Eyes: Negative for pain and visual disturbance. Respiratory: Negative for cough and shortness of breath. Cardiovascular: Negative for chest pain and palpitations. Gastrointestinal: Negative for abdominal pain and vomiting. Genitourinary: Negative for dysuria and hematuria. Musculoskeletal: pain in injured extremity Skin: Negative for acute rash. Neurological: Negative for seizures and syncope. Review of systems per HPI and otherwise all other systems are negative. Objective Vitals: 24hr Min/Max: Temp Min: 36.9 ??C (98.4 ??F) Max: 36.9 ??C (98.4 ??F) Pulse Min: 88 Max: 89 BP Min: 172/83 Max: 180/86 Resp Min: 16 Max: 17 SpO2 Min: 95 % Max: 96 % Most Recent: Vitals: 03/19/20 2028 03/19/20 2100 03/19/20 2200 BP: (!) 179/86 (!) 180/86 (!) 172/83 BP Location: Right arm Patient Position: Lying Pulse: 89 89 88 Resp: 16 17 16 Temp: 36.9 ??C (98.4 ??F) TempSrc: Oral SpO2: 95% 95% 96% Weight: 60 kg (132 lb 4.4 oz) Height: 157.5 cm (5' 2 ) Physical Exam: Gen: NAD Neuro: A&Ox3 Resp: NLB CV: Regular rhythm Spine: General: C-spine tenderness. No skin defects. ROM deferred until further workup. No visible deformity on inspection. No appreciable muscular atrophy. Nontender, and painless ROM shoulders, elbow, wrist, digits, hips, knees, ankles. Normal muscular tone. Motor: Muscle Strength Left Right Deltoid 5/5 5/5 Biceps 5/5 5/5 Triceps 5/5 5/5 Wrist extension 5/5 5/5 Wrist flexion 5/5 5/5 Dial Maker 5/5 5/5 Interosseous of hand 5/5 5/5 Iliopsoas 5/5 5/5 Quadriceps 5/5 5/5 Tibialis anterior 5/5 5/5 Extensor hallicus longus 5/5 5/5 Gastrocsoleus complex 5/5 5/5 Sensation Left upper extremity: sensation intact to light touch in C5 to T1 dermatomes. Right upper extremity: sensation intact to light touch in C5 to T1 dermatomes. Left lower extremity: sensation intact to light touch in L2 to S1 dermatomes. Right lower extremity: sensation intact to light touch in L2 to S1 dermatomes. SILT skin over nipple line (T4), Xiphoid process (T7), Umbilicus (T10), pubis (T12) Reflexes: Left Upper Extremity: 2+ biceps (C5), 2+ brachioradialis (C6), 2+ triceps (C7). Right Upper Extremity: 2+ biceps (C5), 2+ brachioradialis (C6), 2+ triceps (C7). Left Lower Extremity: 2+patellar tendon (L4), achilles (S1) Right Lower Extremity: 2+patellar tendon (L4), achilles (S1) Rectal exam: Deferred Gait: Deferred Long-tract signs: Negative Shine's No clonus Downgoing Babinski Vascular: Bilateral Upper Extremity: 2+ radial pulse, fingers WWP Bilateral Lower Extremity 2+ pedal pulses, toes WWP with BCR Lab/Radiology/Diagnostic Review: Laboratory review: Recent Results (from the past 24 hour(s)) CBC with auto differential Collection Time: 03/19/20 8:44 PM Result Value Ref Range WBC 8.5 3.8 - 9.9 K/cumm Hgb 13.6 11.9 - 15.5 g/dL Hct 40.3 35.6 - 45.5 % Plt 121 (L) 150 - 400 K/cumm MPV 10.9 9.1 - 12.3 fL RBC 4.11 3.90 - 5.20 M/cumm MCV 98.1 (H) 81.3 - 96.4 fL MCH 33.1 27.1 - 33.3 pg MCHC 33.7 32.3 - 35.7 g/dL RDW CV 12.2 11.1 - 14.9 % RDW SD 44.0 35.7 - 48.1 fL NRBC abs 0.00 0.00 - 0.01 K/cumm Comprehensive metabolic panel Collection Time: 03/19/20 8:44 PM Result Value Ref Range Sodium 139 135 - 145 mmol/L Potassium, pl 5.0 (H) 3.3 - 4.9 mmol/L Chloride 105 97 - 110 mmol/L CO2 25 22 - 32 mmol/L Anion gap 9 2 - 15 mmol/L BUN 27 (H) 8 - 25 mg/dL Creatinine 0.84 0.60 - 1.10 mg/dL Glucose 129 70 - 199 mg/dL Calcium 10.2 8.5 - 10.3 mg/dL Bilirubin, total 0.8 0.1 - 1.2 mg/dL Protein, pl 7.3 6.5 - 8.5 g/dL Albumin 4.1 3.5 - 5.0 g/dL Alk phos 115 40 - 130 Units/L ALT 17 7 - 45 Units/L AST 24 10 - 45 Units/L Protime-INR Collection Time: 03/19/20 8:44 PM Result Value Ref Range PT 11.9 8.6 - 13.0 sec INR 1.1 0.8 - 1.2 aPTT Collection Time: 03/19/20 8:44 PM Result Value Ref Range aPTT 26 25 - 37 sec Type and screen Collection Time: 03/19/20 8:44 PM Result Value Ref Range Emerita, indirect Negative ABO Rh B Positive Differential, auto Collection Time: 03/19/20 8:44 PM Result Value Ref Range Neutrophil abs 7.5 (H) 1.7 - 6.5 K/cumm Imm gran abs 0.1 0.0 - 0.1 K/cumm Lymphocyte abs 0.4 (L) 0.8 - 3.3 K/cumm Monocyte abs 0.5 0.2 - 0.8 K/cumm Eosinophil abs 0.0 0.0 - 0.5 K/cumm Basophil abs 0.0 0.0 - 0.1 K/cumm Neutrophil pct 88.6 % Imm gran pct 0.6 % Lymphocyte pct 4.7 % Monocyte pct 5.9 % Eosinophil pct 0.0 % Basophil pct 0.2 % Imaging review: No results found. Radiology Review: I have reviewed the imaging with the following findings: C2 sup articular facet fx, T3 dens fx, C2 body fx Assessment/Plan Juliet Dunlap is a 85 y.o. female who presents with C2 sup articular facet fx, T3 dens fx,C2 body fx. PROCEDURE: N/A PLAN: 1. Likely d/c from ED. Please don't d/c before speaking with ortho- Will need [place] J collar befored/c and XR in collar 2. Plan for nonoperative management 3. C-spine precautions. C-collar at all times. HOB<30. Log roll. 4. q4h neuro checks 5. Activity as tolerated, PT/OT/OOB 6. NPO 7. Pain control 8. Abx: None 9. DVT ppx: SCDs. Please hold chemical DVT ppx. 10. Please call ortho spine if patient develops any concerning changes to their neurologic exam such as new weakness or loss of bowel/bladder function. Follow up at [facility]. Please call [phone] to make an appointment in 1 weeks. Nilam Lange M.D. Department of Orthopaedic Surgery, PGY-2 [facility] in [place] If you know the resident's name on the appropriate orthopaedic surgery team, please use [email or web address] to page resident directly. If questions arise and the appropriate resident can't be reached or you are calling overnight, please contact [phone] ([place] 6 PM - 6:30 AM - Floor Resident) or [phone] (24 hours/day - Consult Resident) Appropriate imaging and evaluation initiated within 30 minutes of consult being called. Cosigned by Js Barahona MD at 03/20/2020 11:20 AM CDT documented in this encounter Nursing Notes * Monica Camarillo RN - 03/23/2020 5:13 AM CDT Spoke with [facility] in regards to patient's BP of 189/96 and continued complaint of discomfort despite repositioning and pain medications. New orders to follow. Will give patient scheduled hypertensionmedication this am and follow-up with additional pain medication to be added to manage patient's pain level. * Asha Mcmullen RN - 03/22/2020 12:49 PM CDT Pt Bp was 174/93. Notified care team. Pt is also complaining of difficulty breathing. Care team wasnotified about this and said they would come to the bedside to see her. * Monica Camarillo RN - 03/20/2020 10:35 PM CDT Spoke with [facility]. Okay to give night dose of Tacromilus and check level in the am. * Monika Alfaro RN - 03/20/2020 5:15 PM CDT [facility] md notified of patient wish to be DNI and increased bp with no prn bp orders. Md stated they were in report and he would look over it and put in orders documented in this encounter ED Notes * Jessi Aldana MD - 03/19/2020 8:23 PM CDT HPI Chief Complaint Patient presents with ??? Fall Transfer - Unstable C2 Fracture Juliet Dunlap is a 85 y.o. female with a history of ESRD s/p kidney transplant presenting as a transfer from [facility] with an unstable C2 fracture. She does not recall the entire event but was getting out of bed when she fell and hit her head on the dresser. She does not know if she lost consciousness. Since the event she has been experiencing severe neck pain but denies numbness or weakness in her extremities. ST head and c-spine showed a C2 fracture, no intracranial abnormalities, and she was sent here for further management. Patient History Patient Active Problem List Diagnosis Date Noted ??? Pseudophakia of both eyes 04/11/2019 ??? 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 History of kidney transplant 05/17/2013 Class: Chronic Past Medical History: Diagnosis Date ??? Abdominal pain ??? Bruising ??? CAD (coronary artery disease) ??? Fatigue ??? Frequent urination ??? GERD (gastroesophageal reflux disease) ??? Hiatal hernia schatzki ring ??? HL (hearing loss) ??? Hyperlipidemia ??? Hypertension ??? Hypothyroidism ??? Migraines ??? Peritoneal dialysis status ([facility]) From 2009 to 2012 prior to transplant [...] 194 ??? VEIN LIGATION AND STRIPPING 1992 Family History Problem Relation Age of Onset ??? Cancer Other Family history of Cancer; ??? Kidney disease Other Family history of Renal disease; ??? Stroke Other Family history of Stroke; ??? Pancreatic cancer Mother ??? Heart disease Father Social History Tobacco Use ??? Smoking status: Never Smoker ??? Smokeless tobacco: Never Used Substance Use Topics ??? Alcohol use: No ??? Drug use: No Social History Social History Narrative ??? Not on file Review of Systems Review of Systems Constitutional: Negative for fever. HENT: Negative for facial swelling. Eyes: Negative for visual disturbance. Respiratory: Negative for shortness of breath. Cardiovascular: Negative for chest pain. Gastrointestinal: Negative for abdominal pain. Genitourinary: Negative for pelvic pain. Musculoskeletal: Positive for neck pain. Negative for back pain. Skin: Negative for wound. Neurological: Negative for light-headedness and headaches. Psychiatric/Behavioral: Negative for suicidal ideas. Physical Exam ED Triage Vitals Temp Pulse Resp BP SpO2 -- -- -- -- -- Temp src Heart Rate Source Patient Position BP Location FiO2 (%) -- -- -- -- -- Physical Exam Vitals signs reviewed. HENT: Head: Normocephalic and atraumatic. Right Ear: Tympanic membrane normal. Left Ear: Tympanic membrane normal. Nose: Nose normal. Mouth/Throat: Pharynx: Oropharynx is clear. Eyes: Conjunctiva/sclera: Conjunctivae normal. Pupils: Pupils are equal, round, and reactive to light. Neck: Comments: Immobilized in c-collar Cardiovascular: Rate and Rhythm: Normal rate and regular rhythm. Pulses: Normal pulses. Heart sounds: No murmur. Pulmonary: Effort: Pulmonary effort is normal. No respiratory distress. Breath sounds: Normal breath sounds. Chest: Chest wall: No tenderness. Abdominal: General: Abdomen is flat. There is no distension. Palpations: Abdomen is soft. Tenderness: There is no abdominal tenderness. Musculoskeletal: General: No tenderness or deformity. Skin: General: Skin is warm and dry. Neurological: General: No focal deficit present. Mental Status: She is alert and oriented to person, place, and time. Comments: 5/5 strength in the bilateral upper and lower extremities, sensation intact, patient denies paresthesias. [facility] Medical Decision Making Differential Diagnosis or Management Options: This is a 85 y.o. female with a history of ESRD s/p renal transplant presenting to the emergency department with C2 fracture. On exam patient is alert and well appearing, vital signs notable for hypertension, neuro intact, neck in c-collar. History and exam most concerning for c2 fracture without nerve injury. CT head reportedly negative for intracranial injury. Plan for spine consult, GTS eval, likely admission. Attending Summary of Care I have seen and examined the patient on 03/19/2020 . I agree with the findings and plan of care as documented in the resident's note. 85y F hx ESRD s/p renal transplant on chronic immunosuppression, s/p ground level fall at home resulting in neck injury. Pt unable to recount specifics of fall. Seen at OSH ED w/ unstable C2 fracture; transferred to [facility] for spine eval. Exam - heart sounds normal, lungs CTAB, abdomen soft and nontender, moving all 4 extremities w/ intact sensation throughout. C-collar in place. Complaining of neckpain. DDX: C2 unstable fracture, fall. Check labs, upload OSH imaging, consult ortho/spine, anticipate admission. ED Course as of Mar 19 2344 Time: 03/19 2028 Comment: Teaching Resident Note: 85 yo F PMH renal failure d/t vasculitis s/p 2013 kidney transplant (due for tacro) who p/f OSH with C2 fracture after falling earlier today. Getting out of bed and fell, striking head on dresser. She cannot remember where she hit her head or how the fall happened. No other injuries. Per report, HCT negative but has a C2 fx on OSH CT. She here complains of posterior head and neck pain but no weakness, numbness, or other pain or neuro Sx. Ddx: known C2 fx, but per OSH CT no ICH or other C spine fx. Plan: home meds, upload OSH images, pain control, NPO, spine consult, likely admit to [facility] By: Bettye Mcelroy MD Time: 03/19 2103 Comment: Awaiting call back from spine. By: Jessi Aldana MD Time: 03/19 2129 Comment: Awaiting spine recs. at bedside By: Bettye Mcelroy MD Time: 03/19 2226 Comment: Spine wants MRI C spine and Xrays of T and L spine which will be ordered By: Bettye Mcelroy MD Time: 03/19 2233 Comment: [facility] will come see the patient. By: Jessi Aldana MD No diagnosis found. Jessi Aldana MD Resident 03/19/20 4260 Cosigned by Giselle Wiley MD at 03/20/2020 2:50 AM CDT * Adolfo Shi RN - 03/19/2020 8:20 PM CDT EMS states Patient is coming from [facility], after she had a fall this morning. She fell out of bed and hit her head on the nightstand. She went to [place] c/o neck pain and was diagnosed with an unstable C2 fracture. Pt denies numbness/weakness, TURNER QUINTERO en route * Tisha Vitale RN - 03/19/2020 8:19 PM CDT Bed: [facility] Expected date: 03/19/20 Expected time: 4:57 PM Means of arrival: Ambulance Comments: Tisha Vitale RN 03/19/20 2019 documented in this encounter Miscellaneous Notes * Plan of Care - Aurelia Whitfield RN - 03/28/2020 11:38 AM CDT Problem: Activity: Goal: Mobility will improve Outcome: Progressing Problem: Lack of Knowledge: Goal: Understanding of ways to prevent future skin breakdown will improve Outcome: Progressing Goal: Ability to identify appropriate dietary choices will improve Outcome: Progressing Goals: Clinical Goals for the Shift: pain control * Plan of Care - Tiffany Burgos RN - 03/28/2020 1:05 AM CDT Problem: Activity: Goal: Mobility will improve Outcome: Progressing Goals: Clinical Goals for the Shift: Alutiiq J collar remains on at all times, VSS, Neurovascular checks WDL, Pain control, Free from falls, OOB with assistance 1+x/day Summary:Continue to monitor * Plan of Care - Serenity Martin, PT - 03/27/2020 2:42 PM CDT Problem: Mobility Goal: LTG - Patient will ambulate community distance Description: Of 1000 feet independently Outcome: Progressing Note: Today (03/27/20) patient ambulated 25ft x4 (with stand rest breaks between bouts) with WW andrequired min assist. Goal: STG - Patient will ambulate Description: 100 feet with supervision with wheeled walker Outcome: Progressing Note: Today (03/27/20) patient ambulated 25ft x4 (with stand rest breaks between bouts) with WW andrequired min assist. Problem: Transfers Goal: STG - Patient to transfer to and from sit to supine Description: With supervision Outcome: Progressing Note: Today (03/27/20) patient transferred with the HOB flat and required min assist and verbal cues for cervical precautions. Goal: STG - Patient will transfer sit to and from stand Description: With supervision and appropriate assistive device Outcome: Progressing Note: Today (03/27/20) patient transferred with a WW and required contact guard assist and verbal cues for safe hand placement. Problem: Precautions Goal: STG - Patient will demonstrate precautions consistently during mobility and ambulation. Outcome: Progressing Note: Today (03/27/20) PT verbally reviewed cervical precautions with patient prior to mobility. Patient required mod verbal cues to recall precautions. During mobility, patient required mod verbal cues to maintain precautions. Serenity Martin, PT 03/27/20 * [facility]IN Note - Lilly Landeros, PURCHASING MANAGER/SALES - 03/27/2020 1:28 PM CDT Patient Information: OT Eval and Treat Last 72 Hours OT Evaluation Row Name 03/23/20 1605 03/22/20 1510 03/21/20 0928 Chart Reviewed -- -- Yes -NB Session Type Treatment -NB -- Evaluation -NB OT Received On 03/23/20 -NB -- 03/21/20 -NB Safe Environment Arm Band Checked;Call Light within Reach;Notified RN;Session Completed Bedside;Patient found in Supine left supine, call light in reach -NB -- Arm Band Checked;Call Light within Reach;Notified RN;Session Completed Bedside;Patient found in Supine Left supine, call light in reach -NB Subjective Agreeable to Therapy -NB -- Agreeable to Therapy -NB Subjective Comment -- -- I just want some rest -NB OT Missed Visit Reason -- Asleep unable to maintain level of arousal for therapy x2 -NB -- Family/Caregiver Present Yes -NB -- No -NB Occupational Therapy-Patient Goal -- -- None stated; pt agreeable to OT POC -NB Precautions -- -- Fall risk;Cervical spine -NB Braces/Orthoses -- -- Cervical collar -NB Precaution Handout Issued -- -- Yes -NB Precaution Comments -- -- Verbally reviewed cervical spine precautions with pt. Pt verbalized and demonstrated understanding. -NB Type of Home -- -- House -NB Home Layout -- -- Two level;Bed/bath upstairs 12-15 steps to bed/bath - Home Access -- -- Stairs to enter without rails - Entrance Stairs-Rails -- -- None - Entrance Stairs-Number of Steps -- -- 2 - Bathroom Shower/Tub -- -- Tub/shower unit - Bathroom Toilet -- -- Standard - Bathroom Accessibility -- -- Accessible - Home Mobility Equipment -- -- None - Additional Comments -- -- Pt reports no AD/DME use prior to admission. 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 - Prior Function Comments -- -- Pt reports no concerns regarding self-care prior to admission. - ADLS (WDL) -- -- X - Grooming: Where assessed -- -- Edge of bed - Grooming: Level of assistance -- -- Moderate Assist set up task, total balance; unable to perform in standing - Grooming: Assistance with -- -- Increased time to complete;Safety balance; set up of ADL items - LE Dressing: Where assessed -- -- Edge of bed - LE Dressing: Level of assistance -- -- Maximum Assist Max A task, supervision sitting balance; declined to stand - LE Dressing: Assistance with -- -- Verbal cueing;Supervision/safety;Increased time to complete;Don/doff R sock;Don/doff L sock;Thread RLE into pants;Thread LLE into pants;Thread RLE into underwear;Thread LLE into underwear;Pull up over hips limited 2/2 pain this date - Toileting: Where assessed -- -- Bedside Commode simulated EOB - Toileting: Level of assistance -- -- Moderate Assist Mod A task, supervision sitting balance; declined to stand - Toileting: Assistance with -- -- Clothing management up;Clothing management down;Posterior -NB Toilet Transfers Comments -- -- Pt declined 2/2 pain - Pain Assessment -- -- 0-10 - Pain Score -- -- 5 - Moderate pain - Pain Type -- -- Acute pain - Pain Location -- -- Neck - Pain Orientation -- -- Right - Pain Interventions -- -- Repositioned - Current Vision -- -- Wears glasses all the time - Overall Cognitive Status -- -- [facility] - Arousal/Alertness -- -- Alert;Appropriate responses to stimuli - Attention Span -- -- Appears intact - Memory -- -- Appears intact - Current communication -- -- Appears Intact - Orientation -- -- Oriented X4 (person, place, time, situation) - Following Commands -- -- Follows all commands and directions without difficulty - Safety Judgment -- -- Good awareness of safety precautions - Awareness of Errors -- -- Good awareness of errors made - Insight -- -- Fully aware of deficits - Problem Solving -- -- Able to problem solve independently - Compliance/Behavior -- -- Easy to engage - Perseveration -- -- Not present - Numbness/Tingling -- -- Yes Pt reports numbness on R posterior neck - Fine Motor -- -- WFL - Serial Opposition -- -- WF - Hand Preference -- -- Right - Coordination -- -- Functional - Gross Grasp -- -- Functional - Balance -- -- Yes - Static Sitting-Balance Support -- -- Feet supported;Bilateral upper extremity supported - Static Sitting-Sitting Surface -- -- Bed - Static Sitting-Level of Assistance -- -- Close supervision - Static Sitting-Comment/# of Minutes -- -- supervision for safety - Dynamic Sitting-Balance Support -- -- No upper extremity supported;Feet supported - Dynamic Sitting-Balance -- -- Forward lean;Reaching for objects;Reaching across midline LE dressingEOB - Dynamic Sitting-Sitting Surface -- -- Bed - Dynamic Sitting-Level of Assistance -- -- Close supervision - Dynamic Sitting-Comments -- -- supervision for safety - Bed Mobility -- -- Yes - Bed Mobility From 1 -- -- Supine - Bed Mobility Type 1 -- -- To and from - Bed Mobility to 1 -- -- Edge of bed - Level of Assistance 1 -- -- Minimum Assist - Bed Mobility Comments 1 -- -- Min A for assist with trunk elevation using draw sheet to sit EOB. Assist with maneuvering LEs into bed when returning to supine. HOB elevated. Pt states she has a recliner to sleep in upon D/C. - Transfer -- -- No Pt declined 2/2 pain - RUE Assessment -- -- WF - LUE Assessment -- -- WF - Comments -- -- Pt provided education regarding c-spine precautions. Pt verbalized and demonstrated understanding. Functional performance limited this date 2/2 pain. Pt required assist for all ADLs and functional mobility this date. Pt declined transfers/mobility 2/2 pain. Pt would benefit from continued skilled OT to address functional deficits during acute care stay. Discussed D/C recs with pt; pt agreeable to OT POC. - Problem List -- -- Decreased endurance;Decreased balance;Decreased functional mobility;Decreased ADL independence;Decreased IADL independence;Pain - Barriers to Discharge -- -- Decreased caregiver support;Current Mobility Status - Barrier Comments -- -- Fall risk - Plan -- -- Plan of care initiated;If this is the last note, consider this the discharge summary - OT Recommendation -- -- Inpatient Rehab Facility - OT Recommendation/Plan Comments -- -- Pending further mobility assessment. - OT Frequency -- -- 5-7x/wk - Treatment/Interventions -- -- ADL/IADL retraining;Balance Training;Bed mobility;Compensatory technique education;Endurance training;Equipment eval/education;Functional activity;Functional transfer training;Functional mobility training;Strengthening;Therapeutic activity;Therapeutic exercise;Transfertraining - OT - Next Appointment -- -- 03/22/20 - OT - OK to Discharge -- -- No -NB OT Evaluation Complete -- -- Yes -NB User Polo (r) = Recorded By, (t) = Taken By, (c) = Cosigned By Initials Name Effective Dates NB Vanesas Matos, OT 06/06/19 - OT Treatment Row Name 03/27/20 1009 03/24/20 1001 03/23/20 1605 Session Type Treatment -BB Treatment -BB -- OT Received On 03/27/20 -BB 03/24/20 -BB -- Safe Environment Arm Band Checked;Bed Alarm placed and activated;Call Light within Reach;Notified RN;Patient found in Supine Pt left in supine with call light in reach -BB Arm Band Checked;Call Lightwithin Reach;Notified RN;Patient found in Supine Pt left in supine with call light in reach -BB -- Subjective Agreeable to Therapy -BB Agreeable to Therapy -BB -- Family/Caregiver Present No -BB No -BB -- Precautions Fall risk;Cervical spine -BB Fall risk;Cervical spine -BB Fall risk;Cervical spine -NB Braces/Orthoses Cervical collar Alutiiq J -BB Cervical collar Alutiiq J -BB Cervical collar Alutiiq J -NB Precaution Handout Issued No -BB No -BB -- Precaution Comments OT reviewed precautions prior to functional mobility and ADLs -BB OT reviewed cervical spine precautions prior to functional mobility and ADLS -BB Verbally reviewed C-spine precautions prior to mobility -NB Pain Assessment -- 0-10 -BB 0-10 -NB Pain Score -- 6 -BB 7 -NB Pain Type -- -- Acute pain -NB Pain Location -- Neck -BB Neck -NB Pain Orientation -- -- Right -NB Pain Interventions -- RN Notified DEREK Mathis -FREDI Repositioned;RN Notified Melissa notified -NB Balance Yes -BB Yes -BB Yes -NB Static Sitting-Balance Support Feet supported;No upper extremity supported -BB Feet supported;Bilateral upper extremity supported -BB Bilateral upper extremity supported;Feet supported -NB Static Sitting-Sitting Surface Bed -BB Bed -BB Bed -NB Static Sitting-Level of Assistance Close supervision -BB Close supervision -BB Close supervision -NB Static Sitting-Comment/# of Minutes safety -BB safety, EOB approx 3 minutes -BB supervision for safety -NB Dynamic Sitting-Balance Support Feet supported;No upper extremity supported -BB -- No upper extremity supported;Feet supported -NB Dynamic Sitting-Balance Lateral lean;Forward lean -BB -- Forward lean;Reaching for objects;Reachingacross midline -NB Dynamic Sitting-Sitting Surface -- commode -BB -- Bed -NB Dynamic Sitting-Level of Assistance Close supervision -BB -- Close supervision -NB Dynamic Sitting-Comments safety during toileting -BB -- supervision for safety -NB Static Standing-Balance Support Bilateral upper extremity supported on WW -BB -- Bilateral upper extremity supported -NB Static Standing-Standing Surface Floor -BB -- Floor -NB Static Standing-Level of Assistance Contact guard -BB -- Minimum assistance -NB Static Standing-Comment/# of Minutes CGA to ensure safety and balance -BB -- Min A for steadying assist -NB Dynamic Standing-Balance Support No upper extremity supported -BB -- Bilateral upper extremity supported on therapist -NB Dynamic Standing-Balance Forward lean;Reaching for objects -BB -- Forward lean;Reaching for objects;Reaching across midline during transfer -NB Dynamic Standing-Standing Surface Floor -BB -- Floor -NB Dynamic Standing-Level of Assistance Minimum assistance -BB -- Minimum assistance -NB Dynamic Standing-Comments min A for safety during grooming -BB -- Min A for steadying assist -NB ADLS (WDL) X -BB -- pt refused ADLs this date -BB X -NB Grooming: Where assessed Standing at sink -BB -- Edge of bed -NB Grooming: Level of assistance Minimum Assist min A balance -BB -- Moderate Assist set up task, total balance -NB Grooming: Assistance with Safety;Increased time to complete -BB -- Increased time to complete;Safety balance; set up of ADL items; unable to perform in standing -NB Toileting: Where assessed Toilet -BB -- Bedside Commode -NB Toileting: Level of assistance Minimum Assist min task, min balance -BB -- Moderate Assist Mod A task, Min A balance -NB Toileting: Assistance with Clothing management up;Clothing management down -BB -- Clothing management up;Clothing management down;Posterior balance -NB Bed Mobility Yes -BB Yes -BB Yes -NB Bed Mobility From 1 Supine -BB Supine -BB Supine -NB Bed Mobility Type 1 To and from -BB To and from -BB To and from -NB Bed Mobility to 1 Edge of bed -BB Edge of bed -BB Edge of bed -NB Level of Assistance 1 Minimum Assist -BB Minimum Assist -BB Minimum Assist -NB Bed Mobility Comments 1 min A to elevate trunk, cues for log roll technique -BB min A to maneuver LEs and elevate trunk, cues to maintain precautions -BB Min A for assist with trunk elevation using draw sheet. HOB elevated. Assist for maneuvering LEs into bed when returning to supine. HOB elevated -NB Transfer Yes gait belt used for all OOB mobility -BB No pt refused OOB mobility this date 2/2 pain -BB Yes Gait belt worn for all OOB mobility -NB Transfer From 1 Sit -BB -- Sit -NB Transfer Type 1 To and from -BB -- To and from -NB Transfer to 1 Stand -BB -- Stand -NB Technique 1 Sit to stand;Stand to sit -BB -- Sit to stand;Stand to sit -NB Transfer Device 1 Wheeled walker -BB -- No device -NB Transfer Level of Assistance 1 Contact Guard Assist -BB -- Minimum Assist -NB Trials/Comments 1 CGA to ensure balance and force production, cues for safe hand placement -BB -- Min A for assist force production, standing balance and controlled descent. -NB Trials/Comments 2 functional room mobility performed with WW and min A 2/2 decreased balance -BB ---- Toilet Transfer From Bed -BB -- Bed -NB Toilet Transfer Type To and from -BB -- To and from -NB Toilet Transfer to Standard toilet -BB -- Standard toilet -NB Toilet Transfer Technique Ambulating -BB -- Stand pivot stand step -NB Toilet Transfer: Equipment Wheeled walker -BB -- No device -NB Toilet Transfers Minimal assistance -BB -- Minimal assistance -NB Toilet Transfers Comments min A 2/2 decreased balance -BB -- Min A for force production, standing balance and controlled descent. Min verbal cues for sequencing transfer. -NB Arousal/Alertness Alert;Appropriate responses to stimuli -BB Alert;Appropriate responses to stimuli-BB Lethargic;Delayed responses to stimuli -NB Attention Span Appears intact -BB Attends with cues to redirect -BB Attends with cues to redirect -NB Memory Appears intact -BB -- -- Current communication Appears Intact -BB Appears Intact -BB Appears Intact -NB Orientation Oriented X4 (person, place, time, situation) -BB Oriented X4 (person, place, time, situation) -BB Oriented X4 (person, place, time, situation) -NB Following Commands Follows multistep commands without difficulty -BB Follows all commands and directions without difficulty -BB Follows all commands and directions without difficulty -NB Safety Judgment Good awareness of safety precautions -BB Good awareness of safety precautions -BB Good awareness of safety precautions -NB Awareness of Errors Good awareness of errors made -BB -- Assistance required to identify errors made -NB Insight Fully aware of deficits -BB Fully aware of deficits -BB Fully aware of deficits -NB Problem Solving Assistance required to generate solutions -BB Assistance required to generate solutions -BB Assistance required to identify errors made -NB Compliance/Behavior Easy to engage -BB Easy to engage;Tearful 2/2 pain -BB Easy to engage -NB Perseveration Not present -BB Not present -BB Not present -NB Comments -- Pt limited by pain this date, refused all OOB mobility. OT educated on safety concern of going home without FT assist, and pt reported being open to going to a rehab facility. OT educatedon importance of OOB activity, pt verbalized understanding. -BB Treatment this date included bed mobility in preparation for participation in self-care tasks, grooming, simulated toileting and functional transfers/mobility. Functional performance significantly limited by pain and lethargy. Pt with delayed responses to questions this date. DEREK Torres notified. Discussed ADL independence and mobility concerns with pt's . Maintaining discharge rec of inpatient rehab / decreased caregiver vasques pport and impaired balance/stability with mobility this date. Pt would benefit from continued skilled OT to address functional deficits during acute care stay. -NB Problem List Decreased upper extremity range of motion;Decreased upper extremity strength;Decreasedendurance;Decreased balance;Decreased functional mobility;Decreased ADL independence;Decreased IADLindependence;Pain -BB Decreased upper extremity strength;Decreased endurance;Decreased balance;Decre ased functional mobility;Decreased ADL independence;Decreased IADL independence;Pain -BB Decreased upper extremity strength;Decreased endurance;Decreased balance;Decreased functional mobility;Decreased ADL independence;Decreased IADL independence;Pain -NB Barriers to Discharge Current Mobility Status -BB Current Mobility Status;Decreased caregiver support -BB Current Mobility Status;Decreased caregiver support -NB Barrier Comments -- -- Fall risk -NB Plan Alter current plan;If this is the last note, consider this the discharge summary -BB Continue with current plan;If this is the last note, consider this the discharge summary -BB Continue with current plan;If this is the last note, consider this the discharge summary -NB Plan Comments update discharge rec, decrease frequency -BB -- -- OT Recommendation [facility] Facility -BB Inpatient Rehab Facility -BB Inpatient Rehab Facility -NB OT Recommendation/Plan Comments -- pending more participation -BB pending progress -NB OT Frequency 3-5x/wk -BB 5-7x/wk -BB 5-7x/wk -NB Treatment/Interventions ADL/IADL retraining;Balance Training;Bed mobility;Compensatory technique education;Endurance training;Functional activity;Functional mobility training;Functional transfer train ing;Strengthening;Therapeutic activity;Therapeutic exercise;Transfer training - BB ADL/IADL retraining;Balance Training;Bed mobility;Compensatory technique education;Endurance training;Functional activity;Functional mobility training;Functional transfer training;Strengthening;Therapeutic activity;The rapeutic exercise;Transfer training -BB ADL/IADL retraining;Balance Training;Bed mobility;Compensatory technique education;Endurance training;Equipment eval/education;Functional activity;Functional transfer training;Functional mobility training;Strengthening;Therapeutic activity;Therapeutic exercise ;Transfer training -NB Progress Progressing toward goals -BB Slow progress, decreased activity tolerance -BB Progressing toward goals -NB OT - Next Appointment 03/29/20 -BB 03/26/20 -BB 03/24/20 -NB OT - OK to Discharge No -BB No -BB No -NB User Polo (r) = Recorded By, (t) = Taken By, (c) = Cosigned By Initials Name Effective Dates BB Gardenia Hart, OT 04/28/19 - NB Vanessa Matos, OT 06/06/19 - OT Notes (Notes from 03/25/20 through 03/27/20) No notes of this type exist for this encounter. , OT Eval and Treat Last Documented OT ASSESSMENT FLOWSHEET LAST DOCUMENTED (most recent) OT Evaluation - 03/27/20 1249 Precautions Precautions Fall risk;Cervical spine OT TREATMENT FLOWSHEET LAST DOCUMENTED (most recent) OT Treatment - 03/27/20 1249 Precautions Precautions Fall risk;Cervical spine OT Notes (Notes from 03/25/20 through 03/27/20) No notes of this type exist for this encounter. , PT Eval and Treat Last 72 Hours PT Evaluation Row Name 03/23/20 1611 03/21/20 1500 Chart Reviewed -- Yes -AB (r) VR (c) Session Type -- Evaluation -AB (r) VR (c) Safe Environment -- Arm Band Checked;Call Light within Reach;Notified RN;Session Completed Bedside;Patient found in Supine;Overbed Table within Reach RN Melissa -AB (r) VR (c) Subjective -- Agreeable to Therapy -AB (r) VR (c) Subjective Comment -- Pt willing to see what she could do -AB (r) VR (c) PT Missed Visit Reason Patient declined present and wanted pt. to eat. - LJ -- Family/Caregiver Present -- Yes -AB (r) VR (c) Physical Therapy-Patient Goal -- Get back to playing music -AB (r) VR (c) PT Functional Mobility -- Interventions: pt educated in precautions and mobility within these precautions -AB (r) VR (c) Precautions -- Fall risk;Cervical spine Limited CPR -AB (r) VR (c) Braces/Orthoses -- Cervical collar Alutiiq J cervical collar -AB (r) VR (c) Precaution Handout Issued -- No -AB (r) VR (c) Precaution Comments -- Verbally reviewed precautions -AB (r) VR (c) Type of Home -- House -AB (r) VR (c) Home Layout -- Two level;Bed/bath upstairs -AB (r) VR (c) # of Steps-Railed -- 13 Handrail bilateral for first 1/3. 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 -AB (r) VR (c) Fall within the last 6 months -- Yes -AB (r) VR (c) Fall within the last 6 months comment -- 1 fall caused by getting out of bed, cause for current admission -AB (r) VR (c) Prior Function Comments -- Pt stated she was doing pretty good for my age prior to admission -AB (r) VR (c) Endurance -- Tolerates less than 10 min activity no significant change in vital signs -AB (r) VR (c) Activity Tolerance Comments -- Meme= Hard (pt very painful) -AB (r) VR (c) Pain Assessment -- 0-10 -EG (r) AB (t) VR (c) Pain Score -- 1 8-9 when sitting up -AB (r) VR (c) Pain Type -- Acute pain -AB (r) VR (c) Pain Location -- Neck -AB (r) VR (c) Pain Orientation -- Generalized -AB (r) VR (c) Pain Descriptors -- Aching;Sharp;Sore -AB (r) VR (c) Pain Frequency -- With movement/cough -AB (r) VR (c) Pain Onset -- Ongoing -AB (r) VR (c) Clinical Progression -- Gradually worsening -AB (r) VR (c) Pain Interventions -- Repositioned;RN Notified RN Melissa -AB (r) VR (c) Arousal/Alertness -- Alert;Appropriate responses to stimuli -AB (r) VR (c) Attention Span -- Appears intact;Age appropriate -AB (r) VR (c) Memory -- Appears intact -AB (r) VR (c) Current communication -- Appears Intact -AB (r) VR (c) Orientation -- Oriented X4 (person, place, time, situation) -AB (r) VR (c) Light Touch -- WFL -AB (r) VR (c) Numbness/Tingling -- No -AB (r) VR (c) Endurance Deficit -- Yes -AB (r) VR (c) Endurance Deficit Description -- Meme=Hard (due to pain) -AB (r) VR (c) Balance -- Yes -AB (r) VR (c) Static Sitting-Balance Support -- Feet supported;Bilateral upper extremity supported -AB (r) VR (c) Static Sitting-Sitting Surface -- Bed -AB (r) VR (c) Static Sitting-Level of Assistance -- Close supervision -AB (r) VR (c) Static Sitting-Comment/# of Minutes -- 5 minutes. supervision for safety -AB (r) VR (c) Bed Mobility -- Yes -AB (r) VR (c) Bed Mobility From 1 -- Supine -AB (r) VR (c) Bed Mobility Type 1 -- To and from -AB (r) VR (c) Bed Mobility to 1 -- Short sit;Edge of bed -AB (r) VR (c) Level of Assistance 1 -- Moderate Assist;Minimal verbal cues -AB (r) VR (c) Bed Mobility Comments 1 -- Mod A for decreased force production. Min Cueing for hand placement -AB (r) VR (c) Transfer -- Yes -AB (r) VR (c) Transfer From 1 -- Sit -AB (r) VR (c) Transfer Type 1 -- To and from -AB (r) VR (c) Transfer to 1 -- Stand -AB (r) VR (c) Technique 1 -- Sit to stand;Stand to sit -AB (r) VR (c) Transfer Device 1 -- Wheeled walker -AB (r) VR (c) Transfer Level of Assistance 1 -- Minimum Assist;Minimal verbal cues -AB (r) VR (c) Trials/Comments 1 -- Min A for decreased force production, min cueing for hand placement -AB (r) VR(c) Functional Ambulation Category -- 2 -AB (r) VR (c) Ambulation -- Yes -AB (r) VR (c) Distance (ft) 1 -- 2 feet laterally -AB (r) VR (c) Surface 1 -- Level tile -AB (r) VR (c) Device 1 -- Wheeled walker -AB (r) VR (c) Assistance 1 -- Minimum Assist -AB (r) VR (c) Gait: Requires assist with 1 -- Maintaining balance;Weight shifting -AB (r) VR (c) Gait: Requires verbal cues to 1 -- Improve upright posture -AB (r) VR (c) Quality of Gait 1 -- Pt with slow sidestepping and decreased step length -AB (r) VR (c) Ambulation Comments 1 -- stepped laterally to sit higher in bed -AB (r) VR (c) Stairs -- No -AB (r) VR (c) RUE Assessment -- WFL -AB (r) VR (c) LUE Assessment -- WFL -AB (r) VR (c) RLE Assessment -- WFL -AB (r) VR (c) LLE Assessment -- WFL -AB (r) VR (c) PT Treatment/Exercise Comments -- Pt tolerated therapy fair today. She was able to perform bed mobility and sitting balance, however she was in significant pain reporting 9/10 pain upon sitting up. Pt requested to be returned to supine at end of therapy per her request -AB (r) VR (c) Equipment Use Comments -- gait belt used for safety -AB (r) VR (c) How much difficulty does the patient have: Turning over in bed -- 2 -AB (r) VR (c) How much difficulty does the patient currently have: Sitting down and standing up from a chair witharms? -- 2 -AB (r) VR (c) How much difficulty does the patient have: Moving from lying on back to sitting on the side of the bed? -- 2 -AB (r) VR (c) How much difficulty does the patient have: Moving to and from a bed to a chair including wheelchair? -- 2 -AB (r) VR (c) How much help does the patient currently need: Walk in hospital room? -- 2 -AB (r) VR (c) How much help from another person does the patient currently need: Climbing 3-5 steps with a railing? -- 1 -AB (r) VR (c) Total 6 Click Score (range 6-24) -- 11 -AB Score Interpretation -- 30.25 -AB (r) VR (c) Prognosis -- Good -AB (r) VR (c) Problem List -- Decreased strength;Decreased range of motion;Decreased endurance;Impaired balance;Decreased mobility;Pain -AB (r) VR (c) Problem List Comments -- PT Diagnosis: patient with unstable C2 fracture presents with deficits in bed mobility, transfers, mobility/ambulation due to impairments in pain, ROM/strength, balance, dependent mobility without use of mobility device. These deficits prevent full participation in home andcommunity mobility for this patient. -AB (r) VR (c) Barriers to Discharge -- Current Mobility Status -AB (r) VR (c) Plan -- Plan of care initiated;If this is the last note, consider this the discharge summary -AB (r) VR (c) PT Recommendation/Plan -- Home with family;Home with caregiver;Home with intermittent assist -AB (r) VR (c) PT Frequency -- 5-7x/wk -AB (r) VR (c) Treatment/Interventions -- Balance Training;Bed mobility;Endurance training;Functional activity;Functional transfer training;Gait training;Positioning;Range of motion;Stair training;Strengthening;Therapeutic activity;Therapeutic exercise;Transfer training -AB (r) VR (c) PT Equipment Recommended -- -- To be determined -AB (r) VR (c) Progress -- Slow progress, decreased activity tolerance -AB (r) VR (c) PT - OK to Discharge -- No -AB (r) VR (c) PT Evaluation Complete -- Yes -AB (r) VR (c) User Polo (r) = Recorded By, (t) = Taken By, (c) = Cosigned By Initials Name Effective Dates AB Shlomo Porras 01/06/20 - EG Natalie Cantu, RN 06/06/19 - VR Giana Hanks, PT 06/06/19 - LJ Chayito Graham, SHREDDER OPERATOR 06/06/19 - PT TREATMENT (last 168 hours) PT Treatment Row Name 03/26/20 0746 03/24/20 1136 PT Last Visit Session Type Treatment -CT (r) NF (c) Treatment -TW Safe Environment Arm Band Checked;Notified RN;Call Light within Reach;Patient found in Supine;Overbed Table within Reach;Bed in Lowest Position with Wheels locked;Bed rails up per protocol -CT (r) NF(c) Arm Band Checked;Call Light within Reach;Patient found in Supine -TW Subjective Agreeable to Therapy -CT (r) NF (c) Agreeable to Therapy -TW Subjective Comment Pt agreeable to short-term goals. -CT (r) NF (c) -- Family/Caregiver Present No -CT (r) NF (c) No -TW Precautions Precautions Cervical spine;Fall risk -CT (r) NF (c) Fall risk;Cervical spine -TW Braces/Orthoses Cervical collar Alutiiq Coleen -CT (r) NF (c) Cervical collar Alutiiq J -TW Precaution Handout Issued No -CT (r) NF (c) -- Precaution Comments Verbally reviewed precautions prior to bed mobility; pt verbalized and demonstrated understanding. -CT (r) NF (c) -- Activity Tolerance Activity Tolerance Comments Meme: Hard -CT (r) NF (c) Meme: hard -TW Pain Assessment Pain Assessment 0-10 -CT (r) NF (c) -- Pain Score 7 Pt reports pain is 3/10 if lying flat in bed. -CT (r) NF (c) -- Pain Type Acute pain -CT (r) NF (c) -- Pain Location Back (Cervical) -CT (r) NF (c) -- Pain Orientation Right -CT (r) NF (c) -- Pain Interventions Repositioned;Physical Therapy;RN Notified -CT (r) NF (c) -- Cognition Arousal/Alertness -- Alert;Appropriate responses to stimuli -TW Orientation Oriented X4 (person, place, time, situation) -CT (r) NF (c) -- Following Commands Follows multistep commands with repetition -CT (r) NF (c) -- Safety Judgment Good awareness of safety precautions -CT (r) NF (c) -- Balance Balance Yes -CT (r) NF (c) -- Static Sitting Balance Static Sitting-Balance Support Bilateral upper extremity supported;Feet supported -CT (r) NF (c) -- Static Sitting-Sitting Surface Bed -CT (r) NF (c) -- Static Sitting-Level of Assistance Close supervision For safety. -CT (r) NF (c) -- Static Standing Balance Static Standing-Balance Support Bilateral upper extremity supported on wheeled walker -NF -- Static Standing-Standing Surface Floor -CT (r) NF (c) -- Static Standing-Level of Assistance Contact guard For safety. -CT (r) NF (c) -- Static Standing-Comment/# of Minutes Pt demonstrated decreased stability in standing. -CT (r) NF (c) -- Equipment Use Equipment Use Comments Gait belt utilized for all OOB mobility. -CT (r) NF (c) gait belt used for all mobility -TW Bed Mobility Bed Mobility Yes -CT (r) NF (c) Yes -TW Bed Mobility 1 Bed Mobility From 1 Supine -CT (r) NF (c) Supine -TW Bed Mobility Type 1 To and from -CT (r) NF (c) To and from -TW Bed Mobility to 1 Short sit -CT (r) NF (c) Short sit;Edge of bed -TW Level of Assistance 1 Minimum Assist;Minimal verbal cues -CT (r) NF (c) Minimum Assist -TW Bed Mobility Comments 1 Log-rolled supine to/from side-lying to/from sit. Required Min A for trunk elevation using draw sheet when transferring from side- lying to sit and maneuvering LE's into bed when returning to side-lying. HOB flat. -NF assist for trunk elevation -TW Transfers Transfer Yes -CT (r) NF (c) Yes -TW Transfer 1 Transfer From 1 Sit -CT (r) NF (c) Sit -TW Transfer Type 1 To and from -CT (r) NF (c) To and from -TW Transfer to 1 Stand -CT (r) NF (c) Stand -TW Technique 1 -- -NF Sit to stand;Stand to sit -TW Transfer Device 1 Wheeled walker -CT (r) NF (c) Wheeled walker -TW Transfer Level of Assistance 1 Contact Guard Assist;Minimal verbal cues For safety. -CT (r) NF (c) Minimum Assist -TW Trials/Comments 1 Verbal cues for pushing off from/reaching back for the bed. Pt confused about verbal cues and attempted to push off from the walker with both hands several times until understandingcorrectly to push off from bed. -NF assist for force production -TW Transfers 2 Transfer From 2 -- Bed -TW Transfer Type 2 -- To -TW Transfer to 2 -- Chair with arms -TW Technique 2 -- Stand pivot -TW Transfer Device 2 -- Wheeled walker -TW Transfer Level of Assistance 2 -- Minimum Assist -TW Trials/Comments 2 -- assist for force production and steadying. -TW Ambulation Functional Ambulation Category 2 -CT (r) NF (c) -- Ambulation Yes -CT (r) NF (c) Yes -TW Ambulation 1 Distance (ft) 1 20 -CT (r) NF (c) 68 -TW Surface 1 Level tile -CT (r) NF (c) Level tile -TW Device 1 Wheeled walker -CT (r) NF (c) Wheeled walker -TW Assistance 1 Contact Guard Assist;Minimal verbal cues For safety. -CT (r) NF (c) Contact Guard Assist -TW Gait: Requires assist with 1 Maintaining balance -CT (r) NF (c) Maintaining balance -TW Gait: Requires verbal cues to 1 Use assistive device safely;Utilize appropriate gait sequencing -CT(r) NF (c) Improve upright posture;Use assistive device safely -TW Quality of Gait 1 Decreased step length. -CT (r) NF (c) Decreased hao and step length with flexed trunk posture and WW too far out in front. -TW Ambulation Comments 1 Pt demonstrated decreased balance during ambulation. Required verbal cues to keep WW close during ambulation and to decrease hao for improved balance. -CT (r) NF (c) -- Stairs Stairs No -CT (r) NF (c) No -TW Other Comments Other PT Comments Pt confused and sleepy when woken up for physical therapy, but willing to participate; patient reported need to do laundry. Upon questioning, patient was alert and oriented x 4, but commented that her pain medications cause her confusion and she sometimes finds herself talking to the armstrong; however, patient reports she is able to realize that this is happening. Pt ambulated to/from restroom and then requested to go back to bed instead of ambulating more due to increased pain. RN notified of patient's pain and was coming to adminster medication when SPT left room. Pt left supine with call light within reach. Discussion regarding discharge home versus short-term placement. Patient reports that her spouse works and will not be able to provide full-time assistance. Patient does report that her daughters might be able to provide intermittent assistance. Identified concerns regarding discharge home without full-time assistance for her initial recovery due to fall risk; patient acknowledged this concern. Discharge recommendation will remain for halfway facility, but will be updated as needed pending progress or arrangement of full-time assistance. -NF -- RUE Assessment RUE Assessment WFL -CT (r) NF (c) -- LUE Assessment LUE Assessment WFL -CT (r) NF (c) -- RLE Assessment RLE Assessment WFL -CT (r) NF (c) -- LLE Assessment LLE Assessment WF -CT (r) NF (c) -- Basic Mobility - 6 Click How much difficulty does the patient have: Turning over in bed 4 -CT (r) NF (c) 3 -TW How much difficulty does the patient currently have: Sitting down and standing up from a chair witharms? 3 -CT (r) NF (c) 3 -TW How much difficulty does the patient have: Moving from lying on back to sitting on the side of the bed? 3 -CT (r) NF (c) 3 -TW How much difficulty does the patient have: Moving to and from a bed to a chair including wheelchair? 3 -CT (r) NF (c) 3 -TW How much help does the patient currently need: Walk in hospital room? 3 -CT (r) NF (c) 3 -TW How much help from another person does the patient currently need: Climbing 3-5 steps with a railing? 3 -CT (r) NF (c) 2 -TW Total 6 Click Score (range 6-24) 19 -CT 17 -TW Score Interpretation 42.48 -CT (r) NF (c) 39.67 -TW Assessment Prognosis Good -CT (r) NF (c) Good -TW Problem List Gait deviations;Decreased range of motion;Decreased endurance;Impaired balance;Pain;Orthopedic restrictions -CT (r) NF (c) Gait deviations;Decreased strength;Impaired balance;Decreased mobility;Pain -TW Problem List Comments PT Diagnosis: Patient with unstable C2 fracture presents with above listed deficits and impairments which prevent full participation in home and community mobility. -CT (r) NF (c) -- Barriers to Discharge Current Mobility Status;Inaccessible home environment;Decreased caregiver support -NF -- Plan Plan Continue with current plan -CT (r) NF (c) Continue with current plan;If this is the last note,consider this the discharge summary -TW Recommendation/Plan PT Recommendation/Plan [facility] Facility If patient/family refuse, will need 24 hour assistance/HH PT -NF [facility] Facility -TW PT Frequency 5-7x/wk -CT (r) NF (c) 5-7x/wk -TW Treatment/Interventions Balance Training;Bed mobility;Endurance training;Functional activity;Functional transfer training;Gait training;Parent/caregiver training and education;Stair training;Therapeutic activity;Therapeutic exercise;Transfer training -CT (r) NF (c) Balance Training;Bed mobility;Endurance training;Functional transfer training;Gait training;Stair training;Therapeutic activity;Therapeutic exercise -TW Progress Slow progress, decreased activity tolerance -NF Slow progress, decreased activity tolerance -TW PT - OK to Discharge No -CT (r) NF (c) -- User Polo (r) = Recorded By, (t) = Taken By, (c) = Cosigned By Initials Name Effective Dates CT Janki Trores 02/29/20 - TW Sal Del Rosario, PT 03/28/19 - NF Vanessakenton Crouch, PT 03/28/19 - PT Notes (Notes from 03/25/20 through 03/27/20) No notes of this type exist for this encounter. , PT Eval and Treat Last Documented OT ASSESSMENT FLOWSHEET LAST DOCUMENTED (most recent) PT Evaluation - 03/27/20 1249 Precautions Precautions Fall risk;Cervical spine PT TREATMENT (most recent) PT Treatment - 03/27/20 1249 Precautions Precautions Fall risk;Cervical spine PT Notes (Notes from 03/25/20 through 03/27/20) No notes of this type exist for this encounter. * [facility] Note - Lilly Landeros LCSW - 03/27/2020 1:28 PM CDT Images from the original note were not included. Patient Information: Vitals Info Only Vital Signs 03/26 0700 - 03/27 0659 03/27 07 - 03/27 1328 Most Recent Temp (??C) 36.4 - 36.8 36.9 36.9 (98.4) Pulse 71 - 96 69 - 82 78 Resp 18 - 19 18 18 SpO2 (%) 94 - 99 95 - 98 95 BP 148/88 - 178/88 153/84 - 186/84 153/84 MAP (mmHg) 94 - 116 * Plan of Care - Lilly Landeros LCSW - 03/27/2020 1:17 PM CDT SW spoke with patient via phone to discuss discharge plans and rehab placement. Patient told SW that she spoke to her last night and that they are both in [facility], however, requested that SW speak with her daughter Kristin ([phone]) to discuss further. SARAHI contacted Kristin to discuss further. Kristin told SARAHI that she and her (who is an MD) both still would like patient to return home, due to COVID concerns. Kristin asked SWif anyone told the patient that she would not be allowed any visitors, while at rehab, and that shewould never see her . SARAHI explained that rehabs are now allowing visitors, therefore, this isnot the case. 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 SARAHI told Kristin that they also have the option to take patient home, however,that she would need 24 hour care. Kristin plans to contact patient to discuss further and will contact SARAHI back. SARAHI will follow. * Plan of Care - Gardenia Hart OT - 03/27/2020 11:43 AM CDT Problem: Grooming Goal: STG - Patient will complete grooming Description: In standing with supervision Outcome: Progressing Problem: Toileting Goal: STG - Patient will complete toileting tasks with Description: Min A Outcome: Progressing Problem: Precautions Goal: STG - Patient will demonstrate precautions consistently during ADL tasks/functional mobility. Description: Without cues Outcome: Progressing Problem: Transfers Goal: STG - Patient will perform toilet transfer Description: To toilet in bathroom with min A Outcome: Progressing * Plan of Care - Tisha Maria RN - 03/27/2020 10:01 AM CDT Problem: Activity: Goal: Mobility will improve Outcome: Progressing Problem: Lack of Knowledge: Goal: Understanding of ways to prevent future skin breakdown will improve Outcome: Progressing Goal: Ability to identify appropriate dietary choices will improve Outcome: Progressing Problem: Nutritional: Goal: Dietary intake will improve Outcome: Progressing Goal: Ability to maintain a balanced intake and output will improve Outcome: Progressing Problem: Skin Integrity: Goal: Risk for impaired skin integrity will decrease Outcome: Progressing Goal: Ability to demonstrate warm and dry skin will improve Outcome: Progressing Goal: Circulation will improve to fullest extent possible Outcome: Progressing Problem: Lack of Knowledge: Goal: [...] Progressing Goals: Clinical Goals for the Shift: pain control; IS; therapy Summary: Patient is progressing towards all goals. * Plan of Care - Mariia Cabrera RN - 03/26/2020 10:25 PM CDT Problem: Activity: Goal: Mobility will improve Outcome: Progressing Problem: Lack of Knowledge: Goal: Understanding of ways to prevent future skin breakdown will improve Outcome: Progressing Goal: Ability to identify appropriate dietary choices will improve Outcome: Progressing Problem: Nutritional: Goal: Dietary intake will improve Outcome: Progressing Goal: Ability to maintain a balanced intake and output will improve Outcome: Progressing Problem: Skin Integrity: Goal: Risk for impaired skin integrity will decrease Outcome: Progressing Goal: Ability to demonstrate warm and dry skin will improve Outcome: Progressing Goal: Circulation will improve to fullest extent possible Outcome: Progressing Problem: Lack of Knowledge: Goal: [...] Progressing Goals: Clinical Goals for the Shift: pain control, rest Summary: Pt. Resting in bed. PRN flexeril and tramadol have been administered. Call light within reach. * ECIN Note - Lilly Landeros LCSW - 03/26/2020 3:35 PM CDT Images from the original note were not included. Patient Information: Wound Info Only Patient Lines/Drains/Airways Status Active Wound / Pressure ulcer / [place] / Negative Pressure Wound Wound Abrasion(s) Date First Assessed -- Site: -- Time First Assessed -- Days: Wound Type: Abrasion(s) , Vitals Info Only Vital Signs 03/25 07 - 03/26 0659 03/26 07 - 03/26 1535 Most Recent Temp (??C) 36.4 - 37.1 36.4 - 36.8 36.8 (98.2) Pulse 74 - 86 71 - 94 94 Resp 16 - 18 SpO2 (%) 94 - 100 94 - 99 96 BP 142/86 - 169/91 151/78 - 178/88 151/78 MAP (mmHg) 94 - 116 94 , Oxygen Info Only Default Flowsheet Data (most recent) Endurance Tests No documentation. Default Flowsheet Data (last 48 hours) Oxygen Row Name 03/26/20 1146 03/26/20 0816 03/26/20 0746 03/26/20 0719 03/25/20 2040 Oxygen Therapy/Pulse Ox O2 Therapy None (Room air) -- -- None (Room air) -- SpO2 96 % 96 % 94 % 99 % 97 % Row Name 03/25/20 1532 03/25/20 1050 03/25/20 0815 03/25/20 0712 03/24/20 2337 Oxygen Therapy/Pulse Ox O2 Therapy None (Room air) None (Room air) None (Room air) None (Room air) -- SpO2 96 % 94 % -- 100 % 96 % Row Name 03/24/20 1847 03/24/20 1548 Oxygen Therapy/Pulse Ox O2 Therapy -- None (Room air) SpO2 95 % 96 % * ECIN Note - Lilly Landeros LCSW - 03/26/2020 3:35 PM CDT Patient Information: OT Eval and Treat Last 72 Hours OT Evaluation Row Name 03/23/20 1605 03/22/20 1510 03/21/20 0928 Chart Reviewed -- -- Yes -NB Session Type Treatment -NB -- Evaluation -NB OT Received On 03/23/20 -NB -- 09/16/20 -NB Safe Environment Arm Band Checked;Call Light within Reach;Notified RN;Session Completed Bedside;Patient found in Supine left supine, call light in reach - -- Arm Band Checked;Call Light within Reach;Notified RN;Session Completed Bedside;Patient found in Supine Left supine, call light in reach -NB Subjective Agreeable to Therapy -NB -- Agreeable to Therapy -NB Subjective Comment -- -- I just want some rest - OT Missed Visit Reason -- Asleep unable to maintain level of arousal for therapy x2 -NB -- Family/Caregiver Present Yes -NB -- No -NB Occupational Therapy-Patient Goal -- -- None stated; pt agreeable to OT POC - Precautions -- -- Fall risk;Cervical spine - Braces/Orthoses -- -- Cervical collar - Precaution Handout Issued -- -- Yes - Precaution Comments -- -- Verbally reviewed cervical spine precautions with pt. Pt verbalized and demonstrated understanding. - Type of Home -- -- House - Home Layout -- -- Two level;Bed/bath upstairs 12-15 steps to bed/bath - Home Access -- -- Stairs to enter without rails - Entrance Stairs-Rails -- -- None - Entrance Stairs-Number of Steps -- -- 2 - Bathroom Shower/Tub -- -- Tub/shower unit - Bathroom Toilet -- -- Standard - Bathroom Accessibility -- -- Accessible - Home Mobility Equipment -- -- None - Additional Comments -- -- Pt reports no AD/DME use prior to admission. 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 - Prior Function Comments -- -- Pt reports no concerns regarding self-care prior to admission. - ADLS (WDL) -- -- X -NB Grooming: Where assessed -- -- Edge of bed - Grooming: Level of assistance -- -- Moderate Assist set up task, total balance; unable to perform in standing - Grooming: Assistance with -- -- Increased time to complete;Safety balance; set up of ADL items - LE Dressing: Where assessed -- -- Edge of bed - LE Dressing: Level of assistance -- -- Maximum Assist Max A task, supervision sitting balance; declined to stand - LE Dressing: Assistance with -- -- Verbal cueing;Supervision/safety;Increased time to complete;Don/doff R sock;Don/doff L sock;Thread RLE into pants;Thread LLE into pants;Thread RLE into underwear;Thread LLE into underwear;Pull up over hips limited 2/2 pain this date - Toileting: Where assessed -- -- Bedside Commode simulated EOB - Toileting: Level of assistance -- -- Moderate Assist Mod A task, supervision sitting balance; declined to stand - Toileting: Assistance with -- -- Clothing management up;Clothing management down;Posterior - Toilet Transfers Comments -- -- Pt declined 2/2 pain - Pain Assessment -- -- 0-10 - Pain Score -- -- 5 - Moderate pain - Pain Type -- -- Acute pain - Pain Location -- -- Neck - Pain Orientation -- -- Right - Pain Interventions -- -- Repositioned - Current Vision -- -- Wears glasses all the time - Overall Cognitive Status -- -- WFL - Arousal/Alertness -- -- Alert;Appropriate responses to stimuli - Attention Span -- -- Appears intact - Memory -- -- Appears intact - Current communication -- -- Appears Intact - Orientation -- -- Oriented X4 (person, place, time, situation) - Following Commands -- -- Follows all commands and directions without difficulty - Safety Judgment -- -- Good awareness of safety precautions - Awareness of Errors -- -- Good awareness of errors made - Insight -- -- Fully aware of deficits - Problem Solving -- -- Able to problem solve independently - Compliance/Behavior -- -- Easy to engage - Perseveration -- -- Not present - Numbness/Tingling -- -- Yes Pt reports numbness on R posterior neck - Fine Motor -- -- L - Serial Opposition -- -- L - Hand Preference -- -- Right -NB Coordination -- -- Functional - Gross Grasp -- -- Functional - Balance -- -- Yes - Static Sitting-Balance Support -- -- Feet supported;Bilateral upper extremity supported - Static Sitting-Sitting Surface -- -- Bed - Static Sitting-Level of Assistance -- -- Close supervision - Static Sitting-Comment/# of Minutes -- -- supervision for safety - Dynamic Sitting-Balance Support -- -- No upper extremity supported;Feet supported - Dynamic Sitting-Balance -- -- Forward lean;Reaching for objects;Reaching across midline LE dressingEOB - Dynamic Sitting-Sitting Surface -- -- Bed - Dynamic Sitting-Level of Assistance -- -- Close supervision - Dynamic Sitting-Comments -- -- supervision for safety - Bed Mobility -- -- Yes - Bed Mobility From 1 -- -- Supine - Bed Mobility Type 1 -- -- To and from - Bed Mobility to 1 -- -- Edge of bed - Level of Assistance 1 -- -- Minimum Assist - Bed Mobility Comments 1 -- -- Min A for assist with trunk elevation using draw sheet to sit EOB. Assist with maneuvering LEs into bed when returning to supine. HOB elevated. Pt states she has a recliner to sleep in upon D/C. - Transfer -- -- No Pt declined 2/2 pain - RUE Assessment -- -- [facility] - LUE Assessment -- -- [facility] - Comments -- -- Pt provided education regarding c-spine precautions. Pt verbalized and demonstrated understanding. Functional performance limited this date 2/2 pain. Pt required assist for all ADLs and functional mobility this date. Pt declined transfers/mobility 2/2 pain. Pt would benefit from continued skilled OT to address functional deficits during acute care stay. Discussed D/C recs with pt; pt agreeable to OT POC. - Problem List -- -- Decreased endurance;Decreased balance;Decreased functional mobility;Decreased ADL independence;Decreased IADL independence;Pain - Barriers to Discharge -- -- Decreased caregiver support;Current Mobility Status - Barrier Comments -- -- Fall risk - Plan -- -- Plan of care initiated;If this is the last note, consider this the discharge summary - OT Recommendation -- -- Inpatient Rehab Facility - OT Recommendation/Plan Comments -- -- Pending further mobility assessment. - OT Frequency -- -- 5-7x/wk - Treatment/Interventions -- -- ADL/IADL retraining;Balance Training;Bed mobility;Compensatory technique education;Endurance training;Equipment eval/education;Functional activity;Functional transfer training;Functional mobility training;Strengthening;Therapeutic activity;Therapeutic exercise;Transfertraining - OT - Next Appointment -- -- 03/22/20 - OT - OK to Discharge -- -- No - OT Evaluation Complete -- -- Yes - User Polo (r) = Recorded By, (t) = Taken By, (c) = Cosigned By Initials Name Effective Dates NB Vanessa Matos, OT 06/06/19 - OT Treatment Row Name 03/24/20 1001 03/23/20 1605 Session Type Treatment -BB -- OT Received On 03/24/20 -BB -- Safe Environment Arm Band Checked;Call Light within Reach;Notified RN;Patient found in Supine Pt left in supine with call light in reach -BB -- Subjective Agreeable to Therapy -BB -- Family/Caregiver Present No -BB -- Precautions Fall risk;Cervical spine -BB Fall risk;Cervical spine -NB Braces/Orthoses Cervical collar Alutiiq J -BB Cervical collar Alutiiq J -NB Precaution Handout Issued No -BB -- Precaution Comments OT reviewed cervical spine precautions prior to functional mobility and ADLS -BB Verbally reviewed C-spine precautions prior to mobility -NB Pain Assessment 0-10 -BB 0-10 -NB Pain Score 6 -BB 7 -NB Pain Type -- Acute pain -NB Pain Location Neck -BB Neck - Pain Orientation -- Right -NB Pain Interventions RN Notified DEREK Mathis -FREDI Repositioned;RN Notified Melissa notified -NB Balance Yes -BB Yes -NB Static Sitting-Balance Support Feet supported;Bilateral upper extremity supported -BB Bilateral upper extremity supported;Feet supported - Static Sitting-Sitting Surface Bed -BB Bed - Static Sitting-Level of Assistance Close supervision - Close supervision - Static Sitting-Comment/# of Minutes safety, EOB approx 3 minutes - supervision for safety - Dynamic Sitting-Balance Support -- No upper extremity supported;Feet supported - Dynamic Sitting-Balance -- Forward lean;Reaching for objects;Reaching across midline - Dynamic Sitting-Sitting Surface -- Bed - Dynamic Sitting-Level of Assistance -- Close supervision - Dynamic Sitting-Comments -- supervision for safety - Static Standing-Balance Support -- Bilateral upper extremity supported - Static Standing-Standing Surface -- Floor - Static Standing-Level of Assistance -- Minimum assistance - Static Standing-Comment/# of Minutes -- Min A for steadying assist - Dynamic Standing-Balance Support -- Bilateral upper extremity supported on therapist - Dynamic Standing-Balance -- Forward lean;Reaching for objects;Reaching across midline during transfer - Dynamic Standing-Standing Surface -- Floor - Dynamic Standing-Level of Assistance -- Minimum assistance - Dynamic Standing-Comments -- Min A for steadying assist - ADLS (WDL) -- pt refused ADLs this date - X -NB Grooming: Where assessed -- Edge of bed - Grooming: Level of assistance -- Moderate Assist set up task, total balance - Grooming: Assistance with -- Increased time to complete;Safety balance; set up of ADL items; unableto perform in standing - Toileting: Where assessed -- Bedside Commode - Toileting: Level of assistance -- Moderate Assist Mod A task, Min A balance - Toileting: Assistance with -- Clothing management up;Clothing management down;Posterior balance - Bed Mobility Yes -BB Yes -NB Bed Mobility From 1 Supine -BB Supine -NB Bed Mobility Type 1 To and from -BB To and from - Bed Mobility to 1 Edge of bed -BB Edge of bed - Level of Assistance 1 Minimum Assist - Minimum Assist - Bed Mobility Comments 1 min A to maneuver LEs and elevate trunk, cues to maintain precautions -BB Min A for assist with trunk elevation using draw sheet. HOB elevated. Assist for maneuvering LEs intobed when returning to supine. HOB elevated -NB Transfer No pt refused OOB mobility this date 2/2 pain -BB Yes Gait belt worn for all OOB mobility -NB Transfer From 1 -- Sit -NB Transfer Type 1 -- To and from -NB Transfer to 1 -- Stand -NB Technique 1 -- Sit to stand;Stand to sit -NB Transfer Device 1 -- No device -NB Transfer Level of Assistance 1 -- Minimum Assist -NB Trials/Comments 1 -- Min A for assist force production, standing balance and controlled descent. -NB Toilet Transfer From -- Bed -NB Toilet Transfer Type -- To and from -NB Toilet Transfer to -- Standard toilet -NB Toilet Transfer Technique -- Stand pivot stand step -NB Toilet Transfer: Equipment -- No device -NB Toilet Transfers -- Minimal assistance -NB Toilet Transfers Comments -- Min A for force production, standing balance and controlled descent. Min verbal cues for sequencing transfer. -NB Arousal/Alertness Alert;Appropriate responses to stimuli -BB Lethargic;Delayed responses to stimuli-NB Attention Span Attends with cues to redirect -BB Attends with cues to redirect -NB Current communication Appears Intact -BB Appears Intact -NB Orientation Oriented X4 (person, place, time, situation) -BB Oriented X4 (person, place, time, situation) -NB Following Commands Follows all commands and directions without difficulty -BB Follows all commands and directions without difficulty -NB Safety Judgment Good awareness of safety precautions -BB Good awareness of safety precautions -NB Awareness of Errors -- Assistance required to identify errors made -NB Insight Fully aware of deficits -BB Fully aware of deficits -NB Problem Solving Assistance required to generate solutions -BB Assistance required to identify errors made -NB Compliance/Behavior Easy to engage;Tearful 2/2 pain -BB Easy to engage -NB Perseveration Not present -BB Not present -NB Comments Pt limited by pain this date, refused all OOB mobility. OT educated on safety concern of going home without FT assist, and pt reported being open to going to a rehab facility. OT educated onimportance of OOB activity, pt verbalized understanding. -BB Treatment this date included bed mobility in preparation for participation in self-care tasks, grooming, simulated toileting and functional transfers/mobility. Functional performance significantly limited by pain and lethargy. Pt with delayed responses to questions this date. DEREK Torres notified. Discussed ADL independence and mobility concerns with pt's . Maintaining discharge rec of inpatient rehab / decreased caregiver support and impaired balance/stability with mobility this date. Pt would benefit from continued skilled OT to address functional deficits during acute care stay. -NB Problem List Decreased upper extremity strength;Decreased endurance;Decreased balance;Decreased functional mobility;Decreased ADL independence;Decreased IADL independence;Pain -BB Decreased upper extremity strength;Decreased endurance;Decreased balance;Decreased functional mobility;Decreased ADL ind ependence;Decreased IADL independence;Pain -NB Barriers to Discharge Current Mobility Status;Decreased caregiver support -BB Current Mobility Status;Decreased caregiver support -NB Barrier Comments -- Fall risk -NB Plan Continue with current plan;If this is the last note, consider this the discharge summary -BB Continue with current plan;If this is the last note, consider this the discharge summary -NB OT Recommendation Inpatient Rehab Facility -BB Inpatient Rehab Facility -NB OT Recommendation/Plan Comments pending more participation -BB pending progress -NB OT Frequency 5-7x/wk -BB 5-7x/wk -NB Treatment/Interventions ADL/IADL retraining;Balance Training;Bed mobility;Compensatory technique education;Endurance training;Functional activity;Functional mobility training;Functional transfer train ing;Strengthening;Therapeutic activity;Therapeutic exercise;Transfer training - BB ADL/IADL retraining;Balance Training;Bed mobility;Compensatory technique education;Endurance training;Equipment eval/education;Functional activity;Functional transfer training;Functional mobility training;Strengthening ;Therapeutic activity;Therapeutic exercise;Transfer training -NB Progress Slow progress, decreased activity tolerance -BB Progressing toward goals -NB OT - Next Appointment 03/26/20 -BB 03/24/20 -NB OT - OK to Discharge No -BB No -NB User Polo (r) = Recorded By, (t) = Taken By, (c) = Cosigned By Initials Name Effective Dates BB Gardenia Hart OT 04/28/19 - NB Vanessa Matos OT 06/06/19 - OT Notes (Notes from 03/24/20 through 03/26/20) No notes of this type exist for this encounter. , OT Eval and Treat Last Documented OT ASSESSMENT FLOWSHEET LAST DOCUMENTED (most recent) OT Evaluation - 03/26/20 1452 Precautions Precautions Fall risk;Cervical spine OT TREATMENT FLOWSHEET LAST DOCUMENTED (most recent) OT Treatment - 03/26/20 1452 Precautions Precautions Fall risk;Cervical spine OT Notes (Notes from 03/24/20 through 03/26/20) No notes of this type exist for this encounter. , PT Eval and Treat Last 72 Hours PT Evaluation Row Name 03/23/20 5721 03/21/20 1500 Chart Reviewed -- Yes -AB (r) VR (c) Session Type -- Evaluation -AB (r) VR (c) Safe Environment -- Arm Band Checked;Call Light within Reach;Notified RN;Session Completed Bedside;Patient found in Supine;Overbed Table within Reach RN Melissa -AB (r) VR (c) Subjective -- Agreeable to Therapy -AB (r) VR (c) Subjective Comment -- Pt willing to see what she could do -AB (r) VR (c) PT Missed Visit Reason Patient declined present and wanted pt. to eat. - LJ -- Family/Caregiver Present -- Yes -AB (r) VR (c) Physical Therapy-Patient Goal -- Get back to playing music -AB (r) VR (c) PT Functional Mobility -- Interventions: pt educated in precautions and mobility within these precautions -AB (r) VR (c) Precautions -- Fall risk;Cervical spine Limited CPR -AB (r) VR (c) Braces/Orthoses -- Cervical collar Alutiiq J cervical collar -AB (r) VR (c) Precaution Handout Issued -- No -AB (r) VR (c) Precaution Comments -- Verbally reviewed precautions -AB (r) VR (c) Type of Home -- House -AB (r) VR (c) Home Layout -- Two level;Bed/bath upstairs -AB (r) VR (c) # of Steps-Railed -- 13 Handrail bilateral for first 1/3. 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 -AB (r) VR (c) Fall within the last 6 months -- Yes -AB (r) VR (c) Fall within the last 6 months comment -- 1 fall caused by getting out of bed, cause for current admission -AB (r) VR (c) Prior Function Comments -- Pt stated she was doing pretty good for my age prior to admission -AB (r) VR (c) Endurance -- Tolerates less than 10 min activity no significant change in vital signs -AB (r) VR (c) Activity Tolerance Comments -- Meme= Hard (pt very painful) -AB (r) VR (c) Pain Assessment -- 0-10 -EG (r) AB (t) VR (c) Pain Score -- 1 8-9 when sitting up -AB (r) VR (c) Pain Type -- Acute pain -AB (r) VR (c) Pain Location -- Neck -AB (r) VR (c) Pain Orientation -- Generalized -AB (r) VR (c) Pain Descriptors -- Aching;Sharp;Sore -AB (r) VR (c) Pain Frequency -- With movement/cough -AB (r) VR (c) Pain Onset -- Ongoing -AB (r) VR (c) Clinical Progression -- Gradually worsening -AB (r) VR (c) Pain Interventions -- Repositioned;RN Notified RN Melissa -AB (r) VR (c) Arousal/Alertness -- Alert;Appropriate responses to stimuli -AB (r) VR (c) Attention Span -- Appears intact;Age appropriate -AB (r) VR (c) Memory -- Appears intact -AB (r) VR (c) Current communication -- Appears Intact -AB (r) VR (c) Orientation -- Oriented X4 (person, place, time, situation) -AB (r) VR (c) Light Touch -- WFL -AB (r) VR (c) Numbness/Tingling -- No -AB (r) VR (c) Endurance Deficit -- Yes -AB (r) VR (c) Endurance Deficit Description -- Meme=Hard (due to pain) -AB (r) VR (c) Balance -- Yes -AB (r) VR (c) Static Sitting-Balance Support -- Feet supported;Bilateral upper extremity supported -AB (r) VR (c) Static Sitting-Sitting Surface -- Bed -AB (r) VR (c) Static Sitting-Level of Assistance -- Close supervision -AB (r) VR (c) Static Sitting-Comment/# of Minutes -- 5 minutes. supervision for safety -AB (r) VR (c) Bed Mobility -- Yes -AB (r) VR (c) Bed Mobility From 1 -- Supine -AB (r) VR (c) Bed Mobility Type 1 -- To and from -AB (r) VR (c) Bed Mobility to 1 -- Short sit;Edge of bed -AB (r) VR (c) Level of Assistance 1 -- Moderate Assist;Minimal verbal cues -AB (r) VR (c) Bed Mobility Comments 1 -- Mod A for decreased force production. Min Cueing for hand placement -AB (r) VR (c) Transfer -- Yes -AB (r) VR (c) Transfer From 1 -- Sit -AB (r) VR (c) Transfer Type 1 -- To and from -AB (r) VR (c) Transfer to 1 -- Stand -AB (r) VR (c) Technique 1 -- Sit to stand;Stand to sit -AB (r) VR (c) Transfer Device 1 -- Wheeled walker -AB (r) VR (c) Transfer Level of Assistance 1 -- Minimum Assist;Minimal verbal cues -AB (r) VR (c) Trials/Comments 1 -- Min A for decreased force production, min cueing for hand placement -AB (r) VR(c) Functional Ambulation Category -- 2 -AB (r) VR (c) Ambulation -- Yes -AB (r) VR (c) Distance (ft) 1 -- 2 feet laterally -AB (r) VR (c) Surface 1 -- Level tile -AB (r) VR (c) Device 1 -- Wheeled walker -AB (r) VR (c) Assistance 1 -- Minimum Assist -AB (r) VR (c) Gait: Requires assist with 1 -- Maintaining balance;Weight shifting -AB (r) VR (c) Gait: Requires verbal cues to 1 -- Improve upright posture -AB (r) VR (c) Quality of Gait 1 -- Pt with slow sidestepping and decreased step length -AB (r) VR (c) Ambulation Comments 1 -- stepped laterally to sit higher in bed -AB (r) VR (c) Stairs -- No -AB (r) VR (c) RUE Assessment -- WFL -AB (r) VR (c) LUE Assessment -- WFL -AB (r) VR (c) RLE Assessment -- WFL -AB (r) VR (c) LLE Assessment -- WFL -AB (r) VR (c) PT Treatment/Exercise Comments -- Pt tolerated therapy fair today. She was able to perform bed mobility and sitting balance, however she was in significant pain reporting 9/10 pain upon sitting up. Pt requested to be returned to supine at end of therapy per her request -AB (r) VR (c) Equipment Use Comments -- gait belt used for safety -AB (r) VR (c) How much difficulty does the patient have: Turning over in bed -- 2 -AB (r) VR (c) How much difficulty does the patient currently have: Sitting down and standing up from a chair witharms? -- 2 -AB (r) VR (c) How much difficulty does the patient have: Moving from lying on back to sitting on the side of the bed? -- 2 -AB (r) VR (c) How much difficulty does the patient have: Moving to and from a bed to a chair including wheelchair? -- 2 -AB (r) VR (c) How much help does the patient currently need: Walk in hospital room? -- 2 -AB (r) VR (c) How much help from another person does the patient currently need: Climbing 3-5 steps with a railing? -- 1 -AB (r) VR (c) Total 6 Click Score (range 6-24) -- 11 -AB Score Interpretation -- 30.25 -AB (r) VR (c) Prognosis -- Good -AB (r) VR (c) Problem List -- Decreased strength;Decreased range of motion;Decreased endurance;Impaired balance;Decreased mobility;Pain -AB (r) VR (c) Problem List Comments -- PT Diagnosis: patient with unstable C2 fracture presents with deficits in bed mobility, transfers, mobility/ambulation due to impairments in pain, ROM/strength, balance, dependent mobility without use of mobility device. These deficits prevent full participation in home andcommunity mobility for this patient. -AB (r) VR (c) Barriers to Discharge -- Current Mobility Status -AB (r) VR (c) Plan -- Plan of care initiated;If this is the last note, consider this the discharge summary -AB (r) VR (c) PT Recommendation/Plan -- Home with family;Home with caregiver;Home with intermittent assist -AB (r) VR (c) PT Frequency -- 5-7x/wk -AB (r) VR (c) Treatment/Interventions -- Balance Training;Bed mobility;Endurance training;Functional activity;Functional transfer training;Gait training;Positioning;Range of motion;Stair training;Strengthening;Therapeutic activity;Therapeutic exercise;Transfer training -AB (r) VR (c) PT Equipment Recommended -- -- To be determined -AB (r) VR (c) Progress -- Slow progress, decreased activity tolerance -AB (r) VR (c) PT - OK to Discharge -- No -AB (r) VR (c) PT Evaluation Complete -- Yes -AB (r) VR (c) User Polo (r) = Recorded By, (t) = Taken By, (c) = Cosigned By Initials Name Effective Dates Shlomo Chiquita 01/06/20 - EG Natalie Cantu, RN 06/06/19 - VR Giana Hanks, PT 06/06/19 - MIKE Graham, SHREDDER OPERATOR 06/06/19 - PT TREATMENT (last 168 hours) PT Treatment Row Name 03/26/20 0746 03/24/20 1136 PT Last Visit Session Type Treatment -CT (r) NF (c) Treatment -TW Safe Environment Arm Band Checked;Notified RN;Call Light within Reach;Patient found in Supine;Overbed Table within Reach;Bed in Lowest Position with Wheels locked;Bed rails up per protocol -CT (r) NF(c) Arm Band Checked;Call Light within Reach;Patient found in Supine -TW Subjective Agreeable to Therapy -CT (r) NF (c) Agreeable to Therapy -TW Subjective Comment Pt agreeable to short-term goals. -CT (r) NF (c) -- Family/Caregiver Present No -CT (r) NF (c) No -TW Precautions Precautions Cervical spine;Fall risk -CT (r) NF (c) Fall risk;Cervical spine -TW Braces/Orthoses Cervical collar Alutiiq J -CT (r) NF (c) Cervical collar Alutiiq J -TW Precaution Handout Issued No -CT (r) NF (c) -- Precaution Comments Verbally reviewed precautions prior to bed mobility; pt verbalized and demonstrated understanding. -CT (r) NF (c) -- Activity Tolerance Activity Tolerance Comments Meme: Hard -CT (r) NF (c) Meme: hard -TW Pain Assessment Pain Assessment 0-10 -CT (r) NF (c) -- Pain Score 7 Pt reports pain is 3/10 if lying flat in bed. -CT (r) NF (c) -- Pain Type Acute pain -CT (r) NF (c) -- Pain Location Back (Cervical) -CT (r) NF (c) -- Pain Orientation Right -CT (r) NF (c) -- Pain Interventions Repositioned;Physical Therapy;RN Notified -CT (r) NF (c) -- Cognition Arousal/Alertness -- Alert;Appropriate responses to stimuli -TW Orientation Oriented X4 (person, place, time, situation) -CT (r) NF (c) -- Following Commands Follows multistep commands with repetition -CT (r) NF (c) -- Safety Judgment Good awareness of safety precautions -CT (r) NF (c) -- Balance Balance Yes -CT (r) NF (c) -- Static Sitting Balance Static Sitting-Balance Support Bilateral upper extremity supported;Feet supported -CT (r) NF (c) -- Static Sitting-Sitting Surface Bed -CT (r) NF (c) -- Static Sitting-Level of Assistance Close supervision For safety. -CT (r) NF (c) -- Static Standing Balance Static Standing-Balance Support Bilateral upper extremity supported on wheeled walker -NF -- Static Standing-Standing Surface Floor -CT (r) NF (c) -- Static Standing-Level of Assistance Contact guard For safety. -CT (r) NF (c) -- Static Standing-Comment/# of Minutes Pt demonstrated decreased stability in standing. -CT (r) NF (c) -- Equipment Use Equipment Use Comments Gait belt utilized for all OOB mobility. -CT (r) NF (c) gait belt used for all mobility -TW Bed Mobility Bed Mobility Yes -CT (r) NF (c) Yes -TW Bed Mobility 1 Bed Mobility From 1 Supine -CT (r) NF (c) Supine -TW Bed Mobility Type 1 To and from -CT (r) NF (c) To and from -TW Bed Mobility to 1 Short sit -CT (r) NF (c) Short sit;Edge of bed -TW Level of Assistance 1 Minimum Assist;Minimal verbal cues -CT (r) NF (c) Minimum Assist -TW Bed Mobility Comments 1 Log-rolled supine to/from side-lying to/from sit. Required Min A for trunk elevation using draw sheet when transferring from side- lying to sit and maneuvering LE's into bed when returning to side-lying. HOB flat. -NF assist for trunk elevation -TW Transfers Transfer Yes -CT (r) NF (c) Yes -TW Transfer 1 Transfer From 1 Sit -CT (r) NF (c) Sit -TW Transfer Type 1 To and from -CT (r) NF (c) To and from -TW Transfer to 1 Stand -CT (r) NF (c) Stand -TW Technique 1 -- -NF Sit to stand;Stand to sit -TW Transfer Device 1 Wheeled walker -CT (r) NF (c) Wheeled walker -TW Transfer Level of Assistance 1 Contact Guard Assist;Minimal verbal cues For safety. -CT (r) NF (c) Minimum Assist -TW Trials/Comments 1 Verbal cues for pushing off from/reaching back for the bed. Pt confused about verbal cues and attempted to push off from the walker with both hands several times until understandingcorrectly to push off from bed. -NF assist for force production -TW Transfers 2 Transfer From 2 -- Bed -TW Transfer Type 2 -- To -TW Transfer to 2 -- Chair with arms -TW Technique 2 -- Stand pivot -TW Transfer Device 2 -- Wheeled walker -TW Transfer Level of Assistance 2 -- Minimum Assist -TW Trials/Comments 2 -- assist for force production and steadying. -TW Ambulation Functional Ambulation Category 2 -CT (r) NF (c) -- Ambulation Yes -CT (r) NF (c) Yes -TW Ambulation 1 Distance (ft) 1 20 -CT (r) NF (c) 68 -TW Surface 1 Level tile -CT (r) NF (c) Level tile -TW Device 1 Wheeled walker -CT (r) NF (c) Wheeled walker -TW Assistance 1 Contact Guard Assist;Minimal verbal cues For safety. -CT (r) NF (c) Contact Guard Assist -TW Gait: Requires assist with 1 Maintaining balance -CT (r) NF (c) Maintaining balance -TW Gait: Requires verbal cues to 1 Use assistive device safely;Utilize appropriate gait sequencing -CT(r) NF (c) Improve upright posture;Use assistive device safely -TW Quality of Gait 1 Decreased step length. -CT (r) NF (c) Decreased hao and step length with flexed trunk posture and WW too far out in front. -TW Ambulation Comments 1 Pt demonstrated decreased balance during ambulation. Required verbal cues to keep WW close during ambulation and to decrease hao for improved balance. -CT (r) NF (c) -- Stairs Stairs No -CT (r) NF (c) No -TW Other Comments Other PT Comments Pt confused and sleepy when woken up for physical therapy, but willing to participate; patient reported need to do laundry. Upon questioning, patient was alert and oriented x 4, but commented that her pain medications cause her confusion and she sometimes finds herself talking to the armstrong; however, patient reports she is able to realize that this is happening. Pt ambulated to/from restroom and then requested to go back to bed instead of ambulating more due to increased pain. RN notified of patient's pain and was coming to adminster medication when SPT left room. Pt left supine with call light within reach. Discussion regarding discharge home versus short-term placement. Patient reports that her spouse works and will not be able to provide full-time assistance. Patient does report that her daughters might be able to provide intermittent assistance. Identified concerns regarding discharge home without full-time assistance for her initial recovery due to fall risk; patient acknowledged this concern. Discharge recommendation will remain for halfway facility, but will be updated as needed pending progress or arrangement of full-time assistance. -NF -- RUE Assessment RUE Assessment WFL -CT (r) NF (c) -- LUE Assessment LUE Assessment WFL -CT (r) NF (c) -- RLE Assessment RLE Assessment WFL -CT (r) NF (c) -- LLE Assessment LLE Assessment WFL -CT (r) NF (c) -- Basic Mobility - 6 Click How much difficulty does the patient have: Turning over in bed 4 -CT (r) NF (c) 3 -TW How much difficulty does the patient currently have: Sitting down and standing up from a chair witharms? 3 -CT (r) NF (c) 3 -TW How much difficulty does the patient have: Moving from lying on back to sitting on the side of the bed? 3 -CT (r) NF (c) 3 -TW How much difficulty does the patient have: Moving to and from a bed to a chair including wheelchair? 3 -CT (r) NF (c) 3 -TW How much help does the patient currently need: Walk in hospital room? 3 -CT (r) NF (c) 3 -TW How much help from another person does the patient currently need: Climbing 3-5 steps with a railing? 3 -CT (r) NF (c) 2 -TW Total 6 Click Score (range 6-24) 19 -CT 17 -TW Score Interpretation 42.48 -CT (r) NF (c) 39.67 -TW Assessment Prognosis Good -CT (r) NF (c) Good -TW Problem List Gait deviations;Decreased range of motion;Decreased endurance;Impaired balance;Pain;Orthopedic restrictions -CT (r) NF (c) Gait deviations;Decreased strength;Impaired balance;Decreased mobility;Pain -TW Problem List Comments PT Diagnosis: Patient with unstable C2 fracture presents with above listed deficits and impairments which prevent full participation in home and community mobility. -CT (r) NF (c) -- Barriers to Discharge Current Mobility Status;Inaccessible home environment;Decreased caregiver support -NF -- Plan Plan Continue with current plan -CT (r) NF (c) Continue with current plan;If this is the last note,consider this the discharge summary -TW Recommendation/Plan PT Recommendation/Plan [facility] Facility If patient/family refuse, will need 24 hour assistance/HH PT -NF [facility] Facility -TW PT Frequency 5-7x/wk -CT (r) NF (c) 5-7x/wk -TW Treatment/Interventions Balance Training;Bed mobility;Endurance training;Functional activity;Functional transfer training;Gait training;Parent/caregiver training and education;Stair training;Therapeutic activity;Therapeutic exercise;Transfer training -CT (r) NF (c) Balance Training;Bed mobility;Endurance training;Functional transfer training;Gait training;Stair training;Therapeutic activity;Therapeutic exercise -TW Progress Slow progress, decreased activity tolerance -NF Slow progress, decreased activity tolerance -TW PT - OK to Discharge No -CT (r) NF (c) -- User Polo (r) = Recorded By, (t) = Taken By, (c) = Cosigned By Initials Name Effective Dates CT Janki Torres 02/29/20 - TW Sal Del Rosario, PT 03/28/19 - NF Vanessa Crouch, PT 03/28/19 - PT Notes (Notes from 03/24/20 through 03/26/20) No notes of this type exist for this encounter. , PT Eval and Treat Last Documented OT ASSESSMENT FLOWSHEET LAST DOCUMENTED (most recent) PT Evaluation - 03/26/20 1452 Precautions Precautions Fall risk;Cervical spine PT TREATMENT (most recent) PT Treatment - 03/26/20 1452 Precautions Precautions Fall risk;Cervical spine PT Notes (Notes from 03/24/20 through 03/26/20) No notes of this type exist for this encounter. * [facility] Note - Lilly Landeros LCSW - 03/26/2020 3:35 PM CDT Patient Information: Meds and Admin Active Only All Meds/Most Recent Administrations HYDROmorphone (DILAUDID) injection 0.5 mg [[id number]] Ordering Provider: Jessi Aldana MD Status: Completed (Past End Date/Time) Ordered On: 03/19/202104 Starts/Ends: 03/19/202104 - 03/19/202111 Dose (Remaining/Total): 0.5 mg (0/1) Route: intravenous Frequency: Once Rate/Duration: -- / 2 Minutes Line Med Link Info Comment Peripheral IV 03/19/20 20 G Right Forearm 03/19/202109 by Adolfo Shi RN -- Timestamps Action Dose / Duration Route Other Information 03/19/202109 Given 0.5 mg 2 Minutes intravenous Performed by: Adolfo Shi RN Scanned Package: 7200-0308-66 ondansetron (ZOFRAN) injection 4 mg [[id number]] Ordering Provider: Jessi Aldana MD Status: Completed (Past End Date/Time) Ordered On: 03/19/202104 Starts/Ends: 03/19/202105 - 03/19/202111 Dose (Remaining/Total): 4 mg (0/1) Route: intravenous Frequency: Once Rate/Duration: -- / 2 Minutes Line Med Link Info Comment Peripheral IV 03/19/20 20 G Right Forearm 03/19/202109 by Adolfo Shi RN -- Timestamps Action Dose / Duration Route Other Information 03/19/202109 Given 4 mg 2 Minutes intravenous Performed by: Adolfo Shi RN Scanned Package: 66326-053-25 predniSONE (DELTASONE) tablet 5 mg [[id number]] Ordering Provider: Jose So MD Status: Dispensed Ordered On: 03/19/202228 Start: 03/20/20899 Dose (Remaining/Total): 5 mg (--/--) Route: oral Frequency: Daily Rate/Duration: -- / -- Timestamps Action Dose Route Other Information 03/26/20 0825 Given 5 mg oral Performed by: Tisha Maria RN Scanned Package: 4590-6048-60 morphine injection 4 mg [[id number]] Ordering Provider: Stewart Mathews MD Status: Completed (Past End Date/Time) Ordered On: 03/19/202329 Starts/Ends: 03/19/202330 - 03/19/202337 Dose (Remaining/Total): 4 mg (0/1) Route: intravenous Frequency: Once Rate/Duration: -- / 4 Minutes Line Med Link Info Comment Peripheral IV 03/19/20 20 G Right Antecubital 03/19/202333 by Adolfo Shi RN -- Timestamps Action Dose / Duration Route Other Information 03/19/202333 Given 4 mg 4 Minutes intravenous Performed by: Adolfo Shi RN ondansetron (ZOFRAN) injection 4 mg [[id number]] Ordering Provider: Stewart Mathews MD Status: Completed (Past End Date/Time) Ordered On: 03/19/202329 Starts/Ends: 03/19/202330 - 03/19/202335 Dose (Remaining/Total): 4 mg (0/1) Route: intravenous Frequency: Once Rate/Duration: -- / 2 Minutes Line Med Link Info Comment Peripheral IV 03/19/20 20 G Right Antecubital 03/19/202333 by Adolfo Shi RN -- Timestamps Action Dose / Duration Route Other Information 03/19/202333 Given 4 mg 2 Minutes intravenous Performed by: Adolfo Shi RN LORazepam (ATIVAN) injection 0.5 mg [[id number]] Ordering Provider: Stewart Mathews MD Status: Completed (Past End Date/Time) Ordered On: 03/20/20117 Starts/Ends: 03/20/20118 - 03/20/20149 Dose (Remaining/Total): 0.5 mg (0/1) Route: intravenous Frequency: Once Rate/Duration: -- / -- Admin Instructions: For IV administration, dilute with equal volume of 0.9% sodium chloride. Do not exceed a rate of 2 mg/minute Line Med Link Info Comment Peripheral IV 03/19/20 20 G Right Antecubital 03/20/20149 by Adolfo Shi RN -- Timestamps Action Dose Route Other Information 03/20/20149 Given 0.5 mg intravenous Performed by: Adolfo Shi RN Scanned Package: 9287-3471-85 ioversoL (OPTIRAY 350) syringe syringe 100 mL [[id number]] Ordering Provider: Stewart Mathews MD Status: Completed (Past End Date/Time) Ordered On: 03/20/2042 Starts/Ends: 03/20/2042 - 03/20/20614 Dose (Remaining/Total): 100 mL (0/1) Route: intravenous Frequency: Once in imaging Rate/Duration: -- / -- Line Med Link Info Comment Peripheral IV 03/19/20 20 G Right Antecubital 03/20/20614 by Ramin Burton, RT -- Timestamps Action Dose Route Other Information 03/20/20614 Given 100 mL intravenous Performed by: RT Rufina Scanned Package: 1057-8951-69 levothyroxine (SYNTHROID) tablet 100 mcg [[id number]] Ordering Provider: Jose So MD Status: Dispensed Ordered On: 03/20/201438 Start: 03/21/20 0600 Dose (Remaining/Total): 100 mcg (--/--) Route: oral Frequency: Daily (early AM) Rate/Duration: -- / -- Admin Instructions: Administer on an empty stomach, preferably 30 minutes before breakfast. Take 4 hours apart from antacids, iron and calcium products. Timestamps Action Dose Route Other Information 03/26/20 0530 Given 100 mcg oral Performed by: Flavia Beltran RN Scanned Package: 38500-025-29 lisinopriL (PRINIVIL,ZESTRIL) tablet 10 mg [[id number]] Ordering Provider: Jose So MD Status: Dispensed Ordered On: 03/20/201438 Start: 03/21/20599 Dose (Remaining/Total): 10 mg (--/--) Route: oral Frequency: Daily (early AM) Rate/Duration: -- / -- Timestamps Action Dose Route Other Information 03/26/2030 Given 10 mg oral Performed by: Flavia Beltran RN Scanned Package: 8389-9846-78 pravastatin (PRAVACHOL) tablet 20 mg [[id number]] Ordering Provider: Jose So MD Status: Dispensed Ordered On: 03/20/201438 Start: 03/20/202099 Dose (Remaining/Total): 20 mg (--/--) Route: oral Frequency: Nightly Rate/Duration: -- / -- Timestamps Action Dose Route Other Information 03/25/202039 Given 20 mg oral Performed by: Flavia Beltran RN Scanned Package: 75666-597-06 trimethoprim (TRIMPEX) tablet 100 mg [[id number]] Ordering Provider: Jose So MD Status: Dispensed Ordered On: 03/20/201438 Start: 03/20/202099 Dose (Remaining/Total): 100 mg (--/--) Route: oral Frequency: Nightly Rate/Duration: -- / -- Timestamps Action Dose Route Other Information 03/25/20 2040 Given 100 mg oral Performed by: Flavia Beltran RN Scanned Package: 93102-260-55 acetaminophen (TYLENOL) tablet 1,000 mg [[id number]] Ordering Provider: Jose So MD Status: Dispensed Ordered On: 03/20/20 1439 Start: 03/20/20 1800 Dose (Remaining/Total): 1,000 mg (--/--) Route: oral Frequency: Every 6 hours scheduled Rate/Duration: -- / -- Timestamps Action Dose Route Other Information 03/26/20 1421 Given 1,000 mg oral Performed by: Tisha Maria RN Scanned Package: 81436-515-95, 90322-079-07 HYDROmorphone (DILAUDID) injection 0.5 mg [[id number]] Ordering Provider: Regina Bernard MD Status: Completed (Past End Date/Time) Ordered On: 03/20/20 1237 Starts/Ends: 03/20/20 1238 - 03/20/20 1306 Dose (Remaining/Total): 0.5 mg (0/1) Route: intravenous Frequency: Once Rate/Duration: -- / 2 Minutes Line Med Link Info Comment Peripheral IV 03/19/20 20 G Right Antecubital 03/20/20 1304 by Renée Choe RN -- Timestamps Action Dose / Duration Route Other Information 03/20/20 1304 Given 0.5 mg 2 Minutes intravenous Performed by: Renée Choe RN Scanned Package: 4720-5559-71 enoxaparin (LOVENOX) syringe 30 mg [[id number]] Ordering Provider: Samia Thompson NP Status: Dispensed Ordered On: 03/20/20 1633 Start: 03/20/20 2100 Dose (Remaining/Total): 30 mg (--/--) Route: subcutaneous Frequency: Every 12 hours scheduled Rate/Duration: -- / -- Timestamps Action Dose Route / Site Other Information 03/26/20 0826 Given 30 mg subcutaneous Left Lower Abdomen Performed by: Tisha Maria RN Scanned Package: 8365-0985-21 acyclovir (ZOVIRAX) capsule 200 mg [[id number]] Ordering Provider: Mikayla Jimenez MD Status: Dispensed Ordered On: 03/20/201647 Start: 03/20/20 2100 Dose (Remaining/Total): 200 mg (--/--) Route: oral Frequency: 2 times daily Rate/Duration: -- / -- Timestamps Action Dose Route Other Information 03/26/20 08 Given 200 mg oral Performed by: Tisha Maria RN Scanned Package: 12597-372-81 ondansetron (ZOFRAN) injection 8 mg [[id number]] Ordering Provider: Sammie Santiago NP Status: Completed (Past End Date/Time) Ordered On: 03/21/2053 Starts/Ends: 03/21/20129 - 03/21/20226 Dose (Remaining/Total): 8 mg (0/1) Route: intravenous Frequency: Once Rate/Duration: -- / 2 Minutes Line Med Link Info Comment Peripheral IV 03/19/20 20 G Right Forearm 03/21/20224 by Angelika Ochoa RN -- Timestamps Action Dose / Duration Route Other Information 03/21/20224 Given 8 mg 2 Minutes intravenous Performed by: Angelika Ocoha RN Scanned Package: 05446-967-06, 81929-300-37 metoprolol tartrate (LOPRESSOR) immediate release tablet 75 mg [[id number]] Ordering Provider: Kesha Lawrence NP Status: Dispensed Ordered On: 03/21/202145 Start: 03/22/20899 Dose (Remaining/Total): 75 mg (--/--) Route: oral Frequency: 2 times daily Rate/Duration: -- / -- Timestamps Action Dose Route Other Information 03/26/20824 Given 75 mg oral Performed by: Tisha Maria RN Scanned Package: 16862-878-53, 99044-453-41 senna-docusate (PERICOLACE) 8.6-50 mg per tablet 2 tablet [[id number]] Ordering Provider: Kesha Lawrence NP Status: Dispensed Ordered On: 03/21/202148 Start: 03/22/20 0900 Dose (Remaining/Total): 2 tablet (--/--) Route: oral Frequency: 2 times daily Rate/Duration: -- / -- Timestamps Action Dose Route Other Information 03/25/20 0816 Given 2 tablet oral Performed by: Javon Aiken RN Scanned Package: 04157-670-74, 37346-499-36 polyethylene glycol (MIRALAX) packet 17 g [[id number]] Ordering Provider: Kesha Lawrence NP Status: Dispensed Ordered On: 03/21/202148 Start: 03/22/20899 Dose (Remaining/Total): 17 g (--/--) Route: oral Frequency: Daily Rate/Duration: -- / -- Timestamps Action Dose Route Other Information 03/26/20 08 Given 17 g oral Performed by: Tisha Maria RN Scanned Package: [address]-1 tacrolimus (PROGRAF) capsule 0.5 mg [[id number]] Ordering Provider: Mikayla Jimenez MD Status: Dispensed Ordered On: 03/22/201218 Start: 03/22/20 2100 Dose (Remaining/Total): 0.5 mg (--/--) Route: oral Frequency: Every 12 hours scheduled Rate/Duration: -- / -- Admin Instructions: Avoid grapefruit juice Timestamps Action Dose Route Other Information 03/26/20 0825 Given 0.5 mg oral Performed by: Tisha Maria RN Scanned Package: 15562-045-05 gabapentin (NEURONTIN) capsule 300 mg [[id number]] Ordering Provider: Marianne Valle NP Status: Dispensed Ordered On: 03/23/2014 Start: 03/23/20 0545 Dose (Remaining/Total): 300 mg (--/--) Route: oral Frequency: 2 times daily Rate/Duration: -- / -- Timestamps Action Dose Route Other Information 03/26/20 0825 Given 300 mg oral Performed by: Tisha Maria RN Scanned Package: [id number] lidocaine (LIDODERM) 5 % patch 2 patch [[id number]] Ordering Provider: Marianne Valle NP Status: Dispensed Ordered On: 03/23/20 0514 Start: 03/23/20 0900 Dose (Remaining/Total): 2 patch (--/--) Route: transdermal Frequency: Daily Rate/Duration: -- / 12 Hours Admin Instructions: Do not cover the holes on the top side of the patch. Question Answer Comment Apply to affected area:: back -- Timestamps Action Dose / Duration Route / Site Other Information 03/26/20 0826 Medication Applied 2 patch 12 Hours transdermal Back Performed by: Tisha Maria RN Scanned Package: 9785-8385-53, 5711-3623-65 metoprolol tartrate (LOPRESSOR) immediate release tablet 25 mg [[id number]] Ordering Provider: Mikayla Jimenez MD Status: Completed (Past End Date/Time) Ordered On: 03/23/20 1409 Starts/Ends: 03/23/20 1445 - 03/23/20 1504 Dose (Remaining/Total): 25 mg (0/1) Route: oral Frequency: Once Rate/Duration: -- / -- Timestamps Action Dose Route Other Information 03/23/20 1504 Given 25 mg oral Performed by: Melissa Calvo RN Scanned Package: [id number] traMADoL (ULTRAM) tablet 50 mg [[id number]] Ordering Provider: Samia Thompson NP Status: Verified Ordered On: 03/25/20 1247 Start: 03/25/20 1246 Dose (Remaining/Total): 50 mg (--/--) Route: oral Frequency: 4 times daily PRN Rate/Duration: -- / -- (No admins recorded for this medication) cyclobenzaprine (FLEXERIL) tablet 5 mg [[id number]] Ordering Provider: Jocelynn Otero NP Status: Verified Ordered On: 03/26/20 1439 Start: 03/26/20 1445 Dose (Remaining/Total): 5 mg (--/--) Route: oral Frequency: 3 times daily PRN Rate/Duration: -- / -- (No admins recorded for this medication) * [facility] Note - Lilly Landeros LCSW - 03/26/2020 3:34 PM CDT Images from the original note were not included. Patient Information: Comprehensive Nursing Documentation Attending Provider: Deacon Shashi Alegre MD Allergies: Nitrofurantoin, Tetracycline, Tetracyclines, Levofloxacin, Codeine, Keflex [Cephalexin] Isolation: None Infection: None Code Status: LIMITED Ht: 157.5 cm (5' 2 ) Wt: 60 kg (132 lb 4.4 oz) Admission Cmt: None Principal Problem: Traumatic closed fracture of C2 vertebra with minimal displacement ([facility]) [S12.100A] Intake/Output 03/23/20 0700 - 03/24/20 0659 Total Intake (ml) -- Output (ml) 250 Net (ml) -250 Patient Lines/Drains/Airways Status Active Airway / Central venous catheter / Drain / Epidural cathether / Intraosseous line / Peripherally inserted central catheter / Peripheral intravenous line / Arterial line None Patient Lines/Drains/Airways Status Active Wound / Pressure ulcer / [place] / Negative Pressure Wound Wound Abrasion(s) Date First Assessed -- Site: -- Time First Assessed -- Days: Wound Type: Abrasion(s) Thompson Fall Risk Most Recent Value Auto Low/High - if selected proceed to interventions Low risk-patient immobile/non-ambulatory or infant ............filed at 03/26/2020 0800 History of Falling 25 ............filed at 03/26/2020 0800 Secondary Diagnosis 15 ............filed at 03/26/2020 0800 Ambulatory Aids 15 ............filed at 03/26/2020 0800 Intravenous Therapy/Heparin/Saline Lock 0 ............filed at 03/26/2020 0800 Gait/Transferring 10 ............filed at 03/26/2020 0800 Mental Status 0 ............filed at 03/26/2020 0800 Thompson Fall Risk Score 20 ............filed at 03/26/2020 0800 Vital Signs 03/25 0700 - 03/26 0659 03/26 700 - 03/26 1534 Most Recent Temp (??C) 36.4 - 37.1 36.4 - 36.8 36.8 (98.2) Pulse 74 - 86 71 - 94 94 Resp 16 18 SpO2 (%) 94 - 100 94 - 99 96 BP 142/86 - 169/91 151/78 - 178/88 151/78 MAP (mmHg) 94 - 116 94 Non Violent Restraint Most Recent Value Restraint Alternative Less Restrictive Alternative Comfort Measures filed at 03/25/2020 1700 Restraint Reason Restraint Type (NV) Every 2 Hours Default Flowsheet Data (most recent) Endurance Tests No documentation. Default Flowsheet Data (most recent) Balance Tests - 03/21/20 0928 Tinetti Sitting Balance 1 Arises 0 Attempts to Arise 0 Immediate Standing Balance (First 5 Seconds) 0 Standing Balance 0 Nudged 0 Eyes Closed 0 Turned 360 Degrees: Steadiness 0 Turned 360 Degrees: Continuity of Steps 0 Sitting Down 0 Balance Score 1 Nursing Nutrition Feeding Level of Assistance 03/25 0920 Able to feed self 03/24 1100 Able to feed self 03/24 1038 Able to feed self Nursing Mobility Activity 03/26 1452 Resting in bed 03/26 1207 Sleeping 03/26 1017 Sleeping 03/26 0800 Resting in bed 03/26 0543 Resting in bed 03/26 0238 Sleeping 03/25 2054 Resting in bed 03/25 1700 Bathroom privileges 03/25 0815 Resting in bed 03/25 0609 Resting in bed 03/25 0445 Bathroom privileges 03/25 0200 Sleeping 03/25 0000 Sleeping 03/24 2338 Sleeping 03/24 2310 Sleeping 03/24 2047 Resting in bed 03/24 1100 Resting in bed 03/24 0526 Sleeping 03/24 0408 Sleeping 03/24 0240 Resting in bed 03/24 0022 Sleeping 03/23 2315 Resting in bed 03/23 2030 Resting in bed 03/23 170 Resting in bed Level of Assistance 03/25 1700 Minimal assist, patient does 75% or more 03/25 0815 Moderate assist, patient does 50-74% 03/24 1100 Moderate assist, patient does 50-74% 03/23 2315 Dependent, patient does less than 25% Ambulation Response 03/25 1700 Tolerated fairly well 03/24 1100 Tolerated fairly well 09/18 2315 Tolerated fairly well Repositioned 03/26 0800 Turns self 03/25 0815 Semi Britt's;Pillow support 03/24 204 Semi Britt's 03/24 1100 Supine 03/23 2315 Supine Positioning Frequency 03/26 0800 Every 2 hours 03/25 2045 Every 2 hours 03/25 0815 Every 2 hours 03/24 2047 Every 2 hours 03/24 1100 Every 2 hours 03/23 2315 Every 2 hours 03/23 2300 Every 2 hours Head of Bed Elevated 03/26 0800 Self regulated 03/25 0815 Self regulated 03/24 1100 HOB 30 03/23 2315 HOB 30 03/23 2300 HOB 30 Type of Device 03/26 0800 Mechanical compression 03/25 2000 Mechanical compression 03/25 0815 Mechanical compression 03/24 204 Mechanical compression 03/24 1100 Mechanical compression 03/23 2030 Mechanical compression Mechanical Compression Site 03/26 0800 Bilateral 03/25 2000 Bilateral 03/25 0815 Bilateral 03/24 2045 Bilateral 03/24 1100 Bilateral 03/23 2030 Bilateral Mechanical Compression Type 03/26 0800 IPC/SCD 03/25 2000 IPC/SCD 03/25 0815 IPC/SCD 03/24 2045 IPC/SCD 03/24 1100 IPC/SCD 03/23 2030 IPC/SCD Mechanical Compression Status 03/26 0800 On 03/25 2000 On 03/25 0815 On 03/24 2045 On 03/24 1100 On 03/23 2030 On * Plan of Care - Lilly Landeros LCSW - 03/26/2020 3:30 PM CDT Medical team reached out to social work and asked SW to contact patient to discuss the possibility of going to rehab. SW spoke with patient via phone and explained rehab vs SNF and the admission criteria for both. Patient was in agreement with SW sending a referral to [facility], however, asked that SW contact her back tomorrow to discuss further so she can discuss the plan with her family. [facility] referral sent to [place]. SW will follow. * Plan of Care - Idalia Verduzco RN - 03/26/2020 3:11 PM CDT Per DCAM patient is not medically ready for discharge today. Patient needs to continue to work withtherapy before she can go home. [facility] [phone] is following for RN and PT. * Plan of Care - Lilly Landeros LCSW - 03/26/2020 10:37 AM CDT Patient has recommendations for placement, however, per CM patient and family are refusing placement and plan to take patient home with home health services. SW available if needed. * Plan of Care - Tisha Maria RN - 03/26/2020 9:43 AM CDT Problem: Activity: Goal: Mobility will improve Outcome: Progressing Problem: Lack of Knowledge: Goal: Understanding of ways to prevent future skin breakdown will improve Outcome: Progressing Goal: Ability to identify appropriate dietary choices will improve Outcome: Progressing Problem: Nutritional: Goal: Dietary intake will improve Outcome: Progressing Goal: Ability to maintain a balanced intake and output will improve Outcome: Progressing Problem: Skin Integrity: Goal: Risk for impaired skin integrity will decrease Outcome: Progressing Goal: Ability to demonstrate warm and dry skin will improve Outcome: Progressing Goal: Circulation will improve to fullest extent possible Outcome: Progressing Problem: Lack of Knowledge: Goal: [...] Progressing Goals: Clinical Goals for the Shift: pain control; IS; therapy Summary: Patient is progressing towards all goals. * Plan of Care - Janki Torres - 03/26/2020 8:58 AM CDT Problem: Mobility Goal: LTG - Patient will ambulate community distance Description: Of 1000 feet independently Outcome: Progressing Goal: STG - Patient will ambulate Description: 100 feet with supervision with wheeled walker Outcome: Progressing Problem: Transfers Goal: STG - Patient to transfer to and from sit to supine Description: With supervision Outcome: Progressing Goal: STG - Patient will transfer sit to and from stand Description: With supervision and appropriate assistive device Outcome: Progressing Problem: Precautions Goal: STG - Patient will demonstrate precautions consistently during mobility and ambulation. Outcome: Progressing Problem: Mobility Goal: STG - Patient will ascend and descend four to six stairs Description: With R handrail and appropriate assistive device/min A Outcome: Defer Cosigned by Vanessa Crouch PT at 03/26/2020 9:34 AM CDT * Plan of Care - Flavia Beltran RN - 03/26/2020 3:46 AM CDT Problem: Activity: Goal: Mobility will improve Outcome: Progressing Problem: Lack of Knowledge: Goal: Understanding of ways to prevent future skin breakdown will improve Outcome: Progressing Goal: Ability to identify appropriate dietary choices will improve Outcome: Progressing Problem: Nutritional: Goal: Dietary intake will improve Outcome: Progressing Goal: Ability to maintain a balanced intake and output will improve Outcome: Progressing Problem: Skin Integrity: Goal: Risk for impaired skin integrity will decrease Outcome: Progressing Goal: Ability to demonstrate warm and dry skin will improve Outcome: Progressing Goal: Circulation will improve to fullest extent possible Outcome: Progressing Problem: Lack of Knowledge: Goal: [...] Progressing Goals: Clinical Goals for the Shift: pain management, therapy Flavia Beltran RN * Plan of Care - Kelle Wells RN - 03/25/2020 11:30 AM CDT Discharge plan discussed with nursing staff. Patient is not medically ready for discharge today. CMto follow for discharge needs. For weekend assistance, please call the on-call weekend case managerat [phone]. * Plan of Care - Javon Aiken RN - 03/25/2020 10:07 AM CDT Goals: Clinical Goals for the Shift: pain management, therapy Summary: Patient Aox4 but drowsy this morning. Patient aroused and fell back to sleep multiple times during conversation. Patient's gabapentin and flexeril held this AM due to this. Patient's miralaxheld due to BM this morning. Patient denies numbness/tingling. Will continue to monitor patient's progress. * Plan of Care - Flavia Beltran RN - 03/24/2020 10:09 PM CDT Problem: Activity: Goal: Mobility will improve Outcome: Progressing Problem: Lack of Knowledge: Goal: Understanding of ways to prevent future skin breakdown will improve Outcome: Progressing Goal: Ability to identify appropriate dietary choices will improve Outcome: Progressing Problem: Nutritional: Goal: Dietary intake will improve Outcome: Progressing Goal: Ability to maintain a balanced intake and output will improve Outcome: Progressing Problem: Skin Integrity: Goal: Risk for impaired skin integrity will decrease Outcome: Progressing Goal: Ability to demonstrate warm and dry skin will improve Outcome: Progressing Goal: Circulation will improve to fullest extent possible Outcome: Progressing Problem: Lack of Knowledge: Goal: [...] Progressing Goals: Clinical Goals for the Shift: PAIN CONTROL, POSITIONING, [place] J, ENCOURAGE FLUIDS Flavia Beltran RN * Plan of Care - Loren Caldwell RN - 03/24/2020 2:07 PM CDT Discharge plan discussed with nursing staff. Patient is not medically ready for discharge today. CMto follow for discharge needs. For weekend assistance, please call the on-call weekend case managerat [phone] * Plan of Care - Sal Del Rosario, CAROL - 03/24/2020 12:41 PM CDT Problem: Mobility Goal: STG - Patient will ambulate Description: 100 feet with supervision with wheeled walker Outcome: Progressing Problem: Transfers Goal: STG - Patient to transfer to and from sit to supine Description: With supervision Outcome: Progressing Goal: STG - Patient will transfer sit to and from stand Description: With supervision and appropriate assistive device Outcome: Progressing Problem: Precautions Goal: STG - Patient will demonstrate precautions consistently during mobility and ambulation. Outcome: Progressing * Plan of Care - Delfina Kitchen RN - 03/24/2020 12:09 PM CDT Goals: Clinical Goals for the Shift: PAIN CONTROL, POSITIONING, [place] J, ENCOURAGE FLUIDS Summary: Delfina Kitchen RN * Plan of Care - Gardenia Hart OT - 03/24/2020 11:39 AM CDT Problem: Precautions Goal: STG - Patient will demonstrate precautions consistently during ADL tasks/functional mobility. Description: Without cues Outcome: Progressing Problem: Dressings Lower Extremities Goal: STG - Patient to complete lower body dressing Description: With supervision Outcome: Not Progressing Problem: Dressing Upper Extremities Goal: STG - Patient will dress upper body Description: With min A Outcome: Not Progressing Problem: Grooming Goal: STG - Patient will complete grooming Description: In standing with supervision Outcome: Not Progressing Problem: Toileting Goal: STG - Patient will complete toileting tasks with Description: Min A Outcome: Not Progressing Problem: Transfers Goal: STG - Patient will perform toilet transfer Description: To toilet in bathroom with min A Outcome: Not Progressing * Plan of Care - Melissa Blank RN - 03/23/2020 11:42 PM CDT Goals: Clinical Goals for the Shift: PAIN CONTROL, POSITIONING, [place], ENCOURAGE FLUIDS Summary: PATIENT RESTING IN BED. PATIENT REPORTING NECK PAIN. MEDICATIONS GIVEN. PATIENT REPOSITIONED. PATIENT DIAPER CHANGED. ENCOURAGING FLUIDS. Problem: Activity: Goal: Mobility will improve Outcome: Progressing Problem: Lack of Knowledge: Goal: Understanding of ways to prevent future skin breakdown will improve Outcome: Progressing Goal: Ability to identify appropriate dietary choices will improve Outcome: Progressing Problem: Nutritional: Goal: Dietary intake will improve Outcome: Progressing Goal: Ability to maintain a balanced intake and output will improve Outcome: Progressing Problem: Skin Integrity: Goal: Risk for impaired skin integrity will decrease Outcome: Progressing Goal: Ability to demonstrate warm and dry skin will improve Outcome: Progressing Goal: Circulation will improve to fullest extent possible Outcome: Progressing Problem: Lack of Knowledge: Goal: Ability to state ways to decrease the risk of falls will improve Outcome: Progressing Problem: Safety: Goal: Will remain free from falls Outcome: Progressing Goal: Will remain free from injury from falls Outcome: Progressing Goal: Will remain free from falls and injury in home environment Outcome: Progressing * Plan of Care - Vanessa Matos OT - 03/23/2020 4:59 PM CDT Problem: Grooming Goal: STG - Patient will complete grooming Description: In standing with supervision Outcome: Not Progressing Problem: Toileting Goal: STG - Patient will complete toileting tasks with Description: Min A Outcome: Progressing Problem: Transfers Goal: STG - Patient will perform toilet transfer Description: With min A Outcome: Completed Problem: Precautions Goal: STG - Patient will demonstrate precautions consistently during ADL tasks/functional mobility. Description: Without cues Outcome: Progressing * Plan of Care - Melissa Calvo RN - 03/23/2020 3:47 PM CDT Problem: Activity: Goal: Mobility will improve Outcome: Progressing Problem: Lack of Knowledge: Goal: Understanding of ways to prevent future skin breakdown will improve Outcome: Progressing Goal: Ability to identify appropriate dietary choices will improve Outcome: Progressing Problem: Nutritional: Goal: Dietary intake will improve Outcome: Progressing Goal: Ability to maintain a balanced intake and output will improve Outcome: Progressing Problem: Skin Integrity: Goal: Risk for impaired skin integrity will decrease Outcome: Progressing Goal: Ability to demonstrate warm and dry skin will improve Outcome: Progressing Goal: Circulation will improve to fullest extent possible Outcome: Progressing Problem: Lack of Knowledge: Goal: [...] Progressing Goals: Clinical Goals for the Shift: pain control, IS, VS, rest, labs Summary: Patient is progressing towards goals * Plan of Care - Angelika Ochoa RN - 03/22/2020 11:18 PM CDT Problem: Activity: Goal: Mobility will improve Outcome: Progressing Problem: Lack of Knowledge: Goal: Understanding of ways to prevent future skin breakdown will improve Outcome: Progressing Goal: Ability to identify appropriate dietary choices will improve Outcome: Progressing Problem: Nutritional: Goal: Dietary intake will improve Outcome: Progressing Goal: Ability to maintain a balanced intake and output will improve Outcome: Progressing Problem: Skin Integrity: Goal: Risk for impaired skin integrity will decrease Outcome: Progressing Goal: Ability to demonstrate warm and dry skin will improve Outcome: Progressing Goal: Circulation will improve to fullest extent possible Outcome: Progressing Problem: Lack of Knowledge: Goal: [...] of discharge needs will improve Outcome: Progressing * Plan of Care - Asha Mcmullen RN - 03/22/2020 10:58 AM CDT Goals: Clinical Goals for the Shift: pain control, rest Problem: Activity: Goal: Mobility will improve Outcome: Progressing Problem: Lack of Knowledge: Goal: Understanding of ways to prevent future skin breakdown will improve Outcome: Progressing Goal: Ability to identify appropriate dietary choices will improve Outcome: Progressing Problem: Nutritional: Goal: Dietary intake will improve Outcome: Progressing Goal: Ability to maintain a balanced intake and output will improve Outcome: Progressing Problem: Skin Integrity: Goal: Risk for impaired skin integrity will decrease Outcome: Progressing Goal: Ability to demonstrate warm and dry skin will improve Outcome: Progressing Goal: Circulation will improve to fullest extent possible Outcome: Progressing Problem: Lack of Knowledge: Goal: Ability to state ways to decrease the risk of falls will improve Outcome: Progressing Problem: Safety: Goal: Will remain free from falls Outcome: Progressing Goal: Will remain free from injury from falls Outcome: Progressing Goal: Will remain free from falls and injury in home environment Outcome: Progressing * Plan of Care - Angelika Ochoa RN - 03/22/2020 2:33 AM CDT Goals: Clinical Goals for the Shift: pain control, rest, IS, VS, lab Summary: Patient is progressing towards established goals. * Plan of Care - Melissa Calvo RN - 03/21/2020 6:18 PM CDT Problem: Activity: Goal: Mobility will improve Outcome: Progressing Problem: Lack of Knowledge: Goal: Understanding of ways to prevent future skin breakdown will improve Outcome: Progressing Goal: Ability to identify appropriate dietary choices will improve Outcome: Progressing Problem: Nutritional: Goal: Dietary intake will improve Outcome: Progressing Goal: Ability to maintain a balanced intake and output will improve Outcome: Progressing Problem: Skin Integrity: Goal: Risk for impaired skin integrity will decrease Outcome: Progressing Goal: Ability to demonstrate warm and dry skin will improve Outcome: Progressing Goal: Circulation will improve to fullest extent possible Outcome: Progressing Problem: Lack of Knowledge: Goal: Ability to state ways to decrease the risk of falls will improve Outcome: Progressing Problem: Safety: Goal: Will remain free from falls Outcome: Progressing Goal: Will remain free from injury from falls Outcome: Progressing Goal: Will remain free from falls and injury in home environment Outcome: Progressing Goals: Clinical Goals for the Shift: pain control, remove rosales, IS, labs, VS Summary: Patient progressing towards goals * Plan of Care - Viridiana Koo RN - 03/21/2020 1:48 PM CDT CM received phone call from patient's son in law, Dr. Tima Chavez [phone] regarding patient's plan of care/discharge planning. Tima states they do not wish for patient to discharge to an acute rehab d/t covid risks and patient having a transplant history. Tima requests patient be set up with a company that does not accept Covid positive patients. JACK spoke with Suzanne at [facility] who states they cannot accept patient d/t staffing. JACK sent referrals to two other companies not accepting Covid patients, [facility] and [facility] . Tima also requesting update from patient's primaryteam. JACK notified [facility]. ADD 03/22. CM to follow for d/c planning and referrals as needed. If needed, please contact. Viridiana Fallon RN, Vocational Examiner For emergency needs from 4:31pm-7:59am, please call the sales store checker . For weekend/holiday needs from 8am-430pm, please call the Weekend Vocational Examiner . * Plan of Care - Angelika Ochoa RN - 03/21/2020 3:15 AM CDT Goals: Clinical Goals for the Shift: pain control, remove rosales, IS, labs, VS Summary: removed rosales at 0050. Waiting for first void. Patient is resting comfortably in bed. Patient is progressing towards established goals. * Plan of Care - Monika Alfaro RN - 03/20/2020 4:50 PM CDT Goals: Summary: Problem: Activity: Goal: Mobility will improve Outcome: Progressing Problem: Lack of Knowledge: Goal: Understanding of ways to prevent future skin breakdown will improve Outcome: Progressing Goal: Ability to identify appropriate dietary choices will improve Outcome: Progressing Problem: Nutritional: Goal: Dietary intake will improve Outcome: Progressing Goal: Ability to maintain a balanced intake and output will improve Outcome: Progressing Problem: Skin Integrity: Goal: Risk for impaired skin integrity will decrease Outcome: Progressing Goal: Ability to demonstrate warm and dry skin will improve Outcome: Progressing Goal: Circulation will improve to fullest extent possible Outcome: Progressing Problem: Lack of Knowledge: Goal: Ability to state ways to decrease the risk of falls will improve Outcome: Progressing Problem: Safety: Goal: Will remain free from falls Outcome: Progressing Goal: Will remain free from injury from falls Outcome: Progressing Goal: Will remain free from falls and injury in home environment Outcome: Progressing * Plan of Care - Nubia Arevalo RN - 03/20/2020 8:56 AM CDT Clinical status re/evaluated by ER case management. Pt remains in ER as a boarder,still appropriatefor IP level of care. * ED Re-evaluation Note - Pedro Salmon MD - 03/20/2020 8:41 AM CDT ED Re-evaluation Patient signed out to me by overnight TCC attending, Dr. Wiley. Please see prior documentation for full details. Briefly, patient is a: 85-year-old male with a past medical history significant for end-stage renal disease status post renal transplantation who presented status post fall. Transferred from an outside hospital. Patient with an unstable C2 fracture. Imaging including CTA pending due to concern for foramen fracture. Patient in a cervical immobilization device. Laboratory results also showed a UTI; received ceftriaxone. Plan on admission to geriatric trauma surgery. Awaiting bed assignment. A.m. meds including prednisone and Tacrolimus have been ordered. Pedro Salmon MD 03/20/20 1407 * ED Re-evaluation Note - Regina Bernard MD - 03/20/2020 7:16 AM CDT ED Re-evaluation ATTENDING TRANSITION OF CARE I, Regina Bernard MD, am taking signout from Dr. Mcelroy. I have reviewed all pertinent vital signs allergies, and history available in the chart. Summary: 85 y.o. 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 Found to have unstable C2 fx and a fracture through the foramen. CTA complete Complains of posterior TAI, no wkness, numbness, or other neuro sx. Pending: Nothing; tacro ordered for the AM Dispo: Admit to [facility]; RTR is in ED Course as of Mar 20 1448 Time: 03/19 2028 Comment: Teaching Resident Note: 85 yo F PMH renal failure d/t vasculitis s/p 2012 kidney transplant (due for ramin) who p/f OSH with C2 fracture after falling earlier today. Getting out of bed and fell, striking head on dresser. She cannot remember where she hit her head or how the fall happened. No other injuries. Per report, HCT negative but has a C2 fx on OSH CT. She here complains of posterior head and neck pain but no weakness, numbness, or other pain or neuro Sx. Ddx: known C2 fx, but per OSH CT no ICH or other C spine fx. Plan: home meds, upload OSH images, pain control, NPO, spine consult, likely admit to [facility] By: Bettye Mcelroy MD Time: 03/19 2103 Comment: Awaiting call back from spine. By: Jessi Aldana MD Time: 03/19 2129 Comment: Awaiting spine recs. at bedside By: Bettye Mcelroy MD Time: 03/19 2226 Comment: Spine wants MRI C spine and Xrays of T and L spine which will be ordered By: Bettye Mcelroy MD Time: 03/19 2233 Comment: [facility] will come see the patient. By: Jessi Aldana MD Time: 03/20 6 Comment: Pending MRIs still. at bedside By: Bettye Mcelroy MD Time: 03/20 29 Comment: Patient refused MRI. Dispo pending Spine neuro check, then will go to [facility] ([facility]) By: Stewart Mathews MD Time: 03/20 104 Comment: [facility] requested cxr By: Stewart Mathews MD Time: 03/20 121 Value: Urinalysis, microscopic only(!): WBC, ur 21-50(!) RBC, ur 0-2 Bacteria, ur 1+(!) Mucous, ur Present(!) Amorphous crystals, ur 2+(!) Culture Reflex Comment Reflex to urine culture will be performed. Comment: Will treat with ceftriaxone By: Stewart Mathews MD Time: 03/20 217 Comment: Pt now back in MRI By: Bettye Mcelroy MD Time: 03/20 333 Comment: Rads called: CT with comminuted fracture of C2 body into lateral mass on R and L and may extend to the R transverse foramen. Talking to ortho spine about plans - need to know frequency of neuro checks to determine the pt's dispo By: Bettye Mcelroy MD Time: 03/20 337 Comment: Pt back from MRI. Will get her CTX for UTI By: Bettye Mcelroy MD Time: 03/20 2211 Value: MRI Spine Cervical and Thoracic WO Contrast Comment: IMPRESSION: 1. Acute comminuted C2 vertebral body fracture extending to the right pedicle and transverse foramen, and left superior articular facet. Associated left C1-C2 facet joint injury and C1-C2 interspinous ligamentous injury. No cord signal abnormality. 2. Additional nondisplaced fracture versus bone contusion of the left lateral mass of C1. 3. Focal disruption of the anterolateral ligament at C2 level, with prevertebral hematoma/edema and trace epidural hematoma. 4. Acute compression fractures of T2 and T3 vertebral bodies, with mild height loss. 5. Degenerative changes of cervical spine as detailed above. By: Stewart Mathews MD Time: 03/20 207 Comment: Spine recommended q4 hour neuro checks as long as she remains in her current c-collar By: Stewart Mathews MD Time: 03/20 3083 Comment: Pt awaiting CTA then admit bed. She is tired but comfortable By: Bettye Mcelroy MD Time: 03/20 3356 Comment: CTA complete By: Bettye Mcelroy MD Time: 03/20 1918 Comment: Radiology called with overread from 1view CXR; ISABEL opacity concerning for possible asymmetric pulmonary edema. Recommended getting 2view CXR to further evaluate. Order placed. Patient on 2L NC presently. By: Regina Bernard MD Time: 03/20 9711 Comment: Patient reporting pain in head, neck, and back, same as prior. Will re- order dilaudid, as responded well to this earlier in the morning. Asked nurse to get CXR, as not yet performed. By: MD Regina Phan MD 03/20/20 9948 * ED Re-evaluation Note - Stewart Mathews MD - 03/19/2020 11:03 PM CDT ED Re-evaluation TRANSITION OF CARE I, Stewart Mathews MD, am taking signout and assuming care of this patient. I have reviewedall pertinent vital signs, allergies, and history available in the chart. Summary: 85 y.o. female h/o ESRD s/p transplant who presents from OSH with unstable C2 fracture. Getting out of bed and fell, hitting her head on the nightstand/dresser. Amnestic to event. Denies allother injuries. Complains of pain to posterior of head and neck, denies weakness, numbness. Pending: [facility]ushbu cadeteamelany, ortho-spine, [facility] Dispo: admit ED Course as of Mar 20 638 Time: 03/19 2028 Comment: Teaching Resident Note: 85 yo F PMH renal failure d/t vasculitis s/p 2013 kidney transplant (due for tacro) who p/f OSH with C2 fracture after falling earlier today. Getting out of bed and fell, striking head on dresser. She cannot remember where she hit her head or how the fall happened. No other injuries. Per report, HCT negative but has a C2 fx on OSH CT. She here complains of posterior head and neck pain but no weakness, numbness, or other pain or neuro Sx. Ddx: known C2 fx, but per OSH CT no ICH or other C spine fx. Plan: home meds, upload OSH images, pain control, NPO, spine consult, likely admit to [facility] By: Bettye Mcelroy MD Time: 03/19 2103 Comment: Awaiting call back from spine. By: Jessi Aldana MD Time: 03/19 2129 Comment: Awaiting spine recs. at bedside By: Bettye Mcelroy MD Time: 03/19 2226 Comment: Spine wants MRI C spine and Xrays of T and L spine which will be ordered By: Bettye Mcelroy MD Time: 03/19 2233 Comment: [facility] will come see the patient. By: Jessi Aldana MD Time: 03/20 6 Comment: Pending MRIs still. at bedside By: Bettye Mcelroy MD Time: 03/20 29 Comment: Patient refused MRI. Dispo pending Spine neuro check, then will go to [facility] ([facility]) By: Stewart Mathews MD Time: 03/20 104 Comment: [facility] requested cxr By: Stewart Mathews MD Time: 03/20 121 Value: Urinalysis, microscopic only(!): WBC, ur 21-50(!) RBC, ur 0-2 Bacteria, ur 1+(!) Mucous, ur Present(!) Amorphous crystals, ur 2+(!) Culture Reflex Comment Reflex to urine culture will be performed. Comment: Will treat with ceftriaxone By: Stewart Mathews MD Time: 03/20 217 Comment: Pt now back in MRI By: Bettye Mcelroy MD Time: 03/20 333 Comment: Rads called: CT with comminuted fracture of C2 body into lateral mass on R and L and may extend to the R transverse foramen. Talking to ortho spine about plans - need to know frequency of neuro checks to determine the pt's dispo By: Bettye Mcelroy MD Time: 03/20 337 Comment: Pt back from MRI. Will get her CTX for UTI By: Bettye Mcelroy MD Time: 03/20 436 Value: MRI Spine Cervical and Thoracic WO Contrast Comment: IMPRESSION: 1. Acute comminuted C2 vertebral body fracture extending to the right pedicle and transverse foramen, and left superior articular facet. Associated left C1-C2 facet joint injury and C1-C2 interspinous ligamentous injury. No cord signal abnormality. 2. Additional nondisplaced fracture versus bone contusion of the left lateral mass of C1. 3. Focal disruption of the anterolateral ligament at C2 level, with prevertebral hematoma/edema and trace epidural hematoma. 4. Acute compression fractures of T2 and T3 vertebral bodies, with mild height loss. 5. Degenerative changes of cervical spine as detailed above. By: Stewart Mathews MD Time: 03/20 140 Comment: Spine recommended q4 hour neuro checks as long as she remains in her current c-collar By: Stewart Mathews MD Time: 03/20 8886 Comment: Pt awaiting CTA then admit bed. She is tired but comfortable By: Bettye Mcelroy MD Final diagnoses: Fall, initial encounter Closed nondisplaced fracture of second cervical vertebra, unspecified fracture morphology, initial encounter ([facility]) Stewart Mathews MD Resident 03/20/20 0638 * ED Procedure Note - Garth Vargas MD - 03/19/2020 9:20 PM CDT Associated Order(s): ECG 12 lead Procedure ECG 12 lead Date/Time: 03/19/2020 9:20 PM Performed by: Garth Vargas MD Authorized by: Jessi Aldana MD Rate: ECG rate: 89 ECG rate assessment: normal Rhythm: Rhythm: sinus rhythm Ectopy: Ectopy: none QRS: QRS axis: Normal QRS intervals: Normal Conduction: Conduction: normal ST segments: ST segments: Normal T waves: T waves: non-specific Previous ECG: Previous ECG: Compared to current Date of previous EC08/23/2013 Similarity: No change Interpretation: Interpretation: non-specific Recommended Follow-up: Recommended follow up: further workup in the ED Comments: Biphasic T wave in V1 Garth Vargas MD 03/19/202121 * ED Pre-Arrival Note - Darlin Escalera RN - 03/19/2020 4:57 PM CDT Pre-Arrival Note 85 y/o F s/p fall with C2 fracture with possible vertebral artery involvement. PT c/o L hand pain, head and neck pain. Neuro intact at time of report. Pt accepted as Level [address] Purcell. Darlin Escalera RN documented in this encounter Plan of Treatment Not on file documented as of this encounter Procedures Procedure Name Priority Date/Time Associated Diagnosis Comments POTASSIUM, WHOLE BLOOD Routine 03/28/2020 9:38 AM CDT TACROLIMUS LEVEL, TROUGH Timed 03/28/2020 5:05 AM CDT DIFFERENTIAL AUTO Timed 03/28/2020 5:0 0 AM CDT CBC WITH AUTO DIFFERENTIAL Timed 03/28/2020 5:00 AM CDT BASIC METABOLIC PANEL Timed 03/28/2020 5:00 AM CDT TACROLIMUS LEVEL, TROUGH Routine 03/27/2020 9:07 PM CDT POCT GLUCOSE DEVICE Routine 03/27/2020 4 :05 AM CDT POCT GLUCOSE DEVICE Routine 03/27/2020 1 2:17 AM CDT TACROLIMUS LEVEL, TROUGH Routine 03/26/2020 10:33 PM CDT POCT GLUCOSE DEVICE Routine 03/26/2020 8 :14 PM CDT TACROLIMUS LEVEL, TROUGH Routine 03/26/2020 3:46 AM CDT BASIC METABOLIC PANEL Routine 03/26/2020 3:46 AM CDT TACROLIMUS LEVEL, TROUGH Routine 03/25/2020 6:37 AM CDT TACROLIMUS LEVEL, TROUGH Routine 03/24/2020 6:30 AM CDT TACROLIMUS LEVEL, TROUGH Routine 03/23/2020 6:46 AM CDT TACROLIMUS LEVEL, TROUGH Routine 03/22/2020 6:48 AM CDT XR SPINE CERVICAL 2 OR 3 VIEWS IP Routine 03/21/2020 3:58 PM CDT URINE CULTURE Routine 03/21/2020 3:36 PM CDT TACROLIMUS LEVEL, TROUGH Routine 03/21/2020 5:05 AM CDT CBC WITHOUT DIFFERENTIAL Timed 03/21/2020 5:05 AM CDT MAGNESIUM Timed 03/21/2020 5:05 AM CDT BASIC METABOLIC PANEL Timed 03/21/2020 5:05 AM CDT XR CHEST PA LATERAL 2 VIEWS ED Urgent/IP Urgent 03/20/2020 12:[address] RECON CERVICAL SPINE W CONTRAST ED 03/20/2020 6:[address] THORACIC AND LUMBAR SPINE WO CONTRAST ED 03/20/2020 6:14 AM CDT CTA HEAD NECK W WO CONTRAST ED 03/20/2020 6:14 AM CDT XR SPINE THORACIC 3 VIEWS ED Urgent/IP Urgent 03/20/2020 3:29 AM CDT XR SPINE LUMBAR 2 OR 3 VIEWS ED Urgent/IP Urgent 03/20/2020 3:28 AM CDT XR SPINE CERVICAL 2 OR 3 VIEWS ED Urgent/IP Urgent 03/20/2020 3:27 AM CDT XR CHEST 1 VIEW ED 03/20/2020 3:26 AM CDT MRI SPINE CERVICAL THORACIC WO CONTRAST ED 03/20/2020 2:45 AM CDT COVID-19 CORONAVIRUS RNA Routine 03/19/2020 10:46 PM CDT URINALYSIS AND REFLEX TO MICROSCOPIC AND CULTURE STAT 03/19/2020 10:46 PM CDT URINALYSIS, MICROSCOPIC ONLY STAT 03/19/2020 10:46 PM CDT URINE CULTURE STAT 03/19/2020 10:[address] MR OUTSIDE CONSULT Routine 03/19/2020 9:32 PM CDT Diagnosis unknown NEURO CT MR OUTSIDE CONSULT Routine 03/19/2020 9:32 PM CDT Diagnosis unknown ECG 12-LEAD STAT 03/19/2020 9:20 PM CDT DIFFERENTIAL AUTO STAT 03/19/2020 8:4 4 PM CDT CBC WITH AUTO DIFFERENTIAL STAT 03/19/2020 8:44 PM CDT APTT STAT 03/19/2020 8:44 PM CDT PROTIME-INR STAT 03/19/2020 8:44 PM CDT TYPE AND SCREEN STAT 03/19/2020 8:44 PM CDT LIPID PANEL STAT 03/19/2020 8:44 PM CDT COMPREHENSIVE METABOLIC PANEL STAT 03/19/2020 8:44 PM CDT documented in this encounter Results * Potassium, whole blood (03/28/2020 9:38 AM CDT) Potassium, bld 4.4 3.3 - 4.9 mmol/L [facility] Comment: Interpretive Data Unable to assess hemolysis. ??Invitro hemolysis causes falsely elevated potassium. Current Interpretive Data was last revised on 2020. Blood specimen (specimen) 03/28/2020 9:38 AM CDT 03/28/2020 9:49 AM CDT us Deacon Shashi Alegre MD LAB BLOOD ORDERABLES Final Result [facility] Department [place] [address] * Tacrolimus level trough (03/28/2020 5:05 AM CDT) Tacrolimus trough 6.3 ng/mL [facility] Comment: Interpretive Data Testing performed by liquid chromatography-tandem mass spectrometry. ??Therapeutic concentrations vary depending on type of transplanted organ and time elapsed since transplant. ??Typical trough concentrations range from 5-15 ng/mL. ??This test was developed and its performance characteristics determined by the [facility] consistent with CLIA requirements. ??This test has not been cleared or approved by the [place] Food and Drug administration. ??Current interpretive data last reviewed 2019. Blood specimen (specimen) 03/28/2020 5:05 AM CDT 03/28/2020 5:16 AM CDT Jameel Stacy MD LAB BLOOD ORDERABLES Fi nal Result [facility] Department [place] [address] * (ABNORMAL) Differential, auto (03/28/2020 5:00 AM CDT) Neutrophil abs 4.4 1.7 - 6.5 K/cumm [facility] Imm gran abs 0.1 0.0 - 0.1 K/cumm [facility] Lymphocyte abs 0.7(L) 0.8 - 3.3 K/cumm [facility] Monocyte abs 0.5 0.2 - 0.8 K/cumm [facility] Eosinophil abs 0.2 0.0 - 0.5 K/cumm [facility] Basophil abs 0.1 0.0 - 0.1 K/cumm [facility] Neutrophil pct 74.9 % [facility] Comment: Interpretive Data Percent cell count reference ranges are not reported, since discordance with absolute values may lead to misinterpretation of CBC data. Current Interpretive Data was last revised on 2017. Imm gran pct 1.0 % [facility] Comment: Interpretive Data Percent cell count reference ranges are not reported, since discordance with absolute values may lead to misinterpretation of CBC data. Current Interpretive Data was last revised on 2017. Lymphocyte pct 11.5 % [facility] Comment: Interpretive Data Percent cell count reference ranges are not reported, since discordance with absolute values may lead to misinterpretation of CBC data. Current Interpretive Data was last revised on 2017. Monocyte pct 9.1 % [facility] Comment: Interpretive Data Percent cell count reference ranges are not reported, since discordance with absolute values may lead to misinterpretation of CBC data. Current Interpretive Data was last revised on 2017. Eosinophil pct 2.6 % [facility] Comment: Interpretive Data Percent cell count reference ranges are not reported, since discordance with absolute values may lead to misinterpretation of CBC data. Current Interpretive Data was last revised on 2017. Basophil pct 0.9 % [facility] Comment: Interpretive Data Percent cell count reference ranges are not reported, since discordance with absolute values may lead to misinterpretation of CBC data. Current Interpretive Data was last revised on 2017. Blood specimen (specimen) 03/28/2020 5:00 AM CDT 03/28/2020 5:16 AM CDT Sammie Santiago NP LAB BLOOD ORDERABLES Final Resul t [facility] Department [place] [address] * (ABNORMAL) CBC with auto differential (03/28/2020 5:00 AM CDT) WBC 5.8 3.8 - 9.9 K/cumm [facility] Hgb 14.2 11.9 - 15.5 g/dL [facility] Hct 43.3 35.6 - 45.5 % [facility] Plt 190 150 - 400 K/cumm [facility] MPV 10.5 9.1 - 12.3 fL [facility] RBC 4.41 3.90 - 5.20 M/cumm [facility] MCV 98.2(H) 81.3 - 96.4 fL [facility] MCH 32.2 27.1 - 33.3 pg [facility] MCHC 32.8 32.3 - 35.7 g/dL [facility] RDW CV 12.4 11.1 - 14.9 % [facility] RDW SD 44.8 35.7 - 48.1 fL [facility] NRBC abs 0.00 0.00 - 0.01 K/cumm [facility] Blood specimen (specimen) 03/28/2020 5:00 AM CDT 03/28/2020 5:16 AM CDT Sammie Santiago [facility] LAB BLOOD ORDERABLES Final Resul t [facility] Department [place] [address] * (ABNORMAL) Basic metabolic panel (03/28/2020 5:00 AM CDT) Sodium 134(L) 135 - 145 mmol/L [facility] Potassium, pl 5.1(H) 3.3 - 4.9 mmol/L [facility] Chloride 101 97 - 110 mmol/L [facility] CO2 22 22 - 32 mmol/L [facility] Anion gap 11 2 - 15 mmol/L [facility] BUN 27(H) 8 - 25 mg/dL [facility] Creatinine 0.80 0.60 - 1.10 mg/dL [facility] Glucose 91 70 - 199 mg/dL [facility] Comment: Interpretive Data Fasting glucose >/= [...] 2017. Calcium 10.2 8.5 - 10.3 mg/dL [facility] Blood specimen (specimen) 03/28/2020 5:00 AM CDT 03/28/2020 5:16 AM CDT Sammie Santiago [facility] LAB BLOOD ORDERABLES Final Resul t [facility] Department [place] [address] * Tacrolimus level trough (03/27/2020 9:07 PM CDT) Tacrolimus trough 5.7 ng/mL [facility] Comment: Interpretive Data Testing performed by liquid chromatography-tandem mass spectrometry. ??Therapeutic concentrations vary depending on type of transplanted organ and time elapsed since transplant. ??Typical trough concentrations range from 5-15 ng/mL. ??This test was developed and its performance characteristics determined by the [facility] consistent with CLIA requirements. ??This test has not been cleared or approved by the [place] Food and Drug administration. ??Current interpretive data last reviewed 2019. Blood specimen (specimen) 03/27/2020 9:07 PM CDT 03/27/2020 9:29 PM CDT Sammie Santiago NP LAB BLOOD ORDERABLES Final Resul t Performing Organization Address [facility] de Phone Number [facility] [place] [address] * POCT glucose (03/27/2020 4:05 AM CDT) Glucose, POC 95 70 - 199 mg/dL [facility] Blood specimen (specimen) 03/27/2020 4:05 AM CDT 03/27/2020 4:05 AM CDT Deacon Shashi Alegre MD LAB POCT ORDERABLES - DEVIC E Final Result Performing Organization Address [facility] Co de Phone Number [facility] Department [place] [address] * POCT glucose (03/27/2020 12:17 AM CDT) Glucose, POC 107 70 - 199 mg/dL [facility] Blood specimen (specimen) 03/27/2020 12:17 AM CDT 03/27/2020 12:17 AM CDT Deacon Shashi Alegre MD LAB POCT ORDERABLES - DEVIC E Final Result Performing Organization Address [facility] Co de Phone Number [facility] Department [place] [address] * Tacrolimus level trough (03/26/2020 10:33 PM CDT) [facility] Tacrolimus trough 6.7 ng/mL [facility] Comment: Interpretive Data Testing performed by liquid chromatography-tandem mass spectrometry. ??Therapeutic concentrations vary depending on type of transplanted organ and time elapsed since transplant. ??Typical trough concentrations range from 5-15 ng/mL. ??This test was developed and its performance characteristics determined by the [facility] consistent with CLIA requirements. ??This test has not been cleared or approved by the [place] Food and Drug administration. ??Current interpretive data last reviewed 2019. Blood specimen (specimen) 03/26/2020 10:33 PM CDT 03/26/2020 11:38 PM CDT Sammie Santiago NP LAB BLOOD ORDERABLES Final Resul t Performing Organization Address City/[facility]/ZIP Co de Phone Number [facility] [place] [address] * POCT glucose (03/26/2020 8:14 PM CDT) [facility] Glucose, POC 131 70 - 199 mg/dL [facility] Blood specimen (specimen) 03/26/2020 8:14 PM CDT 03/26/2020 8:14 PM CDT Deacon Shashi Alegre MD LAB POCT ORDERABLES - DEVIC E Final Result [facility] [place] [address] * (ABNORMAL) Basic metabolic panel (03/26/2020 3:46 AM CDT) [facility] Sodium 138 135 - 145 mmol/L [facility] Potassium, pl 4.6 3.3 - 4.9 mmol/L [facility] Chloride 105 97 - 110 mmol/L [facility] CO2 24 22 - 32 mmol/L [facility] Anion gap 9 2 - 15 mmol/L [facility] BUN 27(H) 8 - 25 mg/dL [facility] Creatinine 0.88 0.60 - 1.10 mg/dL [facility] Glucose 94 70 - 199 mg/dL [facility] Comment: Interpretive Data Fasting glucose >/= [...] interpretive data was last revised 2017. Calcium 10.1 8.5 - 10.3 mg/dL [facility] Blood specimen (specimen) 03/26/2020 3:46 AM CDT 03/26/2020 4:05 AM CDT Sammie Santiago NP LAB BLOOD ORDERABLES Final Resul t [facility] Department [place] [address] * Tacrolimus level trough (03/26/2020 3:46 AM CDT) [facility] Tacrolimus trough 6.9 ng/mL [facility] Comment: Interpretive Data Testing performed by liquid chromatography-tandem mass spectrometry. ??Therapeutic concentrations vary depending on type of transplanted organ and time elapsed since transplant. ??Typical trough concentrations range from 5-15 ng/mL. ??This test was developed and its performance characteristics determined by the [facility] consistent with CLIA requirements. ??This test has not been cleared or approved by the [place] Food and Drug administration. ??Current interpretive data last reviewed 2019. Blood specimen (specimen) 03/26/2020 3:46 AM CDT 03/26/2020 4:05 AM CDT Sammie Pamela [facility] LAB BLOOD ORDERABLES Final Resul t Performing Organization Address [facility] de Phone Number [facility] [address] * Tacrolimus level trough (03/25/2020 6:37 AM CDT) Tacrolimus trough 7.0 ng/mL [facility] Comment: Interpretive Data Testing performed by liquid chromatography-tandem mass spectrometry. ??Therapeutic concentrations vary depending on type of transplanted organ and time elapsed since transplant. ??Typical trough concentrations range from 5-15 ng/mL. ??This test was developed and its performance characteristics determined by the [facility] consistent with CLIA requirements. ??This test has not been cleared or approved by the [place] Food and Drug administration. ??Current interpretive data last reviewed 2019. Blood specimen (specimen) 03/25/2020 6:37 AM CDT 03/25/2020 6:44 AM CDT Sammie Pamela LAB BLOOD ORDERABLES Final Resul t Performing Organization Address [facility] de Phone Number [facility] [place] [address] * Tacrolimus level trough (03/24/2020 6:30 AM CDT) Tacrolimus trough 6.0 ng/mL [facility] Comment: Interpretive Data Testing performed by liquid chromatography-tandem mass spectrometry. ??Therapeutic concentrations vary depending on type of transplanted organ and time elapsed since transplant. ??Typical trough concentrations range from 5-15 ng/mL. ??This test was developed and its performance characteristics determined by the [facility] consistent with CLIA requirements. ??This test has not been cleared or approved by the [place] Food and Drug administration. ??Current interpretive data last reviewed 2019. Blood specimen (specimen) 03/24/2020 6:30 AM CDT 03/24/2020 6:46 AM CDT Sammie Santiago [facility] LAB BLOOD ORDERABLES Final Resul t Performing Organization Address [facility] de Phone Number [facility] [place] [address] * Tacrolimus level trough (03/23/2020 6:46 AM CDT) Tacrolimus trough 5.9 ng/mL [facility] Comment: Interpretive Data Testing performed by liquid chromatography-tandem mass spectrometry. ??Therapeutic concentrations vary depending on type of transplanted organ and time elapsed since transplant. ??Typical trough concentrations range from 5-15 ng/mL. ??This test was developed and its performance characteristics determined by the [facility] consistent with CLIA requirements. ??This test has not been cleared or approved by the [place] Food and Drug administration. ??Current interpretive data last reviewed 2019. Blood specimen (specimen) 03/23/2020 6:46 AM CDT 03/23/2020 6:55 AM CDT Sammie Santiago LAB BLOOD ORDERABLES Final Resul t Performing Organization Address [facility] de Phone Number [facility] [address] * Tacrolimus level trough (03/22/2020 6:48 AM CDT) Tacrolimus trough 9.1 ng/mL [facility] Comment: Interpretive Data Testing performed by liquid chromatography-tandem mass spectrometry. ??Therapeutic concentrations vary depending on type of transplanted organ and time elapsed since transplant. ??Typical trough concentrations range from 5-15 ng/mL. ??This test was developed and its performance characteristics determined by the [facility] consistent with CLIA requirements. ??This test has not been cleared or approved by the [place] Food and Drug administration. ??Current interpretive data last reviewed 2019. Blood specimen (specimen) 03/22/2020 6:48 AM CDT 03/22/2020 6:59 AM CDT Sammie Santiago [facility] LAB BLOOD ORDERABLES Final Resul t [facility] Department [place] [address] * XR Spine Cervical 2 or 3 Views (03/21/2020 3:58 PM CDT) Anatomical Region Laterality Modality Spine N/A Computed Radiogr aphy 03/21/2020 4:17 PM CDT Impressions 03/21/2020 4:17 PM CDT Nondisplaced fracture of the dens, better seen on prior CT, with mild prevertebral soft tissue swelling Electronically signed by: Diane Moreno M.D. Narrative 03/21/2020 4:17 PM CDT EXAMINATION: XR SPINE CERVICAL 2 OR 3 VIEWS HISTORY: C2 fracture FINDINGS: 2 views of the cervical spine are submitted on 3 exposures with comparison to prior CT dated 03/20/2020. There is a nondisplaced fracture of the dens without atlantodental interval widening. There is mild associated prevertebral soft tissue swelling. The fracture is obscured on the frontal view. Vertebral heights are otherwise normal. Severe degenerative disc disease is present at C5-6. There is multilevel facet arthropathy. Carotid artery calcifications are noted. Procedure Note Diane Moreno MD - 03/21/2020 EXAMINATION: XR SPINE CERVICAL 2 OR 3 VIEWS HISTORY: C2 fracture FINDINGS: 2 views of the cervical spine are submitted on 3 exposures with comparison to prior CT dated 03/20/2020. There is a nondisplaced fracture of the dens without atlantodental interval widening. There is mild associated prevertebral soft tissue swelling. The fracture is obscured on the frontal view. Vertebral heights are otherwise normal. Severe degenerative disc disease is present at C5-6. There is multilevel facet arthropathy. Carotid artery calcifications are noted. IMPRESSION: Nondisplaced fracture of the dens, better seen on prior CT, with mild prevertebral soft tissue swelling Electronically signed by: Diane Moreno M.D. us Sammie Santiago [facility] IMG XR PROCEDURES Final Result * Urine culture Urine, clean voided (03/21/2020 3:36 PM CDT) Report Final Report: Less than 100,000 colonies/mL (clinically insignificant growth based on current clinical standards) [facility] Organism (CLINICALLY INSIGNIFICANT GROWTH [facility] Urine, clean voided 03/21/2020 3:36 PM CDT 03/21/2020 7:54 PM CDT Narrative [facility] - 03/23/2020 11:00 AM CDT Specimen received in a sterile container. Indications for Culture:->Recent positive UA Testing performed by [facility] Microbiology Laboratory ([phone]) Deacon Shashi Alegre MD LAB MICROBIOLOGY - GENERAL ORDERABLES Final Result Performing Organization Address [facility] de Phone Number [facility] Department [place] [address] * Tacrolimus level trough (03/21/2020 5:05 AM CDT) [facility] Tacrolimus trough 17.6 ng/mL [facility] Comment: Interpretive Data Testing performed by liquid chromatography-tandem mass spectrometry. ??Therapeutic concentrations vary depending on type of transplanted organ and time elapsed since transplant. ??Typical trough concentrations range from 5-15 ng/mL. ??This test was developed and its performance characteristics determined by the [facility] consistent with CLIA requirements. ??This test has not been cleared or approved by the [place] Food and Drug administration. ??Current interpretive data last reviewed 2019. Blood specimen (specimen) 03/21/2020 5:05 AM CDT 03/21/2020 5:34 AM CDT Sammie Santiago NP LAB BLOOD ORDERABLES Final Resul t Performing Organization Address [facility] de Phone Number [facility] Department [place] [address] * Magnesium (03/21/2020 5:05 AM CDT) Magnesium 1.7 1.4 - 2.5 mg/dL [facility] Blood specimen (specimen) 03/21/2020 5:05 AM CDT 03/21/2020 5:34 AM CDT us Sammie Santiago [facility] LAB BLOOD ORDERABLES Final Resul t Performing Organization Address [facility] de Phone Number [facility] Department [place] [address] * (ABNORMAL) CBC without differential (03/21/2020 5:05 AM CDT) [facility] WBC 9.5 3.8 - 9.9 K/cumm [facility] Hgb 13.2 11.9 - 15.5 g/dL [facility] Hct 40.4 35.6 - 45.5 % [facility] Plt 121(L) 150 - 400 K/cumm [facility] MPV 10.8 9.1 - 12.3 fL [facility] RBC 4.03 3.90 - 5.20 M/cumm [facility] MCV 100.2(H) 81.3 - 96.4 fL [facility] MCH 32.8 27.1 - 33.3 pg [facility] MCHC 32.7 32.3 - 35.7 g/dL [facility] RDW CV 12.4 11.1 - 14.9 % [facility] RDW SD 46.5 35.7 - 48.1 fL [facility] NRBC abs 0.00 0.00 - 0.01 K/cumm [facility] Blood specimen (specimen) 03/21/2020 5:05 AM CDT 03/21/2020 5:34 AM CDT us Sammie Santiago [facility] LAB BLOOD ORDERABLES Final Resul t Performing Organization Address City/[facility] Co de Phone Number [facility] Department [place] [address] * (ABNORMAL) Basic metabolic panel (03/21/2020 5:05 AM CDT) Sodium 137 135 - 145 mmol/L [facility] Potassium, pl 4.9 3.3 - 4.9 mmol/L [facility] Chloride 106 97 - 110 mmol/L [facility] CO2 21(L) 22 - 32 mmol/L [facility] Anion gap 10 2 - 15 mmol/L [facility] BUN 32(H) 8 - 25 mg/dL [facility] Creatinine 0.86 0.60 - 1.10 mg/dL [facility] Glucose 124 70 - 199 mg/dL [facility] Comment: Interpretive Data Fasting glucose >/= [...] interpretive data was last revised 2017. Calcium 9.9 8.5 - 10.3 mg/dL [facility] Blood specimen (specimen) 03/21/2020 5:05 AM CDT 03/21/2020 5:34 AM CDT us Sammie Santiago NP LAB BLOOD ORDERABLES Final Resul t [facility] Department [place] [address] * XR Chest 2 views (03/20/2020 12:49 PM CDT) Anatomical Region Laterality Modality Body, Chest N/A Computed Radiogr aphy 03/20/2020 12:5 8 PM CDT Impressions 03/20/2020 12:58 PM CDT Comparison is made to prior study performed earlier today at 3:15 AM. In the interval, there has been no change in mild blunting of the costophrenic angles which may represent tiny pleural effusions. Heart size is moderately enlarged. Mild basilar atelectasis is seen. On the lateral projection note is made of mild basilar pulmonary edema. No pneumothorax is seen. Previously seen upper lung airspace opacities note not seen. Electronically signed by: Melecio Holland M.D. Narrative 03/20/2020 12:58 PM CDT EXAMINATION: 2 view chest radiograph Procedure Note Melecio Holland MD - 03/20/2020 EXAMINATION: 2 view chest radiograph IMPRESSION: Comparison is made to prior study performed earlier today at 3:15 AM. In the interval, there has been no change in mild blunting of the costophrenic angles which may represent tiny pleural effusions. Heart size is moderately enlarged. Mild basilar atelectasis is seen. On the lateral projection note is made of mild basilar pulmonary edema. No pneumothorax is seen. Previously seen upper lung airspace opacities note not seen. Electronically signed by: Melecio Holland M.D. us Regina Bernard MD IMG XR PROCEDURE S Final Result * CT Recon Cervical Spine W Contrast (03/20/2020 6:14 AM CDT) Anatomical Region Laterality Modality Spine N/A Computed Tomogra phy 03/20/2020 8:03 AM CDT Impressions 03/20/2020 9:22 AM CDT 1. ??C2 comminuted vertebral body fracture with involvement of the lateral masses and right pedicle. 2. ??No acute fracture the thoracic or lumbar spine. ??Mild T3 vertebral body height loss, likely chronic given absence of edema on the contemporaneous MRI. Addendum: there is T3 edema on the MR suggestive of an acute compression fracture. ??AlthoughT2 vertebral body and left lateral mass of C1 have marrow edema as seen on MR, no fracture is clearly seen on the CT suggestive of occult fractures. Dictated by: Gerber Cruz M.D. The radiology attending physician has personally reviewed this study, and had reviewed and/or edited this written report and agrees with it. Electronically signed by: Danna Ying M.D. Narrative 03/20/2020 9:22 AM CDT EXAMINATION: Noncontrast head CT CT of the cervical spine with contrast CT of the thoracic spine without contrast CT of the lumbar spine without contrast HISTORY: Trauma. TECHNIQUE: Computed tomography of the thoracic and lumbar spine was performed without contrast according to standard protocol. Dedicated reconstructions of the cervical spine were generated using data from a CT of the head and neck acquired with intravenous contrast according to CT angiography protocol. COMPARISON: Prior CT dated 03/19/2020 FINDINGS: CERVICAL SPINE: Redemonstrated comminuted C2 fracture with extension into the lateral masses and right pedicle. ??There is mild anterolisthesis of C4 on C5. Vertebral bodies are normal in height without compression fractures. Multilevel degenerative disc disease is present, worst and severe at C5-C6. There is no spinal canal stenosis. The craniocervical junction is normal. The facets are normal. The uncovertebral joints are normal without foraminal stenosis. Dependent atelectasis is visualized within the visualized portions of the lungs with a small left pleural effusion. THORACIC SPINE: There are 12 rib-bearing thoracic vertebrae. The alignment of the thoracic spine is normal. There is no acute fracture. There is mild height loss of the T3 vertebral body without associated edema on the contemporaneous MRI suggesting a chronic fracture. Intervertebral disk heights are normal. There is no spinal canal stenosis. The facets are normal. The thoracic aorta is normal. No soft tissue abnormality is identified. LUMBAR SPINE: The alignment of the lumbar spine is normal. 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 Vertebral bodies are normal in height without compression fractures. Intervertebral disk heights are normal. There is no spinal canal stenosis. The facets are normal. The abdominal aorta is normal. No soft tissue abnormality is identified. Procedure Note VoDanna MD - 03/20/2020 EXAMINATION: Noncontrast head CT CT of the cervical spine with contrast CT of the thoracic spine without contrast CT of the lumbar spine without contrast HISTORY: Trauma. TECHNIQUE: Computed tomography of the thoracic and lumbar spine was performed without contrast according to standard protocol. Dedicated reconstructions of the cervical spine were generated using data from a CT of the head and neck acquired with intravenous contrast according to CT angiography protocol. COMPARISON: Prior CT dated 03/19/2020 FINDINGS: CERVICAL SPINE: Redemonstrated comminuted C2 fracture with extension into the lateral masses and right pedicle. There is mild anterolisthesis of C4 on C5. Vertebral bodies are normal in height without compression fractures. Multilevel degenerative disc disease is present, worst and severe at C5-C6. There is no spinal canal stenosis. The craniocervical junction is normal. The facets are normal. The uncovertebral joints are normal without foraminal stenosis. Dependent atelectasis is visualized within the visualized portions of the lungs with a small left pleural effusion. THORACIC SPINE: There are 12 rib-bearing thoracic vertebrae. The alignment of the thoracic spine is normal. There is no acute fracture. There is mild height loss of the T3 vertebral body without associated edema on the contemporaneous MRI suggesting a chronic fracture. Intervertebral disk heights are normal. There is no spinal canal stenosis. The facets are normal. The thoracic aorta is normal. No soft tissue abnormality is identified. LUMBAR SPINE: The alignment of the lumbar spine is normal. 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 Vertebral bodies are normal in height without compression fractures. Intervertebral disk heights are normal. There is no spinal canal stenosis. The facets are normal. The abdominal aorta is normal. No soft tissue abnormality is identified. IMPRESSION: 1. C2 comminuted vertebral body fracture with involvement of the lateral masses and right pedicle. 2. No acute fracture the thoracic or lumbar spine. Mild T3 vertebral body height loss, likely chronic given absence of edema on the contemporaneous MRI. Addendum: there is T3 edema on the MR suggestive of an acute compression fracture. AlthoughT2 vertebral body and left lateral mass of C1 have marrow edema as seen on MR, no fracture is clearly seen on the CT suggestive of occult fractures. Dictated by: Gebrer Cruz M.D. The radiology attending physician has personally reviewed this study, and had reviewed and/or edited this written report and agrees with it. Electronically signed by: Danna Ying M.D. Stewart Mathews MD IM CT PROCEDURES Paty l Result * CT Thoracic and Lumbar Spine WO Contrast (03/20/2020 6:14 AM CDT) Anatomical Region Laterality Modality Spine N/A Computed Tomogra phy 03/20/2020 8:03 AM CDT Impressions 03/20/2020 9:22 AM CDT 1. ??C2 comminuted vertebral body fracture with involvement of the lateral masses and right pedicle. 2. ??No acute fracture the thoracic or lumbar spine. ??Mild T3 vertebral body height loss, likely chronic given absence of edema on the contemporaneous MRI. Addendum: there is T3 edema on the MR suggestive of an acute compression fracture. ??AlthoughT2 vertebral body and left lateral mass of C1 have marrow edema as seen on MR, no fracture is clearly seen on the CT suggestive of occult fractures. Dictated by: Gerber Cruz M.D. The radiology attending physician has personally reviewed this study, and had reviewed and/or edited this written report and agrees with it. Electronically signed by: Danna Ying M.D. Narrative 03/20/2020 9:22 AM CDT EXAMINATION: Noncontrast head CT CT of the cervical spine with contrast CT of the thoracic spine without contrast CT of the lumbar spine without contrast HISTORY: Trauma. TECHNIQUE: Computed tomography of the thoracic and lumbar spine was performed without contrast according to standard protocol. Dedicated reconstructions of the cervical spine were generated using data from a CT of the head and neck acquired with intravenous contrast according to CT angiography protocol. COMPARISON: Prior CT dated 03/19/2020 FINDINGS: CERVICAL SPINE: Redemonstrated comminuted C2 fracture with extension into the lateral masses and right pedicle. ??There is mild anterolisthesis of C4 on C5. Vertebral bodies are normal in height without compression fractures. Multilevel degenerative disc disease is present, worst and severe at C5-C6. There is no spinal canal stenosis. The craniocervical junction is normal. The facets are normal. The uncovertebral joints are normal without foraminal stenosis. Dependent atelectasis is visualized within the visualized portions of the lungs with a small left pleural effusion. THORACIC SPINE: There are 12 rib-bearing thoracic vertebrae. The alignment of the thoracic spine is normal. There is no acute fracture. There is mild height loss of the T3 vertebral body without associated edema on the contemporaneous MRI suggesting a chronic fracture. Intervertebral disk heights are normal. There is no spinal canal stenosis. The facets are normal. The thoracic aorta is normal. No soft tissue abnormality is identified. LUMBAR SPINE: The alignment of the lumbar spine is normal. 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 Vertebral bodies are normal in height without compression fractures. Intervertebral disk heights are normal. There is no spinal canal stenosis. The facets are normal. The abdominal aorta is normal. No soft tissue abnormality is identified. Procedure Note Danna Ying MD - 03/20/2020 EXAMINATION: Noncontrast head CT CT of the cervical spine with contrast CT of the thoracic spine without contrast CT of the lumbar spine without contrast HISTORY: Trauma. TECHNIQUE: Computed tomography of the thoracic and lumbar spine was performed without contrast according to standard protocol. Dedicated reconstructions of the cervical spine were generated using data from a CT of the head and neck acquired with intravenous contrast according to CT angiography protocol. COMPARISON: Prior CT dated 03/19/2020 FINDINGS: CERVICAL SPINE: Redemonstrated comminuted C2 fracture with extension into the lateral masses and right pedicle. There is mild anterolisthesis of C4 on C5. Vertebral bodies are normal in height without compression fractures. Multilevel degenerative disc disease is present, worst and severe at C5-C6. There is no spinal canal stenosis. The craniocervical junction is normal. The facets are normal. The uncovertebral joints are normal without foraminal stenosis. Dependent atelectasis is visualized within the visualized portions of the lungs with a small left pleural effusion. THORACIC SPINE: There are 12 rib-bearing thoracic vertebrae. The alignment of the thoracic spine is normal. There is no acute fracture. There is mild height loss of the T3 vertebral body without associated edema on the contemporaneous MRI suggesting a chronic fracture. Intervertebral disk heights are normal. There is no spinal canal stenosis. The facets are normal. The thoracic aorta is normal. No soft tissue abnormality is identified. LUMBAR SPINE: The alignment of the lumbar spine is normal. 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 Vertebral bodies are normal in height without compression fractures. Intervertebral disk heights are normal. There is no spinal canal stenosis. The facets are normal. The abdominal aorta is normal. No soft tissue abnormality is identified. IMPRESSION: 1. C2 comminuted vertebral body fracture with involvement of the lateral masses and right pedicle. 2. No acute fracture the thoracic or lumbar spine. Mild T3 vertebral body height loss, likely chronic given absence of edema on the contemporaneous MRI. Addendum: there is T3 edema on the MR suggestive of an acute compression fracture. AlthoughT2 vertebral body and left lateral mass of C1 have marrow edema as seen on MR, no fracture is clearly seen on the CT suggestive of occult fractures. Dictated by: Gerber Cruz M.D. The radiology attending physician has personally reviewed this study, and had reviewed and/or edited this written report and agrees with it. Electronically signed by: Danna Ying M.D. us Stewart Mathews MD [facility] [place] PROCEDURES Paty l Result * CTA Head Neck W WO Contrast (03/20/2020 6:14 AM CDT) Anatomical Region Laterality Modality Head and Neck N/A Computed Tomogra phy 03/20/2020 7:34 AM CDT Impressions 03/20/2020 9:23 AM CDT 1. ??No acute intracranial abnormality. 2. ??No large vessel occlusion or vascular injury. 3. ??C2 vertebral body fracture extending into the lateral masses and right pedicle. Dictated by: Gerber Cruz M.D. The radiology attending physician has personally reviewed this study, and had reviewed and/or edited this written report and agrees with it. Electronically signed by: Danna Ying M.D. Narrative 03/20/2020 9:23 AM CDT EXAMINATION: Computed tomography angiography (CTA) of the head without and with contrast Computed tomography angiography (CTA) of the neck with contrast HISTORY: Fall. TECHNIQUE: Computed tomography of the head was performed without contrast according to standard protocol. Computed tomographic angiography was then obtained from the aortic arch to the vertex following the uneventful administration of intravenous contrast. 3D images were generated on a dedicated workstation. Contrast information: 100 mL Optiray-350 COMPARISON: None available. FINDINGS: Periventricular white matter hypoattenuation is present and is nonspecific but likely secondary to chronic microvascular disease. There is no acute intracranial hemorrhage . Ventricles are of normal size and morphology. No mass effect or midline shift is present. The berry-white matter differentiation is normal. The visualized portions of the orbits are normal. The visualized portions of the mastoids are normal. The visualized portions of the paranasal sinuses are normal. No fractures are identified. Scattered subcentimeter lymph nodes are seen in the neck. None are pathologically enlarged or abnormally enhancing. The muscles of the neck are normal. Fascial planes are preserved and the deep spaces of the neck are normal. The visualized airway is widely patent. A C2 vertebral body fracture is present with extension to the lateral masses of C2 and the right pedicle. ??The spinal canal is normal in caliber. Intervertebral disk heights are normal. Neural foramina are normal. A small left pleural effusion with dependent atelectasis. Angiographic findings: The visualized aortic arch appears normal with normal configuration of the great vessels. The innominate artery and both subclavian arteries are normal in course and caliber. The common carotid arteries are normal in course and caliber with normal carotid bifurcations bilaterally. The course and caliber of the internal carotid arteries are normal. There is mild calcified atherosclerotic disease of the intracranial internal carotid artery and bilateral carotid bulbs without significant stenosis. There is origin of the bilateral crown and bridge dental lab technician. The anterior and middle cerebral arteries are normal. The right vertebral artery is dominant with termination of the left vertebral artery into the posterior inferior cerebellar artery. The basilar artery is normal. The posterior cerebral arteries are normal. There is no aneurysm or vascular malformation identified. Procedure Note VoDanna MD - 03/20/2020 EXAMINATION: Computed tomography angiography (CTA) of the head without and with contrast Computed tomography angiography (CTA) of the neck with contrast HISTORY: Fall. TECHNIQUE: Computed tomography of the head was performed without contrast according to standard protocol. Computed tomographic angiography was then obtained from the aortic arch to the vertex following the uneventful administration of intravenous contrast. 3D images were generated on a dedicated workstation. Contrast information: 100 mL Optiray-350 COMPARISON: None available. FINDINGS: Periventricular white matter hypoattenuation is present and is nonspecific but likely secondary to chronic microvascular disease. There is no acute intracranial hemorrhage . Ventricles are of normal size and morphology. No mass effect or midline shift is present. The berry-white matter differentiation is normal. The visualized portions of the orbits are normal. The visualized portions of the mastoids are normal. The visualized portions of the paranasal sinuses are normal. No fractures are identified. Scattered subcentimeter lymph nodes are seen in the neck. None are pathologically enlarged or abnormally enhancing. The muscles of the neck are normal. Fascial planes are preserved and the deep spaces of the neck are normal. The visualized airway is widely patent. A C2 vertebral body fracture is present with extension to the lateral masses of C2 and the right pedicle. The spinal canal is normal in caliber. Intervertebral disk heights are normal. Neural foramina are normal. A small left pleural effusion with dependent atelectasis. Angiographic findings: The visualized aortic arch appears normal with normal configuration of the great vessels. The innominate artery and both subclavian arteries are normal in course and caliber. The common carotid arteries are normal in course and caliber with normal carotid bifurcations bilaterally. The course and caliber of the internal carotid arteries are normal. There is mild calcified atherosclerotic disease of the intracranial internal carotid artery and bilateral carotid bulbs without significant stenosis. There is origin of the bilateral crown and bridge dental lab technician. The anterior and middle cerebral arteries are normal. The right vertebral artery is dominant with termination of the left vertebral artery into the posterior inferior cerebellar artery. The basilar artery is normal. The posterior cerebral arteries are normal. There is no aneurysm or vascular malformation identified. IMPRESSION: 1. No acute intracranial abnormality. 2. No large vessel occlusion or vascular injury. 3. C2 vertebral body fracture extending into the lateral masses and right pedicle. Dictated by: Gerber Cruz M.D. The radiology attending physician has personally reviewed this study, and had reviewed and/or edited this written report and agrees with it. Electronically signed by: Danna Ying M.D. Stewart Mathews MD IMG CT PROCEDURES Paty l Result * XR Spine Thoracic 3 Vw (03/20/2020 3:29 AM CDT) Anatomical Region Laterality Modality Spine N/A Computed Radiogr aphy 03/20/2020 3:46 AM CDT Impressions 03/20/2020 10:04 AM CDT Cervical spine: 4 views were submitted. ??Study is limited due to a poor open-mouth view. ??There is prevertebral soft tissue swelling. Patient's known C2 fracture is better demonstrated on the CT. ??Severe degenerative disc disease at C4-C5. ??Heavy calcification of the carotid bulbs is noted. Thoracic spine: 4 views were submitted. ??Alignment is normal. ??There is very mild age indeterminant wedging at the mid thoracic spine. Otherwise, the vertebral body heights are normal. Lumbar spine: 3 views were submitted. ??Alignment is normal. Vertebral body heights are normal. ??No acute fractures. ?? Chest: There is diffuse opacity bilaterally, which are favored to be due to overlying soft tissue. ??However, if clinically concern for acute pulmonary processes, finding could be further evaluated with a two-view chest radiograph. ??There is no pneumothorax. ??Mediastinal contours are normal. ??Mitral annulus calcifications noted ADDENDUM - This addendum is being placed on the report for a time dependent finding on a patient who is admitted to the hospital (2B). There is left upper lobe opacity, which could be due to asymmetric pulmonary edema. ??If clinically indicated, 2 view chest radiograph or chest CT can be ordered for further evaluation. These findings were communicated to Dr. Regina Zaldivar by Deepti Mesa at 7:21 AM on 03/20/2020. Dictated by: Deepti Mesa M.D. The radiology attending physician has personally reviewed this study, and had reviewed and/or edited this written report and agrees with it. Electronically signed by: Melecio Holland M.D. Narrative 03/20/2020 10:04 AM CDT EXAMINATION: XR SPINE THORACIC 3 VIEWS, XR SPINE LUMBAR 2 OR 3 VIEWS, XR CHEST 1 VIEW, XR SPINE CERVICAL 2 OR 3 VIEWS HISTORY: Outside hospital transfer for C2 fracture COMPARISON: 03/19/2020 CT and 03/08/2013 chest radiograph Procedure Note Melecio Holland MD - 03/20/2020 EXAMINATION: XR SPINE THORACIC 3 VIEWS, XR SPINE LUMBAR 2 OR 3 VIEWS, XR CHEST 1 VIEW, XR SPINE CERVICAL 2 OR 3 VIEWS HISTORY: Outside hospital transfer for C2 fracture COMPARISON: 03/19/2020 CT and 03/08/2013 chest radiograph IMPRESSION: Cervical spine: 4 views were submitted. Study is limited due to a poor open-mouth view. There is prevertebral soft tissue swelling. Patient's known C2 fracture is better demonstrated on the CT. Severe degenerative disc disease at C4-C5. Heavy calcification of the carotid bulbs is noted. Thoracic spine: 4 views were submitted. Alignment is normal. There is very mild age indeterminant wedging at the mid thoracic spine. Otherwise, the vertebral body heights are normal. Lumbar spine: 3 views were submitted. Alignment is normal. Vertebral body heights are normal. No acute fractures. Chest: There is diffuse opacity bilaterally, which are favored to be due to overlying soft tissue. However, if clinically concern for acute pulmonary processes, finding could be further evaluated with a two-view chest radiograph. There is no pneumothorax. Mediastinal contours are normal. Mitral annulus calcifications noted ADDENDUM - This addendum is being placed on the report for a time dependent finding on a patient who is admitted to the hospital (2B). There is left upper lobe opacity, which could be due to asymmetric pulmonary edema. If clinically indicated, 2 view chest radiograph or chest CT can be ordered for further evaluation. These findings were communicated to Dr. Regina Zaldivar by Deepti Mesa at 7:21 AM on 03/20/2020. Dictated by: Deepti Mesa M.D. The radiology attending physician has personally reviewed this study, and had reviewed and/or edited this written report and agrees with it. Electronically signed by: Melecio Holland M.D. us Garth Vargas MD IMG XR PROCEDURES Fin al Result * XR Spine Lumbar 2 or 3 Views (03/20/2020 3:28 AM CDT) Anatomical Region Laterality Modality Spine N/A Computed Radiogr aphy 03/20/2020 3:46 AM CDT Impressions 03/20/2020 10:04 AM CDT Cervical spine: 4 views were submitted. ??Study is limited due to a poor open-mouth view. ??There is prevertebral soft tissue swelling. Patient's known C2 fracture is better demonstrated on the CT. ??Severe degenerative disc disease at C4-C5. ??Heavy calcification of the carotid bulbs is noted. Thoracic spine: 4 views were submitted. ??Alignment is normal. ??There is very mild age indeterminant wedging at the mid thoracic spine. Otherwise, the vertebral body heights are normal. Lumbar spine: 3 views were submitted. ??Alignment is normal. Vertebral body heights are normal. ??No acute fractures. ?? Chest: There is diffuse opacity bilaterally, which are favored to be due to overlying soft tissue. ??However, if clinically concern for acute pulmonary processes, finding could be further evaluated with a two-view chest radiograph. ??There is no pneumothorax. ??Mediastinal contours are normal. ??Mitral annulus calcifications noted ADDENDUM - This addendum is being placed on the report for a time dependent finding on a patient who is admitted to the hospital (2B). There is left upper lobe opacity, which could be due to asymmetric pulmonary edema. ??If clinically indicated, 2 view chest radiograph or chest CT can be ordered for further evaluation. These findings were communicated to Dr. Regina Zaldivar by Deepti Mesa at 7:21 AM on 03/20/2020. Dictated by: Deepti Mesa M.D. The radiology attending physician has personally reviewed this study, and had reviewed and/or edited this written report and agrees with it. Electronically signed by: Melecio Holland M.D. Narrative 03/20/2020 10:04 AM CDT EXAMINATION: XR SPINE THORACIC 3 VIEWS, XR SPINE LUMBAR 2 OR 3 VIEWS, XR CHEST 1 VIEW, XR SPINE CERVICAL 2 OR 3 VIEWS HISTORY: Outside hospital transfer for C2 fracture COMPARISON: 03/19/2020 CT and 03/08/2013 chest radiograph Procedure Note Melecio Holland MD - 03/20/2020 EXAMINATION: XR SPINE THORACIC 3 VIEWS, XR SPINE LUMBAR 2 OR 3 VIEWS, XR CHEST 1 VIEW, XR SPINE CERVICAL 2 OR 3 VIEWS HISTORY: Outside hospital transfer for C2 fracture COMPARISON: 03/19/2020 CT and 03/08/2013 chest radiograph IMPRESSION: Cervical spine: 4 views were submitted. Study is limited due to a poor open-mouth view. There is prevertebral soft tissue swelling. Patient's known C2 fracture is better demonstrated on the CT. Severe degenerative disc disease at C4-C5. Heavy calcification of the carotid bulbs is noted. Thoracic spine: 4 views were submitted. Alignment is normal. There is very mild age indeterminant wedging at the mid thoracic spine. Otherwise, the vertebral body heights are normal. Lumbar spine: 3 views were submitted. Alignment is normal. Vertebral body heights are normal. No acute fractures. Chest: There is diffuse opacity bilaterally, which are favored to be due to overlying soft tissue. However, if clinically concern for acute pulmonary processes, finding could be further evaluated with a two-view chest radiograph. There is no pneumothorax. Mediastinal contours are normal. Mitral annulus calcifications noted ADDENDUM - This addendum is being placed on the report for a time dependent finding on a patient who is admitted to the hospital (2B). There is left upper lobe opacity, which could be due to asymmetric pulmonary edema. If clinically indicated, 2 view chest radiograph or chest CT can be ordered for further evaluation. These findings were communicated to Dr. Regina Zaldivar by Deepti Mesa at 7:21 AM on 03/20/2020. Dictated by: Deepti Mesa M.D. The radiology attending physician has personally reviewed this study, and had reviewed and/or edited this written report and agrees with it. Electronically signed by: Melecio Holland M.D. us Giselle Wiley MD IMG XR PROCEDURES Final Resu lt * XR Spine Cervical 2 or 3 Views (03/20/2020 3:27 AM CDT) Anatomical Region Laterality Modality Spine N/A Computed Radiogr aphy 03/20/2020 3:46 AM CDT Impressions 03/20/2020 10:04 AM CDT Cervical spine: 4 views were submitted. ??Study is limited due to a poor open-mouth view. ??There is prevertebral soft tissue swelling. Patient's known C2 fracture is better demonstrated on the CT. ??Severe degenerative disc disease at C4-C5. ??Heavy calcification of the carotid bulbs is noted. Thoracic spine: 4 views were submitted. ??Alignment is normal. ??There is very mild age indeterminant wedging at the mid thoracic spine. Otherwise, the vertebral body heights are normal. Lumbar spine: 3 views were submitted. ??Alignment is normal. Vertebral body heights are normal. ??No acute fractures. ?? Chest: There is diffuse opacity bilaterally, which are favored to be due to overlying soft tissue. ??However, if clinically concern for acute pulmonary processes, finding could be further evaluated with a two-view chest radiograph. ??There is no pneumothorax. ??Mediastinal contours are normal. ??Mitral annulus calcifications noted ADDENDUM - This addendum is being placed on the report for a time dependent finding on a patient who is admitted to the hospital (2B). There is left upper lobe opacity, which could be due to asymmetric pulmonary edema. ??If clinically indicated, 2 view chest radiograph or chest CT can be ordered for further evaluation. These findings were communicated to Dr. Regina Zaldivar by Deepti Mesa at 7:21 AM on 03/20/2020. Dictated by: Deepti Mesa M.D. The radiology attending physician has personally reviewed this study, and had reviewed and/or edited this written report and agrees with it. Electronically signed by: Melecio Holland M.D. Narrative 03/20/2020 10:04 AM CDT EXAMINATION: XR SPINE THORACIC 3 VIEWS, XR SPINE LUMBAR 2 OR 3 VIEWS, XR CHEST 1 VIEW, XR SPINE CERVICAL 2 OR 3 VIEWS HISTORY: Outside hospital transfer for C2 fracture COMPARISON: 03/19/2020 CT and 03/08/2013 chest radiograph Procedure Note Melecio Holland MD - 03/20/2020 EXAMINATION: XR SPINE THORACIC 3 VIEWS, XR SPINE LUMBAR 2 OR 3 VIEWS, XR CHEST 1 VIEW, XR SPINE CERVICAL 2 OR 3 VIEWS HISTORY: Outside hospital transfer for C2 fracture COMPARISON: 03/19/2020 CT and 03/08/2013 chest radiograph IMPRESSION: Cervical spine: 4 views were submitted. Study is limited due to a poor open-mouth view. There is prevertebral soft tissue swelling. Patient's known C2 fracture is better demonstrated on the CT. Severe degenerative disc disease at C4-C5. Heavy calcification of the carotid bulbs is noted. Thoracic spine: 4 views were submitted. Alignment is normal. There is very mild age indeterminant wedging at the mid thoracic spine. Otherwise, the vertebral body heights are normal. Lumbar spine: 3 views were submitted. Alignment is normal. Vertebral body heights are normal. No acute fractures. Chest: There is diffuse opacity bilaterally, which are favored to be due to overlying soft tissue. However, if clinically concern for acute pulmonary processes, finding could be further evaluated with a two-view chest radiograph. There is no pneumothorax. Mediastinal contours are normal. Mitral annulus calcifications noted ADDENDUM - This addendum is being placed on the report for a time dependent finding on a patient who is admitted to the hospital (2B). There is left upper lobe opacity, which could be due to asymmetric pulmonary edema. If clinically indicated, 2 view chest radiograph or chest CT can be ordered for further evaluation. These findings were communicated to Dr. Regina Zaldivar by Deepti Mesa at 7:21 AM on 03/20/2020. Dictated by: Deepti Mesa M.D. The radiology attending physician has personally reviewed this study, and had reviewed and/or edited this written report and agrees with it. Electronically signed by: Melecio Holland M.D. Giselle Wiley MD IMG XR PROCEDURES Final Resu lt * XR Chest 1 Vw Portable (03/20/2020 3:26 AM CDT) Anatomical Region Laterality Modality Body, Chest N/A Computed Radiogr aphy 03/20/2020 3:46 AM CDT Impressions 03/20/2020 10:04 AM CDT Cervical spine: 4 views were submitted. ??Study is limited due to a poor open-mouth view. ??There is prevertebral soft tissue swelling. Patient's known C2 fracture is better demonstrated on the CT. ??Severe degenerative disc disease at C4-C5. ??Heavy calcification of the carotid bulbs is noted. Thoracic spine: 4 views were submitted. ??Alignment is normal. ??There is very mild age indeterminant wedging at the mid thoracic spine. Otherwise, the vertebral body heights are normal. Lumbar spine: 3 views were submitted. ??Alignment is normal. Vertebral body heights are normal. ??No acute fractures. ?? Chest: There is diffuse opacity bilaterally, which are favored to be due to overlying soft tissue. ??However, if clinically concern for acute pulmonary processes, finding could be further evaluated with a two-view chest radiograph. ??There is no pneumothorax. ??Mediastinal contours are normal. ??Mitral annulus calcifications noted ADDENDUM - This addendum is being placed on the report for a time dependent finding on a patient who is admitted to the hospital (2B). There is left upper lobe opacity, which could be due to asymmetric pulmonary edema. ??If clinically indicated, 2 view chest radiograph or chest CT can be ordered for further evaluation. These findings were communicated to Dr. Regina Zaldivar by Deepti Mesa at 7:21 AM on 03/20/2020. Dictated by: Deepti Mesa M.D. The radiology attending physician has personally reviewed this study, and had reviewed and/or edited this written report and agrees with it. Electronically signed by: Melecio Holland M.D. Narrative 03/20/2020 10:04 AM CDT EXAMINATION: XR SPINE THORACIC 3 VIEWS, XR SPINE LUMBAR 2 OR 3 VIEWS, XR CHEST 1 VIEW, XR SPINE CERVICAL 2 OR 3 VIEWS HISTORY: Outside hospital transfer for C2 fracture COMPARISON: 03/19/2020 CT and 03/08/2013 chest radiograph Procedure Note Melecio Holland MD - 03/20/2020 EXAMINATION: XR SPINE THORACIC 3 VIEWS, XR SPINE LUMBAR 2 OR 3 VIEWS, XR CHEST 1 VIEW, XR SPINE CERVICAL 2 OR 3 VIEWS HISTORY: Outside hospital transfer for C2 fracture COMPARISON: 03/19/2020 CT and 03/08/2013 chest radiograph IMPRESSION: Cervical spine: 4 views were submitted. Study is limited due to a poor open-mouth view. There is prevertebral soft tissue swelling. Patient's known C2 fracture is better demonstrated on the CT. Severe degenerative disc disease at C4-C5. Heavy calcification of the carotid bulbs is noted. Thoracic spine: 4 views were submitted. Alignment is normal. There is very mild age indeterminant wedging at the mid thoracic spine. Otherwise, the vertebral body heights are normal. Lumbar spine: 3 views were submitted. Alignment is normal. Vertebral body heights are normal. No acute fractures. Chest: There is diffuse opacity bilaterally, which are favored to be due to overlying soft tissue. However, if clinically concern for acute pulmonary processes, finding could be further evaluated with a two-view chest radiograph. There is no pneumothorax. Mediastinal contours are normal. Mitral annulus calcifications noted ADDENDUM - This addendum is being placed on the report for a time dependent finding on a patient who is admitted to the hospital (2B). There is left upper lobe opacity, which could be due to asymmetric pulmonary edema. If clinically indicated, 2 view chest radiograph or chest CT can be ordered for further evaluation. These findings were communicated to Dr. Regina Zaldivar by Deepti Mesa at 7:21 AM on 03/20/2020. Dictated by: Deepti Mesa M.D. The radiology attending physician has personally reviewed this study, and had reviewed and/or edited this written report and agrees with it. Electronically signed by: Melecio Holland M.D. Stewart Mathews MD IMG XR PROCEDURES Paty l Result * MRI Spine Cervical and Thoracic WO Contrast (03/20/2020 2:45 AM CDT) Anatomical Region Laterality Modality Spine N/A Magnetic Resonan ce 03/20/2020 4:34 AM CDT Impressions 03/20/2020 9:23 AM CDT 1. ??Acute comminuted C2 vertebral body fracture extending to the right pedicle and transverse foramen, and left superior articular facet. ??Associated left C1-C2 facet joint injury and C1-C2 interspinous ligamentous injury. ??No cord signal abnormality. 2. ??Additional nondisplaced fracture versus bone contusion of the left lateral mass of C1. 3. ??Focal disruption of the anterolateral ligament at C2 level, with prevertebral hematoma/edema and trace epidural hematoma. 4. ??Acute compression fractures of T2 and T3 vertebral bodies, with mild height loss. 5. ??Degenerative changes of cervical spine as detailed above. Dictated by: Ari Navarro M.D. The radiology attending physician has personally reviewed this study, and had reviewed and/or edited this written report and agrees with it. Electronically signed by: Danna Ying M.D. Narrative 03/20/2020 9:23 AM CDT EXAMINATION: Magnetic resonance imaging (MRI) of the cervical spine without contrast Magnetic resonance imaging (MRI) of the thoracic spine without contrast HISTORY: Fall, C2 fracture. TECHNIQUE: Multiplanar multi-weighted MRI of the cervical and thoracic spine was performed without intravenous contrast using the standard spine protocol. COMPARISON: CT cervical spine 03/19/2020. FINDINGS: CERVICAL SPINE: Redemonstrated comminuted fracture of the C2 vertebral body, with obliquely oriented fracture component extending to the left superior articular facet inferiorly, in addition to comminuted component extending to the right pedicle and right transverse foramen. ??Osseous details are better appreciated on comparison CT. ??There is widening of the left C1-C2 facet joint, with associated edema. ??Edema is also seen in the left lateral mass of C1, with corresponds to subtle osseous irregularity on comparison CT. There is disruption of the anterior longitudinal ligament at the C2 level. ??Associated prevertebral edema/hematoma extending inferiorly to C5 level, with trace epidural hematoma. ??Mild anterolisthesis of C4 on C5. ??Edema is seen within the posterior paraspinal soft tissues at the C2-C5 levels, with edema extending to the C1-C2 interspinous region compatible with interspinous ligamentous injury. ??No definite cord signal abnormality. Vertebral bodies demonstrate heterogenous signal intensity, without suspicious focal lesion. ??The craniocervical junction is normal. The visualized portions of the skull base and the posterior fossa are normal. Multilevel degenerative changes of the cervical spine, with intervertebral disc height loss at C5-C6 level. ??Disc osteophyte complex at C5-C6 and C6-C7 levels, in combination with ligamentum flavum infolding, results in moderate spinal canal stenosis at these levels. ??Multilevel facet hypertrophy and uncovertebral hypertrophy results in up to moderate bilateral neuroforaminal stenosis at C4-C5 level. THORACIC SPINE: The alignment of the thoracic spine is maintained. ??Edema seen along the superior aspects of T2 and T3 vertebral bodies, with irregular appearance of the T3 superior endplate, compatible with acute compression fractures. ??There is associated mild vertebral body height loss. ??The spinal cord demonstrates normal signal intensity. Mild multilevel degenerative changes of the thoracic spine, without significant spinal canal or neuroforaminal stenosis. ??Mild cardiomegaly is noted. ??Bilateral kidneys are atrophic. ?? Procedure Note VoDanna MD - 03/20/2020 EXAMINATION: Magnetic resonance imaging (MRI) of the cervical spine without contrast Magnetic resonance imaging (MRI) of the thoracic spine without contrast HISTORY: Fall, C2 fracture. TECHNIQUE: Multiplanar multi-weighted MRI of the cervical and thoracic spine was performed without intravenous contrast using the standard spine protocol. COMPARISON: CT cervical spine 03/19/2020. FINDINGS: CERVICAL SPINE: Redemonstrated comminuted fracture of the C2 vertebral body, with obliquely oriented fracture component extending to the left superior articular facet inferiorly, in addition to comminuted component extending to the right pedicle and right transverse foramen. Osseous details are better appreciated on comparison CT. There is widening of the left C1-C2 facet joint, with associated edema. Edema is also seen in the left lateral mass of C1, with corresponds to subtle osseous irregularity on comparison CT. There is disruption of the anterior longitudinal ligament at the C2 level. Associated prevertebral edema/hematoma extending inferiorly to C5 level, with trace epidural hematoma. Mild anterolisthesis of C4 on C5. Edema is seen within the posterior paraspinal soft tissues at the C2-C5 levels, with edema extending to the C1-C2 interspinous region compatible with interspinous ligamentous injury. No definite cord signal abnormality. Vertebral bodies demonstrate heterogenous signal intensity, without suspicious focal lesion. The craniocervical junction is normal. The visualized portions of the skull base and the posterior fossa are normal. Multilevel degenerative changes of the cervical spine, with intervertebral disc height loss at C5-C6 level. Disc osteophyte complex at C5-C6 and C6-C7 levels, in combination with ligamentum flavum infolding, results in moderate spinal canal stenosis at these levels. Multilevel facet hypertrophy and uncovertebral hypertrophy results in up to moderate bilateral neuroforaminal stenosis at C4-C5 level. THORACIC SPINE: The alignment of the thoracic spine is maintained. Edema seen along the superior aspects of T2 and T3 vertebral bodies, with irregular appearance of the T3 superior endplate, compatible with acute compression fractures. There is associated mild vertebral body height loss. The spinal cord demonstrates normal signal intensity. Mild multilevel degenerative changes of the thoracic spine, without significant spinal canal or neuroforaminal stenosis. Mild cardiomegaly is noted. Bilateral kidneys are atrophic. IMPRESSION: 1. Acute comminuted C2 vertebral body fracture extending to the right pedicle and transverse foramen, and left superior articular facet. Associated left C1-C2 facet joint injury and C1-C2 interspinous ligamentous injury. No cord signal abnormality. 2. Additional nondisplaced fracture versus bone contusion of the left lateral mass of C1. 3. Focal disruption of the anterolateral ligament at C2 level, with prevertebral hematoma/edema and trace epidural hematoma. 4. Acute compression fractures of T2 and T3 vertebral bodies, with mild height loss. 5. Degenerative changes of cervical spine as detailed above. Dictated by: Ari Navarro M.D. The radiology attending physician has personally reviewed this study, and had reviewed and/or edited this written report and agrees with it. Electronically signed by: Danna Ying M.D. Garth Vargas MD IMG MRI PROCEDURES Fi nal Result * (ABNORMAL) Urine culture Urine (03/19/2020 10:46 PM CDT) Report Final Report: Greater than or equal to 100,000 colonies/mL of Coagulase negative Staphylococcus species not S. lugdunensis or S. saprophyticus Plus growth of clinically insignificant bacterial momo. (.) [facility] COAGULASE NEGATIVE STAPHYLOCOCCUS SPECIES [facility] PLUS GROWTH OF CLINICALLY INSIGNIFICANT MOMO. [facility] Urine 03/19/2020 10:4 6 PM CDT 03/20/2020 1:42 AM CDT Narrative [facility] - 03/21/2020 9:24 AM CDT Urine culture reflexed based upon urinalysis results. Testing performed by [facility] Microbiology Laboratory ([phone]) Jessi Aldana MD LAB MICROBIOLOGY - G ENERAL ORDERABLES Final Result Performing Organization Address [facility] Co de Phone Number [facility] Department [place] [address] * (ABNORMAL) Urinalysis, microscopic only (03/19/2020 10:46 PM CDT) WBC, ur 21-50(A) 0 - 5 /HPF [facility] RBC, ur 0-2 0 - 2 /HPF [facility] Bacteria, ur 1+(A) [facility] Mucous, ur Present(A) [facility] Amorphous crystals, ur 2+(A) [facility] Culture Reflex Comment Reflex to urine culture will be performed. [facility] Urine 03/19/2020 10:4 6 PM CDT 03/19/2020 11:00 PM CDT Jessi Aldana MD LAB URINE ORDERABLES Final Result Performing Organization Address [facility] Co de Phone Number [facility] Department [place] [address] * COVID-19 Coronavirus RNA Nasopharyngeal (03/19/2020 10:46 PM CDT) Pathologist [facility] [place] COVID-19 RNA Not Detected [facility] Comment: Interpretive Data Testing performed at [facility] Molecular Infectious Disease [facility]. The 2019-Novel Coronavirus Assay (COVID-19) Real Time RT-PCR assay is for in vitro diagnostic use under FDA emergency use authorization only. A negative RT-PCR result does not preclude infection with COVID-19 and should not be used as the sole basis for treatment or other patient management decisions. Additional sample types have been validated according to CLIA regulations. ?? Current Interpretive Data was last revised on 2019. Nasopharyngeal 03/19/2020 10 :46 PM CDT 03/20/2020 1:45 AM CDT Narrative [facility] - 03/20/2020 9:35 AM CDT Is the patient experiencing any symptoms consistent with COVID (eg. Fever, cough, shortness of breath)?->No What is the reason for testing?->Screening prior to scheduled (>12 hr) surgery or procedure [facility]LE[facility] LOCATION IS [address] Garth Vargas MD LAB MICROBIOLOGY - [facility] ORDERABLES Final Result [facility] Department [place] [address] * (ABNORMAL) Urinalysis reflex to microscopic and culture Urine (03/19/2020 10:46 PM CDT) Color, ur Sangeetha Yellow [facility] Clarity, ur Cloudy(A) Clear [facility] Specific gravity, ur 1.029(H) 1.010 - 1.025 [facility] pH, urine 7 [facility] Protein, ur ql 2+(A) Negative [facility] Glucose, ur ql Negative Negative [facility] Ketones, ur 1+(A) Negative [facility] Bilirubin, ur Negative Negative [facility] Blood, ur Negative Negative [facility] Urobilinogen, ur <2.0 <2.0 mg/dL [facility] Nitrite, ur Positive(A) Negative [facility] Leukocyte esterase, ur 3+(A) Negative [facility] UA reflex comment Reflex to microscopic UA will be performed. [facility] Urine 03/19/2020 10:4 6 PM CDT 03/19/2020 11:00 PM CDT Narrative [facility] - 03/19/2020 11:57 PM CDT [facility] LOCATION IS [id number] Urine pH is affected by diet, medications, systemic acid-base disturbances, and renal tubular function. ??pH may affect urinary stone formation. ??For example, urine pH below 6.0 may help reduce the tendency for calcium phosphate stones and pH greater than 6.0 may reduce the tendency for uric acid stone formation. Source: [employer]. Last revised 07-16-2017 us Jessi Aldana MD LAB MICROBIOLOGY - G ENERAL ORDERABLES Final Result [facility] Department [place] [address] * Neuro CT MR Outside Consult (03/19/2020 [...] images may or may not represent the [place] source data set and thus may contain [...] IMAGING STUDY STUDY INITIALLY PERFORMED: 03/19/2020 at [facility]. TYPE OF STUDY: Multiple CT images of [...] IMAGING STUDY STUDY INITIALLY PERFORMED: 03/19/2020 at [facility]. TYPE OF STUDY: Multiple CT images of [...] images may or may not represent the [place] source data set and thus may contain changes that may lower the accuracy of this second-opinion interpretation. Dictated by: Alice Hameed M.D. The radiology attending physician has personally reviewed this study, and had reviewed and/or edited this written report and agrees with it. Electronically signed by: Danna Ying M.D. Jessi Aldana MD IMG CT PROCEDURES Fi nal Result * Neuro CT MR Outside Consult (03/19/2020 [...] images may or may not represent the [place] source data set and thus may contain [...] IMAGING STUDY STUDY INITIALLY PERFORMED: 03/19/2020 at [facility]. TYPE OF STUDY: Multiple CT images of [...] outside imaging study with images submitted through [employer] DATE OF CONSULTATION: 03/20/2020 2:41 AM HISTORY: [...] IMAGING STUDY STUDY INITIALLY PERFORMED: 03/19/2020 at [facility]. TYPE OF STUDY: Multiple CT images of [...] images may or may not represent the [place] source data set and thus may contain changes that may lower the accuracy of this second-opinion interpretation. Dictated by: Alice Hameed M.D. The radiology attending physician has personally reviewed this study, and had reviewed and/or edited this written report and agrees with it. Electronically signed by: Danna Ying M.D. us Jessi Aldana MD IMG CT PROCEDURES Fi nal Result * ECG 12-LEAD (03/19/2020 9:20 PM CDT) Narrative [facility] - 03/19/2020 9:20 PM CDT Garth Vargas MD ? 03/19/2020 ??9:22 PM ECG 12 lead Date/Time: 03/19/2020 9:20 PM Performed by: Garth Vargas MD Authorized by: Jessi Aldana MD Rate: ??ECG rate: ??89 ??ECG rate assessment: normal ?? Rhythm: ??Rhythm: sinus rhythm ?? Ectopy: ??Ectopy: none ?? QRS: ??QRS axis: ??Normal ??QRS intervals: ??Normal Conduction: ??Conduction: normal ?? ST segments: ??ST segments: ??Normal T waves: ??T waves: non-specific ?? Previous ECG: ??Previous ECG: ??Compared to current ??Date of previous ECG: ??08/23/2013 ??Similarity: ??No change Interpretation: ??Interpretation: non-specific ?? Recommended Follow-up: ??Recommended follow up: further workup in the ED ?? Comments: ?? Biphasic T wave in V1 Procedure Note Garth Vargas MD - 03/19/2020 9:20 PM CDT Procedure ECG 12 lead Date/Time: 03/19/2020 9:20 PM Performed by: Garth Vargas MD Authorized by: Jessi Aldana MD Rate: ECG rate: 89 ECG rate assessment: normal Rhythm: Rhythm: sinus rhythm Ectopy: Ectopy: none QRS: QRS axis: Normal QRS intervals: Normal Conduction: Conduction: normal ST segments: ST segments: Normal T waves: T waves: non-specific Previous ECG: Previous ECG: Compared to current Date of previous EC08/23/2013 Similarity: No change Interpretation: Interpretation: non-specific Recommended Follow-up: Recommended follow up: further workup in the ED Comments: Biphasic T wave in V1 Garth Vargas MD 03/19/202121 us Jessi Aldana MD ECG ORDERABLES Paty max Result [facility] * Lipid panel (03/19/2020 8:44 PM CDT) Cholesterol 140 30 - 199 mg/dL [facility] Comment: Interpretive Data Ages < or = [...] Data was last revised on 2018. Triglycerides 64 <=149 mg/dL [facility] Comment: Interpretive Data Ages < or = [...] Data was last revised on 2018. HDL 70 >=40 mg/dL [facility] Comment: Interpretive Data Ages < or = [...] was last revised on 2018. LDL, calculated 57 <=129 mg/dL [facility] Comment: Interpretive Data Ages < or = [...] was last revised on 2018. Non-HDL Cholesterol 70 mg/dL [facility] Comment: Interpretive Data Ages < or = [...] last revised on 2018. Chol/HDL ratio 2 [facility] Blood specimen (specimen) 03/19/2020 8:44 PM CDT 03/19/2020 9:05 PM CDT Narrative [facility] - 03/20/2020 4:44 PM CDT Reflex us Deaabraham Alegre MD LAB BLOOD ORDERABLES Final Result [facility] Department [place] [address] * (ABNORMAL) Differential, auto (03/19/2020 8:44 PM CDT) Neutrophil abs 7.5(H) 1.7 - 6.5 K/cumm [facility] Imm gran abs 0.1 0.0 - 0.1 K/cumm [facility] Lymphocyte abs 0.4(L) 0.8 - 3.3 K/cumm [facility] Monocyte abs 0.5 0.2 - 0.8 K/cumm [facility] Eosinophil abs 0.0 0.0 - 0.5 K/cumm [facility] Basophil abs 0.0 0.0 - 0.1 K/cumm [facility] Neutrophil pct 88.6 % [facility] Comment: Interpretive Data Percent cell count reference ranges are not reported, since discordance with absolute values may lead to misinterpretation of CBC data. Current Interpretive Data was last revised on 2017. Imm gran pct 0.6 % [facility] Comment: Interpretive Data Percent cell count reference ranges are not reported, since discordance with absolute values may lead to misinterpretation of CBC data. Current Interpretive Data was last revised on 2017. Lymphocyte pct 4.7 % [facility] Comment: Interpretive Data Percent cell count reference ranges are not reported, since discordance with absolute values may lead to misinterpretation of CBC data. Current Interpretive Data was last revised on 2017. Monocyte pct 5.9 % [facility] Comment: Interpretive Data Percent cell count reference ranges are not reported, since discordance with absolute values may lead to misinterpretation of CBC data. Current Interpretive Data was last revised on 2017. Eosinophil pct 0.0 % [facility] Comment: Interpretive Data Percent cell count reference ranges are not reported, since discordance with absolute values may lead to misinterpretation of CBC data. Current Interpretive Data was last revised on 2017. Basophil pct 0.2 % [facility] Comment: Interpretive Data Percent cell count reference ranges are not reported, since discordance with absolute values may lead to misinterpretation of CBC data. Current Interpretive Data was last revised on 2017. Blood specimen (specimen) 03/19/2020 8:44 PM CDT 03/19/2020 9:05 PM CDT Jessi Aldana MD LAB BLOOD ORDERABLES Final Result [facility] Department [place] [place] [address] * Type and screen (03/19/2020 8:44 PM CDT) Emerita, indirect Negative [facility] ABO Rh B Positive [facility] Blood specimen (specimen) 03/19/2020 8:44 PM CDT 03/19/2020 8:56 PM CDT Narrative [facility] - 03/19/2020 9:44 PM CDT Has the patient had Daratumumab or Isatuximab in the past 6 months?->Unknown THE [facility] COLLECTION LOCATION IS [facility] CC-[id number] Jessi Aldana MD LAB BLOOD BANK TEST ORDERABLES Final Result [facility] [place] [place] [address] * aPTT (03/19/2020 8:44 PM CDT) aPTT 26 25 - 37 sec [facility] Comment: Interpretive data Heparin therapeutic range: 60-90 seconds Range based on correlation with therapeutic heparin activity range of 0.3-0.7 units/ml. Current interpretive data was last revised on 2019. Blood specimen (specimen) 03/19/2020 8:44 PM CDT 03/19/2020 9:04 PM CDT Narrative [facility] - 03/19/2020 9:15 PM CDT THE BJ COLLECTION LOCATION IS [address] Jessi Aldana MD LAB BLOOD ORDERABLES Final Result Performing Organization Address [facility] de Phone Number [facility] [place] [address] * Protime-INR (03/19/2020 8:44 PM CDT) PT 11.9 8.6 - 13.0 sec [facility] INR 1.1 0.8 - 1.2 [facility] Comment: Interpretive data Oral anticoagulant therapeutic ranges: Venous thromboembolism prophylaxis or treatment: 2.0-3.0 CARDIOLOGY Standard range: 2.0-3.0 High-intensity range: 2.5-3.5 Refer to indication-specific guidelines for appropriate target ranges for prosthetic heart valve replacement. Current interpretive data was last revised on 2019. Blood specimen (specimen) 03/19/2020 8:44 PM CDT 03/19/2020 9:04 PM CDT Narrative [facility] - 03/19/2020 9:15 PM CDT THE COLLECTION LOCATION IS [address] Jessi Aldana MD LAB BLOOD ORDERABLES Final Result Performing Organization Address [facility] [place] [address] * (ABNORMAL) Comprehensive metabolic panel (03/19/2020 8:44 PM CDT) Sodium 139 135 - 145 mmol/L [facility] Potassium, pl 5.0(H) 3.3 - 4.9 mmol/L [facility] Chloride 105 97 - 110 mmol/L [facility] CO2 25 22 - 32 mmol/L [facility] Anion gap 9 2 - 15 mmol/L [facility] BUN 27(H) 8 - 25 mg/dL [facility] Creatinine 0.84 0.60 - 1.10 mg/dL [facility] Glucose 129 70 - 199 mg/dL [facility] Comment: Interpretive Data Fasting glucose >/= [...] 2017. Calcium 10.2 8.5 - 10.3 mg/dL [facility] Bilirubin, total 0.8 0.1 - 1.2 mg/dL [facility] Protein, pl 7.3 6.5 - 8.5 g/dL [facility] Albumin 4.1 3.5 - 5.0 g/dL [facility] Alk phos 115 40 - 130 Units/L [facility] ALT 17 7 - 45 Units/L [facility] AST 24 10 - 45 Units/L [facility] Blood specimen (specimen) 03/19/2020 8:44 PM CDT 03/19/2020 9:05 PM CDT Narrative [facility] - 03/19/2020 9:36 PM CDT THE B[facility] COLLECTION LOCATION IS [address] us Jessi Aldana MD LAB BLOOD ORDERABLES Final Result [facility] Department [place] [address] * (ABNORMAL) CBC with auto differential (03/19/2020 8:44 PM CDT) WBC 8.5 3.8 - 9.9 K/cumm [facility] Hgb 13.6 11.9 - 15.5 g/dL [facility] Hct 40.3 35.6 - 45.5 % [facility] Plt 121(L) 150 - 400 K/cumm [facility] MPV 10.9 9.1 - 12.3 fL [facility] RBC 4.11 3.90 - 5.20 M/cumm [facility] MCV 98.1(H) 81.3 - 96.4 fL [facility] MCH 33.1 27.1 - 33.3 pg [facility] MCHC 33.7 32.3 - 35.7 g/dL [facility] RDW CV 12.2 11.1 - 14.9 % [facility] RDW SD 44.0 35.7 - 48.1 fL [facility] NRBC abs 0.00 0.00 - 0.01 K/cumm [facility] Blood specimen (specimen) 03/19/2020 8:44 PM CDT 03/19/2020 9:05 PM CDT Narrative [facility] - 03/19/2020 9:20 PM CDT THE COLLECTION LOCATION IS [address] Jessi Aldana MD LAB BLOOD ORDERABLES Final Result [facility] Department [place] [address] documented in this encounter Visit Diagnoses Diagnosis Traumatic closed fracture of C2 vertebra with minimal displacement (HCC)- Primary Fall, initial encounter Closed nondisplaced fracture of second cervical vertebra, unspecified fracture morphology, initial encounter (HCC) Diagnosis unknown Closed traumatic minimally displaced fracture of second cervical vertebra, initial encounter (HCC) Injury to ligament of cervical spine, initial encounter Acute pain due to trauma History of kidney transplant Kidney replaced by transplant Injury to ligament of cervical spine Acute pain due to trauma HTN (hypertension) Unspecified essential hypertension CAD (coronary artery disease) Coronary atherosclerosis of unspecified type of vessel, [place] or graft Hypothyroidism Unspecified hypothyroidism Chronic UTI Urinary tract infection, site not specified documented in this encounter Administered Medications Inactive Administered Medications - up to 3 most recent administrations Medication Order MAR Action Action Date Dose Rate Site acetaminophen (TYLENOL) tablet 1,000 mg 1,000 mg, oral, Every 6 hours scheduled, First dose on Thu03/20/20 at 1800 Given 03/28/2020 1:34 PM CDT 1,000 mg Given 03/28/2020 8:10 AM CDT 1,000 mg Given 03/28/2020 3:14 AM CDT 1,000 mg acyclovir (ZOVIRAX) capsule 200 mg 200 mg, oral, 2 times daily, First dose on Thu03/20/20 at 2100, Indications: Prophylaxis, MedicalIndications:Prophylaxis, Medical Given 03/28/2020 8:10 AM CDT 200 mg Given 03/27/2020 9:39 PM CDT 200 mg Given 03/27/2020 8:34 AM CDT 200 mg benzocaine (ORAJEL) 10 % mucosal gel mouth/throat, 3 times daily PRN, mucositis, Starting on Thu03/26/20 at 2255 cefTRIAXone (ROCEPHIN) 1,000 mg/10 mL in sterile water (premix) 1,000 mg 1,000 mg, intravenous, at 600 mL/hr, Administer over 1 Minutes, Every 24 hours scheduled, First dose on Thu03/20/20 at 0124, Indications: Urinary Tract/Genitourinary InfectionIndications:Urinary Tract/Genitourinary Infection Given 03/20/2020 3:43 AM CDT 1,000 mg 6 00 mL/hr cyclobenzaprine (FLEXERIL) tablet 5 mg 5 mg, oral, 3 times daily, First dose on Thu03/22/20 at 1600 Given 03/26/2020 8:25 AM CDT 5 mg Given 03/25/2020 8:40 PM CDT 5 mg Given 03/25/2020 3:01 PM CDT 5 mg cyclobenzaprine (FLEXERIL) tablet 5 mg 5 mg, oral, 3 times daily PRN, muscle spasms, Starting on Thu03/26/20 at 1445 Given 03/28/2020 8:17 AM CDT 5 mg Given 03/26/2020 10:11 PM CDT 5 mg enoxaparin (LOVENOX) syringe 30 mg 30 mg, subcutaneous, Every 12 hours scheduled, First dose on Thu03/20/20 at 2100, Indications: Deep Vein Thrombosis PreventionIndications:Deep Vein Thrombosis Prevention Given 03/28/2020 8:10 AM CDT 30 mg Left Lower Abdomen Given 03/27/2020 9:39 PM CDT 30 mg Le ft Lower Abdomen Given 03/27/2020 8:34 AM CDT 30 mg Le ft Lower Abdomen gabapentin (NEURONTIN) capsule 300 mg 300 mg, oral, 2 times daily, First dose on Thu03/23/20 at 0545 Given 03/28/2020 8:10 AM CDT 300 mg Given 03/27/2020 9:40 PM CDT 300 mg Given 03/27/2020 8:34 AM CDT 300 mg HYDROmorphone (DILAUDID) injection 0.5 mg 0.5 mg, intravenous, Administer over 2 Minutes, Once, On Thu03/19/20 at 2106, For 1 dose Given 03/19/2020 9:10 PM CDT 0.5 mg HYDROmorphone (DILAUDID) injection 0.5 mg 0.5 mg, intravenous, Administer over 2 Minutes, Once, On Thu03/20/20 at 1238, For 1 dose Given 03/20/2020 1:04 PM CDT 0.5 mg ioversoL (OPTIRAY 350) syringe syringe 100 mL 100 mL, intravenous, Once in imaging, contrast, Starting on Thu03/20/20 at 0542, For 1 dose Given 03/20/2020 6:15 AM CDT 100 mL levothyroxine (SYNTHROID) tablet 100 mcg 100 mcg, oral, Daily (early AM), First dose on Thu03/21/20 at 0600, Administer on an empty stomach, preferably 30 minutes before breakfast. Take 4 hours apart from antacids, iron and calcium products. Given 03/28/2020 5:59 AM CDT 100 mcg Given 03/27/2020 5:59 AM CDT 100 mcg Given 03/26/2020 5:30 AM CDT 100 mcg lidocaine (LIDODERM) 5 % patch 2 patch 2 patch, transdermal, Administer over 12 Hours, Daily, First dose on Thu03/23/20 at 0900, Do not cover the holes on the top side of the patch., Apply to affected area: back Medication Applied 03/28/2020 8:12 AM CDT 2 patches Right Shoulder Medication Applied 03/27/2020 8:34 AM CDT 2 patches Back Medication Applied 03/26/2020 8:26 AM CDT 2 patches Back lisinopriL (PRINIVIL,ZESTRIL) tablet 10 mg 10 mg, oral, Daily (early AM), First dose on Thu03/21/20 at 0600, Indications: hypertensionIndications:hypertension Given 03/28/2020 5:59 AM CDT 10 mg Given 03/27/2020 5:59 AM CDT 10 mg Given 03/26/2020 5:30 AM CDT 10 mg LORazepam (ATIVAN) injection 0.5 mg 0.5 mg, intravenous, Once, On Thu03/20/20 at 0119, For 1 dose, For IV administration, dilute with equal volume of 0.9% sodium chloride. Do not exceed a rate of 2 mg/minute Given 03/20/2020 1:5 0 AM CDT 0.5 mg metoprolol tartrate (LOPRESSOR) immediate release tablet 25 mg 25 mg, oral, 2 times daily, First dose on Thu03/20/20 at 2100 Given 03/20/2020 9:21 PM CDT 25 mg metoprolol tartrate (LOPRESSOR) immediate release tablet 25 mg 25 mg, oral, Once, On Thu03/23/20 at 1445, For 1 dose Given 03/23/2020 3:04 PM CDT 25 mg metoprolol tartrate (LOPRESSOR) immediate release tablet 50 mg 50 mg, oral, 2 times daily, First dose on Thu03/20/20 at 2100 Given 03/21/2020 8:42 PM CDT 50 mg Given 03/21/2020 9:05 AM CDT 50 mg Given 03/20/2020 9:21 PM CDT 50 mg metoprolol tartrate (LOPRESSOR) immediate release tablet 75 mg 75 mg, oral, 2 times daily, First dose (after last modification) on Shabana 03/22/20 at 0900 Given 03/28/2020 8:10 AM CDT 75 mg Given 03/27/2020 9:40 PM CDT 75 mg Given 03/27/2020 8:34 AM CDT 75 mg morphine 2 mg/mL injection - ADS Override Pull Starting on Thu03/19/20 at 2331, For 1 dose, Created by cabbrittt override morphine injection 4 mg 4 mg, intravenous, Administer over 4 Minutes, Once, On Thu03/19/20 at 2331, For 1 dose Given 03/19/2020 11:34 PM CDT 4 mg ondansetron (ZOFRAN) 4 mg/2 mL injection - ADS Override Pull Starting on Thu03/19/20 at 2331, For 1 dose, Created by [email or web address] override ondansetron (ZOFRAN) injection 4 mg 4 mg, intravenous, Administer over 2 Minutes, Once, On Thu03/19/20 at 2106, For 1 dose Given 03/19/2020 9:10 PM CDT 4 mg ondansetron (ZOFRAN) injection 4 mg 4 mg, intravenous, Administer over 2 Minutes, Once, On Thu03/19/20 at 2331, For 1 dose Given 03/19/2020 11:34 PM CDT 4 mg ondansetron (ZOFRAN) injection 4 mg 4 mg, intravenous, Administer over 2 Minutes, Every 6 hours PRN, nausea, vomiting, Starting on Thu03/20/20 at 1737 Given 03/20/2020 6:08 PM CDT 4 mg ondansetron (ZOFRAN) injection 8 mg 8 mg, intravenous, Administer over 2 Minutes, Once, On Thu03/21/20 at 0130, For 1 dose Given 03/21/2020 2:25 AM CDT 8 mg oxyCODONE (ROXICODONE) tablet 2.5 mg 2.5 mg, oral, Every 4 hours PRN, 1st line for pain, Starting on Thu03/23/20 at 1314, Indications: PainIndications:Pain Given 03/24/2020 8:30 PM CDT 2.5 mg Given 03/24/2020 12:34 PM CDT Given 03/24/2020 2:40 AM CDT 2.5 mg oxyCODONE (ROXICODONE) tablet 5 mg 5 mg, oral, Every 4 hours PRN, 1st line for pain, Starting on Thu03/20/20 at 1438, Indications: PainIndications:Pain Given 03/23/2020 9:21 AM CDT 5 mg Given 03/23/2020 4:57 AM CDT 5 mg Given 03/23/2020 12:57 AM CDT 5 mg polyethylene glycol (MIRALAX) packet 17 g 17 g, oral, Daily, First dose on Thu03/22/20 at 0900, Indications: constipationIndications:constipation Given 03/28/2020 8:12 AM CDT 17 g Given 03/26/2020 8:26 AM CDT 17 g Given 03/24/2020 9:57 AM CDT 17 g pravastatin (PRAVACHOL) tablet 20 mg 20 mg, oral, Nightly, First dose on Thu03/20/20 at 2100 Given 03/27/2020 9:40 PM CDT 20 mg Given 03/26/2020 8:40 PM CDT 20 mg Given 03/25/2020 8:40 PM CDT 20 mg predniSONE (DELTASONE) tablet 5 mg 5 mg, oral, Daily, First dose on Thu03/20/20 at 0900 Given 03/28/2020 8:10 AM CDT 5 mg Given 03/27/2020 8:34 AM CDT 5 mg Given 03/26/2020 8:25 AM CDT 5 mg senna-docusate (PERICOLACE) 8.6-50 mg per tablet 1 tablet 1 tablet, oral, 2 times daily, First dose on Thu03/20/20 at 2100 Given 03/21/2020 8:42 PM CDT 1 tablet Given 03/21/2020 9:04 AM CDT 1 tablet Given 03/20/2020 9:21 PM CDT 1 tablet senna-docusate (PERICOLACE) 8.6-50 mg per tablet 2 tablet 2 tablet, oral, 2 times daily, First dose (after last modification) on Thu03/22/20 at 0900 Given 03/28/2020 8:10 AM CDT 2 tablets Given 03/27/2020 9:40 PM CDT 2 tablets Given 03/27/2020 8:34 AM CDT 2 tablets sodium chloride 0.9% infusion 50 mL/hr, intravenous, Continuous, Starting on Thu03/20/20 at 1515 New Bag 03/20/2020 3:10 PM CDT 50 mL/hr 50 mL/hr tacrolimus (PROGRAF) capsule 0.5 mg 0.5 mg, oral, Every 12 hours scheduled, First dose (after last modification) on Shabana 03/22/20 at 2100, Avoid grapefruit juice, Indications: immunosuppressionIndications:immun osuppression Given 03/28/2020 8:10 AM CDT 0.5 mg Given 03/27/2020 9:38 PM CDT 0.5 mg Given 03/27/2020 8:34 AM CDT 0.5 mg tacrolimus (PROGRAF) capsule 1 mg 1 mg, oral, Every 12 hours scheduled, First dose on 03/19/20 at 2110, Avoid grapefruit juice, Indications: immunosuppressionIndications:immunosuppression Given 03/20/2020 10 :50 PM CDT 1 mg Given 03/20/2020 8:52 AM CDT 1 mg Given 03/19/2020 11:36 PM CDT 1 mg traMADoL (ULTRAM) tablet 50 mg 50 mg, oral, 4 times daily PRN, 1st line for pain, Starting on 03/25/20 at 1246 Given 03/28/2020 1:51 PM CDT 50 mg Given 03/28/2020 3:57 AM CDT 50 mg Given 03/27/2020 9:39 PM CDT 50 mg trimethoprim (TRIMPEX) tablet 100 mg 100 mg, oral, Nightly, First dose on Thu03/20/20 at 2100, Indications: Prevention of Bacterial Urinary Tract InfectionIndications:Prevention of Bacterial Urinary Tract Infection Given 03/28/2020 12:01 AM CDT 100 mg Given 03/26/2020 8:58 PM CDT 100 mg Given 03/25/2020 8:40 PM CDT 100 mg documented in this encounter Discontinued Medications Medication Sig Discontinue Reason Start Date End Da te rivaroxaban (XARELTO) 10 mg tablet Take 10 mg by mouth daily Therapy completed 03/20/2020 sodium bicarbonate 325 mg tablet Take 2 tablets (650 mg total) by mouth daily Therapy completed 10/04/2019 03/20/2020 metoprolol tartrate (LOPRESSOR) 25 mg immediate release tablet Take 1 tablet (25 mg total) by mouth 2 (two) times a day 12/26/2019 03/20/2020 biotin 1 mg tablet Take 2 tablets by mouth daily before breakfast Stop Taking at Discharge 03/28/2020 metoprolol (LOPRESSOR) 50 mg tablet Take 1 tablet (50 mg total) by mouth 2 (two) times a day Stop Taking at Discharge 12/09/2018 03/28/2020 trimethoprim (TRIMPEX) 100 mg tabletIndications:Prev ention of Bacterial Urinary Tract Infection Take 50 mg by mouth nightly Stop Taking at Discharge 03/28/2020 tobramycin (TOBREX) 0.3 % ophthalmic solution Instill 1 drop into surgical eye three times daily starting two days before surgery Stop Taking at Discharge 03/29/2019 03/28/2020 tacrolimus (PROGRAF) 1 mg capsuleIndications:Kid prabha replaced by transplant Take 1 capsule (1 mg total) by mouth 2 (two) times a day Stop Taking at Discharge 03/22/2020 03/28/2020 documented as of this encounter Historical Medications * This list may reflect changes made after this encounter. acyclovir (ZOVIRAX) 200 mg capsule Take 200 mg by mouth 2 (two) times a day 06/04/2020 added in this encounter Active and Recently Administered Medications Times are shown in CDT. Scheduled Medication Order 03/26/2020 03/27/2020 03/28/2020 acetaminophen (TYLENOL) tablet 1,000 mg 1,000 mg, oral, Every 6 hours scheduled, First dose on Thu03/20/20 at 1800 0235 (Given - Provider: Flavia Beltran RN)0825 (Given - Provider: Tisha Maria RN)1421 (Given - Provider: Tisha Maria RN)2041 (Given - Provider: Mariia Cabrera RN) 0154 (Given - Provider: Mariia Cabrera RN)0834 (Given - Provider: Tisha Maria RN)1436 (Given - Provider: Tisha Maria RN)2139 (Given - Provider: Tiffany Burgos, DEREK) 0314 (Given - Provider: Tiffany Burgos, DEREK)0810 (Given - Provider: Aurelia Whitfield, DEREK)1334 (Given - Provider: Aurelia Whitfield RN) acyclovir (ZOVIRAX) capsule 200 mg 200 mg, oral, 2 times daily, First dose on Thu03/20/20 at 2100, Indications: Prophylaxis, Medical 0825 (Given - Provider: Tisha Maria RN)2040 (Given - Provider: Mariia Cabrera RN) 0834 (Given - Provider: Tisha Maria, DEREK)2138 (Given - Provider: Tiffany Burgos, DEREK) 0810 (Given - Provider: Aurelia Whitfield RN) cyclobenzaprine (FLEXERIL) tablet 5 mg (CANCELED) 5 mg, oral, 3 times daily, First dose on Thu03/22/20 at 1600 0825 (Given - Provider: Tisha Maria, DEREK) enoxaparin (LOVENOX) syringe 30 mg 30 mg, subcutaneous, Every 12 hours scheduled, First dose on Thu03/20/20 at 2100, Indications: Deep Vein Thrombosis Prevention 0826 (Given - Provider: Tisha Maria RN)2041 (Given - Provider: Mariia Cabrera RN) 0834 (Given - Provider: Tisha Maria RN)2138 (Given - Provider: Tiffany Burgos RN) 0810 (Given - Provider: Aurelia Whitfield RN) gabapentin (NEURONTIN) capsule 300 mg 300 mg, oral, 2 times daily, First dose on Thu03/23/20 at 0545 0825 (Given - Provider: Tisha Maria RN)2039 (Given - Provider: Mariia Cabrera RN) 0834 (Given - Provider: Tisha Maria RN)2139 (Given - Provider: Tiffany Burgos RN) 0810 (Given - Provider: Aurelia Whitfield RN) levothyroxine (SYNTHROID) tablet 100 mcg 100 mcg, oral, Daily (early AM), First dose on Thu03/21/20 at 0600, Administer on an empty stomach, preferably 30 minutes before breakfast. Take 4 hours apart from antacids, iron and calcium products. 0530 (Given - Provider: Flavia Beltran RN) 0559 (Given - Provider: Mariia Cabrera RN) 0559 (Given - Provider: Tiffany Burgos RN) lidocaine (LIDODERM) 5 % patch 2 patch 2 patch, transdermal, Administer over 12 Hours, Daily, First dose on Thu03/23/20 at 0900, Do not cover the holes on the top side of the patch., Apply to affected area: back 08 (Medication Applied - Provider: Tisha Maria, DEREK)2041 (Medication Removed - Provider: Mariia Cabrera, DEREK) 0834 (Medication Applied - Provider: Tisha Maria RN)2139 (Medication Removed - Provider: Tiffany Burgos, DEREK) 08 (Medication Applied - Provider: Aurelia Whitfield, DEREK)08 (Due: Medication Removed - Provider: Automatic Discharge Provider - Comment: Time automatically adjusted from order being discontinued) lisinopriL (PRINIVIL,ZESTRIL) tablet 10 mg 10 mg, oral, Daily (early AM), First dose on Thu03/21/20 at 0600, Indications: hypertension 0530 (Given - Provider: Flavia Beltran RN) 0559 (Given - Provider: Mariia Cabrera, DEREK) 0559 (Given - Provider: Tiffany Burgos, DEREK) metoprolol tartrate (LOPRESSOR) immediate release tablet 75 mg 75 mg, oral, 2 times daily, First dose (after last modification) on Thu03/22/20 at 0900 0825 (Given - Provider: Tisha Maria, DEREK)2040 (Given - Provider: Mariia Cabrera, DEREK) 0834 (Given - Provider: Tisha Maria, DEREK)2139 (Given - Provider: Tiffany Burgos, DEREK) 08 (Given - Provider: Aurelia Whitfield, DEREK) polyethylene glycol (MIRALAX) packet 17 g 17 g, oral, Daily, First dose on Thu03/22/20 at 0900, Indications: constipation 0826 (Given - Provider: Tisha Maria, DEREK) 0836 (Not Given - Provider: Tisha Maria, DEREK - Reason: Patient/family refused) 08 (Given - Provider: Aurelia Whitfield, DEREK) pravastatin (PRAVACHOL) tablet 20 mg 20 mg, oral, Nightly, First dose on Thu03/20/20 at 2100 2040 (Given - Provider: Mariia Cabrera, DEREK) 2139 (Given - Provider: Tiffany BurgosDEREK) predniSONE (DELTASONE) tablet 5 mg 5 mg, oral, Daily, First dose on Thu03/20/20 at 0900 0825 (Given - Provider: Tisha Maria RN) 0834 (Given - Provider: Tisha Maria RN) 0810 (Given - Provider: Aurelia Whitfield, DEREK) senna-docusate (PERICOLACE) 8.6-50 mg per tablet 2 tablet 2 tablet, oral, 2 times daily, First dose (after last modification) on Thu03/22/20 at 0900 0934 (Not Given - Provider: Tisha Maria RN - Reason: Order parameters not met)2040 (Given - Provider: Mariia Cabrera RN) 0834 (Given - Provider: Tisha Maria RN)2139 (Given - Provider: Tiffany Burgos, DEREK) 0810 (Given - Provider: Aurelia Whitfield, DEREK) tacrolimus (PROGRAF) capsule 0.5 mg 0.5 mg, oral, Every 12 hours scheduled, First dose (after last modification) on Thu03/22/20 at 2100, Avoid grapefruit juice, Indications: immunosuppression 0825 (Given - Provider: Tisha Maria, DEREK)2039 (Given - Provider: Mariia Cabrera RN) 0834 (Given - Provider: Tisha Maria RN)2137 (Given - Provider: Tiffany Burgos, DEREK) 0810 (Given - Provider: Aurelia Whitfield, DEREK) trimethoprim (TRIMPEX) tablet 100 mg 100 mg, oral, Nightly, First dose on Thu03/20/20 at 2100, Indications: Prevention of Bacterial Urinary Tract Infection 2057 (Given - Provider: Mariia Cabrera RN) 0001 (Given - Provider: Tiffany Burgos, DEREK) PRN Medication Order 03/26/2020 03/27/2020 03/28/2020 benzocaine (ORAJEL) 10 % mucosal gel mouth/throat, 3 times daily PRN, mucositis, Starting on Thu03/26/20 at 2255 cyclobenzaprine (FLEXERIL) tablet 5 mg 5 mg, oral, 3 times daily PRN, muscle spasms, Starting on Thu20 at 1445 2211 (Given - Provider: Mariia Cabrera, RN) 0817 (Given - Provider: Aurelia Whitfield, RN) traMADoL (ULTRAM) tablet 50 mg 50 mg, oral, 4 times daily PRN, 1st line for pain, Starting on 03/25/20 at 1246 2211 (Given - Provider: Mariia Cabrera, RN) 0559 (Given - Provider: aMriia Cabrera, RN)1436 (Return to [facility] - Provider: Tisha Maria, RN)1722 (Given - Provider: Tisha Maria, RN)2139 (Given - Provider: Tiffany Burgos, DEREK) 0357 (Given - Provider: Tiffany Burgos RN)1351 (Given - Provider: Aurelia Whitfield, DEREK) documented in this encounter Orders Medications Ordered That Taras ht Not Have Been Administered Count Last Ordered Date First Ordered Date benzocaine (ORAJEL) 10 % mucosal gel 1 03/07 acetaminophen (TYLENOL) tablet 1,000 mg 1 0 03/20/2020 HYDROmorphone (DILAUDID) injection 0.2 mg 1 03/20/2020 Diet Count Last Ordered Date First Orde red Date ADULT DISCHARGE DIET 1 03/28/2020 Nursing Count Last Ordered Date First Orde red Date BRACE APPLICATION 1 03/28/2020 CARE ORDER/INSTRUCTION 1 03/28/2020 DISCHARGE ACTIVITY 5 03/28/2020 DISCHARGE CALL PROVIDER 7 03/28/2020 DISCHARGE DRESSING 6 03/28/2020 FOLLOW UP WITH ESTABLISHED PROVIDER 1 03/28 OTHER FOLLOW UP 1 03/28/2020 WEIGHT BEARING STATUS 1 03/28/2020 CONTINUOUS PULSE OXIMETRY 1 03/20/2020 INSERT ROSALES CATHETER 1 03/19/2020 Consult Count Last Ordered Date First Orde red Date IP CONSULT TO GENERAL SURGERY 1 03/19/2020 IP CONSULT TO ORTHO SPINE 1 03/19/2020 CORE MEASURES Count Last Ordered Date First Ord ered Date REASON FOR NO VTE PROPHYLAXI S - HOSPITAL ADMISSION - MEDICATIONS 1 03/20/2020 ADT Patient Update Count Last Ordered Date Firs t Ordered Date ED IP DECISION TO ADMIT 1 03/20/2020 documented in this encounter Care Teams Mortgage Field Inspector Relationship Specialty Start Date End Date Merlin Nunez MD [address] [place] [address] PCP - General Internal Medicine 02/20/20 11/02/22 Gregg Peace, DEREK [place] [facility] Transplant 01/26/1907/04 Regina Contreras RN [place] [facility] 12/07/19 Rosana Nunez MD [address] [address] Consulting Physician Internal Medicine 03/28/20 documented as of this encounter
--- OUTSIDE RECORDS SUMMARY | 2024-06-27 01:56 | XMS_ITS | Encounter Summary ---
Author Organization [facility] Healthcare Address [address] [place] [address] Care Team Providers Care Living Manager Name Role Phone Burke Rosenberg DO Primary Care Provider Luther Bone RN Unavailable Gregg Peace RN Unavailable Encounter Details Date Type Department Care Team (Late st Contact Info) Description 06/09/2018 Orders Only [facility] Transplant Kidney [phone] [place] [address] Nadia Garland Kidney transplanted (Primary Dx); Drug therapy; Hyperlipidemia, unspecified hyperlipidemia type Social History Tobacco Use Types Packs/Day Years Used Date Smoking Tobacco: Never Smokeless Tobacco: Never Alcohol Use Standard Drinks/Week Comments No 0 (1 standard drink = 0.6 oz pur e alcohol) Comments No Sex and Gender Information Value Date Recorded Sex Assigned at Not on file 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 Q-monthly [place] Q-quarterly labs HT TRAINER documented in this encounter Plan of Treatment Not on file documented as of this encounter Visit Diagnoses Diagnosis Kidney transplanted- Primary Kidney replaced by transplant Drug therapy Encounter for other specified aftercare Hyperlipidemia, unspecified hyperlipidemia type documented in this encounter Care Teams Living Manager Relationship Specialty Start Date End Date Burke Rosenberg DO [address] [facility] [address] [place] [address] PCP - General 10/09/16 02/19/20 Luther Bone, DEREK [address] [facility] [address] [place] [address] Media Producer 12/01/17 9 Gregg Peace, DEREK [address] [facility] [address] [place], [place] [id number] Media Producer 12/08/17 documented as of this encounter
--- OUTSIDE RECORDS SUMMARY | 2024-06-27 01:56 | XMS_ITS | Encounter Summary ---
Author Organization [facility] Address [address] [facility] [address] [place] [address] Care Team Providers Care Healthcare Consulting Manager Name Role Phone Burke Rosenberg DO Primary Care Provider [phone] Luther Bone RN Unavailable [phone] Gregg Peace RN Unavailable Reason for Referral * (Routine) - Closed Specialty Diagnoses / Procedures Referred By Contac t Referred To Contact Diagnoses Sensorineural hearing loss (SNHL) of both ears Procedures Audiogram Leno Hill MD Phone: tel: fax: [facility] Referral ID Status Reason Start Date Expiration Date Visits Re quested Visits Authorized [id number] Closed 12/16/2018 06/26/2020 1 1 Reason for Visit * Reason Comments Audiometric Evaluation Encounter Details Date Type Department Care Team (Latest Contact Info) Description 12/16/2018 10:40 AM CDT Procedure visit [facility] ENT Specialists - [address] [facility] [address] [place] [id number] Jesusita Richardson Au.D. 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 - 12/16/2018 10:40 AM CDTAssociated Order(s): Audiogram Post-Procedure Diagnose(s): Sensorineural hearing loss (SNHL) of both ears Audiogram Performed by: Braeden Mcghee Authorized by: Leno Hill MD Juliet was seen today for an audiogram. She reported bilateral hearing loss worse in the left ear. She was seen by Dr. Hill prior to testing for an ear cleaning. She states he removed a partial wax impaction from the right ear and complete wax impaction from the left. She did not notice any immediate changes to hearing after wax removal. She denies ear pain, ear pressure, tinnitus, dizziness, noise exposure, and family history of hearing loss. See: audiogram and immittance audiometry Otoscopy was performed and was clear bilaterally. Pure tone audiometry was performed and revealed: Right - normal sloping to moderately-severe sensorineural hearing loss Left - slight sloping to moderately-severe sensorineural hearing loss Speech recognition thresholds (SRT) test was performed and revealed: Both - Consistent with mild hearing loss Word recognition testing (WRS) was performed using recorded of NU-6 lists of a male speaker: Both - Normal/Excellent Tympanometry was attempted. The equipment is broken so results are difficult to interpret. Plan/Recommendations: Follow-up with Dr. Hill Retest 12 months/PRN Hearing aid evaluation pending medical clearance and per patient motivation Hearing protection in noise documented in this encounter Plan of Treatment Not on file documented as of this encounter Procedures Procedure Name Priority Date/Time Associated Diagnosis Comments AUDIOGRAM Routine 12/16/2018 10:40 AM CDT Sensorineural hearing loss (SNHL) of both ears documented in this encounter Results * AUDIOGRAM (12/16/2018 10:40 AM CDT) Narrative Jesusita Richardson Au.D. - 12/16/2018 10:40 AM CDT Braeden Mcghee ? 12/16/2018 12:20 PM Audiogram Performed by: Braeden Mcghee Authorized by: Leno Hill MD Leno Hill MD AUDIOLOGY SERVICES ORDERABLE S Final Result documented in this encounter Visit Diagnoses Diagnosis Sensorineural hearing loss (SNHL) of both ears- Primary documented in this encounter Care Teams Healthcare Consulting Manager Relationship Specialty Start Date End Date Burke Rosenberg DO [address] [facility] [address] [place] [address] PCP - General 10/09/16 02/19/20 Luther Bone RN [address] [facility] [address] [place] [address] Anesthesia Associate 12/01/17 Gregg Espinoza RN [address] [facility] [address] [place] [address] Anesthesia Associate 12/08/17 documented as of this encounter
--- OUTSIDE RECORDS SUMMARY | 2024-06-27 01:56 | XMS_ITS | Encounter Summary ---
Author Organization [facility] Healthcare Address [address] [place] [address] Care Team Providers Care Tobacco Curer Name Role Phone Burke Rosenberg DO Primary Care Provider [phone] Luther Bone RN Unavailable [phone] Gregg Peace RN Unavailable Reason for Visit * Reason Onset Date Comments Med Refill 12/16/2018 Encounter Details Date Type Department Care Team (Late st Contact Info) Description 12/16/2018 Telephone [facility] Transplant Kidney [address] [address] [phone] [place] [address] Nadia Garland Med Refill Social History Tobacco Use Types Packs/Day Years Used Date Smoking Tobacco: Never Smokeless Tobacco: Never Alcohol Use Standard Drinks/Week Comments No 0 (1 standard drink = 0.6 oz pur e alcohol) Comments No Sex and Gender Information Value Date Recorded Sex Assigned at Not on file 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 Please call at [phone]. documented in this encounter Plan of Treatment Not on file documented as of this encounter Visit Diagnoses Not on filedocumented in this encounter Care Teams Tobacco Curer Relationship Specialty Start Date End Date Chet Burke SahuDO [place] [address] [facility] [address] [place] [address] PCP - General 10/09/16 02/19/20 Luther Bone, DEREK [address] [facility] [address] [place], [place] [id number] Lead Process Engineer 12/01/17 9 Gregg Peace, DEREK [address] [facility] [address] [place] [address] Lead Process Engineer 12/08/17 documented as of this encounter
--- OUTSIDE RECORDS SUMMARY | 2024-06-27 01:56 | XMS_ITS | Encounter Summary ---
Author Organization [facility] Address [address] [place] [address] Phone Care Team Providers Care Clin Nurse Name Role Phone Burke Rosenberg DO Primary Care Provider Gregg Peace RN Unavailable Encounter Details Date Type Department Care Team (Late st Contact Info) Description 04/21/2019 1:30 PM CDT Office Visit [facility] Ophthalmology [address] [place] [address] Butch Maria MD [address] [facility] [address] [place] [address] Pseudophakia of both eyes (Primary Dx) Social History Tobacco Use Types Packs/Day Years Used Date Smoking Tobacco: Never Smokeless Tobacco: Never Alcohol Use Standard Drinks/Week Comments No 0 (1 standard drink = 0.6 oz pur e alcohol) Comments No Sex and Gender Information Value Date Recorded Sex Assigned at Not on file 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 Return in 2 weeks for POV and MRx OU. documented in this encounter Plan of Treatment Not on file documented as of this encounter Visit Diagnoses Diagnosis Pseudophakia of both eyes- Primary Lens replaced by other means documented in this encounter Eye Exam Visual Acuity (Snellen - Linear) Right eye Left eye Dist sc 20/50 +1 Tonometry (Applanation, 1:29 PM) Right eye Left eye Pressure 18 Slit Lamp Exam Right eye Left eye Lids/Lashes Normal Conjunctiva/Sclera Trace Injection Cornea 2+ descemets folds Anterior Chamber Deep, Quiet Iris Round and reactive Lens Posterior chamber in traocular lens, no Posterior capsular opacification Care Teams Clin Nurse Relationship Specialty Start Date End Date Burke Rosenberg DO [address] [place] [address] PCP - General 10/09/16 02/19/20 Gregg Peace RN [address] [place] [address] Salvage Determiner Transplant 01/26/1907/04 documented as of this encounter
--- OUTSIDE RECORDS SUMMARY | 2024-06-27 01:56 | XMS_ITS | Encounter Summary ---
Author Organization [facility] Healthcare Address [address] [place] [address] Care Team Providers Care Unit Trust Manager Name Role Phone Burke Rosenberg DO Primary Care Provider Luther Bone RN Unavailable Gregg Peace RN Unavailable Encounter Details Date Type Department Care Team (Late st Contact Info) Description 12/28/2018 Orders Only [facility] Health Information Management [address] [place] [address] Scanning, Provider Social History Tobacco Use Types Packs/Day Years Used Date Smoking Tobacco: Never Smokeless Tobacco: Never Alcohol Use Standard Drinks/Week Comments No 0 (1 standard drink = 0.6 oz pur e alcohol) Comments No Sex and Gender Information Value Date Recorded Sex Assigned at Not on file 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 Gender Identity Not on file Sexual Orientation Not on file documented as of this encounter Plan of Treatment Not on file documented as of this encounter Procedures Procedure Name Priority Date/Time Associated Diagnosis Comments SCAN - LABS 12/28/2018 2:39 PM CDT documented in this encounter Results * SCAN - LABS (12/28/2018 2:39 PM CDT) us Provider Scanning Final Result documented in this encounter Visit Diagnoses Not on filedocumented in this encounter Care Teams Unit Trust Manager Relationship Specialty Start Date End Date Burke Rosenberg DO [address] [facility] [address] [place] [address] PCP - General 10/09/16 02/19/20 Luther Bone RN [address] [facility] [address] [place] [address] Lace Tearing Supervisor 12/01/17 9 Gregg Peace RN [address] [facility] [address] [place] [address] Lace Tearing Supervisor 12/08/17 documented as of this encounter
--- OUTSIDE RECORDS SUMMARY | 2024-06-27 01:56 | XMS_ITS | Encounter Summary ---
Author Organization [facility] Healthcare Address [address] [place] [address] Care Team Providers Care Operational Meteorologist Name Role Phone Burke Rosenberg DO Primary Care Provider Luther Bone RN Unavailable Gregg Peace RN Unavailable Encounter Details Date Type Department Care Team (Late st Contact Info) Description 09/23/2018 Orders Only 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 Gender Identity Not on file Sexual Orientation Not on file documented as of this encounter Plan of Treatment Not on file documented as of this encounter Procedures Procedure Name Priority Date/Time Associated Diagnosis Comments SCAN - LABS 09/23/2018 8:45 AM CDT documented in this encounter Results * SCAN - LABS (09/23/2018 8:45 AM CDT) us Provider Scanning Final Result documented in this encounter Visit Diagnoses Not on filedocumented in this encounter Care Teams Operational Meteorologist Relationship Specialty Start Date End Date Burke Rosenberg DO [address] [facility] [address] [place] [address] PCP - General 10/09/16 02/19/20 Luther Bone RN [address] [facility] [address] [place] [address] Route Delivery Service Driver 12/01/17 9 Gregg Peace RN [address] [facility] [address] [place] [address] Route Delivery Service Driver 12/08/17 documented as of this encounter
--- OUTSIDE RECORDS SUMMARY | 2024-06-27 01:56 | XMS_ITS | Encounter Summary ---
Author Organization [facility] Healthcare Address [address] [place] [address] Care Team Providers Care Motorcycle Subassembly Repairer Name Role Phone Burke Rosenberg DO Primary Care Provider Gregg Peace RN Unavailable [phone] Encounter Details Date Type Department Care Team (Late st Contact Info) Description 05/03/2019 Orders Only [facility] Health Information Management [address] [place] [address] Scanning, Provider Social History Tobacco Use Types Packs/Day Years Used Date Smoking Tobacco: Never Smokeless Tobacco: Never Alcohol Use Standard Drinks/Week Comments No 0 (1 standard drink = 0.6 oz pur e alcohol) Comments No Sex and Gender Information Value Date Recorded Sex Assigned at Not on file 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 Gender Identity Not on file Sexual Orientation Not on file documented as of this encounter Plan of Treatment Not on file documented as of this encounter Procedures Procedure Name Priority Date/Time Associated Diagnosis Comments SCAN - LABS 05/03/2019 3:04 PM CDT SCAN - LABS 05/03/2019 2:58 PM CDT documented in this encounter Results * SCAN - LABS (05/03/2019 3:04 PM CDT) us Provider Scanning Final Result * SCAN - LABS (05/03/2019 2:58 PM CDT) us Provider Scanning Final Result documented in this encounter Visit Diagnoses Not on filedocumented in this encounter Care Teams Motorcycle Subassembly Repairer Relationship Specialty Start Date End Date Burke Rosenberg DO [address] [facility] [address] [place] [address] PCP - General 10/09/16 02/19/20 Gregg Peace, DEREK [address] [facility] [address] [place] [address] Lift Truck Mechanic Transplant 01/26/1907/04 documented as of this encounter
--- OUTSIDE RECORDS SUMMARY | 2024-06-27 01:56 | XMS_ITS | Encounter Summary ---
Author Organization [facility] Address [address] [place] [address] Care Team Providers Care Cushion Gum Applicator Name Role Phone Burke Rosenberg DO Primary Care Provider Gregg Peace RN Unavailable Encounter Details Date Type Department Care Team (Late st Contact Info) Description 04/11/2019 10:55 AM CDT Anesthesia Event [facility] [address] [place] [address] Bertin Quinones MD [address] [place] [address] Sherri Queen NP [address] [facility] [id number] [place] [address] Anesthesia Record Procedure Summary Procedure Name Responsible Anesthesiologist Anesthesia Start Time Anesthesia Stop Time EXTRACTION CATARACT - PHACOEMULSIFICATION AND LENS IMPLANT (Right: Eye) Bertin Quinones MD 04/11/19 1055 04/11/19 1 130 Events Date Time Event Comment 04/11/2019 1038 1052 Quick Note Existing PIV qu estionable, new PIV started. 1053 Start Supplemental O2 1055 An Start 1055 An Start Data 1055 In Room 1057 An Data Art 1057 An Induction The patient was reevaluated immediately before moderate or deep sedation use and before anesthesia induction. 1104 Proc Start 1104 Incision Start 1120 an stop data 1121 Proc Fin 1124 Out of Room 1129 Handoff to RN I completed my handoff to the receiving nurse during which we: 1. Patient identified 2. Responsible provider identified 3. Pertinent medical history reviewed 4. Procedure type and surgical course discussed 5. Intraoperative anesthetic management and any significant issues discussed 6. Expectations and concerns for postop period discussed 7. Questions solicited from receiving nurse 8. Patient disposition at the time of handoff: PACU 1130 An Stop 1146 Release from care Meds Name Total propofol 30 mg lidocaine 2 % 20 mg labetalol (NORMODYNE,TRANDATE) injection 5 mg 2.5 mg * Agents Name O2 N2O Air * Blood No blood administrations on file. Lines, Drains, and Airways Type Details Placement Removal RETIRED Wound Abrasion(s); 4 (Retired LDA, Removed/Completed by [employer] with LDA Utility); 1213 (Retired LDA, Removed/Completed by [employer] with LDA Utility) 04/06/18 1345 by 06/07/24 1213 by Discharge Provider, Automatic Peripheral IV Placement Date: 05/05/18; Placement Time: 920; Catheter Size: 22 G; Orientation: Right; Location: Hand; Site Prep: Chlorhexidine; Inserted by: Delfina Butler; Insertion Attempts: 2; Patient Tolerance: Tolerated well; Removal Date: 03/19/20; Removal Time: 2029; Removal Reason: Not present on admission 05/05/18 0921 by Brad Horta RN 03/19/20 2030 by Adolfo Shi, DEREK RETIRED Surgical Site 05/05/18; 1000; Emily ft; Eye; 01/01/21; 1021 05/05/18 1000 by Gely Balderas RN 01/01/21 1021 by Nato Vargas, DEREK RETIRED Surgical Site 04/11/19; 1023; Ri ght; Eye; 01/01/21; 1021 04/11/19 1023 by Eitan Condon RN 01/01/21 1021 by Nato Vargas, RN Peripheral IV Placement Date: 04/11/19; Placement Time: 1029; Catheter Size: 22 G; Orientation: Right; Location: Antecubital; Site Prep: Chlorhexidine; Inserted by: alaina Contreras; Insertion Attempts: 1; Patient Tolerance: Tolerated well; Removal Date: 04/11/19; Removal Time: 1052; Removal Reason: Infiltrated 04/11/19 1029 by Dorys Mercado RN 04/11/19 1052 by Alaina Contreras RN Peripheral IV Placement Date: 04/11/19; Placement Time: 1051; Catheter Size: 22 G; Orientation: Right; Location: Hand; Site Prep: Chlorhexidine; Inserted by: dr Quinones; Insertion Attempts: 1; Patient Tolerance: Tolerated well; Removal Date: 04/11/19; Removal Time: 1223 04/11/19 1051 by Alaina Contreras RN 04/11/19 1223 by Dorys Mercado RN Peripheral IV Placement Date: 04/11/19; Placement Time: 1103 (created via procedure documentation); Catheter Size: 22 G; Orientation: Right; Location: Hand; Site Prep: Alcohol; Insertion Attempts: 1; Removal Date: 04/11/19; Removal Time: 1224 04/11/19 1103 by Burke Liriano CRNA 04/11/19 1224 by Dorys Mercado RN documented in this encounter Social History Tobacco Use Types Packs/Day Years Used Date Smoking Tobacco: Never Smokeless Tobacco: Never Alcohol Use Standard Drinks/Week Comments No 0 (1 standard drink = 0.6 oz pur e alcohol) Comments No Sex and Gender Information Value Date Recorded Sex Assigned at Not on file Legal Sex 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 SLOT HOST Gender Identity Not on file Sexual Orientation Not on file documented as of this encounter OR Notes * Anesthesia Postprocedure Evaluation - Bertin Quinones MD - 04/11/2019 11:45 AM CDT Patient: Juliet Dunlap Procedure Summary Date: 04/11/19 Room / Location: [facility] OPERATING ROOM 01 / [facility] Operating Room Anesthesia Start: 1055 Anesthesia Stop: 1130 Procedure: EXTRACTION CATARACT - PHACOEMULSIFICATION AND LENS IMPLANT (Right Eye) Diagnosis: 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 cataract of right eye (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 cataract of right eye [H25.11]) Provider: Butch Maria MD Responsible Provider: Bertin Quinones MD Anesthesia Type: MAC ASA Status: 3 Anesthesia Type: MAC Last vitals Temp 36.2 ??C (97.2 ??F) (Temporal) Anesthesia Post Evaluation Patient location during evaluation: PACU Patient participation: complete - patient participated Level of consciousness: fully awake Pain management: satisfactory to patient Airway patency: adequate and patent Anesthetic complications: no Cardiovascular status: acceptable and hemodynamically stable Respiratory status: acceptable and room air Hydration status: acceptable Pt is: normothermic Nausea/Vomiting status: none Comments: Patient denies, headache, blurred vision, double vision, nausea. Informed patient if she were to experience these symptoms, she should go to the local ER. Patient to return home with . * Anesthesia Procedure Notes - Burke Liriano CRNA - 04/11/2019 11:02 AM CDT Associated Order(s): Peripheral IV Catheter Peripheral IV Catheter Patient location: pre-op holding Start time: 04/11/2019 10:50 AM Preprocedure prep: Prep solution: alcohol PPE: provider hat/mask PIV line: Laterality: right Site: hand Catheter size: 22 g Technique: anatomical landmarks, direct visualization and palpatation Procedure details: occlusive dressing applied and good blood return Number of attempts: 1 Assessment: Events: patient tolerated procedure well with no complications * Anesthesia Preprocedure Evaluation - Bertin Quinones MD - 03/15/2019 9:40 AM CDT [facility] Preoperative Evaluation Record Telephone Preoperative Evaluation (CAM-SC) - TELEPHONE ONLY, NO PHYSICAL EXAM Date: 03/15/19 Anesthesia Evaluation Juliet Dunlap is a 84 y.o. female Procedure(s): EXTRACTION CATARACT - PHACOEMULSIFICATION AND LENS IMPLANT Pre-Op Diagnosis Codes: * 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 cataract of right eye [H25.11] HISTORY HPI Juliet Dunlap is a 84 y.o. female who is being evaluated prior to undergoing cataract extraction for decreased vision . Past Medical History Information obtained from: patient and chart. Neurological Pertinent negatives: seizures; neuromuscular disease; CVA/stroke; TIA; CEA; ICA stenosis; dementia/mild cognitive impairment and carotid artery stent Cardiovascular + Hypertension Hypertension year diagnosed: 2009. + Hyperlipidemia (on statin) + CAD (30% lesion circ lesion and 40% RCA lesion per cardiac cath 2008) Pertinent negatives: UT ; CABG ; valvular heart disease; valve replacement; atrial fibrillation; arrhythmia; pacemaker/ICD; PVD; DVT/PE; negative for CHF; drug-eluting stent(s); bare metal stent(s) and coronary angioplasty Respiratory Pertinent negatives: COPD; asthma; sleep apnea (DANGELO); pulmonary hypertension; no O2 use outside thehospital and non-smoker Hepatic / Heme + Liver disease (hep b per previous lab work) - hepatitis B. Pertinent negatives: history of anemia; history of thrombocytopenia and history of Emerita positive Gastrointestinal + GERD - on daily therapy. Asymptomatic. + Hiatal hernia Renal / + Renal disease - ESRD + Dialysis (no longer, s/p kidney transplant 02/2013) Dialysis History: past dialysis Dialysis startyr: 2009 Dialysis end yr: 2012 Pertinent negatives: nephrolithiasis Musculoskeletal/Pain Pertinent negatives: chronic pain; chronic opioid use and previous treatment for opioid use disorder Endocrine / Other + Thyroid disease (states well controlled, denies symptoms of hyper or hypothyroidism) - hypothyroidism + Transplanted organ (02/2013) - kidney. + Infectious disease (UTI with E.coli 2013, UTi treated in 2016, shingles 2008 to the back, PNA with transplant 02/2013) - UTI. 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) + vision loss (decreased vision, especially at night and light glare, wears corrective lenses) Pertinent negatives: productive cough; wheezing; SOB; fever; chest pain; palpitations; orthopnea; pedal edema; PND; heavy menses; Sickle Cell disease/trait; previous transfusion; transfusion reaction; melena/hematochezia; bleeding problems; syncope; dizziness; muscle weakness; chronic pain; numbness /tingling; heartburn; nausea; dysphagia; diarrhea; dentures/partials; chipped/loose teeth; abdominal pain; diaphoresis and no unexpected weight change PAT Summary and Plans Cardiac risk classification of planned procedure: low cardiac risk. Preoperative assessment status: complete. Additional comments: Juliet Dunlap is a 84 y.o. female who is being evaluated prior to undergoing a low cardiac risk surgery. Revised Cardiac Risk Index factors are (ischemic heart disease) for a total RCRI of 1 out of 6. Functional capacity is 4-6 METs. Pt reports she does very well with anesthesia but feels she may be sensitive and alttle goes alongway Obstructive sleep apnea (DANGELO) screening status is pending neck circumference. Blood bank needs for day of procedure: No type and screen needed Pending labs/tests include: none Telephone assessment has been performed and DOS physical exam will need to be performed by anesthesia provider. Reviewed instructions prior to surgery with patient and sent written instructions via [employer]PS mail. Patient verbalizes understanding. Patient is s/p kidney transplant 02/2013, last nephrology office visit 06/09/2018 with next visit . Patient states she is able to lay flat without any difficulty for this procedure. The patient is on aspirin therapy and has a history of CAD We recommend that aspirin be continued throughout the perioperative period. However, if aspirin needs to be discontinued because the surgical risk of bleeding due to aspirin is considered to outweigh its benefits, we would then recommend stopping aspirin up to 7-10 days prior to the procedure and resuming aspirin therapy as soon as possible in the postoperative period. Discussed with Alvina in surgeons office. Please call the CPAP attending ([phone]) with any questions or to discuss alternative management plans. Preoperative evaluation performed by Sherri Queen NP on 03/15/19 at 9:44 AM.. Patient Active Problem List Diagnosis ??? Vasculitis (CMS/HCC) ??? History of kidney transplant ??? 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 cataract of right eye ??? Pseudophakia of left eye Past Medical History: Diagnosis Date ??? Abdominal pain ??? Bruising ??? CAD (coronary artery disease) ??? Chest pain ??? Fatigue ??? Frequent urination ??? GERD (gastroesophageal reflux disease) ??? Hepatitis B ??? Hiatal hernia schatzki ring ??? HL (hearing loss) ??? Hyperlipidemia ??? Hypertension ??? Hypothyroidism ??? Migraines ??? Pain with urination ??? Peritoneal dialysis status (CMS/HCC) From 2009 to 2012 prior to transplant ??? Postoperative delirium 02/2013 hallucinations s/p kidney transplant, saw flashes of color and puffs of smoke ??? Renal failure received 1 episode chemo to try to save Kidney in 2008 ??? Shingles 2008 ??? UTI (urinary tract infection) 01/2014 E.coli Past Surgical History: Procedure Laterality Date ??? AV FISTULA PLACEMENT Left with declotting ??? CARDIAC CATHETERIZATION 10/2008 ??? CATARACT EXTRACTION Left 05/05/2018 ? ? CENTRAL LINE PLACEMENT > 5 YEARS N/A 02/16/2013 ??? CYSTOSCOPY 08/2013 with placement of TVT-O midurethral ring ??? HERNIA REPAIR 09/2008 with Schatzki's ring ??? KIDNEY TRANSPLANT 02/2013 ??? PARATHYROIDECTOMY 1995 ??? RHINOPLASTY ??? TONSILLECTOMY 1944 ??? VEIN LIGATION AND STRIPPING 1992 OB History None Allergies Allergen Reactions ??? Nitrofurantoin Rash ??? Tetracycline Rash ??? Tetracyclines Rash ??? Levofloxacin Unknown ? ? Codeine Dizziness, Nausea & Vomiting and Nausea Only ??? Keflex [Cephalexin] Other (See comments) Trouble with bladder HOME MEDICATIONS : acyclovir (ZOVIRAX) 200 mg capsule amLODIPine (NORVASC) 10 mg tablet amoxicillin-clavulanate (AUGMENTIN) 875-125 mg per tablet aspirin 81 mg tablet azithromycin (ZITHROMAX) 250 mg tablet biotin 1 mg tablet cholecalciferol (VITAMIN D-3) 2,000 unit tablet cyanocobalamin (Vitamin B-12) 100 mcg tablet denosumab (PROLIA) 60 mg/mL syringe fluticasone (FLONASE) 50 mcg/actuation nasal spray hydrocortisone (PROCTOZONE-HC) 2.5 % rectal cream ketorolac (ACULAR LS) 0.4 % drops levothyroxine (SYNTHROID, LEVOTHROID) 100 mcg tablet lisinopril (PRINIVIL,ZESTRIL) 10 mg tablet metoprolol (LOPRESSOR) 25 mg tablet metoprolol (LOPRESSOR) 50 mg tablet ondansetron ODT (ZOFRAN-ODT) 4 mg disintegrating tablet pravastatin (PRAVACHOL) 20 mg tablet prednisoLONE acetate (PRED FORTE) 1 % ophthalmic suspension predniSONE (DELTASONE) 5 mg tablet sodium bicarbonate 650 mg tablet tacrolimus (PROGRAF) 1 mg capsule tobramycin (TOBREX) 0.3 % ophthalmic solution No current facility-administered medications for this encounter. Current Outpatient Medications: ??? acyclovir (ZOVIRAX) 200 mg capsule ??? amLODIPine (NORVASC) 10 mg tablet ??? amoxicillin-clavulanate (AUGMENTIN) 875-125 mg per tablet ??? aspirin 81 mg tablet ??? azithromycin (ZITHROMAX) 250 mg tablet ??? biotin 1 mg tablet ??? cholecalciferol (VITAMIN D-3) 2,000 unit tablet ??? cyanocobalamin (Vitamin B-12) 100 mcg tablet ??? denosumab (PROLIA) 60 mg/mL syringe ??? fluticasone (FLONASE) 50 mcg/actuation nasal spray ??? hydrocortisone (PROCTOZONE-HC) 2.5 % rectal cream ??? ketorolac (ACULAR LS) 0.4 % drops ??? levothyroxine (SYNTHROID, LEVOTHROID) 100 mcg tablet ??? lisinopril (PRINIVIL,ZESTRIL) 10 mg tablet ??? metoprolol (LOPRESSOR) 25 mg tablet ??? metoprolol (LOPRESSOR) 50 mg tablet ??? ondansetron ODT (ZOFRAN-ODT) 4 mg disintegrating tablet ??? pravastatin (PRAVACHOL) 20 mg tablet ??? prednisoLONE acetate (PRED FORTE) 1 % ophthalmic suspension ??? predniSONE (DELTASONE) 5 mg tablet ??? sodium bicarbonate 650 mg tablet ??? tacrolimus (PROGRAF) 1 mg capsule ??? tobramycin (TOBREX) 0.3 % ophthalmic solution Social History Tobacco Use Smoking Status Never Smoker Smokeless Tobacco Never Used Substance and Sexual Activity Alcohol Use No Substance and Sexual Activity Drug Use No Family History Problem Relation Age of Onset ??? Cancer Other Family history of Cancer; ??? Kidney disease Other Family history of Renal disease; ??? Stroke Other Family history of Stroke; ??? Pancreatic cancer Mother ??? Heart disease Father PAT Physical Exam There were no vitals filed for this visit. PT: No results found for requested labs within last 720 hours. INR: No results found for requested labs within last 720 hours. APTT: No results found for requested labs within last 720 hours. Hgb A1C: No results found for requested labs within last 720 hours. CBC RBC: No results found for requested labs within last 720 hours. RDW: No results found for requested labs within last 720 hours. MCHC: No results found for requested labs within last 720 hours. MCH: No results found for requested labs within last 720 hours. MCV: No results found for requested labs within last 720 hours. Hct: No results found for requested labs within last 720 hours. Hgb: No results found for requested labs within last 720 hours. WBC: No results found for requested labs within last 720 hours. MPV: No results found for requested labs within last 720 hours. Platelets: No results found for requested labs within last 720 hours. RDW CV: No results found for requested labs within last 720 hours. RDW Sd: No results found for requested labs within last 720 hours. BMP Glucose: No results found for requested labs within last 720 hours. Calcium: No results found for requested labs within last 720 hours. Sodium: No results found for requested labs within last 720 hours. Potassium: No results found for requested labs within last 720 hours. CO2: No results found for requested labs within last 720 hours. Chloride: No results found for requested labs within last 720 hours. BUN: No results found for requested labs within last 720 hours. Creatinine: 03/02/2019: 0.90 mg/dl DOS Physical Exam Medical history, medications, and allergies reviewed. Attestation: This PAT evaluation 03/15/2019. Airway Exam: Mallampati: II Cervical ROM: limited extension TM distance: 3 Patient presents with poor mouth opening. Cardiovascular Exam: Rate: regular Rhythm: regular Negative for Murmur Pulmonary Exam: LCTA, bilat EENT Exam: trachea midline Dental Exam: Appears intact Current state: Patient's current state is cooperative and interactive. Anesthesia Plan ASA 3 My patient is approved for the Anesthesia Controlled Medication protocol when under care of a INSURANCE DEFENSE PARALEGAL Planned anesthesia: MAC Induction: Induction: intravenous. Postoperative Plan: No plan for postoperative opioid use. No postoperative mechanical ventilation intended. Patient's planned disposition post procedure is Outpatient. Informed Consent: Discussed plan with INSURANCE DEFENSE PARALEGAL. Anesthesia plan and risks discussed with patient and spouse. Plan and Consent Comments: IV propofol to level of moderate sedation for injection of local by surgeon. Consent and Attending signature: I and/or my designee have discussed the anesthesia plan, benefits, possible alternatives, parental presence at time of induction (if indicated), and clinically relevant risks that may include dental injury, unintentional awareness, and/or other complications. The patient and/or parent/legal guardian understand, and agree to proceed. All questions answered. documented in this encounter Plan of Treatment Not on file documented as of this encounter Procedures Procedure Name Priority Date/Time Associated Diagnosis Comments ND AN PROCEDURE PLACEHOLDER Routine 04/11/2019 11:02 AM CDT Procedure Note - Burke Liriano CRNA - 04/11/2019 11:02 AM CDTThis note is in progress. Peripheral IV Catheter Patient location: pre-op holding Start time: 04/11/2019 10:50 AM Preprocedure prep: Prep solution: alcohol PPE: provider hat/mask PIV line: Laterality: right Site: hand Catheter size: 22 g Technique: anatomical landmarks, direct visualization and palpatation Procedure details: occlusive dressing applied and good blood return Number of attempts: 1 Assessment: Events: patient tolerated procedure well with no complications documented in this encounter Visit Diagnoses Not on filedocumented in this encounter Administered Medications Inactive Administered Medications - up to 3 most recent administrations Medication Order MAR Action Action Date Dose Rate Site labetalol (NORMODYNE,TRANDATE) injection 5 mg 5 mg, intravenous, at 30 mL/hr, Administer over 2 Minutes, Every 10 min PRN, high blood pressure, HTN (SBP>170) and HR >60, Starting on Thu04/11/19 at 1040, Pre-Op Given 04/11/2019 11:14 AM CDT 2.5 mg Given 04/11/2019 10:43 AM CDT 5 mg 30 mL/hr lidocaine (XYLOCAINE) 20 mg/mL (2 %) injection As needed, Starting on Thu04/11/19 at 1053, Anesthesia Intra-op, Indications: Administration of Local AnesthesiaIndications:Administration of Local Anesthesia Given 04/11/2019 10:53 AM CDT 20 mg propofol (DIPRIVAN) IV intravenous, As needed, Starting on Thu04/11/19 at 1053, Anesthesia Intra-op Given 04/11/2019 10:53 AM CDT 30 mg documented in this encounter Orders Procedures Count Last Ordered Date First Orde red Date Peripheral IV Catheter 1 04/11/2019 documented in this encounter Care Teams Cushion Gum Applicator Relationship Specialty Start Date End Date Burke Rosenberg DO [address] [address] PCP - General 10/09/16 02/19/20 Gregg Peace, DEREK [address] [address] Director Of Casework Department Transplant 01/26/1907/04 documented as of this encounter"
--- OUTSIDE RECORDS SUMMARY | 2024-06-27 01:56 | XMS_ITS | Encounter Summary ---
Author Organization [facility] Address [address] [place] [address] Phone Care Team Providers Care Uke Operator Name Role Phone Burke Rosenberg DO Primary Care Provider Luther Bone RN Unavailable [phone] Gregg Peace RN Unavailable [phone] Encounter Details Date Type Department Care Team (Late st Contact Info) Description 07/01/2018 Telephone [facility] Ophthalmology [address] [place] [address] Butch Maria MD [address] [place] [address] Social History Tobacco Use Types Packs/Day Years Used Date Smoking Tobacco: Never Smokeless Tobacco: Never Alcohol Use Standard Drinks/Week Comments No 0 (1 standard drink = 0.6 oz pur e alcohol) Comments No Sex and Gender Information Value Date Recorded Sex Assigned at Not on file Legal Sex 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 FULL SERVICE SUPERVISOR Gender Identity Not on file Sexual Orientation Not on file documented as of this encounter Miscellaneous Notes * Telephone Encounter - Alvina Maria - 07/01/2018 4:05 PM CST Surgery cancelled. O.R. Notified. SERVICE SUPERVISOR * Telephone Encounter - Butch Maria MD - 07/01/2018 12:29 PM FULL SERVICE SUPERVISOR This pt's surgery is scheduled for 07/12 (next to last case). I guess this needs to be cancelled and move the last case up. Let me know if you have any questions. SERVICE SUPERVISOR * Telephone Encounter - Isai Talavera - 07/01/2018 12:05 PM CST Received call from Adeline in Anesthesia re: pt's Sx w/ Dr. Maria. She reports that Sx needs to be cancelled. The pt has an infection on her leg and has been on anti-biotics for 2 weeks. The pt is being followed by would care and vascular Sx, and may need vascular Sx prior to Cat Sx. Please advise Dr. Maria. SERVICE SUPERVISOR documented in this encounter Plan of Treatment Not on file documented as of this encounter Visit Diagnoses Not on filedocumented in this encounter Care Teams Uke Operator Relationship Specialty Start Date End Date Burke Rosenberg DO [address] [facility] [address] [place] [address] PCP - General 10/09/16 02/19/20 Luther Bone RN [address] [facility] [address] [place] [address] Yacht Hand 12/01/17 9 Gregg Peace RN [address] [facility] [address] [place] [address] Yacht Hand 12/08/17 documented as of this encounter
--- OUTSIDE RECORDS SUMMARY | 2024-06-27 01:56 | XMS_ITS | Encounter Summary ---
Author Organization [facility] Healthcare Address [address] [place] [address] Care Team Providers Care Circular Sawyer Helper Name Role Phone Burke Rosenberg DO Primary Care Provider [phone] Luther Bone RN Unavailable [phone] Gregg Peace RN Unavailable [phone] Reason for Visit * Reason Onset Date Comments Test Results 08/03/2018 Encounter Details Date Type Department Care Team (Late st Contact Info) Description 08/03/2018 Telephone 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 Please call. LEDGE ARCHITECT documented in this encounter Plan of Treatment Not on file documented as of this encounter Visit Diagnoses Not on filedocumented in this encounter Care Teams Circular Sawyer Helper Relationship Specialty Start Date End Date Burke Rosenberg DO [address] [facility] [address] [place] [address] PCP - General 10/09/16 02/19/20 Luther Bone RN [address] [facility] [address] [place] [address] Rac Specialist 12/01/17 9 Gregg Peace RN [address] [facility] [address] [place] [address] Rac Specialist 12/08/17 documented as of this encounter
--- OUTSIDE RECORDS SUMMARY | 2024-06-27 01:56 | XMS_ITS | Encounter Summary ---
Author Organization [facility] Healthcare Address [address] [place] [address] Care Team Providers Care Real Estate Economist Name Role Phone Burke Rosenberg DO Primary Care Provider Gregg Peace RN Unavailable [phone] Encounter Details Date Type Department Care Team (Latest Contact Info) Description 04/11/2019 9:04 AM CDT - 04/11/2019 12:22 PM CDT Hospital Encounter [facility] at [facility] [address] [place] [address] Butch Maria MD [address] [facility] [address] [place] [address] 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 cataract of right eye Discharge Disposition: Discharge to home or self care Social History Tobacco Use Types Packs/Day Years Used Date Smoking Tobacco: Never Smokeless Tobacco: Never Alcohol Use Standard Drinks/Week Comments No 0 (1 standard drink = 0.6 oz pur e alcohol) Comments No Sex and Gender Information Value Date Recorded Sex Assigned at Not on file Legal Sex 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 CUSTODIAN Gender Identity Not on file Sexual Orientation Not on file documented as of this encounter Last Filed Vital Signs Vital Sign Reading Time Taken Comments Blood Pressure 160/89 04/11/2019 12:00 PM CDT Pulse 71 04/11/2019 12:05 PM CDT Temperature 36.2 ??C (97.2 ??F) 04/11/2019 11:35 AM C DT Respiratory Rate 13 04/11/2019 12:05 PM CDT Oxygen Saturation 96% 04/11/2019 12:05 PM CDT Inhaled Oxygen Concentration - - Weight 56.7 kg (125 lb) 03/15/2019 10:00 AM CDT Height 157.5 cm (5' 2 ) 03/15/2019 10:00 AM CDT Body Mass Index 22.86 03/15/2019 10:00 AM CDT documented in this encounter Discharge Diagnoses Diagnosis 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 cataract, right eye - AGE-RELATED NUCLEAR CATARACT, RIGHT EYE Hyperlipidemia, unspecified - HYPERLIPIDEMIA, UNSPECIFIED Atherosclerotic heart disease of [place] coronary artery without angina pectoris - ATHEROSCLEROTIC HEART DISEASE OF [place] CORONARY ARTERY WITHOUT ANGINA PECTORIS Gastro-esophageal reflux disease without esophagitis - GASTRO-ESOPHAGEAL REFLUX DISEASE WITHOUT ESOPHAGITIS 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) - HYPERTENSIVE CHRONIC KIDNEY DISEASE WITH STAGE 5 CHRONIC KIDNEY DISEASE OR END STAGE RENAL DISEASE End stage renal disease (CMS/HCC) (HCC) - END STAGE RENAL DISEASE End stage renal disease Kidney transplant status - KIDNEY TRANSPLANT STATUS Hypothyroidism, unspecified - HYPOTHYROIDISM, UNSPECIFIED Unspecified hearing loss, bilateral - UNSPECIFIED HEARING LOSS, BILATERAL Migraine, unspecified, not intractable, without status migrainosus - MIGRAINE, UNSPECIFIED, NOT INTRACTABLE, WITHOUT STATUS MIGRAINOSUS Other fatigue - OTHER FATIGUE Allergy status to other antibiotic agents status - ALLERGY STATUS TO OTHER ANTIBIOTIC AGENTS STATUS Personal history of other infectious and parasitic diseases - PERSONAL HISTORY OF OTHER INFECTIOUS AND PARASITIC DISEASES Personal history of urinary (tract) infections - PERSONAL HISTORY OF URINARY (TRACT) INFECTIONS 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 Lie on the opposite side the night following surgery if possible. 2. Leave the patch on until the next day. It will be removed in the office. 3. Bring you drops with you to the office, the following morning for your visit. 4. DO NOT rub or apply pressure to the operated eye. Use caution when bending down not to bump the operated eye for 1-[address] for 2-3 days after surgery. 6. Use your eye drops as directed until your next follow up visit. 7. Wear the shield at night when you go to bed for one week after surgery, wear your glasses duringthe day for protection. 8. You may shower, wash your hair and shave the following day after surgery. Be careful to avoid direct contact with the operated eye. 9. YOU WILL NOT damage your eye by reading, watching TV or doing any normal activities. 10. Expect your vision to change from day to day. If you have a SUDDEN DECREASE IN VISION, notify the office immediately. 11. A mild sticking pain, itching, and some discharge are normal. SUDDEN PAIN OR REDNESS IN THE EYEIS NOT NORMAL, and should be reported immediately. * Attachments The following attachments cannot be sent through Care Everywhere. * [facility] TO EXCELLENT CARE AFTER SURGERY documented in this encounter Medications at Time of Discharge cyanocobalamin (Vitamin B-12) 100 mcg tablet Take 1 tablet (100 mcg total) by mouth daily acyclovir (ZOVIRAX) 200 mg capsuleIndications:P rophylaxis, Medical Take 1 capsule (200 mg total) by mouth 2 (two) times a day 60 capsule 11 03/03/2019 0 aspirin 81 mg tabletIndications:pr evention of thrombosis Take 81 mg by mouth every morning. 3 biotin 1 mg tablet Take 2 tablets by mouth daily before breakfast 0 cholecalciferol (VITAMIN D-3) 2,000 unit tablet Take 1 tablet (2,000 Units total) by mouth daily. 30 tablet 11 02/18/2018 2 estradiol (ESTRACE) 0.01 % (0.1 mg/gram) vaginal cream 2 12/24/2018 9 fluticasone (FLONASE) 50 mcg/actuation nasal spray SHAKE LQ AND U 1 SPR IEN QD 3 03/19/2018 9 levothyroxine (SYNTHROID, LEVOTHROID) 100 mcg tablet Take 1 tablet (100 mcg total) by mouth piece presser before breakfast. 30 tablet 11 06/14/2018 9 lisinopril (PRINIVIL,ZESTRIL) 10 mg tablet Take 1 tablet (10 mg total) by mouth daily 90 tablet 3 12/24/2018 0 metoprolol (LOPRESSOR) 25 mg tablet Take 1 tablet (25 mg total) by mouth 2 (two) times a day 60 tablet 11 12/16/2018 9 metoprolol (LOPRESSOR) 50 mg tablet Take 1 tablet (50 mg total) by mouth 2 (two) times a day 180 tablet 3 12/09/2018 0 pravastatin (PRAVACHOL) 20 mg tablet Take 1 tablet (20 mg total) by mouth nightly 12/16/2016 4 predniSONE (DELTASONE) 5 mg tablet Take 1 tablet (5 mg total) by mouth daily. 30 tablet 11 05/21/2018 9 sodium bicarbonate 325 mg tablet TAKE 2 TABLET BY MOUTH ONCE DAILY 180 tablet 03/25/2019 0 tacrolimus (PROGRAF) 1 mg capsuleIndications:K idney replaced by transplant Take 1 capsule (1 mg total) by mouth 2 (two) times a day 60 capsule 11 01/05/2019 0 trimethoprim (TRIMPEX) 100 mg tabletIndications:Pr evention of Bacterial Urinary Tract Infection Take 50 mg by mouth nightly 0 amoxicillin-clavulan ate (AUGMENTIN) 875-125 mg per tablet Take by mouth every 12 hours 04/07/2018 9 calcium carbonate-vitamin D3 (Calcium 600 + D,3,) 1500 mg (600 mg elemental) -200 units per tablet CALCIUM 600+D TABLET 08/19/2018 1 ketorolac (ACULAR LS) 0.4 % drops Instill 1 drop into surgical eye three times daily starting two days before surgery 5 mL 1 03/29/2019 9 ondansetron ODT (ZOFRAN-ODT) 4 mg disintegrating tablet 9 oxybutynin XL (DITROPAN-XL) 10 mg 24 hr tablet Take 10 mg by mouth daily 9 prednisoLONE acetate (PRED FORTE) 1 % ophthalmic suspension Instill 1 drop into surgical eye three times daily starting after surgery 5 mL 1 03/29/2019 9 sodium bicarbonate 650 mg tablet Take by mouth 06/24/2018 11/10/19 2 1 tobramycin (TOBREX) 0.3 % ophthalmic solution Instill 1 drop into surgical eye three times daily starting two days before surgery 5 mL 1 03/29/2019 0 vitamin B complex with vitamin C tablet VITAMIN C TABLET 08/19/2018 1 documented as of this encounter Discharge Disposition Disposition Code Departure Means Destination Discharge to home or self care documented in this encounter H&P Notes * Butch Maria MD - 04/11/2019 10:35 AM CDT I have reviewed the H&P, examined the patient, and endorse the findings as written. Plan of Care : Based on the above findings, I consider Juliet Dunlap to be an acceptable risk for : Procedure(s): EXTRACTION CATARACT - PHACOEMULSIFICATION AND LENS IMPLANT Source Note - Butch Maria MD - 04/05/2019 9:36 PM CDT This patient is a 84 y/o WF presenting for cataract surgery OD. The patient is noticing vision lossaffecting daily activities. POHx - previous cataract surgery OS PMHx and Rx - see chart Allergies - Levofloxacin, Nitrofurantoin, TCN, Codeine, Cephalexin Ocular Exam - visual acuity (VA) OD - 20/50 best corrected, worsening to 20/100 under glare conditions Lens OD - 4+ brunescent NS Fundus OD - cup-to-disc ratio (C/D) 0.1, m/v/p - unremarkable (except for peripheral RPE changes) Imp: Visually significant dense nuclear cataract OD P: Proceed with phaco/IOL OD with possible Trypan Blue * Butch Maria MD - 04/05/2019 9:36 PM CDT This patient is a 84 y/o WF presenting for cataract surgery OD. The patient is noticing vision lossaffecting daily activities. POHx - previous cataract surgery OS PMHx and Rx - see chart Allergies - Levofloxacin, Nitrofurantoin, TCN, Codeine, Cephalexin Ocular Exam - visual acuity (VA) OD - 20/50 best corrected, worsening to 20/100 under glare conditions Lens OD - 4+ brunescent NS Fundus OD - cup-to-disc ratio (C/D) 0.1, m/v/p - unremarkable (except for peripheral RPE changes) Imp: Visually significant dense nuclear cataract OD P: Proceed with phaco/IOL OD with possible Trypan Blue documented in this encounter Miscellaneous Notes * Op Note - Butch Maria MD - 04/11/2019 11:04 AM CDT PREOPERATIVE DIAGNOSIS: Mature nuclear Cataract Right eye POSTOPERATIVE DIAGNOSIS: Mature nuclear Cataract Right eye SURGEON: Butch Maria MD PROCEDURE PERFORMED: Phacoemulsification of cataract with implantation of posterior chamber intraocular lens using Trypan Blue - Right Eye ANESTHESIA: Local/MAC with facial and retrobulbar injections of a 1:1 mixture of 2% Lidocaine and 0.75% Marcaine COMPLICATIONS: None INDICATIONS: The patient presents with vision loss affecting daily activities. This is associated with mature cataract. The above procedure is being performed to improve the patient's visual acuity and quality of life. DESCRIPTION OF PROCEDURE: In the pre-operative holding area, IV sedation was given and the local anesthetics administered as above. The patient was brought to the operating room and placed in the supine position. The surgical area was prepped with Betadine and draped in the usual sterile manner. The operating microscope was placed in position over the eye. A wire lid speculum was placed and several drops of Tetracaine instilled. A temporal clear corneal incision was made with a 2.4-mm keratotome in a self-sealing fashion and an adjacent paracentesis was made with a 1-mm sideport blade. These were self-sealing incisions. An air bubble followed by Trypan Blue dye were instilled into the anterior chamber. After 30 seconds, the bubble and dye were irrigated from the eye using BSS. Viscoat wasinjected through the main incision. A continuous curvilinear capsulorrhexis was created with a cystotome and completed with Utrata forceps. The anterior capsular remnant was removed. The nucleus of the lens was hydrodisected to free the nucleus from its surrounding cortical attachments. The phacoemulsification handpiece was then inserted. The nucleus was then sculpted and cracked into four quadrants using a two-handed technique. Each quadrant was removed in sequential fashion using pulsed phacoemulsification power. Total phaco power was 52.26 CDE. The cortex of the lens was then removed using the automated irrigation/aspirationsystem. The posterior capsule was polished to remove residual epithelialcells. The anterior chamberwas then reformed with Provisc to open up the capsular bag. A +28.5 D power Son model [id number] posterior chamber intraocular lens was placed into the capsular bag. Provisc was then removed using the automated irrigation/aspiration handpiece. Balanced salt solution was used to rehydrate the paracentesis and the temporal corneal wounds and was instilled into the anterior chamber to pressurize the globe to an adequate level. The wounds were checked and foundto be watertight. A collagen shield soaked in antibiotic and steroid drops was placed over the cornea and the eye was patched. A metal shield was placed over the patch. The patient tolerated the procedure well and there were no complications. The patient was transferred back to outpatient recovery i n good condition. * Brief Op Note - Butch Maria MD - 04/11/2019 11:04 AM CDT Operative Progress Note Surgical Team: Surgeon(s) and Role: * Butch Maria MD - Primary Anesthesiologist: Bertin Quinones MD CANAL BOAT CAPTAIN: Burke Liriano CRNA Recovery Rn: Eitan Condon RN; Nani Babb RN Scrub: [facility] DATE OF SURGERY : 04/11/2019 Preoperative Diagnosis: Pre-op Diagnosis * Dense 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 cataract of right eye [H25.11] Postoperative Diagnosis: Post-op Diagnosis *Dense 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 cataract of right eye [H25.11] Procedure(s): Procedure(s) (LRB): EXTRACTION CATARACT - PHACOEMULSIFICATION AND LENS IMPLANT (Right) using Trypan Blue Operative Findings: Dense brunescent nuclear cataract OD Estimated Blood Loss: No blood loss documented. Intraoperative Fluids: 0 mls Specimens: No specimen collected in procedure Implants: Implant Name Type Inv. Item Serial No. Market Research Coordinator Lot No. LRB No. Used SON SURGICAL [id number] .285 ACRYSOF IQ NATURAL STABLEFORCE ACRYSERT 6MM 13MM 1 PIECE FOLDABLE - [id number] - [id number] SON SURGICAL SN60WF .285 Acrysof Iq Natural Stableforce Acrysert 6mm 13mm 1 Piece Foldable [id number] Son Surgical Right 1 Blood/Blood Products Transfused: 0 mls Complications: None Condition on Discharge from the operating room was stable Butch Maria MD Date: 04/11/2019 Time: 11:25 AM No Resident involved on case * Pre-Procedure Instructions - Sherri Queen NP - 03/15/2019 10:15 AM CDT Center for Preoperative Assessment and Planning CPAP Clinic Location: [facility] CPAP The night before your surgery: * Do not eat or drink anything after midnight. This includes candy, mint, gums, chewable antacids (TUMS, Rolaids) and cough drops * Do not smoke after midnight the night before surgery. It is best to stop smoking now to improve your health. The morning of your surgery: * You may brush your teeth and rinse your mouth out. * Do not glue your dentures. * Do not wear jewelry, body piercings, makeup, hairpins, false eyelashes or contact lenses to the hospital. * Leave any valuables at home or with your family. You may want to bring a credit card if you want to use our Mobile Pharmacy for your discharge medications. Outpatient Surgery: * You must have a responsible adult drive you home and stay with you for 24 hours after your surgery * You cannot be alone at home or in a hotel * Please call your surgeon's office if you do not have someone to drive you home and/or stay with you after surgery * Please bring any items you may need to spend the night in the hospital. Sometimes patients need to be cared for in the hospital overnight. Instructions For Your Medications: Pre-Surgery Instructions: Medication Instructions ??? acyclovir (ZOVIRAX) 200 mg capsule Take on day of surgery if needed ??? aspirin 81 mg tablet Take on day of surgery if needed ??? biotin 1 mg tablet Don't take on day of surgery ??? cholecalciferol (VITAMIN D-3) 2,000 unit tablet Don't take on day of surgery ??? cyanocobalamin (Vitamin B-12) 100 mcg tablet Don't take on day of surgery ??? estradiol (ESTRACE) 0.01 % (0.1 mg/gram) vaginal cream Don't take on day of surgery ??? fluticasone (FLONASE) 50 mcg/actuation nasal spray Take on day of surgery if needed ??? levothyroxine (SYNTHROID, LEVOTHROID) 100 mcg tablet Take morning of surgery ??? lisinopril (PRINIVIL,ZESTRIL) 10 mg tablet Take on day of surgery if needed ??? metoprolol (LOPRESSOR) 25 mg tablet Take morning of surgery ??? metoprolol (LOPRESSOR) 50 mg tablet Take morning of surgery ??? pravastatin (PRAVACHOL) 20 mg tablet Take on day of surgery if needed ??? predniSONE (DELTASONE) 5 mg tablet Take on day of surgery if needed ??? sodium bicarbonate 650 mg tablet Take on day of surgery if needed ??? sulfamethoxazole-trimethoprim (BACTRIM DS,SEPTRA DS) 800-160 mg per tablet Take on day of surgery if needed ??? tacrolimus (PROGRAF) 1 mg capsule Take on day of surgery if needed ??? trimethoprim (TRIMPEX) 100 mg tablet Don't take on day of surgery ??? denosumab (PROLIA) 60 mg/mL syringe Take on day of surgery if needed ??? ketorolac (ACULAR LS) 0.4 % drops Take on day of surgery if needed ??? ondansetron ODT (ZOFRAN-ODT) 4 mg disintegrating tablet Take on day of surgery if needed ??? prednisoLONE acetate (PRED FORTE) 1 % ophthalmic suspension Take on day of surgery if needed ??? tobramycin (TOBREX) 0.3 % ophthalmic solution Take on day of surgery if needed General Instructions For Medications: ?? Stop all of these medications 5 days prior to your surgery: excedrin, motrin, advil, ibuprofen, aleve, naproxen, celebrex, celecoxib, meloxicam ?? Stop all of these medications 7-14 days prior to your surgery: Vitamin E, Fish Oil (Lovaza, Penn 3), Herbal medicines, Diet Pills ?? If you take aspirin, do not stop taking it unless you were instructed to do so. ?? If you have pain, you may take tylenol (acetaminophen). Do not take more than 6 tablets or 3000 mg (3 g) within a 24 period. Call your surgeon and the CPAP clinic if any of the following happens before surgery: ?? Any changes in your health ?? You have a fever ?? You have any signs of an infection (chest, urinary tract or tooth) ?? You have been to the Emergency Room or were in the hospital ?? You have started taking any new medications ?? You have questions about a bowel prep or special diet before surgery * Perioperative Nursing Note - Joseline Nichols RN - 03/15/2019 10:09 AM CDT Center for Preoperative Assessment and Planning Perioperative Nursing Note Telephone Preoperative Evaluation (CAM-SC) - TELEPHONE ONLY, NO PHYSICAL EXAM Date: 03/15/19 Vitals: 03/15/19 1000 Weight: 56.7 kg (125 lb) Height: 157.5 cm (5' 2 ) Social History Tobacco Use Smoking Status Never Smoker Smokeless Tobacco Never Used Substance and Sexual Activity Alcohol Use No Substance and Sexual Activity Drug Use No Outpatient Medications Marked as Taking for the 04/11/19 encounter (Hospital Encounter) with RichardH. Crow MD Medication Sig Dispense Refill ??? acyclovir (ZOVIRAX) 200 mg capsule Take 1 capsule (200 mg total) by mouth 2 (two) times a day (Patient taking differently: Take 200 mg by mouth piece presser before breakfast ) 60 capsule 11 ??? aspirin 81 mg tablet Take 81 mg by mouth every morning. ??? biotin 1 mg tablet Take 1 tablet by mouth daily before breakfast. ??? cholecalciferol (VITAMIN D-3) 2,000 unit tablet Take 1 tablet (2,000 Units total) by mouth daily. (Patient taking differently: Take 2,000 Units by mouth piece presser before breakfast. ) 30 tablet 11 ??? cyanocobalamin (Vitamin B-12) 100 mcg tablet Take 100 mcg by mouth piece presser before breakfast. ??? estradiol (ESTRACE) 0.01 % (0.1 mg/gram) vaginal cream 2 ??? fluticasone (FLONASE) 50 mcg/actuation nasal spray SHAKE LQ AND U 1 SPR IEN QD 3 ??? levothyroxine (SYNTHROID, LEVOTHROID) 100 mcg tablet Take 1 tablet (100 mcg total) by mouth piece presser before breakfast. 30 tablet 11 ??? lisinopril (PRINIVIL,ZESTRIL) 10 mg tablet Take 1 tablet (10 mg total) by mouth daily (Patient taking differently: Take 10 mg by mouth piece presser before breakfast ) 90 tablet 3 ??? metoprolol (LOPRESSOR) 25 mg tablet Take 1 tablet (25 mg total) by mouth 2 (two) times a day 60tablet 11 ??? metoprolol (LOPRESSOR) 50 mg tablet Take 1 tablet (50 mg total) by mouth 2 (two) times a day 180 tablet 3 ??? pravastatin (PRAVACHOL) 20 mg tablet Take 20 mg by mouth nightly. ??? predniSONE (DELTASONE) 5 mg tablet Take 1 tablet (5 mg total) by mouth daily. (Patient taking differently: Take 5 mg by mouth piece presser before breakfast ) 30 tablet 11 ??? sodium bicarbonate 650 mg tablet TAKE 1 TABLET BY MOUTH DAILY (Patient taking differently: TAKE1 TABLET BY MOUTH evening) 90 tablet 0 ??? sulfamethoxazole-trimethoprim (BACTRIM DS,SEPTRA DS) 800-160 mg per tablet TK 1 T PO BID 0 ??? tacrolimus (PROGRAF) 1 mg capsule Take 1 capsule (1 mg total) by mouth 2 (two) times a day 60 capsule 11 ??? trimethoprim (TRIMPEX) 100 mg tablet Take 100 mg by mouth nightly Implants Lens Son Surgical Sn60wf.295 Acrysof Iq Natural Stableforce Acrysert 6mm 13mm 1 Piece Foldable - [id number] - [id number] - Implanted (Left) Eye Inventory item: SON SURGICAL SN60WF.295 Acrysof Iq Natural Stableforce Acrysert 6mm 13mm 1 Piece Foldable Model/Cat number: [id number].295 Serial number: [id number] Market Research Coordinator: Son Surgical Lot number: 0 Device identifier: [id number] Device identifier type: GS1 As of 05/05/2018 Status: Implanted SKIN Piercings Remaining: No SCREENINGS Pain Assessment: No/denies pain Pain Assessment: No/denies pain Donna Fall Risk Score: 25 Juan Ramon index score: 90 Is someone currently physically or emotionally hurting you or your family?: Denies PATIENT CARE PLANNING Advance Directives (For Healthcare) Have you reviewed your Advance Directive and is it valid for this stay?: Yes Advance Directive: Patient has advance directive, copy not in chart Advance Directive not in Chart: Copy requested from family 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 Surgery location provided to patient ?? Arrival time and surgical time will be provided by your surgeon. ?? Bring a current list of all medications. ?? Bring your photo ID and insurance card with you. ?? Bring a method of payment for any deductible that may be due. Antiseptic/antibacterial soap will decrease the amount of germs on your skin. The chance of gettingan infection will reduce so it is important to minimize risk for infection by doing the following: ?? Change bed linens the night before surgery so you are sleeping in clean sheets . ?? Shower the evening before or the morning of surgery with an antibacterial soap such as dial or chlorhexidine. ?? Wash your hair and face with your regular shampoo ( no conditioners) and facial cleanser. Do notuse the antiseptic soap on your face or hair. ?? Do not shave the area where surgery is to be performed 24 hours prior to surgery. ?? No lotions, powders, creams, make-up, deodorant, hair products or Vaseline the morning of surgery ?? Wear clean loose comfortable clothes the morning of surgery ?? If your surgeon's office has not notified you of your surgery time within 2 days of your surgery, please call [phone] and ask for your surgeon's office documented in this encounter Plan of Treatment Not on file documented as of this encounter Procedures Procedure Name Priority Date/Time Associated Diagnosis Comments EXTRACTION CATARACT - PHACOEMULSIFICATION AND LENS IMPLANT 04/11/2019 10:55 AM CDT 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 cataract of right eye documented in this encounter Visit Diagnoses Diagnosis 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 cataract of right eye- Primary 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 cataract of right eye documented in this encounter Admitting Diagnoses Diagnosis 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 cataract of right eye documented in this encounter Administered Medications Inactive Administered Medications - up to 3 most recent administrations Medication Order MAR Action Action Date Dose Rate Site dilating cocktail ophthalmic solution 0.3 mL 0.3 mL, right eye, Once, On Thu04/11/19 at 1100, For 1 dose, Pre-Op, Ingredients per 0.3 mL Lidocaine 2% jelly 0.214 mL Phenylephrine 10% ophth drops 0.021 mL Cyclopentolate 1% ophth drops 0.021 mL Tropicamide 1% ophth drops 0.021 mL Ketorolac 0.5% ophth drops 0.021 mL, Indications: Mydriasis During Ocular SurgeryIndications:Mydriasis During Ocular Surgery Given 04/11/2019 10:27 AM CDT 0.3 mL Right Eye labetalol (NORMODYNE,TRANDATE) 5 mg/mL injection - ADS Override Pull Starting on Thu04/11/19 at 1036, For 1 dose, Created by mirlande garza labetalol (NORMODYNE,TRANDATE) injection 5 mg 5 mg, intravenous, at 30 mL/hr, Administer over 2 Minutes, Every 10 min PRN, high blood pressure, HTN (SBP>170) and HR >60, Starting on Thu04/11/19 at 1040, Pre-Op Given 04/11/2019 11:14 AM CDT 2.5 mg Given 04/11/2019 10:43 AM CDT 5 mg 30 mL/hr lidocaine 2 % and bupivacaine 0.75 % (EYE LOCAL) ophthalmic solution 5 mL 5 mL, periocular RIGHT , Once, On Thu04/11/19 at 1100, For 1 dose, Pre-Op, retrobulbar Given 04/11/2019 10:48 AM CDT 5 mL lidocaine 2 % and bupivacaine 0.75 % (EYE LOCAL) ophthalmic solution 5 mL 5 mL, periocular RIGHT , Once, On Thu04/11/19 at 1100, For 1 dose, Pre-Op, facial Given 04/11/2019 10:48 AM CDT 5 mL sodium chloride 0.9% flush 0.5-20 mL 0.5-20 mL, intra-catheter, As needed, line care, Starting on Thu04/11/19 at 1025, Pre-Op, Flush volume based on line type and size. Flush before and after each use. sodium chloride 0.9% infusion 30 mL/hr, intravenous, Continuous, Starting on Thu04/11/19 at 1100, Pre-Op documented in this encounter Discontinued Medications Medication Sig Discontinue Reason Start Date End Da te amLODIPine (NORVASC) 10 mg tablet Take 10 mg by mouth daily Therapy completed 03/15/2019 amoxicillin-clavulanat e (AUGMENTIN) 875-125 mg per tablet TK 1 T PO BID FOR 10 DAYS. Therapy completed 04/07/2018 03/15/2019 azithromycin (ZITHROMAX) 250 mg tablet ZPK Therapy completed 03/19/2018 03/15/2019 hydrocortisone (PROCTOZONE-HC) 2.5 % rectal cream 1 application to affected area Therapy completed 03/15/2019 cephalexin (KEFLEX) 500 mg capsule Take 500 mg by mouth 4 (four) times a day 04/11/2019 denosumab (PROLIA) 60 mg/mL syringe Inject 1 mL under the skin every 6 months. 04/11/2019 sulfamethoxazole-trime thoprim (BACTRIM DS,SEPTRA DS) 800-160 mg per tablet TK 1 T PO BID 02/24/2019 04/11/2019 documented as of this encounter Historical Medications * This list may reflect changes made after this encounter. sulfamethoxazole- trimethoprim (BACTRIM DS,SEPTRA DS) 800-160 mg per tablet TK 1 T PO BID 0 02/24/2019 04/11/2019 estradiol (ESTRACE) 0.01 % (0.1 mg/gram) vaginal cream 2 12/24/2018 05/26/2019 trimethoprim (TRIMPEX) 100 mg tabletIndications :Prevention of Bacterial Urinary Tract Infection Take 50 mg by mouth nightly 03/28/2020 added in this encounter Active and Recently Administered Medications Times are shown in CDT. Scheduled Medication Order 04/09/2019 04/10/2019 04/11/2019 dilating cocktail ophthalmic solution 0.3 mL (COMPLETED) 0.3 mL, right eye, Once, On Thu04/11/19 at 1100, For 1 dose, Pre-Op, Ingredients per 0.3 mL Lidocaine 2% jelly 0.214 mL Phenylephrine 10% ophth drops 0.021 mL Cyclopentolate 1% ophth drops 0.021 mL Tropicamide 1% ophth drops 0.021 mL Ketorolac 0.5% ophth drops 0.021 mL, Indications: Mydriasis During Ocular Surgery 1027 (Given - Provid er: Dorys Mercado RN)1100 (Due) lidocaine 2 % and bupivacaine 0.75 % (EYE LOCAL) ophthalmic solution 5 mL (COMPLETED) 5 mL, periocular RIGHT , Once, On Thu04/11/19 at 1100, For 1 dose, Pre-Op, retrobulbar 1048 (Given - Provid er: Alaina Contreras RN - Comment: per dr irizarry) lidocaine 2 % and bupivacaine 0.75 % (EYE LOCAL) ophthalmic solution 5 mL (COMPLETED) 5 mL, periocular RIGHT , Once, On Thu04/11/19 at 1100, For 1 dose, Pre-Op, facial 1048 (Given - Provid er: Alaina Contreras RN - Comment: per Dr irizarry) Continuous Medication Order 04/09/2019 04/10/2019 04/11/2019 sodium chloride 0.9% infusion 30 mL/hr, intravenous, Continuous, Starting on Thu04/11/19 at 1100, Pre-Op 1100 (Due) PRN Medication Order 04/09/2019 04/10/2019 04/11/2019 balanced salt soln no.2 irrig. (BSS) intraocular solution (CANCELED) As needed, Starting on Thu04/11/19 at 1058, Intra-Op 1058 (Given - Provid er: Butch Maria MD) chondroitin sulf-sod hyaluron (DUOVISC) 3 %-4 %(0.5 mL) 1 % (0.55 mL) intraocular kit (CANCELED) As needed, Starting on Thu04/11/19 at 1102, Intra-Op 1102 (Given - Provid er: Butch Maria MD) chondroitin sulf-sod hyaluron (VISCOAT) 4-3 % (40-30 mg/mL) intraocular injection (CANCELED) As needed, Starting on Thu04/11/19 at 1116, Intra-Op 1116 (Given - Provid er: Butch Maria MD) labetalol (NORMODYNE,TRANDATE) injection 5 mg 5 mg, intravenous, at 30 mL/hr, Administer over 2 Minutes, Every 10 min PRN, high blood pressure, HTN (SBP>170) and HR >60, Starting on Thu04/11/19 at 1040, Pre-Op 1043 (Given - Provid er: Alaina Contreras RN)1114 (Given - Provider: Burke Liriano CRNA) naloxone (NARCAN) 0.4 mg/mL injection 0.04-0.4 mg 0.04-0.4 mg, intravenous, Once as needed, other, excessive sedation/respiratory depression, Starting on Thu04/11/19 at 1141, For 1 dose, Phase I, Dilute 0.4 mg with 9 mL NS (final concentration 0.04 mg/mL). For respiratory depression (respiratory rate less than 6), administer 0.4 mg IVP over 30 seconds. For excessive sedation administer 0.04 mg (1 mL) every 1 minute until desired level of alertness. For IV, administer over 30 seconds., Indications: Opioid Toxicity ondansetron (ZOFRAN) injection 4 mg 4 mg, intravenous, Administer over 2 Minutes, Once as needed, nausea, vomiting, Starting on Thu04/11/19 at 1141, For 1 dose, Phase I, Proceed to prochlorperazine if ondansetron has been given within the last 6 hours. phenylephrine-ketorolac (OMIDRIA) 4 mL in balanced salt soln no.1 irrig. (BSS) 500 mL irrigation solution (CANCELED) As needed, Starting on Thu04/11/19 at 1043, Intra-Op 1043 (Given - Provid er: Butch Maria MD - Comment: BSS PLUS USED FOR THIS PROCEDURE) povidone-iodine (BETADINE PREP) 5 % ophthalmic solution (CANCELED) As needed, Starting on Thu04/11/19 at 1100, Intra-Op 1100 (Given - Provid er: Butch Maria MD - Comment: prep) prochlorperazine (COMPAZINE) injection 5 mg 5 mg, intravenous, Once as needed, nausea, vomiting, Starting on Thu04/11/19 at 1141, For 1 dose, Phase I, If nausea/vomiting not relieved by ondansetron within 30 minutes or if ondansetron has been given within the last 6 hours. sodium chloride 0.9% flush 0.5-20 mL 0.5-20 mL, intra-catheter, As needed, line care, Starting on Thu04/11/19 at 1025, Pre-Op, Flush volume based on line type and size. Flush before and after each use. tobramycin-dexamethasone (TOBRADEX) 0.3-0.1 % ophthalmic ointment (CANCELED) As needed, Starting on Thu04/11/19 at 1121, Intra-Op 1121 (Given - Provid er: Butch Maria MD) trypan blue (VISIONBLUE) 0.06 % intraocular solution (CANCELED) As needed, Starting on Thu04/11/19 at 1103, Intra-Op, Indications: Cataract Surgery Adjunct to Enhance Visualization 1103 (Given - Provid er: Butch Maria MD) documented in this encounter Orders Medications Ordered That Taras ht Not Have Been Administered Count Last Ordered Date First Ordered Date balanced salt soln no.2 irri g. (BSS) intraocular solution 1 04/11/2019 chondroitin sulf-sod hyaluro n (DUOVISC) 3 %-4 %(0.5 mL) 1 % (0.55 mL) intraocular kit 1 04/11/2019 chondroitin sulf-sod hyaluro n (VISCOAT) 4-3 % (40-30 mg/mL) intraocular injection 1 04/11/2019 moxifloxacin (VIGAMOX) 0.5 % ophthalmic solution 1 04/11/2019 naloxone (NARCAN) 0.4 mg/mL injection 0.04-0.4 mg 1 04/11/2019 ondansetron (ZOFRAN) injection 4 mg 1 04/11 phenylephrine-ketorolac (GI RUBEN) 4 mL in balanced salt soln no.1 irrig. (BSS) 500 mL irrigation solution 1 04/11/2019 povidone-iodine (BETADINE WA EP) 5 % ophthalmic solution 1 04/11/2019 prednisoLONE acetate (PRED F ORTE) 1 % ophthalmic suspension 1 04/11/2019 prochlorperazine (COMPAZINE) injection 5 mg 1 04/11/2019 sodium chloride 0.9% flush 0.5-20 mL 1 01/2019 sodium chloride 0.9% infusion 1 04/11/2019 tobramycin-dexamethasone (TO BRADEX) 0.3-0.1 % ophthalmic ointment 1 04/11/2019 trypan blue (VISIONBLUE) 0.0 6 % intraocular solution 1 04/11/2019 documented in this encounter Care Teams Real Estate Economist Relationship Specialty Start Date End Date Burke Rosenberg DO [address] [facility] [address] [place] [address] PCP - General 10/09/16 02/19/20 Gregg Peace, DEREK [address] [facility] [address] [place] [address] Pet Technologist Transplant 01/26/1907/04 documented as of this encounter
--- OUTSIDE RECORDS SUMMARY | 2024-06-27 01:56 | XMS_ITS | Encounter Summary ---
Author Organization [facility] Healthcare Address [address] [place] [address] Care Team Providers Care Kiln Burner Name Role Phone Burke Rosenberg DO Primary Care Provider Luther Bone RN Unavailable [phone] Gregg Peace RN Unavailable [phone] Encounter Details Date Type Department Care Team (Late st Contact Info) Description 11/01/2018 Orders Only [facility] Health Information Management [address] [place] [address] Scanning, Provider Social History Tobacco Use Types Packs/Day Years Used Date Smoking Tobacco: Never Smokeless Tobacco: Never Alcohol Use Standard Drinks/Week Comments No 0 (1 standard drink = 0.6 oz pur e alcohol) Comments No Sex and Gender Information Value Date Recorded Sex Assigned at Not on file 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 Gender Identity Not on file Sexual Orientation Not on file documented as of this encounter Plan of Treatment Not on file documented as of this encounter Procedures Procedure Name Priority Date/Time Associated Diagnosis Comments SCAN - LABS 11/01/2018 12:04 PM CDT documented in this encounter Results * SCAN - LABS (11/01/2018 12:04 PM CDT) us Provider Scanning Final Result documented in this encounter Visit Diagnoses Not on filedocumented in this encounter Care Teams Kiln Burner Relationship Specialty Start Date End Date Burke Rosenberg DO [address] [facility] [address] [place] [address] PCP - General 10/09/16 02/19/20 Luther Bone RN [address] [facility] [address] [place] [address] Integration Software Engineer 12/01/17 9 Gregg Peace RN [address] [facility] [address] [place] [address] Integration Software Engineer 12/08/17 documented as of this encounter
--- OUTSIDE RECORDS SUMMARY | 2024-06-27 01:56 | XMS_ITS | Encounter Summary ---
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 Encounter Details Date Type Department Care Team (Late st Contact Info) Description 02/14/2019 Documentation [facility] Transplant Kidney [address] [facility] [address] [phone] [place] [address] Gregg Peace, DEREK [address] [facility] [address] [place] [address] Forms/questionnaires (Adult Kidney Transplant Recipient Post 5-Year Follow-Up (6 Year) Social History Tobacco Use Types Packs/Day Years Used Date Smoking Tobacco: Never Smokeless Tobacco: Never Alcohol Use Standard Drinks/Week Comments No 0 (1 standard drink = 0.6 oz pur e alcohol) Comments No Sex and Gender Information Value Date Recorded Sex Assigned at Not on file Legal Sex 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
--- OUTSIDE RECORDS SUMMARY | 2024-06-27 01:56 | XMS_ITS | Encounter Summary ---
Author Organization [facility] Healthcare Address [address] [place] [address] Care Team Providers Care Business Ethics Professor Name Role Phone Burke Rosenberg DO Primary Care Provider Luther Bone RN Unavailable Gregg Peace RN Unavailable Encounter Details Date Type Department Care Team (Late st Contact Info) Description 06/10/2018 Lab [facility] Transplant Kidney [address] [facility] [address] [phone] [place], [place] [id number] Luther Bone, RN [address] [address] Social History Tobacco Use Types Packs/Day Years Used Date Smoking Tobacco: Never Smokeless Tobacco: Never Alcohol Use Standard Drinks/Week Comments No 0 (1 standard drink = 0.6 oz pur e alcohol) Comments No Sex and Gender Information Value Date Recorded Sex Assigned at Not on file 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 No precert required (medicare with supplement). Once scheduled, please route the echo order to Jose Guadalupe. ING GENERAL SUPERINTENDENT documented in this encounter Plan of Treatment Not on file documented as of this encounter Visit Diagnoses Not on filedocumented in this encounter Care Teams Business Ethics Professor Relationship Specialty Start Date End Date Burke Rosenberg DO [address] [facility] [address] [place] [address] PCP - General 10/09/16 02/19/20 Luther Bone RN [address] [facility] [address] [place] [address] Coal Weigher 12/01/17 9 Gregg Peace RN [address] [facility] [address] [place], [place] [phone] Coal Weigher 12/08/17 documented as of this encounter
--- OUTSIDE RECORDS SUMMARY | 2024-06-27 01:56 | XMS_ITS | Encounter Summary ---
Author Organization [facility] Address [address] [place] [address] Phone Care Team Providers Care Machine Shop Apprentice Name Role Phone Burke Rosenberg DO Primary Care Provider [phone] Gregg Peace RN Unavailable Encounter Details Date Type Department Care Team (Late st Contact Info) Description 05/05/2019 11:00 AM CDT Office Visit [facility] Ophthalmology [address] [place] [address] Butch Maria MD [address] [facility] [address] [place] [address] Pseudophakia of both eyes (Primary Dx) Social History Tobacco Use Types Packs/Day Years Used Date Smoking Tobacco: Never Smokeless Tobacco: Never Alcohol Use Standard Drinks/Week Comments No 0 (1 standard drink = 0.6 oz pur e alcohol) Comments No Sex and Gender Information Value Date Recorded Sex Assigned at Not on file Legal Sex 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 Start William 128 drops OD QID. Return in 1 month for POV - again try MRx OU. documented in this encounter Plan of Treatment Not on file documented as of this encounter Visit Diagnoses Diagnosis Pseudophakia of both eyes- Primary Lens replaced by other means documented in this encounter Discontinued Medications Medication Sig Discontinue Reason Start Date End Da te amoxicillin-clavulanate (AUGMENTIN) 875-125 mg per tablet Take by mouth every 12 hours 04/07/2018 05/05/2019 documented as of this encounter Historical Medications * This list may reflect changes made after this encounter. hydrocortisone (PROCTOZONE-HC) 2.5 % rectal cream 1 application to affected area 9 amoxicillin-clav ulanate (AUGMENTIN) 875-125 mg per tablet Take by mouth every 12 hours 04/07/2018 9 amLODIPine (NORVASC) 10 mg tablet daily 9 added in this encounter Eye Exam Visual Acuity (Snellen - Linear) Right eye Left eye Dist sc 20/40 20/25 -2 Dist ph sc 20/30 Tonometry (Applanation, 11:14 AM) Right eye Left eye Pressure 14 13 Pupils Pupils Dark Light Shape APD Right eye PERRL 2 1 Round None Left eye PERRL 2 1 Round None Visual [place] Right eye Left eye Full Full Extraocular Movement Right eye Left eye Full Full Neuro/Psych Oriented x3: Yes Mood/Affect: Normal Slit Lamp Exam Right eye Left eye Lids/Lashes Normal Conjunctiva/Sclera White and quiet Cornea 1+ residual descemets and stroma l edema centrally Anterior Chamber Deep and quiet Iris Round and reactive Lens Posterior chamber in traocular lens, no Posterior capsular opacification Manifest Refraction Sphere Cylinder [place] Right eye -1.00 +0.75 180 Left eye +0.25 +0.75 135 Inconsistent responses - information indicated is based on manifest scope Care Teams Machine Shop Apprentice Relationship Specialty Start Date End Date Burke Rosenberg DO [address] [facility] [address] [place] [phone] PCP - General 10/09/16 02/19/20 Gregg Peace, RN Mary Ellen[address] [address] Power Digger Operator Transplant 01/26/1907/04 documented as of this encounter
--- OUTSIDE RECORDS SUMMARY | 2024-06-27 01:56 | XMS_ITS | Encounter Summary ---
Author Organization [facility] Healthcare Address [address] [place] [address] Care Team Providers Care Guitar Technician Name Role Phone Burke Rosenberg DO Primary Care Provider [phone] Luther Bone RN Unavailable Gregg Peace RN Unavailable Encounter Details Date Type Department Care Team (Late st Contact Info) Description 08/03/2018 Orders Only [facility] Health Information Management [address] [place] [address] Scanning, Provider Social History Tobacco Use Types Packs/Day Years Used Date Smoking Tobacco: Never Smokeless Tobacco: Never Alcohol Use Standard Drinks/Week Comments No 0 (1 standard drink = 0.6 oz pur e alcohol) Comments No Sex and Gender Information Value Date Recorded Sex Assigned at Not on file Legal Sex 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 CONTROL CABINET ASSEMBLER Gender Identity Not on file Sexual Orientation Not on file documented as of this encounter Plan of Treatment Not on file documented as of this encounter Procedures Procedure Name Priority Date/Time Associated Diagnosis Comments SCAN - LABS 08/03/2018 11:15 AM CONTROL CABINET ASSEMBLER documented in this encounter Results * SCAN - LABS (08/03/2018 11:15 AM CONTROL CABINET ASSEMBLER) us Provider Scanning Final Result documented in this encounter Visit Diagnoses Not on filedocumented in this encounter Care Teams Guitar Technician Relationship Specialty Start Date End Date Burke Rosenberg, [address] [facility] [address] [place] [address] PCP - General 10/09/16 02/19/20 Luther Bone, DEREK [address] [facility] [address] [place] [address] Grinding Wheel Inspector 12/01/17 9 Gregg Peace RN [address] [facility] [address] [place], [place] [phone] Grinding Wheel Inspector 12/08/17 documented as of this encounter
--- OUTSIDE RECORDS SUMMARY | 2024-06-27 01:56 | XMS_ITS | Encounter Summary ---
Author Organization [facility] Healthcare Address [address] [place] [address] Care Team Providers Care Fur Blower Name Role Phone Burke Rosenberg DO Primary Care Provider Gregg Peace RN Unavailable [phone] Encounter Details Date Type Department Care Team (Latest Contact Info) Description 04/11/2019 11:00 AM CDT - 04/11/2019 11:35 AM CDT Surgery [facility] Surgery at [facility] [address] [place] [address] Butch Maria MD [address] [facility] [address] [place] [address] EXTRACTION CATARACT - PHACOEMULSIFICATION AND LENS IMPLANT Surgery Details Date/Time Status Location OR Service Patient Class Case Class Case Type Trauma Case? 04/11/2019 11:00 AM Posted [facility] Operating Room [place] OR 1 Ophthalmology Outpatient Elective Panel 1 Procedure LRB Anes Op Region Wound Class Comments EXTRACTION CATARACT - PHACOEMULSIFICATION AND LENS IMPLANT Right Monitor Anesthesia Care Eye Class I - Clean Surgeon Surgeon Role Service Panel Butch Maria MD Primary Ophthalmology 1 documented in this encounter Social History Tobacco Use Types Packs/Day Years Used Date Smoking Tobacco: Never Smokeless Tobacco: Never Alcohol Use Standard Drinks/Week Comments No 0 (1 standard drink = 0.6 oz pur e alcohol) Comments No Sex and Gender Information Value Date Recorded Sex Assigned at Not on file 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 * MERGED WITH [facility] TO EXCELLENT CARE AFTER SURGERY [...] 1 tablet (100 mcg total) by mouth analytical technician before breakfast. 30 tablet 11 06/14/2018 9 [...] MD - Primary Anesthesiologist: Bertin Quinones MD SERVER SYSTEMS ADMINISTRATOR: Burke Liriano CRNA Manager Machine: Eitan Condon RN; Nani Babb RN Scrub: [...] Implant Name Type Inv. Item Serial No. Curriculum Development Coordinator Lot No. [id number] No. Used SON SURGICAL SN60WF .285 ACRYSOF IQ NATURAL STABLEFORCE ACRYSERT 6MM 13MM 1 PIECE FOLDABLE - [id number] - [id number] SON SURGICAL SN60WF .285 Acrysof Iq Natural Stableforce Acrysert 6mm 13mm 1 Piece Foldable [id number] Son Surgical Right 1 Blood/Blood Products Transfused: 0 mls Complications: None Condition on Discharge from the operating room was stable Butch Maria MD Date: 04/11/2019 Time: 11:25 AM No Resident involved on case * Pre-Procedure Instructions - Sherri Queen NP - 03/15/2019 10:15 AM CDT [facility] Location: [facility] The night before your surgery: * Do [...] your surgery: Vitamin E, Fish Oil (Lovaza, Andrews 3), Herbal medicines, Diet Pills ?? If [...] taking differently: Take 200 mg by mouth analytical technician before breakfast ) 60 capsule 11 ??? aspirin 81 mg tablet Take 81 mg by mouth every morning. ??? biotin 1 mg tablet Take 1 tablet by mouth daily before breakfast. ??? cholecalciferol (VITAMIN D-3) 2,000 unit tablet Take 1 tablet (2,000 Units total) by mouth daily. (Patient taking differently: Take 2,000 Units by mouth analytical technician before breakfast. ) 30 tablet 11 ??? cyanocobalamin (Vitamin B-12) 100 mcg tablet Take 100 mcg by mouth analytical technician before breakfast. ??? estradiol (ESTRACE) 0.01 % (0.1 mg/gram) vaginal cream 2 ??? fluticasone (FLONASE) 50 mcg/actuation nasal spray SHAKE LQ AND U 1 SPR IEN QD 3 ??? levothyroxine (SYNTHROID, LEVOTHROID) 100 mcg tablet Take 1 tablet (100 mcg total) by mouth analytical technician before breakfast. 30 tablet 11 ??? lisinopril (PRINIVIL,ZESTRIL) 10 mg tablet Take 1 tablet (10 mg total) by mouth daily (Patient taking differently: Take 10 mg by mouth analytical technician before breakfast ) 90 tablet 3 ??? [...] taking differently: Take 5 mg by mouth analytical technician before breakfast ) 30 tablet 11 ??? [...] Acrysert 6mm 13mm 1 Piece Foldable - [id number] - [id number] - Implanted (Left) Eye Inventory item: SON SURGICAL SN60WF.295 Acrysof Iq Natural Stableforce Acrysert 6mm 13mm 1 Piece Foldable Model/Cat number: SN60WF.295 Serial number: [id number] Curriculum Development Coordinator: Son Surgical Lot number: 0 Device identifier: [id number] Device identifier type: GS1 As of 05/05/2018 Status: Implanted SKIN Piercings Remaining: No SCREENINGS Pain Assessment: No/denies pain Pain Assessment: No/denies pain Thompson Fall Risk Score: 25 Juan Ramon index score: 90 Is someone currently physically or emotionally hurting you or your family?: Denies PATIENT CARE PLANNING Advance Directives (For Healthcare) Have you reviewed your Advance Directive and is it valid for this stay?: Yes Advance Directive: Patient has advance directive, copy not in chart Advance Directive not in Chart: Copy requested from family 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 (BSS) intraocular solution As needed, Starting on Thu04/11/19 at 1058, Intra-Op Given 04/11/2019 10:58 AM CDT 15 mL chondroitin sulf-sod hyaluron (DUOVISC) 3 %-4 %(0.5 mL) 1 % (0.55 mL) intraocular kit As needed, Starting on Thu04/11/19 at 1102, Intra-Op Given 04/11/2019 11:02 AM CDT 1 kit chondroitin sulf-sod hyaluron (VISCOAT) 4-3 % (40-30 mg/mL) intraocular injection As needed, Starting on Thu04/11/19 at 1116, Intra-Op Given 04/11/2019 11:16 AM CDT 0.5 mL dilating cocktail ophthalmic solution 0.3 mL 0.3 [...] 1036, For 1 dose, Created by mirlande override labetalol (NORMODYNE,TRANDATE) injection 5 mg 5 mg, [...] Given 04/11/2019 10:48 AM CDT 5 mL phenylephrine-ketorolac (OMIDRIA) 4 mL in balanced salt soln no.1 irrig. (BSS) 500 mL irrigation solution As needed, Starting on Thu04/11/19 at 1043, Intra-Op Given 04/11/2019 10:43 AM CDT 500 mL povidone-iodine (BETADINE PREP) 5 % ophthalmic solution As needed, Starting on Thu04/11/19 at 1100, Intra-Op Given 04/11/2019 11:00 AM CDT 30 mL sodium chloride 0.9% flush 0.5-20 mL 0.5-20 mL, intra-catheter, As needed, line care, Starting on Thu04/11/19 at 1025, Pre-Op, Flush volume based on line type and size. Flush before and after each use. sodium chloride 0.9% infusion 30 mL/hr, intravenous, Continuous, Starting on Thu04/11/19 at 1100, Pre-Op tobramycin-dexamethasone (TOBRADEX) 0.3-0.1 % ophthalmic ointment As needed, Starting on Thu04/11/19 at 1121, Intra-Op Given 04/11/2019 11:21 AM CDT 1 application (deactivated) trypan blue (VISIONBLUE) 0.06 % intraocular solution As needed, Starting on Thu04/11/19 at 1103, Intra-Op, Indications: Cataract Surgery Adjunct to Enhance VisualizationIndications:Ca taract Surgery Adjunct to Enhance Visualization Given 04/11/2019 11:03 AM CDT 0.5 mL Right Eye documented in this encounter Discontinued Medications Medication [...] (COMPLETED) 0.3 mL, right eye, Once, On 04/11/19 at 1100, For 1 dose, Pre-Op, Ingredients [...] intraocular solution (CANCELED) As needed, Starting on 04/11/19 at 1103, Intra-Op, Indications: Cataract Surgery Adjunct to Enhance Visualization 1103 (Given - Provid er: Butch Maria MD) documented in this encounter Orders Medications Ordered That Taras ht Not Have Been Administered Count Last Ordered Date First Ordered Date moxifloxacin (VIGAMOX) 0.5 % ophthalmic solution 1 04/11/2019 naloxone (NARCAN) 0.4 mg/mL injection 0.04-0.4 mg 1 04/11/2019 ondansetron (ZOFRAN) injection 4 mg 1 04/11 prednisoLONE acetate (PRED F ORTE) 1 % ophthalmic suspension 1 04/11/2019 prochlorperazine (COMPAZINE) injection 5 mg 1 04/11/2019 sodium chloride 0.9% flush 0.5-20 mL 1 01/2019 sodium chloride 0.9% infusion 1 04/11/2019 documented in this encounter Care Teams Fur Blower Relationship Specialty Start Date End Date Burke Rosenberg DO [address] [facility] [address] [place] [address] PCP - General 10/09/16 02/19/20 Gregg Peace RN [address] [facility] [address] [place] [address] Customer Operations Intern Transplant 01/26/1907/04 documented as of this encounter
--- OUTSIDE RECORDS SUMMARY | 2024-06-27 01:56 | XMS_ITS | Encounter Summary ---
Author Organization [facility] Healthcare Address [address] [place] [address] Care Team Providers Care Medical Language Specialist Name Role Phone Burke Rosenberg DO Primary Care Provider Gregg Peace RN Unavailable [phone] Encounter Details Date Type Department Care Team (Late st Contact Info) Description 04/07/2019 Orders Only [facility] Health Information Management [address] [place] [address] Scanning, Provider Social History Tobacco Use Types Packs/Day Years Used Date Smoking Tobacco: Never Smokeless Tobacco: Never Alcohol Use Standard Drinks/Week Comments No 0 (1 standard drink = 0.6 oz pur e alcohol) Comments No Sex and Gender Information Value Date Recorded Sex Assigned at Not on file 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 Gender Identity Not on file Sexual Orientation Not on file documented as of this encounter Plan of Treatment Not on file documented as of this encounter Procedures Procedure Name Priority Date/Time Associated Diagnosis Comments SCAN - LABS 04/07/2019 8:03 AM CDT documented in this encounter Results * SCAN - LABS (04/07/2019 8:03 AM CDT) us Provider Scanning Final Result documented in this encounter Visit Diagnoses Not on filedocumented in this encounter Care Teams Medical Language Specialist Relationship Specialty Start Date End Date Burke Rosenberg DO [address] [address] PCP - General 10/09/16 02/19/20 Gregg Peace, DEREK [address] [address] Frame Straightener Transplant 01/26/1907/04 documented as of this encounter
--- OUTSIDE RECORDS SUMMARY | 2024-06-27 01:56 | XMS_ITS | Encounter Summary ---
Author Organization [facility] Healthcare Address [address] [place] [address] Care Team Providers Care Area Intelligence Technician Name Role Phone Burke Rosenberg DO Primary Care Provider [phone] Luther Bone RN Unavailable [phone] Gregg Peace RN Unavailable Encounter Details Date Type Department Care Team (Late st Contact Info) Description 12/30/2018 Orders Only [facility] Information Management [address] [place] [address] Scanning, Provider Social History Tobacco Use Types Packs/Day Years Used Date Smoking Tobacco: Never Smokeless Tobacco: Never Alcohol Use Standard Drinks/Week Comments No 0 (1 standard drink = 0.6 oz pur e alcohol) Comments No Sex and Gender Information Value Date Recorded Sex Assigned at Not on file 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 Gender Identity Not on file Sexual Orientation Not on file documented as of this encounter Plan of Treatment Not on file documented as of this encounter Procedures Procedure Name Priority Date/Time Associated Diagnosis Comments SCAN - LABS 12/30/2018 11:27 AM CDT documented in this encounter Results * SCAN - LABS (12/30/2018 11:27 AM CDT) us Provider Scanning Final Result documented in this encounter Visit Diagnoses Not on filedocumented in this encounter Care Teams Area Intelligence Technician Relationship Specialty Start Date End Date Burke Rosenberg DO [address] [facility] [address] [place] [address] PCP - General 10/09/16 02/19/20 Luther Bone RN [address] [facility] [address] [place] [address] Offset Pressman 12/01/17 9 Gregg Peace RN [address] [facility] [address] [place] [address] Offset Pressman 12/08/17 documented as of this encounter
--- OUTSIDE RECORDS SUMMARY | 2024-06-27 01:56 | XMS_ITS | Encounter Summary ---
Author Organization [facility] Healthcare Address [address] [place] [address] Care Team Providers Care Cleaning Attendant Name Role Phone Burke Rosenberg DO Primary Care Provider [phone] Luther Bone RN Unavailable [phone] Gregg Peace RN Unavailable [phone] Reason for Visit * Reason Onset Date Comments Test Results 07/30/2018 Encounter Details Date Type Department Care Team (Late st Contact Info) Description 07/30/2018 Telephone [facility] Transplant Kidney [address] [address] [phone] [place] [address] Hernando Davila Test Results Social History Tobacco Use Types Packs/Day Years Used Date Smoking Tobacco: Never Smokeless Tobacco: Never Alcohol Use Standard Drinks/Week Comments No 0 (1 standard drink = 0.6 oz pur e alcohol) Comments No Sex and Gender Information Value Date Recorded Sex Assigned at Not on file 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 [phone] or [phone]. 07/30/18 4:19 PM Gregg Kobi RN, Distribution Tech: Awaiting input form CURRICULUM MANAGER regarding echo F LEGAL OFFICER F LEGAL OFFICER documented in this encounter Plan of Treatment Not on file documented as of this encounter Visit Diagnoses Not on filedocumented in this encounter Care Teams Cleaning Attendant Relationship Specialty Start Date End Date Burke Rosenberg DO [address] [facility] [address] [place] [address] PCP - General 10/09/16 02/19/20 Luther Bone RN [address] [address] Distribution Tech 12/01/17 9 Gregg Peace RN [address] [id number] Distribution Tech 12/08/17 documented as of this encounter
--- OUTSIDE RECORDS SUMMARY | 2024-06-27 01:56 | XMS_ITS | Encounter Summary ---
Author Organization [facility] Healthcare Address [address] [place] [address] Care Team Providers Care Insurance Application Investigator Name Role Phone Burke Rosenberg DO Primary Care Provider Luther Bone RN Unavailable Gregg Peace RN Unavailable Encounter Details Date Type Department Care Team (Late st Contact Info) Description 11/03/2018 Orders Only [facility] Health Information Management [address] [place] [address] Scanning, Provider Social History Tobacco Use Types Packs/Day Years Used Date Smoking Tobacco: Never Smokeless Tobacco: Never Alcohol Use Standard Drinks/Week Comments No 0 (1 standard drink = 0.6 oz pur e alcohol) Comments No Sex and Gender Information Value Date Recorded Sex Assigned at Not on file 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 Gender Identity Not on file Sexual Orientation Not on file documented as of this encounter Plan of Treatment Not on file documented as of this encounter Procedures Procedure Name Priority Date/Time Associated Diagnosis Comments SCAN - LABS 11/03/2018 10:51 AM CDT documented in this encounter Results * SCAN - LABS (11/03/2018 10:51 AM CDT) us Provider Scanning Final Result documented in this encounter Visit Diagnoses Not on filedocumented in this encounter Care Teams Insurance Application Investigator Relationship Specialty Start Date End Date Burke Rosenberg DO [address] [facility] [address] [place] [address] PCP - General 10/09/16 02/19/20 Luther Bone RN [address] [facility] [address] [place] [address] Mechanical Spreader Operator 12/01/17 9 Gregg Peace RN [address] [facility] [address] [place] [address] Mechanical Spreader Operator 12/08/17 documented as of this encounter
--- OUTSIDE RECORDS SUMMARY | 2024-06-27 01:56 | XMS_ITS | Encounter Summary ---
Author Organization [facility] Healthcare Address [address] [place] [address] Care Team Providers Care Roofing Contractor Name Role Phone Burke Rosenberg DO Primary Care Provider Gregg Peace RN Unavailable [phone] Encounter Details Date Type Department Care Team (Late st Contact Info) Description 03/04/2019 Orders Only [facility] Health Information Management [address] [place] [address] Scanning, Provider Social History Tobacco Use Types Packs/Day Years Used Date Smoking Tobacco: Never Smokeless Tobacco: Never Alcohol Use Standard Drinks/Week Comments No 0 (1 standard drink = 0.6 oz pur e alcohol) Comments No Sex and Gender Information Value Date Recorded Sex Assigned at Not on file 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 Gender Identity Not on file Sexual Orientation Not on file documented as of this encounter Plan of Treatment Not on file documented as of this encounter Procedures Procedure Name Priority Date/Time Associated Diagnosis Comments SCAN - LABS 03/04/2019 8:02 AM CDT documented in this encounter Results * SCAN - LABS (03/04/2019 8:02 AM CDT) us Provider Scanning Final Result documented in this encounter Visit Diagnoses Not on filedocumented in this encounter Care Teams Roofing Contractor Relationship Specialty Start Date End Date Burke Rosenberg DO [address] [address] PCP - General 10/09/16 02/19/20 Gregg Peace, DEREK [address] [address] Deposit Refund Clerk Transplant 01/26/1907/04 documented as of this encounter
--- OUTSIDE RECORDS SUMMARY | 2024-06-27 01:56 | XMS_ITS | Encounter Summary ---
Author Organization [facility] Healthcare Address [address] [place] [address] Care Team Providers Care Entry Specialists Name Role Phone Burke Rosenberg DO Primary Care Provider [phone] Luther Bone RN Unavailable Gregg Peace RN Unavailable [phone] Encounter Details Date Type Department Care Team (Late st Contact Info) Description 08/06/2018 Orders Only 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 Gender Identity Not on file Sexual Orientation Not on file documented as of this encounter Plan of Treatment Not on file documented as of this encounter Procedures Procedure Name Priority Date/Time Associated Diagnosis Comments SCAN - LABS 08/06/2018 7:43 AM METAL HANDLER documented in this encounter Results * SCAN - LABS (08/06/2018 7:43 AM METAL HANDLER) us Provider Scanning Final Result documented in this encounter Visit Diagnoses Not on filedocumented in this encounter Care Teams Entry Specialists Relationship Specialty Start Date End Date Burke Rosenberg, [address] [facility] [address] [place] [address] PCP - General 10/09/16 02/19/20 Luther Bone, DEREK [address] [facility] [address] [place] [address] Phlebotomy Instructor 12/01/17 9 Gregg Peace RN [address] [facility] [address] [place], [place] [id number] Phlebotomy Instructor 12/08/17 documented as of this encounter
--- OUTSIDE RECORDS SUMMARY | 2024-06-27 01:56 | XMS_ITS | Encounter Summary ---
Author Organization [facility] Address [address] [place] [address] Phone Care Team Providers Care Coil Former Name Role Phone Burke Rosenberg DO Primary Care Provider [phone] Luther Bone RN Unavailable [phone] Gregg Peace RN Unavailable [phone] Reason for Visit * Diagnostic Imaging (Routine) - Closed Specialty Diagnoses / Procedures Referred By Jairo meyer Referred To Contact Diagnoses ESRD (end stage renal disease) ([facility]/HCC) ([facility]) Procedures US Hemodialysis Access Real Cano MD Phone: tel: fax: [facility] (All Locations) Referral ID Status Reason Start Date Expiration Date Visits Re quested Visits Authorized [id number] Closed 04/30/2018 11/09/2019 1 1 Encounter Details Date Type Department Care Team (Latest Contact Info) Description 06/14/2018 9:30 AM INSTRUCTOR PRODUCT INSPECTION Ancillary Procedure [facility] [place] [facility] [address] [facility] 8th [place] [address] [place] [id number] ESRD (end stage renal disease) ([facility]) Social History Tobacco Use Types Packs/Day Years Used Date Smoking Tobacco: Never Smokeless Tobacco: Never Alcohol Use Standard Drinks/Week Comments No 0 (1 standard drink = 0.6 oz pur e alcohol) Comments No Sex and Gender Information Value Date Recorded Sex Assigned at Not on file Legal Sex Female 1:13 PM INSTRUCTOR PRODUCT INSPECTION Gender Identity Not on file Sexual Orientation Not on file documented as of this encounter Plan of Treatment Not on file documented as of this encounter Procedures Procedure Name Priority Date/Time Associated Diagnosis Comments US HEMODIALYSIS ACCESS Schedule Routine, Read Routine (OP Routine) 06/14/2018 10:18 AM INSTRUCTOR PRODUCT INSPECTION ESRD (end stage renal disease) ([facility]) documented in this encounter Results * US Hemodialysis Access (06/14/2018 10:18 AM INSTRUCTOR PRODUCT INSPECTION) Anatomical Region Laterality Modality Body N/A Ultrasound 06/14/2018 8:51 AM INSTRUCTOR PRODUCT INSPECTION Narrative 06/14/2018 8:20 PM INSTRUCTOR PRODUCT INSPECTION [facility] - Department of Vascular Surgery, Vascular Laboratory [address] [place] [address] Dialysis Access Fistula/Graft Duplex Report Patient Name: JULIET MAKI A : [id number] Study Date: 06/14/2018 8:51:11 AM Gender: F Tech: Location: [facility] Ref.Provider: REAL CANO Quality: Adequate Order Provider: REAL CANO Procedures: Vascular Report: Left Upper Extremity Arterial-Venous Fistula Duplex Exam. Brachial artery to Cephalic vein. Indications: End stage renal disease. Measurements: Diameter/Depth ? Velocities ? Measurement ? Value ?Unit ?Measurement ? Value ?Unit ? Lt Anastomosis Diameter ? 0.41 ? cm ?Lt Inflow Artery ?166.30 ? cm/s ? Lt Anastomosis Depth ?0.41 ? cm ?Lt Anastomosis ?892.90 ? cm/s ? Lt Outflow A/C Diameter ? 0.61 ? cm ?Lt Outflow Antecubital ?535.70 ? cm/s ? Lt Outflow A/C Depth ?0.26 ? cm ?Lt Outflow Vein Dist Arm ?321.40 ? cm/s ? Lt Outflow Distal Arm Diameter ?1.01 ? cm ?Lt Outflow Vein Mid Arm ? 203.90 ? cm/s ? Lt Outflow Distal Arm Depth ? 0.13 ? cm ?Lt Outflow Vein Prox Arm ?177.70 ? cm/s ? Lt Outflow Mid Arm Diameter ? 0.43 ? cm ?Lt Deep Vein Landers ? 227.90 ? cm/s ? Lt Outflow Mid Arm Depth ?1.21 ? cm ?Lt Outflow Vein ? 181.00 ? cm/s ? Lt Outflow Proximal Arm Diameter ?0.73 ? cm ?Lt Axillary Vein ?64.50 ?cm/s ? Lt Outflow Proximal Arm Depth ? 0.43 ? cm ?Lt Subclavian Vein ?69.80 ?cm/s ? Lt Deep Vein Landers Diameter ?0.45 ? cm ?Lt Volume Flow Average ?1348.66 ?cc/min ? Lt Deep Vein Landers Depth ? 0.86 ? cm ? - Findings: Performing Oracle Database Analyst: Bertha Chicas RVT. [place] Arterial Inflow Normal: No evidence of arterial stenosis in the inflow vessel. Anastomosis: The fistula anastomosis is patent. Venous Outflow: No evidence of stenosis noted in the venous outflow vessel. Fistula/Graft Findings: Patent fistula with no evidence of narrowing or stenosis. Heavily calcified thrombus throughout the fistula. Deep vein confluence is joined to Brachial vein. Volume Flow: Three volume flow measurements are performed, an averaged volume flow is 1348.66 cc/min. Conclusions: 1. Patent hemodialysis fistula with no evidence of significant narrowing. 2. Three volume flow measurements are performed, an averaged volume flow is 1348.66 cc/min. History: Left hand pain and erythema. s/p angioplasty of outflow vein 01/19/13. Previous Studies: No previous studies for comparison. Disclaimer: The signing physician has reviewed all images pertaining to this test. These images and this report will be retained in the patient chart by the Vascular Laboratory for the legally required time period. This chart constitutes the legal record of any testing performed. Electronically Signed By: Pedro Vergara MD FACS 2018-06-14 20:20:42 INSTRUCTOR PRODUCT INSPECTION CC: CC: Procedure Note Pedro Vergara MD - 06/14/2018 [facility] - Department of Vascular Surgery,Vascular Laboratory [address] [place] [address] Dialysis Access Fistula/Graft Duplex Report Patient Name: JULIET MAKI APatient ID: [id number] : [id number] Date: 06/14/2018 8:51:11 AM Gender: FAccession #: [id number] Tech: DBLocation: [facility] Ref.Provider: REAL CANOQuality: Adequate Order Provider: REAL CANO Procedures: Vascular Report: Left Upper Extremity Arterial-Venous Fistula Duplex Exam. Brachial arteryto Cephalic vein. Indications: End stage renal disease. Measurements: Diameter/Depth Velocities Measurement Value Unit MeasurementValue Unit Lt Anastomosis Diameter 0.41 cm Lt Inflow Vscvjz469.30 cm/s Lt Anastomosis Depth 0.41 cm Lt Wesiwnofbah004.90 cm/s Lt Outflow A/C Diameter 0.61 cm Lt OutflowAntecubital 535.70 cm/s Lt Outflow A/C Depth 0.26 cm Lt Outflow Vein DistArm 321.40 cm/s Lt Outflow Distal Arm Diameter 1.01 cm Lt Outflow Vein MidArm 203.90 cm/s Lt Outflow Distal Arm Depth 0.13 cm Lt Outflow Vein ProxArm 177.70 cm/s Lt Outflow Mid Arm Diameter 0.43 cm Lt Deep VeinConfluence 227.90 cm/s Lt Outflow Mid Arm Depth 1.21 cm Lt Outflow Rrxd059.00 cm/s Lt Outflow Proximal Arm Diameter 0.73 cm Lt Axillary Vein64.50 cm/s Lt Outflow Proximal Arm Depth 0.43 cm Lt Subclavian Vein69.80 cm/s Lt Deep Vein Landers Diameter 0.45 cm Lt Volume FlowAverage 1348.66 cc/min Lt Deep Vein Landers Depth 0.86 cm - Findings: Performing Oracle Database Analyst: Bertha Chicas RVT. [place] Arterial Inflow Normal: No evidence of arterial stenosis in the inflow vessel. Anastomosis: The fistula anastomosis is patent. Venous Outflow: No evidence of stenosis noted in the venous outflow vessel. Fistula/Graft Findings: Patent fistula with no evidence of narrowing or stenosis. Heavilycalcified thrombus throughout the fistula. Deep vein confluence is joined to Brachial vein. Volume Flow: Three volume flow measurements are performed, an averaged volume flow ap0575.66 cc/min. Conclusions: 1. Patent hemodialysis fistula with no evidence of significantnarrowing. 2. Three volume flow measurements are performed, an averaged volume flowis 1348.66 cc/min. History: Left hand pain and erythema. s/p angioplasty of outflow vein 01/19/13. Previous Studies: No previous studies for comparison. Disclaimer: The signing physician has reviewed all images pertaining tothis test. These images and this report will be retained in the patient chart by theVascular Laboratory for the legally required time period. This chart constitutes the legalrecord of any testing performed. Electronically Signed By: Pedro Vergara MD FACS 2018-06-14 20:20:42 INSTRUCTOR PRODUCT INSPECTION CC: CC: us Real Cano MD [facility] PROCEDURES Final R esult documented in this encounter Visit Diagnoses Diagnosis ESRD (end stage renal disease) (CMS/HCC) (HCC) End stage renal disease documented in this encounter Care Teams Coil Former Relationship Specialty Start Date End Date Burke Rosenberg DO [address] [facility] [address] [place] [address] PCP - General 10/09/16 02/19/20 Luther Bone RN [address] [facility] [address] [place], [place] [id number] Chief Ultrasound Technologist 12/01/17 Gregg Epsinoza RN [address] [facility] [address] [place], [place] [id number] Chief Ultrasound Technologist 12/08/17 documented as of this encounter
--- OUTSIDE RECORDS SUMMARY | 2024-06-27 01:56 | XMS_ITS | Encounter Summary ---
Author Organization [facility] Address [address] [place] [address] Phone Care Team Providers Care Advertising Dispatch Clerks Supervisor Name Role Phone Burke Rosenberg DO Primary Care Provider [phone] Luther Bone RN Unavailable [phone] Gregg Peace RN Unavailable Encounter Details Date Type Department Care Team (Late st Contact Info) Description 06/14/2018 Orders Only [facility] Surgery [address] [facility] 8th [place] [address] [place] [address] Rafael Lima MD [address] [facility] [id number] [place], [place] [id number] Pain in left leg Social History Tobacco Use Types Packs/Day Years Used Date Smoking Tobacco: Never Smokeless Tobacco: Never Alcohol Use Standard Drinks/Week Comments No 0 (1 standard drink = 0.6 oz pur e alcohol) Comments No Sex and Gender Information Value Date Recorded Sex Assigned at Not on file Legal Sex Female 1:13 PM TARIFF INSPECTOR Gender Identity Not on file Sexual Orientation Not on file documented as of this encounter Plan of Treatment Not on file documented as of this encounter Visit Diagnoses Diagnosis Pain in left leg documented in this encounter Care Teams Advertising Dispatch Clerks Supervisor Relationship Specialty Start Date End Date Burke Rosenberg DO [address] [facility] 170 [place] [address] PCP - General 10/09/16 02/19/20 Luther Bone RN [address] [facility] 340 [place] [address] Ornamental Metal Worker 12/01/17 9 Gregg Peace RN [address] [facility] [address] [place] [address] Ornamental Metal Worker 12/08/17 documented as of this encounter
--- OUTSIDE RECORDS SUMMARY | 2024-06-27 01:56 | XMS_ITS | Encounter Summary ---
Author Organization [facility] Address [address] [place] [address] Care Team Providers Care Recreational Leader Name Role Phone Burke Rosenberg DO Primary Care Provider Luther Bone RN Unavailable Gregg Peace RN Unavailable [phone] Encounter Details Date Type Department Care Team (Late st Contact Info) Description 06/09/2018 Lab [facility] Transplant Kidney [address] [facility] [address] [phone] [place], [place] [phone] Luther Bone, RN [address] [address] Social History Tobacco Use Types Packs/Day Years Used Date Smoking Tobacco: Never Smokeless Tobacco: Never Alcohol Use Standard Drinks/Week Comments No 0 (1 standard drink = 0.6 oz pur e alcohol) Comments No Sex and Gender Information Value Date Recorded Sex Assigned at Not on file Legal Sex Female 1:13 PM BENCH SCIENTIST Gender Identity Not on file Sexual Orientation Not on file documented as of this encounter Progress Notes * Luther Bone, RN - 06/09/2018 10:36 AM CST Please update S/O. Pt stated in clinic her orders have . H SCIENTIST documented in this encounter Plan of Treatment Not on file documented as of this encounter Visit Diagnoses Not on filedocumented in this encounter Care Teams Recreational Leader Relationship Specialty Start Date End Date Burke Rosenberg AdelinaDO Monico [address] [facility] 170 [place] [address] PCP - General 10/09/16 02/19/20 Luther Bone, DEREK [address] [facility] [address] [place], [place] [id number] Matcher 12/01/17 [address] [facility] [address] [place], [place] [id number] Matcher 12/08/17 documented as of this encounter
--- OUTSIDE RECORDS SUMMARY | 2024-06-27 01:56 | XMS_ITS | Encounter Summary ---
Author Organization [facility] Address [address] [place] [address] Phone Care Team Providers Care Client Development Consultant Name Role Phone Burke Rosenberg DO Primary Care Provider [phone] Gregg Peace RN Unavailable [phone] Encounter Details Date Type Department Care Team (Late st Contact Info) Description 04/12/2019 9:15 AM CDT Office Visit [facility] Ophthalmology [address] [place] [address] Butch Maria MD [address] [facility] [address] [place] [address] Pseudophakia of both eyes (Primary Dx) Social History Tobacco Use Types Packs/Day Years Used Date Smoking Tobacco: Never Smokeless Tobacco: Never Alcohol Use Standard Drinks/Week Comments No 0 (1 standard drink = 0.6 oz pur e alcohol) Comments No Sex and Gender Information Value Date Recorded Sex Assigned at Not on file Legal Sex Female 1:13 PM BEEF PUSHER Gender Identity Not on file Sexual Orientation Not on file documented as of this encounter Progress Notes * Butch Maria MD - 04/12/2019 9:15 AM CDT Imp: Stable 1 day status post (s/p) phaco/IOL right eye (OD) except for corneal edema P: Post-op instructions discussed. Start Moxifloxacin, Ketorolac, and Prednisone 1% OD QID. Return next week or prn - POV. documented in this encounter Plan of Treatment Not on file documented as of this encounter Visit Diagnoses Diagnosis Pseudophakia of both eyes- Primary Lens replaced by other means documented in this encounter Eye Exam Visual Acuity (Snellen - Linear) Right eye Left eye Dist sc 20/300 Dist ph sc NI Tonometry (Applanation, 9:33 AM) Right eye Left eye Pressure 21 Slit Lamp Exam Right eye Left eye Lids/Lashes Normal Conjunctiva/Sclera 1+ Injection Cornea 4+ Stromal edema Anterior Chamber Deep, 1+ Cell, 1+ Flare Iris Dilated Lens Posterior chamber in traocular lens, no Posterior capsular opacification Care Teams Client Development Consultant Relationship Specialty Start Date End Date Burke Rosenberg DO [address] [facility] [address] [place] [address] PCP - General 10/09/16 02/19/20 Gregg Peace RN [address] [facility] [address] [place] [address] Maintenance And Operations Supervisor Transplant 01/26/1907/04 documented as of this encounter
--- OUTSIDE RECORDS SUMMARY | 2024-06-27 01:56 | XMS_ITS | Encounter Summary ---
Author Organization [facility] Care Team Providers Care Photo Tech Name Role Phone Burke Rosenberg DO Primary Care Provider Gregg Peace RN Unavailable [phone] Encounter Details Date Type Department Care Team (Latest Contact Info) Description 04/11/2019 Travel Social History Tobacco Use Types Packs/Day Years Used Date Smoking Tobacco: Never Smokeless Tobacco: Never Alcohol Use Standard Drinks/Week Comments No 0 (1 standard drink = 0.6 oz pur e alcohol) Comments No Sex and Gender Information Value Date Recorded Sex Assigned at Not on file Legal Sex Female 1:13 PM WAREHOUSE GENERAL LABORER Gender Identity Not on file Sexual Orientation Not on file documented as of this encounter Plan of Treatment Not on file documented as of this encounter Visit Diagnoses Not on filedocumented in this encounter Care Teams Photo Tech Relationship Specialty Start Date End Date Burke Rosenberg DO [address] [place] [address] PCP - General 10/09/16 02/19/20 Gregg Peace, RN [address] [place] [address] Lot Boss Transplant 01/26/1907/04 documented as of this encounter
--- OUTSIDE RECORDS SUMMARY | 2024-06-27 01:56 | XMS_ITS | Encounter Summary ---
Author Organization [facility] Address [address] [place] [address] Phone Care Team Providers Care Electroplating Sales Representative Name Role Phone Burke Rosenberg DO Primary Care Provider [phone] Gregg Peace RN Unavailable [phone] Encounter Details Date Type Department Care Team (Late st Contact Info) Description 03/29/2019 1:00 PM CDT Office Visit [facility] Ophthalmology [address] [place] [address] Butch Maria MD [address] [facility] [address] [place] [address] 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 cataract of right eye (Primary Dx); Pseudophakia of left eye Social History Tobacco Use Types Packs/Day Years Used Date Smoking Tobacco: Never Smokeless Tobacco: Never Alcohol Use Standard Drinks/Week Comments No 0 (1 standard drink = 0.6 oz pur e alcohol) Comments No Sex and Gender Information Value Date Recorded Sex Assigned at Not on file Legal Sex Female 1:13 PM CARBON PAPER INTERLEAFER Gender Identity Not on file Sexual Orientation Not on file documented as of this encounter Ordered Prescriptions Prescription Sig Dispense Quantity Refills Last Filled Start Date End Date tobramycin (TOBREX) 0.3 % ophthalmic solution Instill 1 drop into surgical eye three times daily starting two days before surgery 5 mL 1 03/29/2019 0 prednisoLONE acetate (PRED FORTE) 1 % ophthalmic suspension Instill 1 drop into surgical eye three times daily starting after surgery 5 mL 1 03/29/2019 9 ketorolac (ACULAR LS) 0.4 % drops Instill 1 drop into surgical eye three times daily starting two days before surgery 5 mL 1 03/29/2019 9 documented in this encounter Progress Notes * Butch Maria MD - 03/29/2019 1:00 PM CDT Imp: Dense brunescent nuclear cataract OD Stable IOL OS P: Discussed risks, benefits, and alternatives associated with cataract surgery. Phaco/IOL OD scheduled on 04/11/19 - possible Trypan Blue Rx's sent for Moxifloxacin, Ketorolac 0.4%, and Prednisolone 1% drops Consent signed Discussed refractive intraocular lens options for correction of astigmatism and presbyopia. Patienthas chosen [id number] with plano target. documented in this encounter Plan of Treatment Not on file documented as of this encounter Visit Diagnoses Diagnosis 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 cataract of right eye- Primary Pseudophakia of left eye Lens replaced by other means documented in this encounter Discontinued Medications Medication Sig Discontinue Reason Start Date End Da te ketorolac (ACULAR LS) 0.4 % drops Instill 1 drop into surgical eye three times daily starting two days before surgery Reorder 04/29/2018 03/29/2019 prednisoLONE acetate (PRED FORTE) 1 % ophthalmic suspension Instill 1 drop into surgical eye three times daily starting after surgery Reorder 04/29/2018 03/29/2019 tobramycin (TOBREX) 0.3 % ophthalmic solution Instill 1 drop into surgical eye three times daily starting two days before surgery Reorder 04/29/2018 03/29/2019 documented as of this encounter Historical Medications * This list may reflect changes made after this encounter. oxybutynin XL (DITROPAN-XL) 10 mg 24 hr tablet Take 10 mg by mouth daily 05/26/2019 cephalexin (KEFLEX) 500 mg capsule Take 500 mg by mouth 4 (four) times a day 04/11/2019 added in this encounter Eye Exam Visual Acuity (Snellen - Linear) Right eye Left eye Dist cc 20/50+1 20/25-2 Dist ph cc 20/40 Correction: Glasses Tonometry (Applanation, 1:26 PM) Right eye Left eye Pressure 13 11 Pupils Pupils Dark React APD Right eye PERRL 3 mr - Left eye PERRL 3 mr - Visual [place] Right eye Left eye Full Full Poor understanding; kept moving eye - dkw Extraocular Movement Right eye Left eye Full, Rt XT Full Neuro/Psych Oriented x3: Yes Mood/Affect: Normal Dilation Both eyes: 0.5% Mydriacyl @ 1:26 PM Glare Testing High Right eye 20/100 Left eye External Exam Right eye Left eye External Normal Normal Slit Lamp Exam Right eye Left eye Lids/Lashes Dermatochalasis - up per lid w/hooding Dermatochalasis - upper lid w/hooding Conjunctiva/Sclera White and quiet White and lisandro et Cornea Clear Clear Anterior Chamber Shallow, Quiet Deep and quiet Iris Round and reactive Round and billy ctive Lens 4+ brunescent NS Posterior chamb er intraocular lens Vitreous Normal Fundus Exam Right eye Left eye Disc Normal C/D Ratio 0.1 Macula Normal Vessels Normal Periphery RPE changes Very blurred view OD - gross exam findings Wearing Rx Sphere Cylinder [place] Add Right eye +7.00 +0.00 000 +3.25 Left eye No lens Type: Bifocal Manifest Refraction Sphere Cylinder [place] Dist [place] Right eye +8.00 +0.50 135 20/40 Left eye Care Teams Electroplating Sales Representative Relationship Specialty Start Date End Date Burke Rosenberg DO [address] [place] [address] PCP - General 10/09/16 02/19/20 Gregg Peace RN [address] [facility] [address] [place], [place] [id number] Rubber Compounder Formulator Transplant 01/26/1907/04 documented as of this encounter
--- OUTSIDE RECORDS SUMMARY | 2024-06-27 01:56 | XMS_ITS | Encounter Summary ---
Author Organization [facility] Healthcare Address [address] [place] [address] Care Team Providers Care Metal Bed Assembler Name Role Phone Burke Rosenberg DO Primary Care Provider Luther Bone RN Unavailable [phone] Gregg Peace RN Unavailable Encounter Details Date Type Department Care Team (Late st Contact Info) Description 09/21/2018 Orders Only [facility] Information Management [address] [place] [address] Scanning, Provider Social History Tobacco Use Types Packs/Day Years Used Date Smoking Tobacco: Never Smokeless Tobacco: Never Alcohol Use Standard Drinks/Week Comments No 0 (1 standard drink = 0.6 oz pur e alcohol) Comments No Sex and Gender Information Value Date Recorded Sex Assigned at Not on file Legal Sex Female 1:13 PM HAND GLUER AND SLICER Gender Identity Not on file Sexual Orientation Not on file documented as of this encounter Plan of Treatment Not on file documented as of this encounter Procedures Procedure Name Priority Date/Time Associated Diagnosis Comments SCAN - LABS 09/21/2018 1:54 PM CDT documented in this encounter Results * SCAN - LABS (09/21/2018 1:54 PM CDT) us Provider Scanning Final Result documented in this encounter Visit Diagnoses Not on filedocumented in this encounter Care Teams Metal Bed Assembler Relationship Specialty Start Date End Date Burke Rosenberg DO [address] [facility] [address] [place] [address] PCP - General 10/09/16 02/19/20 Luther Bone RN [address] [facility] [address] [place] [address] Business Relationship Manager 12/01/17 9 Gregg Peace RN [address] [facility] [address] [place] [address] Business Relationship Manager 12/08/17 documented as of this encounter
--- OUTSIDE RECORDS SUMMARY | 2024-06-27 01:56 | XMS_ITS | Encounter Summary ---
Author Organization [facility] Healthcare Address [address] [place] [address] Care Team Providers Care Imaging Technician Name Role Phone Burke Rosenberg DO Primary Care Provider [phone] Luther Bone RN Unavailable Gregg Peace RN Unavailable Reason for Visit * Reason Onset Date Comments 2D Echo 07/27/2018 Encounter Details Date Type Department Care Team (Late st Contact Info) Description 07/27/2018 Telephone [facility] Transplant Kidney [address] [address] Mailstop [phone] [place] [address] Nadia Garland 2D Echo Social History Tobacco Use Types Packs/Day Years Used Date Smoking Tobacco: Never Smokeless Tobacco: Never Alcohol Use Standard Drinks/Week Comments No 0 (1 standard drink = 0.6 oz pur e alcohol) Comments No Sex and Gender Information Value Date Recorded Sex Assigned at Not on file Legal Sex Female 1:13 PM MANAGER MANAGED BACKUP SERVICES Gender Identity Not on file Sexual Orientation Not on file documented as of this encounter Miscellaneous Notes * Telephone Encounter - Nadia Garland - 07/27/2018 3:42 PM CST Pt called to talk to someone about the 2D Echo that was ordered in Jun. Please call pt at [phone]. 07/28/18 9:24 AM Gregg Peace RN, Field Case Manager: Please call [facility] for 2d echo results. GER MANAGED BACKUP SERVICES GER MANAGED BACKUP SERVICES documented in this encounter Plan of Treatment Not on file documented as of this encounter Visit Diagnoses Not on filedocumented in this encounter Care Teams Imaging Technician Relationship Specialty Start Date End Date Burke Rosenberg DO [address] [facility] [address] [place] [address] PCP - General 10/09/16 02/19/20 Luther Bone RN [address] [address] Field Case Manager 12/01/17 9 Gregg Peace RN [address] [address] Field Case Manager 12/08/17 documented as of this encounter
--- OUTSIDE RECORDS SUMMARY | 2024-06-27 01:56 | XMS_ITS | Encounter Summary ---
Author Organization [facility] Healthcare Address [address] [place] [address] Care Team Providers Care Residential Plumber Name Role Phone Burke Rosenberg DO Primary Care Provider Luther Bone RN Unavailable [phone] Gregg Peace RN Unavailable Encounter Details Date Type Department Care Team (Late st Contact Info) Description 06/10/2018 Orders Only [facility] Transplant Kidney [address] [facility] [address] Mailstop [phone] [place] [address] Luther Bone, RN [address] [address] Murmur, cardiac (Primary Dx); Kidney replaced by transplant; Essential hypertension Social History Tobacco Use Types Packs/Day Years Used Date Smoking Tobacco: Never Smokeless Tobacco: Never Alcohol Use Standard Drinks/Week Comments No 0 (1 standard drink = 0.6 oz pur e alcohol) Comments No Sex and Gender Information Value Date Recorded Sex Assigned at Not on file Legal Sex Female 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 Gender Identity Not on file Sexual Orientation Not on file documented as of this encounter Plan of Treatment Not on file documented as of this encounter Visit Diagnoses Diagnosis Murmur, cardiac- Primary Undiagnosed cardiac murmurs Kidney replaced by transplant Essential hypertension Unspecified essential hypertension documented in this encounter Care Teams Residential Plumber Relationship Specialty Start Date End Date Burke Rosenberg DO [address] [facility] 170 [place] [address] PCP - General 10/09/16 02/19/20 Luther Bone RN 49[address] [facility] [address] [place] [address] Return Agent 12/01/17 9 Gregg Peace RN [address] [facility] [address] [place] [address] Return Agent 12/08/17 documented as of this encounter
--- OUTSIDE RECORDS SUMMARY | 2024-06-27 01:56 | XMS_ITS | Encounter Summary ---
Author Organization [facility] Healthcare Address [address] [place] [address] Care Team Providers Care Supervisor Poultry Farm Name Role Phone Burke Rosenberg DO Primary Care Provider [phone] Gregg Peace RN Unavailable [phone] Encounter Details Date Type Department Care Team (Late st Contact Info) Description 02/02/2019 Orders Only [facility] Health Information Management [address] [place] [address] Scanning, Provider Social History Tobacco Use Types Packs/Day Years Used Date Smoking Tobacco: Never Smokeless Tobacco: Never Alcohol Use Standard Drinks/Week Comments No 0 (1 standard drink = 0.6 oz pur e alcohol) Comments No Sex and Gender Information Value Date Recorded Sex Assigned at Not on file Legal Sex Female 1:13 PM PERFORMANCE IMPROVEMENT CONSULTANT Gender Identity Not on file Sexual Orientation Not on file documented as of this encounter Plan of Treatment Not on file documented as of this encounter Procedures Procedure Name Priority Date/Time Associated Diagnosis Comments SCAN - LABS 02/02/2019 8:49 AM CDT documented in this encounter Results * SCAN - LABS (02/02/2019 8:49 AM CDT) us Provider Scanning Final Result documented in this encounter Visit Diagnoses Not on filedocumented in this encounter Care Teams Supervisor Poultry Farm Relationship Specialty Start Date End Date Burke Rosenberg DO [address] [address] PCP - General 10/09/16 02/19/20 Gregg Peace, DEREK [address] [address] Store Custodian Transplant 01/26/1907/04 documented as of this encounter
--- OUTSIDE RECORDS SUMMARY | 2024-06-27 01:56 | XMS_ITS | Encounter Summary ---
Author Organization 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
--- OUTSIDE RECORDS SUMMARY | 2024-06-27 01:56 | XMS_ITS | Encounter Summary ---
Author Organization [facility] Healthcare Address [address] [place] [address] Care Team Providers Care Credit Risk Specialist Name Role Phone Burke Rosenberg DO Primary Care Provider Luther Bone RN Unavailable [phone] Gregg Peace RN Unavailable [phone] Reason for Visit * Reason Onset Date Comments Med Refill 09/29/2018 Encounter Details Date Type Department Care Team (Late st Contact Info) Description 09/29/2018 Telephone [facility] Transplant Kidney [address] [address] Mailstop [phone] [place] [address] Nadia Garland Med Refill Social History Tobacco Use Types Packs/Day Years Used Date Smoking Tobacco: Never Smokeless Tobacco: Never Alcohol Use Standard Drinks/Week Comments No 0 (1 standard drink = 0.6 oz pur e alcohol) Comments No Sex and Gender Information Value Date Recorded Sex Assigned at Not on file 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 documented in this encounter Plan of Treatment Not on file documented as of this encounter Visit Diagnoses Not on filedocumented in this encounter Care Teams Credit Risk Specialist Relationship Specialty Start Date End Date Burke Rosenberg AdelinaDO Monico [address] [facility] [address] [place] [address] PCP - General 10/09/16 02/19/20 Luther Bone, DEREK [address] [facility] [address] [place], [place] [id number] Dynamometer Tester Engine 12/01/17 9 Gregg Peace, DEREK [address] [facility] [address] [place], [place] [id number] Dynamometer Tester Engine 12/08/17 documented as of this encounter
--- OUTSIDE RECORDS SUMMARY | 2024-06-27 01:56 | XMS_ITS | Encounter Summary ---
Author Organization [facility] Healthcare Address [address] [place] [address] Care Team Providers Care Warehouse Operations Associate Name Role Phone Burke Rosenberg DO Primary Care Provider Luther Bone RN Unavailable Gregg Peace RN Unavailable Encounter Details Date Type Department Care Team (Late st Contact Info) Description 12/02/2018 Orders Only [facility] Health Information Management [address] [place] [address] Scanning, Provider Social History Tobacco Use Types Packs/Day Years Used Date Smoking Tobacco: Never Smokeless Tobacco: Never Alcohol Use Standard Drinks/Week Comments No 0 (1 standard drink = 0.6 oz pur e alcohol) Comments No Sex and Gender Information Value Date Recorded Sex Assigned at Not on file Legal Sex Female 1:13 PM PART TIME Gender Identity Not on file Sexual Orientation Not on file documented as of this encounter Plan of Treatment Not on file documented as of this encounter Procedures Procedure Name Priority Date/Time Associated Diagnosis Comments SCAN - LABS 12/02/2018 7:47 AM CDT documented in this encounter Results * SCAN - LABS (12/02/2018 7:47 AM CDT) us Provider Scanning Final Result documented in this encounter Visit Diagnoses Not on filedocumented in this encounter Care Teams Warehouse Operations Associate Relationship Specialty Start Date End Date Burke Rosenberg DO [address] [facility] [address] [place] [address] PCP - General 10/09/16 02/19/20 Luther Bone RN 35[address] [facility] 340 [place] [address] Army Helicopter Pilot 12/01/17 9 Gregg Peace RN 4590 [facility] [address] [place] [address] Army Helicopter Pilot 12/08/17 documented as of this encounter
--- OUTSIDE RECORDS SUMMARY | 2024-06-27 01:56 | XMS_ITS | Encounter Summary ---
Author Organization [facility] Healthcare Address [address] [place] [address] Care Team Providers Care Hoop Flaring Machine Operator Helper Name Role Phone Burke Rosenberg DO Primary Care Provider [phone] Gregg Peace RN Unavailable [phone] Encounter Details Date Type Department Care Team (Late st Contact Info) Description 01/31/2019 Orders Only [facility] Health Information Management [address] [place] [address] Scanning, Provider Social History Tobacco Use Types Packs/Day Years Used Date Smoking Tobacco: Never Smokeless Tobacco: Never Alcohol Use Standard Drinks/Week Comments No 0 (1 standard drink = 0.6 oz pur e alcohol) Comments No Sex and Gender Information Value Date Recorded Sex Assigned at Not on file 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 Gender Identity Not on file Sexual Orientation Not on file documented as of this encounter Plan of Treatment Not on file documented as of this encounter Procedures Procedure Name Priority Date/Time Associated Diagnosis Comments SCAN - LABS 01/31/2019 3:31 PM CDT documented in this encounter Results * SCAN - LABS (01/31/2019 3:31 PM CDT) us Provider Scanning Final Result documented in this encounter Visit Diagnoses Not on filedocumented in this encounter Care Teams Hoop Flaring Machine Operator Helper Relationship Specialty Start Date End Date Burke Rosenberg DO [address] [place] [address] PCP - General 10/09/16 02/19/20 Gregg Peace, DEREK [address] [facility] [address] [place] [address] Mixing And Dispensing Supervisor Transplant 01/26/1907/04 documented as of this encounter
--- OUTSIDE RECORDS SUMMARY | 2024-06-27 01:56 | XMS_ITS | Encounter Summary ---
Author Organization [facility] Address [address] [facility] [address] [place] [address] Care Team Providers Care Warehouse Production Worker Name Role Phone Burke Rosenberg DO Primary Care Provider Luther Bone RN Unavailable Gregg Peace RN Unavailable [phone] Reason for Visit * Reason Comments Cerumen Impaction Encounter Details Date Type Department Care Team (Late st Contact Info) Description 12/16/2018 10:20 AM CDT Office Visit [facility] - [address] [facility] [address] [place] [id number] [place] [address] [facility] [address] [facility] 2 [place], [place] [id number] Bilateral impacted cerumen (Primary Dx); Sensorineural hearing loss (SNHL) of both ears Social History Tobacco Use Types Packs/Day Years Used Date Smoking Tobacco: Never Smokeless Tobacco: Never Alcohol Use Standard Drinks/Week Comments No 0 (1 standard drink = 0.6 oz pur e alcohol) Comments No Sex and Gender Information Value Date Recorded Sex Assigned at Not on file Legal Sex Female 1:13 PM ORDER ENTRY TECHNICIAN Gender Identity Not on file Sexual Orientation Not on file documented as of this encounter Last Filed Vital Signs Vital Sign Reading Time Taken Comments Blood Pressure 140/74 12/16/2018 10:12 AM CDT Pulse - - Temperature - - Respiratory Rate - - Oxygen Saturation - - Inhaled Oxygen Concentration - - Weight 57.6 kg (127 lb) 12/16/2018 10:12 AM CDT Height 159.4 cm (5' 2.75 ) 12/16/2018 10:12 AM C DT Body Mass Index 22.68 12/16/2018 10:12 AM CDT documented in this encounter Progress Notes * L[place] MD - 12/16/2018 10:20 AM CDT Images from the original note were not included. Subjective/Objective Patient ID: Juliet Dunlap is a 83 y.o. female. Chief Complaint Cerumen Impaction HPI Mrs. Dunlap is an 83-year-old who comes to the office today with a problem of decreased hearing. She notes she has had a gradual loss of hearing involving both ears. Currently she has difficulty with the television and also with conversation communication. Background noise does cause her significant problems. Review of Systems Constitutional: Negative for appetite change, chills, fatigue, fever and unexpected weight change. HENT: Negative for congestion, dental problem, ear discharge, ear pain, facial swelling, hearing loss, postnasal drip, rhinorrhea, sinus pressure, sneezing, sore throat, tinnitus, trouble swallowing and voice change. Eyes: Negative for discharge, redness, itching and visual disturbance. Respiratory: Negative for cough, shortness of breath and wheezing. Cardiovascular: Negative for chest pain and palpitations. Gastrointestinal: Negative for abdominal distention, abdominal pain, constipation, diarrhea, nauseaand vomiting. Endocrine: Negative for cold intolerance, heat intolerance, polydipsia, polyphagia and polyuria. Musculoskeletal: Negative for arthralgias, gait problem and myalgias. Skin: Negative for rash. Allergic/Immunologic: Negative for environmental allergies and food allergies. Neurological: Negative for dizziness, light-headedness and headaches. Psychiatric/Behavioral: Negative for agitation, confusion, decreased concentration and sleep disturbance. The patient is not nervous/anxious. Physical Exam Constitutional: She appears well-developed and well-nourished. HENT: Examination showed impacted cerumen in both ears. Following debridement both tympanic membranes arenoted to be normal. The nasal examination showed a septal deviation oral cavity had no masses or lesions there was no sign of an infection The cervical examination was unremarkable no masses or lesions were noted. Neck: Trachea normal and normal range of motion. Neck supple. Normal carotid pulses and no JVD present. Carotid bruit is not present. Cardiovascular: Normal rate and regular rhythm. Pulmonary/Chest: Effort normal and breath sounds normal. Abdominal: Soft. Normal appearance. Musculoskeletal: Normal range of motion. Neurological: She is alert. She has normal reflexes. Skin: Skin is warm, dry and intact. Psychiatric: She has a normal mood and affect. Her speech is normal and behavior is normal. Thoughtcontent normal. Following debridement of her ears she did have a complete audiogram. That study showed that she hada rather significant sensorineural hearing loss starting off at 250 hertz in gradually dropping down to the 60-70 decibel hearing level at 8000 hertz. Fortunately discrimination scores are excellent at 96% for both the right and left ears. Assessment/Plan Diagnoses and all orders for this visit: Bilateral impacted cerumen (H61.23) (Primary) Sensorineural hearing loss (SNHL) of both ears (H90.3) Her hearing did improve slightly following debridement of her ears though she continues to have a fairly significant sensorineural hearing loss. In discussing management I suggested she should look into a wireless headphone and she should also consider amplification. documented in this encounter Plan of Treatment Not on file documented as of this encounter Visit Diagnoses Diagnosis Bilateral impacted cerumen- Primary Impacted cerumen Sensorineural hearing loss (SNHL) of both ears documented in this encounter Care Teams Warehouse Production Worker Relationship Specialty Start Date End Date Burke Rosenberg DO [address] [facility] [address] [place] [address] PCP - General 10/09/16 02/19/20 Luther Bone RN [address] [facility] [address] [place] [address] Community Aide 12/01/17 9 Gregg Peace RN [address] [facility] [address] [place] [address] Community Aide 12/08/17 documented as of this encounter
--- OUTSIDE RECORDS SUMMARY | 2024-06-27 01:56 | XMS_ITS | Encounter Summary ---
Author Organization [facility] Facility Care Team Providers Care Extension Service Supervisor Name Role Phone Burke Rosenberg DO Primary Care Provider [phone] Luther Bone RN Unavailable [phone] Gregg Peace RN Unavailable [phone] Encounter Details Date Type Department Care Team (Latest Contact Info) Description 12/16/2018 Travel Social History Tobacco Use Types Packs/Day Years Used Date Smoking Tobacco: Never Smokeless Tobacco: Never Alcohol Use Standard Drinks/Week Comments No 0 (1 standard drink = 0.6 oz pur e alcohol) Comments No Sex and Gender Information Value Date Recorded Sex Assigned at Not on file 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 [address] [place] [address] PCP - General 10/09/16 02/19/20 Luther Bone, RN 4901 [facility] [address] [place] [address] Teacher Education Director 12/01/17 9 Gregg Peace, DEREK 4590 [facility] [address] [place] [address] Teacher Education Director 12/08/17 documented as of this encounter
--- OUTSIDE RECORDS SUMMARY | 2024-06-27 01:56 | XMS_ITS | Encounter Summary ---
Author Organization [facility] Healthcare Address [address] [place] [address] Care Team Providers Care Pneumatic Riveter Name Role Phone Burke Rosenberg DO Primary Care Provider [phone] Gregg Peace RN Unavailable [phone] Encounter Details Date Type Department Care Team (Late st Contact Info) Description 02/04/2019 Telephone [facility] Transplant Kidney [address] [facility] [address] Mailstop [phone] [place] [address] Hernando Davila Social History Tobacco Use Types Packs/Day Years Used Date Smoking Tobacco: Never Smokeless Tobacco: Never Alcohol Use Standard Drinks/Week Comments No 0 (1 standard drink = 0.6 oz pur e alcohol) Comments No Sex and Gender Information Value Date Recorded Sex Assigned at Not on file Legal Sex Female 1:13 PM VENEREAL DISEASE CONTROL HEAD Gender Identity Not on file Sexual Orientation Not on file documented as of this encounter Miscellaneous Notes * Telephone Encounter - Hernando Davila - 02/04/2019 8:51 AM CDT Please call pt to discuss labs and vasculitis. Pt is having back pain. 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 I told her it's not affecting her kidney, but was unsure if it could affect the rest of her body. Her sCr is 0.8. I told her she may need to see a brick handler as she keeps saying she tried to look up a vasculitis doctor, and I tried to explain that the doctor she may need to see is a brick handler, there aren't doctors around that are vasculitis doctors. She verbalized understanding. I told her I would ask and get back to her. documented in this encounter Plan of Treatment Not on file documented as of this encounter Visit Diagnoses Not on filedocumented in this encounter Care Teams Pneumatic Riveter Relationship Specialty Start Date End Date Burke Rosenberg DO [address] [facility] [address] [place] [address] PCP - General 10/09/16 02/19/20 Gregg Peace, DEREK [address] [facility] [address] [place] [address] Technology Lead Transplant 01/26/1907/04 documented as of this encounter
--- OUTSIDE RECORDS SUMMARY | 2024-06-27 01:56 | XMS_ITS | Encounter Summary ---
Author Organization [facility] Healthcare Address [address] [place] [address] Care Team Providers Care Securities Consultant Name Role Phone Burke Rosenberg DO Primary Care Provider Gregg Peace RN Unavailable [phone] Encounter Details Date Type Department Care Team (Late st Contact Info) Description 03/02/2019 Orders Only [facility] Health Information Management [address] [place] [address] Scanning, Provider Social History Tobacco Use Types Packs/Day Years Used Date Smoking Tobacco: Never Smokeless Tobacco: Never Alcohol Use Standard Drinks/Week Comments No 0 (1 standard drink = 0.6 oz pur e alcohol) Comments No Sex and Gender Information Value Date Recorded Sex Assigned at Not on file Legal Sex Female 1:13 PM NC MANAGER Gender Identity Not on file Sexual Orientation Not on file documented as of this encounter Plan of Treatment Not on file documented as of this encounter Procedures Procedure Name Priority Date/Time Associated Diagnosis Comments SCAN - LABS 03/02/2019 2:36 PM CDT documented in this encounter Results * SCAN - LABS (03/02/2019 2:36 PM CDT) us Provider Scanning Final Result documented in this encounter Visit Diagnoses Not on filedocumented in this encounter Care Teams Securities Consultant Relationship Specialty Start Date End Date Burke Rosenberg DO [address] [address] PCP - General 10/09/16 02/19/20 Gregg Peace, DEREK [address] [address] Shank Faker Transplant 01/26/1907/04 documented as of this encounter
--- OUTSIDE RECORDS SUMMARY | 2024-06-27 01:56 | XMS_ITS | Encounter Summary ---
Author Organization [facility] Healthcare Address [address] [place] [address] Care Team Providers Care Computer Forwarding System Markup Clerk Name Role Phone Burke Rosenberg DO Primary Care Provider Luther Bone RN Unavailable Gregg Peace RN Unavailable [phone] Encounter Details Date Type Department Care Team (Late st Contact Info) Description 07/05/2018 Orders Only [facility] Health Information Management [address] [place] [address] Scanning, Provider Social History Tobacco Use Types Packs/Day Years Used Date Smoking Tobacco: Never Smokeless Tobacco: Never Alcohol Use Standard Drinks/Week Comments No 0 (1 standard drink = 0.6 oz pur e alcohol) Comments No Sex and Gender Information Value Date Recorded Sex Assigned at Not on file Legal Sex Female 1:13 PM SPAR FINISHER Gender Identity Not on file Sexual Orientation Not on file documented as of this encounter Plan of Treatment Not on file documented as of this encounter Procedures Procedure Name Priority Date/Time Associated Diagnosis Comments SCAN - LABS 07/05/2018 7:47 AM SPAR FINISHER documented in this encounter Results * SCAN - LABS (07/05/2018 7:47 AM SPAR FINISHER) us Provider Scanning Final Result documented in this encounter Visit Diagnoses Not on filedocumented in this encounter Care Teams Computer Forwarding System Markup Clerk Relationship Specialty Start Date End Date Burke Rosenberg, [address] [facility] [address] [place] [address] PCP - General 10/09/16 02/19/20 Luther Bone, DEREK [address] [facility] [address] [place] [address] Electronic Resources Librarian 12/01/17 9 Gregg Peace RN 4590 [facility] [address] [place], [place] [id number] Electronic Resources Librarian 12/08/17 documented as of this encounter
--- OUTSIDE RECORDS SUMMARY | 2024-06-27 01:56 | XMS_ITS | Encounter Summary ---
Author Organization [facility] Address [address] [facility] [address] [place] [address] Phone Care Team Providers Care Sand Polisher Name Role Phone Burke Rosenberg DO Primary Care Provider Luther Bone RN Unavailable [phone] Gregg Peace RN Unavailable Reason for Visit * Reason Comments Consult left arm swelling Encounter Details Date Type Department Care Team (Latest Contact Info) Description 06/14/2018 10:15 AM COMPANY SECRETARY Office Visit [facility] [address] 8th [place] [address] [place] [address] Rafael Lima MD [address] [facility] [id number] [place] [address] Venous insufficiency (Primary Dx) Social History Tobacco Use Types Packs/Day Years Used Date Smoking Tobacco: Never Smokeless Tobacco: Never Alcohol Use Standard Drinks/Week Comments No 0 (1 standard drink = 0.6 oz pur e alcohol) Comments No Sex and Gender Information Value Date Recorded Sex Assigned at Not on file Legal Sex Female 1:13 PM COMPANY SECRETARY Gender Identity Not on file Sexual Orientation Not on file documented as of this encounter Last Filed Vital Signs Vital Sign Reading Time Taken Comments Blood Pressure 175/74 06/14/2018 10:24 AM COMPANY SECRETARY Pulse 66 06/14/2018 10:24 AM COMPANY SECRETARY Temperature - - Respiratory Rate - - Oxygen Saturation 100% 06/14/2018 10:24 AM COMPANY SECRETARY Inhaled Oxygen Concentration - - Weight 59 kg (130 lb) 06/14/2018 10:24 AM COMPANY SECRETARY Height 160 cm (5' 3 ) 06/14/2018 10:24 AM COMPANY SECRETARY Body Mass Index 23.03 06/14/2018 10:24 AM COMPANY SECRETARY documented in this encounter Progress Notes * Rafael Lima MD - 06/14/2018 10:15 AM CST Vascular Consultation Note Juliet Dunlap is a 83 y.o. 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 HPI: This nice lady comes to see me for 2 distinct issues. The 1st is her left arm access. She underwent a successful renal transplant in 2012 and reports that her graft functions well to this day. She has a left brachial-axillary PTFE graft which still has a nice thrill. There are dilated superficial veins extending from the shoulder region down to the forearm. She has a bit of hyperemia of the left hand consistent with mild venous insufficiency. No severe edema although she reports 1 or 2 episodes of hand edema in the past. Her hand function remains normal and she has no discomfort at in the fingers. I looked up her old intervention reports the computer and she was treated multiple times for left subclavian and brachiocephalic venous stenosis. I would presume that the current issues aremanifestation of central venous stenosis or occlusion. The 2nd issue is a recent onset posttraumatic ulcer of her left anterior calf. She recalls having adistant vein stripping procedure of the lower extremities in the at [facility]. 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 Approximately 4 by weeks ago she struck the anterior pretib ial surface and developed a substantial hematoma. A few weeks later the overlying skin necrosed, leaving a cavity extending deeply into the subcutaneous tissue which she has treated with antibiotic ointment and a Band-Aid. She has developed a mild surrounding cellulitis. No evidence of systemic sepsis. I do note the presence of mild pigmentation changes of the bilateral calves suggestive of mild chronic venous stasis disease. Allergies Allergen Reactions ??? Nitrofurantoin Rash ??? Tetracycline Rash ??? Tetracyclines Rash ??? Levofloxacin Unknown ? ? Codeine Dizziness, Nausea & Vomiting and Nausea Only ??? Keflex [Cephalexin] Other (See comments) Trouble with bladder Current Outpatient Prescriptions Medication Sig Dispense Refill ??? acyclovir (ZOVIRAX) 200 mg capsule Take 200 mg by mouth adjudication specialist before breakfast. ??? amLODIPine (NORVASC) 10 mg tablet daily. ??? amoxicillin-clavulanate (AUGMENTIN) 875-125 mg per tablet TK 1 T PO BID FOR 10 DAYS. 1 ??? aspirin 81 mg tablet Take 81 mg by mouth every morning. ??? biotin 1 mg tablet Take 1 tablet by mouth daily before breakfast. ??? cholecalciferol (VITAMIN D-3) 2,000 unit tablet Take 1 tablet (2,000 Units total) by mouth daily. (Patient taking differently: Take 2,000 Units by mouth adjudication specialist before breakfast. ) 30 tablet 11 ??? cyanocobalamin (Vitamin B-12) 100 mcg tablet Take 100 mcg by mouth adjudication specialist before breakfast. ??? denosumab (PROLIA) 60 mg/mL syringe Inject 1 mL under the skin every 6 months. ??? levothyroxine (SYNTHROID, LEVOTHROID) 100 mcg tablet Take 100 mcg by mouth adjudication specialist beforebreakfast. ??? levothyroxine in sodium chloride 0.9% IV syringe daily. ??? lisinopril (PRINIVIL,ZESTRIL) 10 mg tablet TK 1 T PO D 3 ??? metoprolol (LOPRESSOR) 25 mg tablet Take 25 mg by mouth 2 times daily. ??? metoprolol (LOPRESSOR) 50 mg tablet TK 1 T PO BID 2 ??? ondansetron ODT (ZOFRAN-ODT) 4 mg disintegrating tablet ??? pravastatin (PRAVACHOL) 20 mg tablet Take 20 mg by mouth nightly. ??? prednisoLONE acetate (PRED FORTE) 1 % ophthalmic suspension Instill 1 drop into surgical eye three times daily starting after surgery 5 mL 1 ??? predniSONE (DELTASONE) 5 mg tablet Take 1 tablet (5 mg total) by mouth daily. 30 tablet 11 ??? sodium bicarbonate 650 mg tablet Take 1 tablet by mouth nightly. ??? tacrolimus (PROGRAF) 1 mg capsule Take 2 mg by mouth 2 (two) times a day. ??? azithromycin (ZITHROMAX) 250 mg tablet ZPK 0 ??? fluticasone (FLONASE) 50 mcg/actuation nasal spray SHAKE LQ AND U 1 SPR IEN QD 3 ??? hydrocortisone (PROCTOZONE-HC) 2.5 % rectal cream 1 application to affected area ??? ketorolac (ACULAR LS) 0.4 % drops Instill 1 drop into surgical eye three times daily starting two days before surgery 5 mL 1 ??? lisinopril (PRINIVIL,ZESTRIL) 10 mg tablet Take 1 tablet (10 mg total) by mouth daily. (Patienttaking differently: Take 10 mg by mouth adjudication specialist before breakfast. ) 90 tablet 3 ??? metoprolol (LOPRESSOR) 50 mg tablet Take 1 tablet (50 mg total) by mouth 2 (two) times a day. 180 tablet 2 ??? tobramycin (TOBREX) 0.3 % ophthalmic solution Instill 1 drop into surgical eye three times daily starting two days before surgery 5 mL 1 No current facility-administered medications for this visit. Past Medical History: Diagnosis Date ??? Abdominal pain ??? Bruising ??? CAD (coronary artery disease) ??? Chest pain ??? Fatigue ??? Frequent urination ??? GERD (gastroesophageal reflux disease) ??? Hearing loss ??? Hepatitis B ??? Hiatal hernia schatzki ring ??? Hyperlipidemia ??? Hypertension ??? Hypothyroidism ??? Migraines ??? Pain with urination ??? Peritoneal dialysis status ([facility]) From 2009 to 2012 prior to transplant [...] 1944 ??? VEIN LIGATION AND STRIPPING 1992 Social History Substance Use Topics ??? Smoking status: Never Smoker ??? Smokeless tobacco: Never Used ??? Alcohol use No Social History Social History Narrative ??? No narrative on file Family History Problem Relation Age of Onset ??? Cancer Other Family history of Cancer; ??? Kidney disease Other Family history of Renal disease; ??? Stroke Other Family history of Stroke; ??? Pancreatic cancer Mother ??? Heart disease Father Review of Systems: The 10 point review of systems from the patient's written documentation was reviewed and scanned into voxapp.Pertinent positives include Mild venous hypertension of the left upper extremity. Posttraumatic left anterior calf ulcer.. PHYSICAL EXAM: Physical Exam BP (!) 175/74 (BP Location: Right arm, Patient Position: Sitting) Pulse 66 Ht 160 cm (5' 3 ) Wt 59 kg (130 lb) SpO2 100% BMI 23.03 kg/m?? She is alert and oriented x3. Her affect is appropriate. Facial musculature is symmetric. I do not hear any carotid bruits. The cardiac rhythm is regular. No loud murmurs lungs are clear bilaterally.Her radial pulses are palpable. Some dilation of her subcutaneous veins the left upper extremity but no significant edema. There is still a thrill in the graft. The skin overlying the graft has been extensively accessed, but remains fairly pliable. If ligation is needed that think this can be done close to the arterial anastomosis. Her abdomen is benign to palpation with femoral pulses remaining palpable. I cannot appreciate old vein stripping scars. With regards to her lower extremities, the dorsalis pedis pulses are palpable bilaterally. She has a somewhat punched-out appearing ulcer that is about 2-1/2 cm in diameter. The ulcer surface is mostly composed of granulation tissue, although there was some overlying fibrinous debris that I sharply removed. She has 1 or 2 cm of mild erythema and tenderness surrounding the rim of the ulcer but no purulence. Impression and Plan: With regards to the left upper extremity I do not think any intervention is needed at this time. Ifilya does develop symptoms of increasing of venous congestion, a contrast-limited fistulogram of thecentral venous palpable could be performed, to see if the conduit could be salvaged (in the event that she experiences failure of the kidney transplant, it would be beneficial to have a ready access site). If they central venous issues are complex, then simple ligation of the graft inflow in the operating room should suffice. With regards to her left leg, we will begin her on oral Keflex and place an expedited consultation request with the Infectious Disease team. She lived closed at [facility] although I, and they have the wound clinic there which she is interested in seeing. We will make a call to arrange that. Finally we will obtain venous duplex and reflux studies to assess her for treatable venous insufficiency in that left lower extremity. Until she gets into the wound care clinic in [facility] this Thursday, we have encouraged her to use bacitracin ointment topically along with dry gauze. I emphasized to the patient and her that she develops any spreading cellulitis, purulence, or fevers or ch ills, that she should proceed emergency room as she will need intravenous antibiotic therapy and re-evaluation. I will contact her after getting the results of her venous testing. ANY SECRETARY documented in this encounter Plan of Treatment Not on file documented as of this encounter Visit Diagnoses Diagnosis Venous insufficiency- Primary Unspecified venous (peripheral) insufficiency documented in this encounter Care Teams Sand Polisher Relationship Specialty Start Date End Date Burke Rosenberg DO [address] [facility] [address] [place] [address] PCP - General 10/09/16 02/19/20 Luther Bone RN 3464 [facility] [address] [place] [address] Hardware Trainer 12/01/17 9 Gregg Peace RN 7853 [facility] [address] [place] [address] Hardware Trainer 12/08/17 documented as of this encounter
--- OUTSIDE RECORDS SUMMARY | 2024-06-27 01:56 | XMS_ITS | Encounter Summary ---
Author Organization [facility] Healthcare Address [address] [place] [address] Care Team Providers Care Mail Carrier Technician Name Role Phone Burke Rosenberg DO Primary Care Provider Luther Bone RN Unavailable Gregg Peace RN Unavailable Encounter Details Date Type Department Care Team (Late st Contact Info) Description 07/09/2018 Orders Only [facility] Health Information Management [address] [place] [address] Scanning, Provider Social History Tobacco Use Types Packs/Day Years Used Date Smoking Tobacco: Never Smokeless Tobacco: Never Alcohol Use Standard Drinks/Week Comments No 0 (1 standard drink = 0.6 oz pur e alcohol) Comments No Sex and Gender Information Value Date Recorded Sex Assigned at Not on file Legal Sex Female 1:13 PM STATION CASHIER Gender Identity Not on file Sexual Orientation Not on file documented as of this encounter Plan of Treatment Not on file documented as of this encounter Procedures Procedure Name Priority Date/Time Associated Diagnosis Comments SCAN - LABS 07/09/2018 10:12 AM STATION CASHIER documented in this encounter Results * SCAN - LABS (07/09/2018 10:12 AM STATION CASHIER) us Provider Scanning Final Result documented in this encounter Visit Diagnoses Not on filedocumented in this encounter Care Teams Mail Carrier Technician Relationship Specialty Start Date End Date Burke Rosenberg, [address] [facility] [address] [place] [address] PCP - General 10/09/16 02/19/20 Luther Bone, DEREK [address] [facility] [address] [place] [address] Refrigeration Houseman 12/01/17 9 Gregg Peace RN 4590 [facility] [address] [place], [place] [id number] Refrigeration Houseman 12/08/17 documented as of this encounter
--- OUTSIDE RECORDS SUMMARY | 2024-06-27 01:57 | XMS_ITS | Encounter Summary ---
Author Organization [facility] Address [address] [place] [address] Phone Care Team Providers Care Spent Grain Dryer Name Role Phone Burke Rosenberg DO Primary Care Provider Luther Bone RN Unavailable Gregg Peace RN Unavailable Encounter Details Date Type Department Care Team (Late st Contact Info) Description 02/16/2018 2:00 PM CDT Office Visit [facility] Ophthalmology [address] 2nd [address] [place] [address] Butch Maria MD [address] [facility] [address] [place] [address] 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 cataract of both eyes (Primary Dx) Social History Tobacco Use Types Packs/Day Years Used Date Smoking Tobacco: Never Alcohol Use Standard Drinks/Week Comments No 0 (1 standard drink = 0.6 oz pur e alcohol) Comments Unknown Sex and Gender Information Value Date Recorded Sex Assigned at Not on file Legal Sex Female 1:13 PM PHARMACY SALES REPRESENTATIVE Gender Identity Not on file Sexual Orientation Not on file documented as of this encounter Progress Notes * Butch Maria MD - 02/16/2018 2:00 PM CDT Imp: 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 Will consider using LenSx to help prepare nucleus for removal. documented in this encounter Plan of Treatment Not on file documented as of this encounter Visit Diagnoses Diagnosis 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 cataract of both eyes- Primary documented in this encounter Historical Medications * This list may reflect changes made after this encounter. sulfamethoxazole- trimethoprim (BACTRIM,SEPTRA) suspension 200-40 mg/5 mL Take by mouth 2 (two) times a day. 04/07/2018 added in this encounter Eye Exam Visual Acuity (Snellen - Linear) Right eye Left eye Both eyes Dist cc 20/50 +1 20/40 -2 20/40 -2 Dist ph cc 20/40 -2 20/40 +1 Near cc 20/30 20/30 Correction: Glasses Tonometry (Tonopen , 2:47 PM) Right eye Left eye Pressure 14 16 Pupils Dark Light Shape APD Right eye 3 2.5 Round no APD Left eye 3 2.5 Round no APD Visual Hills Right eye Left eye Full Full Extraocular Movement Right eye Left eye Full, Ortho Full, Ortho Neuro/Psych Oriented x3: Yes Dilation Both eyes: 1.0% Mydriacyl, 2 .5% Phenylephrine @ 2:48 PM Glare Testing (BAT) High Right eye 20/60 Left eye 20/80 Additional Notes Vision OU with Mrx = 20/30 -2 External Exam Right eye Left eye External Normal Normal Slit Lamp Exam Right eye Left eye Lids/Lashes Dermatochalasis - up per lid w/hooding Dermatochalasis - upper lid w/hooding Conjunctiva/Sclera White and quiet White and lisandro et Cornea Clear Clear Anterior Chamber Shallow, Quiet Shallow, Quiet Iris Round and reactive Round and billy ctive Lens 4+ brunescent NS 4+ brunescent N S Vitreous Normal Normal Fundus Exam Right eye Left eye Disc Normal Normal C/D Ratio 0.1 0.1 Macula Normal Normal Vessels Normal Normal Periphery RPE changes RPE changes Blurred view OU Wearing Rx Sphere Cylinder [place] Add Right eye +7.00 +0.00 000 +3.25 Left eye +7.00 +0.00 000 +3.25 Age: 7 yrs Type: Bifocal Manifest Refraction Sphere Cylinder [place] Dist VA Add Near VA Right eye +8.00 +0.00 000 30 +1 +3.25 20/30 Left eye +7.50 +0.00 000 40 +2 +3.25 20/30 Care Teams Spent Grain Dryer Relationship Specialty Start Date End Date Burke Rosenberg DO [address] [facility] [address] [place] [address] PCP - General 10/09/16 02/19/20 Luther Bone RN [address] [facility] [address] [place], [place] [id number] Clinical Psychologist Private Practice 12/01/17 9 Gregg Peace RN 4059 [facility] [address] [place] [address] Clinical Psychologist Private Practice 12/08/17 documented as of this encounter
--- OUTSIDE RECORDS SUMMARY | 2024-06-27 01:57 | XMS_ITS | Encounter Summary ---
Author Organization [facility] Facility Care Team Providers Care Senior Telecommunications Technician Name Role Phone Burke Rosenberg DO Primary Care Provider [phone] Encounter Details Date Type Department Care Team (Late st Contact Info) Description 08/11/2013 - 08/11/2013 11:59 PM COUNTERSINKER Hospital [facility] Ferrell [facility] [address] [facility] [address] [place] [address] Hematuria Social History Tobacco Use Types Packs/Day Years Used Date Smoking Tobacco: Never Assessed Alcohol Use Standard Drinks/Week Comments No 0 (1 standard drink = 0.6 oz pur e alcohol) Comments Unknown Sex and Gender Information Value Date Recorded Sex Assigned at Not on file Legal Sex Female 1:13 PM COUNTERSINKER Gender Identity Not on file Sexual Orientation Not on file documented as of this encounter Medications at Time of Discharge metoprolol (LOPRESSOR) 50 mg tablet Take 50 mg by mouth 2 times daily. 02/11/2013 12/25/2017 predniSONE (DELTASONE) 5 mg tablet Take 5 mg by mouth cash sales audit clerk before breakfast. 02/10/2013 05/21/2018 sodium bicarbonate 650 mg tablet Take 1 tablet by mouth nightly. 03/10/2013 09/30/2018 tacrolimus (PROGRAF) 1 mg capsule Take 2 mg by mouth 2 (two) times a day. 03/02/2013 09/29/2018 documented as of this encounter Plan of Treatment Not on file documented as of this encounter Procedures Procedure Name Priority Date/Time Associated Diagnosis Comments DISCHARGE LABORATORY CUMULATIVE REPORT Routine 08/13/2013 5:09 PM COUNTERSINKER URINE (AEROBIC) CULTURE, CDR Routine 08/11/2013 2:13 PM COUNTERSINKER ALL MICROBIOLOGY REPORT SECTION Routine 08/11/2013 12:00 AM COUNTERSINKER documented in this encounter Results * Discharge Laboratory Cumulative Report (08/13/2013 5:09 PM COUNTERSINKER) 08/13/2013 5:09 PM COUNTERSINKER Narrative HISTORICAL RESULTS - 08/13/2013 5:09 PM COUNTERSINKER ? [facility] ? Department of Laboratories ?[facility] [address] ?[facility] ??Division ??Urologic ?Surgery ?[address] [place] [address] Patient Name: ? JULIET DUNLAP Med Rec Number: ?? [id number] Date of : ?1935 Gender/Age: ? Female 78 years Doctor: ? Pretty H Lowery, M.D. Report Date/Time: 08/13/2013 17:09 ?* Abnormal ??C Critical ??f Footnote ??^ Corrected ??L Low ??H High ?i Interp Data ??@ Reference Lab ?Chart Type: Cumulative ? MICROBIOLOGY ? PROCEDURE: Urine Culture ?SOURCE: Urine COLLECTED: 08/11/13 ??1413 ? BODY SITE: STARTED: 08/11/13 ??1445 FREE TEXT SOURCE: FINAL REPORT REPORTED: 08/13/13 1132 Insignificant growth based on current clinical standards. Historical Provider MD LAB BLOOD ORDERABLES Paty l Result Performing Organization Address City/[facility] de Phone Number HISTORICAL RESULTS * Urine (aerobic) culture (08/11/2013 2:13 PM COUNTERSINKER) Urine (Unknown) 08/11/2013 2 :13 PM COUNTERSINKER 08/11/2013 2:45 PM COUNTERSINKER Narrative HISTORICAL RESULTS - 08/13/2013 11:32 AM COUNTERSINKER Insignificant growth based on current clinical standards. Historical Provider LAB MICROBIOLOGY - GENERA L ORDERABLES Final Result Performing Organization Address City/[facility] de Phone Number HISTORICAL RESULTS * All Microbiology Report Section (08/11/2013 12:00 AM COUNTERSINKER) 08/11/2013 Narrative HISTORICAL RESULTS - 08/13/2013 12:38 PM COUNTERSINKER ? [facility] ?[address] [facility] [place] ?[place], [place] [address] ? Patient Name: ??GLYNN JULIET A ? Med Rec Number: [id number] ? Fin Number: ?[id number] ? Date: ?1935 ? Sex/Age: ? Female 78 years ? Admit Date: ?08/11/2013 ? Discharge Date: 08/11/2013 ? Doctor: ?Lowery , Pretty H ? Facility: ?[facility] ? Location: ?[facility] ?* Abnormal ??A Alert ??f Footnote ??^ Corrected ??L Low ??H High ?i Interp Data ??@ Ref Lab ? Chart Type:Cumulative ?* * * * MICROBIOLOGY - URINE * * * * ?PROCEDURE: Urine Culture ? SOURCE: Urine ? COLLECTED: 08/11/13 ??1413 ?BODY SITE: ? STARTED: 08/11/13 ??1445 ? FREE TEXT SOURCE: ? FINAL REPORT ? REPORTED: 08/13/13 1132 ? Insignificant growth based on current clinical standards. us Historical Provider MD LAB MICROBIOLOGY - GENERA L ORDERABLES Final Result Performing Organization Address City/State/[facility] Co de Phone Number HISTORICAL RESULTS documented in this encounter Visit Diagnoses Diagnosis Hematuria Hematuria, unspecified documented in this encounter Care Teams Senior Telecommunications Technician Relationship Specialty Start Date End Date Burke Rosenberg DO [address] [place] [address] PCP - General 09/27/10 02/19/14 documented as of this encounter
--- OUTSIDE RECORDS SUMMARY | 2024-06-27 01:57 | XMS_ITS | Encounter Summary ---
Author Organization [facility] Facility Care Team Providers Care Bingo Attendant Name Role Phone Burke Rosenberg DO Primary Care Provider [phone] Encounter Details Date Type Department Care Team (Late st Contact Info) Description 07/08/2012 - 07/05/2013 11:59 PM MANUFACTURING INSPECTOR Hospital Encounter [facility] Social History Tobacco Use Types Packs/Day Years Used Date Smoking Tobacco: Never Assessed Alcohol Use Standard Drinks/Week Comments No 0 (1 standard drink = 0.6 oz pur e alcohol) Comments Unknown Sex and Gender Information Value Date Recorded Sex Assigned at Not on file Legal Sex Female 1:13 PM MANUFACTURING INSPECTOR Gender Identity Not on file Sexual Orientation Not on file documented as of this encounter Medications at Time of Discharge metoprolol (LOPRESSOR) 50 mg tablet Take 50 mg by mouth 2 times daily. 02/11/2013 12/25/2017 predniSONE (DELTASONE) 5 mg tablet Take 5 mg by mouth early childhood educator aide before breakfast. 02/10/2013 05/21/2018 sodium bicarbonate 650 mg tablet Take 1 tablet by mouth nightly. 03/10/2013 09/30/2018 tacrolimus (PROGRAF) 1 mg capsule Take 2 mg by mouth 2 (two) times a day. 03/02/2013 09/29/2018 documented as of this encounter Plan of Treatment Not on file documented as of this encounter Procedures Procedure Name Priority Date/Time Associated Diagnosis Comments DISCHARGE LABORATORY CUMULATIVE REPORT Routine 09/23/2012 5:07 PM CDT SPECIMEN SOURCE Routine 09/09/2012 10:00 AM MANUFACTURING INSPECTOR BLOOD CLASS II AB SCR RENAL SINGLE ANTIGEN Routine 09/09/2012 10:00 AM MANUFACTURING INSPECTOR BLOOD CLASS I AB SCR RENAL SINGLE ANTIGEN Routine 09/09/2012 10:00 AM MANUFACTURING INSPECTOR documented in this encounter Results * Discharge Laboratory Cumulative Report (09/23/2012 5:07 PM CDT) 09/23/2012 5:07 PM CDT Narrative HISTORICAL RESULTS - 09/23/2012 5:07 PM CDT ? [facility] ? Department of Laboratories ?[facility] [id number] ?BJ ??Kidney ??Transplant ?Recipient ?AR [phone] Patient Name: ? JULIET MAKI Med Rec Number: ?? [id number] Date of : ?1935 Gender/Age: ? Female 77 years Doctor: ? Matheus Mahmood M.D. Report Date/Time: 09/23/2012 17:07 ?* Abnormal ??C Critical ??f Footnote ??^ Corrected ??L Low ??H High ?i Interp Data ??@ Reference Lab ?Chart Type: Cumulative ?HLA ? 09/09/2012 ? 10:00:00 Test Class I PRA IgG ?0 Class II PRA IgG ? 5 Class II AB ID IgG ? See Comment ??f Class II AB ID IgG ? DQB1*04:02/DQA1*04:01 Class I Antigens to Avoid. ?? See Below Class II Antigens to Avoid. ??See Below DSA ?Not Applicable DSA II ? Not Applicable DSA II Present ? Not Applicable DSA Present ?Not Applicable 09/09/2012 ??10:00:00 ??Class I Antigens to Avoid. ? None 09/09/2012 ??10:00:00 ??Class II Antigens to Avoid. ? 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 ??Peripheral Blood Historical Provider MD LAB BLOOD ORDERABLES Paty l Result Performing Organization Address [facility] de Phone Number HISTORICAL RESULTS * Specimen source (09/09/2012 10:00 AM MANUFACTURING INSPECTOR) Referral specimen source Peripheral Blood HISTORICAL RESULTS Miscellaneous 09/09/2012 10: 00 AM MANUFACTURING INSPECTOR Matheus Mahmood MD LAB BLOOD ORDERABLES Final Result Performing Organization Address [facility] de Phone Number HISTORICAL RESULTS * Blood Class II AB SCR Renal Single Antigen (09/09/2012 10:00 AM MANUFACTURING INSPECTOR) Class II PRA IgG 5 % HISTORICAL RESULTS HERI II ID AB DQB1*04:02/DQA1*0 4:01 See Comment HISTORICAL RESULTS Comment:{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, 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); 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)} DSA II Not Applicable HISTO RICAL RESULTS DSA II Present Not Applicable HISTORICAL RESULTS Class II Ag to Avoid See Listed Specificities HISTORICAL RESULTS Miscellaneous 09/09/2012 10: 00 AM MANUFACTURING INSPECTOR Matheus Mahmood MD LAB BLOOD ORDERABLES Final Result Performing Organization Address [facility] de Phone Number HISTORICAL RESULTS * Blood Class I AB SCR Renal Single Antigen (09/09/2012 10:00 AM MANUFACTURING INSPECTOR) Class I PRA IgG 0 % HISTORICAL RESULTS DSA I Not Applicable HISTO RICAL RESULTS DSA I Present Not Applicable H ISTORICAL RESULTS Class I Ag to Avoid None HISTORICAL RESULTS Miscellaneous 09/09/2012 10: 00 AM MANUFACTURING INSPECTOR us Matheus Mahmood MD LAB BLOOD ORDERABLES Final Result HISTORICAL RESULTS documented in this encounter Visit Diagnoses Not on filedocumented in this encounter Care Teams Bingo Attendant Relationship Specialty Start Date End Date Burke Rosenberg DO [address] [place] [id number] PCP - General 09/27/10 02/19/14 documented as of this encounter
--- OUTSIDE RECORDS SUMMARY | 2024-06-27 01:57 | XMS_ITS | Encounter Summary ---
Author Organization [facility] Healthcare Address [address] [place] [address] Care Team Providers Care Horse Doctor Name Role Phone Burke Rosenberg DO Primary Care Provider Luther Bone RN Unavailable [phone] Gregg Peace RN Unavailable Encounter Details Date Type Department Care Team (Latest Contact Info) Description 05/05/2018 10:25 AM CDT - 05/05/2018 11:00 AM CDT Surgery [facility] [address] [place] [address] Butch Maria MD [address] [facility] [address] [place] [address] EXTRACTION CATARACT - PHACOEMULSIFICATION AND LENS IMPLANT Surgery Details Date/Time Status Location OR Service Patient Class Case Class Case Type Trauma Case? 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 Gender Identity Not on file Sexual Orientation Not on file documented as of this encounter Last Filed Vital Signs Vital Sign Reading Time Taken Comments Blood Pressure 182/81 05/05/2018 9:10 AM CDT Pulse 72 05/05/2018 9:25 AM CDT Temperature 37 ??C (98.6 ??F) 05/05/2018 10:25 AM CDT Respiratory Rate 18 05/05/2018 9:25 AM CDT Oxygen Saturation 99% 05/05/2018 9:25 AM CDT Inhaled Oxygen Concentration - - Weight 59 kg (130 lb) 04/06/2018 1:00 PM CDT Height 158.1 cm (5' 2.25 ) 04/06/2018 1:00 PM CD T Body Mass Index 23.59 04/06/2018 1:00 PM CDT documented in this encounter Discharge Instructions * Discharge Instructions* Butch Maria MD - 05/05/2018 10:23 AM CDT POST- OPERATIVE INSTRUCTIONS 1. Lie [...] NOT NORMAL, and should be reported immediately. documented in this encounter Medications at Time of Discharge cyanocobalamin (Vitamin B-12) 100 mcg tablet Take 1 tablet (100 mcg total) by mouth daily acyclovir (ZOVIRAX) 200 mg capsule Take 200 mg by mouth irrigator before breakfast. 9 aspirin 81 mg tabletIndications :prevention of thrombosis Take 81 mg by mouth every morning. 3 biotin 1 mg tablet Take 2 tablets by mouth daily before breakfast 0 cholecalciferol (VITAMIN D-3) 2,000 unit tablet Take 1 tablet (2,000 Units total) by mouth daily. 30 tablet 11 02/18/2018 2 denosumab (PROLIA) 60 mg/mL syringe Inject 1 mL under the skin every 6 months. 9 ketorolac (ACULAR LS) 0.4 % drops Instill 1 drop into surgical eye three times daily starting two days before surgery 5 mL 1 04/29/2018 9 levothyroxine (SYNTHROID, LEVOTHROID) 100 mcg tablet Take 100 mcg by mouth irrigator before breakfast. 04/14/2014 8 lisinopril (PRINIVIL,ZESTRIL ) 10 mg tablet Take 1 tablet (10 mg total) by mouth daily. 90 tablet 3 12/18/2017 9 metoprolol (LOPRESSOR) 25 mg tablet Take 25 mg by mouth 2 times daily. 11/13/2016 9 moxifloxacin (VIGAMOX) 0.5 % ophthalmic solution Instill 1 drop into surgical eye three times daily starting two days before surgery 3 mL 1 04/29/2018 8 pravastatin (PRAVACHOL) 20 mg tablet Take 1 tablet (20 mg total) by mouth nightly 12/16/2016 4 prednisoLONE acetate (PRED FORTE) 1 % ophthalmic suspension Instill 1 drop into surgical eye three times daily starting after surgery 5 mL 1 04/29/2018 9 predniSONE (DELTASONE) 5 mg tablet Take 5 mg by mouth irrigator before breakfast. 02/10/2013 8 sodium bicarbonate 650 mg tablet Take 1 tablet by mouth nightly. 03/10/2013 9 tacrolimus (PROGRAF) 1 mg capsule Take 2 mg by mouth 2 (two) times a day. 03/02/2013 9 tobramycin (TOBREX) 0.3 % ophthalmic solution Instill 1 drop into surgical eye three times daily starting two days before surgery 5 mL 1 04/29/2018 9 amoxicillin-clavu lanate (AUGMENTIN) 875-125 mg per tablet TK 1 T PO BID FOR 10 DAYS. 1 04/07/2018 9 amoxicillin-clavu lanate (AUGMENTIN) 875-125 mg per tablet Take by mouth every 12 hours 04/07/2018 9 azithromycin (ZITHROMAX) 250 mg tablet ZPK 0 03/19/2018 9 fluticasone (FLONASE) 50 mcg/actuation nasal spray SHAKE LQ AND U 1 SPR IEN QD 3 03/19/2018 9 lisinopril (PRINIVIL,ZESTRIL ) 10 mg tablet TK 1 T PO D 3 03/18/2018 9 metoprolol (LOPRESSOR) 50 mg tablet Take 1 tablet (50 mg total) by mouth 2 (two) times a day. 180 tablet 2 12/25/2017 9 metoprolol (LOPRESSOR) 50 mg tablet TK 1 T PO BID 2 04/03/2018 9 documented as of this encounter Discharge Disposition Disposition Code Departure Means Destination Discharge to home or self care documented in this encounter H&P Notes * Butch Maria MD - 05/05/2018 9:44 AM CDT I have reviewed the H&P, examined the patient, and endorse the findings as written. Plan of Care : Based on the above findings, I consider Juliet Mendesmeyer to be an acceptable risk for : Procedure(s): EXTRACTION CATARACT - PHACOEMULSIFICATION AND LENS IMPLANT Source Note - Butch Maria MD - 05/03/2018 8:55 PM CDT This patient is a 83 y/o WF presenting for cataract surgery OS. The patient is noticing vision lossaffecting daily activities. POHx - unremarkable PMHx and Rx - see chart Allergies - Levofloxacin, Codeine, TCN, Nitrofurantoin, Keflex Ocular Exam - visual acuity (VA) OS - 20/50 best corrected, worsening to 20/80 under glare conditions Lens OS - 4+ brunescent NS Fundus OS - cup-to-disc ratio (C/D) 0.1, m/v/p - unremarkable Imp: Visually significant mature nuclear cataract OS P: Proceed with phaco/IOL OS * Butch Maria MD - 05/03/2018 8:55 PM CDT This patient is a 83 y/o WF presenting for cataract surgery OS. The patient is noticing vision lossaffecting daily activities. POHx - unremarkable PMHx and Rx - see chart Allergies - Levofloxacin, Codeine, TCN, Nitrofurantoin, Keflex Ocular Exam - visual acuity (VA) OS - 20/50 best corrected, worsening to 20/80 under glare conditions Lens OS - 4+ brunescent NS Fundus OS - cup-to-disc ratio (C/D) 0.1, m/v/p - unremarkable Imp: Visually significant mature nuclear cataract OS P: Proceed with phaco/IOL OS documented in this encounter Miscellaneous Notes * Op Note - Butch Maria MD - 05/05/2018 10:04 AM CDT PREOPERATIVE DIAGNOSIS: Mature Nuclear Cataract Left eye POSTOPERATIVE DIAGNOSIS: Mature Nuclear Cataract Left eye SURGEON: Butch Maria MD PROCEDURE PERFORMED: Phacoemulsification of cataract with implantation of posterior chamber intraocular lens using Trypan Blue - Left Eye ANESTHESIA: Local/MAC with facial and retrobulbar [...] pulsed phacoemulsification power. Total phaco power was 55.85 CDE. The cortex of the lens was then removed using the automated irrigation/aspirationsystem. The posterior capsule was polished to remove residual epithelialcells. The anterior chamberwas then reformed with Provisc to open up the capsular bag. 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 Intraoperative Fluids: 0 mls Specimens: No specimen collected in procedure Implants: Implant Name Type Inv. Item Serial No. Dry House Tender Lot No. LRB No. Used SON SURGICAL [id number] ACRYSOF IQ NATURAL STABLEFORCE ACRYSERT 6MM 13MM 1 PIECE FOLDABLE - [id number] - [id number] Lens SON SURGICAL [id number] ACRYSOF IQ NATURAL STABLEFORCE ACRYSERT 6MM 13MM 1 PIECE FOLDABLE [id number] Son Surgical 0 Left 1 Blood/Blood Products Transfused: 0 mls Complications: None Condition on Discharge from the operating room was stable Butch Maria MD Date: 05/05/2018 Time: 10:21 AM No Resident involved on case * Pre-Procedure Instructions - Adeline Carlson NP - 04/07/2018 3:44 PM CDT [facility] Location: [facility] The night before your surgery: * Do [...] ??? acyclovir (ZOVIRAX) 200 mg capsule Take morning of surgery ??? aspirin 81 mg tablet Take morning of surgery ??? biotin 1 mg tablet Take morning of surgery ??? cyanocobalamin (Vitamin B-12) 100 mcg tablet Take morning of surgery ??? denosumab (PROLIA) 60 mg/mL syringe Don't take on day of surgery ??? levothyroxine (SYNTHROID, LEVOTHROID) 100 mcg tablet Take morning of surgery ??? metoprolol (LOPRESSOR) 25 mg tablet Take morning of surgery ??? pravastatin (PRAVACHOL) 20 mg tablet Don't take on day of surgery ??? predniSONE (DELTASONE) 5 mg tablet Take morning of surgery ??? sodium bicarbonate 650 mg tablet Take morning of surgery ??? tacrolimus (PROGRAF) 1 mg capsule Take morning of surgery ??? cholecalciferol (VITAMIN D-3) 2,000 unit tablet Take morning of surgery ??? lisinopril (PRINIVIL,ZESTRIL) 10 mg tablet Take morning of surgery ??? metoprolol (LOPRESSOR) 50 mg tablet Take morning of surgery General Instructions For Medications: ?? Stop all of these medications 5 days prior to your surgery: excedrin, motrin, advil, ibuprofen, aleve, naproxen, celebrex, celecoxib, meloxicam ?? Stop all of these medications 7-14 days prior to your surgery: Vitamin E, Fish Oil (Lovaza, [place] 3), Herbal medicines, Diet Pills ?? If you take aspirin, do not stop taking it unless you were instructed to do so. ?? If you have pain, you may take tylenol (acetominophen). Do not take more than 6 tablets [...] prep or special diet before surgery * Pre-Procedure Instructions - Hal Mcgraw RN - 04/06/2018 2:01 PM CDT ?? Arrival time and surgical time will be provided by your surgeon. ?? Bring a current list of all medications. ?? Bring your ID and insurance card with you. ?? Do not shave the area where surgery is to be performed 24 hours prior to surgery. ?? Wash your hair with normal shampoo the morning of or night before surgery. ?? Wear loose comfortable clothes the morning of surgery ?? Shower the evening before surgery and morning of surgery with an antibacterial soap. ?? documented in this encounter Plan of Treatment Not on file documented as of this encounter Procedures Procedure Name Priority Date/Time Associated Diagnosis Comments EXTRACTION CATARACT - PHACOEMULSIFICATION AND LENS IMPLANT 05/05/2018 10:00 AM CDT 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 cataract of both eyes documented in this encounter Visit Diagnoses Diagnosis 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 cataract of both eyes 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 cataract of both eyes documented in this encounter Admitting Diagnoses Diagnosis 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 cataract of both eyes documented in this encounter Administered Medications Inactive Administered Medications - up to 3 most recent administrations Medication Order MAR Action Action Date Dose Rate Site balanced salt soln no.2 irrig. (BSS) intraocular solution As needed, Starting on Thu05/05/18 at 0955, Intra-Op Given 05/05/2018 10:00 AM CDT 15 mL Given 05/05/2018 9:55 AM CDT 15 mL chondroitin sulf-sod hyaluron (DUOVISC) 3 %-4 %(0.5 mL) 1 % (0.55 mL) intraocular kit As needed, Starting on Thu05/05/18 at 0958, Intra-Op Given 05/05/2018 9:58 AM CDT 1 kit dilating cocktail ophthalmic solution 0.3 mL 0.3 mL, left eye, Once, On Thu05/05/18 at 1000, For 1 dose, Pre-Op, Ingredients per 0.3 mL Lidocaine 2% jelly 0.214 mL Phenylephrine 10% ophth drops 0.021 mL Cyclopentolate 1% ophth drops 0.021 mL Tropicamide 1% ophth drops 0.021 mL Ketorolac 0.5% ophth drops 0.021 mL, Indications: Mydriasis During Ocular SurgeryIndications:Mydriasis During Ocular Surgery Given 05/05/2018 9:17 AM CDT 0.3 mL EPINEPHrine 0.3 mg in balanced salt soln no.2 irrig. (BSS) 500 mL irrigation solution As needed, Starting on Thu05/05/18 at 0955, Intra-Op Given 05/05/2018 9:55 AM CDT 500 mL Lef t Eye Lactated Ringer's (LR) infusion 30 mL/hr, intravenous, Continuous, Starting on Thu05/05/18 at 1100, Pre-Op povidone-iodine (BETADINE PREP) 5 % ophthalmic solution As needed, Starting on Thu05/05/18 at 0957, Intra-Op Given 05/05/2018 9:57 AM CDT 30 mL sodium chloride 0.9% flush 0.5-20 mL 0.5-20 mL, intra-catheter, As needed, line care, Starting on Thu05/05/18 at 0916, Pre-Op, Flush volume based on line type and size. Flush before and after each use. , Indications: FlushingIndications:Flushing documented in this encounter Discontinued Medications Medication Sig Discontinue Reason Start Date End Da te cephalexin (KEFLEX) 500 mg capsule Take 500 mg by mouth daily. Error 04/27/2017 04/06/2018 oxybutynin XL (DITROPAN-XL) 10 mg 24 hr tablet Take 10 mg by mouth daily. Therapy completed 09/17/2017 04/07/2018 sulfamethoxazole-trimetho prim (BACTRIM,SEPTRA) suspension 200-40 mg/5 mL Take by mouth 2 (two) times a day. Therapy completed 04/07/2018 documented as of this encounter Historical Medications * This list may reflect changes made after this encounter. denosumab (PROLIA) 60 mg/mL syringe Inject 1 mL under the skin every 6 months. 04/11/2019 acyclovir (ZOVIRAX) 200 mg capsule Take 200 mg by mouth irrigator before breakfast. 03/03/2019 added in this encounter Active and Recently Administered Medications Times are shown in CDT. Scheduled Medication Order 05/03/2018 05/04/2018 05/05/2018 dilating cocktail ophthalmic solution 0.3 mL (COMPLETED) 0.3 mL, left eye, Once, On Thu05/05/18 at 1000, For 1 dose, Pre-Op, Ingredients per 0.3 mL Lidocaine 2% jelly 0.214 mL Phenylephrine 10% ophth drops 0.021 mL Cyclopentolate 1% ophth drops 0.021 mL Tropicamide 1% ophth drops 0.021 mL Ketorolac 0.5% ophth drops 0.021 mL, Indications: Mydriasis During Ocular Surgery 0917 (Given - Provid er: Brad Horta RN) lidocaine 1 % and bupivacaine 0.375 % (EYE LOCAL) ophthalmic soln 5 mL 1 drop, left eye, Once, On Thu05/05/18 at 1000, For 1 dose, Pre-Op, Retrobulbar 1000 (Due) Continuous Medication Order 05/03/2018 05/04/2018 05/05/2018 Lactated Ringer's (LR) infusion 30 mL/hr, intravenous, Continuous, Starting on Thu05/05/18 at 1100, Pre-Op 1100 (Due) PRN Medication Order 05/03/2018 05/04/2018 05/05/2018 balanced salt soln no.2 irrig. (BSS) intraocular solution (CANCELED) As needed, Starting on Thu05/05/18 at 0955, Intra-Op 0955 (Given - Provid er: Butch Maria MD)1000 (Given - Provider: Butch Maria MD) chondroitin sulf-sod hyaluron (DUOVISC) 3 %-4 %(0.5 mL) 1 % (0.55 mL) intraocular kit (CANCELED) As needed, Starting on Thu05/05/18 at 0958, Intra-Op 0958 (Given - Provid er: Butch Maria MD) EPINEPHrine 0.3 mg in balanced salt soln no.2 irrig. (BSS) 500 mL irrigation solution (CANCELED) As needed, Starting on Thu05/05/18 at 0955, Intra-Op 0955 (Given - Provid er: Butch Maria MD) povidone-iodine (BETADINE PREP) 5 % ophthalmic solution (CANCELED) As needed, Starting on Thu05/05/18 at 0957, Intra-Op 0957 (Given - Provid er: Butch Maria MD) sodium chloride 0.9% flush 0.5-20 mL 0.5-20 mL, intra-catheter, As needed, line care, Starting on Thu05/05/18 at 0916, Pre-Op, Flush volume based on line type and size. Flush before and after each use. , Indications: Flushing documented in this encounter Orders Medications Ordered That Taras ht Not Have Been Administered Count Last Ordered Date First Ordered Date Lactated Ringer's (LR) infusion 1 8 lidocaine 1 % and bupivacain e 0.375 % (EYE LOCAL) ophthalmic soln 5 mL 1 05/05/2018 moxifloxacin (VIGAMOX) 0.5 % ophthalmic solution 1 05/05/2018 prednisoLONE acetate (PRED F ORTE) 1 % ophthalmic suspension 1 05/05/2018 sodium chloride 0.9% flush 0.5-20 mL 1 04/07 documented in this encounter Care Teams Horse Doctor Relationship Specialty Start Date End Date Burke Rosenberg DO [address] [facility] [address] [place] [address] PCP - General 10/09/16 02/19/20 Luther Bone, RN [address] [facility] [address] [place], [place] [id number] Channel Director 12/01/17 9 Gregg Peace, DEREK [address] [facility] [address] [place] [address] Channel Director 12/08/17 documented as of this encounter
--- OUTSIDE RECORDS SUMMARY | 2024-06-27 01:57 | XMS_ITS | Encounter Summary ---
Author Organization [facility] Address [address] [place] [address] Phone Care Team Providers Care Caser Up Name Role Phone Burke Rosenberg DO Primary Care Provider Luther Bone RN Unavailable [phone] Gregg Peace RN Unavailable [phone] Reason for Referral * (Routine) - Closed Specialty Diagnoses / Procedures Referred By Jairo meyer Referred To Contact Diagnoses 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 cataract of both eyes Procedures IOL Biometry - OU - Both Eyes Eda Sofia MD Phone: tel: fax: [facility] (All Locations) Referral ID Status Reason Start Date Expiration Date Visits Re quested Visits Authorized [id number] Closed 04/29/2018 11/08/2019 1 1 Encounter Details Date Type Department Care Team (Late st Contact Info) Description 04/29/2018 10:00 AM CDT Office Visit [facility] Ophthalmology [address] [place] [address] Eda Sofia MD [address] [facility] [address] [place] [address] 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 cataract of both eyes (Primary Dx) Social History Tobacco Use Types Packs/Day Years Used Date Smoking Tobacco: Never Smokeless Tobacco: Never Alcohol Use Standard Drinks/Week Comments No 0 (1 standard drink = 0.6 oz pur e alcohol) Comments Unknown Sex and Gender Information Value Date Recorded Sex Assigned at Not on file 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 Gender Identity Not on file Sexual Orientation Not on file documented as of this encounter Ordered Prescriptions Prescription Sig Dispense Quantity Refills Last Filled Start Date End Date tobramycin (TOBREX) 0.3 % ophthalmic solution Instill 1 drop into surgical eye three times daily starting two days before surgery 5 mL 1 04/29/2018 9 prednisoLONE acetate (PRED FORTE) 1 % ophthalmic suspension Instill 1 drop into surgical eye three times daily starting after surgery 5 mL 1 04/29/2018 9 moxifloxacin (VIGAMOX) 0.5 % ophthalmic solution Instill 1 drop into surgical eye three times daily starting two days before surgery 3 mL 1 04/29/2018 8 ketorolac (ACULAR LS) 0.4 % drops Instill 1 drop into surgical eye three times daily starting two days before surgery 5 mL 1 04/29/2018 9 documented in this encounter Progress Notes * Eda Sofia MD - 04/29/2018 10:00 AM CDT Patient here for pre-op exam and testing for cataract surgery Phaco/IOL OS scheduled on 05/05 Phaco/IOL OD scheduled on 06/02 LenStar, IOL Master, and Topography done Rx's sent for Moxifloxacin, Ketorolac 0.4%, and Prednisolone 1% drops Consent signed Discussed refractive intraocular lens options for correction of astigmatism and presbyopia. Patienthas chosen SN60WF with plano target documented in this encounter Miscellaneous Notes * Addendum Note - Eda Sofia MD - 04/29/2018 10:00 AM CDTAddended by: EDA SOFIA on: 04/29/2018 03:54 PM Modules accepted: Orders * Addendum Note - Eda Sofia MD - 04/29/2018 10:00 AM CDTAddended by: DEA SOFIA on: 04/29/2018 03:55 PM Modules accepted: Orders documented in this encounter Plan of Treatment Not on file documented as of this encounter Procedures Procedure Name Priority Date/Time Associated Diagnosis Comments IOL BIOMETRY - OU - BOTH EYES Routine 04/29/2018 11:18 AM CDT 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 cataract of both eyes documented in this encounter Results * IOL Biometry - OU - Both Eyes (04/29/2018 11:18 AM CDT) Anatomical Region Laterality Modality Head Other Narrative 04/29/2018 11:18 AM CDT Right Eye Lens style: SN60WF. Left Eye Lens style: SN60WF. Lens power: +29.50 D. Target refraction: 0. us Eda Sofia MD OPHTH ULTRASOUND Final Resu lt documented in this encounter Visit Diagnoses Diagnosis 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 cataract of both eyes- Primary documented in this encounter Care Teams Caser Up Relationship Specialty Start Date End Date Burke Rosenberg DO [address] [facility] [address] [place] [address] PCP - General 10/09/16 02/19/20 Luther Bone RN [address] [facility] [address] [place], [place] [id number] Unit Assistant 12/01/17 9 Gregg Peace RN [address] [facility] [address] [place] [address] Unit Assistant 12/08/17 documented as of this encounter
--- OUTSIDE RECORDS SUMMARY | 2024-06-27 01:57 | XMS_ITS | Encounter Summary ---
Author Organization [facility] Healthcare Address [address] [place] [address] Care Team Providers Care Fire Range Technician Name Role Phone Burke Rosenberg DO Primary Care Provider [phone] Luther Bone RN Unavailable [phone] Gregg Peace RN Unavailable Encounter Details Date Type Department Care Team (Late st Contact Info) Description 04/06/2018 Orders Only [facility] Health Information Management [address] [place] [address] Scanning, Provider Social History Tobacco Use Types Packs/Day Years Used Date Smoking Tobacco: Never Smokeless Tobacco: Never Alcohol Use Standard Drinks/Week Comments No 0 (1 standard drink = 0.6 oz pur e alcohol) Comments Unknown Sex and Gender Information Value Date Recorded Sex Assigned at Not on file 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 Gender Identity Not on file Sexual Orientation Not on file documented as of this encounter Plan of Treatment Not on file documented as of this encounter Procedures Procedure Name Priority Date/Time Associated Diagnosis Comments SCAN - LABS 04/06/2018 8:13 AM CDT documented in this encounter Results * SCAN - LABS (04/06/2018 8:13 AM CDT) us Provider Scanning Final Result documented in this encounter Visit Diagnoses Not on filedocumented in this encounter Care Teams Fire Range Technician Relationship Specialty Start Date End Date Burke Rosenberg DO [address] [facility] [address] [place] [address] PCP - General 10/09/16 02/19/20 Luther Bone RN [address] [facility] [address] [place] [address] Bowling Ball Weigher And Packer 12/01/17 9 Gregg Peace RN [address] [facility] [address] [place] [address] Bowling Ball Weigher And Packer 12/08/17 documented as of this encounter
--- OUTSIDE RECORDS SUMMARY | 2024-06-27 01:57 | XMS_ITS | Encounter Summary ---
Author Organization [facility] Healthcare Address [address] [place] [address] Care Team Providers Care Tomahawk Weapon System Operator Name Role Phone Burke Rosenberg DO Primary Care Provider [phone] Luther Bone RN Unavailable [phone] Gregg Peace RN Unavailable Reason for Visit * Reason Onset Date Comments Forms/questionnaires 04/27/2018 5yr TRF com pleted in [facility] Encounter Details Date Type Department Care Team (Late st Contact Info) Description 04/27/[address] 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 Gender Identity Not on file Sexual Orientation Not on file documented as of this encounter Plan of Treatment Not on file documented as of this encounter Visit Diagnoses Not on filedocumented in this encounter Care Teams Tomahawk Weapon System Operator Relationship Specialty Start Date End Date Burke Rosenberg DO [address] [facility] [address] [place] [address] PCP - General 10/09/16 02/19/20 Luther Bone RN [address] [facility] [address] [place] [address] Vice President Quality 12/01/17 9 Gregg Peace RN [address] [facility] [address] [place] [address] Vice President Quality 12/08/17 documented as of this encounter
--- OUTSIDE RECORDS SUMMARY | 2024-06-27 01:57 | XMS_ITS | Encounter Summary ---
Author Organization [facility] Care Team Providers Care Head Of Ethics And Compliance Name Role Phone Burke Rosenberg DO Primary Care Provider [phone] Encounter Details Date Type Department Care Team (Late st Contact Info) Description 08/23/2013 12:58 PM INDUSTRIAL COFFEE GRINDER - 08/23/2013 4:00 PM [facility] Hospital Encounter [facility] Pretty Mckinley MD [address] [facility] [address] [place] [address] Pre-procedural laboratory examination; Pre-operative cardiovascular examination; Female stress incontinence; 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); End-stage renal disease (CMS/HCC) (HCC); Esophageal reflux; Heart disease; Herpes zoster; Hypothyroidism; Arthropathy; Diaphragmatic hernia; Hepatitis B; Other specified cardiac dysrhythmias; Abnormal electrocardiogram; Status post kidney transplant; Other acquired absence of organ; 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); Personal history of systemic steroid therapy; Encounter for long-term (current) use of other medications; Encounter for long-term (current) use of aspirin Social History Tobacco Use Types Packs/Day Years Used Date Smoking Tobacco: Never Assessed Alcohol Use Standard Drinks/Week Comments No 0 (1 standard drink = 0.6 oz pur e alcohol) Comments Unknown Sex and Gender Information Value Date Recorded Sex Assigned at Not on file 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 02/11/2013 12/25/2017 predniSONE (DELTASONE) 5 mg tablet Take 5 mg by mouth metallographic technician before breakfast. 02/10/2013 05/21/2018 sodium bicarbonate 650 mg tablet Take 1 tablet by mouth nightly. 03/10/2013 09/30/2018 tacrolimus (PROGRAF) 1 mg capsule Take 2 mg by mouth 2 (two) times a day. 03/02/2013 09/29/2018 documented as of this encounter Plan of Treatment Not on file documented as of this encounter Procedures Procedure Name Priority Date/Time Associated Diagnosis Comments ELECTROCARDIOGRAPHY (ECG) 08/23/2013 documented in this encounter Results * ELECTROCARDIOGRAPHY (ECG) (08/23/2013) Narrative 08/23/2013 Ordered by an unspecified provider. 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) End-stage renal disease (CMS/HCC) (HCC) Esophageal reflux Heart disease Unspecified heart disease Herpes zoster Herpes zoster without mention of complication Hypothyroidism Unspecified hypothyroidism Arthropathy Unspecified arthropathy, site unspecified Diaphragmatic hernia Diaphragmatic hernia without mention of obstruction or gangrene Hepatitis B Viral hepatitis B without mention of hepatic coma, acute or unspecified, without mention of hepatitis delta Other specified cardiac dysrhythmias Abnormal electrocardiogram Nonspecific abnormal electrocardiogram (ECG) (EKG) Status post kidney transplant Other acquired absence of organ 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
--- OUTSIDE RECORDS SUMMARY | 2024-06-27 01:57 | XMS_ITS | Encounter Summary ---
Author Organization [facility] Healthcare Address [address] [place] [address] Care Team Providers Care Heel Sorter Name Role Phone Burke Rosenberg DO Primary Care Provider Luther Bone RN Unavailable Gregg Peace RN Unavailable Encounter Details Date Type Department Care Team (Late st Contact Info) Description 04/29/2018 Orders Only [facility] Health Information Management [address] [place] [address] Luther Bone, RN [address] [id number] Social History Tobacco Use Types Packs/Day Years Used Date Smoking Tobacco: Never Smokeless Tobacco: Never Alcohol Use Standard Drinks/Week Comments No 0 (1 standard drink = 0.6 oz pur e alcohol) Comments Unknown Sex and Gender Information Value Date Recorded Sex Assigned at Not on file 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 Gender Identity Not on file Sexual Orientation Not on file documented as of this encounter Plan of Treatment Not on file documented as of this encounter Procedures Procedure Name Priority Date/Time Associated Diagnosis Comments SCAN - RADIOLOGY/IMAGING 04/29/2018 3:30 PM CDT documented in this encounter Results * SCAN - RADIOLOGY/IMAGING (04/29/2018 3:30 PM CDT) Anatomical Region Laterality Modality Other us Luther Bone RN Final Res ult documented in this encounter Visit Diagnoses Not on filedocumented in this encounter Care Teams Heel Sorter Relationship Specialty Start Date End Date SachinBurke avilaDO Monico [address] [facility] [address] [place] [address] PCP - General 10/09/16 02/19/20 Luther Bone, RN [address] [facility] [address] [place], [place] [id number] Postal Service Clerk 12/01/17 9 Gregg Peace RN [address] [facility] [address] [place], [place] [id number] Postal Service Clerk 12/08/17 documented as of this encounter
--- OUTSIDE RECORDS SUMMARY | 2024-06-27 01:57 | XMS_ITS | Encounter Summary ---
Author Organization [facility] Address [address] [place] [address] Phone Care Team Providers Care Garment Manufacturing Supervisor Name Role Phone Burke Rosenberg DO Primary Care Provider Luther Bone RN Unavailable [phone] Gregg Peace RN Unavailable Reason for Visit * Renal Disease (Routine) - Closed Specialty Diagnoses / Procedures Referred By Jairo meyer Referred To Contact Transplant Diagnoses CKD Procedures TRANSPLANT RETURN Referral, Self [facility] Ne[facility] Advanced Medicine 5th [place] [address] [place] [address] Phone: tel: fax: Referral ID Status Reason Start Date Expiration Date Visits Re quested Visits Authorized [id number] Closed 05/20/2018 11/29/2019 50 50 Encounter Details Date Type Department Care Team (Late st Contact Info) Description 06/09/2018 9:00 AM VETERINARY PHARMACOLOGIST Office Visit [facility] Nephrology [address] [place] [address] Advanced Medicine 5th [place] [address] Hillary Mott NP [address] [place] [address] Hypertension, unspecified type (Primary Dx); Encounter for aftercare following kidney transplant; Abnormal finding in urine Social History Tobacco Use Types Packs/Day Years Used Date Smoking Tobacco: Never Smokeless Tobacco: Never Alcohol Use Standard Drinks/Week Comments No 0 (1 standard drink = 0.6 oz pur e alcohol) Comments No Sex and Gender Information Value Date Recorded Sex Assigned at Not on file Legal Sex Female 1:13 PM VETERINARY PHARMACOLOGIST Gender Identity Not on file Sexual Orientation Not on file documented as of this encounter Last Filed Vital Signs Vital Sign Reading Time Taken Comments Blood Pressure 161/82 06/09/2018 9:01 AM VETERINARY PHARMACOLOGIST Pulse 72 06/09/2018 9:01 AM VETERINARY PHARMACOLOGIST Temperature 36.4 ??C (97.6 ??F) 06/09/2018 9:01 AM CS T Respiratory Rate - - Oxygen Saturation - - Inhaled Oxygen Concentration - - Weight 59.4 kg (130 lb 14.4 oz) 06/09/2018 9:01 AM VETERINARY PHARMACOLOGIST Height 158.1 cm (5' 2.24 ) 06/09/2018 9:01 AM CS T Body Mass Index 23.75 06/09/2018 9:01 AM VETERINARY PHARMACOLOGIST documented in this encounter Patient Instructions * Patient Instructions* Hillary Frazier NP - 06/09/2018 9:00 AM VETERINARY PHARMACOLOGIST 1.Increase Lisinopril to 20 mg daily 2.Will follow up with results of urine culture 3.Follow up with Dr Lima in regards to fistula and wound 4.Call wound center in regards to wound in left leg 5.Please schedule your echocardiogram 6. Find new Licensed Mortician 7.Increase Biotin to 2000 mg RINARY PHARMACOLOGIST documented in this encounter Progress Notes * Hillary Frazier NP - 06/09/2018 9:00 AM CST POST KIDNEY TRANSPLANT NOTE HISTORY OF PRESENT ILLNESS: Ms. Dunlap is an 82-year-old female with end-stage renal disease secondary to [...] and hiatal hernia per upper endoscopy September 2008. 15. UTI with E. coli in December and January 2014. CURRENT VISIT/REVIEW OF SYSTEMS: Since our last clinic visit, Juliet Dunlap has had a few falls resulting in bruising easily as well as a few wounds that are taking longer to heal. She reports going to the [facility] for management of these. She also is going to have her fistula examinedby Dr Lima next week d/t history of thrombosis. She also complains of some oral canker sores that she will be seeing a dentist in regards too. Denies cough, chest pain, dyspnea. Denies fevers, dysuria, urgency, or frequency. Reports compliance with immunosuppression. All other systems negative. CURRENT MEDICATIONS: Current Outpatient Prescriptions: ??? acyclovir (ZOVIRAX) 200 mg capsule, Take 200 mg by mouth early learning teacher before breakfast., Disp:, Rfl: ??? amLODIPine (NORVASC) 10 mg tablet, daily., Disp: , Rfl: ??? amoxicillin-clavulanate (AUGMENTIN) 875-125 mg per tablet, TK 1 T PO BID FOR 10 DAYS., Disp: , Rfl: 1 ??? aspirin 81 mg tablet, Take 81 mg by mouth every morning. , Disp: , Rfl: ??? azithromycin (ZITHROMAX) 250 mg tablet, ZPK, Disp: , Rfl: 0 ??? biotin 1 mg tablet, Take 1 tablet by mouth daily before breakfast. , Disp: , Rfl: ??? cholecalciferol (VITAMIN D-3) 2,000 unit tablet, Take 1 tablet (2,000 Units total) by mouth daily. (Patient taking differently: Take 2,000 Units by mouth early learning teacher before breakfast. ), Disp: 30 tablet, Rfl: 11 ??? cyanocobalamin (Vitamin B-12) 100 mcg tablet, Take 100 mcg by mouth early learning teacher before breakfast. , Disp: , Rfl: ??? denosumab (PROLIA) 60 mg/mL syringe, Inject 1 mL under the skin every 6 months., Disp: , Rfl: ??? fluticasone (FLONASE) 50 mcg/actuation nasal spray, SHAKE LQ AND U 1 SPR IEN QD, Disp: , Rfl: 3 ??? hydrocortisone (PROCTOZONE-HC) 2.5 % rectal cream, 1 application to affected area, Disp: , Rfl: ??? ketorolac (ACULAR LS) 0.4 % drops, Instill 1 drop into surgical eye three times daily starting two days before surgery, Disp: 5 mL, Rfl: 1 ??? levothyroxine (SYNTHROID, LEVOTHROID) 100 mcg tablet, Take 100 mcg by mouth early learning teacher before breakfast. , Disp: , Rfl: ??? levothyroxine in sodium chloride 0.9% IV syringe, daily., Disp: , Rfl: ??? lisinopril (PRINIVIL,ZESTRIL) 10 mg tablet, Take 1 tablet (10 mg total) by mouth daily. (Patient taking differently: Take 10 mg by mouth early learning teacher before breakfast. ), Disp: 90 tablet, Rfl: 3 ??? lisinopril (PRINIVIL,ZESTRIL) 10 mg tablet, TK 1 T PO D, Disp: , Rfl: 3 ??? metoprolol (LOPRESSOR) 25 mg tablet, Take 25 mg by mouth 2 times daily., Disp: , Rfl: ??? metoprolol (LOPRESSOR) 50 mg tablet, Take 1 tablet (50 mg total) by mouth 2 (two) times a day.,Disp: 180 tablet, Rfl: 2 ??? metoprolol (LOPRESSOR) 50 mg tablet, TK 1 T PO BID, Disp: , Rfl: 2 ??? ondansetron ODT (ZOFRAN-ODT) 4 mg disintegrating tablet, , Disp: , Rfl: ??? pravastatin (PRAVACHOL) 20 mg tablet, Take 20 mg by mouth nightly. , Disp: , Rfl: ??? prednisoLONE acetate (PRED FORTE) 1 % ophthalmic suspension, Instill 1 drop into surgical eye three times daily starting after surgery, Disp: 5 mL, Rfl: 1 ??? predniSONE (DELTASONE) 5 mg tablet, Take 1 tablet (5 mg total) by mouth daily., Disp: 30 tablet, Rfl: 11 ??? sodium bicarbonate 650 mg tablet, Take 1 tablet by mouth nightly. , Disp: , Rfl: ??? tacrolimus (PROGRAF) 1 mg capsule, Take 2 mg by mouth 2 (two) times a day. , Disp: , Rfl: ??? tobramycin (TOBREX) 0.3 % ophthalmic solution, Instill 1 drop into surgical eye three times daily starting two days before surgery, Disp: 5 mL, Rfl: 1 Vitals BP 161/82 Pulse 72 Temp 36.4 ??C (97.6 ??F) Ht 158.1 cm (5' 2.24 ) Wt 59.4 kg (130 lb 14.4 oz) BMI 23.75 kg/m?? PHYSICAL EXAM Generally: no acute distress; [...] with positive bruit and thrill LABORATORY VALUES Recent Results (from the past 504 hour(s)) Renal function panel Collection Time: 06/02/18 12:00 AM Result Value Ref Range SCRIBED Calcium 9.9 8.4 - 10.2 mg/dl SCRIBED Phosphorus 2.9 2.5 - 4.5 mg/dl SCRIBED Albumin 4.1 3.5 - 5.1 g/dl SCRIBED Glucose 92 65 - 105 mg/dl SCRIBED Creatinine 0.80 0.7 - 1.0 mg/dl SCRIBED Sodium 138 137 - 145 mmol/L SCRIBED Potassium 4.1 3.4 - 5.0 mmol/L SCRIBED Chloride 105 98 - 107 mmol/L SCRIBED Carbon Dioxide 27 22 - 30 mmol/L SCRIBED eGFR in NonAfrican Ethiopian >60 - - - SCRIBED Urea Nitrogen (BUN) 23 (A) 7 - 17 mg/dl Tacrolimus level trough Collection Time: 06/02/18 12:00 AM Result Value Ref Range SCRIBED Tacrolimus, Trough 5.8 5.0 - 20.0 POCT urinalysis dipstick Collection Time: 06/09/18 9:09 AM Result Value Ref Range Glucose, ur, POC Negative Negative mg/dL Bilirubin, ur, POC Negative Negative Ketones, ur, POC Negative Negative Specific Quincy, POC 1.025 1.005 - 1.030 Blood, ur, POC Non-hemolyzed, trace (A) Negative pH, ur, POC 6.0 5.0 - 8.0 Protein, ur, POC Negative Negative Urobilinogen, urine, POC 0.2 0.2 - 1.0 mg/dL Nitrite, ur, POC Positive (A) Negative Leukocytes, ur, POC 3+ (A) Negative Lot Number [id number] Urine dipstick shows nitrates and 3+ leukocytes. ASSESSMENT & PLAN: 1. 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 The patient's serum creatinine remains lateral and stable. Urinalysis in the office today did show 3+ leukocytes and nitrates. Will send urine culture. Of note patient has seen a urologist and ID physician in past d/t re-current UTIs (per patient in OR while she was receiving her transplant there was trauma to her bladder). Per her ID physician, she has a chronic irritation rather than infections. Will f/u with urine culture 2. High risk medication/Immunosuppression: The patient is currently on dual immunosuppression therapy and last tacrolimus trough level was not available. She will continue her tacrolimus and prednisone as prescribed. She is to remain off Myfortic due to a history of leukopenia. 3. Infectious disease prophylaxis: The patient is also on acyclovir 200 mg b.i.d. due to a history of shingles. 4. Hypertension: Patient continues to be hyperetensive with SBP 150s. D/T her heart rate of 62, I cannot increase her BID Metop. Will increase her Lisinopril to 20 Mg/day. Patient also found to have a murmur on exam. Per patient this is chronic and has had it since she was a child. Will repeat Echo(last documented 2012) 5. Health maintenance: Patient does have a few bruises along with a wound on her RLE. Patient reports she had a similar wound on her left agosto prior. She follow with the wound center in [place].She was advised to go see them for this wound as well, and to show it do Dr Lima when she has her fistula inspected to make sure this is not related to poor circulation. 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 She was advised to find a new one. DISPOSITION: Return to clinic in 1 year. Cosigned by Layla Malloy MD at 06/11/2018 5:03 PM VETERINARY PHARMACOLOGIST RINARY PHARMACOLOGIST RINARY PHARMACOLOGIST Associated attestation - Layla Malloy MD - 06/11/2018 5:03 PM VETERINARY PHARMACOLOGIST I have seen and examined the patient. I agree with the findings and plan of care of Hillary Frazier NP. documented in this encounter Plan of Treatment Not on file documented as of this encounter Procedures Procedure Name Priority Date/Time Associated Diagnosis Comments POCT URINALYSIS DIPSTICK Routine 06/09/2018 9:09 AM VETERINARY PHARMACOLOGIST Encounter for aftercare following kidney transplant documented in this encounter Results * (ABNORMAL) POCT urinalysis dipstick (06/09/2018 9:09 AM VETERINARY PHARMACOLOGIST) Glucose, ur, POC Negative Negative mg/dL Bilirubin, ur, POC Negative Negative Ketones, ur, POC Negative Negative Specific Quincy, POC 1.025 1.005 - 1.030 Blood, ur, POC Non-hemolyze d, trace(A) Negative pH, ur, POC 6.0 5.0 - 8.0 Protein, ur, POC Negative Negative Urobilinogen, urine, POC 0.2 0.2 - 1.0 mg/dL Nitrite, ur, POC Positive(A) Negative Leukocytes, ur, POC 3+(A) Negative Lot Number [id number] Urine 06/09/2018 9:09 AM VETERINARY PHARMACOLOGIST us Jessie Man MD POINT OF CARE TEST ORDERABLES F inal Result documented in this encounter Visit Diagnoses Diagnosis Hypertension, unspecified type- Primary Encounter for aftercare following kidney transplant Abnormal finding in urine documented in this encounter Care Teams Garment Manufacturing Supervisor Relationship Specialty Start Date End Date Burke Rosenberg DO [address] [facility] [address] [place] [address] PCP - General 10/09/16 02/19/20 Luther Bone RN [address] [facility] [address] [place] [address] Cutter Operator Tile 12/01/17 9 Gregg Peace RN [address] [facility] [address] [place] [address] Cutter Operator Tile 12/08/17 documented as of this encounter
--- OUTSIDE RECORDS SUMMARY | 2024-06-27 01:57 | XMS_ITS | Encounter Summary ---
Author Organization [facility] Address [address] [place] [address] Phone Care Team Providers Care Straight Knife Cutter Machine Name Role Phone Burke Rosenberg DO Primary Care Provider Luther Bone RN Unavailable [phone] Gregg Peace RN Unavailable Reason for Visit * Reason Onset Date Comments Dr. Mcgregor surg sched 02/26/2018 Encounter Details Date Type Department Care Team (Late st Contact Info) Description 02/26/2018 Telephone [facility] Ophthalmology [address] [place] [address] Butch Maria MD [address] [facility] [address] [place] [address] Dr. Mcgregor surg sched Social History Tobacco Use Types Packs/Day Years Used Date Smoking Tobacco: Never Alcohol Use Standard Drinks/Week Comments No 0 (1 standard drink = 0.6 oz pur e alcohol) Comments Unknown Sex and Gender Information Value Date Recorded Sex Assigned at Not on file Legal Sex Female 1:13 PM YARD CLEANER Gender Identity Not on file Sexual Orientation Not on file documented as of this encounter Miscellaneous Notes * Telephone Encounter - Jim Niño COA - 02/26/2018 12:52 PM CDT Alvina, Please see task. Jim Templeton * Telephone Encounter - Terrellarvind Disha - 02/26/2018 11:20 AM CDT Patient called in requesting to be put on the schedule for surgery. Patient would like to be scheduled in April if possible. Please call patient at [phone] documented in this encounter Plan of Treatment Not on file documented as of this encounter Visit Diagnoses Not on filedocumented in this encounter Care Teams Straight Knife Cutter Machine Relationship Specialty Start Date End Date Burke Rosenberg DO [address] [facility] [address] [place] [address] PCP - General 10/09/16 02/19/20 Luther Bone RN [address] [facility] [address] [place] [address] Loom Repairer 12/01/17 9 Gregg Peace RN [address] [facility] [address] [place] [address] Loom Repairer 12/08/17 documented as of this encounter
--- OUTSIDE RECORDS SUMMARY | 2024-06-27 01:57 | XMS_ITS | Encounter Summary ---
Author Organization [facility] Address [address] [place] [address] Care Team Providers Care Hand Leather Trimmer Name Role Phone Burke Rosenberg DO Primary Care Provider [phone] Luther Bone RN Unavailable [phone] Gregg Peace RN Unavailable [phone] Encounter Details Date Type Department Care Team (Late st Contact Info) Description 04/27/2018 Lab [facility] Transplant Kidney [address] [facility] [address] 18-04-325 [place], [place] [id number] Luther Bone, RN [address] [address] Social History Tobacco Use Types Packs/Day Years Used Date Smoking Tobacco: Never Smokeless Tobacco: Never Alcohol Use Standard Drinks/Week Comments No 0 (1 standard drink = 0.6 oz pur e alcohol) Comments Unknown Sex and Gender Information Value Date Recorded Sex Assigned at Not on file Legal Sex Female 1:13 PM CAR SCRUBBER Gender Identity Not on file Sexual Orientation Not on file documented as of this encounter Progress Notes * Luther Bone, RN - 04/27/2018 12:38 PM CDT Please call for the FKL from January and the CBC from February and March. documented in this encounter Plan of Treatment Not on file documented as of this encounter Visit Diagnoses Not on filedocumented in this encounter Care Teams Hand Leather Trimmer Relationship Specialty Start Date End Date Burke Rosenberg DO [address] [facility] [address] [place] [address] PCP - General 10/09/16 02/19/20 Luther Bone, DEREK [address] [facility] [address] [place], [place] [id number] Motor And Generator Brush Cutter 12/01/17 9 Gregg Peace RN [address] [facility] [address] [place] [address] Motor And Generator Brush Cutter 12/08/17 documented as of this encounter
--- OUTSIDE RECORDS SUMMARY | 2024-06-27 01:57 | XMS_ITS | Encounter Summary ---
Author Organization [facility] Address [address] [place] [address] Phone Care Team Providers Care Sewing Machine Repairer Name Role Phone Burke Rosenberg DO Primary Care Provider Luther Bone RN Unavailable [phone] Gregg Peace RN Unavailable [phone] Reason for Referral * (Routine) - Closed Specialty Diagnoses / Procedures Referred By Jairo meyer Referred To Contact Diagnoses 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 cataract of right eye Procedures IOL Biometry - OD - Right Eye Butch Maria MD Phone: tel: fax: [facility] (All Locations) Referral ID Status Reason Start Date Expiration Date Visits Re quested Visits Authorized [id number] Closed 05/29/2018 12/08/2019 1 1 ING BALL GRADER Encounter Details Date Type Department Care Team (Late st Contact Info) Description 06/03/2018 1:15 PM BOWLING BALL GRADER Office Visit [facility] Ophthalmology [address] [place] [address] Butch Maria MD [address] [facility] [address] [place] [address] Pseudophakia of left eye (Primary Dx); 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 cataract of right eye Social History Tobacco Use Types Packs/Day Years Used Date Smoking Tobacco: Never Smokeless Tobacco: Never Alcohol Use Standard Drinks/Week Comments No 0 (1 standard drink = 0.6 oz pur e alcohol) Comments No Sex and Gender Information Value Date Recorded Sex Assigned at Not on file Legal Sex Female 1:13 PM BOWLING BALL GRADER Gender Identity Not on file Sexual Orientation Not on file documented as of this encounter Progress Notes * Butch Maria MD - 06/03/2018 1:15 PM CST Imp: Stable 4 weeks status post (s/p) phaco intraocular lens (IOL) OS Persistent symptoms from dense nuclear cataract OD P: No further drops needed left eye (OS) Scheduled for phaco/IOL right eye (OD) on 07/14/18 Consent signed Pre-op Lenstar reevaluated for intraocular lens (IOL) power OD ING BALL GRADER documented in this encounter Plan of Treatment Not on file documented as of this encounter Procedures Procedure Name Priority Date/Time Associated Diagnosis Comments IOL BIOMETRY - OD - RIGHT EYE Routine 06/03/2018 1:50 PM BOWLING BALL GRADER 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 cataract of right eye documented in this encounter Results * IOL Biometry - OD - Right Eye (06/03/2018 1:50 PM BOWLING BALL GRADER) Anatomical Region Laterality Modality Head Other Narrative 06/03/2018 1:50 PM BOWLING BALL GRADER Lens style: [id number]. Lens power: +28.5 D. Target refraction: 0. us Butch Maria MD OPHTH ULTRASOUND Final Resu lt documented in this encounter Visit Diagnoses Diagnosis Pseudophakia of left eye- Primary Lens replaced by other means 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 cataract of right eye documented in this encounter Eye Exam Visual Acuity (Snellen - Linear) Right eye Left eye Dist sc 20/40 -2 Dist ph sc 20/25 Tonometry (Applanation, 1:32 PM) Right eye Left eye Pressure 15 Slit Lamp Exam Right eye Left eye Lids/Lashes Normal Conjunctiva/Sclera White and lisandro et Cornea Clear Anterior Chamber Deep and quiet Iris Round and reacti ve Lens Posterior chambe r intraocular lens, no Posterior capsular opacification Manifest Refraction Sphere Cylinder [place] Right eye Left eye -0.50 +0.25 147 20/25-2 Care Teams Sewing Machine Repairer Relationship Specialty Start Date End Date Burke Rosenberg DO [address] [facility] [address] [place] [address] PCP - General 10/09/16 02/19/20 Luther Bone RN 49[address] [facility] [address] [place] [address] Senior Wind Turbine Technician 12/01/17 9 Gregg Peace RN [address]90 [facility] [address] [place] [id number] Senior Wind Turbine Technician 12/08/17 documented as of this encounter
--- OUTSIDE RECORDS SUMMARY | 2024-06-27 01:57 | XMS_ITS | Encounter Summary ---
Author Organization [facility] Address [address] [place] [address] Phone Care Team Providers Care Grain Elevator Agent Name Role Phone Burke Rosenberg DO Primary Care Provider Luther Bone RN Unavailable Gregg Peace RN Unavailable Encounter Details Date Type Department Care Team (Late st Contact Info) Description 05/06/2018 9:30 AM CDT Office Visit [facility] Ophthalmology [address] [facility] 2nd Floor [address] [place] [address] Butch Maria MD [address] [facility] [address] [place] [address] 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 cataract of right eye (Primary Dx); Pseudophakia of left eye Social History Tobacco Use Types Packs/Day Years Used Date Smoking Tobacco: Never Smokeless Tobacco: Never Alcohol Use Standard Drinks/Week Comments No 0 (1 standard drink = 0.6 oz pur e alcohol) Comments No Sex and Gender Information Value Date Recorded Sex Assigned at Not on file Legal Sex Female 1:13 PM AUTOMATIC SPINNING LATHE SETTER Gender Identity Not on file Sexual Orientation Not on file documented as of this encounter Progress Notes * Butch Maria MD - 05/06/2018 9:30 AM CDT Imp: Stable POD #1 S/P phaco/IOL left eye (OS) with significant corneal edema P: Post-op instructions discussed. Start Tobramycin, Ketorolac, and Prednisone 1% OS QID. Return in1 week or prn. Will defer intraocular lens (IOL) recalculation right eye (OD) until the visit afterthat. documented in this encounter Plan of Treatment Not on file documented as of this encounter Visit Diagnoses Diagnosis 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 cataract of right eye- Primary Pseudophakia of left eye Lens replaced by other means documented in this encounter Discontinued Medications Medication Sig Discontinue Reason Start Date End Da te moxifloxacin (VIGAMOX) 0.5 % ophthalmic solution Instill 1 drop into surgical eye three times daily starting two days before surgery 04/29/2018 05/06/2018 documented as of this encounter Eye Exam Visual Acuity (Snellen - Linear) Right eye Left eye Dist sc 20/300 Dist ph sc NI Tonometry (Applanation, 9:40 AM) Right eye Left eye Pressure 20 Neuro/Psych Oriented x3: Yes Mood/Affect: Normal Slit Lamp Exam Right eye Left eye Lids/Lashes Normal Conjunctiva/Sclera 1+ Injection Cornea 4+ stromal edema Anterior Chamber Deep, 1+ Cell, 1+ Flare Iris Round and reacti ve Lens Posterior chambe r intraocular lens, no Posterior capsular opacification Care Teams Grain Elevator Agent Relationship Specialty Start Date End Date Burke Rosenberg DO [address] [facility] [address] [place] [address] PCP - General 10/09/16 02/19/20 Luther Bone RN [address] [facility] [address] [place] [address] Plate Grinder 12/01/17 9 Gregg Peace RN [address] [facility] [address] [place] [address] Plate Grinder 12/08/17 documented as of this encounter
--- OUTSIDE RECORDS SUMMARY | 2024-06-27 01:57 | XMS_ITS | Encounter Summary ---
Author Organization [facility] Healthcare Address [address] [place] [address] Care Team Providers Care Apparatus Engineering Technologist Name Role Phone Burke Rosenberg DO Primary Care Provider [phone] Encounter Details Date Type Department Care Team (Latest Contact Info) Description 08/31/2017 4:37 PM STOCK RAISER - 08/31/2017 11:59 PM [facility] Hospital Encounter [facility] OP INTERIM [phone] Tami Herrera MD [address] [place] [address] Discharge Disposition: Discharge to home or self care Social History Tobacco Use Types Packs/Day Years Used Date Smoking Tobacco: Never Alcohol Use Standard Drinks/Week Comments No 0 (1 standard drink = 0.6 oz pur e alcohol) Comments Unknown Sex and Gender Information Value Date Recorded Sex Assigned at Not on file Legal Sex Female 1:13 PM STOCK RAISER Gender Identity Not on file Sexual Orientation Not on file documented as of this encounter Medications at Time of Discharge acyclovir (ZOVIRAX) 200 mg capsule Take 200 mg by mouth 2 (two) times a day. 11/04/2013 02/09/2018 cephalexin (KEFLEX) 500 mg capsule Take 500 mg by mouth daily. 04/27/2017 04/06/2018 cholecalciferol (VITAMIN D-3) 2,000 unit tablet Take 1 tablet by mouth daily. 02/12/2015 02/18/2018 levothyroxine (SYNTHROID, LEVOTHROID) 100 mcg tablet Take 100 mcg by mouth patrol judge before breakfast. 04/14/2014 06/14/2018 lisinopril (PRINIVIL,ZESTRIL ) 10 mg tablet Take 10 mg by mouth daily. 05/04/2014 12/18/2017 metoprolol (LOPRESSOR) 25 mg tablet Take 25 mg by mouth 2 times daily. 11/13/2016 10/15/2018 metoprolol (LOPRESSOR) 50 mg tablet Take 50 mg by mouth 2 times daily. 02/11/2013 12/25/2017 pravastatin (PRAVACHOL) 20 mg tablet Take 1 tablet (20 mg total) by mouth nightly 12/16/2016 07/16/2023 predniSONE (DELTASONE) 5 mg tablet Take 5 mg by mouth patrol judge before breakfast. 02/10/2013 05/21/2018 sodium bicarbonate 650 mg tablet Take 1 tablet by mouth nightly. 03/10/2013 09/30/2018 tacrolimus (PROGRAF) 1 mg capsule Take 2 mg by mouth 2 (two) times a day. 03/02/2013 09/29/2018 documented as of this encounter Discharge Disposition Disposition Code Departure Means Destination Discharge to home or self care documented in this encounter Plan of Treatment Not on file documented as of this encounter Procedures Procedure Name Priority Date/Time Associated Diagnosis Comments DISCHARGE LABORATORY CUMULATIVE REPORT 09/01/2017 12:00 AM STOCK RAISER URINALYSIS Routine Gen Lab 08/31/2017 4:40 PM STOCK RAISER URINALYSIS, MICROSCOPIC ONLY Routine Gen Lab 08/31/2017 4:40 PM STOCK RAISER URINE CULTURE Routine Gen Lab 08/31/2017 4:40 PM STOCK RAISER documented in this encounter Results * DISCHARGE LABORATORY CUMULATIVE REPORT (09/01/2017 12:00 AM STOCK RAISER) Narrative 09/01/2017 12:00 AM STOCK RAISER Ordered by an unspecified provider. us Historical Provider LAB BLOOD ORDERABLES Paty l Result * Urine culture (08/31/2017 4:40 PM STOCK RAISER) Report Final Report: Insignificant growth based on current clinical standards. [facility] Urine 08/31/2017 4:40 PM STOCK RAISER 08/31/2017 7:56 PM STOCK RAISER Narrative STEVE [facility] - 09/02/2017 7:33 AM STOCK RAISER Received in transport media. Tami Herrera MD LAB MICROBIOLOGY - GENERAL ORDER TRACE Final Result Performing Organization Address [facility] de Phone Number [facility] Department [place] [address] * Urinalysis, microscopic only (08/31/2017 4:40 PM STOCK RAISER) Pathologist [facility] RBC, ur 2 0 - 3 /HPF [facility] WBC, ur 4 0 - 5 /HPF [facility] Bacteria, ur Trace Trace [facility] Epithelial cells, renal, ur 0 0 - 0 /HPF [facility] Epithelial cells, squamous, ur 7 /LPF [facility] Mucus, ur Small /HPF [facility] Urine 08/31/2017 4:40 PM STOCK RAISER 08/31/2017 5:58 PM STOCK RAISER Narrative STEVE [facility] - 08/31/2017 6:30 PM STOCK RAISER Tami Herrera MD LAB URINE ORDERABLES Final Resul t Performing Organization Address [facility] de Phone Number [facility] Department [place] [address] * (ABNORMAL) Urinalysis (08/31/2017 4:40 PM STOCK RAISER) Color, ur Yellow Yellow [facility] Clarity, ur Clear Clear [facility] Specific gravity, ur 1.026 1.003 - 1.030 [facility] pH, ur 6.0 5.0 - 8.0 [facility] Albumin, ur Negative Trace [facility] Glucose, ur ql Negative Negative [facility] Ketones, ur Negative Negative [facility] Bilirubin, ur Negative Negative [facility] Blood, ur Negative Negative [facility] Urobilinogen, ur <2.0 <2.0 mg/dL [facility] Nitrites, ur Negative Negative [facility] Leukocyte esterase, ur 1+(A) Negative [facility] Urine 08/31/2017 4:40 PM STOCK RAISER 08/31/2017 5:58 PM STOCK RAISER Narrative CERN[facility] - 08/31/2017 6:20 PM STOCK RAISER us Tami Herrera MD LAB URINE ORDERABLES Final Resul t [facility] Department [place] [address] documented in this encounter Visit Diagnoses Not on filedocumented in this encounter Care Teams Apparatus Engineering Technologist Relationship Specialty Start Date End Date Burke Rosenberg DO [address] [address] PCP - General 10/09/16 02/19/20 documented as of this encounter
--- OUTSIDE RECORDS SUMMARY | 2024-06-27 01:57 | XMS_ITS | Encounter Summary ---
Author Organization [facility] Healthcare Address [address] [place] [address] Care Team Providers Care Guard Entrance Registrar Name Role Phone SachintigreBurke diop DO Primary Care Provider [phone] Encounter Details Date Type Department Care Team (Latest Contact Info) Description 01/13/2017 2:49 PM CDT - 01/13/2017 11:59 PM T Hospital Encounter [facility] OP INTERIM [phone] Angel Wilson NP [address] [place] [address] Discharge Disposition: Discharge to home or self care Social History Tobacco Use Types Packs/Day Years Used Date Smoking Tobacco: Never Assessed Alcohol Use Standard Drinks/Week Comments No 0 (1 standard drink = 0.6 oz pur e alcohol) Comments Unknown Sex and Gender Information Value Date Recorded Sex Assigned at Not on file Legal Sex Female 1:13 PM LAND EXAMINER Gender Identity Not on file Sexual Orientation Not on file documented as of this encounter Medications at Time of Discharge acyclovir (ZOVIRAX) 200 mg capsule Take 200 mg by mouth 2 (two) times a day. 11/04/2013 02/09/2018 cholecalciferol (VITAMIN D-3) 2,000 unit tablet Take 1 tablet by mouth daily. 02/12/2015 02/18/2018 levothyroxine (SYNTHROID, LEVOTHROID) 100 mcg tablet Take 100 mcg by mouth assembler semiconductor before breakfast. 04/14/2014 06/14/2018 lisinopril (PRINIVIL,ZESTRIL ) [...] mg tablet Take 5 mg by mouth assembler semiconductor before breakfast. 02/10/2013 05/21/2018 sodium bicarbonate 650 [...] Procedure Name Priority Date/Time Associated Diagnosis Comments URINE CULTURE Routine Gen Lab 01/13/2017 2:29 PM CDT DISCHARGE LABORATORY CUMULATIVE REPORT 01/13/2017 12:00 AM CDT documented in this encounter Results * Urine culture (01/13/2017 2:29 PM CDT) Report Final Report: Greater than or equal to 100,000 colonies/ml of Klebsiella pneumoniae [facility] Organism KLEBSIELLA PNEUMONIAE [facility] Urine 01/13/2017 2:29 PM CDT 01/13/2017 6:48 PM CDT Narrative STEVE [facility] - 01/14/2017 12:41 PM CDT Organism Antibiotic Method Susceptibility Klebsiella pneumoniae Ampicillin INTERPRETATION Resistant Klebsiella pneumoniae Cefazolin INTERPRETATION Susceptible Klebsiella pneumoniae Nitrofurantoin INTERPRETATION Intermediate Klebsiella pneumoniae Gentamicin INTERPRETATION Susceptible Klebsiella pneumoniae Trimethoprim with Sulfamethoxazole INTERPRETATION Susceptible Klebsiella pneumoniae Meropenem INTERPRETATION Susceptible Klebsiella pneumoniae Cefepime INTERPRETATION Susceptible Klebsiella pneumoniae Ciprofloxacin INTERPRETATION Susceptible Klebsiella pneumoniae Ceftazidime INTERPRETATION Susceptible Klebsiella pneumoniae Ceftriaxone INTERPRETATION Susceptible Klebsiella pneumoniae Piperacillin/Tazobactam INTERPRE TATION Susceptible Klebsiella pneumoniae Cephalexin INTERPRETATION Susceptible Klebsiella pneumoniae Cefuroxime-axetil INTERPRETATION Susceptible Klebsiella pneumoniae Cefdinir INTERPRETATION Susceptible Angel Wilson ELECTRONIC EQUIPMENT TRADES WORKER LAB MICROBIOLOGY - GENE RAL ORDERABLES Final Result [facility] Department [place] [address] * DISCHARGE LABORATORY CUMULATIVE REPORT (01/13/2017 12:00 AM CDT) Narrative 01/13/2017 12:00 AM CDT Ordered by an unspecified provider. Historical Provider LAB BLOOD ORDERABLES Apty l Result documented in this encounter Visit Diagnoses Not on filedocumented in this encounter Care Teams Guard Entrance Registrar Relationship Specialty Start Date End Date Burke Rosenberg DO [address] [address] PCP - General 10/09/16 02/19/20 documented as of this encounter
--- OUTSIDE RECORDS SUMMARY | 2024-06-27 01:57 | XMS_ITS | Encounter Summary ---
Author Organization [facility] Healthcare Address [address] [place] [address] Care Team Providers Care Aquatic Habitat Biologist Name Role Phone Burke Rosenberg DO Primary Care Provider Luther Bone RN Unavailable Gregg Peace RN Unavailable Encounter Details Date Type Department Care Team (Late st Contact Info) Description 05/05/2018 9:51 AM CDT Anesthesia Event [facility] Surgery at [facility] [address] [place] [address] Amisha Cordon MD [address] [place] [address] Adeline Carlson NP [address] [facility] [phone] [place] [address] Anesthesia Record Procedure Summary Procedure Name Responsible Anesthesiologist Anesthesia Start Time Anesthesia Stop Time EXTRACTION CATARACT - PHACOEMULSIFICATION AND LENS IMPLANT (Left: Eye) Amisha Cordon MD 05/05/18 0951 05/05/18 1023 Events Date Time Event Comment 05/05/2018 0920 0951 An Start 0951 Start Supplemental O2 0951 Quick Note Retrobulbar blo ck done by Dr Wieder 0956 An Start Data 0959 Anesthesia Ready 1000 In Room 1004 Incision Start 1004 Proc Start 1019 an stop data 1019 Proc Fin 1021 Out of Room 1023 An Stop 1023 Handoff to RN I completed my handoff [...] Patient disposition at the time of handoff: No value filed. Meds Name Total lidocaine 1 % PF 50 mg propofol 30 mg * Agents Name O2 N2O Air * Blood No blood administrations on file. Lines, Drains, and Airways Type Details Placement Removal RETIRED Wound Abrasion(s); 4 (Retired LDA, Removed/Completed by SinglePlatform with LDA Utility); 1213 (Retired LDA, Removed/Completed by SinglePlatform with LDA Utility) 04/06/18 1345 by 06/07/24 [...] Shi, DEREK RETIRED Surgical Site 05/05/18; 1000; Le ft; Eye; 01/01/21; 1021 05/05/18 1000 by Gely Balderas RN 01/01/21 1021 by Nato Vargas RN documented in this encounter Social History Tobacco Use Types Packs/Day Years Used Date Smoking Tobacco: Never Smokeless Tobacco: Never Alcohol Use Standard Drinks/Week Comments No 0 (1 standard drink = 0.6 oz pur e alcohol) Comments No Sex and Gender Information Value Date Recorded Sex Assigned at Not on file Legal Sex Female 1:13 PM MULTIMEDIA SERVICES COORDINATOR Gender Identity Not on file Sexual Orientation Not on file documented as of this encounter OR Notes * Anesthesia Postprocedure Evaluation - Amisha Cordon MD - 05/05/2018 10:36 AM CDT Patient: Juliet Dunlap Procedure Summary Date: 05/05/18 Room / Location: [facility] OPERATING ROOM 02 / [facility] Operating Room Anesthesia Start: 950 Anesthesia Stop: 1022 Procedure: EXTRACTION CATARACT - PHACOEMULSIFICATION AND LENS IMPLANT (Left Eye) Diagnosis: 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 cataract of both eyes (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 cataract of both eyes [H25.13]) Provider: Butch Maria MD Responsible Provider: Amisha Cordon MD Anesthesia Type: MAC ASA Status: 3 Anesthesia Type: MAC Last vitals BP (!) 182/81 Pulse 72 Temp 37 ??C (98.6 ??F) (Temporal) Resp 18 SpO2 99% Anesthesia Post Evaluation Patient location during evaluation: PACU Patient participation: complete - patient participated Level of consciousness: fully awake Pain score: 0 Pain management: adequate Airway patency: adequate Anesthetic complications: no Cardiovascular status: acceptable Respiratory status: acceptable and room air Hydration status: acceptable Pt is: normothermic Nausea/Vomiting status: none * Anesthesia Preprocedure Evaluation - Amisha Cordon MD - 04/07/2018 3:25 PM CDT [facility] Preoperative Evaluation Record Telephone Preoperative Evaluation (CAM-SC) - TELEPHONE ONLY, NO PHYSICAL EXAM Date: 04/07/18 Anesthesia Evaluation Procedure(s): EXTRACTION CATARACT - PHACOEMULSIFICATION AND LENS IMPLANT HISTORY HPI Juliet Dunlap is a 83 y.o. female who is being evaluated prior [...] lesion per cardiac cath 2008) Pertinent negatives: ME ; CABG ; valvular heart disease; valve [...] treated in 2016, shingles 2008 to the back) - UTI. Pertinent negatives: diabetes mellitus; obesity (BMI >30); cancer history and rheumatological disease Functional Capacity Functional capacity: 4-6 METs Comments: Can climb 2 flights of stairs without CP or SOB Can walk 4 blocks at a brisk pace with CP or SOB Review of Systems + recent cold/flu (URI infection in 02/2018, treated with Z-thalia, symptoms are now resolved) + easy bruising (skin tear to left arm, saw her PCP today, 04/07/2018, who started her on an Augmentin 1 tab BID for 10 days) + vision loss (decreased vision, especially at night and light glare, wears corrective lenses) Pertinent negatives: productive cough; wheezing; SOB; fever; chest pain; palpitations; orthopnea; pedal edema; PND; heavy menses; Sickle Cell disease/trait; previous transfusion; transfusion reaction; melena/hematochezia; bleeding problems; syncope; dizziness; muscle weakness; chronic pain; numbness /tingling; hard of hearing; heartburn; nausea; dysphagia; diarrhea; dentures/partials; chipped/loose teeth; abdominal pain; diaphoresis and no unexpected weight change PAT Summary and Plans Cardiac risk classification of planned procedure: low cardiac risk. Preoperative assessment status: complete. Additional comments: Juliet Dunlap is a 83 y.o. female who is being evaluated prior to undergoing a low cardiac risk surgery. Revised Cardiac Risk Index factors are (ischemic heart disease) for a total RCRI of 1 out of 6. Functional capacity is 4-6 METs. Obstructive sleep apnea (DANGELO) screening status is pending neck circumference. Blood bank needs for day of procedure: No type and screen needed Pending labs/tests include: none Telephone assessment has been performed and DOS physical exam will need to be performed by anesthesia provider. Reviewed instructions prior to surgery with patient and sent written instructions via [employer] mail. Patient verbalizes understanding. Patient is s/p kidney transplant 02/2013, last nephrology office visit 05/14/2017 with next visit in one year. Patient states she is able to lay [...] soon as possible in the postoperative period. Left voicemail message with Alvina in surgeon's office. Please call the CPAP attending ([phone]) with any questions or to discuss alternative management plans. Patient currently with redness to her left arm, saw her PCP today who gave her a prescription for Augmentin 1 tab BIB x10 days, instructed patient to contact her surgeon's office if symptoms worsen or do not resolve by surgery date, patient verbalized understanding. Called and left voicemail message with Alvina in surgeon's office. TPAP assessment complete. Preoperative evaluation performed by Adeline Carlson NP on 04/07/18 at 3:33 PM.. Patient Active Problem List Diagnosis ??? Vasculitis (CMS/HCC) ??? History of kidney transplant ??? 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 cataract of both eyes Past Medical History: Diagnosis Date ??? Abdominal pain ??? Bruising ??? CAD (coronary artery disease) ??? Cataract ??? Chest pain ??? Fatigue ??? Frequent urination ??? GERD (gastroesophageal reflux disease) ??? Hearing loss ??? Hepatitis B ??? Hiatal hernia schatzki ring ??? Hyperlipidemia ??? Hypertension ??? Hypothyroidism ??? Migraines ??? Pain with urination ??? Peritoneal dialysis status ([facility]) From 2009 to 2012 prior to transplant ??? Postoperative delirium 02/2013 hallucinations s/p kidney transplant, saw flashes of color and puffs of smoke ??? Renal failure received 1 episode chemo to try to save Kidney in 2008 ??? Shingles ??? UTI (urinary tract infection) 01/2014 E.coli Past Surgical History: Procedure Laterality Date ??? AV FISTULA PLACEMENT Left with declotting ??? CARDIAC CATHETERIZATION 10/2008 ? ? CENTRAL LINE PLACEMENT > 5 YEARS N/A 02/16/2013 ??? CYSTOSCOPY 08/2013 with placement of TVT-O midurethral ring ??? HERNIA REPAIR 09/2008 with Schatzki's ring ??? KIDNEY TRANSPLANT 02/2013 ??? PARATHYROIDECTOMY 1994 ??? RHINOPLASTY ??? TONSILLECTOMY 1944 ??? VEIN LIGATION AND STRIPPING 1992 OB History No data available Allergies Allergen Reactions ??? Nitrofurantoin Rash ??? Tetracyclines Rash ??? Tetracycline ? ? Codeine Dizziness and Nausea & Vomiting ??? Keflex [Cephalexin] Other (See comments) Trouble with bladder HOME MEDICATIONS : acyclovir (ZOVIRAX) 200 mg capsule aspirin 81 mg tablet biotin 1 mg tablet cyanocobalamin (Vitamin B-12) 100 mcg tablet denosumab (PROLIA) 60 mg/mL syringe levothyroxine (SYNTHROID, LEVOTHROID) 100 mcg tablet metoprolol (LOPRESSOR) 25 mg tablet pravastatin (PRAVACHOL) 20 mg tablet predniSONE (DELTASONE) 5 mg tablet sodium bicarbonate 650 mg tablet tacrolimus (PROGRAF) 1 mg capsule cholecalciferol (VITAMIN D-3) 2,000 unit tablet lisinopril (PRINIVIL,ZESTRIL) 10 mg tablet metoprolol (LOPRESSOR) 50 mg tablet oxybutynin XL (DITROPAN-XL) 10 mg 24 hr tablet sulfamethoxazole-trimethoprim (BACTRIM,SEPTRA) suspension 200-40 mg/5 mL No current facility-administered medications for this encounter. Current Outpatient Prescriptions: ??? acyclovir (ZOVIRAX) 200 mg capsule ??? aspirin 81 mg tablet ??? biotin 1 mg tablet ??? cyanocobalamin (Vitamin B-12) 100 mcg tablet ??? denosumab (PROLIA) 60 mg/mL syringe ??? levothyroxine (SYNTHROID, LEVOTHROID) 100 mcg tablet ??? metoprolol (LOPRESSOR) 25 mg tablet ??? pravastatin (PRAVACHOL) 20 mg tablet ??? predniSONE (DELTASONE) 5 mg tablet ??? sodium bicarbonate 650 mg tablet ??? tacrolimus (PROGRAF) 1 mg capsule ??? cholecalciferol (VITAMIN D-3) 2,000 unit tablet ??? lisinopril (PRINIVIL,ZESTRIL) 10 mg tablet ??? metoprolol (LOPRESSOR) 50 mg tablet Social History Smoking Status ??? Never Smoker Smokeless Tobacco ??? Never Used Alcohol Use No Drug Use No Family History Problem Relation Age of Onset ??? Cancer Other Family history of Cancer; ??? Kidney disease Other Family history of Renal disease; ??? Stroke Other Family history of Stroke; ??? Pancreatic cancer Mother ??? Heart disease Father PAT Physical Exam There were no vitals filed for this visit. Creatinine: 04/03/2018: 1.00 mg/dl Juan Ramon index score: 95 DOS Physical Exam Medical history, medications, and allergies reviewed. Attestation: This PAT evaluation 04/07/2018. Airway Exam: Mallampati: II Cervical ROM: FROM TM distance: 3 Cardiovascular Exam: Rate: regular Rhythm: regular (PACs) Pulmonary Exam: LCTA, bilat Dental Exam: Appears intact Current state: Patient's current state is interactive and cooperative. Anesthesia Plan ASA 3 My patient is approved for the Anesthesia Controlled Medication protocol when under care of a MANAGER ACCESS Planned anesthesia: MAC Comments: with retrobulbar block by surgeon Postoperative Plan: Patient's planned disposition post procedure is Outpatient. Informed Consent: Discussed plan with MANAGER ACCESS. Anesthesia plan and risks discussed with patient. Consent and Attending signature: I and/or my [...] MAR Action Action Date Dose Rate Site lidocaine PF (XYLOCAINE) 10 mg/mL (1 %) preservative free injection As needed, Starting on Thu05/05/18 at 0951, Anesthesia Intra-op Given 05/05/2018 9:51 AM CDT 50 mg propofol (DIPRIVAN) IV intravenous, As needed, Starting on Thu05/05/18 at 0951, Anesthesia Intra-op Given 05/05/2018 9:51 AM CDT 30 mg documented in this encounter Care Teams Aquatic Habitat Biologist Relationship Specialty Start Date End Date Burke Rosenberg DO [address] [facility] [address] [place] [address] PCP - General 10/09/16 02/19/20 Luther Bone RN [address] [address] Quality Tester 12/01/17 9 Gregg Peace RN [address] [id number] Quality Tester 12/08/17 documented as of this encounter
--- OUTSIDE RECORDS SUMMARY | 2024-06-27 01:57 | XMS_ITS | Encounter Summary ---
Author Organization [facility] Healthcare Address [address] [place] [address] Care Team Providers Care Pasteurizing Supervisor Name Role Phone Burke Rosenberg DO Primary Care Provider [phone] Encounter Details Date Type Department Care Team (Latest Contact Info) Description 10/09/2016 5:50 PM CDT - 10/09/2016 11:59 PM CDT Hospital Encounter [facility] OP INTERIM [phone] Miscellaneous, Not In File Discharge Disposition: Discharge to home or self care Social History Tobacco Use Types Packs/Day Years Used Date Smoking Tobacco: Never Assessed Alcohol Use Standard Drinks/Week Comments No 0 (1 standard drink = 0.6 oz pur e alcohol) Comments Unknown Sex and Gender Information Value Date Recorded Sex Assigned at Not on file Legal Sex Female 1:13 PM COMMITTEE MEMBER Gender Identity Not on file Sexual Orientation Not on file documented as of this encounter Medications at Time of Discharge acyclovir (ZOVIRAX) 200 mg capsule Take 200 mg by mouth 2 (two) times a day. 11/04/2013 02/09/2018 cholecalciferol (VITAMIN D-3) 2,000 unit tablet Take 1 tablet by mouth daily. 02/12/2015 02/18/2018 levothyroxine (SYNTHROID, LEVOTHROID) 100 mcg tablet Take 100 mcg by mouth coremaker pipe before breakfast. 04/14/2014 06/14/2018 lisinopril (PRINIVIL,ZESTRIL ) 10 mg tablet Take 10 mg by mouth daily. 05/04/2014 12/18/2017 metoprolol (LOPRESSOR) 50 mg tablet Take 50 mg by mouth 2 times daily. 02/11/2013 12/25/2017 predniSONE (DELTASONE) 5 mg tablet Take 5 mg by mouth coremaker pipe before breakfast. 02/10/2013 05/21/2018 sodium bicarbonate 650 [...] Diagnosis Comments URINE CULTURE Routine Gen Lab 10/09/2016 4:17 PM CDT documented in this encounter Results * Urine culture (10/09/2016 4:17 PM CDT) Report Final Report: Greater than or equal to 100,000 colonies/ml of Escherichia coli [facility] Organism [facility] Urine, clean voided 10/09/2016 4:17 PM CDT 10/09/2016 6:03 PM CDT Narrative [facility] - 10/10/2016 11:59 AM CDT Organism Antibiotic Method Susceptibility Escherichia coli Ampicillin INTERPRETATION Resistant Escherichia coli Cefazolin INTERPRETATION Susceptible Escherichia coli Nitrofurantoin INTERPRETATION Susceptible Escherichia coli Gentamicin INTERPRETATION Resistant Escherichia coli Trimethoprim with Sulfamethoxazole IN TERPRETATION Resistant Escherichia coli Meropenem INTERPRETATION Susceptible Escherichia coli Cefepime INTERPRETATION Susceptible Escherichia coli Ciprofloxacin INTERPRETATION Resistant Escherichia coli Ceftazidime INTERPRETATION Susceptible Escherichia coli Ceftriaxone INTERPRETATION Susceptible Escherichia coli Piperacillin/Tazobactam INTERPRETATIO N Susceptible Escherichia coli Cephalexin INTERPRETATION Susceptible Escherichia coli Cefuroxime-axetil INTERPRETATION Susceptible Escherichia coli Cefdinir INTERPRETATION Susceptible us Notinfile Unknown LAB MICROBIOLOGY - GENERAL ORD ERABLES Final Result [facility] Department [place] [address] documented in this encounter Visit Diagnoses Not on filedocumented in this encounter Care Teams Pasteurizing Supervisor Relationship Specialty Start Date End Date Burke Rosenberg DO [address] [place] [id number] PCP - General 10/09/16 02/19/20 documented as of this encounter
--- OUTSIDE RECORDS SUMMARY | 2024-06-27 01:57 | XMS_ITS | Encounter Summary ---
Author Organization [facility] Healthcare Address [address] [place] [address] Care Team Providers Care Golf Course Ranger Name Role Phone Burke Rosenberg DO Primary Care Provider Luther Bone RN Unavailable Gregg Peace RN Unavailable [phone] Encounter Details Date Type Department Care Team (Late st Contact Info) Description 03/05/2018 Orders Only 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 [address] [place] [address] PCP - General 10/09/16 02/19/20 Luther Bone, DEREK [address] [facility] [address] [place] [address] Panama Hat Hydraulic Press Operator 12/01/17 9 Gregg Peace RN 4590 [facility] [address] [place], [place] [id number] [place] Hydraulic Press Operator 12/08/17 documented as of this encounter
--- OUTSIDE RECORDS SUMMARY | 2024-06-27 01:57 | XMS_ITS | Encounter Summary ---
Author Organization [facility] Address [address] [place] [address] Care Team Providers Care Varnish Melter Name Role Phone Burke Rosenberg DO Primary Care Provider [phone] Luther Bone RN Unavailable Gregg Peace RN Unavailable [phone] Encounter Details Date Type Department Care Team (Late st Contact Info) Description 04/27/2018 Orders Only [facility] Health Information Management [address] [place] [address] Scanning, Provider Social History Tobacco Use Types Packs/Day Years Used Date Smoking Tobacco: Never Smokeless Tobacco: Never Alcohol Use Standard Drinks/Week Comments No 0 (1 standard drink = 0.6 oz pur e alcohol) Comments Unknown Sex and Gender Information Value Date Recorded Sex Assigned at Not on file 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 Gender Identity Not on file Sexual Orientation Not on file documented as of this encounter Plan of Treatment Not on file documented as of this encounter Procedures Procedure Name Priority Date/Time Associated Diagnosis Comments SCAN - LABS 04/27/2018 1:03 PM CDT SCAN - LABS 04/27/2018 1:03 PM CDT documented in this encounter Results * SCAN - LABS (04/27/2018 1:03 PM CDT) us Provider Scanning Final Result * SCAN - LABS (04/27/2018 1:03 PM CDT) us Provider Scanning Final Result documented in this encounter Visit Diagnoses Not on filedocumented in this encounter Care Teams Varnish Melter Relationship Specialty Start Date End Date Sachintigrejadon Burke AdelinaDO Monico [address] [facility] [address] [place] [address] PCP - General 10/09/16 02/19/20 Luther Bone, DEREK [address] [facility] [address] [place], [place] [id number] Auto Club Safety Program Coordinator 12/01/17 9 Gregg Peace RN [address] [facility] [address] [place], [place] [phone] Auto Club Safety Program Coordinator 12/08/17 documented as of this encounter
--- OUTSIDE RECORDS SUMMARY | 2024-06-27 01:57 | XMS_ITS | Encounter Summary ---
Author Organization [facility] Address [address] [facility] [address] [place] [address] Phone Care Team Providers Care Ur Coordinator Name Role Phone Burke Rosenberg DO Primary Care Provider Luther Boen RN Unavailable [phone] Gregg Peace RN Unavailable [phone] Reason for Referral * Diagnostic Imaging (Routine) - Closed Specialty Diagnoses / Procedures Referred By Jairo meyer Referred To Contact Diagnoses ESRD (end stage renal disease) (CMS/HCC) (HCC) Procedures US Hemodialysis Access Real Cano MD Phone: tel: fax: [facility] (All Locations) Referral ID Status Reason Start Date Expiration Date Visits Re quested Visits Authorized [id number] Closed 04/30/2018 11/09/2019 1 1 Encounter Details Date Type Department Care Team (Late st Contact Info) Description 04/30/2018 Orders Only [facility] Surgery [address] [facility] 8th [place] [address] [place] [id number] Real Cano MD [address] [facility] [id number] [place] [address] ESRD (end stage renal disease) ([facility]) (Primary Dx) Social History Tobacco Use Types Packs/Day Years Used Date Smoking Tobacco: Never Smokeless Tobacco: Never Alcohol Use Standard Drinks/Week Comments No 0 (1 standard drink = 0.6 oz pur e alcohol) Comments Unknown Sex and Gender Information Value Date Recorded Sex Assigned at Not on file Legal Sex Female 1:13 PM PRINT SUPPORT SPECIALIST Gender Identity Not on file Sexual Orientation Not on file documented as of this encounter Plan of Treatment Not on file documented as of this encounter Results * US Hemodialysis Access (06/14/2018 10:18 AM PRINT SUPPORT SPECIALIST) Anatomical Region Laterality Modality Body N/A Ultrasound 06/14/2018 8:51 AM PRINT SUPPORT SPECIALIST Narrative 06/14/2018 8:20 PM PRINT SUPPORT SPECIALIST [facility] - Department of Vascular Surgery, Vascular Laboratory [address] [place] [address] Dialysis Access Fistula/Graft Duplex Report Patient Name: JULIET DUNLAP A : 1935 Study Date: 06/14/2018 8:51:11 AM Gender: F Tech: DB Location: [facility] Ref.Provider: REAL CANO Quality: Adequate Order Provider: [...] ? 0.43 ? cm ?Lt Deep Vein Fourmile ? 227.90 ? cm/s ? Lt Outflow Mid Arm Depth ?1.21 ? cm ?Lt Outflow Vein ? 181.00 ? cm/s ? Lt Outflow Proximal Arm Diameter ?0.73 ? cm ?Lt Axillary Vein ?64.50 ?cm/s ? Lt Outflow Proximal Arm Depth ? 0.43 ? cm ?Lt Subclavian Vein ?69.80 ?cm/s ? Lt Deep Vein Fourmile Diameter ?0.45 ? cm ?Lt Volume Flow Average ?1348.66 ?cc/min ? Lt Deep Vein Fourmile Depth ? 0.86 ? cm ? - Findings: Performing Yard Foreman: Bertha Chicas RVT. [place] Arterial Inflow Normal: No evidence of arterial [...] By: Pedro Vergara MD FACS 2018-06-14 20:20:42 PRINT SUPPORT SPECIALIST CC: CC: Procedure Note Pedro Vergara MD - 06/14/2018 [facility] - Department of Vascular Surgery,Vascular Laboratory [address] [place] [address] Dialysis Access Fistula/Graft Duplex Report Patient Name: JULIET DUNLAP APatient ID: [id number] : [id number] Date: 06/14/2018 8:51:11 AM Gender: FAccession #: [id number] Tech: DBLocation: [facility] Ref.Provider: REAL CANOQuality: Adequate Order Provider: REAL CANO Procedures: Vascular Report: Left Upper Extremity Arterial-Venous Fistula Duplex Exam. Brachial arteryto Cephalic vein. Indications: End stage renal disease. Measurements: Diameter/Depth Velocities Measurement Value Unit MeasurementValue Unit Lt Anastomosis Diameter 0.41 cm Lt Inflow Jzhkto497.30 cm/s Lt Anastomosis Depth 0.41 cm Lt Exxfqgmvbet131.90 cm/s Lt Outflow A/C Diameter 0.61 cm [...] Mid Arm Depth 1.21 cm Lt Outflow Hwtj285.00 cm/s Lt Outflow Proximal Arm Diameter 0.73 cm Lt Axillary Vein64.50 cm/s Lt Outflow Proximal Arm Depth 0.43 cm Lt Subclavian Vein69.80 cm/s Lt Deep Vein Fourmile Diameter 0.45 cm Lt Volume FlowAverage 1348.66 cc/min Lt Deep Vein Fourmile Depth 0.86 cm - Findings: Performing Yard Foreman: Bertha Chicas RVT. [place] Arterial Inflow Normal: No evidence of arterial [...] measurements are performed, an averaged volume flow ox5993.66 cc/min. Conclusions: 1. Patent hemodialysis fistula with [...] performed. Electronically Signed By: Pedro Vergara MD [facility] 2018-06-14 20:20:42 PRINT SUPPORT SPECIALIST CC: CC: us Real Cano MD IM US PROCEDURES Final R esult documented in this encounter Visit Diagnoses Diagnosis ESRD (end stage renal disease) (CMS/HCC) (HCC)- Primary End stage renal disease ESRD (end stage renal disease) (CMS/HCC) ([facility]) End stage renal disease documented in this encounter Care Teams Ur Coordinator Relationship Specialty Start Date End Date Burke Rosenberg DO [address] [facility] [address] [place] [address] PCP - General 10/09/16 02/19/20 Luther Bone RN 5575 [facility] [address] [place] [address] Tester Operator 12/01/17 9 Gregg Peace RN 2490 [facility] [address] [place] [id number] Tester Operator 12/08/17 documented as of this encounter
--- OUTSIDE RECORDS SUMMARY | 2024-06-27 01:57 | XMS_ITS | Encounter Summary ---
Author Organization [facility] Healthcare Address [address] [place] [address] Care Team Providers Care Armor Reconnaissance Specialist Name Role Phone Burke Rosenberg DO Primary Care Provider Luther Bone RN Unavailable [phone] Gregg Peace RN Unavailable [phone] Encounter Details Date Type Department Care Team (Late st Contact Info) Description 04/05/2018 Orders Only [facility] [place] Health Information Management 1 [place] [address] Scanning, Provider Social History Tobacco Use Types Packs/Day Years Used Date Smoking Tobacco: Never Alcohol Use Standard Drinks/Week Comments No 0 (1 standard drink = 0.6 oz pur e alcohol) Comments Unknown Sex and Gender Information Value Date Recorded Sex Assigned at Not on file Legal Sex Female 1:13 PM PRODUCTION LINE Gender Identity Not on file Sexual Orientation Not on file documented as of this encounter Plan of Treatment Not on file documented as of this encounter Procedures Procedure Name Priority Date/Time Associated Diagnosis Comments SCAN - LABS 04/05/2018 8:51 AM CDT documented in this encounter Results * SCAN - LABS (04/05/2018 8:51 AM CDT) us Provider Scanning Final Result documented in this encounter Visit Diagnoses Not on filedocumented in this encounter Care Teams Armor Reconnaissance Specialist Relationship Specialty Start Date End Date Burke Rosenberg DO [address] [facility] [address] [place] [address] PCP - General 10/09/16 02/19/20 Luther Bone, DEREK 5551 [facility] [address] [place] [address] Manufacturing Test Engineer 12/01/17 9 Gregg Peace RN 4590 [facility] [address] [place], [place] [phone] Manufacturing Test Engineer 12/08/17 documented as of this encounter
--- OUTSIDE RECORDS SUMMARY | 2024-06-27 01:57 | XMS_ITS | Encounter Summary ---
Author Organization [facility] Healthcare Address [address] [place] [address] Care Team Providers Care Ep Technologist Name Role Phone Burke Rosenberg DO Primary Care Provider Luther Bone RN Unavailable Gregg Peace RN Unavailable Encounter Details Date Type Department Care Team (Late st Contact Info) Description 03/02/2018 Orders Only [facility] Health Information Management 1 [place] [address] Scanning, Provider Social History Tobacco Use Types Packs/Day Years Used Date Smoking Tobacco: Never Alcohol Use Standard Drinks/Week Comments No 0 (1 standard drink = 0.6 oz pur e alcohol) Comments Unknown Sex and Gender Information Value Date Recorded Sex Assigned at Not on file Legal Sex Female 1:13 PM TRANSMISSION MAINTENANCE SUPERVISOR Gender Identity Not on file Sexual Orientation Not on file documented as of this encounter Plan of Treatment Not on file documented as of this encounter Procedures Procedure Name Priority Date/Time Associated Diagnosis Comments SCAN - LABS 03/02/2018 2:28 PM CDT documented in this encounter Results * SCAN - LABS (03/02/2018 2:28 PM CDT) us Provider Scanning Final Result documented in this encounter Visit Diagnoses Not on filedocumented in this encounter Care Teams Ep Technologist Relationship Specialty Start Date End Date Burke Rosenberg DO 637 [facility] [address] [place] [address] PCP - General 10/09/16 02/19/20 Luther Bone, DEREK [address] [facility] [address] [place] [address] Capacitor Tester 12/01/17 9 Gregg Peace RN 4590 [facility] [address] [place], [place] [id number] Capacitor Tester 12/08/17 documented as of this encounter
--- OUTSIDE RECORDS SUMMARY | 2024-06-27 01:57 | XMS_ITS | Encounter Summary ---
Author Organization [facility] Healthcare Address [address] [place] [address] Care Team Providers Care Colorist Dyer Name Role Phone Burke Rosenberg DO Primary Care Provider [phone] Luther Bone RN Unavailable Gregg Peace RN Unavailable Encounter Details Date Type Department Care Team (Late st Contact Info) Description 01/27/2018 Orders Only [facility] [place] Health Information Management [address] [place] [address] Scanning, Provider Social History Tobacco Use Types Packs/Day Years Used Date Smoking Tobacco: Never Alcohol Use Standard Drinks/Week Comments No 0 (1 standard drink = 0.6 oz pur e alcohol) Comments Unknown Sex and Gender Information Value Date Recorded Sex Assigned at Not on file Legal Sex Female 1:13 PM SHANK TAPPER Gender Identity Not on file Sexual Orientation Not on file documented as of this encounter Plan of Treatment Not on file documented as of this encounter Procedures Procedure Name Priority Date/Time Associated Diagnosis Comments SCAN - LABS 01/27/2018 4:21 PM CDT documented in this encounter Results * SCAN - LABS (01/27/2018 4:21 PM CDT) us Provider Scanning Final Result documented in this encounter Visit Diagnoses Not on filedocumented in this encounter Care Teams Colorist Dyer Relationship Specialty Start Date End Date Burke Rosenberg DO 637 [facility] [address] [place] [address] PCP - General 10/09/16 02/19/20 Luther Bone, DEREK 0731 [facility] [address] [place] [address] Smoking Pipe Repairer 12/01/17 9 Gregg Peace RN 4590 [facility] [address] [place], [place] [id number] Smoking Pipe Repairer 12/08/17 documented as of this encounter
--- OUTSIDE RECORDS SUMMARY | 2024-06-27 01:57 | XMS_ITS | Encounter Summary ---
Author Organization [facility] Care Team Providers Care Mailing Clerk Name Role Phone Burke Rosenberg DO Primary Care Provider [phone] Encounter Details Date Type Department Care Team (Late st Contact Info) Description 03/03/2013 9:46 AM CDT - 07/05/2013 11:59 PM SILK CONDITIONER [facility] [address] [place] [id number] Dehydration; Acidosis; Status post kidney transplant Social History Tobacco Use Types Packs/Day Years Used Date Smoking Tobacco: Never Assessed Alcohol Use Standard Drinks/Week Comments No 0 (1 standard drink = 0.6 oz pur e alcohol) Comments Unknown Sex and Gender Information Value Date Recorded Sex Assigned at Not on file Legal Sex Female 1:13 PM SILK CONDITIONER Gender Identity Not on file Sexual Orientation Not on file documented as of this encounter Medications at Time of Discharge metoprolol (LOPRESSOR) 50 mg tablet Take 50 mg by mouth 2 times daily. 02/11/2013 12/25/2017 predniSONE (DELTASONE) 5 mg tablet Take 5 mg by mouth review consultant before breakfast. 02/10/2013 05/21/2018 sodium bicarbonate 650 mg tablet Take 1 tablet by mouth nightly. 03/10/2013 09/30/2018 tacrolimus (PROGRAF) 1 mg capsule Take 2 mg by mouth 2 (two) times a day. 03/02/2013 09/29/2018 documented as of this encounter Plan of Treatment Not on file documented as of this encounter Visit Diagnoses Diagnosis Dehydration Acidosis Status post kidney transplant documented in this encounter Care Teams Mailing Clerk Relationship Specialty Start Date End Date Burke Rosenberg DO [address] [facility] [address] [place] [address] PCP - General 09/27/10 02/19/14 documented as of this encounter
--- OUTSIDE RECORDS SUMMARY | 2024-06-27 01:57 | XMS_ITS | Encounter Summary ---
Author Organization [facility] Address [address] [place] [address] Phone Care Team Providers Care Pan Devulcanizer Name Role Phone Burke Rosenberg DO Primary Care Provider Luther Bone RN Unavailable Gregg Peace RN Unavailable [phone] Encounter Details Date Type Department Care Team (Late st Contact Info) Description 04/30/2018 Telephone [facility] Surgery [facility] [place] [address] Magdalena Narayanan, [facility] Social History Tobacco Use Types Packs/Day Years Used Date Smoking Tobacco: Never Smokeless Tobacco: Never Alcohol Use Standard Drinks/Week Comments No 0 (1 standard drink = 0.6 oz pur e alcohol) Comments Unknown Sex and Gender Information Value Date Recorded Sex Assigned at Not on file Legal Sex Female 1:13 PM CHRONIC CONDITION NURSE Gender Identity Not on file Sexual Orientation Not on file documented as of this encounter Miscellaneous Notes * Telephone Encounter - Magdalena Narayanan - 04/30/2018 11:43 AM CDT Called patient back this morning and she did not want to do the 05/17. She asked for a date in June so I was able to give her 06/14 at 9:30 for testing and 10:[address] Lima. Verified information and mailing new patient packet. 04/30/18: Called and spoke to patient to set up appt on 05/[address] [facility] [address] Lima. She agreedto date, but said she had to leave for an appt. I tried to schedule, but no vas times. Could schedule on 05/06 while she is here and Dr. Lima on 05/17 if she's ok with that. Left her a message to return call. documented in this encounter Plan of Treatment Not on file documented as of this encounter Visit Diagnoses Not on filedocumented in this encounter Care Teams Pan Devulcanizer Relationship Specialty Start Date End Date Burke Rosenberg DO [address] [address] PCP - General 10/09/16 02/19/20 Luther Bone RN 4901 [facility] 340 [place], [place] [id number] Relocation Director 12/01/17 9 Gregg Peace RN 4590 [facility] [address] [place] [address] Relocation Director 12/08/17 documented as of this encounter
--- OUTSIDE RECORDS SUMMARY | 2024-06-27 01:57 | XMS_ITS | Encounter Summary ---
Author Organization [facility] Address [address] [place] [address] Phone Care Team Providers Care Manager Mortgage Name Role Phone Burke Rosenberg DO Primary Care Provider [phone] Luther Bone RN Unavailable Gregg Peace RN Unavailable Encounter Details Date Type Department Care Team (Late st Contact Info) Description 06/07/2018 Orders Only [facility] Nephrology [address] [facility] Advanced Medicine 5th [place] [address] [place] [address] Jessie Man MD 49[address] [facility] [address] [place] [address] Encounter for aftercare following kidney transplant (Primary Dx) Social History Tobacco Use Types Packs/Day Years Used Date Smoking Tobacco: Never Smokeless Tobacco: Never Alcohol Use Standard Drinks/Week Comments No 0 (1 standard drink = 0.6 oz pur e alcohol) Comments No Sex and Gender Information Value Date Recorded Sex Assigned at Not on file Legal Sex Female 1:13 PM PHOTO SPECIALIST Gender Identity Not on file Sexual Orientation Not on file documented as of this encounter Plan of Treatment Not on file documented as of this encounter Visit Diagnoses Diagnosis Encounter for aftercare following kidney transplant- Primary documented in this encounter Care Teams Manager Mortgage Relationship Specialty Start Date End Date Burke Rosenberg DO 637 [facility] 170 [place] [address] PCP - General 10/09/16 02/19/20 Luther Bone RN 4901 [facility] 340 [place] [address] Sign Letterer 12/01/17 9 Gregg Peace RN 1790 [facility] [address] [place] [address] Sign Letterer 12/08/17 documented as of this encounter
--- OUTSIDE RECORDS SUMMARY | 2024-06-27 01:57 | XMS_ITS | Encounter Summary ---
Author Organization [facility] Healthcare Address [address] [place] [address] Care Team Providers Care Systems Development Manager Name Role Phone Burke Rosenberg DO Primary Care Provider Luther Bone RN Unavailable [phone] Gregg Peace RN Unavailable [phone] Reason for Visit * Reason Onset Date Comments Referral - Kidney Txp 04/05/2018 Encounter Details Date Type Department Care Team (Late st Contact Info) Description 04/05/2018 Telephone [facility] Transplant Kidney [address] [address] Mail[address] [phone] [place] [address] Hernando Davila Referral - Kidney Txp Social History Tobacco Use Types Packs/Day Years Used Date Smoking Tobacco: Never Alcohol Use Standard Drinks/Week Comments No 0 (1 standard drink = 0.6 oz pur e alcohol) Comments Unknown Sex and Gender Information Value Date Recorded Sex Assigned at Not on file Legal Sex Female 1:13 PM ANALOG IC DESIGN ARCHITECT Gender Identity Not on file Sexual Orientation Not on file documented as of this encounter Miscellaneous Notes * Telephone Encounter - Luther Bone, DEREK - 04/05/2018 11:27 AM CDT Returned the patient's phone call. Pt has had two injuries in the last 5 weeks to her arm (same ramos her functioning fistula). She states that after the 1st injury she had a big skin tear which still hasn't healed. Her hand his swollen, painful and still red. Directed her to follow back up with her PCP to make sure she doesn't have underlying cellulitis or lymphedema. Pt agreeable with the plan. * Telephone Encounter - Hernando Davila - 04/05/2018 9:00 AM CDT Pt is having problem with swelling in her arm and hand due to skin tear. Pt wants to be referred tohand/arm physician. This is also her former dialysis arm. 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 Please call pt. documented in this encounter Plan of Treatment Not on file documented as of this encounter Visit Diagnoses Not on filedocumented in this encounter Care Teams Systems Development Manager Relationship Specialty Start Date End Date Burke Rosenberg DO [address] [address] PCP - General 10/09/16 02/19/20 Luther Bone RN [address] [address] Face Worker 12/01/17 9 Gregg Peace RN [address] [id number] Face Worker 12/08/17 documented as of this encounter
--- OUTSIDE RECORDS SUMMARY | 2024-06-27 01:57 | XMS_ITS | Encounter Summary ---
Author Organization [facility] Healthcare Address [address] [place] [address] Care Team Providers Care Cardiac Exercise Physiologist Name Role Phone Burke Rosenberg DO Primary Care Provider Luther Bone RN Unavailable [phone] Gregg Peace RN Unavailable Encounter Details Date Type Department Care Team (Latest Contact Info) Description 05/05/2018 8:41 AM CDT - 05/05/2018 11:01 AM CDT Hospital Encounter [facility] Surgery at [facility] [address] [place] [address] Butch Maria MD [address] [facility] [address] [place] [address] 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 cataract of both eyes Discharge Disposition: Discharge to home or self care Social History Tobacco Use Types Packs/Day Years Used Date Smoking Tobacco: Never Smokeless Tobacco: Never Alcohol Use Standard Drinks/Week Comments No 0 (1 standard drink = 0.6 oz pur e alcohol) Comments No Sex and Gender Information Value Date Recorded Sex Assigned at Not on file 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 9 aspirin 81 mg tabletIndications [...] mcg tablet Take 100 mcg by mouth cleaning technician before breakfast. 04/14/2014 8 lisinopril (PRINIVIL,ZESTRIL ) [...] mg tablet Take 5 mg by mouth cleaning technician before breakfast. 02/10/2013 8 sodium bicarbonate 650 [...] Attending Surgeon: Butch Maria MD Surgical Team: Steward/Stewardess Room: Ervin Cerna, DEREK; Gely Balderas RN Scrub: Nani Babb RN [...] Implant Name Type Inv. Item Serial No. Insurance Clerk Lot No. LRB No. Used SON [employer] [id number] ACRYSOF IQ NATURAL STABLEFORCE ACRYSERT 6MM 13MM 1 PIECE FOLDABLE - [id number] - [id number] Lens SON [employer] [id number] ACRYSOF IQ NATURAL STABLEFORCE ACRYSERT 6MM 13MM 1 PIECE FOLDABLE [id number] Son Surgical 0 Left 1 Blood/Blood Products Transfused: 0 mls Complications: None Condition on Discharge from the operating room was stable Butch Maria MD Date: 05/05/2018 Time: 10:21 AM No Resident involved on case * Pre-Procedure Instructions - Adeline Carlson NP - 04/07/2018 3:44 PM CDT [facility] Location: [facility] CPAP The night before your surgery: [...] your surgery: Vitamin E, Fish Oil (Lovaza, [place] 3), Herbal medicines, Diet Pills ?? If [...] Given 05/05/2018 9:17 AM CDT 0.3 mL Lactated Ringer's (LR) infusion 30 mL/hr, intravenous, Continuous, Starting on Thu05/05/18 at 1100, Pre-Op sodium chloride 0.9% flush 0.5-20 mL 0.5-20 [...] mg capsule Take 200 mg by mouth cleaning technician before breakfast. 03/03/2019 added in this encounter [...] no.2 irri g. (BSS) intraocular solution 1 05/05/2018 chondroitin sulf-sod hyaluro n (DUOVISC) 3 %-4 %(0.5 mL) 1 % (0.55 mL) intraocular kit 1 05/05/2018 EPINEPHrine 0.3 mg in balanc ed salt soln no.2 irrig. (BSS) 500 mL irrigation solution 1 05/05/2018 Lactated Ringer's (LR) infusion 1 8 lidocaine 1 % and bupivacain e 0.375 % (EYE LOCAL) ophthalmic soln 5 mL 1 05/05/2018 moxifloxacin (VIGAMOX) 0.5 % ophthalmic solution 1 05/05/2018 povidone-iodine (BETADINE VA EP) 5 % ophthalmic solution 1 05/05/2018 prednisoLONE acetate (PRED F ORTE) 1 % ophthalmic suspension 1 05/05/2018 sodium chloride 0.9% flush 0.5-20 mL 1 04/07 documented in this encounter Care Teams Cardiac Exercise Physiologist Relationship Specialty Start Date End Date Burke Rosenberg DO [address] [facility] [address] [place] [address] PCP - General 10/09/16 02/19/20 Luther Bone RN [address] [address] Process Controller 12/01/17 9 Gregg Peace RN [address] [address] Process Controller 12/08/17 documented as of this encounter
--- OUTSIDE RECORDS SUMMARY | 2024-06-27 01:57 | XMS_ITS | Encounter Summary ---
Author Organization [facility] Address [address] [place] [address] Phone Care Team Providers Care Child Life Specialist Name Role Phone Burke Rosenberg DO Primary Care Provider Luther Bone RN Unavailable [phone] Gregg Peace RN Unavailable Encounter Details Date Type Department Care Team (Late st Contact Info) Description 05/13/2018 1:15 PM DIRECTOR OF STRATEGY & MOBILE Office Visit [facility] [address] [facility] [address] [address] [place] [address] Butch Maria MD [address] [facility] [address] [place] [address] Pseudophakia of left eye (Primary Dx) Social History Tobacco Use Types Packs/Day Years Used Date Smoking Tobacco: Never Smokeless Tobacco: Never Alcohol Use Standard Drinks/Week Comments No 0 (1 standard drink = 0.6 oz pur e alcohol) Comments No Sex and Gender Information Value Date Recorded Sex Assigned at Not on file Legal Sex Female 1:13 PM DIRECTOR OF STRATEGY & MOBILE Gender Identity Not on file Sexual Orientation Not on file documented as of this encounter Progress Notes * Butch Maria MD - 05/13/2018 1:15 PM CST Imp: 1 week status post (s/p) phaco/IOL left eye (OS) with improving corneal edema P: Stop Moxi drops. Use other drops left eye (OS) TID. Return in 2 -3 weeks for POV and intraocularlens (IOL) recalculation right eye (OD). 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 Will have Alvina contact pt to change date of surgery right eye (OD) CTOR OF STRATEGY & MOBILE documented in this encounter Plan of Treatment Not on file documented as of this encounter Visit Diagnoses Diagnosis Pseudophakia of left eye- Primary Lens replaced by other means documented in this encounter Eye Exam Visual Acuity (Snellen - Linear) Right eye Left eye Dist sc 20/50 -1+1 Tonometry Right eye Left eye Pressure 16 Slit Lamp Exam Right eye Left eye Lids/Lashes Normal Conjunctiva/Sclera White and lisandro et Cornea 2+ temporal stro mal and descemets edema Anterior Chamber Deep, Quiet Iris Round and reacti ve Lens Posterior chambe r intraocular lens, no Posterior capsular opacification Care Teams Child Life Specialist Relationship Specialty Start Date End Date Burke Rosenberg DO [address] [facility] [address] [place] [address] PCP - General 10/09/16 02/19/20 Luther Bone RN [address] [facility] [address] [place], [place] [id number] Shake Out Worker 12/01/17 9 Gregg Peace RN [address] [facility] [address] [place], [place] [id number] Shake Out Worker 12/08/17 documented as of this encounter
--- OUTSIDE RECORDS SUMMARY | 2024-06-27 01:57 | XMS_ITS | Encounter Summary ---
Author Organization [facility] Address [address] [place] [address] Phone Care Team Providers Care Retail Supervisor Name Role Phone Burke Rosenberg DO Primary Care Provider Luther Bone RN Unavailable Gregg Peace RN Unavailable Encounter Details Date Type Department Care Team (Late st Contact Info) Description 06/08/2018 Orders Only [facility] [address] [facility] Medicine 5th [place] [address] [place] [address] Jenna Hart MA Social History Tobacco Use Types Packs/Day Years Used Date Smoking Tobacco: Never Smokeless Tobacco: Never Alcohol Use Standard Drinks/Week Comments No 0 (1 standard drink = 0.6 oz pur e alcohol) Comments No Sex and Gender Information Value Date Recorded Sex Assigned at Not on file 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 hydrocortisone (PROCTOZONE-HC) 2.5 % rectal cream 1 application to affected area 03/15/20 19 ondansetron ODT (ZOFRAN-ODT) 4 mg disintegrating tablet 05/26/20 19 metoprolol (LOPRESSOR) 50 mg tablet TK 1 T PO BID 2 04/03/2018 10/16/19 19 lisinopril (PRINIVIL,ZESTRIL) 10 mg tablet TK 1 T PO D 3 03/18/2018 12/25/19 19 levothyroxine in sodium chloride 0.9% IV syringe daily. 06/14/20 18 fluticasone (FLONASE) 50 mcg/actuation nasal spray SHAKE LQ AND U 1 SPR IEN QD 3 03/19/2018 05/26/20 19 azithromycin (ZITHROMAX) 250 mg tablet ZPK 0 03/19/2018 03/15/20 19 amoxicillin-clavula adilene (AUGMENTIN) 875-125 mg per tablet TK 1 T PO BID FOR 10 DAYS. 1 04/07/2018 03/15/20 19 amLODIPine (NORVASC) 10 mg tablet Take 10 mg by mouth daily 03/15/20 19 added in this encounter Care Teams Retail Supervisor Relationship Specialty Start Date End Date Burke Rosenberg DO [address] [facility] [address] [place] [address] PCP - General 10/09/16 02/19/20 Luther Bone RN [address] [facility] [address] [place], [place] [id number] Director Case Management 12/01/17 9 Gregg Peace RN [address] [facility] [address] [place] [address] Director Case Management 12/08/17 documented as of this encounter
--- OUTSIDE RECORDS SUMMARY | 2024-06-27 01:57 | XMS_ITS | Encounter Summary ---
Author Organization [facility] Facility Care Team Providers Care Oil Burner Servicer And Installer Name Role Phone Burke Rosenberg DO Primary Care Provider [phone] Encounter Details Date Type Department Care Team (Late st Contact Info) Description 08/29/2013 9:39 AM ELECTRICAL PRODUCTS ENGINEER - 08/30/2013 6:40 PM [facility] Hospital Encounter [facility] Pretty Mckinley MD [address] [place] [address] Mixed urge and stress incontinence; 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); End-stage renal disease (CMS/HCC) (HCC); Other disorders of arteries and arterioles; Hypothyroidism; Herpes zoster; Herpes zoster with other nervous system complications; Acidosis; Status post kidney transplant; History of allergy to other specified medicinal agents; Encounter for long-term (current) use of steroids; Encounter for long-term (current) use of other medications; Family history of malignant neoplasm of gastrointestinal tract; Family history of ischemic heart disease; Family history of diabetes mellitus Social History Tobacco Use Types Packs/Day Years Used Date Smoking Tobacco: Never Assessed Alcohol Use Standard Drinks/Week Comments No 0 (1 standard drink = 0.6 oz pur e alcohol) Comments Unknown Sex and Gender Information Value Date Recorded Sex Assigned at Not on file Legal Sex Female 1:13 PM ELECTRICAL PRODUCTS ENGINEER Gender Identity Not on file Sexual Orientation Not on file documented as of this encounter Last Filed Vital Signs Vital Sign Reading Time Taken Comments Blood Pressure 124/64 08/30/2013 6:20 PM ELECTRICAL PRODUCTS ENGINEER Pulse 83 08/30/2013 6:20 PM ELECTRICAL PRODUCTS ENGINEER Temperature - - Respiratory Rate - - Oxygen Saturation 97% 08/30/2013 4:24 PM ELECTRICAL PRODUCTS ENGINEER Inhaled Oxygen Concentration - - Weight 53.5 kg (117 lb 15.8 oz) 08/29/2013 1:34 PM ELECTRICAL PRODUCTS ENGINEER Height 160 cm (5' 3 ) 08/29/2013 1:34 PM ELECTRICAL PRODUCTS ENGINEER Body Mass Index 20.9 08/29/2013 1:34 PM ELECTRICAL PRODUCTS ENGINEER documented in this encounter Medications at Time of Discharge metoprolol (LOPRESSOR) 50 mg tablet Take 50 mg by mouth 2 times daily. 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 02/10/2013 05/21/2018 sodium bicarbonate 650 mg tablet Take 1 tablet by mouth nightly. 03/10/2013 09/30/2018 tacrolimus (PROGRAF) 1 mg capsule Take 2 mg by mouth 2 (two) times a day. 03/02/2013 09/29/2018 documented as of this encounter Consult Notes * Provider, MD Diego - 08/30/2013 12:00 AM CST Patient: Amanda Maki Reg No: [id number] Formerly [facility] #: [id number] Admit Dt.: 08/29/2013 : 1935 Room No: [id number] Attending: Pretty Lowery M.D. Consulting: Raghav Hart M.D. Dictating: LIZ Diaz Service Dt: 08/30/2013 CONSULTATION REPORT PHYSICIAN REQUESTING CONSULTATION: Dr. Pretty Lowery REASON FOR CONSULTATION: Immunosuppression management in a post-renal transplant recipient undergoing urethral sling procedure. HISTORY OF PRESENT ILLNESS: Ms. 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 She underwent a single pediatric donor kidney transplant on February 10, 2013. This was a 2 A, 1 B, 1 DR mismatch, CMV positive donor into negative recipient. Her baseline creatinine is around 1.0-1.2. The patient was anuric prior to her transplant and developed issues with urinary incontinence post-transplant when she began to make a normal amount of urine. Subsequently, the patient has electively undergone a ureteral sling procedure for treatment of her urinary incontinence. The patient went to surgery on August 29, 2013 and may potentially be discharged home this afternoon. Prior to her surgery, with the exception of her urinary incontinence, the patient denies any recent urinary issues. She has not had any burning or pain on urination. She has not noted any hematuria. She has not had any recent fevers, chills, nausea, vomiting, or diarrhea. She has not had any abdominal pain, chest pain, or shortness of breath. She denies any lower extremity edema. She reports she is compliant with her medications. She states that several weeks ago, she saw her primary care physician, who was concerned about her liver function as well as her TSH. The patient, herself, is somewhat concerned about her AV graft possibly developing a stenosis. She has noted that she has some dilated veins in her arm and did temporarily have some pain around the fistula which has now subsided. She is also expressing concern about hair loss. PAST MEDICAL/SURGICAL HISTORY: 1. 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 2. Status post donor renal transplant, February 10, 2013. This was a solitary pediatric kidney, 2 A, 1 B, 1 DR mismatch, CMV positive donor into negative recipient. Thymoglobulin induction therapy. 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 She did receive plasmapheresis and was briefly on belatacept for immunosuppression, but this has since been discontinued. Current maintenance immunosuppression is prednisone and Prograf alone. She is off myfortic due to chronic leukopenia. 3. Leukopenia. This is thought to be medication related. The patient is negative for CMV and BK virus on recent testing. She has had her myfortic discontinued as well as her Bactrim. 4. Metabolic acidosis. The patient is thought to have some distal renotubular acidosis and is on sodium bicarbonate supplementation. 5. Hypertension. 6. Hypothyroidism. 7. Varicella zoster infection with post-herpetic neuralgia for which the patient takes amitriptyline. 8. Coronary artery disease with a 30 percent circumflex lesion, a 40 percent right coronary artery lesion seen on coronary catheterization in October 2008. 9. Hyperparathyroidism status post parathyroidectomy in 1994. 10. Left upper extremity AV graft formation. 11. Varicose vein ligation in the right lower leg. 12. Rhinoplasty. 13. Positive mycoplasma IgA antibody found during her hospitalization for renal transplant. She received a course of azithromycin. 14. Schatzki's ring of the esophagus and hiatal hernia on upper endoscopy in September 2008. CURRENT MEDICATIONS: 1. Prednisone 5 mg daily. 2. Prograf 1 mg twice a day. 3. Sodium bicarbonate 1,300 mg twice a day. 4. Vitamin D 2000 international units daily. 5. Levothyroxine 100 mcg daily. 6. Metoprolol 75 mg twice a day (the patient has had escalation in her dose recently due to poorly controlled blood pressure). 7. Valcyte 450 mg daily (this will be for nine months post-transplant as this is CMV positive into negative). Currently medications on hold due to leukopenia include: Bactrim double strength daily. Myfortic 360 mg twice a day. ALLERGIES: 1. Codeine. 2. Keflex. 3. Nitrofurantoin. 4. Tetracaine. FAMILY HISTORY: Father at age 63 secondary to coronary disease. Mother at age 67 due to pancreatic cancer. She has one sister who is 82 years of age and has been treated for colon cancer; she has a brother who is 68 years of age and was recently diagnosed with diabetes. She has a daughter, age 47, and she is also diabetic; another daughter, age 41, is in good health. She thinks that her grandmother was treated for kidney disease. SOCIAL HISTORY: The patient is . She lives with her . 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 She denies any history of tobacco abuse, alcohol intake, or illicit drug use. She received Pneumovax vaccination in 2010 and is currently up-to-date with influenza vaccination. She received a blood transfusion in 2009 and again at the time of her transplant. REVIEW OF SYSTEMS: A complete review of systems was obtained and all other systems are negative except as discussed in History of Present Illness. PHYSICAL EXAMINATION: VITAL SIGNS: Temperature 36.5, heart rate 62, respiratory rate is 16, blood pressure is 144/53. Oxygen saturation on room air is 93 percent. Current weight is 53.5 kg. GENERAL: Small, elderly, female in no acute distress. HEAD, EYES, EARS, NOSE, THROAT: Normocephalic, atraumatic. Sclerae anicteric. Conjunctiva clear. Oropharynx is clear with no thrush or lesions noted. NECK: Supple with no palpable lymphadenopathy, no carotid bruits auscultated bilaterally. CARDIOVASCULAR: Regular rate and rhythm. Normal S1 and S2. I do not auscultate any rub, click, or murmur on exam today. LUNGS: Clear to auscultation anteriorly. However, the patient has bilateral crackles in the lung bases on deep inspiration posteriorly. SKIN: No rash or petechiae noted. EXTREMITIES: There is no lower extremity edema bilaterally. In the left arm, there is an AV graft with positive bruit and thrill. No erythema or warmth of the area. NEUROLOGIC: Grossly nonfocal. The patient is alert and oriented. PSYCHIATRIC: Normal mood and affect. LABORATORY AND X-RAY DATA: Today, sodium 143, potassium 4.7, chloride 104, bicarbonate 23, BUN 15, creatinine 0.98, blood glucose 144. Tacrolimus trough level 6.0. Total protein 5.9, albumin 3.7, bilirubin 0.5, alkaline phosphatase 99, AST 35, ALT 34. T3 is 2.5, T4 1.35, TSH 0.64. 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 She is status post a single, donor, pediatric kidney transplant on February 10, 2013. This was a 2 A, 1 B, 1 DR mismatch, CMV positive donor into negative recipient. Baseline creatinine is 1-1.2. The patient is admitted for surgery for management of urinary incontinence. RECOMMENDATIONS: 1. End-stage renal disease status post donor renal transplant. The patient's creatinine is actually below baseline at present. I suspect this reflects IV fluid hydration. No concerns with respect to her transplant function at this time. She is on ciprofloxacin and Flagyl perioperatively for antibiotic coverage. 2. Immunosuppression. Continue with prednisone at 5 mg daily, Prograf 1 mg twice a day. Her current Prograf level is 6.0, which is within goal range. Continue to hold her myfortic as she does continue to be leukopenic. Will try to add a CBC to her lab work today, but last white cell count in the records is between 2.8-2.9 approximately one week ago. 3. Infectious disease prophylaxis. The patient is now off her Bactrim due to the ongoing leukopenia. She continues with Valcyte 450 mg daily and will need to complete a nine-month course. CMV PCR was checked approximately two weeks ago and was negative at that time. She has also had BK virus PCR checked on August 24, which was also negative. 4. Leukopenia. As outlined above, the patient has had medication changes in the hopes to improve her leukopenia. However, her white cell count does seem to be persistently in the 2.8-2.9 range. She is not symptomatic and viral studies have been negative to this point. This may be secondary to her Valcyte. However, she needs to continue a full nine-month course. Will continue with serial BK virus and CMV virus PCR's for monitoring. 5. Hypertension. The patient has had a recent increase in her metoprolol dose and inpatient blood pressures have been relatively well controlled between the 130-140's systolic. No changes at this time. Continue with metoprolol and Norvasc. 6. Hypothyroidism. The patient reports that her primary care physician had recommended a reduction in her levothyroxine dose recently. However, on the labs obtained today, there does not appear to be any indication for dosage adjustment. The patient was informed of her current labs. 7. Metabolic acidosis. Continue with oral bicarbonate supplementation. 8. Urinary incontinence, status post ureteral sling. The patient has had her Rosales catheter removed this morning. She has been able to void. She does seem to have an improvement in her ability to hold her urine, but still has a urinary urgency. She is currently on Cipro and Flagyl. There is an anticipated discharge later this afternoon and she will follow up with urology as an outpatient. 9. Hair loss. This is likely a side effect of her Prograf. However, we will check an iron panel to see if she is iron deficient, as correcting this may help with her symptoms. 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 At this point, we will not arrange for any intervention on her AV graft. There does not appear to be any evidence of thrombosis. It does have a relatively high-pitched bruit which may indicate some stenosis, but her kidney function is excellent and there is no indication to intervene at this time. The patient was seen and examined by Dr. Raghav Hart. We will cancel her upcoming outpatient clinic appointment with transplant nephrology as this inpatient visit will be sufficient for this month. LIZ Diaz Electronically Signed By Raghav Hart M.D. 09/02/2013 11:40 A Raghav Hart M.D. [facility] #[id number] Editing MT: TD: 08/31/2013 09:13:00 cc: Areli Grier ANP Hing H. Lai, M.D. Suresh Mathew, M.D. Mark S. Pelikan, D.O. documented in this encounter Miscellaneous Notes * Op Note - Provider, MD Diego - 08/29/2013 12:00 AM CST Patient: Amanda Maki Reg No: [id number] Formerly [facility] #: [id number] Admit Dt.: 08/29/2013 : 1935 Pt Type: 200 Room No: [id number] Attending: Pretty Lowery M.D. Surgeon: Pretty Lowery M.D. Dictating: Pretty Lowery M.D. Service Dt: 08/29/2013 OPERATIVE REPORT FIRST BESSEMER CONVERTER OPERATOR: Vik Montilla MD ANESTHESIA: General anesthesia. PREOPERATIVE DIAGNOSIS (ES): Female stress urinary incontinence. POSTOPERATIVE DIAGNOSIS (ES): Female stress urinary incontinence. NAME OF OPERATION: 1. Placement of TVT-O midurethral sling. 2. Cystoscopy. INDICATIONS FOR PROCEDURE: Amanda is a lady who has seen me for female stress urinary incontinence. She also has urinary urgency and urge incontinence. We have discussed a treatment approach to this. We are going to place a midurethral sling because of the significant stress incontinence problem. I told her that postoperatively she may continue to have residual stress incontinence and in addition she may continue to have urge incontinence that will require further surgical or medical management. The patient understands this approach and is willing to proceed. The specific risks of the placement of the mesh have been discussed with the patient. The risks include but not limited to bleeding, infection, incomplete bladder emptying, urinary retention, persistent stress incontinence, residual and persistent urge incontinence and urgency. In addition, the use of mesh through a vaginal approach has been discussed with the patient and the risks and benefits have been considered. The risks include erosion of the sling into the vagina, the urethra, and the bladder, extrusion of the sling inside the bladder, vaginal pain, etcetera. DESCRIPTION OF PROCEDURE: The patient was identified in the preoperative area and started on Flagyl and vancomycin and ciprofloxacin prior to the beginning of the procedure. She was put into the low lithotomy position in the operating room. She was draped and shaved in the standard surgical fashion. A full vaginal prep was used inside the patient. Bilateral sequential compression devices were placed for DVT prophylaxis. A weighted speculum was placed inside the vagina. A Rosales catheter was placed inside the bladder to completely empty the bladder. A midline incision was then made in the area of the mid urethra. Dissection was then carried down to the left and on the right side to create one tunnel without violating lateral sulcus of the vagina. The Metzenbaum scissors were used and we palpated pubic bone on the left side and the right side. The metal guide was then used to enter the obturator internus fascia on the left and on the right. The manual trochar was then entered and passed through the metal guide and came out through the area lateral to the thigh crease. This was inferior to the abductor longus tendon. There was one trocar passage on the right and one trocar passage on the left coming out of the expected anatomic location. The sling was then pulled in to the vaginal incision. The Rosales catheter was removed. Inspection with cystoscopy was performed. There was no violation of the bladder or the urethra. The sling was then tensioned underneath the urethra. A straight right angle clamp was placed to separate the urethra from the sling. The plastic sheath was then removed. Once the metal clamp was removed, the sling rested nicely without tension underneath the urethra. There was no bleeding at this portion of the case. The incision was closed using a 2-0 Vicryl stitch in a running locking fashion. The vaginal estrogen cream as well packing was placed inside the vagina. The Rosales catheter was draining clear urine. The mesh was cut away from the subcutaneous tissue and the thigh area. The skin was pulled back up so that the sling dropped back underneath the subcutaneous area. The skin incision was closed using 4-0 absorbable suture. All counts were correct at the conclusion of the case. SPECIMENS REMOVED: None. ESTIMATED BLOOD LOSS: None. SPONGE/INSTRUMENT/NEEDLE COUNTS: Correct. COMPLICATIONS: None. ATTESTATION STATEMENT: Dr. Kali Lowery was present for the procedure. Electronically Signed By Pretty Lowery M.D. 09/18/2013 06:49 P Areli Larios/víctor #[id number] Editing MT: TD: 09/18/2013 14:49:00 cc: Pretty Lowery M.D. documented in this encounter Plan of Treatment Not on file documented as of this encounter Procedures Procedure Name Priority Date/Time Associated Diagnosis Comments SERUM TRIIODOTHYRONINE (T3), FREE Routine 08/30/2013 4:45 AM ELECTRICAL PRODUCTS ENGINEER SERUM THYROXINE (T4), FREE Routine 08/30/2013 4:45 AM ELECTRICAL PRODUCTS ENGINEER SERUM THYROID-STIMULATING HORMONE (TSH) Routine 08/30/2013 4:45 AM ELECTRICAL PRODUCTS ENGINEER SERUM IRON PROFILE Routine 08/30/2013 4: 45 AM ELECTRICAL PRODUCTS ENGINEER PLASMA HEPATIC FUNCTION PANEL Routine 08/30/2013 4:45 AM ELECTRICAL PRODUCTS ENGINEER PLASMA BASIC METABOLIC PANEL Routine 08/30/2013 4:45 AM ELECTRICAL PRODUCTS ENGINEER BLOOD TACROLIMUS (FK-506), TROUGH DRUG LEVEL Routine 08/30/2013 4:45 AM ELECTRICAL PRODUCTS ENGINEER DISCHARGE LABORATORY CUMULATIVE REPORT Routine 08/30/2013 12:00 AM ELECTRICAL PRODUCTS ENGINEER documented in this encounter Results * Serum thyroid-stimulating hormone (TSH) (08/30/2013 4:45 AM ELECTRICAL PRODUCTS ENGINEER) Pathologist [facility] TSH 0.64 0.35 - 5.50 mcIUnits/m l HISTORICAL RESULTS Comment: Interpretive Data Hyperthyroid: ??<0.1 mcIUnit/mL Hypothyroid: ??>12.0 mcIUnit/mL Current interpretive data was last revised on 00. Serum 08/30/2013 4:45 AM ELECTRICAL PRODUCTS ENGINEER Vik Montilla MD LAB BLOOD ORDERABLES Final [facility] Performing Organization Address [facility] de Phone Number HISTORICAL RESULTS * (ABNORMAL) Plasma hepatic function panel (08/30/2013 4:45 AM ELECTRICAL PRODUCTS ENGINEER) [facility] Protein, pl 5.9(L) 6.5 - 8.5 g/dl HISTORICAL RESULTS Alb 3.7 3.6 - 5.0 g/dl HISTORICAL RESULTS Bilirubin 0.5 0.3 - 1.1 mg/dl HISTORICAL RESULTS Bilirubin, direct 0.1 0.0 - 0.3 mg/dl HISTORICAL RESULTS Alk phos 99 38 - 126 Units/L HISTORICAL RESULTS AST 35 11 - 47 Units/L HISTORICAL RESULTS ALT 34 7 - 53 Units/L HISTORICAL RESULTS Plasma 08/30/2013 4:45 AM ELECTRICAL PRODUCTS ENGINEER Vik Montilla MD LAB BLOOD ORDERABLES [facility] Performing Organization Address [facility] de Phone Number HISTORICAL RESULTS * (ABNORMAL) Plasma basic metabolic panel (08/30/2013 4:45 AM ELECTRICAL PRODUCTS ENGINEER) Pathologist [facility] Sodium 134(L) 135 - 145 mmol/L HISTORICAL RESULTS K, pl 4.7 3.3 - 4.9 mmol/L HISTORICAL RESULTS Chloride 104 97 - 110 mmol/L HISTORICAL RESULTS CO2 23 22 - 32 mmol/L HISTORICAL RESULTS A. gap 7 0 - 16 mmol/L HISTORICAL RESULTS Glucose 144 70 - 199 mg/dl HISTORICAL RESULTS BUN 15 8 - 25 mg/dl HISTORICAL RESULTS Creatinine 0.98 0.60 - 1.10 mg/dl HISTORICAL RESULTS Calcium 9.1 8.6 - 10.3 mg/dl HISTORICAL RESULTS Plasma 08/30/2013 4:45 AM ELECTRICAL PRODUCTS ENGINEER Result Niko Montilla MD LAB BLOOD ORDERABLES Final Re sult Performing Organization Address [facility] Phone Number HISTORICAL RESULTS * Serum iron profile (08/30/2013 4:45 AM ELECTRICAL PRODUCTS ENGINEER) Iron 46 30 - 160 mcg/dl HISTORICAL RESULTS UIBC 185 mcg/dl HISTORICAL RESULTS TIBC 231 220 - 420 mcg/dl HISTORICAL RESULTS Transferrin saturation 20 20 - 50 % HISTORICAL RESULTS Serum 08/30/2013 4:45 AM ELECTRICAL PRODUCTS ENGINEER Result Niko Montilla MD LAB BLOOD ORDERABLES Final Re sult Performing Organization Address [facility] Phone Number HISTORICAL RESULTS * Serum triiodothyronine (T3), free (08/30/2013 4:45 AM ELECTRICAL PRODUCTS ENGINEER) Free T3 2.50 2.30 - 4.20 pg/ml HISTORICAL RESULTS Serum 08/30/2013 4:45 AM ELECTRICAL PRODUCTS ENGINEER Result Niko Montilla MD LAB BLOOD ORDERABLES Final Re sult Performing Organization Address [facility] Phone Number HISTORICAL RESULTS * Serum thyroxine (T4), free (08/30/2013 4:45 AM ELECTRICAL PRODUCTS ENGINEER) Free T4 1.35 0.90 - 1.80 ng/dl HISTORICAL RESULTS Serum 08/30/2013 4:45 AM ELECTRICAL PRODUCTS ENGINEER Result Niko Montilla MD LAB BLOOD ORDERABLES Final Re sult Performing Organization Address [facility] Phone Number HISTORICAL RESULTS * Blood tacrolimus (FK-506), trough drug level (08/30/2013 4:45 AM ELECTRICAL PRODUCTS ENGINEER) Tacrolimus, trough 6.0 ng/ml H ISTORICAL RESULTS Comment: Interpretive Data This test was developed using an analyte specific reagent. ??Its performance characteristics were determined by the [facility] in a manner consistent with CLIA requirements. This test has not been cleared or approved by the U.S. Food and Drug Administration. Current interpretive data was last revised on 2011. Blood specimen (specimen) 08/30/2013 4:45 AM ELECTRICAL PRODUCTS ENGINEER us Vik Montilla MD LAB BLOOD ORDERABLES Final Re sult HISTORICAL RESULTS * Discharge Laboratory Cumulative Report (08/30/2013 12:00 AM ELECTRICAL PRODUCTS ENGINEER) 08/30/2013 Narrative HISTORICAL RESULTS - 08/31/2013 3:18 AM ELECTRICAL PRODUCTS ENGINEER ?[facility] ?Department of Laboratories ? [address] [facility] [address] ? [place] [address] Patient Name: ??AMANDA MAKI Med Rec Number: [id number] Fin Number: ?[id number] Date: ?1935 Sex/Age: ? Female 78 years Admit Date: ?08/29/2013 Discharge Date: 08/30/2013 Doctor: ?Pretty Lowery Facility: ?[facility] Location: ?[id number] Chart Printed: 08/31/2013 03:18 ?? * Abnormal ?? C Critical ?? f Footnote ?? ^ Corrected ?? L Low ?? H High ? i Interp Data ?? @ Reference Lab ?Chart Type:Cumulative ? SELECTED ELECTROLYTES ?Test: Sodium ? Plasma Potassium ??Chloride ? Reference: [135-145] ??[3.3-4.9] ? [97-110] ? Units: mmol/L ? mmol/L ?mmol/L 08/30/2013 ?? 04:45:00 ?? 134 ??L ? 4.7 ? 104 ?Test: Total CO2 ??Anion Gap ? Reference: [22-32] ?[0-16] ? Units: mmol/L ? mmol/L 08/30/2013 ?? 04:45:00 ?? 23 ? 7 ? STANDARD BLOOD CHEMISTRY ?Test: BUN ? Creatinine ?? Total Bilirubin ? Reference: [8-25] ??[0.60-1.10] ??[0.3-1.1] ? Units: mg/dL ?? mg/dL ?mg/dL 08/30/2013 ?? 04:45:00 ?? 15 ?0.98 ? 0.5 ?Test: Bilirubin, Direct ??Glucose ?? Total Calcium ? Reference: [0.0-0.3] ?[70-199] ??[8.6-10.3] ? Units: mg/dL ?mg/dL ? mg/dL 08/30/2013 ?? 04:45:00 ?? 0.1 ?144 ? 9.1 ?Test: Plasma Total Protein ??Albumin ? Reference: [6.5-8.5] ? [3.6-5.0] ? Units: g/dL ?g/dL 08/30/2013 ?? 04:45:00 ?? 5.9 ??L ?3.7 ?ENZYMES ?Test: Alkaline Phosphatase ??ALT ?AST ? Reference: [38-126] ?[7-53] ?? [11-47] ? Units: Units/L ? Units/L ??Units/L 08/30/2013 ?? 04:45:00 ?? 99 ?34 ? 35 ?BLOOD HORMONES ?Test: TSH i ?Free T4 (Free Thyroxine) ? Reference: [0.35-5.50] ??[0.90-1.80] ? Units: mcIUnit/mL ?? ng/dL 08/30/2013 ?? 04:45:00 ?? 0.64 ? 1.35 08/30/2013 04:45:00 TSH: Interpretive Data Hyperthyroid: ??<0.1 mcIUnit/mL Hypothyroid: ??>12.0 mcIUnit/mL Current interpretive data was last revised on 00. ?Test: Free T3 ? Reference: [2.3-4.2] ? Units: pg/mL 08/30/2013 ?? 04:45:00 ?? 2.5 ?DRUG LEVELS ?Test: Tacrolimus, Tr i ? Reference: ? Units: ng/mL 08/30/2013 ?? 04:45:00 ?? 6.0 08/30/2013 04:45:00 Tacrolimus, Tr: Interpretive Data This test was developed using an analyte specific reagent. ??Its performance characteristics were determined by the [facility] in a manner consistent with CLIA requirements. ??This test has not been cleared or approved by the U.S. Food and Drug Administration. Current interpretive data was last revised on 2011. ?ANEMIA TESTING ?Test: Total Iron ??Total Iron Bind Capacity ? Reference: [30-160] ?[220-420] ? Units: mcg/dL ?mcg/dL 08/30/2013 ?? 04:45:00 ?? 46 ?231 ?ANEMIA TESTING ?Test: Unsat Iron Bind Capacity ? Reference: ? Units: mcg/dL 08/30/2013 ?? 04:45:00 ?? 185 ?Test: Transferrin Saturation ? Reference: [20-50] ? Units: % 08/30/2013 ?? 04:45:00 ?? 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) End-stage renal disease (CMS/HCC) (HCC) Other disorders of arteries and arterioles Hypothyroidism Unspecified hypothyroidism Herpes zoster Herpes zoster without mention of complication Herpes zoster with other nervous system complications Acidosis Status post kidney transplant History of allergy to other specified medicinal agents Encounter for long-term (current) use of steroids Encounter for long-term (current) use of other medications Family history of malignant neoplasm of gastrointestinal tract Family history of ischemic heart disease Family history of diabetes mellitus documented in this encounter Care Teams Oil Burner Servicer And Installer Relationship Specialty Start Date End Date Burke Rosenberg DO [address] [address] PCP - General 09/27/10 02/19/14 documented as of this encounter
--- OUTSIDE RECORDS SUMMARY | 2024-06-27 01:57 | XMS_ITS | Encounter Summary ---
Author Organization [facility] Healthcare Address [address] [place] [address] Care Team Providers Care Composition Weatherboard Applier Name Role Phone Burke Rosenberg DO Primary Care Provider [phone] Luther Bone RN Unavailable Gregg Peace RN Unavailable Encounter Details Date Type Department Care Team (Late st Contact Info) Description 06/04/2018 Orders Only [facility] Health Information Management [address] [place] [address] Scanning, Provider Social History Tobacco Use Types Packs/Day Years Used Date Smoking Tobacco: Never Smokeless Tobacco: Never Alcohol Use Standard Drinks/Week Comments No 0 (1 standard drink = 0.6 oz pur e alcohol) Comments No Sex and Gender Information Value Date Recorded Sex Assigned at Not on file Legal Sex Female 1:13 PM ADULT CARE MANAGER Gender Identity Not on file Sexual Orientation Not on file documented as of this encounter Plan of Treatment Not on file documented as of this encounter Procedures Procedure Name Priority Date/Time Associated Diagnosis Comments SCAN - LABS 06/04/2018 1:22 PM ADULT CARE MANAGER documented in this encounter Results * SCAN - LABS (06/04/2018 1:22 PM ADULT CARE MANAGER) us Provider Scanning Final Result documented in this encounter Visit Diagnoses Not on filedocumented in this encounter Care Teams Composition Weatherboard Applier Relationship Specialty Start Date End Date Burke Rosenberg, [address] [facility] [address] [place] [address] PCP - General 10/09/16 02/19/20 Luther Bone, DEREK [address] [facility] [address] [place] [address] Gauge And Instrument Inspector 12/01/17 9 Gregg Peace RN [address] [facility] [address] [place], [place] [id number] Gauge And Instrument Inspector 12/08/17 documented as of this encounter
--- OUTSIDE RECORDS SUMMARY | 2024-06-27 01:57 | XMS_ITS | Encounter Summary ---
Author Organization [facility] Healthcare Address [address] [place] [address] Care Team Providers Care Delivery Rep Name Role Phone Burke Rosenberg DO Primary Care Provider Luther Bone RN Unavailable Gregg Peace RN Unavailable [phone] Encounter Details Date Type Department Care Team (Late st Contact Info) Description 06/02/2018 Orders Only [facility] Health Information Management [address] [place] [address] Scanning, Provider Social History Tobacco Use Types Packs/Day Years Used Date Smoking Tobacco: Never Smokeless Tobacco: Never Alcohol Use Standard Drinks/Week Comments No 0 (1 standard drink = 0.6 oz pur e alcohol) Comments No Sex and Gender Information Value Date Recorded Sex Assigned at Not on file Legal Sex Female 1:13 PM HARPOONER Gender Identity Not on file Sexual Orientation Not on file documented as of this encounter Plan of Treatment Not on file documented as of this encounter Procedures Procedure Name Priority Date/Time Associated Diagnosis Comments SCAN - LABS 06/02/2018 2:30 PM HARPOONER documented in this encounter Results * SCAN - LABS (06/02/2018 2:30 PM HARPOONER) us Provider Scanning Final Result documented in this encounter Visit Diagnoses Not on filedocumented in this encounter Care Teams Delivery Rep Relationship Specialty Start Date End Date Burke Rosenberg, [address] [facility] [address] [place] [address] PCP - General 10/09/16 02/19/20 Luther Bone, DEREK [address] [facility] [address] [place] [address] Unemployment Claims Adjudicator 12/01/17 9 Gregg Peace RN [address] [facility] [address] [place], [place] [id number] Unemployment Claims Adjudicator 12/08/17 documented as of this encounter
--- OUTSIDE RECORDS SUMMARY | 2024-06-27 01:57 | XMS_ITS | Encounter Summary ---
Author Organization [facility] Healthcare Address [address] [place] [address] Care Team Providers Care Household Appliance Mechanic Name Role Phone Burke Rosenberg DO Primary Care Provider Luther Bone RN Unavailable [phone] Gregg Peace RN Unavailable [phone] Reason for Visit * Reason Onset Date Comments Referral to vascular Dr 04/21/2018 Encounter Details Date Type Department Care Team (Late st Contact Info) Description 04/21/[address] [facility] Transplant Kidney [address] [address] [address]stop [phone] [place] [address] Nadia Garland Referral to vascular Social History Tobacco Use Types Packs/Day Years Used Date Smoking Tobacco: Never Smokeless Tobacco: Never Alcohol Use Standard Drinks/Week Comments No 0 (1 standard drink = 0.6 oz pur e alcohol) Comments Unknown Sex and Gender Information Value Date Recorded Sex Assigned at Not on file Legal Sex Female 1:13 PM SUPPLY CHAIN SYSTEMS MANAGER Gender Identity Not on file Sexual Orientation Not on file documented as of this encounter Miscellaneous Notes * Telephone Encounter - Nadia Garland - 04/21/2018 9:12 AM CDT Pt called to state that 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 Please call pt at [phone]. Returned the patient's phone call. Still having issues with hand swelling and soreness to the left arm where her fistula is located. States that her PCP is recommending that she see a vascular surgeon. Referral placed to vascular. documented in this encounter Plan of Treatment Not on file documented as of this encounter Visit Diagnoses Diagnosis Kidney replaced by transplant- Primary Left arm swelling documented in this encounter Care Teams Household Appliance Mechanic Relationship Specialty Start Date End Date Burke Rosenberg DO [address] [facility] [address] [place] [address] PCP - General 10/09/16 02/19/20 Luther Bone RN [address] [facility] [address] [place] [address] Corporate Job Titles 12/01/17 9 Gregg Peace RN [address] [facility] [address] [place], [place] [id number] Corporate Job Titles 12/08/17 documented as of this encounter
--- OUTSIDE RECORDS SUMMARY | 2024-06-27 01:58 | XMS_ITS | Encounter Summary ---
Author Organization [facility] Facility Care Team Providers Care Tank Builder Supervisor Name Role Phone Burke Rosenberg DO Primary Care Provider [phone] Encounter Details Date Type Department Care Team (Late st Contact Info) Description 07/06/2012 - 07/05/2013 11:59 PM PROCESSING REP Hospital Encounter [facility] Social History Tobacco Use Types Packs/Day Years Used Date Smoking Tobacco: Never Assessed Alcohol Use Standard Drinks/Week Comments No 0 (1 standard drink = 0.6 oz pur e alcohol) Comments Unknown Sex and Gender Information Value Date Recorded Sex Assigned at Not on file Legal Sex Female 1:13 PM PROCESSING REP Gender Identity Not on file Sexual Orientation Not on file documented as of this encounter Medications at Time of Discharge metoprolol (LOPRESSOR) 50 mg tablet Take 50 mg by mouth 2 times daily. 02/11/2013 12/25/2017 predniSONE (DELTASONE) 5 mg tablet Take 5 mg by mouth director of business development before breakfast. 02/10/2013 05/21/2018 sodium bicarbonate 650 mg tablet Take 1 tablet by mouth nightly. 03/10/2013 09/30/2018 tacrolimus (PROGRAF) 1 mg capsule Take 2 mg by mouth 2 (two) times a day. 03/02/2013 09/29/2018 documented as of this encounter Plan of Treatment Not on file documented as of this encounter Visit Diagnoses Not on filedocumented in this encounter Care Teams Tank Builder Supervisor Relationship Specialty Start Date End Date Burke Rosenberg DO [address] [facility] [address] [place] [address] PCP - General 09/27/10 02/19/14 documented as of this encounter
--- OUTSIDE RECORDS SUMMARY | 2024-06-27 01:58 | XMS_ITS | Encounter Summary ---
Author Organization 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 Lettering Name Role Phone Burke Rosenberg DO Primary Care Provider [phone] Encounter Details Date Type Department Care Team (Latest Contact Info) Description 03/08/2013 12:28 PM CDT - 03/11/2013 5:33 PM CDT Hospital Encounter [facility] Raghav Geller MD [address] [place] [address] Orthostatic hypotension; Acute renal failure (HCC); Acidosis; Complication of transplanted kidney; Other specified disorders resulting from impaired renal function; Adult failure to thrive; Essential hypertension; Surgical operation with transplant of whole organ causing abnormal patient reaction, or later complication; Encounter for long-term (current) use of steroids; Chest pain; Constipation; Anemia; Postsurgical hypothyroidism Social History Tobacco Use Types Packs/Day Years Used Date Smoking Tobacco: Never Assessed Alcohol Use Standard Drinks/Week Comments No 0 (1 standard drink = 0.6 oz pur e alcohol) Comments Unknown Sex and Gender Information Value Date Recorded Sex Assigned at Not on file 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 Gender Identity Not on file Sexual Orientation Not on file documented as of this encounter Last Filed Vital Signs Vital Sign Reading Time Taken Comments Blood Pressure 166/74 03/11/2013 4:00 PM CDT Pulse 87 03/11/2013 4:00 PM CDT Temperature - - Respiratory Rate - - Oxygen Saturation 100% 03/11/2013 4:00 PM CDT Inhaled Oxygen Concentration - - Weight 48.4 kg (106 lb 9.5 oz) 03/11/2013 6:00 A M CDT Height 132.1 cm (4' 4 ) 03/08/2013 1:56 PM CDT Body Mass Index 27.72 03/08/2013 1:56 PM CDT documented in this encounter Medications at Time of Discharge metoprolol (LOPRESSOR) 50 mg tablet Take 50 mg by mouth 2 times daily. 02/11/2013 12/25/2017 predniSONE (DELTASONE) 5 mg tablet Take 5 mg by mouth dog trainer before breakfast. 02/10/2013 05/21/2018 sodium bicarbonate 650 mg tablet Take 1 tablet by mouth nightly. 03/10/2013 09/30/2018 tacrolimus (PROGRAF) 1 mg capsule Take 2 mg by mouth 2 (two) times a day. 03/02/2013 09/29/2018 documented as of this encounter H&P Notes * Provider, MD Diego - 03/08/2013 12:00 AM CDT Patient: Amanda Dunlap Reg No: [id number] [facility] #: [id number] Admit Dt.: 03/08/2013 : 1935 Room No: 14889 Attending: Raghav Hart M.D. Dictating: Camille Escobar PA-C ADMISSION HISTORY PHYSICAL ADMISSION DIAGNOSIS (ES): 1. Failure to thrive. 2. Hypotension. 3. Immunosuppression. 4. Status post renal transplant on February 10, 2013. 5. Chest pain. 6. Weakness. CHIEF COMPLAINT: Dizziness, chest pain, and weakness. HISTORY OF PRESENT ILLNESS: Ms. 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 She underwent treatment in 2009 with Cytoxan, mycophenolate mofetil, and prednisone; however, was complicated by constipation, and then she developed shingles in the lower back resulting a post herpetic neuralgia. She underwent a pediatric, DCD kidney transplant on February 10, 2013, 2A, 1B, 1DR mismatch, CMV positive into negative. Operating surgeon was Dr. Mahmood. She received Thymoglobulin induction 50 mg / 100 mg / 100 mg. On postoperative day 0 she underwent a renal ultrasound due to decreased urine output, not responsive to fluid bolus. The ultrasound was unremarkable. She was hypertensive and initiated on 75 milligrams Metoprolol two times per day, 10 milligrams of Norvasc daily, and 0.1 milligrams of clonidine every evening. She was very volume sensitive and was started on intravenous Lasix. Chest x-ray revealed pulmonary edema and was concerning for pneumonia, so she was started on Vancomycin and Cefepime. She also underwent an echocardiogram which revealed an ejection fraction of 55%. Her postoperative course was also complicated by anemia. She had evidence of hemolysis. 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 It was thought that her cefepime and prograf could be contributing, so her cefepime was switched to moxifloxacin, prograf was stopped, and she received 500 mg of belatacept. Another possible cause was her significant hypertension. Infectious work-up for pneumonia was sent, and she was found to be mycoplasma antibody positive. Therefore, her broad-spectrum antibiotics were discontinued, and she was given 500 milligrams of Azithromycin, followed by four days of 250 milligrams and three more doses as an outpatient. A noncontrast CT scan of her abdomen and pelvis was unremarkable for hematoma. [id number] level was found to be low. She received hemodialysis once on February 23, 2013 for hyperkalemia and plasmapheresis times one on February 24, 2013. Prograf was never restarted. She received her first dose of belatacept on February 22, 2013, and her first outpatient dose will be the week of March 14, 2013. She received 2 units of packed red blood cells on February 15, 2013, February 19, 2013, and 1 unit of packed red blood cells on February 25, 2013 prior to her discharge. She also received 2 units of fresh frozen plasma with plasmapheresis. Creatinine was 1.29 at the time of discharge, and she was making good urine output. As stated above, she was taken off Prograf for suspicion that it was the culprit of her thrombotic microangiopathy, and she was given belatacept instead. She was maintained on prednisone and Myfortic 720 milligrams two times per day. This Thursday, she started to get weak, lightheaded, and states her blood pressures were running low. She thought she was keeping up with her fluids. She states she was drinking juices, coffee, and Ensure. She thinks based on how she is feeling now, she might have not been keeping up on her fluids as much as she thought she would. She has been eating and has a good appetite; however, she states she gets full very easily. She states this is nothing new, as it was also present prior to transplant. She cannot recall her exact blood pressure; however, does not recall them ever getting higher than 140 systolic. Since she was pretty hypertensive during the hospital stay and this was thought to be contributing to TMA, she was discharged on Metoprolol 75 milligrams two times per day, Norvasc 10 milligrams, and clonidine 0.1 milligrams daily. The clonidine was stopped on March 02 due to lowered blood pressures, and her is pretty sure he took this out of her pill box. [facility] came out to get laboratories today and took her blood pressure, and it was reportedly 80's to 90's over 40's. It was unclear if this was orthostatic vital signs; however, the patient recalls that she took her blood pressure like this from when she went from sitting to standing. She does not have any lightheadedness lying still. She feels like her legs are weak. On discussion, her also mentioned that she had chest pain this morning that radiated down her left arm into her neck. However, on further discussion when asked how long she has been having chest pain, she says since the age of 27. She states she has seen multiple doctors to determine the etiology of this chest pain; however, no cause has been found. She had a stress test at the end of January which was negative for ischemia. She also underwent a cardiac catheterization in October of 2008 because of this atypical chest pain, which showed 30% circumflex lesion and a 40% right coronary artery lesion with a normal ejection fraction. She also underwent an upper endoscopy September,, which was consistent with Schatzki's ring and a hiatal hernia. She states the pain most commonly comes when her blood pressures are lower. She usually chews three baby aspirin, and the pain resolves. Today when she had this pain, she was not able to get to her aspirin, so the pain lasted approximately 15 minutes. She has no associated dyspnea or diaphoresis. She denies any fevers or chills. She continues to make good urine output. She did start her Prograf 1 mg daily on March 02 with the plan to measure LDH closely for any evidence of hemolysis. She was also found to have metabolic acidosis on labs on February 28 and due to concerns of not keeping up with fluid intake, received 1 liter of fluids with 3 amps of sodium bicarbonate on March 03. PAST MEDICAL AND SURGICAL HISTORY: 1. 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 2. Status post pediatric DCD kidney on February 10, 2013. Operating surgeon was Dr. Mahmood. This was a 2A, 1B, 1DR mismatch, CMV +/-. She received Thymoglobulin induction at 50 milligrams / 100 milligrams / 100 milligrams. Her postoperative course was complicated by hemolytic anemia and it was thought that her hypertension was causing thrombotic microangiopathy. She also had chest x-ray with evidence of pulmonary edema and concern for pneumonia. She was started on broad spectrum antibiotics with vancomycin and cefepime. She was switched from cefepime to moxifloxacin, since they thought cefepime could have been contributing to TMA as well. She had a positive mycoplasma antibody so these antibiotics were discontinued, and azithromycin was started. 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 VRQDTD20 level was remarkable for a low level of 51. She received a total of 5 units of packed red blood cells and 1 gram of INFed during her hospitalization. She did receive hemodialysis x 1 due to hyperkalemia and plasmapheresis once. Discharge creatinine 1.29. 3. Hypertension. 4. Hypothyroidism. 5. Varicella zoster at the S1 dermatome with subsequent post herpetic neuralgia for which she takes Amitriptyline 25 milligrams at bedtime. 6. 3, para 2, spontaneous of 1. 7. Minimal coronary artery disease with 30% circumflex lesion and a 40% right coronary artery lesion, catheterization October, with normal ejection fraction. 8. History of primary hyperparathyroidism, status subtotal parathyroidectomy in 1994. 9. Status post left upper extremity arteriovenous graft complicated by thrombosis requiring thrombectomy and venous angioplasty. 10. Right lower leg vein ligation. 11. Plastic surgery for a fractured nose. 12. Positive mycoplasma IgG antibody found during hospitalization for transplant. Received Azithromycin. 13. Serologic evidece of prior hepatitis B infection per laboratorties with positive hepatitis B core antibody. HBV DNA < 29 in 04/2010. MEDICATIONS: 1. Metoprolol 75 milligrams two times per day. 2. Myfortic 725 milligrams two times per day. 3. Norvasc 10 milligrams every day. 4. Amitriptyline 25 milligrams at bedtime. 5. Aspirin 81 milligrams every day. 6. Vitamin D 2,000 international units every day. 7. Senokot-S one tablet two times per day for constipation. 8. Pepcid 20 milligrams every day. 9. Fluconazole 200 milligrams weekly on Thursday. 10. Synthroid 100 micrograms every day. 11. Valganciclovir 450 milligrams every day. 12. Bactrim double strength tablet every day. ALLERGIES: Tetracycline, Keflex, and Macrobid caused a rash. Codeine causes a headache. SOCIAL HISTORY: She is and lives at home with her . 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 She denies history of tobacco, alcohol, or illicit drug use. She has no tattoos or body piercing. She received transfusion in 2009 and then multiple transfusions during recent hospitalization. FAMILY HISTORY: Father at the age of 63 of heart disease. Mother at 67 of pancreatic cancer. She has one sister of 82 and has had a colon cancer. One brother of 68 and was recently diagnosed with diabetes. She has a daughter, age 47, with diabetes, and a daughter, age 41, who is alive and well. She thinks her grandmother had kidney disease. REVIEW OF SYSTEMS: Review of systems as per history of present illness. All other systems negative. PHYSICAL EXAMINATION: Vital Signs: Blood pressure 128/73. Temperature 97.3. Pulse 72. Respiratory rate 16. Oxygen saturation 99% on room air. Weight 46.6 kilograms. Height 52 inches. Constitutional: In general, well-appearing, fatigued, white female in no acute distress. HEENT / Neck: Normocephalic and atraumatic. Pupils equal and round and reactive to light. Sclerae are anicteric. Mucous membranes are moist without thrush. Neck is supple with no lymphadenopathy, thyromegaly, or carotid bruits. No jugular venous distention. Chest: Cardiovascular: Regular rate and rhythm. Normal S1 and S2. 2/6 murmur that improves with compression of left AV fistula. Lungs: Clear to auscultation bilaterally. There are no adventitious sounds. Abdomen: Normoactive bowel sounds. Soft, nontender, and nondistended. Right lower quadrant of abdomen tender without bruits. Extremities: No lower extremity edema. Left upper arm arteriovenous graft with positive thrill and bruit. Skin: No rashes or lesions. LABORATORY AND X-RAY DATA: Laboratory data from March 08, 2013 (these laboratories were done as an outpatient request): Sodium 131. Potassium 5.3. Chloride 106. Glucose 140. Bicarbonate 15. Creatinine 1.50. Calcium 10.5. Phosphorus 1.9. Magnesium 1.6. Laboratories from February 28: Hemoglobin 10.2. White blood cell count 6. Platelets 209. Hematocrit 31.5. Tacrolimus level from February 25 is less than 1. ASSESSMENT AND PLAN: Ms. Dunlap is a 77-year-old white female with history of P-ANCA vasculitis, status post pediatric donor after cardiac renal transplant on February 10, 2013, admitted for hypotension and failure to thrive. 1. Hypotension. She likely has orthostatic hypotension from volume depletion and antihypertensive agents. We will get orthostatic fall signs. We will place her on fall risk precautions. We will decrease her metoprolol rather than stop her metoprolol to avoid withdrawal.I will stop norvasc. Will give 1 liter of sterile water with 3 amps of sodium bicarbonate for fluids and treatment of her acidosis. 2. Non-anion gap metabolic acidosis. She is not having any diarrhea. We will get urine electrolytes and urinalysis to further evaluate. I will start sterile water with 3 ampules of sodium bicarbonate. 3. Immunosuppression status post donor allograft. She was recently started on Tacrolimus at 1 milligram daily to see if she tolerated this. As stated above, it was thought that this could have been contributing to her TMA. We will monitor LDH, haptoglobin, and evaluate peripheal smear for schistocytes. If she tolerates tacrolimus then we will increase this further while monitoring for hemolysis. I will hold tacrolimus today, as we do not have a recent level since starting Prograf. Will decrease Myfortic to 360 mg bid due to leukopenia. Continue prednisone unchanged. Her next dose of belatacept was scheduled for March 14. 4. Atypical chest pain. She recently had a stress test in January that was negative for ischemia. This has been going on for over 25 years, and the etiology has not been found thus far. However, since her chest pain has been present three times over the past week, I will evaluate with an electrocardiogramand troponin levels times two. 5. Hypertension. We will decrease Metoprolol to 50 milligrams two times per day and stop Norvasc. 6. Hypothyroidism. Continue levothyroxine. I will get a thyroid stimulating hormone and free T4 to see if this could be contributing to her fatigue and weakness. 7. Access. She has a right wallace cather placed. Will get a chest x-ray to confirm placement. 8. Infectious disease prophylaxis. Continue Valcyte and Bactrim. She has completed fluconazole course. Reviewed by Camille Escobar PA-C 03/13/2013 02:52 P Camille Escobar PA-C Edited and Electronically Signed By Raghav Hart M.D. 03/31/2013 10:50 A Raghav Hart M.D. [place]/[facility] #[id number] Editing MT: TD: 03/08/2013 19:42:00 cc: MUSHTAQ Moon M.D. David M. Margolis, M.D. Suresh Mathew, M.D. Mark S. Pelikan, D.O. Jason Reid Wellen, M.D. documented in this encounter Plan of Treatment Not on file documented as of this encounter Procedures Procedure Name Priority Date/Time Associated Diagnosis Comments US RETROPERITONEAL LIMITED Routine 03/11 2:03 PM CDT URINE SODIUM Routine 03/11/2013 12:13 PM CDT URINE POTASSIUM Routine 03/11/2013 12:13 PM CDT URINE CHLORIDE Routine 03/11/2013 12:13 PM CDT CYTOMEGALOVIRUS (CMV) PCR, CDR Routine 03/11/2013 12:12 PM CDT CRITICAL RESULT CALL BACK Routine 2012 12:12 PM CDT BLOOD GAS, ARTERIAL Routine 03/11/2013 1 2:12 PM CDT BLOOD TACROLIMUS (FK-506), TROUGH DRUG LEVEL Routine 03/11/2013 8:51 AM CDT URINE IMMUNOFIXATION ELECTROPHORESIS Routine 03/11/2013 4:41 AM CDT SERUM LACTATE DEHYDROGENASE (LDH) Routine 03/11/2013 4:41 AM CDT SERUM HAPTOGLOBIN Routine 03/11/2013 4:4 1 AM CDT PLASMA RENAL PANEL Routine 03/11/2013 4: 41 AM CDT BLOOD TACROLIMUS (FK-506), TROUGH DRUG LEVEL Routine 03/11/2013 4:41 AM CDT BLOOD CELL COUNT (CBC) Routine 3 4:41 AM CDT ALL MICROBIOLOGY REPORT SECTION Routine 03/11/2013 12:00 AM CDT DISCHARGE LABORATORY CUMULATIVE REPORT Routine 03/11/2013 12:00 AM CDT URINALYSIS Routine 03/10/2013 6:06 PM CDT SERUM PROTEIN ELECTROPHORESIS Routine 03/10/2013 4:53 AM CDT SERUM LACTATE DEHYDROGENASE (LDH) Routine 03/10/2013 4:53 AM CDT SERUM IMMUNOGLOBIN FREE LIGHT CHAIN (FLC) Routine 03/10/2013 4:53 AM CDT SERUM IMMUNOFIXATION ELECTROPHORESIS Routine 03/10/2013 4:53 AM CDT SERUM HAPTOGLOBIN Routine 03/10/2013 4:5 3 AM CDT PLASMA BASIC METABOLIC PANEL Routine 03/10/2013 4:53 AM CDT BLOOD TACROLIMUS (FK-506), TROUGH DRUG LEVEL Routine 03/10/2013 4:53 AM CDT BLOOD CELL COUNT (CBC) Routine 3 4:53 AM CDT URINE URIC ACID Routine 03/10/2013 4:25 AM CDT URINE SODIUM Routine 2013 6:49 AM CDT URINE POTASSIUM Routine 2013 6:49 AM CDT URINE MICROSCOPY Routine 2013 6:49 AM CDT URINE CREATININE Routine 2013 6:49 AM CDT URINE CHLORIDE Routine 2013 6:49 AM CDT URINALYSIS Routine 2013 6:49 AM CDT SERUM URIC ACID Routine 2013 4:36 AM CDT SERUM THYROXINE (T4), FREE Routine 03/09 4:36 AM CDT SERUM THYROID-STIMULATING HORMONE (TSH) Routine 2013 4:36 AM CDT SERUM GAMMA-GLUTAMYL TRANSFERASE (GGT) Routine 2013 4:36 AM CDT PLASMA PHOSPHORUS Routine 2013 4:3 6 AM CDT PLASMA COMPREHENSIVE METABOLIC PANEL Routine 2013 4:36 AM CDT BLOOD TACROLIMUS (FK-506), TROUGH DRUG LEVEL Routine 2013 4:36 AM CDT BLOOD CELL COUNT (CBC) Routine 3 4:36 AM CDT BLOOD CELL MORPHOLOGIC EXAM Routine 2013 4:36 AM CDT URINE PROTEIN Routine 2013 12:59 AM CDT SERUM TROPONIN I Routine 03/08/2013 11:4 8 PM CDT PLASMA BASIC METABOLIC PANEL Routine 03/08/2013 11:48 PM CDT SERUM TROPONIN I Routine 03/08/2013 6:00 PM CDT SERUM LACTATE DEHYDROGENASE (LDH) Routine 03/08/2013 6:00 PM CDT SERUM HAPTOGLOBIN Routine 03/08/2013 6:0 0 PM CDT PLASMA PROTHROMBIN TIME (PT) Routine 03/08/2013 6:00 PM CDT PLASMA PARTIAL THROMBOPLASTIN TIME (PTT) Routine 03/08/2013 6:00 PM CDT BLOOD CELL COUNT (CBC) Routine 3 6:00 PM CDT XR CHEST 1 VIEW Routine 03/08/2013 4:06 PM CDT ELECTROCARDIOGRAPHY (ECG) 03/08/2013 documented in this encounter Results * US Retroperitoneal Limited (03/11/2013 2:03 PM CDT) Anatomical Region Laterality Modality Abdomen N/A Ultrasound 03/11/2013 2:03 PM CDT Narrative 03/11/2013 2:54 PM CDT AMADOR CHAVEZ M.D. RAJIV SAMANO M.D. FINAL REPORT The radiology attending physician has personally reviewed this study, and has reviewed and/or edited this written report and agrees with it. ACC# ??Date Time ??Exam [id number] Mar 11, 2013 14:03:00 [id number] [employer] [facility] EXAMINATION: ?COMPLETE RENAL SONOGRAM HISTORY: 78-year-old woman a history of kidney transplantation on 02/10/2013 with elevated creatinine FINDINGS: The transplant kidney appears normal. There is no hydronephrosis. Color Doppler and spectral analysis were used to evaluate the renal vasculature. There is normal venous and arterial flow at the renal hilum. There is normal waveform morphology. The resistive indices within the renal parenchyma are unchanged compared prior ranging from 0.74 to 0.78. The bladder is decompressed. Viridiana Dobbins PA-C also participated in this study. IMPRESSION: ?? 1. Normal right transplant kidney without hydronephrosis. 2. Resistive indices within the renal parenchyma are within the normal range, unchanged. Requested By: CAMILLE ESCOBAR PA-C Dictated By: ?? RAJIV SAMANO M.D. ??on Mar ??2012 ??2:30P This document has been electronically signed by: AMADOR CHAVEZ M.D. on Mar ??2012 ??2:54P Procedure Note Provider, MD Diego - 10/30/2016 AMADOR CHAVEZ M.D. RAJIV SAMANO M.D. FINAL REPORT The radiology attending physician has personally reviewed this study, and has reviewed and/or edited this written report and agrees with it. ACC# Date Time Exam [id number] Mar 11, 2013 14:03:00 [id number] [employer] EXAMINATION: COMPLETE RENAL SONOGRAM HISTORY: 78-year-old woman a history of kidney transplantation on 02/10/2013 with elevated creatinine FINDINGS: The transplant kidney appears normal. There is no hydronephrosis. Color Doppler and spectral analysis were used to evaluate the renal vasculature. There is normal venous and arterial flow at the renal hilum. There is normal waveform morphology. The resistive indices within the renal parenchyma are unchanged compared prior ranging from 0.74 to 0.78. The bladder is decompressed. Viridiana Dobbins PA-C also participated in this study. IMPRESSION: 1. Normal right transplant kidney without hydronephrosis. 2. Resistive indices within the renal parenchyma are within the normal range, unchanged. Requested By: CAMILLE ESCOBAR PA-C Dictated By: RAJIV SAMANO M.D. on Mar 11 2013 2:30P This document has been electronically signed by: AMADOR CHVAEZ M.D. on Mar 11 2013 2:54P Result [facility] Historical Provider IMG US PROCEDURES Final R esult * Urine sodium (03/11/2013 12:13 PM CDT) Sodium, ur 146 mmol/L HISTORICA L RESULTS Urine 03/11/2013 12:1 3 PM CDT Result [facility] Historical Provider LAB BLOOD ORDERABLES Paty l Result Performing Organization Address [facility] de Phone Number HISTORICAL RESULTS * Urine potassium (03/11/2013 12:13 PM CDT) Potassium, ur 46 mmol/L HISTOR ICAL RESULTS Urine 03/11/2013 12:1 3 PM CDT Result [facility] Historical Provider LAB BLOOD ORDERABLES Paty l Result Performing Organization Address [facility] Co de Phone Number HISTORICAL RESULTS * Urine chloride (03/11/2013 12:13 PM CDT) Chloride, ur 72 mmol/L HISTORI CHANO RESULTS Urine 03/11/2013 12:1 3 PM CDT Result [facility] Historical Provider LAB BLOOD ORDERABLES Paty l Result Performing Organization Address [facility] Co de Phone Number HISTORICAL RESULTS * Cytomegalovirus (CMV) PCR (03/11/2013 12:12 PM CDT) Blood specimen (specimen) (Unknown) 03/11/2013 12:12 PM CDT 03/11/2013 1:30 PM CDT Impressions HISTORICAL RESULTS - 03/12/2013 8:17 AM CDT This assay is based on quantitative real-time PCR. ??The primers used amplify a conserved 61 bp region of the DNA polymerase gene of human CMV. ??Based on data from the [facility], these primers do not amplify any of the other seven human herpes viruses or human DNA sequences. ??It is thought that close to 100% of CMV strains will amplify with these primers, although genotypic sequence variations could result in a false negative result. This assay expresses results in units of CMV genome copies per ml of blood. ??The theoretical lower limit of detection of the assay is 200 copies/ml. ??The assay is accurate for quantitation in the range 2,000-1,250,000 genome copies/ml. ??Specimens found to have detectable CMV DNA beneath the level of accurate quantitation are reported as CMV DNA detected. ??Unable to quantitate because the level of viral DNA is below the level of accurate quantitation (<2,000 copies/ml) . ??If the specimen is found to be positive with greater than 1,250,000 genome copies/ml, a preliminary report is issued stating Positive: >1,250,000 copies/ml , and the specimen is subsequently retested after dilution to determine the actual copy number. Currently, there are no accepted standards for correlating specific copy numbers with CMV disease. ??Studies in our laboratory have shown that the quantitative assay is more sensitive than the qualitative PCR and the shell vial culture methods previously employed. ??In these studies, positive results ranged from 600 to 35,000,000 copies/ml. ??When the quantitative assay was positive but below the level of accurate quantitation, the qualitative PCR and culture assays were usually negative. ??At a level of 4,000 copies/ml, approximately 50% of qualitative PCR assays were positive. ??In these evaluations, the shell vial culture was only positive at levels above 15,000 copies/ml. General Comments: This test was developed and its performance characteristics determined by [facility]. ??It has not been cleared or approved by the U.S. Food and Drug Administration. ?? Current interpretive data was last revised on 2009. Narrative HISTORICAL RESULTS - 03/12/2013 8:17 AM CDT Negative (<200 copies/ml) Historical Provider MD LAB MICROBIOLOGY - GENERA L ORDERABLES Final Result HISTORICAL RESULTS * Critical result call back (03/11/2013 12:12 PM CDT) Date notified 03/11/2013 HISTO RICAL RESULTS Time notified 1347 HISTOR ICAL RESULTS Test name pO2 Art HISTORICAL RESULTS Called to Logan ECHOLS L RESULTS Credentials RN HISTORIC AL RESULTS Called by GREGORIO HISTORICAL RESULTS No specimen 03/11/2013 12:1 2 PM CDT Historical Provider LAB BLOOD ORDERABLES Paty l Result Performing Organization Address City/[facility] Co de Phone Number HISTORICAL RESULTS * (ABNORMAL) Blood gas, arterial (03/11/2013 12:12 PM CDT) Ph, art 7.31(L) 7.35 - 7.45 HISTORICAL RESULTS PCO2 43 35 - 45 mm Hg HISTORICAL RESULTS PO2, art 39(C) 80 - 105 mm Hg HISTORICAL RESULTS CO2, calc, art 22 21 - 30 mmol/L HISTORICAL RESULTS A-a gradient Not Applicable mm Hg HI STORICAL RESULTS O2, inspired, %, art Not Applicable % HISTORICAL RESULTS Oxygen (O2), inspired fraction (FiO2) Not Applicable liters HISTORICAL RESULTS Arterial blood 03/11/2013 12 :12 PM CDT Historical Provider MD LAB BLOOD ORDERABLES Paty l Result HISTORICAL RESULTS * Blood tacrolimus (FK-506), trough drug level (03/11/2013 8:51 AM CDT) Tacrolimus, trough 3.5 ng/ml H ISTORICAL RESULTS Comment: Interpretive Data This test was developed using an analyte specific reagent. ??Its performance characteristics were determined by the [facility] in a manner consistent with CLIA requirements. This test has not been cleared or approved by the U.S. Food and Drug Administration. Current interpretive data was last revised on 2011. Blood specimen (specimen) 03/11/2013 8:51 AM CDT Historical Provider LAB BLOOD ORDERABLES Paty l Result Performing Organization Address [facility] de Phone Number HISTORICAL RESULTS * (ABNORMAL) Serum lactate dehydrogenase (LDH) (03/11/2013 4:41 AM CDT) Lactate dehydrogenase (LDH) 255(H) 100 - 250 Units/L HISTORICAL RESULTS Serum 03/11/2013 4:41 AM CDT Historical Provider LAB BLOOD ORDERABLES Paty l Result Performing Organization Address [facility] de Phone Number HISTORICAL RESULTS * Serum haptoglobin (03/11/2013 4:41 AM CDT) Haptoglobin 49.3 27.0 - 220.0 mg/dl HISTORICAL RESULTS Serum 03/11/2013 4:41 AM CDT [facility] Provider LAB BLOOD ORDERABLES Paty l Result Performing Organization Address [facility] de Phone Number HISTORICAL RESULTS * (ABNORMAL) Blood cell count (CBC) (03/11/2013 4:41 AM CDT) WBC 2.7(L) 3.8 - 9.8 K/cumm HISTORICAL RESULTS RBC 3.05(L) 3.90 - 5.00 M/cumm HISTORICAL RESULTS Hgb 9.5(L) 12.1 - 15.1 g/dl HISTORICAL RESULTS Hct 28.1(L) 36.1 - 44.3 % HISTORICAL RESULTS MCV 92.2 80.0 - 97.6 fl HISTORICAL RESULTS MCH 31.2 26.7 - 33.7 pg HISTORICAL RESULTS MCHC 33.8 32.7 - 35.5 g/dl HISTORICAL RESULTS Rdw 19.4(H) 11.8 - 14.6 % HISTORICAL RESULTS Platelets 141 140 - 440 K/cumm HISTORICAL RESULTS MPV 8.2 6.8 - 10.4 fl HISTORICAL RESULTS Neutrophils 81.1(H) 38.7 - 74.5 % HISTORICAL RESULTS Lymphocytes 11.9(L) 20.0 - 54.3 % HISTORICAL RESULTS Monos 4.2(L) 4.3 - 13.5 % HISTORICAL RESULTS Eosinophils 0.6 0.0 - 6.0 % HISTORICAL RESULTS Basophils 2.2 0.0 - 3.0 % HISTORICAL RESULTS Neutrophils, abs 2.2 1.8 - 6.6 K/cumm HISTORICAL RESULTS Lymphocytes, abs 0.3(L) 1.2 - 3.3 K/cumm HISTORICAL RESULTS Monocytes, absolute 0.1(L) 0.2 - 1.2 K/cumm HISTORICAL RESULTS Eosinophils, abs 0.0 0.0 - 0.5 K/cumm HISTORICAL RESULTS Basophils, abs 0.1 0.0 - 0.2 K/cumm HISTORICAL RESULTS Blood specimen (specimen) 03/11/2013 4:41 AM CDT Historical Provider LAB BLOOD ORDERABLES Paty l Result HISTORICAL RESULTS * (ABNORMAL) Plasma renal panel (03/11/2013 4:41 AM CDT) Sodium 135 135 - 145 mmol/L HISTORICAL RESULTS K, pl 4.8 3.3 - 4.9 mmol/L HISTORICAL RESULTS Chloride 110 97 - 110 mmol/L HISTORICAL RESULTS CO2 16(L) 22 - 32 mmol/L HISTORICAL RESULTS A. gap 9 0 - 16 mmol/L HISTORICAL RESULTS Glucose 79 70 - 199 mg/dl HISTORICAL RESULTS BUN 20 8 - 25 mg/dl HISTORICAL RESULTS Creatinine 1.12(H) 0.60 - 1.10 mg/dl HISTORICAL RESULTS Calcium 9.6 8.6 - 10.3 mg/dl HISTORICAL RESULTS Phosphorus, pl 1.4(L) 2.3 - 4.3 mg/dl HISTORICAL RESULTS Alb 3.8 3.6 - 5.0 g/dl HISTORICAL RESULTS Plasma 03/11/2013 4:41 AM CDT Historical Provider LAB BLOOD ORDERABLES Paty l Result Performing Organization Address [facility] de Phone Number HISTORICAL RESULTS * Blood tacrolimus (FK-506), trough drug level (03/11/2013 4:41 AM CDT) [facility] Tacrolimus, trough 3.9 ng/ml H ISTORICAL RESULTS Comment: Interpretive Data This test was developed using an analyte specific reagent. ??Its performance characteristics were determined by the [facility] in a manner consistent with CLIA requirements. This test has not been cleared or approved by the U.S. Food and Drug Administration. Current interpretive data was last revised on 2011. Blood specimen (specimen) 03/11/2013 4:41 AM CDT Historical Provider MD LAB BLOOD ORDERABLES Paty l Result Performing Organization Address [facility] de Phone Number HISTORICAL RESULTS * Urine immunofixation electrophoresis (03/11/2013 4:41 AM CDT) [facility] Immunofixatio n, ur No monoclonal protein detected HISTORICAL RESULTS Urine 03/11/2013 4:41 AM CDT Historical Provider MD LAB BLOOD ORDERABLES Paty l Result Performing Organization Address [facility] de Phone Number HISTORICAL RESULTS * Discharge Laboratory Cumulative Report (03/11/2013 12:00 AM CDT) 03/11/2013 Narrative HISTORICAL RESULTS - 03/14/2013 11:18 AM CDT ?[facility] ?Department of Laboratories ? [address] [facility] [address] ? [place] [address] Patient Name: ??AMANDA DUNLAP [facility] Rec Number: [id number] Fin Number: ?[id number] Date: ?1935 Sex/Age: ? Female 78 years Admit Date: ?03/08/2013 Discharge Date: 03/11/2013 Doctor: ?Raghav Hart Facility: ?[facility] Location: ?OTHER Chart Printed: 03/14/2013 11:18 ?? * Abnormal ?? C Critical ?? f Footnote ?? ^ Corrected ?? L Low ?? H High ? i Interp Data ?? @ Reference Lab ?Chart Type:Cumulative ?BLOOD GASES ? Arterial Blood Gases ?Test: pH ? pCO2 ? pO2 ? Total CO2 ? Reference: [7.35-7.45] ??[35-45] ??[80-105] ??[21-30] ? Units: ?mmHg ? mmHg ?mmol/L 03/11/2013 ?? 12:12:00 ?? 7.31 ??L ?43 ? 39 ??C ? 22 ?Test: A-a Gradient ?% iO2 Art ? Vol iO2 Art ? Reference: ? Units: mmHg ?% ? L 03/11/2013 ?? 12:12:00 ?? Not Applicable ??Not Applicable ??Not Applicable ? SELECTED ELECTROLYTES ?Test: Sodium ? Plasma Potassium ??Chloride ? Reference: [135-145] ??[3.3-4.9] ? [97-110] ? Units: mmol/L ? mmol/L ?mmol/L 03/11/2013 ?? 04:41:00 ?? 135 ?4.8 ? 110 03/10/2013 ?? 04:53:00 ?? 136 ?4.4 ? 109 2013 ?? 04:36:00 ?? 137 ?4.2 ? 104 03/08/2013 ?? 23:48:00 ?? 135 ?4.4 ? 102 ?Test: Total CO2 ??Anion Gap ? Reference: [22-32] ?[0-16] ? Units: mmol/L ? mmol/L 03/11/2013 ?? 04:41:00 ?? 16 ??L ?9 03/10/2013 ?? 04:53:00 ?? 19 ??L ?8 2013 ?? 04:36:00 ?? 22 ? 11 03/08/2013 ?? 23:48:00 ?? 22 ? 11 ? STANDARD BLOOD CHEMISTRY ?Test: BUN ? Creatinine ?? Total Bilirubin ? Reference: [8-25] ??[0.60-1.10] ??[0.3-1.1] ? Units: mg/dL ?? mg/dL ?mg/dL 03/11/2013 ?? 04:41:00 ?? 20 ?1.12 ??H 03/10/2013 ?? 04:53:00 ?? 26 ??H ?? 1.35 ??H 2013 ?? 04:36:00 ?? 27 ??H ?? 1.29 ??H ?0.3 03/08/2013 ?? 23:48:00 ?? 30 ??H ?? 1.30 ??H ?Test: Uric Acid ??Glucose ?? Total Calcium ? Reference: [2.5-7.5] ??[70-199] ??[8.6-10.3] ? Units: mg/dL ?mg/dL ? mg/dL 03/11/2013 ?? 04:41:00 ?79 ?9.6 03/10/2013 ?? 04:53:00 ?84 ?9.3 2013 ?? 04:36:00 ?? 1.9 ??L ? 86 ?10.0 03/08/2013 ?? 23:48:00 ?86 ?9.9 ?Test: Plasma Phosphorus ??Plasma Total Protein ? Reference: [2.3-4.3] ?[6.5-8.5] ? Units: mg/dL ?g/dL 03/11/2013 ?? 04:41:00 ?? 1.4 ??L 2013 ?? 04:36:00 ?? 1.7 ??L ? 6.3 ??L ?Test: Albumin ? Reference: [3.6-5.0] ? Units: g/dL 03/11/2013 ?? 04:41:00 ?? 3.8 2013 ?? 04:36:00 ?? 4.1 ?ENZYMES ?Test: Alkaline Phosphatase ? Reference: [38-126] ? Units: Units/L 2013 ?? 04:36:00 ?? 172 ??H ?Test: Gamma Glutamyl Transferase ??ALT ?AST ? Reference: [7-32] ?[7-53] ?? [11-47] ? Units: Units/L ? Units/L ??Units/L 2013 ?? 04:36:00 ?? 18 ?14 ? 17 ?Test: Total LD ? Reference: [100-250] ? Units: Units/L 03/11/2013 ?? 04:41:00 ?? 255 ??H 03/10/2013 ?? 04:53:00 ?? 228 03/08/2013 ?? 18:00:00 ?? 294 ??H ? CARDIAC PROTEINS ?Test: Troponin I i ? Reference: [0.00-0.24] ? Units: ng/mL 03/08/2013 ?? 23:48:00 ?? <0.07 03/08/2013 ?? 18:00:00 ?? <0.07 03/08/2013 18:00:00 Troponin I: Interpretive Data Normal Range: <0.07 ng/mL: Negative 0.07 - 0.24 ng/mL: Elevated, may be consistent with Myocardial Injury/Ischemia but is nondiagnostic and of equivocal significance. Consider obtaining additional Troponin values. (JAM Dave Cardiol 2000; 36:959. Circulation 2000; 102: 1193., 2002; 106: 1893., 2003: 108: 2543) Greater than or equal to 0.25 ng/mL: Positive Troponin, suggest establishing rising or falling pattern and evidence of Cardiac Ischemia for consideration of Myocardial Infarction. Current interpretive data was last revised on 2007. ?BLOOD HORMONES ?Test: TSH i ?Free T4 (Free Thyroxine) ? Reference: [0.35-5.50] ??[0.90-1.80] ? Units: mcIUnit/mL ?? ng/dL 2013 ?? 04:36:00 ?? 12.29 ??H ? 1.22 2013 04:36:00 TSH: Interpretive Data Hyperthyroid: ??<0.1 mcIUnit/mL Hypothyroid: ??>12.0 mcIUnit/mL Current interpretive data was last revised on 00. ? QUANTITATIVE URINE CHEMISTRY ?Test: Random Urine Sodium ??Random Urine Potassium ? Reference: ? Units: mmol/L ? mmol/L 03/11/2013 ?? 12:13:00 ?? 146 ?46.0 2013 ?? 06:49:00 ?? 97 ? 30.3 ?Test: Random Urine Chloride ??Random Urine Creatinine ? Reference: ? Units: mmol/L ? mg/dL 03/11/2013 ?? 12:13:00 ?? 72 2013 ?? 06:49:00 ?? 49 ? 41.53 ?Test: Random Urine Uric Acid ??Random Urine Protein i ? Reference: ? Units: mg/dL ? mg/dL 03/10/2013 ?? 04:25:00 ?? 19.0 ? QUANTITATIVE URINE CHEMISTRY ?Test: Random Urine Uric Acid ??Random Urine Protein i ? Reference: ? Units: mg/dL ? mg/dL 2013 ?? 00:59:00 ? 17.7 2013 00:59:00 Random Urine Protein: Interpretive Data Urine protein values from patients receiving aminoglycosides may be falsely elevated. Current interpretive data was last revised on 05. ?DRUG LEVELS ?Test: Tacrolimus, Tr i ? Reference: ? Units: ng/mL 03/11/2013 ?? 08:51:00 ?? 3.5 03/11/2013 ?? 04:41:00 ?? 3.9 03/10/2013 ?? 04:53:00 ?? 2.4 2013 ?? 04:36:00 ?? 1.0 2013 04:36:00 Tacrolimus, Tr: Interpretive Data This test was developed using an analyte specific reagent. ??Its performance characteristics were determined by the [facility] in a manner consistent with CLIA requirements. ??This test has not been cleared or approved by the U.S. Food and Drug Administration. Current interpretive data was last revised on 2011. ?URINALYSIS ?Macroscopic ?Test: Color ? Clarity ?Specific [place] ? Reference: [Yellow] ?[Clear] ?[1.003-1.030] ? Units: 03/10/2013 ?? 18:06:00 ?? Light-Yellow ??Cloudy ??* ??1.010 2013 ?? 06:49:00 ?? Light-Yellow ??Clear ?1.012 ?Test: pH ? Albumin ??Glucose ? Ketones ? Reference: [5.0-8.0] ??[Trace] ??[Negative] ??[Negative] ? Units: 03/10/2013 ?? 18:06:00 ?? 7.0 ?Trace ?4+ ??* ? Negative 2013 ?? 06:49:00 ?? 7.0 ?Trace ?1+ ??* ? Negative ?Test: Bilirubin ?? Blood ? Urobilinogen ? Reference: [Negative] ??[Negative] ??[0.0-2.0] ? Units: ? mg/dL 03/10/2013 ?? 18:06:00 ?? Negative ?2+ ??* ? <2.0 2013 ?? 06:49:00 ?? Negative ?2+ ??* ? <2.0 ?URINALYSIS ?Macroscopic ?Test: Nitrite ? Leuk Esterase ? Reference: [Negative] ??[Negative] ? Units: 03/10/2013 ?? 18:06:00 ?? Negative ?Negative 2013 ?? 06:49:00 ?? Negative ?Negative ?Microscopic ?Test: RBC Ur ??WBC Ur ??Bacteria Ur ??Epithl Renl Ur ? Reference: [0-3] ?? [0-5] ?? [Trace] ?[0-0] ? Units: /HPF ?/HPF ? /HPF 2013 ?? 06:49:00 ?? 21 ??H ?? 2 ? Trace ?0 ? COMPLETE BLOOD COUNT ?Test: WBC ?RBC ?Hgb ? Reference: [3.8-9.8] ??[3.90-5.00] ??[12.1-15.1] ? Units: K/cumm ? M/cumm ? g/dL 03/11/2013 ?? 04:41:00 ?? 2.7 ??L ? 3.05 ??L ?9.5 ??L 03/10/2013 ?? 04:53:00 ?? 2.8 ??L ? 3.11 ??L ?9.6 ??L 2013 ?? 04:36:00 ?? 2.6 ??L ? 3.50 ??L ?10.9 ??L 03/08/2013 ?? 18:00:00 ?? 3.3 ??L ? 3.79 ??L ?11.5 ??L ?Test: Hct ?Platelet Ct ??MCV ? Reference: [36.1-44.3] ??[140-440] ?[80.0-97.6] ? Units: % ?K/cumm ? fL 03/11/2013 ?? 04:41:00 ?? 28.1 ??L ?141 ?92.2 03/10/2013 ?? 04:53:00 ?? 29.1 ??L ?148 ?93.5 2013 ?? 04:36:00 ?? 32.5 ??L ?183 ?92.9 03/08/2013 ?? 18:00:00 ?? 35.6 ??L ?207 ?93.8 ?Test: MCH ?MCHC ? RDW ? Reference: [26.7-33.7] ??[32.7-35.5] ??[11.8-14.6] ? Units: pg ? g/dL ? % 03/11/2013 ?? 04:41:00 ?? 31.2 ? 33.8 ? 19.4 ??H 03/10/2013 ?? 04:53:00 ?? 30.9 ? 33.0 ? 19.7 ??H 2013 ?? 04:36:00 ?? 31.0 ? 33.4 ? 19.3 ??H 03/08/2013 ?? 18:00:00 ?? 30.4 ? 32.4 ??L ?19.5 ??H ?Test: MPV ? Reference: [6.8-10.4] ? Units: fL 03/11/2013 ?? 04:41:00 ?? 8.2 03/10/2013 ?? 04:53:00 ?? 8.1 2013 ?? 04:36:00 ?? 8.0 03/08/2013 ?? 18:00:00 ?? 8.6 ? AUTOMATED WHITE CELL DIFFERENTIAL ?Test: Neut Pct Auto ??Lymph Pct Auto ??[place] Pct Auto ? Reference: [38.7-74.5] ?[20.0-54.3] ? [4.3-13.5] ? Units: % ?% ? % 03/11/2013 ?? 04:41:00 ?? 81.1 ??H ?11.9 ??L ? 4.2 ??L 03/10/2013 ?? 04:53:00 ?? 78.5 ??H ?13.2 ??L ? 5.1 2013 ?? 04:36:00 ?? 75.0 ??H ?17.6 ??L ? 4.0 ??L 03/08/2013 ?? 18:00:00 ?? 84.7 ??H ?8.5 ??L ?3.7 ??L ?Test: Eos Pct Auto ??Baso Pct Auto ??Neut Abs Auto ? Reference: [0.0-6.0] ? [0.0-3.0] ?[1.8-6.6] ? Units: % ? % ?K/cumm 03/11/2013 ?? 04:41:00 ?? 0.6 ? 2.2 ?2.2 03/10/2013 ?? 04:53:00 ?? 0.4 ? 2.8 ?2.2 2013 ?? 04:36:00 ?? 0.6 ? 2.8 ?1.9 03/08/2013 ?? 18:00:00 ?? 0.4 ? 2.7 ?2.8 ?Test: Lymph Abs Auto ??[place] Abs Auto ??Eos Abs Auto ? Reference: [1.2-3.3] ? [0.2-1.2] ?[0.0-0.5] ? Units: K/cumm ?K/cumm ? K/cumm 03/11/2013 ?? 04:41:00 ?? 0.3 ??L ?0.1 ??L ? 0.0 03/10/2013 ?? 04:53:00 ?? 0.4 ??L ?0.1 ??L ? 0.0 2013 ?? 04:36:00 ?? 0.4 ??L ?0.1 ??L ? 0.0 03/08/2013 ?? 18:00:00 ?? 0.3 ??L ?0.1 ??L ? 0.0 ?Test: Baso Abs Auto ? Reference: [0.0-0.2] ? Units: K/cumm 03/11/2013 ?? 04:41:00 ?? 0.1 03/10/2013 ?? 04:53:00 ?? 0.1 2013 ?? 04:36:00 ?? 0.1 03/08/2013 ?? 18:00:00 ?? 0.1 ? BLOOD MORPHOLOGIC EXAMINATION ?Test: Cells Diffed ??Seg Neutrophil ??Lymphocyte ? Reference: ? [44-80] ? [13-44] ? Units: Cells ? % ? % 2013 ?? 04:36:00 ?? 100 ? 74 ?17 ?Test: Monocyte ??Eosinophil ??Basophil ? Reference: [2-8] ? [0-6] ? [0-3] ? Units: % ? % ? % 2013 ?? 04:36:00 ?? 2 ? 4 ? 3 ?Test: Platelet Estimate ??Microcytes ?? Ovalocytes ? Reference: [Adequate] ? [None Seen] ??[None Seen] ? Units: 2013 ?? 04:36:00 ?? Adequate ? 3-7/HPF ??* ?? 3-7/HPF ??* ?ANEMIA TESTING ?Test: Haptoglobin ? Reference: [27.0-220.0] ? Units: mg/dL 03/11/2013 ?? 04:41:00 ?? 49.3 03/10/2013 ?? 04:53:00 ?? 56.9 03/08/2013 ?? 18:00:00 ?? 67.5 ? HEMOSTASIS AND THROMBOSIS ?Routine Coagulation Studies ?Test: PT ?INR i ?aPTT i ? Reference: [9.0-12.0] ??[0.90-1.20] ??[25.0-37.0] ? Units: sec ?sec 03/08/2013 ?? 18:00:00 ?? 10.5 ?1.00 ? 25.1 03/08/2013 18:00:00 INR: Interpretive Data Inpatient therapeutic ranges* Atrial fibrillation ?2.0-3.0 INR Venous thrombo-embolism ?2.0-3.0 INR Bioprosthetic heart valve ?* Mechanical heart valve, bileaflet or tilting disk,aortic position ? 2.0-3.0 INR All other,or bileaflet or tilting disk, in mitral position ? 2.5-3.5 INR *See the pharmacy resource directory ([employer]) for an updated copy of the Tool Book at [email or web address] Current Interpretive Data was last revised 2011. 03/08/2013 18:00:00 aPTT: Interpretive Data Therapeutic heparin range:60.0 - 94.0 sec based on correlation with therapeutic heparin activity range of 0.3 -0.7 Units/mL. Current interpretive data was last revised on 2011. ?IMMUNOGLOBULINS ?Test: Ig [place] FLC ??Ig Lambda FLC ??Oscar/Mehta FLCRatio ? Reference: [0.33-1.94] ?? [0.57-2.63] ?[0.26-1.65] ? Units: mg/dL ? mg/dL 03/10/2013 ?? 04:53:00 ?? 1.68 ?2.29 ? 0.73 ? SERUM PROTEIN ELECTROPHORESIS ?Test: Albumin Fraction ??Alpha 1 Globulin ? Reference: [3.6-5.0] ? [0.2-0.4] ? Units: g/dL ?g/dL 03/10/2013 ?? 04:53:00 ?? 3.6 ? 0.3 ?Test: Alpha 2 Globulin ??Beta 1 Glob ??Beta 2 Glob ? Reference: [0.4-0.9] ? [0.3-0.6] ?[0.2-0.6] ? Units: g/dL ?g/dL ? g/dL 03/10/2013 ?? 04:53:00 ?? 0.6 ? 0.3 ?0.3 ?Test: Gamma Globulin ??SPEL Interp ??Ifix Interp ? Reference: [0.6-1.7] ? Units: g/dL 03/10/2013 ?? 04:53:00 ?? 0.6 ? See Below ?See Below 03/10/2013 ??04:53:00 ??SPEL Interp ? No Apparent Monoclonal Peak. ? See immunofixation for further information. 03/10/2013 ??04:53:00 ??Ifix Interp ? No definite monoclonal peak detected. Suggest retesting in 12-15 ? months . ? URINE PROTEIN ELECTROPHORESIS ?Test: Ifix Ur Interp ? Reference: ? Units: 03/11/2013 ?? 04:41:00 ?? See Below 03/11/2013 ??04:41:00 ??Ifix Ur Interp ? No monoclonal protein detected. ? SUMMARY OF CRITICAL CALLBACKS ?Test: Called By ??Called To ??Credentials ??Date Notified 03/11/2013 ??12:12:00 ??See Below ??See Below ??RN ? 03/11/2013 03/11/2013 ??12:12:00 ??Called By ? PAL 03/11/2013 ??12:12:00 ??Called To ? Logan Kaye ?Test: TestName ?? Time Notified 03/11/2013 ??12:12:00 ??See Below ??1347 ? SUMMARY OF CRITICAL CALLBACKS 03/11/2013 ??12:12:00 ??TestName ? pO2 Art ? MICROBIOLOGY - ALL TESTS ? PROCEDURE: Cytomegalovirus PCR, Blood ?SOURCE: Blood COLLECTED: 03/11/13 ??1212 ? BODY SITE: STARTED: 03/11/13 ??1330 FREE TEXT SOURCE: FINAL REPORT REPORTED: 03/12/13 0817 Negative (<200 copies/ml) ORDER COMMENTS (1)Testing performed by: [place], [place]. ??[id number]. ??Testing performed by: [place], [place]. ??[id number]. ? MICROBIOLOGY - ALL TESTS ? PROCEDURE: Cytomegalovirus PCR, Blood ?SOURCE: Blood COLLECTED: 03/11/13 ??1212 ? BODY SITE: STARTED: 03/11/13 ??1330 FREE TEXT SOURCE: * * * ??Interpretive Results ??* * * (1)This assay is based on quantitative real-time PCR. ??The primers used amplify a conserved 61 bp region of the DNA polymerase gene of human CMV. ??Based on data from the [facility], these primers do not amplify any of the other seven human herpes viruses or human DNA sequences. It is thought that close to 100% of CMV strains will amplify with these primers, although genotypic sequence variations could result in a false negative result. This assay expresses results in units of CMV genome copies per ml of blood. ??The theoretical lower limit of detection of the assay is 200 copies/ml. ??The assay is accurate for quantitation in the range 2,000-1,250,000 genome copies/ml. ??Specimens found to have detectable CMV DNA beneath the level of accurate quantitation are reported as CMV DNA detected. ??Unable to quantitate because the level of viral DNA is below the level of accurate quantitation (<2,000 copies/ml) . ??If the specimen is found to be positive with greater than 1,250,000 genome copies/ml, a preliminary report is issued stating Positive: >1,250,000 copies/ml , and the specimen is subsequently retested after dilution to determine the actual copy number. Currently, there are no accepted standards for correlating specific copy numbers with CMV disease. Studies in our laboratory have shown that the quantitative assay is more sensitive than the qualitative PCR and the shell vial culture methods previously employed. ??In these studies, positive results ranged from 600 to 35,000,000 copies/ml. ??When the quantitative assay was positive but below the level of accurate quantitation, the qualitative PCR and culture assays were usually negative. ??At a level of 4,000 copies/ml, approximately 50% of qualitative PCR assays were positive. ??In these evaluations, the shell vial culture was only positive at levels above 15,000 copies/ml.General Comments: This test was developed and its performance characteristics determined by [facility]. ??It has not been cleared or approved by the U.S. Food and Drug Administration. ??Current interpretive data was last revised on 2009. ? MICROBIOLOGY - MOLECULAR TESTING ? PROCEDURE: Cytomegalovirus PCR, Blood ?SOURCE: Blood COLLECTED: 03/11/13 ??1212 ? BODY SITE: STARTED: 03/11/13 ??1330 FREE TEXT SOURCE: FINAL REPORT REPORTED: 03/12/13 0817 Negative (<200 copies/ml) ORDER COMMENTS (1)Testing performed by: [place], [place]. ??[id number]. ??Testing performed by: [place], [place]. ??[id number]. * * * ??Interpretive Results ??* * * (1)This assay is based on quantitative real-time PCR. ??The primers used amplify a conserved 61 bp region of the DNA polymerase gene of human CMV. ??Based on data from the [facility], these primers do not amplify any of the other seven human herpes viruses or human DNA sequences. It is thought that close to 100% of CMV strains will amplify with these primers, although genotypic sequence variations could result in a false negative result. This assay expresses results in units of CMV genome copies per ml of blood. ??The theoretical lower limit of detection of the assay is 200 copies/ml. ??The assay is accurate for quantitation in the range 2,000-1,250,000 genome copies/ml. ??Specimens found to have detectable CMV DNA beneath the level of accurate quantitation are reported as CMV DNA detected. ??Unable to quantitate because the level of viral DNA is below the level of accurate quantitation (<2,000 copies/ml) . ??If the specimen is found to be positive with greater than 1,250,000 genome copies/ml, a preliminary report is issued stating Positive: >1,250,000 copies/ml , and the specimen is subsequently retested after dilution to determine the actual copy number. Currently, there are no accepted standards for correlating specific copy numbers with CMV disease. Studies in our laboratory have shown that the quantitative assay is more sensitive than the qualitative PCR and the shell vial culture methods previously employed. ??In these studies, positive results ranged from 600 to 35,000,000 copies/ml. ??When the quantitative assay was positive but below the level of accurate quantitation, the qualitative PCR and culture assays were usually negative. ??At a level of 4,000 copies/ml, approximately 50% of qualitative PCR assays were positive. ??In these evaluations, the shell vial culture was only positive at levels above 15,000 copies/ml.General Comments: This test was developed and its performance characteristics determined by [facility]. ??It has not been cleared or approved by the U.S. Food and Drug Administration. ??Current interpretive data was last revised on 2009. ? CANCELLED TESTS Date ?Time ?Test ?Cancel Reason 03/08/2013 ??13:37:00 ??CBC 03/08/2013 ??13:37:00 ??Comp Met Plas 03/08/2013 ??13:37:00 ??Magnesium 03/08/2013 ??18:00:00 ??Morph Screen ?NCHG Test not indicated 03/08/2013 ??22:32:00 ??Basic Met Plas 03/08/2013 ??22:32:00 ??Troponin I 03/10/2013 ??17:47:00 ??Macro Ur 03/11/2013 ??12:13:00 ??Amino Acid Ur us Historical Provider MD LAB BLOOD ORDERABLES Paty l Result HISTORICAL RESULTS * All Microbiology Report Section (03/11/2013 12:00 AM CDT) 03/11/2013 Narrative HISTORICAL RESULTS - 03/12/2013 9:18 AM CDT ? [facility] ?[facility] ?[place], [place] [address] ? Patient Name: ??AMANDA DUNLAP ? Med Rec Number: [id number] ? Fin Number: ?[id number] ? Date: ?1935 ? Sex/Age: ? Female 78 years ? Admit Date: ?03/08/2013 ? Discharge Date: 03/11/2013 ? Doctor: ?Raghav Hart ? Facility: ?[facility] ? Location: ?OTHER ?* Abnormal ??A Alert ??f Footnote ??^ Corrected ??L Low ??H High ?i Interp Data ??@ Ref Lab ? Chart Type:Cumulative ?* * * * MICROBIOLOGY - MOLECULAR TESTING * * * * ?PROCEDURE: Cytomegalovirus PCR, Blood ? SOURCE: Blood ? COLLECTED: 03/11/13 ??1212 ?BODY SITE: ? STARTED: 03/11/13 ??1330 ? FREE TEXT SOURCE: ? FINAL REPORT ? REPORTED: 03/12/13 0817 ? Negative (<200 copies/ml) ? ORDER COMMENTS ? (1)Testing performed by: [facility], [place], ? [place]. ??[address]. ??Testing performed by: [facility], ? [place], [place]. ??[address]. ?* * * ??Interpretive Results ??* * * ? (1)This assay is based on quantitative real-time PCR. ??The primers ? used amplify a conserved 61 bp region of the DNA polymerase gene ? of human CMV. ??Based on data from the [facility] ? [facility], these primers do not amplify any ? of the other seven human herpes viruses or human DNA sequences. ? It is thought that close to 100% of CMV strains will amplify ? with these primers, although genotypic sequence variations could ? result in a false negative result. This assay expresses results ? in units of CMV genome copies per ml of blood. ??The theoretical ? lower limit of detection of the assay is 200 copies/ml. ??The ? assay is accurate for quantitation in the range 2,000-1,250,000 ? genome copies/ml. ??Specimens found to have detectable CMV DNA ? beneath the level of accurate quantitation are reported as CMV ? DNA detected. ??Unable to quantitate because the level of viral ? DNA is below the level of accurate quantitation (<2,000 ? copies/ml) . ??If the specimen is found to be positive with ? greater than 1,250,000 genome copies/ml, a preliminary report is ? issued stating Positive: >1,250,000 copies/ml , and the ? specimen is subsequently retested after dilution to determine ? the actual copy number. Currently, there are no accepted ? standards for correlating specific copy numbers with CMV disease. ? Studies in our laboratory have shown that the quantitative ? assay is more sensitive than the qualitative PCR and the shell ? vial culture methods previously employed. ??In these studies, ? positive results ranged from 600 to 35,000,000 copies/ml. ??When ? the quantitative assay was positive but below the level of ? accurate quantitation, the qualitative PCR and culture assays ? were usually negative. ??At a level of 4,000 copies/ml, ? approximately 50% of qualitative PCR assays were positive. ??In ? these evaluations, the shell vial culture was only positive at ? levels above 15,000 copies/ml.General Comments: This test was ? developed and its performance characteristics determined by . ? [facility]. ??It has not been cleared ? or approved by the U.S. Food and Drug Administration. ??Current ? interpretive data was last revised on 2009. ? us Historical Provider LAB MICROBIOLOGY - GENERA L ORDERABLES Final Result HISTORICAL RESULTS * (ABNORMAL) Urinalysis (03/10/2013 6:06 PM CDT) Color, ur Light-Yellow Yellow HISTORI CHANO RESULTS Clarity, ur Cloudy(A) Clear HISTORIC AL RESULTS Specific gravity, ur 1.010 1.003 - 1.030 HISTORICAL RESULTS pH, ur 7.0 5.0 - 8.0 HISTORICAL RESULTS Protein, ur Trace Trace HISTORIC AL RESULTS Glucose, ur 4+(A) Negative HISTORIC AL RESULTS Ketones, ur Negative Negative HISTORIC AL RESULTS Bilirubin, ur Negative Negative HISTOR ICAL RESULTS U Blood 2+(A) Negative HISTORICAL RESULTS Urobilinogen, quant, ur <2.0 0.0 - 2.0 mg/dl HISTORICAL RESULTS Nitrites, ur Negative Negative HISTORI CHANO RESULTS Leukocyte esterase, ur Negative Negative HISTORICAL RESULTS Urine 03/10/2013 6:06 PM CDT Result [facility] Provider MD LAB BLOOD ORDERABLES Paty l Result Performing Organization Address [facility] de Phone Number HISTORICAL RESULTS * Serum immunoglobin free light chain (FLC) (03/10/2013 4:53 AM CDT) [place]/Lambda ratio 0.73 0.26 - 1.65 ratio HISTORICAL RESULTS [place] free light chain 1.68 0.33 - 1.94 mg/dl HISTORICAL RESULTS Lambda free light chain 2.29 0.57 - 2.63 mg/dl HISTORICAL RESULTS Serum 03/10/2013 4:53 AM CDT Result [facility] Provider MD LAB BLOOD ORDERABLES Paty l Result Performing Organization Address [facility] de Phone Number HISTORICAL RESULTS * Blood tacrolimus (FK-506), trough drug level (03/10/2013 4:53 AM CDT) Pathologist [facility] Tacrolimus, trough 2.4 ng/ml H ISTORICAL RESULTS Comment: Interpretive Data This test was developed using an analyte specific reagent. ??Its performance characteristics were determined by the [facility] in a manner consistent with CLIA requirements. This test has not been cleared or approved by the U.S. Food and Drug Administration. Current interpretive data was last revised on 2011. Blood specimen (specimen) 03/10/2013 4:53 AM CDT Result [facility] Provider MD LAB BLOOD ORDERABLES Paty l Result Performing Organization Address [facility] de Phone Number HISTORICAL RESULTS * Serum lactate dehydrogenase (LDH) (03/10/2013 4:53 AM CDT) Lactate dehydrogenase (LDH) 228 100 - 250 Units/L HISTORICAL RESULTS Serum 03/10/2013 4:53 AM CDT Historical Provider LAB BLOOD ORDERABLES Paty l Result Performing Organization Address [facility] de Phone Number HISTORICAL RESULTS * Serum immunofixation electrophoresis (03/10/2013 4:53 AM CDT) Immunofixation No definite monoclonal peak detected. Suggest retesting in 6-12 months HISTORICAL RESULTS Serum 03/10/2013 4:53 AM CDT Historical Provider LAB BLOOD ORDERABLES Paty l Result Performing Organization Address [facility] de Phone Number HISTORICAL RESULTS * Serum haptoglobin (03/10/2013 4:53 AM CDT) Haptoglobin 56.9 27.0 - 220.0 mg/dl HISTORICAL RESULTS Serum 03/10/2013 4:53 AM CDT Result [facility] Historical Provider LAB BLOOD ORDERABLES Paty l Result Performing Organization Address [facility] de Phone Number HISTORICAL RESULTS * (ABNORMAL) Plasma basic metabolic panel (03/10/2013 4:53 AM CDT) Sodium 136 135 - 145 mmol/L HISTORICAL RESULTS K, pl 4.4 3.3 - 4.9 mmol/L HISTORICAL RESULTS Chloride 109 97 - 110 mmol/L HISTORICAL RESULTS CO2 19(L) 22 - 32 mmol/L HISTORICAL RESULTS A. gap 8 0 - 16 mmol/L HISTORICAL RESULTS Glucose 84 70 - 199 mg/dl HISTORICAL RESULTS BUN 26(H) 8 - 25 mg/dl HISTORICAL RESULTS Creatinine 1.35(H) 0.60 - 1.10 mg/dl HISTORICAL RESULTS Calcium 9.3 8.6 - 10.3 mg/dl HISTORICAL RESULTS Plasma 03/10/2013 4:53 AM CDT Historical Provider LAB BLOOD ORDERABLES Paty l Result Performing Organization Address [facility] Co de Phone Number HISTORICAL RESULTS * Serum protein electrophoresis (03/10/2013 4:53 AM CDT) Albumin, sr 3.6 3.6 - 5.0 g/dl HISTORICAL RESULTS Alpha-1, sr 0.3 0.2 - 0.4 g/dl HISTORICAL RESULTS Alpha-2, sr 0.6 0.4 - 0.9 g/dl HISTORICAL RESULTS Beta-1, sr 0.3 0.3 - 0.6 g/dl HISTORICAL RESULTS Beta-2, sr 0.3 0.2 - 0.6 g/dl HISTORICAL RESULTS Gamma, sr 0.6 0.6 - 1.7 g/dl HISTORICAL RESULTS SPEL, interp No Apparent Monoclonal Peak. See immunofixation for further information HISTORICAL RESULTS Serum 03/10/2013 4:53 AM CDT us Historical Provider LAB BLOOD ORDERABLES Paty max Result HISTORICAL RESULTS * (ABNORMAL) Blood cell count (CBC) (03/10/2013 4:53 AM CDT) WBC 2.8(L) 3.8 - 9.8 K/cumm HISTORICAL RESULTS RBC 3.11(L) 3.90 - 5.00 M/cumm HISTORICAL RESULTS Hgb 9.6(L) 12.1 - 15.1 g/dl HISTORICAL RESULTS Hct 29.1(L) 36.1 - 44.3 % HISTORICAL RESULTS MCV 93.5 80.0 - 97.6 fl HISTORICAL RESULTS MCH 30.9 26.7 - 33.7 pg HISTORICAL RESULTS MCHC 33.0 32.7 - 35.5 g/dl HISTORICAL RESULTS Rdw 19.7(H) 11.8 - 14.6 % HISTORICAL RESULTS Platelets 148 140 - 440 K/cumm HISTORICAL RESULTS MPV 8.1 6.8 - 10.4 fl HISTORICAL RESULTS Neutrophils 78.5(H) 38.7 - 74.5 % HISTORICAL RESULTS Lymphocytes 13.2(L) 20.0 - 54.3 % HISTORICAL RESULTS Monos 5.1 4.3 - 13.5 % HISTORICAL RESULTS Eosinophils 0.4 0.0 - 6.0 % HISTORICAL RESULTS Basophils 2.8 0.0 - 3.0 % HISTORICAL RESULTS Neutrophils, abs 2.2 1.8 - 6.6 K/cumm HISTORICAL RESULTS Lymphocytes, abs 0.4(L) 1.2 - 3.3 K/cumm HISTORICAL RESULTS Monocytes, absolute 0.1(L) 0.2 - 1.2 K/cumm HISTORICAL RESULTS Eosinophils, abs 0.0 0.0 - 0.5 K/cumm HISTORICAL RESULTS Basophils, abs 0.1 0.0 - 0.2 K/cumm HISTORICAL RESULTS Blood specimen (specimen) 03/10/2013 4:53 AM CDT Result [facility] Provider MD LAB BLOOD ORDERABLES Paty l Result Performing Organization Address [facility] de Phone Number HISTORICAL RESULTS * Urine uric acid (03/10/2013 4:25 AM CDT) Uric acid, ur 19.0 mg/dl HISTOR ICAL RESULTS Urine 03/10/2013 4:25 AM CDT Result [facility] Provider MD LAB BLOOD ORDERABLES Paty l Result Performing Organization Address [facility] de Phone Number HISTORICAL RESULTS * (ABNORMAL) Urinalysis (2013 6:49 AM CDT) Color, ur Light-Yellow Yellow HISTORI CHANO RESULTS Specific gravity, ur 1.012 1.003 - 1.030 HISTORICAL RESULTS Clarity, ur Clear Clear HISTORIC AL RESULTS pH, ur 7.0 5.0 - 8.0 HISTORICAL RESULTS Protein, ur Trace Trace HISTORIC AL RESULTS Glucose, ur 1+(A) Negative HISTORIC AL RESULTS Ketones, ur Negative Negative HISTORIC AL RESULTS Bilirubin, ur Negative Negative HISTOR ICAL RESULTS U Blood 2+(A) Negative HISTORICAL RESULTS Urobilinogen, quant, ur <2.0 0.0 - 2.0 mg/dl HISTORICAL RESULTS Nitrites, ur Negative Negative HISTORI CHANO RESULTS Leukocyte esterase, ur Negative Negative HISTORICAL RESULTS Urine 2013 6:49 AM CDT [facility] Provider MD LAB BLOOD ORDERABLES Paty l Result Performing Organization Address [facility]/ZIP Co de Phone Number HISTORICAL RESULTS * Urine sodium (2013 6:49 AM CDT) Sodium, ur 97 mmol/L HISTORICA L RESULTS Urine 2013 6:49 AM CDT Result [facility] Provider LAB BLOOD ORDERABLES Paty l Result Performing Organization Address [facility] Co de Phone Number HISTORICAL RESULTS * (ABNORMAL) Urine microscopy (2013 6:49 AM CDT) RBC, ur 21(H) 0 - 3 /hpf HISTORICA L RESULTS WBC, ur 2 0 - 5 /hpf HISTORICA L RESULTS Bacteria, ur Trace Trace HISTORI CHANO RESULTS Epithelial cells, renal, ur 0 0 - 0 /hpf HISTORICAL RESULTS Urine 2013 6:49 AM CDT Result [facility] Provider LAB BLOOD ORDERABLES Paty l Result Performing Organization Address [facility] Co de Phone Number HISTORICAL RESULTS * Urine potassium (2013 6:49 AM CDT) Potassium, ur 30 mmol/L HISTOR ICAL RESULTS Urine 2013 6:49 AM CDT Result [facility] Provider LAB BLOOD ORDERABLES Paty l Result Performing Organization Address [facility] Co de Phone Number HISTORICAL RESULTS * Urine chloride (2013 6:49 AM CDT) Chloride, ur 49 mmol/L HISTORI CHANO RESULTS Urine 2013 6:49 AM CDT Result [facility] Historical Provider LAB BLOOD ORDERABLES Paty l Result Performing Organization Address [facility]/ZIP Co de Phone Number HISTORICAL RESULTS * Urine creatinine (2013 6:49 AM CDT) Creatinine, ur 42 mg/dl HISTO RICAL RESULTS Urine 2013 6:49 AM CDT Result [facility] Provider MD LAB BLOOD ORDERABLES Paty l Result Performing Organization Address [facility] de Phone Number HISTORICAL RESULTS * Blood tacrolimus (FK-506), trough drug level (2013 4:36 AM CDT) Tacrolimus, trough 1.0 ng/ml H ISTORICAL RESULTS Comment: Interpretive Data This test was developed using an analyte specific reagent. ??Its performance characteristics were determined by the [facility] in a manner consistent with CLIA requirements. This test has not been cleared or approved by the U.S. Food and Drug Administration. Current interpretive data was last revised on 2011. Blood specimen (specimen) 2013 4:36 AM CDT Result [facility] Provider MD LAB BLOOD ORDERABLES Paty l Result Performing Organization Address [facility] de Phone Number HISTORICAL RESULTS * (ABNORMAL) Serum thyroid-stimulating hormone (TSH) (2013 4:36 AM CDT) TSH 12.29(H) 0.35 - 5.50 mcIUnits/ ml HISTORICAL RESULTS Comment: Interpretive Data Hyperthyroid: ??<0.1 mcIUnit/mL Hypothyroid: ??>12.0 mcIUnit/mL Current interpretive data was last revised on 00. Serum 2013 4:36 AM CDT Result [facility] Provider MD LAB BLOOD ORDERABLES Paty l Result Performing Organization Address [facility] Co de Phone Number HISTORICAL RESULTS * Serum gamma-glutamyl transferase (GGT) (2013 4:36 AM CDT) GGT 18 7 - 32 Units/L HISTORICAL RESULTS Serum 2013 4:36 AM CDT us Historical Provider MD LAB BLOOD ORDERABLES Paty l Result HISTORICAL RESULTS * (ABNORMAL) Plasma comprehensive metabolic panel (2013 4:36 AM CDT) Sodium 137 135 - 145 mmol/L HISTORICAL RESULTS K, pl 4.2 3.3 - 4.9 mmol/L HISTORICAL RESULTS Chloride 104 97 - 110 mmol/L HISTORICAL RESULTS CO2 22 22 - 32 mmol/L HISTORICAL RESULTS A. gap 11 0 - 16 mmol/L HISTORICAL RESULTS Glucose 86 70 - 199 mg/dl HISTORICAL RESULTS BUN 27(H) 8 - 25 mg/dl HISTORICAL RESULTS Creatinine 1.29(H) 0.60 - 1.10 mg/dl HISTORICAL RESULTS Calcium 10.0 8.6 - 10.3 mg/dl HISTORICAL RESULTS Protein, pl 6.3(L) 6.5 - 8.5 g/dl HISTORICAL RESULTS Alb 4.1 3.6 - 5.0 g/dl HISTORICAL RESULTS Bilirubin 0.3 0.3 - 1.1 mg/dl HISTORICAL RESULTS Alk phos 172(H) 38 - 126 Units/L HISTORICAL RESULTS AST 17 11 - 47 Units/L HISTORICAL RESULTS ALT 14 7 - 53 Units/L HISTORICAL RESULTS Plasma 2013 4:36 AM CDT Historical Provider LAB BLOOD ORDERABLES Paty l Result Performing Organization Address [facility]/ZIP Co de Phone Number HISTORICAL RESULTS * (ABNORMAL) Plasma phosphorus (2013 4:36 AM CDT) Phosphorus, pl 1.7(L) 2.3 - 4.3 mg/dl HISTORICAL RESULTS Plasma 2013 4:36 AM CDT Historical Provider LAB BLOOD ORDERABLES Paty l Result HISTORICAL RESULTS * (ABNORMAL) Serum uric acid (2013 4:36 AM CDT) Uric acid 1.9(L) 2.5 - 7.5 mg/dl HISTORICAL RESULTS Serum 2013 4:36 AM CDT Historical Provider MD LAB BLOOD ORDERABLES Paty max Result HISTORICAL RESULTS * Serum thyroxine (T4), free (2013 4:36 AM CDT) Free T4 1.22 0.90 - 1.80 ng/dl HISTORICAL RESULTS Serum 2013 4:36 AM CDT Historical Provider MD LAB BLOOD ORDERABLES Paty l Result Performing Organization Address [facility] Co de Phone Number HISTORICAL RESULTS * (ABNORMAL) Blood cell count (CBC) (2013 4:36 AM CDT) WBC 2.6(L) 3.8 - 9.8 K/cumm HISTORICAL RESULTS Eosinophils 0.6 0.0 - 6.0 % HISTORICAL RESULTS RBC 3.50(L) 3.90 - 5.00 M/cumm HISTORICAL RESULTS Basophils 2.8 0.0 - 3.0 % HISTORICAL RESULTS Hgb 10.9(L) 12.1 - 15.1 g/dl HISTORICAL RESULTS Neutrophils, abs 1.9 1.8 - 6.6 K/cumm HISTORICAL RESULTS Hct 32.5(L) 36.1 - 44.3 % HISTORICAL RESULTS Lymphocytes, abs 0.4(L) 1.2 - 3.3 K/cumm HISTORICAL RESULTS MCV 92.9 80.0 - 97.6 fl HISTORICAL RESULTS Monocytes, absolute 0.1(L) 0.2 - 1.2 K/cumm HISTORICAL RESULTS MCH 31.0 26.7 - 33.7 pg HISTORICAL RESULTS Eosinophils, abs 0.0 0.0 - 0.5 K/cumm HISTORICAL RESULTS MCHC 33.4 32.7 - 35.5 g/dl HISTORICAL RESULTS Basophils, abs 0.1 0.0 - 0.2 K/cumm HISTORICAL RESULTS Rdw 19.3(H) 11.8 - 14.6 % HISTORICAL RESULTS Platelets 183 140 - 440 K/cumm HISTORICAL RESULTS MPV 8.0 6.8 - 10.4 fl HISTORICAL RESULTS Neutrophils 75.0(H) 38.7 - 74.5 % HISTORICAL RESULTS Lymphocytes 17.6(L) 20.0 - 54.3 % HISTORICAL RESULTS Monos 4.0(L) 4.3 - 13.5 % HISTORICAL RESULTS Blood specimen (specimen) 2013 4:36 AM CDT Result [facility] Historical Provider MD LAB BLOOD ORDERABLES Paty l Result Performing Organization Address [facility] de Phone Number HISTORICAL RESULTS * (ABNORMAL) Blood cell morphologic exam (2013 4:36 AM CDT) WBC counted 100 # of cells HISTORI CHANO RESULTS Neutrophils 74 44 - 80 % HISTORIC AL RESULTS Lymphocytes 17 13 - 44 % HISTORIC AL RESULTS Monos 2 2 - 8 % HISTORICAL RESULTS Eosinophils 4 0 - 6 % HISTORIC AL RESULTS Basophils 3 0 - 3 % HISTORICAL RESULTS Platelet estimate Adequate Adequate HISTORICAL RESULTS Microcytosis 3-7/HPF(A) None Seen HISTOR ICAL RESULTS Ovalocytes 3-7/HPF(A) None Seen HISTORIC AL RESULTS Blood specimen (specimen) 2013 4:36 AM CDT Result [facility] Provider LAB BLOOD ORDERABLES Paty l Result Performing Organization Address [facility] Phone Number HISTORICAL RESULTS * Urine protein (2013 12:59 AM CDT) Protein, ur, quant 17.7 mg/dl H ISTORICAL RESULTS Comment: Interpretive Data Urine protein values from patients receiving aminoglycosides may be falsely elevated. Current interpretive data was last revised on 05. Urine 2013 12:5 9 AM CDT Result [facility] Historical Provider MD LAB BLOOD ORDERABLES Paty l Result Performing Organization Address [facility] Phone Number HISTORICAL RESULTS * (ABNORMAL) Plasma basic metabolic panel (03/08/2013 11:48 PM CDT) Sodium 135 135 - 145 mmol/L HISTORICAL RESULTS K, pl 4.4 3.3 - 4.9 mmol/L HISTORICAL RESULTS Chloride 102 97 - 110 mmol/L HISTORICAL RESULTS CO2 22 22 - 32 mmol/L HISTORICAL RESULTS A. gap 11 0 - 16 mmol/L HISTORICAL RESULTS Glucose 86 70 - 199 mg/dl HISTORICAL RESULTS BUN 30(H) 8 - 25 mg/dl HISTORICAL RESULTS Creatinine 1.30(H) 0.60 - 1.10 mg/dl HISTORICAL RESULTS Calcium 9.9 8.6 - 10.3 mg/dl HISTORICAL RESULTS Plasma 03/08/2013 11:4 8 PM CDT Historical Provider LAB BLOOD ORDERABLES Paty l Result HISTORICAL RESULTS * Serum troponin I (03/08/2013 11:48 PM CDT) Pathologist [facility] Troponin I <0.07 0.00 - 0.24 ng/ml HISTORICAL RESULTS Comment: Interpretive Data Normal Range: <0.07 ng/mL: Negative 0.07 - 0.24 ng/mL: Elevated, may be consistent with Myocardial Injury/Ischemia but is nondiagnostic and of equivocal significance. Consider obtaining additional Troponin values. (JAM Dave Cardiol 2000; 36:959. Circulation 2000; 102: 1193., 2002; 106: 1893., 2003: 108: 2543) Greater than or equal to 0.25 ng/mL: Positive Troponin, suggest establishing rising or falling pattern and evidence of Cardiac Ischemia for consideration of Myocardial Infarction. Current interpretive data was last revised on 2007. Serum 03/08/2013 11:4 8 PM CDT Historical Provider LAB BLOOD ORDERABLES Paty l Result HISTORICAL RESULTS * (ABNORMAL) Serum lactate dehydrogenase (LDH) (03/08/2013 6:00 PM CDT) Lactate dehydrogenase (LDH) 294(H) 100 - 250 Units/L HISTORICAL RESULTS Serum 03/08/2013 6:00 PM CDT Historical Provider LAB BLOOD ORDERABLES Paty l Result HISTORICAL RESULTS * Serum haptoglobin (03/08/2013 6:00 PM CDT) Haptoglobin 67.5 27.0 - 220.0 mg/dl HISTORICAL RESULTS Serum 03/08/2013 6:00 PM CDT Historical Provider LAB BLOOD ORDERABLES Paty l Result HISTORICAL RESULTS * (ABNORMAL) Blood cell count (CBC) (03/08/2013 6:00 PM CDT) WBC 3.3(L) 3.8 - 9.8 K/cumm HISTORICAL RESULTS RBC 3.79(L) 3.90 - 5.00 M/cumm HISTORICAL RESULTS Hgb 11.5(L) 12.1 - 15.1 g/dl HISTORICAL RESULTS Hct 35.6(L) 36.1 - 44.3 % HISTORICAL RESULTS MCV 93.8 80.0 - 97.6 fl HISTORICAL RESULTS MCH 30.4 26.7 - 33.7 pg HISTORICAL RESULTS MCHC 32.4(L) 32.7 - 35.5 g/dl HISTORICAL RESULTS Rdw 19.5(H) 11.8 - 14.6 % HISTORICAL RESULTS Platelets 207 140 - 440 K/cumm HISTORICAL RESULTS MPV 8.6 6.8 - 10.4 fl HISTORICAL RESULTS Neutrophils 84.7(H) 38.7 - 74.5 % HISTORICAL RESULTS Lymphocytes 8.5(L) 20.0 - 54.3 % HISTORICAL RESULTS Monos 3.7(L) 4.3 - 13.5 % HISTORICAL RESULTS Eosinophils 0.4 0.0 - 6.0 % HISTORICAL RESULTS Basophils 2.7 0.0 - 3.0 % HISTORICAL RESULTS Neutrophils, abs 2.8 1.8 - 6.6 K/cumm HISTORICAL RESULTS Lymphocytes, abs 0.3(L) 1.2 - 3.3 K/cumm HISTORICAL RESULTS Monocytes, absolute 0.1(L) 0.2 - 1.2 K/cumm HISTORICAL RESULTS Eosinophils, abs 0.0 0.0 - 0.5 K/cumm HISTORICAL RESULTS Basophils, abs 0.1 0.0 - 0.2 K/cumm HISTORICAL RESULTS Blood specimen (specimen) 03/08/2013 6:00 PM CDT Historical Provider LAB BLOOD ORDERABLES Paty winter Result Performing Organization Address [facility] de Phone Number HISTORICAL RESULTS * Serum troponin I (03/08/2013 6:00 PM CDT) Troponin I <0.07 0.00 - 0.24 ng/ml HISTORICAL RESULTS Comment: Interpretive Data Normal Range: <0.07 ng/mL: Negative 0.07 - 0.24 ng/mL: Elevated, may be consistent with Myocardial Injury/Ischemia but is nondiagnostic and of equivocal significance. Consider obtaining additional Troponin values. (JAM Dave Cardiol 2000; 36:959. Circulation 2000; 102: 1193., 2002; 106: 1893., 2003: 108: 8983) Greater than or equal to 0.25 ng/mL: Positive Troponin, suggest establishing rising or falling pattern and evidence of Cardiac Ischemia for consideration of Myocardial Infarction. Current interpretive data was last revised on 2007. Serum 03/08/2013 6:00 PM CDT Historical Provider LAB BLOOD ORDERABLES Paty l Result Performing Organization Address [facility] de Phone Number HISTORICAL RESULTS * Plasma partial thromboplastin time (PTT) (03/08/2013 6:00 PM CDT) APTT 25.1 25.0 - 37.0 seconds HISTORICAL RESULTS Comment: Interpretive Data Therapeutic heparin range:60.0 - 94.0 sec based on correlation with therapeutic heparin activity range of 0.3 -0.7 Units/mL. Current interpretive data was last revised on 2011. Plasma 03/08/2013 6:00 PM CDT Historical Provider LAB BLOOD ORDERABLES Paty l Result Performing Organization Address [facility] Co de Phone Number HISTORICAL RESULTS * Plasma prothrombin time (PT) (03/08/2013 6:00 PM CDT) Prothrombin time (PT) 10.5 9.0 - 12.0 seconds HISTORICAL RESULTS INR 1.00 0.90 - 1.20 HISTORIC AL RESULTS Comment: Interpretive Data Inpatient therapeutic ranges* Atrial fibrillation ?2.0-3.0 INR Venous thrombo-embolism ?2.0-3.0 INR Bioprosthetic heart valve ?* Mechanical heart valve, bileaflet or tilting disk,aortic position ? 2.0-3.0 INR All other,or bileaflet or tilting disk, in mitral position ? 2.5-3.5 INR *See the pharmacy resource directory (PHRED) for an updated copy of the Tool Book at [email or web address] Current Interpretive Data was last revised 2011. Plasma 03/08/2013 6:00 PM CDT us Historical Provider LAB BLOOD ORDERABLES Paty l Result HISTORICAL RESULTS * XR Chest 1 View (03/08/2013 4:06 PM CDT) Anatomical Region Laterality Modality Body, Chest N/A Radiographic Tomeka ging 03/08/2013 4:06 PM CDT Narrative 03/08/2013 7:13 PM CDT JHON PRETTY M.D. REBEKA SANDOVAL M.D. FINAL REPORT The radiology attending physician has personally reviewed this study, and has reviewed and/or edited this written report and agrees with it. ACC# ??Date Time ??Exam [id number] Mar 08, 2013 16:06:00 [id number] Chest 1 view Frontal EXAMINATION: ?? Chest 1 view ?? IMPRESSION: ?? Comparison February 18, 2013. A right internal jugular central venous catheter terminates in the superior vena cava. There has been interval resolution of multifocal airspace and reticular opacities. No focal lung consolidation, pneumothorax or pleural effusion is seen. Cardiomediastinal silhouette is stable. ?? Requested By: CAMILLE ESCOBAR PA-C Dictated By: ?? REBEKA SANDOVAL M.D. ??on Mar ??2012 ??4:30P This document has been electronically signed by: JHON PRETTY M.D. on Mar ??3 2013 ??7:13P Procedure Note Provider, MD Diego - 10/30/2016 JHON PRETTY M.D. REBEKA SANDOVAL M.D. FINAL REPORT The radiology attending physician has personally reviewed this study, and has reviewed and/or edited this written report and agrees with it. ACC# Date Time Exam [id number] Mar 08, 2013 16:06:00 [id number] Chest 1 view Frontal EXAMINATION: Chest 1 view IMPRESSION: Comparison February 18, 2013. A right internal jugular central venous catheter terminates in the superior vena cava. There has been interval resolution of multifocal airspace and reticular opacities. No focal lung consolidation, pneumothorax or pleural effusion is seen. Cardiomediastinal silhouette is stable. Requested By: CAMILLE ESCOBAR PA-C Dictated By: REBEKA SANDOVAL M.D. on Mar 08 2013 4:30P This document has been electronically signed by: JHON PRETTY M.D. on Mar 08 2013 7:13P Historical Provider IMG XR PROCEDURES Final R esult * ELECTROCARDIOGRAPHY (ECG) (03/08/2013) Narrative 03/08/2013 Ordered by an unspecified provider. 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 Other specified disorders resulting from impaired renal function Adult failure to thrive Essential hypertension Unspecified essential hypertension Surgical operation with transplant of whole organ causing abnormal patient reaction, or later complication Encounter for long-term (current) use of steroids Chest pain Unspecified chest pain Constipation Unspecified constipation Anemia Unspecified anemia Postsurgical hypothyroidism documented in this encounter Care Teams Commercial Artist Lettering Relationship Specialty Start Date End Date Burke Rosenberg DO [address] [address] PCP - General 09/27/10 02/19/14 documented as of this encounter
--- OUTSIDE RECORDS SUMMARY | 2024-06-27 01:58 | XMS_ITS | Encounter Summary ---
Author Organization [facility] Facility Care Team Providers Care Director Of Employee Development Name Role Phone Burke Rosenberg DO Primary Care Provider [phone] Encounter Details Date Type Department Care Team (Late st Contact Info) Description 03/17/2013 - 03/17/2013 11:59 PM T Hospital Encounter [facility] CLINCONDebo Burciaga, BRICK HANDLER [address] [place] [address] Aftercare following organ transplant; Status post kidney transplant; Encounter for long-term (current) use of other medications Social History Tobacco Use Types Packs/Day Years Used Date Smoking Tobacco: Never Assessed Alcohol Use Standard Drinks/Week Comments No 0 (1 standard drink = 0.6 oz pur e alcohol) Comments Unknown Sex and Gender Information Value Date Recorded Sex Assigned at Not on file Legal Sex Female 1:13 PM AIR TRAFFIC CONTROLLER Gender Identity Not on file Sexual Orientation Not on file documented as of this encounter Medications at Time of Discharge metoprolol (LOPRESSOR) 50 mg tablet Take 50 mg by mouth 2 times daily. 02/11/2013 12/25/2017 predniSONE (DELTASONE) 5 mg tablet Take 5 mg by mouth hot worker before breakfast. 02/10/2013 05/21/2018 sodium bicarbonate 650 mg tablet Take 1 tablet by mouth nightly. 03/10/2013 09/30/2018 tacrolimus (PROGRAF) 1 mg capsule Take 2 mg by mouth 2 (two) times a day. 03/02/2013 09/29/2018 documented as of this encounter Plan of Treatment Not on file documented as of this encounter Procedures Procedure Name Priority Date/Time Associated Diagnosis Comments DISCHARGE LABORATORY CUMULATIVE REPORT Routine 03/20/2013 5:07 PM CDT URINE (AEROBIC) CULTURE, CDR Routine 03/17/2013 10:51 AM CDT URINE MICROSCOPY Routine 03/17/2013 10:5 1 AM CDT URINALYSIS Routine 03/17/2013 10:51 AM CDT ALL MICROBIOLOGY REPORT SECTION Routine 03/17/2013 12:00 AM CDT documented in this encounter Results * Discharge Laboratory Cumulative Report (03/20/2013 5:07 PM CDT) 03/20/2013 5:07 PM CDT Narrative HISTORICAL RESULTS - 03/20/2013 5:07 PM CDT ? [facility] ? Department of Laboratories ?[facility] [address] ?[facility] ?[address] Patient Name: ? JULIET MAKI Med Rec Number: ?? [id number] Date of : ?1935 Gender/Age: ? Female 78 years Doctor: ? LIZ Coe Report Date/Time: 03/20/2013 17:07 ?* Abnormal ??C Critical ??f Footnote ??^ Corrected ??L Low ??H High ?i Interp Data ??@ Reference Lab ?Chart Type: Cumulative ?URINALYSIS ?03/17/2013 ?10:51:00 Test ?Units ??Reference Color ? Yellow ? [Yellow] Clarity ? Clear ?[Clear] Specific [place] ??1.021 ?[1.003-1.030] pH ?7.5 ?[5.0-8.0] Albumin ? 1+ ??* ?[Trace] Glucose ? 2+ ??* ?[Negative] Ketones ? Negative ? [Negative] Bilirubin ? Negative ? [Negative] Blood ? 2+ ??* ?[Negative] Urobilinogen ?<2.0 ?mg/dL ??[0.0-2.0] Nitrite ? Negative ? [Negative] Leuk Esterase ? Negative ? [Negative] Epithl Squam ?5 ? /LPF Mucus Thrds ? Small ? /HPF RBC Ur ?27 ??H ? /HPF ?? [0-3] WBC Ur ?1 ? /HPF ?? [0-5] Bacteria Ur ? Negative ? [Trace] Epithl Renl Ur ?0 ? /HPF ?? [0-0] ? MICROBIOLOGY ? PROCEDURE: Urine Culture ?SOURCE: Urine, clean voided COLLECTED: 03/17/13 ??1051 ? BODY SITE: STARTED: 03/17/13 ??2016 FREE TEXT SOURCE: FINAL REPORT REPORTED: 03/20/13 1347 Greater than or equal to 50,000 colonies/ml of Coagulase negative Staphylococcus species not S. lugdunensis or S. saprophyticus ORDER COMMENTS (1)Received in transport media. Historical Provider LAB BLOOD ORDERABLES Paty l Result Performing Organization Address City/[facility] Co de Phone Number HISTORICAL RESULTS * Urine (aerobic) culture (03/17/2013 10:51 AM CDT) Urine, clean voided (Unknown) 03/17/2013 10:51 AM CDT 03/17/2013 8:15 PM CDT Narrative HISTORICAL RESULTS - 03/20/2013 1:47 PM CDT Greater than or equal to 50,000 colonies/ml of Coagulase negative Staphylococcus species not S. lugdunensis or S. saprophyticus Historical Provider LAB MICROBIOLOGY - GENERA L ORDERABLES Final Result Performing Organization Address [facility] Co de Phone Number HISTORICAL RESULTS * (ABNORMAL) Urinalysis (03/17/2013 10:51 AM CDT) Color, ur Yellow Yellow HISTORICAL RESULTS Clarity, ur Clear Clear HISTORIC AL RESULTS Specific gravity, ur 1.021 1.003 - 1.030 HISTORICAL RESULTS pH, ur 7.5 5.0 - 8.0 HISTORICAL RESULTS Protein, ur 1+(A) Trace HISTORIC AL RESULTS Glucose, ur 2+(A) Negative HISTORIC AL RESULTS Ketones, ur Negative Negative HISTORIC AL RESULTS Bilirubin, ur Negative Negative HISTOR ICAL RESULTS U Blood 2+(A) Negative HISTORICAL RESULTS Urobilinogen, quant, ur <2.0 0.0 - 2.0 mg/dl HISTORICAL RESULTS Nitrites, ur Negative Negative HISTORI CHANO RESULTS Leukocyte esterase, ur Negative Negative HISTORICAL RESULTS Urine 03/17/2013 10:5 1 AM CDT Debo Meza BRICK HANDLER LAB BLOOD ORDERABLES Final Result HISTORICAL RESULTS * (ABNORMAL) Urine microscopy (03/17/2013 10:51 AM CDT) RBC, ur 27(H) 0 - 3 /hpf HISTORICA L RESULTS WBC, ur 1 0 - 5 /hpf HISTORICA L RESULTS Bacteria, ur Negative Trace HISTORI CHANO RESULTS Epithelial cells, renal, ur 0 0 - 0 /hpf HISTORICAL RESULTS Epithelial cells, squamous, ur 5 /lpf HISTORICAL RESULTS Mucus, ur Small /hpf HISTORICAL RESULTS Urine 03/17/2013 10:5 1 AM CDT us Debo Meza BRICK HANDLER LAB BLOOD ORDERABLES Final Result Performing Organization Address [facility]/ZIP Co de Phone Number HISTORICAL RESULTS * All Microbiology Report Section (03/17/2013 12:00 AM CDT) 03/17/2013 Narrative HISTORICAL RESULTS - 03/20/2013 3:25 PM CDT ? [facility] ?[facility] ?[place], [place] [address] ? Patient Name: ??JULIET MAKI ? Med Rec Number: [id number] ? Fin Number: ?[id number] ? Date: ?1935 ? Sex/Age: ? Female 78 years ? Admit Date: ?03/17/2013 ? Discharge Date: 03/17/2013 ? Doctor: ?Debo Meza ? Facility: [facility] ? Location: ?[facility] ?* Abnormal ??A Alert ??f Footnote ??^ Corrected ??L Low ??H High ?i Interp Data ??@ Ref Lab ? Chart Type:Cumulative ?* * * * MICROBIOLOGY - URINE * * * * ?PROCEDURE: Urine Culture ? SOURCE: Urine, clean voided ? COLLECTED: 09/12/13 ??1051 ?BODY SITE: ? STARTED: 09/12/13 ??2016 ? FREE TEXT SOURCE: ? FINAL REPORT ? REPORTED: 03/20/13 1347 ? Greater than or equal to 50,000 colonies/ml of Coagulase ? negative Staphylococcus species not S. lugdunensis or S. ? saprophyticus ? ORDER COMMENTS ? (1)Received in transport media. ? us Historical Provider LAB MICROBIOLOGY - GENERA L ORDERABLES Final Result HISTORICAL RESULTS documented in this encounter Visit Diagnoses Diagnosis Aftercare following organ transplant Status post kidney transplant Encounter for long-term (current) use of other medications documented in this encounter Care Teams Director Of Employee Development Relationship Specialty Start Date End Date Burke Rosenberg DO [address] [facility] [address] [place] [address] PCP - General 09/27/10 02/19/14 documented as of this encounter
--- OUTSIDE RECORDS SUMMARY | 2024-06-27 01:58 | XMS_ITS | Encounter Summary ---
Author Organization [facility] Healthcare Address [address] [place] [address] Care Team Providers Care Pharmaceutical Engineer Name Role Phone Burke Rosenberg DO Primary Care Provider [phone] Encounter Details Date Type Department Care Team (Late st Contact Info) Description 04/06/2013 8:00 AM CDT - 04/06/2013 11:59 PM CDT Hospital Encounter [place] [id number] [id number] Social History Tobacco Use Types Packs/Day Years Used Date Smoking Tobacco: Never Assessed Alcohol Use Standard Drinks/Week Comments No 0 (1 standard drink = 0.6 oz pur e alcohol) Comments Unknown Sex and Gender Information Value Date Recorded Sex Assigned at Not on file 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 02/11/2013 12/25/2017 predniSONE (DELTASONE) 5 mg tablet Take 5 mg by mouth heel curver before breakfast. 02/10/2013 05/21/2018 sodium bicarbonate 650 mg tablet Take 1 tablet by mouth nightly. 03/10/2013 09/30/2018 tacrolimus (PROGRAF) 1 mg capsule Take 2 mg by mouth 2 (two) times a day. 03/02/2013 09/29/2018 documented as of this encounter Plan of Treatment Not on file documented as of this encounter Visit Diagnoses Not on filedocumented in this encounter Care Teams Pharmaceutical Engineer Relationship Specialty Start Date End Date Burke Rosenberg DO [address] [address] PCP - General 09/27/10 02/19/14 documented as of this encounter
--- OUTSIDE RECORDS SUMMARY | 2024-06-27 01:58 | XMS_ITS | Encounter Summary ---
Author Organization [facility] Healthcare Address [address] [place] [address] Care Team Providers Care Urban Gardening Specialist Name Role Phone Burke Rosenberg DO Primary Care Provider [phone] Encounter Details Date Type Department Care Team (Late st Contact Info) Description 03/02/2013 11:39 AM CDT - 03/02/2013 11:59 PM T Hospital Encounter [facility] Matheus Camacho MD 1 [facility] [address] [place] [address] End-stage renal disease (CMS/HCC) (HCC); Status post kidney transplant Social History Tobacco Use Types Packs/Day Years Used Date Smoking Tobacco: Never Assessed Alcohol Use Standard Drinks/Week Comments No 0 (1 standard drink = 0.6 oz pur e alcohol) Comments Unknown Sex and Gender Information Value Date Recorded Sex Assigned at Not on file 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 02/11/2013 12/25/2017 predniSONE (DELTASONE) 5 mg tablet Take 5 mg by mouth early childhood associate before breakfast. 02/10/2013 05/21/2018 tacrolimus (PROGRAF) 1 mg capsule Take 2 mg by mouth 2 (two) times a day. 03/02/2013 09/29/2018 documented as of this encounter Plan of Treatment Not on file documented as of this encounter Visit Diagnoses Diagnosis End-stage renal disease (CMS/HCC) (HCC) Status post kidney transplant documented in this encounter Care Teams Urban Gardening Specialist Relationship Specialty Start Date End Date Burke Rosenberg DO [address] [address] PCP - General 09/27/10 02/19/14 documented as of this encounter
--- OUTSIDE RECORDS SUMMARY | 2024-06-27 01:58 | XMS_ITS | Encounter Summary ---
Author Organization [facility] Facility Care Team Providers Care Baker Helper Name Role Phone Burke Rosenberg DO Primary Care Provider [phone] Encounter Details Date Type Department Care Team (Late st Contact Info) Description 04/27/2013 - 04/27/2013 11:59 PM CDT Hospital Encounter [facility] Elodia Berman Aftercare following organ transplant; Status post kidney transplant Social History Tobacco Use Types Packs/Day Years Used Date Smoking Tobacco: Never Assessed Alcohol Use Standard Drinks/Week Comments No 0 (1 standard drink = 0.6 oz pur e alcohol) Comments Unknown Sex and Gender Information Value Date Recorded Sex Assigned at Not on file Legal Sex Female 1:13 PM 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 02/11/2013 12/25/2017 predniSONE (DELTASONE) 5 mg tablet Take 5 mg by mouth director of early childhood education before breakfast. 02/10/2013 05/21/2018 sodium bicarbonate 650 mg tablet Take 1 tablet by mouth nightly. 03/10/2013 09/30/2018 tacrolimus (PROGRAF) 1 mg capsule Take 2 mg by mouth 2 (two) times a day. 03/02/2013 09/29/2018 documented as of this encounter Plan of Treatment Not on file documented as of this encounter Procedures Procedure Name Priority Date/Time Associated Diagnosis Comments DISCHARGE LABORATORY CUMULATIVE REPORT Routine 04/28/2013 9:09 AM CDT URINE MICROSCOPY Routine 04/27/2013 8:44 PM CDT URINALYSIS Routine 04/27/2013 8:44 PM CDT URINE PROTEIN, CREATININE Routine 2012 9:46 AM CDT ELECTROCARDIOGRAPHY (ECG) 04/27/2013 documented in this encounter Results * Discharge Laboratory Cumulative Report (04/28/2013 9:09 AM CDT) 04/28/2013 9:09 AM CDT Narrative HISTORICAL RESULTS - 04/28/2013 9:09 AM CDT ? [facility] ? Department of Laboratories ?[facility] [address] ?[facility] ?[facility] [address] Patient Name: ? JULIET MAKI Med Rec Number: ?? [id number] Date of : ?1935 Gender/Age: ? Female 78 years Doctor: ? Elodia Florentino Report Date/Time: 04/28/2013 09:09 ?* Abnormal ??C Critical ??f Footnote ??^ Corrected ??L Low ??H High ?i Interp Data ??@ Reference Lab ?Chart Type: Cumulative ? CHEMISTRY ? Quantitative Urine Chemistry ? 04/27/2013 ? 09:46:22 Test ? Units ??Reference Prot Ur_Creat Ur Ratio ?? 0.2 ? Ratio Random Urine Creatinine ??59.19 ? mg/dL Random Urine Protein i ?? 12.2 ?mg/dL 04/27/2013 09:46:22 Random Urine Protein: Interpretive Data Urine protein values from patients receiving aminoglycosides may be falsely elevated. Current interpretive data was last revised on 05. ?URINALYSIS ?04/27/2013 ?20:44:00 Test ?Units ??Reference Color ? Yellow ? [Yellow] Clarity ? Clear ?[Clear] Specific [place] ??1.021 ?[1.003-1.030] pH ?8.5 ??H ? [5.0-8.0] Albumin ? Trace ?[Trace] Glucose ? Negative ? [Negative] Ketones ? Negative ? [Negative] Bilirubin ? Negative ? [Negative] Blood ? 2+ ??* ?[Negative] Urobilinogen ?<2.0 ?mg/dL ??[0.0-2.0] Nitrite ? Negative ? [Negative] Leuk Esterase ? Negative ? [Negative] Epithl Squam ?18 ?/LPF Mucus Thrds ? Small ? /HPF RBC Ur ?34 ??H ? /HPF ?? [0-3] WBC Ur ?2 ? /HPF ?? [0-5] Bacteria Ur ? Negative ? [Trace] ?URINALYSIS ?04/27/2013 ?20:44:00 Test ?Units ??Reference Epithl Renl Ur ?0 ? /HPF ?? [0-0] Hyaline Cast ?1 ??H ?/LPF ?? [0-0] Historical Provider LAB BLOOD ORDERABLES Paty l Result Performing Organization Address [facility] [address] [facility] de Phone Number HISTORICAL RESULTS * (ABNORMAL) Urinalysis (04/27/2013 8:44 PM CDT) Color, ur Yellow Yellow HISTORICAL RESULTS Clarity, ur Clear Clear HISTORIC AL RESULTS Specific gravity, ur 1.021 1.003 - 1.030 HISTORICAL RESULTS pH, ur 8.5(H) 5.0 - 8.0 HISTORICAL RESULTS Protein, ur Trace Trace HISTORIC AL RESULTS Glucose, ur Negative Negative HISTORIC AL RESULTS Ketones, ur Negative Negative HISTORIC AL RESULTS Bilirubin, ur Negative Negative HISTOR ICAL RESULTS U Blood 2+(A) Negative HISTORICAL RESULTS Urobilinogen, quant, ur <2.0 0.0 - 2.0 mg/dl HISTORICAL RESULTS Nitrites, ur Negative Negative HISTORI CHANO RESULTS Leukocyte esterase, ur Negative Negative HISTORICAL RESULTS Urine 04/27/2013 8:44 PM CDT Elodia Florentino LAB BLOOD ORDERABLES Final Res ult Performing Organization Address [facility] [address]/[facility] de Phone Number HISTORICAL RESULTS * (ABNORMAL) Urine microscopy (04/27/2013 8:44 PM CDT) RBC, ur 34(H) 0 - 3 /hpf HISTORICA L RESULTS WBC, ur 2 0 - 5 /hpf HISTORICA L RESULTS Bacteria, ur Negative Trace HISTORI CHANO RESULTS Epithelial cells, renal, ur 0 0 - 0 /hpf HISTORICAL RESULTS Epithelial cells, squamous, ur 18 /lpf HISTORICAL RESULTS Mucus, ur Small /hpf HISTORICAL RESULTS Hyaline casts 1(H) 0 - 0 /lpf HISTO RICAL RESULTS Urine 04/27/2013 8:44 PM CDT Elodia Florentino LAB BLOOD ORDERABLES Final Res ult Performing Organization Address City/[facility] [address]/[facility] Co de Phone Number HISTORICAL RESULTS * Urine protein, creatinine (04/27/2013 9:46 AM CDT) Protein, ur, quant 12.2 mg/dl H ISTORICAL RESULTS Comment: Interpretive Data Urine protein values from patients receiving aminoglycosides may be falsely elevated. Current interpretive data was last revised on 05. Creatinine, ur 59 mg/dl HISTO RICAL RESULTS Protein/creatinine ratio 0.2 ratio HISTORICAL RESULTS Urine 04/27/2013 9:46 AM CDT Elodia Florentino LAB BLOOD ORDERABLES Final Res ult Performing Organization Address [facility] [address]/[facility] de Phone Number HISTORICAL RESULTS * ELECTROCARDIOGRAPHY (ECG) (04/27/2013) Narrative 04/27/2013 Ordered by an unspecified provider. Historical Provider ECG ORDERABLES Final Res ult documented in this encounter Visit Diagnoses Diagnosis Aftercare following organ transplant Status post kidney transplant documented in this encounter Care Teams Baker Helper Relationship Specialty Start Date End Date Burke Rosenberg DO [address] [address] PCP - General 09/27/10 02/19/14 documented as of this encounter
--- OUTSIDE RECORDS SUMMARY | 2024-06-27 01:59 | XMS_ITS | Encounter Summary ---
Author Organization [facility] Facility Care Team Providers Care Trainmaster Name Role Phone Burke Rosenberg DO Primary Care Provider [phone] Encounter Details Date Type Department Care Team (Late st Contact Info) Description 02/28/2011 - 07/05/2011 11:59 PM MACHINE SAND MIXER Hospital [facility] [address] [place] [address] Social History Tobacco Use Types Packs/Day Years Used Date Smoking Tobacco: Never Assessed Alcohol Use Standard Drinks/Week Comments No 0 (1 standard drink = 0.6 oz pur e alcohol) Comments Unknown Sex and Gender Information Value Date Recorded Sex Assigned at Not on file Legal Sex Female 1:13 PM MACHINE SAND MIXER Gender Identity Not on file Sexual Orientation Not on file documented as of this encounter Plan of Treatment Not on file documented as of this encounter Visit Diagnoses Not on filedocumented in this encounter Care Teams Trainmaster Relationship Specialty Start Date End Date Burke Rosenberg DO [address] [facility] [address] [place] [address] PCP - General 09/27/10 02/19/14 documented as of this encounter
--- OUTSIDE RECORDS SUMMARY | 2024-06-27 01:59 | XMS_ITS | Encounter Summary ---
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) Social History Tobacco Use Types Packs/Day Years Used Date Smoking Tobacco: Never Assessed Alcohol Use Standard Drinks/Week Comments No 0 (1 standard drink = 0.6 oz pur e alcohol) Comments Unknown Sex and Gender Information Value Date Recorded Sex Assigned at Not on file 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 Sex 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
--- OUTSIDE RECORDS SUMMARY | 2024-06-27 01:59 | XMS_ITS | Encounter Summary ---
Author Organization [facility] Healthcare Address [address] [place] [address] Care Team Providers Care Farmworker Chicken [employer] Name Role Phone Burke Rosenberg DO Primary Care Provider [phone] Encounter Details Date Type Department Care Team (Late st Contact Info) Description 11/18/2010 8:25 AM CDT - 11/18/2010 11:01 AM CDT Hospital [place] [address] [address] Complication from renal dialysis device; Other specified procedure as the cause of abnormal reaction of patient or of later complication; Place of occurrence, residential institution; 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); End-stage renal disease (CMS/HCC) (HCC); 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); Compression of vein; Other specified circulatory system disorders Social History Tobacco Use Types Packs/Day Years Used Date Smoking Tobacco: Never Assessed Alcohol Use Standard Drinks/Week Comments No 0 (1 standard drink = 0.6 oz pur e alcohol) Comments Unknown Sex and Gender Information Value Date Recorded Sex Assigned at Not on file Legal Sex Female 1:13 PM SCOOP FILLER Gender Identity Not on file Sexual Orientation Not on file documented as of this encounter Plan of Treatment Not on file documented as of this encounter Visit Diagnoses Diagnosis Complication from renal dialysis device Other specified procedure as the cause of abnormal reaction of patient or of later complication Place of occurrence, residential institution 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
--- OUTSIDE RECORDS SUMMARY | 2024-06-27 01:59 | XMS_ITS | Encounter Summary ---
Author Organization [facility] Healthcare Address [address] [place] [address] Care Team Providers Care Poultry Culler Name Role Phone Unavailable Primary Care Provider Unavailabl e Encounter Details Date Type Department Care Team (Late st Contact Info) Description 03/18/2010 12:01 AM CDT - 03/18/2010 11:59 PM CDT Hospital Encounter [facility] Umesh Scruggs MD [address] [place] [address] Postherpetic polyneuropathy; Other disorders of coccyx; Neuralgia, neuritis or radiculitis Social History Tobacco Use Types Packs/Day Years Used Date Smoking Tobacco: Never Assessed Comments Unknown Sex and Gender Information Value Date Recorded Sex Assigned at Not on file Legal Sex Female 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
--- OUTSIDE RECORDS SUMMARY | 2024-06-27 01:59 | XMS_ITS | Encounter Summary ---
Author Organization [facility] Facility Care Team Providers Care Forming Process Worker Name Role Phone Burke Rosenberg DO Primary Care Provider [phone] Encounter Details Date Type Department Care Team (Latest Contact Info) Description 01/28/2012 - 01/28/2012 11:59 PM CDT Hospital Encounter [facility]ay[facility] [address] [place] [address] Pre-operative cardiovascular examination Social History Tobacco Use Types Packs/Day Years Used Date Smoking Tobacco: Never Assessed Alcohol Use Standard Drinks/Week Comments No 0 (1 standard drink = 0.6 oz pur e alcohol) Comments Unknown Sex and Gender Information Value Date Recorded Sex Assigned at Not on file Legal Sex Female 1:13 PM VOCATIONAL TECHNICAL EDUCATION TEACHER Gender Identity Not on file Sexual Orientation Not on file documented as of this encounter Plan of Treatment Not on file documented as of this encounter Visit Diagnoses Diagnosis Pre-operative cardiovascular examination documented in this encounter Care Teams Forming Process Worker Relationship Specialty Start Date End Date Burke Rosenberg DO [address] [address] PCP - General 09/27/10 02/19/14 documented as of this encounter
--- OUTSIDE RECORDS SUMMARY | 2024-06-27 01:59 | XMS_ITS | Encounter Summary ---
Author Organization [facility] Facility Care Team Providers Care Broach Grinder Name Role Phone Burke Rosenberg DO Primary Care Provider Encounter Details Date Type Department Care Team (Late st Contact Info) Description 01/01/2011 - 01/01/2011 11:59 PM CDT Hospital Encounter [facility] Raghav Geller MD [address] [place] [address] Other specified pre-operative examination; Awaiting organ transplant Social History Tobacco Use Types Packs/Day Years Used Date Smoking Tobacco: Never Assessed Alcohol Use Standard Drinks/Week Comments No 0 (1 standard drink = 0.6 oz pur e alcohol) Comments Unknown Sex and Gender Information Value Date Recorded Sex Assigned at Not on file 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
--- OUTSIDE RECORDS SUMMARY | 2024-06-27 01:59 | XMS_ITS | Encounter Summary ---
Author Organization 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 Hospital Encounter [facility] Social History Tobacco Use Types Packs/Day Years Used Date Smoking Tobacco: Never Assessed Alcohol Use Standard Drinks/Week Comments No 0 (1 standard drink = 0.6 oz pur e alcohol) Comments Unknown Sex and Gender Information Value Date Recorded Sex Assigned at Not on file 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
--- OUTSIDE RECORDS SUMMARY | 2024-06-27 01:59 | XMS_ITS | Encounter Summary ---
Author Organization [facility] Care Team Providers Care Washer Off Name Role Phone Burke Rosenberg DO Primary Care Provider [phone] Encounter Details Date Type Department Care Team (Latest Contact Info) Description 02/09/2013 10:19 AM CDT - 02/25/2013 6:37 PM T Hospital Encounter [facility] Matheus Camacho MD [address] [facility] [address] [place] [address] 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); Pneumonia due to infectious organism; Thrombotic microangiopathy (HCC); Pleural effusion; Secondary hyperparathyroidism, renal (HCC); Herpes zoster with other complication; End-stage renal disease (CMS/HCC) (HCC); Acquired hemolytic anemia (HCC); Renal osteodystrophy; Other disorders of arteries and arterioles; Other specified diseases of hair and hair follicles; 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); Hypothyroidism; Neuralgia, neuritis or radiculitis; Coronary atherosclerosis of benton coronary artery; Other transfusion reaction; Hyperpotassemia; Generalized pain; Osteoporosis; Other chest pain; Disorder of phosphorus metabolism; Other specified procedure as the cause of abnormal reaction of patient or of later complication; Place of occurrence, residential institution; Antineoplastic and immunosuppressive drugs causing adverse effect in therapeutic use Social History Tobacco Use Types Packs/Day Years Used Date Smoking Tobacco: Never Assessed Alcohol Use Standard Drinks/Week Comments No 0 (1 standard drink = 0.6 oz pur e alcohol) Comments Unknown Sex and Gender Information Value Date Recorded Sex Assigned at Not on file Legal Sex Female 1:13 PM YAM CURER Gender Identity Not on file Sexual Orientation Not on file documented as of this encounter Last Filed Vital Signs Vital Sign Reading Time Taken Comments Blood Pressure 145/63 02/25/2013 3:15 PM CDT Pulse 58 02/25/2013 3:15 PM CDT Temperature - - Respiratory Rate - - Oxygen Saturation 100% 02/25/2013 3:15 PM CDT Inhaled Oxygen Concentration - - Weight 53.7 kg (118 lb 4.4 oz) 02/24/2013 11:22 PM CDT Height 157.5 cm (5' 2 ) 02/09/2013 1:04 PM CDT Body Mass Index 26.7 03/08/2013 1:56 PM CDT documented in this encounter Discharge Summaries * Provider, MD Diego - 02/25/2013 12:00 AM CDT Patient: Amanda Dunlap Reg No: [id number] [facility] #: [id number] Admit Dt.: 02/09/2013 Dischg Dt: 02/25/2013 : 1935 Room No: [id number] Attending: Raghav Hart M.D. Dictating: Naty Borges M.D. 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 The patient was anuric on dialysis and had an estimated dry weight of 50.5 kilograms. She was admitted to [facility] on 02/09/13 for a donor renal transplant which she received by surgeon Dr. Matheus Mahmood on 02/10/13. This was a pediatric DCD kidney. The patient underwent induction immunosuppression with thymoglobulin 50 mg in the operating room followed by 100 mg on postoperative day one and day two. She also received CellCept 1000 mg by mouth times one preoperative as well as prednisone. She was then transitioned to triple regimen immunosuppression in the form of prednisone taper, tacrolimus, and myfortic. The patient had delayed graft function postoperatively with minimal urine output. The patient is very volume sensitive and did have significant pulmonary edema on chest x-ray which was also concerning for a possible pneumonia. Intravenous Lasix was initiated along with intravenous antibiotics for presumed hospital acquired pneumonia, in the form of cefepime and vancomycin. During the patient's hospital course, she was noted to have significant drop in her hemoglobin which was initially attributed to surgically related blood loss in the setting of anemia of chronic disease. However, she remained transfusion-dependent with hemoglobins dropping as low as 6.5 and therefore a workup for thrombotic microangiopathy was pursued. The patient did have evidence of hemolysis with an elevated lactic acid dehydrogenase, a low haptoglobin, and schistocytes noted on the peripheral smear. Hematology was consulted for possible hemolytic uremic syndrome, atypical versus TTP. Her immunosuppressants were changed and tacrolimus, which was thought to be the offending agent, was discontinued. Another cause of the possible thrombotic microangiopathy was that the patient's blood pressures had been running quite high with systolics in the 160's to 170's which the pediatric kidney most likely was not accustomed to and this sheer force may have caused some component of microangiopathy with hemolysis. The patient was monitored with serial lactic acid dehydrogenase and haptoglobin levels. The tacrolimus level persisted to remain high despite stopping the medication. Therefore, the decision was made to proceed with plasmapheresis. The patient received one treatment course of plasma pheresis on 02/24/13 which she tolerated well. A laboratory assessment from 02/24/13 showed that there was no evidence of schistocytes on peripheral smear and the patient's lactic acid dehydrogenase was downtrending to 457. Given the fact that the Prograf level was undetectable, further plasmapheresis was not pursued. Of note, the patient did have an Vik TS 13 level which was low at 51. Another possible cause of the thrombocytopenic microangiopathy was antibiotic related with possibly due to cefepime. This was changed to moxifloxacin for completion of the possible hospital acquired pneumonia. The only cultures that were positive were mycoplasma IgM and therefore the patient was treated with a 5 day course of azithromycin. The patient's renal function continued to improve with time. At the time of her discharge, the creatinine was 1.29 and she was voiding without any difficulty. As far as immunosuppressants, given the fact that she did have a possible TMA secondary to tacrolimus, this agent was discontinued. The patient received one dose of belatacept 525 mg on 02/22/13, and will receive her next dose on 03/14/13, which will be continued at a dose of 500 mg every two weeks until June, at which point the dose will be decreased to 250 mg intravenously every month. The patient was noted to have Loly-Whittington virus sero positive status and this was confirmed prior to her receiving the belatacept. DISCHARGE MEDICATIONS: 1. Belatacept 500 mg intravenous infusion every two weeks starting on 03/14/13 until June of 2013, at which time the dose will be decreased to 250 mg intravenously every four weeks. 2. Myfortic 720 mg by mouth twice daily. 3. Prednisone 10 mg daily. 4. Amitriptyline 25 mg by mouth at bedtime as needed sleep aid. 5. Aspirin 81 mg daily. 6. Azithromycin 250 mg times three days. 7. Boniva 150 mg monthly on the thursday for osteoporosis. 8. Cholecalciferol 2000 international units daily. 9. Clonidine 0.1 mg by mouth at bedtime. 10. Docusate/senna one tablet by mouth twice daily as needed constipation. 11. Famotidine 20 mg by mouth daily. 12. Fluconazole 200 mg orally. 13. Metoprolol 75 mg by mouth twice daily. 14. Norvasc 10 mg by mouth daily. 15. Prednisone 10 mg by mouth daily. 16. Synthroid 100 micrograms, one tablet daily. 17. Valganciclovir three times a week, Thursday, Thursday and Thursday. FOLLOWUP: The patient will have followup with Transplant Surgery as well as the Renal Transplant Team. She will be receiving the assistance of home health. Reviewed by Naty Borges M.D. 03/03/2013 04:49 P Naty Borges M.D. Edited and Electronically Signed By Raghav Hart M.D. 03/05/2013 09:27 A Raghav Hart M.D. MARTA/natali #[id number] Editing MT: TD: 02/26/2013 13:56:00 cc: Raghav Hart M.D. Areli Bermudez M.D. Mark S. Pelikan, D.O. documented in this encounter Medications at Time of Discharge metoprolol (LOPRESSOR) 50 mg tablet Take 50 mg by mouth 2 times daily. 02/11/2013 12/25/2017 predniSONE (DELTASONE) 5 mg tablet Take 5 mg by mouth preschool aide before breakfast. 02/10/2013 05/21/2018 documented as of this encounter H&P Notes * Provider, MD Diego - 02/09/2013 12:00 AM CDT Patient: Amanda Dunlap Reg No: [id number] [facility] #: [id number] Admit Dt.: 02/09/2013 : 1935 Room No: [id number] Attending: Matheus Mahmood M.D. Dictating: LIZ Agrawal ADMISSION HISTORY PHYSICAL ADMISSION DIAGNOSIS (ES): End-stage renal disease. CHIEF COMPLAINT: Admitted as primary for DCD pediatric kidney transplant. HISTORY OF PRESENT ILLNESS: Mrs. 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 She underwent treatment in 2009 with Cytoxan, MMF and prednisone; however, was complicated by constipation, and then the patient would develop shingles in the lower back including a fold area resulting in post herpetic neuralgia. Upon admission today, she currently undergoes hemodialysis every Thursday, , and Thursday via a left upper extremity graft, currently makes no urine at baseline. The patient's home avionics systems technician is Dr. Berman, and she states her dry weight is around 115 pounds. Upon arrival today, the patient denies any chest pain, shortness of breath, nausea or vomiting or change in her health status. She does complain with increasing fatigue, as she continues on hemodialysis. The patient also states last week she was prescribed Bactrim-DS by her transit planner for folliculitis on her back. The patient had been taking one double strength tablet two times per day; however, was recently reduced to daily due to her renal disease. PAST MEDICAL AND SURGICAL HISTORY: 1. 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 2. Hypertension. 3. Hypothyroidism. 4. Varicella zoster of the S1 dermatome with subsequent post herpetic neuralgia. 5. 3, para 2, spontaneous 1. 6. 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 On January 26, 2013, Hepatitis-B core antibody positive, Hepatitis-B surface antibody positive, Hepatitis-B surface antigen negative. 7. Status post left upper extremity arteriovenous graft complicated by thrombosis requiring thrombectomy and venous angioplasty. Per patient report, she gets her graft evaluated every six weeks at [facility]. 8. Status post a total parathyroidectomy in 1994. 9. Right lower leg vein ligation in 1991. 10. Plastic Surgery for a fractured nose in 1990. MEDICATIONS: Home medications include: 1. Norvasc 10 milligrams every day. 2. Toprol-XL 25 milligrams every day. 3. Amitriptyline 25 milligrams at bedtime. 4. Synthroid 100 micrograms every day. 5. Lisinopril 20 milligrams two times per day. 6. Boniva 150 milligrams every month (thursday). 7. Bactrim double strength one tablet every day for folliculitis. 8. TUMS 1000 milligrams three times per day with meals, 750 milligrams with snacks. ALLERGIES: Allergies include tetracycline, Macrobid, Keflex, and liquid codeine. SOCIAL HISTORY: The patient presents to the hospital with her , daughter, and granddaughter. 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 The patient denies any history of smoking, alcohol, or illicit drug use. The patient does have a history of a blood transfusion. FAMILY HISTORY: The patient's father is at the age of 63 due to heart disease. The patient's mother was at the age of 67 due to pancreatic cancer. The patient has one sister who is alive, survived colon cancer. The patient's brother was diagnosed as a diabetic. REVIEW OF SYSTEMS: Review of systems is otherwise negative. Please refer to history of present illness. PHYSICAL EXAMINATION: Vital Signs: Vital signs upon admission: Temperature 36.5. Constitutional: In general, a female in no acute distress. HEENT / Neck: Normocephalic and atraumatic. Sclerae are anicteric bilaterally. Chest: Cardiovascular: Regular rate and rhythm. Lungs: Clear to auscultation bilaterally. Abdomen: Soft, nontender, and nondistended. No palpable masses noted. Extremities: No lower extremity edema. Palpable pedal pulses. Palpable femoral pulses. Neurologic: Alert and oriented times four. Skin: Warm, dry, and intact. LABORATORY AND X-RAY DATA: Laboratory data: Admission laboratories and serologies are pending. 1. Stress echocardiogram January 26, 2013: Negative for myocardial ischemia. 2. Electrocardiogram dated January 26, 2013: Normal sinus rhythm. 3. Cardiac catheterization dated October 13, 2008 with minimal coronary artery disease with 30% circumflex lesion and a 40% right coronary artery lesion with a normal ejection fraction. 4. Upper endoscopy in September,: Consistent with Schatzki's ring, was dilated, hiatal hernia, and otherwise normal examination. 5. Per patient report, she had a colonoscopy in August, with the recommendation to repeat in ten years. ASSESSMENT AND PLAN: As previously stated, Mrs. Dunlap is a 77-year-old female with the history of ANCA vasculitis and end-stage renal disease who was admitted today for a primary donor after cardiac pediatric kidney transplant. 1. The patient remained nothing by mouth until further notice. 2. Immunosuppression ordered and refrigeration operator to the Operating Room. Thymoglobulin 50 milligrams, Solumedrol 350 milligrams, CellCept 1000 milligrams. 3. Consents for both the donor after cardiac procedure and blood products assigned and placed in the patient's chart. All questions answered to the patient's satisfaction. 4. Will continue to follow up on admission laboratories. The patient underwent hemodialysis with full session 24 hours prior to admission. We will also follow up on Hepatitis-B serologies. LIZ Agrawal Electronically Signed By Matheus Mahmood M.D. 04/07/2013 08:36 A Areli Monteiro/geetha #[id number] Editing MT: TD: 02/09/2013 14:56:00 cc: LIZ Agrawal M.D. documented in this encounter Consult Notes * Provider, MD Diego - 02/25/2013 12:00 AM CDT Patient: Amanda Dunlap Reg No: [id number] [facility] #: [id number] Admit Dt.: 02/09/2013 : 1935 Room No: OTHER Attending: Matheus Mahmood M.D. Consulting: Jovani Ding M.D. Dictating: Evan Stubbs M.D. Service Dt: 02/25/2013 CONSULTATION REPORT REASON FOR CONSULTATION: Treatment for pneumonia in the setting of suspected cefepime-induced hemolytic anemia. 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 Currently admitted at [facility] on February 09 for a cadaveric kidney transplant. Currently eleven days post transplant with hospitalization complicated by hospital acquired pneumonia and new-onset hemolytic anemia. The patient had been started on vancomycin and cefepime. The patient has hemolytic anemia. There was a concern that it could be secondary to cefepime and we are consulted for consideration of other antibiotics for treatment of hospital acquired pneumonia. The patient currently has improved significantly from her shortness of breath and pleuritic chest pain. He denies any fevers or chills. MEDICATIONS: The patient is on: 1. Meropenem 500 mg IV q 12. 2. Vancomycin 500 mg IV q 24. 3. Fluconazole. 4. Valganciclovir for prophylaxis. 5. Prednisone. 6. Tacrolimus. PHYSICAL EXAMINATION: The patient is asymptomatic, doing well. Afebrile. He has always remained afebrile. Pulmonary is clear to auscultation bilaterally. His abdomen has a surgical wound without surrounding erythema. LABORATORY AND X-RAY DATA: He has no leukocytosis. Hemoglobin of 9.8, and has required transfusion. Imaging: The patient has a CT scan showing multifocal diffuse ground glass opacities predominantly in the upper lobe . Serial chest x-ray: The opacities have improved mildly from diagnosis of pneumonia until today. IMPRESSION AND RECOMMENDATIONS: The patient is a 77-year-old female with a medical history of P-ANCA vasculitis and end-stage renal disease now status post eleven days of cadaveric kidney transplant complicated by hospital acquired pneumonia and hemolytic anemia. Hospital-acquired pneumonia and hemolytic anemia: The patient's history recalls having a relative also with cough prior to being admitted for the kidney transplant. She is not sure when she really started with the symptoms. There is a possibility that this is a hospital-acquired pneumonia, but there also could be a possibility that it is viral syndrome or community-acquired pneumonia exacerbated after immunosuppression as protocol for transplant. We recommend checking for mycoplasma serologies as this could explain the pneumonia and the hemolytic anemia. Low probability that hemolytic anemia could be caused by cefepime as treatment for hospital-acquired pneumonia, but agree with meropenem for continued treatment. We recommend continuing meropenem and vancomycin for a total of ten days, which is three more days from initial consultation. Thank you very much for this consult. Please call with questions. Evan Stubbs M.D. Electronically Signed By Jovani Ding M.D. 04/13/2013 03:50 P Jovani Ding M.D. /irvin #[id number] Editing MT: roni TD: 02/25/2013 14:33:00 cc: Areli Hodges M.D. Jason Reid Wellen, M.D. * Provider, MD Diego - 02/22/2013 12:00 AM CDT Patient: Amanda Dunlap Reg No: [id number] [facility] #: [id number] Admit Dt.: 02/09/2013 : 1935 Room No: [id number] Attending: Matheus Mahmood M.D. Consulting: Marichuy Bennett M.D. Dictating: Eitan Gonzalez M.D. Service Dt: 02/22/2013 CONSULTATION REPORT PHYSICIAN REQUESTING CONSULTATION: Matheus Mahmood M.D. REASON FOR CONSULTATION: Anemia. CHIEF COMPLAINT: I presented for my kidney transplant. BRIEF HISTORY: This is a 77-year-old woman with a history of end-stage renal disease secondary to a P-ANCA vasculitis diagnosed by biopsy in 2008. She was initially treated with Cytoxan, mycophenolate mofetil and prednisone. She was on Thursday, and Thursday hemodialysis via a left AV fistula prior to her presentation for this admission. She was called in for a donor renal transplant on February 09, 2013 and went to the OR for transplant on February 10. She was noted postoperatively to have worsening anemia with a pratik of her hemoglobin of 6.5 on February 15 and concern for postoperative bleeding was raised. A CT scan of the chest, abdomen and pelvis on February 19 showed no evidence of hematoma, but did note a multifocal pneumonia. There were signs of possible hemolysis with an elevated LDH and a low haptoglobin. Hematology was consulted for hemolytic workup. Discussing further with the primary team, there has been some concern that Tacrolimus has been a causative agent and they have discontinued her off of this medication and are planning to start a new immunosuppressant called Belatacept. They also had some concern that her hypertension in the setting of what is reported to be a pediatric kidney which was transplanted into her could be causing some of these issues. On evaluation, the patient herself reports that she has been doing well. Her graft has been making good urine. She has had only pain at the site of her catheter insertion. She otherwise has been feeling good with respect to her breathing and appetite. She has had no evidence of bleeding in her stool or otherwise. PAST MEDICAL HISTORY: 1. Hypertension. 2. Primary hyperparathyroidism. 3. Mild coronary artery disease. 4. End-stage renal disease, previously on hemodialysis, status post kidney transplant on February 10, 2013. 5. Prior history of P-ANCA vasculitis. 6. Hypothyroidism. MEDICATIONS: 1. Amlodipine. 2. Aspirin. 3. Belatacept. 4. Clonidine. 5. Docusate. 6. Senna. 7. Valcyte. 8. Vancomycin. 9. Bactrim. 10. Prednisone 10 mg daily. 11. Mycophenolate mofetil. 12. Moxifloxacin. 13. Metoprolol. 14. Synthroid. 15. Fluconazole. 16. Insulin. ALLERGIES: 1. Tetracycline. 2. Keflex. 3. Macrobid. FAMILY HISTORY: The patient's mother at 67 from pancreatic cancer. The patient's father at 63 from myocardial infarction. The patient's sister is 82 with colon cancer. The patient's brother is 68 with diabetes. SOCIAL HISTORY: She has never smoked tobacco, used alcohol or illicit drugs. 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 She is and lives with her , who is here at bedside for the evaluation. REVIEW OF SYSTEMS: A full review of systems is performed and is negative except as otherwise noted in the history of present illness. PHYSICAL EXAMINATION: Vital Signs: Blood pressure 145/74, heart rate 79, respiratory rate 18, temperature 36.6 degrees Celsius, oxygen saturation 100% on room air. Constitutional: She is in no acute distress, appears her stated age. HEENT: Normocephalic, atraumatic. Moist mucous membranes. No oropharyngeal lesions. Neck: No supraclavicular or cervical lymphadenopathy is noted. Chest: Regular rate and rhythm. No murmurs, rubs or gallops. Lungs: Clear lungs to auscultation bilaterally. Abdomen: Nontender, nondistended. Normoactive bowel sounds. No hepatosplenomegaly. There is a healing surgical incision site from her prior kidney transplant on this admission. Extremities: There is no edema of the lower extremities. Skin: Scattered ecchymoses on the arms. Lymph node examination shows no lymphadenopathy. Neurologic: She is alert and oriented, moving all extremities. Cranial nerves are grossly intact. LABORATORY AND X-RAY DATA: White count 10.5, hemoglobin 10.4, hematocrit 31.9, platelets 165, MCV 29.7. Electrolytes show a sodium of 138, potassium 5.9, BUN 62, creatinine 1.72, chloride 107, bicarb 21, glucose 141. From February 22, there is an LDH that is 598. There is a reticulocyte count of 2.7%. C3 and C4 levels are within normal limits with a C3 level of 110, C4 level 233. On February 09, there were iron studies showing a serum iron of 38, an iron binding capacity of 185, percent saturation of 21%, ferritin of 700. Haptoglobin was less than 10. B12 from February 20 was 1910. Folate 12.6. There is a negative direct Emerita from February 19, negative indirect Emerita from February 19. IMPRESSION: This is a 77-year-old woman with a history of a recent renal transplant with ongoing recent hemolytic anemia, now improving with a stable hemoglobin on her most recent checks. We agree that this is likely secondary to ongoing hemolysis and we suspect Tacrolimus is likely the offending agent. We agree with switching her immunosuppression to an alternative agent at this time. Other possibilities to include antibiotics, although she does not have a positive direct Emerita as we would sometimes expect in this situation, or physical or anatomical issues related to her kidney transplant and ongoing hypertension, especially given that the patient was given a rather small pediatric kidney per the primary team. RECOMMENDATIONS: At this point, to summarize our recommendations, we would agree with discontinuation of Tacrolimus and alternate immunosuppression. We have a low concern for atypical hemolytic uremic syndrome or TTP. We agree with control of hypertension. We will continue to monitor her counts and follow along with you. We would monitor an LDH and haptoglobin intermittently to monitor response to therapy and resolution of her hemolysis. Eitan Gonzalez M.D. Electronically Signed By Marichuy Bennett M.D. 02/26/2013 02:35 P Areli Wilson/maría #[id number] Editing MT: TD: 02/23/2013 09:20:00 cc: Areli Santacruz M.D. Matheus Mahmood M.D. * Provider, MD Diego - 02/09/2013 12:00 AM CDT Patient: Amanda Dunlap Reg No: [id number] H #: [id number] Admit Dt.: 02/09/2013 : 1935 Room No: [id number] Attending: Matheus Mahmood M.D. Consulting: Elodia Florentino M.D. Dictating: Angelique Small M.D. Service Dt: 02/09/2013 CONSULTATION REPORT PHYSICIAN REQUESTING CONSULTATION: Dr. Matheus Mahmood - Transplant Surgery REASON FOR CONSULTATION: Nini-transplant dialysis management and immunosuppression recommendations in a potential kidney transplant recipient. 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 Her last hemodialysis was yesterday and it was uneventful. She reports dialyzing three times a week for [id number]-vim-[id number]-half hours. She has a left AV fistula and her dry weight is 50.5 kilograms. She makes no urine. Her only trouble has been with a low dry weight which is the cause of her hypotension at the end of her treatment. Pre-dialysis her blood pressure is usually 190s systolic and can drop to 100 or 110 after treatment. On non-dialysis days, her blood pressure is usually 130s to 140s. Of note, she was recently found to have an elevated phosphorous of 6.6 with an elevated PTH of 698. Initially she was on Fosrenol, but had to discontinue this medication, as she couldn't tolerate it. She was then started on Tums and because of the high calcium she was going to transition to Renvela, which she hasn't started yet. In the last few days, she reports skin lesions on her back; question if this is related to her high phosphorous, but she was started on Bactrim by her avionics systems technician. PAST MEDICAL HISTORY: 1. 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 She has been on hemodialysis since August 2009. She dialyzes on Tuesdays, , and Saturdays through a left AV fistula. Her dry weight is 50.5 kilograms. 2. P-ANCA vasculitis. 3. Hypertension. 4. Hypothyroidism. 5. 3, para 2 with one spontaneous . 6. Serologic evidence of prior hepatitis-B infection. 7. Varicella zoster of the S1 dermatome. 8. Minimal coronary artery disease with 30% circumflex lesion and a 40% right coronary artery lesion per catheterization in October 2008 with normal ejection fraction. 9. History of primary hyperparathyroidism, status post partial thyroidectomy in 1994. 10. Status post left upper extremity AV graft complicated by thrombosis requiring thrombectomy and venous angioplasty. 11. Right lower leg vein ligation. 12. Plastic surgery for a fractured nose. MEDICATIONS: 1. Levothyroxine 0.1 mg daily. 2. Lisinopril 20 mg b.i.d. 3. Amlodipine 10 mg daily. 4. Amitriptyline 25 mg q at bedtime. 5. Metoprolol 25 mg b.i.d. 6. Boniva monthly. 7. Tums 1000 mg t.i.d. with meals, 750 mg with snacks. She was in the wait to transition to [facility]. 8. Aspirin p.r.n. ALLERGIES: TETRACYCLINE, KEFLEX, and MACROBID cause a rash. CODEINE causes a headache. FAMILY HISTORY: Father at the age of 63 of heart disease. Mother at 67 of pancreatic cancer. She has one sister who is 82 and has had colon cancer. One brother is 68 and has recently been diagnosed with diabetes. She has a daughter, age 47, with diabetes, and a daughter, age 41, who is alive and well. She thinks she had a grandmother with kidney disease. SOCIAL HISTORY: She is and lives at home with her . 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 She denies any history of tobacco, alcohol, or recreational drug use. She has no tattoos or piercings. She received a Pneumovax in 2010. She was vaccinated for the flu last season. She received a transfusion in 2009. REVIEW OF SYSTEMS: Please see history of present illness. All other systems negative. PHYSICAL EXAMINATION: Vital Signs: Temperature 36.5, heart rate 72, blood pressure 182/82, respiratory rate 18, oxygen saturation 100% on room air. Weight 53.5 kilograms. Constitutional: In general, this is a well-appearing, fatigued, white female, very pleasant, in no acute distress. HEENT: Head is normocephalic, atraumatic. Extraocular movements are intact. There are anicteric sclerae. Mucous membranes are moist with no exudates. Neck: Neck is supple with no evidence of cervical lymphadenopathy, jugulovenous distension, or thyromegaly. Chest: Cardiovascular; heart with regular rate and rhythm. Normal S1 and S2. No murmurs, rubs, or gallops. Lungs: Clear to auscultation bilaterally with no wheezes, rales, or rhonchi. Abdomen: Positive bowel sounds. Soft, nontender, and nondistended with no hepatosplenomegaly. Extremities: Lower extremities 2+ dorsalis pedis with no edema, clubbing, or cyanosis. Her feet are slightly cold to touch, but she has good distal pulses. There is a left upper arm AV graft with a positive thrill and bruit. Skin: On her upper back there are four to five purplish skin lesions measuring about 0.5 centimeters with no evidence of infection. LABORATORY AND X-RAY DATA: PTT 38.7, PT 11.1, INR 1.05. White count 4.5, hemoglobin 9.9, platelets 219. Hemoglobin A1c of 4.7. Sodium 139, potassium 4.7, chloride 93, bicarbonate 35, anion gap 11, glucose 79, BUN 73, creatinine 5.7, total protein 7.3, albumin 4.3, bilirubin 0.3, alkaline phosphatase 108, AST 27, ALT 15. Phosphorous 5.4. Uric acid 3.8. PTH from January 26, 2013 was 698. Phosphorous 6.2. Total cholesterol 151, triglycerides 62, HDL 59, LDL 70. Transferrin saturation 21%, total iron binding capacity 185, ferritin pending. Recipient blood group B+ on October 11, 2010 and April 01, 2010. Donor blood group B on February 09, 2013. Recipient HLA: A: 31, 32; B: 40(60), 13(64); C: 3, 8; DR: 4, 7. Donor HLA: A: 2, 34; B: 64, 62, C: 10, 8; DR: 17, 7; DQ2, -. ERA by HERI peak Class I 1%, Class II 8%; current Class I 0%, Class II 5%. Recipient serologies: HSV-1 positive, HSV-2 negative, EBV positive, VZV positive, CMV negative, hepatitis-B core antibody positive, hepatitis-B surface antibody positive, hepatitis-B surface antigen negative, hepatitis-B virus negative, HIV negative, RPR negative. Donor serologies: EBV positive, CMV positive, hepatitis-C, HIV, and hepatitis-B core antibody and surface antigen all negative. RPR negative. Dental clearance was obtained by dentist Albin Alanis DDS on July 12, 2012. Mammogram February 18, 2012: Normal. Pap August 04, 2012: Normal. Colonoscopy July 2004: Normal. Recommendations to repeat in ten years. Stress echocardiogram July 29, 2012: Negative. Chest X-ray showed hyperinflated lungs with a small pleural effusion. Electrocardiogram showed normal sinus rhythm with a heart rate in the 80s and no ST or T changes. IMPRESSION AND RECOMMENDATIONS: 1. End-stage renal disease: Currently, the patient is euvolemic and metabolically stable. There are no indications to proceed with hemodialysis today. 2. Transplant candidacy: The patient has no medical contraindications to proceed with donor renal transplant as the cross-match is negative and a suitable organ is available. 3. Immunosuppression: Recommend induction therapy with Thymoglobulin 5 mg per kilogram total. Suggest to do 50 mg intraoperatively followed by 100 mg in two consecutive days. It will be very important to do a slow infusion in order to avoid hypotension given the young age of the donor. 4. Renal osteodystrophy and secondary hyperparathyroidism: We will have to monitor her calcium and phosphorous levels vertebral closely post-transplantation. She may benefit from cinacalcet after transplantation. Finally, thank you for this consultation. We will follow the patient along with you. The patient was seen and evaluated with Dr. Elodia Florentino, who agrees with our assessment and plan. Reviewed by Angelique mSall M.D. 02/14/2013 05:13 P Angelique Small M.D. Edited and Electronically Signed By Elodia Florentino M.D. 02/15/2013 04:36 P Elodia Florentino M.D. [facility] #[id number] Editing MT: TD: 02/09/2013 20:50:00 cc: Areli Wang M.D. Paul George Lapoint, M.D. Suresh Mathew, M.D. Stephen M. Palmer, M.D. Mark S. Pelikan, D.O. Ana P Rossi, M.D. Gregory Albert Stynowick, M.D. Jason Reid Wellen, M.D. documented in this encounter Miscellaneous Notes * Op Note - Provider, MD Diego - 02/10/2013 12:00 AM CDT Patient: Amanda Dunlap Reg No: [id number] [facility] #: [id number] Admit Dt.: 02/09/2013 : 1935 Pt Type: 100 Room No: 95762 Attending: Matheus Mahmood M.D. Surgeon: Matheus Mahmood M.D. Dictating: Matheus Mahmood M.D. Service Dt: 02/10/2013 OPERATIVE REPORT FIRST DIRECTOR REPORT: Dr. Danna Mae ANESTHESIA: General. PREOPERATIVE DIAGNOSIS (ES): End-stage renal disease. POSTOPERATIVE DIAGNOSIS (ES): End-stage renal disease. NAME OF OPERATION: 1. Cadaveric renal transplant. 2. Separate ureteroneocystostomy with ureteral stent. 3. Back bench preparation of donor kidney. INDICATIONS FOR PROCEDURE: The patient is a 77 year-old female with end-stage renal disease secondary to P-ANCA vasculitis, presently on hemodialysis. A donor renal allograft became available from a [id number], 13 kg DCD patient. At the compatible cross-match the patient was explained the various risks of the operation including signing the consent form. DESCRIPTION OF PROCEDURE: Of note, the kidney was placed on pulsatile perfusion prior to implantation. The kidney was a right kidney. It was placed in the recipient's right iliac fossa and anastomosed to the external iliac artery and vein. The inferior vena cava from the donor was used as a vascular conduit. The ureter was anastomosed to the bladder over a JJ stent. Prior to any incisions made in the patient the kidney was removed from pulsatile perfusion and back table prepared under ice cold conditions. The surrounding perinephric fat and the remaining adrenal tissue were removed. The inferior vena cava was used as an extension by oversewing the superior pole portion of the vena cava and closing off the inferior vena cava with a DIMITRY stapler. At this point the patient was brought back into the operating room, placed on the table in the supine position, given general anesthesia. Sequential compression devices were placed on both lower extremities and a Rosales catheter was placed under sterile conditions and the bladder was irrigated. The patient was given a preoperative dose of Ancef within one hour prior to the surgical incision and this was ordered to be stopped within 24 hours of the surgery. The abdomen was then prepped with chlorhexidine and draped in a sterile fashion. A right lower quadrant Pride incision was made and taken through the fascia with electrocautery. The inferior epigastric artery and vein were ligated as well as the round ligament as well. Following placement of Bookwalter retractors the lymphatic channels overlying the external iliac artery and vein were removed with electrocautery. At this point the patient was given 2000 units intravenous heparin by Anesthesia. A Satinsky clamp was placed on the external iliac vein and a venotomy was created. The 7 centimeter renal allograft was brought onto the operative field and a venous anastomosis was made between the vena cava extension graft and the external iliac vein with 6-0 Prolene suture. Next, a Satinsky clamp was placed on the external iliac artery and an arteriotomy was created with a knife and a 3.5 millimeter punch. The renal artery was anastomosed with 6-0 Prolene suture in a running fashion. Prior to the completion of the arterial anastomosis the anastomosis was flushed with 5 mg of verapamil and the patient was given intravenous mannitol and intravenous Lasix by the Anesthesia team. Following removal of the vascular clamps it was prompted homogenous perfusion of the renal parenchyma and hemostasis was obtained. Next, the bladder was insufflated with antibiotic saline via the Rosales catheter. The detrusor muscle was incised with electrocautery and the bladder mucosa was visualized. The ureter was short and spatulated and mucosa / mucosa anastomosis was made with 6-0 PDS suture over a JJ stent. Next, the detrusor muscle was closed over the ureteral anastomosis with interrupted 3-0 chromic sutures. A 19-[place] Paul drain was placed in the iliac fossa and exited laterally. The fascia was then closed with #1 looped PDS suture in running fashion. Subcutaneous tissue was irrigated and then closed with interrupted 3-0 Vicryl sutures and the skin was closed with rob. The patient was extubated in the operating room and taken to the postanesthesia care unit in stable condition. ESTIMATED BLOOD LOSS: 50 mL. INTRAOPERATIVE FLUIDS: 3200 mL of crystalloid. SPONGE/INSTRUMENT/NEEDLE COUNTS: Sponge, instrument and needle counts were all correct. CONDITION ON DISCHARGE FROM OPERATING ROOM: Condition on discharge is stable. PRESENCE STATEMENT: I, as the attending surgeon, was present throughout the entire procedure. Electronically Signed By Matheus Mahmood M.D. 04/07/2013 08:36 A Matheus Mahmood M.D. [facility] #[id number] Editing MT: [email or web address] TD: 02/14/2013 09:07:00 cc: Matheus Mahmood M.D. documented in this encounter Plan of Treatment Not on file documented as of this encounter Procedures Procedure Name Priority Date/Time Associated Diagnosis Comments BLOOD GLUCOSE, POC Routine 02/25/2013 11 :43 AM CDT BLOOD GLUCOSE, POC Routine 02/25/2013 5: 58 AM CDT SERUM MAGNESIUM Routine 02/25/2013 3:47 AM CDT SERUM LACTATE DEHYDROGENASE (LDH) Routine 02/25/2013 3:47 AM CDT PLASMA PROTHROMBIN TIME (PT) Routine 02/25/2013 3:47 AM CDT PLASMA PHOSPHORUS Routine 02/25/2013 3:4 7 AM CDT PLASMA BASIC METABOLIC PANEL Routine 02/25/2013 3:47 AM CDT BLOOD TACROLIMUS (FK-506), TROUGH DRUG LEVEL Routine 02/25/2013 3:47 AM CDT BLOOD CELL COUNT (CBC) Routine 3 3:47 AM CDT BLOOD ABO, RH, INDIRECT AB SCREEN Routine 02/25/2013 3:47 AM CDT BLOOD GLUCOSE, POC Routine 02/24/2013 11 :17 PM CDT BLOOD GLUCOSE, POC Routine 02/24/2013 5: 13 PM CDT MISCELLANEOUS CULTURE, CDR Routine 02/24 1:50 PM CDT BLOOD GLUCOSE, POC Routine 02/24/2013 11 :47 AM CDT BLOOD GLUCOSE, POC Routine 02/24/2013 6: 36 AM CDT SERUM MAGNESIUM Routine 02/24/2013 4:08 AM CDT SERUM LACTATE DEHYDROGENASE (LDH) Routine 02/24/2013 4:08 AM CDT SERUM HAPTOGLOBIN Routine 02/24/2013 4:0 8 AM CDT PLASMA PROTHROMBIN TIME (PT) Routine 02/24/2013 4:08 AM CDT PLASMA PHOSPHORUS Routine 02/24/2013 4:0 8 AM CDT PLASMA BASIC METABOLIC PANEL Routine 02/24/2013 4:08 AM CDT EXTRA SLIDE PREPARATION Routine 02/25/20 4:08 AM CDT BLOOD CELL COUNT (CBC) Routine 3 4:08 AM CDT ALL MICROBIOLOGY REPORT SECTION Routine 02/24/2013 12:00 AM CDT BLOOD POTASSIUM, MIXED VENOUS Routine 02/23/2013 8:59 PM CDT BLOOD GLUCOSE, POC Routine 02/23/2013 8: 33 PM CDT BLOOD GLUCOSE, POC Routine 02/23/2013 6: 04 PM CDT BLOOD GLUCOSE, POC Routine 02/23/2013 4: 46 PM CDT CRITICAL RESULT CALL BACK Routine 2012 12:48 PM CDT BLOOD POTASSIUM, MIXED VENOUS Routine 02/23/2013 12:48 PM CDT BLOOD GLUCOSE, POC Routine 02/23/2013 12 :17 PM CDT BLOOD GLUCOSE, POC Routine 02/23/2013 9: 53 AM CDT BLOOD POTASSIUM, MIXED VENOUS Routine 02/23/2013 6:51 AM CDT BLOOD GLUCOSE, POC Routine 02/23/2013 6: 10 AM CDT SERUM MAGNESIUM Routine 02/23/2013 3:54 AM CDT SERUM LACTATE DEHYDROGENASE (LDH) Routine 02/23/2013 3:54 AM CDT SERUM HAPTOGLOBIN Routine 02/23/2013 3:5 4 AM CDT PLASMA PHOSPHORUS Routine 02/23/2013 3:5 4 AM CDT PLASMA BASIC METABOLIC PANEL Routine 02/23/2013 3:54 AM CDT CRITICAL RESULT CALL BACK Routine 2012 3:54 AM CDT BLOOD TACROLIMUS (FK-506), TROUGH DRUG LEVEL Routine 02/23/2013 3:54 AM CDT BLOOD CELL COUNT (CBC) Routine 3 3:54 AM CDT BLOOD GLUCOSE, POC Routine 02/22/2013 8: 15 PM CDT BLOOD GLUCOSE, POC Routine 02/22/2013 5: 22 PM CDT BLOOD POTASSIUM, MIXED VENOUS Routine 02/22/2013 1:02 PM CDT BLOOD GLUCOSE, POC Routine 02/22/2013 11 :29 AM CDT BLOOD GLUCOSE, POC Routine 02/22/2013 6: 52 AM CDT SERUM MYCOPLASMA AB, IGG, IGM Routine 02/22/2013 3:46 AM CDT SERUM MAGNESIUM Routine 02/22/2013 3:46 AM CDT SERUM LACTATE DEHYDROGENASE (LDH) Routine 02/22/2013 3:46 AM CDT SERUM HAPTOGLOBIN Routine 02/22/2013 3:4 6 AM CDT PLASMA PHOSPHORUS Routine 02/22/2013 3:4 6 AM CDT PLASMA BASIC METABOLIC PANEL Routine 02/22/2013 3:46 AM CDT EXTRA SLIDE PREPARATION Routine 02/23/20 13 3:46 AM CDT BLOOD TACROLIMUS (FK-506), TROUGH DRUG LEVEL Routine 02/22/2013 3:46 AM CDT BLOOD CELL COUNT (CBC) Routine 3 3:46 AM CDT ELECTROCARDIOGRAPHY (ECG) 02/22/2013 BLOOD GLUCOSE, POC Routine 02/21/2013 9: 22 PM CDT BLOOD GLUCOSE, POC Routine 02/21/2013 5: 23 PM CDT BLOOD GLUCOSE, POC Routine 02/21/2013 11 :51 AM CDT BLOOD GLUCOSE, POC Routine 02/21/2013 8: 06 AM CDT SERUM VANCOMYCIN DRUG LEVEL Routine 02/21/2013 4:43 AM CDT SERUM MAGNESIUM Routine 02/21/2013 4:43 AM CDT SERUM LACTATE DEHYDROGENASE (LDH) Routine 02/21/2013 4:43 AM CDT SERUM HAPTOGLOBIN Routine 02/21/2013 4:4 3 AM CDT SERUM COMPLEMENT C4, QUANTITATIVE Routine 02/21/2013 4:43 AM CDT SERUM COMPLEMENT C3, QUANTITATIVE Routine 02/21/2013 4:43 AM CDT SERUM COMPLEMENT Routine 02/21/2013 4:43 AM CDT PLASMA PROTHROMBIN TIME (PT) Routine 02/21/2013 4:43 AM CDT PLASMA PHOSPHORUS Routine 02/21/2013 4:4 3 AM CDT PLASMA PARTIAL THROMBOPLASTIN TIME (PTT) Routine 02/21/2013 4:43 AM CDT PLASMA BASIC METABOLIC PANEL Routine 02/21/2013 4:43 AM CDT BLOOD TACROLIMUS (FK-506), TROUGH DRUG LEVEL Routine 02/21/2013 4:43 AM CDT BLOOD [id number] ACTIVITY Routine 02/22/20 13 4:43 AM CDT BLOOD CELL COUNT (CBC) Routine 3 4:43 AM CDT BLOOD POTASSIUM, MIXED VENOUS Routine 02/20/2013 9:14 PM CDT BLOOD GLUCOSE, POC Routine 02/20/2013 8: 22 PM CDT BLOOD GLUCOSE, POC Routine 02/20/2013 4: 19 PM CDT SERUM VANCOMYCIN, TROUGH DRUG LEVEL Routine 02/20/2013 2:31 PM CDT PLASMA POTASSIUM Routine 02/20/2013 2:31 PM CDT EXTRA SLIDE PREPARATION Routine 02/21/20 13 2:31 PM CDT CRITICAL RESULT CALL BACK Routine 2012 2:31 PM CDT BLOOD DIRECT ANTIGLOBULIN TEST Routine 02/20/2013 2:31 PM CDT BLOOD CELL MORPHOLOGIC EXAM Routine 02/20/2013 2:31 PM CDT BLOOD GLUCOSE, POC Routine 02/20/2013 11 :53 AM CDT BLOOD GLUCOSE, POC Routine 02/20/2013 8: 33 AM CDT BLOOD TACROLIMUS (FK-506), TROUGH DRUG LEVEL Routine 02/20/2013 4:16 AM CDT BLOOD CELL COUNT (CBC) Routine 3 4:16 AM CDT SERUM TROPONIN I Routine 02/20/2013 4:13 AM CDT SERUM MAGNESIUM Routine 02/20/2013 4:13 AM CDT SERUM LACTATE DEHYDROGENASE (LDH) Routine 02/20/2013 4:13 AM CDT SERUM FOLIC ACID Routine 02/20/2013 4:13 AM CDT SERUM CYANOCOBALAMIN (VITAMIN B12) Routine 02/20/2013 4:13 AM CDT PLASMA PROTHROMBIN TIME (PT) Routine 02/20/2013 4:13 AM CDT PLASMA PHOSPHORUS Routine 02/20/2013 4:1 3 AM CDT PLASMA PARTIAL THROMBOPLASTIN TIME (PTT) Routine 02/20/2013 4:13 AM CDT PLASMA PARATHYROID HORMONE (PTH), INTACT Routine 02/20/2013 4:13 AM CDT PLASMA BASIC METABOLIC PANEL Routine 02/20/2013 4:13 AM CDT BLOOD RETICULOCYTE COUNT Routine 013 4:13 AM CDT BLOOD GLUCOSE, POC Routine 02/19/2013 9: 10 PM CDT BLOOD CELL COUNT Routine 02/19/2013 4:47 PM CDT PARVOVIRUS PCR, CDR Routine 02/19/2013 4 :38 PM CDT CYTOMEGALOVIRUS (CMV) PCR, CDR Routine 02/19/2013 4:38 PM CDT SERUM LACTATE DEHYDROGENASE (LDH) Routine 02/19/2013 4:38 PM CDT SERUM HAPTOGLOBIN Routine 02/19/2013 4:3 8 PM CDT BLOOD GLUCOSE, POC Routine 02/19/2013 4: 10 PM CDT HISTOPLASMA ANTIGEN, CDR Routine 013 2:58 PM CDT BLOOD GLUCOSE, POC Routine 02/19/2013 11 :[address] CHEST WO CONTRAST Routine 02/19/2013 10:[address] ABDOMEN PELVIS WO CONTRAST Routine 02/19/2013 10:23 AM CDT BLOOD GLUCOSE, POC Routine 02/19/2013 7: 35 AM CDT URINE (AEROBIC) CULTURE, CDR Routine 02/19/2013 5:31 AM CDT URINE MICROSCOPY Routine 02/19/2013 5:31 AM CDT URINALYSIS Routine 02/19/2013 5:31 AM CDT SERUM MAGNESIUM Routine 02/19/2013 3:39 AM CDT SERUM LACTATE DEHYDROGENASE (LDH) Routine 02/19/2013 3:39 AM CDT SERUM BILIRUBIN, DIRECT Routine 02/20/20 13 3:39 AM CDT SERUM BILIRUBIN Routine 02/19/2013 3:39 AM CDT PLASMA PHOSPHORUS Routine 02/19/2013 3:3 9 AM CDT PLASMA BASIC METABOLIC PANEL Routine 02/19/2013 3:39 AM CDT BLOOD TACROLIMUS (FK-506), TROUGH DRUG LEVEL Routine 02/19/2013 3:39 AM CDT BLOOD DIRECT ANTIGLOBULIN TEST Routine 02/19/2013 3:39 AM CDT BLOOD CELL COUNT (CBC) Routine 3 3:39 AM CDT BLOOD ABO, RH, INDIRECT AB SCREEN Routine 02/19/2013 3:39 AM CDT ALL MICROBIOLOGY REPORT SECTION Routine 02/19/2013 12:00 AM CDT ALL MICROBIOLOGY REPORT SECTION Routine 02/19/2013 12:00 AM CDT ALL MICROBIOLOGY REPORT SECTION Routine 02/19/2013 12:00 AM CDT ALL MICROBIOLOGY REPORT SECTION Routine 02/19/2013 12:00 AM CDT BLOOD GLUCOSE, POC Routine 02/18/2013 8: 43 PM CDT XR CHEST 1 VIEW Routine 02/18/2013 4:40 PM CDT SERUM VANCOMYCIN, TROUGH DRUG LEVEL Routine 02/18/2013 4:34 PM CDT PLASMA POTASSIUM Routine 02/18/2013 4:34 PM CDT CRITICAL RESULT CALL BACK Routine 2012 4:34 PM CDT BLOOD GLUCOSE, POC Routine 02/18/2013 4: 07 PM CDT BLOOD GLUCOSE, POC Routine 02/18/2013 11 :46 AM CDT BLOOD GLUCOSE, POC Routine 02/18/2013 7: 35 AM CDT SERUM MAGNESIUM Routine 02/18/2013 4:41 AM CDT PLASMA PHOSPHORUS Routine 02/18/2013 4:4 1 AM CDT PLASMA BASIC METABOLIC PANEL Routine 02/18/2013 4:41 AM CDT BLOOD TACROLIMUS (FK-506), TROUGH DRUG LEVEL Routine 02/18/2013 4:41 AM CDT BLOOD CELL COUNT (CBC) Routine 3 4:41 AM CDT BLOOD GLUCOSE, POC Routine 02/17/2013 8: 38 PM CDT BLOOD GLUCOSE, POC Routine 02/17/2013 5: 14 PM CDT BLOOD GLUCOSE, POC Routine 02/17/2013 11 :25 AM CDT CHEST RADIOGRAPHY, FRONTAL (AP), LATERAL Routine 02/17/2013 8:14 AM CDT BLOOD GLUCOSE, POC Routine 02/17/2013 7: 28 AM CDT SERUM MAGNESIUM Routine 02/17/2013 4:08 AM CDT PLASMA RENAL PANEL Routine 02/17/2013 4: 08 AM CDT BLOOD TACROLIMUS (FK-506), TROUGH DRUG LEVEL Routine 02/17/2013 4:08 AM CDT BLOOD CELL COUNT (CBC) Routine 3 4:08 AM CDT BLOOD GLUCOSE, POC Routine 02/16/2013 8: 44 PM CDT BLOOD GLUCOSE, POC Routine 02/16/2013 3: 47 PM CDT BLOOD GLUCOSE, POC Routine 02/16/2013 11 :50 AM CDT BLOOD GLUCOSE, POC Routine 02/16/2013 7: 39 AM CDT SERUM MAGNESIUM Routine 02/16/2013 4:07 AM CDT PLASMA RENAL PANEL Routine 02/16/2013 4: 07 AM CDT BLOOD TACROLIMUS (FK-506), TROUGH DRUG LEVEL Routine 02/16/2013 4:07 AM CDT BLOOD CELL COUNT (CBC) Routine 3 4:07 AM CDT BLOOD GLUCOSE, POC Routine 02/15/2013 8: 32 PM CDT BLOOD GLUCOSE, POC Routine 02/15/2013 4: 05 PM CDT BLOOD ABO, RH, INDIRECT AB SCREEN Routine 02/15/2013 1:48 PM CDT BLOOD CELL COUNT Routine 02/15/2013 1:45 PM CDT VENOUS ACCESS Routine 02/15/2013 12:09 PM CDT US GUIDED VASCULAR ACCESS Routine 2012 12:09 PM CDT CENTRAL LINE PLACEMENT > 5 YEARS Routine 02/15/2013 12:09 PM CDT BLOOD GLUCOSE, POC Routine 02/15/2013 6: 37 AM CDT SERUM MAGNESIUM Routine 02/15/2013 5:23 AM CDT PLASMA PHOSPHORUS Routine 02/15/2013 5:2 3 AM CDT PLASMA BASIC METABOLIC PANEL Routine 02/15/2013 5:23 AM CDT BLOOD TACROLIMUS (FK-506), TROUGH DRUG LEVEL Routine 02/15/2013 5:23 AM CDT BLOOD CELL COUNT (CBC) Routine 3 5:23 AM CDT BLOOD CELL MORPHOLOGIC EXAM Routine 02/15/2013 5:23 AM CDT BLOOD GLUCOSE, POC Routine 02/14/2013 9: 07 PM CDT BLOOD GLUCOSE, POC Routine 02/14/2013 6: 46 PM CDT CHEST RADIOGRAPHY, FRONTAL (AP), LATERAL Routine 02/14/2013 12:40 PM CDT BLOOD GLUCOSE, POC Routine 02/14/2013 11 :34 AM CDT BLOOD GAS, ARTERIAL Routine 02/14/2013 9 :56 AM CDT BLOOD GLUCOSE, POC Routine 02/14/2013 6: 26 AM CDT SERUM TROPONIN I Routine 02/14/2013 4:35 AM CDT SERUM MAGNESIUM Routine 02/14/2013 3:52 AM CDT PLASMA PROTHROMBIN TIME (PT) Routine 02/14/2013 3:52 AM CDT PLASMA PHOSPHORUS Routine 02/14/2013 3:5 2 AM CDT PLASMA PARTIAL THROMBOPLASTIN TIME (PTT) Routine 02/14/2013 3:52 AM CDT PLASMA BASIC METABOLIC PANEL Routine 02/14/2013 3:52 AM CDT BLOOD TACROLIMUS (FK-506), TROUGH DRUG LEVEL Routine 02/14/2013 3:52 AM CDT BLOOD CELL COUNT (CBC) Routine 3 3:52 AM CDT XR CHEST 1 VIEW Routine 02/14/2013 2:52 AM CDT ELECTROCARDIOGRAPHY (ECG) 02/14/2013 ELECTROCARDIOGRAPHY (ECG) 02/14/2013 BLOOD GLUCOSE, POC Routine 02/13/2013 8: 26 PM CDT BLOOD GLUCOSE, POC Routine 02/13/2013 5: 00 PM CDT BLOOD GLUCOSE, POC Routine 02/13/2013 11 :33 AM CDT BLOOD GLUCOSE, POC Routine 02/13/2013 7: 20 AM CDT PLASMA PARTIAL THROMBOPLASTIN TIME (PTT) Routine 02/13/2013 4:12 AM CDT SERUM MAGNESIUM Routine 02/13/2013 3:56 AM CDT PLASMA PHOSPHORUS Routine 02/13/2013 3:5 6 AM CDT PLASMA BASIC METABOLIC PANEL Routine 02/13/2013 3:56 AM CDT BLOOD TACROLIMUS (FK-506), TROUGH DRUG LEVEL Routine 02/13/2013 3:56 AM CDT BLOOD CELL COUNT (CBC) Routine 3 3:56 AM CDT BLOOD GLUCOSE, POC Routine 02/12/2013 8: 11 PM CDT BLOOD GLUCOSE, POC Routine 02/12/2013 3: 53 PM CDT BLOOD GLUCOSE, POC Routine 02/12/2013 11 :49 AM CDT BLOOD GLUCOSE, POC Routine 02/12/2013 8: 03 AM CDT SERUM MAGNESIUM Routine 02/12/2013 4:02 AM CDT PLASMA PHOSPHORUS Routine 02/12/2013 4:0 2 AM CDT PLASMA PARTIAL THROMBOPLASTIN TIME (PTT) Routine 02/12/2013 4:02 AM CDT PLASMA BASIC METABOLIC PANEL Routine 02/12/2013 4:02 AM CDT BLOOD TACROLIMUS (FK-506), TROUGH DRUG LEVEL Routine 02/12/2013 4:02 AM CDT BLOOD CELL COUNT (CBC) Routine 3 4:02 AM CDT BLOOD GLUCOSE, POC Routine 02/11/2013 7: 59 PM CDT PLASMA BASIC METABOLIC PANEL Routine 02/11/2013 5:55 PM CDT BLOOD GLUCOSE, POC Routine 02/11/2013 3: 42 PM CDT BLOOD POTASSIUM, MIXED VENOUS Routine 02/11/2013 1:01 PM CDT BLOOD GLUCOSE, POC Routine 02/11/2013 12 :01 PM CDT SERUM CYTOMEGALOVIRUS (CMV) AB, IGG Routine 02/11/2013 11:30 AM CDT PLASMA BASIC METABOLIC PANEL Routine 02/11/2013 11:30 AM CDT BLOOD GLUCOSE, POC Routine 02/11/2013 7: 44 AM CDT SERUM MAGNESIUM Routine 02/11/2013 4:34 AM CDT PLASMA RENAL PANEL Routine 02/11/2013 4: 34 AM CDT BLOOD CONSISTENT RESULT Routine 02/12/20 13 4:34 AM CDT BLOOD CELL COUNT (CBC) Routine 3 4:34 AM CDT US RETROPERITONEAL COMPLETE Routine 02/11/2013 3:02 AM CDT BLOOD CELL COUNT Routine 02/11/2013 12:2 3 AM CDT BLOOD GLUCOSE, POC Routine 02/10/2013 9: 00 PM CDT PLASMA RENAL PANEL Routine 02/10/2013 12 :30 PM CDT BLOOD CELL COUNT (CBC) Routine 3 12:30 PM CDT BLOOD CELL MORPHOLOGIC EXAM Routine 02/10/2013 12:30 PM CDT BLOOD ABO, RH, INDIRECT AB SCREEN Routine 02/10/2013 7:13 AM CDT BLOOD ELECTROLYTE, HEMOGLOBIN, HEMATOCRIT PANEL, I-STAT Routine 02/10/2013 6:55 AM CDT SPECIMEN SOURCE Routine 02/09/2013 4:40 PM CDT FLOW XM DONOR SPECIMEN SOURCE Routine 02/09/2013 4:40 PM CDT CYTO XM DONOR SPECIMEN SOURCE Routine 02/09/2013 4:40 PM CDT BLOOD FLOW XM RENAL INTERP Routine 02/09 4:40 PM CDT BLOOD FLOW XM RENAL Routine 02/09/2013 4 :40 PM CDT BLOOD CLASS II AB SCR RENAL SINGLE ANTIGEN Routine 02/09/2013 4:40 PM CDT BLOOD CLASS I AB SCR RENAL SINGLE ANTIGEN Routine 02/09/2013 4:40 PM CDT BLOOD CADAVER XM FINAL RENAL-DTT Routine 02/09/2013 4:40 PM CDT BLOOD CADAVER XM FINAL RENAL INTERP Routine 02/09/2013 4:40 PM CDT BLOOD CADAVER XM FINAL RENAL Routine 02/09/2013 4:40 PM CDT BLOOD CADAVER DTT INTERP FINAL XM Routine 02/09/2013 4:40 PM CDT SERUM URIC ACID Routine 02/09/2013 4:39 PM CDT SERUM LIPID PANEL Routine 02/09/2013 4:3 9 PM CDT SERUM IRON PROFILE Routine 02/09/2013 4: 39 PM CDT SERUM HUMAN IMMUNODEFICIENCY VIRUS (HIV) 1, 2 AB Routine 02/09/2013 4:39 PM CDT SERUM HEPATITIS B CORE AB Routine 2012 4:39 PM CDT SERUM FERRITIN Routine 02/09/2013 4:39 PM CDT PLASMA PROTHROMBIN TIME (PT) Routine 02/09/2013 4:39 PM CDT PLASMA PHOSPHORUS Routine 02/09/2013 4:3 9 PM CDT PLASMA PARTIAL THROMBOPLASTIN TIME (PTT) Routine 02/09/2013 4:39 PM CDT PLASMA COMPREHENSIVE METABOLIC PANEL Routine 02/09/2013 4:39 PM CDT BLOOD HEMOGLOBIN A1C Routine 02/09/2013 4:39 PM CDT BLOOD CELL COUNT (CBC) Routine 3 4:39 PM CDT BLOOD ABO, RH, INDIRECT AB SCREEN Routine 02/09/2013 4:39 PM CDT XR CHEST 1 VIEW Routine 02/09/2013 1:33 PM CDT SERUM HEPATITIS C AB Routine 02/09/2013 11:39 AM CDT SERUM HEPATITIS B CORE AB, IGM Routine 02/09/2013 11:39 AM CDT ELECTROCARDIOGRAPHY (ECG) 02/09/2013 documented in this encounter Results * Blood glucose, POC (02/25/2013 11:43 AM CDT) Glucose, POC, bld 118 70 - 199 mg/dl HISTORICAL RESULTS Blood specimen (specimen) 02/25/2013 11:43 AM CDT Matheus Mahmood MD LAB BLOOD ORDERABLES Final Result HISTORICAL RESULTS * Blood glucose, POC (02/25/2013 5:58 AM CDT) Glucose, POC, bld 107 70 - 199 mg/dl HISTORICAL RESULTS Gluc, com 1, bld RN Notified HISTORICAL RESULTS Blood specimen (specimen) 02/25/2013 5:58 AM CDT Matheus Mahmood MD LAB BLOOD ORDERABLES Final Result Performing Organization Address [facility] Co de Phone Number HISTORICAL RESULTS * Blood tacrolimus (FK-506), trough drug level (02/25/2013 3:47 AM CDT) Tacrolimus, trough <1.0 ng/ml H ISTORICAL RESULTS Comment: Undetectable. ??Please verify that the correct immunosuppressant test was requested. Interpretive Data This test was developed using an analyte specific reagent. ??Its performance characteristics were determined by the [facility] in a manner consistent with CLIA requirements. This test has not been cleared or approved by the U.S. Food and Drug Administration. Current interpretive data was last revised on 2011. Blood specimen (specimen) 02/25/2013 3:47 AM CDT Monica CASE LAB BLOOD ORDERABLES Final Result Performing Organization Address [facility] de Phone Number HISTORICAL RESULTS * Serum lactate dehydrogenase (LDH) (02/25/2013 3:47 AM CDT) Pathologist [facility] Lactate dehydrogenase (LDH) 160 100 - 250 Units/L HISTORICAL RESULTS Serum 02/25/2013 3:47 AM CDT Monica Arellano [place] LAB BLOOD ORDERABLES Final Result Performing Organization Address [facility] de Phone Number HISTORICAL RESULTS * (ABNORMAL) Plasma basic metabolic panel (02/25/2013 3:47 AM CDT) Pathologist [facility] Sodium 139 135 - 145 mmol/L HISTORICAL RESULTS K, pl 4.6 3.3 - 4.9 mmol/L HISTORICAL RESULTS Chloride 110 97 - 110 mmol/L HISTORICAL RESULTS CO2 22 22 - 32 mmol/L HISTORICAL RESULTS A. gap 7 0 - 16 mmol/L HISTORICAL RESULTS Glucose 78 70 - 199 mg/dl HISTORICAL RESULTS BUN 30(H) 8 - 25 mg/dl HISTORICAL RESULTS Creatinine 1.29(H) 0.60 - 1.10 mg/dl HISTORICAL RESULTS Calcium 8.4(L) 8.6 - 10.3 mg/dl HISTORICAL RESULTS Plasma 02/25/2013 3:47 AM CDT Monica CASE LAB BLOOD ORDERABLES Final Result Performing Organization Address [facility] de Phone Number HISTORICAL RESULTS * (ABNORMAL) Plasma phosphorus (02/25/2013 3:47 AM CDT) Phosphorus, pl 2.0(L) 2.3 - 4.3 mg/dl HISTORICAL RESULTS Plasma 02/25/2013 3:47 AM CDT Monica CASE LAB BLOOD ORDERABLES Final Result Performing Organization Address [facility] de Phone Number HISTORICAL RESULTS * (ABNORMAL) Plasma prothrombin time (PT) (02/25/2013 3:47 AM CDT) Prothrombin time (PT) 15.3(H) 9.0 - 12.0 seconds HISTORICAL RESULTS INR 1.44(H) 0.90 - 1.20 HISTORIC AL RESULTS Comment: Interpretive Data Inpatient therapeutic ranges* Atrial fibrillation ?2.0-3.0 INR Venous thrombo-embolism ?2.0-3.0 INR Bioprosthetic heart valve ?* Mechanical heart valve, bileaflet or tilting disk,aortic position ? 2.0-3.0 INR All other,or bileaflet or tilting disk, in mitral position ? 2.5-3.5 INR *See the pharmacy resource directory (PHRED) for an updated copy of the Tool Book at [email or web address] Current Interpretive Data was last revised 2011. Plasma 02/25/2013 3:47 AM CDT Monica Ulloao PA LAB BLOOD ORDERABLES Final Result HISTORICAL RESULTS * Serum magnesium (02/25/2013 3:47 AM CDT) Pathologist [facility] Magnesium 1.7 1.4 - 2.5 mg/dl HISTORICAL RESULTS Serum 02/25/2013 3:47 AM CDT Monica Ulloao PA LAB BLOOD ORDERABLES Final Result Performing Organization Address [facility] de Phone Number HISTORICAL RESULTS * (ABNORMAL) Blood cell count (CBC) (02/25/2013 3:47 AM CDT) WBC 5.8 3.8 - 9.8 K/cumm HISTORICAL RESULTS RBC 2.55(L) 3.90 - 5.00 M/cumm HISTORICAL RESULTS Hgb 7.7(L) 12.1 - 15.1 g/dl HISTORICAL RESULTS Hct 23.1(L) 36.1 - 44.3 % HISTORICAL RESULTS MCV 90.4 80.0 - 97.6 fl HISTORICAL RESULTS MCH 30.0 26.7 - 33.7 pg HISTORICAL RESULTS MCHC 33.2 32.7 - 35.5 g/dl HISTORICAL RESULTS Rdw 18.4(H) 11.8 - 14.6 % HISTORICAL RESULTS Platelets 141 140 - 440 K/cumm HISTORICAL RESULTS MPV 9.4 6.8 - 10.4 fl HISTORICAL RESULTS Neutrophils 88.3(H) 38.7 - 74.5 % HISTORICAL RESULTS Lymphocytes 3.4(L) 20.0 - 54.3 % HISTORICAL RESULTS Monos 4.8 4.3 - 13.5 % HISTORICAL RESULTS Eosinophils 3.4 0.0 - 6.0 % HISTORICAL RESULTS Basophils 0.1 0.0 - 3.0 % HISTORICAL RESULTS Neutrophils, abs 5.1 1.8 - 6.6 K/cumm HISTORICAL RESULTS Lymphocytes, abs 0.2(L) 1.2 - 3.3 K/cumm HISTORICAL RESULTS Monocytes, absolute 0.3 0.2 - 1.2 K/cumm HISTORICAL RESULTS Eosinophils, abs 0.2 0.0 - 0.5 K/cumm HISTORICAL RESULTS Basophils, abs 0.0 0.0 - 0.2 K/cumm HISTORICAL RESULTS Blood specimen (specimen) 02/25/2013 3:47 AM CDT Monica CASE LAB BLOOD ORDERABLES Final Result HISTORICAL RESULTS * Blood ABO, Rh, indirect ab screen (02/25/2013 3:47 AM CDT) ABO, Rho(D) B Positive HISTORI CHANO RESULTS Emerita, indirect Negative HISTORICAL RESULTS Blood specimen (specimen) 02/25/2013 3:47 AM CDT Historical Provider LAB BLOOD ORDERABLES Paty l Result Performing Organization Address City/[facility]/ZIP Co de Phone Number HISTORICAL RESULTS * Blood glucose, POC (02/24/2013 11:17 PM CDT) Glucose, POC, bld 103 70 - 199 mg/dl HISTORICAL RESULTS Gluc, com 1, bld RN Notified HISTORICAL RESULTS Blood specimen (specimen) 02/24/2013 11:17 PM CDT Result [facility] Matheus Mahmood MD LAB BLOOD ORDERABLES Final Result Performing Organization Address City/[facility]/ZIP Co de Phone Number HISTORICAL RESULTS * Blood glucose, POC (02/24/2013 5:13 PM CDT) Glucose, POC, bld 134 70 - 199 mg/dl HISTORICAL RESULTS Blood specimen (specimen) 02/24/2013 5:13 PM CDT Matheus Mahmood MD LAB BLOOD ORDERABLES Final Result HISTORICAL RESULTS * Miscellaneous culture (02/24/2013 1:50 PM CDT) Miscellaneous (Unknown) 02/24/2013 1:50 PM CDT 02/24/2013 5:07 PM CDT Narrative HISTORICAL RESULTS - 02/28/2013 11:42 AM CDT Negative for: Shigatoxin of enterohemorrhagic E.coli. Historical Provider LAB MICROBIOLOGY - GENERA L ORDERABLES Final Result Performing Organization Address [facility] de Phone Number HISTORICAL RESULTS * Blood glucose, POC (02/24/2013 11:47 AM CDT) Glucose, POC, bld 159 70 - 199 mg/dl HISTORICAL RESULTS Blood specimen (specimen) 02/24/2013 11:47 AM CDT Matheus Mahmood MD LAB BLOOD ORDERABLES Final Result Performing Organization Address [facility] Phone Number HISTORICAL RESULTS * Blood glucose, POC (02/24/2013 6:36 AM CDT) Glucose, POC, bld 110 70 - 199 mg/dl HISTORICAL RESULTS Gluc, com 1, bld RN Notified HISTORICAL RESULTS Blood specimen (specimen) 02/24/2013 6:36 AM CDT Matheus Mahmood MD LAB BLOOD ORDERABLES Final Result Performing Organization Address [facility] Phone Number HISTORICAL RESULTS * Extra slide preparation (02/24/2013 4:08 AM CDT) Pathologist [facility] Extra slide prep Test Completed HISTORICAL RESULTS No specimen 02/24/2013 4:08 AM CDT Kristin Acevedo NP LAB BLOOD ORDERA BLES Final Result Performing Organization Address [facility] de Phone Number HISTORICAL RESULTS * (ABNORMAL) Plasma basic metabolic panel (02/24/2013 4:08 AM CDT) Sodium 134(L) 135 - 145 mmol/L HISTORICAL RESULTS K, pl 4.9 3.3 - 4.9 mmol/L HISTORICAL RESULTS Chloride 106 97 - 110 mmol/L HISTORICAL RESULTS CO2 23 22 - 32 mmol/L HISTORICAL RESULTS A. gap 5 0 - 16 mmol/L HISTORICAL RESULTS Glucose 79 70 - 199 mg/dl HISTORICAL RESULTS BUN 34(H) 8 - 25 mg/dl HISTORICAL RESULTS Creatinine 1.26(H) 0.60 - 1.10 mg/dl HISTORICAL RESULTS Calcium 9.4 8.6 - 10.3 mg/dl HISTORICAL RESULTS Plasma 02/24/2013 4:08 AM CDT Kristin Kuovthaley LAB BLOOD ORDERA BLES Final Result Performing Organization Address [facility] de Phone Number HISTORICAL RESULTS * (ABNORMAL) Plasma phosphorus (02/24/2013 4:08 AM CDT) Pathologist [facility] Phosphorus, pl 2.0(L) 2.3 - 4.3 mg/dl HISTORICAL RESULTS Plasma 02/24/2013 4:08 AM CDT Kristin Acevedo LAB BLOOD ORDERA BLES Final Result Performing Organization Address [facility] de Phone Number HISTORICAL RESULTS * Serum magnesium (02/24/2013 4:08 AM CDT) Pathologist [facility] Magnesium 1.6 1.4 - 2.5 mg/dl HISTORICAL RESULTS Serum 02/24/2013 4:08 AM CDT Kristin Acevedo [employer] LAB BLOOD ORDERA BLES Final Result Performing Organization Address [facility] de Phone Number HISTORICAL RESULTS * (ABNORMAL) Blood cell count (CBC) (02/24/2013 4:08 AM CDT) WBC 5.5 3.8 - 9.8 K/cumm HISTORICAL RESULTS RBC 2.83(L) 3.90 - 5.00 M/cumm HISTORICAL RESULTS Hgb 8.5(L) 12.1 - 15.1 g/dl HISTORICAL RESULTS Hct 25.9(L) 36.1 - 44.3 % HISTORICAL RESULTS MCV 91.5 80.0 - 97.6 fl HISTORICAL RESULTS MCH 30.1 26.7 - 33.7 pg HISTORICAL RESULTS MCHC 32.9 32.7 - 35.5 g/dl HISTORICAL RESULTS Rdw 18.6(H) 11.8 - 14.6 % HISTORICAL RESULTS Platelets 149 140 - 440 K/cumm HISTORICAL RESULTS MPV 9.4 6.8 - 10.4 fl HISTORICAL RESULTS Neutrophils 88.8(H) 38.7 - 74.5 % HISTORICAL RESULTS Lymphocytes 4.4(L) 20.0 - 54.3 % HISTORICAL RESULTS Monos 4.3 4.3 - 13.5 % HISTORICAL RESULTS Eosinophils 2.4 0.0 - 6.0 % HISTORICAL RESULTS Basophils 0.1 0.0 - 3.0 % HISTORICAL RESULTS Neutrophils, abs 4.9 1.8 - 6.6 K/cumm HISTORICAL RESULTS Lymphocytes, abs 0.2(L) 1.2 - 3.3 K/cumm HISTORICAL RESULTS Monocytes, absolute 0.2 0.2 - 1.2 K/cumm HISTORICAL RESULTS Eosinophils, abs 0.1 0.0 - 0.5 K/cumm HISTORICAL RESULTS Basophils, abs 0.0 0.0 - 0.2 K/cumm HISTORICAL RESULTS Blood specimen (specimen) 02/24/2013 4:08 AM CDT Kristin Acevedo [employer] LAB BLOOD ORDERA BLES Final Result HISTORICAL RESULTS * Plasma prothrombin time (PT) (02/24/2013 4:08 AM CDT) Prothrombin time (PT) 10.8 9.0 - 12.0 seconds HISTORICAL RESULTS INR 1.03 0.90 - 1.20 HISTORIC AL RESULTS Comment: Interpretive Data Inpatient therapeutic ranges* Atrial fibrillation ?2.0-3.0 INR Venous thrombo-embolism ?2.0-3.0 INR Bioprosthetic heart valve ?* Mechanical heart valve, bileaflet or tilting disk,aortic position ? 2.0-3.0 INR All other,or bileaflet or tilting disk, in mitral position ? 2.5-3.5 INR *See the pharmacy resource directory (PHRED) for an updated copy of the Tool Book at [email or web address] Current Interpretive Data was last revised 2011. Plasma 02/24/2013 4:08 AM CDT Historical Provider MD LAB BLOOD ORDERABLES Paty l Result Performing Organization Address [facility] de Phone Number HISTORICAL RESULTS * (ABNORMAL) Serum lactate dehydrogenase (LDH) (02/24/2013 4:08 AM CDT) Lactate dehydrogenase (LDH) 457(H) 100 - 250 Units/L HISTORICAL RESULTS Serum 02/24/2013 4:08 AM CDT Historical Provider LAB BLOOD ORDERABLES Paty l Result Performing Organization Address [facility] de Phone Number HISTORICAL RESULTS * (ABNORMAL) Serum haptoglobin (02/24/2013 4:08 AM CDT) Haptoglobin <10.0(L) 27.0 - 220.0 mg/dl HISTORICAL RESULTS Serum 02/24/2013 4:08 AM CDT Historical Provider MD LAB BLOOD ORDERABLES Paty l Result Performing Organization Address [facility] de Phone Number HISTORICAL RESULTS * All Microbiology Report Section (02/24/2013 12:00 AM CDT) 02/24/2013 Narrative HISTORICAL RESULTS - 02/28/2013 1:05 PM CDT ? [facility] ?[address] [facility] [address] ?[place], [place] [address] ? Patient Name: ??GLYNN, AMANDA A ? Med Rec Number: [id number] ? Fin Number: ?[id number] ? Date: ?1935 ? Sex/Age: ? Female 77 years ? Admit Date: ?02/09/2013 ? Discharge Date: 02/25/2013 ? Doctor: ?Ela , Matheus R ? Facility: ?[facility] ? Location: ?OTHER ?* Abnormal ??A Alert ??f Footnote ??^ Corrected ??L Low ??H High ?i Interp Data ??@ Ref Lab ? Chart Type:Cumulative ?* * * * MICROBIOLOGY - MISCELLANEOUS * * * * ?PROCEDURE: Miscellaneous Culture ? SOURCE: Miscellaneous ? COLLECTED: 02/24/13 ??1350 ?BODY SITE: ? STARTED: 02/24/13 ??1708 ? FREE TEXT SOURCE: Shigatoxin ? FINAL REPORT ? REPORTED: 02/28/13 1142 ? Negative for: Shigatoxin of enterohemorrhagic E.coli. ? ORDER COMMENTS ? (1)Test Requested : Shiga Toxin ? Source: Stool ? us Historical Provider LAB MICROBIOLOGY - GENERA L ORDERABLES Final Result Performing Organization Address [facility] de Phone Number HISTORICAL RESULTS * Blood potassium, mixed venous (02/23/2013 8:59 PM CDT) [facility] Potassium, bld 4.9 3.3 - 4.9 mmol/L HISTORICAL RESULTS Mixed venous blood 02/23/2013 8:59 PM CDT Charly Goncalves MD LAB BLOOD ORDERABLES Fi nal Result Performing Organization Address [facility] Co de Phone Number HISTORICAL RESULTS * Blood glucose, POC (02/23/2013 8:33 PM CDT) [facility] Glucose, POC, bld 144 70 - 199 mg/dl HISTORICAL RESULTS Gluc, com 1, bld RN Notified HISTORICAL RESULTS Blood specimen (specimen) 02/23/2013 8:33 PM CDT Matheus Mahmood MD LAB BLOOD ORDERABLES Final Result Performing Organization Address [facility] de Phone Number HISTORICAL RESULTS * Blood glucose, POC (02/23/2013 6:04 PM CDT) Glucose, POC, bld 145 70 - 199 mg/dl HISTORICAL RESULTS Gluc, com 1, bld RN Notified HISTORICAL RESULTS Blood specimen (specimen) 02/23/2013 6:04 PM CDT Matheus Mahmood MD LAB BLOOD ORDERABLES Final Result Performing Organization Address [facility] Phone Number HISTORICAL RESULTS * Blood glucose, POC (02/23/2013 4:46 PM CDT) Glucose, POC, bld 180 70 - 199 mg/dl HISTORICAL RESULTS Blood specimen (specimen) 02/23/2013 4:46 PM CDT Matheus Mahmood MD LAB BLOOD ORDERABLES Final Result Performing Organization Address [facility] Co de Phone Number HISTORICAL RESULTS * (ABNORMAL) Blood potassium, mixed venous (02/23/2013 12:48 PM CDT) Potassium, bld 6.4(C) 3.3 - 4.9 mmol/L HISTORICAL RESULTS Comment:{Repeated and verifi ed.} Mixed venous blood 02/23/2013 12:48 PM CDT Historical Provider LAB BLOOD ORDERABLES Paty l Result Performing Organization Address [facility] Co de Phone Number HISTORICAL RESULTS * Critical result call back (02/23/2013 12:48 PM CDT) Date notified 02/23/2013 HISTO RICAL RESULTS Time notified 1312 HISTOR ICAL RESULTS Test name potassium WB HISTORI CHANO RESULTS Called to radha clemente HISTORICAL RESULTS Credentials RN HISTORIC AL RESULTS Called by geraldine HISTORICAL RESULTS No specimen 02/23/2013 12:4 8 PM CDT Historical Provider LAB BLOOD ORDERABLES Paty l Result Performing Organization Address [facility] Co de Phone Number HISTORICAL RESULTS * Blood glucose, POC (02/23/2013 12:17 PM CDT) Glucose, POC, bld 130 70 - 199 mg/dl HISTORICAL RESULTS Blood specimen (specimen) 02/23/2013 12:17 PM CDT Matheus Mahmood MD LAB BLOOD ORDERABLES Final Result Performing Organization Address [facility] Phone Number HISTORICAL RESULTS * Blood glucose, POC (02/23/2013 9:53 AM CDT) Glucose, POC, bld 117 70 - 199 mg/dl HISTORICAL RESULTS Blood specimen (specimen) 02/23/2013 9:53 AM CDT Matheus Mahmood MD LAB BLOOD ORDERABLES Final Result Performing Organization Address [facility] de Phone Number HISTORICAL RESULTS * (ABNORMAL) Blood potassium, mixed venous (02/23/2013 6:51 AM CDT) Potassium, bld 6.0(H) 3.3 - 4.9 mmol/L HISTORICAL RESULTS Mixed venous blood 02/23/2013 6:51 AM CDT Historical Provider LAB BLOOD ORDERABLES Paty l Result Performing Organization Address [facility] Co de Phone Number HISTORICAL RESULTS * Blood glucose, POC (02/23/2013 6:10 AM CDT) Glucose, POC, bld 101 70 - 199 mg/dl HISTORICAL RESULTS Blood specimen (specimen) 02/23/2013 6:10 AM CDT Matheus Mahmood MD LAB BLOOD ORDERABLES Final Result Performing Organization Address [facility] de Phone Number HISTORICAL RESULTS * (ABNORMAL) Serum lactate dehydrogenase (LDH) (02/23/2013 3:54 AM CDT) Lactate dehydrogenase (LDH) 610(H) 100 - 250 Units/L HISTORICAL RESULTS Serum 02/23/2013 3:54 AM CDT Kristin Acevedo NP LAB BLOOD ORDERA BLES Final Result Performing Organization Address [facility] de Phone Number HISTORICAL RESULTS * (ABNORMAL) Serum haptoglobin (02/23/2013 3:54 AM CDT) Haptoglobin <10.0(L) 27.0 - 220.0 mg/dl HISTORICAL RESULTS Serum 02/23/2013 3:54 AM CDT Kristin Acevedo NP LAB BLOOD ORDERA BLES Final Result Performing Organization Address [facility] de Phone Number HISTORICAL RESULTS * (ABNORMAL) Plasma basic metabolic panel (02/23/2013 3:54 AM CDT) Sodium 135 135 - 145 mmol/L HISTORICAL RESULTS K, pl 6.2(C) 3.3 - 4.9 mmol/L HISTORICAL RESULTS Chloride 110 97 - 110 mmol/L HISTORICAL RESULTS CO2 18(L) 22 - 32 mmol/L HISTORICAL RESULTS A. gap 7 0 - 16 mmol/L HISTORICAL RESULTS Glucose 88 70 - 199 mg/dl HISTORICAL RESULTS BUN 54(H) 8 - 25 mg/dl HISTORICAL RESULTS Creatinine 1.52(H) 0.60 - 1.10 mg/dl HISTORICAL RESULTS Calcium 9.4 8.6 - 10.3 mg/dl HISTORICAL RESULTS Plasma 02/23/2013 3:54 AM CDT Kristin Acevedo [employer] LAB BLOOD ORDERA BLES Final Result HISTORICAL RESULTS * Plasma phosphorus (02/23/2013 3:54 AM CDT) Phosphorus, pl 2.3 2.3 - 4.3 mg/dl HISTORICAL RESULTS Plasma 02/23/2013 3:54 AM CDT Kristin Simkyra Acevedo [employer] LAB BLOOD ORDERA BLES Final Result Performing Organization Address [facility]/ZIP Co de Phone Number HISTORICAL RESULTS * Critical result call back (02/23/2013 3:54 AM CDT) Date notified 02/23/2013 HISTO RICAL RESULTS Time notified 640 HISTOR ICAL RESULTS Test name potassium plas HISTORICAL RESULTS Called to jesse ECHOLS L RESULTS Credentials RN HISTORIC AL RESULTS Called by sonia HISTORICAL RESULTS No specimen 02/23/2013 3:54 AM CDT Kristin Simkyra Acevedo [employer] LAB BLOOD ORDERA BLES Final Result Performing Organization Address [facility] Co de Phone Number HISTORICAL RESULTS * Serum magnesium (02/23/2013 3:54 AM CDT) Magnesium 2.0 1.4 - 2.5 mg/dl HISTORICAL RESULTS Serum 02/23/2013 3:54 AM CDT Kristin Simkyra Acevedo [employer] LAB BLOOD ORDERA BLES Final Result HISTORICAL RESULTS * (ABNORMAL) Blood cell count (CBC) (02/23/2013 3:54 AM CDT) WBC 7.2 3.8 - 9.8 K/cumm HISTORICAL RESULTS RBC 3.03(L) 3.90 - 5.00 M/cumm HISTORICAL RESULTS Hgb 9.1(L) 12.1 - 15.1 g/dl HISTORICAL RESULTS Hct 27.5(L) 36.1 - 44.3 % HISTORICAL RESULTS MCV 90.9 80.0 - 97.6 fl HISTORICAL RESULTS MCH 30.0 26.7 - 33.7 pg HISTORICAL RESULTS MCHC 33.0 32.7 - 35.5 g/dl HISTORICAL RESULTS Rdw 19.3(H) 11.8 - 14.6 % HISTORICAL RESULTS Platelets 153 140 - 440 K/cumm HISTORICAL RESULTS MPV 9.5 6.8 - 10.4 fl HISTORICAL RESULTS Neutrophils 92.8(H) 38.7 - 74.5 % HISTORICAL RESULTS Lymphocytes 2.8(L) 20.0 - 54.3 % HISTORICAL RESULTS Monos 3.8(L) 4.3 - 13.5 % HISTORICAL RESULTS Eosinophils 0.6 0.0 - 6.0 % HISTORICAL RESULTS Basophils 0.0 0.0 - 3.0 % HISTORICAL RESULTS Neutrophils, abs 6.7(H) 1.8 - 6.6 K/cumm HISTORICAL RESULTS Lymphocytes, abs 0.2(L) 1.2 - 3.3 K/cumm HISTORICAL RESULTS Monocytes, absolute 0.3 0.2 - 1.2 K/cumm HISTORICAL RESULTS Eosinophils, abs 0.0 0.0 - 0.5 K/cumm HISTORICAL RESULTS Basophils, abs 0.0 0.0 - 0.2 K/cumm HISTORICAL RESULTS Blood specimen (specimen) 02/23/2013 3:54 AM CDT Kristin Acevedo SUPERVISOR [employer] LAB BLOOD ORDERA BLES Final Result HISTORICAL RESULTS * Blood tacrolimus (FK-506), trough drug level (02/23/2013 3:54 AM CDT) Tacrolimus, trough 1.4 ng/ml H ISTORICAL RESULTS Comment: Interpretive Data This test was developed using an analyte specific reagent. ??Its performance characteristics were determined by the [facility] in a manner consistent with CLIA requirements. This test has not been cleared or approved by the U.S. Food and Drug Administration. Current interpretive data was last revised on 2011. Blood specimen (specimen) 02/23/2013 3:54 AM CDT Kristin Acevedo NP LAB BLOOD ORDERA BLES Final Result Performing Organization Address [facility] Phone Number HISTORICAL RESULTS * Blood glucose, POC (02/22/2013 8:15 PM CDT) Glucose, POC, bld 118 70 - 199 mg/dl HISTORICAL RESULTS Blood specimen (specimen) 02/22/2013 8:15 PM CDT Matheus Mahmood MD LAB BLOOD ORDERABLES Final Result Performing Organization Address [facility] Phone Number HISTORICAL RESULTS * Blood glucose, POC (02/22/2013 5:22 PM CDT) Glucose, POC, bld 140 70 - 199 mg/dl HISTORICAL RESULTS Blood specimen (specimen) 02/22/2013 5:22 PM CDT Matheus Mahmood MD LAB BLOOD ORDERABLES Final Result Performing Organization Address [facility] Phone Number HISTORICAL RESULTS * (ABNORMAL) Blood potassium, mixed venous (02/22/2013 1:02 PM CDT) Potassium, bld 5.8(H) 3.3 - 4.9 mmol/L HISTORICAL RESULTS Mixed venous blood 02/22/2013 1:02 PM CDT Charly Goncalves MD LAB BLOOD ORDERABLES Fi nal Result Performing Organization Address [facility] de Phone Number HISTORICAL RESULTS * Blood glucose, POC (02/22/2013 11:29 AM CDT) Glucose, POC, bld 141 70 - 199 mg/dl HISTORICAL RESULTS Blood specimen (specimen) 02/22/2013 11:29 AM CDT Matheus Mahmood MD LAB BLOOD ORDERABLES Final Result Performing Organization Address [facility] Co de Phone Number HISTORICAL RESULTS * Blood glucose, POC (02/22/2013 6:52 AM CDT) [facility] Glucose, POC, bld 118 70 - 199 mg/dl HISTORICAL RESULTS Blood specimen (specimen) 02/22/2013 6:52 AM CDT Matheus Mahmood MD LAB BLOOD ORDERABLES Final Result Performing Organization Address [facility] de Phone Number HISTORICAL RESULTS * Serum Mycoplasma ab, IgG, IgM (02/22/2013 3:46 AM CDT) [facility] Mycoplasma ab, IgG 1.51 <=0.90 index HISTORICAL RESULTS Mycoplasma ab, IgM 0.25 <=0.90 index HISTORICAL RESULTS Comment: Results suggest past exposure. Test Performed by: [place] [address] [employer] Operator: Nathan Gonzalez III, M.D. Serum 02/22/2013 3:46 AM CDT Kristin Acevedo [employer]PER[employer] LAB BLOOD ORDERA BLES Final Result Performing Organization Address [facility] de Phone Number HISTORICAL RESULTS * Extra slide preparation (02/22/2013 3:46 AM CDT) [facility] Extra slide prep Test Completed HISTORICAL RESULTS No specimen 02/22/2013 3:46 AM CDT Monica Arellano PA LAB BLOOD ORDERABLES Final Result Performing Organization Address [facility] Co de Phone Number HISTORICAL RESULTS * (ABNORMAL) Plasma basic metabolic panel (02/22/2013 3:46 AM CDT) [facility] Sodium 138 135 - 145 mmol/L HISTORICAL RESULTS K, pl 5.9(H) 3.3 - 4.9 mmol/L HISTORICAL RESULTS Chloride 107 97 - 110 mmol/L HISTORICAL RESULTS CO2 21(L) 22 - 32 mmol/L HISTORICAL RESULTS A. gap 10 0 - 16 mmol/L HISTORICAL RESULTS Glucose 79 70 - 199 mg/dl HISTORICAL RESULTS BUN 62(H) 8 - 25 mg/dl HISTORICAL RESULTS Creatinine 1.72(H) 0.60 - 1.10 mg/dl HISTORICAL RESULTS Calcium 10.0 8.6 - 10.3 mg/dl HISTORICAL RESULTS Plasma 02/22/2013 3:46 AM CDT [facility] [place] LAB BLOOD ORDERABLES Final Result Performing Organization Address [facility] de Phone Number HISTORICAL RESULTS * (ABNORMAL) Plasma phosphorus (02/22/2013 3:46 AM CDT) Pathologist [facility] Phosphorus, pl 1.8(L) 2.3 - 4.3 mg/dl HISTORICAL RESULTS Plasma 02/22/2013 3:46 AM CDT [facility] [place] LAB BLOOD ORDERABLES Final Result Performing Organization Address [facility] de Phone Number HISTORICAL RESULTS * Serum magnesium (02/22/2013 3:46 AM CDT) Pathologist [facility] Magnesium 2.0 1.4 - 2.5 mg/dl HISTORICAL RESULTS Serum 02/22/2013 3:46 AM CDT [facility] Reggie Arellano [place] LAB BLOOD ORDERABLES Final Result Performing Organization Address [facility] de Phone Number HISTORICAL RESULTS * (ABNORMAL) Blood cell count (CBC) (02/22/2013 3:46 AM CDT) WBC 10.5(H) 3.8 - 9.8 K/cumm HISTORICAL RESULTS RBC 3.49(L) 3.90 - 5.00 M/cumm HISTORICAL RESULTS Hgb 10.4(L) 12.1 - 15.1 g/dl HISTORICAL RESULTS Hct 31.9(L) 36.1 - 44.3 % HISTORICAL RESULTS MCV 91.6 80.0 - 97.6 fl HISTORICAL RESULTS MCH 29.7 26.7 - 33.7 pg HISTORICAL RESULTS MCHC 32.5(L) 32.7 - 35.5 g/dl HISTORICAL RESULTS Rdw 18.6(H) 11.8 - 14.6 % HISTORICAL RESULTS Platelets 165 140 - 440 K/cumm HISTORICAL RESULTS MPV 9.6 6.8 - 10.4 fl HISTORICAL RESULTS Neutrophils 92.4(H) 38.7 - 74.5 % HISTORICAL RESULTS Lymphocytes 1.7(L) 20.0 - 54.3 % HISTORICAL RESULTS Monos 4.0(L) 4.3 - 13.5 % HISTORICAL RESULTS Eosinophils 1.9 0.0 - 6.0 % HISTORICAL RESULTS Basophils 0.0 0.0 - 3.0 % HISTORICAL RESULTS Neutrophils, abs 9.7(H) 1.8 - 6.6 K/cumm HISTORICAL RESULTS Lymphocytes, abs 0.2(L) 1.2 - 3.3 K/cumm HISTORICAL RESULTS Monocytes, absolute 0.4 0.2 - 1.2 K/cumm HISTORICAL RESULTS Eosinophils, abs 0.2 0.0 - 0.5 K/cumm HISTORICAL RESULTS Basophils, abs 0.0 0.0 - 0.2 K/cumm HISTORICAL RESULTS Blood specimen (specimen) 02/22/2013 3:46 AM CDT [facility] LAB BLOOD ORDERABLES Final Result HISTORICAL RESULTS * Blood tacrolimus (FK-506), trough drug level (02/22/2013 3:46 AM CDT) Tacrolimus, trough 2.1 ng/ml H ISTORICAL RESULTS Comment: Interpretive Data This test was developed using an analyte specific reagent. ??Its performance characteristics were determined by the [facility] in a manner consistent with CLIA requirements. This test has not been cleared or approved by the U.S. Food and Drug Administration. Current interpretive data was last revised on 2011. Blood specimen (specimen) 02/22/2013 3:46 AM CDT [facility] [place] LAB BLOOD ORDERABLES Final Result Performing Organization Address City/State/[facility] de Phone Number HISTORICAL RESULTS * (ABNORMAL) Serum lactate dehydrogenase (LDH) (02/22/2013 3:46 AM CDT) Lactate dehydrogenase (LDH) 598(H) 100 - 250 Units/L HISTORICAL RESULTS Serum 02/22/2013 3:46 AM CDT Result [facility] Historical Provider LAB BLOOD ORDERABLES Paty l Result Performing Organization Address [facility] de Phone Number HISTORICAL RESULTS * (ABNORMAL) Serum haptoglobin (02/22/2013 3:46 AM CDT) Haptoglobin <10.0(L) 27.0 - 220.0 mg/dl HISTORICAL RESULTS Serum 02/22/2013 3:46 AM CDT Result [facility] Historical Provider LAB BLOOD ORDERABLES Paty l Result Performing Organization Address [facility] Phone Number HISTORICAL RESULTS * ELECTROCARDIOGRAPHY (ECG) (02/22/2013) Narrative 02/22/2013 Ordered by an unspecified provider. Result [facility] Historical Provider ECG ORDERABLES Final Res ult * Blood glucose, POC (02/21/2013 9:22 PM CDT) Glucose, POC, bld 107 70 - 199 mg/dl HISTORICAL RESULTS Blood specimen (specimen) 02/21/2013 9:22 PM CDT Result [facility] Matheus Mahmood MD LAB BLOOD ORDERABLES Final Result Performing Organization Address [facility] de Phone Number HISTORICAL RESULTS * Blood glucose, POC (02/21/2013 5:23 PM CDT) Glucose, POC, bld 124 70 - 199 mg/dl HISTORICAL RESULTS Blood specimen (specimen) 02/21/2013 5:23 PM CDT Result [facility] Matheus Mahmood MD LAB BLOOD ORDERABLES Final Result Performing Organization Address [facility] de Phone Number HISTORICAL RESULTS * Blood glucose, POC (02/21/2013 11:51 AM CDT) Glucose, POC, bld 148 70 - 199 mg/dl HISTORICAL RESULTS Blood specimen (specimen) 02/21/2013 11:51 AM CDT Result [facility] Matheus Mahmood MD LAB BLOOD ORDERABLES Final Result Performing Organization Address [facility] de Phone Number HISTORICAL RESULTS * Blood glucose, POC (02/21/2013 8:06 AM CDT) Glucose, POC, bld 191 70 - 199 mg/dl HISTORICAL RESULTS Blood specimen (specimen) 02/21/2013 8:06 AM CDT Result [facility] Matheus Mahmood MD LAB BLOOD ORDERABLES Final Result Performing Organization Address [facility] de Phone Number HISTORICAL RESULTS * (ABNORMAL) Serum lactate dehydrogenase (LDH) (02/21/2013 4:43 AM CDT) Lactate dehydrogenase (LDH) 659(H) 100 - 250 Units/L HISTORICAL RESULTS Serum 02/21/2013 4:43 AM CDT Result [facility] Charly Goncalves MD LAB BLOOD ORDERABLES Fi nal Result Performing Organization Address [facility] de Phone Number HISTORICAL RESULTS * Plasma partial thromboplastin time (PTT) (02/21/2013 4:43 AM CDT) APTT 25.2 25.0 - 37.0 seconds HISTORICAL RESULTS Comment: Interpretive Data Therapeutic heparin range:60.0 - 94.0 sec based on correlation with therapeutic heparin activity range of 0.3 -0.7 Units/mL. Current interpretive data was last revised on 2011. Plasma 02/21/2013 4:43 AM CDT Charly Goncalves MD LAB BLOOD ORDERABLES Fi nal Result Performing Organization Address [facility] de Phone Number HISTORICAL RESULTS * (ABNORMAL) Plasma basic metabolic panel (02/21/2013 4:43 AM CDT) Sodium 137 135 - 145 mmol/L HISTORICAL RESULTS K, pl 5.2(H) 3.3 - 4.9 mmol/L HISTORICAL RESULTS Chloride 105 97 - 110 mmol/L HISTORICAL RESULTS CO2 23 22 - 32 mmol/L HISTORICAL RESULTS A. gap 9 0 - 16 mmol/L HISTORICAL RESULTS Glucose 102 70 - 199 mg/dl HISTORICAL RESULTS BUN 66(H) 8 - 25 mg/dl HISTORICAL RESULTS Creatinine 1.73(H) 0.60 - 1.10 mg/dl HISTORICAL RESULTS Calcium 9.3 8.6 - 10.3 mg/dl HISTORICAL RESULTS Plasma 02/21/2013 4:43 AM CDT Charly Goncalves MD LAB BLOOD ORDERABLES Fi nal Result Performing Organization Address [facility] de Phone Number HISTORICAL RESULTS * (ABNORMAL) Plasma phosphorus (02/21/2013 4:43 AM CDT) Phosphorus, pl 2.2(L) 2.3 - 4.3 mg/dl HISTORICAL RESULTS Plasma 02/21/2013 4:43 AM CDT Charly Goncalves MD LAB BLOOD ORDERABLES Fi nal Result Performing Organization Address [facility] de Phone Number HISTORICAL RESULTS * Plasma prothrombin time (PT) (02/21/2013 4:43 AM CDT) Prothrombin time (PT) 10.7 9.0 - 12.0 seconds HISTORICAL RESULTS INR 1.02 0.90 - 1.20 HISTORIC AL RESULTS Comment: Interpretive Data Inpatient therapeutic ranges* Atrial fibrillation ?2.0-3.0 INR Venous thrombo-embolism ?2.0-3.0 INR Bioprosthetic heart valve ?* Mechanical heart valve, bileaflet or tilting disk,aortic position ? 2.0-3.0 INR All other,or bileaflet or tilting disk, in mitral position ? 2.5-3.5 INR *See the pharmacy resource directory (PHRED) for an updated copy of the Tool Book at [email or web address] Current Interpretive Data was last revised 2011. Plasma 02/21/2013 4:43 AM CDT Charly Goncalves MD LAB BLOOD ORDERABLES nal Result Performing Organization Address [facility] de Phone Number HISTORICAL RESULTS * Serum vancomycin drug level (02/21/2013 4:43 AM CDT) Vancomycin 17.7 mcg/ml HISTORICA L RESULTS Serum 02/21/2013 4:43 AM CDT Charly Goncalves MD LAB BLOOD ORDERABLES nal Result Performing Organization Address [facility] de Phone Number HISTORICAL RESULTS * Serum magnesium (02/21/2013 4:43 AM CDT) Magnesium 1.8 1.4 - 2.5 mg/dl HISTORICAL RESULTS Serum 02/21/2013 4:43 AM CDT Charly Goncalves MD LAB BLOOD ORDERABLES nal Result Performing Organization Address [facility] de Phone Number HISTORICAL RESULTS * (ABNORMAL) Blood cell count (CBC) (02/21/2013 4:43 AM CDT) WBC 11.8(H) 3.8 - 9.8 K/cumm HISTORICAL RESULTS RBC 3.29(L) 3.90 - 5.00 M/cumm HISTORICAL RESULTS Hgb 10.0(L) 12.1 - 15.1 g/dl HISTORICAL RESULTS Hct 29.5(L) 36.1 - 44.3 % HISTORICAL RESULTS MCV 89.5 80.0 - 97.6 fl HISTORICAL RESULTS MCH 30.4 26.7 - 33.7 pg HISTORICAL RESULTS MCHC 34.0 32.7 - 35.5 g/dl HISTORICAL RESULTS Rdw 18.7(H) 11.8 - 14.6 % HISTORICAL RESULTS Platelets 145 140 - 440 K/cumm HISTORICAL RESULTS MPV 9.0 6.8 - 10.4 fl HISTORICAL RESULTS Neutrophils 93.8(H) 38.7 - 74.5 % HISTORICAL RESULTS Lymphocytes 1.7(L) 20.0 - 54.3 % HISTORICAL RESULTS Monos 4.0(L) 4.3 - 13.5 % HISTORICAL RESULTS Eosinophils 0.5 0.0 - 6.0 % HISTORICAL RESULTS Basophils 0.0 0.0 - 3.0 % HISTORICAL RESULTS Neutrophils, abs 11.1(H) 1.8 - 6.6 K/cumm HISTORICAL RESULTS Lymphocytes, abs 0.2(L) 1.2 - 3.3 K/cumm HISTORICAL RESULTS Monocytes, absolute 0.5 0.2 - 1.2 K/cumm HISTORICAL RESULTS Eosinophils, abs 0.1 0.0 - 0.5 K/cumm HISTORICAL RESULTS Basophils, abs 0.0 0.0 - 0.2 K/cumm HISTORICAL RESULTS Blood specimen (specimen) 02/21/2013 4:43 AM CDT Charly Goncalves MD LAB BLOOD ORDERABLES Fi nal Result HISTORICAL RESULTS * Blood tacrolimus (FK-506), trough drug level (02/21/2013 4:43 AM CDT) Tacrolimus, trough 4.9 ng/ml H ISTORICAL RESULTS Comment: Interpretive Data This test was developed using an analyte specific reagent. ??Its performance characteristics were determined by the [facility] in a manner consistent with CLIA requirements. This test has not been cleared or approved by the U.S. Food and Drug Administration. Current interpretive data was last revised on 2011. Blood specimen (specimen) 02/21/2013 4:43 AM CDT us Charly Goncalves MD LAB BLOOD ORDERABLES Fi nal Result HISTORICAL RESULTS * (ABNORMAL) Blood BZDEJS04 Activity (02/21/2013 4:43 AM CDT) ADAMTS-13, activity 51(L) >=67 % HISTORICAL RESULTS Comment: Interpretive Data OMBANW99 activity is measured using FRETS-VWF73 substrate. ??Severe deficiency of GLHTVB01 (activity <5-10%) may be acquired or congenital, and is a relatively specific finding in patients with a clinical diagnosis of thrombotic thrombocytopenic purpura (TTP). Severe AMTXBM27 deficiency is observed in approximately two-thirds of patients with a clinical diagnosis of acute idiopathic TTP. ??In this patient population, persistence of severe NCOGNF47 deficiency during clinical remission is associated with an increased risk for recurrent clinical episodes of TTP. ??Severe congenital ADAMT13 deficiency (Rere-Elinor syndrome) is an autosomal recessive condition which may present in children or adults as episodes of TTP. ??Severe FURMPU15 deficiency persists during remission in these patients and auto-KTLXUE49 antibody is generally not observed. ??Mild to moderate deficiency of TDAMTX89 activity has been observed in multiple medical conditions. ??Hyperbilirubinemia interferes with FRET-based assay of AFSANL14 activity and plasma free hemoglobin >2 gm/L is a potent inhibitor of HMORBU76 function. Current interpretive data was last revised on 2012. Testing performed by: ??[facility] [place], [place] ??[id number]. Blood specimen (specimen) 02/21/2013 4:43 AM CDT us Darlin Yoon LAB BLOOD ORDERABLES Final R esult HISTORICAL RESULTS * Serum complement C4, quantitative (02/21/2013 4:43 AM CDT) Complement C4 23.3 12.0 - 54.0 mg/dl HISTORICAL RESULTS Serum 02/21/2013 4:43 AM CDT Darlin FlowersMonico Sincerere LAB BLOOD ORDERABLES [facility] Performing Organization Address [facility] Phone Number HISTORICAL RESULTS * Serum complement C3, quantitative (02/21/2013 4:43 AM CDT) Complement C3 110.0 83.0 - 185.0 mg/dl HISTORICAL RESULTS Serum 02/21/2013 4:43 AM CDT Darlin L. Ivanmelchorre LAB BLOOD ORDERABLES Final R [facility] Performing Organization Address [facility] Phone Number HISTORICAL RESULTS * (ABNORMAL) Serum complement (02/21/2013 4:43 AM CDT) Complement hemolytic 252(H) 63 - 145 HISTORICAL RESULTS Serum 02/21/2013 4:43 AM CDT Result [facility] Darlin Padilla Ivanmelchorantwan LAB BLOOD ORDERABLES Final [facility] Performing Organization Address [facility] Phone Number HISTORICAL RESULTS * (ABNORMAL) Serum haptoglobin (02/21/2013 4:43 AM CDT) Haptoglobin <10.0(L) 27.0 - 220.0 mg/dl HISTORICAL RESULTS Serum 02/21/2013 4:43 AM CDT Darlin L. Ivanmelchorre LAB BLOOD ORDERABLES Final R esult Performing Organization Address [facility] de Phone Number HISTORICAL RESULTS * (ABNORMAL) Blood potassium, mixed venous (02/20/2013 9:14 PM CDT) Potassium, bld 5.3(H) 3.3 - 4.9 mmol/L HISTORICAL RESULTS Mixed venous blood 02/20/2013 9:14 PM CDT Historical Provider LAB BLOOD ORDERABLES Paty l Result Performing Organization Address [facility] Co de Phone Number HISTORICAL RESULTS * Blood glucose, POC (02/20/2013 8:22 PM CDT) Glucose, POC, bld 136 70 - 199 mg/dl HISTORICAL RESULTS Blood specimen (specimen) 02/20/2013 8:22 PM CDT Matheus Mahmood MD LAB BLOOD ORDERABLES Final Result Performing Organization Address [facility] de Phone Number HISTORICAL RESULTS * Blood glucose, POC (02/20/2013 4:19 PM CDT) Pathologist [facility] Glucose, POC, bld 139 70 - 199 mg/dl HISTORICAL RESULTS Blood specimen (specimen) 02/20/2013 4:19 PM CDT Result [facility] Matheus Mahmood MD LAB BLOOD ORDERABLES Final Result Performing Organization Address [facility] de Phone Number HISTORICAL RESULTS * Extra slide preparation (02/20/2013 2:31 PM CDT) Pathologist [facility] Extra slide prep Test Completed HISTORICAL RESULTS No specimen 02/20/2013 2:31 PM CDT Result [facility] Darlin Yoon LAB BLOOD ORDERABLES Final R esult Performing Organization Address [facility] de Phone Number HISTORICAL RESULTS * (ABNORMAL) Blood cell morphologic exam (02/20/2013 2:31 PM CDT) WBC counted 100 # of cells HISTORI CHANO RESULTS Neutrophils 94(H) 44 - 80 % HISTORIC AL RESULTS Lymphocytes 1(L) 13 - 44 % HISTORIC AL RESULTS Monos 3 2 - 8 % HISTORICAL RESULTS Eosinophils 1 0 - 6 % HISTORIC AL RESULTS Neutrophilic bands 1 0 - 6 % HISTORICAL RESULTS Platelet estimate Adequate Adequate HI STORICAL RESULTS Platelet morphology Few Enlarged(A) HISTORICAL RESULTS Anisocytosis Trace None Seen HISTORI CHANO RESULTS Macrocytosis 3-7/HPF(A) None Seen HISTOR ICAL RESULTS Microcytosis 3-7/HPF(A) None Seen HISTOR ICAL RESULTS Ovalocytes 3-7/HPF(A) None Seen HISTORIC AL RESULTS Polychromasia 3-7/HPF(A) None Seen HISTO RICAL RESULTS Poikilocytosis Trace(A) None Seen HISTO RICAL RESULTS Schistocytes Rare HISTORI CHANO RESULTS Teardrop cells 3-7/HPF(A) None Seen HIST ORICAL RESULTS RBC morphology Crenated RBC(A) Normal HISTORICAL RESULTS Blood specimen (specimen) 02/20/2013 2:31 PM CDT Darlin Yoon LAB BLOOD ORDERABLES Final R esult Performing Organization Address [facility] de Phone Number HISTORICAL RESULTS * Blood direct antiglobulin test (02/20/2013 2:31 PM CDT) Pathologist [facility] Emerita, direct, polyspecific Negative HISTORICAL RESULTS Blood specimen (specimen) 02/20/2013 2:31 PM CDT Charly Goncalves MD LAB BLOOD ORDERABLES Fi nal Result Performing Organization Address [facility] de Phone Number HISTORICAL RESULTS * (ABNORMAL) Serum vancomycin, trough drug level (02/20/2013 2:31 PM CDT) Pathologist [facility] Vancomycin, trough 21.7(C) 10.0 - 20.9 mcg/ml HISTORICAL RESULTS Comment: Interpretive Data Therapeutic Range: ?? Uncomplicated skin and soft tissue infections: 10-20 mcg/mL ?? All other infections: ??15-20 mcg/mL Current interpretive data was last revised on 12. Serum 02/20/2013 2:31 PM CDT Charly Goncalves MD LAB BLOOD ORDERABLES Fi nal Result Performing Organization Address [facility] de Phone Number HISTORICAL RESULTS * (ABNORMAL) Plasma potassium (02/20/2013 2:31 PM CDT) Pathologist [facility] K, pl 5.3(H) 3.3 - 4.9 mmol/L HISTORICAL RESULTS Plasma 02/20/2013 2:31 PM CDT Charly Goncalves MD LAB BLOOD ORDERABLES Fi nal Result Performing Organization Address [facility] Co de Phone Number HISTORICAL RESULTS * Critical result call back (02/20/2013 2:31 PM CDT) Date notified 02/20/2013 HISTO RICAL RESULTS Time notified 15:47 HISTOR ICAL RESULTS Test name vancomycin Tr HISTOR ICAL RESULTS Called to lashawn estrada HISTOR ICAL RESULTS Credentials RN HISTORIC AL RESULTS Called by leroy HISTORICAL RESULTS No specimen 02/20/2013 2:31 PM CDT Result [facility] Charly Goncalves MD LAB BLOOD ORDERABLES Fi nal Result Performing Organization Address [facility] de Phone Number HISTORICAL RESULTS * Blood glucose, POC (02/20/2013 11:53 AM CDT) Glucose, POC, bld 166 70 - 199 mg/dl HISTORICAL RESULTS Blood specimen (specimen) 02/20/2013 11:53 AM CDT Result [facility] Matheus Mahmood MD LAB BLOOD ORDERABLES Final Result Performing Organization Address [facility] de Phone Number HISTORICAL RESULTS * Blood glucose, POC (02/20/2013 8:33 AM CDT) Glucose, POC, bld 116 70 - 199 mg/dl HISTORICAL RESULTS Blood specimen (specimen) 02/20/2013 8:33 AM CDT Matheus Mahmood MD LAB BLOOD ORDERABLES Final Result Performing Organization Address [facility] de Phone Number HISTORICAL RESULTS * (ABNORMAL) Blood cell count (CBC) (02/20/2013 4:16 AM CDT) MCHC 33.0 32.7 - 35.5 g/dl HISTORICAL RESULTS WBC 10.4(H) 3.8 - 9.8 K/cumm HISTORICAL RESULTS Rdw 18.6(H) 11.8 - 14.6 % HISTORICAL RESULTS RBC 3.31(L) 3.90 - 5.00 M/cumm HISTORICAL RESULTS Platelets 132(L) 140 - 440 K/cumm HISTORICAL RESULTS Hgb 9.8(L) 12.1 - 15.1 g/dl HISTORICAL RESULTS MPV 9.5 6.8 - 10.4 fl HISTORICAL RESULTS Hct 29.7(L) 36.1 - 44.3 % HISTORICAL RESULTS Neutrophils 92.2(H) 38.7 - 74.5 % HISTORICAL RESULTS MCV 89.9 80.0 - 97.6 fl HISTORICAL RESULTS Lymphocytes 1.8(L) 20.0 - 54.3 % HISTORICAL RESULTS MCH 29.7 26.7 - 33.7 pg HISTORICAL RESULTS Monos 4.6 4.3 - 13.5 % HISTORICAL RESULTS Eosinophils 1.4 0.0 - 6.0 % HISTORICAL RESULTS Basophils 0.0 0.0 - 3.0 % HISTORICAL RESULTS Neutrophils, abs 9.5(H) 1.8 - 6.6 K/cumm HISTORICAL RESULTS Lymphocytes, abs 0.2(L) 1.2 - 3.3 K/cumm HISTORICAL RESULTS Monocytes, absolute 0.5 0.2 - 1.2 K/cumm HISTORICAL RESULTS Eosinophils, abs 0.1 0.0 - 0.5 K/cumm HISTORICAL RESULTS Basophils, abs 0.0 0.0 - 0.2 K/cumm HISTORICAL RESULTS Blood specimen (specimen) 02/20/2013 4:16 AM CDT Charly Goncalves MD LAB BLOOD ORDERABLES Fi nal Result HISTORICAL RESULTS * Blood tacrolimus ([id number]), trough drug level (02/20/2013 4:16 AM CDT) Tacrolimus, trough 9.7 ng/ml H ISTORICAL RESULTS Comment: Interpretive Data This test was developed using an analyte specific reagent. ??Its performance characteristics were determined by the [facility] in a manner consistent with CLIA requirements. This test has not been cleared or approved by the U.S. Food and Drug Administration. Current interpretive data was last revised on 2011. Blood specimen (specimen) 02/20/2013 4:16 AM CDT Charly Goncalves MD LAB BLOOD ORDERABLES [facility] Result Performing Organization Address [facility] de Phone Number HISTORICAL RESULTS * (ABNORMAL) Serum lactate dehydrogenase (LDH) (02/20/2013 4:13 AM CDT) Lactate dehydrogenase (LDH) 624(H) 100 - 250 Units/L HISTORICAL RESULTS Serum 02/20/2013 4:13 AM CDT Charly Goncalves MD LAB BLOOD ORDERABLES nal Result Performing Organization Address [facility] Phone Number HISTORICAL RESULTS * (ABNORMAL) Plasma partial thromboplastin time (PTT) (02/20/2013 4:13 AM CDT) APTT 23.5(L) 25.0 - 37.0 seconds HISTORICAL RESULTS Comment: Interpretive Data Therapeutic heparin range:60.0 - 94.0 sec based on correlation with therapeutic heparin activity range of 0.3 -0.7 Units/mL. Current interpretive data was last revised on 2011. Plasma 02/20/2013 4:13 AM CDT Charly Goncalves MD LAB BLOOD ORDERABLES [facility] Result Performing Organization Address [facility] de Phone Number HISTORICAL RESULTS * (ABNORMAL) Plasma basic metabolic panel (02/20/2013 4:13 AM CDT) Sodium 134(L) 135 - 145 mmol/L HISTORICAL RESULTS K, pl 4.9 3.3 - 4.9 mmol/L HISTORICAL RESULTS Chloride 100 97 - 110 mmol/L HISTORICAL RESULTS CO2 25 22 - 32 mmol/L HISTORICAL RESULTS A. gap 9 0 - 16 mmol/L HISTORICAL RESULTS Glucose 100 70 - 199 mg/dl HISTORICAL RESULTS BUN 70(H) 8 - 25 mg/dl HISTORICAL RESULTS Creatinine 1.94(H) 0.60 - 1.10 mg/dl HISTORICAL RESULTS Calcium 9.7 8.6 - 10.3 mg/dl HISTORICAL RESULTS Plasma 02/20/2013 4:13 AM CDT Charly Goncalves MD LAB BLOOD ORDERABLES Fi nal Result Performing Organization Address [facility] de Phone Number HISTORICAL RESULTS * Serum troponin I (02/20/2013 4:13 AM CDT) Troponin I <0.07 0.00 - 0.24 ng/ml HISTORICAL RESULTS Comment: Interpretive Data Normal Range: <0.07 ng/mL: Negative 0.07 - 0.24 ng/mL: Elevated, may be consistent with Myocardial Injury/Ischemia but is nondiagnostic and of equivocal significance. Consider obtaining additional Troponin values. (JAM Dave Cardiol 2000; 36:959. Circulation 2000; 102: 1193., 2002; 106: 1893., 2003: 108: 8133) Greater than or equal to 0.25 ng/mL: Positive Troponin, suggest establishing rising or falling pattern and evidence of Cardiac Ischemia for consideration of Myocardial Infarction. Current interpretive data was last revised on 2007. Serum 02/20/2013 4:13 AM CDT Charly Goncalves MD LAB BLOOD ORDERABLES Fi nal Result Performing Organization Address [facility] de Phone Number HISTORICAL RESULTS * Plasma phosphorus (02/20/2013 4:13 AM CDT) Pathologist [facility] Phosphorus, pl 2.6 2.3 - 4.3 mg/dl HISTORICAL RESULTS Plasma 02/20/2013 4:13 AM CDT Charly Goncalves MD LAB BLOOD ORDERABLES Fi nal Result Performing Organization Address City/[facility] Co de Phone Number HISTORICAL RESULTS * Plasma prothrombin time (PT) (02/20/2013 4:13 AM CDT) Prothrombin time (PT) 10.3 9.0 - 12.0 seconds HISTORICAL RESULTS INR 0.98 0.90 - 1.20 HISTORIC AL RESULTS Comment: Interpretive Data Inpatient therapeutic ranges* Atrial fibrillation ?2.0-3.0 INR Venous thrombo-embolism ?2.0-3.0 INR Bioprosthetic heart valve ?* Mechanical heart valve, bileaflet or tilting disk,aortic position ? 2.0-3.0 INR All other,or bileaflet or tilting disk, in mitral position ? 2.5-3.5 INR *See the pharmacy resource directory (PHRED) for an updated copy of the Tool Book at [email or web address] Current Interpretive Data was last revised 2011. Plasma 02/20/2013 4:13 AM CDT Charly Goncalves MD LAB BLOOD ORDERABLES Fi nal Result Performing Organization Address [facility] de Phone Number HISTORICAL RESULTS * Serum magnesium (02/20/2013 4:13 AM CDT) Pathologist [facility] Magnesium 1.7 1.4 - 2.5 mg/dl HISTORICAL RESULTS Serum 02/20/2013 4:13 AM CDT Charly Goncalves MD LAB BLOOD ORDERABLES Fi nal Result Performing Organization Address [facility] Co de Phone Number HISTORICAL RESULTS * Serum folic acid (02/20/2013 4:13 AM CDT) Folic acid 12.6 5.4 - 999.9 mcg/L HISTORICAL RESULTS Serum 02/20/2013 4:13 AM CDT Darlin L. Deguire LAB BLOOD ORDERABLES Final R esult HISTORICAL RESULTS * (ABNORMAL) Serum cyanocobalamin (vitamin B12) (02/20/2013 4:13 AM CDT) Cyanocobalamin (Vit B12) 1910(H) 211 - 911 pg/ml HISTORICAL RESULTS Serum 02/20/2013 4:13 AM CDT Darlin Padilla [employer] LAB BLOOD ORDERABLES Final R esult HISTORICAL RESULTS * (ABNORMAL) Blood reticulocyte count (02/20/2013 4:13 AM CDT) Pathologist [facility] Retics 2.7(H) 0.4 - 1.9 % HISTORICAL RESULTS Retics, absolute 0.091 0.015 - 0.092 M/cumm HISTORICAL RESULTS Blood specimen (specimen) 02/20/2013 4:13 AM CDT Darlin Padilla [employer] LAB BLOOD ORDERABLES Final R esult Performing Organization Address [facility] Co de Phone Number HISTORICAL RESULTS * (ABNORMAL) Plasma parathyroid hormone (PTH), intact (02/20/2013 4:13 AM CDT) Pathologist [facility] PTH, intact 254(H) 14 - 72 pg/ml HISTORICAL RESULTS Plasma 02/20/2013 4:13 AM CDT Darlin Padilla [employer] LAB BLOOD ORDERABLES Final R esult HISTORICAL RESULTS * Blood glucose, POC (02/19/2013 9:10 PM CDT) Pathologist [facility] Glucose, POC, bld 125 70 - 199 mg/dl HISTORICAL RESULTS Gluc, com 1, bld RN Notified HISTORICAL RESULTS Blood specimen (specimen) 02/19/2013 9:10 PM CDT Matheus Mahmood MD LAB BLOOD ORDERABLES Final Result Performing Organization Address City/[facility]/ZIP Co de Phone Number HISTORICAL RESULTS * (ABNORMAL) Blood cell count [CBC] express (02/19/2013 4:47 PM CDT) WBC 8.8 3.8 - 9.8 K/cumm HISTORICAL RESULTS RBC 3.52(L) 3.90 - 5.00 M/cumm HISTORICAL RESULTS Hgb 10.4(L) 12.1 - 15.1 g/dl HISTORICAL RESULTS Comment:{Hgb delta due to ap parent blood transfusion.} Hct 31.8(L) 36.1 - 44.3 % HISTORICAL RESULTS MCV 90.3 80.0 - 97.6 fl HISTORICAL RESULTS MCH 29.6 26.7 - 33.7 pg HISTORICAL RESULTS MCHC 32.8 32.7 - 35.5 g/dl HISTORICAL RESULTS Rdw 18.1(H) 11.8 - 14.6 % HISTORICAL RESULTS Platelets 152 140 - 440 K/cumm HISTORICAL RESULTS MPV 9.7 6.8 - 10.4 fl HISTORICAL RESULTS Blood specimen (specimen) 02/19/2013 4:47 PM CDT Charly Goncalves MD LAB BLOOD ORDERABLES Fi nal Result Performing Organization Address [facility] Co de Phone Number HISTORICAL RESULTS * Parvovirus PCR (02/19/2013 4:38 PM CDT) Blood specimen (specimen) (Unknown) 02/19/2013 4:38 PM CDT 02/19/2013 4:53 PM CDT Impressions HISTORICAL RESULTS - 02/21/2013 11:00 PM CDT Testing performed by: [facility], [place] [address]. Narrative HISTORICAL RESULTS - 02/21/2013 11:00 PM CDT Negative for: Parvovirus B19 By Rapid PCR us Historical Provider LAB MICROBIOLOGY - GENERA L ORDERABLES Final Result Performing Organization Address City/[facility] Co de Phone Number HISTORICAL RESULTS * Cytomegalovirus (CMV) PCR (02/19/2013 4:38 PM CDT) Blood specimen (specimen) (Unknown) 02/19/2013 4:38 PM CDT 02/19/2013 6:11 PM CDT Impressions HISTORICAL RESULTS - 02/20/2013 6:17 AM CDT This assay is based on quantitative real-time PCR. ??The primers used amplify a conserved 61 bp region of the DNA polymerase gene of human CMV. ??Based on data from the [facility], these primers do not amplify [...] developed and its performance characteristics determined by [facility]. ??It has not been cleared or approved by the U.S. Food and Drug Administration. ?? Current interpretive data was last revised on 2009. Narrative HISTORICAL RESULTS - 02/20/2013 6:17 AM CDT Negative (<200 copies/ml) Historical Provider LAB MICROBIOLOGY - GENERA L ORDERABLES Final Result Performing Organization Address [facility] Phone Number HISTORICAL RESULTS * (ABNORMAL) Serum lactate dehydrogenase (LDH) (02/19/2013 4:38 PM CDT) Lactate dehydrogenase (LDH) 674(H) 100 - 250 Units/L HISTORICAL RESULTS Serum 02/19/2013 4:38 PM CDT Charly Goncalves MD LAB BLOOD ORDERABLES Fi nal Result Performing Organization Address [facility] Phone Number HISTORICAL RESULTS * (ABNORMAL) Serum haptoglobin (02/19/2013 4:38 PM CDT) Haptoglobin <10.0(L) 27.0 - 220.0 mg/dl HISTORICAL RESULTS Serum 02/19/2013 4:38 PM CDT Charly Goncalves MD LAB BLOOD ORDERABLES Fi nal Result Performing Organization Address [facility] Phone Number HISTORICAL RESULTS * (ABNORMAL) Blood glucose, POC (02/19/2013 4:10 PM CDT) Glucose, POC, bld 207(H) 70 - 199 mg/dl HISTORICAL RESULTS Blood specimen (specimen) 02/19/2013 4:10 PM CDT Matheus Mahmood MD LAB BLOOD ORDERABLES Final Result Performing Organization Address [facility] Phone Number HISTORICAL RESULTS * Histoplasma antigen (02/19/2013 2:58 PM CDT) Urine, clean voided (Unknown) 02/19/2013 2:58 PM CDT 02/19/2013 3:44 PM CDT Impressions HISTORICAL RESULTS - 02/23/2013 12:59 PM CDT Interpretive Data Follow-up Testing Results Interpretation Section: Narrative HISTORICAL RESULTS - 02/23/2013 12:59 PM CDT Negative for: Histoplasma antigen Histoplasma Antigen Result: ??None detected. * ??* ??* ??* ??* Result Interpretation: None detected. ??Negative; Antigen not detected. <0.6-3.9 ng/mL. ??Positive, low; Results reported as <0.6 ng/mL are positive but below the lowest calibrator and cannot be quantified. 4.0-19.9 ng/mL. ??Positive,moderate; Quantitation is most accurate in this area of the calibration curve. 20.0->39 ng/mL. ??Positive, high; Results >39 ng/mL are above the highest calibrator and cannot be quantified. Suggest monitoring antigenemia if antigenuria >39 ng/mL. Confirmation by submitting a second sample is always recommended for all initial positive results. Historical Provider LAB MICROBIOLOGY - GENERA L ORDERABLES Final Result HISTORICAL RESULTS * Blood glucose, POC (02/19/2013 11:31 AM CDT) [facility] Glucose, POC, bld 149 70 - 199 mg/dl HISTORICAL RESULTS Blood specimen (specimen) 02/19/2013 11:31 AM CDT Matheus Mahmood MD LAB BLOOD ORDERABLES Final Result Performing Organization Address City/[facility] Co de Phone Number HISTORICAL RESULTS * CT Abdomen Pelvis WO Contrast (02/19/2013 10:23 AM CDT) Anatomical Region Laterality Modality Body N/A Computed Tomogra phy 02/19/2013 10:2 3 AM CDT Narrative 02/19/2013 3:07 PM CDT ASPEN SAEZ M.D. LOVE LINDO M.D. FINAL REPORT The radiology attending physician has personally reviewed this study, and has reviewed and/or edited this written report and agrees with it. ACC# ??Date Time ??Exam [id number] Feb 19, 2013 10:23:[id number] Abd & Pelvis wo cont [id number] Feb 19, 2013 10:23:[id number] Chest without contrast EXAMINATION: ?? CHEST, ABDOMEN AND PELVIS CT WITHOUT CONTRAST HISTORY: 77-year-old woman status post kidney transplantation postop day 8 with declining hemoglobin and concern for hematoma. TECHNIQUE: ??Axial images of the chest, abdomen and pelvis are obtained using standard protocol. FINDINGS: ??Comparison is made to chest radiograph 02/18/2013. Chest: The thyroid is normal. There is no supraclavicular, axillary or mediastinal lymphadenopathy. A right internal jugular catheter tip ends in the distal superior vena cava. The great vessels of the chest are normal in course and caliber. The heart is normal in size without pericardial effusion. Mitral annulus calcifications are noted. There are diffuse groundglass opacifications with airspace consolidations in a predominantly upper lobe distribution. There is a small left pleural effusion. There is no pneumothorax. Chest/abdomen: Evaluation of the solid organs of the abdomen is limited without IV contrast. The liver has homogeneous hyperattenuating appearance with a normal contour. The spleen, pancreas, and adrenals are normal. The benton kidneys are atrophic with perinephric stranding. The gallbladder is distended without mural thickening or pericholecystic stranding. A transplant kidney is seen in the right hemipelvis with a nephroureteral stent coursing into the bladder. A right abdominal drain courses along the transplant kidney. The stomach, small bowel and large bowel are normal in caliber without evidence of obstruction or inflammation. The great vessels of the abdomen are normal in course and caliber with mild atherosclerotic changes. There is no retroperitoneal or pelvic lymphadenopathy. There is no free air or free fluid in the abdomen or pelvis. The bladder is partially decompressed. The uterus is present. Bone windows do not show any concerning lytic or blastic osseous lesions. IMPRESSION: 1. No evidence of an intrathoracic or intra-abdominal hematoma . 2. Multifocal pneumonia. 3. Hyperintensity of the liver, possibly related to iron overload. 4. A transplant kidney in the right hemipelvis with a nephrostomy catheter coursing to the bladder. ?? Requested By: KAYA GONCALVES M.D. Dictated By: ?? LOVE LINDO M.D. ??on Feb 19 2013 12:01P This document has been electronically signed by: ASPEN SAEZ M.D. on Feb 19 2013 ??3:07P Procedure Note Provider, MD Diego - 10/30/2016 ASPEN SAEZ M.D. LOVE LINDO M.D. FINAL REPORT The radiology attending physician has personally reviewed this study, and has reviewed and/or edited this written report and agrees with it. ACC# Date Time Exam [id number] Feb 19, 2013 10:23:[id number] Abd & Pelvis wo cont [id number] Feb 19, 2013 10:23:[id number] Chest without contrast EXAMINATION: CHEST, ABDOMEN AND PELVIS CT WITHOUT CONTRAST HISTORY: 77-year-old woman status post kidney transplantation postop day 8 with declining hemoglobin and concern for hematoma. TECHNIQUE: Axial images of the chest, abdomen and pelvis are obtained using standard protocol. FINDINGS: Comparison is made to chest radiograph 02/18/2013. Chest: The thyroid is normal. There is no supraclavicular, axillary or mediastinal lymphadenopathy. A right internal jugular catheter tip ends in the distal superior vena cava. The great vessels of the chest are normal in course and caliber. The heart is normal in size without pericardial effusion. Mitral annulus calcifications are noted. There are diffuse groundglass opacifications with airspace consolidations in a predominantly upper lobe distribution. There is a small left pleural effusion. There is no pneumothorax. Chest/abdomen: Evaluation of the solid organs of the abdomen is limited without IV contrast. The liver has homogeneous hyperattenuating appearance with a normal contour. The spleen, pancreas, and adrenals are normal. The benton kidneys are atrophic with perinephric stranding. The gallbladder is distended without mural thickening or pericholecystic stranding. A transplant kidney is seen in the right hemipelvis with a nephroureteral stent coursing into the bladder. A right abdominal drain courses along the transplant kidney. The stomach, small bowel and large bowel are normal in caliber without evidence of obstruction or inflammation. The great vessels of the abdomen are normal in course and caliber with mild atherosclerotic changes. There is no retroperitoneal or pelvic lymphadenopathy. There is no free air or free fluid in the abdomen or pelvis. The bladder is partially decompressed. The uterus is present. Bone windows do not show any concerning lytic or blastic osseous lesions. IMPRESSION: 1. No evidence of an intrathoracic or intra-abdominal hematoma . 2. Multifocal pneumonia. 3. Hyperintensity of the liver, possibly related to iron overload. 4. A transplant kidney in the right hemipelvis with a nephrostomy catheter coursing to the bladder. Requested By: KAYA GONCALVES M.D. Dictated By: LOVE LINDO M.D. on Feb 19 2013 12:01P This document has been electronically signed by: ASPEN SAEZ M.D. on Feb 19 2013 3:07P us Historical Provider MD [facility] CT PROCEDURES Final R esult * CT Chest WO Contrast (02/19/2013 10:23 AM CDT) Anatomical Region Laterality Modality Body N/A Computed Tomogra phy 02/19/2013 10:2 3 AM CDT Narrative 02/19/2013 3:07 PM CDT Areli KURTZ M.D. FINAL REPORT The radiology attending physician has personally reviewed this study, and has reviewed and/or edited this written report and agrees with it. ACC# ??Date Time ??Exam [id number] Feb 19, 2013 10:23:[id number] Abd & Pelvis wo cont [id number] Feb 19, 2013 10:23:[id number] Chest without contrast EXAMINATION: ?? CHEST, ABDOMEN AND PELVIS CT WITHOUT CONTRAST HISTORY: 77-year-old woman status post kidney transplantation postop day 8 with declining hemoglobin and concern for hematoma. TECHNIQUE: ??Axial images of the chest, abdomen and pelvis are obtained using standard protocol. FINDINGS: ??Comparison is made to chest radiograph 02/18/2013. Chest: The thyroid is normal. There is no supraclavicular, axillary or mediastinal lymphadenopathy. A right internal jugular catheter tip ends in the distal superior vena cava. The great vessels of the chest are normal in course and caliber. The heart is normal in size without pericardial effusion. Mitral annulus calcifications are noted. There are diffuse groundglass opacifications with airspace consolidations in a predominantly upper lobe distribution. There is a small left pleural effusion. There is no pneumothorax. Chest/abdomen: Evaluation of the solid organs of the abdomen is limited without IV contrast. The liver has homogeneous hyperattenuating appearance with a normal contour. The spleen, pancreas, and adrenals are normal. The benton kidneys are atrophic with perinephric stranding. The gallbladder is distended without mural thickening or pericholecystic stranding. A transplant kidney is seen in the right hemipelvis with a nephroureteral stent coursing into the bladder. A right abdominal drain courses along the transplant kidney. The stomach, small bowel and large bowel are normal in caliber without evidence of obstruction or inflammation. The great vessels of the abdomen are normal in course and caliber with mild atherosclerotic changes. There is no retroperitoneal or pelvic lymphadenopathy. There is no free air or free fluid in the abdomen or pelvis. The bladder is partially decompressed. The uterus is present. Bone windows do not show any concerning lytic or blastic osseous lesions. IMPRESSION: 1. No evidence of an intrathoracic or intra-abdominal hematoma . 2. Multifocal pneumonia. 3. Hyperintensity of the liver, possibly related to iron overload. 4. A transplant kidney in the right hemipelvis with a nephrostomy catheter coursing to the bladder. ?? Requested By: KAYA GONCALVES M.D. Dictated By: ?? LOVE LINDO M.D. ??on Feb 19 2013 12:01P This document has been electronically signed by: ASPEN SAEZ M.D. on Feb 19 2013 ??3:07P Procedure Note Provider, MD Diego - 10/30/2016 Arlei KURTZ M.D. FINAL REPORT The radiology attending physician has personally reviewed this study, and has reviewed and/or edited this written report and agrees with it. ACC# Date Time Exam [id number] Feb 19, 2013 10:23:[id number] Abd & Pelvis wo cont [id number] Feb 19, 2013 10:23:[id number] Chest without contrast EXAMINATION: CHEST, ABDOMEN AND PELVIS CT WITHOUT CONTRAST HISTORY: 77-year-old woman status post kidney transplantation postop day 8 with declining hemoglobin and concern for hematoma. TECHNIQUE: Axial images of the chest, abdomen and pelvis are obtained using standard protocol. FINDINGS: Comparison is made to chest radiograph 02/18/2013. Chest: The thyroid is normal. There is no supraclavicular, axillary or mediastinal lymphadenopathy. A right internal jugular catheter tip ends in the distal superior vena cava. The great vessels of the chest are normal in course and caliber. The heart is normal in size without pericardial effusion. Mitral annulus calcifications are noted. There are diffuse groundglass opacifications with airspace consolidations in a predominantly upper lobe distribution. There is a small left pleural effusion. There is no pneumothorax. Chest/abdomen: Evaluation of the solid organs of the abdomen is limited without IV contrast. The liver has homogeneous hyperattenuating appearance with a normal contour. The spleen, pancreas, and adrenals are normal. The benton kidneys are atrophic with perinephric stranding. The gallbladder is distended without mural thickening or pericholecystic stranding. A transplant kidney is seen in the right hemipelvis with a nephroureteral stent coursing into the bladder. A right abdominal drain courses along the transplant kidney. The stomach, small bowel and large bowel are normal in caliber without evidence of obstruction or inflammation. The great vessels of the abdomen are normal in course and caliber with mild atherosclerotic changes. There is no retroperitoneal or pelvic lymphadenopathy. There is no free air or free fluid in the abdomen or pelvis. The bladder is partially decompressed. The uterus is present. Bone windows do not show any concerning lytic or blastic osseous lesions. IMPRESSION: 1. No evidence of an intrathoracic or intra-abdominal hematoma . 2. Multifocal pneumonia. 3. Hyperintensity of the liver, possibly related to iron overload. 4. A transplant kidney in the right hemipelvis with a nephrostomy catheter coursing to the bladder. Requested By: KAYA GONCALVES M.D. Dictated By: LOVE LINDO M.D. on Feb 19 2013 12:01P This document has been electronically signed by: ASPEN SAEZ M.D. on Feb 19 2013 3:07P Historical Provider IMG CT PROCEDURES Final R esult * Blood glucose, POC (02/19/2013 7:35 AM CDT) Glucose, POC, bld 127 70 - 199 mg/dl HISTORICAL RESULTS Blood specimen (specimen) 02/19/2013 7:35 AM CDT Matheus Mahmood MD LAB BLOOD ORDERABLES Final Result Performing Organization Address [facility] Co de Phone Number HISTORICAL RESULTS * Urine (aerobic) culture (02/19/2013 5:31 AM CDT) Urine (Unknown) 02/19/2013 5 :31 AM CDT 02/19/2013 6:14 AM CDT Narrative HISTORICAL RESULTS - 02/20/2013 8:24 AM CDT No growth Historical Provider LAB MICROBIOLOGY - GENERA L ORDERABLES Final Result Performing Organization Address [facility] Co de Phone Number HISTORICAL RESULTS * (ABNORMAL) Urinalysis (02/19/2013 5:31 AM CDT) Color, ur Yellow Yellow HISTORICAL RESULTS Clarity, ur Clear Clear HISTORIC AL RESULTS Specific gravity, ur 1.012 1.003 - 1.030 HISTORICAL RESULTS pH, ur 7.0 5.0 - 8.0 HISTORICAL RESULTS Protein, ur 1+(A) Trace HISTORIC AL RESULTS Glucose, ur 1+(A) Negative HISTORIC AL RESULTS Ketones, ur Negative Negative HISTORIC AL RESULTS Bilirubin, ur Negative Negative HISTOR ICAL RESULTS U Blood 2+(A) Negative HISTORICAL RESULTS Urobilinogen, quant, ur <2.0 0.0 - 2.0 mg/dl HISTORICAL RESULTS Nitrites, ur Negative Negative HISTORI CHANO RESULTS Leukocyte esterase, ur Negative Negative HISTORICAL RESULTS Urine 02/19/2013 5:31 AM CDT Kristin Acevedo NP LAB BLOOD ORDERA BLES Final Result Performing Organization Address [facility]/ZIP Co de Phone Number HISTORICAL RESULTS * (ABNORMAL) Urine microscopy (02/19/2013 5:31 AM CDT) RBC, ur 16(H) 0 - 3 /hpf HISTORICA L RESULTS WBC, ur 4 0 - 5 /hpf HISTORICA L RESULTS Bacteria, ur Negative Trace HISTORI CHANO RESULTS Epithelial cells, renal, ur 0 0 - 0 /hpf HISTORICAL RESULTS Epithelial cells, squamous, ur 6 /lpf HISTORICAL RESULTS Mucus, ur Small /hpf HISTORICAL RESULTS Urine 02/19/2013 5:31 AM CDT Kristin Acevedo SUPER[employer]OR [employer] LAB BLOOD ORDERA BLES Final Result Performing Organization Address [facility] Co de Phone Number HISTORICAL RESULTS * (ABNORMAL) Serum bilirubin, direct (02/19/2013 3:39 AM CDT) Bilirubin, direct 0.5(H) 0.0 - 0.3 mg/dl HISTORICAL RESULTS Serum 02/19/2013 3:39 AM CDT Kristin Acevedo SUPER[employer] LAB BLOOD ORDERA BLES Final Result Performing Organization Address [facility] Co de Phone Number HISTORICAL RESULTS * (ABNORMAL) Serum lactate dehydrogenase (LDH) (02/19/2013 3:39 AM CDT) Lactate dehydrogenase (LDH) 576(H) 100 - 250 Units/L HISTORICAL RESULTS Serum 02/19/2013 3:39 AM CDT Kristin Acevedo SUPER[employer] LAB BLOOD ORDERA BLES Final Result Performing Organization Address [facility] de Phone Number HISTORICAL RESULTS * (ABNORMAL) Plasma basic metabolic panel (02/19/2013 3:39 AM CDT) Sodium 135 135 - 145 mmol/L HISTORICAL RESULTS K, pl 4.5 3.3 - 4.9 mmol/L HISTORICAL RESULTS Chloride 101 97 - 110 mmol/L HISTORICAL RESULTS CO2 28 22 - 32 mmol/L HISTORICAL RESULTS A. gap 6 0 - 16 mmol/L HISTORICAL RESULTS Glucose 93 70 - 199 mg/dl HISTORICAL RESULTS BUN 69(H) 8 - 25 mg/dl HISTORICAL RESULTS Creatinine 1.88(H) 0.60 - 1.10 mg/dl HISTORICAL RESULTS Calcium 9.8 8.6 - 10.3 mg/dl HISTORICAL RESULTS Plasma 02/19/2013 3:39 AM CDT Kristin Rochenicovthaley SUPER[employer] LAB BLOOD ORDERA BLES Final Result Performing Organization Address [facility] de Phone Number HISTORICAL RESULTS * (ABNORMAL) Plasma phosphorus (02/19/2013 3:39 AM CDT) Pathologist [facility] Phosphorus, pl 2.2(L) 2.3 - 4.3 mg/dl HISTORICAL RESULTS Plasma 02/19/2013 3:39 AM CDT Kristin Lariosjohann Kaleygus SUPER[employer] LAB BLOOD ORDERA BLES Final Result Performing Organization Address [facility] de Phone Number HISTORICAL RESULTS * (ABNORMAL) Serum bilirubin (02/19/2013 3:39 AM CDT) Pathologist [facility] Bilirubin 1.2(H) 0.3 - 1.1 mg/dl HISTORICAL RESULTS Serum 02/19/2013 3:39 AM CDT Kristin Simkyra Kaleynicovthaley LAB BLOOD ORDERA BLES Final Result Performing Organization Address [facility] de Phone Number HISTORICAL RESULTS * Serum magnesium (02/19/2013 3:39 AM CDT) Pathologist [facility] Magnesium 2.0 1.4 - 2.5 mg/dl HISTORICAL RESULTS Serum 02/19/2013 3:39 AM CDT Kristin Simkyra Acevedo SUPER[employer] LAB BLOOD ORDERA BLES Final Result Performing Organization Address [facility] de Phone Number HISTORICAL RESULTS * (ABNORMAL) Blood cell count (CBC) (02/19/2013 3:39 AM CDT) Pathologist [facility] WBC 9.3 3.8 - 9.8 K/cumm HISTORICAL RESULTS RBC 2.28(L) 3.90 - 5.00 M/cumm HISTORICAL RESULTS Hgb 7.1(L) 12.1 - 15.1 g/dl HISTORICAL RESULTS Hct 21.0(L) 36.1 - 44.3 % HISTORICAL RESULTS MCV 92.3 80.0 - 97.6 fl HISTORICAL RESULTS MCH 31.1 26.7 - 33.7 pg HISTORICAL RESULTS MCHC 33.7 32.7 - 35.5 g/dl HISTORICAL RESULTS Rdw 16.8(H) 11.8 - 14.6 % HISTORICAL RESULTS Platelets 131(L) 140 - 440 K/cumm HISTORICAL RESULTS MPV 9.3 6.8 - 10.4 fl HISTORICAL RESULTS Neutrophils 92.7(H) 38.7 - 74.5 % HISTORICAL RESULTS Lymphocytes 1.8(L) 20.0 - 54.3 % HISTORICAL RESULTS Monos 5.2 4.3 - 13.5 % HISTORICAL RESULTS Eosinophils 0.3 0.0 - 6.0 % HISTORICAL RESULTS Basophils 0.0 0.0 - 3.0 % HISTORICAL RESULTS Neutrophils, abs 8.6(H) 1.8 - 6.6 K/cumm HISTORICAL RESULTS Lymphocytes, abs 0.2(L) 1.2 - 3.3 K/cumm HISTORICAL RESULTS Monocytes, absolute 0.5 0.2 - 1.2 K/cumm HISTORICAL RESULTS Eosinophils, abs 0.0 0.0 - 0.5 K/cumm HISTORICAL RESULTS Basophils, abs 0.0 0.0 - 0.2 K/cumm HISTORICAL RESULTS Blood specimen (specimen) 02/19/2013 3:39 AM CDT Kristin Acevedo SUPER[employer] LAB BLOOD ORDERA BLES Final Result HISTORICAL RESULTS * Blood tacrolimus (FK-506), trough drug level (02/19/2013 3:39 AM CDT) Tacrolimus, trough 10.2 ng/ml H ISTORICAL RESULTS Comment: Interpretive Data This test was developed using an analyte specific reagent. ??Its performance characteristics were determined by the [facility] in a manner consistent with CLIA requirements. This test has not been cleared or approved by the U.S. Food and Drug Administration. Current interpretive data was last revised on 2011. Blood specimen (specimen) 02/19/2013 3:39 AM CDT Kristin Rochegus SUPERVISOR [employer] LAB BLOOD ORDERA BLES Final Result Performing Organization Address [facility] Co de Phone Number HISTORICAL RESULTS * Blood direct antiglobulin test (02/19/2013 3:39 AM CDT) Emerita, direct, polyspecific Negative HISTORICAL RESULTS Blood specimen (specimen) 02/19/2013 3:39 AM CDT Kristin Rochenicohio SUPERVIS[employer] LAB BLOOD ORDERA BLES Final Result Performing Organization Address [facility] Co de Phone Number HISTORICAL RESULTS * Blood ABO, Rh, indirect ab screen (02/19/2013 3:39 AM CDT) ABO, Rho(D) B Positive HISTORI CHANO RESULTS Emerita, indirect Negative HISTORICAL RESULTS Blood specimen (specimen) 02/19/2013 3:39 AM CDT Kristin Kuohio SUPERVISOR [employer] LAB BLOOD ORDERA BLES Final Result Performing Organization Address [facility] de Phone Number HISTORICAL RESULTS * All Microbiology Report Section (02/19/2013 12:00 AM CDT) 02/19/2013 Narrative HISTORICAL RESULTS - 02/28/2013 1:05 PM CDT ? [facility] ?[address] [facility] [address] ?[place], [place] [address] ? Patient Name: ??AMANDA DUNLAP ? Med Rec Number: [id number] ? Fin Number: ?[id number] ? Date: ?1935 ? Sex/Age: ? Female 77 years ? Admit Date: ?02/09/2013 ? Discharge Date: 02/25/2013 ? Doctor: ?Wellen , Matheus R ? Facility: ?[facility] ? Location: ?OTHER ?* Abnormal ??A Alert ??f Footnote ??^ Corrected ??L Low ??H High ?i Interp Data ??@ Ref Lab ? Chart Type:Cumulative ?* * * * MICROBIOLOGY - ANTIGEN TESTING * * * * ?PROCEDURE: Histoplasma Antigen ? SOURCE: Urine, clean voided ? COLLECTED: 02/19/13 ??1458 ?BODY SITE: ? STARTED: 02/19/ ??1544 ? FREE TEXT SOURCE: ? DIRECT SPECIMEN EXAMINATION ? Direct Antigen Testing - Final ? REPORTED: 02/23/13 3429 ? Negative for: Histoplasma antigen Histoplasma Antigen Result: ? None detected. * ??* ??* ??* ??* Result Interpretation: None ? detected. ??Negative; Antigen not detected. <0.6-3.9 ng/mL. ? Positive, low; Results reported as <0.6 ng/mL are positive but ? below the lowest calibrator and cannot be quantified. 4.0-19.9 ? ng/mL. ??Positive,moderate; Quantitation is most accurate in this ? area of the calibration curve. 20.0 ? 39 ng/mL. ??Positive, high; Results >39 ng/mL are above the ? highest calibrator and cannot be quantified. Suggest monitoring ? antigenemia if antigenuria >39 ng/mL. Confirmation by submitting ? a second sample is always recommended for all initial positive ? results. ?* * * ??Interpretive Results ??* * * ? (1)Interpretive DataFollow-up Testing Results Interpretation ? Section:Guidelines for comparing current specimen results with ? previous results (Only results from identical specimen types can ? be compared) For Low-Moderate Positives (<20 ng/mL): Change in ? Ag/Interpretation >3 ng/mL; increase Probable treatment ? failure/relapse < or = 3 ng/mL; decrease Possible treatment ? failure >3 ng/mL decrease; Probable treatment response For High ? Positives (> or = 20 ng/mL): Change in Ag/Interpretation>15% ? increase; Probable treatment failure/relapse < or = 15% decrease; ? Possible treatment failure >15% decrease; Probable treatment ? response Please note new reference range information, the ? deletion of test parameters, the addition of a new comment test ? parameter, and new units of measure effective September 03, 2006. ? Testing performed by: [facility], [place] ? [address].Current interpretive data was last revised on 07. ? us Historical Provider MD LAB MICROBIOLOGY - GENERA L ORDERABLES Final Result HISTORICAL RESULTS * All Microbiology Report Section (02/19/2013 12:00 AM CDT) 02/19/2013 Narrative HISTORICAL RESULTS - 02/28/2013 1:05 PM CDT ? [facility] ?[address] [facility] [address] ?[place], [place] [address] ? Patient Name: ??AMANDA DUNLAP ? Med Rec Number: [id number] ? Fin Number: ?[id number] ? Date: ?1935 ? Sex/Age: ? Female 77 years ? Admit Date: ?02/09/2013 ? Discharge Date: 02/25/2013 ? Doctor: ?Mahteus Mahmood ? Facility: ?[facility] ? Location: ?OTHER ?* Abnormal ??A Alert ??f Footnote ??^ Corrected ??L Low ??H High ?i Interp Data ??@ Ref Lab ? Chart Type:Cumulative ?* * * * MICROBIOLOGY - MOLECULAR TESTING * * * * ?PROCEDURE: Parvovirus PCR ? SOURCE: Blood ? COLLECTED: 08/17/13 ??1638 ?BODY SITE: ? STARTED: 08/17/13 ??1653 ? FREE TEXT SOURCE: ? FINAL REPORT ? REPORTED: 02/21/13 2300 ? Negative for: Parvovirus B19 By Rapid PCR ?* * * ??Interpretive Results ??* * * ? (1)Testing performed by: [facility], [place] ? [address]. ? us Historical Provider MD LAB MICROBIOLOGY - GENERA L ORDERABLES Final Result HISTORICAL RESULTS * All Microbiology Report Section (02/19/2013 12:00 AM CDT) 02/19/2013 Narrative HISTORICAL RESULTS - 02/28/2013 1:05 PM CDT ? [facility] ?[address] [facility] [address] ?[place], [place] [address] ? Patient Name: ??AMANDA DUNLAP A ? Med Rec Number: [id number] ? Fin Number: ?[id number] ? Date: ?1935 ? Sex/Age: ? Female 77 years ? Admit Date: ?02/09/2013 ? Discharge Date: 02/25/2013 ? Doctor: ?Matheus Mahmood ? Facility: ?[facility] ? Location: ?OTHER ?* Abnormal ??A Alert ??f Footnote ??^ Corrected ??L Low ??H High ?i Interp Data ??@ Ref Lab ? Chart Type:Cumulative ?* * * * MICROBIOLOGY - URINE * * * * ?PROCEDURE: Urine Culture ? SOURCE: Urine ? COLLECTED: 02/19/13 ??0531 ?BODY SITE: ? STARTED: 02/19/13 ??0614 ? FREE TEXT SOURCE: ? FINAL REPORT ? REPORTED: 02/20/13823 ? No growth us Historical Provider MD LAB MICROBIOLOGY - GENERA L ORDERABLES Final Result HISTORICAL RESULTS * All Microbiology Report Section (02/19/2013 12:00 AM CDT) 02/19/2013 Narrative HISTORICAL RESULTS - 02/28/2013 1:05 PM CDT ? [facility] ?[address] [facility] [address] ?[place] [address] ? Patient Name: ??AMANDA DUNLAP ? Med Rec Number: [id number] ? Fin Number: ?[id number] ? Date: ?1935 ? Sex/Age: ? Female 77 years ? Admit Date: ?02/09/2013 ? Discharge Date: 02/25/2013 ? Doctor: ?Matheus Mahmood R ? Facility: ?[facility] ? Location: ?OTHER ?* Abnormal ??A Alert ??f Footnote ??^ Corrected ??L Low ??H High ?i Interp Data ??@ Ref Lab ? Chart Type:Cumulative ?* * * * MICROBIOLOGY - MOLECULAR TESTING * * * * ?PROCEDURE: Cytomegalovirus PCR, Blood ? SOURCE: Blood ? COLLECTED: 02/19/13 ??1638 ?BODY SITE: ? STARTED: 02/19/13 ??1811 ? FREE TEXT SOURCE: ? FINAL REPORT ? REPORTED: 02/20/13 0617 ? Negative (<200 copies/ml) ? ORDER COMMENTS ? (1)Testing performed by: [facility], [place], ? [place]. ??[address]. ??Testing performed by: [facility], ? [place], [place]. ??[address]. ?* * * ??Interpretive Results ??* * * ? (1)This assay is based on quantitative real-time PCR. ??The primers ? used amplify a conserved 61 bp region of the DNA polymerase gene ? of human CMV. ??Based on data from the [facility], these primers do [...] its performance characteristics determined by . ? [facility]. ??It has not been cleared ? or approved by the U.S. Food and Drug Administration. ??Current ? interpretive data was last revised on 2009. ? us Historical Provider LAB MICROBIOLOGY - GENERA L ORDERABLES Final Result HISTORICAL RESULTS * Blood glucose, POC (02/18/2013 8:43 PM CDT) Glucose, POC, bld 168 70 - 199 mg/dl HISTORICAL RESULTS Blood specimen (specimen) 02/18/2013 8:43 PM CDT Matheus Mahmood MD LAB BLOOD ORDERABLES Final Result Performing Organization Address City/[facility]/ZIP Co de Phone Number HISTORICAL RESULTS * XR Chest 1 View (02/18/2013 4:40 PM CDT) Anatomical Region Laterality Modality Body, Chest N/A Radiographic Tomeka ging 02/18/2013 4:40 PM CDT Narrative 02/18/2013 6:50 PM CDT Areli HERNANDEZ M.D. FINAL REPORT The radiology attending physician has personally reviewed this study, and has reviewed and/or edited this written report and agrees with it. ACC# ??Date Time ??Exam [id number] Feb 18, 2013 16:40:00 [id number] Chest 1 view Frontal EXAMINATION: ?? Chest 1 view IMPRESSION: ?? Portable AP radiograph compared 02/17/2013. Right subclavian central venous catheter with tip overlying the superior vena cava is unchanged. There has been interval improvement in the multifocal airspace opacities consistent with improving edema. Underlying pneumonia cannot be excluded. No pneumothorax or pleural effusion. Cardiomediastinal silhouette is stable. Requested By: KAYA GONCALVES M.D. Dictated By: ?? ATUL KENDRICK M.D. ??on Feb 18 2013 ??5:31P This document has been electronically signed by: ANALI CHAVEZ M.D. on Feb 18 2013 ??6:50P Procedure Note Provider, MD Diego - 10/30/2016 Areli HERNANDEZICA DRYLEWICZ, M.D. FINAL REPORT The radiology attending physician has personally reviewed this study, and has reviewed and/or edited this written report and agrees with it. ACC# Date Time Exam [id number] Feb 18, 2013 16:40:00 [id number] Chest 1 view Frontal EXAMINATION: Chest 1 view IMPRESSION: Portable AP radiograph compared 02/17/2013. Right subclavian central venous catheter with tip overlying the superior vena cava is unchanged. There has been interval improvement in the multifocal airspace opacities consistent with improving edema. Underlying pneumonia cannot be excluded. No pneumothorax or pleural effusion. Cardiomediastinal silhouette is stable. Requested By: KAYA GONCALVES M.D. Dictated By: ATUL KENDRICK M.D. on Feb 18 2013 5:31P This document has been electronically signed by: ANALI CHAVEZ M.D. on Feb 18 2013 6:50P Historical Provider MD JACKSON XR PROCEDURES Final R esult * (ABNORMAL) Serum vancomycin, trough drug level (02/18/2013 4:34 PM CDT) Pathologist [facility] Vancomycin, trough 25.5(C) 10.0 - 20.9 mcg/ml HISTORICAL RESULTS Comment: Interpretive Data Therapeutic Range: ?? Uncomplicated skin and soft tissue infections: 10-20 mcg/mL ?? All other infections: ??15-20 mcg/mL Current interpretive data was last revised on 12. Serum 02/18/2013 4:34 PM CDT Kristin Acevedo SUPERVIS[employer] LAB BLOOD ORDERA BLES Final Result HISTORICAL RESULTS * Plasma potassium (02/18/2013 4:34 PM CDT) Pathologist [facility] K, pl 4.3 3.3 - 4.9 mmol/L HISTORICAL RESULTS Plasma 02/18/2013 4:34 PM CDT Kristin Acevedo SUPER[employer] LAB BLOOD ORDERA BLES Final Result HISTORICAL RESULTS * Critical result call back (02/18/2013 4:34 PM CDT) Date notified 02/18/2013 HISTO RICAL RESULTS Time notified 1827 HISTOR ICAL RESULTS Test name vancomycin trough HISTORICAL RESULTS Called to Joycelyn Savage HISTORIC AL RESULTS Credentials RN HISTORIC AL RESULTS Called by kat HISTORICAL RESULTS No specimen 02/18/2013 4:34 PM CDT us Kristin Acevedo [employer]PER[employer] LAB BLOOD ORDERA BLES Final Result Performing Organization Address [facility] Co de Phone Number HISTORICAL RESULTS * Blood glucose, POC (02/18/2013 4:07 PM CDT) Glucose, POC, bld 135 70 - 199 mg/dl HISTORICAL RESULTS Blood specimen (specimen) 02/18/2013 4:07 PM CDT us Matheus Mahmood MD LAB BLOOD ORDERABLES Final Result Performing Organization Address [facility] Co de Phone Number HISTORICAL RESULTS * (ABNORMAL) Blood glucose, POC (02/18/2013 11:46 AM CDT) Glucose, POC, bld 251(H) 70 - 199 mg/dl HISTORICAL RESULTS Blood specimen (specimen) 02/18/2013 11:46 AM CDT us Matheus Mahmood MD LAB BLOOD ORDERABLES Final Result HISTORICAL RESULTS * Blood glucose, POC (02/18/2013 7:35 AM CDT) Glucose, POC, bld 140 70 - 199 mg/dl HISTORICAL RESULTS Blood specimen (specimen) 02/18/2013 7:35 AM CDT us Matheus Mahmood MD LAB BLOOD ORDERABLES Final Result Performing Organization Address [facility] Phone Number HISTORICAL RESULTS * (ABNORMAL) Plasma basic metabolic panel (02/18/2013 4:41 AM CDT) Sodium 135 135 - 145 mmol/L HISTORICAL RESULTS K, pl 4.0 3.3 - 4.9 mmol/L HISTORICAL RESULTS Chloride 97 97 - 110 mmol/L HISTORICAL RESULTS CO2 28 22 - 32 mmol/L HISTORICAL RESULTS A. gap 10 0 - 16 mmol/L HISTORICAL RESULTS Glucose 121 70 - 199 mg/dl HISTORICAL RESULTS BUN 69(H) 8 - 25 mg/dl HISTORICAL RESULTS Creatinine 2.06(H) 0.60 - 1.10 mg/dl HISTORICAL RESULTS Calcium 10.1 8.6 - 10.3 mg/dl HISTORICAL RESULTS Plasma 02/18/2013 4:41 AM CDT Monica CASE LAB BLOOD ORDERABLES Final Result Performing Organization Address [facility] Phone Number HISTORICAL RESULTS * (ABNORMAL) Plasma phosphorus (02/18/2013 4:41 AM CDT) Phosphorus, pl 1.9(L) 2.3 - 4.3 mg/dl HISTORICAL RESULTS Plasma 02/18/2013 4:41 AM CDT Monica CASE LAB BLOOD ORDERABLES Final Result Performing Organization Address [facility] Phone Number HISTORICAL RESULTS * Serum magnesium (02/18/2013 4:41 AM CDT) Pathologist [facility] Magnesium 2.0 1.4 - 2.5 mg/dl HISTORICAL RESULTS Serum 02/18/2013 4:41 AM CDT Monica CASE LAB BLOOD ORDERABLES Final Result Performing Organization Address [facility] de Phone Number HISTORICAL RESULTS * (ABNORMAL) Blood cell count (CBC) (02/18/2013 4:41 AM CDT) WBC 10.1(H) 3.8 - 9.8 K/cumm HISTORICAL RESULTS Rdw 16.4(H) 11.8 - 14.6 % HISTORICAL RESULTS RBC 2.50(L) 3.90 - 5.00 M/cumm HISTORICAL RESULTS Platelets 135(L) 140 - 440 K/cumm HISTORICAL RESULTS Hgb 7.9(L) 12.1 - 15.1 g/dl HISTORICAL RESULTS MPV 9.2 6.8 - 10.4 fl HISTORICAL RESULTS Hct 22.8(L) 36.1 - 44.3 % HISTORICAL RESULTS Neutrophils 92.9(H) 38.7 - 74.5 % HISTORICAL RESULTS MCV 91.2 80.0 - 97.6 fl HISTORICAL RESULTS Lymphocytes 1.6(L) 20.0 - 54.3 % HISTORICAL RESULTS MCH 31.7 26.7 - 33.7 pg HISTORICAL RESULTS Monos 5.4 4.3 - 13.5 % HISTORICAL RESULTS MCHC 34.7 32.7 - 35.5 g/dl HISTORICAL RESULTS Eosinophils 0.1 0.0 - 6.0 % HISTORICAL RESULTS Basophils 0.0 0.0 - 3.0 % HISTORICAL RESULTS Neutrophils, abs 9.4(H) 1.8 - 6.6 K/cumm HISTORICAL RESULTS Lymphocytes, abs 0.2(L) 1.2 - 3.3 K/cumm HISTORICAL RESULTS Monocytes, absolute 0.5 0.2 - 1.2 K/cumm HISTORICAL RESULTS Eosinophils, abs 0.0 0.0 - 0.5 K/cumm HISTORICAL RESULTS Basophils, abs 0.0 0.0 - 0.2 K/cumm HISTORICAL RESULTS Blood specimen (specimen) 02/18/2013 4:41 AM CDT Monica CASE LAB BLOOD ORDERABLES Final Result HISTORICAL RESULTS * Blood tacrolimus (FK-506), trough drug level (02/18/2013 4:41 AM CDT) Tacrolimus, trough 5.0 ng/ml H ISTORICAL RESULTS Comment: Interpretive Data This test was developed using an analyte specific reagent. ??Its performance characteristics were determined by the [facility] in a manner consistent with CLIA requirements. This test has not been cleared or approved by the U.S. Food and Drug Administration. Current interpretive data was last revised on 2011. Blood specimen (specimen) 02/18/2013 4:41 AM CDT Result [facility] Monica CASE LAB BLOOD ORDERABLES Final Result Performing Organization Address [facility] Phone Number HISTORICAL RESULTS * Blood glucose, POC (02/17/2013 8:38 PM CDT) Glucose, POC, bld 166 70 - 199 mg/dl HISTORICAL RESULTS Blood specimen (specimen) 02/17/2013 8:38 PM CDT Result [facility] Matheus Mahmood MD LAB BLOOD ORDERABLES Final Result Performing Organization Address [facility] Phone Number HISTORICAL RESULTS * Blood glucose, POC (02/17/2013 5:14 PM CDT) Glucose, POC, bld 190 70 - 199 mg/dl HISTORICAL RESULTS Blood specimen (specimen) 02/17/2013 5:14 PM CDT Result [facility] Matheus Mahmood MD LAB BLOOD ORDERABLES Final Result Performing Organization Address [facility] Phone Number HISTORICAL RESULTS * Blood glucose, POC (02/17/2013 11:25 AM CDT) Glucose, POC, bld 167 70 - 199 mg/dl HISTORICAL RESULTS Blood specimen (specimen) 02/17/2013 11:25 AM CDT Result [facility] Matheus Mahmood MD LAB BLOOD ORDERABLES Final Result Performing Organization Address [facility] Phone Number HISTORICAL RESULTS * CHEST RADIOGRAPHY, FRONTAL (AP), LATERAL (02/17/2013 8:14 AM CDT) Anatomical Region Laterality Modality N/A Radiographic Tomeka ging 02/17/2013 8:14 AM CDT Narrative 02/17/2013 9:39 AM CDT Areli COLEMAN M.D. FINAL REPORT The radiology attending physician has personally reviewed this study, and has reviewed and/or edited this written report and agrees with it. ACC# ??Date Time ??Exam [id number] Feb 17, 2013 08:14:00 55321 Chest 2 views Front&Lat EXAMINATION: ?? Chest 2 views ?? IMPRESSION: ?? PA and lateral views compared 02/14/2013. Right internal jugular central venous catheter with tip overlying the superior vena cava is unchanged. There has been interval mild worsening of the diffuse mid and upper lung predominant interstitial and airspace infiltrates concerning for pneumonia. There has been interval improvement in the small to moderate left pleural effusion with associated atelectasis. No pneumothorax. Cardiomediastinal silhouette is stable. ?? Requested By: REBEKA RAMIREZ PA-C Dictated By: ?? ATUL KENDRICK M.D. ??on Feb 17 2013 ??9:37A This document has been electronically signed by: YA GARCIA M.D. on Feb 17 2013 ??9:39A Procedure Note Provider, MD Diego - 10/30/2016 YA GARCIA M.D. ATUL KENDRICK M.D. FINAL REPORT The radiology attending physician has personally reviewed this study, and has reviewed and/or edited this written report and agrees with it. ACC# Date Time Exam [id number] Feb 17, 2013 08:14:00 [id number] Chest 2 views Front&Lat EXAMINATION: Chest 2 views IMPRESSION: PA and lateral views compared 02/14/2013. Right internal jugular central venous catheter with tip overlying the superior vena cava is unchanged. There has been interval mild worsening of the diffuse mid and upper lung predominant interstitial and airspace infiltrates concerning for pneumonia. There has been interval improvement in the small to moderate left pleural effusion with associated atelectasis. No pneumothorax. Cardiomediastinal silhouette is stable. Requested By: REBEKA RAMIREZ PA-C Dictated By: ATUL KENDRICK M.D. on Feb 17 2013 9:37A This document has been electronically signed by: YA GARCIA M.D. on Feb 17 2013 9:39A Historical Provider MD JACKSON XR PROCEDURES Final R esult * Blood glucose, POC (02/17/2013 7:28 AM CDT) [facility] Glucose, POC, bld 129 70 - 199 mg/dl HISTORICAL RESULTS Blood specimen (specimen) 02/17/2013 7:28 AM CDT Matheus Mahmood MD LAB BLOOD ORDERABLES Final Result Performing Organization Address [facility] de Phone Number HISTORICAL RESULTS * Serum magnesium (02/17/2013 4:08 AM CDT) [facility] Magnesium 2.0 1.4 - 2.5 mg/dl HISTORICAL RESULTS Serum 02/17/2013 4:08 AM CDT Rebeka Ramirez LAB BLOOD ORDERABLES Final Resul t Performing Organization Address [facility] de Phone Number HISTORICAL RESULTS * (ABNORMAL) Blood cell count (CBC) (02/17/2013 4:08 AM CDT) [facility] WBC 9.4 3.8 - 9.8 K/cumm HISTORICAL RESULTS RBC 2.66(L) 3.90 - 5.00 M/cumm HISTORICAL RESULTS Hgb 8.3(L) 12.1 - 15.1 g/dl HISTORICAL RESULTS Hct 24.2(L) 36.1 - 44.3 % HISTORICAL RESULTS MCV 91.2 80.0 - 97.6 fl HISTORICAL RESULTS MCH 31.2 26.7 - 33.7 pg HISTORICAL RESULTS MCHC 34.2 32.7 - 35.5 g/dl HISTORICAL RESULTS Rdw 16.9(H) 11.8 - 14.6 % HISTORICAL RESULTS Platelets 113(L) 140 - 440 K/cumm HISTORICAL RESULTS MPV 9.3 6.8 - 10.4 fl HISTORICAL RESULTS Neutrophils 94.4(H) 38.7 - 74.5 % HISTORICAL RESULTS Lymphocytes 1.3(L) 20.0 - 54.3 % HISTORICAL RESULTS Monos 4.2(L) 4.3 - 13.5 % HISTORICAL RESULTS Eosinophils 0.1 0.0 - 6.0 % HISTORICAL RESULTS Basophils 0.0 0.0 - 3.0 % HISTORICAL RESULTS Neutrophils, abs 8.8(H) 1.8 - 6.6 K/cumm HISTORICAL RESULTS Lymphocytes, abs 0.1(L) 1.2 - 3.3 K/cumm HISTORICAL RESULTS Monocytes, absolute 0.4 0.2 - 1.2 K/cumm HISTORICAL RESULTS Eosinophils, abs 0.0 0.0 - 0.5 K/cumm HISTORICAL RESULTS Basophils, abs 0.0 0.0 - 0.2 K/cumm HISTORICAL RESULTS Blood specimen (specimen) 02/17/2013 4:08 AM CDT Rebeka Ramirez LAB BLOOD ORDERABLES Final Resul t Performing Organization Address [facility] de Phone Number HISTORICAL RESULTS * (ABNORMAL) Plasma renal panel (02/17/2013 4:08 AM CDT) Pathologist [facility] Sodium 135 135 - 145 mmol/L HISTORICAL RESULTS K, pl 3.5 3.3 - 4.9 mmol/L HISTORICAL RESULTS Chloride 98 97 - 110 mmol/L HISTORICAL RESULTS CO2 27 22 - 32 mmol/L HISTORICAL RESULTS A. gap 10 0 - 16 mmol/L HISTORICAL RESULTS Glucose 139 70 - 199 mg/dl HISTORICAL RESULTS BUN 68(H) 8 - 25 mg/dl HISTORICAL RESULTS Creatinine 2.18(H) 0.60 - 1.10 mg/dl HISTORICAL RESULTS Calcium 9.9 8.6 - 10.3 mg/dl HISTORICAL RESULTS Phosphorus, pl 2.4 2.3 - 4.3 mg/dl HISTORICAL RESULTS Alb 3.2(L) 3.6 - 5.0 g/dl HISTORICAL RESULTS Plasma 02/17/2013 4:08 AM CDT Rebeka Ramirez LAB BLOOD ORDERABLES Final Resul t Performing Organization Address [facility] de Phone Number HISTORICAL RESULTS * Blood tacrolimus (FK-506), trough drug level (02/17/2013 4:08 AM CDT) Tacrolimus, trough 7.1 ng/ml H ISTORICAL RESULTS Comment: Interpretive Data This test was developed using an analyte specific reagent. ??Its performance characteristics were determined by the [facility] in a manner consistent with CLIA requirements. This test has not been cleared or approved by the U.S. Food and Drug Administration. Current interpretive data was last revised on 2011. Blood specimen (specimen) 02/17/2013 4:08 AM CDT Rebeka Ramirez LAB BLOOD ORDERABLES Final Resul t Performing Organization Address [facility] de Phone Number HISTORICAL RESULTS * Blood glucose, POC (02/16/2013 8:44 PM CDT) Glucose, POC, bld 159 70 - 199 mg/dl HISTORICAL RESULTS Blood specimen (specimen) 02/16/2013 8:44 PM CDT Result [facility] Matheus Mahmood MD LAB BLOOD ORDERABLES Final Result Performing Organization Address [facility] de Phone Number HISTORICAL RESULTS * Blood glucose, POC (02/16/2013 3:47 PM CDT) Glucose, POC, bld 179 70 - 199 mg/dl HISTORICAL RESULTS Blood specimen (specimen) 02/16/2013 3:47 PM CDT Result [facility] Matheus Mahmood MD LAB BLOOD ORDERABLES Final Result Performing Organization Address [facility] de Phone Number HISTORICAL RESULTS * Blood glucose, POC (02/16/2013 11:50 AM CDT) Glucose, POC, bld 168 70 - 199 mg/dl HISTORICAL RESULTS Blood specimen (specimen) 02/16/2013 11:50 AM CDT Matheus Mahmood MD LAB BLOOD ORDERABLES Final Result Performing Organization Address [facility] de Phone Number HISTORICAL RESULTS * Blood glucose, POC (02/16/2013 7:39 AM CDT) Glucose, POC, bld 127 70 - 199 mg/dl HISTORICAL RESULTS Blood specimen (specimen) 02/16/2013 7:39 AM CDT Matheus Mahmood MD LAB BLOOD ORDERABLES Final Result Performing Organization Address [facility] Co de Phone Number HISTORICAL RESULTS * Serum magnesium (02/16/2013 4:07 AM CDT) Pathologist [facility] Magnesium 2.1 1.4 - 2.5 mg/dl HISTORICAL RESULTS Serum 02/16/2013 4:07 AM CDT Kristin Acevedo NP LAB BLOOD ORDERA BLES Final Result Performing Organization Address [facility] de Phone Number HISTORICAL RESULTS * (ABNORMAL) Blood cell count (CBC) (02/16/2013 4:07 AM CDT) Pathologist [facility] WBC 8.2 3.8 - 9.8 K/cumm HISTORICAL RESULTS RBC 3.09(L) 3.90 - 5.00 M/cumm HISTORICAL RESULTS Hgb 9.6(L) 12.1 - 15.1 g/dl HISTORICAL RESULTS Comment:{Hgb delta due to ap parent blood transfusion.} Hct 27.9(L) 36.1 - 44.3 % HISTORICAL RESULTS MCV 90.3 80.0 - 97.6 fl HISTORICAL RESULTS Comment:{MCV Delta due to ap parent blood transfusion.} MCH 31.1 26.7 - 33.7 pg HISTORICAL RESULTS MCHC 34.4 32.7 - 35.5 g/dl HISTORICAL RESULTS Rdw 16.9(H) 11.8 - 14.6 % HISTORICAL RESULTS Platelets 116(L) 140 - 440 K/cumm HISTORICAL RESULTS MPV 8.7 6.8 - 10.4 fl HISTORICAL RESULTS Neutrophils 95.3(H) 38.7 - 74.5 % HISTORICAL RESULTS Comment:{Result consistent w ith previously reported values.} Lymphocytes 1.5(L) 20.0 - 54.3 % HISTORICAL RESULTS Monos 3.2(L) 4.3 - 13.5 % HISTORICAL RESULTS Eosinophils 0.0 0.0 - 6.0 % HISTORICAL RESULTS Basophils 0.0 0.0 - 3.0 % HISTORICAL RESULTS Neutrophils, abs 7.8(H) 1.8 - 6.6 K/cumm HISTORICAL RESULTS Lymphocytes, abs 0.1(L) 1.2 - 3.3 K/cumm HISTORICAL RESULTS Monocytes, absolute 0.3 0.2 - 1.2 K/cumm HISTORICAL RESULTS Eosinophils, abs 0.0 0.0 - 0.5 K/cumm HISTORICAL RESULTS Basophils, abs 0.0 0.0 - 0.2 K/cumm HISTORICAL RESULTS Blood specimen (specimen) 02/16/2013 4:07 AM CDT Kristin Acevedo [employer] LAB BLOOD ORDERA BLES Final Result HISTORICAL RESULTS * (ABNORMAL) Plasma renal panel (02/16/2013 4:07 AM CDT) Pathologist [facility] Sodium 140 135 - 145 mmol/L HISTORICAL RESULTS K, pl 3.5 3.3 - 4.9 mmol/L HISTORICAL RESULTS Chloride 100 97 - 110 mmol/L HISTORICAL RESULTS CO2 25 22 - 32 mmol/L HISTORICAL RESULTS A. gap 15 0 - 16 mmol/L HISTORICAL RESULTS Glucose 106 70 - 199 mg/dl HISTORICAL RESULTS BUN 60(H) 8 - 25 mg/dl HISTORICAL RESULTS Creatinine 2.43(H) 0.60 - 1.10 mg/dl HISTORICAL RESULTS Calcium 10.0 8.6 - 10.3 mg/dl HISTORICAL RESULTS Phosphorus, pl 3.2 2.3 - 4.3 mg/dl HISTORICAL RESULTS Alb 3.4(L) 3.6 - 5.0 g/dl HISTORICAL RESULTS Plasma 02/16/2013 4:07 AM CDT Kristin Acevedo NP LAB BLOOD ORDERA BLES Final Result HISTORICAL RESULTS * Blood tacrolimus (FK-506), trough drug level (02/16/2013 4:07 AM CDT) Pathologist [facility] Tacrolimus, trough 6.1 ng/ml H ISTORICAL RESULTS Comment: Interpretive Data This test was developed using an analyte specific reagent. ??Its performance characteristics were determined by the [facility] in a manner consistent with CLIA requirements. This test has not been cleared or approved by the U.S. Food and Drug Administration. Current interpretive data was last revised on 2011. Blood specimen (specimen) 02/16/2013 4:07 AM CDT Kristin Acevedo NP LAB BLOOD ORDERA BLES Final Result Performing Organization Address [facility] de Phone Number HISTORICAL RESULTS * Blood glucose, POC (02/15/2013 8:32 PM CDT) Pathologist [facility] Glucose, POC, bld 165 70 - 199 mg/dl HISTORICAL RESULTS Blood specimen (specimen) 02/15/2013 8:32 PM CDT Matheus Mahmood MD LAB BLOOD ORDERABLES Final Result Performing Organization Address [facility] de Phone Number HISTORICAL RESULTS * Blood glucose, POC (02/15/2013 4:05 PM CDT) [facility] Glucose, POC, bld 143 70 - 199 mg/dl HISTORICAL RESULTS Blood specimen (specimen) 02/15/2013 4:05 PM CDT Matheus Mahmood MD LAB BLOOD ORDERABLES Final Result Performing Organization Address [facility] de Phone Number HISTORICAL RESULTS * Blood ABO, Rh, indirect ab screen (02/15/2013 1:48 PM CDT) [facility] ABO, Rho(D) B Positive HISTORI CHANO RESULTS Emerita, indirect Negative HISTORICAL RESULTS Blood specimen (specimen) 02/15/2013 1:48 PM CDT Result [facility] Kristin Acevedo NP LAB BLOOD ORDERA BLES Final Result Performing Organization Address [facility] Co de Phone Number HISTORICAL RESULTS * (ABNORMAL) Blood cell count [CBC] express (02/15/2013 1:45 PM CDT) Pathologist [facility] WBC 8.2 3.8 - 9.8 K/cumm HISTORICAL RESULTS RBC 2.01(L) 3.90 - 5.00 M/cumm HISTORICAL RESULTS Hgb 6.5(C) 12.1 - 15.1 g/dl HISTORICAL RESULTS Comment: Critical result called to RILEY VIRGEN (RN) on 02/15/2013 14:12:49 CDT by [facility]. Hct 19.2(L) 36.1 - 44.3 % HISTORICAL RESULTS MCV 95.3 80.0 - 97.6 fl HISTORICAL RESULTS MCH 32.4 26.7 - 33.7 pg HISTORICAL RESULTS MCHC 34.0 32.7 - 35.5 g/dl HISTORICAL RESULTS Rdw 16.3(H) 11.8 - 14.6 % HISTORICAL RESULTS Platelets 138(L) 140 - 440 K/cumm HISTORICAL RESULTS MPV 8.3 6.8 - 10.4 fl HISTORICAL RESULTS Blood specimen (specimen) 02/15/2013 1:45 PM CDT Matheus Mahmood MD LAB BLOOD ORDERABLES Final Result Performing Organization Address [facility] Co de Phone Number HISTORICAL RESULTS * Central Line > 5 Years Left (02/15/2013 12:09 PM CDT) Anatomical Region Laterality Modality Body N/A X-Ray Angiograph y 02/15/2013 12:0 9 PM CDT Narrative 02/16/2013 11:30 AM CDT EMY KELLEY M.D. KELY RAPP M.D. FINAL REPORT The radiology attending physician has personally reviewed this study, and has reviewed and/or edited this written report and agrees with it. ACC# ??Date Time ??Exam [id number] Feb 15, 2013 12:09:[address]>7y/o [id number] Feb 15, 2013 12:09:00 60251 Fluoro Saul Accs R [id number] Feb 15, 2013 12:09:00 [address] [facility] Acc R EXAMINATION: ?NONTUNNELED CENTRAL VENOUS CATHETER PLACEMENT HISTORY: 76-year-old woman with end-stage renal disease status post right lower quadrant kidney transplant on 02/10/2013, here for Sanjay placement for IV antibiotics and general access. ATTENDING PRESENCE: Dr. Kelley, the attending radiologist, was present from the beginning to the end of the procedure. SEDATION: The patient did not require conscious sedation for the procedure. TECHNIQUE: The risks, benefits and alternatives were discussed and informed consent was obtained. ??Prior to beginning the procedure, [place] Protocol was used to confirm the patient's identity and planned procedure. ??Fluoroscopy time has been recorded in the electronic medical record. Maximum sterile barriers including cap, mask, hand hygiene, sterile gloves, sterile gown, large sterile drape and 2% chlorhexidine for cutaneous antisepsis were used. SITE: ??The skin over the right internal jugular vein was sterilely prepped, draped and infiltrated with 1% buffered lidocaine. Prior to the procedure, the target vessel was evaluated by ultrasound, an image of the patent vessel recorded, and this image placed in the patient's chart. ??After sterile prep, this vessel was accessed using realtime ultrasound guidance. A guidewire and catheter were then passed centrally using fluoroscopic guidance. ?? The intravascular length from the access site to the right atrium was assessed. After dilating the tract, a dual lumen Sanjay catheter ??was inserted over the guidewire. The catheter was flushed with 100U/ml ??heparin and secured in place. ??A sterile dressing was applied. ESTIMATED BLOOD LOSS: less than 30 milliliters. DISCHARGED TO: Recovery and then to inpatient unit CONDITION: Stable. FINDINGS: ??The final fluoroscopic image demonstrates the catheter with its tip at the cavoatrial junction. ??No complications are seen. ?? IMPRESSION: Successful nontunneled dual lumen Sanjay catheter placement. PLAN: The catheter is ready for immediate use. ??When treatment is completed, this catheter can be removed at the bedside according to standard hospital protocol. ?? Requested By: KRISTIN ACEVEDO Dictated By: ?? KELY RAPP M.D. ??on Feb 15 2013 ??2:44P This document has been electronically signed by: EMY KELLEY M.D. on Feb 16 2013 11:30A Procedure Note Provider, MD Diego - 10/30/2016 EMY KELLEY M.D. KELY RAPP M.D. FINAL REPORT The radiology attending physician has personally reviewed this study, and has reviewed and/or edited this written report and agrees with it. ACC# Date Time Exam [id number] Feb 15, 2013 12:09:[address]>7y/o [id number] Feb 15, 2013 12:09:00 18526 Fluoro Saul Accs R [id number] Feb 15, 2013 12:09:00 32009 [facility] Saul Acc R EXAMINATION: NONTUNNELED CENTRAL VENOUS CATHETER PLACEMENT HISTORY: 76-year-old woman with end-stage renal disease status post right lower quadrant kidney transplant on 02/10/2013, here for Sanjay placement for IV antibiotics and general access. ATTENDING PRESENCE: Dr. Kelley, the attending radiologist, was present from the beginning to the end of the procedure. SEDATION: The patient did not require conscious sedation for the procedure. TECHNIQUE: The risks, benefits and alternatives were discussed and informed consent was obtained. Prior to beginning the procedure, [place] Protocol was used to confirm the patient's identity and planned procedure. Fluoroscopy time has been recorded in the electronic medical record. Maximum sterile barriers including cap, mask, hand hygiene, sterile gloves, sterile gown, large sterile drape and 2% chlorhexidine for cutaneous antisepsis were used. SITE: The skin over the right internal jugular vein was sterilely prepped, draped and infiltrated with 1% buffered lidocaine. Prior to the procedure, the target vessel was evaluated by ultrasound, an image of the patent vessel recorded, and this image placed in the patient's chart. After sterile prep, this vessel was accessed using realtime ultrasound guidance. A guidewire and catheter were then passed centrally using fluoroscopic guidance. The intravascular length from the access site to the right atrium was assessed. After dilating the tract, a dual lumen Sanjay catheter was inserted over the guidewire. The catheter was flushed with 100U/ml heparin and secured in place. A sterile dressing was applied. ESTIMATED BLOOD LOSS: less than 30 milliliters. DISCHARGED TO: Recovery and then to inpatient unit CONDITION: Stable. FINDINGS: The final fluoroscopic image demonstrates the catheter with its tip at the cavoatrial junction. No complications are seen. IMPRESSION: Successful nontunneled dual lumen Sanjay catheter placement. PLAN: The catheter is ready for immediate use. When treatment is completed, this catheter can be removed at the bedside according to standard hospital protocol. Requested By: KRISTIN ACEVEDO ANP Dictated By: KELY RAPP M.D. on Feb 15 2013 2:44P This document has been electronically signed by: EMY KELLEY M.D. on Feb 16 2013 11:30A us Historical Provider MD JACKSON IR PROCEDURES Final R esult * VENOUS ACCESS (02/15/2013 12:09 PM CDT) Anatomical Region Laterality Modality N/A Radiographic Tomeka ging 02/15/2013 12:0 9 PM CDT Narrative 02/16/2013 11:30 AM CDT EMY KELLEY M.D. KELY RAPP M.D. FINAL REPORT The radiology attending physician has personally reviewed this study, and has reviewed and/or edited this written report and agrees with it. ACC# ??Date Time ??Exam [id number] Feb 15, 2013 12:09:[address]>7y/o [id number] Feb 15, 2013 12:09:00 46870 Fluoro Saul Accs R [id number] Feb 15, 2013 12:09:00 58530 [facility] Saul Acc R EXAMINATION: ?NONTUNNELED CENTRAL VENOUS CATHETER PLACEMENT HISTORY: 76-year-old woman with end-stage renal disease status post right lower quadrant kidney transplant on 02/10/2013, here for Sanjay placement for IV antibiotics and general access. ATTENDING PRESENCE: Dr. Kelley, the attending radiologist, was present from the beginning to the end of the procedure. SEDATION: The patient did not require conscious sedation for the procedure. TECHNIQUE: The risks, benefits and alternatives were discussed and informed consent was obtained. ??Prior to beginning the procedure, [place] Protocol was used to confirm the patient's identity and planned procedure. ??Fluoroscopy time has been recorded in the electronic medical record. Maximum sterile barriers including cap, mask, hand hygiene, sterile gloves, sterile gown, large sterile drape and 2% chlorhexidine for cutaneous antisepsis were used. SITE: ??The skin over the right internal jugular vein was sterilely prepped, draped and infiltrated with 1% buffered lidocaine. Prior to the procedure, the target vessel was evaluated by ultrasound, an image of the patent vessel recorded, and this image placed in the patient's chart. ??After sterile prep, this vessel was accessed using realtime ultrasound guidance. A guidewire and catheter were then passed centrally using fluoroscopic guidance. ?? The intravascular length from the access site to the right atrium was assessed. After dilating the tract, a dual lumen Sanjay catheter ??was inserted over the guidewire. The catheter was flushed with 100U/ml ??heparin and secured in place. ??A sterile dressing was applied. ESTIMATED BLOOD LOSS: less than 30 milliliters. DISCHARGED TO: Recovery and then to inpatient unit CONDITION: Stable. FINDINGS: ??The final fluoroscopic image demonstrates the catheter with its tip at the cavoatrial junction. ??No complications are seen. ?? IMPRESSION: Successful nontunneled dual lumen Sanjay catheter placement. PLAN: The catheter is ready for immediate use. ??When treatment is completed, this catheter can be removed at the bedside according to standard hospital protocol. ?? Requested By: KRISTIN ACEVEDO Dictated By: ?? KELY RAPP M.D. ??on Feb 15 2013 ??2:44P This document has been electronically signed by: EMY KELLEY M.D. on Feb 16 2013 11:30A Procedure Note Provider, MD Diego - 10/30/2016 EMY KELLEY M.D. KELY RAPP M.D. FINAL REPORT The radiology attending physician has personally reviewed this study, and has reviewed and/or edited this written report and agrees with it. ACC# Date Time Exam [id number] Feb 15, 2013 12:09:[address]>7y/o [id number] Feb 15, 2013 12:09:00 12073 Fluoro Saul Accs R [id number] Feb 15, 2013 12:09:00 64907 [facility]guide Saul Acc R EXAMINATION: NONTUNNELED CENTRAL VENOUS CATHETER PLACEMENT HISTORY: 76-year-old woman with end-stage renal disease status post right lower quadrant kidney transplant on 02/10/2013, here for Sanjay placement for IV antibiotics and general access. ATTENDING PRESENCE: Dr. Kelley, the attending radiologist, was present from the beginning to the end of the procedure. SEDATION: The patient did not require conscious sedation for the procedure. TECHNIQUE: The risks, benefits and alternatives were discussed and informed consent was obtained. Prior to beginning the procedure, [place] Protocol was used to confirm the patient's identity and planned procedure. Fluoroscopy time has been recorded in the electronic medical record. Maximum sterile barriers including cap, mask, hand hygiene, sterile gloves, sterile gown, large sterile drape and 2% chlorhexidine for cutaneous antisepsis were used. SITE: The skin over the right internal jugular vein was sterilely prepped, draped and infiltrated with 1% buffered lidocaine. Prior to the procedure, the target vessel was evaluated by ultrasound, an image of the patent vessel recorded, and this image placed in the patient's chart. After sterile prep, this vessel was accessed using realtime ultrasound guidance. A guidewire and catheter were then passed centrally using fluoroscopic guidance. The intravascular length from the access site to the right atrium was assessed. After dilating the tract, a dual lumen Sanjay catheter was inserted over the guidewire. The catheter was flushed with 100U/ml heparin and secured in place. A sterile dressing was applied. ESTIMATED BLOOD LOSS: less than 30 milliliters. DISCHARGED TO: Recovery and then to inpatient unit CONDITION: Stable. FINDINGS: The final fluoroscopic image demonstrates the catheter with its tip at the cavoatrial junction. No complications are seen. IMPRESSION: Successful nontunneled dual lumen Sanjay catheter placement. PLAN: The catheter is ready for immediate use. When treatment is completed, this catheter can be removed at the bedside according to standard hospital protocol. Requested By: KRISTIN ACEVEDO ANP Dictated By: KELY RAPP M.D. on Feb 15 2013 2:44P This document has been electronically signed by: EMY KELLEY M.D. on Feb 16 2013 11:30A us Historical Provider MD [facility] XR PROCEDURES Final R esult * US Guided Vascular Access (02/15/2013 12:09 PM CDT) Anatomical Region Laterality Modality N/A Ultrasound 02/15/2013 12:0 9 PM CDT Narrative 02/16/2013 11:30 AM CDT EMY KELLEY M.D. KELY RAPP M.D. FINAL REPORT The radiology attending physician has personally reviewed this study, and has reviewed and/or edited this written report and agrees with it. ACC# ??Date Time ??Exam [id number] Feb 15, 2013 12:09:[id number]>7y/o [id number] Feb 15, 2013 12:09:00 10624 Fluoro Saul Accs R [id number] Feb 15, 2013 12:09:00 57401 USguide Saul Acc R EXAMINATION: ?NONTUNNELED CENTRAL VENOUS CATHETER PLACEMENT HISTORY: 76-year-old woman with end-stage renal disease status post right lower quadrant kidney transplant on 02/10/2013, here for Sanjay placement for IV antibiotics and general access. ATTENDING PRESENCE: Dr. Kelley, the attending radiologist, was present from the beginning to the end of the procedure. SEDATION: The patient did not require conscious sedation for the procedure. TECHNIQUE: The risks, benefits and alternatives were discussed and informed consent was obtained. ??Prior to beginning the procedure, [place] Protocol was used to confirm the patient's identity and planned procedure. ??Fluoroscopy time has been recorded in the electronic medical record. Maximum sterile barriers including cap, mask, hand hygiene, sterile gloves, sterile gown, large sterile drape and 2% chlorhexidine for cutaneous antisepsis were used. SITE: ??The skin over the right internal jugular vein was sterilely prepped, draped and infiltrated with 1% buffered lidocaine. Prior to the procedure, the target vessel was evaluated by ultrasound, an image of the patent vessel recorded, and this image placed in the patient's chart. ??After sterile prep, this vessel was accessed using realtime ultrasound guidance. A guidewire and catheter were then passed centrally using fluoroscopic guidance. ?? The intravascular length from the access site to the right atrium was assessed. After dilating the tract, a dual lumen Sanjay catheter ??was inserted over the guidewire. The catheter was flushed with 100U/ml ??heparin and secured in place. ??A sterile dressing was applied. ESTIMATED BLOOD LOSS: less than 30 milliliters. DISCHARGED TO: Recovery and then to inpatient unit CONDITION: Stable. FINDINGS: ??The final fluoroscopic image demonstrates the catheter with its tip at the cavoatrial junction. ??No complications are seen. ?? IMPRESSION: Successful nontunneled dual lumen Sanjay catheter placement. PLAN: The catheter is ready for immediate use. ??When treatment is completed, this catheter can be removed at the bedside according to standard hospital protocol. ?? Requested By: KRISTIN ACEVEDO ANP Dictated By: ?? KELY RAPP M.D. ??on Feb 15 2013 ??2:44P This document has been electronically signed by: EMY KELLEY M.D. on Feb 16 2013 11:30A Procedure Note Provider, MD Diego - 10/30/2016 EMY KELLEY M.D. KELY RAPP M.D. FINAL REPORT The radiology attending physician has personally reviewed this study, and has reviewed and/or edited this written report and agrees with it. ACC# Date Time Exam [id number] Feb 15, 2013 12:09:[address]>7y/o [id number] Feb 15, 2013 12:09:00 46061 Fluoro Saul Accs R [id number] Feb 15, 2013 12:09:00 22564 USguide Saul Acc R EXAMINATION: NONTUNNELED CENTRAL VENOUS CATHETER PLACEMENT HISTORY: 76-year-old woman with end-stage renal disease status post right lower quadrant kidney transplant on 02/10/2013, here for Sanjay placement for IV antibiotics and general access. ATTENDING PRESENCE: Dr. Kelley, the attending radiologist, was present from the beginning to the end of the procedure. SEDATION: The patient did not require conscious sedation for the procedure. TECHNIQUE: The risks, benefits and alternatives were discussed and informed consent was obtained. Prior to beginning the procedure, [place] Protocol was used to confirm the patient's identity and planned procedure. Fluoroscopy time has been recorded in the electronic medical record. Maximum sterile barriers including cap, mask, hand hygiene, sterile gloves, sterile gown, large sterile drape and 2% chlorhexidine for cutaneous antisepsis were used. SITE: The skin over the right internal jugular vein was sterilely prepped, draped and infiltrated with 1% buffered lidocaine. Prior to the procedure, the target vessel was evaluated by ultrasound, an image of the patent vessel recorded, and this image placed in the patient's chart. After sterile prep, this vessel was accessed using realtime ultrasound guidance. A guidewire and catheter were then passed centrally using fluoroscopic guidance. The intravascular length from the access site to the right atrium was assessed. After dilating the tract, a dual lumen Sanjay catheter was inserted over the guidewire. The catheter was flushed with 100U/ml heparin and secured in place. A sterile dressing was applied. ESTIMATED BLOOD LOSS: less than 30 milliliters. DISCHARGED TO: Recovery and then to inpatient unit CONDITION: Stable. FINDINGS: The final fluoroscopic image demonstrates the catheter with its tip at the cavoatrial junction. No complications are seen. IMPRESSION: Successful nontunneled dual lumen Sanjay catheter placement. PLAN: The catheter is ready for immediate use. When treatment is completed, this catheter can be removed at the bedside according to standard hospital protocol. Requested By: KRISTIN ACEVEDO ANP Dictated By: KELY RAPP M.D. on Feb 15 2013 2:44P This document has been electronically signed by: EMY KELLEY M.D. on Feb 16 2013 11:30A Historical Provider [facility] PROCEDURES Final R esult * Blood glucose, POC (02/15/2013 6:37 AM CDT) [facility] Glucose, POC, bld 111 70 - 199 mg/dl HISTORICAL RESULTS Blood specimen (specimen) 02/15/2013 6:37 AM CDT Matheus Mahmood MD LAB BLOOD ORDERABLES Final Result HISTORICAL RESULTS * (ABNORMAL) Plasma basic metabolic panel (02/15/2013 5:23 AM CDT) [facility] Sodium 139 135 - 145 mmol/L HISTORICAL RESULTS K, pl 4.2 3.3 - 4.9 mmol/L HISTORICAL RESULTS Chloride 104 97 - 110 mmol/L HISTORICAL RESULTS CO2 20(L) 22 - 32 mmol/L HISTORICAL RESULTS A. gap 15 0 - 16 mmol/L HISTORICAL RESULTS Glucose 96 70 - 199 mg/dl HISTORICAL RESULTS BUN 59(H) 8 - 25 mg/dl HISTORICAL RESULTS Creatinine 3.02(H) 0.60 - 1.10 mg/dl HISTORICAL RESULTS Calcium 9.9 8.6 - 10.3 mg/dl HISTORICAL RESULTS Plasma 02/15/2013 5:23 AM CDT Kristin Simkyra Acevedo [employer] LAB BLOOD ORDERA BLES Final Result Performing Organization Address [facility] de Phone Number HISTORICAL RESULTS * Plasma phosphorus (02/15/2013 5:23 AM CDT) Phosphorus, pl 3.7 2.3 - 4.3 mg/dl HISTORICAL RESULTS Plasma 02/15/2013 5:23 AM CDT Kristin Simkyra Acevedo [employer] LAB BLOOD ORDERA BLES Final Result Performing Organization Address [facility] de Phone Number HISTORICAL RESULTS * Serum magnesium (02/15/2013 5:23 AM CDT) Pathologist [facility] Magnesium 2.2 1.4 - 2.5 mg/dl HISTORICAL RESULTS Serum 02/15/2013 5:23 AM CDT Kristin Simkyra Acevedo NP LAB BLOOD ORDERA BLES Final Result Performing Organization Address [facility] de Phone Number HISTORICAL RESULTS * (ABNORMAL) Blood cell count (CBC) (02/15/2013 5:23 AM CDT) WBC 7.2 3.8 - 9.8 K/cumm HISTORICAL RESULTS RBC 2.25(L) 3.90 - 5.00 M/cumm HISTORICAL RESULTS Hgb 7.0(L) 12.1 - 15.1 g/dl HISTORICAL RESULTS Hct 21.8(L) 36.1 - 44.3 % HISTORICAL RESULTS MCV 96.8 80.0 - 97.6 fl HISTORICAL RESULTS MCH 31.2 26.7 - 33.7 pg HISTORICAL RESULTS MCHC 32.3(L) 32.7 - 35.5 g/dl HISTORICAL RESULTS Rdw 16.7(H) 11.8 - 14.6 % HISTORICAL RESULTS Platelets 146 140 - 440 K/cumm HISTORICAL RESULTS MPV 8.5 6.8 - 10.4 fl HISTORICAL RESULTS Neutrophils 95.6(H) 38.7 - 74.5 % HISTORICAL RESULTS Comment:{Verified by periphe ral smear.} Lymphocytes 1.2(L) 20.0 - 54.3 % HISTORICAL RESULTS Monos 3.2(L) 4.3 - 13.5 % HISTORICAL RESULTS Eosinophils 0.0 0.0 - 6.0 % HISTORICAL RESULTS Basophils 0.0 0.0 - 3.0 % HISTORICAL RESULTS Neutrophils, abs 6.9(H) 1.8 - 6.6 K/cumm HISTORICAL RESULTS Lymphocytes, abs 0.1(L) 1.2 - 3.3 K/cumm HISTORICAL RESULTS Monocytes, absolute 0.2 0.2 - 1.2 K/cumm HISTORICAL RESULTS Eosinophils, abs 0.0 0.0 - 0.5 K/cumm HISTORICAL RESULTS Basophils, abs 0.0 0.0 - 0.2 K/cumm HISTORICAL RESULTS Blood specimen (specimen) 02/15/2013 5:23 AM CDT Kristin Acevedo LAB BLOOD ORDERA BLES Final Result HISTORICAL RESULTS * Blood cell morphologic exam (02/15/2013 5:23 AM CDT) Morphology scrn Original results obtained required verification by alternate method(s). Refer to CBC and/or observation sections for detailed results HISTORICAL RESULTS Blood specimen (specimen) 02/15/2013 5:23 AM CDT Kristin Acevedo LAB BLOOD ORDERA BLES Final Result HISTORICAL RESULTS * Blood tacrolimus (FK-506), trough drug level (02/15/2013 5:23 AM CDT) Tacrolimus, trough 6.0 ng/ml H ISTORICAL RESULTS Comment: Interpretive Data This test was developed using an analyte specific reagent. ??Its performance characteristics were determined by the [facility] in a manner consistent with CLIA requirements. This test has not been cleared or approved by the U.S. Food and Drug Administration. Current interpretive data was last revised on 2011. Blood specimen (specimen) 02/15/2013 5:23 AM CDT Kristin Acevedo NP LAB BLOOD ORDERA BLES Final Result Performing Organization Address [facility] de Phone Number HISTORICAL RESULTS * Blood glucose, POC (02/14/2013 9:07 PM CDT) Glucose, POC, bld 171 70 - 199 mg/dl HISTORICAL RESULTS Blood specimen (specimen) 02/14/2013 9:07 PM CDT Matheus Mahmood MD LAB BLOOD ORDERABLES Final Result Performing Organization Address [facility] de Phone Number HISTORICAL RESULTS * Blood glucose, POC (02/14/2013 6:46 PM CDT) Glucose, POC, bld 158 70 - 199 mg/dl HISTORICAL RESULTS Blood specimen (specimen) 02/14/2013 6:46 PM CDT Matheus Mahmood MD LAB BLOOD ORDERABLES Final Result Performing Organization Address [facility] de Phone Number HISTORICAL RESULTS * CHEST RADIOGRAPHY, FRONTAL (AP), LATERAL (02/14/2013 12:40 PM CDT) Anatomical Region Laterality Modality N/A Radiographic Tomeka ging 02/14/2013 12:4 0 PM CDT Narrative 02/14/2013 3:50 PM CDT LISANDRA UDRAN M.D. OCTAVIA MENDOSA M.D. FINAL REPORT The radiology attending physician has personally reviewed this study, and has reviewed and/or edited this written report and agrees with it. ACC# ??Date Time ??Exam [id number] Feb 14, 2013 12:40:00 [id number] Chest 2 views Front&Lat EXAMINATION: ?Chest 1 view COMPARISON: ??02/14/2013 at 0254. IMPRESSION: ?There is worsening patchy airspace opacities that are more confluent in the bienvenido and the right upper lung, likely representing pulmonary edema with or without underlying infection. Recommend following to resolution. A moderate left pleural effusion is slightly increased in size. No pneumothorax. Heart size is enlarged, but unchanged. Requested By: KRISTIN ACEVEDO ANP Dictated By: ?? OCTAVIA MENDOSA M.D. ??on Feb 14 2013 ??3:09P This document has been electronically signed by: LISANDRA DURAN M.D. on Feb 14 2013 ??3:50P Procedure Note Provider, Diego, - 10/30/2016 Areli HART M.D. FINAL REPORT The radiology attending physician has personally reviewed this study, and has reviewed and/or edited this written report and agrees with it. ACC# Date Time Exam [id number] Feb 14, 2013 12:40:00 18798 Chest 2 views Front&Lat EXAMINATION: Chest 1 view COMPARISON: 02/14/2013 at 0254. IMPRESSION: There is worsening patchy airspace opacities that are more confluent in the bienvenido and the right upper lung, likely representing pulmonary edema with or without underlying infection. Recommend following to resolution. A moderate left pleural effusion is slightly increased in size. No pneumothorax. Heart size is enlarged, but unchanged. Requested By: KRISTIN ACEVEDO ANP Dictated By: OCTAVIA MENDOSA M.D. on Feb 14 2013 3:09P This document has been electronically signed by: LISANDRA DURAN M.D. on Feb 14 2013 3:50P us Historical Provider IMG XR PROCEDURES Final R esult * Blood glucose, POC (02/14/2013 11:34 AM CDT) [facility] Glucose, POC, bld 84 70 - 199 mg/dl HISTORICAL RESULTS Blood specimen (specimen) 02/14/2013 11:34 AM CDT Matheus Mahmood MD LAB BLOOD ORDERABLES Final Result Performing Organization Address [facility] de Phone Number HISTORICAL RESULTS * (ABNORMAL) Blood gas, arterial (02/14/2013 9:56 AM CDT) [facility] Ph, art 7.39 7.35 - 7.45 HISTORICAL RESULTS PCO2 30(L) 35 - 45 mm Hg HISTORICAL RESULTS PO2, art 211(H) 80 - 105 mm Hg HISTORICAL RESULTS CO2, calc, art 19(L) 21 - 30 mmol/L HISTORICAL RESULTS A-a gradient Not Applicable mm Hg HI STORICAL RESULTS O2, inspired, %, art Not Applicable % HISTORICAL RESULTS Oxygen (O2), inspired fraction (FiO2) 4.0 liters HISTORICAL RESULTS Arterial blood 02/14/2013 9: 56 AM CDT Kristin Acevedo NP LAB BLOOD ORDERA BLES Final Result Performing Organization Address [facility] de Phone Number HISTORICAL RESULTS * Blood glucose, POC (02/14/2013 6:26 AM CDT) [facility] Glucose, POC, bld 113 70 - 199 mg/dl HISTORICAL RESULTS Gluc, com 1, bld RN Notified HISTORICAL RESULTS Blood specimen (specimen) 02/14/2013 6:26 AM CDT Matheus Mahmood MD LAB BLOOD ORDERABLES Final Result Performing Organization Address [facility] de Phone Number HISTORICAL RESULTS * Serum troponin I (02/14/2013 4:35 AM CDT) [facility] Troponin I 0.10 0.00 - 0.24 ng/ml HISTORICAL RESULTS Comment: [...] data was last revised on 2007. Serum 02/14/2013 4:35 AM CDT Historical Provider LAB BLOOD ORDERABLES Paty l Result HISTORICAL RESULTS * Plasma partial thromboplastin time (PTT) (02/14/2013 3:52 AM CDT) APTT 27.0 25.0 - 37.0 seconds HISTORICAL RESULTS Comment: Interpretive Data Therapeutic heparin range:60.0 - 94.0 sec based on correlation with therapeutic heparin activity range of 0.3 -0.7 Units/mL. Current interpretive data was last revised on 2011. Plasma 02/14/2013 3:52 AM CDT Charly Goncalves MD LAB BLOOD ORDERABLES Fi nal Result Performing Organization Address [facility] Co de Phone Number HISTORICAL RESULTS * (ABNORMAL) Plasma basic metabolic panel (02/14/2013 3:52 AM CDT) Sodium 134(L) 135 - 145 mmol/L HISTORICAL RESULTS K, pl 4.5 3.3 - 4.9 mmol/L HISTORICAL RESULTS Chloride 105 97 - 110 mmol/L HISTORICAL RESULTS CO2 16(L) 22 - 32 mmol/L HISTORICAL RESULTS A. gap 13 0 - 16 mmol/L HISTORICAL RESULTS Glucose 92 70 - 199 mg/dl HISTORICAL RESULTS BUN 53(H) 8 - 25 mg/dl HISTORICAL RESULTS Creatinine 3.38(H) 0.60 - 1.10 mg/dl HISTORICAL RESULTS Calcium 9.2 8.6 - 10.3 mg/dl HISTORICAL RESULTS Plasma 02/14/2013 3:52 AM CDT Charly Goncalves MD LAB BLOOD ORDERABLES Fi nal Result HISTORICAL RESULTS * (ABNORMAL) Plasma phosphorus (02/14/2013 3:52 AM CDT) Phosphorus, pl 5.2(H) 2.3 - 4.3 mg/dl HISTORICAL RESULTS Plasma 02/14/2013 3:52 AM CDT Charly Goncalves MD LAB BLOOD ORDERABLES Fi nal Result Performing Organization Address [facility] Co de Phone Number HISTORICAL RESULTS * Plasma prothrombin time (PT) (02/14/2013 3:52 AM CDT) Pathologist [facility] Prothrombin time (PT) 10.3 9.0 - 12.0 seconds HISTORICAL RESULTS INR 0.98 0.90 - 1.20 HISTORIC AL RESULTS Comment: Interpretive Data Inpatient therapeutic ranges* Atrial fibrillation ?2.0-3.0 INR Venous thrombo-embolism ?2.0-3.0 INR Bioprosthetic heart valve ?* Mechanical heart valve, bileaflet or tilting disk,aortic position ? 2.0-3.0 INR All other,or bileaflet or tilting disk, in mitral position ? 2.5-3.5 INR *See the pharmacy resource directory (PHRED) for an updated copy of the Tool Book at [email or web address] Current Interpretive Data was last revised 2011. Plasma 02/14/2013 3:52 AM CDT Charly Goncalves MD LAB BLOOD ORDERABLES Fi nal Result HISTORICAL RESULTS * Serum magnesium (02/14/2013 3:52 AM CDT) Magnesium 2.2 1.4 - 2.5 mg/dl HISTORICAL RESULTS Serum 02/14/2013 3:52 AM CDT Charly Goncalves MD LAB BLOOD ORDERABLES [facility] Result Performing Organization Address [facility] Co de Phone Number HISTORICAL RESULTS * (ABNORMAL) Blood cell count (CBC) (02/14/2013 3:52 AM CDT) WBC 7.1 3.8 - 9.8 K/cumm HISTORICAL RESULTS RBC 2.51(L) 3.90 - 5.00 M/cumm HISTORICAL RESULTS Hgb 8.0(L) 12.1 - 15.1 g/dl HISTORICAL RESULTS Hct 23.9(L) 36.1 - 44.3 % HISTORICAL RESULTS MCV 95.3 80.0 - 97.6 fl HISTORICAL RESULTS MCH 32.0 26.7 - 33.7 pg HISTORICAL RESULTS MCHC 33.6 32.7 - 35.5 g/dl HISTORICAL RESULTS Rdw 16.6(H) 11.8 - 14.6 % HISTORICAL RESULTS Platelets 176 140 - 440 K/cumm HISTORICAL RESULTS MPV 8.4 6.8 - 10.4 fl HISTORICAL RESULTS Neutrophils 94.1(H) 38.7 - 74.5 % HISTORICAL RESULTS Lymphocytes 1.0(L) 20.0 - 54.3 % HISTORICAL RESULTS Monos 4.9 4.3 - 13.5 % HISTORICAL RESULTS Eosinophils 0.0 0.0 - 6.0 % HISTORICAL RESULTS Basophils 0.0 0.0 - 3.0 % HISTORICAL RESULTS Neutrophils, abs 6.7(H) 1.8 - 6.6 K/cumm HISTORICAL RESULTS Lymphocytes, abs 0.1(L) 1.2 - 3.3 K/cumm HISTORICAL RESULTS Monocytes, absolute 0.3 0.2 - 1.2 K/cumm HISTORICAL RESULTS Eosinophils, abs 0.0 0.0 - 0.5 K/cumm HISTORICAL RESULTS Basophils, abs 0.0 0.0 - 0.2 K/cumm HISTORICAL RESULTS Blood specimen (specimen) 02/14/2013 3:52 AM CDT Charly Goncalves MD LAB BLOOD ORDERABLES Fi nal Result Performing Organization Address [facility] de Phone Number HISTORICAL RESULTS * Blood tacrolimus (FK-506), trough drug level (02/14/2013 3:52 AM CDT) Tacrolimus, trough 7.7 ng/ml H ISTORICAL RESULTS Comment: Interpretive Data This test was developed using an analyte specific reagent. ??Its performance characteristics were determined by the [facility] in a manner consistent with CLIA requirements. This test has not been cleared or approved by the U.S. Food and Drug Administration. Current interpretive data was last revised on 2011. Blood specimen (specimen) 02/14/2013 3:52 AM CDT Charly Goncalves MD LAB BLOOD ORDERABLES Fi nal Result Performing Organization Address [facility] de Phone Number HISTORICAL RESULTS * XR Chest 1 View (02/14/2013 2:52 AM CDT) Anatomical Region Laterality Modality Body, Chest N/A Radiographic Tomeka ging 02/14/2013 2:52 AM CDT Narrative 02/14/2013 10:19 AM CDT LISANDRA DURAN M.D. ATUL KENDRICK M.D. FINAL REPORT The radiology attending physician has personally reviewed this study, and has reviewed and/or edited this written report and agrees with it. ACC# ??Date Time ??Exam [id number] Feb 14, 2013 02:52:00 11111 Chest 1 view Frontal EXAMINATION: ?? Chest 1 view IMPRESSION: ?? Portable AP radiograph compared 02/09/2013. There has been interval development of a small right pleural effusion and small to moderate left pleural effusion with associated atelectasis. New right upper lobe infiltrates and increased left upper lobe infiltrates are concerning for multifocal pneumonia including possible aspiration, less likely asymmetric edema. Recommend follow to resolution. No pneumothorax. Mild cardiomegaly is stable. Mediastinal silhouette is normal. Requested By: JUANJOSE GALLARDO M.D. Dictated By: ?? ATUL KENDRICK M.D. ??on Feb 14 2013 ??8:41A This document has been electronically signed by: LISANDRA DURAN M.D. on Feb 14 2013 10:19A Procedure Note Provider, MD Diego - 10/30/2016 LISANDRA DURAN M.D. ATUL KENDRICK M.D. FINAL REPORT The radiology attending physician has personally reviewed this study, and has reviewed and/or edited this written report and agrees with it. ACC# Date Time Exam [id number] Feb 14, 2013 02:52:00 [id number] Chest 1 view Frontal EXAMINATION: Chest 1 view IMPRESSION: Portable AP radiograph compared 02/09/2013. There has been interval development of a small right pleural effusion and small to moderate left pleural effusion with associated atelectasis. New right upper lobe infiltrates and increased left upper lobe infiltrates are concerning for multifocal pneumonia including possible aspiration, less likely asymmetric edema. Recommend follow to resolution. No pneumothorax. Mild cardiomegaly is stable. Mediastinal silhouette is normal. Requested By: JUANJOSE GALLARDO M.D. Dictated By: ATUL KENDRICK M.D. on Feb 14 2013 8:41A This document has been electronically signed by: LISANDRA DURAN M.D. on Feb 14 2013 10:19A Result [facility] Historical Provider IMG XR PROCEDURES Final R esult * ELECTROCARDIOGRAPHY (ECG) (02/14/2013) Narrative 02/14/2013 Ordered by an unspecified provider. Historical Provider ECG ORDERABLES Final Res ult * ELECTROCARDIOGRAPHY (ECG) (02/14/2013) Narrative 02/14/2013 Ordered by an unspecified provider. Historical Provider ECG ORDERABLES Final Res ult * Blood glucose, POC (02/13/2013 8:26 PM CDT) Glucose, POC, bld 140 70 - 199 mg/dl HISTORICAL RESULTS Gluc, com 1, bld RN Notified HISTORICAL RESULTS Blood specimen (specimen) 02/13/2013 8:26 PM CDT Result [facility] Matheus Mahmood MD LAB BLOOD ORDERABLES Final Result Performing Organization Address [facility] Phone Number HISTORICAL RESULTS * Blood glucose, POC (02/13/2013 5:00 PM CDT) Glucose, POC, bld 127 70 - 199 mg/dl HISTORICAL RESULTS Blood specimen (specimen) 02/13/2013 5:00 PM CDT Result [facility] [place] Matheus Mahmood MD LAB BLOOD ORDERABLES Final Result Performing Organization Address [facility] Phone Number HISTORICAL RESULTS * Blood glucose, POC (02/13/2013 11:33 AM CDT) Glucose, POC, bld 103 70 - 199 mg/dl HISTORICAL RESULTS Blood specimen (specimen) 02/13/2013 11:33 AM CDT Result [facility] Matheus Mahmood MD LAB BLOOD ORDERABLES Final Result Performing Organization Address [facility] Phone Number HISTORICAL RESULTS * Blood glucose, POC (02/13/2013 7:20 AM CDT) Glucose, POC, bld 107 70 - 199 mg/dl HISTORICAL RESULTS Blood specimen (specimen) 02/13/2013 7:20 AM CDT us Matheus Mahmood MD LAB BLOOD ORDERABLES Final Result Performing Organization Address [facility] de Phone Number HISTORICAL RESULTS * Plasma partial thromboplastin time (PTT) (02/13/2013 4:12 AM CDT) APTT 27.7 25.0 - 37.0 seconds HISTORICAL RESULTS Comment: Interpretive Data Therapeutic heparin range:60.0 - 94.0 sec based on correlation with therapeutic heparin activity range of 0.3 -0.7 Units/mL. Current interpretive data was last revised on 2011. Plasma 02/13/2013 4:12 AM CDT Bonnie Mae MD LAB BLOOD ORDERABLES Final Result Performing Organization Address [facility] de Phone Number HISTORICAL RESULTS * (ABNORMAL) Plasma basic metabolic panel (02/13/2013 3:56 AM CDT) Sodium 133(L) 135 - 145 mmol/L HISTORICAL RESULTS K, pl 4.7 3.3 - 4.9 mmol/L HISTORICAL RESULTS Chloride 102 97 - 110 mmol/L HISTORICAL RESULTS CO2 16(L) 22 - 32 mmol/L HISTORICAL RESULTS A. gap 15 0 - 16 mmol/L HISTORICAL RESULTS Glucose 98 70 - 199 mg/dl HISTORICAL RESULTS BUN 51(H) 8 - 25 mg/dl HISTORICAL RESULTS Creatinine 4.18(H) 0.60 - 1.10 mg/dl HISTORICAL RESULTS Calcium 9.2 8.6 - 10.3 mg/dl HISTORICAL RESULTS Plasma 02/13/2013 3:56 AM CDT Charly Goncalves MD LAB BLOOD ORDERABLES Fi nal Result Performing Organization Address [facility] de Phone Number HISTORICAL RESULTS * (ABNORMAL) Plasma phosphorus (02/13/2013 3:56 AM CDT) Phosphorus, pl 6.3(H) 2.3 - 4.3 mg/dl HISTORICAL RESULTS Plasma 02/13/2013 3:56 AM CDT Charly Goncalves MD LAB BLOOD ORDERABLES Fi nal Result Performing Organization Address [facility] de Phone Number HISTORICAL RESULTS * Serum magnesium (02/13/2013 3:56 AM CDT) Magnesium 1.9 1.4 - 2.5 mg/dl HISTORICAL RESULTS Serum 02/13/2013 3:56 AM CDT Charly Goncalves MD LAB BLOOD ORDERABLES Fi nal Result HISTORICAL RESULTS * (ABNORMAL) Blood cell count (CBC) (02/13/2013 3:56 AM CDT) WBC 5.7 3.8 - 9.8 K/cumm HISTORICAL RESULTS RBC 2.73(L) 3.90 - 5.00 M/cumm HISTORICAL RESULTS Hgb 8.8(L) 12.1 - 15.1 g/dl HISTORICAL RESULTS Hct 26.1(L) 36.1 - 44.3 % HISTORICAL RESULTS MCV 95.7 80.0 - 97.6 fl HISTORICAL RESULTS MCH 32.2 26.7 - 33.7 pg HISTORICAL RESULTS MCHC 33.6 32.7 - 35.5 g/dl HISTORICAL RESULTS Rdw 16.5(H) 11.8 - 14.6 % HISTORICAL RESULTS Platelets 179 140 - 440 K/cumm HISTORICAL RESULTS MPV 8.8 6.8 - 10.4 fl HISTORICAL RESULTS Neutrophils 94.6(H) 38.7 - 74.5 % HISTORICAL RESULTS Lymphocytes 0.7(L) 20.0 - 54.3 % HISTORICAL RESULTS Monos 4.7 4.3 - 13.5 % HISTORICAL RESULTS Eosinophils 0.0 0.0 - 6.0 % HISTORICAL RESULTS Basophils 0.0 0.0 - 3.0 % HISTORICAL RESULTS Neutrophils, abs 5.4 1.8 - 6.6 K/cumm HISTORICAL RESULTS Lymphocytes, abs 0.0(L) 1.2 - 3.3 K/cumm HISTORICAL RESULTS Monocytes, absolute 0.3 0.2 - 1.2 K/cumm HISTORICAL RESULTS Eosinophils, abs 0.0 0.0 - 0.5 K/cumm HISTORICAL RESULTS Basophils, abs 0.0 0.0 - 0.2 K/cumm HISTORICAL RESULTS Blood specimen (specimen) 02/13/2013 3:56 AM CDT Charly Goncalves MD LAB BLOOD ORDERABLES Fi nal Result HISTORICAL RESULTS * Blood tacrolimus (FK-506), trough drug level (02/13/2013 3:56 AM CDT) Tacrolimus, trough 6.1 ng/ml H ISTORICAL RESULTS Comment: Interpretive Data This test was developed using an analyte specific reagent. ??Its performance characteristics were determined by the [facility] in a manner consistent with CLIA requirements. This test has not been cleared or approved by the U.S. Food and Drug Administration. Current interpretive data was last revised on 2011. Blood specimen (specimen) 02/13/2013 3:56 AM CDT Result [facility] Charly Goncalves MD LAB BLOOD ORDERABLES Fi nal Result Performing Organization Address [facility] Phone Number HISTORICAL RESULTS * Blood glucose, POC (02/12/2013 8:11 PM CDT) Glucose, POC, bld 148 70 - 199 mg/dl HISTORICAL RESULTS Blood specimen (specimen) 02/12/2013 8:11 PM CDT Result [facility] Matheus Mahmood MD LAB BLOOD ORDERABLES Final Result Performing Organization Address [facility] de Phone Number HISTORICAL RESULTS * Blood glucose, POC (02/12/2013 3:53 PM CDT) Glucose, POC, bld 131 70 - 199 mg/dl HISTORICAL RESULTS Blood specimen (specimen) 02/12/2013 3:53 PM CDT Matheus Mahmood MD LAB BLOOD ORDERABLES Final Result Performing Organization Address [facility] de Phone Number HISTORICAL RESULTS * Blood glucose, POC (02/12/2013 11:49 AM CDT) Glucose, POC, bld 107 70 - 199 mg/dl HISTORICAL RESULTS Blood specimen (specimen) 02/12/2013 11:49 AM CDT Matheus Mahmood MD LAB BLOOD ORDERABLES Final Result Performing Organization Address [facility] de Phone Number HISTORICAL RESULTS * Blood glucose, POC (02/12/2013 8:03 AM CDT) Glucose, POC, bld 106 70 - 199 mg/dl HISTORICAL RESULTS Blood specimen (specimen) 02/12/2013 8:03 AM CDT Matheus Mahmood MD LAB BLOOD ORDERABLES Final Result Performing Organization Address [facility] de Phone Number HISTORICAL RESULTS * Plasma partial thromboplastin time (PTT) (02/12/2013 4:02 AM CDT) APTT 27.1 25.0 - 37.0 seconds HISTORICAL RESULTS Comment: Interpretive Data Therapeutic heparin range:60.0 - 94.0 sec based on correlation with therapeutic heparin activity range of 0.3 -0.7 Units/mL. Current interpretive data was last revised on 2011. Plasma 02/12/2013 4:02 AM CDT us Bonnie Mae MD LAB BLOOD ORDERABLES Final Result Performing Organization Address [facility] de Phone Number HISTORICAL RESULTS * (ABNORMAL) Plasma basic metabolic panel (02/12/2013 4:02 AM CDT) Sodium 133(L) 135 - 145 mmol/L HISTORICAL RESULTS K, pl 4.8 3.3 - 4.9 mmol/L HISTORICAL RESULTS Chloride 98 97 - 110 mmol/L HISTORICAL RESULTS CO2 17(L) 22 - 32 mmol/L HISTORICAL RESULTS A. gap 18(H) 0 - 16 mmol/L HISTORICAL RESULTS Glucose 104 70 - 199 mg/dl HISTORICAL RESULTS BUN 51(H) 8 - 25 mg/dl HISTORICAL RESULTS Creatinine 5.38(H) 0.60 - 1.10 mg/dl HISTORICAL RESULTS Calcium 8.9 8.6 - 10.3 mg/dl HISTORICAL RESULTS Plasma 02/12/2013 4:02 AM CDT Kristin Acevedo NP LAB BLOOD ORDERA BLES Final Result Performing Organization Address [facility] de Phone Number HISTORICAL RESULTS * (ABNORMAL) Plasma phosphorus (02/12/2013 4:02 AM CDT) Phosphorus, pl 7.3(H) 2.3 - 4.3 mg/dl HISTORICAL RESULTS Plasma 02/12/2013 4:02 AM CDT Kristin Simkyra Kuovthaley LAB BLOOD ORDERA BLES Final Result Performing Organization Address [facility] de Phone Number HISTORICAL RESULTS * Serum magnesium (02/12/2013 4:02 AM CDT) Pathologist [facility] Magnesium 1.7 1.4 - 2.5 mg/dl HISTORICAL RESULTS Serum 02/12/2013 4:02 AM CDT Kristin Simkyra Kuovthaley LAB BLOOD ORDERA BLES Final Result Performing Organization Address [facility] de Phone Number HISTORICAL RESULTS * (ABNORMAL) Blood cell count (CBC) (02/12/2013 4:02 AM CDT) Pathologist [facility] WBC 7.2 3.8 - 9.8 K/cumm HISTORICAL RESULTS RBC 2.81(L) 3.90 - 5.00 M/cumm HISTORICAL RESULTS Hgb 8.9(L) 12.1 - 15.1 g/dl HISTORICAL RESULTS Hct 27.4(L) 36.1 - 44.3 % HISTORICAL RESULTS MCV 97.5 80.0 - 97.6 fl HISTORICAL RESULTS MCH 31.6 26.7 - 33.7 pg HISTORICAL RESULTS MCHC 32.4(L) 32.7 - 35.5 g/dl HISTORICAL RESULTS Rdw 16.2(H) 11.8 - 14.6 % HISTORICAL RESULTS Platelets 186 140 - 440 K/cumm HISTORICAL RESULTS MPV 8.5 6.8 - 10.4 fl HISTORICAL RESULTS Neutrophils 94.1(H) 38.7 - 74.5 % HISTORICAL RESULTS Lymphocytes 1.1(L) 20.0 - 54.3 % HISTORICAL RESULTS Monos 4.8 4.3 - 13.5 % HISTORICAL RESULTS Eosinophils 0.0 0.0 - 6.0 % HISTORICAL RESULTS Basophils 0.0 0.0 - 3.0 % HISTORICAL RESULTS Neutrophils, abs 6.8(H) 1.8 - 6.6 K/cumm HISTORICAL RESULTS Lymphocytes, abs 0.1(L) 1.2 - 3.3 K/cumm HISTORICAL RESULTS Monocytes, absolute 0.3 0.2 - 1.2 K/cumm HISTORICAL RESULTS Eosinophils, abs 0.0 0.0 - 0.5 K/cumm HISTORICAL RESULTS Basophils, abs 0.0 0.0 - 0.2 K/cumm HISTORICAL RESULTS Blood specimen (specimen) 02/12/2013 4:02 AM CDT Kristin Acevedo [employer] LAB BLOOD ORDERA BLES Final Result Performing Organization Address City/[facility] Co de Phone Number HISTORICAL RESULTS * Blood tacrolimus (FK-506), trough drug level (02/12/2013 4:02 AM CDT) Tacrolimus, trough 2.5 ng/ml H ISTORICAL RESULTS Comment: Interpretive Data This test was developed using an analyte specific reagent. ??Its performance characteristics were determined by the [facility] in a manner consistent with CLIA requirements. This test has not been cleared or approved by the U.S. Food and Drug Administration. Current interpretive data was last revised on 2011. Blood specimen (specimen) 02/12/2013 4:02 AM CDT Kristin Acevedo [employer] LAB BLOOD ORDERA BLES Final Result HISTORICAL RESULTS * Blood glucose, POC (02/11/2013 7:59 PM CDT) Glucose, POC, bld 137 70 - 199 mg/dl HISTORICAL RESULTS Blood specimen (specimen) 02/11/2013 7:59 PM CDT Matheus Mahmood MD LAB BLOOD ORDERABLES Final Result Performing Organization Address [facility] de Phone Number HISTORICAL RESULTS * (ABNORMAL) Plasma basic metabolic panel (02/11/2013 5:55 PM CDT) Sodium 129(L) 135 - 145 mmol/L HISTORICAL RESULTS K, pl 5.3(H) 3.3 - 4.9 mmol/L HISTORICAL RESULTS Chloride 96(L) 97 - 110 mmol/L HISTORICAL RESULTS CO2 18(L) 22 - 32 mmol/L HISTORICAL RESULTS A. gap 15 0 - 16 mmol/L HISTORICAL RESULTS Glucose 118 70 - 199 mg/dl HISTORICAL RESULTS BUN 47(H) 8 - 25 mg/dl HISTORICAL RESULTS Creatinine 5.62(H) 0.60 - 1.10 mg/dl HISTORICAL RESULTS Calcium 8.8 8.6 - 10.3 mg/dl HISTORICAL RESULTS Plasma 02/11/2013 5:55 PM CDT Kristin Acevedo NP LAB BLOOD ORDERA BLES Final Result Performing Organization Address [facility] de Phone Number HISTORICAL RESULTS * Blood glucose, POC (02/11/2013 3:42 PM CDT) Glucose, POC, bld 112 70 - 199 mg/dl HISTORICAL RESULTS Blood specimen (specimen) 02/11/2013 3:42 PM CDT Matheus Mahmood MD LAB BLOOD ORDERABLES Final Result Performing Organization Address [facility] de Phone Number HISTORICAL RESULTS * (ABNORMAL) Blood potassium, mixed venous (02/11/2013 1:01 PM CDT) Potassium, bld 5.2(H) 3.3 - 4.9 mmol/L HISTORICAL RESULTS Mixed venous blood 02/11/2013 1:01 PM CDT Kristin Acevedo NP LAB BLOOD ORDERA BLES Final Result Performing Organization Address [facility]/ZIP Co de Phone Number HISTORICAL RESULTS * Blood glucose, POC (02/11/2013 12:01 PM CDT) Pathologist [facility] Glucose, POC, bld 120 70 - 199 mg/dl HISTORICAL RESULTS Blood specimen (specimen) 02/11/2013 12:01 PM CDT Matheus Mahmood MD LAB BLOOD ORDERABLES Final Result Performing Organization Address [facility] Co de Phone Number HISTORICAL RESULTS * Serum Cytomegalovirus (CMV) ab, IgG (02/11/2013 11:30 AM CDT) Pathologist [facility] CMV ab, IgG, qual Negative Negative HISTORICAL RESULTS Comment: Interpretive Data Negative - No detectable antibody to CMV IgG antibody by the HERI test. Equivocal- Uncertain Immune Status. ??Additional sample should be sent. Positive - Indicates presence of detectable CMV IgG antibody. Current interpretive data was last revised on 2004. Serum 02/11/2013 11:3 0 AM CDT Kristin Acevedo NP LAB BLOOD ORDERA BLES Final Result Performing Organization Address [facility] de Phone Number HISTORICAL RESULTS * (ABNORMAL) Plasma basic metabolic panel (02/11/2013 11:30 AM CDT) [facility] Sodium 129(L) 135 - 145 mmol/L HISTORICAL RESULTS K, pl 5.6(H) 3.3 - 4.9 mmol/L HISTORICAL RESULTS Chloride 95(L) 97 - 110 mmol/L HISTORICAL RESULTS CO2 21(L) 22 - 32 mmol/L HISTORICAL RESULTS A. gap 13 0 - 16 mmol/L HISTORICAL RESULTS Glucose 107 70 - 199 mg/dl HISTORICAL RESULTS BUN 46(H) 8 - 25 mg/dl HISTORICAL RESULTS Creatinine 5.80(H) 0.60 - 1.10 mg/dl HISTORICAL RESULTS Calcium 8.5(L) 8.6 - 10.3 mg/dl HISTORICAL RESULTS Plasma 02/11/2013 11:3 0 AM CDT Kristin Acevedo NP LAB BLOOD ORDERA BLES Final Result Performing Organization Address [facility] de Phone Number HISTORICAL RESULTS * Blood glucose, POC (02/11/2013 7:44 AM CDT) [facility] Glucose, POC, bld 107 70 - 199 mg/dl HISTORICAL RESULTS Blood specimen (specimen) 02/11/2013 7:44 AM CDT us Matheus Mahmood MD LAB BLOOD ORDERABLES Final Result Performing Organization Address [facility] de Phone Number HISTORICAL RESULTS * Serum magnesium (02/11/2013 4:34 AM CDT) [facility] Magnesium 1.8 1.4 - 2.5 mg/dl HISTORICAL RESULTS Serum 02/11/2013 4:34 AM CDT Bonnie Mae MD LAB BLOOD ORDERABLES Final Result Performing Organization Address [facility] de Phone Number HISTORICAL RESULTS * (ABNORMAL) Blood cell count (CBC) (02/11/2013 4:34 AM CDT) [facility] WBC 11.2(H) 3.8 - 9.8 K/cumm HISTORICAL RESULTS RBC 2.72(L) 3.90 - 5.00 M/cumm HISTORICAL RESULTS Hgb 8.7(L) 12.1 - 15.1 g/dl HISTORICAL RESULTS Hct 26.7(L) 36.1 - 44.3 % HISTORICAL RESULTS MCV 98.2(H) 80.0 - 97.6 fl HISTORICAL RESULTS MCH 31.9 26.7 - 33.7 pg HISTORICAL RESULTS MCHC 32.5(L) 32.7 - 35.5 g/dl HISTORICAL RESULTS Rdw 16.5(H) 11.8 - 14.6 % HISTORICAL RESULTS Platelets 192 140 - 440 K/cumm HISTORICAL RESULTS MPV 8.3 6.8 - 10.4 fl HISTORICAL RESULTS Neutrophils 95.3(H) 38.7 - 74.5 % HISTORICAL RESULTS Lymphocytes 0.5(L) 20.0 - 54.3 % HISTORICAL RESULTS Monos 4.1(L) 4.3 - 13.5 % HISTORICAL RESULTS Eosinophils 0.1 0.0 - 6.0 % HISTORICAL RESULTS Basophils 0.0 0.0 - 3.0 % HISTORICAL RESULTS Neutrophils, abs 10.7(H) 1.8 - 6.6 K/cumm HISTORICAL RESULTS Lymphocytes, abs 0.1(L) 1.2 - 3.3 K/cumm HISTORICAL RESULTS Monocytes, absolute 0.5 0.2 - 1.2 K/cumm HISTORICAL RESULTS Eosinophils, abs 0.0 0.0 - 0.5 K/cumm HISTORICAL RESULTS Basophils, abs 0.0 0.0 - 0.2 K/cumm HISTORICAL RESULTS Blood specimen (specimen) 02/11/2013 4:34 AM CDT Bonnie Mae MD LAB BLOOD ORDERABLES Final Result Performing Organization Address [facility] de Phone Number HISTORICAL RESULTS * (ABNORMAL) Plasma renal panel (02/11/2013 4:34 AM CDT) Sodium 129(L) 135 - 145 mmol/L HISTORICAL RESULTS K, pl 5.2(H) 3.3 - 4.9 mmol/L HISTORICAL RESULTS Chloride 96(L) 97 - 110 mmol/L HISTORICAL RESULTS CO2 19(L) 22 - 32 mmol/L HISTORICAL RESULTS A. gap 14 0 - 16 mmol/L HISTORICAL RESULTS Glucose 105 70 - 199 mg/dl HISTORICAL RESULTS BUN 42(H) 8 - 25 mg/dl HISTORICAL RESULTS Creatinine 5.87(H) 0.60 - 1.10 mg/dl HISTORICAL RESULTS Calcium 8.0(L) 8.6 - 10.3 mg/dl HISTORICAL RESULTS Phosphorus, pl 6.9(H) 2.3 - 4.3 mg/dl HISTORICAL RESULTS Alb 3.2(L) 3.6 - 5.0 g/dl HISTORICAL RESULTS Plasma 02/11/2013 4:34 AM CDT Bonnie Mae MD LAB BLOOD ORDERABLES Final Result Performing Organization Address [facility] de Phone Number HISTORICAL RESULTS * Blood consistent result (02/11/2013 4:34 AM CDT) Consistent result Consistent with previous results HISTORICAL RESULTS Blood specimen (specimen) 02/11/2013 4:34 AM CDT us Bonnie Mae MD LAB BLOOD ORDERABLES Final Result HISTORICAL RESULTS * US Retroperitoneal Complete (02/11/2013 3:02 AM CDT) Anatomical Region Laterality Modality Abdomen N/A Ultrasound 02/11/2013 3:02 AM CDT Narrative 02/11/2013 11:36 AM CDT LEO BAKER M.D. RAGHAV BAILEY, FINAL REPORT The radiology attending physician has personally reviewed this study, and has reviewed and/or edited this written report and agrees with it. ACC# ??Date Time ??Exam [id number] Feb 11, 2013 03:02:00 [id number] US Retroper cmp EXAMINATION: ?? 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 There is no hydronephrosis. ??No perinephric fluid collection is seen. ??Color Doppler and spectral analysis were used to evaluate the renal vasculature. There is normal venous and arterial flow at the renal hilum. There is normal wave form morphology. ??Resistive indices within the renal parenchyma range from 0.72 to 0.75. ?? 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 There is normal venous and arterial flow at the renal hilum. Parenchymal resistive indices are normal. ?? Requested By: JUANJOSE GALLARDO M.D. Dictated By: ?? RAGHAV BAILEY, ?? on Feb ??2012 ??3:14A This document has been electronically signed by: LEO BAKER M.D. on Feb ??2012 11:36A Procedure Note Provider, MD Diego - 10/30/2016 LEO BAKER M.D. RAGHAV BAILEY, FINAL REPORT The radiology attending physician has personally reviewed this study, and has reviewed and/or edited this written report and agrees with it. ACC# Date Time Exam [id number] Feb 11, 2013 03:02:00 [id number] US Retroper cmp EXAMINATION: Renal transplant sonogram HISTORY: Renal transplant 02/10/2013 with low urine output FINDINGS: The transplant kidney appears normal. There is no hydronephrosis. No perinephric fluid collection is seen. Color Doppler and spectral analysis were used to evaluate the renal vasculature. There is normal venous and arterial flow at the renal hilum. There is normal wave form morphology. Resistive indices within the renal parenchyma range from 0.72 to 0.75. 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 There is normal venous and arterial flow at the renal hilum. Parenchymal resistive indices are normal. Requested By: JUANJOSE GALLARDO M.D. Dictated By: RAGHAV BAILEY on Feb 11 2013 3:14A This document has been electronically signed by: LEO BAKER M.D. on Feb 11 2013 11:36A Historical Provider Radha US PROCEDURES Final R esult * (ABNORMAL) Blood cell count [CBC] express (02/11/2013 12:23 AM CDT) WBC 11.1(H) 3.8 - 9.8 K/cumm HISTORICAL RESULTS RBC 2.65(L) 3.90 - 5.00 M/cumm HISTORICAL RESULTS Hgb 8.4(L) 12.1 - 15.1 g/dl HISTORICAL RESULTS Hct 26.1(L) 36.1 - 44.3 % HISTORICAL RESULTS MCV 98.4(H) 80.0 - 97.6 fl HISTORICAL RESULTS MCH 31.7 26.7 - 33.7 pg HISTORICAL RESULTS MCHC 32.2(L) 32.7 - 35.5 g/dl HISTORICAL RESULTS Rdw 16.2(H) 11.8 - 14.6 % HISTORICAL RESULTS Platelets 159 140 - 440 K/cumm HISTORICAL RESULTS MPV 7.8 6.8 - 10.4 fl HISTORICAL RESULTS Blood specimen (specimen) 02/11/2013 12:23 AM CDT Historical Provider LAB BLOOD ORDERABLES Paty l Result Performing Organization Address [facility] de Phone Number HISTORICAL RESULTS * Blood glucose, POC (02/10/2013 9:00 PM CDT) Pathologist [facility] Glucose, POC, bld 145 70 - 199 mg/dl HISTORICAL RESULTS Blood specimen (specimen) 02/10/2013 9:00 PM CDT Matheus Mahmood MD LAB BLOOD ORDERABLES Final Result Performing Organization Address [facility] de Phone Number HISTORICAL RESULTS * (ABNORMAL) Plasma renal panel (02/10/2013 12:30 PM CDT) Pathologist [facility] Sodium 137 135 - 145 mmol/L HISTORICAL RESULTS K, pl 4.8 3.3 - 4.9 mmol/L HISTORICAL RESULTS Chloride 98 97 - 110 mmol/L HISTORICAL RESULTS CO2 26 22 - 32 mmol/L HISTORICAL RESULTS A. gap 13 0 - 16 mmol/L HISTORICAL RESULTS Glucose 125 70 - 199 mg/dl HISTORICAL RESULTS BUN 41(H) 8 - 25 mg/dl HISTORICAL RESULTS Creatinine 6.24(H) 0.60 - 1.10 mg/dl HISTORICAL RESULTS Calcium 8.4(L) 8.6 - 10.3 mg/dl HISTORICAL RESULTS Phosphorus, pl 5.0(H) 2.3 - 4.3 mg/dl HISTORICAL RESULTS Alb 3.6 3.6 - 5.0 g/dl HISTORICAL RESULTS Plasma 02/10/2013 12:3 0 PM CDT Matheus Mahmood MD LAB BLOOD ORDERABLES Final Result Performing Organization Address [facility] de Phone Number HISTORICAL RESULTS * (ABNORMAL) Blood cell count (CBC) (02/10/2013 12:30 PM CDT) WBC 8.4 3.8 - 9.8 K/cumm HISTORICAL RESULTS RBC 2.91(L) 3.90 - 5.00 M/cumm HISTORICAL RESULTS Hgb 9.1(L) 12.1 - 15.1 g/dl HISTORICAL RESULTS Hct 28.6(L) 36.1 - 44.3 % HISTORICAL RESULTS MCV 98.1(H) 80.0 - 97.6 fl HISTORICAL RESULTS MCH 31.3 26.7 - 33.7 pg HISTORICAL RESULTS MCHC 31.9(L) 32.7 - 35.5 g/dl HISTORICAL RESULTS Rdw 16.5(H) 11.8 - 14.6 % HISTORICAL RESULTS Platelets 192 140 - 440 K/cumm HISTORICAL RESULTS MPV 8.6 6.8 - 10.4 fl HISTORICAL RESULTS Neutrophils 97.2(H) 38.7 - 74.5 % HISTORICAL RESULTS Comment:{Result required zay ification by manual methods.} Lymphocytes 0.5(L) 20.0 - 54.3 % HISTORICAL RESULTS Monos 2.3(L) 4.3 - 13.5 % HISTORICAL RESULTS Eosinophils 0.0 0.0 - 6.0 % HISTORICAL RESULTS Basophils 0.0 0.0 - 3.0 % HISTORICAL RESULTS Neutrophils, abs 8.2(H) 1.8 - 6.6 K/cumm HISTORICAL RESULTS Lymphocytes, abs 0.0(L) 1.2 - 3.3 K/cumm HISTORICAL RESULTS Monocytes, absolute 0.2 0.2 - 1.2 K/cumm HISTORICAL RESULTS Eosinophils, abs 0.0 0.0 - 0.5 K/cumm HISTORICAL RESULTS Basophils, abs 0.0 0.0 - 0.2 K/cumm HISTORICAL RESULTS Blood specimen (specimen) 02/10/2013 12:30 PM CDT Matheus Mahmood MD LAB BLOOD ORDERABLES Final Result Performing Organization Address [place]/[facility] Co de Phone Number HISTORICAL RESULTS * Blood cell morphologic exam (02/10/2013 12:30 PM CDT) Pathologist [facility] Morphology scrn Original results obtained required verification by alternate method(s). Refer to CBC and/or observation sections for detailed results HISTORICAL RESULTS Blood specimen (specimen) 02/10/2013 12:30 PM CDT Matehus Mahmood MD LAB BLOOD ORDERABLES Final Result HISTORICAL RESULTS * Blood ABO, Rh, indirect ab screen (02/10/2013 7:13 AM CDT) [facility] ABO, Rho(D) B Positive HISTORI CHANO RESULTS Emerita, indirect Negative HISTORICAL RESULTS Blood specimen (specimen) 02/10/2013 7:13 AM CDT Result [facility] Matheus Mahmood MD LAB BLOOD ORDERABLES Final Result Performing Organization Address [facility] de Phone Number HISTORICAL RESULTS * (ABNORMAL) Blood electrolyte, hemoglobin, hematocrit panel, I-Stat (02/10/2013 6:55 AM CDT) [facility] Sodium, bld 134(L) 135 - 145 mmol/L HISTORICAL RESULTS Potassium, bld 5.1(H) 3.3 - 4.9 mmol/L HISTORICAL RESULTS BUN, POC, bld 43(H) 8 - 25 mg/dl HISTORICAL RESULTS Glucose, POC, bld 79 70 - 199 mg/dl HISTORICAL RESULTS Hct 33.0(L) 36.1 - 44.3 % HISTORICAL RESULTS Hgb 11.2(L) 12.1 - 15.1 g/dl HISTORICAL RESULTS Blood specimen (specimen) 02/10/2013 6:55 AM CDT Result [facility] Matheus Mahmood MD LAB BLOOD ORDERABLES Final Result Performing Organization Address [facility] de Phone Number HISTORICAL RESULTS * Flow XM Donor Specimen Source (02/09/2013 4:40 PM CDT) [facility] Flow Donor Specimen Lymph Nodes HISTORICAL RESULTS Miscellaneous 02/09/2013 4:4 0 PM CDT Result [facility] Matheus Mahmood MD LAB BLOOD ORDERABLES Final Result Performing Organization Address [facility] Co de Phone Number HISTORICAL RESULTS * Cyto XM Donor Specimen Source (02/09/2013 4:40 PM CDT) [facility] Cyto Donor Specimen Lymph Nodes HISTORICAL RESULTS Miscellaneous 02/09/2013 4:4 0 PM CDT Result [facility] Matheus Mahmood MD LAB BLOOD ORDERABLES Final Result Performing Organization Address [facility] Co de Phone Number HISTORICAL RESULTS * Specimen source (02/09/2013 4:40 PM CDT) Referral specimen source Peripheral Blood HISTORICAL RESULTS Miscellaneous 02/09/2013 4:4 0 PM CDT Matheus Mahmood MD LAB BLOOD ORDERABLES Final Result Performing Organization Address [facility] de Phone Number HISTORICAL RESULTS * Blood Class II AB SCR Renal Single Antigen (02/09/2013 4:40 PM CDT) Class II PRA IgG 6 % HISTORICAL RESULTS HERI II ID AB See Comment HISTORICAL RESULTS Comment: 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 DQA1*05:05 (associated with DQ7). DSA II Present HISTORICAL RESULTS DSA II Present See Comment HISTORICAL RESULTS Comment:{DQA1*05:01 (associa shun with DQ2). MWN=[id number].} Class II Ag to Avoid See specificities HISTORICAL RESULTS Miscellaneous 02/09/2013 4:4 0 PM CDT Matheus Mahmood MD LAB BLOOD ORDERABLES Final Result Performing Organization Address [facility] de Phone Number HISTORICAL RESULTS * Blood Class I AB SCR Renal Single Antigen (02/09/2013 4:40 PM CDT) Class I PRA IgG 0 % HISTORICAL RESULTS DSA I Present HISTORICAL RESULTS DSA I Present None HISTOR ICAL RESULTS Class I Ag to Avoid None HISTORICAL RESULTS Miscellaneous 02/09/2013 4:4 0 PM CDT Matheus Mahmood MD LAB BLOOD ORDERABLES Final Result Performing Organization Address [facility] Co de Phone Number HISTORICAL RESULTS * Blood Cadaver DTT Interp Final XM (02/09/2013 4:40 PM CDT) Pathologist [facility] CAD Fin XM DTT Interp Negative; Reactivity removed with DTT HISTORICAL RESULTS Miscellaneous 02/09/2013 4:4 0 PM CDT Matheus Mahmood MD LAB BLOOD ORDERABLES Final Result Performing Organization Address [facility]/State/ZIP Co de Phone Number HISTORICAL RESULTS * Blood Cadaver XM Final Renal Interp (02/09/2013 4:40 PM CDT) Pathologist [facility] CAD Fin XM Interp Positive; DTT Crossmatch Required HISTORICAL RESULTS Miscellaneous 02/09/2013 4:4 0 PM CDT Matheus Mahmood MD LAB BLOOD ORDERABLES Final Result Performing Organization Address [facility] Co de Phone Number HISTORICAL RESULTS * Blood Flow XM Renal Interp (02/09/2013 4:40 PM CDT) [facility] T cell Flow XM Result Flow Neg HISTORICAL RESULTS B cell Flow XM Result Flow Neg HISTORICAL RESULTS Flow XM Interp T Cell IgG Negative and B Cell IgG Negative HISTORICAL RESULTS Miscellaneous 02/09/2013 4:4 0 PM CDT Matheus Mahmood MD LAB BLOOD ORDERABLES Final Result Performing Organization Address [facility] Co de Phone Number HISTORICAL RESULTS * Blood Cadaver XM Final Renal-DTT (02/09/2013 4:40 PM CDT) [facility] UNOS Donor ID [id number] HISTOR ICAL RESULTS Performed date 02/09/2013 HIST ORICAL RESULTS XM type DTT XM - Final HISTORICAL RESULTS CAD Fin T XM DTT FWA/AHG Neg/Neg HISTORICAL RESULTS CAD Fin B XM DTT FWA/AHG Neg/Neg HISTORICAL RESULTS Miscellaneous 02/09/2013 4:4 0 PM CDT Matheus Mahmood MD LAB BLOOD ORDERABLES Final Result Performing Organization Address [facility] Co de Phone Number HISTORICAL RESULTS * Blood Flow XM Renal (02/09/2013 4:40 PM CDT) Donor Last Name [id number] HISTORICAL RESULTS Donor First Name [id number] HISTORICAL RESULTS UNOS Donor ID [id number] HISTOR ICAL RESULTS Performed date 02/10/2013 HISTORICAL RESULTS Flow XM Technique Non-Treated Cells HISTORICAL RESULTS Sera 1 Date 02/09/2013 HISTORI CHANO RESULTS Sera 1 T MCS 5 HISTORI CHANO RESULTS Sera 1 T Result Negative HISTORICAL RESULTS Sera 1 B MCS 41 HISTORI CHANO RESULTS Sera 1 B Result Negative HISTORICAL RESULTS Miscellaneous 02/09/2013 4:4 0 PM CDT Matheus Mahmood MD LAB BLOOD ORDERABLES Final Result HISTORICAL RESULTS * Blood Cadaver XM Final Renal (02/09/2013 4:40 PM CDT) UNOS Donor ID [id number] HISTOR ICAL RESULTS Cyto XM Performed Date 02/09/2013 HISTORICAL RESULTS Cyto XM type Cyto XM - Final HISTORICAL RESULTS CAD Fin T XM FWA/AHG Neg/Neg HISTORICAL RESULTS CAD Fin B XM FWA/AHG Pos/Pos HISTORICAL RESULTS Miscellaneous 02/09/2013 4:4 0 PM CDT Matheus Mahmood MD LAB BLOOD ORDERABLES Final Result HISTORICAL RESULTS * (ABNORMAL) Serum Hepatitis B core ab (02/09/2013 4:39 PM CDT) Pathologist [facility] HBV core ab Positive(A ) NEG HISTORICAL RESULTS Serum 02/09/2013 4:39 PM CDT Kristin Acevedo NP LAB BLOOD ORDERA BLES Final Result HISTORICAL RESULTS * Serum Human Immunodeficiency virus (HIV) 1, 2 ab (02/09/2013 4:39 PM CDT) HIV ab Negative NEG HISTORICAL RESULTS Serum 02/09/2013 4:39 PM CDT Kristin Rainer Acevedo NP LAB BLOOD ORDERA BLES Final Result HISTORICAL RESULTS * Serum lipid panel (02/09/2013 4:39 PM CDT) Cholesterol 151 0 - 200 mg/dl HISTORICAL RESULTS Comment: Interpretive Data Desirable: ?<200 mg/dL Borderline high: ??200-239 mg/dL High: ? >240 mg/dL Literature Reference: National Cholesterol Education Program (NCEP) Expert Panel on Detection, Evaluation, and Treatment of High Blood Cholesterol in Adults (Adult Treatment Panel III). ??Circulation 2004; 110:227. Current interpretive data was last revised on 2005. Triglycerides 62 0 - 150 mg/dl HISTORICAL RESULTS Comment: Interpretive Data Desirable: ? < 150 mg/dL Borderline High: ? 150 - 199 mg/dL High: ?> 200 mg/dL Literature Reference: See Cholesterol Current interpretive data was last revised on 06. HDL 69 40 - 199 mg/dl HISTORICAL RESULTS Comment: Interpretive Data Less than 40 mg/dL - low; A major risk factor for heart disease. Greater than or equal to 60 mg/dL - High; ??considered protective of heart disease. Literature Reference: See Cholesterol Current interpretive data was last revised on 2008. LDL 70 0 - 129 mg/dl HISTORICAL RESULTS Comment: Interpretive Data Optimal: ? < 100 mg/dL Near Optimal: ?100 - 129 mg/dL Borderline High: ?? 130 - 159 mg/dL High: ?> 160 mg/dL Literature Reference: See Cholesterol Current interpretive data was last revised on 06. Non-HDL cholesterol, calculated 82 mg/dl HISTORICAL RESULTS Comment: Interpretive Data When triglycerides are >200 mg/dL, non-HDL C is a secondary target of therapy, with a goal 30 mg/dL higher than the identified LDL-C goal. Reference: ??See Cholesterol Reference. Current interpretive data was last revised 2012. Serum 02/09/2013 4:39 PM CDT Kristin Acevedo SUPERVISOR DIE CASTING LAB BLOOD ORDERA BLES Final Result Performing Organization Address [facility] de Phone Number HISTORICAL RESULTS * (ABNORMAL) Serum iron profile (02/09/2013 4:39 PM CDT) Iron 38 30 - 160 mcg/dl HISTORICAL RESULTS UIBC 147 mcg/dl HISTORICAL RESULTS TIBC 185(L) 220 - 420 mcg/dl HISTORICAL RESULTS Transferrin saturation 21 20 - 50 % HISTORICAL RESULTS Serum 02/09/2013 4:39 PM CDT Kristin Acevedo SUPERVISOR DIE CASTING LAB BLOOD ORDERA BLES Final Result Performing Organization Address [facility] de Phone Number HISTORICAL RESULTS * (ABNORMAL) Plasma phosphorus (02/09/2013 4:39 PM CDT) Phosphorus, pl 5.4(H) 2.3 - 4.3 mg/dl HISTORICAL RESULTS Plasma 02/09/2013 4:39 PM CDT Kristin Acevedo SUPERVISOR DIE CASTING LAB BLOOD ORDERA BLES Final Result Performing Organization Address [facility] de Phone Number HISTORICAL RESULTS * Serum uric acid (02/09/2013 4:39 PM CDT) Uric acid 3.8 2.5 - 7.5 mg/dl HISTORICAL RESULTS Serum 02/09/2013 4:39 PM CDT Kristin Acevedo SUPERVISOR DIE CASTING LAB BLOOD ORDERA BLES Final Result Performing Organization Address [facility]/State/ZIP Co de Phone Number HISTORICAL RESULTS * (ABNORMAL) Serum ferritin (02/09/2013 4:39 PM CDT) Ferritin 700(H) 10 - 291 ng/ml HISTORICAL RESULTS Serum 02/09/2013 4:39 PM CDT Kristin Rainer Acevedo NP LAB BLOOD ORDERA BLES Final Result Performing Organization Address [facility] de Phone Number HISTORICAL RESULTS * Blood hemoglobin A1C (02/09/2013 4:39 PM CDT) Hgb A1C 4.7 4.0 - 6.0 % HISTORICAL RESULTS Estimated average glucose 88 mg/dl HISTORICAL RESULTS Comment: The ADA recommends reporting an estimated Average Glucose (eAG) with all Hemoglobin A1c results using the equation derived from a study of 507 normal and diabetic adults. ??Minority populations were underrepresented and children were not included. ??(Diabetes Care 31:2364-0265, 2008). ??The eAG is not equivalent to a fasting glucose. Blood specimen (specimen) 02/09/2013 4:39 PM CDT Kristin Rainer Acevedo NP LAB BLOOD ORDERA BLES Final Result Performing Organization Address [facility] de Phone Number HISTORICAL RESULTS * (ABNORMAL) Plasma comprehensive metabolic panel (02/09/2013 4:39 PM CDT) Sodium 139 135 - 145 mmol/L HISTORICAL RESULTS K, pl 4.7 3.3 - 4.9 mmol/L HISTORICAL RESULTS Chloride 93(L) 97 - 110 mmol/L HISTORICAL RESULTS CO2 35(H) 22 - 32 mmol/L HISTORICAL RESULTS A. gap 11 0 - 16 mmol/L HISTORICAL RESULTS Glucose 79 70 - 199 mg/dl HISTORICAL RESULTS BUN 33(H) 8 - 25 mg/dl HISTORICAL RESULTS Creatinine 5.73(H) 0.60 - 1.10 mg/dl HISTORICAL RESULTS Calcium 10.1 8.6 - 10.3 mg/dl HISTORICAL RESULTS Protein, pl 7.3 6.5 - 8.5 g/dl HISTORICAL RESULTS Alb 4.3 3.6 - 5.0 g/dl HISTORICAL RESULTS Bilirubin 0.3 0.3 - 1.1 mg/dl HISTORICAL RESULTS Alk phos 108 38 - 126 Units/L HISTORICAL RESULTS AST 27 11 - 47 Units/L HISTORICAL RESULTS ALT 15 7 - 53 Units/L HISTORICAL RESULTS Plasma 02/09/2013 4:39 PM CDT Kristin Kuojayshree SUPERVISOR DIE CASTING LAB BLOOD ORDERA BLES Final Result Performing Organization Address [facility] de Phone Number HISTORICAL RESULTS * Plasma partial thromboplastin time (PTT) (02/09/2013 4:39 PM CDT) APTT 30.7 25.0 - 37.0 seconds HISTORICAL RESULTS Comment: Interpretive Data Therapeutic heparin range:60.0 - 94.0 sec based on correlation with therapeutic heparin activity range of 0.3 -0.7 Units/mL. Current interpretive data was last revised on 2011. Plasma 02/09/2013 4:39 PM CDT Kristin Rochegus VALLEJO LAB BLOOD ORDERA BLES Final Result Performing Organization Address [facility] de Phone Number HISTORICAL RESULTS * Plasma prothrombin time (PT) (02/09/2013 4:39 PM CDT) Prothrombin time (PT) 11.1 9.0 - 12.0 seconds HISTORICAL RESULTS INR 1.05 0.90 - 1.20 HISTORIC AL RESULTS Comment: Interpretive Data Inpatient therapeutic ranges* Atrial fibrillation ?2.0-3.0 INR Venous thrombo-embolism ?2.0-3.0 INR Bioprosthetic heart valve ?* Mechanical heart valve, bileaflet or tilting disk,aortic position ? 2.0-3.0 INR All other,or bileaflet or tilting disk, in mitral position ? 2.5-3.5 INR *See the pharmacy resource directory (PHRED) for an updated copy of the Tool Book at [email or web address] Current Interpretive Data was last revised 2011. Plasma 02/09/2013 4:39 PM CDT Kristin Acevedo SUPERVISOR DIE CASTING LAB BLOOD ORDERA BLES Final Result HISTORICAL RESULTS * (ABNORMAL) Blood cell count (CBC) (02/09/2013 4:39 PM CDT) WBC 4.5 3.8 - 9.8 K/cumm HISTORICAL RESULTS RBC 3.18(L) 3.90 - 5.00 M/cumm HISTORICAL RESULTS Hgb 9.9(L) 12.1 - 15.1 g/dl HISTORICAL RESULTS Hct 31.4(L) 36.1 - 44.3 % HISTORICAL RESULTS MCV 98.8(H) 80.0 - 97.6 fl HISTORICAL RESULTS MCH 31.2 26.7 - 33.7 pg HISTORICAL RESULTS MCHC 31.6(L) 32.7 - 35.5 g/dl HISTORICAL RESULTS Rdw 16.8(H) 11.8 - 14.6 % HISTORICAL RESULTS Platelets 219 140 - 440 K/cumm HISTORICAL RESULTS MPV 8.2 6.8 - 10.4 fl HISTORICAL RESULTS Neutrophils 68.9 38.7 - 74.5 % HISTORICAL RESULTS Lymphocytes 17.5(L) 20.0 - 54.3 % HISTORICAL RESULTS Monos 9.1 4.3 - 13.5 % HISTORICAL RESULTS Eosinophils 3.6 0.0 - 6.0 % HISTORICAL RESULTS Basophils 0.9 0.0 - 3.0 % HISTORICAL RESULTS Neutrophils, abs 3.1 1.8 - 6.6 K/cumm HISTORICAL RESULTS Lymphocytes, abs 0.8(L) 1.2 - 3.3 K/cumm HISTORICAL RESULTS Monocytes, absolute 0.4 0.2 - 1.2 K/cumm HISTORICAL RESULTS Eosinophils, abs 0.2 0.0 - 0.5 K/cumm HISTORICAL RESULTS Basophils, abs 0.0 0.0 - 0.2 K/cumm HISTORICAL RESULTS Blood specimen (specimen) 02/09/2013 4:39 PM CDT Kristin Acevedo SUPERVISOR DIE CASTING LAB BLOOD ORDERA BLES Final Result Performing Organization Address [facility] de Phone Number HISTORICAL RESULTS * Blood ABO, Rh, indirect ab screen (02/09/2013 4:39 PM CDT) ABO, Rho(D) B Positive HISTORI CHANO RESULTS Emerita, indirect Negative HISTORICAL RESULTS Blood specimen (specimen) 02/09/2013 4:39 PM CDT Kristin Acevedo SUPERVISOR DIE CASTING LAB BLOOD ORDERA BLES Final Result Performing Organization Address [facility] de Phone Number HISTORICAL RESULTS * XR Chest 1 View (02/09/2013 1:33 PM CDT) Anatomical Region Laterality Modality Body, Chest N/A Radiographic Tomeka ging 02/09/2013 1:33 PM CDT Narrative 02/09/2013 3:27 PM CDT LISANDRA DURAN M.D. MARCELLA VELEZ, FINAL REPORT The radiology attending physician has personally reviewed this study, and has reviewed and/or edited this written report and agrees with it. ACC# ??Date Time ??Exam [id number] Feb 09, 2013 13:33:00 [id number] Chest 1 view Frontal EXAMINATION: ?? Chest 1 view IMPRESSION: ?? Comparison is made to the prior performed on 01/26/2013. Mild cardiomegaly is stable. Small left pleural effusion, with mild left basilar atelectasis. Mild pulmonary edema. No pneumothorax. Requested By: KRISTIN ACEVEDO Dictated By: ?? MARCELLA VELEZ, ?? on Feb ??2012 ??2:51P This document has been electronically signed by: LISANDRA DURAN M.D. on Feb ??2012 ??3:27P Procedure Note Provider, MD Diego - 10/30/2016 LISANDRA DURAN M.D. MARCELLA VELEZ, FINAL REPORT The radiology attending physician has personally reviewed this study, and has reviewed and/or edited this written report and agrees with it. ACC# Date Time Exam [id number] Feb 09, 2013 13:33:00 [id number] Chest 1 view Frontal EXAMINATION: Chest 1 view IMPRESSION: Comparison is made to the prior performed on 01/26/2013. Mild cardiomegaly is stable. Small left pleural effusion, with mild left basilar atelectasis. Mild pulmonary edema. No pneumothorax. Requested By: KRISTIN ACEVEDO [facility] Dictated By: MARCELLA VELEZ, on Feb 09 2013 2:51P This document has been electronically signed by: LISANDRA DURAN M.D. on Feb 09 2013 3:27P Historical Provider IMG XR PROCEDURES Final R esult * Serum Hepatitis B core ab, IgM (02/09/2013 11:39 AM CDT) HBV core ab, IgM Negative NEG HISTORICAL RESULTS Serum 02/09/2013 11:3 9 AM CDT Narrative HISTORICAL RESULTS - 02/10/2013 3:49 AM CDT Interpretive Data If test is reported as Equivocal, new sample should be drawn for testing. Current interpretive data was last revised on 2008. Kristin Acevedo SUPERVISOR DIE CASTING LAB BLOOD ORDERA BLES Final Result HISTORICAL RESULTS * Serum Hepatitis C ab (02/09/2013 11:39 AM CDT) HCV ab Negative NEG HISTORICAL RESULTS Serum 02/09/2013 11:3 9 AM CDT Narrative HISTORICAL RESULTS - 02/10/2013 3:47 AM CDT Interpretive Data If confirmation is required, call Laboratory Customer Service to request sample to be sent to [facility] for Hepatitis C Virus (HCV) RNA Detection and Quantitation by Real-Time Reverse [employer]-PCR (RT-PCR). Current interpretive data was last revised on 2011 Kristin Acevedo SUPERVISOR DIE CASTING LAB BLOOD ORDERA BLES Final Result HISTORICAL RESULTS * ELECTROCARDIOGRAPHY (ECG) (02/09/2013) Narrative 02/09/2013 Ordered by an unspecified provider. 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) Pneumonia due to infectious organism Thrombotic microangiopathy (HCC) Thrombotic microangiopathy Pleural effusion Unspecified pleural effusion Secondary hyperparathyroidism, renal (HCC) Secondary hyperparathyroidism (of renal origin) Herpes zoster with other complication End-stage renal disease (CMS/HCC) (HCC) Acquired hemolytic anemia (HCC) Acquired hemolytic anemia, unspecified Renal osteodystrophy Other disorders of arteries and arterioles Other specified diseases of hair and hair follicles 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) Renal dialysis status Hypothyroidism Unspecified hypothyroidism Neuralgia, neuritis or radiculitis Coronary atherosclerosis of [place] coronary artery Other transfusion reaction Hyperpotassemia Generalized pain Osteoporosis Unspecified osteoporosis Other chest pain Disorder of phosphorus metabolism Disorders of phosphorus metabolism Other specified procedure as the cause of abnormal reaction of patient or of later complication Place of occurrence, residential institution Antineoplastic and immunosuppressive drugs causing adverse effect in therapeutic use documented in this encounter Care Teams Washer Off Relationship Specialty Start Date End Date Burke Rosenberg DO [address] [facility] [address] [place] [address] PCP - General 09/27/10 02/19/14 documented as of this encounter
--- OUTSIDE RECORDS SUMMARY | 2024-06-27 01:59 | XMS_ITS | Encounter Summary ---
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 Gender Identity Not on file Sexual Orientation Not on file documented as of this encounter Plan of Treatment Not on file documented as of this encounter Visit Diagnoses Diagnosis Compression of vein 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
--- OUTSIDE RECORDS SUMMARY | 2024-06-27 01:59 | XMS_ITS | Encounter Summary ---
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); End-stage renal disease (CMS/HCC) (HCC); 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); Compression of vein Social History Tobacco Use Types Packs/Day Years Used Date Smoking Tobacco: Never Assessed Alcohol Use Standard Drinks/Week Comments No 0 (1 standard drink = 0.6 oz pur e alcohol) Comments Unknown Sex and Gender Information Value Date Recorded Sex Assigned at Not on file 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 Gender Identity Not on file Sexual Orientation Not on file documented as of this encounter Plan of Treatment Not on file documented as of this encounter Visit Diagnoses Diagnosis Hemorrhage complicating a procedure Other specified misadventures during medical care Place of occurrence, residential institution 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
--- OUTSIDE RECORDS SUMMARY | 2024-06-27 01:59 | XMS_ITS | Encounter Summary ---
Author Organization [facility] Healthcare Address [address] [place] [address] Care Team Providers Care Counselor Marriage And Family Name Role Phone Burke Rosenberg DO Primary Care Provider Encounter Details Date Type Department Care Team (Late st Contact Info) Description 12/17/2011 8:13 AM CDT - 12/17/2011 1:00 PM T Hospital Encounter [facility] Cullen Muñ[place] [id number] [id number] Complication from renal dialysis device; Surgical operation with anastomosis, bypass, or graft, with natural or artificial tissues used as implant causing abnormal patient reaction, or later complication; Place of occurrence, residential institution; End-stage renal disease ([facility] ([facility]); Dependence on renal dialysis ([facility]) ([facility]); Compression of vein; Other specified circulatory system disorders Social History Tobacco Use Types Packs/Day Years Used Date Smoking Tobacco: Never Assessed Alcohol Use Standard Drinks/Week Comments No 0 (1 standard drink = 0.6 oz pur e alcohol) Comments Unknown Sex and Gender Information Value Date Recorded Sex Assigned at Not on file 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 Gender Identity Not on file Sexual Orientation Not on file documented as of this encounter Plan of Treatment Not on file documented as of this encounter Visit Diagnoses Diagnosis Complication from renal dialysis device Surgical operation with anastomosis, bypass, or graft, with natural or artificial tissues used as implant causing abnormal patient reaction, or later complication Place of occurrence, residential institution End-stage renal disease (CMS/HCC) (HCC) 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
--- OUTSIDE RECORDS SUMMARY | 2024-06-27 01:59 | XMS_ITS | Encounter Summary ---
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
--- OUTSIDE RECORDS SUMMARY | 2024-06-27 01:59 | XMS_ITS | Encounter Summary ---
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 Gender Identity Not on file Sexual Orientation Not on file documented as of this encounter Plan of Treatment Not on file documented as of this encounter Visit Diagnoses Diagnosis Other follow-up examination Compression of vein 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
--- OUTSIDE RECORDS SUMMARY | 2024-06-27 01:59 | XMS_ITS | Encounter Summary ---
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); End-stage renal disease (CMS/HCC) (HCC); 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); Mitral valve disorder Social History Tobacco Use Types Packs/Day Years Used Date Smoking Tobacco: Never Assessed Alcohol Use Standard Drinks/Week Comments No 0 (1 standard drink = 0.6 oz pur e alcohol) Comments Unknown Sex and Gender Information Value Date Recorded Sex Assigned at Not on file 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 Gender Identity Not on file Sexual Orientation Not on file documented as of this encounter Plan of Treatment Not on file documented as of this encounter Visit Diagnoses Diagnosis Hemorrhage of rectum and anus 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
--- OUTSIDE RECORDS SUMMARY | 2024-06-27 01:59 | XMS_ITS | Encounter Summary ---
Author Organization [facility] Care Team Providers Care Magnetic Tape Composer Operator Name Role Phone Unavailable Primary Care Provider Unavailabl e Encounter Details Date Type Department Care Team (Late st Contact Info) Description 04/01/2010 - 04/01/2010 11:59 PM CDT Hospital [facility] [address] [facility] [address] [address] [place] [address] Raghav Hart MD [address] 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
--- OUTSIDE RECORDS SUMMARY | 2024-06-27 01:59 | XMS_ITS | Encounter Summary ---
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); End-stage renal disease (CMS/HCC) (HCC) Social History Tobacco Use Types Packs/Day Years Used Date Smoking Tobacco: Never Assessed Alcohol Use Standard Drinks/Week Comments No 0 (1 standard drink = 0.6 oz pur e alcohol) Comments Unknown Sex and Gender Information Value Date Recorded Sex Assigned at Not on file Legal Sex Female 1:13 PM [employer]UST[employer]ER [employer]ICE [employer]IN[employer] Gender Identity Not on file Sexual Orientation Not on file documented as of this encounter Plan of Treatment Not on file documented as of this encounter Procedures Procedure Name Priority Date/Time Associated Diagnosis Comments DIAMOND BLENDER VENOUS Routine 01/19/2013 9:34 AM CDT DIAMOND BLENDER VENOUS Routine 01/19/2013 9:34 AM CDT DIAMOND BLENDER VENOUS Routine 01/19/2013 9:34 AM CDT ANGIO ARTERIOVENOUS SHUNT Routine 01/19/2013 9:34 AM CDT ANGIO ADDITIONAL SELECTIVE Routine 01/19/2013 9:34 AM CDT documented in this encounter Results * Angiogram Additional Selective (01/19/2013 9:34 AM CDT) Anatomical Region Laterality Modality Body N/A X-Ray Angiograph y 01/19/2013 9:34 AM CDT Narrative 01/20/2013 11:44 AM CDT IMAGES NOT AVAILABLE IN CLINICAL DESKTOP ? FILM(S) AVAILABLE IN RADIOLOGY Acc# [id number] ASMITA 0007 - ANGIO SELECT EACH ADD VESSEL ? RESULT: \ ??IMPRESSION: \ Acc# [id number] ASMITA 0117 - IR Angioplasty Venous ? RESULT: \ ??IMPRESSION: \ Acc# [id number] ASMITA 0117 - IR Angioplasty Venous ? RESULT: \ ??IMPRESSION: \ Acc# [id number] ASMITA 0117 - IR Angioplasty Venous ? RESULT: \ ??IMPRESSION: \ Acc#: ??[id number] ASMITA 0191 - IR AV Fistulagram L ?? DATE OF EXAM: ??Jan 19 2013 ??9:34AM DIAGNOSIS: ??ESRD CLINICAL HISTORY: ?? 10 week check ?? RESULT: \ EXAMINATION: ?? DIALYSIS FISTULOGRAM AND ANGIOPLASTY DATE: ?? 01/19/2013. HISTORY: ??77-year-old female with left upper extremity arteriovenous fistula, status post intervention on 11/10/2012. ??The patient requires angioplasty approximately every 8-10 weeks for the recurring stenoses. ?? Fistulogram with possible intervention is requested. FLUOROSCOPY TIME: ??1.7 minutes. TECHNIQUE: ??The risks, benefits, and alternatives were discussed and informed consent was obtained. ??Prior to beginning the procedure, [place] Protocol was performed to confirm the patient's identity and the planned procedure. ??Maximum sterile barriers including cap, mask, hand hygiene, sterile gloves, sterile gown, large sterile drape, and 2% chlorhexidine for cutaneous antisepsis were used. The skin over the left upper extremity dialysis arteriovenous fistula was infiltrated with 1% lidocaine. ??Access was obtained using a micropuncture needle followed by placement of a 5 Fr catheter. ??Fluoroscopy was used for all catheter and guidewire manipulations. ??Multiple DSA images were obtained to visualize the dialysis access from the arterial anastomosis ?? through the superior vena cava. ?? 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 ??Conscious sedation was administered using aliquots of Versed and Fentanyl at a procedure start time of 8:46 a.m. and end time of 9:26 a.m. ??The total administered dose of Versed was 0.5 milligrams and the total administered dose of fentanyl was 75 micrograms. The patient was monitored throughout the entirety of the procedure by the specials procedure nurse in addition to the physician performing the procedure. The moderate focal stenosis involving the left brachiocephalic vein and mild focal stenosis involving the left subclavian vein were dilated using a 14 mm high pressure balloon. ??Repeat venography was performed. ??Next, a 10 mm high pressure balloon was used to angioplasty the mild focal stenosis involving the outflow vein at the mid humeral level. ??Repeat DSA images were obtained. ??At the end of the ??procedure, a pursestring suture was placed around the entry site and hemostasis was achieved. ??A sterile dressing was applied. 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 ??A mild focal stenosis involves the left subclavian vein. ??Additionally, a mild focal stenosis involves the outflow vein at the mid humeral level. ??Mild left upper thoracic and left upper extremity collateralization is noted. The arterial anastomosis is patent and normal in caliber. ?? Post angioplasty images show a good response with a patent vein. ??There was resolution of the moderate left brachiocephalic vein, mild left subclavian vein, and mild outflow vein at the mid humeral level stenoses. IMPRESSION: SUCCESSFUL ANGIOPLASTY OF THE MODERATE LEFT BRACHIOCEPHALIC, MILD LEFT SUBCLAVIAN AND MILD OUTFLOW VEIN STENOSES, DESCRIBED ABOVE. ?? PLAN: Flow within the dialysis access should be monitored and used to guide decisions ??about the need for repeat intervention. The patient should follow-up with [facility] Interventional Radiology in 10 weeks. ?? The patient's left upper extremity pursestring suture can be removed in 3-5 days. ? MICROFILM CLERK: ??DM2 TRANSCRIBE DATE/TIME: ??Jan 19 2013 ??1:53P RADIOLOGIST: ??MELIDA ENNIS M.D. ??READ ON: ??Jan 19 2013 ??9:48A ORDERING DR: CULLEN PAYNE M.D. THIS DOCUMENT HAS BEEN ELECTRONICALLY SIGNED BY: ??MELIDA ENNIS M.D. ??ON: ??Jan 20 2013 11:44A Requesting Fax: ??[phone] Procedure Note Provider, MD Diego - 10/30/2016 IMAGES NOT AVAILABLE IN CLINICAL DESKTOP FILM(S) AVAILABLE IN RADIOLOGY Acc# [id number] ASMITA 0007 - ANGIO SELECT EACH ADD VESSEL RESULT: \ IMPRESSION: \ Acc# [id number] ASMITA 0117 - IR Angioplasty Venous RESULT: \ IMPRESSION: \ Acc# [id number] ASMITA 0117 - IR Angioplasty Venous RESULT: \ IMPRESSION: \ Acc# [id number] ASMITA 0117 - IR Angioplasty Venous RESULT: \ IMPRESSION: \ Acc#: [id number] ASMITA 0191 - IR AV Fistulagram L DATE OF EXAM: Jan 19 2013 9:34AM DIAGNOSIS: ESRD CLINICAL HISTORY: 10 week check RESULT: \ EXAMINATION: DIALYSIS FISTULOGRAM AND ANGIOPLASTY DATE: 01/19/2013. HISTORY: 77-year-old female with left upper extremity arteriovenous fistula, status post intervention on 11/10/2012. The patient requires angioplasty approximately every 8-10 weeks for the recurring stenoses. Fistulogram with possible intervention is requested. FLUOROSCOPY TIME: 1.7 minutes. TECHNIQUE: The risks, benefits, and alternatives were discussed and informed consent was obtained. Prior to beginning the procedure, [place] Protocol was performed to confirm the patient's identity and the planned procedure. Maximum sterile barriers including cap, mask, hand hygiene, sterile gloves, sterile gown, large sterile drape, and 2% chlorhexidine for cutaneous antisepsis were used. The skin over the left upper extremity dialysis arteriovenous fistula was infiltrated with 1% lidocaine. Access was obtained using a micropuncture needle followed by placement of a 5 Fr catheter. Fluoroscopy was used for all catheter and guidewire manipulations. Multiple DSA images were obtained to visualize the dialysis access from the arterial anastomosis through the superior vena cava. 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 Conscious sedation was administered using aliquots of Versed and Fentanyl at a procedure start time of 8:46 a.m. and end time of 9:26 a.m. The total administered dose of Versed was 0.5 milligrams and the total administered dose of fentanyl was 75 micrograms. The patient was monitored throughout the entirety of the procedure by the specials procedure nurse in addition to the physician performing the procedure. The moderate focal stenosis involving the left brachiocephalic vein and mild focal stenosis involving the left subclavian vein were dilated using a 14 mm high pressure balloon. Repeat venography was performed. Next, a 10 mm high pressure balloon was used to angioplasty the mild focal stenosis involving the outflow vein at the mid humeral level. Repeat DSA images were obtained. At the end of the procedure, a pursestring suture was placed around the entry site and hemostasis was achieved. A sterile dressing was applied. 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 A mild focal stenosis involves the left subclavian vein. Additionally, a mild focal stenosis involves the outflow vein at the mid humeral level. Mild left upper thoracic and left upper extremity collateralization is noted. The arterial anastomosis is patent and normal in caliber. Post angioplasty images show a good response with a patent vein. There was resolution of the moderate left brachiocephalic vein, mild left subclavian vein, and mild outflow vein at the mid humeral level stenoses. IMPRESSION: SUCCESSFUL ANGIOPLASTY OF THE MODERATE LEFT BRACHIOCEPHALIC, MILD LEFT SUBCLAVIAN AND MILD OUTFLOW VEIN STENOSES, DESCRIBED ABOVE. PLAN: Flow within the dialysis access should be monitored and used to guide decisions about the need for repeat intervention. The patient should follow-up with [facility] Interventional Radiology in 10 weeks. The patient's left upper extremity pursestring suture can be removed in 3-5 days. MICROFILM CLERK: JOSE A TRANSCRIBE DATE/TIME: Jan 19 2013 1:53P RADIOLOGIST: MELIDA ENNIS M.D. READ ON: Jan 19 2013 9:48A ORDERING DR: CULLEN PAYNE M.D. THIS DOCUMENT HAS BEEN ELECTRONICALLY SIGNED BY: MELIDA ENNIS M.D. ON: Jan 20 2013 11:44A Requesting us Historical Provider MD JACKSON IR PROCEDURES Final R esult * DIAMOND BLENDER Venous (01/19/2013 9:34 AM CDT) Anatomical Region Laterality Modality Body N/A X-Ray Angiograph y 01/19/2013 9:34 AM CDT Narrative 01/20/2013 11:44 AM CDT IMAGES NOT AVAILABLE IN CLINICAL DESKTOP ? FILM(S) AVAILABLE IN RADIOLOGY Acc# [id number] ASMITA 0007 - ANGIO SELECT EACH ADD VESSEL ? RESULT: \ ??IMPRESSION: \ Acc# [id number] ASMITA 0117 - IR Angioplasty Venous ? RESULT: \ ??IMPRESSION: \ Acc# [id number] ASMITA 0117 - IR Angioplasty Venous ? RESULT: \ ??IMPRESSION: \ Acc# [id number] ASMITA 0117 - IR Angioplasty Venous ? RESULT: \ ??IMPRESSION: \ Acc#: ??[id number] ASMITA 0191 - IR AV Fistulagram L ?? DATE OF EXAM: ??Jan 19 2013 ??9:34AM DIAGNOSIS: ??ESRD CLINICAL HISTORY: ?? 10 week check ?? RESULT: \ EXAMINATION: ?? DIALYSIS FISTULOGRAM AND ANGIOPLASTY DATE: ?? 01/19/2013. HISTORY: ??77-year-old female with left upper extremity arteriovenous fistula, status post intervention on 11/10/2012. ??The patient requires angioplasty approximately every 8-10 weeks for the recurring stenoses. ?? Fistulogram with possible intervention is requested. FLUOROSCOPY TIME: ??1.7 minutes. TECHNIQUE: ??The risks, benefits, and alternatives were discussed and informed consent was obtained. ??Prior to beginning the procedure, [place] Protocol was performed to confirm the patient's identity and the planned procedure. ??Maximum sterile barriers including cap, mask, hand hygiene, sterile gloves, sterile gown, large sterile drape, and 2% chlorhexidine for cutaneous antisepsis were used. The skin over the left upper extremity dialysis arteriovenous fistula was infiltrated with 1% lidocaine. ??Access was obtained using a micropuncture needle followed by placement of a 5 Fr catheter. ??Fluoroscopy was used for all catheter and guidewire manipulations. ??Multiple DSA images were obtained to visualize the dialysis access from the arterial anastomosis ?? through the superior vena cava. ?? 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 ??Conscious sedation was administered using aliquots of Versed and Fentanyl at a procedure start time of 8:46 a.m. and end time of 9:26 a.m. ??The total administered dose of Versed was 0.5 milligrams and the total administered dose of fentanyl was 75 micrograms. The patient was monitored throughout the entirety of the procedure by the specials procedure nurse in addition to the physician performing the procedure. The moderate focal stenosis involving the left brachiocephalic vein and mild focal stenosis involving the left subclavian vein were dilated using a 14 mm high pressure balloon. ??Repeat venography was performed. ??Next, a 10 mm high pressure balloon was used to angioplasty the mild focal stenosis involving the outflow vein at the mid humeral level. ??Repeat DSA images were obtained. ??At the end of the ??procedure, a pursestring suture was placed around the entry site and hemostasis was achieved. ??A sterile dressing was applied. 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 ??A mild focal stenosis involves the left subclavian vein. ??Additionally, a mild focal stenosis involves the outflow vein at the mid humeral level. ??Mild left upper thoracic and left upper extremity collateralization is noted. The arterial anastomosis is patent and normal in caliber. ?? Post angioplasty images show a good response with a patent vein. ??There was resolution of the moderate left brachiocephalic vein, mild left subclavian vein, and mild outflow vein at the mid humeral level stenoses. IMPRESSION: SUCCESSFUL ANGIOPLASTY OF THE MODERATE LEFT BRACHIOCEPHALIC, MILD LEFT SUBCLAVIAN AND MILD OUTFLOW VEIN STENOSES, DESCRIBED ABOVE. ?? PLAN: Flow within the dialysis access should be monitored and used to guide decisions ??about the need for repeat intervention. The patient should follow-up with [facility] Interventional Radiology in 10 weeks. ?? The patient's left upper extremity pursestring suture can be removed in 3-5 days. ? MICROFILM CLERK: ??DM2 TRANSCRIBE DATE/TIME: ??Jan 19 2013 ??1:53P RADIOLOGIST: ??MELIDA ENNIS M.D. ??READ ON: ??Jan 19 2013 ??9:48A ORDERING DR: CULLEN PAYNE M.D. THIS DOCUMENT HAS BEEN ELECTRONICALLY SIGNED BY: ??MELIDA ENNIS M.D. ??ON: ??Jan 20 2013 11:44A Requesting Fax: ??[phone] Procedure Note Provider, MD Diego - 10/30/2016 IMAGES NOT AVAILABLE IN CLINICAL DESKTOP FILM(S) AVAILABLE IN RADIOLOGY Acc# [id number] ASMITA 0007 - ANGIO SELECT EACH ADD VESSEL RESULT: \ IMPRESSION: \ Acc# [id number] ASMITA 0117 - IR Angioplasty Venous RESULT: \ IMPRESSION: \ Acc# [id number] ASMITA 0117 - IR Angioplasty Venous RESULT: \ IMPRESSION: \ Acc# [id number] ASMITA 0117 - IR Angioplasty Venous RESULT: \ IMPRESSION: \ Acc#: [id number] ASMITA 0191 - IR AV Fistulagram L DATE OF EXAM: Jan 19 2013 9:34AM DIAGNOSIS: ESRD CLINICAL HISTORY: 10 week check RESULT: \ EXAMINATION: DIALYSIS FISTULOGRAM AND ANGIOPLASTY DATE: 01/19/2013. HISTORY: 77-year-old female with left upper extremity arteriovenous fistula, status post intervention on 11/10/2012. The patient requires angioplasty approximately every 8-10 weeks for the recurring stenoses. Fistulogram with possible intervention is requested. FLUOROSCOPY TIME: 1.7 minutes. TECHNIQUE: The risks, benefits, and alternatives were discussed and informed consent was obtained. Prior to beginning the procedure, [place] Protocol was performed to confirm the patient's identity and the planned procedure. Maximum sterile barriers including cap, mask, hand hygiene, sterile gloves, sterile gown, large sterile drape, and 2% chlorhexidine for cutaneous antisepsis were used. The skin over the left upper extremity dialysis arteriovenous fistula was infiltrated with 1% lidocaine. Access was obtained using a micropuncture needle followed by placement of a 5 Fr catheter. Fluoroscopy was used for all catheter and guidewire manipulations. Multiple DSA images were obtained to visualize the dialysis access from the arterial anastomosis through the superior vena cava. 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 Conscious sedation was administered using aliquots of Versed and Fentanyl at a procedure start time of 8:46 a.m. and end time of 9:26 a.m. The total administered dose of Versed was 0.5 milligrams and the total administered dose of fentanyl was 75 micrograms. The patient was monitored throughout the entirety of the procedure by the specials procedure nurse in addition to the physician performing the procedure. The moderate focal stenosis involving the left brachiocephalic vein and mild focal stenosis involving the left subclavian vein were dilated using a 14 mm high pressure balloon. Repeat venography was performed. Next, a 10 mm high pressure balloon was used to angioplasty the mild focal stenosis involving the outflow vein at the mid humeral level. Repeat DSA images were obtained. At the end of the procedure, a pursestring suture was placed around the entry site and hemostasis was achieved. A sterile dressing was applied. 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 A mild focal stenosis involves the left subclavian vein. Additionally, a mild focal stenosis involves the outflow vein at the mid humeral level. Mild left upper thoracic and left upper extremity collateralization is noted. The arterial anastomosis is patent and normal in caliber. Post angioplasty images show a good response with a patent vein. There was resolution of the moderate left brachiocephalic vein, mild left subclavian vein, and mild outflow vein at the mid humeral level stenoses. IMPRESSION: SUCCESSFUL ANGIOPLASTY OF THE MODERATE LEFT BRACHIOCEPHALIC, MILD LEFT SUBCLAVIAN AND MILD OUTFLOW VEIN STENOSES, DESCRIBED ABOVE. PLAN: Flow within the dialysis access should be monitored and used to guide decisions about the need for repeat intervention. The patient should follow-up with [facility] Interventional Radiology in 10 weeks. The patient's left upper extremity pursestring suture can be removed in 3-5 days. MICROFILM CLERK: JOSE A TRANSCRIBE DATE/TIME: Jan 19 2013 1:53P RADIOLOGIST: MELIDA ENNIS M.D. READ ON: Jan 19 2013 9:48A ORDERING DR: CULLEN PAYNE M.D. THIS DOCUMENT HAS BEEN ELECTRONICALLY SIGNED BY: MELIDA ENNIS M.D. ON: Jan 20 2013 11:44A Requesting us Historical Provider MD JACKSON IR PROCEDURES Final R esult * DIAMOND BLENDER Venous (01/19/2013 9:34 AM CDT) Anatomical Region Laterality Modality Body N/A X-Ray Angiograph y 01/19/2013 9:34 AM CDT Narrative 01/20/2013 11:44 AM CDT IMAGES NOT AVAILABLE IN CLINICAL DESKTOP ? FILM(S) AVAILABLE IN RADIOLOGY Acc# [id number] ASMITA 0007 - ANGIO SELECT EACH ADD VESSEL ? RESULT: \ ??IMPRESSION: \ Acc# [id number] ASMITA 0117 - IR Angioplasty Venous ? RESULT: \ ??IMPRESSION: \ Acc# [id number] ASMITA 0117 - IR Angioplasty Venous ? RESULT: \ ??IMPRESSION: \ Acc# [id number] ASMITA 0117 - IR Angioplasty Venous ? RESULT: \ ??IMPRESSION: \ Acc#: ??[id number] ASMITA 0191 - IR AV Fistulagram L ?? DATE OF EXAM: ??Jan 19 2013 ??9:34AM DIAGNOSIS: ??ESRD CLINICAL HISTORY: ?? 10 week check ?? RESULT: \ EXAMINATION: ?? DIALYSIS FISTULOGRAM AND ANGIOPLASTY DATE: ?? 01/19/2013. HISTORY: ??77-year-old female with left upper extremity arteriovenous fistula, status post intervention on 11/10/2012. ??The patient requires angioplasty approximately every 8-10 weeks for the recurring stenoses. ?? Fistulogram with possible intervention is requested. FLUOROSCOPY TIME: ??1.7 minutes. TECHNIQUE: ??The risks, benefits, and alternatives were discussed and informed consent was obtained. ??Prior to beginning the procedure, [place] Protocol was performed to confirm the patient's identity and the planned procedure. ??Maximum sterile barriers including cap, mask, hand hygiene, sterile gloves, sterile gown, large sterile drape, and 2% chlorhexidine for cutaneous antisepsis were used. The skin over the left upper extremity dialysis arteriovenous fistula was infiltrated with 1% lidocaine. ??Access was obtained using a micropuncture needle followed by placement of a 5 Fr catheter. ??Fluoroscopy was used for all catheter and guidewire manipulations. ??Multiple DSA images were obtained to visualize the dialysis access from the arterial anastomosis ?? through the superior vena cava. ?? 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 ??Conscious sedation was administered using aliquots of Versed and Fentanyl at a procedure start time of 8:46 a.m. and end time of 9:26 a.m. ??The total administered dose of Versed was 0.5 milligrams and the total administered dose of fentanyl was 75 micrograms. The patient was monitored throughout the entirety of the procedure by the specials procedure nurse in addition to the physician performing the procedure. The moderate focal stenosis involving the left brachiocephalic vein and mild focal stenosis involving the left subclavian vein were dilated using a 14 mm high pressure balloon. ??Repeat venography was performed. ??Next, a 10 mm high pressure balloon was used to angioplasty the mild focal stenosis involving the outflow vein at the mid humeral level. ??Repeat DSA images were obtained. ??At the end of the ??procedure, a pursestring suture was placed around the entry site and hemostasis was achieved. ??A sterile dressing was applied. 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 ??A mild focal stenosis involves the left subclavian vein. ??Additionally, a mild focal stenosis involves the outflow vein at the mid humeral level. ??Mild left upper thoracic and left upper extremity collateralization is noted. The arterial anastomosis is patent and normal in caliber. ?? Post angioplasty images show a good response with a patent vein. ??There was resolution of the moderate left brachiocephalic vein, mild left subclavian vein, and mild outflow vein at the mid humeral level stenoses. IMPRESSION: SUCCESSFUL ANGIOPLASTY OF THE MODERATE LEFT BRACHIOCEPHALIC, MILD LEFT SUBCLAVIAN AND MILD OUTFLOW VEIN STENOSES, DESCRIBED ABOVE. ?? PLAN: Flow within the dialysis access should be monitored and used to guide decisions ??about the need for repeat intervention. The patient should follow-up with [facility] Interventional Radiology in 10 weeks. ?? The patient's left upper extremity pursestring suture can be removed in 3-5 days. ? MICROFILM CLERK: ??DM2 TRANSCRIBE DATE/TIME: ??Jan 19 2013 ??1:53P RADIOLOGIST: ??MELIDA ENNIS M.D. ??READ ON: ??Jan 19 2013 ??9:48A ORDERING DR: CULLEN PAYNE M.D. THIS DOCUMENT HAS BEEN ELECTRONICALLY SIGNED BY: ??MELIDA ENNIS M.D. ??ON: ??Jan 20 2013 11:44A Requesting Fax: ??[phone] Procedure Note Provider, MD Diego - 10/30/2016 IMAGES NOT AVAILABLE IN CLINICAL DESKTOP FILM(S) AVAILABLE IN RADIOLOGY Acc# [id number] ASMITA 0007 - ANGIO SELECT EACH ADD VESSEL RESULT: \ IMPRESSION: \ Acc# [id number] ASMITA 0117 - IR Angioplasty Venous RESULT: \ IMPRESSION: \ Acc# [id number] ASMITA 0117 - IR Angioplasty Venous RESULT: \ IMPRESSION: \ Acc# [id number] ASMITA 0117 - IR Angioplasty Venous RESULT: \ IMPRESSION: \ Acc#: [id number] ASMITA 0191 - IR AV Fistulagram L DATE OF EXAM: Jan 19 2013 9:34AM DIAGNOSIS: ESRD CLINICAL HISTORY: 10 week check RESULT: \ EXAMINATION: DIALYSIS FISTULOGRAM AND ANGIOPLASTY DATE: 01/19/2013. HISTORY: 77-year-old female with left upper extremity arteriovenous fistula, status post intervention on 11/10/2012. The patient requires angioplasty approximately every 8-10 weeks for the recurring stenoses. Fistulogram with possible intervention is requested. FLUOROSCOPY TIME: 1.7 minutes. TECHNIQUE: The risks, benefits, and alternatives were discussed and informed consent was obtained. Prior to beginning the procedure, [place] Protocol was performed to confirm the patient's identity and the planned procedure. Maximum sterile barriers including cap, mask, hand hygiene, sterile gloves, sterile gown, large sterile drape, and 2% chlorhexidine for cutaneous antisepsis were used. The skin over the left upper extremity dialysis arteriovenous fistula was infiltrated with 1% lidocaine. Access was obtained using a micropuncture needle followed by placement of a 5 Fr catheter. Fluoroscopy was used for all catheter and guidewire manipulations. Multiple DSA images were obtained to visualize the dialysis access from the arterial anastomosis through the superior vena cava. 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 Conscious sedation was administered using aliquots of Versed and Fentanyl at a procedure start time of 8:46 a.m. and end time of 9:26 a.m. The total administered dose of Versed was 0.5 milligrams and the total administered dose of fentanyl was 75 micrograms. The patient was monitored throughout the entirety of the procedure by the specials procedure nurse in addition to the physician performing the procedure. The moderate focal stenosis involving the left brachiocephalic vein and mild focal stenosis involving the left subclavian vein were dilated using a 14 mm high pressure balloon. Repeat venography was performed. Next, a 10 mm high pressure balloon was used to angioplasty the mild focal stenosis involving the outflow vein at the mid humeral level. Repeat DSA images were obtained. At the end of the procedure, a pursestring suture was placed around the entry site and hemostasis was achieved. A sterile dressing was applied. 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 A mild focal stenosis involves the left subclavian vein. Additionally, a mild focal stenosis involves the outflow vein at the mid humeral level. Mild left upper thoracic and left upper extremity collateralization is noted. The arterial anastomosis is patent and normal in caliber. Post angioplasty images show a good response with a patent vein. There was resolution of the moderate left brachiocephalic vein, mild left subclavian vein, and mild outflow vein at the mid humeral level stenoses. IMPRESSION: SUCCESSFUL ANGIOPLASTY OF THE MODERATE LEFT BRACHIOCEPHALIC, MILD LEFT SUBCLAVIAN AND MILD OUTFLOW VEIN STENOSES, DESCRIBED ABOVE. PLAN: Flow within the dialysis access should be monitored and used to guide decisions about the need for repeat intervention. The patient should follow-up with [facility] Interventional Radiology in 10 weeks. The patient's left upper extremity pursestring suture can be removed in 3-5 days. MICROFILM CLERK: JOSE A TRANSCRIBE DATE/TIME: Jan 19 2013 1:53P RADIOLOGIST: MELIDA ENNIS M.D. READ ON: Jan 19 2013 9:48A ORDERING DR: CULLEN PAYNE M.D. THIS DOCUMENT HAS BEEN ELECTRONICALLY SIGNED BY: MELIDA ENNIS M.D. ON: Jan 20 2013 11:44A Requesting us Historical Provider MD JACKSON IR PROCEDURES Final R esult * DIAMOND BLENDER Venous (01/19/2013 9:34 AM CDT) Anatomical Region Laterality Modality Body N/A X-Ray Angiograph y 01/19/2013 9:34 AM CDT Narrative 01/20/2013 11:44 AM CDT IMAGES NOT AVAILABLE IN CLINICAL DESKTOP ? FILM(S) AVAILABLE IN RADIOLOGY Acc# [id number] ASMITA 0007 - ANGIO SELECT EACH ADD VESSEL ? RESULT: \ ??IMPRESSION: \ Acc# [id number] ASMITA 0117 - IR Angioplasty Venous ? RESULT: \ ??IMPRESSION: \ Acc# [id number] ASMITA 0117 - IR Angioplasty Venous ? RESULT: \ ??IMPRESSION: \ Acc# [id number] ASMITA 0117 - IR Angioplasty Venous ? RESULT: \ ??IMPRESSION: \ Acc#: ??[id number] ASMITA [id number] - IR AV Fistulagram L ?? DATE OF EXAM: ??Jan 19 2013 ??9:34AM DIAGNOSIS: ??ESRD CLINICAL HISTORY: ?? 10 week check ?? RESULT: \ EXAMINATION: ?? DIALYSIS FISTULOGRAM AND ANGIOPLASTY DATE: ?? 01/19/2013. HISTORY: ??77-year-old female with left upper extremity arteriovenous fistula, status post intervention on 11/10/2012. ??The patient requires angioplasty approximately every 8-10 weeks for the recurring stenoses. ?? Fistulogram with possible intervention is requested. FLUOROSCOPY TIME: ??1.7 minutes. TECHNIQUE: ??The risks, benefits, and alternatives were discussed and informed consent was obtained. ??Prior to beginning the procedure, [place] Protocol was performed to confirm the patient's identity and the planned procedure. ??Maximum sterile barriers including cap, mask, hand hygiene, sterile gloves, sterile gown, large sterile drape, and 2% chlorhexidine for cutaneous antisepsis were used. The skin over the left upper extremity dialysis arteriovenous fistula was infiltrated with 1% lidocaine. ??Access was obtained using a micropuncture needle followed by placement of a 5 Fr catheter. ??Fluoroscopy was used for all catheter and guidewire manipulations. ??Multiple DSA images were obtained to visualize the dialysis access from the arterial anastomosis ?? through the superior vena cava. ?? 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 ??Conscious sedation was administered using aliquots of Versed and Fentanyl at a procedure start time of 8:46 a.m. and end time of 9:26 a.m. ??The total administered dose of Versed was 0.5 milligrams and the total administered dose of fentanyl was 75 micrograms. The patient was monitored throughout the entirety of the procedure by the specials procedure nurse in addition to the physician performing the procedure. The moderate focal stenosis involving the left brachiocephalic vein and mild focal stenosis involving the left subclavian vein were dilated using a 14 mm high pressure balloon. ??Repeat venography was performed. ??Next, a 10 mm high pressure balloon was used to angioplasty the mild focal stenosis involving the outflow vein at the mid humeral level. ??Repeat DSA images were obtained. ??At the end of the ??procedure, a pursestring suture was placed around the entry site and hemostasis was achieved. ??A sterile dressing was applied. 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 ??A mild focal stenosis involves the left subclavian vein. ??Additionally, a mild focal stenosis involves the outflow vein at the mid humeral level. ??Mild left upper thoracic and left upper extremity collateralization is noted. The arterial anastomosis is patent and normal in caliber. ?? Post angioplasty images show a good response with a patent vein. ??There was resolution of the moderate left brachiocephalic vein, mild left subclavian vein, and mild outflow vein at the mid humeral level stenoses. IMPRESSION: SUCCESSFUL ANGIOPLASTY OF THE MODERATE LEFT BRACHIOCEPHALIC, MILD LEFT SUBCLAVIAN AND MILD OUTFLOW VEIN STENOSES, DESCRIBED ABOVE. ?? PLAN: Flow within the dialysis access should be monitored and used to guide decisions ??about the need for repeat intervention. The patient should follow-up with [facility] Interventional Radiology in 10 weeks. ?? The patient's left upper extremity pursestring suture can be removed in 3-5 days. ? MICROFILM CLERK: ??DM2 TRANSCRIBE DATE/TIME: ??Jan 19 2013 ??1:53P RADIOLOGIST: ??MELIDA ENNIS M.D. ??READ ON: ??Jan 19 2013 ??9:48A ORDERING DR: CULLEN PAYNE M.D. THIS DOCUMENT HAS BEEN ELECTRONICALLY SIGNED BY: ??MELIDA ENNIS M.D. ??ON: ??Jan 20 2013 11:44A Requesting Fax: ??[phone] Procedure Note Provider, MD Diego - 10/30/2016 IMAGES NOT AVAILABLE IN CLINICAL DESKTOP FILM(S) AVAILABLE IN RADIOLOGY Acc# [id number] ASMITA 0007 - ANGIO SELECT EACH ADD VESSEL RESULT: \ IMPRESSION: \ Acc# [id number] ASMITA 0117 - IR Angioplasty Venous RESULT: \ IMPRESSION: \ Acc# [id number] ASMITA 0117 - IR Angioplasty Venous RESULT: \ IMPRESSION: \ Acc# [id number] ASMITA 0117 - IR Angioplasty Venous RESULT: \ IMPRESSION: \ Acc#: [id number] ASMITA 0191 - IR AV Fistulagram L DATE OF EXAM: Jan 19 2013 9:34AM DIAGNOSIS: ESRD CLINICAL HISTORY: 10 week check RESULT: \ EXAMINATION: DIALYSIS FISTULOGRAM AND ANGIOPLASTY DATE: 01/19/2013. HISTORY: 77-year-old female with left upper extremity arteriovenous fistula, status post intervention on 11/10/2012. The patient requires angioplasty approximately every 8-10 weeks for the recurring stenoses. Fistulogram with possible intervention is requested. FLUOROSCOPY TIME: 1.7 minutes. TECHNIQUE: The risks, benefits, and alternatives were discussed and informed consent was obtained. Prior to beginning the procedure, [place] Protocol was performed to confirm the patient's identity and the planned procedure. Maximum sterile barriers including cap, mask, hand hygiene, sterile gloves, sterile gown, large sterile drape, and 2% chlorhexidine for cutaneous antisepsis were used. The skin over the left upper extremity dialysis arteriovenous fistula was infiltrated with 1% lidocaine. Access was obtained using a micropuncture needle followed by placement of a 5 Fr catheter. Fluoroscopy was used for all catheter and guidewire manipulations. Multiple DSA images were obtained to visualize the dialysis access from the arterial anastomosis through the superior vena cava. 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 Conscious sedation was administered using aliquots of Versed and Fentanyl at a procedure start time of 8:46 a.m. and end time of 9:26 a.m. The total administered dose of Versed was 0.5 milligrams and the total administered dose of fentanyl was 75 micrograms. The patient was monitored throughout the entirety of the procedure by the specials procedure nurse in addition to the physician performing the procedure. The moderate focal stenosis involving the left brachiocephalic vein and mild focal stenosis involving the left subclavian vein were dilated using a 14 mm high pressure balloon. Repeat venography was performed. Next, a 10 mm high pressure balloon was used to angioplasty the mild focal stenosis involving the outflow vein at the mid humeral level. Repeat DSA images were obtained. At the end of the procedure, a pursestring suture was placed around the entry site and hemostasis was achieved. A sterile dressing was applied. 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 A mild focal stenosis involves the left subclavian vein. Additionally, a mild focal stenosis involves the outflow vein at the mid humeral level. Mild left upper thoracic and left upper extremity collateralization is noted. The arterial anastomosis is patent and normal in caliber. Post angioplasty images show a good response with a patent vein. There was resolution of the moderate left brachiocephalic vein, mild left subclavian vein, and mild outflow vein at the mid humeral level stenoses. IMPRESSION: SUCCESSFUL ANGIOPLASTY OF THE MODERATE LEFT BRACHIOCEPHALIC, MILD LEFT SUBCLAVIAN AND MILD OUTFLOW VEIN STENOSES, DESCRIBED ABOVE. PLAN: Flow within the dialysis access should be monitored and used to guide decisions about the need for repeat intervention. The patient should follow-up with [facility] Interventional Radiology in 10 weeks. The patient's left upper extremity pursestring suture can be removed in 3-5 days. MICROFILM CLERK: JOSE A TRANSCRIBE DATE/TIME: Jan 19 2013 1:53P RADIOLOGIST: MELIDA ENNIS M.D. READ ON: Jan 19 2013 9:48A ORDERING DR: CULLEN PAYNE M.D. THIS DOCUMENT HAS BEEN ELECTRONICALLY SIGNED BY: MELIDA ENNIS M.D. ON: Jan 20 2013 11:44A Requesting us Historical Provider MD JACKSON IR PROCEDURES Final R esult * Angiogram Arteriovenous Shunt (01/19/2013 9:34 AM CDT) Anatomical Region Laterality Modality Body N/A X-Ray Angiograph y 01/19/2013 9:34 AM CDT Narrative 01/20/2013 11:44 AM CDT IMAGES NOT AVAILABLE IN CLINICAL DESKTOP ? FILM(S) AVAILABLE IN RADIOLOGY Acc# [id number] ASMITA 0007 - ANGIO SELECT EACH ADD VESSEL ? RESULT: \ ??IMPRESSION: \ Acc# [id number] ASMITA 0117 - IR Angioplasty Venous ? RESULT: \ ??IMPRESSION: \ Acc# [id number] ASMITA 0117 - IR Angioplasty Venous ? RESULT: \ ??IMPRESSION: \ Acc# [id number] ASMITA 0117 - IR Angioplasty Venous ? RESULT: \ ??IMPRESSION: \ Acc#: ??[id number] ASMITA 0191 - IR AV Fistulagram L ?? DATE OF EXAM: ??Jan 19 2013 ??9:34AM DIAGNOSIS: ??ESRD CLINICAL HISTORY: ?? 10 week check ?? RESULT: \ EXAMINATION: ?? DIALYSIS FISTULOGRAM AND ANGIOPLASTY DATE: ?? 01/19/2013. HISTORY: ??77-year-old female with left upper extremity arteriovenous fistula, status post intervention on 11/10/2012. ??The patient requires angioplasty approximately every 8-10 weeks for the recurring stenoses. ?? Fistulogram with possible intervention is requested. FLUOROSCOPY TIME: ??1.7 minutes. TECHNIQUE: ??The risks, benefits, and alternatives were discussed and informed consent was obtained. ??Prior to beginning the procedure, [place] Protocol was performed to confirm the patient's identity and the planned procedure. ??Maximum sterile barriers including cap, mask, hand hygiene, sterile gloves, sterile gown, large sterile drape, and 2% chlorhexidine for cutaneous antisepsis were used. The skin over the left upper extremity dialysis arteriovenous fistula was infiltrated with 1% lidocaine. ??Access was obtained using a micropuncture needle followed by placement of a 5 Fr catheter. ??Fluoroscopy was used for all catheter and guidewire manipulations. ??Multiple DSA images were obtained to visualize the dialysis access from the arterial anastomosis ?? through the superior vena cava. ?? 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 ??Conscious sedation was administered using aliquots of Versed and Fentanyl at a procedure start time of 8:46 a.m. and end time of 9:26 a.m. ??The total administered dose of Versed was 0.5 milligrams and the total administered dose of fentanyl was 75 micrograms. The patient was monitored throughout the entirety of the procedure by the specials procedure nurse in addition to the physician performing the procedure. The moderate focal stenosis involving the left brachiocephalic vein and mild focal stenosis involving the left subclavian vein were dilated using a 14 mm high pressure balloon. ??Repeat venography was performed. ??Next, a 10 mm high pressure balloon was used to angioplasty the mild focal stenosis involving the outflow vein at the mid humeral level. ??Repeat DSA images were obtained. ??At the end of the ??procedure, a pursestring suture was placed around the entry site and hemostasis was achieved. ??A sterile dressing was applied. 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 ??A mild focal stenosis involves the left subclavian vein. ??Additionally, a mild focal stenosis involves the outflow vein at the mid humeral level. ??Mild left upper thoracic and left upper extremity collateralization is noted. The arterial anastomosis is patent and normal in caliber. ?? Post angioplasty images show a good response with a patent vein. ??There was resolution of the moderate left brachiocephalic vein, mild left subclavian vein, and mild outflow vein at the mid humeral level stenoses. IMPRESSION: SUCCESSFUL ANGIOPLASTY OF THE MODERATE LEFT BRACHIOCEPHALIC, MILD LEFT SUBCLAVIAN AND MILD OUTFLOW VEIN STENOSES, DESCRIBED ABOVE. ?? PLAN: Flow within the dialysis access should be monitored and used to guide decisions ??about the need for repeat intervention. The patient should follow-up with [facility] Interventional Radiology in 10 weeks. ?? The patient's left upper extremity pursestring suture can be removed in 3-5 days. ? MICROFILM CLERK: ??DM2 TRANSCRIBE DATE/TIME: ??Jan 19 2013 ??1:53P RADIOLOGIST: ??MELIDA ENNIS M.D. ??READ ON: ??Jan 19 2013 ??9:48A ORDERING DR: CULLEN PAYNE M.D. THIS DOCUMENT HAS BEEN ELECTRONICALLY SIGNED BY: ??MELIDA ENNIS M.D. ??ON: ??Jan 20 2013 11:44A Requesting Fax: ??[phone] Procedure Note Provider, MD Diego - 10/30/2016 IMAGES NOT AVAILABLE IN CLINICAL DESKTOP FILM(S) AVAILABLE IN RADIOLOGY Acc# [id number] ASMITA 0007 - ANGIO SELECT EACH ADD VESSEL RESULT: \ IMPRESSION: \ Acc# [id number] ASMITA 0117 - IR Angioplasty Venous RESULT: \ IMPRESSION: \ Acc# [id number] ASMITA 0117 - IR Angioplasty Venous RESULT: \ IMPRESSION: \ Acc# [id number] ASMITA 0117 - IR Angioplasty Venous RESULT: \ IMPRESSION: \ Acc#: [id number] ASMITA 0191 - IR AV Fistulagram L DATE OF EXAM: Jan 19 2013 9:34AM DIAGNOSIS: ESRD CLINICAL HISTORY: 10 week check RESULT: \ EXAMINATION: DIALYSIS FISTULOGRAM AND ANGIOPLASTY DATE: 01/19/2013. HISTORY: 77-year-old female with left upper extremity arteriovenous fistula, status post intervention on 11/10/2012. The patient requires angioplasty approximately every 8-10 weeks for the recurring stenoses. Fistulogram with possible intervention is requested. FLUOROSCOPY TIME: 1.7 minutes. TECHNIQUE: The risks, benefits, and alternatives were discussed and informed consent was obtained. Prior to beginning the procedure, [place] Protocol was performed to confirm the patient's identity and the planned procedure. Maximum sterile barriers including cap, mask, hand hygiene, sterile gloves, sterile gown, large sterile drape, and 2% chlorhexidine for cutaneous antisepsis were used. The skin over the left upper extremity dialysis arteriovenous fistula was infiltrated with 1% lidocaine. Access was obtained using a micropuncture needle followed by placement of a 5 Fr catheter. Fluoroscopy was used for all catheter and guidewire manipulations. Multiple DSA images were obtained to visualize the dialysis access from the arterial anastomosis through the superior vena cava. 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 Conscious sedation was administered using aliquots of Versed and Fentanyl at a procedure start time of 8:46 a.m. and end time of 9:26 a.m. The total administered dose of Versed was 0.5 milligrams and the total administered dose of fentanyl was 75 micrograms. The patient was monitored throughout the entirety of the procedure by the specials procedure nurse in addition to the physician performing the procedure. The moderate focal stenosis involving the left brachiocephalic vein and mild focal stenosis involving the left subclavian vein were dilated using a 14 mm high pressure balloon. Repeat venography was performed. Next, a 10 mm high pressure balloon was used to angioplasty the mild focal stenosis involving the outflow vein at the mid humeral level. Repeat DSA images were obtained. At the end of the procedure, a pursestring suture was placed around the entry site and hemostasis was achieved. A sterile dressing was applied. 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 A mild focal stenosis involves the left subclavian vein. Additionally, a mild focal stenosis involves the outflow vein at the mid humeral level. Mild left upper thoracic and left upper extremity collateralization is noted. The arterial anastomosis is patent and normal in caliber. Post angioplasty images show a good response with a patent vein. There was resolution of the moderate left brachiocephalic vein, mild left subclavian vein, and mild outflow vein at the mid humeral level stenoses. IMPRESSION: SUCCESSFUL ANGIOPLASTY OF THE MODERATE LEFT BRACHIOCEPHALIC, MILD LEFT SUBCLAVIAN AND MILD OUTFLOW VEIN STENOSES, DESCRIBED ABOVE. PLAN: Flow within the dialysis access should be monitored and used to guide decisions about the need for repeat intervention. The patient should follow-up with [facility] Interventional Radiology in 10 weeks. The patient's left upper extremity pursestring suture can be removed in 3-5 days. MICROFILM CLERK: JOSE A TRANSCRIBE DATE/TIME: Jan 19 2013 1:53P RADIOLOGIST: MELIDA ENNIS M.D. READ ON: Jan 19 2013 9:48A ORDERING DR: CULLEN PAYNE M.D. THIS DOCUMENT HAS BEEN ELECTRONICALLY SIGNED BY: MELIDA ENNIS M.D. 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
--- OUTSIDE RECORDS SUMMARY | 2024-06-27 01:59 | XMS_ITS | Encounter Summary ---
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
--- OUTSIDE RECORDS SUMMARY | 2024-06-27 01:59 | XMS_ITS | Encounter Summary ---
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 renal disease (HCC); Anemia in chronic kidney disease; Congestive heart failure (CMS/HCC) (HCC); Arteritis (CMS/HCC) (HCC); Hypothyroidism; 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) Social History Tobacco Use Types Packs/Day Years Used Date Smoking Tobacco: Never Assessed Alcohol Use Standard Drinks/Week Comments No 0 (1 standard drink = 0.6 oz pur e alcohol) Comments Unknown Sex and Gender Information Value Date Recorded Sex Assigned at Not on file 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 Gender Identity Not on file Sexual Orientation Not on file documented as of this encounter Last Filed Vital Signs Vital Sign Reading Time Taken Comments Blood Pressure 154/80 11/29/2012 3:42 PM CDT Pulse 86 11/29/2012 3:42 PM CDT Temperature - - Respiratory Rate - - Oxygen Saturation - - Inhaled Oxygen Concentration - - Weight 54.6 kg (120 lb 5.9 oz) 11/29/2012 11:26 AM CDT Height 160 cm (5' 2.99 ) 11/29/2012 2:38 AM CDT Body Mass Index 21.33 11/29/2012 2:38 AM CDT documented in this encounter H&P Notes * Provider, MD Diego - 11/29/2012 12:00 AM CDT HISTORY AND PHYSICAL Patient: AMANDA MAKI Account: [id number] Room No: 817-02 : 1935 Patient Type: IP Attending: Matheus Barker M.D. Admit Date: 11/28/2012 Dictating: Clay Khan M.D., F.H.M., F.A.C.P. Disch. Date: HISTORY AND PHYSICAL/SHORT STAY NOTE CHIEF COMPLAINT Shortness of breath. HISTORY OF PRESENT COMPLAINT Ms. Amanda Maki is a 77-year-old lady with end stage renal disease on hemodialysis. She also has vasculitis, has a history of herpes zoster involving the perineum and left hip with post-herpetic pain. She is on three times weekly hemodialysis on Tuesdays, and Saturdays. She had barbecue pork yesterday and started having shortness of breath. She also says that the last time she was dialyzed which was on Thursday, her dry weight had been adjusted and she was dialyzed to a higher weight. On admission, she was having no chest pain, no nausea or vomiting. No orthopnea, no paroxysmal nocturnal dyspnea. She was also status post stress test which showed an ejection fraction of 65% and cardiac cath showed mild coronary artery disease and mild left ventricular end diastolic pressure elevation. In the emergency department, temperature was 98.5, heart rate was 112, respiratory rate was 22, blood pressure was 180/84, then 208/85. Oxygen saturation on room air was 92%. SYSTEMIC REVIEW Ten point systemic review was negative unless otherwise stated. PAST MEDICAL HISTORY 1. End stage renal disease on hemodialysis. 2. Hypertension. 3. Anemia. 4. Vasculitis. 5. Hypothyroidism. 6. Post-herpetic neuralgia. 7. Herpes zoster involving the hip and perineum in 2009. ALLERGIES Codeine, Macrobid, Keflex and tetracaine. MEDICATIONS 1. Norvasc p.o. 10 mg daily. 2. Toprol XL 25 mg daily. 3. Amitriptyline 25 mg q.h.s. 4. Synthroid 100 mcg daily 5. Lisinopril 20 mg b.i.d. 6. Nephrocaps on Thursday, Thursday, Thursday and Thursday. 7. Boniva 150 mg p.o. once a month on the thursday. FAMILY AND SOCIAL HISTORY Does not drink alcohol, does not smoke cigarettes, lives with her family. 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 PHYSICAL EXAMINATION VITAL SIGNS: Blood pressure 160/80, heart rate of 92, respiratory rate of 18, temperature 98.8, elderly lady who is conscious and alert, well oriented. She was pleasant, she is currently on hemodialysis. HEENT: Eyes - Pupils are 3-4 mm, equal and reactive to light. Ears- normal tympanic membranes. Nose - nares patent. Central nonperforated septum. Oral cavity is normal. NECK: Supple. No jugular venous distention. No cervical lymphadenopathy. No thyromegaly. CHEST: Clinically clear, good air entry bilaterally. CARDIOVASCULAR: S1 and S2 are normal. No S3, S4, no gallop and no murmur. ABDOMEN: Soft, nontender, no organ palpably enlarged. Bowel sounds normal and active. EXTREMITIES: No edema. LABORATORY DATA Chest x-ray showed cardiomegaly with pulmonary congestion. There is also blunting of the left costophrenic angle. Troponin is 0.04, 0.04, 0.05, BNP is 1294. Hematocrit is 27.6, hematocrit is 8.5. BMP - BUN 47, glucose 110, sodium 131, potassium 4.5, chloride 90, creatinine 6.05, hepatitis serology is negative. ASSESSMENT AND PLAN All diagnoses present on admission. 1. End stage renal disease on hemodialysis with fluid overload. The patient says that she was not dialyzed to her dry weight and also she had some barbecue pork which increased her fluids. 2. Acute pulmonary edema secondary to acute diastolic failure. 3. Malignant hypertension. 4. Anemia secondary to end stage renal disease. 5. Vascularities. At this juncture, the patient is on hemodialysis and will be discharged after hemodialysis. Will follow up with her primary care physician and also with her supervisor byproducts, Dr. Dias. Clay Khan M.D., F.H.M., F.A.C.P. OO/trini TD: 11/29/2012 12:47 CC: Cullen Dias M.D. Authenticated by Clay Khan MD On 11/30/2012 08:20:27 AM documented in this encounter Consult Notes * Provider, MD Diego - 11/29/2012 12:00 AM CDT CONSULTATION REPORT Patient: AMANDA MAKI Account: [id number] Room No: 817-02 : 1935 Patient Type: IP Attending: Matheus Barker M.D. Admit Date: 11/28/2012 Consult.: Mj Gutierrez MD Disch. Date: NEPHROLOGY CONSULTATION REPORT DATE OF CONSULTATION: November 29, 2012 REQUESTING PHYSICIAN: Dr. Clay Khan. REASON FOR CONSULTATION: End-stage renal disease on dialysis. HISTORY OF PRESENT ILLNESS: The patient is a 77-year-old white female who has chronic kidney disease stage III on hemodialysis Thursday, and Thursday, last treatment was this past Thursday. She was not following a low sodium diet, her weight also has recently been adjusted. She developed short of breath requiring hospitalization on November 28, 2012. She was found to be in congestive heart failure requiring urgent hemodialysis. Due to this, nephrology consultation was requested. Upon interview, the patient denies recent history of fever or shaking chills, light-headedness, dizziness, vision change, headache. She does complain of shortness of breath but denies chest pain, nausea or vomiting, abdominal pain, diarrhea. She has end-stage renal disease on dialysis. Denies excessive heat or cold intolerance, pruritus, fatigue, weakness or focal neurological deficits. PAST MEDICAL HISTORY: 1. Chronic kidney disease, stage V requiring hemodialysis on Thursday, and Thursday. 2. Hypertension. 3. Anemia. 4. History of vasculitis. 5. Hypothyroidism. 6. Post-herpetic neuralgia. 7. Herpes zoster involving the hip and perineum in 2010. MEDICATIONS: Norvasc, Toprol, amitriptyline, Synthroid, lisinopril, Nephrocaps, and Boniva. ALLERGIES: CODEINE, MACROBID, KEFLEX, AND TETRACAINE. SOCIAL HISTORY: No smoking. No alcohol abuse, lives with her family. FAMILY HISTORY: Noncontributory. REVIEW OF SYSTEMS: Please refer to today's note, history of present illness part. PHYSICAL EXAMINATION: Vital signs: Blood pressure 169/80, heart rate 92, respiratory rate 18, temperature 98.8. General: The patient is a 77-year-old white female in no acute distress. The patient was seen and examined during hemodialysis. HEENT: Pupils were equal, round and reactive to light and accommodation. Extraocular movements are intact. Anicteric sclerae. Oropharyngeal mucosal membranes are moist. Neck is supple. No jugular venous distention. Lungs: Clear to auscultation bilaterally. Heart: Regular rhythm and rate. Abdomen: Soft, nontender, and nondistended. Positive bowel sounds. Extremities: No edema. LABORATORY DATA: Labs revealed hemoglobin of 8.5, hematocrit 27.6. Sodium is 135, potassium 45, chloride 920, creatinine 6.05. DIAGNOSTIC STUDIES: Chest x-ray showed pulmonary congestion and with cardiomegaly. IMPRESSION: 1. End-stage renal disease/severe chronic kidney disease requiring dialysis. 2. Congestive heart failure, volume overload/pulmonary congestion due to end-stage renal disease requiring urgent hemodialysis. 3. Anemia due to chronic kidney disease. 4. Hypertension due to volume overload, end-stage renal disease requiring hemodialysis. 5. History of vasculitis. PLAN: Due to her end-stage renal disease, pulmonary edema, respiratory distress, volume overload, we will pursue urgent hemodialysis for fluid removal to improve her respiratory status to avoid deterioration of her respiratory status. The patient should be on a renal diet and fluid restriction. Monitor fluid intake and output closely. The dose of medications should be adjusted according to her renal function and dialysis schedule. Monitor her hemoglobin and hematocrit closely and give transfusion if necessary. For dialysis treatment, will take three to four kilos of fluid as tolerated. I discussed the above plan with the patient and she agrees. Thank you, Dr. Khan, for allowing me to participate in your patient's care. MD MARCO ANTONIO Angeles/etienne TD: 11/30/2012 00:11 documented in this encounter Plan of Treatment Not on file documented as of this encounter Procedures Procedure Name Priority Date/Time Associated Diagnosis Comments SERUM HEPATITIS PANEL Routine 11/29/2012 9:05 AM CDT PLASMA TROPONIN I Routine 11/29/2012 9:0 5 AM CDT PLASMA TROPONIN I Routine 11/29/2012 6:5 5 AM CDT PLASMA TROPONIN I Routine 11/29/2012 2:5 9 AM CDT DISCHARGE LABORATORY CUMULATIVE REPORT 11/29/2012 XR CHEST 1 VIEW Routine 11/28/2012 9:41 PM CDT PLASMA TROPONIN I Routine 11/28/2012 9:1 4 PM CDT PLASMA BASIC METABOLIC PANEL Routine 11/28/2012 9:14 PM CDT BLOOD CELL COUNT (CBC), MORPHOLOGIC EXAM Routine 11/28/2012 9:14 PM CDT BLOOD B-TYPE NATRIURETIC PEPTIDE (BNP) Routine 11/28/2012 9:14 PM CDT ELECTROCARDIOGRAPHY (ECG) 11/28/2012 STAPHYLOCOCCUS SCREEN Routine 11/28/2012 12:00 AM CDT documented in this encounter Results * Serum Hepatitis panel (11/29/2012 9:05 AM CDT) Pathologist [facility] HBV surface ag Negative Negative HISTO RICAL RESULTS HBV core ab, IgM Negative Negative HISTORICAL RESULTS HCV ab Negative Negative HISTORICAL RESULTS HAV ab, IgM Negative Negative HISTORIC AL RESULTS Serum 11/29/2012 9:05 AM CDT Mj Gutierrez MD LAB BLOOD ORDERABLES Final Re sult Performing Organization Address [facility] de Phone Number HISTORICAL RESULTS * Plasma troponin I (11/29/2012 9:05 AM CDT) Pathologist [facility] Troponin I 0.04 0.00 - 0.14 ng/ml HISTORICAL RESULTS Comment: Troponin Reference Ranges: Normal: ?0.00 - 0.14 ng/mL Indeterminate: ?0.15 - 0.50 ng/mL SC / Cardiac Muscle Damage: ?>0.50 ng/mL Plasma 11/29/2012 9:05 AM CDT Dariel Pool MD LAB BLOOD ORDERABLES Fi nal Result Performing Organization Address [facility] de Phone Number HISTORICAL RESULTS * Plasma troponin I (11/29/2012 6:55 AM CDT) Pathologist [facility] Troponin I 0.05 0.00 - 0.14 ng/ml HISTORICAL RESULTS Comment: Troponin Reference Ranges: Normal: ?0.00 - 0.14 ng/mL Indeterminate: ?0.15 - 0.50 ng/mL SC / Cardiac Muscle Damage: ?>0.50 ng/mL Plasma 11/29/2012 6:55 AM CDT Result [facility] Dariel Pool MD LAB BLOOD ORDERABLES Fi nal Result Performing Organization Address [facility] de Phone Number HISTORICAL RESULTS * Plasma troponin I (11/29/2012 2:59 AM CDT) [facility] Troponin I 0.04 0.00 - 0.14 ng/ml HISTORICAL RESULTS Comment: Troponin Reference Ranges: Normal: ?0.00 - 0.14 ng/mL Indeterminate: ?0.15 - 0.50 ng/mL SC / Cardiac Muscle Damage: ?>0.50 ng/mL Plasma 11/29/2012 2:59 AM CDT Result [facility] Dariel Pool MD LAB BLOOD ORDERABLES Fi nal Result Performing Organization Address [facility] de Phone Number HISTORICAL RESULTS * DISCHARGE LABORATORY CUMULATIVE REPORT (11/29/2012) Narrative 11/29/2012 Ordered by an unspecified provider. Result [facility] Historical Provider LAB BLOOD ORDERABLES Paty l Result * XR Chest 1 View (11/28/2012 9:41 PM CDT) Anatomical Region Laterality Modality Body, Chest N/A Radiographic Tomeka ging 11/28/2012 9:41 PM CDT Narrative 11/29/2012 6:26 PM CDT DATE OF EXAM: ??Nov 28 2012 ??9:41PM Acc#: ??[id number] ??EDX 0031 - XR Chest Portable ?? DIAGNOSIS: ??SOB, DIALYSIS ISSUES CLINICAL HISTORY: ?? Cough_Cough ?? RESULT: \ PORTABLE CHEST HISTORY Dyspnea. Examination of the chest in the AP projection shows cardiomegaly is noted with increase in heart size since the previous study. Bilateral infiltrates are identifiable which are most likely due to congestive heart failure. ?? IMPRESSION: ?\ 1. ??CARDIOMEGALY WITH INFILTRATES PROBABLY FROM CONGESTIVE HEART FAILURE. 2. ??BLUNTING LEFT COSTOPHRENIC ANGLE IS NOTED AND IS DUE TO A SMALL EFFUSION. FREIGHT HUSTLER: ??DM2 TRANSCRIBE DATE/TIME: ??Nov 29 2012 12:38P RADIOLOGIST: ??TONY STEWART M.D. ??READ ON: ??Nov 29 2012 12:18P ORDERING DR: DARIEL POOL M.D. THIS DOCUMENT HAS BEEN ELECTRONICALLY SIGNED BY: ??PAT Singleton, TONY ??ON: ??Nov 29 2012 ??6:26P Procedure Note Provider, Diego, - 10/30/2016 DATE OF EXAM: Nov 28 2012 9:41PM Acc#: [id number] EDX 0031 - XR Chest Portable DIAGNOSIS: SOB, DIALYSIS ISSUES CLINICAL HISTORY: Cough_Cough RESULT: \ PORTABLE CHEST HISTORY Dyspnea. Examination of the chest in the AP projection shows cardiomegaly is noted with increase in heart size since the previous study. Bilateral infiltrates are identifiable which are most likely due to congestive heart failure. IMPRESSION: \ 1. CARDIOMEGALY WITH INFILTRATES PROBABLY FROM CONGESTIVE HEART FAILURE. 2. BLUNTING LEFT COSTOPHRENIC ANGLE IS NOTED AND IS DUE TO A SMALL EFFUSION. FREIGHT HUSTLER: DM2 TRANSCRIBE DATE/TIME: Nov 29 2012 12:38P RADIOLOGIST: TONY STEWART M.D. READ ON: Nov 29 2012 12:18P ORDERING DR: DARIEL POOL M.D. THIS DOCUMENT HAS BEEN ELECTRONICALLY SIGNED BY: TONY STEWART M.D. ON: Nov 29 2012 6:26P us Historical Provider IMRadha XR PROCEDURES Final R esult * (ABNORMAL) Blood cell count (CBC), morphologic exam (11/28/2012 9:14 PM CDT) WBC 7.2 5.0 - 10.0 K/cumm HISTORICAL RESULTS RBC 2.75(L) 4.20 - 5.20 M/cumm HISTORICAL RESULTS Hgb 8.5(L) 12.0 - 15.0 g/dl HISTORICAL RESULTS Hct 27.6(L) 37.0 - 47.0 % HISTORICAL RESULTS MCV 100.4(H) 82.0 - 96.0 fl HISTORICAL RESULTS MCH 30.9 27.0 - 32.0 pg HISTORICAL RESULTS MCHC 30.8 29.0 - 35.0 g/dl HISTORICAL RESULTS Platelets 208 150 - 450 K/cumm HISTORICAL RESULTS RDW 54.0(H) 36.4 - 46.3 fl HISTORICAL RESULTS Rdw 14.9(H) 11.5 - 14.5 % HISTORICAL RESULTS MPV 9.8 8.6 - 12.6 fl HISTORICAL RESULTS Neutrophils 84.9 42.0 - 85.0 % HISTORICAL RESULTS Neutrophils, abs 6.1 2.1 - 8.5 K/cumm HISTORICAL RESULTS Lymphocytes 8.1(L) 16.0 - 52.0 % HISTORICAL RESULTS Lymphocytes, abs 0.6(L) 0.8 - 5.2 K/cumm HISTORICAL RESULTS Monos 4.6 1.0 - 13.0 % HISTORICAL RESULTS Monocytes, absolute 0.3 0.0 - 1.3 K/cumm HISTORICAL RESULTS Eosinophils 1.5 0.0 - 7.0 % HISTORICAL RESULTS Eosinophils, abs 0.1 0.0 - 0.7 K/cumm HISTORICAL RESULTS Basophils 0.8 0.0 - 4.0 % HISTORICAL RESULTS Basophils, abs 0.1 0.0 - 0.4 K/cumm HISTORICAL RESULTS Young granulocytes, % 0.1 0.0 - 1.0 % HISTORICAL RESULTS Young granulocyte 0.01 0.00 - 0.10 K/cumm HISTORICAL RESULTS NRBC 0.0 0.0 - 0.2 #/100 WBC HISTORICAL RESULTS NRBC, abs 0.00 0.00 - 0.01 K/cumm HISTORICAL RESULTS Blood specimen (specimen) 11/28/2012 9:14 PM CDT us Dariel Pool MD LAB BLOOD ORDERABLES Fi nal Result HISTORICAL RESULTS * (ABNORMAL) Blood B-type natriuretic peptide (BNP) (11/28/2012 9:14 PM CDT) BNP 1294(H) 0 - 100 pg/ml HISTORICAL RESULTS Blood specimen (specimen) 11/28/2012 9:14 PM CDT Dariel Pool MD LAB BLOOD ORDERABLES nal Result Performing Organization Address [facility] de Phone Number HISTORICAL RESULTS * Plasma troponin I (11/28/2012 9:14 PM CDT) [facility] Troponin I 0.04 0.00 - 0.14 ng/ml HISTORICAL RESULTS Comment: Troponin Reference Ranges: Normal: ?0.00 - 0.14 ng/mL Indeterminate: ?0.15 - 0.50 ng/mL SC / Cardiac Muscle Damage: ?>0.50 ng/mL Plasma 11/28/2012 9:14 PM CDT Dariel Pool MD LAB BLOOD ORDERABLES nal Result Performing Organization Address [facility] de Phone Number HISTORICAL RESULTS * (ABNORMAL) Plasma basic metabolic panel (11/28/2012 9:14 PM CDT) [facility] eGFR 7 90 - 200 ml/min/1.7 3 m2 HISTORICAL RESULTS Comment: If this individual is -[place]os[place], multiply result by 1.21 Repeated results of less than 60 is indicative of chronic kidney disease. MDRD formula has not been validated on individuals greater than 70 years old. BUN 47(H) 8 - 24 mg/dl HISTORICAL RESULTS Glucose 110(H) 70 - 99 mg/dl HISTORICAL RESULTS Sodium 131(L) 135 - 145 mmol/L HISTORICAL RESULTS K, pl 4.5 3.5 - 5.1 mmol/L HISTORICAL RESULTS Chloride 90(L) 100 - 114 mmol/L HISTORICAL RESULTS CO2 28 22 - 32 mmol/L HISTORICAL RESULTS Creatinine 6.05(H) 0.6 - 1.3 mg/dl HISTORICAL RESULTS Calcium 9.3 8.4 - 10.5 mg/dl HISTORICAL RESULTS A. gap 18(H) 8 - 16 mmol/L HISTORICAL RESULTS Plasma 11/28/2012 9:14 PM CDT Dariel Pool MD LAB BLOOD ORDERABLES Fi nal Result Performing Organization Address [facility] Co de Phone Number HISTORICAL RESULTS * Staphylococcus Screen (11/28/2012 12:00 AM CDT) 11/28/2012 Narrative HISTORICAL RESULTS - 11/30/2012 2:00 PM CDT [facility] ?Patient Name: ?AMANDA MAKI ?Med. Rec#: ?? [id number] ?Pt. Acct.#: ??[id number] ?Birthdate: ?? 1935 ?Age / Sex: ?? 77Y / F ?Location: ?[facility] ([facility]) ?Admit Date: ??11/28/2012 ?Discharge Date: ? 11/29/2012 ?Doctor: ?Matheus Barker MD ?Patient Type: ?[facility] Inpatient Culture, Staph Screen for MRSA ? Collected: 11/28/2012 23:51 Specimen: Swab ?? Specimen Source: Nasal Right Status: Final ??Last Update: 11/30/2012 13:08 Culture Result ?? Culture NEGATIVE for Methicillin Resistant Staphylococcus ?? aureus us Historical Provider LAB MICROBIOLOGY - GENERA L ORDERABLES Final Result Performing Organization Address [facility] Co de Phone Number HISTORICAL RESULTS * ELECTROCARDIOGRAPHY (ECG) (11/28/2012) Narrative 11/28/2012 Ordered by an unspecified provider. 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
--- OUTSIDE RECORDS SUMMARY | 2024-06-27 01:59 | XMS_ITS | Encounter Summary ---
Author Organization [facility] Healthcare Address [address] [place] [address] Care Team Providers Care [facility] Former Name Role Phone Burke Rosenberg DO Primary Care Provider [phone] Encounter Details Date Type Department Care Team (Late st Contact Info) Description 11/09/2012 7:33 AM CDT - 11/10/2012 10:43 AM CDT Hospital Encounter CH Cullen Muñoz [place] [id number] [id number] Mechanical complication of vascular device, implant, and graft; Compression of vein; Surgical operation with anastomosis, bypass, or graft, with natural or artificial tissues used as implant causing abnormal patient reaction, or later complication; Unspecified place of occurrence; End-stage renal disease (CMS/HCC) ([facility]) Social History Tobacco Use Types Packs/Day Years Used Date Smoking Tobacco: Never Assessed Alcohol Use Standard Drinks/Week Comments No 0 (1 standard drink = 0.6 oz pur e alcohol) Comments Unknown Sex and Gender Information Value Date Recorded Sex Assigned at Not on file 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 Gender Identity Not on file Sexual Orientation Not on file documented as of this encounter Plan of Treatment Not on file documented as of this encounter Procedures Procedure Name Priority Date/Time Associated Diagnosis Comments VOICE NETWORK ADMINISTRATOR VENOUS Routine 11/10/2012 9:40 AM CDT VOICE NETWORK ADMINISTRATOR VENOUS Routine 11/10/2012 9:40 AM CDT VOICE NETWORK ADMINISTRATOR VENOUS Routine 11/10/2012 9:40 AM CDT ANGIO ARTERIOVENOUS SHUNT Routine 11/10/2012 9:40 AM CDT ANGIO ADDITIONAL SELECTIVE Routine 11/10/2012 9:40 AM CDT documented in this encounter Results * Angiogram Additional Selective (11/10/2012 9:40 AM CDT) Anatomical Region Laterality Modality Body N/A X-Ray Angiograph y 11/10/2012 9:40 AM CDT Narrative 11/10/2012 2:28 PM CDT IMAGES NOT AVAILABLE IN CLINICAL DESKTOP ? FILM(S) AVAILABLE IN RADIOLOGY BUNDLE: Acc#: ??[id number] [facility] 0007 - ANGIO SELECT EACH ADD VESSEL ?? DATE OF EXAM: ??May ??2012 ??9:40AM DIAGNOSIS: ??ESRD CLINICAL HISTORY: ?? - ?? RESULT: \ EXAMINATION: Dialysis fistulogram and angioplasty. DATE: ??11/10/12. 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 The patient presents today for follow-p fistulogram. The patient has had recurrent stenoses that require intervention approximately every 8-10 weeks. ?? FLUOROSCOPY TIME: ??1.2 minutes. ?? TECHNIQUE: ??The risks, benefits, and alternatives were discussed and informed consent was obtained. ??Prior to beginning the procedure, universal protocol was performed to confirm the patient's ??identity and the planned procedure. Maximum sterile barriers including cap, mask, hand hygiene, sterile gloves, sterile gown, large sterile drape, and 2% chlorhexidine for cutaneous antisepsis were used. ?? The skin over the left upper extremity dialysis arteriovenous fistula was infiltrated with 1% lidocaine. Access was obtained using a micropuncture needle followed by placement of a 5 [place]i catheter. ??Fluoroscopy was used for all catheter and guide wire manipulations. ??Multiple DSA images were obtained to visualize the dialysis access from the arterial anastomosis through the superior vena cava. After identifying multiple focal stenosis involving the left brachiocephalic vein, left subclavian vein, and outflow vein at the mid humeral level, a 7 [place]i vascular sheath was placed. Conscious sedation was administered using 0.5 mg of Versed and 50 micrograms of Fentanyl at procedure start time of 9:11 a.m. and end time of 9:40 a.m. ??The patient was monitored throughout the entirety of the procedure by the special procedures nurse in addition to the physician performing the procedure. ?? The moderate focal stenosis involving the left brachiocephalic vein and left subclavian vein were dilated using a 14 mm high pressure balloon. ?? Repeat venography was performed. ??Next, a 10 mm high pressure balloon was used to angioplasty the moderate focal stenosis involving the outflow vein at the mid humeral level. Repeat DSA images were obtained. ??At the end of the procedure, a purse string suture was placed around the entry site, and hemostasis was achieved. A sterile dressing was applied. The patient tolerated the procedure well without complications. FINDINGS: ??Images of the dialysis access show moderate focal flow limiting stenosis involving the left brachiocephalic vein, left subclavian vein, and outflow vein at the mid humeral level. ??Mild left upper thoracic venous collaterals were identified. Post angioplasty images show a good response with patent vein. ??There was resolution of the moderate focal stenosis involving the left brachiocephalic vein and left subclavian vein. ??There was also resolution of the mid humeral outflow vein stenosis. ??The arterial anastomosis is patent and appears normal in caliber. ??No other focal flow limiting lesion was identified. ?? IMPRESSION: ?\ SUCCESSFUL ANGIOPLASTY OF THE MODERATE FOCAL STENOSIS INVOLVING THE LEFT BRACHIOCEPHALIC VEIN, LEFT SUBCLAVIAN VEIN, AND OUTFLOW VEIN AT THE MID HUMERAL LEVEL; DESCRIBED ABOVE. ?? PLAN: Flow within the dialysis access should be monitored and used to guide decisions about the need for repeat intervention. ??The patient should follow up with [facility] interventional radiology in 10 weeks for repeat fistulogram. The patient's ??left upper extremity purse string suture can be removed in 3-5 days. MOTOR VEHICLE EXAMINER: ??MJ4 TRANSCRIBE DATE/TIME: ??May ??2012 ??2:27P RADIOLOGIST: ??MOHAMMED ABBAS M.D. ??READ ON: ??May ??2012 10:01A ORDERING DR: CULLEN PAYNE M.D. THIS DOCUMENT HAS BEEN ELECTRONICALLY SIGNED BY: ??MELIDA ENNIS M.D. ??ON: ??May ??2012 ??2:28P Procedure Note Provider, MD Diego - 10/30/2016 IMAGES NOT AVAILABLE IN CLINICAL DESKTOP FILM(S) AVAILABLE IN RADIOLOGY BUNDLE: Acc#: [id number] [facility] 0007 - ANGIO SELECT EACH ADD VESSEL DATE OF EXAM: Nov 10 2012 9:40AM DIAGNOSIS: ESRD CLINICAL HISTORY: - RESULT: \ EXAMINATION: Dialysis fistulogram and angioplasty. DATE: 11/10/12. 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 The patient presents today for follow-p fistulogram. The patient has had recurrent stenoses that require intervention approximately every 8-10 weeks. FLUOROSCOPY TIME: 1.2 minutes. TECHNIQUE: The risks, benefits, and alternatives were discussed and informed consent was obtained. Prior to beginning the procedure, universal protocol was performed to confirm the patient's identity and the planned procedure. Maximum sterile barriers including cap, mask, hand hygiene, sterile gloves, sterile gown, large sterile drape, and 2% chlorhexidine for cutaneous antisepsis were used. The skin over the left upper extremity dialysis arteriovenous fistula was infiltrated with 1% lidocaine. Access was obtained using a micropuncture needle followed by placement of a 5 [place]i catheter. Fluoroscopy was used for all catheter and guide wire manipulations. Multiple DSA images were obtained to visualize the dialysis access from the arterial anastomosis through the superior vena cava. After identifying multiple focal stenosis involving the left brachiocephalic vein, left subclavian vein, and outflow vein at the mid humeral level, a 7 [place] vascular sheath was placed. Conscious sedation was administered using 0.5 mg of Versed and 50 micrograms of Fentanyl at procedure start time of 9:11 a.m. and end time of 9:40 a.m. The patient was monitored throughout the entirety of the procedure by the special procedures nurse in addition to the physician performing the procedure. The moderate focal stenosis involving the left brachiocephalic vein and left subclavian vein were dilated using a 14 mm high pressure balloon. Repeat venography was performed. Next, a 10 mm high pressure balloon was used to angioplasty the moderate focal stenosis involving the outflow vein at the mid humeral level. Repeat DSA images were obtained. At the end of the procedure, a purse string suture was placed around the entry site, and hemostasis was achieved. A sterile dressing was applied. The patient tolerated the procedure well without complications. FINDINGS: Images of the dialysis access show moderate focal flow limiting stenosis involving the left brachiocephalic vein, left subclavian vein, and outflow vein at the mid humeral level. Mild left upper thoracic venous collaterals were identified. Post angioplasty images show a good response with patent vein. There was resolution of the moderate focal stenosis involving the left brachiocephalic vein and left subclavian vein. There was also resolution of the mid humeral outflow vein stenosis. The arterial anastomosis is patent and appears normal in caliber. No other focal flow limiting lesion was identified. IMPRESSION: \ SUCCESSFUL ANGIOPLASTY OF THE MODERATE FOCAL STENOSIS INVOLVING THE LEFT BRACHIOCEPHALIC VEIN, LEFT SUBCLAVIAN VEIN, AND OUTFLOW VEIN AT THE MID HUMERAL LEVEL; DESCRIBED ABOVE. PLAN: Flow within the dialysis access should be monitored and used to guide decisions about the need for repeat intervention. The patient should follow up with [facility] interventional radiology in 10 weeks for repeat fistulogram. The patient's left upper extremity purse string suture can be removed in 3-5 days. MOTOR VEHICLE EXAMINER: MJYonas TRANSCRIBE DATE/TIME: Nov 10 2012 2:27P RADIOLOGIST: MELIDA ENNIS M.D. READ ON: Nov 10 2012 10:01A ORDERING DR: CULLEN PAYNE M.D. THIS DOCUMENT HAS BEEN ELECTRONICALLY SIGNED BY: MELIDA ENNIS M.D. ON: Nov 10 2012 2:28P us Historical Provider MD [facility] IR PROCEDURES Final R esult * VOICE NETWORK ADMINISTRATOR Venous (11/10/2012 9:40 AM CDT) Anatomical Region Laterality Modality Body N/A X-Ray Angiograph y 11/10/2012 9:40 AM CDT Narrative 11/10/2012 2:54 PM CDT IMAGES NOT AVAILABLE IN CLINICAL DESKTOP ? FILM(S) AVAILABLE IN RADIOLOGY BUNDLE: Acc#: ??[id number] [facility] 0117 - IR Angioplasty Venous ?? DATE OF EXAM: ??May ??2012 ??9:40AM DIAGNOSIS: ??ESRD CLINICAL HISTORY: ?? - ?? RESULT: \ EXAMINATION: Dialysis fistulogram and angioplasty. DATE: ??11/10/12. 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 The patient presents today for follow-p fistulogram. The patient has had recurrent stenoses that require intervention approximately every 8-10 weeks. ?? FLUOROSCOPY TIME: ??1.2 minutes. ?? TECHNIQUE: ??The risks, benefits, and alternatives were discussed and informed consent was obtained. ??Prior to beginning the procedure, universal protocol was performed to confirm the patient's ??identity and the planned procedure. Maximum sterile barriers including cap, mask, hand hygiene, sterile gloves, sterile gown, large sterile drape, and 2% chlorhexidine for cutaneous antisepsis were used. ?? The skin over the left upper extremity dialysis arteriovenous fistula was infiltrated with 1% lidocaine. Access was obtained using a micropuncture needle followed by placement of a 5 [place]i catheter. ??Fluoroscopy was used for all catheter and guide wire manipulations. ??Multiple DSA images were obtained to visualize the dialysis access from the arterial anastomosis through the superior vena cava. After identifying multiple focal stenosis involving the left brachiocephalic vein, left subclavian vein, and outflow vein at the mid humeral level, a 7 [place] vascular sheath was placed. Conscious sedation was administered using 0.5 mg of Versed and 50 micrograms of Fentanyl at procedure start time of 9:11 a.m. and end time of 9:40 a.m. ??The patient was monitored throughout the entirety of the procedure by the special procedures nurse in addition to the physician performing the procedure. ?? The moderate focal stenosis involving the left brachiocephalic vein and left subclavian vein were dilated using a 14 mm high pressure balloon. ?? Repeat venography was performed. ??Next, a 10 mm high pressure balloon was used to angioplasty the moderate focal stenosis involving the outflow vein at the mid humeral level. Repeat DSA images were obtained. ??At the end of the procedure, a purse string suture was placed around the entry site, and hemostasis was achieved. A sterile dressing was applied. The patient tolerated the procedure well without complications. FINDINGS: ??Images of the dialysis access show moderate focal flow limiting stenosis involving the left brachiocephalic vein, left subclavian vein, and outflow vein at the mid humeral level. ??Mild left upper thoracic venous collaterals were identified. Post angioplasty images show a good response with patent vein. ??There was resolution of the moderate focal stenosis involving the left brachiocephalic vein and left subclavian vein. ??There was also resolution of the mid humeral outflow vein stenosis. ??The arterial anastomosis is patent and appears normal in caliber. ??No other focal flow limiting lesion was identified. ?? IMPRESSION: ?\ SUCCESSFUL ANGIOPLASTY OF THE MODERATE FOCAL STENOSIS INVOLVING THE LEFT BRACHIOCEPHALIC VEIN, LEFT SUBCLAVIAN VEIN, AND OUTFLOW VEIN AT THE MID HUMERAL LEVEL; DESCRIBED ABOVE. ?? PLAN: Flow within the dialysis access should be monitored and used to guide decisions about the need for repeat intervention. ??The patient should follow up with [facility] interventional radiology in 10 weeks for repeat fistulogram. The patient's ??left upper extremity purse string suture can be removed in 3-5 days. MOTOR VEHICLE EXAMINER: ??MJ4 TRANSCRIBE DATE/TIME: ??May ??2012 ??2:29P RADIOLOGIST: ??MELIDA ENNIS M.D. ??READ ON: ??May ??2012 10:01A ORDERING DR: CULLEN PAYNE M.D. THIS DOCUMENT HAS BEEN ELECTRONICALLY SIGNED BY: ??MELIDA ENNIS M.D. ??ON: ??May ??2012 ??2:54P Procedure Note Provider, MD Diego - 10/30/2016 IMAGES NOT AVAILABLE IN CLINICAL DESKTOP FILM(S) AVAILABLE IN RADIOLOGY BUNDLE: Acc#: [id number] [facility] [id number] - IR Angioplasty Venous DATE OF EXAM: Nov 10 2012 9:40AM DIAGNOSIS: ESRD CLINICAL HISTORY: - RESULT: \ EXAMINATION: Dialysis fistulogram and angioplasty. DATE: 11/10/12. 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 The patient presents today for follow-p fistulogram. The patient has had recurrent stenoses that require intervention approximately every 8-10 weeks. FLUOROSCOPY TIME: 1.2 minutes. TECHNIQUE: The risks, benefits, and alternatives were discussed and informed consent was obtained. Prior to beginning the procedure, universal protocol was performed to confirm the patient's identity and the planned procedure. Maximum sterile barriers including cap, mask, hand hygiene, sterile gloves, sterile gown, large sterile drape, and 2% chlorhexidine for cutaneous antisepsis were used. The skin over the left upper extremity dialysis arteriovenous fistula was infiltrated with 1% lidocaine. Access was obtained using a micropuncture needle followed by placement of a 5 [place]i catheter. Fluoroscopy was used for all catheter and guide wire manipulations. Multiple DSA images were obtained to visualize the dialysis access from the arterial anastomosis through the superior vena cava. After identifying multiple focal stenosis involving the left brachiocephalic vein, left subclavian vein, and outflow vein at the mid humeral level, a 7 [place] vascular sheath was placed. Conscious sedation was administered using 0.5 mg of Versed and 50 micrograms of Fentanyl at procedure start time of 9:11 a.m. and end time of 9:40 a.m. The patient was monitored throughout the entirety of the procedure by the special procedures nurse in addition to the physician performing the procedure. The moderate focal stenosis involving the left brachiocephalic vein and left subclavian vein were dilated using a 14 mm high pressure balloon. Repeat venography was performed. Next, a 10 mm high pressure balloon was used to angioplasty the moderate focal stenosis involving the outflow vein at the mid humeral level. Repeat DSA images were obtained. At the end of the procedure, a purse string suture was placed around the entry site, and hemostasis was achieved. A sterile dressing was applied. The patient tolerated the procedure well without complications. FINDINGS: Images of the dialysis access show moderate focal flow limiting stenosis involving the left brachiocephalic vein, left subclavian vein, and outflow vein at the mid humeral level. Mild left upper thoracic venous collaterals were identified. Post angioplasty images show a good response with patent vein. There was resolution of the moderate focal stenosis involving the left brachiocephalic vein and left subclavian vein. There was also resolution of the mid humeral outflow vein stenosis. The arterial anastomosis is patent and appears normal in caliber. No other focal flow limiting lesion was identified. IMPRESSION: \ SUCCESSFUL ANGIOPLASTY OF THE MODERATE FOCAL STENOSIS INVOLVING THE LEFT BRACHIOCEPHALIC VEIN, LEFT SUBCLAVIAN VEIN, AND OUTFLOW VEIN AT THE MID HUMERAL LEVEL; DESCRIBED ABOVE. PLAN: Flow within the dialysis access should be monitored and used to guide decisions about the need for repeat intervention. The patient should follow up with [facility] interventional radiology in 10 weeks for repeat fistulogram. The patient's left upper extremity purse string suture can be removed in 3-5 days. MOTOR VEHICLE EXAMINER: MJYonas TRANSCRIBE DATE/TIME: Nov 10 2012 2:29P RADIOLOGIST: MELIDA ENNIS M.D. READ ON: Nov 10 2012 10:01A ORDERING DR: CULLEN PAYNE M.D. THIS DOCUMENT HAS BEEN ELECTRONICALLY SIGNED BY: MELIDA ENNIS M.D. ON: Nov 10 2012 2:54P us Historical Provider MD [facility] IR PROCEDURES Final R esult * VOICE NETWORK ADMINISTRATOR Venous (11/10/2012 9:40 AM CDT) Anatomical Region Laterality Modality Body N/A X-Ray Angiograph y 11/10/2012 9:40 AM CDT Narrative 11/10/2012 2:28 PM CDT IMAGES NOT AVAILABLE IN CLINICAL DESKTOP ? FILM(S) AVAILABLE IN RADIOLOGY BUNDLE: Acc#: ??[id number] [facility] 0117 - IR Angioplasty Venous ?? DATE OF EXAM: ??May ??2012 ??9:40AM DIAGNOSIS: ??ESRD CLINICAL HISTORY: ?? - ?? RESULT: \ EXAMINATION: Dialysis fistulogram and angioplasty. DATE: ??11/10/12. 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 The patient presents today for follow-p fistulogram. The patient has had recurrent stenoses that require intervention approximately every 8-10 weeks. ?? FLUOROSCOPY TIME: ??1.2 minutes. ?? TECHNIQUE: ??The risks, benefits, and alternatives were discussed and informed consent was obtained. ??Prior to beginning the procedure, universal protocol was performed to confirm the patient's ??identity and the planned procedure. Maximum sterile barriers including cap, mask, hand hygiene, sterile gloves, sterile gown, large sterile drape, and 2% chlorhexidine for cutaneous antisepsis were used. ?? The skin over the left upper extremity dialysis arteriovenous fistula was infiltrated with 1% lidocaine. Access was obtained using a micropuncture needle followed by placement of a 5 [place]i catheter. ??Fluoroscopy was used for all catheter and guide wire manipulations. ??Multiple DSA images were obtained to visualize the dialysis access from the arterial anastomosis through the superior vena cava. After identifying multiple focal stenosis involving the left brachiocephalic vein, left subclavian vein, and outflow vein at the mid humeral level, a 7 [place]i vascular sheath was placed. Conscious sedation was administered using 0.5 mg of Versed and 50 micrograms of Fentanyl at procedure start time of 9:11 a.m. and end time of 9:40 a.m. ??The patient was monitored throughout the entirety of the procedure by the special procedures nurse in addition to the physician performing the procedure. ?? The moderate focal stenosis involving the left brachiocephalic vein and left subclavian vein were dilated using a 14 mm high pressure balloon. ?? Repeat venography was performed. ??Next, a 10 mm high pressure balloon was used to angioplasty the moderate focal stenosis involving the outflow vein at the mid humeral level. Repeat DSA images were obtained. ??At the end of the procedure, a purse string suture was placed around the entry site, and hemostasis was achieved. A sterile dressing was applied. The patient tolerated the procedure well without complications. FINDINGS: ??Images of the dialysis access show moderate focal flow limiting stenosis involving the left brachiocephalic vein, left subclavian vein, and outflow vein at the mid humeral level. ??Mild left upper thoracic venous collaterals were identified. Post angioplasty images show a good response with patent vein. ??There was resolution of the moderate focal stenosis involving the left brachiocephalic vein and left subclavian vein. ??There was also resolution of the mid humeral outflow vein stenosis. ??The arterial anastomosis is patent and appears normal in caliber. ??No other focal flow limiting lesion was identified. ?? IMPRESSION: ?\ SUCCESSFUL ANGIOPLASTY OF THE MODERATE FOCAL STENOSIS INVOLVING THE LEFT BRACHIOCEPHALIC VEIN, LEFT SUBCLAVIAN VEIN, AND OUTFLOW VEIN AT THE MID HUMERAL LEVEL; DESCRIBED ABOVE. ?? PLAN: Flow within the dialysis access should be monitored and used to guide decisions about the need for repeat intervention. ??The patient should follow up with [facility] interventional radiology in 10 weeks for repeat fistulogram. The patient's ??left upper extremity purse string suture can be removed in 3-5 days. MOTOR VEHICLE EXAMINER: ??MJ4 TRANSCRIBE DATE/TIME: ??November ??2012 ??2:28P RADIOLOGIST: ??MELIDA ENNIS M.D. ??READ ON: ??May ??2012 10:01A ORDERING DR: CULLEN PAYNE M.D. THIS DOCUMENT HAS BEEN ELECTRONICALLY SIGNED BY: ??MELIDA ENNIS M.D. ??ON: ??May ??2012 ??2:28P Procedure Note Provider, MD Diego - 10/30/2016 IMAGES NOT AVAILABLE IN CLINICAL DESKTOP FILM(S) AVAILABLE IN RADIOLOGY BUNDLE: Acc#: [id number] [facility] [id number] - IR Angioplasty Venous DATE OF EXAM: Nov 10 2012 9:40AM DIAGNOSIS: ESRD CLINICAL HISTORY: - RESULT: \ EXAMINATION: Dialysis fistulogram and angioplasty. DATE: 11/10/12. 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 The patient presents today for follow-p fistulogram. The patient has had recurrent stenoses that require intervention approximately every 8-10 weeks. FLUOROSCOPY TIME: 1.2 minutes. TECHNIQUE: The risks, benefits, and alternatives were discussed and informed consent was obtained. Prior to beginning the procedure, universal protocol was performed to confirm the patient's identity and the planned procedure. Maximum sterile barriers including cap, mask, hand hygiene, sterile gloves, sterile gown, large sterile drape, and 2% chlorhexidine for cutaneous antisepsis were used. The skin over the left upper extremity dialysis arteriovenous fistula was infiltrated with 1% lidocaine. Access was obtained using a micropuncture needle followed by placement of a 5 [place]i catheter. Fluoroscopy was used for all catheter and guide wire manipulations. Multiple DSA images were obtained to visualize the dialysis access from the arterial anastomosis through the superior vena cava. After identifying multiple focal stenosis involving the left brachiocephalic vein, left subclavian vein, and outflow vein at the mid humeral level, a 7 [place]i vascular sheath was placed. Conscious sedation was administered using 0.5 mg of Versed and 50 micrograms of Fentanyl at procedure start time of 9:11 a.m. and end time of 9:40 a.m. The patient was monitored throughout the entirety of the procedure by the special procedures nurse in addition to the physician performing the procedure. The moderate focal stenosis involving the left brachiocephalic vein and left subclavian vein were dilated using a 14 mm high pressure balloon. Repeat venography was performed. Next, a 10 mm high pressure balloon was used to angioplasty the moderate focal stenosis involving the outflow vein at the mid humeral level. Repeat DSA images were obtained. At the end of the procedure, a purse string suture was placed around the entry site, and hemostasis was achieved. A sterile dressing was applied. The patient tolerated the procedure well without complications. FINDINGS: Images of the dialysis access show moderate focal flow limiting stenosis involving the left brachiocephalic vein, left subclavian vein, and outflow vein at the mid humeral level. Mild left upper thoracic venous collaterals were identified. Post angioplasty images show a good response with patent vein. There was resolution of the moderate focal stenosis involving the left brachiocephalic vein and left subclavian vein. There was also resolution of the mid humeral outflow vein stenosis. The arterial anastomosis is patent and appears normal in caliber. No other focal flow limiting lesion was identified. IMPRESSION: \ SUCCESSFUL ANGIOPLASTY OF THE MODERATE FOCAL STENOSIS INVOLVING THE LEFT BRACHIOCEPHALIC VEIN, LEFT SUBCLAVIAN VEIN, AND OUTFLOW VEIN AT THE MID HUMERAL LEVEL; DESCRIBED ABOVE. PLAN: Flow within the dialysis access should be monitored and used to guide decisions about the need for repeat intervention. The patient should follow up with [facility] interventional radiology in 10 weeks for repeat fistulogram. The patient's left upper extremity purse string suture can be removed in 3-5 days. MOTOR VEHICLE EXAMINER: MJ4 TRANSCRIBE DATE/TIME: Nov 10 2012 2:28P RADIOLOGIST: MELIDA ENNIS M.D. READ ON: Nov 10 2012 10:01A ORDERING DR: CULLEN PAYNE M.D. THIS DOCUMENT HAS BEEN ELECTRONICALLY SIGNED BY: MELIDA ENNIS M.D. ON: Nov 10 2012 2:28P us Historical Provider MD J[facility] IR PROCEDURES Final R esult * VOICE NETWORK ADMINISTRATOR Venous (11/10/2012 9:40 AM CDT) Anatomical Region Laterality Modality Body N/A X-Ray Angiograph y 11/10/2012 9:40 AM CDT Narrative 11/10/2012 2:28 PM CDT IMAGES NOT AVAILABLE IN CLINICAL DESKTOP ? FILM(S) AVAILABLE IN RADIOLOGY BUNDLE: Acc#: ??[id number] [facility] [id number] - IR Angioplasty Venous ?? DATE OF EXAM: ??May ??2012 ??9:40AM DIAGNOSIS: ??ESRD CLINICAL HISTORY: ?? - ?? RESULT: \ EXAMINATION: Dialysis fistulogram and angioplasty. DATE: ??11/10/12. 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 The patient presents today for follow-p fistulogram. The patient has had recurrent stenoses that require intervention approximately every 8-10 weeks. ?? FLUOROSCOPY TIME: ??1.2 minutes. ?? TECHNIQUE: ??The risks, benefits, and alternatives were discussed and informed consent was obtained. ??Prior to beginning the procedure, universal protocol was performed to confirm the patient's ??identity and the planned procedure. Maximum sterile barriers including cap, mask, hand hygiene, sterile gloves, sterile gown, large sterile drape, and 2% chlorhexidine for cutaneous antisepsis were used. ?? The skin over the left upper extremity dialysis arteriovenous fistula was infiltrated with 1% lidocaine. Access was obtained using a micropuncture needle followed by placement of a 5 [place]i catheter. ??Fluoroscopy was used for all catheter and guide wire manipulations. ??Multiple DSA images were obtained to visualize the dialysis access from the arterial anastomosis through the superior vena cava. After identifying multiple focal stenosis involving the left brachiocephalic vein, left subclavian vein, and outflow vein at the mid humeral level, a 7 [place]i vascular sheath was placed. Conscious sedation was administered using 0.5 mg of Versed and 50 micrograms of Fentanyl at procedure start time of 9:11 a.m. and end time of 9:40 a.m. ??The patient was monitored throughout the entirety of the procedure by the special procedures nurse in addition to the physician performing the procedure. ?? The moderate focal stenosis involving the left brachiocephalic vein and left subclavian vein were dilated using a 14 mm high pressure balloon. ?? Repeat venography was performed. ??Next, a 10 mm high pressure balloon was used to angioplasty the moderate focal stenosis involving the outflow vein at the mid humeral level. Repeat DSA images were obtained. ??At the end of the procedure, a purse string suture was placed around the entry site, and hemostasis was achieved. A sterile dressing was applied. The patient tolerated the procedure well without complications. FINDINGS: ??Images of the dialysis access show moderate focal flow limiting stenosis involving the left brachiocephalic vein, left subclavian vein, and outflow vein at the mid humeral level. ??Mild left upper thoracic venous collaterals were identified. Post angioplasty images show a good response with patent vein. ??There was resolution of the moderate focal stenosis involving the left brachiocephalic vein and left subclavian vein. ??There was also resolution of the mid humeral outflow vein stenosis. ??The arterial anastomosis is patent and appears normal in caliber. ??No other focal flow limiting lesion was identified. ?? IMPRESSION: ?\ SUCCESSFUL ANGIOPLASTY OF THE MODERATE FOCAL STENOSIS INVOLVING THE LEFT BRACHIOCEPHALIC VEIN, LEFT SUBCLAVIAN VEIN, AND OUTFLOW VEIN AT THE MID HUMERAL LEVEL; DESCRIBED ABOVE. ?? PLAN: Flow within the dialysis access should be monitored and used to guide decisions about the need for repeat intervention. ??The patient should follow up with [facility] interventional radiology in 10 weeks for repeat fistulogram. The patient's ??left upper extremity purse string suture can be removed in 3-5 days. MOTOR VEHICLE EXAMINER: ??MJ4 TRANSCRIBE DATE/TIME: ??May ??2012 ??2:27P RADIOLOGIST: ??MELIDA ENNIS M.D. ??READ ON: ??May ??2012 10:01A ORDERING DR: CULLNE PAYNE M.D. THIS DOCUMENT HAS BEEN ELECTRONICALLY SIGNED BY: ??MELIDA ENNIS M.D. ??ON: ??May ??2012 ??2:28P Procedure Note Provider, MD Diego - 10/30/2016 IMAGES NOT AVAILABLE IN CLINICAL DESKTOP FILM(S) AVAILABLE IN RADIOLOGY BUNDLE: Acc#: [id number] [facility] [id number] - IR Angioplasty Venous DATE OF EXAM: Nov 10 2012 9:40AM DIAGNOSIS: ESRD CLINICAL HISTORY: - RESULT: \ EXAMINATION: Dialysis fistulogram and angioplasty. DATE: 11/10/12. 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 The patient presents today for follow-p fistulogram. The patient has had recurrent stenoses that require intervention approximately every 8-10 weeks. FLUOROSCOPY TIME: 1.2 minutes. TECHNIQUE: The risks, benefits, and alternatives were discussed and informed consent was obtained. Prior to beginning the procedure, universal protocol was performed to confirm the patient's identity and the planned procedure. Maximum sterile barriers including cap, mask, hand hygiene, sterile gloves, sterile gown, large sterile drape, and 2% chlorhexidine for cutaneous antisepsis were used. The skin over the left upper extremity dialysis arteriovenous fistula was infiltrated with 1% lidocaine. Access was obtained using a micropuncture needle followed by placement of a 5 [place]i catheter. Fluoroscopy was used for all catheter and guide wire manipulations. Multiple DSA images were obtained to visualize the dialysis access from the arterial anastomosis through the superior vena cava. After identifying multiple focal stenosis involving the left brachiocephalic vein, left subclavian vein, and outflow vein at the mid humeral level, a 7 [place]i vascular sheath was placed. Conscious sedation was administered using 0.5 mg of Versed and 50 micrograms of Fentanyl at procedure start time of 9:11 a.m. and end time of 9:40 a.m. The patient was monitored throughout the entirety of the procedure by the special procedures nurse in addition to the physician performing the procedure. The moderate focal stenosis involving the left brachiocephalic vein and left subclavian vein were dilated using a 14 mm high pressure balloon. Repeat venography was performed. Next, a 10 mm high pressure balloon was used to angioplasty the moderate focal stenosis involving the outflow vein at the mid humeral level. Repeat DSA images were obtained. At the end of the procedure, a purse string suture was placed around the entry site, and hemostasis was achieved. A sterile dressing was applied. The patient tolerated the procedure well without complications. FINDINGS: Images of the dialysis access show moderate focal flow limiting stenosis involving the left brachiocephalic vein, left subclavian vein, and outflow vein at the mid humeral level. Mild left upper thoracic venous collaterals were identified. Post angioplasty images show a good response with patent vein. There was resolution of the moderate focal stenosis involving the left brachiocephalic vein and left subclavian vein. There was also resolution of the mid humeral outflow vein stenosis. The arterial anastomosis is patent and appears normal in caliber. No other focal flow limiting lesion was identified. IMPRESSION: \ SUCCESSFUL ANGIOPLASTY OF THE MODERATE FOCAL STENOSIS INVOLVING THE LEFT BRACHIOCEPHALIC VEIN, LEFT SUBCLAVIAN VEIN, AND OUTFLOW VEIN AT THE MID HUMERAL LEVEL; DESCRIBED ABOVE. PLAN: Flow within the dialysis access should be monitored and used to guide decisions about the need for repeat intervention. The patient should follow up with [facility] interventional radiology in 10 weeks for repeat fistulogram. The patient's left upper extremity purse string suture can be removed in 3-5 days. MOTOR VEHICLE EXAMINER: NOLA TRANSCRIBE DATE/TIME: Nov 10 2012 2:27P RADIOLOGIST: MELIDA ENNIS M.D. READ ON: Nov 10 2012 10:01A ORDERING DR: CULLEN PAYNE M.D. THIS DOCUMENT HAS BEEN ELECTRONICALLY SIGNED BY: MELIDA ENNIS M.D. ON: Nov 10 2012 2:28P us Historical Provider MD [facility] IR PROCEDURES Final R esult * Angiogram Arteriovenous Shunt (11/10/2012 9:40 AM CDT) Anatomical Region Laterality Modality Body N/A X-Ray Angiograph y 11/10/2012 9:40 AM CDT Narrative 11/10/2012 2:27 PM CDT IMAGES NOT AVAILABLE IN CLINICAL DESKTOP ? FILM(S) AVAILABLE IN RADIOLOGY BUNDLE: Acc#: ??[id number] [facility] 0191 - IR AV Fistulagram L ?? DATE OF EXAM: ??May ??2012 ??9:40AM DIAGNOSIS: ??ESRD CLINICAL HISTORY: ?? FOLLOW UP ?? RESULT: \ EXAMINATION: Dialysis fistulogram and angioplasty. DATE: ??11/10/12. 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 The patient presents today for follow-p fistulogram. The patient has had recurrent stenoses that require intervention approximately every 8-10 weeks. ?? FLUOROSCOPY TIME: ??1.2 minutes. ?? TECHNIQUE: ??The risks, benefits, and alternatives were discussed and informed consent was obtained. ??Prior to beginning the procedure, universal protocol was performed to confirm the patient's ??identity and the planned procedure. Maximum sterile barriers including cap, mask, hand hygiene, sterile gloves, sterile gown, large sterile drape, and 2% chlorhexidine for cutaneous antisepsis were used. ?? The skin over the left upper extremity dialysis arteriovenous fistula was infiltrated with 1% lidocaine. Access was obtained using a micropuncture needle followed by placement of a 5 [place]i catheter. ??Fluoroscopy was used for all catheter and guide wire manipulations. ??Multiple DSA images were obtained to visualize the dialysis access from the arterial anastomosis through the superior vena cava. After identifying multiple focal stenosis involving the left brachiocephalic vein, left subclavian vein, and outflow vein at the mid humeral level, a 7 [place]i vascular sheath was placed. Conscious sedation was administered using 0.5 mg of Versed and 50 micrograms of Fentanyl at procedure start time of 9:11 a.m. and end time of 9:40 a.m. ??The patient was monitored throughout the entirety of the procedure by the special procedures nurse in addition to the physician performing the procedure. ?? The moderate focal stenosis involving the left brachiocephalic vein and left subclavian vein were dilated using a 14 mm high pressure balloon. ?? Repeat venography was performed. ??Next, a 10 mm high pressure balloon was used to angioplasty the moderate focal stenosis involving the outflow vein at the mid humeral level. Repeat DSA images were obtained. ??At the end of the procedure, a purse string suture was placed around the entry site, and hemostasis was achieved. A sterile dressing was applied. The patient tolerated the procedure well without complications. FINDINGS: ??Images of the dialysis access show moderate focal flow limiting stenosis involving the left brachiocephalic vein, left subclavian vein, and outflow vein at the mid humeral level. ??Mild left upper thoracic venous collaterals were identified. Post angioplasty images show a good response with patent vein. ??There was resolution of the moderate focal stenosis involving the left brachiocephalic vein and left subclavian vein. ??There was also resolution of the mid humeral outflow vein stenosis. ??The arterial anastomosis is patent and appears normal in caliber. ??No other focal flow limiting lesion was identified. ?? IMPRESSION: ?\ SUCCESSFUL ANGIOPLASTY OF THE MODERATE FOCAL STENOSIS INVOLVING THE LEFT BRACHIOCEPHALIC VEIN, LEFT SUBCLAVIAN VEIN, AND OUTFLOW VEIN AT THE MID HUMERAL LEVEL; DESCRIBED ABOVE. ?? PLAN: Flow within the dialysis access should be monitored and used to guide decisions about the need for repeat intervention. ??The patient should follow up with [facility] interventional radiology in 10 weeks for repeat fistulogram. The patient's ??left upper extremity purse string suture can be removed in 3-5 days. MOTOR VEHICLE EXAMINER: ??MJ4 TRANSCRIBE DATE/TIME: ??May ??2012 ??2:26P RADIOLOGIST: ??MELIDA ENNIS M.D. ??READ ON: ??May ??2012 10:01A ORDERING DR: CULLEN PAYNE M.D. THIS DOCUMENT HAS BEEN ELECTRONICALLY SIGNED BY: ??MELIDA ENNIS M.D. ??ON: ??May ??2012 ??2:27P Procedure Note Provider, MD Diego - 10/30/2016 IMAGES NOT AVAILABLE IN CLINICAL DESKTOP FILM(S) AVAILABLE IN RADIOLOGY BUNDLE: Acc#: [id number] [facility] 0191 - IR AV Fistulagram L DATE OF EXAM: Nov 10 2012 9:40AM DIAGNOSIS: ESRD CLINICAL HISTORY: FOLLOW UP RESULT: \ EXAMINATION: Dialysis fistulogram and angioplasty. DATE: 11/10/12. 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 The patient presents today for follow-p fistulogram. The patient has had recurrent stenoses that require intervention approximately every 8-10 weeks. FLUOROSCOPY TIME: 1.2 minutes. TECHNIQUE: The risks, benefits, and alternatives were discussed and informed consent was obtained. Prior to beginning the procedure, universal protocol was performed to confirm the patient's identity and the planned procedure. Maximum sterile barriers including cap, mask, hand hygiene, sterile gloves, sterile gown, large sterile drape, and 2% chlorhexidine for cutaneous antisepsis were used. The skin over the left upper extremity dialysis arteriovenous fistula was infiltrated with 1% lidocaine. Access was obtained using a micropuncture needle followed by placement of a 5 [place]i catheter. Fluoroscopy was used for all catheter and guide wire manipulations. Multiple DSA images were obtained to visualize the dialysis access from the arterial anastomosis through the superior vena cava. After identifying multiple focal stenosis involving the left brachiocephalic vein, left subclavian vein, and outflow vein at the mid humeral level, a 7 [place]i vascular sheath was placed. Conscious sedation was administered using 0.5 mg of Versed and 50 micrograms of Fentanyl at procedure start time of 9:11 a.m. and end time of 9:40 a.m. The patient was monitored throughout the entirety of the procedure by the special procedures nurse in addition to the physician performing the procedure. The moderate focal stenosis involving the left brachiocephalic vein and left subclavian vein were dilated using a 14 mm high pressure balloon. Repeat venography was performed. Next, a 10 mm high pressure balloon was used to angioplasty the moderate focal stenosis involving the outflow vein at the mid humeral level. Repeat DSA images were obtained. At the end of the procedure, a purse string suture was placed around the entry site, and hemostasis was achieved. A sterile dressing was applied. The patient tolerated the procedure well without complications. FINDINGS: Images of the dialysis access show moderate focal flow limiting stenosis involving the left brachiocephalic vein, left subclavian vein, and outflow vein at the mid humeral level. Mild left upper thoracic venous collaterals were identified. Post angioplasty images show a good response with patent vein. There was resolution of the moderate focal stenosis involving the left brachiocephalic vein and left subclavian vein. There was also resolution of the mid humeral outflow vein stenosis. The arterial anastomosis is patent and appears normal in caliber. No other focal flow limiting lesion was identified. IMPRESSION: \ SUCCESSFUL ANGIOPLASTY OF THE MODERATE FOCAL STENOSIS INVOLVING THE LEFT BRACHIOCEPHALIC VEIN, LEFT SUBCLAVIAN VEIN, AND OUTFLOW VEIN AT THE MID HUMERAL LEVEL; DESCRIBED ABOVE. PLAN: Flow within the dialysis access should be monitored and used to guide decisions about the need for repeat intervention. The patient should follow up with [facility] interventional radiology in 10 weeks for repeat fistulogram. The patient's left upper extremity purse string suture can be removed in 3-5 days. MOTOR VEHICLE EXAMINER: MJ4 TRANSCRIBE DATE/TIME: Nov 10 2012 2:26P RADIOLOGIST: MELIDA ENNIS M.D. READ ON: Nov 10 2012 10:01A ORDERING DR: CULLEN PAYNE M.D. THIS DOCUMENT HAS BEEN ELECTRONICALLY SIGNED BY: MELIDA ENNIS M.D. ON: Nov 10 2012 2:27P us Historical Provider MD JACKSON IR PROCEDURES Final R esult documented in this encounter Visit Diagnoses Diagnosis Mechanical complication of vascular device, implant, and graft Compression of vein Surgical operation with anastomosis, bypass, or graft, with natural or artificial tissues used as implant causing abnormal patient reaction, or later complication Unspecified place of occurrence End-stage renal disease (CMS/HCC) (HCC) documented in this encounter Care Teams Brace End Mainspring Former Relationship Specialty Start Date End Date Burke Rosenberg DO [address] [address] PCP - General 09/27/10 02/19/14 documented as of this encounter
--- OUTSIDE RECORDS SUMMARY | 2024-06-27 01:59 | XMS_ITS | Encounter Summary ---
Author Organization [facility] Healthcare Address [address] [place] [address] Care Team Providers Care Customer Account Administrator Name Role Phone Unavailable Primary Care Provider Unavailabl e Encounter Details Date Type Department Care Team (Late st Contact Info) Description 06/12/2010 9:28 AM SLOT SHIFT SUPERVISOR - 06/12/2010 11:14 AM SLOT SHIFT SUPERVISOR Hospital Encounter [place] Cullen Muñ[place] [id number] [address] Other follow-up examination; Hypertensive chronic kidney disease [...] file Legal Sex Female 1:13 PM SLOT SHIFT SUPERVISOR Gender Identity Not on file Sexual [...]
--- OUTSIDE RECORDS SUMMARY | 2024-06-27 01:59 | XMS_ITS | Encounter Summary ---
Author Organization [facility] Healthcare Address [address] [place] [address] Care Team Providers Care President [employer] Name Role Phone Burke Rosenberg DO Primary Care Provider [phone] Encounter Details Date Type Department Care Team (Late st Contact Info) Description 08/06/2011 8:26 AM FOOD BAGGING MACHINE OPERATOR - 08/06/2011 11:00 AM [facility] Hospital En[place] [id number] [address] Other follow-up examination; Hypertensive chronic kidney disease [...] on file Legal Sex Female 1:13 PM FOOD BAGGING MACHINE OPERATOR Gender Identity Not on file [...] disorders documented in this encounter Care Teams President [employer] Relationship Specialty Start Date End Date Burke Rosenberg DO [address] [address] PCP - General 09/27/10 02/19/14 documented as of this encounter
--- OUTSIDE RECORDS SUMMARY | 2024-06-27 01:59 | XMS_ITS | Encounter Summary ---
Author Organization [facility] Healthcare Address [address] [place] [address] Care Team Providers Care Home Health Speech Therapist Name Role Phone Unavailable Primary Care Provider Unavailabl e Encounter Details Date Type Department Care Team (Late st Contact Info) Description 04/09/2010 8:54 AM CDT - 04/09/2010 11:59 PM CDT Hospital Encounter [facility] Social History Tobacco Use Types Packs/Day Years Used Date Smoking Tobacco: Never Assessed Comments Unknown Sex and Gender Information Value Date Recorded Sex Assigned at Not on file Legal Sex Female 1:13 PM COUNTER HAND Gender Identity Not on file Sexual Orientation Not on file documented as of this encounter Plan of Treatment Not on file documented as of this encounter Visit Diagnoses Not on filedocumented in this encounter
--- OUTSIDE RECORDS SUMMARY | 2024-06-27 01:59 | XMS_ITS | Encounter Summary ---
Author Organization [facility] Facility Care Team Providers Care Nightclub Manager Name Role Phone Burke Rosenberg DO Primary Care Provider [phone] Encounter Details Date Type Department Care Team (Latest Contact Info) Description 01/26/2013 - 01/26/2013 11:59 PM CDT Hospital Encounter [facility] Raghav Geller MD [address] [place] [address] Pre-operative cardiovascular examination; Other specified pre-operative examination; End-stage renal disease (CMS/HCC) (HCC); Pleural effusion Social History Tobacco Use Types Packs/Day Years Used Date Smoking Tobacco: Never Assessed Alcohol Use Standard Drinks/Week Comments No 0 (1 standard drink = 0.6 oz pur e alcohol) Comments Unknown Sex and Gender Information Value Date Recorded Sex Assigned at Not on file Legal Sex Female 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 Gender Identity Not on file Sexual Orientation Not on file documented as of this encounter Plan of Treatment Not on file documented as of this encounter Procedures Procedure Name Priority Date/Time Associated Diagnosis Comments DISCHARGE LABORATORY CUMULATIVE REPORT Routine 01/31/2013 5:08 PM CDT CHEST RADIOGRAPHY, FRONTAL (AP), LATERAL Routine 01/26/2013 1:22 PM CDT SERUM HUMAN IMMUNODEFICIENCY VIRUS (HIV) 1, 2 AB Routine 01/26/2013 7:11 AM CDT SERUM HEPATITIS C AB Routine 01/26/2013 7:11 AM CDT SERUM HEPATITIS B SURFACE AG Routine 01/26/2013 7:11 AM CDT SERUM HEPATITIS B SURFACE AB, QUANT/QUAL Routine 01/26/2013 7:11 AM CDT SERUM HEPATITIS B CORE AB Routine 2012 7:11 AM CDT PLASMA PHOSPHORUS Routine 01/26/2013 7:1 1 AM CDT PLASMA PARATHYROID HORMONE (PTH), INTACT Routine 01/26/2013 7:11 AM CDT PLASMA COMPREHENSIVE METABOLIC PANEL Routine 01/26/2013 7:11 AM CDT BLOOD CELL COUNT (CBC) Routine 3 7:11 AM CDT ELECTROCARDIOGRAPHY (ECG) 01/26/2013 STRESS ECHO EXERCISE W DOPPLER/CF WO CONTRAST Routine 01/26/2013 12:00 AM CDT documented in this encounter Results * Discharge Laboratory Cumulative Report (01/31/2013 5:08 PM CDT) 01/31/2013 5:08 PM CDT Narrative HISTORICAL RESULTS - 01/31/2013 5:08 PM CDT ? [facility] ? Department of Laboratories ?[facility] [address] ?[facility] ?Outpatient ?Physician Patient Name: ? AMANDA MAKI Med Rec Number: ?? [id number] Date of : ?1935 Gender/Age: ? Female 77 years Doctor: ? Raghav Freedman M.D. Report Date/Time: 01/31/2013 17:08 ?* Abnormal ??C Critical ??f Footnote ??^ Corrected ??L Low ??H High ?i Interp Data ??@ Reference Lab ?Chart Type: Cumulative ? CHEMISTRY ? Standard Blood Chemistry ?01/26/2013 ?12:11:00 Test ?Units ?Reference Sodium ?140 ? mmol/L ?? 135-145 Plasma Potassium ?5.7 ??H ?mmol/L ?? 3.3-4.9 Chloride ?94 ??L ? mmol/L ?? 97-110 Total CO2 ? 34 ??H ? mmol/L ?? 22-32 Anion Gap ? 12 ?mmol/L ?? 0-16 BUN ? 37 ??H ? mg/dL ?8-25 Creatinine ?5.71 ??H ? mg/dL ?0.60-1.10 Total Bilirubin ? 0.3 ? mg/dL ?0.3-1.1 Glucose ? 132 ? mg/dL ?65-199 Total Calcium ? 10.0 ?mg/dL ?8.6-10.3 Plasma Phosphorus ? 6.5 ??H ?mg/dL ?2.3-4.3 Plasma Total Protein ??7.6 ? g/dL ? 6.5-8.5 Albumin ? 4.5 ? g/dL ? 3.6-5.0 Alkaline Phosphatase ??117 ? Units/L ??38-126 ALT ? 16 ?Units/L ??7-53 AST ? 22 ?Units/L ??11-47 01/26/2013 12:11:00 ??Comp Met Plas: LAB Frequency Standing Order? No Expiration Date: 01/26/2013 12:11:00 ??Phos Plas: LAB Frequency Standing Order? No Expiration Date: ? Hormones ?01/26/2013 ?12:11:00 Test ?Units ??Reference Intact PTH ??698 ??H ?pg/mL ??14-72 ? CHEMISTRY ? Hormones 01/26/2013 12:11:00 ??PTH Intact: LAB Frequency Standing Order? No Expiration Date: ?HEMATOLOGY ?Standard Hematology ?01/26/2013 ?12:11:00 Test ?Units ?? Reference WBC ? 4.6 ? K/cumm ??3.8-9.8 RBC ? 3.93 ?M/cumm ??3.90-5.00 Hgb ? 12.4 ?g/dL ?12.1-15.1 Hct ? 39.1 ?% ? 36.1-44.[address] ? 208 ? K/cumm ??140-440 MCV ? 99.5 ??H ? fL ?80.0-97.6 MCH ? 31.7 ?pg ?26.7-33.7 MCHC ?31.9 ??L ? g/dL ?32.7-35.5 RDW ? 17.1 ??H ? % ? 11.8-14.6 MPV ? 8.5 ? fL ?6.8-10.4 Neut Pct Auto ?? 72.2 ?% ? 38.7-74.5 Lymph Pct Auto ??15.2 ??L ? % ? 20.0-54.3 Bland Pct Auto ?? 8.3 ? % ? 4.3-13.5 Eos Pct Auto ?3.3 ? % ? 0.0-6.0 Baso Pct Auto ?? 1.0 ? % ? 0.0-3.0 Neut Abs Auto ?? 3.4 ? K/cumm ??1.8-6.6 Lymph Abs Auto ??0.7 ??L ?K/cumm ??1.2-3.3 Bland Abs Auto ?? 0.4 ? K/cumm ??0.2-1.2 Eos Abs Auto ?0.2 ? K/cumm ??0.0-0.5 Baso Abs Auto ?? 0.0 ? K/cumm ??0.0-0.2 01/26/2013 12:11:00 ??CBC: LAB Frequency Standing Order? No Expiration Date: ? SEROLOGY ?01/26/2013 ?12:11:00 Test ?Units ? Reference Hepatitis B Surface Antigen ? NEG ? NEG Hepatitis B Core Antibody, Total ??POS ??* ?NEG Hepatitis B Surface Antibody i ?POS ??* ?NEG HepBs Ab QN ? 1046.6 ??f ?? mIUnits/mL Hepatitis C Antibody i ?NEG ? NEG HIV 1-2 Antibodies ?NEG ? NEG ? SEROLOGY 01/26/2013 12:11:00 Hepatitis B Surface Antibody: Interpretive Data A Negative Result indicates HBsAb of less than 10mIU/mL; a Positive Result indicates HBsAb of greater than or equal to 10mIU/mL. If qualitative result is Positive, HBsAb Quantitation will be reported. Assay performance characteristics have not been established as an aid in determining susceptibility to HBV infection prior to or following vaccination in infants, or children. For monitoring serum HBsAb levels during hepatitis B immunoglobulin (HBIG) therapy in transplant recipients, please refer to institutional HBIG protocol for desirable HBsAb levels. Current interpretive data was last revised on 2012. 01/26/2013 12:11:00 Hepatitis C Antibody: Interpretive Data If confirmation is required, call Laboratory Customer Service to request sample to be sent to [facility] for Hepatitis C Virus (HCV) RNA Detection and Quantitation by Real-Time Reverse Pastry Sous Chef-PCR (RT-PCR). Current interpretive data was last revised on 2011 01/26/2013 12:11:00 ??HepB Surf Ag: LAB Frequency Standing Order? No Expiration Date: 01/26/2013 12:11:00 ??HepB Core Ab: LAB Frequency Standing Order? No Expiration Date: 01/26/2013 12:11:00 ??HepBs Ab Ql/Qnt: LAB Frequency Standing Order? No Expiration Date: 01/26/2013 12:11:00 ??HepBs Ab QN: Repeated on dilution. 01/26/2013 12:11:00 ??HepC Ab: LAB Frequency Standing Order? No Expiration Date: 01/26/2013 12:11:00 ??HIV 1-2 Ab: LAB Frequency Standing Order? No Expiration Date: us Historical Provider LAB BLOOD ORDERABLES Paty max Result HISTORICAL RESULTS * CHEST RADIOGRAPHY, FRONTAL (AP), LATERAL (01/26/2013 1:22 PM CDT) Anatomical Region Laterality Modality N/A Radiographic Tomeka ging 01/26/2013 1:22 PM CDT Narrative 01/26/2013 4:23 PM CDT LILLIE SAMS M.D. JEANE NICKERSON MD FINAL REPORT The radiology attending physician has personally reviewed this study, and has reviewed and/or edited this written report and agrees with it. ACC# ??Date Time ??Exam [id number] Jan 26, 2013 13:22:00 [id number] Chest 2 views Front&Lat EXAMINATION: ?? Chest 2 views of IMPRESSION: ?? When compared to 04/01/2010, lungs are hyperinflated and clear. No pneumonia or pulmonary edema. There is a small left pleural effusion. No pneumothorax. The cardiac silhouette is mildly enlarged. Requested By: RAGHAV FREEDMAN M.D. Dictated By: ?? JEANE NICKERSON MD ??on Jan 26 2013 ??1:51P This document has been electronically signed by: LILLIE SAMS M.D. on Jan 26 2013 ??4:23P Procedure Note Provider, MD Diego - 10/30/2016 LILLIE SAMS M.D. JEANE NICKERSON MD FINAL REPORT The radiology attending physician has personally reviewed this study, and has reviewed and/or edited this written report and agrees with it. ACC# Date Time Exam [id number] Jan 26, 2013 13:22:00 [id number] Chest 2 views Front&Lat EXAMINATION: Chest 2 views of IMPRESSION: When compared to 04/01/2010, lungs are hyperinflated and clear. No pneumonia or pulmonary edema. There is a small left pleural effusion. No pneumothorax. The cardiac silhouette is mildly enlarged. Requested By: RAGHAV FREEDMAN M.D. Dictated By: JEANE NICKERSON MD on Jan 26 2013 1:51P This document has been electronically signed by: LILLIE SAMS M.D. on Jan 26 2013 4:23P Historical Provider IMG XR PROCEDURES Final R esult * (ABNORMAL) Serum Hepatitis B core ab (01/26/2013 7:11 AM CDT) HBV core ab Positive(A ) NEG HISTORICAL RESULTS Serum 01/26/2013 7:11 AM CDT Narrative HISTORICAL RESULTS - 01/27/2013 4:38 AM CDT LAB Frequency Standing Order? No Expiration Date: Raghav Freedman MD LAB BLOOD ORDERABLES Final Result Performing Organization Address [facility] Co de Phone Number HISTORICAL RESULTS * (ABNORMAL) Plasma phosphorus (01/26/2013 7:11 AM CDT) Phosphorus, pl 6.5(H) 2.3 - 4.3 mg/dl HISTORICAL RESULTS Plasma 01/26/2013 7:11 AM CDT Narrative HISTORICAL RESULTS - 01/26/2013 8:14 AM CDT LAB Frequency Standing Order? No Expiration Date: Raghav Freedman MD LAB BLOOD ORDERABLES Final Result Performing Organization Address [facility] de Phone Number HISTORICAL RESULTS * (ABNORMAL) Serum Hepatitis B surface ab, Quant/Qual (01/26/2013 7:11 AM CDT) HBV surface ab Positive( A) NEG HISTORICAL RESULTS Comment: Interpretive Data A Negative Result indicates HBsAb of less than 10mIU/mL; a Positive Result indicates HBsAb of greater than or equal to 10mIU/mL. If qualitative result is Positive, HBsAb Quantitation will be reported. Assay performance characteristics have not been established as an aid in determining susceptibility to HBV infection prior to or following vaccination in infants, or children. For monitoring serum HBsAb levels during hepatitis B immunoglobulin (HBIG) therapy in transplant recipients, please refer to institutional HBIG protocol for desirable HBsAb levels. Current interpretive data was last revised on 2012. HBV surface ab, quant 1047 mIUnits/m l HISTORICAL RESULTS Comment:{Repeated on dilutio n.} Serum 01/26/2013 7:11 AM CDT Narrative HISTORICAL RESULTS - 01/31/2013 8:44 AM CDT LAB Frequency Standing Order? No Expiration Date: Raghav Freedman MD LAB BLOOD ORDERABLES Final Result Performing Organization Address [facility] de Phone Number HISTORICAL RESULTS * (ABNORMAL) Plasma parathyroid hormone (PTH), intact (01/26/2013 7:11 AM CDT) PTH, intact 698(H) 14 - 72 pg/ml HISTORICAL RESULTS Plasma 01/26/2013 7:11 AM CDT Narrative HISTORICAL RESULTS - 01/26/2013 8:24 AM CDT LAB Frequency Standing Order? No Expiration Date: Raghav Freedman MD LAB BLOOD ORDERABLES Final Result Performing Organization Address [facility] Co de Phone Number HISTORICAL RESULTS * (ABNORMAL) Plasma comprehensive metabolic panel (01/26/2013 7:11 AM CDT) Pathologist [facility] Sodium 140 135 - 145 mmol/L HISTORICAL RESULTS K, pl 5.7(H) 3.3 - 4.9 mmol/L HISTORICAL RESULTS Chloride 94(L) 97 - 110 mmol/L HISTORICAL RESULTS CO2 34(H) 22 - 32 mmol/L HISTORICAL RESULTS A. gap 12 0 - 16 mmol/L HISTORICAL RESULTS Glucose 132 65 - 199 mg/dl HISTORICAL RESULTS BUN 37(H) 8 - 25 mg/dl HISTORICAL RESULTS Creatinine 5.71(H) 0.60 - 1.10 mg/dl HISTORICAL RESULTS Calcium 10.0 8.6 - 10.3 mg/dl HISTORICAL RESULTS Protein, pl 7.6 6.5 - 8.5 g/dl HISTORICAL RESULTS Alb 4.5 3.6 - 5.0 g/dl HISTORICAL RESULTS Bilirubin 0.3 0.3 - 1.1 mg/dl HISTORICAL RESULTS Alk phos 117 38 - 126 Units/L HISTORICAL RESULTS AST 22 11 - 47 Units/L HISTORICAL RESULTS ALT 16 7 - 53 Units/L HISTORICAL RESULTS Plasma 01/26/2013 7:11 AM CDT Narrative HISTORICAL RESULTS - 01/26/2013 8:14 AM CDT LAB Frequency Standing Order? No Expiration Date: Raghav Freedman MD LAB BLOOD ORDERABLES Final Result Performing Organization Address [facility] Co de Phone Number HISTORICAL RESULTS * Serum Human Immunodeficiency virus (HIV) 1, 2 ab (01/26/2013 7:11 AM CDT) Pathologist [facility] HIV ab Negative NEG HISTORICAL RESULTS Serum 01/26/2013 7:11 AM CDT Narrative HISTORICAL RESULTS - 01/26/2013 2:46 PM CDT LAB Frequency Standing Order? No Expiration Date: Raghav Freedman MD LAB BLOOD ORDERABLES Final Result Performing Organization Address [facility] de Phone Number HISTORICAL RESULTS * Serum Hepatitis C ab (01/26/2013 7:11 AM CDT) HCV ab Negative NEG HISTORICAL RESULTS Serum 01/26/2013 7:11 AM CDT Narrative HISTORICAL RESULTS - 01/27/2013 5:47 AM CDT LAB Frequency Standing Order? No Expiration Date: Interpretive Data If confirmation is required, call Laboratory Customer Service to request sample to be sent to [facility] for Hepatitis C Virus (HCV) RNA Detection and Quantitation by Real-Time Reverse Pastry Sous Chef-PCR (RT-PCR). Current interpretive data was last revised on 2011 us Raghav Freedman MD LAB BLOOD ORDERABLES Final Result Performing Organization Address [facility] de Phone Number HISTORICAL RESULTS * Serum Hepatitis B surface ag (01/26/2013 7:11 AM CDT) HBV surface ag Negative NEG HISTO RICAL RESULTS Serum 01/26/2013 7:11 AM CDT Narrative HISTORICAL RESULTS - 01/27/2013 4:13 AM CDT LAB Frequency Standing Order? No Expiration Date: us Raghav Freedman MD LAB BLOOD ORDERABLES Final Result Performing Organization Address [facility] de Phone Number HISTORICAL RESULTS * (ABNORMAL) Blood cell count (CBC) (01/26/2013 7:11 AM CDT) WBC 4.6 3.8 - 9.8 K/cumm HISTORICAL RESULTS RBC 3.93 3.90 - 5.00 M/cumm HISTORICAL RESULTS Hgb 12.4 12.1 - 15.1 g/dl HISTORICAL RESULTS Hct 39.1 36.1 - 44.3 % HISTORICAL RESULTS MCV 99.5(H) 80.0 - 97.6 fl HISTORICAL RESULTS MCH 31.7 26.7 - 33.7 pg HISTORICAL RESULTS MCHC 31.9(L) 32.7 - 35.5 g/dl HISTORICAL RESULTS Rdw 17.1(H) 11.8 - 14.6 % HISTORICAL RESULTS Platelets 208 140 - 440 K/cumm HISTORICAL RESULTS MPV 8.5 6.8 - 10.4 fl HISTORICAL RESULTS Neutrophils 72.2 38.7 - 74.5 % HISTORICAL RESULTS Lymphocytes 15.2(L) 20.0 - 54.3 % HISTORICAL RESULTS Monos 8.3 4.3 - 13.5 % HISTORICAL RESULTS Eosinophils 3.3 0.0 - 6.0 % HISTORICAL RESULTS Basophils 1.0 0.0 - 3.0 % HISTORICAL RESULTS Neutrophils, abs 3.4 1.8 - 6.6 K/cumm HISTORICAL RESULTS Lymphocytes, abs 0.7(L) 1.2 - 3.3 K/cumm HISTORICAL RESULTS Monocytes, absolute 0.4 0.2 - 1.2 K/cumm HISTORICAL RESULTS Eosinophils, abs 0.2 0.0 - 0.5 K/cumm HISTORICAL RESULTS Basophils, abs 0.0 0.0 - 0.2 K/cumm HISTORICAL RESULTS Blood specimen (specimen) 01/26/2013 7:11 AM CDT Narrative HISTORICAL RESULTS - 01/26/2013 8:03 AM CDT LAB Frequency Standing Order? No Expiration Date: us Raghav Freedman MD LAB BLOOD ORDERABLES Final Result HISTORICAL RESULTS * Stress Echo Exercise W Doppler/CF WO Contrast (01/26/2013 12:00 AM CDT) Anatomical Region Laterality Modality Echocardiography 01/26/2013 Narrative 01/26/2013 12:00 AM CDT Patient name: Amanda Maki Date of test: 01/26/2013 Hospital #: [id number] ?Location: [facility]. ([facility]) Interpreted by: Ventura Gaines MD Landscape Drafter: Darby Johnson RDCS RN: Sonal Simmons RN Reason for Test: kidney tx eval Study quality: Technically good Referring Physician: RAGHAV FREEDMAN MD Contrast Agent: LV Global Function: Normal left ventricular systolic function. Baseline Echo Comments: ??- Normal LV and RV size and systolic function. ??- E/A reversal c/w impaired diastolic function. Moderate MAC. ??Mild LVH. ??Mild mitral valve thickening. Doppler/CF Comments: Mild TR, mild MR. ??Estimated PASP 30mmHg Baseline HR: 90 Baseline BP: 180/90 Conduction Defects: None Resting ECG Comments: ??sinus rhythm. Medications: norvasc, asa, lisinopril, metoprolol Meds held: metoprolol Peak HR: 125 Peak BP: 210/90 Post-Exercise Comments: Marked increase in the LV and RV contractility, no segmental wall motion abnormalities. The patient exercised for ??6 min. 45 sec. The patient achieved: 125 bpm ??86 % of MPHR ?METS: 9 Exer. Perf: Good exercise performance. Test terminated: ??Fatigue. Stress ECG Comments: ??No ischemic changes or arrhythmia. ? Summary ? Maximal Exercise Stress Echocardiogram, NEGATIVE for myocardial ischemia. ??Good exercise tolerance. Confirmed on ??01/26/2013 - 17:53:52 by Ventura Gaines MD ?? Latcher: Bonnie Contreras MD By signing this report, the attending paint laboratory technician certifies that he or she has personally supervised and interpreted the echocardiogram and has reviewed and or edited and agrees with the written comments contained within the report. Procedure Note Provider, MD Diego - 11/04/2016 Patient name: Amanda Maki Date of test: 01/26/2013 [facility] #: [id number] Location: [facility] ([facility]) Interpreted by: Ventura Gaines MD Landscape Drafter: Darby Johnson RDCS RN: Sonal Simmons RN Reason for Test: kidney tx eval Study quality: Technically good Referring Physician: RAGHAV FREEDMAN MD Contrast Agent: LV Global Function: Normal left ventricular systolic function. Baseline Echo Comments: - Normal LV and RV size and systolic function. - E/A reversal c/w impaired diastolic function. Moderate MAC. Mild LVH. Mild mitral valve thickening. Doppler/CF Comments: Mild TR, mild MR. Estimated PASP 30mmHg Baseline HR: 90 Baseline BP: 180/90 Conduction Defects: None Resting ECG Comments: sinus rhythm. Medications: norvasc, asa, lisinopril, metoprolol Meds held: metoprolol Peak HR: 125 Peak BP: 210/90 Post-Exercise Comments: Marked increase in the LV and RV contractility, no segmental wall motion abnormalities. The patient exercised for 6 min. 45 sec. The patient achieved: 125 bpm 86 % of MPHR METS: 9 Exer. Perf: Good exercise performance. Test terminated: Fatigue. Stress ECG Comments: No ischemic changes or arrhythmia. Summary Maximal Exercise Stress Echocardiogram, NEGATIVE for myocardial ischemia. Good exercise tolerance. Confirmed on 01/26/2013 - 17:53:52 by Ventura Gaines MD Latcher: Bonnie Contreras MD By signing this report, the attending paint laboratory technician certifies that he or she has personally supervised and interpreted the echocardiogram and has reviewed and or edited and agrees with the written comments contained within the report. Historical Gregorio LUCAS CV ECHO PROCEDURES Final Result * ELECTROCARDIOGRAPHY (ECG) (01/26/2013) Narrative 01/26/2013 Ordered by an unspecified provider. Historical Gregorio LUCAS ECG ORDERABLES Final Res ult documented in this encounter Visit Diagnoses Diagnosis Pre-operative cardiovascular examination Other specified pre-operative examination End-stage renal disease (CMS/HCC) (HCC) Pleural effusion Unspecified pleural effusion documented in this encounter Care Teams Nightclub Manager Relationship Specialty Start Date End Date Burke Rosenberg DO [address] [address] PCP - General 09/27/10 02/19/14 documented as of this encounter
--- OUTSIDE RECORDS SUMMARY | 2024-06-27 01:59 | XMS_ITS | Encounter Summary ---
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
--- OUTSIDE RECORDS SUMMARY | 2024-06-27 01:59 | XMS_ITS | Encounter Summary ---
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
--- OUTSIDE RECORDS SUMMARY | 2024-06-27 01:59 | XMS_ITS | Encounter Summary ---
Author Organization [facility] Healthcare Address [address] [place] [address] Care Team Providers Care Fancy Wire Drawer Name Role Phone Unavailable Primary Care Provider Unavailabl e Encounter Details Date Type Department Care Team (Late st Contact Info) Description 08/14/2010 7:30 AM SERVICE SHOP FOREMAN - 08/14/2010 9:51 AM SERVICE SHOP FOREMAN Hospital Encounter [facility] [place] [id number] [address] Other follow-up examination; Hypertensive chronic kidney disease [...] file Legal Sex Female 1:13 PM SERVICE SHOP FOREMAN Gender Identity Not on file Sexual Orientation [...]
--- OUTSIDE RECORDS SUMMARY | 2024-06-27 01:59 | XMS_ITS | Encounter Summary ---
Author Organization [facility] Healthcare Address [address] [place] [address] Care Team Providers Care Purchasing Intern Name Role Phone Burke Rosenberg DO Primary Care Provider [phone] Encounter Details Date Type Department Care Team (Late st Contact Info) Description 06/04/2011 7:33 AM BEAD BUILDER - 06/04/2011 9:45 AM [facility] Hospital [place] [address] [address] Other follow-up examination; Hypertensive chronic [...] on file Legal Sex Female 1:13 PM BEAD BUILDER Gender Identity Not on file Sexual [...] vein documented in this encounter Care Teams Purchasing Intern Relationship Specialty Start Date End Date Burke Rosenberg DO [address] [place] [id number] PCP - General 09/27/10 02/19/14 documented as of this encounter
--- OUTSIDE RECORDS SUMMARY | 2024-06-27 01:59 | XMS_ITS | Encounter Summary ---
Author Organization [facility] Facility Care Team Providers Care Computer Terminal Operator Name Role Phone Unavailable Primary Care Provider Unavailabl e Encounter Details Date Type Department Care Team (Late st Contact Info) Description 04/01/2010 - 07/05/2010 11:59 PM CONTINUING EDUCATION DEAN [facility] [address] [place] [address] Social History Tobacco Use Types Packs/Day Years Used Date Smoking Tobacco: Never Assessed Comments Unknown Sex and Gender Information Value Date Recorded Sex Assigned at Not on file Legal Sex Female 1:13 PM CONTINUING EDUCATION DEAN Gender Identity Not on file Sexual Orientation Not on file documented as of this encounter Plan of Treatment Not on file documented as of this encounter Visit Diagnoses Not on filedocumented in this encounter
--- OUTSIDE RECORDS SUMMARY | 2024-06-27 01:59 | XMS_ITS | Encounter Summary ---
Author Organization [facility] Facility Care Team Providers Care Gas Pit Worker Name Role Phone Burke Rosenberg DO Primary Care Provider Encounter Details Date Type Department Care Team (Late st Contact Info) Description 11/05/2011 4:22 PM CDT - 07/05/2012 11:59 PM EXPRESS CLERK Hospital Encounter [facility] Opal Yarbrough MD [address] [place] [address] Other chronic pain; Postherpetic polyneuropathy; End-stage renal disease (CMS/HCC) ([facility]) Social History Tobacco Use Types Packs/Day Years Used Date Smoking Tobacco: Never Assessed Alcohol Use Standard Drinks/Week Comments No 0 (1 standard drink = 0.6 oz pur e alcohol) Comments Unknown Sex and Gender Information Value Date Recorded Sex Assigned at Not on file Legal Sex Female 1:13 PM EXPRESS CLERK Gender Identity Not on file Sexual Orientation Not on file documented as of this encounter Plan of Treatment Not on file documented as of this encounter Visit Diagnoses Diagnosis Other chronic pain Postherpetic polyneuropathy End-stage renal disease (CMS/HCC) (HCC) documented in this encounter Care Teams Gas Pit Worker Relationship Specialty Start Date End Date Burke Rosenberg DO [address] [address] PCP - General 09/27/10 02/19/14 documented as of this encounter
--- OUTSIDE RECORDS SUMMARY | 2024-06-27 01:59 | XMS_ITS | Encounter Summary ---
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
--- OUTSIDE RECORDS SUMMARY | 2024-06-27 01:59 | XMS_ITS | Encounter Summary ---
Author Organization [facility] Healthcare Address [address] [place] [address] Care Team Providers Care Java Software Developer Name Role Phone Burke Rosenberg DO Primary Care Provider [phone] Encounter Details Date Type Department Care Team (Late st Contact Info) Description 07/30/2011 8:00 AM CRIMINAL PROFILER - 07/30/2011 11:59 PM CRIMINAL PROFILER Hospital Encounter [place] [address] [facility] [address] [place] [address] Social History Tobacco Use Types Packs/Day Years Used Date Smoking Tobacco: Never Assessed Alcohol Use Standard Drinks/Week Comments No 0 (1 standard drink = 0.6 oz pur e alcohol) Comments Unknown Sex and Gender Information Value Date Recorded Sex Assigned at Not on file Legal Sex Female 1:13 PM CRIMINAL PROFILER Gender Identity Not on file Sexual Orientation Not on file documented as of this encounter Plan of Treatment Not on file documented as of this encounter Visit Diagnoses Not on filedocumented in this encounter Care Teams Java Software Developer Relationship Specialty Start Date End Date Burke Rosenberg DO [address] [place] [address] PCP - General 09/27/10 02/19/14 documented as of this encounter
--- OUTSIDE RECORDS SUMMARY | 2024-06-27 01:59 | XMS_ITS | Encounter Summary ---
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
--- OUTSIDE RECORDS SUMMARY | 2024-06-27 01:59 | XMS_ITS | Encounter Summary ---
Author Organization [facility] Facility Care Team Providers Care Dental Therapist Name Role Phone Burke Rosenberg DO Primary Care Provider [phone] Encounter Details Date Type Department Care Team (Late st Contact Info) Description 07/03/2011 - 07/05/2011 11:59 PM REINSURANCE CLERK Hospital Encounter [facility] CLINCONV Social History Tobacco Use Types Packs/Day Years Used Date Smoking Tobacco: Never Assessed Alcohol Use Standard Drinks/Week Comments No 0 (1 standard drink = 0.6 oz pur e alcohol) Comments Unknown Sex and Gender Information Value Date Recorded Sex Assigned at Not on file Legal Sex Female 1:13 PM REINSURANCE CLERK Gender Identity Not on file Sexual Orientation Not on file documented as of this encounter Plan of Treatment Not on file documented as of this encounter Visit Diagnoses Not on filedocumented in this encounter Care Teams Dental Therapist Relationship Specialty Start Date End Date Burke Rosenberg DO [address] [address] PCP - General 09/27/10 02/19/14 documented as of this encounter
--- OUTSIDE RECORDS SUMMARY | 2024-06-27 01:59 | XMS_ITS | Encounter Summary ---
Author Organization [facility] Facility Care Team Providers Care Legal Analyst Name Role Phone Burke Rosenberg DO Primary Care Provider [phone] Encounter Details Date Type Department Care Team (Late st Contact Info) Description 07/06/2011 - 07/05/2012 11:59 PM COUNSELOR MARRIAGE AND FAMILY Hospital Encounter [facility] CLINCONV Social History Tobacco Use Types Packs/Day Years Used Date Smoking Tobacco: Never Assessed Alcohol Use Standard Drinks/Week Comments No 0 (1 standard drink = 0.6 oz pur e alcohol) Comments Unknown Sex and Gender Information Value Date Recorded Sex Assigned at Not on file Legal Sex Female 1:13 PM COUNSELOR MARRIAGE AND FAMILY Gender Identity Not on file Sexual Orientation Not on file documented as of this encounter Plan of Treatment Not on file documented as of this encounter Visit Diagnoses Not on filedocumented in this encounter Care Teams Legal Analyst Relationship Specialty Start Date End Date Burke Rosenberg DO [address] [address] PCP - General 09/27/10 02/19/14 documented as of this encounter
--- OUTSIDE RECORDS SUMMARY | 2024-06-27 01:59 | XMS_ITS | Encounter Summary ---
Author Organization [facility] Facility Care Team Providers Care Vacuum Cleaner Repairer Name Role Phone Unavailable Primary Care Provider Unavailabl e Encounter Details Date Type Department Care Team (Late st Contact Info) Description 07/24/2009 - 07/05/2010 11:59 PM APPEALS ANALYST Hospital Encounter [facility] CLINCONV Social History Tobacco Use Types Packs/Day Years Used Date Smoking Tobacco: Never Assessed Comments Unknown Sex and Gender Information Value Date Recorded Sex Assigned at Not on file Legal Sex Female 1:13 PM APPEALS ANALYST Gender Identity Not on file Sexual Orientation Not on file documented as of this encounter Plan of Treatment Not on file documented as of this encounter Visit Diagnoses Not on filedocumented in this encounter
--- OUTSIDE RECORDS SUMMARY | 2024-06-27 01:59 | XMS_ITS | Encounter Summary ---
Author Organization [facility] Healthcare Address [address] [place] [address] Care Team Providers Care Tree Worker Name Role Phone Burke Rosenberg DO Primary Care Provider [phone] Encounter Details Date Type Department Care Team (Late st Contact Info) Description 09/01/2012 7:07 AM FINANCIAL COMPLIANCE MANAGER - 09/01/2012 12:58 PM FINANCIAL COMPLIANCE MANAGER Hospital [place] [address] [phone] Complication from renal dialysis device; Surgical operation with anastomosis, bypass, or graft, with natural or artificial tissues used as implant causing abnormal patient reaction, or later complication; Unspecified place of occurrence Social History Tobacco Use Types Packs/Day Years Used Date Smoking Tobacco: Never Assessed Alcohol Use Standard Drinks/Week Comments No 0 (1 standard drink = 0.6 oz pur e alcohol) Comments Unknown Sex and Gender Information Value Date Recorded Sex Assigned at Not on file Legal Sex Female 1:13 PM FINANCIAL COMPLIANCE MANAGER Gender Identity Not on file Sexual Orientation Not on file documented as of this encounter Plan of Treatment Not on file documented as of this encounter Procedures Procedure Name Priority Date/Time Associated Diagnosis Comments VENOGRAM EXTREMITY Routine 09/01/2012 9: 40 AM FINANCIAL COMPLIANCE MANAGER DOLL EYE SETTER VENOUS Routine 09/01/2012 9:40 AM FINANCIAL COMPLIANCE MANAGER DOLL EYE SETTER VENOUS Routine 09/01/2012 9:40 AM FINANCIAL COMPLIANCE MANAGER DOLL EYE SETTER VENOUS Routine 09/01/2012 9:40 AM FINANCIAL COMPLIANCE MANAGER VENOGRAM SVC Routine 09/01/2012 9:40 AM FINANCIAL COMPLIANCE MANAGER ANGIO ARTERIOVENOUS SHUNT Routine 09/01/2012 9:40 AM FINANCIAL COMPLIANCE MANAGER ANGIO ADDITIONAL SELECTIVE Routine 09/01/2012 9:40 AM FINANCIAL COMPLIANCE MANAGER documented in this encounter Results * Venogram Extremity (09/01/2012 9:40 AM FINANCIAL COMPLIANCE MANAGER) Anatomical Region Laterality Modality Extremity N/A X-Ray Angiograph y 09/01/2012 9:40 AM FINANCIAL COMPLIANCE MANAGER Narrative 09/02/2012 1:39 PM FINANCIAL COMPLIANCE MANAGER IMAGES NOT AVAILABLE IN CLINICAL DESKTOP ? FILM(S) AVAILABLE IN RADIOLOGY Acc# [id number] ASMITA 0007 - ANGIO SELECT EACH ADD VESSEL ? RESULT: \ ??IMPRESSION: \ Acc# [id number] ASMITA 0124 - VENOGRAM EXTREMITY UNILATERAL L ?? RESULT: \ ??IMPRESSION: \ Acc# [id number] ASMITA 0057 - IR Venogram Superior Caval ? RESULT: \ ??IMPRESSION: \ Acc# [id number] ASMITA 0117 - IR Angioplasty Venous ? RESULT: \ ??IMPRESSION: \ Acc# [id number] ASMITA 0117 - IR Angioplasty Venous ? RESULT: \ ??IMPRESSION: \ Acc# [id number] ASMITA 0117 - IR Angioplasty Venous ? RESULT: \ ??IMPRESSION: \ Acc#: ??[id number] ASMITA 0191 - IR AV Fistulagram L ?? DATE OF EXAM: ??Sep 01 2012 ??9:40AM DIAGNOSIS: ??ESRD COMP D/T RENAL DIALY DEV CLINICAL HISTORY: ?? CHECK UP ?? RESULT: \ DIALYSIS FISTULOGRAM AND ANGIOPLASTY FLUOROSCOPY TIME: ??1.3 minutes. HISTORY: ??77 -year-old female with left upper extremity arterial venous graft status post intervention on 06/23/2012. ??Patient presents today for fistulogram with possible intervention for her recurrent stenoses. TECHNIQUE: ??The risks, benefits, and alternatives were discussed and informed consent was obtained. ??Prior to beginning the procedure, Pollock Protocol was performed to confirm the patient's identity and the planned procedure. ??Maximum sterile barriers including cap, mask, hand hygiene, sterile gloves, sterile gown, large sterile drape, and 2% chlorhexidine for cutaneous antisepsis were used. The skin over the left upper extremity dialysis arterial venous fistula was infiltrated with 1% lidocaine. ??Access was obtained using a micropuncture needle followed by placement of a 5 Swedish catheter. Fluoroscopy was used for all catheter and guide wire manipulations. Multiple DSA images were obtained to visualize the dialysis access from the arterial anastomosis through the superior vena cava. ??After identifying multiple focal stenoses involving the left brachiocephalic vein, left subclavian vein, and outflow vein at the mid humeral level, a 7 Swedish vascular sheath was placed. Conscious sedation was administered using 0.5 milligrams of Versed and 50 micrograms of Fentanyl at a procedure start time of 0904 hours and end time of 0940 hours. The patient was monitored throughout the entirety of the procedure by the special procedures nurse in addition to the physician performing the procedure. The moderate focal stenoses of the left brachiocephalic vein and left subclavian vein were dilated using a 14 mm high pressure balloon. ??Repeat venography was performed. ?? Next, the balloon was withdrawn and used to angioplasty the moderate focal stenosis involving the outflow vein at the mid humeral level. ??Low pressure was used at this location. Repeat DSA images were obtained. ??At the end of the procedure, a purse string suture was placed around the entry site and hemostasis was achieved. A sterile dressing was applied. The patient tolerated the procedure well and without complications. FINDINGS: Images of the dialysis access show moderate focal stenoses involving the left brachiocephalic vein, left subclavian vein, and outflow vein at the mid humeral level. Mild left upper thoracic venous collaterals were identified. Post angioplasty images show a good response with a patent vein. There was resolution of the flow limiting stenoses involving the left brachiocephalic vein and the left subclavian vein. ??There was also resolution of the mid humeral outflow vein stenosis. ??The arterial anastomosis is patent and normal in caliber. No other focal flow limiting lesion was identified. IMPRESSION: ?\ SUCCESSFUL ANGIOPLASTY OF THE MODERATE FOCAL STENOSES INVOLVING THE LEFT BRACHIOCEPHALIC VEIN, LEFT SUBCLAVIAN VEIN, AND OUTFLOW VEIN AT THE MID HUMERAL LEVEL; DESCRIBED ABOVE. Plan: Flow within the dialysis access should be monitored and used to guide physician about the need for repeat intervention. ??The patient should follow up with [facility] interventional radiology in 10 weeks for repeat fistulogram. ??The patient's left upper extremity purse string suture can be removed in 3-5 days. FLAP PRESSER: ??DM2 TRANSCRIBE DATE/TIME: ??Sep 01 2012 ??9:33P RADIOLOGIST: ??MELIDA ENNIS M.D. ??READ ON: ??Sep 01 2012 10:23A ORDERING DR: CULLEN PAYNE M.D. THIS DOCUMENT HAS BEEN ELECTRONICALLY SIGNED BY: ??MELIDA ENNIS M.D. ??ON: ??Sep 02 2012 ??1:39P Procedure Note Provider, MD Diego - 10/30/2016 IMAGES NOT AVAILABLE IN CLINICAL DESKTOP FILM(S) AVAILABLE IN RADIOLOGY Acc# [id number] ASMITA 0007 - ANGIO SELECT EACH ADD VESSEL RESULT: \ IMPRESSION: \ Acc# [id number] ASMITA 0124 - VENOGRAM EXTREMITY UNILATERAL L RESULT: \ IMPRESSION: \ Acc# [id number] ASMITA 0057 - IR Venogram Superior Caval RESULT: \ IMPRESSION: \ Acc# [id number] ASMITA 0117 - IR Angioplasty Venous RESULT: \ IMPRESSION: \ Acc# [id number] ASMITA 0117 - IR Angioplasty Venous RESULT: \ IMPRESSION: \ Acc# [id number] ASMITA 0117 - IR Angioplasty Venous RESULT: \ IMPRESSION: \ Acc#: [id number] ASMITA 0191 - IR AV Fistulagram L DATE OF EXAM: Sep 01 2012 9:40AM DIAGNOSIS: ESRD COMP D/T RENAL DIALY DEV CLINICAL HISTORY: CHECK UP RESULT: \ DIALYSIS FISTULOGRAM AND ANGIOPLASTY FLUOROSCOPY TIME: 1.3 minutes. HISTORY: 77 -year-old female with left upper extremity arterial venous graft status post intervention on 06/23/2012. Patient presents today for fistulogram with possible intervention for her recurrent stenoses. TECHNIQUE: The risks, benefits, and alternatives were discussed and informed consent was obtained. Prior to beginning the procedure, Pollock Protocol was performed to confirm the patient's identity and the planned procedure. Maximum sterile barriers including cap, mask, hand hygiene, sterile gloves, sterile gown, large sterile drape, and 2% chlorhexidine for cutaneous antisepsis were used. The skin over the left upper extremity dialysis arterial venous fistula was infiltrated with 1% lidocaine. Access was obtained using a micropuncture needle followed by placement of a 5 Swedish catheter. Fluoroscopy was used for all catheter and guide wire manipulations. Multiple DSA images were obtained to visualize the dialysis access from the arterial anastomosis through the superior vena cava. After identifying multiple focal stenoses involving the left brachiocephalic vein, left subclavian vein, and outflow vein at the mid humeral level, a 7 Swedish vascular sheath was placed. Conscious sedation was administered using 0.5 milligrams of Versed and 50 micrograms of Fentanyl at a procedure start time of 0904 hours and end time of 0940 hours. The patient was monitored throughout the entirety of the procedure by the special procedures nurse in addition to the physician performing the procedure. The moderate focal stenoses of the left brachiocephalic vein and left subclavian vein were dilated using a 14 mm high pressure balloon. Repeat venography was performed. Next, the balloon was withdrawn and used to angioplasty the moderate focal stenosis involving the outflow vein at the mid humeral level. Low pressure was used at this location. Repeat DSA images were obtained. At the end of the procedure, a purse string suture was placed around the entry site and hemostasis was achieved. A sterile dressing was applied. The patient tolerated the procedure well and without complications. FINDINGS: Images of the dialysis access show moderate focal stenoses involving the left brachiocephalic vein, left subclavian vein, and outflow vein at the mid humeral level. Mild left upper thoracic venous collaterals were identified. Post angioplasty images show a good response with a patent vein. There was resolution of the flow limiting stenoses involving the left brachiocephalic vein and the left subclavian vein. There was also resolution of the mid humeral outflow vein stenosis. The arterial anastomosis is patent and normal in caliber. No other focal flow limiting lesion was identified. IMPRESSION: \ SUCCESSFUL ANGIOPLASTY OF THE MODERATE FOCAL STENOSES INVOLVING THE LEFT BRACHIOCEPHALIC VEIN, LEFT SUBCLAVIAN VEIN, AND OUTFLOW VEIN AT THE MID HUMERAL LEVEL; DESCRIBED ABOVE. Plan: Flow within the dialysis access should be monitored and used to guide physician about the need for repeat intervention. The patient should follow up with [facility] interventional radiology in 10 weeks for repeat fistulogram. The patient's left upper extremity purse string suture can be removed in 3-5 days. FLAP PRESSER: JOSE A TRANSCRIBE DATE/TIME: Sep 01 2012 9:33P RADIOLOGIST: MELIDA ENNIS M.D. READ ON: Sep 01 2012 10:23A ORDERING DR: CULLEN PAYNE M.D. THIS DOCUMENT HAS BEEN ELECTRONICALLY SIGNED BY: MELIDA ENNIS M.D. ON: Sep 02 2012 1:39P us Historical Provider MD [facility] IR PROCEDURES Final R esult * Angiogram Additional Selective (09/01/2012 9:40 AM FINANCIAL COMPLIANCE MANAGER) Anatomical Region Laterality Modality Body N/A X-Ray Angiograph y 09/01/2012 9:40 AM FINANCIAL COMPLIANCE MANAGER Narrative 09/02/2012 1:39 PM FINANCIAL COMPLIANCE MANAGER IMAGES NOT AVAILABLE IN CLINICAL DESKTOP ? FILM(S) AVAILABLE IN RADIOLOGY Acc# [id number] ASMITA 0007 - ANGIO SELECT EACH ADD VESSEL ? RESULT: \ ??IMPRESSION: \ Acc# [id number] ASMIAT 0124 - VENOGRAM EXTREMITY UNILATERAL L ?? RESULT: \ ??IMPRESSION: \ Acc# [id number] ASMITA 0057 - IR Venogram Superior Caval ? RESULT: \ ??IMPRESSION: \ Acc# [id number] ASMITA 0117 - IR Angioplasty Venous ? RESULT: \ ??IMPRESSION: \ Acc# [id number] ASMITA 0117 - IR Angioplasty Venous ? RESULT: \ ??IMPRESSION: \ Acc# [id number] ASMITA 0117 - IR Angioplasty Venous ? RESULT: \ ??IMPRESSION: \ Acc#: ??[id number] ASMITA 0191 - IR AV Fistulagram L ?? DATE OF EXAM: ??Sep 01 2012 ??9:40AM DIAGNOSIS: ??ESRD COMP D/T RENAL DIALY DEV CLINICAL HISTORY: ?? CHECK UP ?? RESULT: \ DIALYSIS FISTULOGRAM AND ANGIOPLASTY FLUOROSCOPY TIME: ??1.3 minutes. HISTORY: ??77 -year-old female with left upper extremity arterial venous graft status post intervention on 06/23/2012. ??Patient presents today for fistulogram with possible intervention for her recurrent stenoses. TECHNIQUE: ??The risks, benefits, and alternatives were discussed and informed consent was obtained. ??Prior to beginning the procedure, Pollock Protocol was performed to confirm the patient's identity and the planned procedure. ??Maximum sterile barriers including cap, mask, hand hygiene, sterile gloves, sterile gown, large sterile drape, and 2% chlorhexidine for cutaneous antisepsis were used. The skin over the left upper extremity dialysis arterial venous fistula was infiltrated with 1% lidocaine. ??Access was obtained using a micropuncture needle followed by placement of a 5 Swedish catheter. Fluoroscopy was used for all catheter and guide wire manipulations. Multiple DSA images were obtained to visualize the dialysis access from the arterial anastomosis through the superior vena cava. ??After identifying multiple focal stenoses involving the left brachiocephalic vein, left subclavian vein, and outflow vein at the mid humeral level, a 7 Swedish vascular sheath was placed. Conscious sedation was administered using 0.5 milligrams of Versed and 50 micrograms of Fentanyl at a procedure start time of 0904 hours and end time of 0940 hours. The patient was monitored throughout the entirety of the procedure by the special procedures nurse in addition to the physician performing the procedure. The moderate focal stenoses of the left brachiocephalic vein and left subclavian vein were dilated using a 14 mm high pressure balloon. ??Repeat venography was performed. ?? Next, the balloon was withdrawn and used to angioplasty the moderate focal stenosis involving the outflow vein at the mid humeral level. ??Low pressure was used at this location. Repeat DSA images were obtained. ??At the end of the procedure, a purse string suture was placed around the entry site and hemostasis was achieved. A sterile dressing was applied. The patient tolerated the procedure well and without complications. FINDINGS: Images of the dialysis access show moderate focal stenoses involving the left brachiocephalic vein, left subclavian vein, and outflow vein at the mid humeral level. Mild left upper thoracic venous collaterals were identified. Post angioplasty images show a good response with a patent vein. There was resolution of the flow limiting stenoses involving the left brachiocephalic vein and the left subclavian vein. ??There was also resolution of the mid humeral outflow vein stenosis. ??The arterial anastomosis is patent and normal in caliber. No other focal flow limiting lesion was identified. IMPRESSION: ?\ SUCCESSFUL ANGIOPLASTY OF THE MODERATE FOCAL STENOSES INVOLVING THE LEFT BRACHIOCEPHALIC VEIN, LEFT SUBCLAVIAN VEIN, AND OUTFLOW VEIN AT THE MID HUMERAL LEVEL; DESCRIBED ABOVE. Plan: Flow within the dialysis access should be monitored and used to guide physician about the need for repeat intervention. ??The patient should follow up with [facility] interventional radiology in 10 weeks for repeat fistulogram. ??The patient's left upper extremity purse string suture can be removed in 3-5 days. FLAP PRESSER: ??DM2 TRANSCRIBE DATE/TIME: ??Sep 01 2012 ??9:33P RADIOLOGIST: ??MELIDA ENNIS M.D. ??READ ON: ??Sep 01 2012 10:23A ORDERING DR: CULLEN PAYNE M.D. THIS DOCUMENT HAS BEEN ELECTRONICALLY SIGNED BY: ??MELIDA ENNIS M.D. ??ON: ??Sep 02 2012 ??1:39P Procedure Note Provider, MD Diego - 10/30/2016 IMAGES NOT AVAILABLE IN CLINICAL DESKTOP FILM(S) AVAILABLE IN RADIOLOGY Acc# [id number] ASMITA 0007 - ANGIO SELECT EACH ADD VESSEL RESULT: \ IMPRESSION: \ Acc# [id number] ASMITA 0124 - VENOGRAM EXTREMITY UNILATERAL L RESULT: \ IMPRESSION: \ Acc# [id number] ASMITA 0057 - IR Venogram Superior Caval RESULT: \ IMPRESSION: \ Acc# [id number] ASMITA 0117 - IR Angioplasty Venous RESULT: \ IMPRESSION: \ Acc# [id number] ASMITA 0117 - IR Angioplasty Venous RESULT: \ IMPRESSION: \ Acc# [id number] ASMITA 0117 - IR Angioplasty Venous RESULT: \ IMPRESSION: \ Acc#: [id number] ASMITA 0191 - IR AV Fistulagram L DATE OF EXAM: Sep 01 2012 9:40AM DIAGNOSIS: ESRD COMP D/T RENAL DIALY DEV CLINICAL HISTORY: CHECK UP RESULT: \ DIALYSIS FISTULOGRAM AND ANGIOPLASTY FLUOROSCOPY TIME: 1.3 minutes. HISTORY: 77 -year-old female with left upper extremity arterial venous graft status post intervention on 06/23/2012. Patient presents today for fistulogram with possible intervention for her recurrent stenoses. TECHNIQUE: The risks, benefits, and alternatives were discussed and informed consent was obtained. Prior to beginning the procedure, Pollock Protocol was performed to confirm the patient's identity and the planned procedure. Maximum sterile barriers including cap, mask, hand hygiene, sterile gloves, sterile gown, large sterile drape, and 2% chlorhexidine for cutaneous antisepsis were used. The skin over the left upper extremity dialysis arterial venous fistula was infiltrated with 1% lidocaine. Access was obtained using a micropuncture needle followed by placement of a 5 Swedish catheter. Fluoroscopy was used for all catheter and guide wire manipulations. Multiple DSA images were obtained to visualize the dialysis access from the arterial anastomosis through the superior vena cava. After identifying multiple focal stenoses involving the left brachiocephalic vein, left subclavian vein, and outflow vein at the mid humeral level, a 7 Swedish vascular sheath was placed. Conscious sedation was administered using 0.5 milligrams of Versed and 50 micrograms of Fentanyl at a procedure start time of 0904 hours and end time of 0940 hours. The patient was monitored throughout the entirety of the procedure by the special procedures nurse in addition to the physician performing the procedure. The moderate focal stenoses of the left brachiocephalic vein and left subclavian vein were dilated using a 14 mm high pressure balloon. Repeat venography was performed. Next, the balloon was withdrawn and used to angioplasty the moderate focal stenosis involving the outflow vein at the mid humeral level. Low pressure was used at this location. Repeat DSA images were obtained. At the end of the procedure, a purse string suture was placed around the entry site and hemostasis was achieved. A sterile dressing was applied. The patient tolerated the procedure well and without complications. FINDINGS: Images of the dialysis access show moderate focal stenoses involving the left brachiocephalic vein, left subclavian vein, and outflow vein at the mid humeral level. Mild left upper thoracic venous collaterals were identified. Post angioplasty images show a good response with a patent vein. There was resolution of the flow limiting stenoses involving the left brachiocephalic vein and the left subclavian vein. There was also resolution of the mid humeral outflow vein stenosis. The arterial anastomosis is patent and normal in caliber. No other focal flow limiting lesion was identified. IMPRESSION: \ SUCCESSFUL ANGIOPLASTY OF THE MODERATE FOCAL STENOSES INVOLVING THE LEFT BRACHIOCEPHALIC VEIN, LEFT SUBCLAVIAN VEIN, AND OUTFLOW VEIN AT THE MID HUMERAL LEVEL; DESCRIBED ABOVE. Plan: Flow within the dialysis access should be monitored and used to guide physician about the need for repeat intervention. The patient should follow up with [facility] interventional radiology in 10 weeks for repeat fistulogram. The patient's left upper extremity purse string suture can be removed in 3-5 days. FLAP PRESSER: JOSE A TRANSCRIBE DATE/TIME: Sep 01 2012 9:33P RADIOLOGIST: MELDIA ENNIS M.D. READ ON: Sep 01 2012 10:23A ORDERING DR: CULLEN PAYNE M.D. THIS DOCUMENT HAS BEEN ELECTRONICALLY SIGNED BY: MELIDA ENNIS M.D. ON: Sep 02 2012 1:39P us Historical Provider MD [facility] IR PROCEDURES Final R esult * DOLL EYE SETTER Venous (09/01/2012 9:40 AM FINANCIAL COMPLIANCE MANAGER) Anatomical Region Laterality Modality Body N/A X-Ray Angiograph y 09/01/2012 9:40 AM FINANCIAL COMPLIANCE MANAGER Narrative 09/02/2012 1:39 PM FINANCIAL COMPLIANCE MANAGER IMAGES NOT AVAILABLE IN CLINICAL DESKTOP ? FILM(S) AVAILABLE IN RADIOLOGY Acc# [id number] ASMITA 0007 - ANGIO SELECT EACH ADD VESSEL ? RESULT: \ ??IMPRESSION: \ Acc# [id number] ASMITA 0124 - VENOGRAM EXTREMITY UNILATERAL L ?? RESULT: \ ??IMPRESSION: \ Acc# [id number] ASMITA 0057 - IR Venogram Superior Caval ? RESULT: \ ??IMPRESSION: \ Acc# [id number] ASMITA 0117 - IR Angioplasty Venous ? RESULT: \ ??IMPRESSION: \ Acc# [id number] ASMITA 0117 - IR Angioplasty Venous ? RESULT: \ ??IMPRESSION: \ Acc# [id number] ASMITA 0117 - IR Angioplasty Venous ? RESULT: \ ??IMPRESSION: \ Acc#: ??[id number] ASMITA 0191 - IR AV Fistulagram L ?? DATE OF EXAM: ??Sep 01 2012 ??9:40AM DIAGNOSIS: ??ESRD COMP D/T RENAL DIALY DEV CLINICAL HISTORY: ?? CHECK UP ?? RESULT: \ DIALYSIS FISTULOGRAM AND ANGIOPLASTY FLUOROSCOPY TIME: ??1.3 minutes. HISTORY: ??77 -year-old female with left upper extremity arterial venous graft status post intervention on 06/23/2012. ??Patient presents today for fistulogram with possible intervention for her recurrent stenoses. TECHNIQUE: ??The risks, benefits, and alternatives were discussed and informed consent was obtained. ??Prior to beginning the procedure, Pollock Protocol was performed to confirm the patient's identity and the planned procedure. ??Maximum sterile barriers including cap, mask, hand hygiene, sterile gloves, sterile gown, large sterile drape, and 2% chlorhexidine for cutaneous antisepsis were used. The skin over the left upper extremity dialysis arterial venous fistula was infiltrated with 1% lidocaine. ??Access was obtained using a micropuncture needle followed by placement of a 5 Swedish catheter. Fluoroscopy was used for all catheter and guide wire manipulations. Multiple DSA images were obtained to visualize the dialysis access from the arterial anastomosis through the superior vena cava. ??After identifying multiple focal stenoses involving the left brachiocephalic vein, left subclavian vein, and outflow vein at the mid humeral level, a 7 Swedish vascular sheath was placed. Conscious sedation was administered using 0.5 milligrams of Versed and 50 micrograms of Fentanyl at a procedure start time of 0904 hours and end time of 0940 hours. The patient was monitored throughout the entirety of the procedure by the special procedures nurse in addition to the physician performing the procedure. The moderate focal stenoses of the left brachiocephalic vein and left subclavian vein were dilated using a 14 mm high pressure balloon. ??Repeat venography was performed. ?? Next, the balloon was withdrawn and used to angioplasty the moderate focal stenosis involving the outflow vein at the mid humeral level. ??Low pressure was used at this location. Repeat DSA images were obtained. ??At the end of the procedure, a purse string suture was placed around the entry site and hemostasis was achieved. A sterile dressing was applied. The patient tolerated the procedure well and without complications. FINDINGS: Images of the dialysis access show moderate focal stenoses involving the left brachiocephalic vein, left subclavian vein, and outflow vein at the mid humeral level. Mild left upper thoracic venous collaterals were identified. Post angioplasty images show a good response with a patent vein. There was resolution of the flow limiting stenoses involving the left brachiocephalic vein and the left subclavian vein. ??There was also resolution of the mid humeral outflow vein stenosis. ??The arterial anastomosis is patent and normal in caliber. No other focal flow limiting lesion was identified. IMPRESSION: ?\ SUCCESSFUL ANGIOPLASTY OF THE MODERATE FOCAL STENOSES INVOLVING THE LEFT BRACHIOCEPHALIC VEIN, LEFT SUBCLAVIAN VEIN, AND OUTFLOW VEIN AT THE MID HUMERAL LEVEL; DESCRIBED ABOVE. Plan: Flow within the dialysis access should be monitored and used to guide physician about the need for repeat intervention. ??The patient should follow up with [facility] interventional radiology in 10 weeks for repeat fistulogram. ??The patient's left upper extremity purse string suture can be removed in 3-5 days. FLAP PRESSER: ??DM2 TRANSCRIBE DATE/TIME: ??Sep 01 2012 ??9:33P RADIOLOGIST: ??MELIDA ENNIS M.D. ??READ ON: ??Sep 01 2012 10:23A ORDERING DR: CULLEN PAYNE M.D. THIS DOCUMENT HAS BEEN ELECTRONICALLY SIGNED BY: ??MELIDA ENNIS M.D. ??ON: ??Sep 02 2012 ??1:39P Procedure Note Provider, MD Diego - 10/30/2016 IMAGES NOT AVAILABLE IN CLINICAL DESKTOP FILM(S) AVAILABLE IN RADIOLOGY Acc# [id number] ASMITA 0007 - ANGIO SELECT EACH ADD VESSEL RESULT: \ IMPRESSION: \ Acc# [id number] ASMITA 0124 - VENOGRAM EXTREMITY UNILATERAL L RESULT: \ IMPRESSION: \ Acc# [id number] ASMITA 0057 - IR Venogram Superior Caval RESULT: \ IMPRESSION: \ Acc# [id number] ASMITA 0117 - IR Angioplasty Venous RESULT: \ IMPRESSION: \ Acc# [id number] ASMITA 0117 - IR Angioplasty Venous RESULT: \ IMPRESSION: \ Acc# [id number] ASMITA 0117 - IR Angioplasty Venous RESULT: \ IMPRESSION: \ Acc#: [id number] ASMITA 0191 - IR AV Fistulagram L DATE OF EXAM: Sep 01 2012 9:40AM DIAGNOSIS: ESRD COMP D/T RENAL DIALY DEV CLINICAL HISTORY: CHECK UP RESULT: \ DIALYSIS FISTULOGRAM AND ANGIOPLASTY FLUOROSCOPY TIME: 1.3 minutes. HISTORY: 77 -year-old female with left upper extremity arterial venous graft status post intervention on 06/23/2012. Patient presents today for fistulogram with possible intervention for her recurrent stenoses. TECHNIQUE: The risks, benefits, and alternatives were discussed and informed consent was obtained. Prior to beginning the procedure, Pollock Protocol was performed to confirm the patient's identity and the planned procedure. Maximum sterile barriers including cap, mask, hand hygiene, sterile gloves, sterile gown, large sterile drape, and 2% chlorhexidine for cutaneous antisepsis were used. The skin over the left upper extremity dialysis arterial venous fistula was infiltrated with 1% lidocaine. Access was obtained using a micropuncture needle followed by placement of a 5 Swedish catheter. Fluoroscopy was used for all catheter and guide wire manipulations. Multiple DSA images were obtained to visualize the dialysis access from the arterial anastomosis through the superior vena cava. After identifying multiple focal stenoses involving the left brachiocephalic vein, left subclavian vein, and outflow vein at the mid humeral level, a 7 Swedish vascular sheath was placed. Conscious sedation was administered using 0.5 milligrams of Versed and 50 micrograms of Fentanyl at a procedure start time of 0904 hours and end time of 0940 hours. The patient was monitored throughout the entirety of the procedure by the special procedures nurse in addition to the physician performing the procedure. The moderate focal stenoses of the left brachiocephalic vein and left subclavian vein were dilated using a 14 mm high pressure balloon. Repeat venography was performed. Next, the balloon was withdrawn and used to angioplasty the moderate focal stenosis involving the outflow vein at the mid humeral level. Low pressure was used at this location. Repeat DSA images were obtained. At the end of the procedure, a purse string suture was placed around the entry site and hemostasis was achieved. A sterile dressing was applied. The patient tolerated the procedure well and without complications. FINDINGS: Images of the dialysis access show moderate focal stenoses involving the left brachiocephalic vein, left subclavian vein, and outflow vein at the mid humeral level. Mild left upper thoracic venous collaterals were identified. Post angioplasty images show a good response with a patent vein. There was resolution of the flow limiting stenoses involving the left brachiocephalic vein and the left subclavian vein. There was also resolution of the mid humeral outflow vein stenosis. The arterial anastomosis is patent and normal in caliber. No other focal flow limiting lesion was identified. IMPRESSION: \ SUCCESSFUL ANGIOPLASTY OF THE MODERATE FOCAL STENOSES INVOLVING THE LEFT BRACHIOCEPHALIC VEIN, LEFT SUBCLAVIAN VEIN, AND OUTFLOW VEIN AT THE MID HUMERAL LEVEL; DESCRIBED ABOVE. Plan: Flow within the dialysis access should be monitored and used to guide physician about the need for repeat intervention. The patient should follow up with [facility] interventional radiology in 10 weeks for repeat fistulogram. The patient's left upper extremity purse string suture can be removed in 3-5 days. FLAP PRESSER: JOSE A TRANSCRIBE DATE/TIME: Sep 01 2012 9:33P RADIOLOGIST: MELIDA ENNIS M.D. READ ON: Sep 01 2012 10:23A ORDERING DR: CULLEN PAYNE M.D. THIS DOCUMENT HAS BEEN ELECTRONICALLY SIGNED BY: MELIDA ENNIS M.D. ON: Sep 02 2012 1:39P us Historical Provider MD [facility] IR PROCEDURES Final R esult * DOLL EYE SETTER Venous (09/01/2012 9:40 AM FINANCIAL COMPLIANCE MANAGER) Anatomical Region Laterality Modality Body N/A X-Ray Angiograph y 09/01/2012 9:40 AM FINANCIAL COMPLIANCE MANAGER Narrative 09/02/2012 1:39 PM FINANCIAL COMPLIANCE MANAGER IMAGES NOT AVAILABLE IN CLINICAL DESKTOP ? FILM(S) AVAILABLE IN RADIOLOGY Acc# [id number] ASMITA 0007 - ANGIO SELECT EACH ADD VESSEL ? RESULT: \ ??IMPRESSION: \ Acc# [id number] ASMITA 0124 - VENOGRAM EXTREMITY UNILATERAL L ?? RESULT: \ ??IMPRESSION: \ Acc# [id number] ASMITA 0057 - IR Venogram Superior Caval ? RESULT: \ ??IMPRESSION: \ Acc# [id number] ASMITA 0117 - IR Angioplasty Venous ? RESULT: \ ??IMPRESSION: \ Acc# [id number] ASMITA 0117 - IR Angioplasty Venous ? RESULT: \ ??IMPRESSION: \ Acc# [id number] ASMITA 0117 - IR Angioplasty Venous ? RESULT: \ ??IMPRESSION: \ Acc#: ??[id number] ASMITA 0191 - IR AV Fistulagram L ?? DATE OF EXAM: ??Sep 01 2012 ??9:40AM DIAGNOSIS: ??ESRD COMP D/T RENAL DIALY DEV CLINICAL HISTORY: ?? CHECK UP ?? RESULT: \ DIALYSIS FISTULOGRAM AND ANGIOPLASTY FLUOROSCOPY TIME: ??1.3 minutes. HISTORY: ??77 -year-old female with left upper extremity arterial venous graft status post intervention on 06/23/2012. ??Patient presents today for fistulogram with possible intervention for her recurrent stenoses. TECHNIQUE: ??The risks, benefits, and alternatives were discussed and informed consent was obtained. ??Prior to beginning the procedure, Pollock Protocol was performed to confirm the patient's identity and the planned procedure. ??Maximum sterile barriers including cap, mask, hand hygiene, sterile gloves, sterile gown, large sterile drape, and 2% chlorhexidine for cutaneous antisepsis were used. The skin over the left upper extremity dialysis arterial venous fistula was infiltrated with 1% lidocaine. ??Access was obtained using a micropuncture needle followed by placement of a 5 Swedish catheter. Fluoroscopy was used for all catheter and guide wire manipulations. Multiple DSA images were obtained to visualize the dialysis access from the arterial anastomosis through the superior vena cava. ??After identifying multiple focal stenoses involving the left brachiocephalic vein, left subclavian vein, and outflow vein at the mid humeral level, a 7 Swedish vascular sheath was placed. Conscious sedation was administered using 0.5 milligrams of Versed and 50 micrograms of Fentanyl at a procedure start time of 0904 hours and end time of 0940 hours. The patient was monitored throughout the entirety of the procedure by the special procedures nurse in addition to the physician performing the procedure. The moderate focal stenoses of the left brachiocephalic vein and left subclavian vein were dilated using a 14 mm high pressure balloon. ??Repeat venography was performed. ?? Next, the balloon was withdrawn and used to angioplasty the moderate focal stenosis involving the outflow vein at the mid humeral level. ??Low pressure was used at this location. Repeat DSA images were obtained. ??At the end of the procedure, a purse string suture was placed around the entry site and hemostasis was achieved. A sterile dressing was applied. The patient tolerated the procedure well and without complications. FINDINGS: Images of the dialysis access show moderate focal stenoses involving the left brachiocephalic vein, left subclavian vein, and outflow vein at the mid humeral level. Mild left upper thoracic venous collaterals were identified. Post angioplasty images show a good response with a patent vein. There was resolution of the flow limiting stenoses involving the left brachiocephalic vein and the left subclavian vein. ??There was also resolution of the mid humeral outflow vein stenosis. ??The arterial anastomosis is patent and normal in caliber. No other focal flow limiting lesion was identified. IMPRESSION: ?\ SUCCESSFUL ANGIOPLASTY OF THE MODERATE FOCAL STENOSES INVOLVING THE LEFT BRACHIOCEPHALIC VEIN, LEFT SUBCLAVIAN VEIN, AND OUTFLOW VEIN AT THE MID HUMERAL LEVEL; DESCRIBED ABOVE. Plan: Flow within the dialysis access should be monitored and used to guide physician about the need for repeat intervention. ??The patient should follow up with [facility] interventional radiology in 10 weeks for repeat fistulogram. ??The patient's left upper extremity purse string suture can be removed in 3-5 days. FLAP PRESSER: ??DM2 TRANSCRIBE DATE/TIME: ??Sep 01 2012 ??9:33P RADIOLOGIST: ??MELIDA ENNIS M.D. ??READ ON: ??Sep 01 2012 10:23A ORDERING DR: CULLEN PAYNE M.D. THIS DOCUMENT HAS BEEN ELECTRONICALLY SIGNED BY: ??MELIDA ENNIS M.D. ??ON: ??Sep 02 2012 ??1:39P Procedure Note Provider, MD Diego - 10/30/2016 IMAGES NOT AVAILABLE IN CLINICAL DESKTOP FILM(S) AVAILABLE IN RADIOLOGY Acc# [id number] ASMITA 0007 - ANGIO SELECT EACH ADD VESSEL RESULT: \ IMPRESSION: \ Acc# [id number] ASMITA 0124 - VENOGRAM EXTREMITY UNILATERAL L RESULT: \ IMPRESSION: \ Acc# [id number] ASMITA 0057 - IR Venogram Superior Caval RESULT: \ IMPRESSION: \ Acc# [id number] ASMITA 0117 - IR Angioplasty Venous RESULT: \ IMPRESSION: \ Acc# [id number] ASMITA 0117 - IR Angioplasty Venous RESULT: \ IMPRESSION: \ Acc# [id number] ASMITA 0117 - IR Angioplasty Venous RESULT: \ IMPRESSION: \ Acc#: [id number] ASMITA 0191 - IR AV Fistulagram L DATE OF EXAM: Sep 01 2012 9:40AM DIAGNOSIS: ESRD COMP D/T RENAL DIALY DEV CLINICAL HISTORY: CHECK UP RESULT: \ DIALYSIS FISTULOGRAM AND ANGIOPLASTY FLUOROSCOPY TIME: 1.3 minutes. HISTORY: 77 -year-old female with left upper extremity arterial venous graft status post intervention on 06/23/2012. Patient presents today for fistulogram with possible intervention for her recurrent stenoses. TECHNIQUE: The risks, benefits, and alternatives were discussed and informed consent was obtained. Prior to beginning the procedure, Pollock Protocol was performed to confirm the patient's identity and the planned procedure. Maximum sterile barriers including cap, mask, hand hygiene, sterile gloves, sterile gown, large sterile drape, and 2% chlorhexidine for cutaneous antisepsis were used. The skin over the left upper extremity dialysis arterial venous fistula was infiltrated with 1% lidocaine. Access was obtained using a micropuncture needle followed by placement of a 5 Swedish catheter. Fluoroscopy was used for all catheter and guide wire manipulations. Multiple DSA images were obtained to visualize the dialysis access from the arterial anastomosis through the superior vena cava. After identifying multiple focal stenoses involving the left brachiocephalic vein, left subclavian vein, and outflow vein at the mid humeral level, a 7 Swedish vascular sheath was placed. Conscious sedation was administered using 0.5 milligrams of Versed and 50 micrograms of Fentanyl at a procedure start time of 0904 hours and end time of 0940 hours. The patient was monitored throughout the entirety of the procedure by the special procedures nurse in addition to the physician performing the procedure. The moderate focal stenoses of the left brachiocephalic vein and left subclavian vein were dilated using a 14 mm high pressure balloon. Repeat venography was performed. Next, the balloon was withdrawn and used to angioplasty the moderate focal stenosis involving the outflow vein at the mid humeral level. Low pressure was used at this location. Repeat DSA images were obtained. At the end of the procedure, a purse string suture was placed around the entry site and hemostasis was achieved. A sterile dressing was applied. The patient tolerated the procedure well and without complications. FINDINGS: Images of the dialysis access show moderate focal stenoses involving the left brachiocephalic vein, left subclavian vein, and outflow vein at the mid humeral level. Mild left upper thoracic venous collaterals were identified. Post angioplasty images show a good response with a patent vein. There was resolution of the flow limiting stenoses involving the left brachiocephalic vein and the left subclavian vein. There was also resolution of the mid humeral outflow vein stenosis. The arterial anastomosis is patent and normal in caliber. No other focal flow limiting lesion was identified. IMPRESSION: \ SUCCESSFUL ANGIOPLASTY OF THE MODERATE FOCAL STENOSES INVOLVING THE LEFT BRACHIOCEPHALIC VEIN, LEFT SUBCLAVIAN VEIN, AND OUTFLOW VEIN AT THE MID HUMERAL LEVEL; DESCRIBED ABOVE. Plan: Flow within the dialysis access should be monitored and used to guide physician about the need for repeat intervention. The patient should follow up with [facility] interventional radiology in 10 weeks for repeat fistulogram. The patient's left upper extremity purse string suture can be removed in 3-5 days. FLAP PRESSER: JOSE A TRANSCRIBE DATE/TIME: Sep 01 2012 9:33P RADIOLOGIST: MELIDA ENNIS M.D. READ ON: Sep 01 2012 10:23A ORDERING DR: CULLEN PAYNE M.D. THIS DOCUMENT HAS BEEN ELECTRONICALLY SIGNED BY: MEILDA ENNIS M.D. ON: Sep 02 2012 1:39P us Historical Provider MD [facility] IR PROCEDURES Final R esult * DOLL EYE SETTER Venous (09/01/2012 9:40 AM FINANCIAL COMPLIANCE MANAGER) Anatomical Region Laterality Modality Body N/A X-Ray Angiograph y 09/01/2012 9:40 AM FINANCIAL COMPLIANCE MANAGER Narrative 09/02/2012 1:39 PM FINANCIAL COMPLIANCE MANAGER IMAGES NOT AVAILABLE IN CLINICAL DESKTOP ? FILM(S) AVAILABLE IN RADIOLOGY Acc# [id number] ASMITA 0007 - ANGIO SELECT EACH ADD VESSEL ? RESULT: \ ??IMPRESSION: \ Acc# [id number] ASMITA 0124 - VENOGRAM EXTREMITY UNILATERAL L ?? RESULT: \ ??IMPRESSION: \ Acc# [id number] ASMITA 0057 - IR Venogram Superior Caval ? RESULT: \ ??IMPRESSION: \ Acc# [id number] ASMITA 0117 - IR Angioplasty Venous ? RESULT: \ ??IMPRESSION: \ Acc# [id number] ASMITA 0117 - IR Angioplasty Venous ? RESULT: \ ??IMPRESSION: \ Acc# [id number] ASMITA 0117 - IR Angioplasty Venous ? RESULT: \ ??IMPRESSION: \ Acc#: ??[id number] ASMITA 0191 - IR AV Fistulagram L ?? DATE OF EXAM: ??Sep 01 2012 ??9:40AM DIAGNOSIS: ??ESRD COMP D/T RENAL DIALY DEV CLINICAL HISTORY: ?? CHECK UP ?? RESULT: \ DIALYSIS FISTULOGRAM AND ANGIOPLASTY FLUOROSCOPY TIME: ??1.3 minutes. HISTORY: ??77 -year-old female with left upper extremity arterial venous graft status post intervention on 06/23/2012. ??Patient presents today for fistulogram with possible intervention for her recurrent stenoses. TECHNIQUE: ??The risks, benefits, and alternatives were discussed and informed consent was obtained. ??Prior to beginning the procedure, Pollock Protocol was performed to confirm the patient's identity and the planned procedure. ??Maximum sterile barriers including cap, mask, hand hygiene, sterile gloves, sterile gown, large sterile drape, and 2% chlorhexidine for cutaneous antisepsis were used. The skin over the left upper extremity dialysis arterial venous fistula was infiltrated with 1% lidocaine. ??Access was obtained using a micropuncture needle followed by placement of a 5 Swedish catheter. Fluoroscopy was used for all catheter and guide wire manipulations. Multiple DSA images were obtained to visualize the dialysis access from the arterial anastomosis through the superior vena cava. ??After identifying multiple focal stenoses involving the left brachiocephalic vein, left subclavian vein, and outflow vein at the mid humeral level, a 7 Swedish vascular sheath was placed. Conscious sedation was administered using 0.5 milligrams of Versed and 50 micrograms of Fentanyl at a procedure start time of 0904 hours and end time of 0940 hours. The patient was monitored throughout the entirety of the procedure by the special procedures nurse in addition to the physician performing the procedure. The moderate focal stenoses of the left brachiocephalic vein and left subclavian vein were dilated using a 14 mm high pressure balloon. ??Repeat venography was performed. ?? Next, the balloon was withdrawn and used to angioplasty the moderate focal stenosis involving the outflow vein at the mid humeral level. ??Low pressure was used at this location. Repeat DSA images were obtained. ??At the end of the procedure, a purse string suture was placed around the entry site and hemostasis was achieved. A sterile dressing was applied. The patient tolerated the procedure well and without complications. FINDINGS: Images of the dialysis access show moderate focal stenoses involving the left brachiocephalic vein, left subclavian vein, and outflow vein at the mid humeral level. Mild left upper thoracic venous collaterals were identified. Post angioplasty images show a good response with a patent vein. There was resolution of the flow limiting stenoses involving the left brachiocephalic vein and the left subclavian vein. ??There was also resolution of the mid humeral outflow vein stenosis. ??The arterial anastomosis is patent and normal in caliber. No other focal flow limiting lesion was identified. IMPRESSION: ?\ SUCCESSFUL ANGIOPLASTY OF THE MODERATE FOCAL STENOSES INVOLVING THE LEFT BRACHIOCEPHALIC VEIN, LEFT SUBCLAVIAN VEIN, AND OUTFLOW VEIN AT THE MID HUMERAL LEVEL; DESCRIBED ABOVE. Plan: Flow within the dialysis access should be monitored and used to guide physician about the need for repeat intervention. ??The patient should follow up with [facility] interventional radiology in 10 weeks for repeat fistulogram. ??The patient's left upper extremity purse string suture can be removed in 3-5 days. FLAP PRESSER: ??DM2 TRANSCRIBE DATE/TIME: ??Sep 01 2012 ??9:33P RADIOLOGIST: ??MELIDA ENNIS M.D. ??READ ON: ??Sep 01 2012 10:23A ORDERING DR: CULLEN PAYNE M.D. THIS DOCUMENT HAS BEEN ELECTRONICALLY SIGNED BY: ??MELIDA ENNIS M.D. ??ON: ??Sep 02 2012 ??1:39P Procedure Note Provider, MD Diego - 10/30/2016 IMAGES NOT AVAILABLE IN CLINICAL DESKTOP FILM(S) AVAILABLE IN RADIOLOGY Acc# [id number] ASMITA 0007 - ANGIO SELECT EACH ADD VESSEL RESULT: \ IMPRESSION: \ Acc# [id number] ASMITA 0124 - VENOGRAM EXTREMITY UNILATERAL L RESULT: \ IMPRESSION: \ Acc# [id number] ASMITA 0057 - IR Venogram Superior Caval RESULT: \ IMPRESSION: \ Acc# [id number] ASMITA 0117 - IR Angioplasty Venous RESULT: \ IMPRESSION: \ Acc# [id number] ASMITA 0117 - IR Angioplasty Venous RESULT: \ IMPRESSION: \ Acc# [id number] ASMITA 0117 - IR Angioplasty Venous RESULT: \ IMPRESSION: \ Acc#: [id number] ASMITA 0191 - IR AV Fistulagram L DATE OF EXAM: Sep 01 2012 9:40AM DIAGNOSIS: ESRD COMP D/T RENAL DIALY DEV CLINICAL HISTORY: CHECK UP RESULT: \ DIALYSIS FISTULOGRAM AND ANGIOPLASTY FLUOROSCOPY TIME: 1.3 minutes. HISTORY: 77 -year-old female with left upper extremity arterial venous graft status post intervention on 06/23/2012. Patient presents today for fistulogram with possible intervention for her recurrent stenoses. TECHNIQUE: The risks, benefits, and alternatives were discussed and informed consent was obtained. Prior to beginning the procedure, Pollock Protocol was performed to confirm the patient's identity and the planned procedure. Maximum sterile barriers including cap, mask, hand hygiene, sterile gloves, sterile gown, large sterile drape, and 2% chlorhexidine for cutaneous antisepsis were used. The skin over the left upper extremity dialysis arterial venous fistula was infiltrated with 1% lidocaine. Access was obtained using a micropuncture needle followed by placement of a 5 Swedish catheter. Fluoroscopy was used for all catheter and guide wire manipulations. Multiple DSA images were obtained to visualize the dialysis access from the arterial anastomosis through the superior vena cava. After identifying multiple focal stenoses involving the left brachiocephalic vein, left subclavian vein, and outflow vein at the mid humeral level, a 7 Swedish vascular sheath was placed. Conscious sedation was administered using 0.5 milligrams of Versed and 50 micrograms of Fentanyl at a procedure start time of 0904 hours and end time of 0940 hours. The patient was monitored throughout the entirety of the procedure by the special procedures nurse in addition to the physician performing the procedure. The moderate focal stenoses of the left brachiocephalic vein and left subclavian vein were dilated using a 14 mm high pressure balloon. Repeat venography was performed. Next, the balloon was withdrawn and used to angioplasty the moderate focal stenosis involving the outflow vein at the mid humeral level. Low pressure was used at this location. Repeat DSA images were obtained. At the end of the procedure, a purse string suture was placed around the entry site and hemostasis was achieved. A sterile dressing was applied. The patient tolerated the procedure well and without complications. FINDINGS: Images of the dialysis access show moderate focal stenoses involving the left brachiocephalic vein, left subclavian vein, and outflow vein at the mid humeral level. Mild left upper thoracic venous collaterals were identified. Post angioplasty images show a good response with a patent vein. There was resolution of the flow limiting stenoses involving the left brachiocephalic vein and the left subclavian vein. There was also resolution of the mid humeral outflow vein stenosis. The arterial anastomosis is patent and normal in caliber. No other focal flow limiting lesion was identified. IMPRESSION: \ SUCCESSFUL ANGIOPLASTY OF THE MODERATE FOCAL STENOSES INVOLVING THE LEFT BRACHIOCEPHALIC VEIN, LEFT SUBCLAVIAN VEIN, AND OUTFLOW VEIN AT THE MID HUMERAL LEVEL; DESCRIBED ABOVE. Plan: Flow within the dialysis access should be monitored and used to guide physician about the need for repeat intervention. The patient should follow up with [facility] interventional radiology in 10 weeks for repeat fistulogram. The patient's left upper extremity purse string suture can be removed in 3-5 days. FLAP PRESSER: JOSE A TRANSCRIBE DATE/TIME: Sep 01 2012 9:33P RADIOLOGIST: MELIDA ENNIS M.D. READ ON: Sep 01 2012 10:23A ORDERING DR: CULLEN PAYNE M.D. THIS DOCUMENT HAS BEEN ELECTRONICALLY SIGNED BY: MELIDA ENNIS M.D. ON: Sep 02 2012 1:39P us Historical Provider MD [facility] IR PROCEDURES Final R esult * SVCgram (09/01/2012 9:40 AM FINANCIAL COMPLIANCE MANAGER) Anatomical Region Laterality Modality Body N/A X-Ray Angiograph y 09/01/2012 9:40 AM FINANCIAL COMPLIANCE MANAGER Narrative 09/02/2012 1:39 PM FINANCIAL COMPLIANCE MANAGER IMAGES NOT AVAILABLE IN CLINICAL DESKTOP ? FILM(S) AVAILABLE IN RADIOLOGY Acc# [id number] ASMITA 0007 - ANGIO SELECT EACH ADD VESSEL ? RESULT: \ ??IMPRESSION: \ Acc# [id number] ASMITA 0124 - VENOGRAM EXTREMITY UNILATERAL L ?? RESULT: \ ??IMPRESSION: \ Acc# [id number] ASMITA 0057 - IR Venogram Superior Caval ? RESULT: \ ??IMPRESSION: \ Acc# [id number] ASMITA 0117 - IR Angioplasty Venous ? RESULT: \ ??IMPRESSION: \ Acc# [id number] ASMITA 0117 - IR Angioplasty Venous ? RESULT: \ ??IMPRESSION: \ Acc# [id number] ASMITA 0117 - IR Angioplasty Venous ? RESULT: \ ??IMPRESSION: \ Acc#: ??[id number] ASMITA 0191 - IR AV Fistulagram L ?? DATE OF EXAM: ??Sep 01 2012 ??9:40AM DIAGNOSIS: ??ESRD COMP D/T RENAL DIALY DEV CLINICAL HISTORY: ?? CHECK UP ?? RESULT: \ DIALYSIS FISTULOGRAM AND ANGIOPLASTY FLUOROSCOPY TIME: ??1.3 minutes. HISTORY: ??77 -year-old female with left upper extremity arterial venous graft status post intervention on 06/23/2012. ??Patient presents today for fistulogram with possible intervention for her recurrent stenoses. TECHNIQUE: ??The risks, benefits, and alternatives were discussed and informed consent was obtained. ??Prior to beginning the procedure, Pollock Protocol was performed to confirm the patient's identity and the planned procedure. ??Maximum sterile barriers including cap, mask, hand hygiene, sterile gloves, sterile gown, large sterile drape, and 2% chlorhexidine for cutaneous antisepsis were used. The skin over the left upper extremity dialysis arterial venous fistula was infiltrated with 1% lidocaine. ??Access was obtained using a micropuncture needle followed by placement of a 5 Swedish catheter. Fluoroscopy was used for all catheter and guide wire manipulations. Multiple DSA images were obtained to visualize the dialysis access from the arterial anastomosis through the superior vena cava. ??After identifying multiple focal stenoses involving the left brachiocephalic vein, left subclavian vein, and outflow vein at the mid humeral level, a 7 Swedish vascular sheath was placed. Conscious sedation was administered using 0.5 milligrams of Versed and 50 micrograms of Fentanyl at a procedure start time of 0904 hours and end time of 0940 hours. The patient was monitored throughout the entirety of the procedure by the special procedures nurse in addition to the physician performing the procedure. The moderate focal stenoses of the left brachiocephalic vein and left subclavian vein were dilated using a 14 mm high pressure balloon. ??Repeat venography was performed. ?? Next, the balloon was withdrawn and used to angioplasty the moderate focal stenosis involving the outflow vein at the mid humeral level. ??Low pressure was used at this location. Repeat DSA images were obtained. ??At the end of the procedure, a purse string suture was placed around the entry site and hemostasis was achieved. A sterile dressing was applied. The patient tolerated the procedure well and without complications. FINDINGS: Images of the dialysis access show moderate focal stenoses involving the left brachiocephalic vein, left subclavian vein, and outflow vein at the mid humeral level. Mild left upper thoracic venous collaterals were identified. Post angioplasty images show a good response with a patent vein. There was resolution of the flow limiting stenoses involving the left brachiocephalic vein and the left subclavian vein. ??There was also resolution of the mid humeral outflow vein stenosis. ??The arterial anastomosis is patent and normal in caliber. No other focal flow limiting lesion was identified. IMPRESSION: ?\ SUCCESSFUL ANGIOPLASTY OF THE MODERATE FOCAL STENOSES INVOLVING THE LEFT BRACHIOCEPHALIC VEIN, LEFT SUBCLAVIAN VEIN, AND OUTFLOW VEIN AT THE MID HUMERAL LEVEL; DESCRIBED ABOVE. Plan: Flow within the dialysis access should be monitored and used to guide physician about the need for repeat intervention. ??The patient should follow up with [facility] interventional radiology in 10 weeks for repeat fistulogram. ??The patient's left upper extremity purse string suture can be removed in 3-5 days. FLAP PRESSER: ??DM2 TRANSCRIBE DATE/TIME: ??Sep 01 2012 ??9:33P RADIOLOGIST: ??MELIDA ENNIS M.D. ??READ ON: ??Sep 01 2012 10:23A ORDERING DR: CULLEN PAYNE M.D. THIS DOCUMENT HAS BEEN ELECTRONICALLY SIGNED BY: ??MELIDA ENNIS M.D. ??ON: ??Sep 02 2012 ??1:39P Procedure Note Provider, MD Diego - 10/30/2016 IMAGES NOT AVAILABLE IN CLINICAL DESKTOP FILM(S) AVAILABLE IN RADIOLOGY Acc# [id number] ASMITA 0007 - ANGIO SELECT EACH ADD VESSEL RESULT: \ IMPRESSION: \ Acc# [id number] ASMITA 0124 - VENOGRAM EXTREMITY UNILATERAL L RESULT: \ IMPRESSION: \ Acc# [id number] ASMITA 0057 - IR Venogram Superior Caval RESULT: \ IMPRESSION: \ Acc# [id number] ASMITA 0117 - IR Angioplasty Venous RESULT: \ IMPRESSION: \ Acc# [id number] ASMITA 0117 - IR Angioplasty Venous RESULT: \ IMPRESSION: \ Acc# [id number] ASMITA 0117 - IR Angioplasty Venous RESULT: \ IMPRESSION: \ Acc#: [id number] ASMITA 0191 - IR AV Fistulagram L DATE OF EXAM: Sep 01 2012 9:40AM DIAGNOSIS: ESRD COMP D/T RENAL DIALY DEV CLINICAL HISTORY: CHECK UP RESULT: \ DIALYSIS FISTULOGRAM AND ANGIOPLASTY FLUOROSCOPY TIME: 1.3 minutes. HISTORY: 77 -year-old female with left upper extremity arterial venous graft status post intervention on 06/23/2012. Patient presents today for fistulogram with possible intervention for her recurrent stenoses. TECHNIQUE: The risks, benefits, and alternatives were discussed and informed consent was obtained. Prior to beginning the procedure, Pollock Protocol was performed to confirm the patient's identity and the planned procedure. Maximum sterile barriers including cap, mask, hand hygiene, sterile gloves, sterile gown, large sterile drape, and 2% chlorhexidine for cutaneous antisepsis were used. The skin over the left upper extremity dialysis arterial venous fistula was infiltrated with 1% lidocaine. Access was obtained using a micropuncture needle followed by placement of a 5 Swedish catheter. Fluoroscopy was used for all catheter and guide wire manipulations. Multiple DSA images were obtained to visualize the dialysis access from the arterial anastomosis through the superior vena cava. After identifying multiple focal stenoses involving the left brachiocephalic vein, left subclavian vein, and outflow vein at the mid humeral level, a 7 Swedish vascular sheath was placed. Conscious sedation was administered using 0.5 milligrams of Versed and 50 micrograms of Fentanyl at a procedure start time of 0904 hours and end time of 0940 hours. The patient was monitored throughout the entirety of the procedure by the special procedures nurse in addition to the physician performing the procedure. The moderate focal stenoses of the left brachiocephalic vein and left subclavian vein were dilated using a 14 mm high pressure balloon. Repeat venography was performed. Next, the balloon was withdrawn and used to angioplasty the moderate focal stenosis involving the outflow vein at the mid humeral level. Low pressure was used at this location. Repeat DSA images were obtained. At the end of the procedure, a purse string suture was placed around the entry site and hemostasis was achieved. A sterile dressing was applied. The patient tolerated the procedure well and without complications. FINDINGS: Images of the dialysis access show moderate focal stenoses involving the left brachiocephalic vein, left subclavian vein, and outflow vein at the mid humeral level. Mild left upper thoracic venous collaterals were identified. Post angioplasty images show a good response with a patent vein. There was resolution of the flow limiting stenoses involving the left brachiocephalic vein and the left subclavian vein. There was also resolution of the mid humeral outflow vein stenosis. The arterial anastomosis is patent and normal in caliber. No other focal flow limiting lesion was identified. IMPRESSION: \ SUCCESSFUL ANGIOPLASTY OF THE MODERATE FOCAL STENOSES INVOLVING THE LEFT BRACHIOCEPHALIC VEIN, LEFT SUBCLAVIAN VEIN, AND OUTFLOW VEIN AT THE MID HUMERAL LEVEL; DESCRIBED ABOVE. Plan: Flow within the dialysis access should be monitored and used to guide physician about the need for repeat intervention. The patient should follow up with [facility] interventional radiology in 10 weeks for repeat fistulogram. The patient's left upper extremity purse string suture can be removed in 3-5 days. FLAP PRESSER: JOSE A TRANSCRIBE DATE/TIME: Sep 01 2012 9:33P RADIOLOGIST: MELIDA ENNIS M.D. READ ON: Sep 01 2012 10:23A ORDERING DR: CULLEN PAYNE M.D. THIS DOCUMENT HAS BEEN ELECTRONICALLY SIGNED BY: MELIDA ENNIS M.D. ON: Sep 02 2012 1:39P us Historical Provider MD [facility] IR PROCEDURES Final R esult * Angiogram Arteriovenous Shunt (09/01/2012 9:40 AM FINANCIAL COMPLIANCE MANAGER) Anatomical Region Laterality Modality Body N/A X-Ray Angiograph y 09/01/2012 9:40 AM FINANCIAL COMPLIANCE MANAGER Narrative 09/02/2012 1:39 PM FINANCIAL COMPLIANCE MANAGER IMAGES NOT AVAILABLE IN CLINICAL DESKTOP ? FILM(S) AVAILABLE IN RADIOLOGY Acc# [id number] ASMITA 0007 - ANGIO SELECT EACH ADD VESSEL ? RESULT: \ ??IMPRESSION: \ Acc# [id number] ASMITA 0124 - VENOGRAM EXTREMITY UNILATERAL L ?? RESULT: \ ??IMPRESSION: \ Acc# [id number] ASMITA 0057 - IR Venogram Superior Caval ? RESULT: \ ??IMPRESSION: \ Acc# [id number] ASMITA 0117 - IR Angioplasty Venous ? RESULT: \ ??IMPRESSION: \ Acc# [id number] ASMITA 0117 - IR Angioplasty Venous ? RESULT: \ ??IMPRESSION: \ Acc# [id number] ASMITA 0117 - IR Angioplasty Venous ? RESULT: \ ??IMPRESSION: \ Acc#: ??[id number] ASMITA 0191 - IR AV Fistulagram L ?? DATE OF EXAM: ??Sep 01 2012 ??9:40AM DIAGNOSIS: ??ESRD COMP D/T RENAL DIALY DEV CLINICAL HISTORY: ?? CHECK UP ?? RESULT: \ DIALYSIS FISTULOGRAM AND ANGIOPLASTY FLUOROSCOPY TIME: ??1.3 minutes. HISTORY: ??77 -year-old female with left upper extremity arterial venous graft status post intervention on 06/23/2012. ??Patient presents today for fistulogram with possible intervention for her recurrent stenoses. TECHNIQUE: ??The risks, benefits, and alternatives were discussed and informed consent was obtained. ??Prior to beginning the procedure, Pollock Protocol was performed to confirm the patient's identity and the planned procedure. ??Maximum sterile barriers including cap, mask, hand hygiene, sterile gloves, sterile gown, large sterile drape, and 2% chlorhexidine for cutaneous antisepsis were used. The skin over the left upper extremity dialysis arterial venous fistula was infiltrated with 1% lidocaine. ??Access was obtained using a micropuncture needle followed by placement of a 5 Swedish catheter. Fluoroscopy was used for all catheter and guide wire manipulations. Multiple DSA images were obtained to visualize the dialysis access from the arterial anastomosis through the superior vena cava. ??After identifying multiple focal stenoses involving the left brachiocephalic vein, left subclavian vein, and outflow vein at the mid humeral level, a 7 Swedish vascular sheath was placed. Conscious sedation was administered using 0.5 milligrams of Versed and 50 micrograms of Fentanyl at a procedure start time of 0904 hours and end time of 0940 hours. The patient was monitored throughout the entirety of the procedure by the special procedures nurse in addition to the physician performing the procedure. The moderate focal stenoses of the left brachiocephalic vein and left subclavian vein were dilated using a 14 mm high pressure balloon. ??Repeat venography was performed. ?? Next, the balloon was withdrawn and used to angioplasty the moderate focal stenosis involving the outflow vein at the mid humeral level. ??Low pressure was used at this location. Repeat DSA images were obtained. ??At the end of the procedure, a purse string suture was placed around the entry site and hemostasis was achieved. A sterile dressing was applied. The patient tolerated the procedure well and without complications. FINDINGS: Images of the dialysis access show moderate focal stenoses involving the left brachiocephalic vein, left subclavian vein, and outflow vein at the mid humeral level. Mild left upper thoracic venous collaterals were identified. Post angioplasty images show a good response with a patent vein. There was resolution of the flow limiting stenoses involving the left brachiocephalic vein and the left subclavian vein. ??There was also resolution of the mid humeral outflow vein stenosis. ??The arterial anastomosis is patent and normal in caliber. No other focal flow limiting lesion was identified. IMPRESSION: ?\ SUCCESSFUL ANGIOPLASTY OF THE MODERATE FOCAL STENOSES INVOLVING THE LEFT BRACHIOCEPHALIC VEIN, LEFT SUBCLAVIAN VEIN, AND OUTFLOW VEIN AT THE MID HUMERAL LEVEL; DESCRIBED ABOVE. Plan: Flow within the dialysis access should be monitored and used to guide physician about the need for repeat intervention. ??The patient should follow up with [facility] interventional radiology in 10 weeks for repeat fistulogram. ??The patient's left upper extremity purse string suture can be removed in 3-5 days. FLAP PRESSER: ??DM2 TRANSCRIBE DATE/TIME: ??Sep 01 2012 ??9:33P RADIOLOGIST: ??MELIDA ENNIS M.D. ??READ ON: ??Sep 01 2012 10:23A ORDERING DR: CULLEN PAYNE M.D. THIS DOCUMENT HAS BEEN ELECTRONICALLY SIGNED BY: ??MELIDA ENNIS M.D. ??ON: ??Sep 02 2012 ??1:39P Procedure Note Provider, MD Diego - 10/30/2016 IMAGES NOT AVAILABLE IN CLINICAL DESKTOP FILM(S) AVAILABLE IN RADIOLOGY Acc# [id number] ASMITA 0007 - ANGIO SELECT EACH ADD VESSEL RESULT: \ IMPRESSION: \ Acc# [id number] ASMITA 0124 - VENOGRAM EXTREMITY UNILATERAL L RESULT: \ IMPRESSION: \ Acc# [id number] ASMITA 0057 - IR Venogram Superior Caval RESULT: \ IMPRESSION: \ Acc# [id number] ASMITA 0117 - IR Angioplasty Venous RESULT: \ IMPRESSION: \ Acc# [id number] ASMITA 0117 - IR Angioplasty Venous RESULT: \ IMPRESSION: \ Acc# [id number] ASMITA 0117 - IR Angioplasty Venous RESULT: \ IMPRESSION: \ Acc#: [id number] ASMITA 0191 - IR AV Fistulagram L DATE OF EXAM: Sep 01 2012 9:40AM DIAGNOSIS: ESRD COMP D/T RENAL DIALY DEV CLINICAL HISTORY: CHECK UP RESULT: \ DIALYSIS FISTULOGRAM AND ANGIOPLASTY FLUOROSCOPY TIME: 1.3 minutes. HISTORY: 77 -year-old female with left upper extremity arterial venous graft status post intervention on 06/23/2012. Patient presents today for fistulogram with possible intervention for her recurrent stenoses. TECHNIQUE: The risks, benefits, and alternatives were discussed and informed consent was obtained. Prior to beginning the procedure, Pollock Protocol was performed to confirm the patient's identity and the planned procedure. Maximum sterile barriers including cap, mask, hand hygiene, sterile gloves, sterile gown, large sterile drape, and 2% chlorhexidine for cutaneous antisepsis were used. The skin over the left upper extremity dialysis arterial venous fistula was infiltrated with 1% lidocaine. Access was obtained using a micropuncture needle followed by placement of a 5 Swedish catheter. Fluoroscopy was used for all catheter and guide wire manipulations. Multiple DSA images were obtained to visualize the dialysis access from the arterial anastomosis through the superior vena cava. After identifying multiple focal stenoses involving the left brachiocephalic vein, left subclavian vein, and outflow vein at the mid humeral level, a 7 Swedish vascular sheath was placed. Conscious sedation was administered using 0.5 milligrams of Versed and 50 micrograms of Fentanyl at a procedure start time of 0904 hours and end time of 0940 hours. The patient was monitored throughout the entirety of the procedure by the special procedures nurse in addition to the physician performing the procedure. The moderate focal stenoses of the left brachiocephalic vein and left subclavian vein were dilated using a 14 mm high pressure balloon. Repeat venography was performed. Next, the balloon was withdrawn and used to angioplasty the moderate focal stenosis involving the outflow vein at the mid humeral level. Low pressure was used at this location. Repeat DSA images were obtained. At the end of the procedure, a purse string suture was placed around the entry site and hemostasis was achieved. A sterile dressing was applied. The patient tolerated the procedure well and without complications. FINDINGS: Images of the dialysis access show moderate focal stenoses involving the left brachiocephalic vein, left subclavian vein, and outflow vein at the mid humeral level. Mild left upper thoracic venous collaterals were identified. Post angioplasty images show a good response with a patent vein. There was resolution of the flow limiting stenoses involving the left brachiocephalic vein and the left subclavian vein. There was also resolution of the mid humeral outflow vein stenosis. The arterial anastomosis is patent and normal in caliber. No other focal flow limiting lesion was identified. IMPRESSION: \ SUCCESSFUL ANGIOPLASTY OF THE MODERATE FOCAL STENOSES INVOLVING THE LEFT BRACHIOCEPHALIC VEIN, LEFT SUBCLAVIAN VEIN, AND OUTFLOW VEIN AT THE MID HUMERAL LEVEL; DESCRIBED ABOVE. Plan: Flow within the dialysis access should be monitored and used to guide physician about the need for repeat intervention. The patient should follow up with [facility] interventional radiology in 10 weeks for repeat fistulogram. The patient's left upper extremity purse string suture can be removed in 3-5 days. FLAP PRESSER: JOSE A TRANSCRIBE DATE/TIME: Sep 01 2012 9:33P RADIOLOGIST: MELIDA ENNIS M.D. READ ON: Sep 01 2012 10:23A ORDERING DR: CULLEN PAYNE M.D. THIS DOCUMENT HAS BEEN ELECTRONICALLY SIGNED BY: MELIDA ENNIS M.D. ON: Sep 02 2012 1:39P us Historical Provider MD [facility] IR PROCEDURES Final R esult documented in this encounter Visit Diagnoses Diagnosis Complication from renal dialysis device Surgical operation with anastomosis, bypass, or graft, with natural or artificial tissues used as implant causing abnormal patient reaction, or later complication Unspecified place of occurrence documented in this encounter Care Teams Tree Worker Relationship Specialty Start Date End Date Burke Rosenberg DO [address] [address] PCP - General 09/27/10 02/19/14 documented as of this encounter
--- OUTSIDE RECORDS SUMMARY | 2024-06-27 02:00 | XMS_ITS | Encounter Summary ---
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; Chronic kidney disease; Hypothyroidism Social History Tobacco Use Types Packs/Day Years Used Date Smoking Tobacco: Never Assessed Comments Unknown Sex and Gender Information Value Date Recorded Sex Assigned at Not on file Legal Sex Female 1:13 PM GUNITE MIXER Gender Identity Not on file Sexual Orientation Not on file documented as of this encounter Plan of Treatment Not on file documented as of this encounter Visit Diagnoses Diagnosis 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
--- OUTSIDE RECORDS SUMMARY | 2024-06-27 02:00 | XMS_ITS | Encounter Summary ---
Author Organization [facility] Healthcare Address [address] [place] [address] Care Team Providers Care Boat Laborer Name Role Phone Unavailable Primary Care Provider Unavailabl e Encounter Details Date Type Department Care Team (Late st Contact Info) Description 09/15/2008 12:01 AM CDT - 09/15/2008 11:59 PM CDT Hospital Encounter [facility] Tisha Brown Dysphagia Social History Tobacco Use Types Packs/Day Years Used Date Smoking Tobacco: Never Assessed Comments Unknown Sex and Gender Information Value Date Recorded Sex Assigned at Not on file Legal Sex Female 1:13 PM FIELD TEST ENGINEER Gender Identity Not on file Sexual Orientation Not on file documented as of this encounter Plan of Treatment Not on file documented as of this encounter Visit Diagnoses Diagnosis Dysphagia documented in this encounter
--- OUTSIDE RECORDS SUMMARY | 2024-06-27 02:00 | XMS_ITS | Encounter Summary ---
Author Organization [facility] Healthcare Address [address] [place] [address] Care Team Providers Care Police Specialist Name Role Phone Unavailable Primary Care Provider Unavailabl e Encounter Details Date Type Department Care Team (Late st Contact Info) Description 11/28/2009 12:01 AM CDT - 11/28/2009 11:59 PM CDT Hospital Encounter [facility] Umesh Scruggs MD [address] [place] [address] Postherpetic polyneuropathy; Neuralgia, neuritis or radiculitis; Other disorders of coccyx Social History Tobacco Use Types Packs/Day Years Used Date Smoking Tobacco: Never Assessed Comments Unknown Sex and Gender Information Value Date Recorded Sex Assigned at Not on file Legal Sex Female 1:13 PM MOTION 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
--- OUTSIDE RECORDS SUMMARY | 2024-06-27 02:00 | XMS_ITS | Encounter Summary ---
Author Organization [facility] Healthcare Address [address] [place] [address] Care Team Providers Care Waste Baler Name Role Phone Unavailable Primary Care Provider Unavailabl e Encounter Details Date Type Department Care Team (Late st Contact Info) Description 10/31/2009 2:49 PM CDT - 10/31/2009 11:59 PM CDT Hospital Encounter [facility] Umesh Scruggs MD [address] [place] [address] Postherpetic polyneuropathy; Thoracic or lumbosacral neuritis or radiculitis; Symptom associated with female genital organs Social History Tobacco Use Types Packs/Day Years Used Date Smoking Tobacco: Never Assessed Comments Unknown Sex and Gender Information Value Date Recorded Sex Assigned at Not on file Legal Sex Female 1:13 PM RN CHRONIC Gender Identity Not on file Sexual Orientation Not on file documented as of this encounter Plan of Treatment Not on file documented as of this encounter Visit Diagnoses Diagnosis Postherpetic polyneuropathy Thoracic or lumbosacral neuritis or radiculitis Thoracic or lumbosacral neuritis or radiculitis, unspecified Symptom associated with female genital organs documented in this encounter
--- OUTSIDE RECORDS SUMMARY | 2024-06-27 02:00 | XMS_ITS | Encounter Summary ---
Author Organization [facility] Address [address] [place] [address] Care Team Providers Care Digital Publishing Specialist Name Role Phone Unavailable Primary Care Provider Unavailabl e Encounter Details Date Type Department Care Team (Late st Contact Info) Description 10/17/2009 11:52 AM CDT - 10/17/2009 3:24 PM CDT Hospital Encounter [facility] Ralph Barragan Jr., MD [address] [facility] [address] [address] Complication from renal dialysis device; Acute venous embolism and thrombosis of upper extremity; Other specified procedure as the cause of abnormal reaction of patient or of later complication; Compression of vein; Place of occurrence, residential institution; Hypertensive chronic kidney disease with stage 5 chronic kidney disease or end stage renal disease ([facility]); End-stage renal disease (CMS/HCC) ([facility]); Dependence on renal dialysis (CMS/HCC) ([facility]) Social History Tobacco Use Types Packs/Day Years Used Date Smoking Tobacco: Never Assessed Comments Unknown Sex and Gender Information Value Date Recorded Sex Assigned at Not on file Legal Sex Female 1:13 PM ORTHODONTIC BAND MAKER Gender Identity Not on file Sexual Orientation Not on file documented as of this encounter Plan of Treatment Not on file documented as of this encounter Visit Diagnoses Diagnosis Complication from renal dialysis device Acute venous embolism and thrombosis of upper extremity Acute venous embolism and thrombosis of upper extremity, unspecified Other specified procedure as the cause of abnormal reaction of patient or of later complication Compression of vein Place of occurrence, residential institution 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) End-stage renal disease (CMS/HCC) (HCC) 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) Renal dialysis status documented in this encounter
--- OUTSIDE RECORDS SUMMARY | 2024-06-27 02:00 | XMS_ITS | Encounter Summary ---
Author Organization [facility] Facility Care Team Providers Care Manager Spring Name Role Phone Unavailable Primary Care Provider Unavailabl e Encounter Details Date Type Department Care Team (Late st Contact Info) Description 10/04/2008 - 07/05/2009 11:59 PM PROMOTIONAL MARKETING ANALYST Hospital Encounter [facility] CLINCONV Jameel Polk Social History Tobacco Use Types Packs/Day Years Used Date Smoking Tobacco: Never Assessed Comments Unknown Sex and Gender Information Value Date Recorded Sex Assigned at Not on file Legal Sex Female 1:13 PM PROMOTIONAL MARKETING ANALYST Gender Identity Not on file Sexual Orientation Not on file documented as of this encounter Plan of Treatment Not on file documented as of this encounter Visit Diagnoses Not on filedocumented in this encounter
--- OUTSIDE RECORDS SUMMARY | 2024-06-27 02:00 | XMS_ITS | Encounter Summary ---
Author Organization [facility] Healthcare Address [address] [place] [address] Care Team Providers Care Vegetable Thinner Name Role Phone Unavailable Primary Care Provider Unavailabl e Encounter Details Date Type Department Care Team (Late st Contact Info) Description 11/03/2008 12:01 AM CDT - 12/03/2008 11:59 PM CDT Hospital [place] [address] [address] Acute renal failure (HCC) Social History Tobacco Use Types Packs/Day Years Used Date Smoking Tobacco: Never Assessed Comments Unknown Sex and Gender Information Value Date Recorded Sex Assigned at Not on file Legal Sex Female 1:13 PM PINION SORTER Gender Identity Not on file Sexual Orientation Not on file documented as of this encounter Plan of Treatment Not on file documented as of this encounter Visit Diagnoses Diagnosis Acute renal failure (HCC) Acute kidney failure, unspecified documented in this encounter
--- OUTSIDE RECORDS SUMMARY | 2024-06-27 02:00 | XMS_ITS | Encounter Summary ---
Author Organization [facility] Facility Care Team Providers Care Assistant Professor Surgical Technology Name Role Phone Unavailable Primary Care Provider Unavailabl e Encounter Details Date Type Department Care Team (Late st Contact Info) Description 10/04/2008 - 07/05/2009 11:59 PM ENERGY CONTROL OFFICER Hospital Encounter [facility] CLINCONV Social History Tobacco Use Types Packs/Day Years Used Date Smoking Tobacco: Never Assessed Comments Unknown Sex and Gender Information Value Date Recorded Sex Assigned at Not on file Legal Sex Female 1:13 PM ENERGY CONTROL OFFICER Gender Identity Not on file Sexual Orientation Not on file documented as of this encounter Plan of Treatment Not on file documented as of this encounter Visit Diagnoses Not on filedocumented in this encounter
--- OUTSIDE RECORDS SUMMARY | 2024-06-27 02:00 | XMS_ITS | Encounter Summary ---
Author Organization [facility] Healthcare Address [address] [place] [address] Care Team Providers Care Real Estate Investment Analyst Name Role Phone Unavailable Primary Care Provider Unavailabl e Encounter Details Date Type Department Care Team (Late st Contact Info) Description 01/03/2009 12:01 AM CDT - 01/03/2009 8:49 PM CDT Hospital [place] [address] [address] Acute renal failure (HCC) Social History Tobacco Use Types Packs/Day Years Used Date Smoking Tobacco: Never Assessed Comments Unknown Sex and Gender Information Value Date Recorded Sex Assigned at Not on file Legal Sex Female 1:13 PM BEEF SPECIALIST Gender Identity Not on file Sexual Orientation Not on file documented as of this encounter Plan of Treatment Not on file documented as of this encounter Visit Diagnoses Diagnosis Acute renal failure (HCC) Acute kidney failure, unspecified documented in this encounter
--- OUTSIDE RECORDS SUMMARY | 2024-06-27 02:00 | XMS_ITS | Encounter Summary ---
Author Organization [facility] Healthcare Address [address] [place] [address] Care Team Providers Care Audio/Visual Manager Name Role Phone Unavailable Primary Care Provider Unavailabl e Encounter Details Date Type Department Care Team (Late st Contact Info) Description 09/01/2009 10:28 AM HIDE DYER - 09/02/2009 1:27 PM HIDE DYER Hospital Encounter CH Ralph Barragan Jr., MD [address] 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); End-stage renal disease (CMS/HCC) (HCC); 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); Anemia in chronic kidney disease; Hypothyroidism; Leukocytopenia; Arteritis (CMS/HCC) (HCC) Social History Tobacco Use Types Packs/Day Years Used Date Smoking Tobacco: Never Assessed Comments Unknown Sex and Gender Information Value Date Recorded Sex Assigned at Not on file Legal Sex Female 1:13 PM HIDE DYER Gender Identity Not on file Sexual Orientation Not on file documented as of this encounter Plan of Treatment Not on file documented as of this encounter Visit Diagnoses Diagnosis Complication from renal dialysis device Embolism and thrombosis (CMS/HCC) (HCC) Embolism and thrombosis of unspecified site Other specified procedure as the cause of abnormal reaction of patient or of later complication Place of occurrence, residential institution 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
--- OUTSIDE RECORDS SUMMARY | 2024-06-27 02:00 | XMS_ITS | Encounter Summary ---
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); Urinary tract infection; Herpes zoster with other nervous system complications; 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); Anemia in chronic kidney disease; Arteritis (CMS/HCC) ([facility]); Leukocytopenia; Hypothyroidism Social History Tobacco Use Types Packs/Day Years Used Date Smoking Tobacco: Never Assessed Comments Unknown Sex and Gender Information Value Date Recorded Sex Assigned at Not on file Legal Sex Female 1:13 PM PROJECT MANAGEMENT PROFESSIONAL Gender Identity Not on file Sexual Orientation Not on file documented as of this encounter Plan of Treatment Not on file documented as of this encounter Visit Diagnoses Diagnosis Acute upper respiratory infection Acute upper respiratory infections of unspecified site End-stage renal disease (CMS/HCC) (HCC) 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
--- OUTSIDE RECORDS SUMMARY | 2024-06-27 02:00 | XMS_ITS | Encounter Summary ---
Author Organization [facility] Healthcare Address [address] [place] [address] Care Team Providers Care Die Mounter Name Role Phone Unavailable Primary Care Provider Unavailabl e Encounter Details Date Type Department Care Team (Latest Contact Info) Description 07/23/2009 5:15 PM DIALYSIS PATIENT CARE TECHNICIAN - 08/07/2009 8:49 PM DIALYSIS PATIENT CARE TECHNICIAN Hospital [place] [address] [address] Herpes zoster; Other specified aplastic anemias; Acute renal failure (HCC); End-stage renal disease (CMS/HCC) (HCC); Other specified hypersensitivity angiitis; 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 coli) infection; Contact dermatitis and other eczema Social History Tobacco Use Types Packs/Day Years Used Date Smoking Tobacco: Never Assessed Comments Unknown Sex and Gender Information Value Date Recorded Sex Assigned at Not on file Legal Sex Female 1:13 PM DIALYSIS PATIENT CARE TECHNICIAN Gender Identity Not on file Sexual Orientation Not on file documented as of this encounter Plan of Treatment Not on file documented as of this encounter Visit Diagnoses Diagnosis Herpes zoster Herpes zoster without mention of complication Other specified aplastic anemias Acute renal failure (HCC) Acute kidney failure, unspecified End-stage renal disease (CMS/HCC) (HCC) 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) Hyposmolality and/or hyponatremia Urinary tract infection Urinary tract infection, site not specified Nephritis and nephropathy, 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 coli) infection Escherichia coli (E. coli) infection in conditions classified elsewhere and of unspecified site Contact dermatitis and other eczema documented in this encounter
--- OUTSIDE RECORDS SUMMARY | 2024-06-27 02:00 | XMS_ITS | Encounter Summary ---
Author Organization [facility] Healthcare Address [address] [place] [address] Care Team Providers Care Union Laborer Name Role Phone Unavailable Primary Care Provider Unavailabl e Encounter Details Date Type Department Care Team (Late st Contact Info) Description 11/14/2009 7:07 AM CDT - 11/14/2009 9:35 AM CDT Hospital Encounter CH Ralph Barragan Jr., MD [address] [facility] [address] [address] Other follow-up examination; Hypertensive chronic kidney disease [...] file Legal Sex Female 1:13 PM SECURITY PROJECT MANAGER Gender Identity Not on file [...]
--- OUTSIDE RECORDS SUMMARY | 2024-06-27 02:00 | XMS_ITS | Encounter Summary ---
Author Organization [facility] Healthcare Address [address] [place] [address] Care Team Providers Care Cartography Technician Name Role Phone Unavailable Primary Care Provider Unavailabl e Encounter Details Date Type Department Care Team (Late st Contact Info) Description 10/15/2009 12:01 AM CDT - 10/15/2009 11:59 PM CDT Hospital Encounter CH Umesh Scruggs MD [address] [place] [address] Postherpetic polyneuropathy; Neuralgia, neuritis or radiculitis; Thoracic or lumbosacral neuritis or radiculitis Social History Tobacco Use Types Packs/Day Years Used Date Smoking Tobacco: Never Assessed Comments Unknown Sex and Gender Information Value Date Recorded Sex Assigned at Not on file Legal Sex Female 1:13 PM DIAZO TECHNICIAN Gender Identity Not on file Sexual Orientation Not on file documented as of this encounter Plan of Treatment Not on file documented as of this encounter Visit Diagnoses Diagnosis Postherpetic polyneuropathy Neuralgia, neuritis or radiculitis Thoracic or lumbosacral neuritis or radiculitis Thoracic or lumbosacral neuritis or radiculitis, unspecified documented in this encounter
--- OUTSIDE RECORDS SUMMARY | 2024-06-27 02:00 | XMS_ITS ---
Author Organization [facility] Address [address] [place] [address] Care Team Providers Care Life Skills Educator Name Role Phone Regina Contreras RN Unavailable [phone] Charly Biggs MD Unavailable [phone] Fadi Clemons DO Primary Care Provider [phone] Transplant Episode Kidney Recipient [facility] ([place], [place]) [facility] Organ Received: Right Kidney Transplanted on 02/10/2013 Marked as Active Follow-up on 02/10/2013 Kidney CoordinatorRegina Contreras RN Fax: N/A Email: N/A [place] Organ Diagnosis Organ Primary Contributory Kidney Other, Specify - VASCULITIS Retransplant Diagnosis Organ Primary Contributory Kidney Other, Specify - VASCULITIS Infection History Noted Survival Infection Treatment Organism Resolved 03/21/2020 7 years 1 month Chronic UTI Donor Information Organ ABO Source Meets Risk Criteria HLA Match Mismatches Cross Match Right Kidney Transplanted B DCD No A: B: DR: T cell (Negative) T cell (Negative) B cell (Positive) B cell (Positive) T cell (Negative) Right Kidney Donor Serology Results Anti-CMV CMV IgG: Positive EBV IgG EBV VCA IgG: Positive Anti-HBcAb HBC Total: Negative HBsAg HBsAg: Negative HBV DNA No results on file Anti-HCV HCV: Negative Anti-HIV I/II No results on file Anti-HTLV I/II HTLV: Not Done RPR/VDRL RPR: Negative EBV IgM EBV VCA IgM: Negative HBsAb No results on file EBNA No results on file SARS CoV-2 No results on file Care Team Name Role Phone Fax Email Regina Contreras RN Kidney Coordinator [phone] N/A N/A Regina Contreras RN Pile Driving Technician [phone] N/A N/A Galina Sanchez Primary Sole Buffer N/A N/A N/A Nikia Martinez RN Secondary Coordinator Secondary Kidney Coordinator [phone] N/A N/A Liss Huynh Secondary Sole Buffer N/A N/A N/A Brooklyn Garcia Founder / Ceo [phone] N/A N/A Events Post-Transplant Pre-Transplant Admitted: 02/10/2013 Referred: 01/02/2010 Transplanted: 02/10/2013 Evaluation began: 0 Discharged: 02/25/2013 Center waitlisted: 0 Dialysis History Dialysis History Start End Type Comments Center 08/09/2009 02/10/2013 Hemo T-T-Sat [facility] Dialysis Center Information Center Phone Fax Address [facility] [phone] [address] [facility] [address]
--- OUTSIDE RECORDS SUMMARY | 2024-06-27 02:00 | XMS_ITS | Encounter Summary ---
Author Organization [facility] Healthcare Address [address] [place] [address] Care Team Providers Care Supervisor Marble Name Role Phone Unavailable Primary Care Provider Unavailabl e Encounter Details Date Type Department Care Team (Late st Contact Info) Description 09/26/2008 10:51 AM CDT - 09/26/2008 11:59 PM CDT Hospital Encounter CH CLINCONV Dysphagia; Diaphragmatic hernia Social History Tobacco Use Types Packs/Day Years Used Date Smoking Tobacco: Never Assessed Comments Unknown Sex and Gender Information Value Date Recorded Sex Assigned at Not on file Legal Sex Female 1:13 PM PREFLIGHT INSPECTOR Gender Identity Not on file Sexual Orientation Not on file documented as of this encounter Plan of Treatment Not on file documented as of this encounter Visit Diagnoses Diagnosis Dysphagia Diaphragmatic hernia Diaphragmatic hernia without mention of obstruction or gangrene documented in this encounter
--- OUTSIDE RECORDS SUMMARY | 2024-06-27 02:00 | XMS_ITS | Encounter Summary ---
Author Organization [facility] Healthcare Address [address] [place] [address] Care Team Providers Care Direct Mail Manager Name Role Phone Unavailable Primary Care Provider Unavailabl e Encounter Details Date Type Department Care Team (Late st Contact Info) Description 07/05/2009 8:16 PM APPRAISER REAL ESTATE - 07/07/2009 3:45 PM APPRAISER REAL ESTATE Hospital [place] [address] [address] Acute renal failure (HCC); Malignant essential hypertension; Osteoarthrosis; Other disorders of arteries and arterioles; Anemia Social History Tobacco Use Types Packs/Day Years Used Date Smoking Tobacco: Never Assessed Comments Unknown Sex and Gender Information Value Date Recorded Sex Assigned at Not on file Legal Sex Female 1:13 PM APPRAISER REAL ESTATE Gender Identity Not on file Sexual Orientation Not on file documented as of this encounter Plan of Treatment Not on file documented as of this encounter Visit Diagnoses Diagnosis Acute renal failure (HCC) Acute kidney failure, unspecified Malignant essential hypertension Essential hypertension, malignant Osteoarthrosis Osteoarthrosis, unspecified whether generalized or localized, unspecified site Other disorders of arteries and arterioles Anemia Unspecified anemia documented in this encounter
--- OUTSIDE RECORDS SUMMARY | 2024-06-27 02:00 | XMS_ITS | Encounter Summary ---
Author Organization [facility] Healthcare Address [address] [place] [address] Care Team Providers Care Transit Bus Driver Name Role Phone Unavailable Primary Care Provider Unavailabl e Encounter Details Date Type Department Care Team (Latest Contact Info) Description 10/11/2008 2:14 PM CDT - 10/14/2008 11:27 AM CDT Hospital Encounter CH CLINCONTisha Goldman Other specified cardiac dysrhythmias; Congenital tracheoesophageal fistula, esophageal atresia and stenosis; Acute renal failure (HCC); Diaphragmatic hernia; Other disorders of arteries and arterioles; Essential hypertension; Hypothyroidism; Hypopotassemia; Dizziness and giddiness Social History Tobacco Use Types Packs/Day Years Used Date Smoking Tobacco: Never Assessed Comments Unknown Sex and Gender Information Value Date Recorded Sex Assigned at Not on file Legal Sex Female 1:13 PM SENIOR FINANCIAL ACCOUNTANT Gender Identity Not on file Sexual Orientation Not on file documented as of this encounter Plan of Treatment Not on file documented as of this encounter Visit Diagnoses Diagnosis Other specified cardiac dysrhythmias Congenital tracheoesophageal fistula, esophageal atresia and stenosis Acute renal failure (HCC) Acute kidney failure, unspecified Diaphragmatic hernia Diaphragmatic hernia without mention of obstruction or gangrene Other disorders of arteries and arterioles Essential hypertension Unspecified essential hypertension Hypothyroidism Unspecified hypothyroidism Hypopotassemia Dizziness and giddiness documented in this encounter
--- OUTSIDE RECORDS SUMMARY | 2024-06-27 02:00 | XMS_ITS | Encounter Summary ---
Author Organization [facility] Healthcare Address [address] [place] [address] Care Team Providers Care Clerical Investigator Name Role Phone Unavailable Primary Care Provider Unavailabl e Encounter Details Date Type Department Care Team (Late st Contact Info) Description 08/27/2009 9:16 AM PLATING ENGINEER - 08/27/2009 4:55 PM PLATING ENGINEER Hospital Encounter CH Ralph Barragan Jr., MD [address] [facility] [address] [address] End-stage renal disease (CMS/HCC) (HCC); 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) Social History Tobacco Use Types Packs/Day Years Used Date Smoking Tobacco: Never Assessed Comments Unknown Sex and Gender Information Value Date Recorded Sex Assigned at Not on file Legal Sex Female 1:13 PM PLATING ENGINEER Gender Identity Not on file Sexual Orientation Not on file documented as of this encounter Plan of Treatment Not on file documented as of this encounter Visit Diagnoses Diagnosis End-stage renal disease (CMS/HCC) (HCC) 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) Renal dialysis status documented in this encounter
--- OUTSIDE RECORDS SUMMARY | 2024-06-27 02:00 | XMS_ITS | Encounter Summary ---
Author Organization [facility] Healthcare Address [address] [place] [address] Care Team Providers Care Pet Ambassador Name Role Phone Unavailable Primary Care Provider Unavailabl e Encounter Details Date Type Department Care Team (Latest Contact Info) Description 09/25/2008 10:25 AM CDT - 10/07/2008 3:00 PM CDT Hospital Encounter CH CLINCONTisha Goldman Iron deficiency anemia due to chronic blood loss; Acute renal failure (HCC); Hyposmolality and/or hyponatremia; Cellulitis and abscess of upper arm and forearm; Diaphragmatic hernia; Hypothyroidism; Mitral valve disorder; Other and unspecified diseases of the oral soft tissues; Stricture and stenosis of esophagus; Dehydration; Conjunctivitis; Cataract; Phlebitis and thrombophlebitis of superficial veins of upper extremities; 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, 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; Chronic kidney disease Social History Tobacco Use Types Packs/Day Years Used Date Smoking Tobacco: Never Assessed Comments Unknown Sex and Gender Information Value Date Recorded Sex Assigned at Not on file Legal Sex Female 1:13 PM VISUAL AID EXPERT Gender Identity Not on file Sexual Orientation Not on file documented as of this encounter Plan of Treatment Not on file documented as of this encounter Visit Diagnoses Diagnosis Iron deficiency anemia due to chronic blood loss Iron deficiency anemia secondary to blood loss (chronic) Acute renal failure (HCC) Acute kidney failure, unspecified Hyposmolality and/or hyponatremia Cellulitis and abscess of upper arm and forearm Diaphragmatic hernia Diaphragmatic hernia without mention of obstruction or gangrene Hypothyroidism Unspecified hypothyroidism Mitral valve disorder Mitral valve disorders Other and unspecified diseases of the oral soft tissues Stricture and stenosis of esophagus Dehydration Conjunctivitis Unspecified conjunctivitis Cataract Unspecified cataract Phlebitis and thrombophlebitis of superficial veins of upper extremities 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
--- OUTSIDE RECORDS SUMMARY | 2024-06-27 02:00 | XMS_ITS | Encounter Summary ---
Author Organization [facility] Healthcare Address [address] [place] [address] Care Team Providers Care Geoduck Diver Name Role Phone Unavailable Primary Care Provider Unavailabl e Encounter Details Date Type Department Care Team (Late st Contact Info) Description 10/26/2008 10:05 AM CDT - 11/02/2008 11:59 PM CDT Hospital [place] [address] [address] Acute renal failure (HCC) Social History Tobacco Use Types Packs/Day Years Used Date Smoking Tobacco: Never Assessed Comments Unknown Sex and Gender Information Value Date Recorded Sex Assigned at Not on file Legal Sex Female 1:13 PM EXECUTIVE PASTRY CHEF Gender Identity Not on file Sexual Orientation Not on file documented as of this encounter Plan of Treatment Not on file documented as of this encounter Visit Diagnoses Diagnosis Acute renal failure (HCC) Acute kidney failure, unspecified documented in this encounter
--- OUTSIDE RECORDS SUMMARY | 2024-06-27 02:00 | XMS_ITS | Encounter Summary ---
Author Organization 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); Unspecified procedure as the cause of abnormal reaction of patient, or of later complication; Place of occurrence, home; Other disorders of arteries and arterioles; Hypothyroidism; Herpes zoster; Contact dermatitis and other eczema; Leukocytosis Social History Tobacco Use Types Packs/Day Years Used Date Smoking Tobacco: Never Assessed Comments Unknown Sex and Gender Information Value Date Recorded Sex Assigned at Not on file Legal Sex Female 1:13 PM PROBATE PARALEGAL Gender Identity Not on file Sexual Orientation Not on file documented as of this encounter Plan of Treatment Not on file documented as of this encounter Visit Diagnoses Diagnosis Infection and inflammatory reaction due to other vascular device, implant, and graft End-stage renal disease (CMS/HCC) (HCC) Cellulitis and abscess Cellulitis and abscess of unspecified site 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
--- OUTSIDE RECORDS SUMMARY | 2024-06-27 02:00 | XMS_ITS | Encounter Summary ---
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; Chronic kidney disease; Hypothyroidism Social History Tobacco Use Types Packs/Day Years Used Date Smoking Tobacco: Never Assessed Comments Unknown Sex and Gender Information Value Date Recorded Sex Assigned at Not on file Legal Sex Female 1:13 PM ELECTRIC POWER LINE REPAIRER Gender Identity Not on file Sexual Orientation Not on file documented as of this encounter Plan of Treatment Not on file documented as of this encounter Visit Diagnoses Diagnosis 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
--- OUTSIDE RECORDS SUMMARY | 2024-06-27 02:00 | XMS_ITS | Encounter Summary ---
Author Organization [facility] Healthcare Address [address] [place] [address] Care Team Providers Care Cytopathologist Name Role Phone Unavailable Primary Care Provider Unavailabl e Encounter Details Date Type Department Care Team (Late st Contact Info) Description 07/19/2009 3:35 PM TOOLROOM CHECKER - 07/21/2009 8:00 PM TOOLROOM CHECKER [place] [address] [address] Acute renal failure (HCC); Acidosis; Hyperpotassemia; Hypothyroidism; Anemia of other chronic disease; Hemorrhoids; Chronic kidney disease Social History Tobacco Use Types Packs/Day Years Used Date Smoking Tobacco: Never Assessed Comments Unknown Sex and Gender Information Value Date Recorded Sex Assigned at Not on file Legal Sex Female 1:13 PM TOOLROOM CHECKER Gender Identity Not on file Sexual Orientation Not on file documented as of this encounter Plan of Treatment Not on file documented as of this encounter Visit Diagnoses Diagnosis Acute renal failure (HCC) Acute kidney failure, unspecified Acidosis Hyperpotassemia Hypothyroidism Unspecified hypothyroidism Anemia of other chronic disease Hemorrhoids Chronic kidney disease Chronic kidney disease, unspecified documented in this encounter
--- OUTSIDE RECORDS SUMMARY | 2024-06-27 02:00 | XMS_ITS | Encounter Summary ---
Author Organization [facility] Healthcare Address [address] [place] [address] Care Team Providers Care Soil Science Professor Name Role Phone Unavailable Primary Care Provider Unavailabl e Encounter Details Date Type Department Care Team (Late st Contact Info) Description 12/04/2008 12:01 AM CDT - 01/02/2009 11:59 PM CDT Hospital [place] [address] [address] Acute renal failure (HCC) Social History Tobacco Use Types Packs/Day Years Used Date Smoking Tobacco: Never Assessed Comments Unknown Sex and Gender Information Value Date Recorded Sex Assigned at Not on file Legal Sex Female 1:13 PM MEDICAL FACILITIES SECTION DIRECTOR Gender Identity Not on file Sexual Orientation Not on file documented as of this encounter Plan of Treatment Not on file documented as of this encounter Visit Diagnoses Diagnosis Acute renal failure (HCC) Acute kidney failure, unspecified documented in this encounter
--- OUTSIDE RECORDS SUMMARY | 2024-06-27 02:00 | XMS_ITS | Encounter Summary ---
Author Organization [facility] Healthcare Address [address] [place] [address] Care Team Providers Care Licensed Weigher Name Role Phone Unavailable Primary Care Provider Unavailabl e Encounter Details Date Type Department Care Team (Late st Contact Info) Description 07/16/2006 2:20 PM CLERICAL TRANSCRIBER - 07/16/2006 11:59 PM CLERICAL TRANSCRIBER Hospital Encounter CLINCONTisha Goldman Social History Tobacco Use Types Packs/Day Years Used Date Smoking Tobacco: Never Assessed Comments Unknown Sex and Gender Information Value Date Recorded Sex Assigned at Not on file Legal Sex Female 1:13 PM CLERICAL TRANSCRIBER Gender Identity Not on file Sexual Orientation Not on file documented as of this encounter Plan of Treatment Not on file documented as of this encounter Visit Diagnoses Not on filedocumented in this encounter
--- OUTSIDE RECORDS SUMMARY | 2024-06-27 02:15 | XMS_ITS | Continuity of Care Document ---
Author Organization [facility] [facility] Address [address] [place] [address] Phone Care Team Providers Care Station Worker Name Role Phone Chet Burke MALDONADO Unavailable Unavailable Allergies, Adverse Reactions, Alerts Substance Reaction Status Criticality codeine Nausea Active No Information NITROFURANTOIN MACROCRYSTALLINE rash Active No Information nitrofurantoin rash Active No Informatio n tetracycline Rash Active No Information CEPHALEXIN MONOHYDRATE Rash Active No In formation Medications Medication Instructions Dosage Effective Dates (start - stop) Status Comments pravastatin 20 mg tablet TAKE 1 TABLET BY ORAL ROUTE EVERY DAY AT BEDTIME - Active Augmentin 875 mg-125 mg tablet take 1 tablet by oral route 2 times every day 1 tablet - Active keflex has made sick and not rash so more likely a side effect metoprolol tartrate 50 mg tablet take 1 Tablet by oral route 1 time every day with meals - Active metoprolol succinate ER 25 mg tablet,extended release 24 hr take 1 tablet by oral route every day 25 MG - Active levothyroxine 100 mcg tablet take 1 tablet by oral route every day 100 MCG - Active biotin 1,000 mcg chewable tablet Take 1 tablet by mouth once daily - Active acyclovir 200 mg capsule take 1 capsule by oral route daily - Active lisinopril 10 mg tablet take 1 tablet by oral route every day 10 MG - Active Vitamin B-12 1,000 mcg tablet take 1 by Oral route once 1 - Active Vitamin D3 2,000 unit tablet take 1 Tablet by Oral route every day 1 Tablet - Active Prograf 1 mg capsule [id number] in morning and 1 capsule in evening - Active Aspir-81 81 mg tablet,delayed release take 1 tablet (81MG) by oral route every day - Active Prolia 60 mg/mL subcutaneous syringe inject 1 milliliter by subcutaneous route every 6 months in the upper arm, upper thigh or abdomen 60 MG - Active pravastatin 20 mg tablet TAKE 1 TABLET BY ORAL ROUTE EVERY DAY AT BEDTIME - No Longer Active Advance Directives Directive Yes / No Effective Date File Name No Information Encounters Encounter Description Practice Location Reason(s) For Visit Diagnoses Date Provider Providers Copied on Encounter [facility], [address], [place], [place], [address] , tel: [phone] [facility] Internal Medicine No Information 0 Chet Turk. [address], [address] [place] [address], [id number], . tel: [phone] [facility], [address], [place], [place], [address] , tel: [phone] [facility] Medicine No Information 0 Chet Turk. [address], [address], [place], [place], [address], . tel:[phone] [facility], [address], [place], [place], [address] , tel: [phone] [facility] Internal Medicine No Information 9 Chet Turk. [address], [address], [place], [place], [address], [place]. tel:[phone] [facility], [address], [place], [place], [address] , tel: [phone] [facility] Internal Medicine Moderate pulmonary arterial systolic hypertensionNeck swellingVenous stasis ulcer of other part of lower leg with muscle involvement without evidence of necrosis with varicose veins, unspecified lateralityNon-pr essure chronic ulcer of other part of unspecified lower leg with muscle involvement without evidence of necrosisUrinary tract infection without hematuria, site unspecifiedKidne y transplant status 9 Chet Turk. [address], [address], [place], [place], [address], [place]. tel:[phone] Referring Provider: Burke Rosenberg, [address], [place], [address] . tel:[phone] [facility], [address], [place], [place], [address] , tel: [phone] [facility] Cellulitis of left upper extremitySwellin g of left upper extremity [phone] [facility] Loren. [address], [address], [place], [place], [address], [place]. tel:[phone] Referring Provider: Burke Rosenberg, [address], [place], [address] . tel:[phone] [facility], [address], [place], [place], [address] , [place] tel: [phone] [facility] Cellulitis of left upper extremity 8 Chet Turk. [address], [address], [place], [place], [address], [place]. tel:[phone] Referring Provider: Burke Rosenberg, [address], [place], [address] . tel:[phone] [facility], [address], [place], [place], [address] , [place] tel: [phone] [facility] Frontal sinusitis, unspecified chronicity 8 Chet Turk. [address], [address], [place], [place], [address], [place]. tel:[phone] Referring Provider: Burke Rosenberg, [address], [place], [address] . tel:[phone] [facility], [address], [place], [place], [address] , tel: [phone] [facility] Skin tear of left upper extremity 0 8 Fiorella Pimentel. [address], [address], [place], [place], [address], [place]. [phone] Referring Provider: [address], [place], [address] . tel:[phone] [facility], [address], [place], [place], [address] , [place] tel: [phone] [facility] No Information Chet Turk. [address], [address], [place], [place], [address], [place]. tel:[phone] [facility], [address], [place], [place], [address] , [place] tel: [phone] [facility] Hypertensive chronic kidney disease with stage 5 chronic kidney disease or end stage renal diseasePalpitati onAge-related osteoporosis without current pathological fractureScreenin g mammogram, encounter for Chet Turk. [address], [address], [place], [place], [address], [place]. [phone] Referring Provider: Burke Rosenberg, [address], [place], [address] . tel:[phone] [facility], [address], [place], [place], [address] , [place] tel: [phone] [facility] Diarrhea 5 Elizabeth Barker. [address] [facility], [address], [place], [place], [address], [place]. [phone] Referring Provider: [address], [place], [address] . tel:[phone] [facility], [address], [place], [place], [address] , [place] tel: [phone] [facility] Nasal fractureAnkle fracture, rightAbrasionFal l 4 Caleb Stone. [address] [facility], [address], [address]. tel:[phone] Referring Provider: [address] [place] [address], [address] . tel:[phone] [facility] [address] [place] [address], [id number] , tel: [phone] [facility] History of fall/At Risk For FallingScreening for unspecified conditionEnd stage renal diseaseKidney transplant statusUrge incontinenceHype rtensive kidney disease, unspecified, with chronic kidney diseaseOsteoporo sisHypothyroidis m 4 Chet Turk. [address], [address] [place] [address], [id number], [place]. tel:[phone] Referring Provider: [address] [place] [address], [address] . tel:[phone] [address] [address], [place], [place], [address] , [place] tel: [phone] [facility] Unspecified acquired hypothyroidismOs teoporosis 3 Chet Turk. [address], [address], [place], [place], [address], [place]. tel:[phone] Referring Provider: [address] [facility], [address] . tel:[phone] [address] [address], [place], [place], [address] , [place] tel: [phone] [facility] Unspecified acquired hypothyroidismId iopathic osteoporosisEnd stage renal diseaseHigh blood pressure with end-stage kidney diseaseHerpes zoster with other nervous system complications 3 Chet Turk. [address], [address], [place], [place], [address], [place]. tel:[phone] Referring Provider: [address], [place], [address] . tel:[phone] [facility], [address], [place], [place], [address] , [place] tel: [phone] [facility] Idiopathic osteoporosis 1 Chet Turk. [address], [address], [place], [place], [address], [place]. tel:[phone] Referring Provider: Burke Rosenberg, [address], [place], [address] . tel:[phone] [facility], [address], [place], [place], [address] , [place] tel: [phone] [facility] IDIOPATHIC OSTEOPOROSIS 1 Conversion Doctor. Brannon Carvalho, [place], [address], [place]. [facility], [address], [place], [place], [address] , [place] tel: [phone] [facility] CHRON KIDNEY DIS STAGE V 1 Chet Turk. [address], [address], [place], [place], [address], [place]. tel: [phone] [facility], [address], [place], [place], [address] , [place] tel: [phone] [facility] END STAGE RENAL DISEASEHYP KID NOS W CR KID VSCREEN FOR INFEC DIS NOS 0 Chet Turk. [address], [address], [place], [place], [address], [place]. tel: [phone] [facility], [address], [place], [place], [address] , [place] tel: [phone] [facility] HYPERTENSION NOSHYPOTHYROIDIS M NOSCHR KIDNEY DIS STAGE IVHY KID NOS W CR KID I-IV 0 Chet Turk. [address], [address], [place], [place], [address], [place]. tel:[phone] [facility], [address], [place], [address] , [place] tel: [phone] [facility] ARTERITIS NOSH ZOSTER NERV SYST NECHY HT/KD NOS I-IV W/O HFBONE & CARTILAGE DIS NOS 201 0 Chet Burke. [address], [address], [place], [place], [address], [place]. tel:[phone] Family History Family Member Type Diagnosis Age At Onset No Information Immunizations Vaccine Date Status Comments Fluzone High-Dose, high dose , preservative free administered Note: Alena beck ; Source: Public Agency Fluzone High-Dose, high dose , preservative free administered Source: New Immuniza tion Record Tdap administered Source: New Imm unization Record Payers Payer name Insurance type Covered alliance party ID Authoriza tion(s) MEDICARE MB [id number] [employer] CI [id number] MEDICARE MB [id number] [employer] [place] CI [id number] MEDICARE MB [id number] [employer] [place] [id number] Social History Type Description Quantity Date Captured Comments Sex Female Smoking Status No Information Chief Complaint And Reason For Visit No Information Reason For Referral Reason For Referral No Information Plan Of Treatment Date Type Action Status Future Order: Lab Order Vitamin D, 1,25 Dihydroxy ([id number]), Sent on: Sent Future Order: Lab Order TSH - Th yroid Stimulating Hormone ([id number]), Sent on: Sent History Of Present Illness Encounter Date Complaint History Of Prese nt Illness No Information Functional Status Date Functional Assessmen t No Information Instructions Date Instruction Additional Infor mation No Information Assessments Type Assessment Date No Information Patient Care Teams Name Effective Dates (start - stop) Status Members No Information
--- OUTSIDE RECORDS SUMMARY | 2024-06-27 02:15 | XMS_ITS | Patient Health Record ---
Author Organization [facility] Address [address] [facility] [address] [place], [place] [address] Care Team Providers Care Vegetable Farm Manager Name Role Phone Butch Vega MD Primary Care Provider Cullen Cope Unavailable [phone] Allergies Allergen (clinical drug ingredient) Drug/Non Drug Allergy documented on EMR Reaction Allergy Type Onset Date Status codeine Codeine (uncoded) Unknown Allergy Ac tive Keflex (uncoded) Unknown Allergy Act murtaza LetraCycline (uncoded) Unknown Allergy Active nitrofurantoin, macrocrystals / nitrofurantoin, monohydrate Macrobid (uncoded) Unknown Allergy Active Reason For Referral No Information Medications Medication SIG (Take, Route, Frequency, Duration) Notes Start Date End Date Status Levothyroxine Sodium 0.1 MG 1 tablet allyn ry morning on an empty stomach Orally QD for 30 day(s) Active Ondansetron 4 MG Orally PRN Ac tive amLODIPine Besylate 10 MG 1 tablet Orall y QD for 30 day(s) Active Proctozone-HC 2.5 % 1 application to aff ected area Rectal PRN for 30 day(s) Active Tums 3 tablet Orally QD f or 30 day(s) Active Renal Softgels 1 MG 1 capsule Orally QD for 30 day(s) Active Lisinopril 20 MG 1 tablet Orally BID for 30 day(s) Active Plan Of Treatment No Information Insurance Providers Payer Name Payer Address Payer Phone Subscriber Number Group Number Insured Name Patient Relationship to Insured Coverage Start Date Coverage End Date Medicare [place] [address] [place] [phone] [id number] Juliet Dunlap Self - patient is the insured [place] [employer] [address] [place] [address] [id number] Juliet Dunlap Self - patient is the insured
== END 2024-06-20 09:08 | disposition home or self-care (01) ==
PROVIDERS: PCP Family Medicine
DX: I63.50 Cerebral infarction due to unspecified occlusion or stenosis of unspecified cerebral artery (principal); J90 Pleural effusion, not elsewhere classified; I82.90 Acute embolism and thrombosis of unspecified vein; I70.203 Unspecified atherosclerosis of native arteries of extremities, bilateral legs; I11.0 Hypertensive heart disease with heart failure; I50.32 Chronic diastolic (congestive) heart failure; I25.10 Atherosclerotic heart disease of native coronary artery without angina pectoris; E78.5 Hyperlipidemia, unspecified; I27.20 Pulmonary hypertension, unspecified; E03.9 Hypothyroidism, unspecified
CPT/HCPCS: 36415; 80048; 83880; 84439; 84443; 84480; 85025; 85610

== ENCOUNTER 2024-06-24 09:12 | Outpatient (CLI) | payer MEDICARE, OTHER, SELFPAY ==
[2024-06-16 14:52] VITALS: BMI 22.6
--- NOTE | 2024-06-16 14:56 | PC.NURSE ---
Pre Radiology instructions Report to the outpatient [facility] on date __06/24/24___ at time ___7:30AM____ for procedure Time: __9:30AM__ YOU MAY BE MONITORED AT HOSPITAL FOR UP TO 4 HOURS AFTER YOUR PROCEDURE. A visitor will be allowed to accompany the patient into the hospital. You and your visitor will be asked to self-screen and do not enter if you have any COVID symptoms. A mask is OPTIONAL within the hospital. Patients are to have no food or drink 6 hours prior to procedure time Driving will be restricted after the procedure, you must have a person to drive you home. Labs will be drawn in preop area and once reviewed, you will be taken to radiology area for procedure. When the procedure is completed, you will be taken to outpatient where you will be monitored for several hours. You may have one visitor in this area. Other than holding anti-coagulants, patient may take other medication(s) as scheduled. Prior to your appointment date patients are instructed to hold anti-coagulants after discussing with ordering provider to stop. If unable to discontinue anti-coagulants please notify radiologist. ? No aspirin or warfarin (Coumadin) for 7 days prior to the procedure. ? No clopidogrel (Plavix), ticagrelor (Brilinta), prasugrel (Effient) or dabigatran (Pradaxa) for 5 days prior to the procedure. ? No rivaroxaban (Xarelto), apixaban (Eliquis), dipyridamole (Aggrenox or Persantine) or cilostazol (Pletal) for 2 days prior to the procedure. Medications to discontinue per physician: __ASPIRIN Date to take last dose: ____06/16/24 Please leave all valuables, including medications, at home the day of procedure. The hospital will not accept responsibility for valuables. Wear comfortable, loose fitting clothing.? Follow any additional instructions given to you from ordering provider. Telephone instructions given to ____PATIENT and asked if any additional questions and then verbalized understanding. Patient advised to call scheduling provider office or registration scheduling [phone] if any additional questions.
--- NOTE | ~2024-06-24 | US_ITS ---
EXAMINATION: US thoracentesis DATE: 06/24/2024 12:02 INDICATION: Left pleural effusion TECHNIQUE: The procedure and its risks and benefits were discussed with the patient. Potential risks discussed included bleeding, infection, and pneumothorax. The patient understood the risks and agreed to proceed. The skin was prepped and draped in sterile fashion. 1% lidocaine was used for local anes thesia. Under ultrasound guidance, a 5 Fr catheter with trochar was advanced into the left pleural ef fusion. Fluid was aspirated. The catheter was removed, and a dressing was applied. There were no imme diate complications. FINDINGS: Ultrasound images demonstrate a small left pleural effusion and the catheter within the fluid. IMPRESSION: 1. Successful ultrasound-guided thoracentesis yielding 500 mL of kyle-colored fluid. Reviewed, dictated and finalized at location A. ARA TARAKA
--- NOTE | ~2024-06-24 | XR_ITS ---
EXAMINATION: [id number] DATE: 06/24/2024 10:24 INDICATION: Status post left thoracentesis TECHNIQUE: frontal view of the chest was obtained. COMPARISON: Chest radiograph dated 03/14/2024 FINDINGS: Airspace opacity left lung base with blunting at the left costophrenic angle consistent with very sma ll residual left pleural effusion and associated basilar atelectasis and/or pneumonia. There is mild streaky atelectasis at the right lung base. Enlargement of the central pulmonary arteries consistent with pulmonary arterial hypertension. No pneumothorax or right-sided pleural effusion. Cardiomegaly. Dense mitral annular calcification. 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 IMPRESSION: 1. Very small residual left pleural effusion with associated left basilar atelectasis or pneumonia. 2. Cardiomegaly. Reviewed, dictated and finalized at location A. OLEUM GEOLOGY FACULTY MEMBER IMPRESSION: 1. Very small residual left pleural effusion with associated left basilar atele ctasis or pneumonia. 2. Cardiomegaly.
[2024-06-24 10:20] VITALS: BP 159/73; PULSE 70; RESP 20; O2SAT 98
[2024-06-24 10:50] VITALS: BP 158/64; PULSE 68; RESP 18; O2SAT 100
[2024-06-24 11:05] VITALS: PULSE 75
[2024-06-24] MEDS: lisinopriL 10 MG TABLET PO (11:05)
[2024-06-24] MEDS: METOPROLOL TARTRATE 25 MG TABLET 75 MG PO (11:05)
[2024-06-24 11:20] VITALS: BP 169/62; PULSE 70; RESP 18; O2SAT 99
[2024-06-24 11:50] VITALS: BP 133/107; PULSE 66; RESP 18; O2SAT 99
[2024-06-24 12:20] VITALS: BP 151/62; PULSE 64; RESP 20; O2SAT 97
== END 2024-06-24 12:26 | disposition home or self-care (01) ==
PROVIDERS: Radiology Diagnostic Radiology; PCP Family Medicine; Visit Provider Family Medicine
DX: J90 Pleural effusion, not elsewhere classified (principal); I51.7 Cardiomegaly
CPT/HCPCS: 32555; A9270